=== PATIENT | female | born 1955 | race African-American/Black ===

== ENCOUNTER 2019-10-29 10:00 | Emergency (ER) | payer MEDICARE, SELFPAY ==
[2019-10-29 10:10] VITALS: BP 140/75; PULSE 65; RESP 18; TEMP 36.9; O2SAT 100
--- NOTE | 2019-10-29 10:33 | ED.URI ---
HPI - URI/Sore Throat General Chief Complaint: Upper Respiratory Infection Stated Complaint: ears itching/runny nose/cough Time Seen by Provider: 10/29/19 10:33 Source: patient and RN notes reviewed Mode of arrival: ambulatory Limitations: no limitations History of Present Illness HPI Narrative: A 64 y/o female, who is a former smoker and nondrinker, presents to the ED with multiple, worsening, URI symptoms for the past 10d , over week. She reports a productive cough, itchy ears, sneezing, and rhinorrhea. She notes that her grandson who lives with her was recently dx with influenza A. She also notes that Sudafed has helped relieve her symptoms. She denies any fevers, vomiting, weight loss, CP ,focal weakness, calf pain/ edema and any other medical complaints at this time. The patient has a prior sinus CT years ago with Dr. Echols- showing mild sinus ethmoid disease; she had a noncontributory chest x-ray within the last year. MD elicited complaint: other (Multiple) Pertinent past history: COPD and asthma Onset (ago): week(s) (1) Consistency: progressively worsening Relieving factors: OTC cold medicine (Sudafed) Context: sick contacts (grandson) Associated symptoms: rhinorrhea, cough (productive) and other (itchy ears and sneezing) Treatments prior to arrival: cold medicine Related Data Home Medications Medication Instructions Recorded Confirmed Albuterol Neb Tx 10/29/19 Resp Inhaler 10/29/19 Vitamin C 10/29/19 aspirin 81 mg PO DAILY 10/29/19 10/29/19 guaifenesin [Mucinex] 1,200 mg PO Q12H 10/29/19 10/29/19 lisinopril-hydrochlorothiazide 1 tablet PO DAILY 10/29/19 10/29/19 omeprazole 20 mg PO DAILY 10/29/19 10/29/19 pseudoephedrine HCl [Sudafed] 30 mg PO Q4-6H PRN 10/29/19 10/29/19 Allergies Allergy/AdvReac Type Severity Reaction Status Date / Time No Known Allergies Allergy Unknown Verified 10/29/19 10:19 Review of Systems Review of Systems: Narrative: General/Constitutional: No weight loss,fever Eyes: N0: Redness,discharge Ears/Nose/Throat: No: Epistaxis,ear discharge. Reports itchy ears, rhinorrhea, and sneezing. Respiratory: Denies: Hemoptysis. Reports a productive cough. Gastrointestinal: No Vomiting, Bleeding-rectal Skin: No Lumps, eruption Neurologic: No Focal Weakness,Sz Hematologic: Denies: Petechiae/Purpura Psychiatric: No: Suicida ideationl All Other Systems: Reviewed and Negative PMFSH Past Medical History Medical History (Updated 10/29/19 @ 14:04 by Jasiel Bailey MD) Anemia Anxiety Arthritis Asthma Bilateral carpal tunnel syndrome Bronchitis COPD (chronic obstructive pulmonary disease) DDD (degenerative disc disease) Depression DM (diabetes mellitus) Emphysema, unspecified Endometriosis GERD (gastroesophageal reflux disease) H/O: HTN (hypertension) History of irregular heartbeat History of rectal polyps IBS (irritable bowel syndrome) MVP (mitral valve prolapse) Psoriasis Shingles Surgical History Surgical History (Updated 10/29/19 @ 10:54 by Daniel Granados) History of appendectomy History of bilateral carpal tunnel release History of cholecystectomy History of dilation and curettage History of hysterectomy History of local excision of skin lesion History of oophorectomy Rt. Hx of tubal ligation Social History Social History (Updated 10/29/19 @ 10:54 by Daniel Granados) Smoking status: Former smoker Second hand tobacco smoke exposure: Yes Exam Narrative: Exam Narrative: General Appearance: Well appearing, Well nourished EYE: PERRLA, Conjunctiva clear Ears: Auditory canal normal, TM normal Nose: Rhinorrhea, Mucousal erythema Mouth/Throat: MM moist, Uvula midline, Pharyngeal erythema Neck: Supple, No adenopathy Respiratory: No respiratory distress, Breath sounds equal, Clear to auscultation Cardiovascular: RRR, No JVD Musculoskeletal: Non tender, Normal strength Skin: Warm, Dry Neurological: A&O x3, CN II-XII intact Psychiatric: Normal mood, N
== END 2019-10-29 10:49 | disposition home or self-care (01) ==
PROVIDERS: Emergency Provider Emergency Medicine; PCP Family Medicine
DX: J01.90 Acute sinusitis, unspecified (principal); Z87.891 Personal history of nicotine dependence; M19.90 Unspecified osteoarthritis, unspecified site; J44.9 Chronic obstructive pulmonary disease, unspecified; E11.9 Type 2 diabetes mellitus without complications; N80.9 Endometriosis, unspecified; K21.9 Gastro-esophageal reflux disease without esophagitis; I10 Essential (primary) hypertension; I34.1 Nonrheumatic mitral (valve) prolapse
CPT/HCPCS: 99203; G0463

== ENCOUNTER 2021-01-06 09:16 | Observation (INO) | payer MEDICARE, MEDICAID, SELFPAY ==
[2021-01-06] VITALS (11 sets, daily range): BP systolic 115–157; BP diastolic 50–100; PULSE 67–76; RESP 16–25; TEMP 36.1–36.6; O2SAT 94–100; BMI 50.9
--- NOTE | ~2021-01-06 | XR_ITS ---
EXAMINATION: XR hip RT 2V w AP pelvis DATE: 01/06/2021 12:07 INDICATION: Right hip pain. TECHNIQUE: An anteroposterior view of the pelvis and 2 views of right hip were obtained. COMPARISON: CT abdomen and pelvis 06/26/2019 FINDINGS: Bone alignment is normal. No fracture. There is mild osteoarthritis of the hips. There is m oderate lumbar spondylosis. Osteitis pubis is noted. IMPRESSION: 1. Mild osteoarthritis of the hips. Reviewed, dictated and finalized at location A.
--- NOTE | ~2021-01-06 | MR_ITS ---
EXAMINATION: MR lumbar spine wo/w con DATE: 01/07/2021 10:20 INDICATION: Low back pain. TECHNIQUE: Magnetic resonance imaging (MRI) of the lumbar spine was performed without and with 20 mL MultiHance intravenous contrast. Sequences included sagittal T2-weighted FSE, sagittal T2-weighted FS FSE, and sagittal and axial T1-weighted FSE. Postcontrast sequences included axial T2-weighted FSE a nd axial and sagittal T1-weighted FS FSE. COMPARISON: Lumbar spine MRI 12/24/2016, chest 2 views 05/27/2019 FINDINGS: There is 11 degrees dextroscoliosis of thoracolumbar spine. There are small ribs at T12. L5 is a transitional segment. There is mild chronic height loss of L5 vertebral body posteriorly. There is 3 mm anterolisthesis of L2 on L3, L3 on L4, and L4 on L5. Intervertebral disc heights are normal. The distal spinal cord signal intensity is normal. The conus medullaris is at T12-L1. The following disc levels are specifically discussed: L1-L2: The disc is bulging. There is severe right and moderate left facet joint osteoarthritis. There is mild bilateral neural foraminal stenosis. There is mild central canal stenosis. L2-L3: The disc is bulging. There is severe bilateral facet joint osteoarthritis. There is mild bilat eral neural foraminal stenosis. There is mild central canal stenosis. L3-L4: The disc is bulging. There is severe bilateral facet joint osteoarthritis. There is moderate b ilateral neural foraminal stenosis. There is mild central canal stenosis. L4-L5: The disc is bulging. There is severe bilateral facet joint osteoarthritis. There is moderate b ilateral neural foraminal stenosis. There is moderate central canal stenosis with stenosis of the lat eral recesses, right worse than left. L5-S1: The disc does not extend beyond the endplate margin. There is no facet joint osteoarthritis. T here is no neural foraminal stenosis. There is no central canal stenosis. IMPRESSION: 1. Moderate lumbar spondylosis with interval improvement in central canal stenosis at L3-L4 and worse estuardo of central canal stenosis at L4-L5. Reviewed, dictated and finalized at location A. IMPRESSION: 1. Moderate lumbar spondylosis with interval improvement in central canal steno sis at L3-L4 and worsening of central canal stenosis at L4-L5.
--- NOTE | ~2021-01-06 | XR_ITS ---
EXAMINATION: XR lumbar spine 2-3V DATE: 01/06/2021 12:07 INDICATION: Back pain. TECHNIQUE: 3 views of lumbar spine were obtained. COMPARISON: Chest 2 views 05/27/2019 FINDINGS: There are 12 pairs of ribs. L5 is a transitional segment. There is 3 mm anterolisthesis of L3 on L4. There is 12 degrees dextroscoliosis of thoracolumbar spine. Vertebral body heights are norm al. There is mildly decreased disc height at L3-L4 and L4-L5. There are endplate osteophytes at most levels. There is multilevel severe facet joint osteoarthritis. There are surgical clips in right abdo men. IMPRESSION: 1. Mild lumbar spondylosis. 2. Thoracolumbar dextroscoliosis. Reviewed, dictated and finalized at location A.
--- NOTE | 2021-01-06 10:52 | PC.NURSE ---
PT'S FAMILY MEMBER OUT TO NURSES STATION TO ASK FOR PAIN MEDS FOR MOTHER. STILL AWAITING PROVIDER TO SIGN UP FOR PT. COLTON MENJIVAR RN MADE AWARE.
--- NOTE | 2021-01-06 11:40 | ED.GENADULT ---
HPI - General Adult General Chief complaint: Extremity Problem,Nontraumatic Stated complaint: R HIP PAIN Time Seen by Provider: 01/06/21 10:52 Source: patient History of Present Illness HPI narrative: Patient is a 65 y/o female complaining of right posterior hip pain and back pain starting yesterday. She describes her pain as aching and rates it as 8/10. She took Tylenol, which did not help. There is no alleviating or exacerbating factor. Her pain radiates to her right leg. She is able to move her right leg. She is not able to walk due to pain. Related Data Home Medications Medication Instructions Recorded Confirmed Vitamin C 10/29/19 aspirin 81 mg PO DAILY 10/29/19 10/29/19 duloxetine mg PO 01/06/21 [id number] INHALATION 01/06/21 [Trelegy Ellipta] losartan-hydrochlorothiazide tablet 01/06/21 omeprazole 01/06/21 Allergies Allergy/AdvReac Type Severity Reaction Status Date / Time No Known Allergies Allergy Unknown Verified 01/06/21 10:18 Review of Systems Constitutional: Constitutional: Denies chills, Denies fever(s), Denies headache(s) and Denies weakness Eyes: Eyes: Denies blurry vision ENT: Denies headache(s) and Denies neck pain Cardiovascular: Cardiovascular: Denies chest pain and Denies dyspnea Respiratory: Respiratory: Denies cough and Denies dyspnea Gastrointestinal: Gastrointestinal: Denies abdominal pain, Denies diarrhea, Denies nausea and Denies vomiting Genitourinary: Genitourinary: Denies hematuria and Denies dysuria Musculoskeletal: Musculoskeletal: Reports back pain, Denies neck pain and Reports other (right hip pain) Neurologic: Denies headache(s) and Denies weakness [facility] Past Medical History Medical History Anemia Anxiety Arthritis Asthma Bilateral carpal tunnel syndrome Bronchitis COPD (chronic obstructive pulmonary disease) DDD (degenerative disc disease) Depression DM (diabetes mellitus) Emphysema, unspecified Endometriosis GERD (gastroesophageal reflux disease) H/O: HTN (hypertension) History of irregular heartbeat History of rectal polyps IBS (irritable bowel syndrome) MVP (mitral valve prolapse) Psoriasis Shingles Surgical History Surgical History History of appendectomy History of bilateral carpal tunnel release History of cholecystectomy History of dilation and curettage History of hysterectomy History of local excision of skin lesion History of oophorectomy Rt. Hx of tubal ligation Social History Social History Smoking status: Former smoker Second hand tobacco smoke exposure: Yes Exam Const: General: no acute distress and well developed Orientation/consciousness: oriented to person, oriented to place, oriented to time and patient oriented x3 HENMT: Head: normocephalic Ears: external ears normal General nose exam: Normal external nose present Eyes: General: appearance normal, both eyes and all related structures Conjunctivae: conjunctivae normal Neck: Neck: normal visual inspection and full ROM Chest: Chest palpation & inspection: normal inspection of the chest and no tenderness Resp: Effort & Inspection: normal respiratory effort Auscultation: clear to auscultation bilaterally Cardio: Rate: regular rate Rhythm: regular rhythm GI: GI Palp: No abdominal tenderness and Yes Soft to palpation Skin: General skin exam: normal color and turgor normal Neuro: General: oriented to person, oriented to place, oriented to time and patient oriented x3 Cognition (Neuro): normal cognition Extrem: General: normal to inspection, full ROM and no pedal edema Psych: Appearance: grossly normal Mental Status: mental status grossly normal Affect: normal affect Course Reevaluation(s) Reevaluation #1: Rechecked. Patient feels slightly better. However, she is still not able
[2021-01-06] MEDS: CYCLOBENZAPRINE HCL 10 MG TABLET PO (11:49)
[2021-01-06] MEDS: KETOROLAC 15 MG/ML VIAL (*BKC) IV PUSH (12:28)
[2021-01-06 12:31] LABS: Basophils Percent Auto 0.3 % (0.2-1.2); Eosinophils Absolute Auto 0.1 K/mm3 (0-0.3); Eosinophils Percent Auto 0.5 % (0-4.4); Hematocrit 36.4 % (37.0-47.0); Hemoglobin 11.8 g/dL (12.0-15.0); Immature Granulocyte Absolute 0.04 K/mm3 (0.00-0.031); Immature Granulocyte Percent A 0.4 % (0-0.5); Lymphocytes Absolute Auto 1.85 K/mm3 (0.9-3.2); Lymphocytes Percent Auto 18.7 % (18.3-44.2); Mean Corpuscular HGB Conc 32.4 g/dl (32-36); Mean Corpuscular Hemoglobin 29.4 pg (26-34); Mean Corpuscular Volume 90.5 fl (80-100); Mean Platelet Volume 9.8 fl (7.4-10.4); Monocytes Absolute Auto 0.6 K/mm3 (0.1-0.6); Monocytes Percent Auto 5.6 % (2.6-8.5); Neutrophils Absolute Auto 7.4 K/mm3 (1.3-6.7); Neutrophils Percent Auto 74.5 % (45.5-73.1); Platelet Count Result 293 k/mm3 (150-375); Red Blood Count 4.02 M/mm3 (4.2-5.4); White Blood Count 9.9 K/mm3 (4.5-10.0)
[2021-01-06 12:42] LABS: Anion Gap 2 mmol/L (8-16); Blood Urea Nitrogen 16 mg/dL (7-17); Carbon Dioxide 32 mmol/L (22-30); Chloride 103 mmol/L (98-107); Estimated CRCL calculation 107 ml/min; Estimated Glomerular Filt Rate > 60; Glucose 118 mg/dL (65-105); Potassium 3.9 mmol/L (3.4-5.0); Sodium 137 mmol/L (137-145)
--- NOTE | 2021-01-06 14:49 | PC.NURSE ---
Pt son called for update on pt condition and POC.
--- NOTE | 2021-01-06 14:55 | PC.NURSE ---
Pt daughter called for update on pt condition and POC.
[2021-01-06] MEDS: HYDROcodone/acetaminophen (*CRX) 5-325 MG TABLET 1 TAB PO (15:09)
[2021-01-06] MEDS: predniSONE 20 MG TABLET 60 MG PO (15:10)
--- NOTE | 2021-01-06 16:38 | PC.NURSE ---
Nurse unable to receive report at this time, will follow up.
--- NOTE | 2021-01-06 17:19 | ADMGEN ---
This patient, Keegan Amaya, was admitted to Medical Room 340-01. Patient/family oriented to hospital policies and general routines including ID bracelet, bed and alarms, visiting hours, pain management, procedures, bathroom and other care routines, personal items, smoking policy, room service/diet, and visiting hours. Information on how to activate the Rapid Response Team has been discussed. Patient/Family are encouraged to report perceived risks to care and to ask questions if they do not understand what they are told or what they should do.
--- NOTE | 2021-01-06 20:01 | PM.IMHP ---
H&P: HPI History of Present Illness Date/Time: 01/06/21 20:01Thikassi is a 65-year-old obese female patient who has had some sciatica pain in the past. The patient stated that she was feeling some twinges in her back but not really any pain. However yesterday the patient carried and some groceries including large amount of water 48 bottles in a packet and she said that when she started to have some pain in her back. The patient also was recently started on duloxetine and was concerned that this was causing her problems. The duloxetine was causing her to feel nauseated as well. The patient stated that she only had 1 pill and does not feel like she wants to continue with the because it makes her sick to her stomach. She has a history of COPD as well but is not short of breath. The patient stated she really did take any medication for her lower back pain the patient came in today because of right posterior hip pain and back pain that started yesterday after she was caring in her groceries. She told ER that she took some Tylenol and it did help. The patient stated that she uses some kind muscle cream that helps her back in the past. The patient was able to move her leg and she was not having any incontinence. She is not able to walk to the pain.The patient was given tordal , Flexeril, prednisone, and [place] in the emergency room. the patient is being admitted for observation status is. date of service 01/06/2021 Chief Complaint: Intractable back pain Review of Systems Review of Systems: All systems reviewed & are unremarkable except as noted in HPI and below Constitutional: Constitutional: Reports as per HPI and Reports no additional constitutional complaints Eyes: Eyes: Reports as per HPI and Reports no additional eye complaints ENT: Reports system reviewed and no additional complaints, except as documented and Reports Normal hearing present Cardiovascular: Cardiovascular: Reports no additional cardiovascular complaints Respiratory: Respiratory: Reports no additional respiratory complaints and Reports no additional respiratory complaints Gastrointestinal: Gastrointestinal: Reports as per HPI and Reports no additional gastrointestinal complaints Musculoskeletal: Musculoskeletal: Reports no additional musculoskeletal complaints Integumentary/Breasts: Skin/Breast: Reports system reviewed and no additional complaints, except as docu and Reports as per HPI Neurologic: Reports system reviewed and no additional complaints, except as documented, Reports as per HPI and Reports Normal hearing present Psychiatric: Psychiatric: Reports no additional psychiatric complaints and Reports as per HPI Endocrine: Endocrine: Reports no additional endocrine complaints Hematologic/Lymphatic: Hematologic/Lymphatic: Reports no additional hematologic/lymphatic complaints Allergic/Immunologic: Allergic/Immunologic: Reports no additional allergic/immunologic complaints [facility] Past Medical History Medical History (Updated 01/06/21 @ 20:08 by Linda Baez NP) Anemia Anxiety Arthritis Asthma Bilateral carpal tunnel syndrome Bronchitis COPD (chronic obstructive pulmonary disease) DDD (degenerative disc disease) Depression DM (diabetes mellitus) Emphysema, unspecified Endometriosis GERD (gastroesophageal reflux disease) H/O: HTN (hypertension) History of irregular heartbeat History of rectal polyps IBS (irritable bowel syndrome) MVP (mitral valve prolapse) FAISAL treated with BiPAP Psoriasis Shingles Surgical History Surgical History History of appendectomy History of bilateral carpal tunnel release History of cholecystectomy History of dilation and curettage History of hysterectomy History of local excision of skin lesion History of oophorectomy Rt. Hx of tubal ligation Family History Family History (Updated 01/06/21 @ 20:09 by Linda Beaz NP) Father Malignant neoplasm of pro
[2021-01-06 21:28] LABS: Glucose Point of Care 189 (65-105)
[2021-01-06 21:38] LABS: Add Urine Microscopic? YES; Appearance Urine Cloudy (Clear); Bacteria Urine Trace /hpf; Bilirubin Urine Negative (Negative); Blood Urine Negative (Negative); Color Urine Straw (Yellow); Glucose Urine UA Negative (Negative); Ketones Urine Negative (Negative); Leukocyte Esterase Ur Negative LEU/UL (Negative); Nitrate Urine Negative (Negative); Protein Urine Negative (Negative); RBC Urine 0-2 /hpf (0-2); Specific Grav Ur 1.006 (1.001-1.035); Squamous Epithelial Cell Urine Many /hpf (Few); Urobilinogen Urine Negative mg/dL (<2.0)
[2021-01-07 03:21] VITALS: PULSE 66; RESP 19; O2SAT 93
[2021-01-07 04:30] VITALS: BP 149/86; PULSE 78; RESP 18; TEMP 36.1; O2SAT 94
[2021-01-07 06:33] LABS: Basophils Percent Auto 0.1 % (0.2-1.2); Eosinophils Percent Auto 0.1 % (0-4.4); Hematocrit 34.6 % (37.0-47.0); Immature Granulocyte Absolute 0.03 K/mm3 (0.00-0.031); Immature Granulocyte Percent A 0.3 % (0-0.5); Lymphocytes Absolute Auto 1.39 K/mm3 (0.9-3.2); Mean Corpuscular HGB Conc 31.8 g/dl (32-36); Mean Corpuscular Hemoglobin 29.2 pg (26-34); Mean Corpuscular Volume 91.8 fl (80-100); Mean Platelet Volume 10.1 fl (7.4-10.4); Monocytes Absolute Auto 0.6 K/mm3 (0.1-0.6); Neutrophils Absolute Auto 7.3 K/mm3 (1.3-6.7); Neutrophils Percent Auto 78.5 % (45.5-73.1); Platelet Count Result 285 k/mm3 (150-375); Red Blood Count 3.77 M/mm3 (4.2-5.4); Red Cell Distribution Width 14.8 % (11.5-14.5); White Blood Count 9.3 K/mm3 (4.5-10.0)
[2021-01-07 06:51] LABS: Alanine Aminotransferase 12 U/L (4-35); Albumin Level 3.6 g/dL (3.5-5.1); Alkaline Phosphatase 115 U/L (38-126); Anion Gap 4 mmol/L (8-16); Aspartate Amino Transferase 20 U/L (14-36); Bilirubin,Total 0.2 mg/dL (0.2-1.3); Blood Urea Nitrogen 17 mg/dL (7-17); CRP 4.1 mg/dL (<1.0); Calcium 9.2 mg/dL (8.4-10.2); Carbon Dioxide 29 mmol/L (22-30); Chloride 104 mmol/L (98-107); Estimated CRCL calculation 124 ml/min; Estimated Glomerular Filt Rate > 60; Glucose 136 mg/dL (65-105); Magnesium 1.9 mg/dL (1.6-2.3); Potassium 3.9 mmol/L (3.4-5.0); Sodium 137 mmol/L (137-145)
[2021-01-07 06:59] LABS: Hemoglobin A1C 5.8 % (<5.7)
[2021-01-07 07:40] LABS: Vitamin D 25 Hydroxy 18.6 ng/mL
[2021-01-07] MEDS: FLUTICASONE/UMECLIDIN/VILANTER 100-62.5-25 MCG ELLIPTA 1 PUFF INHALATION (07:45)
[2021-01-07 07:54] LABS: Thyroid Stimulating Hormone Reflex 0.328 uIU/mL (0.465-4.68)
[2021-01-07 08:22] LABS: Glucose Point of Care 115 (65-105)
[2021-01-07 10:17] LABS: Free T4 Free Thyroxine Reflex 0.77 ng/dL (0.78-2.19)
[2021-01-07] MEDS: hydroCHLOROthiazide 12.5 MG CAPSULE PO (10:24)
[2021-01-07] MEDS: LOSARTAN POTASSIUM 100 MG TABLET PO (10:24)
[2021-01-07] MEDS: PANTOPRAZOLE 40 MG TABLET PO (10:24)
[2021-01-07] MEDS: HYDROcodone/acetaminophen (*CRX) 5-325 MG TABLET 1 TAB PO (10:24)
[2021-01-07] MEDS: ASPIRIN 81 MG ENTERIC TABLET PO (10:24)
[2021-01-07] MEDS: predniSONE 20 MG TABLET 60 MG PO (10:25)
[2021-01-07 11:55] LABS: Glucose Point of Care 100 (65-105)
[2021-01-07 14:00] VITALS: BP 148/86; PULSE 70; RESP 18; TEMP 35.7; O2SAT 100
--- NOTE | 2021-01-07 16:49 | PM.DS ---
DS: Admitting Diagnosis Admitting Diagnosis Admitting Diagnosis: low back stain/siatica DS: Discharge Diagnosis Discharge Diagnosis (1) Right sided sciatica: Code(s): M54.31 - Sciatica, right side Status: Acute (2) FAISAL treated with BiPAP: Code(s): G47.33 - Obstructive sleep apnea (adult) (pediatric) Status: Chronic (3) Anemia: Code(s): D64.9 - Anemia, unspecified Status: Chronic (4) Anxiety: Code(s): F41.9 - Anxiety disorder, unspecified Status: Chronic (5) COPD (chronic obstructive pulmonary disease): Code(s): J44.9 - Chronic obstructive pulmonary disease, unspecified Status: Chronic (6) Depression: Code(s): F32.9 - Major depressive disorder, single episode, unspecified Status: Chronic (7) GERD (gastroesophageal reflux disease): Code(s): K21.9 - Gastro-esophageal reflux disease without esophagitis Status: Chronic (8) H/O: HTN (hypertension): Code(s): Z86.79 - Personal history of other diseases of the circulatory system Status: Chronic (9) Low back strain: Code(s): S39.012A - Strain of muscle, fascia and tendon of lower back, initial encounter Status: Acute DS: Summary Hospital Course Hospital Course: Patient is a 65-year-old female with a history of borderline diabetes, sciatica, sleep apnea, and hypertension who presented emergency room for hip and back pain starting the day prior. The patient states that the day prior she was caring in 48 bottles of water when she felt her back pull and strain. She could not tolerate the pain so she came into the emergency room. She had associated symptoms of sciatica down her right leg which is unchanged. She had no new symptoms of numbness or tingling or any bowel or bladder incontinence. In the ER her vitals were temperature 36.6? C, pulse 76, respiratory rate 16, blood pressure 145/90, pulse ox 99 on room air. Initial white blood cell count 9.9, hemoglobin 11.8, hematocrit 36.4, platelets 293. BMP relatively within normal limits. Patient had a hip x-ray showed mild osteoarthritis. Lumbar spine x-ray showed mild lumbar spondylosis as well as thoracolumbar dextroscoliosis. Patient was started on prednisone but because of her pain, she was admitted to the hospital. There is an MRI of her lumbar spine which showed moderate lumbar spondylosis with interval improvement central canal stenosis at L3-L4 and worsening central canal stenosis of L4-L5 which is characterized as moderate. The next day she was feeling much better. She saw PT and OT and was able to walk down the [place] without much pain. She had a little tingling to her right leg which she says is chronic and unchanged. She says that she has hurt her back like this in the past and has used cream which helped her prior. I reviewed back stretching exercises and to not lift so many groceries at once. She did not feel like she needed additional physical therapy and PT agreed. He is going to take the Medrol Dosepak and follow up with her primary care physician. She was also found to be deficient in vitamin-D while hospitalized and this was supplemented. Her TSH was low as was her T4. Could be due to acute illness, I recommend she repeat this in 6 weeks with her primary care physician and the order has been placed. Overall, the patient was feeling much better and ready for discharge. She was educated about the worrisome signs and symptoms come back to emergency room for was discharged stable condition. Status at Discharge Functional status at discharge: independent ambulation Overall status at discharge: patient is back to baseline Time Spent with Patient Time attestation: Total time spent providing and/or coordinating discharge services:40 min Time spent: Greater than 30 minutes Exam Narrative: Exam Narrative: General: Well developed well nourished patient in NAD HEENT: normocephalic Neck: supple Neuro: Alert and orient
== END 2021-01-07 16:11 | disposition home or self-care (01) ==
LOC: ANHED 10:52 → ANH3MED 15:58
PROVIDERS: Nurse Practitioner; Physician Assistant; Admitting Provider Family Medicine; Emergency Provider Emergency Medicine; PCP Internal Medicine; Visit Provider Internal Medicine
DX: M54.31 Sciatica, right side (principal); S39.012A Strain of muscle, fascia and tendon of lower back, initial encounter; X50.0XXA Overexertion from strenuous movement or load, initial encounter; G47.33 Obstructive sleep apnea (adult) (pediatric); D64.9 Anemia, unspecified; E66.9 Obesity, unspecified; F41.9 Anxiety disorder, unspecified; F32.9 Major depressive disorder, single episode, unspecified; I10 Essential (primary) hypertension; K21.9 Gastro-esophageal reflux disease without esophagitis; J44.9 Chronic obstructive pulmonary disease, unspecified; R73.03 Prediabetes; M47.816 Spondylosis without myelopathy or radiculopathy, lumbar region; M16.0 Bilateral primary osteoarthritis of hip; Z68.43 Body mass index [BMI] 50.0-59.9, adult; Z87.891 Personal history of nicotine dependence
CPT/HCPCS: 36415; 72100; 72158; 73502; 80048; 80053; 81001; 82306; 82948; 83036; 83735; 84439; 84443; 85025; 86140; 96374; 97161; 97165; 99285; A9270; A9577; G0378; J1885; J7512

== ENCOUNTER → 2021-03-17 12:17 | Outpatient (CLI) | payer MEDICARE, MEDICAID, SELFPAY ==
--- NOTE | ~2021-03-17 | DEXA_ITS ---
Bone Density Report Name: Keegan Amaya Age: 65 Sex: Female Ethnicity: Black Date of : 1955 Indication: postmenopausal; screening for osteoporosis; asthma or emphysema; hysterectomy; Referring Provider: EliseTracy Study: Bone densitometry was performed. Exam Date: March 17, 2021 Accession number: [id number] Bone Density: Region BMD T-score Z-score Classification AP Spine (L1-L4) 1.321 2.5 3.5 Normal Femoral Neck (Left) 1.088 2.2 2.3 Normal Total Hip (Left) 1.318 3.1 2.8 Normal Femoral Neck (Right) 1.035 1.7 1.9 Normal Total Hip (Right) 1.194 2.1 2.0 Normal Total Hip Mean 1.256 2.6 2.4 Normal World Health Organization criteria for BMD impression classify patients as: Normal (T-score at or above -1.0), Osteopenia (T-score between -1.0 and -2.5), or Osteoporosis (T-score at or below -2.5). 10-year Fracture Risk: FRAX not reported because: All T-scores for Spine Total, Hip Total, Femoral Neck at or above -1.0 Clinical Information Provided by Patient: Has used the following medications: Vitamin D Has the following medical conditions: Asthma or Emphysema, Hysterectomy Menopause Age: 55 No regular weight bearing exercise Drinks caffeinated beverages Onset of menses at age 12 Number of children 5 Impression: The patient has normal bone mass. Discussion: BONE DENSITY IS ABOVE THE MINIMUM DESIRABLE LEVEL AT ALL SKELETAL SITES TESTED. This patient?s bone mineral density is above the minimum desirable level (T-score -1.0 or better) at all sites measured. The patient should follow a healthful lifestyle (good nutrition with adequate calcium and vitamin D, and appropriate weight-bearing exercise). Follow-Up: Consider repeating this study in 5 years or sooner if there is some new clinical indication. Reported by: [facility] on 03/17/2021 12:57:00 PM. Reviewed, dictated and finalized at location AJacquelyn COOLEY
== END ==
PROVIDERS: PCP Internal Medicine; Visit Provider Internal Medicine
DX: Z78.0 Asymptomatic menopausal state (principal)
CPT/HCPCS: 77080

== ENCOUNTER 2021-05-16 12:04 | Emergency (ER) | payer MEDICARE, MEDICAID, SELFPAY ==
[2021-05-16 12:14] VITALS: BP 137/81; PULSE 75; RESP 18; TEMP 36.6; O2SAT 98
[2021-05-16 12:16] VITALS: BP 137/81; PULSE 75; RESP 18; TEMP 36.6; O2SAT 98
--- NOTE | 2021-05-16 13:08 | ED.GENADULT ---
HPI - General Adult General Chief complaint: Unspecified Stated complaint: tasting blood in mouth Time Seen by Provider: 05/16/21 12:57 Source: patient and RN notes reviewed Mode of arrival: ambulatory Limitations: no limitations History of Present Illness HPI narrative: Patient presents today complaining that she is tasting blood in her mouth over the last 2 months. States she believed that she has bad sinuses . States the blood in her mouth is most prominent in the mornings. Denies epistaxis. Denies painful teeth. States she wears a CPAP at night and does have humidification for it. States she drinks lots of water. She is not on a blood thinner. During the 2 months that she has been tasting blood in her mouth she has not been evaluated previously. MD complaint: Tasting blood Related Data Home Medications Medication Instructions Recorded Confirmed aspirin 81 mg PO DAILY 10/29/19 01/06/21 Trelegy Ellipta 100 inh INHALATION DAILY 01/06/21 01/06/21 duloxetine 30 mg PO DAILY 01/06/21 01/06/21 losartan-hydrochlorothiazide 12.5 tablet PO DAILY 01/06/21 01/06/21 omeprazole 20 mg PO DAILY 01/06/21 01/06/21 albuterol sulfate INHALATION 05/16/21 escitalopram oxalate mg 05/16/21 gabapentin 05/16/21 Allergies Allergy/AdvReac Type Severity Reaction Status Date / Time No Known Allergies Allergy Unknown Verified 01/06/21 10:18 Review of Systems Review of Systems: CONSTITUTIONAL: Denies body aches, fever, chills, or sweats. EYES: Denies visual changes, redness, or discharge. ENT: Denies rhinorrhea, congestion, sore throat, or otalgia. Tasting blood in her mouth CARDIOVASCULAR: Denies chest pain, palpitations, or edema. RESPIRATORY: Denies cough or dyspnea. GASTROINTESTINAL: Denies abdominal pain, nausea, vomiting, or diarrhea. GENITOURINARY: Denies dysuria or hematuria. SKIN: Denies rash, itching, or wounds. MUSCULOSKELETAL: Denies back pain, joint pain, or myalgia. NEUROLOGIC: Denies headache, numbness, tingling, or weakness. PSYCH: Denies depression or anxiety. [facility] Past Medical History Medical History Anemia Anxiety Arthritis Asthma Bilateral carpal tunnel syndrome Bronchitis COPD (chronic obstructive pulmonary disease) DDD (degenerative disc disease) Depression DM (diabetes mellitus) Emphysema, unspecified Endometriosis GERD (gastroesophageal reflux disease) H/O: HTN (hypertension) History of irregular heartbeat History of rectal polyps IBS (irritable bowel syndrome) MVP (mitral valve prolapse) FAISAL treated with BiPAP Psoriasis Shingles Surgical History Surgical History History of appendectomy History of bilateral carpal tunnel release History of cholecystectomy History of dilation and curettage History of hysterectomy History of local excision of skin lesion History of oophorectomy Rt. Hx of tubal ligation Family History Family History Father Malignant neoplasm of prostate Mother Hypertension Diabetes mellitus Social History Social History Social History: the patient is . The patient initially had 5 children but 1 14 hours after due to placenta abruption. The patient is disabled. She desires to have her daughter is a durable power family law attorney for healthcare. She would like to be a full code. The patient used marijuana in the past but does not anymore and she used to smoke cigarettes as well but quit. She does not use any alcohol or illicit drugs. Smoking status: Former smoker Second hand tobacco smoke exposure: Yes Alcohol intake: never Substance use: never Substance use type: does not use Gender identity (if verbalized by the patient): Female Sexual Orientation (if Verbalized by the Patient): Straight or He
== END 2021-05-16 13:15 | disposition home or self-care (01) ==
PROVIDERS: Emergency Provider Nurse Practitioner; PCP Internal Medicine
DX: R04.0 Epistaxis (principal); Z87.891 Personal history of nicotine dependence; M19.90 Unspecified osteoarthritis, unspecified site; J44.9 Chronic obstructive pulmonary disease, unspecified; E11.9 Type 2 diabetes mellitus without complications; N80.9 Endometriosis, unspecified; K21.9 Gastro-esophageal reflux disease without esophagitis; I10 Essential (primary) hypertension; I34.1 Nonrheumatic mitral (valve) prolapse; Z79.82 Long term (current) use of aspirin
CPT/HCPCS: 99211; G0463

== ENCOUNTER → 2021-08-25 07:50 | Outpatient (CLI) | payer MEDICARE, MEDICAID, SELFPAY ==
--- NOTE | ~2021-08-25 | US_ITS ---
EXAMINATION: US right upper quadrant EXAM DATE: 08/25/2021 08:17 INDICATION: Epigastric pain TECHNIQUE: Multiple grayscale and Doppler images of the abdomen right upper quadrant were obtained (b y a technologist who performed the scan) and subsequently reviewed. There is no prior study for byron little. FINDINGS: The pancreatic head and body are normal in appearance. The pancreatic tail is not visualized. Poor acoustic window to evaluate the liver but no definite focal lesions identified. There is no evidence of intrahepatic biliary duct dilation. Portal venous flow was seen in the hepatopedal, normal direc tion and has normal Doppler waveform. No right-sided hydronephrosis. Common bile duct measures 5 mm, which is normal. The gallbladder fossa is unremarkable. IMPRESSION: 1. Unremarkable abdominal ultrasound exam. Reviewed, dictated and finalized at location D. Y STITCHER
--- NOTE | ~2021-08-25 | MM_ITS ---
EXAMINATION: MM screening amy BI w gunjan HISTORY: Screening mammogram TECHNIQUE: Craniocaudal and mediolateral oblique 3-D tomosynthesis images were obtained and synthetic 2-D images were generated. CAD analysis was submitted and interpreted. COMPARISON: No prior mammogram is available for comparison at this institution. BREAST PARENCHYMAL COMPOSITION: The breasts are almost entirely fatty. FINDINGS: RIGHT BREAST: There are asymmetries in the middle and posterior third of the breast in line with the nipple axis on the mediolateral oblique view at 11.1 cm and 16.5 cm depth. LEFT BREAST: There is no evidence of suspicious mass, calcification, or architectural distortion to s uggest malignancy. IMPRESSION: 1. Right breast asymmetries which may represent the patient's baseline however no comparison is curre ntly available. 2. Comparison with prior mammograms is necessary. BI-RADS Category 0: Incomplete: Needs comparison with prior mammograms. Reviewed, dictated and finalized at location A. DIE MAKER IMPRESSION: 1. Right breast asymmetries which may represent the patient's baseline however no comparison is currently available. 2. Comparison with prior mammograms is necessary. BI-RADS Category 0: Incomplete: Needs comparison with prior mammograms.
== END ==
PROVIDERS: PCP Internal Medicine; Visit Provider Internal Medicine
DX: Z12.31 Encounter for screening mammogram for malignant neoplasm of breast (principal); R10.13 Epigastric pain; R92.8 Other abnormal and inconclusive findings on diagnostic imaging of breast
CPT/HCPCS: 76705; 77063; 77067

== ENCOUNTER 2022-01-12 00:06 | Day surgery (SDC) | payer MEDICARE, MEDICAID, SELFPAY ==
[2021-12-28 15:07] VITALS: BMI 52.0
[2022-01-12 11:47] VITALS: BP 166/77; PULSE 77; RESP 18; TEMP 36.4; O2SAT 99
[2022-01-12] MEDS: LACTATED RINGERS 1,000 ML 150 ML IV CONT (12:00)
--- NOTE | 2022-01-12 12:48 | WPDANESEPPF ---
Anes - Initial Pre Proc Eval Procedure: Operation Date: 01/12/22 13:00 Proposed Procedures p Esophagogastroduodenoscopy - Brian Watt MD Date/Time: 01/12/22 12:48 Surgeon: Brian Watt MD Pre Op Diagnosis: GERD Patient Data Age: 66 Gender: F Height: 1.57 m Weight: 129 kg Last Vital Signs Temp 97.5 F L 01/12/22 11:47 Pulse 77 01/12/22 11:47 Resp 18 01/12/22 11:47 BP 166/77 H 01/12/22 11:47 Pulse Ox 99 01/12/22 11:47 Allergies Allergy/AdvReac Type Severity Reaction Status Date / Time No Known Allergies Allergy Unknown Verified 01/12/22 11:47 Home Medications Medication Instructions Recorded Confirmed Type aspirin 81 mg PO DAILY 10/29/19 12/28/21 History Trelegy Ellipta 100 inh INHALATION DAILY 01/06/21 12/28/21 History losartan-hydrochlorothiazide 12.5 tablet PO DAILY 01/06/21 12/28/21 History omeprazole 20 mg PO DAILY 01/06/21 12/28/21 History ergocalciferol (vitamin D2) 1,250 mcg PO WEEKLY #4 cap 01/07/21 12/28/21 Rx albuterol sulfate 2 puff INHALATION PRN 05/16/21 12/28/21 History gabapentin 100 mg PO DAILY 05/16/21 12/28/21 History Vitamin D3 1 tab-cap PO DAILY 12/28/21 12/28/21 History Patient hx anesthesia problems: none Family hx anesthesia problems: none Results Review: All pre-operative results and documents have been reviewed as part of the pre-operative evaluation. [facility] Past Medical History Medical History (Updated 10/29/21 @ 10:59 by Brian Watt MD) Anemia Anxiety Arthritis Asthma Bilateral carpal tunnel syndrome Bronchitis Colon cancer screening COPD (chronic obstructive pulmonary disease) DDD (degenerative disc disease) Depression DM (diabetes mellitus) Emphysema, unspecified Endometriosis Epigastric pain GERD (gastroesophageal reflux disease) H/O: HTN (hypertension) History of irregular heartbeat History of rectal polyps IBS (irritable bowel syndrome) MVP (mitral valve prolapse) FAISAL treated with BiPAP Psoriasis Shingles Surgical History Surgical History History of appendectomy History of bilateral carpal tunnel release History of cholecystectomy History of dilation and curettage History of hysterectomy History of local excision of skin lesion History of oophorectomy Rt. Hx of tubal ligation Family History Family History Father Malignant neoplasm of prostate Mother Hypertension Diabetes mellitus Sibling Family history of elevated blood lipids Family history of diabetes mellitus in first degree relative Father Family history of diabetes mellitus in first degree relative Patient's father is Other Family history of malignant neoplasm of cervix Family history of malignant neoplasm of male breast Social History Social History Social History: the patient is . The patient initially had 5 children but 1 14 hours after due to placenta abruption. The patient is disabled. She desires to have her daughter is a durable power trademark attorney for healthcare. She would like to be a full code. The patient used marijuana in the past but does not anymore and she used to smoke cigarettes as well but quit. She does not use any alcohol or illicit drugs. Smoking packs per day: 2 Smoking cigarettes per day: 40.0 Years smoked: 30 Smoking pack-years: 60.00 Smoking status: Former smoker Second hand tobacco smoke exposure: Yes Alcohol intake: never Substance use: never Substance use type: does not use Gender identity (if verbalized by the patient): Female Sexual Orientation (if Verbalized by the Patient): Straight or Heterosexual Spiritual care concerns: No Anes - Eval Final PreProcedure Day of Procedure 01/12/22 12:48 Patient weight: super morbidly obese
--- NOTE | 2022-01-12 13:02 | PM.HPGS ---
History of Present Illness History of Present Illness Consent: Risks, benefits, and alternatives have been discussed and questions answered. Patient agrees to proceed with procedure. Chief complaint: GERD Narrative: Keegan Amaya is a 66 year old female with epigastric pain and gerd, using omeprazole and tums as needed. She was treated in the past for H pylori. Review of Systems Constitutional: Constitutional: Denies headache(s) and Denies weakness Eyes: Eyes: Denies blurry vision ENT: Reports Normal hearing present, Denies headache(s) and Denies neck pain Cardiovascular: Cardiovascular: Denies chest pain and Denies dyspnea Respiratory: Respiratory: Denies dyspnea Gastrointestinal: Gastrointestinal: Reports no additional gastrointestinal complaints Genitourinary: Genitourinary: Denies dysuria Musculoskeletal: Musculoskeletal: Denies neck pain Integumentary/Breasts: Skin/Breast: Denies dry skin Neurologic: Reports Normal hearing present, Denies headache(s) and Denies weakness Psychiatric: Psychiatric: Denies anxiety Endocrine: Endocrine: Denies change in body appearance Hematologic/Lymphatic: Hematologic/Lymphatic: Denies easy bleeding Allergic/Immunologic: Allergic/Immunologic: Denies urticaria PMF Past Medical History Medical History (Updated 10/29/21 @ 10:59 by Brian Watt MD) Anemia Anxiety Arthritis Asthma Bilateral carpal tunnel syndrome Bronchitis Colon cancer screening COPD (chronic obstructive pulmonary disease) DDD (degenerative disc disease) Depression DM (diabetes mellitus) Emphysema, unspecified Endometriosis Epigastric pain GERD (gastroesophageal reflux disease) H/O: HTN (hypertension) History of irregular heartbeat History of rectal polyps IBS (irritable bowel syndrome) MVP (mitral valve prolapse) FAISAL treated with BiPAP Psoriasis Shingles Surgical History Surgical History History of appendectomy History of bilateral carpal tunnel release History of cholecystectomy History of dilation and curettage History of hysterectomy History of local excision of skin lesion History of oophorectomy Rt. Hx of tubal ligation Family History Family History Father Malignant neoplasm of prostate Mother Hypertension Diabetes mellitus Sibling Family history of elevated blood lipids Family history of diabetes mellitus in first degree relative Father Family history of diabetes mellitus in first degree relative Patient's father is Other Family history of malignant neoplasm of cervix Family history of malignant neoplasm of male breast Social History Social History Social History: the patient is . The patient initially had 5 children but 1 14 hours after due to placenta abruption. The patient is disabled. She desires to have her daughter is a durable power staff attorney for healthcare. She would like to be a full code. The patient used marijuana in the past but does not anymore and she used to smoke cigarettes as well but quit. She does not use any alcohol or illicit drugs. Smoking packs per day: 2 Smoking cigarettes per day: 40.0 Years smoked: 30 Smoking pack-years: 60.00 Smoking status: Former smoker Second hand tobacco smoke exposure: Yes Alcohol intake: never Substance use: never Substance use type: does not use Gender identity (if verbalized by the patient): Female Sexual Orientation (if Verbalized by the Patient): Straight or Heterosexual Spiritual care concerns: No Meds Home Medications and Allergies Home Medications Medication Instructions Recorded Confirmed Type aspirin 81 mg PO DAILY 10/29/19 12/28/21 History Trelegy Ellipta 100 inh INHALATION DAILY 01/06/21 12/28/21 History losartan-hydrochlorot
[2022-01-12 13:24] VITALS: BP 107/54; PULSE 79; RESP 19; O2SAT 98
[2022-01-12 13:34] VITALS: BP 123/64; PULSE 69; RESP 22; O2SAT 100
[2022-01-12 13:44] VITALS: BP 120/59; PULSE 68; RESP 18; O2SAT 99
== END 2022-01-12 13:54 | disposition home or self-care (01) ==
PROVIDERS: PCP Internal Medicine; Visit Provider Internal Medicine Gastroenterology
PROC: 0DJ08ZZ Inspection of Upper Intestinal Tract, Via Natural or Artificial Opening Endoscopic (ICD-10-PCS; CPT 43235; principal; 2022-01-12 13:00)
DX: K21.9 Gastro-esophageal reflux disease without esophagitis (principal); K29.50 Unspecified chronic gastritis without bleeding; I10 Essential (primary) hypertension; I34.1 Nonrheumatic mitral (valve) prolapse; E11.9 Type 2 diabetes mellitus without complications; J44.9 Chronic obstructive pulmonary disease, unspecified; L40.9 Psoriasis, unspecified; G47.33 Obstructive sleep apnea (adult) (pediatric); F41.9 Anxiety disorder, unspecified; F32.A Depression, unspecified; Z87.891 Personal history of nicotine dependence; Z86.010 Personal history of colon polyps
CPT/HCPCS: 43239; 87081; 88305; 88342; J2704; J7120

== ENCOUNTER → 2022-01-14 09:15 | Outpatient (CLI) | payer MEDICARE, MEDICAID, SELFPAY ==
--- NOTE | ~2022-01-14 | MM_ITS ---
EXAMINATION: MM diagnostic amy RT w gunjan HISTORY: Right breast pain. Right breast asymmetries reported on 08/25/2021 screening mammogram. TECHNIQUE: ML, MLO and CC 3-D tomosynthesis images of the right breast were performed and synthetic 2 -D images were generated. CAD analysis was submitted and interpreted. COMPARISON: 08/25/2021, 09/03/2020, 08/27/2019mammogram examinations FINDINGS: Occasional benign calcifications. No suspicious mass or architectural distortion, malignant calcification, skin thickening or retractio n or significant new or developing density is detected. IMPRESSION: 1. No mammographic insulin 3 2. Routine mammographic screening is recommended BI-RADS Category 2: Benign finding(s). Reviewed, dictated and finalized at location A.
== END ==
PROVIDERS: PCP Internal Medicine; Visit Provider Internal Medicine
DX: R92.8 Other abnormal and inconclusive findings on diagnostic imaging of breast (principal)
CPT/HCPCS: 77061; 77065; G0279

== ENCOUNTER 2022-03-17 14:06 | Outpatient (CLI) | payer MEDICARE, MEDICAID, SELFPAY ==
--- NOTE | 2022-03-17 17:57 | WPDPFTINT ---
PFT Procedure Performed PFT Procedure Performed Spirometry with Pre/Post Bronchodilator Plethysmography (Lung Vol) Diffusing Cap (DLCO) Flow Vol Loop PFT Interpretation This is a pulmonary function test with pre and post-bronchodilator spirometry, plethysmography and diffusing capacity. The test was performed and results interpreted in accordance with the 2019 and 2005 ATS/ERS Task Force guidelines respectively using the Global Lung Function Initiative-2012 reference equations. Patient demonstrated good effort and cooperation. Reproducibility criteria were met. The quality of the pre bronchodilator spirometry maneuver was Grade A and post bronchodilator spirometry maneuver was Grade A. Findings: Spirometry: The contour the inspiratory and expiratory flow tracing are normal. The pre bronchodilator FVC is 2.16 L, 88% predicted. The pre bronchodilator FEV1 is 1.75 L, 90% predicted. The pre bronchodilator FEV1: FVC ratio is 81%. The post bronchodilator FVC is 2.20 L, representing a 2% increase. The post bronchodilator FEV1 is 1.78 L, representing a 2% increase. The post bronchodilator FEV1: FVC ratio is 81%. Plethysmography: The total lung capacity is 3.54 L, 82% predicted. Functional residual capacity is 1.77 L, 67% predicted. The residual volume is 1.38 L, 72% predicted. Diffusion capacity: Diffusing capacity unadjusted for hemoglobin and carboxyhemoglobin is 16.3, 80% predicted. The diffusing capacity adjusted for alveolar volume is 5.34, 121% predicted. Impression: The spirometry is normal without evidence of an obstructive abnormality. There is no significant improvement after inhaling a single dose of albuterol. The lung volumes are normal. The diffusing capacity is normal. There are no prior studies for comparison
== END 2022-03-17 14:07 | disposition home or self-care (01) ==
LOC: ANHPFT 14:11
PROVIDERS: PCP Internal Medicine; Visit Provider Student in an Organized Health Care Education/Training Program
DX: J44.9 Chronic obstructive pulmonary disease, unspecified (principal)
CPT/HCPCS: 94060; 94726; 94729

== ENCOUNTER 2022-08-07 15:35 | Emergency (ER) | payer MEDICARE, MEDICAID, SELFPAY ==
--- NOTE | ~2022-08-07 | CT_ITS ---
EXAMINATION: CTA chest PE abdomen pel DATE: 08/07/2022 17:38 INDICATION: elevated dimer,SOB,R sided chest pain,epigastric discomfort TECHNIQUE: Computed tomography angiography (CTA) of the chest was performed with 200 mL Omnipaque-350 intravenous contrast timed to evaluate the pulmonary arteries, followed by portal venous phase imagi ng of the abdomen and pelvis. Initial pulmonary arterial timing bolus was mistimed requiring reinject ion. Coronal maximum intensity projection 3D-reconstructions were created by the technologist. The do se-length product (DLP) was 2251.79 mGy-cm. Automated exposure control and iterative reconstruction t echnique were employed. COMPARISON: 05/27/2019. FINDINGS: CHEST: Lung parenchyma and airways: Bilateral dependent atelectasis. Pleura: Unremarkable. Thoracic inlet, axillae and chest wall: Unremarkable. Thoracic aorta: Normal. Mediastinum: Small hiatal hernia. Heart and pericardium: Normal. Coronary artery calcifications: Absent. Thoracic bones: No acute osseous finding. Pulmonary arteries: Study quality: Limited by body habitus, beam hardening, and quantum mottle, as we ll as respiratory motion artifact, particularly in the lower lobes. No pulmonary emboli detected. ABDOMEN/PELVIS: Liver: Right liver lobe hypodensity, likely representing an involuted liver cyst. Biliary/Gallbladder: Gallbladder is absent. No bile duct dilation. Pancreas: No mass or duct dilation. Spleen: Normal. Adrenals:No mass. Kidneys: No mass, stone, or hydronephrosis. GI tract: No small or large bowel dilation. Appendix not visualized. Mesentery/Peritoneum: No ascites, mass, or free air. Retroperitoneum: No mass. Pelvis: Normal urinary bladder. Surgically absent uterus.. Soft Tissues: Enlarging right thigh lipoma, now up to 10.4 cm. Abdominopelvic bones: No acute osseous finding. IMPRESSION: Limited examination as detailed above. Within those constraints, no definite CT evidence of acute pul monary embolus. Enlarging right thigh lipoma, recommend outpatient surgical referral for excision bas ed on overall size. Reviewed, dictated and finalized at location K. DOWN FURNACE OPERATOR IMPRESSION: Limited examination as detailed above. Within those constraints, no definite CT evidence of acute pulmonary embolus. Enlarging right thigh lipoma, recommend o utpatient surgical referral for excision based on overall size.
--- NOTE | ~2022-08-07 | XR_ITS ---
XR chest 1V portable DATE: 08/07/2022 16:08 INDICATION: Shortness of breath with exertion. Rib pain. TECHNIQUE: Portable AP chest on 08/07/2022 at 1557 hours COMPARISON: 05/27/2019 PA and lateral chest FINDINGS: Borderline heart size. Mild aortic unfolding. No hilar or mediastinal enlargement. No pulmonary infiltrate or consolidation, pleural effusion or pulmonary vascular congestion or pneumo thorax is detected. IMPRESSION: No active pulmonary disease Reviewed, dictated and finalized at location A. LOPER ADVOCATE IMPRESSION: No active pulmonary disease
[2022-08-07 15:43] VITALS: BP 153/91; PULSE 96; RESP 18; TEMP 36.5; O2SAT 100
--- NOTE | 2022-08-07 16:02 | ECG_ITS ---
Measurements Intervals [place] Rate: 87 P: 17 RI: 140 QRS: -24 QRSD: 94 T: 17 QT: 340 QTc: 411 Interpretive Statements SINUS RHYTHM DELAYED PRECORDIAL R/S TRANSITION BASELINE ARTIFACT- II, III, AVR, AVF BORDERLINE ECG COMPARED TO ECG 05/27/2019 00:51:02 NO SIGNIFICANT CHANGES Electronically Signed On 08-07-2022 21:57:18 SOLAR ELECTRIC/PHOTOVOLTAIC INSTALLER by Akhil Alamo D.O.
[2022-08-07 16:13] LABS: Basophils Percent Auto 0.3 % (0.2-1.2); Eosinophils Absolute Auto 0.2 K/mm3 (0-0.3); Eosinophils Percent Auto 2.3 % (0-4.4); Hematocrit 38.9 % (37.0-47.0); Hemoglobin 12.2 g/dL (12.0-15.0); Immature Granulocyte Absolute 0.03 K/mm3 (0.00-0.031); Immature Granulocyte Percent A 0.3 % (0-0.5); Lymphocytes Absolute Auto 2.47 K/mm3 (0.9-3.2); Lymphocytes Percent Auto 27.3 % (18.3-44.2); Mean Corpuscular HGB Conc 31.4 g/dl (32-36); Mean Corpuscular Hemoglobin 28.9 pg (26-34); Mean Corpuscular Volume 92.2 fl (80-100); Mean Platelet Volume 9.8 fl (7.4-10.4); Monocytes Absolute Auto 0.7 K/mm3 (0.1-0.6); Monocytes Percent Auto 7.5 % (2.6-8.5); Neutrophils Absolute Auto 5.6 K/mm3 (1.3-6.7); Neutrophils Percent Auto 62.3 % (45.5-73.1); Platelet Count Result 322 k/mm3 (150-375); Red Blood Count 4.22 M/mm3 (4.2-5.4); Red Cell Distribution Width 15.2 % (11.5-14.5)
[2022-08-07 16:14] LABS: Appearance Urine Clear (Clear); Bilirubin Urine Negative (Negative); Blood Urine Negative (Negative); Color Urine Yellow (Yellow); Glucose Urine UA Negative (Negative); Ketones Urine Negative (Negative); Leukocyte Esterase Ur Negative LEU/UL (Negative); Nitrate Urine Negative (Negative); Protein Urine Negative (Negative); Specific Grav Ur 1.015 (1.001-1.035); Urobilinogen Urine 0.2 mg/dL (<2.0); pH Urine 6.5 (5.0-9.0)
--- NOTE | 2022-08-07 16:15 | ED.ABDPAIN ---
HPI - Abdominal Pain General Chief Complaint: Abdominal Pain Stated Complaint: back pain Time Seen by Provider: 08/07/22 16:01 History of Present Illness HPI narrative: 57-year-old female with a history of acid reflux, here for evaluation of epigastric abdominal discomfort for the past 2 days. Patient states the pain came on after eating Thanksgiving and since then has been relatively constant, worse with deep breaths and position changes. Denies any cough, shortness of breath or chest pain. She does have a history of acid reflux, took a omeprazole prior to arrival without relief. Related Data Home Medications Medication Instructions Recorded Confirmed aspirin 81 mg tablet,delayed 81 mg PO DAILY 10/29/19 12/28/21 release fluticasone fur. 100 mcg-umeclid 100 inh inhalation DAILY 01/06/21 12/28/21 62.5 mcg-vilant 25 mcg inhalat.powder (Trelegy Ellipta) losartan 100 12.5 tablet PO DAILY 01/06/21 12/28/21 mg-hydrochlorothiazide 12.5 mg tablet albuterol sulfate 90 mcg/actuation 2 puff inhalation PRN 05/16/21 12/28/21 aerosol inhaler gabapentin 100 mg capsule 100 mg PO DAILY 05/16/21 12/28/21 Vitamin D3 1 tab-cap PO DAILY 12/28/21 12/28/21 Allergies Allergy/AdvReac Type Severity Reaction Status Date / Time No Known Allergies Allergy Unknown Verified 01/12/22 11:47 Review of Systems Review of Systems: Gen: Denies fevers or chills Eyes: Denies eye pain or visual change ENT: Denies congestion Respiratory: Denies shortness of breath or cough CV: Denies chest pain or palpitations GI: Reports abdominal pain. denies nausea, emesis or diarrhea : denies burning, urgency, frequency or hematuria Musculoskeletal: Denies back pain or muscle pain Neuro: Denies numbness, tingling, weakness or focal weakness Skin: Denies rash Except as documented, all other systems reviewed and negative PMFSH Past Medical History Medical History Anemia Anxiety Arthritis Asthma Bilateral carpal tunnel syndrome Bronchitis Colon cancer screening COPD (chronic obstructive pulmonary disease) DDD (degenerative disc disease) Depression DM (diabetes mellitus) Emphysema, unspecified Endometriosis Epigastric pain GERD (gastroesophageal reflux disease) H/O: HTN (hypertension) History of irregular heartbeat History of rectal polyps IBS (irritable bowel syndrome) MVP (mitral valve prolapse) FAISAL treated with BiPAP Psoriasis Shingles Surgical History Surgical History History of appendectomy History of bilateral carpal tunnel release History of cholecystectomy History of dilation and curettage History of hysterectomy History of local excision of skin lesion History of oophorectomy Rt. Hx of tubal ligation Family History Family History Father Malignant neoplasm of prostate Mother Hypertension Diabetes mellitus Sibling Family history of elevated blood lipids Family history of diabetes mellitus in first degree relative Father Family history of diabetes mellitus in first degree relative Patient's father is Other Family history of malignant neoplasm of cervix Family history of malignant neoplasm of male breast Social History Social History Social History: the patient is . The patient initially had 5 children but 1 14 hours after due to placenta abruption. The patient is disabled. She desires to have her daughter is a durable power construction scheduler for healthcare. She would like to be a full code. The patient used marijuana in the past but does not anymore and she used to smoke cigarettes as well but quit. She does not use any alcohol or illicit drugs. Smoking packs per day: 2 Smoking cigarettes per day: 40.0 Years smoked: 30 Smoki
[2022-08-07 16:21] LABS: Mucus Urine Rare /lpf; RBC Urine 0-2 /hpf (0-2); Squamous Epithelial Cell Urine Occasional /hpf (Few); WBC Urine 0-3 /hpf
[2022-08-07 16:24] LABS: Alanine Aminotransferase 16 U/L (6-35); Albumin Level 4.1 g/dL (3.5-5.1); Alkaline Phosphatase 145 U/L (38-126); Anion Gap 7 mmol/L (8-16); Aspartate Amino Transferase 24 U/L (14-36); Bilirubin,Total 0.3 mg/dL (0.2-1.3); Blood Urea Nitrogen 14 mg/dL (7-17); Calcium 9.4 mg/dL (8.4-10.2); Carbon Dioxide 31 mmol/L (22-30); Chloride 101 mmol/L (98-107); Estimated CRCL calculation 88 ml/min; Estimated Glomerular Filt Rate > 60; Glucose 96 mg/dL (65-110); Lipase 55 U/L (23-300); Potassium 3.7 mmol/L (3.4-5.0); Sodium 139 mmol/L (137-145)
[2022-08-07 16:27] LABS: Add Urine Microscopic? NO
[2022-08-07 16:34] LABS: Troponin I < 0.012 ng/mL (0.000-0.034)
[2022-08-07 16:40] LABS: D Dimer 1.62 ug/mL (<0.48)
[2022-08-07] MEDS: BELLADONNA ALK/PHENOB ELIX 10 ML, MAG HYDROX/ALUMINUM HYD/SIMETH 30 ML, LIDOCAINE HCL 2... PO (16:43)
[2022-08-07 17:18] VITALS: BP 139/96; PULSE 86; RESP 16; O2SAT 96
[2022-08-07 19:05] VITALS: BP 139/85; PULSE 89; RESP 17; O2SAT 98
--- NOTE | 2022-08-07 19:22 | PC.NURSE ---
Assumed care of pt at this time. Pt alert and upright on stretcher, updated on POC.
[2022-08-07 19:58] VITALS: BP 139/85; PULSE 93; RESP 20; O2SAT 98
== END 2022-08-07 20:00 | disposition home or self-care (01) ==
PROVIDERS: Emergency Medicine; Emergency Provider Physician Assistant; PCP Internal Medicine
DX: R10.13 Epigastric pain (principal); D17.23 Benign lipomatous neoplasm of skin and subcutaneous tissue of right leg; E11.9 Type 2 diabetes mellitus without complications; J43.9 Emphysema, unspecified; I10 Essential (primary) hypertension; M19.90 Unspecified osteoarthritis, unspecified site; K21.9 Gastro-esophageal reflux disease without esophagitis; K58.9 Irritable bowel syndrome, unspecified; G47.33 Obstructive sleep apnea (adult) (pediatric); N80.9 Endometriosis, unspecified; Z90.710 Acquired absence of both cervix and uterus; Z90.721 Acquired absence of ovaries, unilateral; Z87.19 Personal history of other diseases of the digestive system; Z86.2 Personal history of diseases of the blood and blood-forming organs and certain disorders involving the immune mechanism; Z87.891 Personal history of nicotine dependence; Z79.82 Long term (current) use of aspirin; R94.31 Abnormal electrocardiogram [ECG] [EKG]
CPT/HCPCS: 36415; 71045; 71275; 74177; 80053; 81003; 83690; 84484; 85025; 85380; 93005; 99284; A9270; Q9967

== ENCOUNTER → 2023-02-02 08:42 | Outpatient (CLI) | payer MEDICARE, MEDICAID, SELFPAY ==
--- NOTE | ~2023-02-02 | MMUS_ITS ---
EXAMINATION: MM diagnostic amy BI w gunjan, US breast LT limited HISTORY: Left breast pain TECHNIQUE: Craniocaudal, mediolateral, and mediolateral oblique 3-D tomosynthesis images of the left breast were performed and synthetic 2-D images were generated. CAD analysis was submitted and interpr eted. High resolution limited left breast ultrasound was performed. COMPARISON: 01/14/2022, 08/25/2021, 09/03/2020, 08/27/2019 BREAST PARENCHYMAL COMPOSITION: The breasts are almost entirely fatty. FINDINGS: MAMMOGRAPHIC FINDINGS: No suspicious mass, calcification, or architectural distortion are identified in either breast to sug gest malignancy. There has been no suspicious interval change. Scattered benign-appearing calcificati ons are present. No mammographic correlate is identified for the patient's reported left breast pain. ULTRASOUND: There is no evidence of focal abnormal solid or cystic mass in the vicinity of the patient's reported left breast pain. IMPRESSION: 1. No specific mammographic or sonographic correlate is identified for the patient's reported left br east pain. Further evaluation at this time should be based on clinical assessment. Continued follow-u p physical examination is recommended. 2. Recommend routine screening mammography in one year. BI-RADS Category 2: Benign finding(s). Reviewed, dictated and finalized at location A. IMPRESSION: 1. No specific mammographic or sonographic correlate is identified for the una ent's reported left breast pain. Further evaluation at this time should be base d on clinical assessment. Continued follow-up physical examination is recommend ed. 2. Recommend routine screening mammography in one year. BI-RADS Category 2: Benign finding(s).
== END ==
PROVIDERS: PCP Internal Medicine; Visit Provider Internal Medicine
DX: R92.8 Other abnormal and inconclusive findings on diagnostic imaging of breast (principal)
CPT/HCPCS: 76642; 77062; 77066; G0279

== ENCOUNTER 2023-08-23 09:52 | Emergency (ER) | payer MEDICARE, MEDICAID, SELFPAY ==
--- NOTE | 2023-08-23 09:55 | ED.URI ---
HPI - URI/Sore Throat General Chief Complaint: Upper Respiratory Infection Stated Complaint: THROAT PROBLEMS/HARD TO BREATHE/EARACHE Time Seen by Provider: 08/23/23 09:59 Source: patient Mode of arrival: ambulatory Limitations: no limitations History of Present Illness HPI Narrative: Keegan is a 60-year-old female patient presenting to the clinic today with complaints of sore throat, difficulty swallowing due to pain, feels as though throat is swollen causing her difficulty with inspiration, and ear ache. She reports no fever or chills. Symptoms just started last night. No fever or chills. Cough is non-productive at this time but was bring up some yellow phlegm last week. MD elicited complaint: sore throat, nasal congestion and other (Shortness of breath, ear pain) Related Data Home Medications Medication Instructions Recorded Confirmed aspirin 81 mg tablet,delayed 81 mg PO DAILY 10/29/19 08/23/23 release fluticasone fur. 100 mcg-umeclid 100 inh inhalation DAILY 01/06/21 08/23/23 62.5 mcg-vilant 25 mcg inhalat.powder (Trelegy Ellipta) losartan 100 12.5 tablet PO DAILY 01/06/21 08/23/23 mg-hydrochlorothiazide 12.5 mg tablet albuterol sulfate 90 mcg/actuation 2 puff inhalation PRN 05/16/21 08/23/23 aerosol inhaler gabapentin 100 mg capsule 100 mg PO DAILY 05/16/21 08/23/23 Vitamin D3 1 tab-cap PO DAILY 12/28/21 08/23/23 atorvastatin 20 mg tablet 20 mg PO DAILY 08/23/23 08/23/23 cholecalciferol (vitamin D3) 50 50 mcg PO DAILY 08/23/23 08/23/23 mcg (2,000 unit) capsule escitalopram oxalate 10 mg tablet 10 mg PO DAILY 08/23/23 08/23/23 sitagliptin phosphate 100 mg 100 mg PO DAILY 08/23/23 08/23/23 tablet (Januvia) topiramate 25 mg tablet 25 mg PO DAILY 08/23/23 08/23/23 Allergies Allergy/AdvReac Type Severity Reaction Status Date / Time No Known Allergies Allergy Unknown Verified 08/23/23 09:58 Review of Systems Review of Systems: Pertinent positives per HPI. Patient denies any fever, chills, rash, headache, visual changes, dizziness, cough, shortness of breath, chest pain, palpitations, nausea, vomiting, diarrhea, constipation, abdominal pain, or any urinary issues. [facility] Past Medical History Medical History Anemia Anxiety Arthritis Asthma Bilateral carpal tunnel syndrome Bronchitis Colon cancer screening COPD (chronic obstructive pulmonary disease) DDD (degenerative disc disease) Depression DM (diabetes mellitus) Emphysema, unspecified Endometriosis Epigastric pain GERD (gastroesophageal reflux disease) H/O: HTN (hypertension) History of irregular heartbeat History of rectal polyps IBS (irritable bowel syndrome) MVP (mitral valve prolapse) FAISAL treated with BiPAP Psoriasis Shingles Surgical History Surgical History History of appendectomy History of bilateral carpal tunnel release History of cholecystectomy History of dilation and curettage History of hysterectomy History of local excision of skin lesion History of oophorectomy Rt. Hx of tubal ligation Family History Family History Father Malignant neoplasm of prostate Mother Hypertension Diabetes mellitus Sibling Family history of elevated blood lipids Family history of diabetes mellitus in first degree relative Father Family history of diabetes mellitus in first degree relative Patient's father is Other Family history of malignant neoplasm of cervix Family history of malignant neoplasm of male breast Social History Social History Social History: the patient is . The patient initially had 5 children but 1 14 hours after due to placenta abruption. The patient is disabled. 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
[2023-08-23 09:58] VITALS: BP 143/76; PULSE 74; RESP 16; TEMP 36.6; O2SAT 98
[2023-08-23 10:01] VITALS: BP 143/76; PULSE 74; RESP 16; TEMP 36.6; O2SAT 98
== END 2023-08-23 10:26 | disposition home or self-care (01) ==
PROVIDERS: Emergency Provider Nurse Practitioner Family; PCP Internal Medicine
DX: J06.9 Acute upper respiratory infection, unspecified (principal); J43.9 Emphysema, unspecified; J02.9 Acute pharyngitis, unspecified; Z20.822 Contact with and (suspected) exposure to COVID-19; Z87.891 Personal history of nicotine dependence; D64.9 Anemia, unspecified; F41.9 Anxiety disorder, unspecified; M19.90 Unspecified osteoarthritis, unspecified site; F32.A Depression, unspecified; E11.9 Type 2 diabetes mellitus without complications; Z79.84 Long term (current) use of oral hypoglycemic drugs; N80.9 Endometriosis, unspecified; K21.9 Gastro-esophageal reflux disease without esophagitis; I10 Essential (primary) hypertension; I34.1 Nonrheumatic mitral (valve) prolapse; G47.33 Obstructive sleep apnea (adult) (pediatric); L40.9 Psoriasis, unspecified; Z79.82 Long term (current) use of aspirin
CPT/HCPCS: 87081; 87426; 87804; 87880; 99213; C9803; G0463

== ENCOUNTER 2023-12-10 10:28 | Emergency (ER) | payer OTHER, SELFPAY ==
--- NOTE | ~2023-12-10 | XR_ITS ---
XR shoulder RT min 2V DATE: 12/10/2023 11:27 INDICATION: Bilateral chronic shoulder pain, recently worsened on the right TECHNIQUE: 4 views of right shoulder COMPARISON: 01/30/2016 right shoulder FINDINGS: There is joint space narrowing and moderately prominent periarticular spurring at the right glenohumeral joint consistent with prominent right glenohumeral osteoarthritis. There is mild degenerative change at the right acromioclavicular joint. No fracture, dislocation, periosteal reaction or bone destruction or abnormal soft tissue calcificati on of the right shoulder is noted. IMPRESSION: Moderately prominent right glenohumeral osteoarthritis Mild degenerative change at right acromioclavicular joint Reviewed, dictated and finalized at location A.
[2023-12-10 10:39] VITALS: BP 152/87; PULSE 81; RESP 20; TEMP 36.5; O2SAT 100
--- NOTE | 2023-12-10 11:12 | ED.UPPEXIN ---
HPI - Extremity Injury (Upper) General Chief Complaint: Extremity Injury, Upper <Brigette Ram PA-C - Last Filed: 12/10/23 12:04> Stated Complaint: right shoulder pain <Brigette Ram PA-C - Last Filed: 12/10/23 12:04> Time Seen by Provider: 12/10/23 11:00 <Brigette Ram PA-C - Last Filed: 12/10/23 12:04> History of Present Illness HPI narrative: 68-year-old female with a history of COPD, diabetes a chronic right shoulder pain presents to emergency department for acute on chronic shoulder pain. Patient states her shoulder pain started around 2 weeks ago. She has been using to remedies at home such as Tylenol, topical ointments, and soaking class and alcohol and lying them on her shoulder. States they help for some period of time and then her body gets used to them they no longer work. She states she has to get cortisone injections in her shoulder at her orthopedist's office. Her last injection was 1 year ago. States she called our office and she is scheduled for an appointment in 5 days, however she wanted to be evaluated sooner given the pain. She reports pain that is worse with movement. Denies fever, warmth to the shoulder, vomiting. denies chest pain or shortness of breath. <Brigette Ram PA-C - Last Filed: 12/10/23 12:04> Related Data Home Medications: Home Medications Medication Instructions Recorded Confirmed aspirin 81 mg tablet,delayed 81 mg PO DAILY 10/29/19 08/23/23 release fluticasone fur. 100 mcg-umeclid 100 inh inhalation DAILY 01/06/21 08/23/23 62.5 mcg-vilant 25 mcg inhalat.powder (Trelegy Ellipta) losartan 100 12.5 tablet PO DAILY 01/06/21 08/23/23 mg-hydrochlorothiazide 12.5 mg tablet albuterol sulfate 90 mcg/actuation 2 puff inhalation PRN 05/16/21 08/23/23 aerosol inhaler gabapentin 100 mg capsule 100 mg PO DAILY 05/16/21 08/23/23 Vitamin D3 1 tab-cap PO DAILY 12/28/21 08/23/23 atorvastatin 20 mg tablet 20 mg PO DAILY 08/23/23 08/23/23 cholecalciferol (vitamin D3) 50 50 mcg PO DAILY 08/23/23 08/23/23 mcg (2,000 unit) capsule escitalopram oxalate 10 mg tablet 10 mg PO DAILY 08/23/23 08/23/23 sitagliptin phosphate 100 mg 100 mg PO DAILY 08/23/23 08/23/23 tablet (Januvia) topiramate 25 mg tablet 25 mg PO DAILY 08/23/23 08/23/23 <Brigette Ram PA-C - Last Filed: 12/10/23 12:04> Allergies/Adverse Reactions: Allergies Allergy/AdvReac Type Severity Reaction Status Date / Time No Known Allergies Allergy Unknown Verified 12/10/23 11:34 <Brigette Ram PA-C - Last Filed: 12/10/23 12:04> Review of Systems Review of Systems: CONSTITUTIONAL: Denies fever, chills, or sweats. EYES: Denies visual changes, redness, or discharge. ENT: Denies rhinorrhea, congestion, sore throat, or otalgia. CARDIOVASCULAR: Denies chest pain, palpitations, or edema. RESPIRATORY: Denies cough or dyspnea. GASTROINTESTINAL: Denies abdominal pain, nausea, vomiting, or diarrhea. GENITOURINARY: Denies dysuria or hematuria. SKIN: Denies rash or itching. MUSCULOSKELETAL: See HPI NEUROLOGIC: Denies headache, numbness, or weakness. PSYCHIATRIC: Denies anxiety or depression. <Brigette Ram PA-C - Last Filed: 12/10/23 12:04> [facility] Past Medical History Medical History: Medical History Anemia Anxiety Arthritis Asthma Bilateral carpal tunnel syndrome Bronchitis Colon cancer screening COPD (chronic obstructive pulmonary disease) DDD (degenerative disc disease) Depression DM (diabetes mellitus) Emphysema, unspecified Endometriosis Epigastric pain GERD (gastroesophageal reflux disease) H/O: HTN (hypertension) History of irregular heartbeat History of rectal polyps IBS (irritable bowel syndrome) MVP (mitral valve prolapse) FAISAL treated with BiPAP Psoriasis Shingles <Brigette Ram PA-C - Last Filed: 12/10/23 12:04> Surgical History Surgical History: Surgic
[2023-12-10] MEDS: LIDOCAINE 5% PATCH 1 PATCH TRANSDERM (11:17)
[2023-12-10] MEDS: ACETAMINOPHEN 500 MG TABLET 1000 MG PO (11:17)
[2023-12-10] MEDS: CYCLOBENZAPRINE HCL 10 MG TABLET PO (11:17)
== END 2023-12-10 12:39 | disposition home or self-care (01) ==
PROVIDERS: Emergency Provider Physician Assistant; PCP Internal Medicine
DX: M25.511 Pain in right shoulder (principal); G89.29 Other chronic pain; M19.011 Primary osteoarthritis, right shoulder; J44.9 Chronic obstructive pulmonary disease, unspecified; E11.9 Type 2 diabetes mellitus without complications; G47.33 Obstructive sleep apnea (adult) (pediatric); F41.9 Anxiety disorder, unspecified; F32.A Depression, unspecified; Z79.82 Long term (current) use of aspirin; Z79.51 Long term (current) use of inhaled steroids; Z79.84 Long term (current) use of oral hypoglycemic drugs; Z87.891 Personal history of nicotine dependence
CPT/HCPCS: 73030; 99283; A9270

== ENCOUNTER 2024-03-12 15:16 | Outpatient (CLI) | payer OTHER, MEDICAID, SELFPAY ==
--- NOTE | ~2024-03-12 | MR_ITS ---
EXAMINATION: MR lumbar spine wo con DATE: 03/12/2024 15:59 INDICATION: Bilateral low back pain. TECHNIQUE: Magnetic resonance imaging (MRI) of the lumbar spine was performed without intravenous con trast. Sequences included sagittal T2-weighted FSE, sagittal T2-weighted FS FSE, sagittal T1-weighted FSE, and axial T2-weighted FSE. COMPARISON: Lumbar spine MRI 01/07/2021, CT abdomen 08/07/2022 FINDINGS: There is 7 degrees dextrocurvature of lumbar spine. There is 3 mm anterolisthesis of L3 on L4, L4-L5, and L5 on S1. Vertebral body heights are normal. There is mildly decreased disc height at L4-L5 and moderately decreased disc height at L5-S1. At L5-S1, there is increased T2-weighted signal intensity in the disc anteriorly. There is vacuum disc phenomenon at L5-S1. There is increased T2-jose enrique ghted signal intensity and decreased T1-weighted signal intensity of the endplates at L4-L5 and L5-S1 . The distal spinal cord signal intensity is normal. The conus medullaris is at L1. The following dis c levels are specifically discussed: L1-L2: There is a central protrusion. There is moderate right and severe left facet joint osteoarthri tis. There is mild bilateral neural foraminal stenosis. There is mild central canal stenosis. L2-L3: The disc is bulging. There is severe bilateral facet joint osteoarthritis. There is mild bilat eral neural foraminal stenosis. There is mild central canal stenosis. L3-L4: The disc is bulging and has an annular fissure. There is severe bilateral facet joint osteoart hritis. There is mild bilateral neural foraminal stenosis. There is mild central canal stenosis. L4-L5: The disc is bulging. There is severe bilateral facet joint osteoarthritis. There is mild bilat eral neural foraminal stenosis. There is mild central canal stenosis. L5-S1: The disc is bulging. There is severe bilateral facet joint osteoarthritis. There is moderate b ilateral neural foraminal stenosis. There is mild central canal stenosis. There is moderate stenosis of right lateral recess. IMPRESSION: 1. Worsened disc disease and endplate change at L5-S1, which may be degenerative spondylosis or disci tis/osteomyelitis. Reviewed, dictated and finalized at location A. IMPRESSION: 1. Worsened disc disease and endplate change at L5-S1, which may be degenerativ e spondylosis or discitis/osteomyelitis.
== END 2024-03-12 15:17 ==
LOC: MICIMG 15:17
PROVIDERS: PCP Nurse Practitioner; Visit Provider Nurse Practitioner
DX: M54.42 Lumbago with sciatica, left side (principal); M54.41 Lumbago with sciatica, right side; G89.29 Other chronic pain; M51.37 Other intervertebral disc degeneration, lumbosacral region
CPT/HCPCS: 72148

== ENCOUNTER 2024-04-25 10:04 | Outpatient (CLI) | payer OTHER, SELFPAY ==
--- NOTE | 2024-05-01 14:16 | WPDPFTINT ---
PFT Procedure Performed PFT Procedure Performed Spirometry with Pre/Post Bronchodilator Plethysmography (Lung Vol) Diffusing Cap (DLCO) Flow Vol Loop PFT Interpretation DOS: 04/25/2024 REQUESTING: Dr. Nathan Baig REASON FOR TESTING: asthma PULMONARY FUNCTION TESTS Repeatability of spirometry FEV1 maneuver pre-bronchodilator is Grade B. Repeatability of spirometry FEV1 post-bronchodilator is Grade A. Spirometry: The pre-bronchodilator FEV1 is 1.62 L, 77% predicted, normal. The pre-bronchodilator FVC is 2.15 L, 80% predicted, normal. The FEV1/FVC ratio is 75%, normal. After bronchodilator, the FEV1 is 1.72 L, 82% predicted, +6%. The FVC is 2.13 L, 79%, -1%. The FEV1/FVC ratio is 80%, normal. Lung volumes: The total lung capacity is 3.76 L, 79%, normal. The residual volume is 1.60 L, 76%, normal. The RV/TLC is 43%, normal. Airway resistance is normal. Diffusion: DLCO is 17.6, 82%, normal. The DLCO/VA is 5.42, 128%, normal. Flow volume loop: The flow volume loop is normal. IMPRESSION: Spirometry is normal without airflow obstruction, and no significant response to bronchodilator, normal lung volumes and normal diffusion capacity. Compared to a prior study 03/17/2022, values are similar. Yara Means MD
== END 2024-04-25 10:05 | disposition home or self-care (01) ==
LOC: ANHPFT 10:05
PROVIDERS: PCP Internal Medicine; Visit Provider Student in an Organized Health Care Education/Training Program
DX: J45.40 Moderate persistent asthma, uncomplicated (principal)
CPT/HCPCS: 94060; 94726; 94729

== ENCOUNTER 2024-05-10 10:25 | Outpatient (CLI) | payer OTHER, SELFPAY ==
--- NOTE | ~2024-05-10 | MM_ITS ---
EXAMINATION: MM screening [facility] BI w gunjan HISTORY: Screening TECHNIQUE: Craniocaudal and mediolateral oblique 3-D tomosynthesis images were obtained and synthetic 2-D images were generated. CAD analysis was submitted and interpreted. COMPARISON: Comparison to multiple prior studies sequentially, with oldest reviewed study dated 08/12. BREAST PARENCHYMAL COMPOSITION: Not Dense. The breasts are almost entirely fatty. FINDINGS: There is no evidence of suspicious mass, calcification, or architectural distortion to sugg est malignancy in either breast. There has been no suspicious interval change. IMPRESSION: 1. No mammographic evidence of malignancy. 2. Recommend routine screening mammography in one year. BI-RADS Category 1: Negative Reviewed, dictated and finalized at location B.
== END 2024-05-10 10:26 ==
PROVIDERS: PCP Internal Medicine; Visit Provider Obstetrics & Gynecology
DX: Z12.31 Encounter for screening mammogram for malignant neoplasm of breast (principal)
CPT/HCPCS: 77063; 77067

== ENCOUNTER 2024-06-26 17:34 | Emergency (ER) | payer OTHER, SELFPAY ==
--- NOTE | ~2024-06-26 | XR_ITS ---
EXAMINATION: XR abdomen/kub 1V DATE: 06/26/2024 18:27 INDICATION: Constipation. TECHNIQUE: A supine view of the abdomen on 2 radiographs was obtained. COMPARISON: CT abdomen and pelvis 08/07/2022 FINDINGS: There are no dilated loops of bowel. There is a small volume of stool in the colon. Surgica l clips in the right upper quadrant are likely from cholecystectomy. IMPRESSION: 1. Normal bowel gas pattern. Reviewed, dictated and finalized at location A.
--- NOTE | ~2024-06-26 | XR_ITS ---
EXAMINATION: XR lumbar spine min 4V DATE: 06/26/2024 18:26 INDICATION: Chronic back pain. TECHNIQUE: 5 views of lumbar spine were obtained. COMPARISON: Lumbar spine radiograph 01/06/2021 FINDINGS: There is 10 degrees dextrocurvature of lumbar spine. Vertebral body heights are normal. The re is mildly decreased disc height at L3-L4 and L4-L5 and moderately decreased disc height at L5-S1. There are erosions at L5-S1 anteriorly. There is multilevel severe facet joint osteoarthritis. Surgic al clips in the right upper quadrant are likely from cholecystectomy. IMPRESSION: 1. Disc and endplate changes at L5-S1 suspicious for discitis/osteomyelitis. 2. Mild spondylosis at other levels. Reviewed, dictated and finalized at location A.
[2024-06-26 18:01] VITALS: BP 185/77; PULSE 73; RESP 18; TEMP 36.2; O2SAT 100
--- NOTE | 2024-06-26 18:03 | ED.BACK ---
HPI - Back Pain/Injury General Chief Complaint: Abdominal Pain <Zainab Engel, INTERNATIONAL TRAVEL CONSULTANT - Last Filed: 06/26/24 18:09> Stated Complaint: CHRONIC PELVIC/BACK PAIN <Zainab Engel, INTERNATIONAL TRAVEL CONSULTANT - Last Filed: 06/26/24 18:09> Time Seen by Provider: 06/26/24 17:50 <Zainab Engel, INTERNATIONAL TRAVEL CONSULTANT - Last Filed: 06/26/24 18:09> Focused HPI: Patient is a 60-year-old female who presents to the urinary incontinence, worsening chronic back pain, and sciatic nerve pain. Patient also endorses a swollen abdomen. She reports she has been taking laxatives to help herself have bowel movements, but takes oxycodone for her chronic back pain. Patient reports she is almost out of her Oxycodone. She reports her primary care provider put her on some medication to help dry her out because of her incontinence but she stopped taking it yesterday because it was drying her out too much. Patient endorses a history diabetes, high blood pressure, chronic back pain, hysterectomy and pelvic floor therapy. GENERAL: Well-appearing, well-nourished, and in no acute distress. HEAD: Normocephalic, atraumatic. CHEST: Clear to auscultation. ?No respiratory distress. HEART: Regular rate and rhythm.? NEURO: ?Alert and oriented x3. Patient screened in triage and initial orders placed.? ?Additional care and disposition to be based upon?diagnostic testing and treatment. <Zainab Engel, INTERNATIONAL TRAVEL CONSULTANT - Last Filed: 06/26/24 18:09> Focused HPI: Patient is a 60-year-old female who presents to the urinary incontinence, worsening chronic back pain, and sciatic nerve pain. Patient also endorses a swollen abdomen. She reports she has been taking laxatives to help herself have bowel movements, but takes oxycodone for her chronic back pain. Patient reports she is almost out of her Oxycodone. She reports her primary care provider put her on some medication to help dry her out because of her incontinence but she stopped taking it yesterday because it was drying her out too much. Patient endorses a history diabetes, high blood pressure, chronic back pain, hysterectomy and pelvic floor therapy. GENERAL: Well-appearing, well-nourished, and in no acute distress. HEAD: Normocephalic, atraumatic. CHEST: Clear to auscultation. ?No respiratory distress. HEART: Regular rate and rhythm.? NEURO: ?Alert and oriented x3. Patient screened in triage and initial orders placed.? ?Additional care and disposition to be based upon?diagnostic testing and treatment. Agree with triage assessment. Patient denies any abdominal pain and states that her pain is in her lower back which she has had for many years but has noticed that it has been worsening the past few months. Denies any recent falls or trauma. <Lelia Esquivel MD - Last Filed: 06/26/24 22:29> Source: patient <Sascha Wick MD - Last Filed: 06/26/24 18:44> Mode of arrival: ambulatory <Sascha Wick MD - Last Filed: 06/26/24 18:44> Limitations: no limitations <Sascha Wick MD - Last Filed: 06/26/24 18:44> History of Present Illness HPI Narrative: 68-year-old with a history of hypertension, diabetes morbid obesity, chronic lumbar pain here with the complaints of increased pain and the last few weeks. Patient states that usually she gets pain during the night time but now she has constant pain and pain is now radiating into her lower extremity mostly on the right. She denies any trauma. No bladder or bowel incontinence patient states that she has bladder prolapse <Sascha Wick MD - Last Filed: 06/26/24 18:44> MD elicited complaint: back pain <Sascha Wick MD - Last Filed: 06/26/24 18:44> Timing: constant <Sascha Wick MD - Last Filed: 06/26/24 18:44> Location: lumbar spine <Sascha Wick MD - Last Filed: 06/26/24 18:44> Radiation: right upper leg <Sascha Wick MD - Last Filed: 06/26/24 18:44> Exacerbating factors: none
[2024-06-26] MEDS: HYDROcodone/acetaminophen (*CRX) 5-325 MG TABLET 1 TAB PO (18:29)
[2024-06-26 18:41] LABS: Glucose Point of Care 112 mg/dl (65-105)
--- NOTE | 2024-06-26 20:05 | PC.NURSE ---
pt states they are still unable to urinate at this time. educated pt to use call light with any urge to urinate
[2024-06-26 20:15] VITALS: BP 155/82; PULSE 61; RESP 13; O2SAT 100
[2024-06-26 20:25] LABS: Basophils Percent Auto 0.3 % (0.2-1.2); Eosinophils Absolute Auto 0.2 K/mm3 (0-0.3); Eosinophils Percent Auto 2.1 % (0-4.4); Hematocrit 40.2 % (37.0-47.0); Hemoglobin 12.8 g/dL (12.0-15.0); Immature Granulocyte Absolute 0.02 K/mm3 (0.00-0.031); Immature Granulocyte Percent A 0.3 % (0-0.5); Lymphocytes Absolute Auto 1.88 K/mm3 (0.9-3.2); Lymphocytes Percent Auto 23.7 % (18.3-44.2); Mean Corpuscular HGB Conc 31.8 g/dl (32-36); Mean Platelet Volume 9.9 fl (7.4-10.4); Monocytes Absolute Auto 0.5 K/mm3 (0.1-0.6); Monocytes Percent Auto 6.6 % (2.6-8.5); Neutrophils Absolute Auto 5.3 K/mm3 (1.3-6.7); Platelet Count Result 287 k/mm3 (150-375); Red Blood Count 4.42 M/mm3 (4.2-5.4); Red Cell Distribution Width 15.9 % (11.5-14.5); White Blood Count 7.9 K/mm3 (4.5-10.0)
[2024-06-26 20:26] LABS: Add Urine Microscopic? NO; Appearance Urine Clear (Clear); Bilirubin Urine Negative (Negative); Blood Urine Negative (Negative); Color Urine Yellow (Yellow); Glucose Urine UA 3+ mg/dL (Negative); Ketones Urine Negative (Negative); Leukocyte Esterase Ur Negative LEU/UL (Negative); Nitrate Urine Negative (Negative); Protein Urine Negative (Negative); Urobilinogen Urine 0.2 mg/dL (<2.0)
[2024-06-26 20:39] LABS: Alanine Aminotransferase 15 U/L (6-35); Albumin Level 4.2 g/dL (3.5-5.1); Alkaline Phosphatase 154 U/L (38-126); Anion Gap 8 mmol/L (4-12); Aspartate Amino Transferase 24 U/L (14-36); Bilirubin,Total 0.4 mg/dL (0.2-1.3); Blood Urea Nitrogen 19 mg/dL (7-17); CRP 2.7 mg/dL (<1.0); Calcium 9.6 mg/dL (8.4-10.2); Carbon Dioxide 30 mmol/L (22-30); Chloride 99 mmol/L (98-107); Estimated CRCL calculation 90 ml/min; Estimated Glomerular Filt Rate > 60; Glucose 109 mg/dL (65-110); Potassium 3.6 mmol/L (3.4-5.0); Sodium 137 mmol/L (137-145)
[2024-06-26 20:58] LABS: Erythrocyte Sedimentation Rate 35 mm/hr (0-20)
--- NOTE | 2024-06-26 21:18 | PC.NURSE ---
gave pt daughter update with pt permission.
[2024-06-26 22:10] VITALS: BP 148/83; PULSE 64; RESP 16; O2SAT 99
--- NOTE | 2024-06-26 23:03 | PC.NURSE ---
called report to [facility] at [phone] to give nurse report. they were not available at this time, so left call back number. ARACELIS Tao called back at [phone] for report. all questions answered. RN report number [phone]. accepting physician Dr. Lanza
== END 2024-06-26 23:42 | disposition short-term general hospital (02) ==
PROVIDERS: Family Medicine; Registered Nurse; Emergency Provider Emergency Medicine; PCP Internal Medicine
DX: M54.50 Low back pain, unspecified (principal); M86.9 Osteomyelitis, unspecified; M46.46 Discitis, unspecified, lumbar region; D64.9 Anemia, unspecified; F41.9 Anxiety disorder, unspecified; M19.90 Unspecified osteoarthritis, unspecified site; J45.909 Unspecified asthma, uncomplicated; F32.A Depression, unspecified; E11.9 Type 2 diabetes mellitus without complications; K21.9 Gastro-esophageal reflux disease without esophagitis; G47.30 Sleep apnea, unspecified
CPT/HCPCS: 36415; 72110; 74018; 80053; 81003; 82948; 83605; 85025; 85652; 86140; 99285; A9270

== ENCOUNTER 2024-08-29 09:27 | Emergency (ER) | payer OTHER, SELFPAY ==
[2024-08-29 09:39] VITALS: RESP 18
--- NOTE | 2024-08-29 09:45 | ECG_ITS ---
Test Date: 2024-08-29 10:05:04 Measurements Intervals Calvin Rate: 68 P: 26 NM: 166 QRS: -23 QRSD: 97 T: 18 QT: 364 QTc: 388 Interpretive Statements SINUS RHYTHM BORDERLINE LEFT AXIS DEVIATION [QRS AXIS < -20] No previous ECG available for comparison Electronically Signed On 08-29-2024 14:44:03 [employer] ATTEND[employer] by Ada Jones M.D.
--- NOTE | 2024-08-29 09:46 | ED_ITS ---
HPI - Recheck/Abnormal Lab/Rx General Chief Complaint: Recheck/Abnormal Lab/Rx Stated Complaint: high k+ Time Seen by Provider: 08/29/24 09:31 History of Present Illness HPI narrative: 69-year-old female with history of morbid obesity, hypertension, GERD, DM, COPD and recent diagnosis of diskitis in June 2024 presents to emergency department with at bedside for hyperkalemia. Patient was seen in our emergency department in June for back pain and radicular symptoms. She had a CT obtained which showed concerns for diskitis versus osteomyelitis. She was transferred to [facility] where she underwent daily IV antibiotics and was discharged to a rehab facility with a PICC line for continuation of IV antibiotics. Patient has since been discharged home and has had a home health nurse, daily to check lab work and administered remainder of her IV antibiotics. She has had 8 weeks of antibiotics total. She had her last round of antibiotics yesterday and had her PICC line removed. The home health nurse took lab work yesterday and contacted patient's morning telling her to go to the nearest ED due to elevated levels of potassium. The patient states she has no history of hyperkalemia, CKD or need for dialysis. She denies chest pain or shortness of breath, palpitations, edema. States her back pain has resolved. The patient is unsure which antibiotic she was on for the diskitis. Related Data Home Medications ?Medication ?Instructions ?Recorded ?Confirmed ?Last Taken ?Type aspirin 81 mg tablet,delayed 81 mg PO DAILY 10/29/19 02/28/24 Unknown History release fluticasone fur. 100 mcg-umeclid 100 inh inhalation DAILY 01/06/21 02/28/24 Unknown History 62.5 mcg-vilant 25 mcg inhalat.powder (Trelegy Ellipta) losartan 100 12.5 tablet PO DAILY 01/06/21 02/28/24 Unknown History mg-hydrochlorothiazide 12.5 mg tablet albuterol sulfate 90 mcg/actuation 2 puff inhalation PRN 05/16/21 02/28/24 Unknown History aerosol inhaler atorvastatin 20 mg tablet 20 mg PO DAILY 08/23/23 02/28/24 Unknown History cholecalciferol (vitamin D3) 50 50 mcg PO DAILY 08/23/23 02/28/24 Unknown History mcg (2,000 unit) capsule azelastine 137 mcg (0.1 %) nasal 137 mcg intranasal Q12H 12/15/23 02/28/24 Unknown History spray empagliflozin 25 mg tablet 25 mg PO DAILY 12/15/23 02/28/24 Unknown History (Jardiance) fluticasone propionate 50 1 spray intranasal DAILY 12/15/23 02/28/24 Unknown History mcg/actuation nasal spray,suspension (Children's Flonase Allergy Relief) pantoprazole 40 mg tablet,delayed 40 mg PO QAM 12/15/23 02/28/24 Unknown History release gabapentin 300 mg capsule 300 mg PO BID 02/28/24 02/28/24 Unknown History hydrocodone 7.5 mg-acetaminophen 1 tablet PO QHS PRN 02/28/24 02/28/24 Unknown History 325 mg tablet meloxicam 15 mg tablet 15 mg PO DAILY 02/28/24 02/28/24 Unknown History Allergies Allergy/AdvReac Type Severity Reaction Status Date / Time meloxicam Allergy Intermediate Itching Verified 08/29/24 09:38 celecoxib (From Celebrex) Allergy Mild itching Verified 08/29/24 09:38 Review of Systems 2 Review of Systems: All systems reviewed & are unremarkable except as noted in HPI and below PMFSH Past Medical History Medical History Sciatica Arthritis, lumbar spine Colon cancer screening Epigastric pain FAISAL treated with BiPAP Shingles Anemia Depression Anxiety DM (diabetes mellitus) Bilateral carpal tunnel syndrome DDD (degenerative disc disease) Arthritis Endometriosis IBS (irritable bowel syndrome) History of rectal polyps GERD (gastroesophageal reflux disease) Bronchitis Asthma Emphysema, unspecified H/O: HTN (hypertension) History of irregular heartbeat MVP (mitral valve prolapse) Surgical History Surgical History History of local excision of skin lesion History of bilateral carpal tunnel release History of oophorectomy Rt. History of dilation and curettage History of hysterectomy Hx of tubal ligation History of cholecystectomy History of appendectomy Family History Family History Father Malignant neoplasm of prostate Mother Hypertension Diabetes mellitus Sibling Family history of elevated blood lipids Family history of diabetes mellitus in first degree relative Father Family history of diabetes mellitus in first degree relative Patient's father is Other Family history of malignant neoplasm of cervix Family history of malignant neoplasm of male breast Social History Social History Social History: the patient is . The patient initially had 5 children but 1 14 hours after due to placenta abruption. The patient is disabled. She desires to have her daughter is a durable power ip technology transactions attorney for healthcare. She would like to be a full code. The patient used marijuana in the past but does not anymore and she used to smoke cigarettes as well but quit. She does not use any alcohol or illicit drugs. Smoking packs per day: 2 Smoking cigarettes per day: 40.0 Years smoked: 30 Smoking pack-years: 60.00 Smoking status: Former smoker Second hand tobacco smoke exposure: Yes Alcohol intake: never Substance use: never Substance use type: does not use Do You Feel Safe in your Home?: Yes Lack of Transportation: No Lack of Food: Never True Current Housing: I Have Housing Concerned About Future Housing: No Difficulty Paying Gas/Electric Bills: No Difficulty Paying for Meds: YES Currently Unemployed: No Education: Decline to Answer Difficulty w/ Childcare or Family Care: No Living arrangements: alone Occupation/Education: retired Gender identity (if verbalized by the patient): Female Sexual Orientation (if Verbalized by the Patient): Straight or Heterosexual Spiritual care concerns: No Exam 2 Narrative: GENERAL: Well-appearing, well-nourished, and in no acute distress. HEAD: Normocephalic, atraumatic. EYES: PERRLA and EOMI. ENT: Nares clear, no rhinorrhea or epistaxis. Mucous membranes moist. NECK: Supple. BACK: unremarkable with no midline tenderness, no erythema or fluctuation, no induration CHEST: Clear to auscultation. No respiratory distress. HEART: Regular rate and rhythm. No murmur heard. Normal peripheral pulses. ABDOMEN: Soft, nontender, nondistended, normal active bowel sounds. EXTREMITIES: Normal range of motion. No edema. SKIN: Warm, dry, no rash. NEURO: No focal deficits. Alert and oriented x3 Course Vital Signs Vital signs: Vital Signs Respiratory Rate 18 08/29/24 09:39 Temperature 97.5 F L 08/29/24 09:47 Pulse Rate 81 08/29/24 11:13 Respiratory Rate 18 08/29/24 11:13 Blood Pressure 172/93 H 08/29/24 11:13 Pulse Oximetry 97 08/29/24 11:13 Oxygen Delivery Room Air 08/29/24 09:47 MDM - Recheck/Abnormal Lab/Rx MDM Narrative Medical decision making narrative: 69-year-old female presents to the emergency department for hyperkalemia. Patient had labs drawn by home health nurse yesterday which showed elevated potassium. She was contacted by home health nurse and advised to go to the nearest ED. she had her last round of IV antibiotics yesterday after an 8 week course of antibiotics for diskitis. Patient and were able to contact [facility] you told them she was on cefepime. Plan to obtain CBC, chemistries, magnesium, CK, urinalysis and EKG. EKG shows sinus rhythm with rate of 60 ppm, normal DC interval, normal QRS duration, normal QTC, no ischemic changes repeat T-waves, no ST elevations concerning for hyperkalemia. Chemistries show no electrolyte derangements including a normal potassium of 4.2. Creatinine is normal at 0.6. She does have mild elevation in her LFTs with an AST of 47, ALT 36 and alk-phos of 152. Her urinalysis shows 2+ glucose, no protein urea or UTI. CBC shows no leukocytosis. Patient family were updated on workup. Yesterday's evidence of hyperkalemia likely secondary to hemolysis and lab error. She was reassured that she has no signs of hyperkalemia today and advised to follow-up with her PCP for lab redraw next 48 hours. Discussed strict ED return precautions. She is agreeable with the plan verbalized understanding. Discharged in stable condition. Lab Data 08/29/24 11:07 08/29/24 11:07 Labs: Lab Results 08/29/24 08/29/24 Range/Units 10:54 11:07 WBC 7.2 (4.5-10.0) K/mm3 RBC 4.33 (4.2-5.4) M/mm3 Hgb 12.4 (12.0-15.0) g/dL Hct 39.5 (37.0-47.0) % MCV 91.2 (80-100) fl MCH 28.6 (26-34) pg MCHC 31.4 L (32-36) g/dl RDW 15.9 H (11.5-14.5) % Plt Count 260 (150-375) k/mm3 MPV 10.3 (7.4-10.4) fl Immature Gran % (Auto) 0.1 (0-0.5) % Neut % (Auto) 57.2 (45.5-73.1) % Lymph % (Auto) 25.3 (18.3-44.2) % Ransom % (Auto) 5.8 (2.6-8.5) % Eos % (Auto) 10.8 H (0-4.4) % Baso % (Auto) 0.8 (0.2-1.2) % Lymph # (Auto) 1.82 (0.9-3.2) K/mm3 Ransom # (Auto) 0.4 (0.1-0.6) K/mm3 Eos # (Auto) 0.8 H (0-0.3) K/mm3 Baso # (Auto) 0.1 (0.0-0.1) K/mm3 Abs Immat Gran (auto) 0.01 (0.00-0.031) K/mm3 Absolute Neuts (auto) 4.1 (1.3-6.7) K/mm3 Absolute Nucleated RBC 0.000 (0.0-0.012) K/mm3 Nucleated RBC % 0.0 (0.0-0.2) % Sodium 138 (137-145) mmol/L Potassium 4.2 (3.4-5.0) mmol/L Chloride 105 (98-107) mmol/L Carbon Dioxide 29 (22-30) mmol/L Anion Gap 4 (4-12) mmol/L BUN 21 H (7-17) mg/dL Creatinine 0.60 L (0.7-1.0) mg/dL Estim Creat Clear Calc 103 ml/min Estimated GFR > 60 (59 - ) Glucose 103 (65-110) mg/dL Calcium 10.1 (8.4-10.2) mg/dL Magnesium 1.9 (1.6-2.3) mg/dL Total Bilirubin 0.7 (0.2-1.3) mg/dL AST 47 H (14-36) U/L ALT 36 H (6-35) U/L Alkaline Phosphatase 152 H (38-126) U/L Total Creatine Kinase 99 (30-135) U/L Total Protein 8.0 (6.3-8.2) g/dL Albumin 4.3 (3.5-5.1) g/dL Urine Color Yellow (Yellow) Urine Appearance Clear (Clear) Urine pH 6.0 (5.0-9.0) Ur Specific Carnegie 1.008 (1.001-1.035) Urine Protein Negative (Negative) mg/dL Urine Glucose (UA) 2+ H (Negative) mg/dL Urine Ketones Negative (Negative) mg/dL Ur Blood (Man) Negative (Negative) Urine Nitrate Negative (Negative) Urine Bilirubin Negative (Negative) Urine Urobilinogen 0.2 (<2.0) mg/dL Leukocyte Esterase Rfl Negative (Negative) RESHMA/UL Discharge Plan Discharge Clinical Impression: Elevated liver enzymes Patient Disposition: Home, Self-Care Condition: Stable Instructions: Antibiotic Form, Transaminitis (ED) Additional Instructions: Your evaluated in the emergency department for high potassium. Your potassium levels are normal today. The elevation in the potassium may have been secondary to lab error, regardless I would like for you to have your potassium redrawn in 48 hours by her primary care to ensure it remains normal. Additionally rebound have elevation in your liver enzymes today, please have this checked by her PCP as well. Return to the emergency department if you develop abdominal pain, chest pain, shortness of breath, palpitations or other concerning symptoms. Patient Language: Indonesian Prescriptions: No Action aspirin 81 mg Tablet,Delayed Release (Dr/Ec) 81 mg PO DAILY albuterol sulfate 90 mcg/actuation HFA aerosol inhaler 2 puff INHALATION PRN atorvastatin 20 mg tablet 20 mg PO DAILY cholecalciferol (vitamin D3) 50 mcg (2,000 unit) capsule 50 mcg PO DAILY azelastine 137 mcg (0.1 %) aerosol,spray 137 mcg intranasal Q12H Rx Instructions: administer into each nostril fluticasone propionate [Children's Flonase Allergy Rlf] 50 mcg/actuation spray,suspension 1 spray intranasal DAILY Rx Instructions: administer into each nostril pantoprazole 40 mg tablet,delayed release (DR/EC) 40 mg PO QAM Jardiance 25 mg tablet 25 mg PO DAILY hydrocodone-acetaminophen 7.5-325 mg tablet 1 tablet PO QHS PRN meloxicam 15 mg tablet 15 mg PO DAILY gabapentin 300 mg capsule 300 mg PO BID cyclobenzaprine 5 mg tablet 5 mg PO TID PRN (Reason: muscle spasm) Qty: 14 0RF acetaminophen 500 mg capsule 500 mg PO Q6H PRN (Reason: pain) Qty: 20 0RF losartan-hydrochlorothiazide 100-12.5 mg tablet 12.5 tablet PO DAILY Trelegy Ellipta 100-62.5-25 mcg blister with device 100 inh INHALATION DAILY Follow-up/Referrals: Elise,MD Tracy [Primary Care Provider] -
[2024-08-29 09:47] VITALS: BP 132/58; PULSE 76; RESP 18; TEMP 36.4; O2SAT 96
[2024-08-29 11:03] LABS: Add Urine Microscopic? NO; Appearance Urine Clear (Clear); Bilirubin Urine Negative (Negative); Blood Urine Negative (Negative); Color Urine Yellow (Yellow); Glucose Urine UA 2+ mg/dL (Negative); Ketones Urine Negative (Negative); Leukocyte Esterase Ur Negative LEU/UL (Negative); Nitrate Urine Negative (Negative); Protein Urine Negative (Negative); Specific Grav Ur 1.008 (1.001-1.035); Urobilinogen Urine 0.2 mg/dL (<2.0)
[2024-08-29 11:13] VITALS: BP 172/93; PULSE 81; RESP 18; O2SAT 97
[2024-08-29 11:13] LABS: Basophils Absolute Auto 0.1 K/mm3 (0.0-0.1); Basophils Percent Auto 0.8 % (0.2-1.2); Eosinophils Absolute Auto 0.8 K/mm3 (0-0.3); Eosinophils Percent Auto 10.8 % (0-4.4); Hematocrit 39.5 % (37.0-47.0); Hemoglobin 12.4 g/dL (12.0-15.0); Immature Granulocyte Absolute 0.01 K/mm3 (0.00-0.031); Immature Granulocyte Percent A 0.1 % (0-0.5); Lymphocytes Absolute Auto 1.82 K/mm3 (0.9-3.2); Lymphocytes Percent Auto 25.3 % (18.3-44.2); Mean Corpuscular HGB Conc 31.4 g/dl (32-36); Mean Corpuscular Hemoglobin 28.6 pg (26-34); Mean Corpuscular Volume 91.2 fl (80-100); Mean Platelet Volume 10.3 fl (7.4-10.4); Monocytes Absolute Auto 0.4 K/mm3 (0.1-0.6); Monocytes Percent Auto 5.8 % (2.6-8.5); Neutrophils Absolute Auto 4.1 K/mm3 (1.3-6.7); Neutrophils Percent Auto 57.2 % (45.5-73.1); Platelet Count Result 260 k/mm3 (150-375); Red Blood Count 4.33 M/mm3 (4.2-5.4); Red Cell Distribution Width 15.9 % (11.5-14.5); White Blood Count 7.2 K/mm3 (4.5-10.0)
[2024-08-29 11:33] LABS: Alanine Aminotransferase 36 U/L (6-35); Albumin Level 4.3 g/dL (3.5-5.1); Alkaline Phosphatase 152 U/L (38-126); Anion Gap 4 mmol/L (4-12); Aspartate Amino Transferase 47 U/L (14-36); Bilirubin,Total 0.7 mg/dL (0.2-1.3); Blood Urea Nitrogen 21 mg/dL (7-17); Calcium 10.1 mg/dL (8.4-10.2); Carbon Dioxide 29 mmol/L (22-30); Chloride 105 mmol/L (98-107); Creatine Kinase 99 U/L (30-135); Estimated CRCL calculation 103 ml/min; Estimated Glomerular Filt Rate > 60; Glucose 103 mg/dL (65-110); Magnesium 1.9 mg/dL (1.6-2.3); Potassium 4.2 mmol/L (3.4-5.0); Sodium 138 mmol/L (137-145)
[2024-08-29 12:24] VITALS: BP 144/70; PULSE 73; RESP 20; O2SAT 100
--- OUTSIDE RECORDS SUMMARY | 2024-09-07 05:21 | XMS_ITS | Encounter Summary ---
Author Organization [facility] Address [address] [place] [address]. [place] [id number] [place] [id number] Care Team Providers Care Core Sucker Name Role Phone Tracy Olivares MD Primary Care Provider [phone] Nathan Baig MD Unavailable [phone] Reason for Visit * Reason Onset Date Comments Lab Results 08/29/2024 Encounter Details Date Type Department Care Team (Late st Contact Info) Description 08/29/2024 Telephone [facility] - [place] [address] [address] [place] [address] [place] [address] [place] [address] [address] [place] [address] Lab Results Social History Tobacco Use Types Packs/Day Years Used Date Smoking Tobacco: Former Cigarettes Smokeless Tobacco: Never Comments:Counseled by Dr. Sharon purcell. Alcohol Use Standard Drinks/Week Comments Not Currently 0 (1 standard drink = 0.6 oz pur e alcohol) PHQ-2 Answer Date Recorded Patient Health Questionnaire-2 Score 0 03/23/2024 Comments No Sex and Gender Information Value Date Recorded Sex Assigned at Not on file Legal Sex Female 8:25 PM CDT Gender Identity Not on file Sexual Orientation Not on file documented as of this encounter Progress Notes * Bahman Conrad - 08/29/2024 9:05 AM CST Babita from [facility] called and stated that patient's Potassium level was >8 and wanted further instruction from Dr. Olivares. Dr. Olivares suggested that patient go to ER [facility] and Babita v/a to follow protocol. ICAL TRIAL EDUCATOR documented in this encounter Plan of Treatment Upcoming Encounters Date Type Department Care Team (Late st Contact Info) Description 10/03/2024 11:00 AM CLINICAL TRIAL EDUCATOR Office Visit [facility] - [address] [address] Nathan Baig MD [address] [facility] [address] [place] [address] 11/14/2024 10:20 AM CLINICAL TRIAL EDUCATOR Office Visit [facility] - [place] [address] [address] [place] [address] Tracy Olivares MD [address] [place] [id number] documented as of this encounter Visit Diagnoses Not on filedocumented in this encounter Additional Health Concerns Assessment Noted Time PHQ-9 Depression Total Score: 2 09/14/19 24 11:30 AM CLINICAL TRIAL EDUCATOR documented as of this encounter Care Teams Core Sucker Relationship Specialty Start Date End Date Tracy Olivares MD [address] [place] [id number] PCP - General INTERNAL MEDICINE 01/02/21 Nathan Baig MD [address] [facility] [address] [place] [id number] Consulting Physician Internal Medicine Pulmonary Disease 09/16/21 documented as of this encounter
--- OUTSIDE RECORDS SUMMARY | 2024-09-07 05:21 | XMS_ITS | Continuity of Care Document ---
Author Organization [facility] Address [address] [place] [address] [id number] [place] [address]- Encounter 07/10/24 - 07/24/24 [facility] [address] [facility] [address] [place] [address]- Discharge Disposition: Home with Home Health Care Attending Physician: Genaro Jaramillo MD Admitting Physician: Genaro Jaramillo MD Allergies, Adverse Reactions, Alerts Substance Criticality Severity Reaction Reaction Severity Status celecoxib Allergy Active Assessment and Plan Extracted from: Title:Clinical Document Author:Jessica Morealnd Date:07/19/24 IDT reviewed resident? s current status and agrees that score match resident? s abilities and GG discharge goals are reasonable and measurable. See resident? s 5D for GG coding details. The information that was used to complete the [facility] admission, 5day and D/C for this patient was gathered using [facility], nursing and physical therapy documentation. The care plan was not updates by [facility] due to resident discharge before the day Extracted from: Title:Covid Outbreak Author:Suzy Land Date:07/18/24 Nurse Field Representative Fang wong family about covid outbreak. Will continue to monitor. Extracted from: Title:Clinical Document Author:Stacy Masters LPN Date:07/15/24 Patient is concerned about h er kidneys she is having right side flank pain. Advised patient that labs will be drawn tomorrow and that they would be reviewed by the providers for any concerns . Patient was offered a pain pill but she is reluctant stating that she does not want it to effect her kidneys. Education provided to the patient on importance of keeping her pain minimal to be able to participate in therapies. Patient declined tylenol. Non pharmacological interventions offered such as ice and re positioning , patient declined. Extracted from: Title:Nutrition follow-up note Author:Heike Renee RD Date:07/11/24 I added one EnsureHP with BF to help patient meet protein needs. Extracted from: Title:Clinical Document Author:Ksenia Ohara ate:07/11/24 Patient seen by RT, p/s she uses a CPAP at home. RT told patient she could have someone bring in her CPAP and she stated that she would think about it and let RT know if she decides to bring it in. Extracted from: Title:Secondary Skin Assessment Author:Ewelina Cunningham Date:07/11/24 Secondary Skin Assessment co mpleted. No areas of concern noted at this time. Education provided on skin hygiene and offloading pressure. Patient allowed this com writer to float heels. Extracted from: Title:Clinical Document Author:Sadi Warren Pharmacist Date:07/11/24 Pharmacy Progress Note Based upon the information available at the time of the review, and assuming the accuracy and completeness of such information, it is my professional judgement that at such time, the resident? s medication regimen contained no new irregularities Functional Status 07/23/24 Behaviors Exhibited Appropriate 07/11/24 Affect/Behavior Cooperative 07/10/24 Recent Travel History No recent travel Family Member Travel History No recent t ravel Immunizations Given and Recorded Vaccine Date Status Refusal Reason tuberculin purified protein derivative 07/11/24 Gi ken SARS-CoV-2 (COVID-19) Moderna-1273 06/28/24 Record ed Medications Albuterol (Eqv-ProAir HFA) 90 mcg/inh inhalation aerosol 2 puff(s), Inhale, q6hr, PRN as needed for wheezing, 0 Refill(s), Indication: sob/wheeze Start Date: 07/24/24 Status: Ordered aspirin 81 mg oral delayed release tablet = 1 tab(s), Oral, Daily, 0 Refill(s), Indication: anticoagulant Start Date: 07/24/24 Status: Ordered atorvastatin 20 mg oral tablet 20 mg, Oral, qPM, 0 Refill(s), Indication: cholesterol Start Date: 07/24/24 Status: Ordered cefepime 2 g/100 mL intravenous solution = 100 mL, IV, q12hr, IV Cefepime every 12 hrs for 6 weeks (06/28 through 08/09) 118 mL/hr, 0 Refill(s), Indication: osteomylitis Start Date: 07/24/24 Status: Ordered cetirizine 5 mg oral tablet = 1 tab(s), Oral, Daily, 0 Refill(s), Indication: allergies Start Date: 07/24/24 Status: Ordered cyclobenzaprine 10 mg oral tablet 10 mg, Oral, TID, PRN spasm, 0 Refill(s), Indication: muscle spasms Start Date: 07/24/24 Status: Ordered empagliflozin 25 mg oral tablet = 1 tab(s), Oral, qAM, 0 Refill(s), Indication: diabetes Start Date: 07/24/24 Status: Ordered famotidine 20 mg oral tablet = 1 tab(s), Oral, BID, 0 Refill(s), Indication: heart burn Start Date: 07/24/24 Status: Ordered gabapentin 300 mg oral capsule 300 mg, Oral, BID, 0 Refill(s), Indication: nerve pain Start Date: 07/24/24 Status: Ordered HYDROcodone-acetaminophen 5 mg-325 mg oral tablet 1 tab(s), Oral, q4hr, PRN as needed for pain, 0 Refill(s), Indication: pain Start Date: 07/24/24 Status: Ordered lidocaine 5% topical film 1 patch(es), Transdermal, q12hr, 0 Refill(s), Indication: pain Start Date: 07/24/24 Status: Ordered melatonin 3 mg oral tablet = 1 tab(s), Oral, Once a day (at bedtime), 0 Refill(s), Indication: insomnia Start Date: 07/24/24 Status: Ordered Milk of Magnesia 8% oral suspension 30 mL, Oral, Daily, PRN as needed for constipation, 0 Refill(s), Indication: constipation Start Date: 07/24/24 Status: Ordered polyethylene glycol 3350 oral powder for reconstitution 17 gm =, Oral, Daily, 0 Refill(s), Indication: constipation Start Date: 07/24/24 Status: Ordered senna 8.6 mg oral tablet 8.6 mg, Oral, BID, PRN as needed for constipation, 0 Refill(s), Indication: constipation Start Date: 07/24/24 Status: Ordered Trelegy Ellipta 200 mcg-62.5 mcg-25 mcg/inh inhalation powder 1 inh, Inhale, Daily, 0 Refill(s), Indication: bronchodilator Start Date: 07/24/24 Status: Ordered Tylenol Extra Strength 500 mg oral tablet = 2 tab(s), Oral, q12hr, 0 Refill(s), Indication: pain Start Date: 07/24/24 Status: Ordered Tylenol Extra Strength 500 mg oral tablet 500 mg, Oral, q6hr, PRN as needed for pain, 0 Refill(s), Indication: pain Start Date: 07/24/24 Status: Ordered Vitamin D3 2000 intl units (50 mcg) oral capsule 1 cap(s), Oral, Daily, 0 Refill(s), Indication: supplement Start Date: 07/24/24 Status: Ordered Results Laboratory List Name Date C Reactive Protein* ([facility]) 07/23/24 CBCwDiff* ([facility]) 07/23/24 Comp Met Plas* ([facility]) 07/23/24 CBC without Diff (WAM)* ([facility]) 07/16/24 Comp Met Plas* ([facility]) 07/16/24 Most recent to oldest [Reference Range]: 1 2 CO2, Total [22-32 mmol/L] 29 mmol/L 1 (07/23/24 5:30 AM) 28 mmol/L 2 (07/16/24 5:56 AM) NUC RBC Absolute, Automated [0.00-0.01] 0.00 3 (07/23/24 5:30 AM) 0.00 4 (07/16/24 5:56 AM) Basophil, Absolute [0.0-0.1] 0.1 5 (07/23/24 5:30 AM) Eosinophil, Absolute [0.0-0.5] 0.3 6 (07/23/24 5:30 AM) Eosinophil, Percent 6.7 % 7 (07/23/24 5:30 AM) Immature Granulocytes, Percent 0.2 % 8 (07/23/24 5:30 AM) Calcium, Total [8.5-10.3 mg/dL] 9.8 mg/d L 9 (07/23/24 5:30 AM) 9.5 mg/dL 10 (07/16/24 5:56 AM) Basophil, Percent 1.0 % 11 (07/23/24 5:30 AM) Immature Granulocytes, Absolute [0.0-0.1 ] 0.0 12 (07/23/24 5:30 AM) Plasma Potassium [3.3-4.9 mmol/L] 4.3 mm ol/L 13 (07/23/24 5:30 AM) 4.0 mmol/L 14 (07/16/24 5:56 AM) Plasma Total Protein [6.5-8.5 gm/dL] 6.6 gm/dL 15 (07/23/24 5:30 AM) 6.6 gm/dL 16 (07/16/24 5:56 AM) WBC [3.8-9.9] 4.9 17 (07/23/24 5:30 AM) 5.8 18 (07/16/24 5:56 AM) RBC [3.90-5.20] 3.85 19 *LOW* (07/23/24 5:30 AM) 3.76 20 *LOW* (07/16/24 5:56 AM) BUN [6-25 mg/dL] 18 mg/dL 21 (07/23/24 5:30 AM) 13 mg/dL 22 (07/16/24 5:56 AM) MCV [81.3-96.4 fL] 91.7 fL 23 (07/23/24 5:30 AM) 92.0 fL 24 (07/16/24 5:56 AM) AST [10-45] 25 25 (07/23/24 5:30 AM) 15 26 (07/16/24 5:56 AM) ALT [7-45] 19 27 (07/23/24 5:30 AM) 14 28 (07/16/24 5:56 AM) MCHC [32.3-35.7 gm/dL] 31.2 gm/dL 29 *LOW* (07/23/24 5:30 AM) 31.5 gm/dL 30 *LOW* (07/16/24 5:56 AM) Hct [35.6-45.5 %] 35.3 % 31 *LOW* (07/23/24 5:30 AM) 34.6 % 32 *LOW* (07/16/24 5:56 AM) Glucose Lvl [70-199 mg/dL] 94 mg/dL 33 (07/23/24 5:30 AM) 90 mg/dL 34 (07/16/24 5:56 AM) MCH [27.1-33.3 pg] 28.6 pg 35 (07/23/24 5:30 AM) 29.0 pg 36 (07/16/24 5:56 AM) Hgb [11.9-15.5 gm/dL] 11.0 gm/dL 37 *LOW* (07/23/24 5:30 AM) 10.9 gm/dL 38 *LOW* (07/16/24 5:56 AM) MPV [9.1-12.3 fL] 9.9 fL 39 (07/23/24 5:30 AM) 10.0 fL 40 (07/16/24 5:56 AM) Chloride [97-110 mmol/L] 105 mmol/L 41 (07/23/24 5:30 AM) 105 mmol/L 42 (07/16/24 5:56 AM) Albumin [3.5-5.0 gm/dL] 3.4 gm/dL 43 *LOW* (07/23/24 5:30 AM) 3.5 gm/dL 44 (07/16/24 5:56 AM) Creatinine* [facility] [0.60-1.10 mg/dL] 0.66 mg/dL 45 (07/23/24 5:30 AM) 0.66 mg/dL 46 (07/16/24 5:56 AM) Sodium [135-145 mmol/L] 140 mmol/L 47 (07/23/24 5:30 AM) 140 mmol/L 48 (07/16/24 5:56 AM) Alkaline Phosphatase [40-130] 152 49 *HI* (07/23/24 5:30 AM) 141 50 *HI* (07/16/24 5:56 AM) Neutrophils (Absolute) [1.5-6.5] 2.5 51 (07/23/24 5:30 AM) Iron Absolute [0.2-0.8] 0.5 52 (07/23/24 5:30 AM) Platelet Count [150-400] 247 53 (07/23/24 5:30 AM) 256 54 (07/16/24 5:56 AM) Anion Gap [2-15 mmol/L] 6 mmol/L 55 (07/23/24 5:30 AM) 7 mmol/L 56 (07/16/24 5:56 AM) eGFR [>=60] >90 57 (07/23/24 5:30 AM) >90 58 (07/16/24 5:56 AM) Lymphocytes Absolute [0.8-3.3] 1.5 59 (07/23/24 5:30 AM) Bilirubin Total [0.1-1.2 mg/dL] 0.3 mg/d L 60 (07/23/24 5:30 AM) 0.3 mg/dL 61 (07/16/24 5:56 AM) C-Reactive Protein [<=10.0 mg/L] 29.6 mg /L 62 *HI* (07/23/24 5:30 AM) Neutrophils % 50.8 % 63 (07/23/24 5:30 AM) Monocytes % 10.6 % 64 (07/23/24 5:30 AM) Lymphocytes % Man 30.7 % 65 (07/23/24 5:30 AM) RDW SD [35.7-48.1 fL] 52.8 fL 66 *HI* (07/23/24 5:30 AM) 52.8 fL 67 *HI* (07/16/24 5:56 AM) RDW CV [11.1-14.9 %] 15.8 % 68 *HI* (07/23/24 5:30 AM) 15.7 % 69 *HI* (07/16/24 5:56 AM) 1Result Comment: [address] [address] 2Result Comment: [address] 16[address] 3Result Comment: [address] [address] 4Result Comment: [address] 185[address] 5Result Comment: [address] 615[address] 6Result Comment: [address] 10862 7Result Comment: Interpretive Data Percent cell count reference ranges are not reported, since discordance with absolute values may lead to misinterpretation of CBC data. Current Interpretive Data was last revised on 2017. [address] [address] 8Result Comment: Interpretive Data Percent cell count reference ranges are not reported, since discordance with absolute values may lead to misinterpretation of CBC data. Current Interpretive Data was last revised on 2017. [facility], [address] [place] [address]., [address] 9Result Comment: [address] [address] 10Result Comment: [address] 23305 11Result Comment: Interpretive Data Percent cell count reference ranges are not reported, since discordance with absolute values may lead to misinterpretation of CBC data. Current Interpretive Data was last revised on 2017. [facility], [address] [place] [address]., 39872 12Result Comment: [address] 578[address] 13Result Comment: [address] 13313 14Result Comment: [address] 523[address] 15Result Comment: [address] 53[address] 16Result Comment: [address] 40990 17Result Comment: [address] 45920 18Result Comment: [address] 626[address] 19Result Comment: [address] 00283 20Result Comment: [address] 92655 21Result Comment: [address] 68092 22Result Comment: [address] 52921 23Result Comment: [address] 09208 24Result Comment: [address] 55735 25Result Comment: [address] 76073 26Result Comment: [address] 16874 27Result Comment: [address] 38551 28Result Comment: [address] 82845 29Result Comment: [address] 96709 30Result Comment: [address] 18462 31Result Comment: [address] 05690 32Result Comment: [address] 64094 33Result Comment: Interpretive Data Fasting glucose >/= 126 mg/dl is diagnostic for diabetes. Fasting is defined as no caloric intake for at least 8 hours. Fasting glucose between 100 mg/dl to 125 mg/dl is diagnostic of prediabetes. In a patient with classic symptoms of hyperglycemia or hyperglycemic crisis, a random glucose >/= 200 mg/dl is diagnostic for diabetes. In the absence of unequivocal hyperglycemia, results should be confirmed by repeat testing. The classification and Diagnosis of Diabetes Diabetes Care 202; 46: S19-S40. Current interpretive data was last revised 2022. [address] [address] 34Result Comment: Interpretive Data Fasting glucose >/= 126 mg/dl is diagnostic for diabetes. Fasting is defined as no caloric intake for at least 8 hours. Fasting glucose between 100 mg/dl to 125 mg/dl is diagnostic of prediabetes. In a patient with classic symptoms of hyperglycemia or hyperglycemic crisis, a random glucose >/= 200 mg/dl is diagnostic for diabetes. In the absence of unequivocal hyperglycemia, results should be confirmed by repeat testing. The classification and Diagnosis of Diabetes Diabetes Care 2; 46: S19-S40. Current interpretive data was last revised 2022. [address] [address] 35Result Comment: [address] 70437 36Result Comment: [address] 50859 37Result Comment: [address] 15587 38Result Comment: [address] 03293 39Result Comment: [facility], [address] [place] [address]., 74368 40Result Comment: [facility], [address] [place] [address]., 168[address] 41Result Comment: [address] 70295 42Result Comment: [address] 28117 43Result Comment: [address] 13214 44Result Comment: [address] 69143 45Result Comment: [address] 70440 46Result Comment: [address] 53439 47Result Comment: [address] 09521 48Result Comment: [address] 44108 49Result Comment: [address] 24244 50Result Comment: [address] 69032 51Result Comment: [address] 50117 52Result Comment: [address] 11537 53Result Comment: [address] 86031 54Result Comment: [address] 48926 55Result Comment: [address] 50932 56Result Comment: [address] 50873 57Result Comment: Interpretive Data Reference Interval Normal >/= 90 mL/min/1.73m2 Mildly decreased* 60 - 89 mL/min/1.73m2 Mildly to moderately decreased 45 - 59 mL/min/1.73m2 Moderately to severely decreased 30 - 44 mL/min/1.73m2 Severely decreased 15 - 29 mL/min/1.73m2 Kidney Failure < 15 mL/min/1.73m2 *Relative to young adult level Estimated glomerular filtration rate is determined by the 2020 CKD-EPI equation recommended by the National Kid[employer] (A Unifying Approach to GFR Estimation: Recommendations of the [employer]F-ASK Task Force on Reassessing the Inclusion of Race in Diagnosing Kidney Disease, JASN 2021). The CKD-EPI equation should not be used for patients with unstable renal function and has not been validated in children and those over 70. Current interpretive data was last reviewed 2021. [address] [address] 58Result Comment: Interpretive Data Reference Interval Normal >/= 90 mL/min/1.73m2 Mildly decreased* 60 - 89 mL/min/1.73m2 Mildly to moderately decreased 45 - 59 mL/min/1.73m2 Moderately to severely decreased 30 - 44 mL/min/1.73m2 Severely decreased 15 - 29 mL/min/1.73m2 Kidney Failure < 15 mL/min/1.73m2 *Relative to young adult level Estimated glomerular filtration rate is determined by the 2020 CKD-EPI equation recommended by the National Kid[employer] Foundation (A Unifying Approach to GFR Estimation: Recommendations of the NKF-ASK Task Force on Reassessing the Inclusion of Race in Diagnosing Kidney Disease, JASN 2021). The CKD-EPI equation should not be used for patients with unstable renal function and has not been validated in children and those over 70. Current interpretive data was last reviewed 2021. [address] [address] 59Result Comment: [address] 39850 60Result Comment: [address] 82808 61Result Comment: [address] 78637 62Result Comment: [address] 80780 63Result Comment: Interpretive Data Percent cell count reference ranges are not reported, since discordance with absolute values may lead to misinterpretation of CBC data. Current Interpretive Data was last revised on 2017. [address] 61559 64Result Comment: Interpretive Data Percent cell count reference ranges are not reported, since discordance with absolute values may lead to misinterpretation of CBC data. Current Interpretive Data was last revised on 2017. [facility], [address] [place] [address]., [address] 65Result Comment: Interpretive Data Percent cell count reference ranges are not reported, since discordance with absolute values may lead to misinterpretation of CBC data. Current Interpretive Data was last revised on 2017. [facility], [address] [place] [address]., [address] 66Result Comment: [address] 48149 67Result Comment: [address] 08406 68Result Comment: [address] 29129 69Result Comment: [address] [address] Vital Signs Most recent to oldest [Reference Range]: 1 Blood Pressure [90-120/60-80 mmHg] 121/7 8mmHg *HI* (07/24/24 9:26 AM) Temperature Oral [96.98-99.5 DegF] 97.9 DegF (07/24/24 9:25 AM) Peripheral Pulse Rate [60-100 bpm] 79 bp m (07/24/24 9:26 AM) Respiratory Rate [14-20 br/min] 20 br/mi n (07/24/24 9:26 AM) Temperature Infrared [96.44-98.42 DegF] 97.5 DegF (07/23/24 8:36 AM) Height/Length Measured-inches 65.5 in (07/10/24 1:48 PM) Weight Measured-lbs 286 lb (07/11/24 6:07 PM) Weight Measured 132 kg (07/11/24 12:05 PM) Social History Social History Type Response Smoking Status Never (less than 100 in lifetime); Type: Cigarettes entered on: 07/10/24 Sex Hospital Discharge Instructions Patient Education 07/24/2024 09:07:28 Managing Chronic Back Pain Managing Chronic Back Pain Chronic back pain is back pain that lasts for 12 weeks or longer. It often affects the lower back. Back pain may feel like a muscle ache or a sharp, stabbing pain. It can be mild, moderate, or severe. If you have been diagnosed with chronic back pain, there are things you can do to manage your symptoms. You may have to try different things to see what works best for you. Your health care provider may also give you specific instructions. How to manage lifestyle changes Treating chronic back pain often starts with rest and pain relief, followed by exercises to restoremovement and strength to your back (physical therapy). You may need surgery if other treatments do not help, or if your pain is caused by a condition or an injury. Follow your treatment plan as told by your health care provider. This may include: ??? Relaxation techniques. ??? Talk therapy or counseling with a mental health specialist. A form of talk therapy called cognitive behavioral therapy (CBT) can be especially helpful. This therapy helps you set goals and followup on the changes that you make. ??? Acupuncture or massage therapy. ??? Local electrical stimulation. ??? Injections. These deliver numbing or pain-relieving medicines into your spine or the area of pain. How to recognize changes in your chronic back pain Your condition may improve with treatment. However, back pain may not go away or may get worse overtime. Watch your symptoms carefully and let your health care provider know if your symptoms get worse or do not improve. Your back pain may be getting worse if you have: ??? Pain that begins to cause problems with posture. ??? Pain that gets worse when you are sitting, standing, walking, bending, or lifting. ??? Pain that affects you while you are active, or at rest, or both. ??? Pain that eventually makes it hard to move around (limits mobility). ??? Pain that occurs with fever, weight loss, or difficulty urinating. ??? Pain that causes numbness and tingling. How to use body mechanics and posture to help with pain Healthy body mechanics and good posture can help to relieve stress on your back. Body mechanics refers to the movements and positions of your body during your daily activities. Posture is part of body mechanics. Good posture means: ??? Your spine is in its natural S-curve, or neutral, position. ??? Your shoulders are pulled back slightly. ??? Your head is not tipped forward. Follow these guidelines to improve your posture and body mechanics in your everyday activities. Standing ??? When standing, keep your spine neutral and your feet about hip-width apart. Keep your knees slightly bent. Your ears, shoulders, and hips should line up. ??? 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 This helps keep your spine neutral. Sitting ??? When sitting, keep your spine neutral and your feet flat on the floor. Use a footrest, if necessary, and keep your thighs parallel to the floor. Avoid rounding your shoulders, and avoid tilting your head forward. ??? When working at a desk or a computer, keep your desk at a height where your hands are slightly lower than your elbows. Slide your chair under your desk so you are close enough to maintain good posture. ??? When working at a computer, place your monitor at a height where you are looking straight aheadand you do not have to tilt your head forward or downward to view the screen. Lifting ??? Keep your feet at least shoulder-width apart and tighten the muscles of your abdomen. ??? Bend your knees and hips and keep your spine neutral. Be sure to lift using the strength of your legs, not your back. Do not lock your knees straight out. ??? Always ask for help to lift heavy or awkward objects. Resting ??? When lying down and resting, avoid positions that are most painful. ??? If you have pain with activities such as sitting, bending, stooping, or squatting, lie in a position in which your body does not bend very much. For example, avoid curling up on your side with your arms and knees near your chest ( position). ??? If you have pain with activities such as standing for a long time or reaching with your arms, lie with your spine in a neutral position and bend your knees slightly. Try: ??? Lying on your side with a pillow between your knees. ??? Lying on your back with a pillow under your knees. Follow these instructions at home: Medicines ??? Treatment may include bvsn-lxn-yhphczh or prescription medicines for pain and inflammation thatare taken by mouth or applied to the skin. Another treatment may include muscle relaxants. Take yndz-rlu-aicosae and prescription medicines only as told by your health care provider. ??? Ask your health care provider if the medicine prescribed to you: ??? Requires you to avoid driving or using machinery. ??? Can cause constipation. You may need to take these actions to prevent or treat constipation: ??? Drink enough fluid to keep your urine pale yellow. ??? Take diwh-nas-xdyxyyf or prescription medicines. ??? Eat foods that are high in fiber, such as beans, whole grains, and fresh fruits and vegetables. ??? Limit foods that are high in fat and processed sugars, such as fried or sweet foods. Lifestyle ??? Do not use any products that contain nicotine or tobacco, such as cigarettes, e-cigarettes, andchewing tobacco. If you need help quitting, ask your health care provider. ??? Eat a healthy diet that includes foods such as vegetables, fruits, fish, and lean meats. ??? Work with your health care provider to achieve or maintain a healthy weight. General instructions ??? Get regular exercise as told. Exercise improves flexibility and strength. ??? If physical therapy was prescribed, do exercises as told by your health care provider. ??? Use ice or heat therapy as told by your health care provider. ??? Keep all follow-up visits as told by your health care provider. This is important. Where can I get support? Consider joining a support group for people managing chronic back pain. Ask your health care provider about support groups in your area. You can also find online and in-person support groups through: ??? The [place] [employer]: theacpa.org ??? Pain Connection Program: painconnection.org Contact a health care provider if: ??? You have pain that is not relieved with rest or medicine. ??? Your pain gets worse, or you have new pain. ??? You have a fever. ??? You have rapid weight loss. ??? You have trouble doing your normal activities. Get help right away if: ??? You have weakness or numbness in one or both of your legs or feet. ??? You have trouble controlling your bladder or your bowels. ??? You have severe back pain and have any of the following: ??? Nausea or vomiting. ??? Abdominal pain. ??? Shortness of breath or you faint. Summary ??? Chronic back pain is often treated with rest, pain relief, and physical therapy. ??? Talk therapy, acupuncture, massage, and local electrical stimulation may help. ??? Follow your treatment plan as told by your health care provider. ??? Joining a support group may help you manage chronic back pain. This information is not intended to replace advice given to you by your health care provider. Make sure you discuss any questions you have with your health care provider. Document Revised: 10/09/2020 Document Reviewed: 06/17/2020 [employer] Patient Education ?? 2021 [employer]. 07/24/2024 09:06:58 Sleep Apnea, Kqzf-vk-Rwhs Sleep Apnea Sleep apnea affects breathing during sleep. It causes breathing to stop for 10 seconds or more, or to become shallow. People with sleep apnea usually snore loudly. It can also increase the risk of: ??? Heart attack. ??? Stroke. ??? Being very overweight (obese). ??? Diabetes. ??? Heart failure. ??? Irregular heartbeat. ??? High blood pressure. The goal of treatment is to help you breathe normally again. What are the causes? The most common cause of this condition is a collapsed or blocked airway. There are three kinds of sleep apnea: ??? Obstructive sleep apnea. This is caused by a blocked or collapsed airway. ??? Central sleep apnea. This happens when the brain does not send the right signals to the musclesthat control breathing. ??? Mixed sleep apnea. This is a combination of obstructive and central sleep apnea. What increases the risk? Being overweight. ??? Smoking. ??? Having a small airway. ??? Being older. ??? Being male. ??? Drinking alcohol. ??? Taking medicines to calm yourself (sedatives or tranquilizers). ??? Having family members with the condition. ??? Having a tongue or tonsils that are larger than normal. What are the signs or symptoms? Trouble staying asleep. ??? Loud snoring. ??? Headaches in the morning. ??? Waking up gasping. ??? Dry mouth or sore throat in the morning. ??? Being sleepy or tired during the day. If you are sleepy or tired during the day, you may also: ??? Not be able to focus your mind (concentrate). ??? Forget things. ??? Get angry a lot and have mood swings. ??? Feel sad (depressed). ??? Have changes in your personality. ??? Have less interest in sex, if you are female. ??? Be unable to have an erection, if you are male. How is this treated? Sleeping on your side. ??? Using a medicine to get rid of mucus in your nose (decongestant). ??? Avoiding the use of alcohol, medicines to help you relax, or certain pain medicines (narcotics). ??? Losing weight, if needed. ??? Changing your diet. ??? Quitting smoking. ??? Using a machine to open your airway while you sleep, such as: ??? An oral appliance. This is a mouthpiece that shifts your lower jaw forward. ??? A CPAP device. This device blows air through a mask when you breathe out (exhale). ??? An EPAP device. This has valves that you put in each nostril. ??? A BIPAP device. This device blows air through a mask when you breathe in (inhale) and breathe out. ??? Having surgery if other treatments do not work. Follow these instructions at home: Lifestyle ??? Make changes that your doctor recommends. ??? Eat a healthy diet. ??? Lose weight if needed. ??? Avoid alcohol, medicines to help you relax, and some pain medicines. ??? Do not smoke or use any products that contain nicotine or tobacco. If you need help quitting, ask your doctor. General instructions ??? Take tfoe-iyu-lsjnkdp and prescription medicines only as told by your doctor. ??? If you were given a machine to use while you sleep, use it only as told by your doctor. ??? If you are having surgery, make sure to tell your doctor you have sleep apnea. You may need to bring your device with you. ??? Keep all follow-up visits. Contact a doctor if: ??? The machine that you were given to use during sleep bothers you or does not seem to be working. ??? You do not get better. ??? You get worse. Get help right away if: ??? Your chest hurts. ??? You have trouble breathing in enough air. ??? You have an uncomfortable feeling in your back, arms, or stomach. ??? You have trouble talking. ??? One side of your body feels weak. ??? A part of your face is hanging down. These symptoms may be an emergency. Get help right away. Call your local emergency services (911 int [place] ??? Do not wait to see if the symptoms will go away. ??? Do not drive yourself to the hospital. Summary ??? This condition affects breathing during sleep. ??? The most common cause is a collapsed or blocked airway. ??? The goal of treatment is to help you breathe normally while you sleep. This information is not intended to replace advice given to you by your health care provider. Make sure you discuss any questions you have with your health care provider. Document Revised: 04/07/2022 Document Reviewed: 08/07/2021 [employer] Patient Education ?? 2021 [employer]. 07/24/2024 09:06:49 Sciatica, Xphq-uv-Laer Sciatica Sciatica is pain, weakness, tingling, or loss of feeling (numbness) along the sciatic nerve. The sciatic nerve starts in the lower back and goes down the back of each leg. Sciatica usually goes away on its own or with treatment. Sometimes, sciatica may come back (recur). What are the causes? This condition happens when the sciatic nerve is pinched or has pressure put on it. This may be theresult of: ??? A disk in between the bones of the spine bulging out too far (herniated disk). ??? Changes in the spinal disks that occur with aging. ??? A condition that affects a muscle in the butt. ??? Extra bone growth near the sciatic nerve. ??? A break (fracture) of the area between your hip bones (pelvis). ??? . ??? Tumor. This is rare. What increases the risk? You are more likely to develop this condition if you: ??? Play sports that put pressure or stress on the spine. ??? Have poor strength and ease of movement (flexibility). ??? Have had a back injury in the past. ??? Have had back surgery. ??? Sit for long periods of time. ??? Do activities that involve bending or lifting over and over again. ??? Are very overweight (obese). What are the signs or symptoms? Symptoms can vary from mild to very bad. They may include: ??? Any of these problems in the lower back, leg, hip, or butt: ??? Mild tingling, loss of feeling, or dull aches. ??? Burning sensations. ??? Sharp pains. ??? Loss of feeling in the back of the calf or the sole of the foot. ??? Leg weakness. ??? Very bad back pain that makes it hard to move. These symptoms may get worse when you cough, sneeze, or laugh. They may also get worse when you sitor stand for long periods of time. How is this treated? This condition often gets better without any treatment. However, treatment may include: ??? Changing or cutting back on physical activity when you have pain. ??? Doing exercises and stretching. ??? Putting ice or heat on the affected area. ??? Medicines that help: ??? To relieve pain and swelling. ??? To relax your muscles. ??? Shots (injections) of medicines that help to relieve pain, irritation, and swelling. ??? Surgery. Follow these instructions at home: Medicines ??? Take ocrk-szg-gfaldjg and prescription medicines only as told by your doctor. ??? Ask your doctor if the medicine prescribed to you: ??? Requires you to avoid driving or using heavy machinery. ??? Can cause trouble pooping (constipation). You may need to take these steps to prevent or treat trouble pooping: ??? Drink enough fluids to keep your pee (urine) pale yellow. ??? Take zbho-ddz-egtzfeo or prescription medicines. ??? Eat foods that are high in fiber. These include beans, whole grains, and fresh fruits and vegetables. ??? Limit foods that are high in fat and sugar. These include fried or sweet foods. Managing pain ??? If told, put ice on the affected area. ??? Put ice in a plastic bag. ??? Place a towel between your skin and the bag. ??? Leave the ice on for 20 minutes, 2???3 times a day. ??? If told, put heat on the affected area. Use the heat source that your doctor tells you to use, such as a moist heat pack or a heating pad. ??? Place a towel between your skin and the heat source. ??? Leave the heat on for 20???30 minutes. ??? Remove the heat if your skin turns bright red. This is very important if you are unable to feelpain, heat, or cold. You may have a greater risk of getting burned. Activity ??? Return to your normal activities as told by your doctor. Ask your doctor what activities are safe for you. ??? Avoid activities that make your symptoms worse. ??? Take short rests during the day. ??? When you rest for a long time, do some physical activity or stretching between periods of rest. ??? Avoid sitting for a long time without moving. Get up and move around at least one time each hour. ??? Exercise and stretch regularly, as told by your doctor. ??? Do not lift anything that is heavier than 10 lb (4.5 kg) while you have symptoms of sciatica. ??? Avoid lifting heavy things even when you do not have symptoms. ??? Avoid lifting heavy things over and over. ??? When you lift objects, always lift in a way that is safe for your body. To do this, you should: ??? Bend your knees. ??? Keep the object close to your body. ??? Avoid twisting. General instructions ??? Stay at a healthy weight. ??? Wear comfortable shoes that support your feet. Avoid wearing high heels. ??? Avoid sleeping on a mattress that is too soft or too hard. You might have less pain if you sleep on a mattress that is firm enough to support your back. ??? Keep all follow-up visits as told by your doctor. This is important. Contact a doctor if: ??? You have pain that: ??? Wakes you up when you are sleeping. ??? Gets worse when you lie down. ??? Is worse than the pain you have had in the past. ??? Lasts longer than 4 weeks. ??? You lose weight without trying. Get help right away if: ??? You cannot control when you pee (urinate) or poop (have a bowel movement). ??? You have weakness in any of these areas and it gets worse: ??? Lower back. ??? The area between your hip bones. ??? Butt. ??? Legs. ??? You have redness or swelling of your back. ??? You have a burning feeling when you pee. Summary ??? Sciatica is pain, weakness, tingling, or loss of feeling (numbness) along the sciatic nerve. ??? This condition happens when the sciatic nerve is pinched or has pressure put on it. ??? Sciatica can cause pain, tingling, or loss of feeling (numbness) in the lower back, legs, hips,and butt. ??? Treatment often includes rest, exercise, medicines, and putting ice or heat on the affected area. This information is not intended to replace advice given to you by your health care provider. Make sure you discuss any questions you have with your health care provider. Document Revised: 09/17/2019 Document Reviewed: 09/17/2019 [employer] Patient Education ?? 2021 [employer]. 07/24/2024 09:06:39 Preventing High Cholesterol Preventing High Cholesterol Cholesterol is a white, waxy substance similar to fat that the human body needs to help build cells. The liver makes all the cholesterol that a person's body needs. Having high cholesterol (hypercholesterolemia) increases your risk for heart disease and stroke. Extra or excess cholesterol comes from the food that you eat. High cholesterol can often be prevented with diet and lifestyle changes. If you already have high cholesterol, you can control it with diet, lifestyle changes, and medicines. How can high cholesterol affect me? If you have high cholesterol, fatty deposits (plaques) may build up on the carpio of your blood vessels. The blood vessels that carry blood away from your heart are called arteries. Plaques make the arteries narrower and stiffer. This in turn can: ??? Restrict or block blood flow and cause blood clots to form. ??? Increase your risk for heart attack and stroke. What can increase my risk for high cholesterol? This condition is more likely to develop in people who: ??? Eat foods that are high in saturated fat or cholesterol. Saturated fat is mostly found in foodsthat come from animal sources. ??? Are overweight. ??? Are not getting enough exercise. ??? Use products that contain nicotine or tobacco, such as cigarettes, e- cigarettes, and chewing tobacco. ??? Have a family history of high cholesterol (familial hypercholesterolemia). What actions can I take to prevent this? Nutrition ??? Eat less saturated fat. ??? Avoid trans fats (partially hydrogenated oils). These are often found in margarine and in some baked goods, fried foods, and snacks bought in packages. ??? Avoid precooked or cured meat, such as mckay, sausages, or meat loaves. ??? Avoid foods and drinks that have added sugars. ??? Eat more fruits, vegetables, and whole grains. ??? Choose healthy sources of protein, such as fish, poultry, lean cuts of red meat, beans, peas, lentils, and nuts. ??? Choose healthy sources of fat, such as: ??? Nuts. ??? Vegetable oils, especially olive oil. ??? Fish that have healthy fats, such as omega-3 fatty acids. These fish include mackerel or salmon. Lifestyle ??? Lose weight if you are overweight. Maintaining a healthy body mass index (BMI) can help preventor control high cholesterol. It can also lower your risk for diabetes and high blood pressure. Ask your health care provider to help you with a diet and exercise plan to lose weight safely. ??? Do not use any products that contain nicotine or tobacco. These products include cigarettes, chewing tobacco, and vaping devices, such as e-cigarettes. If you need help quitting, ask your health care provider. Alcohol use ??? Do not drink alcohol if: ??? Your health care provider tells you not to drink. ??? You are , may be , or are planning to become . ??? If you drink alcohol: ??? Limit how much you have to: ??? 0???1 drink a day for women. ??? 0???2 drinks a day for men. ??? Know how much alcohol is in your drink. In the [place] one drink equals one 12 oz bottle of beer (355 mL), one 5 oz glass of wine (148 mL), or one 1?? oz glass of hard liquor (44 mL). Activity ??? Get enough exercise. Do exercises as told by your health care provider. ??? Each week, do at least 150 minutes of exercise that takes a medium level of effort (moderate-intensity exercise). This kind of exercise: ??? Makes your heart beat faster while allowing you to still be able to talk. ??? Can be done in short sessions several times a day or longer sessions a few times a week. For example, on 5 days each week, you could walk fast or ride your bike 3 times a day for 10 minutes each time. Medicines ??? Your health care provider may recommend medicines to help lower cholesterol. This may be a medicine to lower the amount of cholesterol that your liver makes. You may need medicine if: ??? Diet and lifestyle changes have not lowered your cholesterol enough. ??? You have high cholesterol and other risk factors for heart disease or stroke. ??? Take zlcz-eqn-ycpagtc and prescription medicines only as told by your health care provider. General information ??? Manage your risk factors for high cholesterol. Talk with your health care provider about all your risk factors and how to lower your risk. ??? Manage other conditions that you have, such as diabetes or high blood pressure (hypertension). ??? Have blood tests to check your cholesterol levels at regular points in time as told by your health care provider. ??? Keep all follow-up visits. This is important. Where to find more information ??? [place] [employer]: www.heart.org ??? National Heart, Lung, and Blood Almo: www.nhlbi.nih.gov Summary ??? High cholesterol increases your risk for heart disease and stroke. By keeping your cholesterol level low, you can reduce your risk for these conditions. ??? High cholesterol can often be prevented with diet and lifestyle changes. ??? Work with your health care provider to manage your risk factors, and have your blood tested regularly. This information is not intended to replace advice given to you by your health care provider. Make sure you discuss any questions you have with your health care provider. Document Revised: 11/02/2021 Document Reviewed: 11/02/2021 [employer] Patient Education ?? 2021 [employer]. 07/24/2024 09:06:36 Food Choices for Gastroesophageal Reflux Disease, Adult, Ubem-jq-Vbzt Food Choices for Gastroesophageal Reflux Disease, Adult When you have gastroesophageal reflux disease (GERD), the foods you eat and your eating habits are very important. Choosing the right foods can help ease your discomfort. Think about working with a food expert (dietitian) to help you make good choices. What are tips for following this plan? Reading food labels ??? Look for foods that are low in saturated fat. Foods that may help with your symptoms include: ??? Foods that have less than 5% of daily value (DV) of fat. ??? Foods that have 0 grams of trans fat. Cooking ??? Do not rivas your food. ??? Cook your food by baking, steaming, grilling, or broiling. These are all methods that do not need a lot of fat for cooking. ??? To add flavor, try to use herbs that are low in spice and acidity. Meal planning ??? Choose healthy foods that are low in fat, such as: ??? Fruits and vegetables. ??? Whole grains. ??? Low-fat dairy products. ??? Lean meats, fish, and poultry. ??? Eat small meals often instead of eating 3 large meals each day. Eat your meals slowly in a place where you are relaxed. Avoid bending over or lying down until 2???3 hours after eating. ??? Limit high-fat foods such as fatty meats or fried foods. ??? Limit your intake of fatty foods, such as oils, butter, and shortening. ??? Avoid the following as told by your doctor: ??? Foods that cause symptoms. These may be different for different people. Keep a food diary to keep track of foods that cause symptoms. ??? Alcohol. ??? Drinking a lot of liquid with meals. ??? Eating meals during the 2???3 hours before bed. Lifestyle ??? Stay at a healthy weight. Ask your doctor what weight is healthy for you. If you need to lose weight, work with your doctor to do so safely. ??? Exercise for at least 30 minutes on 5 or more days each week, or as told by your doctor. ??? Wear loose-fitting clothes. ??? Do not smoke or use any products that contain nicotine or tobacco. If you need help quitting, ask your doctor. ??? Sleep with the head of your bed higher than your feet. Use a wedge under the mattress or blocksunder the bed frame to raise the head of the bed. ??? Chew sugar-free gum after meals. What foods should eat? Eat a healthy, well-balanced diet of fruits, vegetables, whole grains, low-fat dairy products, leanmeats, fish, and poultry. Each person is different. Foods that may cause symptoms in one person may not cause any symptoms in another person. Work withyour doctor to find foods that are safe for you. The items listed above may not be a complete list of what you can eat and drink. Contact a food expert for more options. What foods should I avoid? Limiting some of these foods may help in managing the symptoms of GERD. Everyone is different. Talkwith a food expert or your doctor to help you find the exact foods to avoid, if any. Fruits Any fruits prepared with added fat. Any fruits that cause symptoms. For some people, this may include citrus fruits, such as oranges, grapefruit, pineapple, and halima. Vegetables Deep-fried vegetables. Setswana fries. Any vegetables prepared with added fat. Any vegetables that cause symptoms. For some people, this may include tomatoes and tomato products, chili peppers, onions and garlic, and horseradish. Grains Pastries or quick breads with added fat. Meats and other proteins High-fat meats, such as fatty beef or pork, hot dogs, ribs, ham, sausage, salami, and mckay. Fried meat or protein, including fried fish and fried chicken. Nuts and nut butters, in large amounts. Dairy Whole milk and chocolate milk. Sour cream. Cream. Ice cream. Cream cheese. Milkshakes. Fats and oils Butter. Margarine. Shortening. Ghee. Beverages Coffee and tea, with or without caffeine. Carbonated beverages. Sodas. Energy drinks. Fruit juice made with acidic fruits, such as orange or grapefruit. Tomato juice. Alcoholic drinks. Sweets and desserts Chocolate and cocoa. Donuts. Seasonings and condiments Pepper. Peppermint and spearmint. Added salt. Any condiments, herbs, or seasonings that cause symptoms. For some people, this may include killian, hot sauce, or vinegar-based salad dressings. The items listed above may not be a complete list of what you should not eat and drink. Contact a food expert for more options. Questions to ask your doctor Diet and lifestyle changes are often the first steps that are taken to manage symptoms of GERD. If diet and lifestyle changes do not help, talk with your doctor about taking medicines. Where to find more information ??? International Foundation for Gastrointestinal Disorders: aboutgerd.org Summary ??? When you have GERD, food and lifestyle choices are very important in easing your symptoms. ??? Eat small meals often instead of 3 large meals a day. Eat your meals slowly and in a place where you are relaxed. ??? Avoid bending over or lying down until 2???3 hours after eating. ??? Limit high-fat foods such as fatty meats or fried foods. This information is not intended to replace advice given to you by your health care provider. Make sure you discuss any questions you have with your health care provider. Document Revised: 03/09/2021 Document Reviewed: 03/09/2021 [employer] Patient Education ?? 2021 [employer]. 07/24/2024 09:06:32 Preventing Hypertension Preventing Hypertension Hypertension, also called high blood pressure, is when the force of blood pumping through the arteries is too strong. Arteries are blood vessels that carry blood from the heart throughout the body. Often, hypertension does not cause symptoms until blood pressure is very high. It is important to have your blood pressure checked regularly. Diet and lifestyle changes can help you prevent hypertension, and they may make you feel better overall and improve your quality of life. If you already have hypertension, you may control it with diet and lifestyle changes, as well as with medicine. How can this condition affect me? Over time, hypertension can damage the arteries and decrease blood flow to important parts of the body, including the brain, heart, and kidneys. By keeping your blood pressure in a healthy range, youcan help prevent complications like heart attack, heart failure, stroke, kidney failure, and vascular dementia. What can increase my risk? Being an older adult. Older people are more often affected. ??? Having family members who have had high blood pressure. ??? Being obese. ??? Being male. Males are more likely to have high blood pressure. ??? Drinking too much alcohol or caffeine. ??? Smoking or using illegal drugs. ??? Taking certain medicines, such as antidepressants, decongestants, control pills, and NSAIDs, such as ibuprofen. ??? Having thyroid problems. ??? Having certain tumors. What actions can I take to prevent or manage this condition? Work with your health care provider to make a hypertension prevention plan that works for you. Follow your plan and keep all follow-up visits as told by your health care provider. Diet changes Maintain a healthy diet. This includes: ??? Eating less salt (sodium). Ask your health care provider how much sodium is safe for you to have. The general recommendation is to have less than 1 tsp (2,300 mg) of sodium a day. ??? Do not add salt to your food. ??? Choose low-sodium options when grocery shopping and eating out. ??? Limiting fats in your diet. You can do this by eating low-fat or fat-free dairy products and byeating less red meat. ??? Eating more fruits, vegetables, and whole grains. Make a goal to eat: ??? 1?2 cups of fresh fruits and vegetables each day. ??? 3???4 servings of whole grains each day. ??? Avoiding foods and beverages that have added sugars. ??? Eating fish that contain healthy fats (omega-3 fatty acids), such as mackerel or salmon. If you need help putting together a healthy eating plan, try the DASH diet. This diet is high in fruits, vegetables, and whole grains. It is low in sodium, red meat, and added sugars. DASH stands forDietary Approaches to Stop Hypertension. Lifestyle changes Lose weight if you are overweight. Losing just 3???5% of your body weight can help prevent or control hypertension. For example, if your present weight is 200 lb (91 kg), a loss of 3???5% of your weight means losing 6???10 lb (2.7???4.5 kg). Ask your health care provider to help you with a diet andexercise plan to safely lose weight. Other recommendations usually include: ??? Get enough exercise. Do at least 150 minutes of moderate-intensity exercise each week. You could do this in short exercise sessions several times a day, or you could do longer exercise sessions afew times a week. For example, you could take a brisk 10-minute walk or bike ride, 3 times a day, for 5 days a week. ??? Find ways to reduce stress, such as exercising, meditating, listening to music, or taking a yoga class. If you need help reducing stress, ask your health care provider. ??? Do not use any products that contain nicotine or tobacco, such as cigarettes, e-cigarettes, andchewing tobacco. If you need help quitting, ask your health care provider. Chemicals in tobacco andnicotine products raise your blood pressure each time you use them. If you need help quitting, ask your health care provider. ??? Learn how to check your blood pressure at home. Make sure that you know your personal target blood pressure, as told by your health care provider. ??? Try to sleep 7???9 hours per night. Alcohol use ??? Do not drink alcohol if: ??? Your health care provider tells you not to drink. ??? You are , may be , or are planning to become . ??? If you drink alcohol: ??? Limit how much you use to: ??? 0???1 drink a day for women. ??? 0???2 drinks a day for men. ??? Be aware of how much alcohol is in your drink. In the [place] one drink equals one 12 oz bottle of beer (355 mL), one 5 oz glass of wine (148 mL), or one 1?? oz glass of hard liquor (44 mL). Medicines In addition to diet and lifestyle changes, your health care provider may recommend medicines to help lower your blood pressure. In general: ??? You may need to try a few different medicines to find what works best for you. ??? You may need to take more than one medicine. ??? Take ffpe-hrj-pxwahjg and prescription medicines only as told by your health care provider. Questions to ask your health care provider ??? What is my blood pressure goal? How can I lower my risk for high blood pressure? How should I monitor my blood pressure at home? Where to find support Your health care provider can help you prevent hypertension and help you keep your blood pressure at a healthy level. Your local hospital or your community may also provide support services and prevention programs. The [place] [employer] offers an online support network at supportnetwork.heart.org Where to find more information Learn more about hypertension from: ??? National Heart, Lung, and Blood Almo: www.nhlbi.nih.gov ??? Centers for Disease Control and Prevention: www.cdc.gov ??? [place] [employer]: familydoctor.org Learn more about the DASH diet from: ??? National Heart, Lung, and Blood Almo: www.nhlbi.nih.gov Contact a health care provider if: ??? You think you are having a reaction to medicines you have taken. ??? You have recurrent headaches or feel dizzy. ??? You have swelling in your ankles. ??? You have trouble with your vision. Get help right away if: ??? You have sudden, severe chest, back, or abdominal pain or discomfort. ??? You have shortness of breath. ??? You have a sudden, severe headache. These symptoms may represent a serious problem that is an emergency. Do not wait to see if the symptoms will go away. Get medical help right away. Call your local emergency services (911 in the [place] Do not drive yourself to the hospital. Summary ??? Hypertension often does not cause any symptoms until blood pressure is very high. It is important to get your blood pressure checked regularly. ??? Diet and lifestyle changes are important steps in preventing hypertension. ??? By keeping your blood pressure in a healthy range, you may prevent complications like heart attack, heart failure, stroke, and kidney failure. ??? Work with your health care provider to make a hypertension prevention plan that works for you. This information is not intended to replace advice given to you by your health care provider. Make sure you discuss any questions you have with your health care provider. Document Revised: 07/29/2020 Document Reviewed: 07/29/2020 [employer] Patient Education ?? 2021 [employer]. 07/24/2024 09:06:22 Diskitis Diskitis Diskitis is the inflammation and infection of the disks in the spine. Disks are soft structures that cushion the bones of the spine (vertebrae). Diskitis most often affects the disks of the lower back (lumbar disks). It may also affect disks in the neck (cervical disks) or upper back (thoracic disks). This is not a common condition. What are the causes? This condition may be caused by: ??? An infection that spreads from an infection in another part of the body through the bloodstream. The most common sources are the skin, soft tissue, urinary tract, and respiratory tract. ??? An infection in another area of the spine. When diskitis develops, it is often accompanied by infection-induced inflammation of the bones (osteomyelitis) surrounding the spine. ??? An infection after a procedure or trauma to the spine. This may include surgery, lumbar puncture, a nerve block, and epidural analgesia. What increases the risk? The following factors may make you more likely to develop this condition: ??? Age. Children have a higher risk. ??? A weak disease-fighting system (immune system) or immune system disorders. ??? Intravenous drug use. ??? Having diabetes. ??? Having cancer. ??? Having HIV or AIDS. ??? Having liver or kidney disease. What are the signs or symptoms? Back pain or stomach pain is the most common symptom of diskitis. Walking, standing, and sitting may be painful. Children may refuse to crawl or walk. Other symptoms may include: ??? Back stiffness. ??? Trouble standing or rising from a sitting position. ??? Irritability. ??? Fever. How is this diagnosed? This condition may be diagnosed based on: ??? Your symptoms and medical history. ??? A physical exam. ??? Imaging tests, such as: ??? X-ray of the spine. ??? MRI of the spine. ??? A bone scan. ??? Blood tests. How is this treated? This condition may be treated with: ??? Bed rest for a short time. ??? Medicines, such as: ??? Antibiotics to treat a possible bacterial infection. ??? Anti-inflammatory medicines. ??? Pain-relieving medicines. ??? A brace to keep your back from moving. ??? Surgery. Surgery is not normally needed but may be used if the infection is severe or if rest and medicines do not help. Follow these instructions at home: If you have a removable brace: ??? Wear the brace as told by your health care provider. Remove it only as told by your health careprovider. ??? Check the skin around the brace every day. Tell your health care provider about any concerns. ??? Keep the brace clean. ??? If the brace is not waterproof: ??? Do not let it get wet. ??? Cover it with a watertight covering when you take a bath or a shower. Medicines ??? Take tyvy-byc-aetwtix and prescription medicines only as told by your health care provider. ??? If you were prescribed an antibiotic medicine, take it as told by your health care provider. Donot stop using the antibiotic even if you start to feel better. ??? Ask your health care provider if the medicine prescribed to you: ??? Requires you to avoid driving or using machinery. ??? Can cause constipation. You may need to take these actions to prevent or treat constipation: ??? Drink enough fluid to keep your urine pale yellow. ??? Take bgnp-qyy-wyvlomu or prescription medicines. ??? Eat foods that are high in fiber, such as beans, whole grains, and fresh fruits and vegetables. ??? Limit foods that are high in fat and processed sugars, such as fried or sweet foods. General instructions ??? Rest as told by your health care provider. ??? Return to your normal activities as told by your health care provider. Ask your health care provider what activities are safe for you. ??? Do not use any products that contain nicotine or tobacco. These products include cigarettes, chewing tobacco, and vaping devices, such as e-cigarettes. If you need help quitting, ask your health care provider. ??? Keep all follow-up visits. This is important. Contact a health care provider if: ??? You have numbness or tingling in your legs or arms. ??? You have difficulty walking or standing. ??? You have persistent back pain that is not relieved by medicines. ??? You are having side effects from medicines. ??? You develop a fever. Get help right away if: ??? You lose feeling in your legs or arms, or your legs or arms become weak. ??? You lose control of bowel or bladder function (incontinence). These symptoms may be an emergency. Get help right away. Call 911. ??? Do not wait to see if the symptoms will go away. ??? Do not drive yourself to the hospital. Summary ??? Disks are soft structures that cushion the bones of the spine. ??? Diskitis is a rare condition that causes inflammation and infection of the disks in the spine, especially the lower back (lumbar disks). ??? One cause of diskitis is an infection that spreads from an infection in another part of the body through the bloodstream. ??? Back pain or stomach pain is the most common symptom of diskitis. Walking, standing, and sitting may be painful. ??? Treatment may include bed rest, medicines, a brace to keep your back from moving, or surgery. This information is not intended to replace advice given to you by your health care provider. Make sure you discuss any questions you have with your health care provider. Document Revised: 03/04/2022 Document Reviewed: 03/04/2022 [employer] Patient Education ?? 2021 [employer]. 07/24/2024 09:06:18 Chronic Obstructive Pulmonary Disease Exacerbation, Vbso-xn-Uydw Chronic Obstructive Pulmonary Disease Exacerbation Chronic obstructive pulmonary disease (COPD) is a long-term (chronic) lung problem. In COPD, the flow of air from the lungs is limited. COPD exacerbations are times that breathing gets worse and you need more than your normal treatment. Without treatment, they can be life-threatening. If they happen often, your lungs can become more damaged. What are the causes? Having infections that affect your airways and lungs. ??? Being exposed to: ??? Smoke. ??? Air pollution. ??? Chemical fumes. ??? Dust. ??? Things that can cause an allergic reaction (allergens). ??? Not taking your usual COPD medicines as told. ??? Having medical problems already, such as heart failure or infections not involving the lungs. In many cases, the cause is not known. What increases the risk? Smoking. ??? Being an older adult. ??? Having frequent prior COPD exacerbations. What are the signs or symptoms? Increased coughing. ??? Increased mucus from your lungs. ??? Increased wheezing. ??? Increased shortness of breath. ??? Fast breathing and finding it hard to breathe. ??? Chest tightness. ??? Less energy than usual. ??? Sleep disruption from symptoms. ??? Confusion. ??? Increased sleepiness. Often, these symptoms happen or get worse even with the use of medicines. How is this treated? Treatment for this condition depends on how bad it is and the cause of the symptoms. You may need to stay in the hospital for treatment. Treatment may include: ??? Taking medicines. ??? Using oxygen. ??? Being treated with different ways to clear your airway, such as using a mask to deliver oxygen. Follow these instructions at home: Medicines ??? Take nigb-pkr-snoannp and prescription medicines only as told by your doctor. ??? Use all inhaled medicines the correct way. ??? If you were prescribed an antibiotic or steroid medicine, take it as told by your doctor. Do not stop taking it even if you start to feel better. Lifestyle ??? Do not smoke or use any products that contain nicotine or tobacco. If you need help quitting, ask your doctor. ??? Eat healthy foods. ??? Exercise regularly. ??? Get enough sleep. Most adults need 7 or more hours per night. ??? Avoid tobacco smoke and other things that can bother your lungs. ??? Several times a day, wash your hands with soap and water for at least 20 seconds. If you cannotuse soap and water, use hand pharmacy informaticist. This may help keep you from getting an infection. ??? During flu season, avoid areas that are crowded with people. General instructions ??? Drink enough fluid to keep your pee (urine) pale yellow. Do not do this if your doctor has toldyou not to. ??? Use a cool mist machine (vaporizer). ??? If you use oxygen or a machine that turns medicine into a mist (nebulizer), continue to use it as told. ??? Keep all follow-up visits. How is this prevented? Keep up with shots (vaccinations) as told by your doctor. Be sure to get a yearly flu (influenza) shot. ??? If you smoke, quit smoking. Smoking makes the problem worse. ??? Follow all instructions for rehabilitation. These are steps you can take to make your body workbetter. ??? Work with your doctor to develop and follow an action plan. This tells you what steps to take when you experience certain symptoms. Contact a doctor if: ??? Your COPD symptoms get worse than normal. Get help right away if: ??? You are short of breath and it gets worse, even when you are resting. ??? You have trouble talking. ??? You have chest pain. ??? You cough up blood. ??? You have a fever. ??? You keep vomiting. ??? You feel weak or you pass out (faint). ??? You feel confused. ??? You are not able to sleep because of your symptoms. ??? You have trouble doing daily activities. These symptoms may be an emergency. Get help right away. Call your local emergency services (911 int [place] ??? Do not wait to see if the symptoms will go away. ??? Do not drive yourself to the hospital. Summary ??? COPD exacerbations are times that breathing gets worse and you need more treatment than normal. ??? COPD exacerbations can be very serious and may cause your lungs to become more damaged. ??? Do not smoke. If you need help quitting, ask your doctor. ??? Stay up to date on your shots. Get a flu shot every year. This information is not intended to replace advice given to you by your health care provider. Make sure you discuss any questions you have with your health care provider. Document Revised: 07/22/2021 Document Reviewed: 07/07/2021 [employer] Patient Education ?? 2021 [employer]. 07/24/2024 09:06:09 Neuropathic Pain Neuropathic Pain Neuropathic pain is pain caused by damage to the nerves that are responsible for certain sensationsin your body (sensory nerves). Neuropathic pain can make you more sensitive to pain. Even a minor sensation can feel very painful.This is usually a long-term (chronic) condition that can be difficult to treat. The type of pain differs from person to person. It may: ??? Start suddenly (acute), or it may develop slowly and become chronic. ??? Come and go as damaged nerves heal, or it may stay at the same level for years. ??? Cause emotional distress, loss of sleep, and a lower quality of life. What are the causes? The most common cause of this condition is diabetes. Many other diseases and conditions can also cause neuropathic pain. Causes of neuropathic pain can be classified as: ??? Toxic. This is caused by medicines and chemicals. The most common causes of toxic neuropathic pain is damage from medicines that kill cancer cells (chemotherapy) or alcohol abuse. ??? Metabolic. This can be caused by: ??? Diabetes. ??? Lack of vitamins like B12. ??? Traumatic. Any injury that cuts, crushes, or stretches a nerve can cause damage and pain. ??? Compression-related. If a sensory nerve gets trapped or compressed for a long period of time, the blood supply to the nerve can be cut off. ??? Vascular. Many blood vessel diseases can cause neuropathic pain by decreasing blood supply and oxygen to nerves. ??? Autoimmune. This type of pain results from diseases in which the body's defense system (immune system) mistakenly attacks sensory nerves. Examples of autoimmune diseases that can cause neuropathic pain include lupus and multiple sclerosis. ??? Infectious. Many types of viral infections can damage sensory nerves and cause pain. Shingles infection is a common cause of this type of pain. ??? Inherited. Neuropathic pain can be a symptom of many diseases that are passed down through families (genetic). What increases the risk? You are more likely to develop this condition if: ??? You have diabetes. ??? You smoke. ??? You drink too much alcohol. ??? You are taking certain medicines, including chemotherapy or medicines that treat immune system disorders. What are the signs or symptoms? The main symptom is pain. Neuropathic pain is often described as: ??? Burning. ??? Shock-like. ??? Stinging. ??? Hot or cold. ??? Itching. How is this diagnosed? No single test can diagnose neuropathic pain. It is diagnosed based on: ??? A physical exam and your symptoms. Your health care provider will ask you about your pain. You may be asked to use a pain scale to describe how bad your pain is. ??? Tests. These may be done to see if you have a cause and location of any nerve damage. They include: ??? Nerve conduction studies and electromyography to test how well nerve signals travel through your nerves and muscles (electrodiagnostic testing). ??? Skin biopsy to evaluate for small fiber neuropathy. ??? Imaging studies, such as: ??? X-rays. ??? CT scan. ??? MRI. How is this treated? Treatment for neuropathic pain may military exchange wireless manager time. You may need to try different treatment options or a combination of treatments. Some options include: ??? Treating the underlying cause of the neuropathy, such as diabetes, kidney disease, or vitamin deficiencies. ??? Stopping medicines that can cause neuropathy, such as chemotherapy. ??? Medicine to relieve pain. Medicines may include: ??? Prescription or ewhm-tfx-abfdhhm pain medicine. ??? Anti-seizure medicine. ??? Antidepressant medicines. ??? Pain-relieving patches or creams that are applied to painful areas of skin. ??? A medicine to numb the area (local anesthetic), which can be injected as a nerve block. ??? Transcutaneous nerve stimulation. This uses electrical currents to block painful nerve signals.The treatment is painless. ??? Alternative treatments, such as: ??? Acupuncture. ??? Meditation. ??? Massage. ??? Occupational or physical therapy. ??? Pain management programs. ??? Counseling. Follow these instructions at home: Medicines ??? Take qovw-hev-esqdqmk and prescription medicines only as told by your health care provider. ??? Ask your health care provider if the medicine prescribed to you: ??? Requires you to avoid driving or using machinery. ??? Can cause constipation. You may need to take these actions to prevent or treat constipation: ??? Drink enough fluid to keep your urine pale yellow. ??? Take rhli-qfg-vsvfzmt or prescription medicines. ??? Eat foods that are high in fiber, such as beans, whole grains, and fresh fruits and vegetables. ??? Limit foods that are high in fat and processed sugars, such as fried or sweet foods. Lifestyle ??? Have a good support system at home. ??? Consider joining a chronic pain support group. ??? Do not use any products that contain nicotine or tobacco. These products include cigarettes, chewing tobacco, and vaping devices, such as e-cigarettes. If you need help quitting, ask your health care provider. ??? Do not drink alcohol. General instructions ??? Learn as much as you can about your condition. ??? Work closely with all your health care providers to find the treatment plan that works best foryou. ??? Ask your health care provider what activities are safe for you. ??? Keep all follow-up visits. This is important. Contact a health care provider if: ??? Your pain treatments are not working. ??? You are having side effects from your medicines. ??? You are struggling with tiredness (fatigue), mood changes, depression, or anxiety. Get help right away if: ??? You have thoughts of hurting yourself. Get help right away if you feel like you may hurt yourself or others, or have thoughts about takingyour own life. Go to your nearest emergency room or: ??? Call 911. ??? Call the National Suicide Prevention Lifeline at or 348. This is open 24 hours aday. ??? Text the Crisis Text Line at 189816. Summary ??? Neuropathic pain is pain caused by damage to the nerves that are responsible for certain sensations in your body (sensory nerves). ??? Neuropathic pain may come and go as damaged nerves heal, or it may stay at the same level for years. ??? Neuropathic pain is usually a long-term condition that can be difficult to treat. Consider joining a chronic pain support group. This information is not intended to replace advice given to you by your health care provider. Make sure you discuss any questions you have with your health care provider. Document Revised: 04/26/2022 Document Reviewed: 04/26/2022 [employer] Patient Education ?? 2021 [employer]. History and physical note * Brooke Slater [facility] REC TOOLS PROGRAMMER: PERFORM Event Display: History and Physical Authored Date: [id number] Nutrition and dietetics Progress note * Rick Renee RD: PERFORM Event Display: Dietary Progress Note Authored Date: [id number] I added one EnsureHP with BF to help patient meet protein needs. Electronically Signed on 07/11/2024 11:59 AM [address]T Rick Renee RD Nurse Progress note * Suzy Land: PERFORM Event Display: Nursing Narrative Note Authored Date: [id number] Nurse Field Representative Fang notified family about covid outbreak. Will continue to monitor. Electronically Signed on 07/18/2024 01:59 PM MINUTE CLERK Suzy Land * Stacy Masters LPN: PERFORM Event Display: Progress Note-Nurse Authored Date: Patient is concerned about her kidneys she is having right side flank pain. Advised patient that labs will be drawn tomorrow and that they would be reviewed by the providers for any concerns . Patient was offered a pain pill but she is reluctant stating that she does not want it to effect her kidneys. Education provided to the patient on importance of keeping her pain minimal to be able to participate in therapies. Patient declined tylenol. Non pharmacological interventions offered such as ice and re positioning , patient declined. Electronically Signed on 07/15/2024 03:11 PM MINUTE CLERK Stacy Masters LPN Pharmacology Progress note * Sadi Warren Pharmacist: PERFORM Event Display: Pharmacy Progress Note Authored Date: [id number] Pharmacy Progress Note Based upon the information available at the time of the review, and assuming the accuracy and completeness of such information, it is my professional judgement that at such time, the resident???s medication regimen contained no new irregularities Electronically Signed on 07/11/2024 09:04 AM CDT Sadi Warren Pharmacist Note * Brooke Slater REC TOOLS PROGRAMMER: PERFORM Event Display: Therapy Notes* Authored Date: [id number] * Jessica Moreland MDS: PERFORM Event Display: Progress Note - MDS Authored Date: [id number] IDT reviewed resident???s current status and agrees that score match resident???s abilities and GG discharge goals are reasonable and measurable. See resident???s 5D for GG coding details. The information that was used to complete the MDS admission, 5day and D/C for this patient was gathered using CLERK GENERAL OFFICE, nursing and physical therapy documentation. The care plan was not updates by MDS due to resident discharge before the Electronically Signed on 07/19/2024 10:02 PM MINUTE CLERK Jessica Moreland * Mariaelena Cunningham: PERFORM Event Display: Wound Note* Authored Date: [id number] Secondary Skin Assessment completed. No areas of concern noted at this time. Education provided on skin hygiene and offloading pressure. Patient allowed this com writer to float heels. Electronically Signed on 07/11/2024 11:21 AM CDT Mariaelena Cunningham Progress note * Brooke Slater [facility] REC TOOLS PROGRAMMER: PERFORM Event Display: Progress Note-Physician Authored Date: [id number] Respiratory therapy Hospital Progress note * Ksenia Ohara: PERFORM Event Display: Respiratory Therapy Progress Note Authored Date: [id number] Patient seen by RT, p/s she uses a CPAP at home. RT told patient she could have someone bring in her CPAP and she stated that she would think about it and let RT know if she decides to bring it in. Electronically Signed on 07/11/2024 12:06 PM CDT Ksenia Ohara Patient Care team information Care Team Related Persons Name: ALDO DE LEON
--- OUTSIDE RECORDS SUMMARY | 2024-09-07 05:21 | XMS_ITS | Encounter Summary ---
Author Organization [facility] Address [address] [place] [address]. [place], [place] [address] [place] [address] Care Team Providers Care Coating Mixer Supervisor Name Role Phone Tracy Olivares MD Primary Care Provider [phone] Nathan Baig MD Unavailable [phone] Reason for Visit * Reason Onset Date Comments Concerns 08/20/2024 Encounter Details Date Type Department Care Team (Late st Contact Info) Description 08/20/2024 Telephone [facility] Medical Group Multispecialty Care [place] [address] [address] [place] [address] [place] [address] [place] [address] [address] [place] [address] Concerns Social History Tobacco Use Types Packs/Day Years [...] as of this encounter Progress Notes * Jessica Kalen Lockhart - 08/20/2024 1:39 PM CST Patient is requesting imaging for L Hip, Tailbone and Groin Pain, is concerned about a fracture Patient states she fell about 1 1/2 year ago. REDUCTION ROLLER documented in this encounter Plan of Treatment Upcoming Encounters Date Type Department Care Team (Late st Contact Info) Description 10/03/2024 11:00 AM COLD REDUCTION ROLLER Office Visit [facility] Medical [facility] Pulmonology Specialty Clinic - [address] [address] Nathan Baig MD 3 [facility] [address] [place] [address] 11/14/2024 10:20 AM COLD REDUCTION ROLLER Office Visit [facility] Multispecialty Care [place] [address] [address] [place] [address] Tracy Olivares MD [facility] [address] documented as of this encounter Visit Diagnoses Not on filedocumented in this encounter Additional Health Concerns Assessment Noted Time PHQ-9 Depression Total Score: 2 09/14/19 24 11:30 AM COLD REDUCTION ROLLER documented as of this encounter Care Teams Coating Mixer Supervisor Relationship Specialty Start Date End Date Tracy Olivares MD [address] [place] [address] PCP - General INTERNAL MEDICINE 01/02/21 Nathan Baig MD 3 [facility] [place] [address] [place] [address] Consulting Physician Internal Medicine Pulmonary Disease 09/16/21 documented as of this encounter
--- OUTSIDE RECORDS SUMMARY | 2024-09-07 05:21 | XMS_ITS | Encounter Summary ---
Author Organization [facility] Address [address] [place] [address]. 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 Patient already scheduled to have an appointment with this particular provider as well thank you. TECHNICIAN * Consultation (Routine) - Authorized Specialty Diagnoses / Procedures Referred By Contoziel t Referred To Contact INFECTIOUS DISEASE Diagnoses Epidural abscess ([facility]/HCC) Procedures OFFICE/OUTPATIENT NEW LOW MDM 30-44 MINUTES OFFICE/OUTPT VISIT,NEW,LEVL IV OFFICE/OUTPT VISIT,NEW,LEVL V OFFICE/OUTPT VISIT,EST,LEVL III OFFICE/OUTPT VISIT,EST,LEVL IV OFFICE/OUTPT VISIT,EST,LEVL V Tracy Olivares MD [address] [place] [address] Phone: tel: fax: [facility] [address] [place] [phone] Phone: tel: fax: Referral ID Status Reason Start Date Expiration Date Visits Requested Visits Authorized [id number] Authorized Specialty Services 08/13/2024 08/13/2025 99 99 TECHNICIAN Reason for Visit * Reason Onset Date Comments Referral 08/13/2024 Encounter Details Date Type Department Care Team (Late st Contact Info) Description 08/13/2024 Telephone [facility] Medical Group Multispecialty Care - [place] [address] [address] [place] [address] Tracy Olivares MD [address] [place] [id number] Referral Social History Tobacco Use Types Packs/Day Years [...] as of this encounter Progress Notes * Katharina Underwood MA - 08/15/2024 1:35 PM CST Neuro referral faxed on 08/15/24 TECHNICIAN * Tracy Olivares MD - 08/15/2024 7:50 AM CSTAddended by: TRACY OLIVARES on: 08/15/2024 07:50 AM Modules accepted: Orders TECHNICIAN * Tracy Olivares MD - 08/15/2024 7:49 AM CST Please refax neurosurgery order. Patient already has an appointment thank you. TECHNICIAN * Katharina Underwood MA - 08/13/2024 2:53 PM CST Faxed referral on 08/13/24 TECHNICIAN * Tracy Olivares MD - 08/13/2024 2:32 PM CST Please fax over referral to infectious disease to Dr. Ross Fischer office thanks. TECHNICIAN documented in this encounter Plan of Treatment Upcoming Encounters Date Type Department Care Team (Late st Contact Info) Description 10/03/2024 11:00 AM PBX TECHNICIAN Office Visit [facility] Medical Group Pulmonology Specialty Clinic - [place] [address] [address] [place] [address] Nathan Baig MD [address] [place] [address] 11/14/2024 10:20 AM PBX TECHNICIAN Office Visit [facility] Multispecialty Care - [place] 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 Ordered: 08/15/2024 documented as of this encounter Visit Diagnoses Diagnosis Epidural abscess (HHS/HCC)- Primary Intracranial and intraspinal abscess of unspecified site Discitis of thoracolumbar region Other and unspecified disc disorder of thoracic region documented in this encounter Additional Health Concerns Assessment Noted Time PHQ-9 Depression Total Score: 2 09/14/19 24 11:30 AM PBX TECHNICIAN documented as of this encounter Care Teams Clearing Tub Worker Relationship Specialty Start Date End Date Tracy Olivares MD [address] [address] PCP - General INTERNAL MEDICINE 01/02/21 Nathan Baig MD [address] [address] Consulting Physician Internal Medicine Pulmonary Disease 09/16/21 documented as of this encounter
--- OUTSIDE RECORDS SUMMARY | 2024-09-07 05:21 | XMS_ITS | Encounter Summary ---
Author Organization [facility] Address [address] [place] [address]. [place], [place] [address] [place] [address] Care Team Providers Care Logistics And Planning Manager Name Role Phone Tracy Olivares MD Primary Care Provider Nathan Baig MD Unavailable [phone] Reason for Referral * Consultation (Urgent) - New Request Specialty Diagnoses / Procedures Referred By Heidi iverson Referred To Contact ORTHOPAEDICS Diagnoses Bilateral hip pain Procedures OFFICE/OUTPATIENT NEW LOW MDM 30-44 MINUTES OFFICE/OUTPT VISIT,NEW,LEVL IV OFFICE/OUTPT VISIT,NEW,LEVL V OFFICE/OUTPT VISIT,EST,LEVL III OFFICE/OUTPT VISIT,EST,LEVL IV OFFICE/OUTPT VISIT,EST,LEVL V Tracy Olivares MD [facility] [address] Phone: tel: fax: Referral ID Status Reason Start Date Expiration Date Visits Requested Visits Authorized [id number] New Request Specialty Services 09/27/2025 1 1 SSIONS CONSULTANT Reason for Visit * Reason Onset Date Comments Results 08/27/2024 Encounter Details Date Type Department Care Team (Late st Contact Info) Description 08/27/2024 Telephone [facility] Medical Group Multispecialty Care - [place] [address] [address] [place] [address] Tracy Olivares MD [facility] [address] Results Social History Tobacco Use Types Packs/Day [...] as of this encounter Progress Notes * Tracy Olivares MD - 08/27/2024 9:17 AM CST I called and has patient's x-ray of the hip and pelvic results with her. Mild osteoarthritis. She has a referral to see neurosurgery and patient tells me she is already scheduled. She does not want any injections to her back at this time hence I will declare from sending her to pain management. Orthopedic referral placed for patient. Given referral center follow-up. All questions. SSIONS CONSULTANT * Jessica Lockhart - 08/27/2024 8:30 AM CST This patient is calling about her hip pain and the results from her recent imaging. She also would like to discuss seeing a specialist about the hip pain. SSIONS CONSULTANT documented in this encounter Plan of Treatment Upcoming Encounters Date Type Department Care Team (Late st Contact Info) Description 10/03/2024 11:00 AM ADMISSIONS CONSULTANT Office Visit [facility] Medical Group Pulmonology Specialty Clinic - [place] [address] [place] [address] Nathan Baig MD [address] [place] [address] 11/14/2024 10:20 AM ADMISSIONS CONSULTANT Office Visit [facility] Medical Group Multispecialty Care - [place] [address] [address] [place] [address] Tracy Olivares MD [facility] [address] Scheduled Referrals Name Type Priority Associated Diagnoses Orde r Schedule Ambulatory referral to Orthopedics (OTHER) Referral Routine Bilateral hip pain Ordered: 08/27/2024 documented as of this encounter Visit Diagnoses Diagnosis Bilateral hip pain- Primary Pain in joint, pelvic region and thigh documented in this encounter Additional Health Concerns Assessment Noted Time PHQ-9 Depression Total Score: 2 09/14/19 24 11:30 AM ADMISSIONS CONSULTANT documented as of this encounter Care Teams Logistics And Planning Manager Relationship Specialty Start Date End Date Tracy Olivares MD [address] [place] [address] PCP - General INTERNAL MEDICINE 01/02/21 Nathan Baig MD [address] [address] Consulting Physician Internal Medicine Pulmonary Disease 09/16/21 documented as of this encounter
--- OUTSIDE RECORDS SUMMARY | 2024-09-07 05:21 | XMS_ITS | Encounter Summary ---
Author Organization [facility] Address [address] [place] [address]. [place], [place] [address] [place] [address] Care Team Providers Care Surgical Services Tech Name Role Phone Tracy Olivares MD Primary Care Provider [phone] Nathan Baig MD Unavailable [phone] Reason for Visit * Reason Onset Date Comments Information 08/08/2024 Encounter Details Date Type Department Care Team (Late st Contact Info) Description 08/08/2024 Telephone [facility] Medical Group Multispecialty Care - [place] [address] [address] [place] [address] [place] [address] [place] [address] [address] [place] [address] Information Social History Tobacco Use Types Packs/Day Years [...] as of this encounter Progress Notes * Najma Moreland MA - 08/08/2024 11:24 AM CST Lab orders have been faxed to [facility] home nurse ING AND PRIMING OPERATOR documented in this encounter Plan of Treatment Upcoming Encounters Date Type Department Care Team (Late st Contact Info) Description 10/03/2024 11:00 AM HEADING AND PRIMING OPERATOR Office Visit [facility] Pulmonology Specialty Clinic - [address] [address] Nathan Baig MD 3 [facility] [address] [place] [address] 11/14/2024 10:20 AM HEADING AND PRIMING OPERATOR Office Visit [facility] Multispecialty Care - [place] [address] [address] [place] [address] Tracy Olivares MD [address] [place] [address] documented as of this encounter Visit Diagnoses Not on filedocumented in this encounter Additional Health Concerns Assessment Noted Time PHQ-9 Depression Total Score: 2 09/14/19 24 11:30 AM HEADING AND PRIMING OPERATOR documented as of this encounter Care Teams Surgical Services Tech Relationship Specialty Start Date End Date Tracy Olivares MD [address] [place] [address] PCP - General INTERNAL MEDICINE 01/02/21 Nathan Baig MD 3 [facility] [place] [address] [place] [address] Consulting Physician Internal Medicine Pulmonary Disease 09/16/21 documented as of this encounter
--- OUTSIDE RECORDS SUMMARY | 2024-09-07 05:21 | XMS_ITS | Encounter Summary ---
Author Organization [facility] Address [address] [place] [address]. [place], [place] [address] [place] [address] Care Team Providers Care Stitcher Utility Name Role Phone Tracy Olivares MD Primary Care Provider [phone] Nathan Baig MD Unavailable [phone] Encounter Details Date Type Department Care Team (Latest Contact Info) Description 08/17/2024 Scan HEALTH INFO SRVCS Scanned, Doc Med Group Social History Tobacco Use Types Packs/Day Years [...] on file documented as of this encounter Plan of Treatment Upcoming Encounters Date Type Department Care Team (Late st Contact Info) Description 10/03/2024 11:00 AM SAP PORTAL CONSULTANT Office Visit [facility] Medical Group Pulmonology Specialty Clinic - [place] [address] [address] Nathan Baig MD [address] [place] [address] 11/14/2024 10:20 AM SAP PORTAL CONSULTANT Office Visit [facility] Medical Group Multispecialty Care - [place] [address] [address] [place] [address] Tracy Olivares MD [address] [place] [address] documented as of this encounter Visit Diagnoses Not on filedocumented in this encounter Additional Health Concerns Assessment Noted Time PHQ-9 Depression Total Score: 2 09/14/19 24 11:30 AM SAP PORTAL CONSULTANT documented as of this encounter Care Teams Stitcher Utility Relationship Specialty Start Date End Date Tracy Olivares MD [address] [place] [address] PCP - General INTERNAL MEDICINE 01/02/21 Nathan Baig MD [address] [address] Consulting Physician Internal Medicine Pulmonary Disease 09/16/21 documented as of this encounter
--- OUTSIDE RECORDS SUMMARY | 2024-09-07 05:21 | XMS_ITS | Encounter Summary ---
Author Organization [facility] Address [address] [place] [address]. [place], [place] [address] [place] [address] Care Team Providers Care Post Partum Nurse Name Role Phone Tracy Olivares MD Primary Care Provider [phone] Nathan Baig MD Unavailable [phone] Encounter Details Date Type Department Care Team (Latest Contact Info) Description 08/22/2024 Travel Social History Tobacco Use Types Packs/Day Years [...] st Contact Info) Description 10/03/2024 11:00 AM BRILLIANDEER LOPPER Office Visit [facility] Medical Group Pulmonology Specialty Clinic - [place] [address] [address] [facility] [address] [place] [address] Nathan Baig MD [address] [place] [address] 11/14/2024 10:20 AM BRILLIANDEER LOPPER Office Visit [facility] Medical Group Multispecialty Care - [place] [address] [address] [facility] [address] [place] [address] Tracy Olivares MD 118[address] [facility] [address] [place] [address] documented as of this encounter Visit Diagnoses Not on filedocumented in this encounter Additional Health Concerns Assessment Noted Time PHQ-9 Depression Total Score: 2 09/14/19 24 11:30 AM BRILLIANDEER LOPPER documented as of this encounter Care Teams Post Partum Nurse Relationship Specialty Start Date End Date Tracy Olivares MD 1188 [facility] [address] [place] [address] PCP - General INTERNAL MEDICINE 01/02/21 Nathan Baig MD [address] [address] Consulting Physician Internal Medicine Pulmonary Disease 09/16/21 documented as of this encounter
--- OUTSIDE RECORDS SUMMARY | 2024-09-07 05:21 | XMS_ITS ---
Author Name Karina SHIRLEY, MRS. Schreiber npal Address [address] [place] [address] Phone [phone] Organization [facility] Care Team Providers Care Life Management Teacher Name Role Phone Gilbert Collins Unavailable [phone] [facility] Home Tier 1 RN (STL), Arlette loving Unavailable [facility] CHW (STL), Amara Lorenzo Unavailable Unavailable VINICIUS PA Unavailable [phone] Reason for Referral Not Available Allergies, adverse reactions, alerts Allergen Type Reaction Severity Status Onset Date Meloxicam Allergy to substance (disorder) itch Unknown Active N/A History of medication use Medication Class Instructions Start Date End Date Jardiance 25 mg Tab 1 tablet orally daily 2024-06-17 No Data Available Atorvastatin Calcium 20 mg Tab 1 tablet orally daily 2024-06-17 No Data Available Famotidine 20 mg Tab 1 tablet orally song ly at bedtime 2024-06-17 No Data Available Meloxicam 15 mg Tab 1 tablet orally daily 2024-06-17 No Data Available Gabapentin 300 mg Cap 1 capsule orally 2 times per day 2024-06-17 No Data Available Losartan Potassium-HCTZ 100/12.5 mg Tab 1 tablet orally daily 2024-06-17 No Data Available Esomeprazole Magnesium 40 mg Cap delayed rel No Data Available 2024-06-17 No Data Available Trelegy Ellipta 100-62.5-25 MCG/ACT Aerosol Powder Breath Activated Inhalation 1 puff inhaled orally daily 2024-06-17 No D gris Available Aspirin 81 mg Tab delayed rel 1 tablet orally daily 2024-06-18 No Data Available Vitamin D3 125 MCG (5000 UT) Cap 1 capsule orally daily 2024-06-18 No Data Available Glucosamine 500 mg Cap 1 tablet once daily 2024-06-18 No Data Available Benadryl Allergy 25 mg Tab 1 tablet oral ly daily at bedtime as needed 2024-06-18 No Data Available oxyBUTYnin Chloride 5 mg Tab 1 tablet or ally 2 times per day 2024-06-18 No Data Available Spoutstyle Tasqee blood glucose monitoring system 0 Use as directed 2024-06-18 No Data Available Albuterol Sulfate HFA 108 (90 Base) MCG/ACT Aerosol Solution Inhalation INHALE 2 PUFFS BY MOUTH EVERY 6 HOURS NEEDED FOR WHEEZING OR SHORTNESS OF BREATH 2024-06-18 No Data Available Problem List Problem Status Onset Date Resolved Date Bladder incontinence fema Active 2024-06-18 N/ A Type 2 diabetes mellitus Active 2024-06-18 N/A Morbidly obese Active 2024-06-18 N/A HTN (hypertension) Active 2024-06-18 N/A HLD (hyperlipidemia) Active 2024-06-18 N/A Lumbago with sciatica Active 2024-06-18 N/A GERD (gastroesophageal reflux disease) Active 05-07-07 N/A COPD (chronic obstructive pulmonary disease) Active 2024-06-18 N/A Encounters Encounters Type Facility Date of Service Diagnosis/Co mplaint Home visit for evaluation and management of new patient requiring medically appropriate examination and high level of medical decision making. If using time, at least 75 minutes total time on encounte [facility] [place] 06/18/2024 Type 2 diabetes ethel itus without complicationsStress incontinence (female) (male)Morbid (severe) obesity due to excess caloriesEssential (primary) hypertensionHyperlipidemia, unspecifiedLumbago with sciatica, unspecified sideGastro-esophageal reflux disease without esophagitisChronic obstructive pulmonary disease, unspecifiedBody mass index (BMI) 40.0-44.9, adult Vital Signs Date of Collection Vitals 2024-06-18 17:25:00 Height - 168.91 cmWe ight - 125.19 kgBody Mass Index (BMI) - 43.88 kg/j7Iumwb Rate - 91.0 /minBody Temperature - 36.22 CelO2 % BldC Oximetry - 90.0 % Social History Social History Social History Observation Description Effec tive Time Current Smoking Status Former smoker 2024-08-13 7 Sex Female History of Procedures Procedures Service Procedure code Service date Servicing provider Phone# Home visit for evaluation and management of new patient requiring medically appropriate examination and high level of medical decision making. If using time, at least 75 minutes total time on encounte [id number] 2024-06-19 No Data Available No Data Availa ble Functional Status Functional Category Effective Dates drives and lives independently 7 Mental Status No Information Assessments Date of Service Assessments 2024-06-18 17:25:00 Bladder incontinence femaType 2 diabetes mellitusMorbidly obeseHTN (hypertension)HLD (hyperlipidemia)Lumbago with sciaticaGERD (gastroesophageal reflux disease)COPD (chronic obstructive pulmonary disease) Plan of Care Date of Service Plans 2024-06-18 17:25:00 PCP f/u Q6 monthsOrt makayla Hilliard start on oxybutynin 5 mg BIDCHW referral placed for assistance with financial forms for bladder therapyPH follow up 07/16/2024 at 9amLast A1C 6.1 (03/2024)continue JardianceFreestyle Lite glucometer rx placed to tow picker OTCencouraged exercising as tolerateddiscussed eating healthy mealsdrink more waterunable to assess, did not have the correct cuff size, needs XLcontinue losartanlow salt dietchroniccontinue atorvastatinheart healthy dietchroniccontinue meloxicam and gabapentin as neededrecommend Tylenol arthritis and diclofenac gel for PRN usechroniccontinue famotidine and esomeprazoleavoid trigger foodschronic but stablecontinue Trelegy inhaler (rinsing after each use)Continue albuterol inhaler as needed Goals Date Goal 2024-06-19 Drink more water - g oal 60oz a day 2024-06-19 Begin using treadmil l at her facility starting with 10 min of walking and then increasing by 5 min when tolerable. 2024-06-19 PH follow up 024 at 9am Health Concerns Date Concern 2024-06-19 Healthy House Calls is a service that involves a physician or advanced practice provider conducting comprehensive assessments in your patient? s home or virtually to address crucial areas such as chronic conditions, quality gaps, social concerns, fall risk prevention, and various screenings. Please note that your patient will remain attributed to you even though they are participating in this service. If you have any questions, please reach out directly to our team at the phone number above.Your patient, Keegan Amaya, 1955, was seen today for a Healthy House Call visit. Patient read rights and responsibilities and consented to treatment. The purpose of this summary is to update you on the patient's current health status and share any relevant findings from the examination. 2024-06-19 Needs help filling o ut paperwork to complete for therapy for bladder prolapse. Referral to [facility] for assistance to complete forms. Has bladder incontinence and would like to try medication to help with it. 2024-06-19 States she is depres sed but does not want to take medication. She was placed on Lexapro but made her feel worse so she stopped. 2024-06-19 On [employer] but not attend ing meetings; has membership to [employer] but does not go. She is not sure why she doesn't go. She wants to lose weight. 2024-06-19 She has help on esdays x 3 hours - lady helps with cleaning her place, washing and changing bed sheets. (paid by Medicaid) 2024-06-19 Low back pain is cur rently controlled with gabapentin and meloxicam. Has had back injections in the past which were not very helpful
--- OUTSIDE RECORDS SUMMARY | 2024-09-07 05:21 | XMS_ITS | Encounter Summary ---
Author Organization [facility] Address [address] [place] [address]. [place] [id number] Care Team Providers Care Pepper Cutter Name Role Phone Tracy Olivares MD Primary Care Provider [phone] Nathan Baig MD Unavailable [phone] Reason for Referral * Physical Medicine (Urgent) - Authorized Specialty Diagnoses / Procedures Referred By Heidi iverson Referred To Contact PHYSICAL THERAPY / [facility] Physical Therapy Diagnoses Pelvic floor dysfunction in female Procedures OFFICE/OUTPATIENT NEW LOW MDM 30-44 MINUTES OFFICE/OUTPT VISIT,NEW,LEVL IV OFFICE/OUTPT VISIT,NEW,LEVL V OFFICE/OUTPT VISIT,EST,LEVL III OFFICE/OUTPT VISIT,EST,LEVL IV OFFICE/OUTPT VISIT,EST,[place] [address] [place] [address] Phone: tel: fax: [facility] Physical Therapy [address] [place] [address] Phone: tel: fax: Referral ID Status Reason Start Date Expiration Date Visits Requested Visits Authorized [id number] Authorized Physical Therapy 08/16/2024 09/15/2025 12 12 REPAIRMAN Reason for Visit * Reason Onset Date Comments Orders 08/16/2024 Encounter Details Date Type Department Care Team ([facility] st Contact Info) Description 08/16/2024 Telephone [facility] Medical Group Multispecialty Care - [place] [address] [facility] [address] [place] [address] Tracy Olivares MD [address] [facility] [address] [place] [address] Orders Social History Tobacco Use Types Packs/Day Years [...] as of this encounter Progress Notes * Ilana Ochoa MA - 08/17/2024 8:30 AM CST Spoke to Babita and got the fax number [phone] and faxed over quest order to her for UA and urine CX REPAIRMAN * Jessica Lockhart - 08/16/2024 4:19 PM CST Babita Hughes RN for [facility] is calling to advise that the patient has an IV dressing causing irritation and scab. She reports that when she changed the dressing she moved it so that it was not on the scabbed area. She also reports that patient is having issues with urination, possible pelvic floor issues. Added 08/17. Babita also stated in our conversation that per the notes kept at the patients home, the patient states that she feels she is not getting the care from her primary office that she needs. REPAIRMAN REPAIRMAN documented in this encounter Plan of Treatment Upcoming Encounters Date Type Department Care Team (Late Contact Info) Description 10/03/2024 11:00 AM HOT REPAIRMAN Office Visit [facility] - [address] [address] Nathan Baig MD [address] [address] 11/14/2024 10:20 AM HOT REPAIRMAN Office Visit [facility] Multispecialty Care - [place] [address] [address] [place] [address] Tracy Olivares MD [facility] [address] Scheduled Orders Name Type Priority Associated Diagnoses Orde r Schedule URINALYSIS Lab Routine Pelvic floor dysfunction in female Drug therapy Expected: 08/16/2024, Expires: 08/16/2025 URINE BACTERIA CULTURE Microbiology Routine Pelvic floor dysfunction in female Drug therapy Expected: 08/16/2024, Expires: 08/16/2025 Scheduled Referrals Name Type Priority Associated Diagnoses Orde r Schedule Ambulatory referral to Physical Therapy Referral Routine Pelvic floor dysfunction in female Ordered: 08/16/2024 documented as of this encounter Visit Diagnoses Diagnosis Pelvic floor dysfunction in female- Primary Irritant contact dermatitis due to other agents Drug therapy Encounter for long-term (current) use of other medications documented in this encounter Additional Health Concerns Assessment Noted Time PHQ-9 Depression Total Score: 2 09/14/19 24 11:30 AM HOT REPAIRMAN documented as of this encounter Care Teams Pepper Cutter Relationship Specialty Start Date End Date Tracy Olivares MD [address] [place] [address] PCP - General INTERNAL MEDICINE 01/02/21 Nathan Baig MD 3 [facility] [address] [place] [address] Consulting Physician Internal Medicine Pulmonary Disease 09/16/21 documented as of this encounter
--- OUTSIDE RECORDS SUMMARY | 2024-09-07 05:21 | XMS_ITS | Encounter Summary ---
Author Organization [facility] - [facility] Address [address] [place] [address]. [place], [place] [address] [place] [address] Care Team Providers Care Assistant Women'S Rowing Coach Name Role Phone Tracy Olivares MD Primary Care Provider [phone] Nathan Baig MD Unavailable [phone] Reason for Visit * Reason Onset Date Comments Results 08/23/2024 Encounter Details Date Type Department Care Team (Late st Contact Info) Description 08/23/2024 Telephone [facility] Medical Group Multispecialty Care - [place] [address] [address] [place] [address] [place] [address] [place] [address] [address] [place] [address] Results Social History Tobacco Use Types Packs/Day [...] Progress Notes * Tracy Olivares MD - 08/24/2024 2:08 PM CST Patient messages a second time wanting to know results of x-ray of the pelvics, hip and results yetto be read. I did explain to PSR to let patient know that the results are not yet in. If still ongoing concerns about back pain or hip pain over the weekend, to go to the emergency room to be evaluated. Office will reach out to her as soon as the results is read. URAL HISTORIAN * Jessica Lockhart - 08/23/2024 2:01 PM CST The patient called asking about the results for her x-rays done on August 22, 2024 at [facility] in [place], [place]. I explained that the results are not available. The patient requests to know them before the weekend if they become available. URAL HISTORIAN documented in this encounter Plan of Treatment Upcoming Encounters Date Type Department Care Team (Late st Contact Info) Description 10/03/2024 11:00 AM CULTURAL HISTORIAN Office Visit [facility] Medical [facility]ty [facility] - [address] [address] Nathan Baig MD [address] [place] [address] 11/14/2024 10:20 AM CULTURAL HISTORIAN Office Visit [facility] Multispecialty Care - [place] [address] [address] [place] [address] Tracy Olivares MD [address] [place] [address] documented as of this encounter Visit Diagnoses Not on filedocumented in this encounter Additional Health Concerns Assessment Noted Time PHQ-9 Depression Total Score: 2 09/14/19 24 11:30 AM CULTURAL HISTORIAN documented as of this encounter Care Teams Assistant Women'S Rowing Coach Relationship Specialty Start Date End Date Tracy Olivares MD [address] [place] [address] PCP - General INTERNAL MEDICINE 01/02/21 Nathan Baig MD [address] [id number] Consulting Physician Internal Medicine Pulmonary Disease 09/16/21 documented as of this encounter
--- OUTSIDE RECORDS SUMMARY | 2024-09-07 05:21 | XMS_ITS | Encounter Summary ---
Author Organization [facility] Address [address] [place] [address]. [place], [place] [address] [place] [address] Care Team Providers Care Detailer Name Role Phone Tracy Olivares MD Primary Care Provider [phone] Nathan Baig MD Unavailable [phone] Reason for Visit * Reason Comments Lab (SCAN) Encounter Details Date Type Department Care Team (Latest Contact Info) Description 08/14/2024 Scan HEALTH INFO SRVCS Scanned, Doc Med Group Lab (SCAN) Social History Tobacco Use Types Packs/Day Years [...] st Contact Info) Description 10/03/2024 11:00 AM SKETCHER Office Visit [facility] Specialty Clinic - [address] [place] [address] Nathan Baig MD [address] [place] [address] 11/14/2024 10:20 AM SKETCHER Office Visit [facility] Multispecialty Care - [place] [address] [address] [place] [address] Tracy Olivares MD [facility] [address] [address] documented as of this encounter Procedures Procedure Name Priority Date/Time Associated Diagnosis Comments OUTSIDE LAB (SCAN ORDER) 08/14/2024 OUTSIDE LAB (SCAN ORDER) 08/14/2024 documented in this encounter Results * OUTSIDE LAB (SCAN ORDER) (08/14/2024) 08/14/2024 [employer] Scanned SCANNING Final Resu lt * OUTSIDE LAB (SCAN ORDER) (08/14/2024) 08/14/2024 [employer] Scanned SCANNING Final Resu lt documented in this encounter Visit Diagnoses Not on filedocumented in this encounter Additional Health Concerns Assessment Noted Time PHQ-9 Depression Total Score: 2 09/14/19 24 11:30 AM SKETCHER documented as of this encounter Care Teams Detailer Relationship Specialty Start Date End Date Tracy Olivares MD [address] [place] [address] PCP - General INTERNAL MEDICINE 01/02/21 Nathan Baig MD [address] [address] Consulting Physician Internal Medicine Pulmonary Disease 09/16/21 documented as of this encounter
--- OUTSIDE RECORDS SUMMARY | 2024-09-07 05:21 | XMS_ITS | Encounter Summary ---
Author Organization [facility] Address [address] [place] [address]. [place], [place] [address] [place] [address] Care Team Providers Care Electrical Tester Battery Name Role Phone Tracy Olivares MD Primary Care Provider Nathan Baig MD Unavailable [phone] Encounter Details Date Type Department Care Team (Latest Contact Info) Description 08/21/2024 Travel Social History Tobacco Use Types Packs/Day [...] st Contact Info) Description 10/03/2024 11:00 AM FREIGHT CHECKER Office Visit [facility] Medical Group Pulmonology Specialty Clinic - [place] [address] [facility] [address] [place] [address] Nathan Baig MD [address] [place] [address] 11/14/2024 10:20 AM FREIGHT CHECKER Office Visit [facility] Medical Group Multispecialty Care - [place] [address] [facility] [address] [place] [address] Tracy Olivares MD [address] [facility] [address] [place] [address] documented as of this encounter Visit Diagnoses Not on filedocumented in this encounter Additional Health Concerns Assessment Noted Time PHQ-9 Depression Total Score: 2 09/14/19 24 11:30 AM FREIGHT CHECKER documented as of this encounter Care Teams Electrical Tester Battery Relationship Specialty Start Date End Date Tracy Olivares MD [address] [facility] [address] [place] [address] PCP - General INTERNAL MEDICINE 01/02/21 Nathan Baig MD [address] [address] Consulting Physician Internal Medicine Pulmonary Disease 09/16/21 documented as of this encounter
--- OUTSIDE RECORDS SUMMARY | 2024-09-07 05:21 | XMS_ITS | Encounter Summary ---
Author Organization [facility] Address [address] [place] [address]. [place], [place] [address] [place] [address] Care Team Providers Care Medication Tech Name Role Phone Tracy Olivares MD Primary Care Provider [phone] Nathan Baig MD Unavailable [phone] Reason for Visit * Reason Onset Date Comments Hospital Follow Up 08/08/2024 TCM week #3 Encounter Details Date Type Department Care Team (Latest Contact Info) Description 08/08/2024 Patient Outreach [facility] Medical Group Multispecialty [facility] - [address] [place] [address] Marisel Mancini, RN [address] [place] [address] Hospital Follow Up (TCM week #3) Social History Tobacco Use Types Packs/Day Years [...] as of this encounter Progress Notes * Marisel Mancini RN - 08/08/2024 9:09 AM CST Hospital Follow Up Call TCM Week: Week #3 Did patient attend PCP TCM appointment? yes Brief description of patient status: Patient reports she is doing well. She saw PCP yesterday for avirtual visit. Patient denies much back pain any more and if she has a little pain, then she takes Extra Strength Tylenol and that helps. She puts her TLSO brace on in the morning, after she gets herself ready and gets dressed etc. She said once she is able to sit down, then she puts it on. She isn't complaint with the use of the CPAP because she states she doesn't like the mask, but has a new one in the drawer, but hasn't put it on yet. No issues with bowels or urination. She is eating and drinking good. She still has her PICC line in and should be done with her IV therapy on Tuesday. She said she was wondering why the home health nurse is coming today, to change the PICC line dressing, if it's going to be removed on Tuesday anyway. She denies any SOB. CC asked if she picked up her new lancets and test strips and she stated she forgot. She states darienjust doesn't remember things as good as she used to and may have her daughter pick them up today, if she remembers to tell her. CC instructed her to write herself notes. Patient informed of CCM services and patient declines any further calls from the CC team, so this concludes the CC team's services. Patient concerns or urgent matters that need addressed: no Goals: Complete Plan of Care: The CC team will no longer be following this patient by phone, per patient request and she declines CCM services at this time. T COORDINATOR documented in this encounter Plan of Treatment Upcoming Encounters Date Type Department Care Team (Late st Contact Info) Description 10/03/2024 11:00 AM ASSET COORDINATOR Office Visit [facility] Pulmonology Specialty Clinic - [place] [address] [place] [address] Nathan Baig MD [address] [place] [address] [place] [address] 11/14/2024 10:20 AM ASSET COORDINATOR Office Visit [facility] Multispecialty Care - [place] [address] [address] [place] [address] Tracy Olivares MD [address] [place] [address] documented as of this encounter Visit Diagnoses Not on filedocumented in this encounter Additional Health Concerns Assessment Noted Time PHQ-9 Depression Total Score: 2 09/14/19 24 11:30 AM ASSET COORDINATOR documented as of this encounter Care Teams Medication Tech Relationship Specialty Start Date End Date Tracy Olivares MD [address] [place] [address] PCP - General INTERNAL MEDICINE 01/02/21 Nathan Baig MD [address] [address] Consulting Physician Internal Medicine Pulmonary Disease 09/16/21 documented as of this encounter
--- OUTSIDE RECORDS SUMMARY | 2024-09-07 05:21 | XMS_ITS | Encounter Summary ---
Author Organization [facility] Address [address] [place] [address]. [place], [place] [address] [place] [address] Care Team Providers Care Shipping Support Clerk Name Role Phone Tracy Olivares MD Primary Care Provider [phone] Nathan Baig MD Unavailable [phone] Encounter Details Date Type Department Care Team (Latest Contact Info) Description 08/15/2024 Scan HEALTH INFO SRVCS Scanned, Doc Med [...] st Contact Info) Description 10/03/2024 11:00 AM MARKETING SUPPORT COORDINATOR Office Visit [facility] Medical Group Pulmonology Specialty Clinic - [place] [address] [address] Nathan Baig MD [address] [place] [address] 11/14/2024 10:20 AM MARKETING SUPPORT COORDINATOR Office Visit [facility] Medical Group Multispecialty Care - [place] [address] [address] [place] [address] Tracy Olivares MD [address] [place] [address] documented as of this encounter Visit Diagnoses Not on filedocumented in this encounter Additional Health Concerns Assessment Noted Time PHQ-9 Depression Total Score: 2 09/14/19 24 11:30 AM MARKETING SUPPORT COORDINATOR documented as of this encounter Care Teams Shipping Support Clerk Relationship Specialty Start Date End Date Tracy Olivares MD [address] [place] [address] PCP - General INTERNAL MEDICINE 01/02/21 Nathan Baig MD [address] [address] Consulting Physician Internal Medicine Pulmonary Disease 09/16/21 documented as of this encounter
--- OUTSIDE RECORDS SUMMARY | 2024-09-07 05:21 | XMS_ITS | Encounter Summary ---
Author Organization [facility] Address [address] [place] [address]. [place] [id number] [place] [address] Care Team Providers Care Real Estate Management Specialist Name Role Phone Tracy Olivares MD Primary Care Provider [phone] Nathan Baig MD Unavailable [phone] Reason for Referral * Consultation (Urgent) - Authorized Specialty Diagnoses / Procedures Referred By Contac t Referred To Contact OTOLARYNGOLOGY Diagnoses Bilateral hearing loss, unspecified hearing loss type Tinnitus of both ears Procedures OFFICE/OUTPATIENT NEW LOW MDM 30-44 MINUTES OFFICE/OUTPT VISIT,NEW,LEVL IV OFFICE/OUTPT VISIT,NEW,LEVL V OFFICE/OUTPT VISIT,EST,LEVL III OFFICE/OUTPT VISIT,EST,LEVL IV OFFICE/OUTPT VISIT,EST,LEVL V Tracy Olivares MD [address] [facility] [address] [place] [address] Phone: tel: fax: [facility], [address] [address] Phone: tel: fax: Referral ID Status Reason Start Date Expiration Date V isits Requested Visits Authorized [id number] Authorized 08/14/2024 08/14/[address] Genaro Melara at [facility] in [place], [place]. TABLE OPERATOR Reason for Visit * Reason Onset Date Comments Concerns 08/14/2024 Referral 08/14/2024 Encounter Details Date Type Department Care Team (Late Contact Info) Description 08/14/2024 [facility] - [place] [address] [address] [place] [address] Tracy Olivares MD [address] [facility] [address] [place] [address] Concerns; Referral Social History Tobacco Use Types Packs/Day [...] of this encounter Progress Notes * Jessica Lockhart - 08/14/2024 11:48 AM CST The patient is calling because she is having a loud ringing in both ears. Comes and goes in right ear, but stays constant in left ear. Patient is requesting a referral to Dr. Genaro Melara at [facility] in [place], [place]. TABLE OPERATOR documented in this encounter Plan of Treatment Upcoming Encounters Date Type Department Care Team (Late Contact Info) Description 10/03/2024 11:00 AM ROLL TABLE OPERATOR Office Visit [facility] Medical [facility] - [place] [address] [address] Nathan Baig MD [address] [place] [id number] 11/14/2024 10:20 AM ROLL TABLE OPERATOR Office Visit [facility] Medical [facility] Multispecialty Care - [place] [address] [address] [place] [address] Tracy Olivares MD [address] [place] [phone] Scheduled Referrals Name Type Priority Associated Diagnoses Orde r Schedule Ambulatory referral to ENT Referral Routine Bilateral hearing loss, unspecified hearing loss type Tinnitus of both ears Ordered: 08/14/2024 documented as of this encounter Visit Diagnoses Diagnosis Bilateral hearing loss, unspecified hearing loss type- Primary Tinnitus of both ears Unspecified tinnitus documented in this encounter Additional Health Concerns Assessment Noted Time PHQ-9 Depression Total Score: 2 09/14/19 24 11:30 AM ROLL TABLE OPERATOR documented as of this encounter Care Teams Real Estate Management Specialist Relationship Specialty Start Date End Date Tracy Olivares MD [address] [place] [address] PCP - General INTERNAL MEDICINE 01/02/21 Nathan Baig MD [address] [address] Consulting Physician Internal Medicine Pulmonary Disease 09/16/21 documented as of this encounter
--- OUTSIDE RECORDS SUMMARY | 2024-09-07 05:21 | XMS_ITS | Encounter Summary ---
Author Organization [facility] Address [address] [place] [address]. [place] [id number] [place] [address] Care Team Providers Care Fiber Locking Supervisor Name Role Phone Tracy Olivares MD Primary Care Provider [phone] Nathan Baig MD Unavailable [phone] Reason for Visit * Reason Onset Date Comments Error 08/17/2024 Encounter Details Date Type Department Care Team (Late st Contact Info) Description 08/17/2024 Telephone [facility] Multispecialty Care - [place] [address] [address] [place] [address] [place] [address] [place] [address] [address] [place] [address] Error Social History Tobacco Use Types Packs/Day Years [...] as of this encounter Progress Notes * Lester Huffman - 08/17/2024 9:11 AM CST Error MILL OPERATOR documented in this encounter Plan of Treatment Upcoming Encounters Date Type Department Care Team (Late st Contact Info) Description 10/03/2024 11:00 AM WASH MILL OPERATOR Office Visit [facility] Medical [facility] - [address] [address] Nathan Baig MD [address] [address] 11/14/2024 10:20 AM WASH MILL OPERATOR Office Visit [facility] Multispecialty Care - [place] [address] [address] [place] [address] Tracy Olivares MD [address] [place] [id number] documented as of this encounter Visit Diagnoses Not on filedocumented in this encounter Additional Health Concerns Assessment Noted Time PHQ-9 Depression Total Score: 2 09/14/19 24 11:30 AM WASH MILL OPERATOR documented as of this encounter Care Teams Fiber Locking Supervisor Relationship Specialty Start Date End Date Tracy Olivares MD [address] [place] [address] PCP - General INTERNAL MEDICINE 01/02/21 Nathan Baig MD [address] [address] Consulting Physician Internal Medicine Pulmonary Disease 09/16/21 documented as of this encounter
--- OUTSIDE RECORDS SUMMARY | 2024-09-07 05:21 | XMS_ITS | Clinical Summary ---
Author Organization [facility] Address [address] [place] [address]. [place], [place] [id number] [place] [address] Care Team Providers Care Housing Counselor Name Role Phone Tracy Olivares MD Primary Care Provider [phone] Nathan Baig MD Unavailable [phone] Allergies Active Allergy Reactions Criticality Noted Date Comments Celecoxib Itching 02/22/2024 Propoxyphene Unknown 07/24/2012 Medications aspirin 81 MG tablet Take 1 tablet (81 mg total) by mouth daily. Active ONETOUCH VERIO test strip 01/19/20 21 Active cetirizine (ZYRTEC) 10 MG tabletIndications :Seasonal allergies Take 1 tablet (10 mg total) by mouth daily. 90 tablet 3 10/29/19 23 Active famotidine (PEPCID) 20 MG tabletIndications :Gastroesophageal reflux disease without esophagitis Take one tablet two times daily as needed for heart burn. 180 tablet 1 03/20/20 24 Active Fluticasone-Umecl idin-Vilant (TRELEGY ELLIPTA) 100-62.5-25 MCG/ACT AEROSOL POWDER, BREATH ACTIVATEDIndicati ons:Pulmonary emphysema, unspecified emphysema type (CMS/HCC HHS/HCC) Inhale 1 puff into the lungs daily. 180 each 3 03/20/20 24 Active albuterol sulfate HFA 108 (90 Base) MCG/ACT inhalerIndication s:Seasonal allergic rhinitis due to pollen Inhale 2 puffs into the lungs every 4 (four) hours as needed. 18 g 5 03/20/20 24 Active atorvastatin (LIPITOR) 20 MG tabletIndications :Mixed hyperlipidemia Take 1 tablet (20 mg total) by mouth nightly at bedtime. at bedtime 90 tablet 1 03/20/20 24 Active empagliflozin (JARDIANCE) 25 MG tabletIndications :Type 2 diabetes mellitus with hyperglycemia, without long-term current use of insulin ([facility] HHS/HCC) Take 1 tablet (25 mg total) by mouth daily. 90 tablet 1 03/27/20 24 Active gabapentin (NEURONTIN) 300 MG capsuleIndication s:Idiopathic peripheral neuropathy Take 1 capsule (300 mg total) by mouth nightly at bedtime. 90 capsule 1 04/25/20 24 Active Blood Glucose Monitoring Suppl KitIndications:Ty pe 2 diabetes mellitus with hyperglycemia, without long-term current use of insulin (CMS/[facility] HHS/HCC) Use daily to check blood sugar. Okay to substitute with whichever one insurance will cover thank you. 1 kit 05/08/20 24 Active Blood Gluc Meter Disp-Strips (BLOOD GLUCOSE METER DISPOSABLE) DeviceIndications :Type 2 diabetes mellitus with hyperglycemia, without long-term current use of insulin ([facility] HHS/HCC) Use daily to check blood sugar. Okay to substitute with whichever brand insurance will cover. 100 each 05/08/20 Active Blood Glucose Monitoring Suppl (ONE TOUCH ULTRA 2) w/Device KitIndications:Ty pe 2 diabetes mellitus with hyperglycemia, without long-term current use of insulin (CMS/[facility] HHS/HCC) Check blood sugar twice a day before meals. 1 kit 06/06/20 24 Active Glucose Blood test stripIndications: Type 2 diabetes mellitus with hyperglycemia, without long-term current use of insulin (CMS/[facility] HHS/HCC) Check blood sugar twice a day before meals. 300 strip 1 06/06/20 24 Active Lancets (ONETOUCH ULTRASOFT) lancetsIndication s:Type 2 diabetes mellitus with hyperglycemia, without long-term current use of insulin (CMS/[facility] HHS/HCC) Check blood sugar twice a day before meals. 100 each 06/06/20 24 Active Cholecalciferol 50 MCG (1999 UT) Tab Take 1 tablet by mouth daily. Active ceFEPIme (MAXIPIME) 2 GM/100ML IV SOLN Inject 100 mLs (2 g total) into the vein every 12 (twelve) hours. Active melatonin 3 MG tablet Take 1 tablet (3 mg total) by mouth nightly as needed. Active Senna (SENOKOT) 8.6 MG tablet Take 1 tablet (8.6 mg total) by mouth 2 (two) times daily as needed for Constipation. Active HYDROcodone-aceta minophen (NORCO) 5-325 MG tablet Take 1 tablet by mouth every 4 (four) hours as needed for Pain. Active acetaminophen (TYLENOL) 500 MG tablet Take 1 tablet (500 mg total) by mouth every 6 (six) hours as needed for Pain. Active Magnesium Hydroxide (MILK OF MAGNESIA OR) Take 30 mLs by mouth daily as needed. Active lidocaine 4 % patch Place 1 patch onto the skin every 12 (twelve) hours. Remove & Discard patch within 12 hours or as directed by Active Glucose Blood (FREESTYLE LITE) test stripIndications: Type 2 diabetes mellitus with hyperglycemia, without long-term current use of insulin ([facility]) 1 strip by Other route as needed. Use as instructed 100 strip 3 08/01/20 24 Active Lancets MiscIndications:T ype 2 diabetes mellitus with hyperglycemia, without long-term current use of insulin ([facility]) Use daily to check blood sugar. Okay to substitute with whichever brand insurance will cover thank you. 100 each 11 08/01/20 24 Active clobetasol (TEMOVATE) 0.05 % creamIndications: Irritant contact dermatitis due to other agents,Drug therapy Apply topically 2 (two) times daily. Apply to site of irritation twice daily for 10 days. 60 g 08/16/20 24 Active docusate sodium (COLACE) 100 MG capsuleIndication s:Constipation, unspecified constipation type Take 1 capsule (100 mg total) by mouth 2 (two) times daily. 60 capsule 1 08/21/20 24 Active cyclobenzaprine (FLEXERIL) 10 MG tablet Take 1 tablet (10 mg total) by mouth 3 (three) times daily as needed for Muscle Spasms. 2023 Discontinued Active Problems Problem Noted Date Diagnosed Date Osteomyelitis of lumbar spine ([facility]) 08/21/2024 shelter (current) use of insulin ([facility]) 03/20/2024 Type 2 diabetes mellitus wit h hyperglycemia, without long-term current use of insulin ([facility]) 03/20/2024 Moderate persistent asthma without complication ([facility]) 09/23/2023 Mixed hyperlipidemia 01/05/2022 RLS (restless legs syndrome) 09/10/2021 Mixed hyperglyceridemia 07/10/2021 Prediabetes 07/10/2021 Other specified anemias 07/10/2021 Knee pain 03/03/2021 Current moderate episode of major depressive disorder ([facility]) 01/05/2021 Overview (07/03/2021): On lexapro and stable. Essential hypertension 01/05/2021 Gastroesophageal reflux disease 01/05/2021 Hearing loss 01/05/2021 Impaired glucose tolerance in obese 01/05/2021 Obesity 01/05/2021 Glaucoma 01/05/2021 Cataract 01/05/2021 Anxiety 01/05/2021 FAISAL on CPAP 05/07/2020 Lumbar herniated disc 03/19/2013 Chronic low back pain with bilateral sciatica Shoulder pain 07/24/2012 Overview (01/05/2021): Description: LEFT ARM PAIN Resolved Problems Problem Noted Date Diagnosed Date Resolved Date Type 2 diabetes mellitus wit h hyperglycemia, without long-term current use of insulin ([facility]) 01/05/2022 04/02/2022 Pulmonary emphysema ([facility]) 04/17/2021 09/23/2023 Overview (04/27/2021): On Trelegy and albuterol. Stable. Acquired trigger finger 01/05/2021 04/2 02/2021 Acute pain 01/05/2021 01/05/2021 Allergic rhinitis 01/05/2021 01/05/2021 Breast tenderness 01/05/2021 01/05/2021 Chest pain 01/05/2021 01/05/2021 Cough 01/05/2021 01/05/2021 Current tear of medial carti sharon or meniscus of knee 01/05/2021 01/05/2021 Osteoarthrosis 01/05/2021 01/05/2021 Pain of right lower extremity 01/05/2021 01/05/2021 Palpitations 01/05/2021 01/05/2021 Sinusitis 01/05/2021 01/05/2021 Spinal stenosis 01/05/2021 01/05/2021 Upper respiratory infection 01/05/2021 01/05/2021 Weakness of left leg 01/05/2021 021 Duplicate medical record number alert 01/05/2021 01/05/2021 Routine general medical exam ination at a health care facility 04/20/2012 01/05/2021 Encounters Date Type Department Care Team Description 09/03/2024 1:30 PM TENDERIZER TENDER [facility] [address] [place] [address] Tracy Olivares MD Allied Health Visit (Potassium ) 09/03/2024 Telephone [facility] [address] [place] [address] Tracy Olivares MD Lab Order 09/03/2024 Travel 08/31/2024 Patient Outreach [facility] [address] [place] [address] Marisel Mancini, ARACELIS Hospital Follow Up (Call to [facility]) 08/29/2024 Scan [facility] INFO SRVCS Scanned, Doc [facility] Lab (SCAN) 08/29/2024 Telephone [facility] [address] [place] [address] Tracy Olivares MD Lab Results 08/28/2024 Scan [facility] INFO SRVCS Scanned, [facility] Lab (SCAN) 08/27/2024 Telephone [facility] [address] [place] [address] Tracy Olivares MD Results 08/24/2024 Scan [facility] INFO SRVCS Scanned, [facility] Lab (SCAN) 08/23/2024 Telephone [facility] [address] [place] [address] Tracy Olivares MD Results 08/22/2024 Travel 08/21/2024 12:20 PM TENDERIZER TENDER Telemedicine [place] [id number] [facility] [address] [place] [address] Alesia Rosario, DOCUMENTATION CLERK Lower Extremity Pain 08/21/2024 Travel 08/20/2024 Scan [facility] INFO SRVCS Scanned, [facility] Lab (SCAN) 08/20/2024 Telephone [place] [address] [facility] [address] [place] [address] Tracy Olivares MD Concerns 08/17/2024 Scan [facility] INFO SRVCS Scanned, Doc [facility] 08/17/2024 Telephone [place] [address] [place] [address] Tracy Olivares MD Error 08/16/2024 Telephone [place] [address] [facility] [address] [place] [address] Tracy Olivares MD Orders 08/15/2024 Scan [facility] INFO SRVCS Scanned, Doc [facility] 08/14/2024 Scan [facility] INFO SRVCS Scanned, Doc [facility] Lab (SCAN) 08/14/2024 Telephone [facility] [address] [place] [address] Tracy Olivares MD Concerns; Referral 08/13/2024 Telephone [facility] [address] [facility] [address] [place] [address] Tracy Olivares MD Referral 08/08/2024 Scan [facility] INFO SRVCS Scanned, [facility] Lab (SCAN) 08/08/2024 Patient Outreach [facility] [address] [place] [address] Marisel Mancini, RN Hospital Follow Up (TCM week #3) 08/08/2024 [facility]phone [facility] [address] [place] [address] Tracy Olivares MD Information 08/07/2024 11:20 AM TENDERIZER TENDER [facility]icine [facility] [address] [place] [address] Tracy Olivares MD Back Pain; TCM (/) 08/06/2024 [facility]phone [facility] [address] [place] [address] Tracy Olivares MD Information 2024 [facility] [address] [facility] [facility] [address] [place] [address] Marisel Mancini RN Hospital Follow Up (TCM Week #2) 07/30/2024 Scan [facility] INFO SRVCS Scanned, Doc Med [facility] 07/27/2024 Telephone [facility] [address] [place] [address] Tracy Olivares MD Appointment Request; Medication 07/25/2024 [facility] [address] [place] [address] Marisel Mancini RN TCM ([place] 06/27-07/10- discitis of lumbar region. Then [facility] for rehab 07/10-07/24/24) 07/25/2024 [facility]phone [facility] [address] [place], [place] [address] Tracy Olivares MD Referral 07/24/2024 Scan [facility] INFO SRVCS Scanned, Doc [facility] 07/23/2024 Telephone [facility] [address] [place] [address] Tracy Olivares MD Referral 07/17/2024 Patient Outreach [facility] [place] [address] [place] [address] Marisel Mancini RN Hospital Follow Up (Call to [facility]. ) 07/11/2024 Patient Outreach [place] [address] [place] [address] [address] [place] [address] Marisel Mancini RN Hospital Follow Up (Call to [facility]. ) 07/10/2024 Scan [facility] RIWI SRVCS Scanned, Doc Med [facility] 07/10/2024 Telephone [place] [address] [place] [address] [address] [place] [address] Tracy Olivares MD [facility] 07/03/2024 Telephone [place] [address] [place] [address] [address] [place] [address] Tracy Olivares MD Quality Gap Closure 07/02/2024 Scan [facility] INFO SRVCS Scanned, Doc [facility] 06/28/2024 Patient Outreach [place] [address] [place] [address] [address] [place] [address] Marisel Mancini RN Hospital Follow Up ( TCM [facility] Admit 06/27/24- lumbar discitis) 06/28/2024 Patient Outreach [place] [address] [place] [address] Marisel Mancini RN Hospital Follow Up (Call to [facility]. ) 06/26/2024 Scan [facility] INFO SRVCS Scanned, Doc [facility] Lab (SCAN); Image (SCAN) 06/25/2024 [facility] [address] [place] [address] Tracy Olivares MD Pre-visit Gap Closure from Last 3 Months Immunizations Name Administration Dates Next Due Flucelvax 6 Months+ (Prefill ed Syringe) 06/05/2019 Fluzone High Dose - >Age 65 (Prefilled Syringe) 06/08/2023,06/16/2022,06/08/2021 Influenza (Generic) 06/07/2014,06/12/2013 Influenza Adult (Generic) 06/08/2023,,05/28/2020,2017,05/20/2017,05/17/2016,06/10/2015,0 06/07/2014,06/12/2013 PFIZER COVID-19 (12+) MRNA, LNP-S, PF, ERIK-SUCROSE, 30 MCG/0.3 ML (COMIRNATY) 06/08/2023 PFIZER COVID-19 ([place] CAP), MRNA, LNP-S, PF, 30 MCG/0.3 ML ERIK-SUCROSE, IM 04/28/2022 PFIZER COVID-19 (ORIGINAL FORMULATION, PURPLE CAP) mRNA, LNP-S, PF, 30 MCG/0.3 ML DOSE 06/08/2023,12/30/2020,12/09/2020 Pneumococcal (Pneumovax 23) 03/03/2021, 6,05/01/2016 Pneumococcal (Prevnar 13) 04/02/2022 Tdap (Adacel) 07/06/2021 Family History Medical History Relation Comments diverticular Brother stomach issues Brother Cancer Father prostate, lymph node Prostate Cancer Father Diabetes Maternal Grandmother Diabetes Mother Diabetes Paternal Grandmother Glaucoma Paternal Grandmother Hyperlipidemia Sister Hypertension Sister diabetes Sister Relation Status Comments Brother Father Maternal Grandmother Mother Alive Paternal Grandmother Sister Social History Tobacco Use Types Packs/Day Years Used Date Smoking Tobacco: Former Cigarettes Smokeless Tobacco: Never Tobacco Cessation:Counseling Given: Yes Comments:Counseled by Dr. Olivares. Alcohol Use Standard Drinks/Week Comments Not Currently 0 (1 standard drink = 0.6 oz pur e alcohol) PHQ-2 Answer Date Recorded Patient Health Questionnaire-2 Score 0 03/23/2024 Comments No Sex and Gender Information Value Date Recorded Sex Assigned at Not on file Legal Sex Female 8:25 PM CDT Gender Identity Not on file Sexual Orientation Not on file Last Filed Vital Signs Vital Sign Reading Time Taken Comments Blood Pressure 140/84 03/23/2024 10:43 AM CDT Pulse 66 03/23/2024 10:43 AM CDT Temperature 36 ??C (96.8 ??F) 03/20/2024 9:19 AM CDT Respiratory Rate 16 03/23/2024 10:43 AM CDT Oxygen Saturation 100% 03/23/2024 10:43 AM CDT Inhaled Oxygen Concentration - - Weight 127.9 kg (282 lb) 08/21/2024 12:28 PM TENDERIZER TENDER Height 157.5 cm (5' 2 ) 08/21/2024 12:28 PM TENDERIZER TENDER Body Mass Index 51.58 08/21/2024 12:28 PM TENDERIZER TENDER Plan of Treatment Upcoming Encounters Date Type Department Care Team (Late st Contact Info) Description 10/03/2024 11:00 AM TENDERIZER TENDER Office Visit [facility] - [address] [address] Nathan Baig MD [address] [place] [address] 11/14/2024 10:20 AM TENDERIZER TENDER Office Visit [facility] [place] [address] [address] [place] [address] [place] [address] [place] [address] Health Maintenance Due Date Last Done Comments Kidney Health Evaluation 1955 Zoster Vaccines (1 of 2) 2005 RSV Immunization or 60+ Years (1 - Risk 60-74 years 1-dose series) 2015 Annual Medicare Wellness Visit 09/17/2022 09/16/2021 COVID-19 Vaccine ( season) 2024 06/08/2023, 06/08/2023, 04/28/2022, Additional history exists Hemoglobin A1C 09/23/2024 03/23/2024, 12/12, 07/02/2022, Additional history exists Diabetes: Retinopathy Eye Exam 02/02/2025 02/02/2023, 01/19/2022 Lipid Panel 03/23/2025 03/23/2024, 12/12, 07/02/2022, Additional history exists Mammogram Screening 05/10/2026 05/10/2024, 02/02/2023, 01/14/2022, Additional history exists Colorectal Cancer Screening Colonoscopy (10 Years) 05/26/2030 05/26/2020 DTaP, Tdap and Td Vaccines (2 - Td or Tdap) 07/06/2031 07/06/2021 Hepatitis C Completed 03/03/2021 Dexa Scan (General) Completed 03/17/2021 Influenza Adult Completed 07/10/2024, 05/14, 06/08/2023, Additional history exists Pneumococcal Vaccine: 65+ Years Completed 07/10/2024, 04/02/2022, 03/03/2021, Additional history exists Meningococcal Vaccine Aged Out No rolando laura eligible based on patient's age to complete this topic RSV Immunizations Under 20 Months Aged Out No longer eligible based on patient's age to complete this topic Procedures Procedure Name Priority Date/Time Associated Diagnosis Comments COMPREHENSIVE METABOLIC PANEL Routine 09/03/2024 5:01 PM TENDERIZER TENDER Essential hypertension VENIPUNC ARM DRAW Routine 09/03/2024 1:3 8 PM TENDERIZER TENDER General medical exam OUTSIDE LAB (SCAN ORDER) 08/29/2024 OUTSIDE LAB (SCAN ORDER) 08/29/2024 OUTSIDE LAB (SCAN ORDER) 08/29/2024 OUTSIDE LAB (SCAN ORDER) 08/28/2024 OUTSIDE LAB (SCAN ORDER) 08/28/2024 OUTSIDE LAB (SCAN ORDER) 08/28/2024 OUTSIDE LAB (SCAN ORDER) 08/28/2024 OUTSIDE LAB (SCAN ORDER) 08/24/2024 XR PELVIS+RT HIP 2V Routine 08/22/2024 1 :59 PM TENDERIZER TENDER Pain of both hip joints XR HIP LT 2V Routine 08/22/2024 1:59 PM TENDERIZER TENDER Pain of both hip joints OUTSIDE LAB (SCAN ORDER) 08/20/2024 OUTSIDE LAB (SCAN ORDER) 08/14/2024 OUTSIDE LAB (SCAN ORDER) 08/14/2024 OUTSIDE LAB (SCAN ORDER) 08/08/2024 OUTSIDE LAB (SCAN ORDER) 08/08/2024 VENIPUNC ARM DRAW Routine 08/07/2024 5:5 8 PM TENDERIZER TENDER Discitis of lumbar region OUTSIDE LAB (SCAN ORDER) 06/26/2024 OUTSIDE LAB (SCAN ORDER) 06/26/2024 OUTSIDE LAB (SCAN ORDER) 06/26/2024 OUTSIDE LAB (SCAN ORDER) 06/26/2024 OUTSIDE LAB (SCAN ORDER) 06/26/2024 IMAGE GENERIC 06/26/2024 IMAGE GENERIC 06/26/2024 MAMMOGRAM GENERIC (SCAN ORDER) 05/10/2024 LIPID PANEL Routine 03/23/2024 10:43 AM CDT General medical exam Annual physical exam HEMOGLOBIN, GLYCOSYLATED Routine 03/23/2024 10:43 AM CDT General medical exam Annual physical exam DIABETIC RETINOPATHY EXAM (NEGATIVE)(SCAN ORDER) Routine 02/02/2023 BONE DENSITY/DEXA Routine 03/17/2021 12: 00 AM CDT Menopause HEPATITIS C ANTIBODY Routine 03/03/2021 11:09 AM CDT Encounter for hepatitis C screening test for low risk patient COLONOSCOPY GENERIC (SCAN ORDER) 05/26/2020 from Last 3 Months or Most Recently Relevant to Health Maintenance Results * (ABNORMAL) COMPREHENSIVE METABOLIC PANEL (09/03/2024 5:01 PM TENDERIZER TENDER) Pathologist [facility] GLUCOSE 106(H) 65 - 99 mg/dL [employer] [facility] Comment: ? Fasting reference interval For someone without known diabetes, a glucose value between 100 and 125 mg/dL is consistent with prediabetes and should be confirmed with a follow-up test. BUN 15 7 - 25 mg/dL [facility] CREATININE S/P/B 0.70 0.50 - 1.05 mg/dL [employer] [facility] GFR ESTIMATE 94 > OR = 60 mL/min/1. 73m2 [employer] [facility] BUN CREATININE RATIO SEE NOTE: 6 - 22 (calc) [facility] Comment: ?? Not Reported: BUN and Creatinine are within ?? reference range. ? SODIUM S/P/B 140 135 - 146 mmol/L [facility] POTASSIUM S/P/B 4.2 3.5 - 5.3 mmol/L [facility] CHLORIDE S/P/B 99 98 - 110 mmol/L [facility] [place] CO2 33(H) 20 - 32 mmol/L [facility] [place] CALCIUM S/P/B 10.1 8.6 - 10.4 mg/dL [facility] TOTAL PROTEIN S/P/B 7.5 6.1 - 8.1 g/dL [facility] ALBUMIN S/P/B 4.3 3.6 - 5.1 g/dL [facility] GLOBULIN 3.2 1.9 - 3.7 g/dL (calc) [facility] ALBUMIN/GLOBULI N RATIO 1.3 1.0 - 2.5 (calc) [facility] BILIRUBIN TOTAL S/P/B 0.5 0.2 - 1.2 mg/dL [facility] ALKALINE PHOSPHATASE S/P/B 146 37 - 153 U/L [facility] AST 18 10 - 35 U/L [facility] ALT 17 6 - 29 U/L [facility] 09/03/2024 5:01 PM TENDERIZER TENDER 09/05/2024 2:52 AM TENDERIZER TENDER Narrative Resulting Agency Comment Performing Organization Information: ?Site ID: [place] ?Name: Anila Paul ?Address: [address] [place] [id number] ?Director: Mahin Mckeon MD Tracy Olivares MD LABORATORY Final Result ANILA CABAN [facility] [address] [place] [address], * OUTSIDE LAB (SCAN ORDER) (08/29/2024) Only the most recent of18 resultswithin the time period is included. 08/29/2024 [facility] Scanned SCANNING Final Resu lt * XR HIP LT 2V (08/22/2024 1:59 PM TENDERIZER TENDER) Anatomical Region Laterality Modality Hip Radiographic Zeynep ging 08/22/2024 1:42 PM TENDERIZER TENDER Narrative 08/27/2024 4:31 AM TENDERIZER TENDER [facility] Internal [address] ??[id number] INDICATION: Worsening hip and groin pain. COMPARISON: None. TECHNIQUE: 1. ??3 views of the pelvis and right hip. 2. ??2 views left hip. FINDINGS: There is no acute fracture or dislocation. There are mild degenerative changes of both hips. Both sacroiliac joints are normal and symmetric. There is no bony destructive process. IMPRESSION: 1. ??Mild degenerative osteoarthritis of both hips. 2. ??No acute process. Referred By: ?? Interpreted By: Aurelio Kincaid MD, 08/27/2024 4:30 AM Procedure Note Aurelio Kincaid MD - 08/27/[address] [address] INDICATION: Worsening hip and groin pain. COMPARISON: None. TECHNIQUE: 1. 3 views of the pelvis and right hip. 2. 2 views left hip. FINDINGS: There is no acute fracture or dislocation. There are mild degenerative changes of both hips. Both sacroiliac joints are normal and symmetric. There is no bony destructive process. IMPRESSION: 1. Mild degenerative osteoarthritis of both hips. 2. No acute process. Referred By: Interpreted By: Aurelio Kincaid MD, 08/27/2024 4:30 AM Alesia Rosario NP GENERAL IMAGING Final Resul t * XR PELVIS+RT HIP 2V (08/22/2024 1:59 PM TENDERIZER TENDER) Anatomical Region Laterality Modality Hip, Pelvis Radiographic Zeynep ging 08/22/2024 1:42 PM TENDERIZER TENDER Narrative 08/27/2024 4:31 AM TENDERIZER TENDER [facility] Internal [address] ??[id number] INDICATION: Worsening hip and groin pain. COMPARISON: None. TECHNIQUE: 1. ??3 views of the pelvis and right hip. 2. ??2 views left hip. FINDINGS: There is no acute fracture or dislocation. There are mild degenerative changes of both hips. Both sacroiliac joints are normal and symmetric. There is no bony destructive process. IMPRESSION: 1. ??Mild degenerative osteoarthritis of both hips. 2. ??No acute process. Referred By: ?? Interpreted By: Aurelio Kincaid MD, 08/27/2024 4:30 AM Procedure Note Aurelio Kincaid MD - 08/27/[address] [address] INDICATION: Worsening hip and groin pain. COMPARISON: None. TECHNIQUE: 1. 3 views of the pelvis and right hip. 2. 2 views left hip. FINDINGS: There is no acute fracture or dislocation. There are mild degenerative changes of both hips. Both sacroiliac joints are normal and symmetric. There is no bony destructive process. IMPRESSION: 1. Mild degenerative osteoarthritis of both hips. 2. No acute process. Referred By: Interpreted By: Aurelio Kincaid MD, 08/27/2024 4:30 AM Alesia Rosario NP GENERAL IMAGING Final Resul t * IMAGE GENERIC (06/26/2024) Only the most recent of2 resultswithin the time period is included. Anatomical Region Laterality Modality Other 06/26/2024 [facility] Scanned SCANNING Final Resu lt * MAMMOGRAM GENERIC (SCAN ORDER) (05/10/2024) Anatomical Region Laterality Modality Other 05/10/2024 [facility] Scanned SCANNING Final Resu lt * (ABNORMAL) HEMOGLOBIN, GLYCOSYLATED (03/23/2024 10:43 AM CDT) HGB A1C 6.1(H) <5.7 % of total Hgb [facility] Comment: For someone without known diabetes, a hemoglobin A1c value between 5.7% and 6.4% is consistent with prediabetes and should be confirmed with a follow-up test. For someone with known diabetes, a value <7% indicates that their diabetes is well controlled. A1c targets should be individualized based on duration of diabetes, age, comorbid conditions, and other considerations. This assay result is consistent with an increased risk of diabetes. Currently, no consensus exists regarding use of hemoglobin A1c for diagnosis of diabetes for children. ? This test was performed on the Tanisha jarrett c503 platform. Effective 11/28/23, a change in test platforms from the [facility] Manager to the Tanisha jarrett c503 may have shifted HbA1c results compared to historical results. Based on laboratory validation testing conducted at [facility], the Tanisha platform relative to the Cohen platform had an average increase in HbA1c value of < or = 0.3%. This difference is within accepted variability established by the National Glycohemoglobin Standardization Program. Note that not all individuals will have had a shift in their results and direct comparisons between historical and current results for testing conducted on different platforms is not recommended. 03/23/2024 10:4 3 AM CDT 03/24/2024 3:18 AM CDT Narrative Resulting Agency Comment Performing Organization Information: ?Site ID: [id number] ?Name: [facility] ?Address: [address] [address] ?Director: Mahin Mckeon MD Tracy Olivares MD LABORATORY Final Result ANILA TATUM - TYRONE CABAN [employer] [facility] [address] [place] [address], * LIPID PANEL (03/23/2024 10:43 AM CDT) CHOLESTEROL 125 <200 mg/dL [facility] HDL 62 > OR = 50 mg/dL [facility] TRIGLYCERIDES 83 <150 mg/dL [facility] LDL (CALCULATED) 46 mg/dL (calc) [facility] Comment: Reference range: <100 Desirable range <100 mg/dL for primary prevention; ?? <70 mg/dL for patients with CHD or diabetic patients with > or = 2 CHD risk factors. LDL-C is now calculated using the Go calculation, which is a validated novel method providing better accuracy than the Friedewald equation in the estimation of LDL-C. Buddy ANAND et al. PORTER. 2013;310(19): 1541-3372 (http://education.National Transcript Center/faq/INO938) CHOL/HDL RATIO 2.0 <5.0 (calc) [facility] NON HDL CHOLESTEROL 63 <130 mg/dL (calc) [facility] Comment: For patients with diabetes plus 1 major ASCVD risk factor, treating to a non-HDL-C goal of <100 mg/dL (LDL-C of <70 mg/dL) is considered a therapeutic option. 03/23/2024 10:4 3 AM CDT 03/24/2024 3:18 AM CDT Narrative Resulting Agency Comment Performing Organization Information: ?Site ID: [place] ?Name: [facility] ?Address: [address] [place] [address] ?Director: Mahin Mckeon MD Tracy Olivares MD LABORATORY Final Result Performing Organization Address City/[facility]/ZIP Co de Phone Number ANILA CABAN [employer] [facility] [address] [place] [address], * DIABETIC RETINOPATHY EXAM (NEGATIVE)(SCAN) (02/02/2023) [facility] Scanned SCANNING Final Resu lt [facility] * BONE DENSITY/DEXA (03/17/2021 12:00 AM CDT) Anatomical Region Laterality Modality Bone Bone Density 03/17/2021 Tracy Olivares MD DEXA Final Result * HEPATITIS C ANTIBODY (03/03/2021 11:09 AM CDT) HEPATITIS C AB NON-REACTI VE NON-REACT PATRIA 03/04/2021 6:57 PM CDT [facility] Comment: ANTIBODIES TO HCV NOT DETECTED. DOES NOT EXCLUDE THE POSSIBILITY OF EXPOSURE TO HCV. 03/03/2021 11:0 9 AM CDT Tracy Olivares MD LABORATORY Final Result [facility] [address] [place] [address], [place] [phone] [id number] * COLONOSCOPY GENERIC (05/26/2020) 05/26/2020 Narrative 05/26/2020 Ordered by an unspecified provider. us Documents Scanned SCANNING Final Result from Last 3 Months or Most Recently Relevant to Health Maintenance Insurance [employer] Care Teams Housing Counselor Relationship Specialty Start Date End Date Tracy Olivares MD [address] [facility] [address] [place] [address] PCP - General INTERNAL MEDICINE 01/02/21 Nathan Baig MD [address] [place] [address] Consulting Physician Internal Medicine Pulmonary Disease 09/16/21
--- OUTSIDE RECORDS SUMMARY | 2024-09-07 05:21 | XMS_ITS | Encounter Summary ---
Author Organization [facility] Address [address] [place] [address]. [place], [place] [address] [place] [address] Care Team Providers Care Concrete Mixing Truck Driver Name Role Phone Tracy Olivares MD Primary Care Provider Nathan Baig MD Unavailable [phone] Reason for Visit * Reason Comments Lab (SCAN) Encounter Details Date Type Department Care Team (Latest Contact Info) Description 08/24/2024 Scan HEALTH INFO SRVCS Scanned, Doc Med [...] st Contact Info) Description 10/03/2024 11:00 AM WINDING RACK OPERATOR Office Visit [facility] Pulmonology Specialty Clinic - [address] [place] [address] Nathan Baig MD [address] [place] [address] 11/14/2024 10:20 AM WINDING RACK OPERATOR Office Visit [facility] - [place] [address] [address] [place] [address] Tracy Olivares MD [address] [address] documented as of this encounter Procedures Procedure Name Priority Date/Time Associated Diagnosis Comments OUTSIDE LAB (SCAN ORDER) 08/24/2024 documented in this encounter Results * OUTSIDE LAB (SCAN ORDER) (08/24/2024) 08/24/2024 [facility] Scanned SCANNING Final Resu lt documented in this encounter Visit Diagnoses Not on filedocumented in this encounter Additional Health Concerns Assessment Noted Time PHQ-9 Depression Total Score: 2 09/14/19 24 11:30 AM WINDING RACK OPERATOR documented as of this encounter Care Teams Concrete Mixing Truck Driver Relationship Specialty Start Date End Date Tracy Olivares MD [facility] [address] [address] PCP - General INTERNAL MEDICINE 01/02/21 Nathan Baig MD [address] [address] Consulting Physician Internal Medicine Pulmonary Disease 09/16/21 documented as of this encounter
--- OUTSIDE RECORDS SUMMARY | 2024-09-07 05:21 | XMS_ITS | Encounter Summary ---
Author Organization [facility] Address [address] [place] [address]. [place], [place] [address] [place] [address] Care Team Providers Care Funeral Professional Name Role Phone Tracy Olivares MD Primary Care Provider [phone] Nathan Baig MD Unavailable [phone] Reason for Visit * Reason Comments Lower Extremity Pain Encounter Details Date Type Department Care Team (Late st Contact Info) Description 08/21/2024 12:20 PM MOSS GATHERER Telemedicine [facility] Multispecialty Care - [place] [address] [facility] [address] [place], [place] [id number] Keri Rosario, PROJECT CONTROL MANAGER [address] [facility] [address] [place] [address] Lower Extremity Pain Social History Tobacco Use Types Packs/Day Years [...] on file documented as of this encounter Last Filed Vital Signs Vital Sign Reading Time Taken Comments Blood Pressure - - Pulse - - Temperature - - Respiratory Rate - - Oxygen Saturation - - Inhaled Oxygen Concentration - - Weight 127.9 kg (282 lb) 08/21/2024 12:28 PM MOSS GATHERER Height 157.5 cm (5' 2 ) 08/21/2024 12:28 PM MOSS GATHERER Body Mass Index 51.58 08/21/2024 12:28 PM MOSS GATHERER documented in this encounter Patient Instructions * Patient Instructions* Keri Rosario NP - 08/21/2024 12:20 PM MOSS GATHERER Milk of magnesia Colace once or twice daily GATHERER documented in this encounter Progress Notes * Keri Rosario NP - 08/21/2024 12:20 PM CSTSummary: hip pain Images from the original note were not included. Internal Medicine Outpatient Progress Note CC: Lower Extremity Pain I introduced and identified myself, received verbal consent from the patient to proceed with this video visit and made the patient aware that the same confidentiality and health information provider practices apply. The patient confirmed at the start of this visit that they are completing this visit from Home, currently located in the [facility] [13], a state in which I am licensed to practice. I completed the virtual visit from: [address] [facility] MULTISPECIALTY CARE - [address] [place] [address] Dept: [phone] Dept . The following clinical staff helped with this visit MA: ortega . Total Time Spent in Minutes: 26m 04s HPI: Keegan Amaya is a 69-year-old female who presents to discuss pain she reports pain in left hip, left groin and right groin which is new. Intermittent pain down her left leg. Pain is intermittent hurts with movement states she has been in bed due to trouble walking. Recent hospital admission with o steomyelitis.discitis L4-L5 on IV Cefepime through PICC line. No fevers. She has been getting physical therapy at home and noticed pain started after this. Doing exercises in her bed is hesitant to do them due to pain. Denies fall or injury, no abdominal pain or urinary symptoms. Labs and urine test from [facility] therapy yesterday. She stopped Hydrocodone but restarted due to worsening pain. She is taking Tylenol 1000mg Tylenol three times daily and Hydrocodone 1/2 tab once or twice daily. Last bowel movement Tuesday has some constipation but is passing gas. Cystocele Urology appointment tomorrow Patient has history of below: Patient Active Problem List Diagnosis Current moderate episode of major depressive disorder ([facility]) Essential hypertension Gastroesophageal reflux disease Hearing loss Impaired glucose tolerance in obese Shoulder pain Chronic low back pain with bilateral sciatica Obesity Lumbar herniated disc FAISAL on CPAP Glaucoma Cataract Anxiety Knee pain Mixed hyperglyceridemia Prediabetes Other specified anemias RLS (restless legs syndrome) Mixed hyperlipidemia Moderate persistent asthma without complication ([facility]) 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) Osteomyelitis of lumbar spine ([facility]) Review of Systems Constitutional: Negative. HENT: Negative. Eyes: Negative. Respiratory: Negative. Cardiovascular: Negative. Musculoskeletal: Hip pain, pelvic pain Neurological: Negative. Psychiatric/Behavioral: Negative. Past Medical History: Past Medical History: Diagnosis Date Anxiety Cataract Chronic low back pain COPD (chronic obstructive pulmonary disease) ([facility]) Depression Diabetes mellitus ([facility]) GERD (gastroesophageal reflux disease) Glaucoma Hearing loss left ear Hypertension Impaired glucose tolerance Obese FAISAL on CPAP Shoulder pain Sleep apnea Family History: Family History Problem Relation Name Age of Onset Diabetes Mother Cancer Father prostate, lymph node Prostate Cancer Father Hyperlipidemia Sister Hypertension Sister Other (diabetes) Sister Other (stomach issues) Brother Other (diverticular) Brother Diabetes Maternal Grandmother Diabetes Paternal Grandmother Glaucoma Paternal Grandmother Social History: Social History Tobacco Use Smoking status: Former Current packs/day: 1.50 Types: Cigarettes Smokeless tobacco: Never Tobacco comments: Counseled by Dr. Olivares. Vaping Use Vaping status: Never Used Substance Use Topics Alcohol use: Not Currently Drug use: Not Currently Medications: Outpatient Medications Marked as Taking for the 08/21/24 encounter (Telemedicine) with Keri Rosario NP Medication Sig Dispense Refill docusate sodium (COLACE) 100 MG capsule Take 1 capsule (100 mg total) by mouth 2 (two) times daily.60 capsule 1 Allergies: Review of patient's allergies indicates: Celebrex [celecoxib] and Propoxyphene ? Objective: Filed Vitals: 08/21/24 1228 Weight: 127.9 kg (282 lb) Height: 1.575 m (5' 2 ) Body mass index is 51.58 kg/m??. Physical Exam Constitutional: General: She is not in acute distress. Appearance: Normal appearance. She is not ill-appearing. Eyes: Conjunctiva/sclera: Conjunctivae normal. Pulmonary: Effort: Pulmonary effort is normal. Musculoskeletal: Comments: Limited exam due to telehealth appointment Neurological: Mental Status: She is alert. Psychiatric: Mood and Affect: Mood normal. Behavior: Behavior normal. Judgment: Judgment normal. Assessment and Plan: 1. Pain of both hip joints Exam limited due to telehealth appointment. Recent inactivity due to osteomyelitis lumpar spine with home physical therapy may have caused new onset musculoskeletal pain. Will order xray to evaluate for underlying arthritis. Continue tylenol and hydrocodone for pain. Reviewed max dose tylenol in 24hours. - XR PELVIS+RT HIP 2V; Future - XR HIP LT 2V; Future 2. Constipation, unspecified constipation type Milk of magnesia as needed, miralax not effective Start colace once to twice daily while on hydrocodone - docusate sodium (COLACE) 100 MG capsule; Take 1 capsule (100 mg total) by mouth 2 (two) times daily. Dispense: 60 capsule; Refill: 1 3. Osteomyelitis of lumbar spine ([facility]HCC [facility]/HCC) IV Cefepime through PICC line and follow up with neurosurgery Tobacco: Counseling given: Not Answered Tobacco comments: Counseled by Dr. Olivares. I personally spent a total of 35 minutes on the day of the encounter. This includes xgds-kc-slvy and kin-hqyy-zz-face time I provided on the day of the encounter & excludes time spent performing separately reportable services. Side effects and less common but more severe adverse effects of recommended medical therapies were explained to the patient. Patient reminded to use MyChart or telephone follow up prn if symptoms change, worsen, or persist, or if side effect of treatment is experienced. RTC in 1 week virtual or in person KERI ROSARIO NP 08/21/2024 [facility] Cosigned by Tracy Olivares MD at 08/21/2024 3:10 PM MOSS GATHERER GATHERER GATHERER documented in this encounter Plan of Treatment Upcoming Encounters Date Type Department Care Team (Late st Contact Info) Description 10/03/2024 11:00 AM MOSS GATHERER Office Visit [facility] Pulmonology Specialty Clinic - [address] [place] [address] Nathan Baig MD [address] [facility] [address] [place] [address] 11/14/2024 10:20 AM MOSS GATHERER Office Visit [facility] Multispecialty Care - [place] [address] [address] [place] [address] Tracy Olivares MD [address] [facility] [address] [place] [address] documented as of this encounter Results * XR HIP LT 2V (08/22/2024 1:59 PM MOSS GATHERER) Anatomical Region Laterality Modality Hip Radiographic Zeynep ging 08/22/2024 1:42 PM MOSS GATHERER Narrative 08/27/2024 4:31 AM MOSS GATHERER [facility] Family and Internal Medicine - [address] ??[phone] INDICATION: Worsening hip and groin pain. COMPARISON: [...] Procedure Note Aurelio Kincaid MD - 08/27/2024 [facility] Internal [address] [address] INDICATION: Worsening hip and groin pain. COMPARISON: [...] By: Aurelio Kincaid MD, 08/27/2024 4:30 AM us Keri Rosario NP GENERAL IMAGING Final Resul t * XR PELVIS+RT HIP 2V (08/22/2024 1:59 PM MOSS GATHERER) Anatomical Region Laterality Modality Hip, Pelvis Radiographic Zeynep ging 08/22/2024 1:42 PM MOSS GATHERER Narrative 08/27/2024 4:31 AM MOSS GATHERER [address] ??[address] INDICATION: Worsening hip and groin pain. COMPARISON: [...] Procedure Note Aurelio Kincaid MD - 08/27/2024 [facility] Internal [address] [address] INDICATION: Worsening hip and groin pain. COMPARISON: [...] By: Aurelio Kincaid MD, 08/27/2024 4:30 AM Keri Rosario NP GENERAL IMAGING Final Resul t documented in this encounter Visit Diagnoses Diagnosis Pain of both hip joints- Primary Constipation, unspecified constipation type Osteomyelitis of lumbar spine (CMS/HCC HHS/HCC) Unspecified osteomyelitis, other specified site documented in this encounter Additional Health Concerns Assessment Noted Time PHQ-9 Depression Total Score: 2 09/14/19 24 11:30 AM MOSS GATHERER documented as of this encounter Care Teams Funeral Professional Relationship Specialty Start Date End Date Tracy Olivares MD [address] [facility] [address] [place] [address] PCP - General INTERNAL MEDICINE 01/02/21 Nathan Baig MD [address] [address] Consulting Physician Internal Medicine Pulmonary Disease 09/16/21 documented as of this encounter
--- OUTSIDE RECORDS SUMMARY | 2024-09-07 05:21 | XMS_ITS | Continuity of Care Document ---
Author Organization [facility] Address [address] [place] [address] [address] [place] [address]- Care Team Providers Care Pattern Carrier Name Role Phone Unavailable Primary Care Physician Unavailab le Encounter(s) 07/10/[address] [place] [address]- Attending Physician: Genaro Jaramillo MD Admitting Physician: Genaro Jaramillo MD Allergies, Adverse Reactions, Alerts Substance Criticality Severity Reaction Reaction Severity Status celecoxib Allergy Active Assessment and Plan Extracted from: Title:Clinical Document Author:Jessica Moreland Date:07/19/24 IDT reviewed resident? s current status and agrees that score match resident? s abilities and GG discharge goals are reasonable and measurable. See resident? s 5D for GG coding details. The information that was used to complete the MDS admission, 5day and D/C for this patient was gathered using SURVEILLANCE OPERATOR, nursing and physical therapy documentation. The care plan was not updates by MDS due to resident discharge before the 21st day Extracted from: Title:Covid Outbreak Author:Suzy Land Date:07/18/24 Nurse Director Energy Fang wong family about covid outbreak. Will [...] hygiene and offloading pressure. Patient allowed this inspector automatic typewriter to float heels. Extracted from: Title:Clinical Document [...] Laboratory List Name Date C Reactive Protein* ([facility]) 07/23/24 CBCwDiff* ([facility]) 07/23/24 Comp Met Plas* ([facility]) 07/23/24 CBC without Diff (WAM)* ([facility]) 07/16/24 Comp Met Plas* ([facility]) 07/16/24 Most recent to oldest [Reference Range]: [...] AM) Chloride [97-110 mmol/L] 105 mmol/L 41 (07/23/24:30 AM) 105 mmol/L 42 (07/16/24:56 AM) Albumin [3.5-5.0 gm/dL] 3.4 gm/dL 43 *LOW* (07/23/24:30 AM) 3.5 gm/dL 44 (07/16/24:56 AM) Creatinine* ([place]) [0.60-1.10 mg/dL] 0.66 mg/dL 45 (07/23/24 5:30 AM) 0.66 mg/dL 46 (07/16/24 5:56 AM) Sodium [135-145 mmol/L] 140 mmol/L 47 (07/23/24 5:30 AM) 140 mmol/L 48 (07/16/24 5:56 AM) Alkaline Phosphatase [40-130] 152 49 *HI* (07/23/24:30 AM) 141 50 *HI* (07/16/24:56 AM) Neutrophils (Absolute) [1.5-6.5] 2.5 51 (07/23/24 5:30 AM) Dupage Absolute [0.2-0.8] 0.5 52 (07/23/24:30 AM) Platelet Count [150-400] 247 53 (07/23/24 5:30 AM) 256 54 (07/16/24 5:56 AM) Anion Gap [2-15 mmol/L] 6 mmol/L 55 (07/23/24:30 AM) 7 mmol/L 56 (07/16/24:56 AM) eGFR [>=60] >90 57 (07/23/24 5:30 [...] 69 *HI* (07/16/24 5:56 AM) 1Result Comment: [address] [address] 2Result Comment: [address] [address] 3Result Comment: [address] [address] 4Result Comment: [address] [address] 5Result Comment: [address] [address] 6Result Comment: [address] [address] 7Result Comment: Interpretive Data Percent cell count reference ranges are not reported, since discordance with absolute values may lead to misinterpretation of CBC data. Current Interpretive Data was last revised on 2017. [address] [address] 8Result Comment: Interpretive Data Percent cell count reference ranges are not reported, since discordance with absolute values may lead to misinterpretation of CBC data. Current Interpretive Data was last revised on 2017. [address] [address] 9Result Comment: [address] [address] 10Result Comment: [address] 6[address] 11Result Comment: Interpretive Data Percent cell count reference ranges are not reported, since discordance with absolute values may lead to misinterpretation of CBC data. Current Interpretive Data was last revised on 2017. [address] [address] 12Result Comment: [address] 385[address] 13Result Comment: [address] 74[address] 14Result Comment: [address] [address] 15Result Comment: [address] [address] 16Result Comment: [address] 058[address] 17Result Comment: [address] 830[address] 18Result Comment: [address] [address] 19Result Comment: [address] 88054 20Result Comment: [address] [address] 21Result Comment: [address] 9[address] 22Result Comment: [address] 9[address] 23Result Comment: [address] [address] 24Result Comment: [address] 289[address] 25Result Comment: [address] 10399 26Result Comment: [address] 27112 27Result Comment: [address] 73458 28Result Comment: [address] 77[address] 29Result Comment: [address] 89210 30Result Comment: [address] 25234 31Result Comment: [address] 30727 32Result Comment: [address] 80833 33Result Comment: Interpretive Data Fasting glucose >/= [...] Current interpretive data was last revised 2022. [address] [address] 34Result Comment: Interpretive Data Fasting glucose >/= [...] classification and Diagnosis of Diabetes Diabetes Care 2021; 46: S19-S40. Current interpretive data was last revised 2022. [address] [address] 35Result Comment: [address] 81874 36Result Comment: [address] [address]23[address] 37Result Comment: [address] 626[address] 38Result Comment: [address] [place]., [address] 39Result Comment: [facility], [address] [place] [address]., [address] 40Result Comment: [address] 938[address] 41Result Comment: [address] 37625 42Result Comment: [address] 407[address] 43Result Comment: [address] 48903 44Result Comment: [address] 26814 45Result Comment: [address] 28569 46Result Comment: [address] 81398 47Result Comment: [address] 32738 48Result Comment: [address] 70514 49Result Comment: [address] 62506 50Result Comment: [address] 39363 51Result Comment: [address] 02050 52Result Comment: [address] 59363 53Result Comment: [address] 55879 54Result Comment: [address] 38137 55Result Comment: [address] 13521 56Result Comment: [address] [address] 57Result Comment: Interpretive Data Reference Interval Normal [...] Current interpretive data was last reviewed 2021. [address] 25937 58Result Comment: Interpretive Data Reference Interval Normal [...] Current interpretive data was last reviewed 2021. [address] 14329 59Result Comment: [address] 75084 60Result Comment: [address] 03070 61Result Comment: [address] 21533 62Result Comment: [address] 537[address] 63Result Comment: Interpretive Data Percent cell count reference ranges are not reported, since discordance with absolute values may lead to misinterpretation of CBC data. Current Interpretive Data was last revised on 2017. [address] [address] 64Result Comment: Interpretive Data Percent cell count reference ranges are not reported, since discordance with absolute values may lead to misinterpretation of CBC data. Current Interpretive Data was last revised on 2017. [facility], [address] [place] [address]., [address] 65Result Comment: Interpretive Data Percent cell count reference ranges are not reported, since discordance with absolute values may lead to misinterpretation of CBC data. Current Interpretive Data was last revised on 2017. 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 Treatment may include zrcj-bhc-grdayec or prescription medicines for pain and inflammation thatare taken by mouth or applied to the skin. Another treatment may include muscle relaxants. Take ywqe-jmd-dotxoxj and prescription medicines only as told by your health care provider. ??? Ask your health care provider if the medicine prescribed to you: ??? Requires you to avoid driving or using machinery. ??? Can cause constipation. You may need to take these actions to prevent or treat constipation: ??? Drink enough fluid to keep your urine pale yellow. ??? Take tgus-epe-hbxhmab or prescription medicines. ??? Eat foods that [...] and in-person support groups through: ??? The [place] Chronic Pain Association: theacpa.org ??? Pain Connection [...] provider. Document Revised: 10/09/2020 Document Reviewed: 06/17/2020 [employer] Patient Education ?? 2021 [employer]. 07/24/2024 09:06:58 Sleep Apnea, Ybun-gv-Xuuo Sleep Apnea Sleep apnea affects breathing during [...] ask your doctor. General instructions ??? Take ccyr-qsb-biakmil and prescription medicines only as told by [...] provider. Document Revised: 04/07/2022 Document Reviewed: 08/07/2021 [employer] Patient Education ?? 2021 [employer]. 07/24/2024 09:06:49 Sciatica, Oscn-cu-Zvca Sciatica Sciatica is pain, weakness, tingling, or [...] these instructions at home: Medicines ??? Take jntf-kup-wjgxjnn and prescription medicines only as told by your doctor. ??? Ask your doctor if the medicine prescribed to you: ??? Requires you to avoid driving or using heavy machinery. ??? Can cause trouble pooping (constipation). You may need to take these steps to prevent or treat trouble pooping: ??? Drink enough fluids to keep your pee (urine) pale yellow. ??? Take tsld-wpv-lnxepbe or prescription medicines. ??? Eat foods that [...] provider. Document Revised: 09/17/2019 Document Reviewed: 09/17/2019 [employer] Patient Education ?? 2021 [employer]. 07/24/2024 09:06:39 Preventing High Cholesterol Preventing High [...] for heart disease or stroke. ??? Take cdsq-jqs-sixqirm and prescription medicines only as told by [...] important. Where to find more information ??? [place] Heart Association: www.heart.org ??? National Heart, Lung, and Blood [place]: www.nhlbi.nih.gov Summary ??? High cholesterol increases your [...] provider. Document Revised: 11/02/2021 Document Reviewed: 11/02/2021 [employer] Patient Education ?? 2021 [employer] 07/24/2024 09:06:36 Food Choices for Gastroesophageal Reflux Disease, Adult, Rage-af-Vzga Food Choices for Gastroesophageal Reflux Disease, Adult [...] grapefruit, pineapple, and halima. Vegetables Deep-fried vegetables. Malay fries. Any vegetables prepared with added fat. [...] provider. Document Revised: 03/09/2021 Document Reviewed: 03/09/2021 [employer] Patient Education ?? 2021 [employer]. 07/24/2024 09:06:32 Preventing Hypertension Preventing Hypertension Hypertension, [...] take more than one medicine. ??? Take omkw-ded-fwtxmog and prescription medicines only as told by [...] provide support services and prevention programs. The [place] Heart Association offers an online support network at supportnetwork.heart.org Where to find more information Learn more about hypertension from: ??? National Heart, Lung, and Blood [place]: www.nhlbi.nih.gov ??? Centers for Disease Control and Prevention: www.cdc.gov ??? [place] Academy of Family Physicians: familydoctor.org Learn more about the DASH diet from: ??? National Heart, Lung, and Blood [place]: www.nhlbi.nih.gov Contact a health care provider if: [...] provider. Document Revised: 07/29/2020 Document Reviewed: 07/29/2020 [employer] Patient Education ?? 2021 [employer]. 07/24/2024 09:06:22 Diskitis Diskitis Diskitis is the [...] bath or a shower. Medicines ??? Take wndf-ekd-ghriysq and prescription medicines only as told by [...] keep your urine pale yellow. ??? Take quog-bzh-ksjvzrg or prescription medicines. ??? Eat foods that [...] provider. Document Revised: 03/04/2022 Document Reviewed: 03/04/2022 [employer] Patient Education ?? 2021 [employer]. 07/24/2024 09:06:18 Chronic Obstructive Pulmonary Disease Exacerbation, Tpht-ph-Rfya Chronic Obstructive Pulmonary Disease Exacerbation Chronic obstructive [...] these instructions at home: Medicines ??? Take bbpg-fxe-moptcad and prescription medicines only as told by [...] you cannotuse soap and water, use hand lacing cutter. This may help keep you from getting [...] away. Call your local emergency services (911 inthe [place] ??? Do not wait to see [...] provider. Document Revised: 07/22/2021 Document Reviewed: 07/07/2021 [employer] Patient Education ?? 2021 [employer]. 07/24/2024 09:06:09 Neuropathic Pain Neuropathic Pain Neuropathic [...] this treated? Treatment for neuropathic pain may slip box changer time. You may need to try different treatment options or a combination of treatments. Some options include: ??? Treating the underlying cause of the neuropathy, such as diabetes, kidney disease, or vitamin deficiencies. ??? Stopping medicines that can cause neuropathy, such as chemotherapy. ??? Medicine to relieve pain. Medicines may include: ??? Prescription or pxkh-syy-synravy pain medicine. ??? Anti-seizure medicine. ??? Antidepressant [...] these instructions at home: Medicines ??? Take fmtf-soq-ctenvwi and prescription medicines only as told by your health care provider. ??? Ask your health care provider if the medicine prescribed to you: ??? Requires you to avoid driving or using machinery. ??? Can cause constipation. You may need to take these actions to prevent or treat constipation: ??? Drink enough fluid to keep your urine pale yellow. ??? Take spfg-vct-nqjseoo or prescription medicines. ??? Eat foods that [...] the National Suicide Prevention Lifeline at or 870. This is open 24 hours aday. ??? Text the Crisis Text Line at 816704. Summary ??? Neuropathic pain is pain caused [...] provider. Document Revised: 04/26/2022 Document Reviewed: 04/26/2022 [employer] Patient Education ?? 2021 [employer] History and physical note * Brooke Slater [facility] REC HAND WASHER: PERFORM Event Display: History and Physical Authored Date: [id number] Nutrition and dietetics Progress note * Rick Renee RD: PERFORM Event Display: Dietary Progress Note Authored Date: [id number] I added one EnsureHP with BF to help patient meet protein needs. Electronically Signed on 07/11/2024 11:59 AM CDT Rick Renee RD Nurse Progress note * Suzy Land: PERFORM Event Display: Nursing Narrative Note Authored Date: [id number] Nurse Director Energy Fang notified family about covid outbreak. Will continue to monitor. Electronically Signed on 07/18/2024 01:59 PM TELEGRAPH INSPECTOR Suzy Land * Stacy Masters LPN: PERFORM Event Display: Progress Note-Nurse Authored Date: [id number] Patient is concerned about her kidneys she [...] declined. Electronically Signed on 07/15/2024 03:11 PM TELEGRAPH INSPECTOR Stacy Masters LPN Pharmacology Progress note * Sadi Warren Pharmacist: PERFORM Event Display: Pharmacy Progress Note Authored Date: [id number] Pharmacy Progress Note Based upon the information available at the time of the review, and assuming the accuracy and completeness of such information, it is my professional judgement that at such time, the resident???s medication regimen contained no new irregularities Electronically Signed on 07/11/2024 09:04 AM CDT Sadi Warren Pharmacist Note * Jessica Moreland MDS: PERFORM Event Display: Progress Note - MDS Authored Date: [id number] IDT reviewed resident???s current status and agrees that score match resident???s abilities and GG discharge goals are reasonable and measurable. See resident???s 5D for GG coding details. The information that was used to complete the MDS admission, 5day and D/C for this patient was gathered using SURVEILLANCE OPERATOR, nursing and physical therapy documentation. The care plan was not updates by MDS due to resident discharge before the 21st day Electronically Signed on 07/19/2024 10:02 PM TELEGRAPH INSPECTOR Jessica Moreland MDS * Mariaelena Cunningham: PERFORM Event Display: Wound Note* Authored Date: [id number] Secondary Skin Assessment completed. No areas of concern noted at this time. Education provided on skin hygiene and offloading pressure. Patient allowed this inspector automatic typewriter to float heels. Electronically Signed on 07/11/2024 11:21 AM CDT Mariaelena Cunningham Progress note * Brooke Slater [facility] REC HAND WASHER: PERFORM Event Display: Progress Note-Physician Authored Date: [id number] Respiratory therapy Hospital Progress note * Ksenia Ohara: PERFORM Event Display: Respiratory Therapy Progress Note Authored Date: [id number] Patient seen by RT, p/s she uses [...]
--- OUTSIDE RECORDS SUMMARY | 2024-09-07 05:21 | XMS_ITS | Encounter Summary ---
Author Organization [facility] Address [address] [place] [address]. [place], [place] [address] [place] [address] Care Team Providers Care Supervisor Residential Name Role Phone Tracy Olivares MD Primary Care Provider [phone] Nathan Baig MD Unavailable Reason for Visit * Reason Comments Lab (SCAN) Encounter Details Date Type Department Care Team (Latest Contact Info) Description 08/08/2024 Scan HEALTH INFO SRVCS Scanned, Doc Med [...] st Contact Info) Description 10/03/2024 11:00 AM RAMP AGENT Office Visit [facility] - [address] [place] [address] Nathan Baig MD [address] [place] [address] 11/14/2024 10:20 AM RAMP AGENT Office Visit [facility] - [place] [address] [address] [place] [address] Tracy Olivares MD [facility] [address] documented as of this encounter Procedures Procedure Name Priority Date/Time Associated Diagnosis Comments OUTSIDE LAB (SCAN ORDER) 08/08/2024 OUTSIDE LAB (SCAN ORDER) 08/08/2024 documented in this encounter Results * OUTSIDE LAB (SCAN ORDER) (08/08/2024) 08/08/2024 [facility] Scanned SCANNING Final Resu lt * OUTSIDE LAB (SCAN ORDER) (08/08/2024) 08/08/2024 [facility] Scanned SCANNING Final Resu lt documented in this encounter Visit Diagnoses Not on filedocumented in this encounter Additional Health Concerns Assessment Noted Time PHQ-9 Depression Total Score: 2 09/14/19 24 11:30 AM RAMP AGENT documented as of this encounter Care Teams Supervisor Residential Relationship Specialty Start Date End Date Tracy Olivares MD [address] [place] [address] PCP - General INTERNAL MEDICINE 01/02/21 Nathan Baig MD [address] [address] Consulting Physician Internal Medicine Pulmonary Disease 09/16/21 documented as of this encounter
--- OUTSIDE RECORDS SUMMARY | 2024-09-07 05:21 | XMS_ITS | Encounter Summary ---
Author Organization [facility] Address [address] [place] [address]. [place], [place] [address] [place] [address] Care Team Providers Care Core Drill Operator Helper Name Role Phone Tracy Olivares MD Primary Care Provider [phone] Nathan Baig MD Unavailable [phone] Reason for Visit * Reason Comments Lab (SCAN) Encounter Details Date Type Department Care Team (Latest Contact Info) Description 08/20/2024 Scan HEALTH INFO SRVCS Scanned, Doc Med [...] Contact Info) Description 10/03/2024 11:00 AM MARKETING GRAPHICS SPECIALIST Office Visit [facility] - [address] [place] [address] Nathan Baig MD [address] [place] [address] 11/14/2024 10:20 AM MARKETING GRAPHICS SPECIALIST Office Visit [facility] - [place] [address] [address] [place] [address] Tracy Olivares MD [address] [address] documented as of this encounter Procedures Procedure Name Priority Date/Time Associated Diagnosis Comments OUTSIDE LAB (SCAN ORDER) 08/20/2024 documented in this encounter Results * OUTSIDE LAB (SCAN ORDER) (08/20/2024) 08/20/2024 [facility] Scanned SCANNING Final Resu lt documented in this encounter Visit Diagnoses Not on filedocumented in this encounter Additional Health Concerns Assessment Noted Time PHQ-9 Depression Total Score: 2 09/14/19 24 11:30 AM MARKETING GRAPHICS SPECIALIST documented as of this encounter Care Teams Core Drill Operator Helper Relationship Specialty Start Date End Date Tracy Olivares MD [facility] [address] PCP - General INTERNAL MEDICINE 01/02/21 Nathan Baig MD [address] [address] Consulting Physician Internal Medicine Pulmonary Disease 09/16/21 documented as of this encounter
--- OUTSIDE RECORDS SUMMARY | 2024-09-07 05:21 | XMS_ITS | CONTINUITY OF CARE DOCUMENT ---
Author Name sony cardoza Address Unknown Organization [facility] Address [address] [facility] [address] [place] [address] Phone [phone] Care Team Providers Care Research Quality Assurance Specialist Name Role Phone KELLY HOFFMAN, CORNEL Unavailable [phone] CORNEL MENDOZA MD Unavailable [phone] INSURANCE PROVIDERS Payer name Policy type / Coverage type [place] [employer] republic[employer] Medicaid 1 [id number]
--- OUTSIDE RECORDS SUMMARY | 2024-09-07 05:22 | XMS_ITS | Encounter Summary ---
Author Organization [facility] Address [address] [place] [address]. [place] [id number] [place] [address] Care Team Providers Care Peoplesoft Crm Developer Name Role Phone Tracy Olivares MD Primary Care Provider [phone] Nathan Baig MD Unavailable [phone] Marisel Mancini RN Unavailable [phone] Reason for Visit * Reason Onset Date Comments TCM 07/10/2024 Encounter Details Date Type Department Care Team (Late st Contact Info) Description 07/10/2024 Telephone [facility] - [place] [address] [address] [place] [address] Tracy Olivares MD [address] [facility] [address] [place] [address] TCM Social History Tobacco Use Types Packs/Day Years [...] Progress Notes * Katharina Underwood MA - 07/11/2024 3:47 PM CDT Follow up call to patient post hospitalization Date of hospital discharge: 07/10/24 Patient discharged from: [facility] 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 Yes Appointment scheduled for follow up in the office: 07/23/24 @11:00 am * Katharina Underwood MA - 07/10/2024 3:23 PM CDT Pt called back but was in therapy and asked that we call her back tomorrow morning to run the TCM questions and make the f/u appt. documented in this encounter Plan of Treatment Upcoming Encounters Date Type Department Care Team (Late st Contact Info) Description 10/03/2024 11:00 AM BRASS SORTER Office Visit [facility] - [address] [address] Nathan Baig MD [address] [place] [address] 11/14/2024 10:20 AM BRASS SORTER Office Visit [facility] [place] [address] [address] [place] [address] Tracy Olivares MD [address] [place] [address] documented as of this encounter Visit Diagnoses Not on filedocumented in this encounter Additional Health Concerns Assessment Noted Time PHQ-9 Depression Total Score: 2 09/14/19 11:30 AM BRASS SORTER documented as of this encounter Care Teams Peoplesoft Crm Developer Relationship Specialty Start Date End Date Tracy Olivares MD [address] [place] [address] PCP - General INTERNAL MEDICINE 01/02/21 Nathan Baig MD [address] [address] Consulting Physician Internal Medicine Pulmonary Disease 09/16/21 Marisel Mancini, RN [address] [place], [place] [address] Audiovisual Lead Technician (Ambulatory) REGISTERED NURSE 06/28/24 08/07/24 documented as of this encounter
--- OUTSIDE RECORDS SUMMARY | 2024-09-07 05:22 | XMS_ITS | Encounter Summary ---
Author Organization [facility] Address [address] [place] [address]. [place], [place] [address] [place] [address] Care Team Providers Care Ultrasonic Tester Name Role Phone Tracy Olivares MD Primary Care Provider [phone] Nathan Baig MD Unavailable [phone] Marisel Mancini RN Unavailable [phone] Encounter Details Date Type Department Care Team (Latest Contact Info) Description 07/24/2024 Scan HEALTH INFO SRVCS Scanned, Doc Med [...] st Contact Info) Description 10/03/2024 11:00 AM RESIDENTIAL REMODELING SUBCONTRACTOR Office Visit [facility]ty [facility] - [address] [place] [address] Nathan Baig MD [address] [place] [address] 11/14/2024 10:20 AM RESIDENTIAL REMODELING SUBCONTRACTOR Office Visit [facility] Medical Group Multispecialty Care - [place] [address] [address] [place] [address] Tracy Olivares MD [address] [address] documented as of this encounter Visit Diagnoses Not on filedocumented in this encounter Additional Health Concerns Assessment Noted Time PHQ-9 Depression Total Score: 2 09/14/19 24 11:30 AM RESIDENTIAL REMODELING SUBCONTRACTOR documented as of this encounter Care Teams Ultrasonic Tester Relationship Specialty Start Date End Date Tracy Olivares MD [address] [place] [address] PCP - General INTERNAL MEDICINE 01/02/21 Nathan Baig MD [address] [id number] Consulting Physician Internal Medicine Pulmonary Disease 09/16/21 Marisel Mancini, RN [address] [place] [address] Diesel Locomotive Firer/Fireman (Ambulatory) REGISTERED NURSE 06/28/24 08/07/24 documented as of this encounter
--- OUTSIDE RECORDS SUMMARY | 2024-09-07 05:22 | XMS_ITS | Encounter Summary ---
Author Organization [facility] Address [address] [place] [address]. [place], [place] [address] [place] [address] Care Team Providers Care Art History Instructor Name Role Phone Tracy Olivares MD Primary Care Provider [phone] Nathan Baig MD Unavailable [phone] Encounter Details Date Type Department Care Team (Latest Contact Info) Description 03/23/2024 Travel Social History Tobacco Use Types Packs/Day [...] st Contact Info) Description 10/03/2024 11:00 AM GEOGRAPHIC INFORMATION SYSTEMS DIRECTOR Office Visit [facility] Medical Group Pulmonology Specialty Clinic - [place] [address] [address] [facility] [address] [place] [address] Nathan Baig MD [address] [place] [address] 11/14/2024 10:20 AM GEOGRAPHIC INFORMATION SYSTEMS DIRECTOR Office Visit [facility] Medical Group Multispecialty Care - [place] [address] [address] [facility] [address] [place] [address] Tracy Olivares MD 1188 [facility] 157 [place] [address] documented as of this encounter Visit Diagnoses Not on filedocumented in this encounter Additional Health Concerns Assessment Noted Time PHQ-9 Depression Total Score: 2 09/14/19 24 11:30 AM GEOGRAPHIC INFORMATION SYSTEMS DIRECTOR documented as of this encounter Care Teams Art History Instructor Relationship Specialty Start Date End Date Tracy Olivares MD 1188 [facility] 157 [place] [address] PCP - General INTERNAL MEDICINE 01/02/21 Nathan Baig MD [address] [address] Consulting Physician Internal Medicine Pulmonary Disease 09/16/21 documented as of this encounter
--- OUTSIDE RECORDS SUMMARY | 2024-09-07 05:22 | XMS_ITS | Encounter Summary ---
Author Organization [facility] - [facility] Address [address] [place] [address]. [place], [place] [address] [place] [address] Care Team Providers Care Registered Nurse Renal Name Role Phone Tracy Olivares MD Primary Care Provider [phone] Nathan Baig MD Unavailable [phone] Marisel Mancini RN Unavailable [phone] Reason for Visit * Reason Onset Date Comments Appointment Request 07/27/2024 Medication 07/27/2024 Encounter Details Date Type Department Care Team (Late st Contact Info) Description 07/27/2024 Telephone [facility] Medical Group Multispecialty Care - [place] [address] [address] [place] [address] [place] [address] [place] [address] 157 [place] [address] Appointment Request; Medication Social History Tobacco Use Types Packs/Day Years [...] encounter Progress Notes * Lester Huffman - 07/27/2024 10:03 AM CST I LVM with pt to call the office for a hospital TCM Visit, I'm in the process of trying to move another pt so that we can get Ms Allison in soon as possible, she now has a Free Style Lite and is needing Lancets and she has no test strips to check sugars. So right now I am waiting to hear from pt and the pt I am trying to move from another date. RVISOR VACUUM METALIZING documented in this encounter Plan of Treatment Upcoming Encounters Date Type Department Care Team (Late st Contact Info) Description 10/03/2024 11:00 AM SUPERVISOR VACUUM METALIZING Office Visit [facility] Medical [facility] Pulmonology Specialty Clinic - [address] [address] Nathan Baig MD [address] [address] 11/14/2024 10:20 AM SUPERVISOR VACUUM METALIZING Office Visit [facility] Multispecialty Care - [place] [address] [address] [place] [address] Tracy Olivares MD [address] [place] [address] documented as of this encounter Visit Diagnoses Not on filedocumented in this encounter Additional Health Concerns Assessment Noted Time PHQ-9 Depression Total Score: 2 09/14/19 24 11:30 AM SUPERVISOR VACUUM METALIZING documented as of this encounter Care Teams Registered Nurse Renal Relationship Specialty Start Date End Date Tracy Olivares MD [address] [place] [address] PCP - General INTERNAL MEDICINE 01/02/21 Nathan Baig MD [address] [address] Consulting Physician Internal Medicine Pulmonary Disease 09/16/21 Marisel Mancini, RN [address] [place] [address] Supervisor Dials (Ambulatory) REGISTERED NURSE 06/28/24 08/07/24 documented as of this encounter
--- OUTSIDE RECORDS SUMMARY | 2024-09-07 05:22 | XMS_ITS | Encounter Summary ---
Author Organization [facility] - [facility] Address [address] [place] [address]. [place] [address] [place] [address] Care Team Providers Care Manager Surgical Name Role Phone Tracy Olivares MD Primary Care Provider [phone] Nathan Baig MD Unavailable [phone] Marisel Mancini RN Unavailable [phone] Reason for Visit * Reason Onset Date Comments Hospital Follow Up 07/11/2024 Call to [facility]. Encounter Details Date Type Department Care Team (Latest Contact Info) Description 07/11/2024 Patient Outreach [facility] Medical Group Multispecialty Care - [address] [place] [address] Marisel Mancini, RN [address] [place] [address] Hospital Follow Up (Call to [facility]. ) Social History Tobacco Use Types Packs/Day Years [...] Progress Notes * Marisel Mancini RN - 07/11/2024 8:29 AM CDT 07/11/24: CC called [facility]. Patient was admitted there on 07/10/24 for Rehab. CC lefta for Shayy Ngo, the kitchen assistant and asked for a copy of patient's medlist to review. Medlist rec'd and updated. 1022am- CC called [facility] and asked to talk to the nurse, but the nurse never answered. CC called back and briefly spoke to someone and explained there were some med discrepancies that needed reported. She said she was in a meeting and transferred CC to someone else. The DON answered and CC told her that the senna and the famotidine were both to be PRN. She said she will have their doctor look at it and if they want to make that change, they can and then hung up on CC. documented in this encounter Plan of Treatment Upcoming Encounters Date Type Department Care Team (Late st Contact Info) Description 10/03/2024 11:00 AM TOURISM RADIO PRESENTER Office Visit [facility] Medical Group Pulmonology Specialty Clinic - [address] [address] Nathan Baig MD [address] [place] [address] 11/14/2024 10:20 AM TOURISM RADIO PRESENTER Office Visit [facility] Medical Group Multispecialty Care - [place] [address] [address] [place] [address] Tracy Olivares MD [address] [place] [address] documented as of this encounter Visit Diagnoses Not on filedocumented in this encounter Additional Health Concerns Assessment Noted Time PHQ-9 Depression Total Score: 2 01/03/20 24 11:30 AM TOURISM RADIO PRESENTER documented as of this encounter Care Teams Manager Surgical Relationship Specialty Start Date End Date Tracy Olivares MD 1188 [facility] 157 [place] [address] PCP - General INTERNAL MEDICINE 01/02/21 Nathan Baig MD [address] [phone] Consulting Physician Internal Medicine Pulmonary Disease 09/16/21 Marisel Mancini, RN [address] [place] [address] United [place] Attorney (Ambulatory) REGISTERED NURSE 06/28/24 08/07/24 documented as of this encounter
--- OUTSIDE RECORDS SUMMARY | 2024-09-07 05:22 | XMS_ITS | Encounter Summary ---
Author Organization [facility] Address [address] [place] [address]. [place], [place] [address] [place] [address] Care Team Providers Care Business And Marketing Teacher Name Role Phone Tracy Olivares MD Primary Care Provider [phone] Nathan Baig MD Unavailable [phone] Encounter Details Date Type Department Care Team (Late st Contact Info) Description 05/01/2024 Therapy Plan [facility] Physical Therapy [address] [facility] [address] [place] [address] Ly Collado, PT [place], [place] [id number] Social History Tobacco Use Types Packs/Day Years [...] as of this encounter Progress Notes * Ly Collado, PT - 05/01/2024 4:22 PM CDT PHYSICAL THERAPY DISCHARGE NOTE Keegan Amaya 1955 Dx: shoulder and hip pain 08/20/24 This patient was last seen in the clinic on 03/16/24. The patient attended 6 visits. Patient did not return for further visits. Please refer to last visit note for final status. DC from OPPT at this time. Ly Collado, PT 4:23 PM documented in this encounter Plan of Treatment Upcoming Encounters Date Type Department Care Team (Late st Contact Info) Description 10/03/2024 11:00 AM PODOPEDIATRICIAN Office Visit [facility] Medical [facility] Pulmonology Specialty Clinic - [address] [address] Nathan Baig MD [address] [address] 11/14/2024 10:20 AM PODOPEDIATRICIAN Office Visit [facility] Multispecialty Care - [place] [address] [address] [place] [address] Tracy Olivares MD [address] [place] [address] documented as of this encounter Visit Diagnoses Not on filedocumented in this encounter Additional Health Concerns Assessment Noted Time PHQ-9 Depression Total Score: 2 09/14/19 24 11:30 AM PODOPEDIATRICIAN documented as of this encounter Care Teams Business And Marketing Teacher Relationship Specialty Start Date End Date Tracy Olivares MD [address] [place] [address] PCP - General INTERNAL MEDICINE 01/02/21 Nathan Baig MD [address] [address] Consulting Physician Internal Medicine Pulmonary Disease 09/16/21 documented as of this encounter
--- OUTSIDE RECORDS SUMMARY | 2024-09-07 05:22 | XMS_ITS | Encounter Summary ---
Author Organization [facility] Address [address] [place] [address]. [place] [address] [place] [address] Care Team Providers Care Larriman Helper Name Role Phone Tracy Olivares MD Primary Care Provider [phone] Nathan Baig MD Unavailable [phone] Marisel Mancini RN Unavailable [phone] Reason for Visit * Reason Onset Date Comments Hospital Follow Up 06/28/[address] [facility]. Encounter Details Date Type Department Care Team (Latest Contact Info) Description 06/28/2024 Patient Outreach [facility] Medical Group Multispecialty Care - [address] [place] [address] Marisel Mancini, RN [address] [place] [address] Hospital Follow Up (Call to [facility]. ) Social History Tobacco Use Types Packs/Day [...] Progress Notes * Marisel Mancini RN - 06/28/2024 11:31 AM CDT 06/28/24: CC called [facility] and spoke with nurse, Amara. Patient is in room #2372 on the ortho floor. She is not by a computer to give CC the admitting DX and she is unsure how to turn on the Care Everywhere for this patient. She will call CC back with admitting dx shortly. No return call. [facility] fax lists dx as discitis of lumbar region. documented in this encounter Plan of Treatment Upcoming Encounters Date Type Department Care Team (Late st Contact Info) Description 10/03/2024 11:00 AM CIVILIAN JAIL OFFICER Office Visit [facility] Medical Group Pulmonology Specialty Clinic - [address] [address] Nathan Baig MD [address] [address] 11/14/2024 10:20 AM CIVILIAN JAIL OFFICER Office Visit [facility] Multispecialty Care - [place] [address] [address] [place] [address] Tracy Olivares MD [address] [place] [address] documented as of this encounter Visit Diagnoses Not on filedocumented in this encounter Additional Health Concerns Assessment Noted Time PHQ-9 Depression Total Score: 2 09/14/19 24 11:30 AM CIVILIAN JAIL OFFICER documented as of this encounter Care Teams Larriman Helper Relationship Specialty Start Date End Date Tracy Olivares MD [address] [place] [address] PCP - General INTERNAL MEDICINE 01/02/21 Nathan Baig MD 3 [facility] [address] [place] [address] Consulting Physician Internal Medicine Pulmonary Disease 09/16/21 Marisel Mancini, RN [address] [place] [address] Semiconductor Wafers Etcher Stripper (Ambulatory) REGISTERED NURSE 06/28/24 08/07/24 documented as of this encounter
--- OUTSIDE RECORDS SUMMARY | 2024-09-07 05:22 | XMS_ITS | Encounter Summary ---
Author Organization [facility] Address [address] [place] [address]. [place], [place] [address] [place] [address] Care Team Providers Care Rust Proofer Name Role Phone Tracy Olivares MD Primary Care Provider [phone] Nathan Baig MD Unavailable [phone] Reason for Visit * Reason Onset Date Comments Information 06/04/2024 Encounter Details Date Type Department Care Team (Late st Contact Info) Description 06/04/2024 Telephone [facility] Medical Group Multispecialty Care - [place] [address] [address] [place] [address] [place] [address] [place] [address] 157 [place] [address] Information Social History Tobacco Use [...] as of this encounter Progress Notes * Keri Rosario NP - 06/06/2024 4:35 PM CDTAddended by: KERI ROSARIO on: 06/06/2024 04:35 PM Modules accepted: Orders * Keri Rosario NP - 06/06/2024 4:34 PM CDT [facility] sensor she would wear we can order that but her sugars are controlled I'mnot sure if she would want to switch to this. documented in this encounter Plan of Treatment Upcoming Encounters Date Type Department Care Team (Late st Contact Info) Description 10/03/2024 11:00 AM CERTIFIED MEDICAL RECORDS CODER Office Visit [facility] Medical Group Pulmonology Specialty Clinic - [address] [address] Nathan Baig MD [address] [id number] 11/14/2024 10:20 AM CERTIFIED MEDICAL RECORDS CODER Office Visit [facility] Multispecialty Care - [place] [address] [address] [place] [address] Tracy Olivares MD [address] [place] [address] documented as of this encounter Visit Diagnoses Diagnosis Type 2 diabetes mellitus with hyperglycemia, without long-term current use of insulin ([facility])- Primary documented in this encounter Additional Health Concerns Assessment Noted Time PHQ-9 Depression Total Score: 2 09/14/19 24 11:30 AM CERTIFIED MEDICAL RECORDS CODER documented as of this encounter Care Teams Rust Proofer Relationship Specialty Start Date End Date Tracy Olivares MD [address] [place] [address] PCP - General INTERNAL MEDICINE 01/02/21 Nathan Baig MD 3 [facility] [address] [place] [address] Consulting Physician Internal Medicine Pulmonary Disease 09/16/21 documented as of this encounter
--- OUTSIDE RECORDS SUMMARY | 2024-09-07 05:22 | XMS_ITS | Encounter Summary ---
Author Organization [facility] Address [address] [place] [address]. [place], [place] [address] [place] [address] Care Team Providers Care Membership Counselor Name Role Phone Tracy Olivares MD Primary Care Provider [phone] Nathan Baig MD Unavailable [phone] Reason for Referral * Procedure (Routine) - Pending Review Specialty Diagnoses / Procedures Referred By Contac t Referred To Contact Diagnoses Moderate persistent asthma without complication (HHS/HCC) Procedures Complete PFT (pre/post Tim, Lung Vol, Diff Capacity) (45070, 08853, 26396, 11084) Complete PFT (pre/post [facility] [place], Lung Vol, Diff Capacity) (00793, 30265, 65570, 46388) Nathan Baig MD [address] [place] [address] Phone: tel: fax: Referral ID Status Reason Start Date Expiration Date V isits Requested Visits Authorized [id number] Pending Review 03/23/2024 03/23/2025 1 1 Reason for Visit * Reason Comments Obstructive Sleep Apnea Encounter Details Date Type Department Care Team (Late st Contact Info) Description 03/23/2024 11:00 AM CDT Office Visit [facility] - [address] [place] [address] Nathan Baig MD [address] [place] [address] Obstructive Sleep Apnea Social History Tobacco Use Types Packs/Day Years [...] Pulse 66 03/23/2024 10:43 AM CDT Temperature - - Respiratory Rate 16 03/23/2024 10:43 AM CDT Oxygen Saturation 100% 03/23/2024 10:43 AM CDT Inhaled Oxygen Concentration - - Weight 125.6 kg (277 lb) 03/23/2024 10:43 AM CDT Height 157.5 cm (5' 2 ) 03/23/2024 10:43 AM CDT Body Mass Index 50.66 03/23/2024 10:43 AM CDT documented in this encounter Patient Instructions * Patient Instructions* Nathan Baig MD - 03/23/2024 11:00 AM CDT Continue Trelegy 1 puff daily. Rinse and spit after use Albuterol can use as needed Start using your CPAP every single night Do not use tap water in the CPAP machine, if you use water it has to be distilled water Work on weight loss Follow-up with me 6 months documented in this encounter Progress Notes * Nathan Baig MD - 03/23/2024 11:00 AM CDT [facility] PULMONARY MEDICINE History Chief Complaint Patient presents with Obstructive Sleep Apnea Referring provider: No ref. provider found 03/23/2024 OV: Progress her CPAP, she is only using it about half of the time. States that she sometimes has issue with water. Notes that she uses tap water. No issues from an asthma standpoint. Rare use of albuterol. Using Trelegy daily. Had 2 courses of prednisone but this was for shoulder pain, not for respiratory issues. 09/23/2023 OV: She is trying to use her CPAP more, feels like she is less tired during the day when she uses it. Biggest issue is that it feels like it dries her up. Trelegy continues to be beneficial. 10/29/2022 OV: She did stop using her CPAP for the past 2 months. She says that when she uses it shefeels like her nose becomes runny and congested. She has not tried adjusting the humidity settings on the machine. Using her Trelegy nightly, may use her rescue inhaler once every 3 months. No exacerbations of underlying asthma. 04/23/2022 OV: She is doing well. Rarely using her rescue albuterol inhaler. Continues to find Trelegy very helpful. She has been having some issues with her sinuses which has made it difficult to useher CPAP at times. Asking to try different mask, she is having some pain around her temples with her current mask. 10/23/2019 OV: Overall, she says she is doing well. She is been doing physical therapy for her legs and this is improved her stamina and ability to walk more. She is able to walk further than she was last time. She tells me that the therapist also gave her some breathing exercises that seem to help.Continues on Trelegy. He rarely using albuterol. Has not required steroids or antibiotics for respiratory issues. Has not been to the emergency department for respiratory issues. Continues to use herCPAP without significant issue. 05/22/2021 OV: Keegan Amaya is a 68-year-old female with a past medical history of reported COPD, obstructive sleep apnea on CPAP, hypertension, GERD who is referred to pulmonary clinic for evaluation of obstructive sleep apnea and COPD. She is sent for evaluation of obstructive sleep apnea. She was diagnosed approximately 1 year ago. Since that time she has been on CPAP. She does find it beneficial. She was tested because she was noticing she would be gasping for air in the middle the night. She typically goes to bed between 8:30 PM and 9 PM. She wakes up for the day around 5 in the morning. She usually wakes up around 3 times to use the restroom. She feels that the CPAP has been beneficial. She is tried several different masks, feels that this nasal pillows are the best for her. With regards to prior diagnosis of COPD, she says it was diagnosed about 1 year ago. Sounds like she has not had pulmonary function testing, however. She is on Trelegy, this does help her respiratorysymptoms. Previously she was having some issues with shortness of breath and coughing. She is now not really having any shortness of breath. She can only walk 1-2 blocks but it is her legs to stop her more than her breathing. Rarely coughs and occasionally brings up maybe a teaspoonful of sputum. She does have a lot of sinus issues, follows with allergy and takes Zyrtec. Former smoker, quit 37 years ago. She smoked 1.5 packs/day between 25 and 30 years. 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 No pets at home. Past Medical History: Diagnosis Date Anxiety Cataract Chronic low back pain COPD (chronic obstructive pulmonary disease) ([facility]) Depression Diabetes mellitus ([facility]) GERD (gastroesophageal reflux disease) Glaucoma Hearing loss left ear Hypertension Impaired glucose tolerance Obese FAISAL on CPAP Shoulder pain Sleep apnea Past Surgical History: Procedure Laterality Date CHOLECYSTECTOMY HAND SURGERY both hands HYSTERECTOMY Social History Tobacco Use Smoking status: Former Current packs/day: 1.50 Types: Cigarettes Smokeless tobacco: Never Tobacco comments: Counseled by Dr. Olivares. Vaping Use Vaping status: Never Used Substance Use Topics Alcohol use: Not Currently Drug use: Not Currently Family History Problem Relation Name Age of Onset Diabetes Mother Cancer Father prostate, lymph node Prostate Cancer Father Hyperlipidemia Sister Hypertension Sister Other (diabetes) Sister Other (stomach issues) Brother Other (diverticular) Brother Diabetes Maternal Grandmother Diabetes Paternal Grandmother Glaucoma Paternal Grandmother Current Outpatient Medications Medication Sig Dispense Refill albuterol sulfate HFA 108 (90 Base) MCG/ACT inhaler Inhale 2 puffs into the lungs every 4 (four) hours as needed. 18 g 5 aspirin 81 MG tablet Take 1 tablet (81 mg total) by mouth daily. atorvastatin (LIPITOR) 20 MG tablet Take 1 tablet (20 mg total) by mouth nightly at bedtime. at bedtime 90 tablet 1 cetirizine (ZYRTEC) 10 MG tablet Take 1 tablet (10 mg total) by mouth daily. 90 tablet 3 diphenhydrAMINE-zinc (BENADRYL EXTRA STRENGTH) 2-0.1 % Cream cream Use twice daily on skin to help with itching. 28 g 1 empagliflozin (JARDIANCE) 10 MG tablet Take 1 tablet (10 mg total) by mouth daily. 90 tablet 1 esomeprazole (NEXIUM) 40 MG capsule Take 1 capsule (40 mg total) by mouth every morning before breakfast. 90 capsule 1 famotidine (PEPCID) 20 MG tablet Take one tablet two times daily as needed for heart burn. 180 tablet 1 fluticasone propionate (FLONASE) 50 MCG/ACT nasal spray 2 sprays by Nasal route daily. 16 g 5 Wlftwcdnjdf-Dmrfefdmq-Ezgqci (TRELEGY ELLIPTA) 100-62.5-25 MCG/ACT AEROSOL POWDER, BREATH ACTIVATEDInhale 1 puff into the lungs daily. 180 each 3 gabapentin (NEURONTIN) 300 MG capsule Take 1 capsule (300 mg total) by mouth 2 (two) times a day. 180 capsule 1 HYDROcodone-acetaminophen (NORCO) 7.5-325 MG tablet Take 1 tablet by mouth 2 (two) times daily as needed for Pain. Indications: Chronic Pain 60 tablet 0 hydrocortisone (PREPARATION H) 1 % rectal cream Place rectally 2 (two) times daily for 14 days. 26 g 3 losartan-hydroCHLOROthiazide (HYZAAR) 100-12.5 MG tablet Take 1 tablet by mouth daily. 90 tablet 3 meclizine 12.5 MG tablet Take 1 tablet (12.5 mg total) by mouth nightly as needed. 20 tablet 0 meloxicam (MOBIC) 15 MG tablet Take 1 tablet (15 mg total) by mouth daily as needed. Has tolerated meloxicam 90 tablet 1 mirabegron ER (MYRBETRIQ) 25 MG 24 hr tablet Take 1 tablet (25 mg total) by mouth daily. 30 tablet 2 ONETOUCH VERIO test strip AZELASTINE 137 MCG/SPRAY nasal spray Please specify directions, refills and quantity (Patient not taking: Reported on 03/23/2024) 30 mL 0 No current facility-administered medications for this visit. Review of patient's allergies indicates: Allergen Reactions Celebrex [Celecoxib] Itching Propoxyphene Unknown Immunization History Administered Date(s) Administered Flucelvax 6 Months+ (Prefilled Syringe) 06/05/2019 Fluzone High Dose - >Age 65 (Prefilled Syringe) 06/08/2021, 06/16/2022, 06/08/2023 Influenza 06/12/2013, 06/07/2014 Influenza Adult (Generic) 06/12/2013, 06/07/2014, 06/10/2015, 05/17/2016, 05/20/2017, 06/05/2018, 05/28/2020, 07/01/2020, 06/08/2023 PFIZER COVID-19 (12+) MRNA, LNP-S, PF, ERIK-SUCROSE, 30 MCG/0.3 ML (COMIRNATY 2022) 06/08/2023 PFIZER COVID-19 ([place] CAP), MRNA, LNP-S, PF, 30 MCG/0.3 ML ERIK-SUCROSE, IM 04/28/2022 PFIZER COVID-19 (ORIGINAL FORMULATION, PURPLE CAP) mRNA, LNP-S, PF, 30 MCG/0.3 ML DOSE 12/09/2020, 12/30/2020, 06/08/2023 Pneumococcal (Pneumovax 23) 05/01/2016, 05/17/2016, 03/03/2021 Pneumococcal (Prevnar 13) 04/02/2022 Tdap (Adacel) 07/06/2021 Review of Systems Constitutional: Negative for chills, fever and weight loss. HENT: Negative for ear pain, hearing loss and nosebleeds. Eyes: Negative for blurred vision, double vision and redness. Respiratory: Negative for cough, hemoptysis, sputum production, shortness of breath and wheezing. Cardiovascular: Negative for chest pain, palpitations, orthopnea, leg swelling and PND. Gastrointestinal: Negative for heartburn, nausea and vomiting. Genitourinary: Negative for dysuria, frequency and urgency. Musculoskeletal: Negative for myalgias. Skin: Negative for rash. Neurological: Negative for dizziness, tingling and headaches. Endo/Heme/Allergies: Does not bruise/bleed easily. Psychiatric/Behavioral: Negative for depression and suicidal ideas. The patient is not nervous/anxious. Physical Exam Filed Vitals: 03/23/24 1043 BP: (!) 140/84 Pulse: 66 Resp: 16 SpO2: 100% Weight: 125.6 kg (277 lb) Height: 1.575 m (5' 2 ) Body mass index is 50.66 kg/m??. Physical Exam: General: Alert, pleasant, in NAD Neuro: Alert, appropriate Psych: Affect normal Head: NC, AT EENT: No Sinus tenderness to palpation, mallampati 4 Neck: Supple Lymph: No appreciable cervical lymphadenopathy Respiratory: Normal bilateral breath sounds unchanged. Cardiovascular: s1,s2, rrr, no audible murmur GI: non-distended, bs+ Musc: Bilateral wrist ROM wnl Ext: no edema, no clubbing Skin: No visible rashes, No visible tattoos PFT 03/17/2022 Prebronchodilator FEV1 1.75 L, 90%. FVC 2.16 L, 88%. FEV1/FVC ratio 81%. Postbronchodilator FEV1 1.78 L, 92%. FVC 2.20 L, 90%. FEV1/FVC ratio 81%. TLC 3.54 L, 82%. RV 1.38 L, 72%. Unadjusted DLCO 80% Sleep study 01/31/2020 diagnostic polysomnography AHI 13.5/h 02/18/2020 CPAP titration 9 cmH2O is optimal Pertinent Labs 05/20/2022 region 8 allergy panel positive for dust mites, cockroach, cat. IgE 136 CPAP compliance 05/22/2021 Reviewed 73% use over the last 90 days. Average time 4 hours and 56 minutes. Set pressure9 cm H2O. AHI 1.9/h 10/23/2021 reviewed. 89% use over the last 90 days. Average time 5 hours and 50 minutes. Pressure set at 9 cm H2O. AHI 0.4/h. 04/23/2022 reviewed. 72% use over the last 90 days. Average time 5 hours and 55 minutes. Pressure set at 9 cm H2O. AHI 0.5/h. 10/29/2022 reviewed. 21% use over the last 90 days but average time 3 hours and 30 minutes. Pressureset at 9 cm H2O. AHI 0.2/h 03/23/2024 reviewed. 53% use over the last 30 days but average time 4 hours and 16 minutes. Pressureset at 9 cm H2O. AHI 0.4/h Assessment Mild obstructive sleep apnea on CPAP Mild to moderate persistent asthma Tobacco use history Obesity Hypertension Plan - She would benefit greatly from use of her CPAP more consistently, advised use, continue current settings at 9 cm H2O -Change of the mask and straps, tubing every 3 to 6 months -Use distilled water, advised turning the humidity up to help with the dryness advised strongly against use of tap water - Continue Trelegy 100 mcg 1 puff daily. Rinse gargle and spit after use. - Albuterol can use as needed. -Advised weight loss Return in about 6 months (around 09/23/2024). Nathan Baig MD documented in this encounter Plan of Treatment Upcoming Encounters Date Type Department Care Team (Late st Contact Info) Description 10/03/2024 11:00 AM DISPATCHER SHIP PILOT Office Visit [facility] Pulmonology Specialty Clinic - [address] [address] Nathan Baig MD [address] [place] [address] 11/14/2024 10:20 AM DISPATCHER SHIP PILOT Office Visit [facility] Medical [facility] Multispecialty Care - [place] [address] [address] [place] [address] Tracy Olivares MD [address] [place] [address] documented as of this encounter Procedures Procedure Name Priority Date/Time Associated Diagnosis Comments PULMONARY FUNCTION TEST Routine 04/25/2024 12:00 AM CDT Moderate persistent asthma without complication (HHS/HCC) documented in this encounter Results * Complete PFT (pre/post [facility] [place], Lung Vol, Diff Capacity) (99330, 06096, 42808, 43148) (04/25/2024 12:00 AM CDT) 04/25/2024 us Nathan Baig MD PFT ORDERABLES Final Result [facility] documented in this encounter Visit Diagnoses Diagnosis FAISAL on CPAP- Primary Obstructive sleep apnea (adult) (pediatric) Moderate persistent asthma without complication ([facility]) Unspecified asthma Class 3 severe obesity due to excess calories without serious comorbidity with body mass index (BMI) of 50.0 to 59.9 in adult ([facility]) Seasonal allergies Allergic rhinitis, cause unspecified Nicotine dependence, cigarettes, in remission documented in this encounter Additional Health Concerns Assessment Noted Time PHQ-9 Depression Total Score: 2 09/14/19 24 11:30 AM DISPATCHER SHIP PILOT documented as of this encounter Care Teams Membership Counselor Relationship Specialty Start Date End Date Tracy Olivares MD [address] [facility] [address] [place] [address] PCP - General INTERNAL MEDICINE 01/02/21 Nathan Baig MD [address] [address] Consulting Physician Internal Medicine Pulmonary Disease 09/16/21 documented as of this encounter
--- OUTSIDE RECORDS SUMMARY | 2024-09-07 05:22 | XMS_ITS | Encounter Summary ---
Author Organization [facility] Address [address] [place] [address]. [place] [id number] [place] [address] Care Team Providers Care Runner Man Name Role Phone Tracy Oliavres MD Primary Care Provider [phone] Nathan Baig MD Unavailable [phone] Marisel Mancini RN Unavailable [phone] Reason for Visit * Reason Onset Date Comments Information 08/06/2024 Encounter Details Date Type Department Care Team (Late st Contact Info) Description 08/06/2024 Telephone [facility] Medical Group Multispecialty Care - [place] [address] [address] [place] [address] Tracy Olivares MD [address] [facility] [address] [place] [address] Information Social History Tobacco Use [...] encounter Progress Notes * Lester Huffman - 08/06/2024 1:39 PM CST Pt has a TCM Virtual Visit 08/07/24, I reached out to the [facility] in [place], and left a message, on message there is a Shayy or Lorenda with Ophthalmology Surgical Technician on voice mail, I left a detailed voice message stating we need office notes from her Rehab stay faxed over. [phone] Ext [phone] LING MACHINE OPERATOR documented in this encounter Plan of Treatment Upcoming Encounters Date Type Department Care Team (Late st Contact Info) Description 10/03/2024 11:00 AM SPOOLING MACHINE OPERATOR Office Visit [facility] Medical [facility] Pulmonology Specialty Clinic - [address] [address] Nathan Baig MD [address] [address] 11/14/2024 10:20 AM SPOOLING MACHINE OPERATOR Office Visit [facility] Multispecialty Care - [place] [address] [address] [place] [address] [place] [address] [place] [address] documented as of this encounter Visit Diagnoses Not on filedocumented in this encounter Additional Health Concerns Assessment Noted Time PHQ-9 Depression Total Score: 2 09/14/19 24 11:30 AM SPOOLING MACHINE OPERATOR documented as of this encounter Care Teams Runner Man Relationship Specialty Start Date End Date Tracy Olivares MD [address] [place] [address] PCP - General INTERNAL MEDICINE 01/02/21 Nathan Baig MD 3 [facility] [place] [address] [place] [address] Consulting Physician Internal Medicine Pulmonary Disease 09/16/21 Marisel Mancini RN [address] [place] [address] Satellite Project Site Monitor (Ambulatory) REGISTERED NURSE 06/28/24 08/07/24 documented as of this encounter
--- OUTSIDE RECORDS SUMMARY | 2024-09-07 05:22 | XMS_ITS | Encounter Summary ---
Author Organization [facility] Address [address] [place] [address]. [place] [id number] [place] [address] Care Team Providers Care Counter Supervisor Name Role Phone Tracy Olivares MD Primary Care Provider [phone] Nathan Baig MD Unavailable [phone] Reason for Visit * Reason Comments Allied Health Visit Pt is here for lab w ork Encounter Details Date Type Department Care Team (Latest Contact Info) Description 03/23/2024 10:30 AM CDT Allied Health/Nurse Visit [facility] Multispecialty Care - [place] [address] [address] [place] [address] [place] [address] [place] [address] [address] [place], [place] [id number] Allied Health Visit (Pt is here for lab work) Social History Tobacco Use Types Packs/Day Years [...] Progress Notes * Ilana Ochoa MA - 03/23/2024 10:30 AM CDT Pt is here for lab work documented in this encounter Plan of Treatment Upcoming Encounters Date Type Department Care Team (Late st Contact Info) Description 10/03/2024 11:00 AM LINEN WORKER Office Visit [facility]ty Clinic - [address] [address] Nathan Baig MD 3 [facility] [address] [place] [address] 11/14/2024 10:20 AM LINEN WORKER Office Visit [facility] Multispecialty Care - [place] [address] [address] [place] [address] Tracy Olivares MD [address] [place] [address] documented as of this encounter Procedures Procedure Name Priority Date/Time Associated Diagnosis Comments VENIPUNC ARM DRAW Routine 03/23/2024 10:32 AM CDT Annual physical exam documented in this encounter Visit Diagnoses Diagnosis Annual physical exam- Primary Routine general medical examination at a health care facility documented in this encounter Additional Health Concerns Assessment Noted Time PHQ-9 Depression Total Score: 2 09/14/19 24 11:30 AM LINEN WORKER documented as of this encounter Care Teams Counter Supervisor Relationship Specialty Start Date End Date Tracy Olivares MD [address] [place] [address] PCP - General INTERNAL MEDICINE 01/02/21 Nathan Baig MD 3 [facility] [address] [place] [address] Consulting Physician Internal Medicine Pulmonary Disease 09/16/21 documented as of this encounter
--- OUTSIDE RECORDS SUMMARY | 2024-09-07 05:22 | XMS_ITS | Encounter Summary ---
Author Organization [facility] Address [address] [place] [address]. [place] [id number] [place] [address] Care Team Providers Care Health Assessment And Treatment Teacher Name Role Phone Tracy Olivares MD Primary Care Provider [phone] Nathan Baig MD Unavailable [phone] Reason for Visit * Reason Onset Date Comments Quality Gap Closure 05/16/2024 Encounter Details Date Type Department Care Team (Late st Contact Info) Description 05/16/2024 Telephone [facility] Medical Group Multispecialty Care - [place] [address] [address] [place] [address] [place] [address] [place] [address] [address] [place] [address] Quality Gap Closure Social History Tobacco Use Types Packs/Day Years [...] as of this encounter Progress Notes * Nicole Cowart MA - 05/16/2024 4:21 PM CDT Calling this pt regarding a needed lab-left a -ordered the microalbumin lab documented in this encounter Plan of Treatment Upcoming Encounters Date Type Department Care Team (Late st Contact Info) Description 10/03/2024 11:00 AM REAL ESTATE AGENT/BROKER Office Visit [facility] Medical [facility] Pulmonology Specialty Clinic - [address] [address] Nathan Baig MD 3 [facility] [address] [place] [address] 11/14/2024 10:20 AM REAL ESTATE AGENT/BROKER Office Visit [facility] Multispecialty Care - [place] [address] [address] [place] [address] Tracy Olivares MD [address] [place] [address] Scheduled Orders Name Type Priority Associated Diagnoses Orde r Schedule ALBUMIN/CREATININE RATIO, RANDOM URINE Lab Routine Type 2 diabetes mellitus with hyperglycemia, without long-term current use of insulin ([facility]) Expected: 05/16/2024, Expires: 05/16/2025 documented as of this encounter Visit Diagnoses Diagnosis Type 2 diabetes mellitus with hyperglycemia, without long-term current use of insulin ([facility])- Primary documented in this encounter Additional Health Concerns Assessment Noted Time PHQ-9 Depression Total Score: 2 09/14/19 24 11:30 AM REAL ESTATE AGENT/BROKER documented as of this encounter Care Teams Health Assessment And Treatment Teacher Relationship Specialty Start Date End Date Tracy Olivares MD [address] [place] [address] PCP - General INTERNAL MEDICINE 01/02/21 Nathan Baig MD 3 [facility] [address] [place] [address] Consulting Physician Internal Medicine Pulmonary Disease 09/16/21 documented as of this encounter
--- OUTSIDE RECORDS SUMMARY | 2024-09-07 05:22 | XMS_ITS | Encounter Summary ---
Author Organization [facility] Address [address] [place] [address]. [place], [place] [address] [place] [address] Care Team Providers Care Associate Professor Of Kinesiology Name Role Phone Tracy Olivares MD Primary Care Provider [phone] Nathan Baig MD Unavailable [phone] Marisel Mancini RN Unavailable [phone] Reason for Visit * Reason Onset Date Comments [facility] 07/25/2024 [facility] 06/27-07/10- discitis of lumbar region. Then [facility] for rehab 07/10-07/24/24 Encounter Details Date Type Department Care Team (Latest Contact Info) Description 07/25/2024 Patient Outreach [facility] Medical Group Multispecialty Care - [address] [place] [address] Marisel Mancini, RN [address] [place] [address] [facility] ([facility] 06/27-07/10- discitis of lumbar region. Then [facility] for rehab 07/10-07/24/24) Social History Tobacco Use Types Packs/Day Years [...] Progress Notes * Marisel Mancini RN - 07/25/2024 10:15 AM CST Follow up call to patient post hospitalization Patient admitted to [facility] on 06/27/24 with discharge diagnosis of discitis of lumbar region. Then went to [facility] 07/10-07/24/24 for rehab and IV therapy. Activity: Follow restrictions in AVS. TLSO brace when out of bed and with activity. Dispo: SNF Diet: DIET GENERAL Effective Now Code Status at Discharge: Full Code Wound Care: None needed Hospital Course: 68 year old with asthma, emphysema, HLD, GERD, peripheral neuropathy, HTN, presented with worseningback pain. Found to have L4- L5 discitis/ osteomyelitis on MRI. Seen by infectious disease, recommended for cefepime IV for 6 weeks. Seen by neurosurgery, no acute intervention, recommend course of antibiotics and follow up with neurosurgery in 3 months with repeat xrays. Given stable VS and labs, no further acute inpatient intervention, patient discharged to post acute care. # Acute low back pain: # L4-L5 Osteomyelitis/discitiswith epidural phlegmon: - X-ray of the spine showed Disc and endplate changes at L5-S1 region suspicious for discitis and osteomyelitis. - S/p IR biopsy on 06/28 - Path reveals no malignancy and no evidence of definitive osteomyelitis. Tissue cultures no growth. Blood cx 06/27 NGTD. - MRI lumbar spine concerning for Lumbar discitis/osteomyelitis with epidural phlegmon - Neurosurgery consulted, appreciate input. No indication for neurosurgical intervention. Follow upwith Dr. Fischer in 3 months with upright xrays before the appointment - seen by infectious disease - IV cefepime 2000mg every 12 hours for 6 weeks (~06/28 through 08/09), weekly CBC,Cr, CRP. Outpatient ID follow up. - Continue PT/OT, fall precautions - TLSO brace. Brace to be worn at all times when head of bed >30 degrees, when upright, out of bed, in chair or walking - No lifting over 8 pounds (a gallon of milk) until further notice - No bending, lifting or twisting # HLD: -Continue home atorvastatin # Hx asthma, Emphysema: With no acute exacerbation. -Continue home Trelegy and albuterol as needed # FAISAL: - home CPAP # GERD: - home pantoprazole. Pepcid twice daily as needed # Type 2 DM: - resume hold jardiance on discharge # Peripheral neuropathy: -Continue gabapentin # HTN: - hold mine captain losartan 100mg, hydrochlorothiazide 12.5mg. BP has been stable < 140/90. If BP more than 140/90 consistently, consider restarting stepwise at postacute care Nutritional status and in-house recommendations: Current Diet and/or Nutritional Supplementation ordered: DIET GENERAL Effective Now Discharge date: 07/24/24 Date of Contact: 07/25/24 Patient Status: CC introduced self and explained the role of the CC team. Patient is very nice and no distress noted. She has a little pain and stiffness in her back, but otherwise is doing well. She is wearing her TLSO brace at all times, except when she is in bed. CC instructed her that the head of the bed should be elevated at least 30 degrees and she wasn't aware of that, but voiced understanding and will remember that when she lays down. No issues with bowels or urination. She denies any SOB and no edema. Medications reviewed. She isn't taking the Miralax because she has the MOM to use. Patient denies any open areas on her skin. Shed cannot check her FBS because she doesn't have any test strips and needs more lancets. Her FreeStyle only came with a couple of lancets and no test strips. CC will inform PCP. She is getting home IV antibiotic through 08/09/24 and her son and her daughter are both able to dothis in SN absence. The home health nurse called and they cannot come out until 07/30/24. CC allowed for questions and none at this time. CC cannot find an open TCM appt with PCP, so will have the office call and get this scheduled. Patient is agreeable with a call from CC next week, to check on status. 07/27/24: CC called Dr. Olivares's office and spoke with Leni. She will get an appt. scheduled for the patient and will also get refills for the lancets and test strips. Leni said Dr. Olivares wants an hour time slot to see this patient, so Leni will take care of this. Pertinent Labs: see EPIC Pertinent Procedures/Imaging performed while inpatient: see EPIC Vaccines Given While Inpatient: flu and pneumonia vaccine given at [facility]. Discharge Disposition: Home with [facility]. Any follow up appointments needed to be scheduled: yes, patient needs a TCM appt with PCP Future Appointments Date Time Provider Department Center 10/03/2024 11:00 AM Nathan Baig MD [id number] Referrals needed: no. Currently has an ADDUS worker once weekly for only 3 hours and she is going to see if she can get more hours. Any follow up labs/imaging needed: no Have lab/imaging orders been placed: n/a Allergies: Review of patient's allergies indicates: Allergen Reactions Celebrex [Celecoxib] Itching Propoxyphene Unknown Medications: Outpatient medications have been reconciled with hospital discharge list. See below for changes. Current Outpatient Medications Medication Sig Dispense Refill acetaminophen (TYLENOL) 500 MG tablet Take 1 tablet (500 mg total) by mouth every 6 (six) hours as needed for Pain. albuterol sulfate HFA 108 (90 Base) MCG/ACT inhaler Inhale 2 puffs into the lungs every 4 (four) hours as needed. (Patient taking differently: Inhale 2 puffs into the lungs every 6 (six) hours as needed for Wheezing.) 18 g 5 aspirin 81 MG tablet Take 1 tablet (81 mg total) by mouth daily. atorvastatin (LIPITOR) 20 MG tablet Take 1 tablet (20 mg total) by mouth nightly at bedtime. at bedtime 90 tablet 1 Blood Gluc Meter Disp-Strips (BLOOD GLUCOSE METER DISPOSABLE) Device Use daily to check blood sugar. Okay to substitute with whichever brand insurance will cover. 100 each 11 Blood Glucose Monitoring Suppl (ONE TOUCH ULTRA 2) w/Device Kit Check blood sugar twice a day before meals. 1 kit 0 Blood Glucose Monitoring Suppl Kit Use daily to check blood sugar. Okay to substitute with whichever one insurance will cover thank you. 1 kit 0 ceFEPIme (MAXIPIME) 2 GM/100ML IV SOLN Inject 100 mLs (2 g total) into the vein every 12 (twelve) hours. cetirizine (ZYRTEC) 10 MG tablet Take 1 tablet (10 mg total) by mouth daily. (Patient taking differently: Take 0.5 tablets (5 mg total) by mouth daily.) 90 tablet 3 Cholecalciferol 50 MCG (2000 UT) Tab Take 1 tablet by mouth daily. cyclobenzaprine (FLEXERIL) 10 MG tablet Take 1 tablet (10 mg total) by mouth 3 (three) times daily as needed for Muscle Spasms. empagliflozin (JARDIANCE) 25 MG tablet Take 1 tablet (25 mg total) by mouth daily. 90 tablet 1 famotidine (PEPCID) 20 MG tablet Take one tablet two times daily as needed for heart burn. (Patienttaking differently: Take 1 tablet (20 mg total) by mouth 2 (two) times daily. Take one tablet two times a day) 180 tablet 1 Tkbgprxmtmr-Fyhjdarig-Ykzden (TRELEGY ELLIPTA) 100-62.5-25 MCG/ACT AEROSOL POWDER, BREATH ACTIVATEDInhale 1 puff into the lungs daily. (Patient taking differently: Inhale 1 puff into the lungs nightly.) 180 each 3 gabapentin (NEURONTIN) 300 MG capsule Take 1 capsule (300 mg total) by mouth nightly at bedtime. (Patient taking differently: Take 1 capsule (300 mg total) by mouth 2 (two) times daily.) 90 capsule 1 Glucose Blood test strip Check blood sugar twice a day before meals. 300 strip 1 HYDROcodone-acetaminophen (NORCO) 5-325 MG tablet Take 1 tablet by mouth every 4 (four) hours as needed for Pain. Lancets (ONETOUCH ULTRASOFT) lancets Check blood sugar twice a day before meals. 100 each 1 Lancets [facility] Use daily to check blood sugar. Okay to substitute with whichever brand insurance willcover thank you. 100 each 11 lidocaine 4 % patch Place 1 patch onto the skin every 12 (twelve) hours. Remove & Discard patchwithin 12 hours or as directed by Magnesium Hydroxide (MILK OF MAGNESIA OR) Take 30 mLs by mouth daily as needed. melatonin 3 MG tablet Take 1 tablet (3 mg total) by mouth nightly as needed. ONETOUCH VERIO test strip Senna (SENOKOT) 8.6 MG tablet Take 1 tablet (8.6 mg total) by mouth 2 (two) times daily as needed for Constipation. No current facility-administered medications for this visit. Medication Changes or Discontinued Medications: Medlist reviewed from [facility] with the patient. She is independent with her meds and has no questions. Does patient have difficulty affording medication: no Do any medications need refilled: no Does patient have access to care and services (rides, etc)? Yes. She uses [facility] for transportation, if she can't find anyone that's free to take her to appointments. She said they always call her and check on her and to see if she needs anything. Volunteers provide her with transportation if she needs it. Patient Goals: Goals Addressed This Visit's Progress Establish Regular Follow-Ups with PCP Medications - able to self-administer medications Plan of Care: CC will continue to follow the patient by phone and patient is agreeable. CONVEYOR FEEDER CONVEYOR FEEDER CONVEYOR FEEDER * Katharina Underwood MA - 07/25/2024 10:15 AM CST Follow up call to patient post hospitalization Date of hospital discharge: 07/24/24 Patient discharged from: [facility] Discharge diagnosis/diagnoses: diskitis of the lumbar region/osteomyelitis Procedures performed while inpatient: IV antibiotics for 6 weeks Any follow up services needed: F/U with PCP Education on self management: Yes Does patient have access to care and services (rides, etc)? Yes Appointment scheduled for follow up in the office: 08/07/24 11:20 AM CONVEYOR FEEDER documented in this encounter Plan of Treatment Upcoming Encounters Date Type Department Care Team (Late st Contact Info) Description 10/03/2024 11:00 AM CAN CONVEYOR FEEDER Office Visit [facility] Medical Group Pulmonology Specialty Clinic - [address] [place] [address] Nathan Baig MD [address] [place] [address] 11/14/2024 10:20 AM CAN CONVEYOR FEEDER Office Visit [facility] Medical Group Multispecialty Care - [address] [place] [address] Tracy Olivares MD [address] [address] documented as of this encounter Visit Diagnoses Not on filedocumented in this encounter Additional Health Concerns Assessment Noted Time PHQ-9 Depression Total Score: 2 09/14/19 24 11:30 AM CAN CONVEYOR FEEDER documented as of this encounter Care Teams Associate Professor Of Kinesiology Relationship Specialty Start Date End Date Tracy Olivares MD [address] [place] [address] PCP - General INTERNAL MEDICINE 01/02/21 Nathan Baig MD [address] [address] Consulting Physician Internal Medicine Pulmonary Disease 09/16/21 Marisel Mancini, RN [address] [place] [address] Website Project Manager (Ambulatory) REGISTERED NURSE 06/28/24 08/07/24 documented as of this encounter
--- OUTSIDE RECORDS SUMMARY | 2024-09-07 05:22 | XMS_ITS | Encounter Summary ---
Author Organization [facility] Address [address] [place] [address]. [place], [place] [address] [place] [address] Care Team Providers Care Air Quality Specialist Name Role Phone Tracy Olivares MD Primary Care Provider [phone] Nathan Baig MD Unavailable [phone] Reason for Visit * Reason Onset Date Comments Question 04/02/2024 Patient called i n inquiring about the contact information information that was given to her last week. Provided her with Zadby scheduling line of [phone] . Patient v/u. Encounter Details Date Type Department Care Team (Late st Contact Info) Description 04/02/2024 Telephone [facility] Medical Group Multispecialty Care - [place] [address] [address] [place] [address] Tracy Olivares MD [address] [place] [address] [address] [place] [address] Question (Patient called in inquiring about the contact information information that was given to her last week. Provided her with Zadby scheduling line of [phone] . Patient v/u.) Social History Tobacco Use Types Packs/Day Years [...] as of this encounter Progress Notes * Javon Gracia - 04/02/2024 10:31 AM CDT Patient called in inquiring about the contact information information that was given to her last week. Provided her with Willie scheduling line of [phone] . Patient v/u. documented in this encounter Plan of Treatment Upcoming Encounters Date Type Department Care Team (Late st Contact Info) Description 10/03/2024 11:00 AM HAND FLESHER Office Visit [facility] Medical [facility] [facility] Pulmonology Specialty Clinic - [address] [address] Nathan Baig MD [address] [address] 11/14/2024 10:20 AM HAND FLESHER Office Visit [facility] Multispecialty Care - [place] [address] [address] [place] [address] Tracy Olivares MD [address] [place] [address] documented as of this encounter Visit Diagnoses Not on filedocumented in this encounter Additional Health Concerns Assessment Noted Time PHQ-9 Depression Total Score: 2 09/14/19 24 11:30 AM HAND FLESHER documented as of this encounter Care Teams Air Quality Specialist Relationship Specialty Start Date End Date Tracy Olivares MD [address] [place] [address] PCP - General INTERNAL MEDICINE 01/02/21 Nathan Baig MD 3 [facility] [address] [place] [address] Consulting Physician Internal Medicine Pulmonary Disease 09/16/21 documented as of this encounter
--- OUTSIDE RECORDS SUMMARY | 2024-09-07 05:22 | XMS_ITS | Encounter Summary ---
Author Organization [facility] Address [address] [place] [address]. [place], [place] [address] [place] [address] Care Team Providers Care Rn Home Care Name Role Phone Tracy Olivares MD Primary Care Provider [phone] Nathan Baig MD Unavailable [phone] Reason for Visit * Reason Comments PFT (SCAN) Encounter Details Date Type Department Care Team (Latest Contact Info) Description 04/25/2024 Scan HEALTH INFO SRVCS Scanned, Doc Med Group PFT (SCAN) Social History Tobacco Use Types Packs/Day [...] st Contact Info) Description 10/03/2024 11:00 AM AFTERNOON BABYSITTER Office Visit [facility] Medical Group Pulmonology Specialty Clinic - [address] [place] [address] Nathan Baig MD [address] [place] [address] 11/14/2024 10:20 AM AFTERNOON BABYSITTER Office Visit [facility] Medical Group Multispecialty Care - [place] [address] [address] [place] [address] Tracy Olivares MD [facility] [address] documented as of this encounter Procedures Procedure Name Priority Date/Time Associated Diagnosis Comments PFT GENERIC (SCAN ORDER) 04/25/2024 documented in this encounter Results * PFT GENERIC (SCAN ORDER) (04/25/2024) 04/25/2024 us Doc Med Group Scanned SCANNING Final Resu lt documented in this encounter Visit Diagnoses Not on filedocumented in this encounter Additional Health Concerns Assessment Noted Time PHQ-9 Depression Total Score: 2 09/14/19 24 11:30 AM AFTERNOON BABYSITTER documented as of this encounter Care Teams Rn Home Care Relationship Specialty Start Date End Date Tracy Olivares MD [address] [place] [address] PCP - General INTERNAL MEDICINE 01/02/21 Nathan Baig MD [address] [address] Consulting Physician Internal Medicine Pulmonary Disease 09/16/21 documented as of this encounter
--- OUTSIDE RECORDS SUMMARY | 2024-09-07 05:22 | XMS_ITS | Encounter Summary ---
Author Organization [facility] Address [address] [place] [address]. [place], [place] [address] [place] [address] Care Team Providers Care Electric Engine Mechanic Name Role Phone Tracy Olivares MD Primary Care Provider [phone] Nathan Baig MD Unavailable [phone] Marisel Mancini RN Unavailable [phone] Encounter Details Date Type Department Care Team (Latest Contact Info) Description 07/02/2024 Scan HEALTH INFO SRVCS Scanned, Doc Med [...] st Contact Info) Description 10/03/2024 11:00 AM RIDE OPERATOR Office Visit [facility] Medical Group Pulmonology Specialty Clinic - [address] [place] [address] Nathan Baig MD [address] [place] [address] 11/14/2024 10:20 AM RIDE OPERATOR Office Visit [facility] Medical Group Multispecialty Care - [place] [address] [address] [place] [address] Tracy Olivares MD [address] [address] documented as of this encounter Visit Diagnoses Not on filedocumented in this encounter Additional Health Concerns Assessment Noted Time PHQ-9 Depression Total Score: 2 09/14/19 24 11:30 AM RIDE OPERATOR documented as of this encounter Care Teams Electric Engine Mechanic Relationship Specialty Start Date End Date Tracy Olivares MD [address] [place] [address] PCP - General INTERNAL MEDICINE 01/02/21 Nathan Baig MD [address] [id number] Consulting Physician Internal Medicine Pulmonary Disease 09/16/21 Marisel Mancini, RN [address] [place] [address] Property And Equipment Clerk (Ambulatory) REGISTERED NURSE 06/28/24 08/07/24 documented as of this encounter
--- OUTSIDE RECORDS SUMMARY | 2024-09-07 05:22 | XMS_ITS | Encounter Summary ---
Author Organization [facility] Address [address] [place] [address]. [place], [place] [address] [place] [address] Care Team Providers Care Food Technician Name Role Phone Tracy Olivares MD Primary Care Provider [phone] Nathan Baig MD Unavailable [phone] Marisel Mancini RN Unavailable [phone] Encounter Details Date Type Department Care Team (Latest Contact Info) Description 07/30/2024 Scan HEALTH INFO SRVCS Scanned, Doc Med [...] st Contact Info) Description 10/03/2024 11:00 AM SENIOR JAVA WEB DEVELOPER Office Visit [facility] Medical Group Pulmonology Specialty Clinic - [address] [place] [address] Nathan Baig MD [address] [place] [address] 11/14/2024 10:20 AM SENIOR JAVA WEB DEVELOPER Office Visit [facility] Medical Group Multispecialty Care - [place] [address] [address] [place] [address] Tracy Olivares MD [address] [address] documented as of this encounter Visit Diagnoses Not on filedocumented in this encounter Additional Health Concerns Assessment Noted Time PHQ-9 Depression Total Score: 2 09/14/19 24 11:30 AM SENIOR JAVA WEB DEVELOPER documented as of this encounter Care Teams Food Technician Relationship Specialty Start Date End Date Tracy Olivares MD [address] [place] [address] PCP - General INTERNAL MEDICINE 01/02/21 Nathan Baig MD [address] [id number] Consulting Physician Internal Medicine Pulmonary Disease 09/16/21 Marisel Mancini, RN [address] [place] [address] Color Room Attendant (Ambulatory) REGISTERED NURSE 06/28/24 08/07/24 documented as of this encounter
--- OUTSIDE RECORDS SUMMARY | 2024-09-07 05:22 | XMS_ITS | Encounter Summary ---
Author Organization [facility] Address [address] [place] [address]. [place], [place] [address] [place] [address] Care Team Providers Care Molder Meat Name Role Phone Tracy Olivares MD Primary Care Provider [phone] Nathan Baig MD Unavailable [phone] Encounter Details Date Type Department Care Team (Latest Contact Info) Description 03/20/2024 Travel Social History Tobacco Use Types Packs/Day Years Used Date Smoking Tobacco: Former Cigarettes Smokeless Tobacco: Never Comments:Counseled by Dr. Sharon purcell. Alcohol Use Standard Drinks/Week Comments Not Currently 0 (1 standard drink = 0.6 oz pur e alcohol) PHQ-2 Answer Date Recorded Patient Health Questionnaire-2 Score 0 09/14/2023 Comments No Sex and Gender Information Value Date Recorded Sex Assigned at Not on file Legal Sex Female 8:25 PM CDT Gender Identity Not on file Sexual Orientation Not on file documented as of this encounter Plan of Treatment Upcoming Encounters Date Type Department Care Team (Late st Contact Info) Description 10/03/2024 11:00 AM STREETCAR DISPATCHER Office Visit [facility] Medical Group Pulmonology Specialty Clinic - [place] [address] [address] [facility] [address] [place] [address] Nathan Baig MD [address] [place] [address] 11/14/2024 10:20 AM STREETCAR DISPATCHER Office Visit [facility] Medical Group Multispecialty Care - [place] [address] [address] [facility] [address] [place] [address] Tracy Olivares MD 118[address] [facility] 157 [place] [address] documented as of this encounter Visit Diagnoses Not on filedocumented in this encounter Additional Health Concerns Assessment Noted Time PHQ-9 Depression Total Score: 2 09/14/19 24 11:30 AM STREETCAR DISPATCHER documented as of this encounter Care Teams Molder Meat Relationship Specialty Start Date End Date Tracy Olivares MD 1188 [facility] 157 [place] [address] PCP - General INTERNAL MEDICINE 01/02/21 Nathan Baig MD [address] [address] Consulting Physician Internal Medicine Pulmonary Disease 09/16/21 documented as of this encounter
--- OUTSIDE RECORDS SUMMARY | 2024-09-07 05:22 | XMS_ITS | Encounter Summary ---
Author Organization [facility] Address [address] [place] [address]. [place], [place] [address] [place] [address] Care Team Providers Care Public Health Sanitarian Name Role Phone Tracy Olivares MD Primary Care Provider [phone] Nathan Baig MD Unavailable [phone] Reason for Visit * Reason Comments Mammogram (SCAN) Encounter Details Date Type Department Care Team (Late Contact Info) Description 05/10/2024 Scan HEALTH INFO SRVCS Scanned, Doc Med Group Mammogram (SCAN) Social History Tobacco Use Types Packs/Day [...] (Late Contact Info) Description 10/03/2024 11:00 AM SOLID FIBER PASTER OPERATOR Office Visit [facility] Medical [facility]ty [facility] - [address] [place] [address] Nathan Baig MD [address] [place] [address] 11/14/2024 10:20 AM SOLID FIBER PASTER OPERATOR Office Visit [facility] Medical Group Multispecialty Care - [place] [address] [address] [place] [address] Tracy Olivares MD [facility] [address] documented as of this encounter Procedures Procedure Name Priority Date/Time Associated Diagnosis Comments MAMMOGRAM GENERIC (SCAN ORDER) 05/10/2024 documented in this encounter Results * MAMMOGRAM GENERIC (SCAN ORDER) (05/10/2024) Anatomical Region Laterality Modality Other 05/10/2024 us Doc Med Group Scanned SCANNING Final Resu lt documented in this encounter Visit Diagnoses Not on filedocumented in this encounter Additional Health Concerns Assessment Noted Time PHQ-9 Depression Total Score: 2 09/14/19 24 11:30 AM SOLID FIBER PASTER OPERATOR documented as of this encounter Care Teams Public Health Sanitarian Relationship Specialty Start Date End Date Tracy Olivares MD [address] [place] [address] PCP - General INTERNAL MEDICINE 01/02/21 Nathan Baig MD [address] [address] Consulting Physician Internal Medicine Pulmonary Disease 09/16/21 documented as of this encounter
--- OUTSIDE RECORDS SUMMARY | 2024-09-07 05:22 | XMS_ITS | Encounter Summary ---
Author Organization [facility] Address [address] [place] [address]. [place], [place] [address] [place] [address] Care Team Providers Care Guest Services Agent Name Role Phone Tracy Olivares MD Primary Care Provider [phone] Nathan Baig MD Unavailable [phone] Marisel Mancini RN Unavailable [phone] Reason for Referral * Home Health Care (Urgent) - Pending Review Specialty Diagnoses / Procedures Referred By Contac t Referred To Contact Home Health Services Diagnoses Laceration of right dorsal artery of foot Discitis of lumbar region Procedures OFFICE/OUTPATIENT NEW LOW MDM 30-44 MINUTES OFFICE/OUTPT VISIT,NEW,LEVL IV OFFICE/OUTPT VISIT,NEW,LEVL V OFFICE/OUTPT VISIT,EST,LEVL III OFFICE/OUTPT VISIT,EST,LEVL IV OFFICE/OUTPT VISIT,EST,LEVL V Tracy Olivares MD [address] [place] [address] Phone: tel: fax: Referral ID Status Reason Start Date Expiration Date Visits Requested Visits Authorized [id number] Pending Review Home Health Services 07/23/2025 1 1 TIATOR SALES Reason for Visit * Reason Onset Date Comments Referral 07/23/2024 Encounter Details Date Type Department Care Team (Late st Contact Info) Description 07/23/2024 Telephone [facility] Medical Group Multispecialty Care - [place] [address] [address] [place] [address] Tracy Olivares MD [address] [facility] [address] [place] [address] Referral Social History Tobacco Use Types Packs/Day [...] as of this encounter Progress Notes * Kelsey Garcia MA - 07/23/2024 5:08 PM CST Patient was informed of the message and voiced understanding TIATOR SALES * Lester Huffman - 07/23/2024 4:12 PM CST Pt is being discharged tomorrow, and is wanting a call soon as IV is insurance approved. Pt thinks until IV is approved she thinks they will not approve to discharge, pls call pt. TIATOR SALES * Najma Moreland MA - 07/23/2024 3:59 PM CST After speaking with dr. Olivares she states she would like home health to complete antibiotics. I haveplaced an urgent referral and have faxed this to their office. Messaged mg prior auth to help with insurance authorization. TIATOR SALES * Jessica Lockhart - 07/23/2024 2:25 PM CST Yara from [facility] is requesting a Home Infusion Essence Referral for this patient. Yara requested that the CPT Code: S95.01 be used. Antibiotic is: Cefepime This was originally ordered by Dr. Indio Chaparro at [facility]. Please fax the referral to: [phone]. Thank you. TIATOR SALES documented in this encounter Plan of Treatment Upcoming Encounters Date Type Department Care Team (Late st Contact Info) Description 10/03/2024 11:00 AM NEGOTIATOR SALES Office Visit [facility] Medical [facility] Pulmonology Specialty Clinic - [address] [address] Nathan Baig MD 3 [facility] [address] [place] [address] 11/14/2024 10:20 AM NEGOTIATOR SALES Office Visit [facility] Multispecialty Care - [place] [address] [address] [place] [address] Tracy Olivares MD [address] [place] [address] Scheduled Referrals Name Type Priority Associated Diagnoses Orde r Schedule Abbreviated Ambulatory Referral to Home Health Referral Routine Laceration of right dorsal artery of foot Discitis of lumbar region Ordered: 07/23/2024 documented as of this encounter Visit Diagnoses Diagnosis Laceration of right dorsal artery of foot- Primary Injury to specified blood vessels of lower extremity, other Discitis of lumbar region Other and unspecified disc disorder of lumbar region documented in this encounter Additional Health Concerns Assessment Noted Time PHQ-9 Depression Total Score: 2 09/14/19 24 11:30 AM NEGOTIATOR SALES documented as of this encounter Care Teams Guest Services Agent Relationship Specialty Start Date End Date Tracy Olivares MD [address] [place] [address] PCP - General INTERNAL MEDICINE 01/02/21 Nathan Baig MD 3 [facility] [address] [address] Consulting Physician Internal Medicine Pulmonary Disease 09/16/21 Marisel Mancini, RN [address] [place] [address] Freelance Designer (Ambulatory) REGISTERED NURSE 06/28/24 08/07/24 documented as of this encounter
--- OUTSIDE RECORDS SUMMARY | 2024-09-07 05:22 | XMS_ITS | Encounter Summary ---
Author Organization [facility] Address [address] [place] [address]. [place], [place] [address] [place] [address] Care Team Providers Care Lead Fabricator Name Role Phone Tracy Olivares MD Primary Care Provider [phone] Nathan Baig MD Unavailable [phone] Reason for Visit * Reason Onset Date Comments Orders 05/08/2024 Encounter Details Date Type Department Care Team (Late Contact Info) Description 05/08/2024 Telephone [facility] Multispecialty Care - [place] [address] [address] [place], [place] [id number] Tracy Olivares MD [address] [place] [address] Orders Social History Tobacco Use Types Packs/Day [...] (Late Contact Info) Description 10/03/2024 11:00 AM PADDED BOX SEWER Office Visit [facility] Medical [facility] Pulmonology Specialty Clinic - [address] [place], [place] [address] Nathan Baig MD 3 [facility] [address] [place] [address] 11/14/2024 10:20 AM PADDED BOX SEWER Office Visit [facility] Medical Group Multispecialty Care - [place] [address] [address] [place] [address] Tracy Olivares MD [address] [address] documented as of this encounter Visit Diagnoses Diagnosis Type 2 diabetes mellitus with hyperglycemia, without long-term current use of insulin ([facility])- Primary documented in this encounter Additional Health Concerns Assessment Noted Time PHQ-9 Depression Total Score: 2 09/14/19 24 11:30 AM PADDED BOX SEWER documented as of this encounter Care Teams Lead Fabricator Relationship Specialty Start Date End Date Tracy Olivares MD [address] [place] [address] PCP - General INTERNAL MEDICINE 01/02/21 Nathan Baig MD 3 [facility] [address] [place] [address] Consulting Physician Internal Medicine Pulmonary Disease 09/16/21 documented as of this encounter
--- OUTSIDE RECORDS SUMMARY | 2024-09-07 05:22 | XMS_ITS | Encounter Summary ---
Author Organization [facility] Address [address] [place] [address]. [place] [id number] [place] [address] Care Team Providers Care Drier And Pulverizer Tender Name Role Phone Tracy Olivares MD Primary Care Provider [phone] Nathan Baig MD Unavailable [phone] Marisel Mancini RN Unavailable [phone] Reason for Visit * Reason Onset Date Comments Referral 07/25/2024 Encounter Details Date Type Department Care Team (Late st Contact Info) Description 07/25/2024 Telephone [facility] Medical Group Multispecialty Care - [place] [address] [address] [place] [address] Tracy Olivares MD 1188 [facility] 157 [place] [address] Referral Social History Tobacco Use Types Packs/Day [...] Progress Notes * Najma Moreland MA - 07/25/2024 4:53 PM CST Order has been refaxed. 07/25/2024 TRAINER MAINTENANCE MAN * Bahman Conrad - 07/25/2024 9:58 AM CST Milena (home health coordinator) called and requested that patient have an Order for PT,OT &LONG TERM placed as patient is being d/c on 07/25/24 from Rehab. Patient being d/c on IV Abx and Infectious Disease Physician following regarding that portion of patient care. 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 Milena: TRAINER MAINTENANCE MAN documented in this encounter Plan of Treatment Upcoming Encounters Date Type Department Care Team (Late st Contact Info) Description 10/03/2024 11:00 AM LINK TRAINER MAINTENANCE MAN Office Visit [facility] Medical Group Pulmonology Specialty Clinic - [address] [address] Nathan Baig MD [address] [place] [address] 11/14/2024 10:20 AM LINK TRAINER MAINTENANCE MAN Office Visit [facility] Medical Group Multispecialty Care - [place] [address] [address] [place] [address] Tracy Olivares MD [address] [place] [address] documented as of this encounter Visit Diagnoses Not on filedocumented in this encounter Additional Health Concerns Assessment Noted Time PHQ-9 Depression Total Score: 2 09/14/19 11:30 AM LINK TRAINER MAINTENANCE MAN documented as of this encounter Care Teams Drier And Pulverizer Tender Relationship Specialty Start Date End Date Tracy Olivares MD [address] [place] [address] PCP - General INTERNAL MEDICINE 01/02/21 Nathan Baig MD [address] [address] Consulting Physician Internal Medicine Pulmonary Disease 09/16/21 Marisel Mancini, RN [address] [place], [place] [address] Conceptor (Ambulatory) REGISTERED NURSE 06/28/24 08/07/24 documented as of this encounter
--- OUTSIDE RECORDS SUMMARY | 2024-09-07 05:22 | XMS_ITS | Encounter Summary ---
Author Organization [facility] Address [address] [place] [address]. [place] [address] [place] [address] Care Team Providers Care Communications Intern Name Role Phone Tracy Olivares MD Primary Care Provider [phone] Nathan Baig MD Unavailable [phone] Marisel Mancini RN Unavailable [phone] Reason for Visit * Reason Onset Date Comments Hospital Follow Up 07/17/2024 Call to [facility]. Encounter Details Date Type Department Care Team (Latest Contact Info) Description 07/17/2024 Patient Outreach [facility] Medical Group Multispecialty Care - [address] [place] [address] Marisel Mancini, RN [address] [place] [address] Hospital Follow Up (Call to [facility]. ) Social History Tobacco Use Types Packs/Day [...] Progress Notes * Marisel Mancini RN - 07/17/2024 3:22 PM CST 07/17/24: CC called [facility] and spoke to Kacy, the nurse. Patient is doing very well. She transferred CC to the , to ask about length of planned stay. No one answered and CC left a VM. 07/19/24: CC called [facility] and left a VM for the kindergarten teacher assistant, Shayy Ngo and asked about any discharge plans and asked for a return call if any plans are known. No return call. 07/20/24: CC called [facility] and patient remains there at this time. 07/23/24: Patient remains in [facility]. 07/25/24: CC called [facility] and spoke with Carlos. She said patient discharged home yesterday. She will fax CC a copy of her medlist for review right now. Medlist rec'd promptly. AVER LETTERING documented in this encounter Plan of Treatment Upcoming Encounters Date Type Department Care Team (Late st Contact Info) Description 10/03/2024 11:00 AM ENGRAVER LETTERING Office Visit [facility] Medical Group Pulmonology Specialty Clinic - [address] [address] Nathan Baig MD [address] [place] [address] 11/14/2024 10:20 AM ENGRAVER LETTERING Office Visit [facility] Medical Group Multispecialty Care - [place] [address] [address] [place] [address] Tracy Olivares MD [address] [place] [address] documented as of this encounter Visit Diagnoses Not on filedocumented in this encounter Additional Health Concerns Assessment Noted Time PHQ-9 Depression Total Score: 2 09/14/19 24 11:30 AM ENGRAVER LETTERING documented as of this encounter Care Teams Communications Intern Relationship Specialty Start Date End Date Tracy Olivares MD [address] [place], [place] [address], [place] [address] PCP - General INTERNAL MEDICINE 01/02/21 Nathan Baig MD [address] [address] Consulting Physician Internal Medicine Pulmonary Disease 09/16/21 Marisel Mancini, RN [address] [place] [address] Wares Sorter (Ambulatory) REGISTERED NURSE 06/28/24 08/07/24 documented as of this encounter
--- OUTSIDE RECORDS SUMMARY | 2024-09-07 05:22 | XMS_ITS | Encounter Summary ---
Author Organization [facility] Address [address] [place] [address]. [place] [id number] [place] [address] Care Team Providers Care Student Affairs Vice President Name Role Phone Tracy Olivares MD Primary Care Provider [phone] Nathan Baig MD Unavailable [phone] Reason for Visit * Reason Onset Date Comments Pre-visit Gap Closure 04/27/2024 Encounter Details Date Type Department Care Team (Latest Contact Info) Description 04/27/2024 Patient Outreach [facility] Medical Group Multispecialty Care - [place] [address] [address] [place] [address] Tracy Olivares MD [address] [place] [address] [place], [place] [address] Pre-visit Gap Closure Social History Tobacco Use Types [...] as of this encounter Progress Notes * Sushma Greene - 04/27/2024 9:08 AM CDT Labs: BMP/CMP: Up to Date Notes: Hemoglobin A1c: Up to Date Notes: Urine Albumin-Creatinine Ratio: Needs Follow Up Notes: documented in this encounter Plan of Treatment Upcoming Encounters Date Type Department Care Team (Late st Contact Info) Description 10/03/2024 11:00 AM ALTERATION SPECIALIST Office Visit [facility] Medical [facility] Pulmonology Specialty Clinic - [address] [address] Nathan Baig MD [address] [address] 11/14/2024 10:20 AM ALTERATION SPECIALIST Office Visit [facility] Multispecialty Care - [place] [address] [address] [place] [address] Tracy Olivares MD [address] [place] [address] documented as of this encounter Visit Diagnoses Not on filedocumented in this encounter Additional Health Concerns Assessment Noted Time PHQ-9 Depression Total Score: 2 09/14/19 24 11:30 AM ALTERATION SPECIALIST documented as of this encounter Care Teams Student Affairs Vice President Relationship Specialty Start Date End Date Tracy Olivares MD [address] [place] [address] PCP - General INTERNAL MEDICINE 01/02/21 Nathan Baig MD 3 [facility] [address] [place] [address] Consulting Physician Internal Medicine Pulmonary Disease 09/16/21 documented as of this encounter
--- OUTSIDE RECORDS SUMMARY | 2024-09-07 05:22 | XMS_ITS | Encounter Summary ---
Author Organization [facility] Address [address] [place] [address]. [place], [place] [address] [place] [address] Care Team Providers Care Steam Fitter Supervisor Name Role Phone Tracy Olivares MD Primary Care Provider [phone] Nathan Baig MD Unavailable [phone] Marisel Mancini RN Unavailable [phone] Reason for Visit * Reason Comments Lab (SCAN) Image (SCAN) Encounter Details Date Type Department Care Team (Late Contact Info) Description 06/26/2024 Scan HEALTH INFO SRVCS Scanned, Doc Med Group Lab (SCAN); Image (SCAN) Social History Tobacco Use Types Packs/Day [...] Upcoming Encounters Date Type Department Care Team ([facility] Contact Info) Description 10/03/2024 11:00 AM BUFFING WHEEL FORMER AUTOMATIC Office Visit [facility] Medical Group Pulmonology Specialty Clinic - [address] [place], [place] [address] Nathan Baig MD [address] [place] [address] 11/14/2024 10:20 AM BUFFING WHEEL FORMER AUTOMATIC Office Visit [facility] Medical Group Multispecialty Care - [place] 1188 [facility] 157 [address] [place] [address] Tracy Olivares MD 1188 [facility] 157 [place] [address] documented as of this encounter Procedures Procedure Name Priority Date/Time Associated Diagnosis Comments OUTSIDE LAB (SCAN ORDER) 06/26/2024 OUTSIDE LAB (SCAN ORDER) 06/26/2024 OUTSIDE LAB (SCAN ORDER) 06/26/2024 OUTSIDE LAB (SCAN ORDER) 06/26/2024 OUTSIDE LAB (SCAN ORDER) 06/26/2024 IMAGE GENERIC 06/26/2024 IMAGE GENERIC 06/26/2024 documented in this encounter Results * OUTSIDE LAB (SCAN ORDER) (06/26/2024) 06/26/2024 [facility] [facility] Doc Med Group Scanned SCANNING Final Resu lt * OUTSIDE LAB (SCAN ORDER) (06/26/2024) 06/26/2024 [facility] Scanned SCANNING Final Resu lt * OUTSIDE LAB (SCAN ORDER) (06/26/2024) 06/26/2024 [facility] Scanned SCANNING Final Resu lt * OUTSIDE LAB (SCAN ORDER) (06/26/2024) 06/26/2024 [facility] Scanned SCANNING Final Resu lt * OUTSIDE LAB (SCAN ORDER) (06/26/2024) 06/26/2024 us Doc Med Group Scanned SCANNING Final Resu lt * IMAGE GENERIC (06/26/2024) Anatomical Region Laterality Modality Other 06/26/2024 us Doc Med Group Scanned SCANNING Final Resu lt * IMAGE GENERIC (06/26/2024) Anatomical Region Laterality Modality Other 06/26/2024 us Doc Med Group Scanned SCANNING Final Resu lt documented in this encounter Visit Diagnoses Not on filedocumented in this encounter Additional Health Concerns Assessment Noted Time PHQ-9 Depression Total Score: 2 09/14/19 24 11:30 AM BUFFING WHEEL FORMER AUTOMATIC documented as of this encounter Care Teams Steam Fitter Supervisor Relationship Specialty Start Date End Date Tracy Olivares MD 1188 [facility] 157 [place] [address] PCP - General INTERNAL MEDICINE 01/02/21 Nathan Baig MD [address] [address] Consulting Physician Internal Medicine Pulmonary Disease 09/16/21 Marisel Mancini RN [address]1 [place] [address] Delivery Lead (Ambulatory) REGISTERED NURSE 06/28/24 08/07/24 documented as of this encounter
--- OUTSIDE RECORDS SUMMARY | 2024-09-07 05:22 | XMS_ITS | Encounter Summary ---
Author Organization [facility] Address [address] [place] [address]. [place], [place] [address] [place] [address] Care Team Providers Care Fern Cutter Name Role Phone Tracy Olivares MD Primary Care Provider Nathan Baig MD Unavailable [phone] Reason for Visit * Reason Comments Sleep Study (SCAN) Encounter Details Date Type Department Care Team (Late Contact Info) Description 03/21/2024 Scan HEALTH INFO SRVCS Scanned, Doc Med Group Sleep Study (SCAN) Social History Tobacco Use Types Packs/Day [...] (Late Contact Info) Description 10/03/2024 11:00 AM NEWSSTAND VENDOR Office Visit [facility] Medical Group Pulmonology Specialty Clinic - [address] [place] [address] Nathan Baig MD [address] [place] [address] 11/14/2024 10:20 AM NEWSSTAND VENDOR Office Visit [facility] Medical Group Multispecialty Care - [place] [address] [address] [place] [address] Tracy Olivares MD [facility] [address] documented as of this encounter Procedures Procedure Name Priority Date/Time Associated Diagnosis Comments SLEEP STUDY GENERIC (SCAN ORDER) 03/21/2024 documented in this encounter Results * SLEEP STUDY GENERIC (SCAN ORDER) (03/21/2024) 03/21/2024 us Doc Med Group Scanned SCANNING Final Resu lt documented in this encounter Visit Diagnoses Not on filedocumented in this encounter Additional Health Concerns Assessment Noted Time PHQ-9 Depression Total Score: 2 09/14/19 24 11:30 AM NEWSSTAND VENDOR documented as of this encounter Care Teams Fern Cutter Relationship Specialty Start Date End Date Tracy Olivares MD [address] [place] [address] PCP - General INTERNAL MEDICINE 01/02/21 Nathan Baig MD [address] [address] Consulting Physician Internal Medicine Pulmonary Disease 09/16/21 documented as of this encounter
--- OUTSIDE RECORDS SUMMARY | 2024-09-07 05:22 | XMS_ITS | Encounter Summary ---
Author Organization [facility] Address [address] [place] [address]. [place] [id number] [place] [address] Care Team Providers Care Chart Picker Name Role Phone Tracy Olivares MD Primary Care Provider [phone] Nathan Baig MD Unavailable [phone] Reason for Visit * Reason Onset Date Comments Other 05/07/2024 Encounter Details Date Type Department Care Team (Late st Contact Info) Description 05/07/2024 Telephone [facility] Medical Group Multispecialty Care - [place] [address] [address] [place] [address] [place] [address] [place] [address] 157 [place] [address] Other Social History Tobacco Use Types Packs/Day Years [...] Progress Notes * Katharina Underwood MA - 05/09/2024 11:58 AM CDT Spoke to pt and let her know about the glucometer being sent in. Pt expressed v/u. * Mary Mcintyre - 05/07/2024 1:40 PM CDT Pt called in stating that she spoke with her insurance company and they will cover a blood testing device if the Doctor will send an order for it.pt stated that she thinks she needs it. The one they will cover is the [employer] . documented in this encounter Plan of Treatment Upcoming Encounters Date Type Department Care Team (Late st Contact Info) Description 10/03/2024 11:00 AM ALBERENE STONE SETTER Office Visit [facility] Medical Group Pulmonology Specialty Clinic - [address] [address] Nathan Baig MD [address] [address] 11/14/2024 10:20 AM ALBERENE STONE SETTER Office Visit [facility] Multispecialty Care - [place] [address] [address] [place] [address] Tracy Olivares MD [address] [place] [address] documented as of this encounter Visit Diagnoses Not on filedocumented in this encounter Additional Health Concerns Assessment Noted Time PHQ-9 Depression Total Score: 2 09/14/19 24 11:30 AM ALBERENE STONE SETTER documented as of this encounter Care Teams Chart Picker Relationship Specialty Start Date End Date Tracy Olivares MD [address] [place] [address] PCP - General INTERNAL MEDICINE 01/02/21 Nathan Baig MD 3 [facility] [address] [place] [address] Consulting Physician Internal Medicine Pulmonary Disease 09/16/21 documented as of this encounter
--- OUTSIDE RECORDS SUMMARY | 2024-09-07 05:22 | XMS_ITS | Encounter Summary ---
Author Organization [facility] Address [address] [place] [address]. [place], [place] [address] [place] [address] Care Team Providers Care Careers Counsellor Name Role Phone Tracy Olivares MD Primary Care Provider [phone] Nathan Baig MD Unavailable [phone] Encounter Details Date Type Department Care Team (Late Contact Info) Description 04/25/2024 Orders Only [facility] - [place] [address] [address] [place] [address] [place] [address] [place] [address] Social History Tobacco Use Types Packs/Day Years [...] (Late Contact Info) Description 10/03/2024 11:00 AM WELDER 2ND SHIFT Office Visit [facility] Pulmonology Specialty Clinic - [address] [address] Nathan Baig MD 3 [facility] [address] [place] [address] 11/14/2024 10:20 AM WELDER 2ND SHIFT Office Visit [facility] Multispecialty Care - [place] [address] [address] [place] [address] Tracy Olivares MD [id number] [address] [address] documented as of this encounter Visit Diagnoses Diagnosis Idiopathic peripheral neuropathy Unspecified hereditary and idiopathic peripheral neuropathy documented in this encounter Additional Health Concerns Assessment Noted Time PHQ-9 Depression Total Score: 2 09/14/19 24 11:30 AM WELDER 2ND SHIFT documented as of this encounter Care Teams Careers Counsellor Relationship Specialty Start Date End Date Tracy Olivares MD [address] [place] [address] PCP - General INTERNAL MEDICINE 01/02/21 Nathan Baig MD 3 [facility] [address] [place] [address] Consulting Physician Internal Medicine Pulmonary Disease 09/16/21 documented as of this encounter
--- OUTSIDE RECORDS SUMMARY | 2024-09-07 05:22 | XMS_ITS | Encounter Summary ---
Author Organization [facility] Address [address] [place] [address]. [place], [place] [address] [place] [address] Care Team Providers Care Real Estate Utilization Officer Name Role Phone Tracy Olivares MD Primary Care Provider [phone] Nathan Biag MD Unavailable [phone] Reason for Visit * Reason Onset Date Comments Lab Results 04/24/2024 Encounter Details Date Type Department Care Team (Late st Contact Info) Description 04/24/2024 Telephone [facility] Multispecialty Care - [place] [address] [address] [place] [address] [place] [address] [place] [address] 157 [place] [address] Lab Results Social History Tobacco [...] Progress Notes * Ilana Ochoa MA - 04/26/2024 9:25 AM CDT LVM with patient about her gabapentin. If any questions she can give us a call back * Kelsey Garcia MA - 04/25/2024 9:23 AM CDT I spoke to the patient and she said that she has never taken metformin and she also wants to cut back on the gabapentin. documented in this encounter Plan of Treatment Upcoming Encounters Date Type Department Care Team (Late st Contact Info) Description 10/03/2024 11:00 AM SOCIAL MEDIA ASSISTANT Office Visit [facility] Medical [facility] Pulmonology Specialty Clinic - [address] [address] Nathan Baig MD [address] [address] 11/14/2024 10:20 AM SOCIAL MEDIA ASSISTANT Office Visit [facility] Multispecialty Care - [place] [address] [address] [place] [address] Tracy Olivares MD [address] [place] [address] documented as of this encounter Visit Diagnoses Not on filedocumented in this encounter Additional Health Concerns Assessment Noted Time PHQ-9 Depression Total Score: 2 09/14/19 24 11:30 AM SOCIAL MEDIA ASSISTANT documented as of this encounter Care Teams Real Estate Utilization Officer Relationship Specialty Start Date End Date Tracy Olivares MD [address] [place] [address] PCP - General INTERNAL MEDICINE 01/02/21 Nathan Baig MD [address] [address] Consulting Physician Internal Medicine Pulmonary Disease 09/16/21 documented as of this encounter
--- OUTSIDE RECORDS SUMMARY | 2024-09-07 05:22 | XMS_ITS | Encounter Summary ---
Author Organization [facility] Address [address] [place] [address]. [place], [place] [address] [place] [address] Care Team Providers Care Express Manager Name Role Phone Trcay Olivares MD Primary Care Provider [phone] Nathan Baig MD Unavailable [phone] Marisel Mancini RN Unavailable [phone] Encounter Details Date Type Department Care Team (Latest Contact Info) Description 07/10/2024 Scan HEALTH INFO SRVCS Scanned, Doc Med [...] st Contact Info) Description 10/03/2024 11:00 AM MAIL RIDER Office Visit [facility] Medical Group Pulmonology Specialty Clinic - [address] [place] [address] Nathan Baig MD [address] [place] [address] 11/14/2024 10:20 AM MAIL RIDER Office Visit [facility] Medical Group Multispecialty Care - [place] [address] [address] [place] [address] Tracy Olivares MD [address] [address] documented as of this encounter Visit Diagnoses Not on filedocumented in this encounter Additional Health Concerns Assessment Noted Time PHQ-9 Depression Total Score: 2 09/14/19 24 11:30 AM MAIL RIDER documented as of this encounter Care Teams Express Manager Relationship Specialty Start Date End Date Tracy Olivares MD [address] [place] [address] PCP - General INTERNAL MEDICINE 01/02/21 Nathan Baig MD [address] [id number] Consulting Physician Internal Medicine Pulmonary Disease 09/16/21 Marisel Mancini, RN [address] [place] [address] Fur Cutter (Ambulatory) REGISTERED NURSE 06/28/24 08/07/24 documented as of this encounter
--- OUTSIDE RECORDS SUMMARY | 2024-09-07 05:22 | XMS_ITS | Encounter Summary ---
Author Organization [facility] [place] [facility] Address [address] [place] [address]. [place], [place] [address] [place] [address] Care Team Providers Care Tyre Fitter Name Role Phone Tracy Olivares MD Primary Care Provider [phone] Nathan Baig MD Unavailable [phone] Marisel Mancini RN Unavailable [phone] Reason for Visit * Reason Onset Date Comments Hospital Follow Up 06/28/2024 [facility] Admit 06/27/24- lumbar discitis Encounter Details Date Type Department Care Team (Latest Contact Info) Description 06/28/2024 Patient Outreach [facility] Medical Group Multispecialty Care - [address] [place] [address] Marisel Mancini, RN [address] [place] [address] Hospital Follow Up ( [facility] Admit 06/27/24- lumbar discitis) Social History Tobacco Use Types Packs/Day Years [...] of this encounter Progress Notes * Marisel A Ahner, RN - 06/28/2024 1:37 PM CDT Patient was admitted to [facility] on 06/27/24 with lumbar discitis. The CC team will follow this patient and will complete the TCM CB upon hospital discharge. documented in this encounter Plan of Treatment Upcoming Encounters Date Type Department Care Team (Late st Contact Info) Description 10/03/2024 11:00 AM ASSISTANT MEDIA PLANNER Office Visit [facility] Pulmonology Specialty Clinic - [address] [address] Nathan Baig MD [address] [address] 11/14/2024 10:20 AM ASSISTANT MEDIA PLANNER Office Visit [facility] Multispecialty Care - [place] [address] [address] [place] [address] Tracy Olivares MD [address] [place] [address] documented as of this encounter Visit Diagnoses Not on filedocumented in this encounter Additional Health Concerns Assessment Noted Time PHQ-9 Depression Total Score: 2 09/14/19 24 11:30 AM ASSISTANT MEDIA PLANNER documented as of this encounter Care Teams Tyre Fitter Relationship Specialty Start Date End Date Tracy Olivares MD [address] [place] [address] PCP - General INTERNAL MEDICINE 01/02/21 Nathan Baig MD [address] [address] Consulting Physician Internal Medicine Pulmonary Disease 09/16/21 Marisel Mancini RN [address] [place] [address] Rail Manager (Ambulatory) REGISTERED NURSE 06/28/24 08/07/24 documented as of this encounter
--- OUTSIDE RECORDS SUMMARY | 2024-09-07 05:22 | XMS_ITS | Encounter Summary ---
Author Organization [facility] Address [address] [place] [address]. [place] [id number] [place] [address] Care Team Providers Care Dietary Tech Name Role Phone Tracy Olivares MD Primary Care Provider [phone] Nathan Baig MD Unavailable [phone] Marisel Mancini RN Unavailable [phone] Reason for Visit * Reason Onset Date Comments Quality Gap Closure 07/03/2024 Encounter Details Date Type Department Care Team (Late st Contact Info) Description 07/03/2024 Telephone [facility] Medical Group Multispecialty Care [place] [address] [place] [address] [address] [place] [address] [place] [address] [place] [address] [address] [place], [place] [id number] Quality Gap Closure Social History Tobacco Use [...] Progress Notes * Nicole Cowart MA - 07/03/2024 9:42 AM CDT Calling this pt regarding the completion of the Urine Albumin-Creatine lab-pt stated they have an appt on 07/23/2024 documented in this encounter Plan of Treatment Upcoming Encounters Date Type Department Care Team (Late st Contact Info) Description 10/03/2024 11:00 AM FUR COAT SEWER Office Visit [facility] Medical [facility] Pulmonology Specialty Clinic - [address] [address] Nathan Baig MD [address] [address] 11/14/2024 10:20 AM FUR COAT SEWER Office Visit [facility] [place] [facility] Multispecialty Care - [place] [address] [address] [place] [address] Tracy Olivares MD [address] [place] [address] documented as of this encounter Visit Diagnoses Not on filedocumented in this encounter Additional Health Concerns Assessment Noted Time PHQ-9 Depression Total Score: 2 09/14/19 24 11:30 AM FUR COAT SEWER documented as of this encounter Care Teams Dietary Tech Relationship Specialty Start Date End Date Tracy Olivares MD [address] [place] [address] PCP - General INTERNAL MEDICINE 01/02/21 Nathan Baig MD [address] [address] Consulting Physician Internal Medicine Pulmonary Disease 09/16/21 Marisel Mancini, RN [address] [place] [address] School Social Worker (Ambulatory) REGISTERED NURSE 06/28/24 08/07/24 documented as of this encounter
--- OUTSIDE RECORDS SUMMARY | 2024-09-07 05:22 | XMS_ITS | Encounter Summary ---
Author Organization [facility] Address [address] [place] [address]. [place], [place] [address] [place] [address] Care Team Providers Care Candy Supervisor Name Role Phone Tracy Olivares MD Primary Care Provider [phone] Nathan Baig MD Unavailable [phone] Marisel Mancini RN Unavailable [phone] Reason for Visit * Reason Onset Date Comments Hospital Follow Up 2024 TCM Week #2 Encounter Details Date Type Department Care Team (Latest Contact Info) Description 2024 Patient Outreach [facility] Medical Group Multispecialty Care - [address] [place] [address] Marisel Mancini, RN [address] [place] [address] Hospital Follow Up (TCM Week #2) Social History Tobacco Use Types Packs/Day Years [...] Progress Notes * Marisel Mancini RN - 2024 10:18 AM CST Hospital Follow Up Call TCM Week: Week #2 Did patient attend PCP TCM appointment? To see PCP on 08/07/24 Brief description of patient status: Patient states she was in the ER recently, just a couple of days ago and had a new PICC line in. CC only sees an ER visit form 07/24/24 and nothing from 07/30/24.She continues with IV antibiotics as directed. Patient denies any issues with bowels or urination. Pain is controlled. Eating and drinking good. No SOB and no edema. Home health continues to see the patient, but states she hasn't see a therapist yet, only the nurse. CC reminded her to continue to wear the TLSO brace at all times and she stated she was just gettingready to put it on and knows she is suppose to be wearing it at all times. Patient still cannot check her FBS's, because the test strips and lancets were never ordered. CC will inform PCP office of this. No urgent needs voiced and she thanked CC for calling. Patient concerns or urgent matters that need addressed: Still in need of Free Style Sony Lite teststrips and lancets. Goals: Goals Establish Regular Follow-Ups with PCP Medications - able to self-administer medications Plan of Care: CC will continue to follow the patient by phone until she follows up with PCP and sheis agreeable. DATA ARCHITECT DATA ARCHITECT * Kelsey Peterson MA - 2024 10:18 AM CST She had one sent into her pharmacy at the end of May she will need to call her pharmacy for her refills. DATA ARCHITECT * Kelsey Peterson MA - 2024 10:18 AM CST Strips and lancets sent to pharmacy DATA ARCHITECT * Kelsey Peterson MA - 2024 10:18 AM CSTAddended by: KELSEY PETERSON on: 2024 03:36 PM Modules accepted: Orders DATA ARCHITECT documented in this encounter Plan of Treatment Upcoming Encounters Date Type Department Care Team (Late st Contact Info) Description 10/03/2024 11:00 AM ETL DATA ARCHITECT Office Visit [facility] Medical Group Pulmonology Specialty Clinic - [address] [address] Nathan Baig MD [address] [address] 11/14/2024 10:20 AM ETL DATA ARCHITECT Office Visit [facility] Multispecialty Care - [place] [address] [address] [place] [address] Tracy Olivares MD [address] [place] [address] documented as of this encounter Visit Diagnoses Diagnosis Type 2 diabetes mellitus with hyperglycemia, without long-term current use of insulin ([facility]) documented in this encounter Additional Health Concerns Assessment Noted Time PHQ-9 Depression Total Score: 2 09/14/19 24 11:30 AM ETL DATA ARCHITECT documented as of this encounter Care Teams Candy Supervisor Relationship Specialty Start Date End Date Tracy Olivares MD [address] [place] [address] PCP - General INTERNAL MEDICINE 01/02/21 Nathan Baig MD [address] [address] Consulting Physician Internal Medicine Pulmonary Disease 09/16/21 Marisel Mancini RN [address] [place] [address] Poultry Farmer Egg (Ambulatory) REGISTERED NURSE 06/28/24 08/07/24 documented as of this encounter
--- OUTSIDE RECORDS SUMMARY | 2024-09-07 05:22 | XMS_ITS | Encounter Summary ---
Author Organization [facility] Address [address] [place] [address]. [place] [id number] [place] [address] Care Team Providers Care Teaching Supervisor Name Role Phone Tracy Olivares MD Primary Care Provider [phone] Nathan Baig MD Unavailable [phone] Reason for Visit * Reason Onset Date Comments Pre-visit Gap Closure 06/25/2024 Encounter Details Date Type Department Care Team (Latest Contact Info) Description 06/25/2024 Patient Outreach [facility] Medical Group Multispecialty Care - [place] [address] [address] [place] [address] Tracy Olivares MD [address] [place] [address] [address] [place], [place] [phone] Pre-visit Gap Closure Social History Tobacco Use [...] encounter Progress Notes * Sushma Greene - 06/25/2024 10:12 AM CDT Preventive Screenings: Breast Cancer Screening: Up to Date Notes: 02/02/2023 Colorectal Cancer Screening: Up to Date Notes: 05/29/2020 Diabetic Eye Exam: Up to Date Notes: 02/02/2023 Falls Risk Screening: Up to Date Notes: Tobacco Cessation: Up to Date Notes: Labs: BMP/CMP: Up to Date Notes: Hemoglobin A1c: Up to Date Notes: Lipid: Up to Date Notes: Urine Albumin-Creatinine Ratio: Needs Follow Up Notes: Immunizations: Influenza: Needs Follow Up Notes: Pneumococcal: Up to Date Notes: Shingles: Needs Follow Up Notes: documented in this encounter Plan of Treatment Upcoming Encounters Date Type Department Care Team (Late st Contact Info) Description 10/03/2024 11:00 AM STEREOTYPER Office Visit [facility] Medical Group Pulmonology Specialty Clinic - [address] [address] Nathan Baig MD [address] [address] 11/14/2024 10:20 AM STEREOTYPER Office Visit [facility] Multispecialty Care - [place] [address] [address] [place] [address] Tracy Olivares MD [address] [place] [address] documented as of this encounter Visit Diagnoses Not on filedocumented in this encounter Additional Health Concerns Assessment Noted Time PHQ-9 Depression Total Score: 2 09/14/19 11:30 AM STEREOTYPER documented as of this encounter Care Teams Teaching Supervisor Relationship Specialty Start Date End Date Tracy Olivares MD [address] [place] [address] PCP - General INTERNAL MEDICINE 01/02/21 Nathan Baig MD [address] [address] Consulting Physician Internal Medicine Pulmonary Disease 09/16/21 documented as of this encounter
--- OUTSIDE RECORDS SUMMARY | 2024-09-07 05:22 | XMS_ITS | Encounter Summary ---
Author Organization [facility] Address [address] [place] [address]. [place], [place] [address] [place] [address] Care Team Providers Care Dual Rate Supervisor Name Role Phone Tracy Olivares MD Primary Care Provider [phone] Nathan Baig MD Unavailable [phone] Reason for Visit * Reason Onset Date Comments Medication 03/27/2024 Encounter Details Date Type Department Care Team (Late Contact Info) Description 03/27/2024 Telephone [facility] Multispecialty Care - [place] [address] [address] [place], [place] [phone] Tracy Olivares MD [address] [place] [id number] Medication Social History Tobacco Use Types Packs/Day [...] (Late Contact Info) Description 10/03/2024 11:00 AM WASTE BALER Office Visit [facility] Medical [facility] Pulmonology Specialty Clinic - [address] [place], [place] [address] Nathan Baig MD 3 [facility] [place] [place] [address] 11/14/2024 10:20 AM WASTE BALER Office Visit [facility] Medical Group Multispecialty Care - [place] [address] [address] [place] [address] Tracy Olivares MD [address] [address] documented as of this encounter Visit Diagnoses Diagnosis Type 2 diabetes mellitus with hyperglycemia, without long-term current use of insulin ([facility])- Primary documented in this encounter Additional Health Concerns Assessment Noted Time PHQ-9 Depression Total Score: 2 09/14/19 24 11:30 AM WASTE BALER documented as of this encounter Care Teams Dual Rate Supervisor Relationship Specialty Start Date End Date Tracy Olivares MD [address] [place] [address] PCP - General INTERNAL MEDICINE 01/02/21 Nathan Baig MD 3 [facility] [address] [address] [place] [address] Consulting Physician Internal Medicine Pulmonary Disease 09/16/21 documented as of this encounter
--- OUTSIDE RECORDS SUMMARY | 2024-09-07 05:22 | XMS_ITS | Encounter Summary ---
Author Organization [facility] Address [address] [place] [address]. [place] [id number] [place] [address] Care Team Providers Care Senior Mainframe Programmer Analyst Name Role Phone Tracy Olivares MD Primary Care Provider [phone] Nathan Baig MD Unavailable [phone] Marisel Mancini RN Unavailable [phone] Reason for Visit * Reason Comments Back Pain TCM Encounter Details Date Type Department Care Team (Latest Contact Info) Description 08/07/2024 11:20 AM NOZZLE AND SLEEVE WORKER Telemedicine [facility] Multispecialty Care - [place] [address] [address] [place] [address] [place] [address] [place] [address] [address] [place], [place] [id number] Back Pain; TCM (/) Social History Tobacco Use Types Packs/Day Years [...] - Inhaled Oxygen Concentration - - Weight 125.6 kg (277 lb) 08/07/2024 11:23 AM NOZZLE AND SLEEVE WORKER Height 157.5 cm (5' 2 ) 08/07/2024 11:23 AM NOZZLE AND SLEEVE WORKER Body Mass Index 50.66 08/07/2024 11:23 AM NOZZLE AND SLEEVE WORKER documented in this encounter Patient Instructions * Patient Instructions* Tracy Olivares MD - 08/07/2024 11:20 AM NOZZLE AND SLEEVE WORKER Follow up with neurosurgery in the next 3 months. Get your Chest xray done in 3 months as well. Wear your back brace as directed. [address] [place] [address] LE AND SLEEVE WORKER LE AND SLEEVE WORKER documented in this encounter Progress Notes * Tracy Olivares MD - 08/07/2024 11:20 AM CSTSummary: TCM notes TRANSITIONAL CARE MANAGEMENT NOTES Reason for Visit: No chief complaint on file. History of Present Illness: Transitional Care Note: Pt was admitted on: 05/28/2024 Pt was discharged on: 07/24/2024 Admit Diagnosis: Discitis/osteomyelitis Discharge Diagnosis: Discitis L4-L5/osteomyelitis Initial Nursing contact: See telephone encounter on: 2024. Discharge note from 07/24/2024 was reviewed. Medication at time of discharge reviewed. Current list of medications reviewed as well. In summary: Patient is [age]-year-old -[place] female with history of asthma, emphysema, hyperlipidemia, GERD, chronic low back pain, peripheral neuropathy and hypertension recently admitted initially at [facility] after originally presenting at [facility] for worsening low back pain with concerns for L4-L5 discitis/osteomyelitis currently on IV cefepime for total of 6 weeks here for hospital follow-up. Since Discharge: Keegan has been doing well. HPI: Patient is [age]-year-old -[place] female with history of asthma, emphysema, hyperlipidemia, GERD, chronic low back pain, peripheral neuropathy and [facility]. Patient had initially reached out to primary care provider's office at which time I did advise patient that given the severity of the pain ie limited ability to get out of bed to get to the emergency room to be evaluated, patient did go to the hospital and subsequently found to have L4-L5 discitis on MRI.Seen by infectious disease and recommendations made for IV cefepime for 6 weeks. Seen by neurosurgery but no interventions or surgeries. Recommendations made for follow- up with neurosurgery in 3 months with repeat x-rays of the back. Her vital signs were stable and pain was controlled. Subsequentlytransfer[facility] a detention facility. Home health has since been ordered for patient. She has a PICC line on the right. No fever or chills since discharge. Tolerating orals well. No diarrhea on antibiotics. No blood in stool. Not using any pain medications and declines any refills. She reportshas not done well on Osprey or tramadol as this causes excessive sedation. No recent falls. Denies any numbness or tingling in the lower extremities. She feels well overall. Currently supposed to wearher back brace and not consistently using it. I introduced and identified myself, received verbal consent from the patient to proceed with this video visit and made the patient aware that the same confidentiality and information clerk cashier practices apply. The patient joined the video visit from Home. I completed the virtual visit from Office. The following clinical staff helped with this visit MA: Najma Valladares Total Time Spent in Minutes: 30 Patient in the [facility] at time of this visit. ROS: Review of Systems Constitutional: Negative for chills, diaphoresis, fever, malaise/fatigue and weight loss. HENT: Negative. Eyes: Negative. Respiratory: Negative. Cardiovascular: Negative for chest pain, palpitations, orthopnea, claudication, leg swelling and PND. Gastrointestinal: Negative. Genitourinary: Negative. Musculoskeletal: Positive for back pain (Mild). Negative for falls, joint pain, myalgias and neck pain. Neurological: Negative. Medications: Current Outpatient Medications: acetaminophen (TYLENOL) 500 MG tablet, Take 1 tablet (500 mg total) by mouth every 6 (six) hours asneeded for Pain., Disp: , Rfl: albuterol sulfate HFA 108 (90 Base) MCG/ACT inhaler, Inhale 2 puffs into the lungs every 4 (four) hours as needed., Disp: 18 g, Rfl: 5 aspirin 81 MG tablet, Take 1 tablet (81 mg total) by mouth daily., Disp: , Rfl: atorvastatin (LIPITOR) 20 MG tablet, Take 1 tablet (20 mg total) by mouth nightly at bedtime. at bedtime, Disp: 90 tablet, Rfl: 1 Blood Gluc Meter Disp-Strips (BLOOD GLUCOSE METER DISPOSABLE) Device, Use daily to check blood sugar. Okay to substitute with whichever brand insurance will cover., Disp: 100 each, Rfl: 11 Blood Glucose Monitoring Suppl (ONE TOUCH ULTRA 2) w/Device Kit, Check blood sugar twice a day before meals., Disp: 1 kit, Rfl: 0 Blood Glucose Monitoring Suppl Kit, Use daily to check blood sugar. Okay to substitute with whichever one insurance will cover thank you., Disp: 1 kit, Rfl: 0 ceFEPIme (MAXIPIME) 2 GM/100ML IV SOLN, Inject 100 mLs (2 g total) into the vein every 12 (twelve) hours., Disp: , Rfl: cetirizine (ZYRTEC) 10 MG tablet, Take 1 tablet (10 mg total) by mouth daily., Disp: 90 tablet, Rfl: 3 Cholecalciferol 50 MCG (2000 UT) Tab, Take 1 tablet by mouth daily., Disp: , Rfl: empagliflozin (JARDIANCE) 25 MG tablet, Take 1 tablet (25 mg total) by mouth daily., Disp: 90 tablet, Rfl: 1 famotidine (PEPCID) 20 MG tablet, Take one tablet two times daily as needed for heart burn., Disp: 180 tablet, Rfl: 1 Zjnpqmzjdnf-Nkvyrlzwi-Huqgun (TRELEGY ELLIPTA) 100-62.5-25 MCG/ACT AEROSOL POWDER, BREATH ACTIVATED, Inhale 1 puff into the lungs daily., Disp: 180 each, Rfl: 3 gabapentin (NEURONTIN) 300 MG capsule, Take 1 capsule (300 mg total) by mouth nightly at bedtime., Disp: 90 capsule, Rfl: 1 Glucose Blood (FREESTYLE LITE) test strip, 1 strip by Other route as needed. Use as instructed, Disp: 100 strip, Rfl: 3 Glucose Blood test strip, Check blood sugar twice a day before meals., Disp: 300 strip, Rfl: 1 HYDROcodone-acetaminophen (NORCO) 5-325 MG tablet, Take 1 tablet by mouth every 4 (four) hours as needed for Pain., Disp: , Rfl: Lancets (ONETOUCH ULTRASOFT) lancets, Check blood sugar twice a day before meals., Disp: 100 each, Rfl: 1 Lancets [facility], Use daily to check blood sugar. Okay to substitute with whichever brand insurance will cover thank you., Disp: 100 each, Rfl: 11 lidocaine 4 % patch, Place 1 patch onto the skin every 12 (twelve) hours. Remove & Discard patch within 12 hours or as directed by MD, Disp: , Rfl: Magnesium Hydroxide (MILK OF MAGNESIA OR), Take 30 mLs by mouth daily as needed., Disp: , Rfl: melatonin 3 MG tablet, Take 1 tablet (3 mg total) by mouth nightly as needed., Disp: , Rfl: ONETOUCH VERIO test strip, , Disp: , Rfl: cyclobenzaprine (FLEXERIL) 10 MG tablet, Take 1 tablet (10 mg total) by mouth 3 (three) times dailyas needed for Muscle Spasms. (Patient not taking: Reported on 08/07/2024), Disp: , Rfl: Senna (SENOKOT) 8.6 MG tablet, Take 1 tablet (8.6 mg total) by mouth 2 (two) times daily as needed for Constipation. (Patient not taking: Reported on 08/07/2024), Disp: , Rfl: Current Outpatient Medications on File Prior to Visit Medication Sig acetaminophen (TYLENOL) 500 MG tablet Take 1 tablet (500 mg total) by mouth every 6 (six) hours as needed for Pain. albuterol sulfate HFA 108 (90 Base) MCG/ACT inhaler Inhale 2 puffs into the lungs every 4 (four) hours as needed. aspirin 81 MG tablet Take 1 tablet (81 mg total) by mouth daily. atorvastatin (LIPITOR) 20 MG tablet Take 1 tablet (20 mg total) by mouth nightly at bedtime. at bedtime Blood Gluc Meter Disp-Strips (BLOOD GLUCOSE METER DISPOSABLE) Device Use daily to check blood sugar. Okay to substitute with whichever brand insurance will cover. Blood Glucose Monitoring Suppl (ONE TOUCH ULTRA 2) w/Device Kit Check blood sugar twice a day before meals. Blood Glucose Monitoring Suppl Kit Use daily to check blood sugar. Okay to substitute with whichever one insurance will cover thank you. ceFEPIme (MAXIPIME) 2 GM/100ML IV SOLN Inject 100 mLs (2 g total) into the vein every 12 (twelve) hours. cetirizine (ZYRTEC) 10 MG tablet Take 1 tablet (10 mg total) by mouth daily. Cholecalciferol 50 MCG (2000 UT) Tab Take 1 tablet by mouth daily. empagliflozin (JARDIANCE) 25 MG tablet Take 1 tablet (25 mg total) by mouth daily. famotidine (PEPCID) 20 MG tablet Take one tablet two times daily as needed for heart burn. Scerrlzaohx-Fsahcyrhz-Nhvttu (TRELEGY ELLIPTA) 100-62.5-25 MCG/ACT AEROSOL POWDER, BREATH ACTIVATEDInhale 1 puff into the lungs daily. gabapentin (NEURONTIN) 300 MG capsule Take 1 capsule (300 mg total) by mouth nightly at bedtime. Glucose Blood (FREESTYLE LITE) test strip 1 strip by Other route as needed. Use as instructed Glucose Blood test strip Check blood sugar twice a day before meals. HYDROcodone-acetaminophen (NORCO) 5-325 MG tablet Take 1 tablet by mouth every 4 (four) hours as needed for Pain. Lancets (ONETOUCH ULTRASOFT) lancets Check blood sugar twice a day before meals. Lancets [facility] Use daily to check blood sugar. Okay to substitute with whichever brand insurance willcover thank you. lidocaine 4 % patch Place 1 patch onto the skin every 12 (twelve) hours. Remove & Discard patchwithin 12 hours or as directed by Magnesium Hydroxide (MILK OF MAGNESIA OR) Take 30 mLs by mouth daily as needed. melatonin 3 MG tablet Take 1 tablet (3 mg total) by mouth nightly as needed. ONETOUCH VERIO test strip cyclobenzaprine (FLEXERIL) 10 MG tablet Take 1 tablet (10 mg total) by mouth 3 (three) times daily as needed for Muscle Spasms. (Patient not taking: Reported on 08/07/2024) Senna (SENOKOT) 8.6 MG tablet Take 1 tablet (8.6 mg total) by mouth 2 (two) times daily as needed for Constipation. (Patient not taking: Reported on 08/07/2024) No current facility-administered medications on file prior to visit. Review of patient's allergies indicates: Allergen Reactions Celebrex [Celecoxib] Itching Propoxyphene Unknown Patient Active Problem List Diagnosis Current moderate episode of major depressive disorder ([facility]) Essential hypertension Gastroesophageal reflux disease Hearing loss Impaired glucose tolerance in obese Shoulder pain Chronic low back pain with bilateral sciatica Obesity Lumbar herniated disc FAISAL on CPAP Glaucoma Cataract Anxiety Knee pain Mixed hyperglyceridemia Prediabetes Other specified anemias RLS (restless legs syndrome) Mixed hyperlipidemia Moderate persistent asthma without complication ([facility]) manager intermediate (current) use of insulin ([facility]) Type 2 diabetes mellitus with hyperglycemia, without long-term current use of insulin ([facility]) Past Medical History: Diagnosis Date Anxiety Cataract Chronic low back pain COPD (chronic obstructive pulmonary disease) ([facility]) Depression Diabetes mellitus ([facility]) GERD (gastroesophageal reflux disease) Glaucoma Hearing loss left ear Hypertension Impaired glucose tolerance Obese FAISAL on CPAP Shoulder pain Sleep apnea Past Surgical History: Procedure Laterality Date CHOLECYSTECTOMY HAND SURGERY both hands HYSTERECTOMY Social History Socioeconomic History Marital status: Tobacco Use Smoking status: Former Current packs/day: 1.50 Types: Cigarettes Smokeless tobacco: Never Tobacco comments: Counseled by Dr. Olivares. Vaping Use Vaping status: Never Used Substance and Sexual Activity Alcohol use: Not Currently Drug use: Not Currently Sexual activity: Not Currently Social Drivers of Health Food Insecurity: No Food Insecurity (06/27/2024) Received from [place], [place] and [facility] Food Insecurity Social/Environmental Concerns: No concerns Transportation Needs: No Transportation Needs (06/27/2024) Received from [place] [place] and [facility] Transportation Needs Social/Environmental Concerns: No concerns Intimate Partner Violence: Not At Risk (06/27/2024) Received from [place], [place] and [facility] Feeling Safe Are you in a relationship with someone who hurts you emotionally and/or physically?: No Housing Stability: Low Risk (06/27/2024) Received from [place], [place] and [facility] Housing Stability Social/Environmental Concerns: No concerns Family History Problem Relation Name Age of Onset Diabetes Mother Cancer Father prostate, lymph node Prostate Cancer Father Hyperlipidemia Sister Hypertension Sister Other (diabetes) Sister Other (stomach issues) Brother Other (diverticular) Brother Diabetes Maternal Grandmother Diabetes Paternal Grandmother Glaucoma Paternal Grandmother Family Status Relation Name Status Mother Alive Father Sister (Not Specified) Brother (Not Specified) MGM (Not Specified) PGM (Not Specified) No partnership data on file Filed Vitals: 08/07/24 1123 Weight: 125.6 kg (277 lb) Height: 1.575 m (5' 2 ) Physical exam was limited as visit was done virtually Assessment & Plan: Diagnoses and all orders for this visit: 1. Discitis of lumbar region - Currently patient doing well. Home health has already been ordered. Complete IV antibiotics-IV cefepime for total of 6 weeks from 06/28/2024 through 08/09/2024. Currently has a PICC line which is managed by home health for antibiotics -Follow-up with infectious disease as directed. No plans for neurosurgical interventions at this time. -Continue to wear back brace as directed. Spinal precautions. Avoid heavy lifting of anything more than 10 pounds. Alternate Lidoderm patches. Discussed using her pain medications as needed. Patient tells me she has enough prescription. Lidoderm patches alternating with heating pads. Standing orderfor labs ordered for patient. - VENIPUNC ARM DRAW - CBC W/DIFF AUTOMATED; Standing - COMPREHENSIVE METABOLIC PANEL; Standing - C-REACTIVE PROTEIN; Standing - XR LUMB SPINE 3V; Future to be done in 3 months from now - Ambulatory referral to Neurosurgery ( [place]) 2. Chronic bilateral low back pain with bilateral sciatica -Same as in #1. 3. Epidural abscesses (CMS/HCC) -Same as in #1 -No plans for surgery by neurosurgery at this time -Follow-up in 3 months with neurosurgery -X-ray ordered to be done in 3 months -Follow-up precautions -Standing lab orders with home health Medication reconciliation performed: yes Tests pending at time of discharge reviewed: Yes Any needed follow up testing or specialty consultation: yes-referral neurosurgery. Referral home health Discussed how to reach us after office hours: yes Place exchange information in AVS yes Discussed healthcare directive/DPA for healthcare issues no 1. Medications/DME - Continue current medications. See orders. 2. Lab/Diagnostics - See orders. 3. Education - Current treatment discussed and patient education given as appropriate. 4. Referrals - Specialist referral: Home health, neurosurgery. 5. RTC - 1 month(s) I personally spent a total of 30 minutes on the day of the encounter. This includes eryv-mq-pick and iqu-pkzz-vk-face time I provided on the day of the encounter & excludes time spent performing separately reportable services. MD Tracy PASCAL MD Internal Medicine [facility], [facility]. LE AND SLEEVE WORKER LE AND SLEEVE WORKER documented in this encounter Plan of Treatment Upcoming Encounters Date Type Department Care Team (Late st Contact Info) Description 10/03/2024 11:00 AM NOZZLE AND SLEEVE WORKER Office Visit [facility] - [address] [address] Nathan Baig MD [address] [place] [address] 11/14/2024 10:20 AM NOZZLE AND SLEEVE WORKER Office Visit [facility] Multispecialty Care - [address] [place] [address] Tracy Olivares MD [facility] [address] Scheduled Orders Name Type Priority Associated Diagnoses Orde r Schedule CBC W/DIFF AUTOMATED Lab Routine Discitis of lumbar region Once a week for 1 Occurrences starting 08/07/2024 until 08/07/2025 COMPREHENSIVE METABOLIC PANEL Lab Routine Discitis of lumbar region Once a week for 1 Occurrences starting 08/07/2024 until 08/07/2025 C-REACTIVE PROTEIN Lab Routine Discitis of lumbar region Once a week for 1 Occurrences starting 08/07/2024 until 08/07/2025 XR LUMB SPINE 3V Imaging Routine Discitis of lumbar region Expected: 11/07/2024, Expires: 08/07/2025 documented as of this encounter Procedures Procedure Name Priority Date/Time Associated Diagnosis Comments VENIPUNC ARM DRAW Routine 08/07/2024 5:58 PM NOZZLE AND SLEEVE WORKER Discitis of lumbar region documented in this encounter Visit Diagnoses Diagnosis Discitis of lumbar region- Primary Other and unspecified disc disorder of lumbar region Chronic bilateral low back pain with bilateral sciatica Epidural abscess (HHS/HCC) Intracranial and intraspinal abscess of unspecified site documented in this encounter Additional Health Concerns Assessment Noted Time PHQ-9 Depression Total Score: 2 09/14/19 24 11:30 AM NOZZLE AND SLEEVE WORKER documented as of this encounter Care Teams Senior Mainframe Programmer Analyst Relationship Specialty Start Date End Date Tracy Olivares MD [address] [facility] [address] [place] [address] PCP - General INTERNAL MEDICINE 01/02/21 Nathan Baig MD [address] [id number] Consulting Physician Internal Medicine Pulmonary Disease 09/16/21 Marisel Mancini, RN [address] [place] [address] Salvage Determiner (Ambulatory) REGISTERED NURSE 06/28/24 08/07/24 documented as of this encounter
--- OUTSIDE RECORDS SUMMARY | 2024-09-07 05:23 | XMS_ITS | Encounter Summary ---
Author Organization [facility] Address [address] [place] [address]. [place], [place] [id number] [place] [address] Care Team Providers Care Clerical Support Name Role Phone Tracy Olivares MD Primary Care Provider [phone] Nathan Baig MD Unavailable [phone] Encounter Details Date Type Department Care Team (Latest Contact Info) Description 08/26/2023 Travel Social History Tobacco Use Types Packs/Day Years Used Date Smoking Tobacco: Former Cigarettes 1.5 30 0 [birth year]12/1954 - 09/12/1984 Smokeless Tobacco: Never Comments:counseled by Dr Carmenza lu Alcohol Use Standard Drinks/Week Comments Not Currently 0 (1 standard drink = 0.6 oz pur e alcohol) PHQ-2 Answer Date Recorded Patient Health Questionnaire-2 Score 4 07/05/2023 Comments No Sex and Gender Information Value Date Recorded Sex Assigned at Not on file Legal Sex Female 8:25 PM CDT Gender Identity Not on file Sexual Orientation Not on file documented as of this encounter Plan of Treatment Upcoming Encounters Date Type Department Care Team (Late st Contact Info) Description 10/03/2024 11:00 AM PLASTICS FABRICATOR OR WELDER Office Visit [facility] - [address] [place] [address] Nathan Baig MD [address] [place] [id number] 11/14/2024 10:20 AM PLASTICS FABRICATOR OR WELDER Office Visit [facility] Multispecialty Care - [address] [place] [address] Tracy Olivares MD [address] [place] [address] documented as of this encounter Visit Diagnoses Not on filedocumented in this encounter Additional Health Concerns Assessment Noted Time PHQ-9 Depression Total Score: 16 023 3:44 PM CDT documented as of this encounter Care Teams Clerical Support Relationship Specialty Start Date End Date Tracy Olivares MD [address] [place] [address] PCP - General INTERNAL MEDICINE 01/02/21 Nathan Baig MD [address] [address] Consulting Physician Internal Medicine Pulmonary Disease 09/16/21 documented as of this encounter
--- OUTSIDE RECORDS SUMMARY | 2024-09-07 05:23 | XMS_ITS | Encounter Summary ---
Author Organization [facility] Address [address] [place] [address]. [place] [id number] [place], [place] [id number] Care Team Providers Care Classified Advertising Supervisor Name Role Phone Tracy Olivares MD Primary Care Provider [phone] Nathan Baig MD Unavailable Reason for Visit * Reason Comments Joint Pain/Shoulder region Pain Hip/ Limb * Physical Medicine (Routine) - Pending Review Specialty Diagnoses / Procedures Referred By Heidi iverson Referred To Contact PHYSICAL THERAPY / [facility] Physical Therapy Diagnoses Hip pain, bilateral Bilateral shoulder pain Procedures OFFICE/OUTPATIENT NEW LOW MDM 30-44 MINUTES OFFICE/OUTPT VISIT,NEW,LEVL IV OFFICE/OUTPT VISIT,NEW,LEVL V OFFICE/OUTPT VISIT,EST,LEVL III OFFICE/OUTPT VISIT,EST,LEVL IV OFFICE/OUTPT VISIT,EST,LEVL V Tracy Olivares MD [address] [facility] [address] [place] [address] Phone: tel: fax: [facility] [address] [place] [address] Phone: tel: fax: Referral ID Status Reason Start Date Expiration Date Visits Requested Visits Authorized [id number] Pending Review Physical Therapy 12/16/2023 01/14/2025 12 12 Encounter Details Date Type Department Care Team (Latest Contact Info) Description 12/23/2023 11:00 AM CDT Office Visit [facility] [address] [facility] [address] [place], [place] [id number] Tracy Olivares MD [address] [facility] [address] [place], [place] [id number] Ly Collado, [place] [address] Joint Pain/Shoulder region; Pain Hip/ Limb (/) Social History Tobacco Use Types Packs/Day Years Used Date Smoking Tobacco: Former Cigarettes 1.5 30 0 09/12/1954 - 09/12/1984 Smokeless Tobacco: Never Alcohol Use Standard Drinks/Week Comments Not Currently 0 (1 standard drink = 0.6 oz pur e alcohol) PHQ-2 Answer Date Recorded Patient Health Questionnaire-2 Score 0 09/14/2023 Comments No Sex and Gender Information Value Date Recorded Sex Assigned at Not on file Legal Sex Female 8:25 PM CDT Gender Identity Not on file Sexual Orientation Not on file documented as of this encounter Patient Instructions * Patient Instructions* Ly Collado, PT - 12/23/2023 11:00 AM CDT Access Code: [email or web address] URL: [email or web address] Date: 12/23/2023 Prepared by: Ly Collado Exercises - Supine Bridge with Mini Sammarinese Ball Between Knees - 1 x daily - 7 x weekly - 2 sets - 10 reps - Hooklying Single Knee to Chest Stretch with Towel - 1 x daily - 7 x weekly - 10 reps - Supine Shoulder Flexion with Dowel - 1 x daily - 7 x weekly - 1 sets - 10 reps - Seated Shoulder External Rotation AAROM with Cane and Hand in Neutral - 1 x daily - 7 x weekly - 1-2 sets - 10 reps - Seated Scapular Retraction - 1 x daily - 7 x weekly - 1-2 sets - 10 reps - Seated Diaphragmatic Breathing - 1 x daily - 7 x weekly - 10 reps documented in this encounter Progress Notes * Ly Collado, PT - 12/23/2023 11:00 AM CDT Physical Therapy Evaluation Date: 12/23/2023 Patient Name: Keegan Amaya : 1955 Diagnosis: Encounter Diagnose(s) ICD-10-CM SNOMED CT(R) 1. Chronic shoulder pain M25.519 SHOULDER PAIN G89.29 2. Hip pain M25.559 HIP PAIN 3. OA (osteoarthritis) of shoulder M19.019 DEGENERATIVE JOINT DISEASE OF SHOULDER REGION 4. Shoulder tendonitis M77.8 TENDINITIS OF SHOULDER REGION Time in: 1120 Time out: 1220 See Outpatient Questionnaire for full patient subjective. Subjective: History of present condition:the patient is a 68 yo female with complaints of shoulder and hip pain. She relates long history of pain. She is familiar to PT department. She had injectionsto both shoulders and her left is much better but her right shoulder is only a bit better. She continues to get shoulder pain with certain movements or too much use. She is unsure when it began but she went to the ER in November. Mechanism of injury: unknown Pain: current 4-5/10 best 0/10 worst 10/10 Location of pain: top of her right shoulder, right hip posteriorly and right knee Quality of pain: aching Alleviating factors:injections have helped Exacerbating factors: too much movement, standing Prior level of function(PLOF):reduced due to pain and now she is concerned meds are making her eat and she is trying to lose weight. 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 Head: fwd Thoracic spine: kyphotic Humeral head: more fwd and anterior on right Shoulder position: IR bilaterally, right shoulder fwd and lower Gait: reduced movement in pelvis and increased trunk swing noted. Palpation: tender to anterior shoulder on right and to posterior capsule and cuff. Right greater trochanter tendon Shoulder AROM/PROM Flexion: Rt. 130 pain Lt. 130 Abduction: Rt. 95 pain Lt. 120 IR BTB: Rt. Glute fold pain Lt. Mid lumbar ER BTH: Rt. C4 flexed head stiff Lt. C4 flexed head PROM: ER supine: Rt 90 Lt 85 IR supine: Rt 30 stiff Lt 50 Strength: Shoulder: Flexion: Rt. 3 Lt. 4- Abduction: Rt. 3 Lt. 4- ER: Rt. 3 Lt. 4- IR: Rt. 3 Lt. 4- Scapular: Deferred testing today due to pain with position Rhomboids: NT Mid Trap: NT Lower Trap: NT Cervical Screen: AROM: WNL no complaints with shoulder symptoms. Special tests: Virk Gray Impingement: pain on right Shoulder scouring: guarded Empty Can: negative Hip AROM: Flex: Rt 85 increased hip and back pain Lt 100 Ext: reduced to neutral Rotation WNL both hips Hip strength: 3/5 throughout right hip with pain with flex and abduction 4-/5 on left SL stance: poor bilaterally with pelvic drop noted. Suspected pelvic floor dysfunction contributing to hip pain due to issues with bladder mentioned today but not assessed. Physical Therapy Certification Form - Joint Treatment Today: Initial Evaluation completed with patient education on evaluation findings and plan of care HEP instruction: education regarding stress and medication in regards to weight. Education on breathing to calm her nervous system to aid with healing. Education regarding listing of calming activities she enjoys to use when she thinks she needs to eat. Shoulder AAROM flex and ER, shoulder retraction and bridges. Outcome tool: LEFS and SPADI Score: 39/80 and 85/130 Neuro Reeducation see flow sheet Therapy Exercise see flow sheet Timed Code Tx Minutes 30 Units 2 Total Tx Time 60 15 Therapeutic Exercise, 15 Neuromuscular Re-ed, 30 High Therapy Diagnosis: Pain in Joint - right shoulder joint, hip joint, and knee joint Pain in Area - right arm leg Stiffness- right shoulder joint and hip joint Muscle weakness (generalized- multiple) Falling, repeated Other Abnormalities of Gait and Mobility (Pain/Weakness/Instability/unsteady) Patient demonstrated Good understanding of above education and HEP. Rehab Potential Good Assessment: The patient is a 68 yo female that presents today for physical therapy due to shoulder pain and right hip pain. She demonstrates impairments of shoulder AROM and PROM, shoulder weakness, hip AROM and hip strength, altered gait and bed mobility. These impairments limit the patient's ability to stand for long periods, use her UE with ADL's and home acitivites and walk long distances. The patient will benefit from skilled PT to include therapeutic exercise and activities, manual therapy, and neuro-reeducation, and modalities as needed to reduce symptoms, improve function and promote self management. Short Term Goals: to be met in 6-8 visits Increase ROM/ flexibility of right shoulder flexion and abduction and right hip flexion Good Posture/body Mechanics to aide with healing Decrease pain 25-50% with use of right UE Understand location and action of pelvic floor muscles to aid with reduced hip and back pain. Television Parts Tester Goals: to be met at DC: Independent HEP Decrease pain 50-75% for increased use around the house. Functional Gait pattern/equal weight bearing with improved pelvic movement and hip extension. Increase strength right shoulder with improved ROM to 4-4+/5 and glutes to 4/5 Other: Improved perceived disability with spadi > 13 points and LEFS > 9 points Assessment Eval Complexity Personal Factor/Co-morbidities: 3 or more (High) BMI, Chronicity, Coping Styles, Diabetic Status, Fear of Movement, HTN Examination of Body Systems Needing Addressed: 4 or more (High) Balance or Coordination Deficits, Bed Mobility Deficits, LE Deficits, Muscle Tension, Standing Deficits, UE Deficits Clinical Presentation of Patient: Unstable (High) Unpredictable and unstable characteristics - Falls - current and frequent Incontinence Clinical Decision Making: High Patient to be seen for: balance, biofeedback, body mechanics education, flexibilty, gait, home exercise program, instruction in self-help/behavior modification, manual therapy, modalities, neuromuscular reeducation, posture education, PRN, ROM, strengthening Next Visit: Review HEP and patient education. Shoulder isometrics and scapular activation, hip mobility, pelvic floor education. Frequency: 1-2 times per 8-12 week for 30-60 minutes a session for a total of 12 visits. Therapist: Ly Collado PT Date: 12/23/23 Time: 5:19 PM Physician Signature: Date: Time: Patient Name: Keegan Amaya : 1955 Cosigned by Tracy Olivares MD at 12/26/2023 12:33 PM CDT documented in this encounter Plan of Treatment Upcoming Encounters Date Type Department Care Team (Late st Contact Info) Description 10/03/2024 11:00 AM STRATEGIC ACCOUNTS MANAGER Office Visit [facility] - [address] [address] Nathan Baig MD [address] [address] 11/14/2024 10:20 AM STRATEGIC ACCOUNTS MANAGER Office Visit [facility] - [place] [address] [address] [place] [address] Tracy Olivares MD [address] [place] [address] documented as of this encounter Visit Diagnoses Diagnosis Chronic shoulder pain- Primary Pain in joint, shoulder region Hip pain Pain in joint, pelvic region and thigh OA (osteoarthritis) of shoulder Shoulder tendonitis documented in this encounter Additional Health Concerns Assessment Noted Time PHQ-9 Depression Total Score: 2 09/14/19 24 11:30 AM STRATEGIC ACCOUNTS MANAGER documented as of this encounter Care Teams Classified Advertising Supervisor Relationship Specialty Start Date End Date Tracy Olivares MD [address] [place] [address] PCP - General INTERNAL MEDICINE 01/02/21 Nathan Baig MD [address] [address] Consulting Physician Internal Medicine Pulmonary Disease 09/16/21 documented as of this encounter
--- OUTSIDE RECORDS SUMMARY | 2024-09-07 05:23 | XMS_ITS | Encounter Summary ---
Author Organization [facility] Address [address] [place] [address]. [place], [place] [id number] [place] [address] Care Team Providers Care Dermatology Procedural Physician Name Role Phone Tracy Olivares MD Primary Care Provider [phone] Nathan Baig MD Unavailable [phone] Marisel Mancini RN Unavailable [phone] Encounter Details Date Type Department Care Team (Late Contact Info) Description 02/08/2024 [email or web address] Message Enc [facility] Medical [facility] - [place] [address] [facility] [address] [place] [address] Stephanie, [facility] Provider Xray results Social History Tobacco Use Types Packs/Day Years [...] (Late Contact Info) Description 10/03/2024 11:00 AM EPOXY FABRICATION SUPERVISOR Office Visit [facility] Medical [facility] - [place] [address] [address] [place] [address] Nathan Baig MD 3 [facility] [address] [place] [address] 11/14/2024 10:20 AM EPOXY FABRICATION SUPERVISOR Office Visit [facility] Medical [facility] Multispecialty Care - [place] [address] [address] [place] [address] Tracy Olivares MD [address] [address] documented as of this encounter Visit Diagnoses Not on filedocumented in this encounter Additional Health Concerns Assessment Noted Time PHQ-9 Depression Total Score: 2 09/14/19 24 11:30 AM EPOXY FABRICATION SUPERVISOR documented as of this encounter Care Teams Dermatology Procedural Physician Relationship Specialty Start Date End Date Tracy Olivares MD [address] [place] [address] PCP - General INTERNAL MEDICINE 01/02/21 Nathan Baig MD 3 [facility] [address] [place] [address] Consulting Physician Internal Medicine Pulmonary Disease 09/16/21 Marisel Mancini, RN [address] [place] [address] Specimen Transporter (Ambulatory) REGISTERED NURSE 06/28/24 08/07/24 documented as of this encounter
--- OUTSIDE RECORDS SUMMARY | 2024-09-07 05:23 | XMS_ITS | Encounter Summary ---
Author Organization [facility] Address [address] [place] [address]. [place], [place] [address] [place] [address] Care Team Providers Care Computer Clerk Name Role Phone Tracy Olivares MD Primary Care Provider [phone] Nathan Baig MD Unavailable [phone] Encounter Details Date Type Department Care Team (Latest Contact Info) Description 02/27/2024 Travel Social History Tobacco Use Types Packs/Day [...] st Contact Info) Description 10/03/2024 11:00 AM SHOP LABORER Office Visit [facility] Medical Group [facility] - [place] [address] [address] [facility] [address] [place] [address] Nathan Baig MD [address] [place] [address] 11/14/2024 10:20 AM SHOP LABORER Office Visit [facility] Medical [facility] Multispecialty Care - [place] [address] [address] [facility] [address] [place] [address] Tracy Olivares MD [address] [facility] [address] [place] [address] documented as of this encounter Visit Diagnoses Not on filedocumented in this encounter Additional Health Concerns Assessment Noted Time PHQ-9 Depression Total Score: 2 09/14/19 24 11:30 AM SHOP LABORER documented as of this encounter Care Teams Computer Clerk Relationship Specialty Start Date End Date Tracy Olivares MD 1188 [facility] [address] [place] [address] PCP - General INTERNAL MEDICINE 01/02/21 Nathan Baig MD [address] [address] Consulting Physician Internal Medicine Pulmonary Disease 09/16/21 documented as of this encounter
--- OUTSIDE RECORDS SUMMARY | 2024-09-07 05:23 | XMS_ITS | Encounter Summary ---
Author Organization [facility] - [facility] Address [address] [place] [address]. [place], [place] [address] [place] [id number] Care Team Providers Care Fly Setter Name Role Phone Tracy Olivares MD Primary Care Provider [phone] Nathan Baig MD Unavailable [phone] Reason for Visit * Reason Comments UTI Encounter Details Date Type Department Care Team (Late st Contact Info) Description 02/01/2024 2:00 PM CDT Office Visit [facility] Multispecialty [facility] - [place] [address] [facility] [address] [place], [place] [id number] Keri Rosario, MECHANICAL PRESS OPERATOR [address] [place], [place] [id number] UTI Social History Tobacco Use Types Packs/Day Years [...] Sign Reading Time Taken Comments Blood Pressure 118/86 02/01/2024 1:54 PM CDT Pulse 82 02/01/2024 1:54 PM CDT Temperature 36.3 ??C (97.3 ??F) 02/01/2024 1:54 PM CD T Respiratory Rate 18 02/01/2024 1:54 PM CDT Oxygen Saturation 98% 02/01/2024 1:54 PM CDT Inhaled Oxygen Concentration - - Weight 126.1 kg (278 lb) 02/01/2024 1:54 PM CDT Height 160 cm (5' 3 ) 02/01/2024 1:54 PM CDT Body Mass Index 49.25 02/01/2024 1:54 PM CDT documented in this encounter Patient Instructions * Patient Instructions* Keri Rosario NP - 02/01/2024 2:00 PM CDT Miralax for constipation If iron causes constipation may try every other day Overactive bladder Tea with dinner No liquids 2-3 hours before bedtime Trial Gemtesa Start pelvic floor PT Back pain Xrays after fall Celebrex as needed May alternate with Tylenol 500 (Take 2) every 8 hours as needed for pain documented in this encounter Progress Notes * Keri Rosario NP - 02/01/2024 2:00 PM CDTSummary: UTI Images from the original note were not included. Internal Medicine Outpatient Progress Note CC:Low back pain, lower abdominal pain HPI: Keegan Amaya is a 68-year-old female who presents to concern for UTI. Reports anurgency, incontinence unable to make it to the bathroom. Trying to lose weight is on watch watchersstates she lost some weight and felt the heaviness in her abdomen was better which relieved pressure off her back and bladder. She has gained some of it back and is more uncomfortable. States she urinates more often at night but does drink water late in the evening. Also has tea with dinner. She was told by her OBGYN Dr. Macias she has a prolapsed bladder after her hysterectomy. Denies burning with urination. Pelvic floor PT was ordered she has not started treatment yet. Also reports worsening pain in her low back/tailbone area. Pain bothers her when she turns over at night. Taking Celebrex for her shoulder pain which helps some and Gabapentin 200mg BID. Did have a fall about 6 months ago when she was stepping up to get on a sidewalk. No images completed after the fall. Prior injections with pain management in [place] with some relief, most recent injections at [facility] caused a strange sensation in her legs right after procedure so she is fearful of having more shots. Dr. Colleen GAMBOA also ordered mammogram and bone density Patient has history of below: Patient Active Problem List Diagnosis Current moderate episode of major depressive disorder ([facility]) Essential hypertension Gastroesophageal reflux disease Hearing loss Impaired glucose tolerance in obese Shoulder pain Chronic low back pain with bilateral sciatica Obesity Lumbar herniated disc FAISAL on CPAP Glaucoma Cataract Anxiety Knee pain Mixed hyperglyceridemia Prediabetes Other specified anemias RLS (restless legs syndrome) Mixed hyperlipidemia Moderate persistent asthma without complication ([facility]) Review of Systems Constitutional: Negative. HENT: Negative. Eyes: Negative. Respiratory: Negative. Cardiovascular: Negative. Genitourinary: Positive for frequency and pelvic pain. Pulling/heaviness from abdomen Musculoskeletal: Positive for back pain. Neurological: Negative. Psychiatric/Behavioral: Negative. Past Medical History: Past Medical History: Diagnosis Date Anxiety Cataract Chronic low back pain COPD (chronic obstructive pulmonary disease) ([facility]) Depression Diabetes mellitus ([facility]) GERD (gastroesophageal reflux disease) Glaucoma Hearing loss left ear Hypertension Impaired glucose tolerance Obese FAISAL on CPAP Shoulder pain Family History: Family History Problem Relation Name Age of Onset Diabetes Mother Cancer Father prostate, lymph node Prostate Cancer Father Hyperlipidemia Sister Hypertension Sister Other (diabetes) Sister Other (stomach issues) Brother Other (diverticular) Brother Diabetes Maternal Grandmother Diabetes Paternal Grandmother Glaucoma Paternal Grandmother Social History: Social History Tobacco Use Smoking status: Former Current packs/day: 0.00 Average packs/day: 1.5 packs/day for 30.0 years (45.0 ttl pk-yrs) Types: Cigarettes Start date: 09/12/1954 Quit date: 09/12/1984 Years since quittin.4 Smokeless tobacco: Never Vaping Use Vaping status: Never Used Substance Use Topics Alcohol use: Not Currently Drug use: Not Currently Medications: Outpatient Medications Marked as Taking for the 02/01/24 encounter (Office Visit) with Keri Rosario NP Medication Sig Dispense Refill ACETAMINOPHEN EXTRA STRENGTH 500 MG tablet Take 1 tablet (500 [...] at bedtime. at bedtime 90 tablet 1 AZELASTINE 137 MCG/SPRAY nasal spray Please specify directions, refills and quantity (Patient taking differently: 1 spray by Nasal route as needed for Rhinitis.) 30 mL 0 celecoxib (CELEBREX) 200 MG capsule Take 1 capsule (200 mg total) by mouth daily. cetirizine (ZYRTEC) 10 MG tablet Take 1 tablet (10 mg total) by mouth daily. 90 tablet 3 diphenhydrAMINE-zinc (BENADRYL EXTRA STRENGTH) 2-0.1 % Cream cream Use twice daily on skin to help with itching. 28 g 1 empagliflozin (JARDIANCE) 10 MG tablet Take 1 tablet (10 mg total) by mouth daily. 90 tablet 1 esomeprazole (NEXIUM) 40 MG capsule TAKE 1 CAPSULE BY MOUTH EVERY DAY FOR 1 MONTH famotidine (PEPCID) 20 MG tablet TAKE 1 TABLET BY MOUTH 2 TIMES DAILY NEEDED FOR HEARTBURN. 180 tablet 1 fluticasone propionate (FLONASE) 50 MCG/ACT nasal spray 2 sprays by Nasal route daily. 16 g 5 Xrgzkbweckd-Dgvdqvulg-Ymtgaz (TRELEGY ELLIPTA) 100-62.5-25 MCG/ACT AEROSOL POWDER, BREATH ACTIVATEDInhale 1 puff into the lungs daily. 180 each 3 gabapentin (NEURONTIN) 100 MG capsule Take 200 mg in the morning, 200 mg in the afternoon and 300 mg at bedtime 180 capsule 1 losartan-hydroCHLOROthiazide (HYZAAR) 100-12.5 MG tablet Take 1 tablet by mouth daily. (Patient taking differently: Take 1 tablet by mouth daily. Indications: states it makes her sleepy when taking with pain and muscle relaxers.) 90 tablet 3 pantoprazole EC (PROTONIX) 40 MG tablet pantoprazole 40 mg tablet,delayed release TAKE 1 TABLET BY MOUTH EVERY DAY IN THE MORNING 90 tablet 1 tiZANidine (ZANAFLEX) 4 MG tablet Take 0.5 tablets (2 mg total) by mouth nightly at bedtime. at bedtime 90 tablet 1 vibegron (GEMTESA) 75 MG tablet Take 1 tablet (75 mg total) by mouth daily. 30 tablet 2 Allergies: Review of patient's allergies indicates: Propoxyphene ? Objective: Filed Vitals: 02/01/24 1354 BP: 118/86 Pulse: 82 Resp: 18 Temp: 97.3 ??F (36.3 ??C) TempSrc: Oral SpO2: 98% Weight: 126.1 kg (278 lb) Height: 1.6 m (5' 3 ) Body mass index is 49.25 kg/m??. Physical Exam Constitutional: Appearance: Normal appearance. Eyes: Conjunctiva/sclera: Conjunctivae normal. Cardiovascular: Rate and Rhythm: Normal rate and regular rhythm. Heart sounds: Normal heart sounds. No murmur heard. Pulmonary: Effort: Pulmonary effort is normal. No respiratory distress. Breath sounds: Normal breath sounds. No wheezing. Abdominal: Comments: Obese, soft, BS active, non-tender Skin: General: Skin is warm and dry. Neurological: Mental Status: She is alert. Psychiatric: Mood and Affect: Mood normal. Judgment: Judgment normal. Assessment and Plan: 1. Chronic bilateral low back pain with bilateral sciatica -Order images to be completed after fall -Try Gabapentin 300mg at bedtime -Declines pain management consult at this time - XR LUMB SPINE 3V; Future - XR SACRUM+COCCYX MIN 2V; Future 2. Fall (on) (from) unspecified stairs and steps, initial encounter - XR LUMB SPINE 3V; Future - XR SACRUM+COCCYX MIN 2V; Future 3. Overactive bladder -UA negative for infection, suspect symptoms worse related to prolapse and OAB -She will proceed with pelvic floor PT -Declines urology referral at this time - Decrease liquid intake in the evening, no tea after lunch - vibegron (GEMTESA) 75 MG tablet; Take 1 tablet (75 mg total) by mouth daily. Dispense: 30 tablet;Refill: 2 - URINALYSIS, AUTO, COMPLETE Side effects and less common but more severe adverse effects of recommended medical therapies were explained to the patient. Patient reminded to use MyChart or telephone follow up prn if symptoms change, worsen, or persist, or if side effect of treatment is experienced. RTC in March as scheduled DRAGON: This dictation was at least in part performed using [employer] speak and there may be some inherent flaws in this industrial engineering director due to the nature of this program. KERI ROSARIO NP 02/01/2024 [facility]. documented in this encounter Plan of Treatment Upcoming Encounters Date Type Department Care Team (Late st Contact Info) Description 10/03/2024 11:00 AM HAIRSPRING SETTER Office Visit [facility] - [address] [address] Nathan Baig MD [address] [place] [address] 11/14/2024 10:20 AM HAIRSPRING SETTER Office Visit [facility] Multispecialty Care - [place] [address] [address] [place] [address] [place] [address] [place] [address] documented as of this encounter Procedures Procedure Name Priority Date/Time Associated Diagnosis Comments URINALYSIS, AUTO, COMPLETE Routine 02/01/2024 Overactive bladder documented in this encounter Results * XR SACRUM+COCCYX MIN 2V (02/03/2024 10:58 AM CDT) Anatomical Region Laterality Modality Spine Radiographic Zeynep ging 02/03/2024 11:5 5 AM CDT Impressions 02/03/2024 11:58 AM CDT IMPRESSION: 1. No acute osseous abnormality. 2. Degenerative changes as described. Ordered By: KERI ROSARIO Interpreted By: Lebron Forbes MD, 02/03/2024 11:55 AM Narrative 02/03/2024 11:58 AM CDT Examination: XR LUMB SPINE 3V, XR SACRUM+COCCYX MIN 2V Exam time: 02/03/2024 10:58 AM Clinical history: Chronic bilateral low back pain with bilateral sciatica Comparison: No prior exam Technique: AP, lateral, and lumbosacral views lumbar spine. AP, axial, and lateral views sacrum and coccyx. Findings: On the L1 vertebra, there is elongated transverse processes, left greater than right consistent with developmental variation. Significant facet joint arthritic changes present throughout the lumbar spine and is most prominent at the L3-4 and L4-5 levels. There is minimal anterolisthesis of L3 on L4 most consistent with facet joint degenerative change. Mild decrease intervertebral disc height L5-S1 level. Moderate anterior minimal posterior vertebral body endplate spurring L5 level. Minimal anterior vertebral body endplate spurring throughout the lumbar spine. There is no evidence of fracture or acute osseous abnormality throughout the lumbar spine. No evidence of fracture or acute osseous abnormality throughout the sacrum or coccyx. Visualized sacral ala appear intact. Sacroiliac joints appear within normal limits. Procedure Note Lebron Forbes MD - 02/03/2024 Examination: XR LUMB SPINE 3V, XR SACRUM+COCCYX MIN 2V Exam time: 02/03/2024 10:58 AM Clinical history: Chronic bilateral low back pain with bilateralsciatica Comparison: No prior exam Technique: AP, lateral, and lumbosacral views lumbar spine. AP, axial, andlateral views sacrum and coccyx. Findings: On the L1 vertebra, there is elongated transverse processes,left greater than right consistent with developmental variation. Significant facet joint arthritic changes present throughout the lumbarspine and is most prominent at the L3-4 and L4-5 levels. There is minimalanterolisthesis of L3 on L4 most consistent with facet joint degenerativechange. Mild decrease intervertebral disc height L5-S1 level. Moderateanterior minimal posterior vertebral body endplate spurring L5 level.Minimal anterior vertebral body endplate spurring throughout the lumbarspine. There is no evidence of fracture or acute osseous abnormality throughoutthe lumbar spine. No evidence of fracture or acute osseous abnormality throughout the sacrumor coccyx. Visualized sacral ala appear intact. Sacroiliac joints appearwithin normal limits. IMPRESSION: 1. No acute osseous abnormality. 2. Degenerative changes as described. Ordered By: KERI ROSARIO Interpreted By: Lebron Forbes MD, 02/03/2024 11:55 AM Keri Rosario MECHANICAL PRESS OPERATOR GENERAL IMAGING Final Resul t * XR LUMB SPINE 3V (02/03/2024 10:58 AM CDT) Anatomical Region Laterality Modality Spine Radiographic Zeynep ging 02/03/2024 11:5 5 AM CDT Impressions 02/03/2024 11:58 AM CDT IMPRESSION: 1. No acute osseous abnormality. 2. Degenerative changes as described. Ordered By: KERI ROSARIO Interpreted By: Lebron Forbes MD, 02/03/2024 11:55 AM Narrative 02/03/2024 11:58 AM CDT Examination: XR LUMB SPINE 3V, XR SACRUM+COCCYX MIN 2V Exam time: 02/03/2024 10:58 AM Clinical history: Chronic bilateral low back pain with bilateral sciatica Comparison: No prior exam Technique: AP, lateral, and lumbosacral views lumbar spine. AP, axial, and lateral views sacrum and coccyx. Findings: On the L1 vertebra, there is elongated transverse processes, left greater than right consistent with developmental variation. Significant facet joint arthritic changes present throughout the lumbar spine and is most prominent at the L3-4 and L4-5 levels. There is minimal anterolisthesis of L3 on L4 most consistent with facet joint degenerative change. Mild decrease intervertebral disc height L5-S1 level. Moderate anterior minimal posterior vertebral body endplate spurring L5 level. Minimal anterior vertebral body endplate spurring throughout the lumbar spine. There is no evidence of fracture or acute osseous abnormality throughout the lumbar spine. No evidence of fracture or acute osseous abnormality throughout the sacrum or coccyx. Visualized sacral ala appear intact. Sacroiliac joints appear within normal limits. Procedure Note Lebron Forbes MD - 02/03/2024 Examination: XR LUMB SPINE 3V, XR SACRUM+COCCYX MIN 2V Exam time: 02/03/2024 10:58 AM Clinical history: Chronic bilateral low back pain with bilateralsciatica Comparison: No prior exam Technique: AP, lateral, and lumbosacral views lumbar spine. AP, axial, andlateral views sacrum and coccyx. Findings: On the L1 vertebra, there is elongated transverse processes,left greater than right consistent with developmental variation. Significant facet joint arthritic changes present throughout the lumbarspine and is most prominent at the L3-4 and L4-5 levels. There is minimalanterolisthesis of L3 on L4 most consistent with facet joint degenerativechange. Mild decrease intervertebral disc height L5-S1 level. Moderateanterior minimal posterior vertebral body endplate spurring L5 level.Minimal anterior vertebral body endplate spurring throughout the lumbarspine. There is no evidence of fracture or acute osseous abnormality throughoutthe lumbar spine. No evidence of fracture or acute osseous abnormality throughout the sacrumor coccyx. Visualized sacral ala appear intact. Sacroiliac joints appearwithin normal limits. IMPRESSION: 1. No acute osseous abnormality. 2. Degenerative changes as described. Ordered By: KERI ROSARIO Interpreted By: Lebron Forbes MD, 02/03/2024 11:55 AM Keri Rosario MECHANICAL PRESS OPERATOR GENERAL IMAGING Final Resul t * (ABNORMAL) URINALYSIS, AUTO, COMPLETE (02/01/2024) COLOR (U) YELLOW YELLOW [address], [place] TRANSPARENCY CLEAR CLEAR MG[address], [place] GLUCOSE (U) 500 mg/dl(A) NEGATIVE MG/DL MG[address], [place] BILIRUBIN (U) NEGATIVE NEGATIVE MG-[address], [place] KETONES MG/DL (U) NEGATIVE NEGATIVE MG/DL MG[address], [place] SPECIFIC GRAVITY (U) 1.015 1.001 - 1.035 MG[address], [place] BLOOD (U) NEGATIVE NEGATIVE MG[address], [place] U PH 6.0 5.0 - 9.0 MG[address], [place] PROTEIN (U) NEGATIVE NEGATIVE mg/dL MG-[address], [place] UROBILINOGEN 0.2 0.2 - 1.0 EU/dL = mg/dL MG-[address], [place] NITRITES NEGATIVE NEGATIVE MG/DL MG[address], [place] LEUKOCYTES (U) NEGATIVE NEGATIVE MG-[address], [place] URINE SPECIMEN OBTAINED BY CLEAN CATCH PROCEDURE / Unknown 02/01/2024 us Keri Rosario MECHANICAL PRESS OPERATOR URINE ORDERABLES Final Resu lt MG[address], [facility] [address] [facility] [address] [place] [address], documented in this encounter Visit Diagnoses Diagnosis Overactive bladder- Primary Hypertonicity of bladder Chronic bilateral low back pain with bilateral sciatica Fall (on) (from) unspecified stairs and steps, initial encounter documented in this encounter Additional Health Concerns Assessment Noted Time PHQ-9 Depression Total Score: 2 09/14/19 24 11:30 AM HAIRSPRING SETTER documented as of this encounter Care Teams Fly Setter Relationship Specialty Start Date End Date Tracy Olivares MD [address] [facility] [address] [place] [address] PCP - General INTERNAL MEDICINE 01/02/21 Nathan Baig MD [address] [address] Consulting Physician Internal Medicine Pulmonary Disease 09/16/21 documented as of this encounter
--- OUTSIDE RECORDS SUMMARY | 2024-09-07 05:23 | XMS_ITS | Encounter Summary ---
Author Organization [facility] Address [address] [place] [address]. [place], [place] [address] [place] [address] Care Team Providers Care Farm Consultant Name Role Phone Tracy Olivares MD Primary Care Provider [phone] Nathan Baig MD Unavailable [phone] Reason for Visit * Consultation (Routine) - Closed Specialty Diagnoses / Procedures Referred By Contoziel t Referred To Contact NUTRITION / [facility] Diabetes and Nutrition Diagnoses Class 3 severe obesity due to excess calories without serious comorbidity with body mass index (BMI) of 50.0 to 59.9 in adult (CMS/HCC [facility]) Procedures OFFICE/OUTPATIENT NEW LOW MDM 30-44 MINUTES OFFICE/OUTPT VISIT,NEW,LEVL IV OFFICE/OUTPT VISIT,NEW,LEVL V OFFICE/OUTPT VISIT,EST,LEVL III OFFICE/OUTPT VISIT,EST,LEVL IV OFFICE/OUTPT VISIT,EST,LEVL V Tracy Olivares MD [address] [facility] [address] [place] [address] Phone: tel: fax: [facility] [address] [place] [address] Phone: tel: fax: Referral ID Status Reason Start Date Expiration Date Visits Re quested Visits Authorized [id number] Closed 06/08/2023 07/08/2024 99 [phone] Encounter Details Date Type Department Care Team (Latest Contact Info) Description 07/18/2023 8:34 AM HAND BOOKED FOLDER AND STITCHER - 07/18/2023 11:59 PM HAND BOOKED FOLDER AND STITCHER Hospital Encounter [facility] [address] [place] [address] Tracy Olivares MD [address] [facility] [address] [place] [address] Alexandria Lu, MIGUEL A Discharge Disposition: Home or Self Care (Routine Discharge) Social History Tobacco Use Types Packs/Day Years [...] on file documented as of this encounter Medications at Time of Discharge aspirin 81 MG tablet Take 1 tablet (81 mg total) by mouth daily. cetirizine (ZYRTEC) 10 MG tabletIndications:S easonal allergies Take 1 tablet (10 mg total) by mouth daily. 90 tablet 3 3 ONETOUCH VERIO test strip 1 albuterol sulfate HFA 108 (90 Base) MCG/ACT inhalerIndications: Seasonal allergic rhinitis due to pollen Inhale 2 puffs into the lungs every 4 (four) hours as needed. 18 g 5 3 03/20/20 atorvastatin (LIPITOR) 20 MG tabletIndications:M ixed hyperlipidemia Take 1 tablet (20 mg total) by mouth nightly at bedtime. at bedtime 90 tablet 1 3 03/20/20 24 AZELASTINE 137 MCG/SPRAY nasal sprayIndications:Se asonal allergic rhinitis due to pollen Please specify directions, refills and quantity 30 mL 2 07/11/20 24 celecoxib (CELEBREX) 200 MG capsuleIndications: Breast pain, left Take 1 capsule (200 mg total) by mouth daily. 10 capsule 3 07/29/20 23 ciclopirox (PENLAC) 8 % solution 2 07/29/20 23 diphenhydrAMINE-zin c (BENADRYL EXTRA STRENGTH) 2-0.1 % Cream creamIndications:Pr uritus Use twice daily on skin to help with itching. 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 90 tablet 1 3 07/29/20 23 esomeprazole (NEXIUM) 40 MG capsule TAKE 1 CAPSULE BY MOUTH EVERY DAY FOR 1 MONTH 3 07/29/20 23 famotidine (PEPCID) 20 MG tabletIndications:G astroesophageal reflux disease without esophagitis Take 1 tablet (20 mg total) by mouth 2 (two) times daily as needed for Heartburn. 180 tablet 1 3 10/23/19 24 fluticasone propionate (FLONASE) 50 MCG/ACT nasal sprayIndications:Se asonal allergic rhinitis due to pollen 2 sprays by Nasal route daily. 16 g 5 2 07/11/20 24 Fluticasone-Umeclid in-Vilant (TRELEGY ELLIPTA) 100-62.5-25 MCG/ACT AEROSOL POWDER, BREATH ACTIVATEDIndication s:Pulmonary emphysema, unspecified emphysema type ([facility] HHS/[facility]) Inhale 1 puff into the lungs daily. 180 each 3 3 03/20/20 24 gabapentin (NEURONTIN) 100 MG capsuleIndications: Idiopathic peripheral neuropathy Take 200 mg in the morning, 200 mg in the afternoon and 300 mg at bedtime 180 capsule 1 3 12/16/19 24 JANUVIA 100 MG tablet 3 07/29/20 23 losartan-hydroCHLOR Othiazide (HYZAAR) 100-12.5 MG tabletIndications:E ssential hypertension Take 1 tablet by mouth daily. 90 tablet 3 3 02/08/20 24 meclizine 12.5 MG tabletIndications:V ertigo Take 1 tablet (12.5 mg total) by mouth nightly as needed. 20 tablet 1 07/11/20 24 meloxicam (MOBIC) 15 MG tablet Take 1 tablet (15 mg total) by mouth daily. 3 02/01/20 24 pantoprazole EC (PROTONIX) 40 MG tabletIndications:G astroesophageal reflux disease without esophagitis pantoprazole 40 mg tablet,delayed release TAKE 1 TABLET BY MOUTH EVERY DAY IN THE MORNING 90 tablet 1 3 02/20/20 24 SITagliptin (JANUVIA) 50 MG tabletIndications:P rediabetes Take 1 tablet (50 mg total) by mouth daily. 90 tablet 1 3 09/14/19 24 tiZANidine (ZANAFLEX) 4 MG tabletIndications:C hronic bilateral low back pain with bilateral sciatica Take 0.5 tablets (2 mg total) by mouth nightly at bedtime. at bedtime 90 tablet 1 3 02/22/20 24 traMADol (ULTRAM) 50 MG tabletIndications:C hronic Pain Take 1 tablet (50 mg total) by mouth 2 (two) times daily as needed for Pain. Indications: Chronic Pain 60 tablet 2 07/29/20 23 Vitamin D, Cholecalciferol, 50 MCG (1999 UT) CapIndications:Samanta min D deficiency Take 1,000 Units by mouth daily. 30 capsule 1 10/20/19 24 documented as of this encounter Progress Notes * Alexandria Lu, MIGUEL A - 07/18/2023 9:00 AM CST DIETITIAN OUTPATIENT MEDICAL NUTRITION THERAPY REPORT Patient: Keegan Amaya : 1955 Date of visit: July 18, 2023 Total Visit Time: 15 minutes Individual(s) educated: [x] Patient [] Spouse/ significant other [] Family member [] Caregiver Assessment: Re-Assessment - virtual NUTRITION ASSESSMENT CLIENT HISTORY Age: 67-year-old female Past Medical History: Diagnosis Date Anxiety Cataract Chronic low back pain COPD (chronic obstructive pulmonary disease) (HHS/HCC) ([facility]/HCC) Depression Diabetes mellitus (HHS/HCC) ([facility]/HCC) GERD (gastroesophageal reflux disease) Glaucoma Hearing loss left ear Hypertension Impaired glucose tolerance Obese FAISAL on CPAP Shoulder pain ANTHROPOMETRICS Height: Ht Readings from Last 1 Encounters: 01/07/23 1.613 m (5' 3.5 ) Weight: Wt Readings from Last 3 Encounters: 07/05/23 130.4 kg (287 lb 6.4 oz) 01/07/23 130 kg (286 lb 9.6 oz) 11/30/22 130 kg (286 lb 9.6 oz) BIOCHEMICAL DATA, TESTS, PROCEDURES HGB A1C Date Value Ref Range Status 01/07/2023 5.6 <5.7 % of total Hgb Final Comment: For the purpose of screening for the presence of diabetes: <5.7% Consistent with the absence of diabetes 5.7-6.4% Consistent with increased risk for diabetes (prediabetes) > or =6.5% Consistent with diabetes This assay result is consistent with a decreased risk of diabetes. Currently, no consensus exists regarding use of hemoglobin A1c for diagnosis of diabetes in children. According to [place] [employer] Association (ADA) guidelines, hemoglobin A1c <7.0% represents optimal control in non- diabetic patients. Different metrics may apply to specific patient populations. Standards of Medical Care in Diabetes(ADA). CHOLESTEROL Date Value Ref Range Status 01/07/2023 133 <200 mg/dL Final LDL (CALCULATED) Date Value Ref Range Status 01/07/2023 54 mg/dL (calc) Final Comment: Reference range: <100 Desirable range <100 mg/dL for primary prevention; <70 mg/dL for patients with CHD or diabetic patients with > or = 2 CHD risk factors. LDL-C is now calculated using the Buddy-Akhil calculation, which is a validated novel method providing better accuracy than the Friedewald equation in the estimation of LDL-C. Buddy ANAND et al. PORTER. 2013;310(19): 9893-5238 (http://education.[employer].Appwiz/faq/NFQ942) HDL Date Value Ref Range Status 01/07/2023 65 > OR = 50 mg/dL Final TRIGLYCERIDES Date Value Ref Range Status 01/07/2023 63 <150 mg/dL Final FOOD AND NUTRITION-RELATED HISTORY Patient has not reviewed educational handouts from previous visit and is not meeting goals or combining her meals appropriate since her previous visit. NUTRITION DIAGNOSIS Food and nutrition related knowledge deficit related to lack of prior sufficient education as evidenced by patient expressing confusion over appropriate eating pattern for health related condition and goals. (Continue) NUTRITION INTERVENTION Nutrition education providing recommended modifications. Nutrition Prescription: 2-3 servings carbohydrate per meal and 1 servings carbohydrate per snack Teaching methods: Provided written and visual handouts and verbally reviewed handouts. Food models and food labels used. Materials provided: Planning Healthy Meals, Snack Smart (sent again) MONITORING/EVALUATION Patient's goals are to review the handouts sent and to adhere to nutrition related recommendations/prescription. She is to combine appropriate nutrient dense food groups as educated at meals and snacks. This to assist with her goals to lose weight and lower A1C. Weight loss of 0.-1 lbs. per week towards a 7-10% weight loss from baseline weight. Follow-up plan: one month RD contact information provided. Patient encouraged to call or e-mail with any nutrition related questions. ALEXANDRIA LU RD 07/18/23, 10:17 AM BOOKED FOLDER AND STITCHER documented in this encounter Plan of Treatment Upcoming Encounters Date Type Department Care Team (Late st Contact Info) Description 10/03/2024 11:00 AM HAND BOOKED FOLDER AND STITCHER Office Visit [facility]ty [facility] - [address] [address] Nathan Baig MD [address] [place] [address] 11/14/2024 10:20 AM HAND BOOKED FOLDER AND STITCHER Office Visit [facility] Multispecialty Care - [place] [address] [address] [place] [address] Tracy Olivares MD [address] [place] [address] documented as of this encounter Visit Diagnoses Not on filedocumented in this encounter Additional Health Concerns Assessment Noted Time PHQ-9 Depression Total Score: 16 023 3:44 PM CDT documented as of this encounter Care Teams Farm Consultant Relationship Specialty Start Date End Date Tracy Olivares MD [address] [facility] [address] [place] [address] PCP - General INTERNAL MEDICINE 01/02/21 Nathan Baig MD [address] [address] Consulting Physician Internal Medicine Pulmonary Disease 09/16/21 documented as of this encounter
--- OUTSIDE RECORDS SUMMARY | 2024-09-07 05:23 | XMS_ITS | Encounter Summary ---
Author Organization [facility] Address [address] [place] [address]. [place], [place] [address] [place] [address] Care Team Providers Care Textile Dyer Name Role Phone Tracy Olivares MD Primary Care Provider [phone] Nathan Baig MD Unavailable [phone] Reason for Visit * Reason Onset Date Comments Medication Problem 02/17/2023 Encounter Details Date Type Department Care Team (Late st Contact Info) Description 02/17/2023 Telephone [facility] Medical [facility] Multispecialty Care - [place] [address] [address] [place] [address] [place] [address] [place] [address] [address] [place] [address] Medication Problem Social History Tobacco Use Types Packs/Day Years Used Date Smoking Tobacco: Former Cigarettes 1.5 30 0 [birth year]12/1954 - 09/12/1984 Smokeless Tobacco: Never Comments:counseled by Dr Carmenza lu Alcohol Use Standard Drinks/Week Comments Not Currently 0 (1 standard drink = 0.6 oz pur e alcohol) PHQ-2 Answer Date Recorded Patient Health Questionnaire-2 Score 3 01/07/2023 Comments No Sex and Gender Information Value Date Recorded Sex Assigned at Not on file Legal Sex Female 8:25 PM CDT Gender Identity Not on file Sexual Orientation Not on file COVID-19 Exposure Response Date Recorded In the last 10 days, have yo u been in contact with someone who was confirmed or suspected to have Coronavirus/COVID-19? No / Unsure 02/14/2023 1:38 PM CDT documented as of this encounter Progress Notes * Nadia Nayak MA - 02/17/2023 2:51 PM CDT Called pt and informed her to take Januvia 50mg, cut 100mg in half, script sent into pharmacy. Pt states she will try that for a little while * Tracy Olivares MD - 02/17/2023 2:37 PM CDT Advise to decrease to 50 mg Januvia daily. * Bahman Conrad - 02/17/2023 10:23 AM CDT Patient called and stated that she wants to discontinue her Januvia due to craving sweets and trouble standing for long periods of time. She also states that she doesn't feel as though she needs thismedication as she is not diabetic . Please advise. Thank you. documented in this encounter Plan of Treatment Upcoming Encounters Date Type Department Care Team (Late st Contact Info) Description 10/03/2024 11:00 AM DIFFERENTIAL TESTER Office Visit [facility] Pulmonology Specialty Clinic - [address] [address] Nathan Baig MD [address] [address] 11/14/2024 10:20 AM DIFFERENTIAL TESTER Office Visit [facility] Multispecialty Care - [address] [place] [address] Tracy Olivares MD [address] [place] [address] [address] [place] [address] documented as of this encounter Visit Diagnoses Diagnosis Prediabetes Other abnormal glucose documented in this encounter Additional Health Concerns Assessment Noted Time PHQ-9 Depression Total Score: 11 023 1:30 PM CDT documented as of this encounter Care Teams Textile Dyer Relationship Specialty Start Date End Date Tracy Olivares MD [address] [address] PCP - General INTERNAL MEDICINE 01/02/21 Nathan Baig MD [address] [address] Consulting Physician Internal Medicine Pulmonary Disease 09/16/21 documented as of this encounter
--- OUTSIDE RECORDS SUMMARY | 2024-09-07 05:23 | XMS_ITS | Encounter Summary ---
Author Organization [facility] Address [address] [place] [address]. [place], [place] [address] [place] [address] Care Team Providers Care Hotel Custodian Name Role Phone Tracy Olivares MD Primary Care Provider [phone] Nathan Baig MD Unavailable [phone] Encounter Details Date Type Department Care Team (Latest Contact Info) Description 02/03/2024 Travel Social History Tobacco Use Types Packs/Day [...] st Contact Info) Description 10/03/2024 11:00 AM ALLIGATOR SHEAR OPERATOR Office Visit [facility] Pulmonology Specialty Clinic - [place] [address] [address] [facility] [address] [place] [address] Nathan Baig MD [address] [place] [address] 11/14/2024 10:20 AM ALLIGATOR SHEAR OPERATOR Office Visit [facility] Medical [facility] Multispecialty Care - [place] [address] [address] [place] [address] Tracy Olivares MD [address] [address] documented as of this encounter Visit Diagnoses Not on filedocumented in this encounter Additional Health Concerns Assessment Noted Time PHQ-9 Depression Total Score: 2 09/14/19 24 11:30 AM ALLIGATOR SHEAR OPERATOR documented as of this encounter Care Teams Hotel Custodian Relationship Specialty Start Date End Date Tracy Olivares MD [facility] [address] [address] PCP - General INTERNAL MEDICINE 01/02/21 Nathan Baig MD [address] [address] Consulting Physician Internal Medicine Pulmonary Disease 09/16/21 documented as of this encounter
--- OUTSIDE RECORDS SUMMARY | 2024-09-07 05:23 | XMS_ITS | Encounter Summary ---
Author Organization [facility] Address [address] [place] [address]. [place], [place] [address] [place] [address] Care Team Providers Care Rural Service Engineer Name Role Phone Tracy Olivares MD Primary Care Provider [phone] Nathan Baig MD Unavailable [phone] Encounter Details Date Type Department Care Team (Latest Contact Info) Description 10/18/2023 Travel Social History Tobacco Use Types Packs/Day [...] st Contact Info) Description 10/03/2024 11:00 AM BRANCH EXAMINER Office Visit [facility] Pulmonology Specialty Clinic - [place] [address] [address] [facility] [address] [place] [address] Nathan Baig MD [address] [place] [address] 11/14/2024 10:20 AM BRANCH EXAMINER Office Visit [facility] Multispecialty Care - [place] [address] [address] [place] [address] Tracy Olivares MD [address] [address] documented as of this encounter Visit Diagnoses Not on filedocumented in this encounter Additional Health Concerns Assessment Noted Time PHQ-9 Depression Total Score: 2 09/14/19 24 11:30 AM BRANCH EXAMINER documented as of this encounter Care Teams Rural Service Engineer Relationship Specialty Start Date End Date Tracy Olivares MD [facility] [address] PCP - General INTERNAL MEDICINE 01/02/21 Nathan Baig MD [address] [address] Consulting Physician Internal Medicine Pulmonary Disease 09/16/21 documented as of this encounter
--- OUTSIDE RECORDS SUMMARY | 2024-09-07 05:23 | XMS_ITS | Encounter Summary ---
Author Organization [facility] Address [address] [place] [address]. [place] [address] [place] [address] Care Team Providers Care Filling Hauler Weaving Name Role Phone Tracy Olivares MD Primary Care Provider [phone] Nathan Baig MD Unavailable [phone] Marisel Mancini RN Unavailable [phone] Encounter Details Date Type Department Care Team (Late Contact Info) Description 03/14/2024 Equity Endeavorhart Message Enc [facility] Multispecialty Care - [place] [address] [place] [address] Alesia Rosario, OPTICAL INSTRUMENT ASSEMBLER [address] [place] [address] call Social History Tobacco Use Types Packs/Day Years [...] (Late Contact Info) Description 10/03/2024 11:00 AM GAS SCRUBBER OPERATOR Office Visit [facility] Pul[facility]ology Specialty Clinic - [address] [address] Nathan Baig MD [address] [address] 11/14/2024 10:20 AM GAS SCRUBBER OPERATOR Office Visit [facility] Multispecialty Care - [place] [address] [address] [place] [address] Tracy Olivares MD [facility] [address] [address] documented as of this encounter Visit Diagnoses Not on filedocumented in this encounter Additional Health Concerns Assessment Noted Time PHQ-9 Depression Total Score: 2 09/14/19 24 11:30 AM GAS SCRUBBER OPERATOR documented as of this encounter Care Teams Filling Hauler Weaving Relationship Specialty Start Date End Date Tracy Olivares MD [address] [place] [address] PCP - General INTERNAL MEDICINE 01/02/21 Nathan Baig MD [address] [address] Consulting Physician Internal Medicine Pulmonary Disease 09/16/21 Marisel Mancini RN [address] [place] [address] Police Magistrate (Ambulatory) REGISTERED NURSE 06/28/24 08/07/24 documented as of this encounter
--- OUTSIDE RECORDS SUMMARY | 2024-09-07 05:23 | XMS_ITS | Encounter Summary ---
Author Organization [facility] Address [address] [place] [address]. [place], [place] [address] [place] [address] Care Team Providers Care Primary Class Teacher Name Role Phone Tracy Olivares MD Primary Care Provider [phone] Nathan Baig MD Unavailable [phone] Encounter Details Date Type Department Care Team (Latest Contact Info) Description 03/05/2024 Travel Social History Tobacco Use Types Packs/Day [...] Contact Info) Description 10/03/2024 11:00 AM CERTIFIED PROFESSIONAL MIDWIFE Office Visit [facility] Medical [facility] Pulmonology Specialty Clinic - [place] [address] [address] [facility] [address] [place] [address] Nathan Baig MD [address] [place] [address] 11/14/2024 10:20 AM CERTIFIED PROFESSIONAL MIDWIFE Office Visit [facility] Multispecialty Care - [place] [address] [address] [facility] [address] [place] [address] Tracy Olivares MD [address] [facility] 157 [place] [address] documented as of this encounter Visit Diagnoses Not on filedocumented in this encounter Additional Health Concerns Assessment Noted Time PHQ-9 Depression Total Score: 2 09/14/19 24 11:30 AM CERTIFIED PROFESSIONAL MIDWIFE documented as of this encounter Care Teams Primary Class Teacher Relationship Specialty Start Date End Date Tracy Olivares MD 118[address] [facility] 157 [place] [address] PCP - General INTERNAL MEDICINE 01/02/21 Nathan Baig MD [address] [address] Consulting Physician Internal Medicine Pulmonary Disease 09/16/21 documented as of this encounter
--- OUTSIDE RECORDS SUMMARY | 2024-09-07 05:23 | XMS_ITS | Encounter Summary ---
Author Organization [facility] Address [address] [place] [address]. [place], [place] [address] [place] [address] Care Team Providers Care Shell Worker Name Role Phone Tracy Olivares MD Primary Care Provider [phone] Nathan Baig MD Unavailable [phone] Reason for Visit * Reason Onset Date Comments Information 02/29/2024 Encounter Details Date Type Department Care Team (Late Contact Info) Description 02/29/2024 Telephone [facility] Multispecialty Care - [place] [address] [address] [place] [address] Tracy Olivares MD [address] [place] [address] Information Social History Tobacco Use Types [...] (Late Contact Info) Description 10/03/2024 11:00 AM ASSEMBLER FLEXIBLE LEADS Office Visit [facility] Medical [facility] Pulmonology Specialty Clinic - [address] [place], [place] [address] Nathan Baig MD 3 [facility] [address] [place] [address] 11/14/2024 10:20 AM ASSEMBLER FLEXIBLE LEADS Office Visit [facility] Medical [facility] Multispecialty Care - [place] [address] [address] [place] [address] Tracy Olivares MD [address] [place] [address] documented as of this encounter Visit Diagnoses Not on filedocumented in this encounter Additional Health Concerns Assessment Noted Time PHQ-9 Depression Total Score: 2 09/14/19 24 11:30 AM ASSEMBLER FLEXIBLE LEADS documented as of this encounter Care Teams Shell Worker Relationship Specialty Start Date End Date Tracy Olivares MD [address] [place] [address] PCP - General INTERNAL MEDICINE 01/02/21 Nathan Baig MD [address] [address] Consulting Physician Internal Medicine Pulmonary Disease 09/16/21 documented as of this encounter
--- OUTSIDE RECORDS SUMMARY | 2024-09-07 05:23 | XMS_ITS | Encounter Summary ---
Author Organization [facility] [place] [facility] Address [address] [place] [address]. [place], [place] [address] [place] [address] Care Team Providers Care Labeling Associate Name Role Phone Tracy Olivares MD Primary Care Provider [phone] Nathan Baig MD Unavailable [phone] Encounter Details Date Type Department Care Team (Latest Contact Info) Description 01/16/2024 Travel Social History Tobacco Use Types Packs/Day [...] st Contact Info) Description 10/03/2024 11:00 AM PRESS SET UP Office Visit [facility] - [place] [address] [address] [facility] [address] [place] [address] Nathan Baig MD [address] [place] [address] 11/14/2024 10:20 AM PRESS SET UP Office Visit [facility] Multispecialty Care [place] [address] [address] [place] [address] Tracy Olivares MD [address] [address] documented as of this encounter Visit Diagnoses Not on filedocumented in this encounter Additional Health Concerns Assessment Noted Time PHQ-9 Depression Total Score: 2 09/14/19 24 11:30 AM PRESS SET UP documented as of this encounter Care Teams Labeling Associate Relationship Specialty Start Date End Date Tracy Olivares MD [facility] [address] [address] PCP - General INTERNAL MEDICINE 01/02/21 Nathan Baig MD [address] [address] Consulting Physician Internal Medicine Pulmonary Disease 09/16/21 documented as of this encounter
--- OUTSIDE RECORDS SUMMARY | 2024-09-07 05:23 | XMS_ITS | Encounter Summary ---
Author Organization [facility] Address [address] [place] [address]. [place], [place] [address] [place] [address] Care Team Providers Care Baffle Mounter Name Role Phone Tracy Olivares MD Primary Care Provider [phone] Nathan Baig MD Unavailable [phone] Encounter Details Date Type Department Care Team (Latest Contact Info) Description 07/05/2023 Travel Social History Tobacco Use Types Packs/Day [...] st Contact Info) Description 10/03/2024 11:00 AM LOCOMOTIVE OPERATOR HELPER Office Visit [facility] - [address] [place] [address] Nathan Baig MD [address] [place] [address] 11/14/2024 10:20 AM LOCOMOTIVE OPERATOR HELPER Office Visit [facility] Multispecialty Care - [address] [place] [address] Tracy Olivares MD [address] [place] [address] documented as of this encounter Visit Diagnoses Not on filedocumented in this encounter Additional Health Concerns Assessment Noted Time PHQ-9 Depression Total Score: 16 023 3:44 PM CDT documented as of this encounter Care Teams Baffle Mounter Relationship Specialty Start Date End Date Tracy Olivares MD [address] [place] [address] PCP - General INTERNAL MEDICINE 01/02/21 Nathan Baig MD [address] [address] Consulting Physician Internal Medicine Pulmonary Disease 09/16/21 documented as of this encounter
--- OUTSIDE RECORDS SUMMARY | 2024-09-07 05:23 | XMS_ITS | Encounter Summary ---
Author Organization [facility] Address [address] [place] [address]. [place] [id number] [place] [address] Care Team Providers Care Church Administrator Name Role Phone Tracy Olivares MD Primary Care Provider [phone] Nathan Baig MD Unavailable [phone] Marisel Mancini RN Unavailable [phone] Encounter Details Date Type Department Care Team (Late Contact Info) Description 03/09/2023 MyChart Message Enc [facility] - [facility] [address] [place] [address] [facility] Provider Air Quality Message Social History Tobacco Use Types Packs/Day Years [...] PM CDT documented as of this encounter Plan of Treatment Upcoming Encounters Date Type Department Care Team (Late Contact Info) Description 10/03/2024 11:00 AM ESCAPEMENT MATCHER Office Visit [facility] Specialty Clinic - [address] [address] Nathan Baig MD [address] [address] 11/14/2024 10:20 AM ESCAPEMENT MATCHER Office Visit [facility] Multispecialty Care - [place] [address] [address] [place] [address] Tracy Olivares MD [address] [address] documented as of this encounter Visit Diagnoses Not on filedocumented in this encounter Additional Health Concerns Assessment Noted Time PHQ-9 Depression Total Score: 11 01/07/ 023 1:30 PM CDT documented as of this encounter Care Teams Church Administrator Relationship Specialty Start Date End Date Tracy Olivares MD [address] [place] [address] PCP - General INTERNAL MEDICINE 01/02/21 Nathan Baig MD [address] [address] Consulting Physician Internal Medicine Pulmonary Disease 09/16/21 Marisel Mancini, ARACELIS [address] [place] [address] Sales Agent [employer] (Ambulatory) REGISTERED NURSE 06/28/24 08/07/24 documented as of this encounter
--- OUTSIDE RECORDS SUMMARY | 2024-09-07 05:23 | XMS_ITS | Encounter Summary ---
Author Organization [facility] Address [address] [place] [address]. [place] [id number] [place] [address] Care Team Providers Care Crown And Bridge Technician Name Role Phone Tracy Olivares MD Primary Care Provider [phone] Nathan Baig MD Unavailable [phone] Reason for Visit * Reason Comments Ear Problem Left ear, states the re is a roaring in the ear. Not as bad as yesterday. States it sounds like a loud sea shell sound.states its alicia going on ahwile. Roaring just started within a week. Hearing has been going on for a few years. Encounter Details Date Type Department Care Team (Latest Contact Info) Description 07/29/2023 9:40 AM LIME KILN WORKER Office Visit [facility] Multispecialty Care - [place] [address] [place] [address] Janay Andrade, [employer] [address] [facility], [address] [place] [address] Ear Problem (Left ear, states there is a roaring in the ear. Not as bad as yesterday. States it sounds like a loud sea shell sound.states its alicia going on ahwile. Roaring just started within a week. Hearing has been going on for a few years. ) Social History Tobacco Use Types Packs/Day Years Used Date Smoking Tobacco: Former Cigarettes 1.5 30 0 09/12/1954 - 09/12/1984 Smokeless Tobacco: Never Tobacco Cessation:Counseling Given: Yes Comments:counseled by Dr Olivares Alcohol Use Standard Drinks/Week Comments Not Currently [...] Sign Reading Time Taken Comments Blood Pressure 144/84 07/29/2023 9:53 AM LIME KILN WORKER Pulse 72 07/29/2023 9:53 AM LIME KILN WORKER Temperature 37 ??C (98.6 ??F) 07/29/2023 9:53 AM LIME KILN WORKER Respiratory Rate 14 07/29/2023 9:53 AM LIME KILN WORKER Oxygen Saturation 98% 07/29/2023 9:53 AM LIME KILN WORKER Inhaled Oxygen Concentration - - Weight 132.9 kg (293 lb) 07/29/2023 9:53 AM LIME KILN WORKER Height 161.3 cm (5' 3.5 ) 07/29/2023 9:53 AM LIME KILN WORKER Body Mass Index 51.09 07/29/2023 9:53 AM LIME KILN WORKER documented in this encounter Progress Notes * Janay Andrade NP - 07/29/2023 9:40 AM CST Reason for Visit: Ear Problem (Left ear, states there is a roaring in the ear. Not as bad as yesterday. States it sounds like a loud sea shell sound.states its alicia going on ahwile. Roaring just started within a week. Hearing has been going on for a few years. ) History of Present Illness: Ear pain-- reports 3 days of whooshing noise in left ear. Slight pain. No fevers. No uri symptoms. Reports chronic hearing loss to that ear that she has seen a specialist for in the past. Reports symptoms are improving today. Sciatic pain-- reports right sciatic pain since falling 2 weeks ago after stepping off of a curb. Pain starts to right lower back and radiates down right leg. Some leg weakness. Chronic n/t to leg reported by patient and she is taking gabapentin for this. Reports pain has been improving with tylenol, heat, and warm baths. Reports pain is much better today and she is walking better now. ROS: Review of Systems Constitutional: Negative for chills, fever, malaise/fatigue and weight loss. HENT: Positive for ear pain and hearing loss (chronic). Negative for congestion, ear discharge, sinus pain, sore throat and tinnitus. Respiratory: Negative for cough and shortness of breath. Cardiovascular: Negative for chest pain. Gastrointestinal: Negative for abdominal pain, diarrhea, nausea and vomiting. Musculoskeletal: Positive for back pain. DROM of back Skin: Negative for rash. Neurological: Negative for tingling, focal weakness and weakness. No loss in b/b. No n/t in saddle region. No leg weakness. PHQ-9: 01/07/2023 1:30 PM 07/05/2023 3:44 PM PHQ2/PHQ 9 DEPRESSION SCREEN QUESTIONAIRE Little interest or pleasure in doing things Several days Over half Feeling down, depressed, or hopeless Over half Over half Patient Health Questionnaire-2 Score 3 4 Trouble falling or staying asleep, or sleeping too much Over half Over half Feeling tired or having little energy Several days Several days Poor appetite or overeating Several days Over half Feeling bad about yourself - or that you are a failure or have let yourself or your family down Over half Over half Trouble concentrating on things, such as reading the newspaper or watching television Over half Several days Moving or speaking so slowly that other people could have noticed? Or the opposite - being so fidgety or restless that you have been moving around a lot more than usual. Not at all Over half Thoughts that you would be better off or hurting yourself in some way Not at all Over half Patient Health Questionnaire-9 Score 11 16 How difficult have these problems made it for you to do your work, take care of things at home, or get along with other people? Not difficult at all Somewhat difficult Medications: Current Outpatient Medications: albuterol sulfate HFA 108 (90 Base) MCG/ACT [...] at bedtime, Disp: 90 tablet, Rfl: 1 AZELASTINE 137 MCG/SPRAY nasal spray, Please specify directions, refills and quantity, Disp: 30 mL,Rfl: 0 cetirizine (ZYRTEC) 10 MG tablet, Take 1 tablet (10 mg total) by mouth daily., Disp: 90 tablet, Rfl: 3 diphenhydrAMINE-zinc (BENADRYL EXTRA STRENGTH) 2-0.1 % Cream cream, Use twice daily on skin to helpwith itching., Disp: 28 g, Rfl: 1 famotidine (PEPCID) 20 MG tablet, Take 1 tablet (20 mg total) by mouth 2 (two) times daily as needed for Heartburn., Disp: 180 tablet, Rfl: 1 fluticasone propionate (FLONASE) 50 MCG/ACT nasal spray, 2 sprays by Nasal route daily., Disp: 16 g, Rfl: 5 Tqwmafcfzrh-Pmhaeosng-Chuzhl (TRELEGY ELLIPTA) 100-62.5-25 MCG/ACT AEROSOL POWDER, BREATH ACTIVATED, Inhale 1 puff into the lungs daily., Disp: 180 each, Rfl: 3 gabapentin (NEURONTIN) 100 MG capsule, Take 200 mg in the morning, 200 mg in the afternoon and 300 mg at bedtime, Disp: 180 capsule, Rfl: 1 losartan-hydroCHLOROthiazide (HYZAAR) 100-12.5 MG tablet, Take 1 tablet by mouth daily., Disp: 90 tablet, Rfl: 3 meclizine 12.5 MG tablet, Take 1 tablet (12.5 mg total) by mouth nightly as needed., Disp: 20 tablet, Rfl: 0 meloxicam (MOBIC) 15 MG tablet, Take 1 tablet (15 mg total) by mouth daily., Disp: , Rfl: ONETOUCH VERIO test strip, , Disp: , Rfl: pantoprazole EC (PROTONIX) 40 MG tablet, pantoprazole 40 mg tablet,delayed release TAKE 1 TABLET BYMOUTH EVERY DAY IN THE MORNING, Disp: 90 tablet, Rfl: 1 SITagliptin (JANUVIA) 50 MG tablet, Take 1 tablet (50 mg total) by mouth daily., Disp: 90 tablet, Rfl: 1 tiZANidine (ZANAFLEX) 4 MG tablet, Take 0.5 tablets (2 mg total) by mouth nightly at bedtime. at bedtime, Disp: 90 tablet, Rfl: 1 Vitamin D, Cholecalciferol, 50 MCG (1999 MT) Cap, Take 1,000 Units by mouth daily., Disp: 30 capsule, Rfl: Review of patient's allergies indicates: Allergen Reactions Propoxyphene Unknown Past Medical History: Diagnosis Date Anxiety Cataract Chronic low back pain COPD (chronic obstructive pulmonary disease) ([facility]) ([facility]) Depression Diabetes mellitus ([facility]/HCC) ([facility]) GERD (gastroesophageal reflux disease) Glaucoma Hearing loss left ear Hypertension Impaired glucose tolerance Obese FAISAL on CPAP Shoulder pain Past Surgical History: Procedure Laterality Date CHOLECYSTECTOMY HAND SURGERY both hands HYSTERECTOMY Social History Socioeconomic History Marital status: Social History Tobacco Use Smoking status: Former Packs/day: 1.50 Years: 30.00 Additional pack years: 0.00 Total pack years: 45.00 Types: Cigarettes Quit date: 09/12/1984 Years since quittin.9 Smokeless tobacco: Never Tobacco comments: counseled by Dr Olivares Vaping Use Vaping Use: Never used Substance Use Topics Alcohol use: Not Currently [...] Specified) MGM (Not Specified) PGM (Not Specified) Filed Vitals: 07/29/23 0953 BP: (!) 144/84 Pulse: 72 Resp: 14 Temp: 98.6 ??F (37 ??C) TempSrc: Temporal SpO2: 98% Weight: 132.9 kg (293 lb) Height: 1.613 m (5' 3.5 ) Physical Exam Vitals and nursing note reviewed. Constitutional: Appearance: Normal appearance. She is obese. HENT: Head: Normocephalic and atraumatic. Right Ear: Tympanic membrane and ear canal normal. Left Ear: Ear canal normal. Tympanic membrane is not injected, not erythematous and not bulging. A middle ear effusion is present. Eyes: Conjunctiva/sclera: Conjunctivae normal. Cardiovascular: Rate and Rhythm: Normal rate and regular rhythm. Heart sounds: Normal heart sounds. Pulmonary: Effort: Pulmonary effort is normal. Breath sounds: Normal breath sounds. Musculoskeletal: Cervical back: Neck supple. Lumbar back: No swelling, edema, deformity, lacerations or tenderness. Decreased range of motion (flexion). Negative right straight leg raise test and negative left straight leg raise test. No scoliosis. Comments: Ttp to right SI. Fausto's test negative bilaterally. Lymphadenopathy: Cervical: No cervical adenopathy. Skin: General: Skin is warm and dry. Neurological: Mental Status: She is alert. Motor: No weakness (BLEs). Gait: Gait is intact. Deep Tendon Reflexes: Reflex Scores: Patellar reflexes are 1+ on the right side and 1+ on the left side. Achilles reflexes are 1+ on the right side and 1+ on the left side. Psychiatric: Mood and Affect: Mood normal. Behavior: Behavior normal. Behavior is cooperative. Thought Content: Thought content normal. Judgment: Judgment normal. Diagnoses/Impression: 1. Middle ear effusion, left 2. Sacroiliac joint pain Recommendations and Plan: 1. Middle ear effusion, left Take Claritin or zyrtec daily. F/u with pcp if no improvement. 2. Sacroiliac joint pain Improving per patient. If symptoms return or worsen, f/u with pcp for possible referral to PT. I personally spent a total of 30 minutes on the day of the encounter. This includes bnwk-fa-wrgy and bfn-wmsc-zx-face time I provided on the day of the encounter & excludes time spent performing separately reportable services. STEVE GORDON Referring Provider: No ref. provider found PCP: TRACY OLIVARES MD KILN WORKER documented in this encounter Plan of Treatment Upcoming Encounters Date Type Department Care Team (Late st Contact Info) Description 10/03/2024 11:00 AM LIME KILN WORKER Office Visit [facility] - [place] [address] [facility] [address] [place] [address] Nathan Baig MD [address] [place] [address] 11/14/2024 10:20 AM LIME KILN WORKER Office Visit [facility] Multispecialty Care - [address] [place] [address] Tracy Olivares MD [address] [address] documented as of this encounter Visit Diagnoses Diagnosis Middle ear effusion, left- Primary Sacroiliac joint pain Disorders of sacrum documented in this encounter Additional Health Concerns Assessment Noted Time PHQ-9 Depression Total Score: 16 023 3:44 PM CDT documented as of this encounter Care Teams Crown And Bridge Technician Relationship Specialty Start Date End Date Tracy Olivares MD [address] [place] [address] PCP - General INTERNAL MEDICINE 01/02/21 Nathan Baig MD [address] [address] Consulting Physician Internal Medicine Pulmonary Disease 09/16/21 documented as of this encounter
--- OUTSIDE RECORDS SUMMARY | 2024-09-07 05:23 | XMS_ITS | Encounter Summary ---
Author Organization [facility] Address [address] [place] [address]. [place], [place] [address] [place] [address] Care Team Providers Care Blind Slat Stapling Machine Operator Name Role Phone Trayc Olivares MD Primary Care Provider [phone] Nathan Baig MD Unavailable [phone] Encounter Details Date Type Department Care Team (Latest Contact Info) Description 12/16/2023 Travel Social History Tobacco Use Types Packs/Day [...] st Contact Info) Description 10/03/2024 11:00 AM PARKING LOT MANAGER Office Visit [facility] Pulmonology Specialty Clinic - [place] [address] [address] [facility] [address] [place] [address] Nathan Baig MD [address] [place] [address] 11/14/2024 10:20 AM PARKING LOT MANAGER Office Visit [facility] Medical Group Multispecialty Care - [place] [address] [address] [place] [address] Tracy Olivares MD [address] [address] documented as of this encounter Visit Diagnoses Not on filedocumented in this encounter Additional Health Concerns Assessment Noted Time PHQ-9 Depression Total Score: 2 09/14/19 24 11:30 AM PARKING LOT MANAGER documented as of this encounter Care Teams Blind Slat Stapling Machine Operator Relationship Specialty Start Date End Date Tracy Olivares MD [facility] [address] [address] PCP - General INTERNAL MEDICINE 01/02/21 Nathan Baig MD [address] [address] Consulting Physician Internal Medicine Pulmonary Disease 09/16/21 documented as of this encounter
--- OUTSIDE RECORDS SUMMARY | 2024-09-07 05:23 | XMS_ITS | Encounter Summary ---
Author Organization [facility] Address [address] [place] [address]. [place], [place] [address] [place] [address] Care Team Providers Care Extrusion Die Repairer Name Role Phone Tracy Olivares MD Primary Care Provider [phone] Nathan Baig MD Unavailable [phone] Encounter Details Date Type Department Care Team (Latest Contact Info) Description 09/23/2023 Travel Social History Tobacco Use Types Packs/Day [...] st Contact Info) Description 10/03/2024 11:00 AM TRAVEL AGENCY MANAGER Office Visit [facility] Pulmonology Specialty Clinic - [place] [address] [address] [facility] [address] [place] [address] Nathan Baig MD [address] [place] [address] 11/14/2024 10:20 AM TRAVEL AGENCY MANAGER Office Visit [facility] Multispecialty Care [place] [address] [address] [place] [address] Tracy Olivares MD [address] [address] documented as of this encounter Visit Diagnoses Not on filedocumented in this encounter Additional Health Concerns Assessment Noted Time PHQ-9 Depression Total Score: 2 09/14/19 24 11:30 AM TRAVEL AGENCY MANAGER documented as of this encounter Care Teams Extrusion Die Repairer Relationship Specialty Start Date End Date Tracy Olivares MD [facility] [address] [address] PCP - General INTERNAL MEDICINE 01/02/21 Nathan Baig MD [address] [address] Consulting Physician Internal Medicine Pulmonary Disease 09/16/21 documented as of this encounter
--- OUTSIDE RECORDS SUMMARY | 2024-09-07 05:23 | XMS_ITS | Encounter Summary ---
Author Organization [facility] Address [address] [place] [address]. [place], [place] [address] [place] [address] Care Team Providers Care Risk Management Analyst Name Role Phone Tracy Olivares MD Primary Care Provider [phone] Nathan Baig MD Unavailable [phone] Reason for Visit * Reason Onset Date Comments Results 02/10/2024 Encounter Details Date Type Department Care Team (Late st Contact Info) Description 02/10/2024 Telephone [facility] Multispecialty Care [place] [address] [address] [place] [address] Tracy Olivares MD 118[address] [facility] [address] [place] [address] Results Social History Tobacco Use [...] Progress Notes * Ilana Ochoa MA - 02/10/2024 5:02 PM CDT Called patient about the xray and she has a question about if the xray shows her pelvis area because she is having some pain there and having a hard time walking. Also patient is having a hard time holding her bladder. She doesn't see a urologist until March 11. She's not sure what she can do in the meantime. documented in this encounter Plan of Treatment Upcoming Encounters Date Type Department Care Team (Late st Contact Info) Description 10/03/2024 11:00 AM PHYSICAL SCIENTIST Office Visit [facility] Medical [facility] Pulmonology Specialty Clinic - [address] [address] Nathan Baig MD [address] [address] 11/14/2024 10:20 AM PHYSICAL SCIENTIST Office Visit [facility] Multispecialty Care - [place] [address] [address] [place] [address] Tracy Olivares MD [facility] [address] [address] documented as of this encounter Visit Diagnoses Not on filedocumented in this encounter Additional Health Concerns Assessment Noted Time PHQ-9 Depression Total Score: 2 09/14/19 24 11:30 AM PHYSICAL SCIENTIST documented as of this encounter Care Teams Risk Management Analyst Relationship Specialty Start Date End Date Tracy Olivares MD [address] [place] [address] PCP - General INTERNAL MEDICINE 01/02/21 Nathan Baig MD [address] [address] Consulting Physician Internal Medicine Pulmonary Disease 09/16/21 documented as of this encounter
--- OUTSIDE RECORDS SUMMARY | 2024-09-07 05:23 | XMS_ITS | Encounter Summary ---
Author Organization [facility] Address [address] [place] [address]. [place] [id number] [place], [place] [id number] Care Team Providers Care Video Operator Name Role Phone Tracy Olivares MD Primary Care Provider [phone] Nathan Baig MD Unavailable [phone] Reason for Visit * Reason Comments Pain Hip/ Limb * Physical Medicine (Routine) - Pending Review Specialty Diagnoses / Procedures Referred By Heidi iverson Referred To Contact PHYSICAL THERAPY / [facility] Physical Therapy Diagnoses Hip pain, bilateral Bilateral shoulder pain Procedures OFFICE/OUTPATIENT NEW LOW MDM 30-44 MINUTES OFFICE/OUTPT VISIT,NEW,LEVL IV OFFICE/OUTPT VISIT,NEW,LEVL V OFFICE/OUTPT VISIT,EST,LEVL III OFFICE/OUTPT VISIT,EST,LEVL IV OFFICE/OUTPT VISIT,EST,LEVL V Tracy Olivares MD [address] [address] Phone: tel: fax: [facility] Physical Therapy [address] [place] [address] Phone: tel: fax: Referral ID Status Reason Start Date Expiration Date Visits Requested Visits Authorized [id number] Pending Review Physical Therapy 12/16/2023 01/14/2025 12 12 Encounter Details Date Type Department Care Team (Late st Contact Info) Description 03/05/2024 9:30 AM CDT Office Visit [facility] Physical Therapy [address] [place] [address] Ly Collado, [place] [address] Pain Hip/ Limb Social History Tobacco Use Types Packs/Day Years [...] Progress Notes * Ly Collado, PT - 03/05/2024 9:30 AM CDT Physical Therapy Visit Note: Patient Name: Keegan Amaya Diagnosis: Chronic shoulder pain (primary encounter diagnosis) Hip pain Oa (osteoarthritis) of shoulder Shoulder tendonitis Start Time: 930 End Time: 1015 Treatment Day: 5 Total Approved Visits: 12 per insurance auth Therapy Plan of Care: 1x week for shoulder, hip mobilty and pelvic floor education and actiation Current Therapy Orders: eval and treat for shoulder and hip pain Diagnosis: shoulder and hip pain and OA Referring Provider: Tracy Olivares MD Precautions: diabetic, HTN Date of Injury: flare up in Oct 2023, went to ED in november 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 Hips seem to be doing much better. Since last visit is feeling things improved with her hips. Left shoulder hurts down into elbow. Starts at 6/10 pain to left elbow. Feels like she is itching more with her mexlocam. Has also been told she does not have RA. Compliance to Home Program: some Functional changes since last visit: minimal Reported Falls since last visit: denies Medications changes since last visit: Increased dose of gabapentin, discontinued celebrex, started hydrocodone and meloxicam, which does seem to be helping her sleep OBJECTIVE Treatment provided today: Therapeutic Exercise - 99995 Number of Minutes - 77816: 20 Exercise: NuStep level 6 x5 min (seat at 12, arms at 13) Exercise: Sidestepping in // bars 2 laps x2 Exercise: Standing hip abduction on floor 2x8 bilaterally Exercise: Standing with lean on elevated mat 2x8 hip extension bilaterally Exercise: Sitting LAQ without resistance x10 bilaterally Exercise: standing shoulder flexion left UE on // bar x 10 Exercise: standing bicep stretch with towel behind back. Done to improve lower extremity strength and endurance Neuromuscular Re-education - 79447 Number of Minutes - 44119: 15 Intervention: Supine elevated some to aide with rib position. Added pelvic floor movement with diaphragmatic breathing. Intervention: scapular retract and ER x 10 reps issued red band Intervention: horizontal shoulder abduction seated with red band x 5 and no band x 5 reps Done to facilitate diaphragmatic movement of exercise, educated on function of pelvic floor with hips and back. Therapeutic Activities - 50003 Number of Minutes - 05006: 10 Intervention: held Standing mini squats on floor 2x10 low ROM Intervention; sit to stand with cues for knee flexion and breathing Intervention: heel raises from floor x 10 Intervention: held Bed mobility training from supine <--> sit and sit <--> stand with use of exhale during exertion to improve ease of bed mobility at home and decrease muscle tone/guarding. Intervention: held Practice making bed with breathing Intervention: held Sit to stand practice with breathing Self Care - 04989 Number of Minutes - 04636: held Education consisted of reinforcement of previous education, including use of diaphragmatic breathing for stress management and for implementation of functional tasks related to dressing and householdchores. Energy conservation also discussed. ASSESSMENT Address shoulder movement and stretching today. Cont to emphasize benefits of joint movement to aidwith reduced joint pain. Able to get relief from left shoulder pain with movement today. Cont to build on LE strength with heel raises and sit to stands. Addressed pelvic floor muscles with use of breathing and hip and core function. Seems to comprehend today. Cont to be tight in her low back. Seems to breath a bit better reclined today. Pt continues to demonstrate impaired shoulder A/PROM, decreased shoulder strength, decreased hip AROM, and decreased hip strength, which limits ease of bed mobility, standing or walking for long periods, and using her arms for normal ADLs. Continue PT per plan. PLAN Patient is scheduled to return 03/16/2024. Next Visit Plan: Continue shoulder isometrics and scapular activation, hip mobility, ongoing pelvicfloor education with heavy focus on diaphragm function. Add banded shoulder/core ex as able next visit. Total Time in Minutes: 45 Timed Code Treatment Minutes: 45 documented in this encounter Plan of Treatment Upcoming Encounters Date Type Department Care Team (Late st Contact Info) Description 10/03/2024 11:00 AM BUFFING WHEEL PRESSER Office Visit [facility] Medical [facility] Pulmonology Specialty Clinic - [address] [address] Nathan Baig MD [address] [place] [address] 11/14/2024 10:20 AM BUFFING WHEEL PRESSER Office Visit [facility] Multispecialty Care - [place] [address] [address] [place] [address] Tracy Olivares MD [address] [place] [address] documented as of this encounter Visit Diagnoses Diagnosis Chronic shoulder pain- Primary Pain in joint, shoulder region Hip pain Pain in joint, pelvic region and thigh OA (osteoarthritis) of shoulder Shoulder tendonitis documented in this encounter Additional Health Concerns Assessment Noted Time PHQ-9 Depression Total Score: 2 09/14/19 24 11:30 AM BUFFING WHEEL PRESSER documented as of this encounter Care Teams Video Operator Relationship Specialty Start Date End Date Tracy Olivares MD [address] [place] [address] PCP - General INTERNAL MEDICINE 01/02/21 Nathan Baig MD [address] [address] Consulting Physician Internal Medicine Pulmonary Disease 09/16/21 documented as of this encounter
--- OUTSIDE RECORDS SUMMARY | 2024-09-07 05:23 | XMS_ITS | Encounter Summary ---
Author Organization [facility] - [facility] Address [address] [place] [address]. [place] [id number] [place] [address] Care Team Providers Care Diagram Clerk Name Role Phone Tracy Olivares MD Primary Care Provider [phone] Nathan Baig MD Unavailable [phone] Reason for Visit * Reason Onset Date Comments Results 02/28/2024 Encounter Details Date Type Department Care Team (Late st Contact Info) Description 02/28/2024 Telephone [facility] Medical Group Multispecialty Care - [place] [address] [address] [place] [address] [place] [address] [place] [address] [address] [place] [address] Results Social History Tobacco Use [...] Progress Notes * Najma Moreland MA - 02/29/2024 5:41 PM CDT Spoke to pt she v/u. * Lester Huffman - 02/28/2024 2:02 PM CDT Pls call pt with labs results, she is wanting to know if it is Rheumatoid or Osteo Arthritis, pls call today. documented in this encounter Plan of Treatment Upcoming Encounters Date Type Department Care Team (Late st Contact Info) Description 10/03/2024 11:00 AM PROJECT DEVELOPMENT MANAGER Office Visit [facility] Medical [facility] Pulmonology Specialty Clinic - [address] [address] Nathan Baig MD [address] [address] 11/14/2024 10:20 AM PROJECT DEVELOPMENT MANAGER Office Visit [facility] Multispecialty Care - [place] [address] [address] [place] [address] Tracy Olivares MD [facility] [address] documented as of this encounter Visit Diagnoses Not on filedocumented in this encounter Additional Health Concerns Assessment Noted Time PHQ-9 Depression Total Score: 2 09/14/19 24 11:30 AM PROJECT DEVELOPMENT MANAGER documented as of this encounter Care Teams Diagram Clerk Relationship Specialty Start Date End Date Tracy Olivares MD [address] [place] [address] PCP - General INTERNAL MEDICINE 01/02/21 Nathan Baig MD [address] [address] Consulting Physician Internal Medicine Pulmonary Disease 09/16/21 documented as of this encounter
--- OUTSIDE RECORDS SUMMARY | 2024-09-07 05:23 | XMS_ITS | Encounter Summary ---
Author Organization [facility] Address [address] [place] [address]. [place] [id number] Care Team Providers Care Environmental Attorney Name Role Phone Tracy Olivares MD Primary Care Provider [phone] Nathan Baig MD Unavailable [phone] Reason for Referral * Consultation (Urgent) - Closed Specialty Diagnoses / Procedures Referred By Heidi iverson Referred To Contact OBGYN Diagnoses Pelvic pain syndrome Procedures OFFICE/OUTPATIENT NEW LOW MDM 30-44 MINUTES OFFICE/OUTPT VISIT,NEW,LEVL IV OFFICE/OUTPT VISIT,NEW,LEVL V OFFICE/OUTPT VISIT,EST,LEVL III OFFICE/OUTPT VISIT,EST,LEVL IV OFFICE/OUTPT VISIT,EST,LEVL V Tracy Olivares MD 118[address] [facility] [address] [place] [address] Phone: tel: fax: Carlos Macias MD [facility] [address] [place] [address] [address] [place] [address] Phone: tel: fax: Referral ID Status Reason Start Date Expiration Date V isits Requested Visits Authorized [id number] Closed Specialty Services 12/13/2023 12/12/2024 99 99 Scheduling Instructions She is sceduled with [email or web address] on 01/10/2024. Dx: R10.2. Reason for Visit * Reason Onset Date Comments Referral 12/13/2023 Encounter Details Date Type Department Care Team (Late Contact Info) Description 12/13/2023 Telephone [facility] Medical [facility] Multispecialty Care - [address] [address] Tracy Olivares MD [address] [address] Referral Social History Tobacco Use Types Packs/Day [...] st Contact Info) Description 10/03/2024 11:00 AM ELECTROENCEPHALOGRAM TECHNOLOGIST Office Visit [facility] Pulmonology Specialty Clinic - [address] [address] Nathan Baig MD [address] [place] [address] 11/14/2024 10:20 AM ELECTROENCEPHALOGRAM TECHNOLOGIST Office Visit [facility] Medical [facility] Multispecialty Care - [address] [address] Tracy Olivares MD [address] [address] Scheduled Referrals Name Type Priority Associated Diagnoses Orde r Schedule Ambulatory referral to Obstetrics/Gynecology (OTHER) Referral Routine Pelvic pain syndrome Ordered: 12/13/2023 documented as of this encounter Visit Diagnoses Diagnosis Pelvic pain syndrome- Primary Pelvic congestion syndrome documented in this encounter Additional Health Concerns Assessment Noted Time PHQ-9 Depression Total Score: 2 09/14/19 24 11:30 AM ELECTROENCEPHALOGRAM TECHNOLOGIST documented as of this encounter Care Teams Environmental Attorney Relationship Specialty Start Date End Date Tracy Oliavres MD 1188 [facility] [address] [place] [address] PCP - General INTERNAL MEDICINE 01/02/21 Nathan Baig MD [address] [address] Consulting Physician Internal Medicine Pulmonary Disease 09/16/21 documented as of this encounter
--- OUTSIDE RECORDS SUMMARY | 2024-09-07 05:23 | XMS_ITS | Encounter Summary ---
Author Organization [facility] Address [address] [place] [address]. [place] [id number] [place] [address] Care Team Providers Care Production Inspector Name Role Phone Tracy Olivares MD Primary Care Provider [phone] Nathan Baig MD Unavailable [phone] Reason for Visit * Reason Comments Allied Health Visit Pt is here for lab w ork Encounter Details Date Type Department Care Team (Latest Contact Info) Description 02/27/2024 11:00 AM CDT Allied Health/Nurse Visit [facility] Medical Group Multispecialty Care - [place] [address] [address] [place] [address] [place] [address] [place] [address] [address] [place], [place] [phone] Allied Health Visit (Pt is here for [...] Progress Notes * Ilana Ochoa MA - 02/27/2024 11:00 AM CDT Pt is here for lab work documented in this encounter Plan of Treatment Upcoming Encounters Date Type Department Care Team (Late st Contact Info) Description 10/03/2024 11:00 AM CHRISTMAS TREE FARM WORKER Office Visit [facility] Medical Group Pulmonology Specialty Clinic - [address] [address] Nathan Baig MD [address] [address] 11/14/2024 10:20 AM CHRISTMAS TREE FARM WORKER Office Visit [facility] Multispecialty Care - [place] [address] [address] [place] [address] Tracy Olivares MD [address] [place] [address] documented as of this encounter Procedures Procedure Name Priority Date/Time Associated Diagnosis Comments VENIPUNC ARM DRAW Routine 02/27/2024 10:41 AM CDT Idiopathic peripheral neuropathy documented in this encounter Visit Diagnoses Diagnosis Idiopathic peripheral neuropathy- Primary Unspecified hereditary and idiopathic peripheral neuropathy documented in this encounter Additional Health Concerns Assessment Noted Time PHQ-9 Depression Total Score: 2 09/14/19 24 11:30 AM CHRISTMAS TREE FARM WORKER documented as of this encounter Care Teams Production Inspector Relationship Specialty Start Date End Date Tracy Olivares MD [address] [place] [address] PCP - General INTERNAL MEDICINE 01/02/21 Nathan Baig MD [address] [address] Consulting Physician Internal Medicine Pulmonary Disease 09/16/21 documented as of this encounter
--- OUTSIDE RECORDS SUMMARY | 2024-09-07 05:23 | XMS_ITS | Encounter Summary ---
Author Organization [facility] Address [address] [place] [address]. [place], [place] [address] [place] [address] Care Team Providers Care Drafting Clerk Name Role Phone Tracy Olivares MD Primary Care Provider [phone] Nathan Baig MD Unavailable [phone] Reason for Visit * Reason Onset Date Comments Medication Request 06/30/2023 Encounter Details Date Type Department Care Team (Late st Contact Info) Description 06/30/2023 Telephone [facility] Medical Group Multispecialty Care - [place] [address] [place] [address] [address] [place] [address] [place] [address] [place] [address] 157 [place] [address] Medication Request Social History Tobacco Use Types Packs/Day Years [...] encounter Progress Notes * Bahman Conrad - 07/04/2023 9:16 AM CDT Called patient and scheduled her for a f/u appt to discuss medication. Patient is scheduled to be seen on 07/05/23 at 2:40 pm. * Bahman Conrad - 06/30/2023 1:29 PM CDT Patient is requesting a refill of her Topiramate and increase the dosage to 50. documented in this encounter Plan of Treatment Upcoming Encounters Date Type Department Care Team (Late st Contact Info) Description 10/03/2024 11:00 AM DATA SOLUTIONS ARCHITECT Office Visit [facility] Medical Group Pulmonology Specialty Clinic - [address] [address] Nathan Baig MD [address] [address] 11/14/2024 10:20 AM DATA SOLUTIONS ARCHITECT Office Visit [facility] Multispecialty Care - [place] [address] [address] [place] [address] Tracy Olivares MD [address] [place] [address] documented as of this encounter Visit Diagnoses Not on filedocumented in this encounter Additional Health Concerns Assessment Noted Time PHQ-9 Depression Total Score: 11 01/07/2 023 1:30 PM CDT documented as of this encounter Care Teams Drafting Clerk Relationship Specialty Start Date End Date Tracy Olivares MD [address] [place] [address] PCP - General INTERNAL MEDICINE 01/02/21 Nathan Baig MD 3 [facility] [address] [place] [address] Consulting Physician Internal Medicine Pulmonary Disease 09/16/21 documented as of this encounter
--- OUTSIDE RECORDS SUMMARY | 2024-09-07 05:23 | XMS_ITS | Encounter Summary ---
Author Organization [facility] Address [address] [place] [address]. [place], [place] [address] [place] [address] Care Team Providers Care Outside Barrel Lathe Operator Name Role Phone Tracy Olivares MD Primary Care Provider [phone] Nathan Baig MD Unavailable [phone] Reason for Visit * Reason Comments Sleep Study (SCAN) Encounter Details Date Type Department Care Team (Late Contact Info) Description 09/22/2023 Scan HEALTH INFO SRVCS Scanned, Doc Med [...] Upcoming Encounters Date Type Department Care Team ([facility] Contact Info) Description 10/03/2024 11:00 AM MACHINE BURRER Office Visit [facility] Medical Group Pulmonology Specialty Clinic - [address] [place] [address] Nathan Baig MD [address] [place] [address] [address] [place] [address] 11/14/2024 10:20 AM MACHINE BURRER Office Visit [facility] Medical Group Multispecialty Care - [place] [address] [address] [place] [address] Tracy Olivares MD [facility] [address] documented as of this encounter Procedures Procedure Name Priority Date/Time Associated Diagnosis Comments SLEEP STUDY GENERIC (SCAN ORDER) 09/22/2023 documented in this encounter Results * SLEEP STUDY GENERIC (09/22/2023) 09/22/2023 us Doc Med Group Scanned SCANNING Final Resu lt documented in this encounter Visit Diagnoses Not on filedocumented in this encounter Additional Health Concerns Assessment Noted Time PHQ-9 Depression Total Score: 2 09/14/19 24 11:30 AM MACHINE BURRER documented as of this encounter Care Teams Outside Barrel Lathe Operator Relationship Specialty Start Date End Date Tracy Olivares MD [address] [address] PCP - General INTERNAL MEDICINE 01/02/21 Nathan Baig MD [address] [address] Consulting Physician Internal Medicine Pulmonary Disease 09/16/21 documented as of this encounter
--- OUTSIDE RECORDS SUMMARY | 2024-09-07 05:23 | XMS_ITS | Encounter Summary ---
Author Organization [facility] Address [address] [place] [address]. [place], [place] [address] [place] [address] Care Team Providers Care Re Recording Mixer Name Role Phone Tracy Olivares MD Primary Care Provider [phone] Nathan Baig MD Unavailable [phone] Reason for Visit * Reason Comments Obstructive Sleep Apnea * Consultation/Treatment (Routine) - Closed Specialty Diagnoses / Procedures Referred By Heidi iverson Referred To Contact Internal Medicine Pulmonary Disease / SLEEP & RESPIRATORY CARE Diagnoses FOLLOW UP Tracy Olivares MD [address] [place] [address] Phone: tel: fax: Nathan Baig MD [address] [address] Phone: tel: fax: Referral ID Status Reason Start Date Expiration Date V isits Requested Visits Authorized [id number] Closed Specialty Services 04/23/2022 04/23/2024 100 100 Encounter Details Date Type Department Care Team (Late st Contact Info) Description 09/23/2023 11:00 AM CUSHION COVER INSPECTOR Office Visit [facility] Medical Group [facility] Specialty Clinic - [address] [address] Nathan Baig MD 3 [facility] [address] [place], [place] [id number] Obstructive Sleep Apnea Social History Tobacco Use Types Packs/Day Years Used Date Smoking Tobacco: Former Cigarettes 1.5 30 0 09/12/1954 - 09/12/1984 Smokeless Tobacco: Never Tobacco Cessation:Counseling Given: Yes Alcohol Use Standard Drinks/Week Comments Not Currently [...] Sign Reading Time Taken Comments Blood Pressure 109/70 09/23/2023 10:42 AM CUSHION COVER INSPECTOR Pulse 86 09/23/2023 10:42 AM CUSHION COVER INSPECTOR Temperature 36.5 ??C (97.7 ??F) 09/23/2023 10:[address] Respiratory Rate 16 09/23/2023 10:42 AM CUSHION COVER INSPECTOR Oxygen Saturation 99% 09/23/2023 10:42 AM CUSHION COVER INSPECTOR RA Inhaled Oxygen Concentration - - Weight 129.3 kg (285 lb) 09/23/2023 10:42 AM CUSHION COVER INSPECTOR Height 160 cm (5' 3 ) 09/23/2023 10:42 AM CUSHION COVER INSPECTOR Body Mass Index 50.49 09/23/2023 10:42 AM CUSHION COVER INSPECTOR documented in this encounter Patient Instructions * Patient Instructions* Nathan Baig MD - 09/23/2023 11:00 AM CUSHION COVER INSPECTOR Continue Trelegy 1 puff daily Continue albuterol if needed Try to use your CPAP every single night Use distilled water There are ways to turn the humidity up on the machine, if you are unable to figure it out please call the medical equipment company so they can help you Follow-up with me in 6 months ION COVER INSPECTOR documented in this encounter Progress Notes * Nathan Baig MD - 09/23/2023 11:00 AM CST [facility] PULMONARY MEDICINE History Chief Complaint Patient presents with Obstructive Sleep Apnea Referring provider: Tracy Olivares MD 09/23/2023 OV: She is trying to use [...] back pain COPD (chronic obstructive pulmonary disease) ([facility]/H[facility]) ([facility]) Depression Diabetes mellitus ([facility]/HCC) ([facility]) GERD (gastroesophageal reflux disease) Glaucoma Hearing loss left ear Hypertension Impaired glucose tolerance Obese FAISAL on CPAP Shoulder pain Past Surgical History: Procedure Laterality Date CHOLECYSTECTOMY HAND SURGERY both hands HYSTERECTOMY Social History Tobacco Use Smoking status: Former Packs/day: 1.50 Years: 30.00 Additional pack years: 0.00 Total pack years: 45.00 Types: Cigarettes Quit date: 09/12/1984 Years since quittin.0 Smokeless tobacco: Never Vaping Use Vaping Use: Never used Substance [...] at bedtime. at bedtime 90 tablet 1 empagliflozin (JARDIANCE) 10 MG tablet Take 1 tablet (10 mg total) by mouth daily. 90 tablet 1 famotidine (PEPCID) 20 MG tablet Take 1 tablet (20 mg total) by mouth 2 (two) times daily as neededfor Heartburn. 180 tablet 1 fluticasone propionate (FLONASE) 50 MCG/ACT nasal spray 2 sprays by Nasal route daily. 16 g 5 Fibjzbmfjkc-Vparqzaal-Ckwivw (TRELEGY ELLIPTA) 100-62.5-25 MCG/ACT AEROSOL POWDER, BREATH [...] mouth nightly as needed. 20 tablet 0 ONETOUCH VERIO test strip pantoprazole EC (PROTONIX) 40 MG tablet pantoprazole 40 mg tablet,delayed release TAKE 1 TABLET BY MOUTH EVERY DAY IN THE MORNING 90 tablet 1 tiZANidine (ZANAFLEX) 4 MG tablet Take 0.5 tablets (2 mg total) by mouth nightly at bedtime. at bedtime 90 tablet 1 Vitamin D, Cholecalciferol, 50 MCG (2000 UT) Cap Take 1,000 Units by mouth daily. 30 capsule AZELASTINE 137 MCG/SPRAY nasal spray Please specify directions, refills and quantity (Patient not taking: Reported on 08/26/2023) 30 mL 0 cetirizine (ZYRTEC) 10 MG tablet Take 1 tablet (10 mg total) by mouth daily. (Patient not taking: Reported on 08/26/2023) 90 tablet 3 diphenhydrAMINE-zinc (BENADRYL EXTRA STRENGTH) 2-0.1 % Cream cream Use twice daily on skin to help with itching. (Patient not taking: Reported on 08/26/2023) 28 g 1 meloxicam (MOBIC) 15 MG tablet Take 1 tablet (15 mg total) by mouth daily. (Patient not taking: Reported on 09/14/2023) No current facility-administered medications for this visit. Review of patient's allergies indicates: Allergen Reactions Propoxyphene Unknown Immunization History Administered Date(s) Administered Flucelvax 6 Months+ (Prefilled Syringe) 06/05/2019 Fluzone High Dose - >Age 65 (Prefilled Syringe) 06/08/2021, 06/16/2022 Influenza 06/12/2013, 06/07/2014 Influenza Adult (Generic) 06/12/2013, 06/07/2014, 06/10/2015, 05/17/2016, 05/20/2017, 06/05/2018, 05/28/2020, 07/01/2020, 06/08/2023 PFIZER COVID-19 ([place] [facility]), MRNA, LNP-S, [...] is not nervous/anxious. Physical Exam Filed Vitals: 09/23/23 1042 BP: 109/70 Pulse: 86 Resp: 16 Temp: 97.7 ??F (36.5 ??C) TempSrc: Temporal SpO2: 99% Weight: 129.3 kg (285 lb) Height: 1.6 m (5' 3 ) Body mass index is 50.49 kg/m??. Physical Exam: General: Alert, pleasant, in NAD Neuro: Alert, appropriate Psych: Affect normal Head: NC, AT EENT: No Sinus tenderness to palpation, mallampati 4 Neck: Supple Lymph: No appreciable cervical lymphadenopathy Respiratory: Normal bilateral breath sounds Cardiovascular: s1,s2, rrr, no audible murmur GI: [...] Pressureset at 9 cm H2O. AHI 0.2/h Assessment Mild obstructive sleep apnea on CPAP Mild to moderate persistent asthma Tobacco use history Obesity Hypertension Plan - She is using her CPAP more than last time, finding it beneficial when she uses it, encouraged nightly use. She will continue to benefit when she uses it. -Change of the mask and straps, tubing every 3 to 6 months -Use distilled water, advised turning the humidity up to help with the dryness - Continue Trelegy 100 mcg 1 puff daily. Rinse gargle and spit after use. - Albuterol can use as needed Return in about 6 months (around 03/23/2024). Nathan Baig MD ION COVER INSPECTOR documented in this encounter Plan of Treatment Upcoming Encounters Date Type Department Care Team (Late st Contact Info) Description 10/03/2024 11:00 AM CUSHION COVER INSPECTOR Office Visit [facility] Medical [facility] Pulmonology Specialty Clinic - [address] [address] Nathan Baig MD 3 [facility] [address] [place] [address] 11/14/2024 10:20 AM CUSHION COVER INSPECTOR Office Visit [facility] Multispecialty Care - [place] [address] [address] [place] [address] Tracy Olivares MD [address] [place] [address] documented as of this encounter Visit Diagnoses Diagnosis FAISAL on CPAP- Primary Obstructive sleep apnea (adult) (pediatric) Moderate persistent asthma without complication ([facility]) Unspecified asthma Class 3 severe obesity due to excess calories without serious comorbidity with body mass index (BMI) of 45.0 to 49.9 in adult ([facility]) Seasonal allergies Allergic rhinitis, cause unspecified Nicotine dependence, cigarettes, in remission documented in this encounter Additional Health Concerns Assessment Noted Time PHQ-9 Depression Total Score: 2 09/14/19 24 11:30 AM CUSHION COVER INSPECTOR documented as of this encounter Care Teams Re Recording Mixer Relationship Specialty Start Date End Date Tracy Olivares MD [address] [place] [address] PCP - General INTERNAL MEDICINE 01/02/21 Nathan Baig MD 3 [facility] [address] [place] [address] Consulting Physician Internal Medicine Pulmonary Disease 09/16/21 documented as of this encounter
--- OUTSIDE RECORDS SUMMARY | 2024-09-07 05:23 | XMS_ITS | Encounter Summary ---
Author Organization [facility] Address [address] [place] [address]. [place], [place] [address] [place] [address] Care Team Providers Care Animal Park Code Enforcement Officer Name Role Phone Tracy Olivares MD Primary Care Provider [phone] Nathan Baig MD Unavailable [phone] Reason for Visit * Reason Comments Lab (SCAN) Encounter Details Date Type Department Care Team (Latest Contact Info) Description 08/23/2023 Scan HEALTH INFO SRVCS Scanned, Doc Med [...] st Contact Info) Description 10/03/2024 11:00 AM WET AND DRY SUGAR BIN OPERATOR Office Visit [facility] Medical [facility] Pulmonology Specialty Clinic - [address] [place] [address] Nathan Baig MD [address] [place] [address] 11/14/2024 10:20 AM WET AND DRY SUGAR BIN OPERATOR Office Visit [facility] Multispecialty Care - [place] [address] [address] [place] [address] Tracy Olivares MD [address] [address] documented as of this encounter Procedures Procedure Name Priority Date/Time Associated Diagnosis Comments OUTSIDE LAB COVID-19 (SCAN ORDER) Routine 08/23/2023 documented in this encounter Results * OUTSIDE LAB COVID-19 (08/23/2023) CORONAVIRUS SARS COV 2 PCR (RESP) NOT DETECTED NOT DETECTED [facility] ONBASE 08/23/2023 us Doc Med Group Scanned SCANNING Final Resu lt HS ONBASE documented in this encounter Visit Diagnoses Not on filedocumented in this encounter Additional Health Concerns Assessment Noted Time PHQ-9 Depression Total Score: 16 023 3:44 PM CDT documented as of this encounter Care Teams Animal Park Code Enforcement Officer Relationship Specialty Start Date End Date Tracy Olivares MD [address] [place] [address] PCP - General INTERNAL MEDICINE 01/02/21 Nathan Baig MD [address] [address] Consulting Physician Internal Medicine Pulmonary Disease 09/16/21 documented as of this encounter
--- OUTSIDE RECORDS SUMMARY | 2024-09-07 05:23 | XMS_ITS | Encounter Summary ---
Author Organization [facility] Address [address] [place] [address]. [place] [id number] [place] [address] Care Team Providers Care Account Analyst Name Role Phone Tracy Olivares MD Primary Care Provider [phone] Nathan Baig MD Unavailable [phone] Reason for Visit * Reason Onset Date Comments Refill Request 02/20/2024 Encounter Details Date Type Department Care Team (Late st Contact Info) Description 02/20/2024 Telephone [facility] Multispecialty Care - [place] [address] [address] [place] [address] [place] [address] [place] [address] [address] [place] [address] Refill Request Social History Tobacco Use Types Packs/Day [...] as of this encounter Progress Notes * Mary Mcintyre - 02/20/2024 11:05 AM CDT Refill request Glenderly West a patient of TRACY OLIVARES MD request a refill of esomeprazole (NEXIUM) 40 MG capsule The patient would like this sent to the following pharmacy: [facility]/pharmacy #[id number] - [place], [place] - [address] [facility] [address] [facility] [address] The next office visit: Next visit with TRACY OLIAVRES in FAMILY PRACTICE is on: [facility] The last office visit: Last visit with TRACY OLIVARES in FAMILY PRACTICE was [facility]: [facility] documented in this encounter Plan of Treatment Upcoming Encounters Date Type Department Care Team (Late st Contact Info) Description 10/03/2024 11:00 AM GUIDE DOG MOBILITY INSTRUCTOR Office Visit [facility] Medical [facility] Pulmonology Specialty Clinic - [address] [address] Nathan Baig MD [address] [place] [address] 11/14/2024 10:20 AM GUIDE DOG MOBILITY INSTRUCTOR Office Visit [facility] Multispecialty Care - [place] [address] [address] [place] [address] Tracy Olivares MD [facility] [address] [address] documented as of this encounter Visit Diagnoses Diagnosis Gastroesophageal reflux disease without esophagitis Esophageal reflux documented in this encounter Additional Health Concerns Assessment Noted Time PHQ-9 Depression Total Score: 2 09/14/19 24 11:30 AM GUIDE DOG MOBILITY INSTRUCTOR documented as of this encounter Care Teams Account Analyst Relationship Specialty Start Date End Date Tracy Olivares MD [address] [place] [address] PCP - General INTERNAL MEDICINE 01/02/21 Nathan Baig MD [address] [id number] Consulting Physician Internal Medicine Pulmonary Disease 09/16/21 documented as of this encounter
--- OUTSIDE RECORDS SUMMARY | 2024-09-07 05:23 | XMS_ITS | Encounter Summary ---
Author Organization [facility] Address [address] [place] [address]. [place], [place] [address] [place] [address] Care Team Providers Care Education Technician Name Role Phone Tracy Olivares MD Primary Care Provider [phone] Nathan Baig MD Unavailable [phone] Reason for Visit * Reason Onset Date Comments Question 10/11/2023 Information 10/11/2023 Encounter Details Date Type Department Care Team (Late st Contact Info) Description 10/11/2023 Telephone [facility] Medical Group Multispecialty Care - [place] [address] [place] [address] [address] [place] [address] [place] [address] [place] [address] [address] [place], [place] [id number] Question; Information Social History Tobacco Use Types Packs/Day [...] encounter Progress Notes * Lester Huffman - 10/25/2023 12:28 PM CST Pt is coming in to discuss weight loss surgery on 11/09. TOP SUPPORT ENGINEER * Lester Saul Huffman - 10/11/2023 11:53 AM CST Pt called today and stated that she is considering Gastric Sleve Surgery and she is wanting to consult with Dr. Olivares and she how she feels about it, pls call pt and discuss. TOP SUPPORT ENGINEER documented in this encounter Plan of Treatment Upcoming Encounters Date Type Department Care Team (Late st Contact Info) Description 10/03/2024 11:00 AM DESKTOP SUPPORT ENGINEER Office Visit [facility] Medical Group Pulmonology Specialty Clinic - [address] [address] Nathan Baig MD [address] [address] 11/14/2024 10:20 AM DESKTOP SUPPORT ENGINEER Office Visit [facility] Multispecialty Care - [place] [address] [address] [place] [address] Tarcy Olivares MD [address] [place] [address] documented as of this encounter Visit Diagnoses Not on filedocumented in this encounter Additional Health Concerns Assessment Noted Time PHQ-9 Depression Total Score: 2 09/14/19 24 11:30 AM DESKTOP SUPPORT ENGINEER documented as of this encounter Care Teams Education Technician Relationship Specialty Start Date End Date Tracy Olivares MD [address] [place] [address] PCP - General INTERNAL MEDICINE 01/02/21 Nathan Baig MD 3 [facility] [address] [place] [address] Consulting Physician Internal Medicine Pulmonary Disease 09/16/21 documented as of this encounter
--- OUTSIDE RECORDS SUMMARY | 2024-09-07 05:23 | XMS_ITS | Encounter Summary ---
Author Organization [facility] Address [address] [place] [address]. [place], [place] [address] [place] [address] Care Team Providers Care Equestrian Trainer Name Role Phone Tracy Olivares MD Primary Care Provider [phone] Nathan Baig MD Unavailable [phone] Encounter Details Date Type Department Care Team (Latest Contact Info) Description 05/31/2023 Travel Social History Tobacco Use Types Packs/Day [...] st Contact Info) Description 10/03/2024 11:00 AM PEARL TECHNICIAN Office Visit [facility] Pulmonology Specialty Clinic - [address] [place] [address] Nathan Baig MD [address] [place] [address] 11/14/2024 10:20 AM PEARL TECHNICIAN Office Visit [facility] Multispecialty Care - [address] [place] [address] Tracy Olivares MD [address] [place] [address] documented as of this encounter Visit Diagnoses Not on filedocumented in this encounter Additional Health Concerns Assessment Noted Time PHQ-9 Depression Total Score: 11 023 1:30 PM CDT documented as of this encounter Care Teams Equestrian Trainer Relationship Specialty Start Date End Date Tracy Olivares MD [address] [place] [address] PCP - General INTERNAL MEDICINE 01/02/21 Nathan Baig MD [address] [address] Consulting Physician Internal Medicine Pulmonary Disease 09/16/21 documented as of this encounter
--- OUTSIDE RECORDS SUMMARY | 2024-09-07 05:23 | XMS_ITS | Encounter Summary ---
Author Organization [facility] Address [address] [place] [address]. [place], [place] [address] [place] [address] Care Team Providers Care Medical Professionals Name Role Phone Tracy Olivares MD Primary Care Provider [phone] Nathan Baig MD Unavailable [phone] Reason for Visit * Reason Comments MRI (SCAN) Encounter Details Date Type Department Care Team (Latest Contact Info) Description 03/12/2024 Scan HEALTH INFO SRVCS Scanned, Doc Med Group MRI (SCAN) Social History Tobacco Use Types Packs/Day Years Used Date Smoking Tobacco: Former Cigarettes Smokeless Tobacco: Never Comments:Counseled by Dr. Shraon purcell. Alcohol Use Standard Drinks/Week Comments Not [...] st Contact Info) Description 10/03/2024 11:00 AM CARPENTER'S HELPER Office Visit [facility] Group Pulmonology Specialty Clinic - [address] [place] [address] Nathan Baig MD [address] [place] [address] 11/14/2024 10:20 AM CARPENTER'S HELPER Office Visit [facility] Multispecialty Care - [place] [address] [address] [place] [address] Tracy Olivares MD [facility] [address] [address] documented as of this encounter Procedures Procedure Name Priority Date/Time Associated Diagnosis Comments MRI GENERIC 03/12/2024 documented in this encounter Results * MRI GENERIC (03/12/2024) Anatomical Region Laterality Modality Other 03/12/2024 us Doc Med Group Scanned SCANNING Final Resu lt documented in this encounter Visit Diagnoses Not on filedocumented in this encounter Additional Health Concerns Assessment Noted Time PHQ-9 Depression Total Score: 2 09/14/19 24 11:30 AM CARPENTER'S HELPER documented as of this encounter Care Teams Medical Professionals Relationship Specialty Start Date End Date Tracy Olivares MD [address] [place] [address] PCP - General INTERNAL MEDICINE 01/02/21 Nathan Baig MD [address] [address] Consulting Physician Internal Medicine Pulmonary Disease 09/16/21 documented as of this encounter
--- OUTSIDE RECORDS SUMMARY | 2024-09-07 05:23 | XMS_ITS | Encounter Summary ---
Author Organization [facility] Address [address] [place] [address]. [place] [id number] [place], [place] [id number] Care Team Providers Care Mill Machinist Name Role Phone Tracy Olivares MD Primary Care Provider [phone] Nathan Baig MD Unavailable [phone] Reason for Visit * Reason Comments Pain Hip/ Limb * Physical Medicine (Routine) - Pending Review Specialty Diagnoses / Procedures Referred By Heidi iverson Referred To Contact PHYSICAL THERAPY / [facility] Physical Therapy Diagnoses Hip pain, bilateral Bilateral shoulder pain Procedures OFFICE/OUTPATIENT NEW LOW MDM 30-44 MINUTES OFFICE/OUTPT VISIT,NEW,LEVL IV OFFICE/OUTPT VISIT,NEW,LEVL V OFFICE/OUTPT VISIT,EST,LEVL III OFFICE/OUTPT VISIT,EST,LEVL IV OFFICE/OUTPT VISIT,EST,LEVL V Tracy Olivares MD [address] [address] Phone: tel: fax: [facility] Physical Therapy [address] [place] [address] Phone: tel: fax: Referral ID Status Reason Start Date Expiration Date Visits Requested Visits Authorized [id number] Pending Review Physical Therapy 12/16/2023 01/14/2025 12 12 Encounter Details Date Type Department Care Team (Late st Contact Info) Description 01/16/2024 11:00 AM CDT Office Visit [facility] Physical Therapy [address] [facility] [address] [place] [address] Tracy Olivares MD 1188 [facility] [address] [place], [place] [id number] OrtizchikaWhitAshley B, PT [address] [place] [address] Pain Hip/ Limb Social History Tobacco Use [...] as of this encounter Progress Notes * Ashleynicanor Wright, PT - 01/16/2024 11:00 AM CDT Physical Therapy Visit Note: Patient Name: Keegan Amaya Diagnosis: Chronic shoulder pain (primary encounter diagnosis) Hip pain Oa (osteoarthritis) of shoulder Shoulder tendonitis Start Time: 1103 End Time: 1159 Treatment Day: 2 Total Approved Visits: 12 per insurance auth [...] assists mother and sister Hand Dominance: Right SUBJECTIVE Pt was recently prescribed celecoxib by Dr. Tapia, and this seemed to help her back pain so muchthat she didn't even need to take gabapentin those days. However, she experienced some itchiness and became nervous about side effects due to hx of stomach ulcers and concern about heart, kidney, andliver function. The medication did not seem to cause any changes to bowels cause reflux symptoms inthe 3 doses taken. Compliance to Home Program: some Functional changes since last visit: minimal Reported Falls since last visit: denies Medications changes since last visit: took 3 doses of celecoxib OBJECTIVE Treatment provided today: Neuromuscular Re-education - 84352 Number of Minutes - 74843: 10 Intervention: Supine and sitting diaphragmatic breathing. Attempted to use 5lb ankle weight on abdomen for tactile cue, although this was not effective Done to facilitate diaphragmatic movement of exercise Therapeutic Activities - 67072 Number of Minutes - 37524: 15 Intervention: Bed mobility training from supine <--> sit and sit <--> stand with use ofexhale during exertion to improve ease of bed mobility at home and decrease muscle tone/guarding. Self Care - 57966 Number of Minutes - 14306: 31 Education consisting of use of diaphragmatic breathing for stress management, including box breathing with visual aid. Also use of breathing for implementation of functional tasks related to dressingand technical training manager. See assessment for further information ASSESSMENT Advised patient to contact her PCP about the celecoxib concerns. Heavy emphasis on education today,especially related to diaphragm and its relationship to pelvic floor function, digestive function, and autonomic nervous activity. We discussed lifestyle factors and external factors on the diaphragm, including , upper respiratory disease, GI function, and stress. Pt was able to demonstrate adequate belly expansion with inhale in supine but definitely tended to perform anterior chest expansion in sitting with breath holding during transitional movements. Handout issued on diaphragm andpt verbalized good understanding of education, both verbal and written format. Pt continues to demonstrate impaired shoulder A/PROM, decreased shoulder strength, decreased hip AROM, and decreased hipstrength, which limits ease of bed mobility, standing or walking for long periods, and using her arms for normal ADLs. Continue PT per plan. PLAN Patient is scheduled to return 01/31/2024. Next Visit Plan: Continue shoulder isometrics and scapular activation, hip mobility, ongoing pelvicfloor education with heavy focus on diaphragm function. Total Time in Minutes: 56 Timed Code Treatment Minutes: 56 documented in this encounter Plan of Treatment Upcoming Encounters Date Type Department Care Team (Late st Contact Info) Description 10/03/2024 11:00 AM JEWEL GAUGER Office Visit [facility] Medical [facility] Pulmonology Specialty Clinic - [address] [address] Nathan Baig MD [address] [address] 11/14/2024 10:20 AM JEWEL GAUGER Office Visit [facility] Medical Group Multispecialty Care - [place] [address] [address] [place] [address] Tracy Olivares MD [facility] [address] documented as of this encounter Visit Diagnoses Diagnosis Chronic shoulder pain- Primary Pain in joint, shoulder region Hip pain Pain in joint, pelvic region and thigh OA (osteoarthritis) of shoulder Shoulder tendonitis documented in this encounter Additional Health Concerns Assessment Noted Time PHQ-9 Depression Total Score: 2 09/14/19 24 11:30 AM JEWEL GAUGER documented as of this encounter Care Teams Mill Machinist Relationship Specialty Start Date End Date Tracy Olivares MD [address] [place] [address] PCP - General INTERNAL MEDICINE 01/02/21 Nathan Baig MD [address] [address] Consulting Physician Internal Medicine Pulmonary Disease 09/16/21 documented as of this encounter
--- OUTSIDE RECORDS SUMMARY | 2024-09-07 05:23 | XMS_ITS | Encounter Summary ---
Author Organization [facility] Address [address] [place] [address]. [place], [place] [address] [place] [address] Care Team Providers Care On Site Services Specialist Name Role Phone Tracy Olivares MD Primary Care Provider [phone] Nathan Baig MD Unavailable [phone] Encounter Details Date Type Department Care Team (Latest Contact Info) Description 09/14/2023 Travel Social History Tobacco Use Types Packs/Day [...] st Contact Info) Description 10/03/2024 11:00 AM GREASE RACK WORKER Office Visit [facility] Medical [facility] Pulmonology Specialty Clinic - [address] [place] [address] Nathan Baig MD [address] [place] [address] 11/14/2024 10:20 AM GREASE RACK WORKER Office Visit [facility] Medical Group Multispecialty Care - [address] [place] [address] Tracy Olivares MD [address] [place] [address] documented as of this encounter Visit Diagnoses Not on filedocumented in this encounter Additional Health Concerns Assessment Noted Time PHQ-9 Depression Total Score: 2 09/14/19 24 11:30 AM GREASE RACK WORKER documented as of this encounter Care Teams On Site Services Specialist Relationship Specialty Start Date End Date Tracy Olivares MD [address] [place] [address] PCP - General INTERNAL MEDICINE 01/02/21 Nathan Baig MD [address] [address] Consulting Physician Internal Medicine Pulmonary Disease 09/16/21 documented as of this encounter
--- OUTSIDE RECORDS SUMMARY | 2024-09-07 05:23 | XMS_ITS | Encounter Summary ---
Author Organization [facility] - [facility] Address [address] [place] [address]. [place], [place] [address] [place] [address] Care Team Providers Care Lift Team Technician Name Role Phone Tracy Olivares MD Primary Care Provider [phone] Ntahan Baig MD Unavailable [phone] Reason for Referral * Imaging (Routine) - Closed Specialty Diagnoses / Procedures Referred By Contac t Referred To Contact RADIOLOGY Diagnoses Chronic bilateral low back pain with bilateral sciatica Procedures MRI LUMB SPINE WO CON Alesia Rosario, GLORIA [address] [facility] [address] [place] [address] Phone: tel: fax: [facility] [address] [place] [address] [address] [place] [address] Phone: tel: fax: Referral ID Status Reason Start Date Expiration Date Visits Re quested Visits Authorized [id number] Closed 02/24/2024 03/25/2025 1 1 Encounter Details Date Type Department Care Team (Late st Contact Info) Description 02/24/2024 Orders Only [facility] Medical Group Multispecialty Care - [place] [address] [place] [address] Alesia Rosario, PHOTO COLORER [address] [place] [address] Social History Tobacco Use Types Packs/Day [...] st Contact Info) Description 10/03/2024 11:00 AM LOGISTIC MANAGER Office Visit [facility] Medical Group Pulmonology Specialty Clinic - [address] [address] Nathan Baig MD [address] [place] [address] 11/14/2024 10:20 AM LOGISTIC MANAGER Office Visit [facility] Medical Group Multispecialty Care - [place] [address] [address] [place] [address] Tracy Olivares MD [facility] [address] [address] Scheduled Orders Name Type Priority Associated Diagnoses Orde r Schedule MRI LUMB SPINE WO CON MRI Routine Chronic bilateral low back pain with bilateral sciatica Expected: 02/24/2024, Expires: 02/23/2025 documented as of this encounter Visit Diagnoses Diagnosis Chronic bilateral low back pain with bilateral sciatica- Primary documented in this encounter Additional Health Concerns Assessment Noted Time PHQ-9 Depression Total Score: 2 09/14/19 24 11:30 AM LOGISTIC MANAGER documented as of this encounter Care Teams Lift Team Technician Relationship Specialty Start Date End Date Tracy Olivares MD [address] [place] [address] PCP - General INTERNAL MEDICINE 01/02/21 Nathan Baig MD [address] [address] Consulting Physician Internal Medicine Pulmonary Disease 09/16/21 documented as of this encounter
--- OUTSIDE RECORDS SUMMARY | 2024-09-07 05:23 | XMS_ITS | Encounter Summary ---
Author Organization [facility] Address [address] [place] [address]. [place] [id number] [place] [address] Care Team Providers Care Engine Service Repairer Name Role Phone Tracy Olivares MD Primary Care Provider [phone] Nathan Baig MD Unavailable [phone] Reason for Referral * Consultation (Routine) - Closed Specialty Diagnoses / Procedures Referred By Contoziel t Referred To Contact NUTRITION / [facility] Diabetes and Nutrition Diagnoses Class 3 severe obesity due to excess calories without serious comorbidity with body mass index (BMI) of 50.0 to 59.9 in adult (CMS/HCC [facility]) Procedures OFFICE/OUTPATIENT NEW LOW MDM 30-44 MINUTES OFFICE/OUTPT VISIT,NEW,LEVL IV OFFICE/OUTPT VISIT,NEW,LEVL V OFFICE/OUTPT VISIT,EST,LEVL III OFFICE/OUTPT VISIT,EST,LEVL IV OFFICE/OUTPT VISIT,EST,LEVL V Tracy Olivares MD [address] [facility] [address] [place] [address] Phone: tel: fax: [facility] [address] [place] [address] Phone: tel: fax: Referral ID Status Reason Start Date Expiration Date Visits Re quested Visits Authorized [id number] Closed 06/08/2023 07/08/2024 99 99 Encounter Details Date Type Department Care Team (Late Contact Info) Description 06/08/2023 Orders Only [facility] Medical Group Multispecialty [place] [facility] - [address] [place] [address] Ivette Bianchi, RN [address] [facility] [address] [place] [address] Social History Tobacco Use Types Packs/Day Years [...] st Contact Info) Description 10/03/2024 11:00 AM QUALITY ASSURANCE/R&D LAB TECHNICIAN Office Visit [facility] Medical Group Pulmonology Specialty Clinic - [address] [address] Nathan Baig MD [address] [place] [address] 11/14/2024 10:20 AM QUALITY ASSURANCE/R&D LAB TECHNICIAN Office Visit [facility] Medical Group Multispecialty Care - [address] [place] [address] [place] [address] [place] [address] Scheduled Referrals Name Type Priority Associated Diagnoses Orde r Schedule Ambulatory Referral to Dietitian/Nutrition Referral Routine Class 3 severe obesity due to excess calories without serious comorbidity with body mass index (BMI) of 50.0 to 59.9 in adult ([facility]) Ordered: 06/08/2023 documented as of this encounter Visit Diagnoses Diagnosis Class 3 severe obesity due to excess calories without serious comorbidity with body mass index (BMI) of 50.0 to 59.9 in adult ([facility]/HCC [facility])- Primary documented in this encounter Additional Health Concerns Assessment Noted Time PHQ-9 Depression Total Score: 11 023 1:30 PM CDT documented as of this encounter Care Teams Engine Service Repairer Relationship Specialty Start Date End Date Tracy Olivares MD [address] [address] PCP - General INTERNAL MEDICINE 01/02/21 Nathan Baig MD [address] [address] Consulting Physician Internal Medicine Pulmonary Disease 09/16/21 documented as of this encounter
--- OUTSIDE RECORDS SUMMARY | 2024-09-07 05:23 | XMS_ITS | Encounter Summary ---
Author Organization [facility] Address [address] [place] [address]. [place], [place] [address] [place] [address] Care Team Providers Care Bark Press Operator Name Role Phone Tracy Olivares MD Primary Care Provider [phone] Nathan Baig MD Unavailable [phone] Reason for Visit * Reason Onset Date Comments Appointment Request 03/01/2023 Encounter Details Date Type Department Care Team (Late st Contact Info) Description 03/01/[address] [facility] Diabetes and Endocrinology [place] [address] [facility] [place] [address] Appointment Request Social History Tobacco Use Types Packs/Day [...] as of this encounter Progress Notes * Valencia Poole RD - 03/07/2023 1:50 PM CDT No return call received from patient. * Valencia Poole RD - 03/01/2023 2:33 PM CDT Attempted 1st call to patient to schedule an appt to see the dietitian. No answer so vm was left. Attempted 2nd call. documented in this encounter Plan of Treatment Upcoming Encounters Date Type Department Care Team (Late st Contact Info) Description 10/03/2024 11:00 AM JOURNALISTS AND OTHER WRITERS Office Visit [facility] Medical [facility] Pulmonology Specialty Clinic - [address] [address] Nathan Baig MD [address] [place] [address] 11/14/2024 10:20 AM JOURNALISTS AND OTHER WRITERS Office Visit [facility] Medical [facility] Multispecialty Care - [place] [address] [address] [place] [address] Tracy Olivares MD [address] [place] [address] documented as of this encounter Visit Diagnoses Not on filedocumented in this encounter Additional Health Concerns Assessment Noted Time PHQ-9 Depression Total Score: 11 023 1:30 PM CDT documented as of this encounter Care Teams Bark Press Operator Relationship Specialty Start Date End Date Tracy Olivares MD [address] [place] [address] PCP - General INTERNAL MEDICINE 01/02/21 Nathan Baig MD [address] [address] Consulting Physician Internal Medicine Pulmonary Disease 09/16/21 documented as of this encounter
--- OUTSIDE RECORDS SUMMARY | 2024-09-07 05:23 | XMS_ITS | Encounter Summary ---
Author Organization [facility] Address [address] [place] [address]. [place], [place] [address] [place] [address] Care Team Providers Care Global President Name Role Phone Tracy Olivares MD Primary Care Provider [phone] Nathan Baig MD Unavailable [phone] Encounter Details Date Type Department Care Team (Latest Contact Info) Description 07/29/2023 Travel Social History Tobacco Use Types Packs/Day [...] st Contact Info) Description 10/03/2024 11:00 AM DERMATOLOGY PHYSICIAN ASSISTANT Office Visit [facility] Medical Group Pulmonology Specialty Clinic - [address] [place] [address] Nathan Baig MD [address] [place] [address] 11/14/2024 10:20 AM DERMATOLOGY PHYSICIAN ASSISTANT Office Visit [facility] Medical Group Multispecialty Care - [address] [place] [address] Tracy Olivares MD [address] [place] [address] documented as of this encounter Visit Diagnoses Not on filedocumented in this encounter Additional Health Concerns Assessment Noted Time PHQ-9 Depression Total Score: 16 023 3:44 PM CDT documented as of this encounter Care Teams Global President Relationship Specialty Start Date End Date Tracy Olivares MD [address] [place] [address] PCP - General INTERNAL MEDICINE 01/02/21 Nathan Baig MD [address] [address] Consulting Physician Internal Medicine Pulmonary Disease 09/16/21 documented as of this encounter
--- OUTSIDE RECORDS SUMMARY | 2024-09-07 05:23 | XMS_ITS | Encounter Summary ---
Author Organization [facility] Address [address] [place] [address]. [place] [id number] [place] [address] Care Team Providers Care Truck Trailer Mechanic Name Role Phone Tracy Olivares MD Primary Care Provider [phone] Nathan Baig MD Unavailable [phone] Reason for Visit * Reason Comments Joint Pain/Shoulder region * Physical Medicine (Routine) - Pending Review Specialty Diagnoses / Procedures Referred By Heidi iverson Referred To Contact PHYSICAL THERAPY / [facility] Physical Therapy Diagnoses Hip pain, bilateral Bilateral shoulder pain Procedures OFFICE/OUTPATIENT NEW LOW MDM 30-44 MINUTES OFFICE/OUTPT VISIT,NEW,LEVL IV OFFICE/OUTPT VISIT,NEW,LEVL V OFFICE/OUTPT VISIT,EST,LEVL III OFFICE/OUTPT VISIT,EST,LEVL IV OFFICE/OUTPT VISIT,EST,LEVL V rTacy Olivares MD [address] [address] Phone: tel: fax: [facility] Physical Therapy [address] [place] [address] Phone: tel: fax: Referral ID Status Reason Start Date Expiration Date Visits Requested Visits Authorized [id number] Pending Review Physical Therapy 12/16/2023 01/14/2025 12 12 Encounter Details Date Type Department Care Team (Latest Contact Info) Description 03/16/2024 2:15 PM CDT Office Visit [facility] Physical Therapy [address] [facility] [address] [place] [address] Tracy Olivares MD 118[address] [facility] [address] [place] [address] Ly Collado, [place] [address] Joint Pain/Shoulder region Social History Tobacco Use Types Packs/Day Years [...] * Patient Instructions* Ly Collado, PT - 03/16/2024 2:15 PM CDT Access Code: [email or web address] URL: [email or web address] Date: 03/16/2024 Prepared by: Ly Collado Exercises - Seated Scapular Retraction with External Rotation - 1 x daily - 7 x weekly - 2 sets - 10 reps - Shoulder Internal Rotation with Resistance - 1 x daily - 7 x weekly - 2 sets - 10 reps documented in this encounter Progress Notes * Ly Collado PT - 03/16/2024 2:15 PM CDT Physical Therapy Visit Note: Patient Name: Keegan Amaya Diagnosis: Chronic shoulder pain (primary encounter diagnosis) Hip pain Oa (osteoarthritis) of shoulder Shoulder tendonitis Start Time: 1420 End Time: 1500 Treatment Day: 6 Total Approved Visits: 12 per insurance auth [...] and sister Hand Dominance: Right Current HEP: [id number] SUBJECTIVE Saw specialist regarding her bladder issues and is starting physical therapy in [place] for it on 03/27. Hips doing much better but left shoulder throbs and aches a lot. About 5/10 now to her left arm but has been higher. Feels her fan and AC aggravate her arm pain. Compliance to Home Program: some Functional changes since last visit: minimal Reported Falls since last visit: denies Medications changes since last visit: Increased dose of gabapentin, discontinued celebrex, started hydrocodone and meloxicam, which does seem to be helping her sleep OBJECTIVE Treatment provided today: Therapeutic Exercise - 03084 Number of Minutes - 04265: 25 Exercise: NuStep level 6 x5 min (seat at 12, arms at 13) Exercise: held Sidestepping in // bars 2 laps x2 Exercise: Standing hip abduction on floor 2x8 bilaterally Exercise: held Standing with lean on elevated mat 2x8 hip extension bilaterally Exercise: Sitting LAQ without resistance 2 x10 bilaterally Exercise: ham curls red band 2 x 10 Exercise: held standing shoulder flexion left UE on // bar x 10 Exercise: held standing bicep stretch with towel behind back. Exercise: educate on keeping her shoulder warm or keep blanket on her shoulder to stay warm Done to improve lower extremity strength and endurance Neuromuscular Re-education - 95989 Number of Minutes - 30351: 15 Intervention: educated regarding constipation and bowel movement position Intervention:review Supine elevated some to aide with rib position. Added pelvic floor movement with diaphragmatic breathing. Intervention: scapular retract and ER x 10 reps issued red band Intervention: rows with red band x 10 Intervention: single arm row cues for middle and lower trap activation x 10 Intervention: eccentric ER with active IR with red band and towel roll. 1 sec IR and slow 3 sec ER. Intervention: horizontal shoulder abduction seated with red band x 5 and no band x 5 reps Done to facilitate diaphragmatic movement of exercise and core activation with activity. Therapeutic Activities - 02698 Number of Minutes - 72028: held today Intervention: held Standing mini squats on floor [...] stand practice with breathing Self Care - 69097 Number of Minutes - 34742: held Education consisted of reinforcement of previous education, including use of diaphragmatic breathing for stress management and for implementation of functional tasks related to dressing and householdchores. Energy conservation also discussed. ASSESSMENT Addressed many concerns and questions today regarding pelvic floor issues and constipation. Hand out issued regarding bowel movement and positioning. Cont to address LE strength and UE strength. Emphasis on posture for her back and hips and on her scapula for shoulder stability . She did good with activities without increased shoulder pain. Poor standing tolerance and tends to lean fwd. Pt continues to demonstrate impaired shoulder A/PROM, decreased shoulder strength, decreased hip AROM, and decreased hip strength, which limits ease of bed mobility, standing or walking for long periods, and using her arms for normal ADLs. Continue PT per plan. PLAN Patient is scheduled to return 03/28/2024. Next Visit Plan: Continue shoulder isometrics and scapular activation, hip mobility, ongoing pelvicfloor education with heavy focus on diaphragm function. Add core ex as able next visit. And more hip extension to aid with tightness to hip flexors. Total Time in Minutes: 40 Timed Code Treatment Minutes: 40 documented in this encounter Plan of Treatment Upcoming Encounters Date Type Department Care Team (Late st Contact Info) Description 10/03/2024 11:00 AM RAILROAD BRAKE REPAIRER Office Visit [facility] Medical Group [facility] - [place] [address] [facility] [address] [place] [address] Nathan Baig MD [address] [place] [address] [address] [place] [address] 11/14/2024 10:20 AM RAILROAD BRAKE REPAIRER [facility] [place] [address] [address] [place] [address] Tracy Olivares MD [address] [address] documented as of this encounter Visit Diagnoses Diagnosis Chronic shoulder pain- Primary Pain in joint, shoulder region Hip pain Pain in joint, pelvic region and thigh OA (osteoarthritis) of shoulder Shoulder tendonitis documented in this encounter Additional Health Concerns Assessment Noted Time PHQ-9 Depression Total Score: 2 09/14/19 24 11:30 AM RAILROAD BRAKE REPAIRER documented as of this encounter Care Teams Truck Trailer Mechanic Relationship Specialty Start Date End Date Tracy Olivares MD [address] [place] [address] PCP - General INTERNAL MEDICINE 01/02/21 Nathan Baig MD [address] [address] Consulting Physician Internal Medicine Pulmonary Disease 09/16/21 documented as of this encounter
--- OUTSIDE RECORDS SUMMARY | 2024-09-07 05:23 | XMS_ITS | Encounter Summary ---
Author Organization [facility] Address [address] [place] [address]. [place], [place] [address] [place] [address] Care Team Providers Care Hospitality Services Manager Name Role Phone Tracy Olivares MD Primary Care Provider [phone] Nathan Baig MD Unavailable [phone] Marisel Mancini RN Unavailable [phone] Encounter Details Date Type Department Care Team (Latest Contact Info) Description 12/16/2023 Trust Digital Message Enc [facility] Medical [facility] Multispecialty Care - [place] [address] [facility] [address] [place] [address] [facility] Social History Tobacco Use Types Packs/Day Years [...] st Contact Info) Description 10/03/2024 11:00 AM TITLE ONE KINDERGARTEN TEACHER Office Visit [facility] Medical [facility] - [place] [address] [address] [facility] [address] [place] [address] Nathan Baig MD 3 [facility] [address] [place] [address] 11/14/2024 10:20 AM TITLE ONE KINDERGARTEN TEACHER Office Visit [facility] Medical Group Multispecialty Care - [place] [address] [address] [place] [address] Tracy Olivares MD [address] [place] [address] documented as of this encounter Visit Diagnoses Not on filedocumented in this encounter Additional Health Concerns Assessment Noted Time PHQ-9 Depression Total Score: 2 09/14/19 24 11:30 AM TITLE ONE KINDERGARTEN TEACHER documented as of this encounter Care Teams Hospitality Services Manager Relationship Specialty Start Date End Date Tracy Olivares MD [address] [place] [address] PCP - General INTERNAL MEDICINE 01/02/21 Nathan Baig MD 3 [facility] [address] [place] [address] Consulting Physician Internal Medicine Pulmonary Disease 09/16/21 Marisel Mancini, RN [address] [place], [place] [address] Psychologist Experimental (Ambulatory) REGISTERED NURSE 06/28/24 08/07/24 documented as of this encounter
--- OUTSIDE RECORDS SUMMARY | 2024-09-07 05:23 | XMS_ITS | Encounter Summary ---
Author Organization [facility] Address [address] [place] [address]. [place], [place] [address] [place] [address] Care Team Providers Care Hiv Cts Specialist Name Role Phone Tracy Olivares MD Primary Care Provider [phone] Nathan Baig MD Unavailable Marisel Mancini RN Unavailable [phone] Encounter Details Date Type Department Care Team (Late Contact Info) Description 04/04/2023 Therapy Plan [facility] Physical Therapy [address] [place] [address] Ly [place], [place] [address] Social History Tobacco Use Types Packs/Day Years [...] (Late Contact Info) Description 10/03/2024 11:00 AM HYDROELECTRIC MECHANIC Office Visit [facility]ty Clinic - [address] [address] Nathan Baig MD [address] [address] 11/14/2024 10:20 AM HYDROELECTRIC MECHANIC Office Visit [facility] Multispecialty Care - [place] [address] [address] [place] [address] Tracy Olivares MD [address] [address] documented as of this encounter Visit Diagnoses Not on filedocumented in this encounter Additional Health Concerns Assessment Noted Time PHQ-9 Depression Total Score: 11 01/07/ 023 1:30 PM CDT documented as of this encounter Care Teams Hiv Cts Specialist Relationship Specialty Start Date End Date Tracy Olivares MD [address] [place] [address] PCP - General INTERNAL MEDICINE 01/02/21 Nathan Baig MD [address] [address] Consulting Physician Internal Medicine Pulmonary Disease 09/16/21 Marisel Mancini, RN [address] [place] [address] Manager Export (Ambulatory) REGISTERED NURSE 06/28/24 08/07/24 documented as of this encounter
--- OUTSIDE RECORDS SUMMARY | 2024-09-07 05:23 | XMS_ITS | Encounter Summary ---
Author Organization [facility] Address [address] [place] [address]. [place], [place] [address] [place] [address] Care Team Providers Care Communications Director Name Role Phone Tracy Olivares MD Primary Care Provider [phone] Nathan Baig MD Unavailable [phone] Encounter Details Date Type Department Care Team (Latest Contact Info) Description 07/08/2023 Scan HEALTH INFO SRVCS Scanned, Doc Med [...] st Contact Info) Description 10/03/2024 11:00 AM WOOL FLEECE GRADER Office Visit [facility] Medical Group Pulmonology Specialty Clinic - [address] [place] [address] Nathan Baig MD [address] [place] [address] 11/14/2024 10:20 AM WOOL FLEECE GRADER Office Visit [facility] Medical Group Multispecialty Care - [address] [place] [address] [place] [address] [place] [address] documented as of this encounter Visit Diagnoses Not on filedocumented in this encounter Additional Health Concerns Assessment Noted Time PHQ-9 Depression Total Score: 16 023 3:44 PM CDT documented as of this encounter Care Teams Communications Director Relationship Specialty Start Date End Date Tracy Olivares MD [address] [place] [address] PCP - General INTERNAL MEDICINE 01/02/21 Nathan Baig MD [address] [address] Consulting Physician Internal Medicine Pulmonary Disease 09/16/21 documented as of this encounter
--- OUTSIDE RECORDS SUMMARY | 2024-09-07 05:23 | XMS_ITS | Encounter Summary ---
Author Organization [facility] Address [address] [place] [address]. [place] [id number] [place] [id number] Care Team Providers Care Communications Project Lead Name Role Phone Tracy Olivares MD Primary Care Provider [phone] Nathan Baig MD Unavailable [phone] Reason for Visit * Reason Comments Enhanced Encounter Hemorrhoids Follow Up Pt states bladder cruz s fallen and chronic medical issues Encounter Details Date Type Department Care Team (Latest Contact Info) Description 03/20/2024 9:20 AM CDT Office Visit [facility] - [place] [address] [address] [place] [address] Tracy Olivares MD [address] [place] [address] [address] [place] [address] Enhanced Encounter; Hemorrhoids; Follow Up (Pt states bladder has fallen and chronic medical issues) Social History Tobacco Use Types Packs/Day Years [...] Sign Reading Time Taken Comments Blood Pressure 116/75 03/20/2024 9:19 AM CDT Pulse 80 03/20/2024 9:19 AM CDT Temperature 36 ??C (96.8 ??F) 03/20/2024 9:19 AM CDT Respiratory Rate 16 03/20/2024 9:19 AM CDT Oxygen Saturation 98% 03/20/2024 9:19 AM CDT Inhaled Oxygen Concentration - - Weight 125.8 kg (277 lb 6.4 oz) 03/20/2024 9:19 AM CDT Height 160 cm (5' 2.99 ) 03/20/2024 9:19 AM CDT Body Mass Index 49.15 03/20/2024 9:19 AM CDT documented in this encounter Patient Instructions * Patient Instructions* Tracy Olivares MD - 03/20/2024 9:20 AM CDT Follow up in July 2024 for your chronic medical issues. Follow up with getting Shingrix vaccine and RSV vaccine from any local pharmacy. Please use preparation H to help with hemorrhoid. * Attachments The following attachments cannot be sent through Care Everywhere. * Hemorrhoidectomy Discharge Instructions (Frisian) documented in this encounter Progress Notes * Tracy Olivares MD - 03/20/2024 9:20 AM CDTSummary: Enhanced Encounter notes Annual Preventive Visit Reason for Visit: Keegan is an 68-year-old female here for Enhanced Encounter, Hemorrhoids, and Follow Up (Pt states bladder has fallen and chronic medical issues) Patient Care Team: Tracy Olivares MD as PCP - General (INTERNAL MEDICINE) Nathan Baig MD as Consulting Physician (Internal Medicine Pulmonary Disease) History of Present Illness: Hypertension: Patient with history of hypertension for many years now, Currently on losartan hydrochlorothiazide 100-12.5mg daily and endorses compliance. Denies any dizziness on standing, chest pain, cough, palpitations, orthopnea, dyspnea on exertion or chest tightness with activity. No prior echo on file. Does not follow routinely with cardiology. Blood pressure at today's visit is elevated but denies any pain. Prediabetes: Patient with longstanding obesity and impaired glucose tolerance. Was previously on metformin and subsequently switched to Ozempic however patient unable to tolerate dose of medication and this has since been discontinued by patient. Does not follow a particular dietary plan. Does not actively exercise. Has a strong family history of diabetes mellitus. She is on Januvia and tolerating well. Hyperlipidemia: Currently patient is on atorvastatin 20 mg daily. Endorses compliance to medications without any side effects. Denies any muscle cramping. Noted underlining history of hypertension. Obesity: Patient with a BMI of 49.97 kg/m??. Currently not on any dietary plan. Has no routine exercise regimen. Patient was started on Ozempic however this had to be discontinued due to intolerance to medication. Denies any chest pain, dyspnea on exertion. No prior history of weight loss surgery. Chronic low back pain: Patient currently on tramadol, celecoxib and gabapentin and tizanidine. Currently reports her symptoms are stable. Not enrolled in physical therapy currently. No recent falls. Has numbness that runs on the back of both lower extremities- this is long standing and controlled with gabapentin. She waswas referred to pain management and does not want epidural injections for now and has not followed up with them. She follows with ortho- Dr Tapia but only manages her shoulder. She is on norco fornow. Rarely uses it. Left shoulder pain: This is chronic. She has since been seen by orthopedic surgery and received cortisone shots a few months ago but does not want it shots for now. She sees Dr Tapia. Patient admits symptoms are currently stable. No concerns at this time. Depression/generalized anxiety disorder: Longstanding history of depression and anxiety. Currently patient is on Lexapro 10 mg daily. Deniesany suicidal ideation or intentions to harm. Notes her symptoms are stable and she is doing well. Currently does not follow routinely with psychiatry or therapy. FAISAL on CPAP: Patient diagnosed with FAISAL in 2020. She is currently on CPAP. Patient endorses compliance to CPAP. Currently patient follows with pulmonary and sees Dr. Baig. Denies any chronic fatigue at the moment. She has run out of her distilled water and plans on using her CPAP once she gets her distilled water. History of allergic rhinitis: Patient without any acute concerns at the moment. Currently patient is on awct-rjf-kpklqdy antihistamines which helps with symptom controled.. Denies any chronic cough, sore throat, itchiness of eyesat the moment. COPD: Patient with 25-year pack history of smoking. Quit smoking in 1984. Currently follows with pulmonary and currently on albuterol and Trelegy. Denies any chronic cough, chest tightness, dyspnea on exertion or recent admissions for COPD exacerbations. Patient COPD exacerbation. She notes her symptoms are stable. She is doing well. Sees pulmonary. History of cataracts/glaucoma: Patient follows with ophthalmology in an outside facility. Denies any acute changes to her vision. Chronic hearing loss: Patient with chronic mild hearing loss in the left ear. She was seen by ENT many months ago and no interventions planned. Patient tells me she is currently stable. Has underlining allergic rhinitis. Has not noticed any worsening of her hearing loss at the moment. Has never used hearing aids in the past. GERD: Patient tells me she had an EGD done in 2019 at [facility]. [facility]. Currently on Nexium 40 mg daily and famotidine as needed. Denies any melena stool or worsening of GERD symptoms. Restless leg syndrome Patient previously was on ropinirole currently patient tells me her symptoms are stable. Chronic bilateral knee pain and low back pain Still ongoing concerns especially as she is unable to loose weight. Has a referral for physical therapy. She uses tramadol to help with pain. Has a cane and walker at home mostly. She last tripped at [facility] but did not fall. History of mitral valve prolapse noted and stable at this time. She will starting pelvic floor exercising with physical therapy to help with bladder control. She is scheduled already. She has mild urine incontinence and does not want to start taking Mybertriq. She is aware to make us know if her symptoms gets worse. She is seeing urology- Shantel Clark [facility] [employer]. Struggling with hemorrhoids and patient concerned. Discussed preparation H to help with her symptoms. ROS Review of Systems Constitutional: Negative. HENT: Negative. Eyes: Negative. Respiratory: Negative. Cardiovascular: Negative. Gastrointestinal: Negative. Genitourinary: Positive for urgency (Mild to moderate). Negative for decreased urine volume, difficulty urinating, dyspareunia, dysuria, enuresis, flank pain, frequency, genital sores, hematuria, menstrual problem, pelvic pain, vaginal bleeding, vaginal discharge and vaginal pain. Musculoskeletal: Positive for arthralgias and back pain. Negative for gait problem, joint swelling,myalgias, neck pain and neck stiffness. Skin: Negative. Neurological: Negative. Psychiatric/Behavioral: Negative. Medications: Current Outpatient Medications Medication Sig Dispense Refill albuterol sulfate HFA 108 (90 Base) MCG/ACT inhaler Inhale 2 puffs into the lungs every 4 (four) hours as needed. 18 g 5 atorvastatin (LIPITOR) 20 MG tablet Take 1 [...] needed for heart burn. 180 tablet 1 Mgdwcrbcous-Jmmnoiitb-Mkzdgk (TRELEGY ELLIPTA) 100-62.5-25 MCG/ACT AEROSOL POWDER, BREATH ACTIVATEDInhale 1 puff into the lungs daily. 180 each 3 gabapentin (NEURONTIN) 300 MG capsule Take 1 capsule (300 mg total) by mouth 2 (two) times a day. 180 capsule 1 hydrocortisone (PREPARATION H) 1 % rectal cream Place rectally 2 (two) times daily for 14 days. 26 g 3 losartan-hydroCHLOROthiazide (HYZAAR) 100-12.5 MG tablet Take 1 tablet by mouth daily. 90 tablet 3 aspirin 81 MG tablet Take 1 tablet (81 mg total) by mouth daily. AZELASTINE 137 MCG/SPRAY nasal spray Please specify directions, refills and quantity (Patient not taking: Reported on 02/22/2024) 30 mL 0 cetirizine (ZYRTEC) 10 MG tablet Take 1 tablet (10 mg total) by mouth daily. 90 tablet 3 diphenhydrAMINE-zinc (BENADRYL EXTRA STRENGTH) 2-0.1 % Cream cream Use twice daily on skin to help with itching. 28 g 1 fluticasone propionate (FLONASE) 50 MCG/ACT nasal spray 2 sprays by Nasal route daily. (Patient nottaking: Reported on 02/22/2024) 16 g 5 HYDROcodone-acetaminophen (NORCO) 7.5-325 MG tablet Take 1 tablet by mouth 2 (two) times daily as needed for Pain. Indications: Chronic Pain 60 tablet 0 meclizine 12.5 MG tablet Take 1 tablet (12.5 mg total) by mouth nightly as needed. 20 tablet 0 meloxicam (MOBIC) 15 MG tablet Take 1 tablet (15 mg total) by mouth daily as needed. Has tolerated meloxicam 90 tablet 1 mirabegron ER (MYRBETRIQ) 25 MG 24 hr tablet Take 1 tablet (25 mg total) by mouth daily. (Patient not taking: Reported on 02/22/2024) 30 tablet 2 ONETOUCH VERIO test strip (Patient not taking: Reported on 12/16/2023) No current facility-administered medications for this visit. Fall Risk 02/22/2024 5:15 PM 03/20/2024 6:32 PM Ambulatory Fall Risk Assessment One or More Falls No No Feels Unsteady No Yes Worried About Falling No Yes PHQ2/PHQ9 Failed to redirect to the Timeline version of the [employer] SmartLink. Health Maintenance Topic Date Due Zoster Vaccines (1 of 2) Never done RSV Immunization or 60+ Years (1 - 1-dose 60+ series) Never done Annual Medicare Wellness Visit 09/17/2022 COVID-19 Vaccine ( - 2022-24 season) 2023 Mammogram Screening 02/02/2025 Colorectal Cancer Screening Colonoscopy (10 Years) 05/26/2030 DTaP, Tdap and Td Vaccines (2 - Td or Tdap) 07/06/2031 Dexa Scan (General) Completed Pneumococcal Vaccine: 65+ Years Completed Hepatitis C Completed Meningococcal Vaccine Aged Out RSV Immunizations Under 20 Months Aged Out History Past Medical History: Diagnosis Date Anxiety Cataract Chronic low back pain COPD (chronic obstructive pulmonary disease) ([facility]) Depression Diabetes mellitus ([facility]/HCC) GERD (gastroesophageal reflux disease) Glaucoma Hearing loss left ear Hypertension Impaired glucose tolerance Obese FAISAL on CPAP Shoulder pain Past Surgical History: Procedure Laterality Date CHOLECYSTECTOMY HAND SURGERY both hands HYSTERECTOMY Family History Problem Relation Name Age of Onset Diabetes Mother Cancer Father prostate, lymph node Prostate Cancer Father Hyperlipidemia Sister Hypertension Sister Other (diabetes) Sister Other (stomach issues) Brother Other (diverticular) Brother Diabetes Maternal Grandmother Diabetes Paternal Grandmother Glaucoma Paternal Grandmother Social History Socioeconomic History Marital status: Social History Tobacco Use Smoking status: Former Current packs/day: 1.50 Types: Cigarettes Smokeless tobacco: Never Tobacco comments: Counseled by Dr. Olivares. Substance Use Topics Alcohol use: Not Currently Exam Physical Exam Vitals and nursing note reviewed. Constitutional: General: She is not in acute distress. Appearance: She is not ill-appearing, toxic-appearing or diaphoretic. HENT: Right Ear: Tympanic membrane, external ear and ear canal normal. Patient has no impacted cerumen right. Left Ear: Tympanic membrane, external ear and ear canal normal. Patient has no impacted cerumen left. Nose: Nose normal. No congestion. Mouth/Throat: Mucous membranes are moist. No oropharyngeal exudate. Oropharynx is clear. Eyes: General: No scleral icterus. Right eye: No discharge. Conjunctiva/sclera: Conjunctivae normal. Pupils: Pupils are equal, round, and reactive to light. Cardiovascular: Rate and Rhythm: Normal rate and regular rhythm. Pulses: Normal pulses. Heart sounds: Normal heart sounds. No murmur heard. Pulmonary: Effort: Pulmonary effort is normal. No respiratory distress. Breath sounds: Normal breath sounds. No stridor. Abdominal: General: Abdomen is flat. Palpations: Abdomen is soft. There is no mass. Musculoskeletal: General: No swelling, tenderness, deformity or signs of injury. Normal range of motion. Skin: General: Skin is warm. Coloration: Skin is not jaundiced or pale. Neurological: General: No focal deficit present. Mental Status: She is oriented to person, place, and time. Sensory: No sensory deficit. Motor: No weakness. Coordination: Coordination normal. Gait: Gait normal. Deep Tendon Reflexes: Reflexes normal. Psychiatric: Mood and Affect: Mood normal. Behavior: Behavior normal. Thought Content: Thought content normal. Judgment: Judgment normal. Filed Vitals: 03/20/24 0919 BP: 116/75 Pulse: 80 Resp: 16 Temp: 96.8 ??F (36 ??C) TempSrc: Temporal SpO2: 98% Weight: 125.8 kg (277 lb 6.4 oz) Height: 1.6 m (5' 2.99 ) Diagnoses/Impression 1. General medical exam URINALYSIS AUTO DIP HEMOGLOBIN, GLYCOSYLATED TSH W/REFLEX LIPID PANEL COMPREHENSIVE METABOLIC PANEL CBC W/DIFF AUTOMATED VENIPUNC ARM DRAW 2. Annual physical exam URINALYSIS AUTO DIP HEMOGLOBIN, GLYCOSYLATED TSH W/REFLEX LIPID PANEL COMPREHENSIVE METABOLIC PANEL CBC W/DIFF AUTOMATED VENIPUNC ARM DRAW 3. Chronic bilateral low back pain with bilateral sciatica 4. Idiopathic peripheral neuropathy gabapentin (NEURONTIN) 300 MG capsule 5. Gastroesophageal reflux disease without esophagitis famotidine (PEPCID) 20 MG tablet esomeprazole (NEXIUM) 40 MG capsule 6. Overactive bladder 7. Prediabetes empagliflozin (JARDIANCE) 10 MG tablet 8. Essential hypertension losartan-hydroCHLOROthiazide (HYZAAR) 100-12.5 MG tablet 9. Vitamin D deficiency 10. Moderate episode of recurrent major depressive disorder ([facility]) 11. Anxiety 12. Class 3 severe obesity due to excess calories without serious comorbidity with body mass index (BMI) of 45.0 to 49.9 in adult ([facility]) 13. Postmenopausal 14. Seasonal allergic rhinitis due to pollen albuterol sulfate HFA 108 (90 Base) MCG/ACT inhaler 15. FAISAL on CPAP 16. RLS (restless legs syndrome) 17. Hearing loss of left ear, unspecified hearing loss type 18. Mixed hyperlipidemia atorvastatin (LIPITOR) 20 MG tablet 19. Glaucoma, unspecified glaucoma type, unspecified laterality 20. Abnormal finding of blood chemistry, unspecified CBC W/DIFF AUTOMATED 21. Hemorrhoids, unspecified hemorrhoid type hydrocortisone (PREPARATION H) 1 % rectal cream 22. Pulmonary emphysema, unspecified emphysema type ([facility]) Ymqbuwezxru-Lavnwnteu-Tllyzw (TRELEGY ELLIPTA) 100-62.5-25 MCG/ACT AEROSOL POWDER, BREATH ACTIVATED 23. Impaired glucose tolerance in obese empagliflozin (JARDIANCE) 10 MG tablet 24. Type 2 diabetes mellitus with hyperglycemia, without long-term current use of insulin ([facility]) 1. General medical exam -Patient past medical, surgical, family history and social history updated. Allergies, immunizations and medications updated. Also did discuss healthy lifestyle including exercising, dietary changes and safe sexual practices as well as safe habits common to patient age group including wearing seat belt when transporting in a vehicle and limiting alcohol and avoiding smoking/second hand smoking. Patient will set up MyChart. Patient will fax over any remaining outside records that would be relevant to care provided. - URINALYSIS AUTO DIP - HEMOGLOBIN, GLYCOSYLATED; Future - TSH W/REFLEX; Future - LIPID PANEL; Future - COMPREHENSIVE METABOLIC PANEL; Future - CBC W/DIFF AUTOMATED; Future - VENIPUNC ARM DRAW - HEMOGLOBIN, GLYCOSYLATED - TSH W/REFLEX - LIPID PANEL - COMPREHENSIVE METABOLIC PANEL - CBC W/DIFF AUTOMATED 2. Annual physical exam -Discussed breast cancer screening and screen per patient preference and guidelines. Self-breast exams are a level D recommendation by the USPSTF. Follow up with primary care provider or gynecologistif any abnormalities are noted. Mammograms should continue annually. Reviewed with the patient BMI,blood pressure, diet, exercise, and encouraged healthy lifestyle choices. I recommended weight-bearing exercise to decrease risks of osteoporosis. Screened for substance use, risk factors for STIs, diet and exercise habits, and symptoms of depression. Colon screening starting at 45. Recommended preventive immunizations according to age. - URINALYSIS AUTO DIP - HEMOGLOBIN, GLYCOSYLATED; Future - TSH W/REFLEX; Future - LIPID PANEL; Future - COMPREHENSIVE METABOLIC PANEL; Future - CBC W/DIFF AUTOMATED; Future - VENIPUNC ARM DRAW - HEMOGLOBIN, GLYCOSYLATED - TSH W/REFLEX - LIPID PANEL - COMPREHENSIVE METABOLIC PANEL - CBC W/DIFF AUTOMATED 3. Chronic bilateral low back pain with bilateral sciatica -Currently patient symptoms stable. Intermittently has flareups. Recently had MRI of the lumbar spine which is yet to be scanned into the chart with did show moderate to severe arthritis changes. Galdino been referred to pain management and patient tells me at today's visit that she declined epidural injections. Also enrolled in physical therapy from time to time. She is currently on [place] on an as-needed basis and using very judiciously. No recent falls. Patient aware to follow-up with pain management if his symptoms continue to worsen. -Continue with gabapentin 300 mg twice daily. Currently not on muscle relaxants due to sedative side effects. On meloxicam 15 mg as needed however this causes extreme itching. She is aware to use Benadryl as needed if she really needs to take her meloxicam. Side effects discussed. 4. Idiopathic peripheral neuropathy -Currently has symptoms stable. Close monitoring. -Continue with gabapentin (NEURONTIN) 300 MG capsule; Take 1 capsule (300 mg total) by mouth 2 (two) times a day. Dispense: 180 capsule; Refill: 1 5. Gastroesophageal reflux disease without esophagitis -Stable symptoms -Continue with famotidine (PEPCID) 20 MG tablet; Take one tablet two times daily as needed for heart burn. Dispense: 180 tablet; Refill: 1 -Continue with esomeprazole (NEXIUM) 40 MG capsule; Take 1 capsule (40 mg total) by mouth every morning before breakfast. Dispense: 90 capsule; Refill: 1 6. Overactive bladder -Patient recently started on Myrbetriq. She has not picked up her prescription. She has also been referred to urology and reports she did see them and Myrbetriq was also suggested. She is enrolled inphysical therapy and thinks physical therapy helping some. Needing to wear a pad on a regular basisto avoid leakage of urine. Close monitoring for now. No suspicion for bladder infection. Checking UA as part of her physical and urine results came back looking normal 7. Prediabetes -Stable -Continue with empagliflozin (JARDIANCE) 10 MG tablet; Take 1 tablet (10 mg total) by mouth daily. Dispense: 90 tablet; Refill: 1 8. Essential hypertension -Controlled -Patient currently controlled on current treatment for hypertension. Will continue. Continued to discuss weight loss, adequate cardiovascular fitness. DASH diet was discussed as well as decrease in sodium intake. BP goal of < 140/90 expressed. - Lifestyle modification including dietary changes to include less saturated fats, lean meat, more vegetables and exercise at least 30 min every day. -Continue with losartan-hydroCHLOROthiazide (HYZAAR) 100-12.5 MG tablet; Take 1 tablet by mouth daily. Dispense: 90 tablet; Refill: 3 9. Vitamin D deficiency -Continue supplementation 10. Moderate episode of recurrent major depressive disorder ([facility]) -Stable symptoms at this time. Close monitoring. Patient off her antidepressants. Close monitoring. 11. Anxiety -Stable symptoms at this time. Close monitoring. Patient off her antidepressant and antianxiety medication. Close monitoring. 12. Class 3 severe obesity due to excess calories without serious comorbidity with body mass index (BMI) of 45.0 to 49.9 in adult ([facility]) --Pt has elevated weight with BMI Body mass index is 49.15 kg/m??., and will need to work hard on reducing carbohydrates and total calories. -You may use the free smart phone apps such as zipcodemailer.com to help track calories and try to reduce by 15% every 4 weeks. -Patient will work on reducing total portion sizes to try to reduce the size of their stomach. -Exercising about 30 minutes every day with cardio work outs. -Avoid regular soda, juices and alcohol. -Recommended limiting GPS foods (Grains, Potatoes, Sugars) as much as possible. Eating food that itis not highly processed and that they can recognize. Eating when they are hungry and not by a time schedule. -Lets aim to have them loose about 1 pound per week and 5 pounds per month. 13. Postmenopausal -Noted and stable. Close monitoring. 14. Seasonal allergic rhinitis due to pollen -Continue with albuterol sulfate HFA 108 (90 Base) MCG/ACT inhaler; Inhale 2 puffs into the lungs every 4 (four) hours as needed. Dispense: 18 g; Refill: 5 -Stable 15. FAISAL on CPAP -Continue with CPAP machine. Close follow-up with pulmonary 16. RLS (restless legs syndrome) -Symptoms currently stable. Continue gabapentin 300 mg twice daily 17. Hearing loss of left ear, unspecified hearing loss type -Noted and stable. Close monitoring. 18. Mixed hyperlipidemia -Continue with atorvastatin (LIPITOR) 20 MG tablet; Take 1 tablet (20 mg total) by mouth nightly atbedtime. at bedtime Dispense: 90 tablet; Refill: 1 19. Glaucoma, unspecified glaucoma type, unspecified laterality -Stable symptoms. Close follow-up with ophthalmology 20. Abnormal finding of blood chemistry, unspecified - CBC W/DIFF AUTOMATED; Future - CBC W/DIFF AUTOMATED 21. Hemorrhoids, unspecified hemorrhoid type -Uncontrolled. Increase fiber intake. Ensure adequate hydration. Close follow-up if worsening symptoms -Start hydrocortisone (PREPARATION H) 1 % rectal cream; Place rectally 2 (two) times daily for 14 days. Dispense: 26 g; Refill: 3 22. Pulmonary emphysema, unspecified emphysema type (CMS/HCC HHS/HCC) -Stable. Continue albuterol as needed. Close follow-up pulmonary -Continue with Dgiafuutpuu-Vfjenxnat-Pfenqa (TRELEGY ELLIPTA) 100-62.5-25 MCG/ACT AEROSOL POWDER, BREATH ACTIVATED; Inhale 1 puff into the lungs daily. Dispense: 180 each; Refill: 3 23. Impaired glucose tolerance in obese -Stable. -Continue with empagliflozin (JARDIANCE) 10 MG tablet; Take 1 tablet (10 mg total) by mouth daily. Dispense: 90 tablet; Refill: 1 24. Type 2 diabetes mellitus with hyperglycemia, without long-term current use of insulin ([facility]) -Stable. -Continue with empagliflozin (JARDIANCE) 10 MG tablet; Take 1 tablet (10 mg total) by mouth daily. Dispense: 90 tablet; Refill: 1 Orders Placed This Encounter VENIPUNC ARM DRAW URINALYSIS AUTO DIP HEMOGLOBIN, GLYCOSYLATED TSH W/REFLEX LIPID PANEL COMPREHENSIVE METABOLIC PANEL CBC W/DIFF AUTOMATED hydrocortisone (PREPARATION H) 1 % rectal cream famotidine (PEPCID) 20 MG tablet Ndvblvggret-Mxzcbasip-Dezawi (TRELEGY ELLIPTA) 100-62.5-25 MCG/ACT AEROSOL POWDER, BREATH ACTIVATED losartan-hydroCHLOROthiazide (HYZAAR) 100-12.5 MG tablet empagliflozin (JARDIANCE) 10 MG tablet albuterol sulfate HFA 108 (90 Base) MCG/ACT inhaler atorvastatin (LIPITOR) 20 MG tablet gabapentin (NEURONTIN) 300 MG capsule esomeprazole (NEXIUM) 40 MG capsule I personally spent a total of 60 minutes on the day of the encounter. This includes [id number] and pnd-kiof-fq-face time I provided on the day of the encounter & excludes time spent performing separately reportable services. 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 Office Visit [facility] Pulmonology Specialty Clinic - [address] [address] Nathan Baig MD [address] [place] [address] 11/14/2024 10:20 AM PIECE CUTTER Office Visit [facility] Medical Group Multispecialty Care - [place] [address] [address] [place] [address] Tracy Olivares MD [address] [place] [address] [address] [place] [address] documented as of this encounter Procedures Procedure Name Priority Date/Time Associated Diagnosis Comments TSH W/REFLEX Routine 03/23/2024 10:43 AM CDT General medical exam Annual physical exam HEMOGLOBIN, GLYCOSYLATED Routine 03/23/2024 10:43 AM CDT General medical exam Annual physical exam COMPREHENSIVE METABOLIC PANEL Routine 03/23/2024 10:43 AM CDT General medical exam Annual physical exam LIPID PANEL Routine 03/23/2024 10:43 AM CDT General medical exam Annual physical exam CBC W/DIFF AUTOMATED Routine 03/23/2024 10:43 AM CDT General medical exam Annual physical exam Abnormal finding of blood chemistry, unspecified VENIPUNC ARM DRAW Routine 03/20/2024 9:5 1 AM CDT General medical exam Annual physical exam URINALYSIS AUTO DIP Routine 03/20/2024 General medical exam Annual physical exam documented in this encounter Results * CBC W/DIFF AUTOMATED (03/23/2024 10:43 AM CDT) WBC 5.8 3.8 - 10.8 Thousand/u L [facility] RBC 4.26 3.80 - 5.10 Million/uL [facility] HGB 12.5 11.7 - 15.5 g/dL [facility] HCT 38.4 35.0 - 45.0 % [facility] MCV 90.1 80.0 - 100.0 fL [facility] MCH 29.3 27.0 - 33.0 pg [facility] MCHC 32.6 32.0 - 36.0 g/dL [facility] RDW 14.4 11.0 - 15.0 % [facility] PLT 270 140 - 400 Thousand/u L [facility] MPV 10.5 7.5 - 12.5 fL [facility] ABS. NEUTROPHILS 3,770 1,500 - 7,800 cells/uL [facility] ABS. LYMPHOCYTES 1,398 850 - 3,900 cells/uL [facility] ABS. MONOCYTES 406 200 - 950 cells/uL [facility] ABS. EOSINOPHILS 197 15 - 500 cells/uL [facility] ABS. BASOPHILS 29 0 - 200 cells/uL [facility] SEG NEUTROPHILS 65 % [facility] LYMPHOCYTES 24.1 % [facility] MONOCYTES 7.0 % [facility] EOSINOPHILS 3.4 % [facility] BASOPHILS 0.5 % [facility] 03/23/2024 10:4 3 AM CDT 03/24/2024 3:18 AM CDT Narrative Resulting Agency Comment Performing Organization Information: ?Site ID: [id number] ?Name: [facility] ?Address: [address] [place] [id number] ?Director: Mahin Mckeon MD Tracy Olivares MD LABORATORY Final Result [facility] [address] [place], [place] [address] * COMPREHENSIVE METABOLIC PANEL (03/23/2024 10:43 AM CDT) GLUCOSE 92 65 - 99 mg/dL [facility] Comment: ? Fasting reference interval BUN 13 7 - 25 mg/dL [facility] CREATININE S/P/B 0.78 0.50 - 1.05 mg/dL [facility] GFR ESTIMATE 83 > OR = 60 mL/min/1. 73m2 [facility] BUN CREATININE RATIO SEE NOTE: (calc) [facility] Comment: ?? Not Reported: BUN and Creatinine are within ?? reference range. ? SODIUM S/P/B 141 135 - 146 mmol/L [facility] POTASSIUM S/P/B 4.1 3.5 - 5.3 mmol/L [facility] CHLORIDE S/P/B 102 98 - 110 mmol/L [facility] CO2 30 20 - 32 mmol/L [facility] [place] CALCIUM S/P/B 9.2 8.6 - 10.4 mg/dL [facility] TOTAL PROTEIN S/P/B 6.7 6.1 - 8.1 g/dL [facility] ALBUMIN S/P/B 3.8 3.6 - 5.1 g/dL [facility] GLOBULIN 2.9 1.9 - 3.7 g/dL (calc) [facility] ALBUMIN/GLOBULI N RATIO 1.3 1.0 - 2.5 (calc) [employer] [facility] BILIRUBIN TOTAL S/P/B 0.5 0.2 - 1.2 mg/dL [facility] ALKALINE PHOSPHATASE S/P/B 142 37 - 153 U/L [facility] AST 13 10 - 35 U/L [employer] [facility] ALT 11 6 - 29 U/L [facility] 03/23/2024 10:4 3 AM CDT 03/24/2024 3:18 AM CDT Narrative Resulting Agency Comment Performing Organization Information: ?Site ID: [place] ?Name: [facility] ?Address: [address] [place] [id number] ?Director: Mahin Mckeon MD Tracy Olivares MD LABORATORY Final Result [facility] DEEPTI Robert [facility] [id number] [place], [place] [address] [address] * LIPID PANEL (03/23/2024 10:43 AM CDT) CHOLESTEROL 125 <200 mg/dL [facility] HDL 62 > OR = 50 mg/dL [facility] TRIGLYCERIDES 83 <150 mg/dL [facility] LDL (CALCULATED) 46 mg/dL (calc) [facility] Comment: Reference range: <100 Desirable range <100 mg/dL for primary prevention; ?? <70 mg/dL for patients with CHD or diabetic patients with > or = 2 CHD risk factors. LDL-C is now calculated using the Go calculation, which is a validated novel method providing better accuracy than the Friedewald equation in the estimation of LDL-C. Buddy ANAND et al. PORTER. 2013;310(11): 6254-8871 (http://education.[employer]/faq/UJB905) CHOL/HDL RATIO 2.0 <5.0 (calc) [employer] DIAGNOSTICS [facility] NON HDL CHOLESTEROL 63 <130 mg/dL (calc) [employer] [facility] Comment: For patients with diabetes plus 1 major ASCVD risk factor, treating to a non-HDL-C goal of <100 mg/dL (LDL-C of <70 mg/dL) is considered a therapeutic option. 03/23/2024 10:4 3 AM CDT 03/24/2024 3:18 AM CDT Narrative Resulting Agency Comment Performing Organization Information: ?Site ID: JACKY ?Name: [facility] ?Address: [facility] [place] [address] ?Director: Mahin Mckeon MD Tracy Olivares MD LABORATORY Final Result Performing Organization Address City/[facility]/ZIP Co de Phone Number [facility] Jakob CABAN [facility] [address] [place] [address], * TSH W/REFLEX (03/23/2024 10:43 AM CDT) TSH 2.24 0.40 - 4.50 mIU/L [facility] 03/23/2024 10:4 3 AM CDT 03/24/2024 3:18 AM CDT Narrative Resulting Agency Comment Performing Organization Information: ?Site ID: JACKY ?Name: [facility] ?Address: [address] [place], [place] [address]ner [facility] [place] [address] ?Director: Mahin Mckeon MD Tracy Olivares MD LABORATORY Final Result Performing Organization Address City/[facility]/ZIP Co de Phone Number [employer] [facility] [address] [place] [address], [place] * (ABNORMAL) HEMOGLOBIN, GLYCOSYLATED (03/23/2024 10:43 AM CDT) Pathologist [facility] HGB A1C 6.1(H) <5.7 % of total Hgb [facility] Comment: For someone without known diabetes, a [...] change in test platforms from the [employer] to the Tanisha jarrett c503 may have shifted HbA1c results compared to historical results. Based on laboratory validation testing conducted at [employer], the Tanisha platform relative to the Cohen [...] Agency Comment Performing Organization Information: ?Site ID: [place] ?Name: [facility] ?Address: [address] [address] [address] ?Director: Mahin Mckeon MD us Tracy Olivares MD LABORATORY Final Result [facility] [employer] [facility] [address] [address] [address], [place] * (ABNORMAL) URINALYSIS AUTO DIP (03/20/2024) [facility] COLOR (U) YELLOW YELLOW [address], [place] TRANSPARENCY CLEAR CLEAR [address], [place] GLUCOSE (U) 500 mg/dl(A) NEGATIVE MG/DL MG[address], [place] BILIRUBIN (U) NEGATIVE NEGATIVE MG-[address], [place] KETONES MG/DL (U) NEGATIVE NEGATIVE MG/DL MG[address], [place] SPECIFIC GRAVITY (U) 1.020 1.001 - 1.035 MG[address], [place] BLOOD (U) NEGATIVE NEGATIVE MG[address], [place] U PH 6.0 5.0 - 9.0 MG[address], [place] PROTEIN (U) NEGATIVE NEGATIVE mg/dL MG-[address], [place] UROBILINOGEN 0.2 0.2 - 1.0 EU/dL = mg/dL MG-[address], [place] NITRITES NEGATIVE NEGATIVE MG/DL MG-[address], [place] LEUKOCYTES (U) NEGATIVE NEGATIVE MG-[address], [place] URINE SPECIMEN OBTAINED BY CLEAN CATCH PROCEDURE / Unknown 03/20/2024 Trayc Olivares MD URINE ORDERABLES Final Result [address], [place] [address] [place] [address], documented in this encounter Visit Diagnoses Diagnosis General medical exam- Primary Unspecified general medical examination Annual physical exam Routine general medical examination at a health care facility Chronic bilateral low back pain with bilateral sciatica Idiopathic peripheral neuropathy Unspecified hereditary and idiopathic peripheral neuropathy Gastroesophageal reflux disease without esophagitis Esophageal reflux Overactive bladder Hypertonicity of bladder Prediabetes Other abnormal glucose Essential hypertension Unspecified essential hypertension Vitamin D deficiency Unspecified vitamin D deficiency Moderate episode of recurrent major depressive disorder ([facility]) Anxiety Anxiety state, unspecified Class 3 severe obesity due to excess calories without serious comorbidity with body mass index (BMI) of 45.0 to 49.9 in adult ([facility]) Postmenopausal Asymptomatic postmenopausal status (age-related) (natural) Seasonal allergic rhinitis due to pollen FAISAL on CPAP Obstructive sleep apnea (adult) (pediatric) RLS (restless legs syndrome) Restless legs syndrome (RLS) Hearing loss of left ear, unspecified hearing loss type Mixed hyperlipidemia Glaucoma, unspecified glaucoma type, unspecified laterality Abnormal finding of blood chemistry, unspecified Hemorrhoids, unspecified hemorrhoid type Pulmonary emphysema, unspecified emphysema type ([facility] HHS/HCC) Impaired glucose tolerance in obese Other abnormal glucose Type 2 diabetes mellitus with hyperglycemia, without long-term current use of insulin ([facility] HHS/[facility]) documented in this encounter Additional Health Concerns Assessment Noted Time PHQ-9 Depression Total Score: 2 09/14/19 24 11:30 AM PIECE CUTTER documented as of this encounter Care Teams Communications Project Lead Relationship Specialty Start Date End Date Tracy Olivares MD [address] [address] PCP - General INTERNAL MEDICINE 01/02/21 Nathan Baig MD [address] [address] Consulting Physician Internal Medicine Pulmonary Disease 09/16/21 documented as of this encounter
--- OUTSIDE RECORDS SUMMARY | 2024-09-07 05:23 | XMS_ITS | Encounter Summary ---
Author Organization [facility] - [facility] Address [address] [place] [address]. [place] [id number] [place] [address] Care Team Providers Care Basketball Referee Name Role Phone Tracy Olivraes MD Primary Care Provider [phone] Nathan Baig MD Unavailable [phone] Reason for Visit * Reason Onset Date Comments Orders 07/07/2023 Encounter Details Date Type Department Care Team (Late st Contact Info) Description 07/07/2023 Telephone [facility] Medical Group Multispecialty Care - [place] [address] [address] [place] [address] [place] [address] [place] [address] [address] [place], [place] [id number] Orders Social History Tobacco Use Types Packs/Day [...] encounter Progress Notes * Bahman Conrad - 07/12/2023 10:24 AM CDT Paperwork faxed to [facility] on 07/11/23. * Bahman Conrad - 07/07/2023 12:43 PM CDT Patient is requesting [facility] [employer] [facility]. documented in this encounter Plan of Treatment Upcoming Encounters Date Type Department Care Team (Late st Contact Info) Description 10/03/2024 11:00 AM FERMENTER OPERATOR Office Visit [facility] Medical [facility] Pulmonology Specialty Clinic - [address] [address] Nathan Baig MD [address] [address] 11/14/2024 10:20 AM FERMENTER OPERATOR Office Visit [facility] Multispecialty Care - [place] [address] [address] [place] [address] Tracy Olivares MD [address] [place] [address] documented as of this encounter Visit Diagnoses Not on filedocumented in this encounter Additional Health Concerns Assessment Noted Time PHQ-9 Depression Total Score: 16 023 3:44 PM CDT documented as of this encounter Care Teams Basketball Referee Relationship Specialty Start Date End Date Tracy Olivares MD [address] [place] [address] PCP - General INTERNAL MEDICINE 01/02/21 Nathan Baig MD [address] [address] Consulting Physician Internal Medicine Pulmonary Disease 09/16/21 documented as of this encounter
--- OUTSIDE RECORDS SUMMARY | 2024-09-07 05:23 | XMS_ITS | Encounter Summary ---
Author Organization [facility] Address [address] [place] [address]. [place] [id number] [place], [place] [id number] Care Team Providers Care Ore Mixer Name Role Phone Tracy Olivares MD Primary Care Provider [phone] Nathan Baig MD Unavailable [phone] Reason for Referral * Consultation/Treatment (Routine) - Pending Review Specialty Diagnoses / Procedures Referred By Heidi iverson Referred To Contact PAIN MANAGEMENT Diagnoses Chronic bilateral low back pain with bilateral sciatica Procedures OFFICE/OUTPATIENT NEW LOW MDM 30-44 MINUTES OFFICE/OUTPT VISIT,NEW,LEVL IV OFFICE/OUTPT VISIT,NEW,LEVL V OFFICE/OUTPT VISIT,EST,LEVL III OFFICE/OUTPT VISIT,EST,LEVL IV OFFICE/OUTPT VISIT,EST,LEVL V Tracy Olivares MD [address] [place] [address] [place] [address] Phone: tel: fax: [facility] ([facility]) [address] [place] [address] [address] Phone: tel: fax: Referral ID Status Reason Start Date Expiration Date Visits Requested Visits Authorized [id number] Pending Review Specialty Services 02/22/2024 02/21/2025 99 99 Scheduling Instructions Want it locally. Reason for Visit * Reason Comments Follow Up Back Pain Pain Pelvic Pain Pelvic/back pain has been going on for 2 months. Pt states they take tramadol, gabapentin, Celebrex, and tylenol for the pain but it is not helping. Encounter Details Date Type Department Care Team (Latest Contact Info) Description 02/22/2024 4:20 PM CDT Office Visit [facility] Multispecialty Care - [place] [address] [address] [place] [address] Tracy Olivares MD [address] [facility] 157 [place], [place] [id number] Follow Up; Back Pain (Pain ); Pelvic Pain (Pelvic/back pain has been going on for 2 months. Pt states they take tramadol, gabapentin, Celebrex, and tylenol for the pain but it is not helping. ) Social History Tobacco Use Types Packs/Day [...] Sign Reading Time Taken Comments Blood Pressure 126/77 02/22/2024 4:16 PM CDT Pulse 83 02/22/2024 4:16 PM CDT Temperature 36.4 ??C (97.6 ??F) 02/22/2024 4:16 PM CD T Respiratory Rate 18 02/22/2024 4:16 PM CDT Oxygen Saturation 99% 02/22/2024 4:16 PM CDT Inhaled Oxygen Concentration - - Weight 125.8 kg (277 lb 6.4 oz) 02/22/2024 4:16 PM CDT Height 160 cm (5' 2.99 ) 02/22/2024 4:16 PM CDT Body Mass Index 49.15 02/22/2024 4:16 PM CDT documented in this encounter Patient Instructions * Patient Instructions* Tracy Olivares MD - 02/22/2024 4:20 PM CDT Please continue with physical therapy as you are scheduled already. * Attachments The following attachments cannot be sent through Care Everywhere. * Back Stretches Standing or Seated (Sudanese) documented in this encounter Progress Notes * Tracy Olivares MD - 02/22/2024 4:20 PM CDTSummary: Acute visit notes We can plan to get Internal Medicine Outpatient Progress Note CC: Follow Up, Back Pain (Pain ), and Pelvic Pain (Pelvic/back pain has been going on for 2 months.Pt states they take tramadol, gabapentin, Celebrex, and tylenol for the pain but it is not helping.) HPI: Keegan Amaya is a 68-year-old female who presents for an acute visit for low back pain that recently got worse over the last 48 hours. She reports the pain started acting up the last 48 hours. She reports the pain is worse usually the night prior the onset of this new exacerbation. She rates the pain as mild to moderate now. She rates her pain as severe when it started. Movement worsens the pain and laying down. She reports the left leg throbbing more on the back than the front. She is not having some numbness in the right leg but is not changed from her baseline. She is only given 14 tablets at this time due to her pharmacy and rationing medication. Problem List Patient Active Problem List Diagnosis Current moderate episode of major depressive disorder ([facility]) Essential hypertension Gastroesophageal reflux disease Hearing loss Impaired glucose tolerance in obese Shoulder pain Chronic low back pain with bilateral sciatica Obesity Lumbar herniated disc FAISAL on CPAP Glaucoma Cataract Anxiety Knee pain Mixed hyperglyceridemia Prediabetes Other specified anemias RLS (restless legs syndrome) Mixed hyperlipidemia Moderate persistent asthma without complication ([facility]) Past Medical History: Diagnosis Date Anxiety Cataract Chronic low back pain COPD (chronic obstructive pulmonary disease) ([facility]) Depression Diabetes mellitus ([facility]) GERD (gastroesophageal reflux disease) Glaucoma Hearing [...] Paternal Grandmother Glaucoma Paternal Grandmother Social History Tobacco Use Smoking status: Former Current packs/day: 1.50 Types: Cigarettes Smokeless tobacco: Never Tobacco comments: Counseled by Dr. Olivares. Vaping Use Vaping status: Never Used Substance Use Topics Alcohol use: Not Currently Drug use: Not Currently Medications: Outpatient Medications Marked as Taking for the 02/22/24 encounter (Office Visit) with Tracy Olivares MD Medication Sig Dispense Refill albuterol sulfate HFA [...] to help with itching. 28 g 1 esomeprazole (NEXIUM) 40 MG capsule Take 1 capsule (40 mg total) by mouth every morning before breakfast. 90 capsule 1 Ztkrgepcrbi-Sbapgmfaz-Keylkg (TRELEGY ELLIPTA) 100-62.5-25 MCG/ACT AEROSOL POWDER, BREATH ACTIVATEDInhale 1 puff into the lungs daily. 180 each 3 gabapentin (NEURONTIN) 300 MG capsule Take 1 capsule (300 mg total) by mouth 2 (two) times a day. 180 capsule 1 HYDROcodone-acetaminophen (NORCO) 7.5-325 MG tablet Take 1 tablet by mouth 2 (two) times daily as needed for Pain. Indications: Chronic Pain 60 tablet 0 JARDIANCE 10 MG tablet take 1 tablet by mouth every day 90 tablet 1 losartan-hydroCHLOROthiazide (HYZAAR) 100-12.5 MG tablet take 1 tablet by mouth every day 90 tablet3 meclizine 12.5 MG tablet Take 1 tablet (12.5 mg total) by mouth nightly as needed. 20 tablet 0 meloxicam (MOBIC) 15 MG tablet Take 1 tablet (15 mg total) by mouth daily as needed. Has tolerated meloxicam 90 tablet 1 Allergies: Review of patient's allergies indicates: Allergen Reactions Celebrex [Celecoxib] Itching Propoxyphene Unknown Review of Systems Constitutional: Negative for chills, diaphoresis, fever, malaise/fatigue and weight loss. HENT: Negative. Eyes: Negative. Respiratory: Negative. Cardiovascular: Negative for chest pain, palpitations, orthopnea, claudication, leg swelling and PND. Gastrointestinal: Negative. Genitourinary: Negative. Musculoskeletal: Positive for back pain and joint pain. Negative for falls, myalgias and neck pain. Neurological: Negative. Psychiatric/Behavioral: Negative. Objective: Filed Vitals: 02/22/24 1616 BP: 126/77 Pulse: 83 Resp: 18 Temp: 97.6 ??F (36.4 ??C) TempSrc: Temporal SpO2: 99% Weight: 125.8 kg (277 lb 6.4 oz) Height: 1.6 m (5' 2.99 ) Body mass index is 49.15 kg/m??. General alert, cooperative, no distress HEENT EOM's intact. Oral mucosa normal. Nasal septum is midline. Neck Supple, symmetrical, trachea midline, no adenopathy, no thyromegaly, no JVD. Lungs No acute respiratory distress, no accessory muscle use, symmetric motion of the chest wall, lungs are clear to auscultation bilaterally, no wheezes or rales. Heart Regular rate and regular rhythm. S1, S2 normal. No murmurs. No rubs, clicks, or gallops. Abdomen Soft, non-tender, non-distended. Bowel sounds normal. No masses. No hepatomegaly appreciated. Extremities Extremities atraumatic, no cyanosis, 2+ pedal pulses, no edema Skin Skin color, texture, turgor normal. No rashes or lesions appreciated. Neurologic No focal deficits, motor strength is grossly normal and symmetric Psych Normal mood and affect MSK No synovitis, no bony tenderness, no joint effusions Lymph No cervical or supraclavicular adenopathy Assessment and Plan: Encounter Diagnose(s) ICD-10-CM SNOMED CT(R) 1. Chronic bilateral low back pain with bilateral sciatica M54.42 CHRONIC LOW BACK PAIN RHEUMATOID FACTOR, QUANT M54.41 VENIPUNC ARM DRAW G89.29 Ambulatory Referral to Pain Management HYDROcodone-acetaminophen (NORCO) 7.5-325 MG tablet meloxicam (MOBIC) 15 MG tablet MRI LUMB SPINE WO CON ketorolac (TORADOL) injection 60 mg methylPREDNISolone acetate (DEPO-Medrol) injection 40 mg RHEUMATOID FACTOR, QUANT 2. Idiopathic peripheral neuropathy G60.9 IDIOPATHIC PERIPHERAL NEUROPATHY gabapentin (NEURONTIN) 300 MG capsule MRI LUMB SPINE WO CON 1. Chronic bilateral low back pain with bilateral sciatica -Patient reports positive family history of rheumatoid arthritis in multiple family members. Previous concerns osteoarthritis and has been on pain medications to help with her symptoms. Recent acute exacerbation of his symptoms. Likely suspect rational for pain medications contributing. She already has a referral for physical therapy from a different provider encouraged to complete physical therapy. -Discontinue tramadol -Not tolerating Celebrex; discontinue - RHEUMATOID FACTOR, QUANT; Future - VENIPUNC ARM DRAW - Ambulatory Referral to Pain Management -Changed to HYDROcodone-acetaminophen (NORCO) 7.5-325 MG tablet; Take 1 tablet by mouth 2 (two) times daily as needed for Pain. Indications: Chronic Pain Dispense: 60 tablet; Refill: 0 -Changed to meloxicam (MOBIC) 15 MG tablet; Take 1 tablet (15 mg total) by mouth daily as needed. Has tolerated meloxicam Dispense: 90 tablet; Refill: 1 - MRI LUMB SPINE WO CON; Future - ketorolac (TORADOL) injection 60 mg - methylPREDNISolone acetate (DEPO-Medrol) injection 40 mg - RHEUMATOID FACTOR, QUANT -Follow-up in 6 weeks 2. Idiopathic peripheral neuropathy -Changed to gabapentin (NEURONTIN) 300 MG capsule; Take 1 capsule (300 mg total) by mouth 2 (two) times a day. Dispense: 180 capsule; Refill: 1 - MRI LUMB SPINE WO CON; Future Counseling given: Yes Tobacco comments: Counseled by Dr. Olivares. I personally spent a total of 30 minutes on the day of the encounter. This includes ixgp-dw-pibk and pgh-znlz-ql-face time I provided on the day of the encounter & excludes time spent performing separately reportable services. Side effects and less common but more severe adverse effects of recommended medical therapies were explained to the patient. Requested MyChart or telephone follow up prn if symptoms change, worsen, or persist, or if side effect of treatment is experienced. DRAGON: This dictation was at least in part performed using [employer] speak and there may be some inherent flaws in this laundry agent due to the nature of this program. Tracy Olivares MD Internal Medicine [facility], [facility]. documented in this encounter Plan of Treatment Upcoming Encounters Date Type Department Care Team (Late st Contact Info) Description 10/03/2024 11:00 AM ORCHESTRA TEACHER Office Visit [facility] Medical [facility]ology [facility]ty [facility] - [address] [address] Nathan Baig MD [address] [place] [address] 11/14/2024 10:20 AM ORCHESTRA TEACHER Office Visit [facility] Medical [facility] Multispecialty Care - [place] [address] [address] [place] [address] Tracy Olivares MD [address] [facility] [address] [place] [address] Scheduled Referrals Name Type Priority Associated Diagnoses Orde r Schedule Ambulatory Referral to Pain Management Referral Routine Chronic bilateral low back pain with bilateral sciatica Ordered: 02/22/2024 documented as of this encounter Procedures Procedure Name Priority Date/Time Associated Diagnosis Comments RHEUMATOID FACTOR, QUANT Routine 02/27/2024 10:45 AM CDT Chronic bilateral low back pain with bilateral sciatica VENIPUNC ARM DRAW Routine 02/22/2024 4:4 7 PM CDT Chronic bilateral low back pain with bilateral sciatica documented in this encounter Results * RHEUMATOID FACTOR, QUANT (02/27/2024 10:45 AM CDT) RHEUMATOID FACTOR <10 <14 IU/mL [employer] [facility] 02/27/2024 10:4 5 AM CDT 02/28/2024 3:36 AM CDT Narrative Resulting Agency Comment Performing Organization Information: ?Site ID: [id number] ?Name: Brie Paul ?Address: [address] [address] ?Director: Mahin Mckeon MD Tracy Olivares MD LABORATORY Final Result [facility] [employer] [facility] [address] [place] [address], documented in this encounter Visit Diagnoses Diagnosis Chronic bilateral low back pain with bilateral sciatica- Primary Idiopathic peripheral neuropathy Unspecified hereditary and idiopathic peripheral neuropathy documented in this encounter Administered Medications Inactive Administered Medications - up to 3 most recent administrations Medication Order MAR Action Action Date Dose Rate Site ketorolac (TORADOL) injection 60 mg 60 mg, Intramuscular, Once, 1 dose, On Tue02/22/24 at 1715Indications:Chronic bilateral low back pain with bilateral sciatica Given 02/22/2024 4:52 PM CDT 60 mg Left Dorsal Gluteal methylPREDNISolone acetate (DEPO-Medrol) injection 40 mg 40 mg, Intramuscular, Once, 1 dose, On Tue02/22/24 at 1715, Shake WellIndications:Chronic bilateral low back pain with bilateral sciatica Given 02/22/2024 4:55 PM CDT 40 mg Left Deltoid documented in this encounter Additional Health Concerns Assessment Noted Time PHQ-9 Depression Total Score: 2 09/14/19 24 11:30 AM ORCHESTRA TEACHER documented as of this encounter Care Teams Ore Mixer Relationship Specialty Start Date End Date Tracy Olivares MD [address] [address] PCP - General INTERNAL MEDICINE 01/02/21 Nathan Baig MD [address] [address] Consulting Physician Internal Medicine Pulmonary Disease 09/16/21 documented as of this encounter
--- OUTSIDE RECORDS SUMMARY | 2024-09-07 05:23 | XMS_ITS | Encounter Summary ---
Author Organization [facility] Address [address] [place] [address]. [place], [place] [address] [place] [address] Care Team Providers Care Steamer Blocker Name Role Phone Tracy Olivares MD Primary Care Provider [phone] Nathan Baig MD Unavailable [phone] Reason for Visit * Reason Onset Date Comments Results 02/08/2024 Encounter Details Date Type Department Care Team (Late st Contact Info) Description 02/08/2024 Telephone [facility] Medical Group Multispecialty Care - [place] [address] [place] [address] [address] [place] [address] Tracy Olivares MD 118[address] [facility] 157 [place] [address] Results Social History Tobacco Use [...] Progress Notes * Ilana Ochoa MA - 02/08/2024 9:46 AM CDT X-ray shows arthritis most severe in her lower back which is likely causing her pain but there are no fractures after her fall. documented in this encounter Plan of Treatment Upcoming Encounters Date Type Department Care Team (Late st Contact Info) Description 10/03/2024 11:00 AM SHOE SHINER Office Visit [facility] Medical [facility] Pulmonology Specialty Clinic - [address] [address] Nathan Baig MD 3 [facility] [address] [place] [address] 11/14/2024 10:20 AM SHOE SHINER Office Visit [facility] Multispecialty Care - [place] [address] [address] [place] [address] Tarcy Olivares MD [address] [place] [address] documented as of this encounter Visit Diagnoses Not on filedocumented in this encounter Additional Health Concerns Assessment Noted Time PHQ-9 Depression Total Score: 2 09/14/19 24 11:30 AM SHOE SHINER documented as of this encounter Care Teams Steamer Blocker Relationship Specialty Start Date End Date Tracy Olivares MD [address] [place] [address] PCP - General INTERNAL MEDICINE 01/02/21 Nathan Baig MD 3 [facility] [place] [address] [place] [address] Consulting Physician Internal Medicine Pulmonary Disease 09/16/21 documented as of this encounter
--- OUTSIDE RECORDS SUMMARY | 2024-09-07 05:23 | XMS_ITS | Encounter Summary ---
Author Organization [facility] Address [address] [place] [address]. [place] [id number] [place], [place] [id number] Care Team Providers Care Career Manager Name Role Phone Tracy Olivares MD Primary Care Provider [phone] Nathan Baig MD Unavailable [phone] Reason for Visit * Reason Comments Pain Hip/ Limb * Physical Medicine (Routine) - Pending Review Specialty Diagnoses / Procedures Referred By Heidi iverson Referred To Contact PHYSICAL THERAPY / [facility] Physical Therapy Diagnoses Hip pain, bilateral Bilateral shoulder pain Procedures OFFICE/OUTPATIENT NEW LOW MDM 30-44 MINUTES OFFICE/OUTPT VISIT,NEW,LEVL IV OFFICE/OUTPT VISIT,NEW,LEVL V OFFICE/OUTPT VISIT,EST,LEVL III OFFICE/OUTPT VISIT,EST,LEVL IV OFFICE/OUTPT VISIT,EST,LEVL V Tracy Olivares MD [address] [address] Phone: tel: fax: [facility] [address] [place] [address] Phone: tel: fax: Referral ID Status Reason Start Date Expiration Date Visits Requested Visits Authorized [id number] Pending Review Physical Therapy 12/16/2023 01/14/2025 12 12 Encounter Details Date Type Department Care Team (Late st Contact Info) Description 02/13/2024 10:15 AM CDT Office Visit [facility] Physical Therapy [address] [facility] [address] [place] [address] Tracy Olivares MD 118[address] [facility] [address] [place] [address] Ashley Wright, PT [address] [place] [address] Pain Hip/ Limb Social History Tobacco Use [...] this encounter Patient Instructions * Patient Instructions* Ashley Wright, PT - 02/13/2024 10:15 AM CDT Access Code: [email or web address] URL: [email or web address] Date: 02/13/2024 Prepared by: Ashley Wright Exercises - Half Deadlift with Kettlebell - 2 sets - 5 reps - Sit to Stand - 3 reps documented in this encounter Progress Notes * Ashley Wright PT - 02/13/2024 10:15 AM CDT Physical Therapy Visit Note: Patient Name: Keegan Amaya Diagnosis: Chronic shoulder pain (primary encounter diagnosis) Hip pain Oa (osteoarthritis) of shoulder Shoulder tendonitis Start Time: 1017 End Time: 1105 Treatment Day: 3 Total Approved Visits: 12 per insurance auth [...] and sister Hand Dominance: Right Current HEP: [id number] SUBJECTIVE Pt has had a lot of family stress lately and her back pain continues. She has experienced a lot of abdominal and pelvic pain. If she eats too much she feels like her intestines are heavy and it makesher back hurt. Compliance to Home Program: some Functional changes since last visit: minimal Reported Falls since last visit: denies Medications changes since last visit: taking celebrex but now having GI issues, tramadol 50mg but doesn't seem to help OBJECTIVE Treatment provided today: Neuromuscular Re-education - 29928 Number of Minutes - 60945: held today Intervention: Supine and sitting diaphragmatic breathing. Attempted to use 5lb ankle weight on abdomen for tactile cue, although this was not effective Done to facilitate diaphragmatic movement of exercise Therapeutic Activities - 19349 Number of Minutes - 21711: 30 Intervention: Bed mobility training from supine <--> sit and sit <--> stand with use ofexhale during exertion to improve ease of bed mobility at home and decrease muscle tone/guarding. Intervention: Practice making bed with breathing Intervention: Sit to stand practice with breathing Self Care - 78177 Number of Minutes - 59266: 18 Education consisting of use of diaphragmatic breathing for stress management, including box breathing with visual aid. Also use of breathing for implementation of functional tasks related to dressingand lifeguard. See assessment for further information ASSESSMENT Heavy emphasis on education today, once again related to diaphragm and its relationship to pelvic floor function, digestive function, and autonomic nervous activity. Shifted focus from discussion onto implementation of breathing into functional tasks including making bed and getting up from low surface. Pt verbalized good understanding of education, both verbal and written format. Pt continues todemonstrate impaired shoulder A/PROM, decreased shoulder strength, decreased hip AROM, and decreased hip strength, which limits ease of bed mobility, standing or walking for long periods, and using her arms for normal ADLs. Continue PT per plan. PLAN Patient is scheduled to return 02/27/2024. Next Visit Plan: Continue shoulder isometrics and scapular activation, hip mobility, ongoing pelvicfloor education with heavy focus on diaphragm function. Add bike next visit as able Total Time in Minutes: 48 Timed Code Treatment Minutes: 48 documented in this encounter Plan of Treatment Upcoming Encounters Date Type Department Care Team (Late st Contact Info) Description 10/03/2024 11:00 AM SCREEN PRINTING MACHINE OPERATOR HELPER Office Visit [facility] Medical Group Pulmonology Specialty Clinic - [address] [address] Nathan Biag MD [address] [address] 11/14/2024 10:20 AM SCREEN PRINTING MACHINE OPERATOR HELPER Office Visit [facility] Multispecialty Care - [place] [address] [address] [place] [address] Tracy Olivares MD [address] [place] [address] documented as of this encounter Visit Diagnoses Diagnosis Chronic shoulder pain- Primary Pain in joint, shoulder region Hip pain Pain in joint, pelvic region and thigh OA (osteoarthritis) of shoulder Shoulder tendonitis documented in this encounter Additional Health Concerns Assessment Noted Time PHQ-9 Depression Total Score: 2 09/14/19 24 11:30 AM SCREEN PRINTING MACHINE OPERATOR HELPER documented as of this encounter Care Teams Career Manager Relationship Specialty Start Date End Date Tarcy Olivares MD [address] [place] [address] PCP - General INTERNAL MEDICINE 01/02/21 Nathan Biag MD 3 [facility] [address] [place] [address] Consulting Physician Internal Medicine Pulmonary Disease 09/16/21 documented as of this encounter
--- OUTSIDE RECORDS SUMMARY | 2024-09-07 05:23 | XMS_ITS | Encounter Summary ---
Author Organization [facility] Address [address] [place] [address]. [place], [place] [id number] [place] [address] Care Team Providers Care Waybill Clerk Name Role Phone Tracy Olivares MD Primary Care Provider [phone] Nathan Baig MD Unavailable [phone] Reason for Visit * Reason Comments Image (SCAN) Encounter Details Date Type Department Care Team (Latest Contact Info) Description 12/10/2023 Scan HEALTH INFO [facility] Scanned, Doc Med Group Image (SCAN) Social History Tobacco Use Types [...] st Contact Info) Description 10/03/2024 11:00 AM AERIAL LINEMAN [facility] - [address] [place] [address] Nathan Baig MD [address] [place] [address] 11/14/2024 10:20 AM AERIAL LINEMAN [facility] Multispecialty Care - [place] [address] [address] [place] [address] [place] [address] [place] [address] documented as of this encounter Procedures Procedure Name Priority Date/Time Associated Diagnosis Comments IMAGE GENERIC 12/10/2023 documented in this encounter Results * IMAGE GENERIC (12/10/2023) Anatomical Region Laterality Modality Other 12/10/2023 us Doc Med Group Scanned SCANNING Final Resu lt documented in this encounter Visit Diagnoses Not on filedocumented in this encounter Additional Health Concerns Assessment Noted Time PHQ-9 Depression Total Score: 2 09/14/19 24 11:30 AM AERIAL LINEMAN documented as of this encounter Care Teams Waybill Clerk Relationship Specialty Start Date End Date Tracy Olivares MD [address] [place] [address] PCP - General INTERNAL MEDICINE 01/02/21 Nathan Baig MD [address] [address] Consulting Physician Internal Medicine Pulmonary Disease 09/16/21 documented as of this encounter
--- OUTSIDE RECORDS SUMMARY | 2024-09-07 05:23 | XMS_ITS | Encounter Summary ---
Author Organization [facility] - [facility] Address [address] [place] [address]. [place], [place] [address] [place] [address] Care Team Providers Care Manager Medicare Name Role Phone Tracy Olivares MD Primary Care Provider [phone] Nathan Baig MD Unavailable [phone] Reason for Visit * Reason Onset Date Comments Results 02/03/2024 Encounter Details Date Type Department Care Team (Late st Contact Info) Description 02/03/2024 Telephone [facility] Medical Group Multispecialty Care [place] [address] [place] [address] [address] [place] [address] [place] [address] [place] [address] [address] [place] [address] Results Social History Tobacco Use [...] Progress Notes * Najma Moreland MA - 02/07/2024 8:16 AM CDT ----- Message from Tracy Olivares MD sent at 02/03/2024 4:58 PM CDT ----- Her xray did show some degenerative changes and arthritis. This is not new. For now continue with physical therapy and use pain medications as directed. Tracy Olivares MD Internal Medicine [facility]. ----- Message ----- From: Lester Huffman Sent: 02/03/2024 2:50 PM CDT To: Tracy Olivares MD * Lester Huffman - 02/03/2024 2:50 PM CDT Pt would like Dr. Olivares to call with xray results. documented in this encounter Plan of Treatment Upcoming Encounters Date Type Department Care Team (Late st Contact Info) Description 10/03/2024 11:00 AM GENERAL DISTILLERY WORKER Office Visit [facility] Pul[facility]ology Specialty Clinic - [address] [address] Nathan Baig MD [address] [place] [address] 11/14/2024 10:20 AM GENERAL DISTILLERY WORKER Office Visit [facility] Multispecialty Care - [place] [address] [address] [place] [address] Tracy Olivares MD [address] [place] [address] documented as of this encounter Visit Diagnoses Not on filedocumented in this encounter Additional Health Concerns Assessment Noted Time PHQ-9 Depression Total Score: 2 09/14/19 11:30 AM GENERAL DISTILLERY WORKER documented as of this encounter Care Teams Manager Medicare Relationship Specialty Start Date End Date Tracy Olivares MD [address] [place] [address] PCP - General INTERNAL MEDICINE 01/02/21 Nathan Baig MD [address] [address] Consulting Physician Internal Medicine Pulmonary Disease 09/16/21 documented as of this encounter
--- OUTSIDE RECORDS SUMMARY | 2024-09-07 05:23 | XMS_ITS | Encounter Summary ---
Author Organization [facility] Address [address] [place] [address]. [place], [place] [address] [place] [address] Care Team Providers Care Car Salter Name Role Phone Tracy Olivares MD Primary Care Provider [phone] Nathan Baig MD Unavailable [phone] Encounter Details Date Type Department Care Team (Latest Contact Info) Description 02/13/2024 Travel Social History Tobacco Use Types Packs/Day [...] st Contact Info) Description 10/03/2024 11:00 AM MILL TENDER Office Visit [facility] Medical Group Pulmonology Specialty Clinic - [place] [address] [address] [facility] [address] [place] [address] Nathan Baig MD [address] [place] [address] 11/14/2024 10:20 AM MILL TENDER Office Visit [facility] Medical Group Multispecialty Care - [place] [address] [place] [address] Tracy Olivares MD [address] [address] documented as of this encounter Visit Diagnoses Not on filedocumented in this encounter Additional Health Concerns Assessment Noted Time PHQ-9 Depression Total Score: 2 09/14/19 24 11:30 AM MILL TENDER documented as of this encounter Care Teams Car Salter Relationship Specialty Start Date End Date Tracy Olivares MD [facility] [address] PCP - General INTERNAL MEDICINE 01/02/21 Nathan Baig MD [address] [address] Consulting Physician Internal Medicine Pulmonary Disease 09/16/21 documented as of this encounter
--- OUTSIDE RECORDS SUMMARY | 2024-09-07 05:23 | XMS_ITS | Encounter Summary ---
Author Organization [facility] Address [address] [place] [address]. [place], [place] [address] [place] [address] Care Team Providers Care Tunnel Worker Name Role Phone Tracy Oilvares MD Primary Care Provider [phone] Nathan Baig MD Unavailable [phone] Reason for Referral * Consultation (Routine) - Closed Specialty Diagnoses / Procedures Referred By Contact Referred To Contact NUTRITION / ENDOCRINOLOGY Diagnoses Prediabetes Class 3 severe obesity due to excess calories without serious comorbidity with body mass index (BMI) of 50.0 to 59.9 in adult ([facility]) Procedures OFFICE/OUTPT VISIT,NEW,LEVL III OFFICE/OUTPT VISIT,NEW,LEVL IV OFFICE/OUTPT VISIT,NEW,LEVL V OFFICE/OUTPT VISIT,EST,LEVL III OFFICE/OUTPT VISIT,EST,LEVL IV OFFICE/OUTPT VISIT,EST,LEVL V Tracy Olivares MD [address] [facility] [address] [place] [address] Phone: tel:[phone] fax:[phone] [facility] Medical Group Diabetes and Endocrinology - [place] [address] [place] [address] Phone: tel: fax: Referral ID Status Reason Start Date Expiration Date Visits Re quested Visits Authorized [id number] Closed 02/25/2023 03/27/2024 99 99 Reason for Visit * Reason Onset Date Comments Referral 02/25/2023 Encounter Details Date Type Department Care Team (Late st Contact Info) Description 02/25/2023 Telephone [facility] Medical [facility] Multispecialty Care - [place] [address] [place] [address] [address] [place] [address] Tracy Olivares MD [address] [facility] [address] [place], [place] [id number] Referral Social History Tobacco Use Types Packs/Day [...] Progress Notes * Tracy Olivares MD - 02/25/2023 6:55 PM CDT Referral to dietitian placed. Please notify patient. * Nadia Nayak MA - 02/25/2023 10:20 AM CDT Pt is requesting a referral for a life skills instructor , needs to take some weight off, pt states she does noteat that much and is still gaining weight documented in this encounter Plan of Treatment Upcoming Encounters Date Type Department Care Team (Late st Contact Info) Description 10/03/2024 11:00 AM PORTER MARINA Office Visit [facility] Pulmonology Specialty Clinic - [address] [address] Nathan Baig MD 3 [facility] [address] [place] [address] 11/14/2024 10:20 AM PORTER MARINA Office Visit [facility] Multispecialty Care - [place] [address] [address] [place] [address] Tracy Olivares MD [address] [address] Scheduled Referrals Name Type Priority Associated Diagnoses Orde r Schedule Ambulatory Referral to Dietitian/Nutrition Referral Routine Prediabetes Class 3 severe obesity due to excess calories without serious comorbidity with body mass index (BMI) of 50.0 to 59.9 in adult ([facility]) Ordered: 02/25/2023 documented as of this encounter Visit Diagnoses Diagnosis Prediabetes- Primary Other abnormal glucose Class 3 severe obesity due to excess calories without serious comorbidity with body mass index (BMI) of 50.0 to 59.9 in adult ([facility]) documented in this encounter Additional Health Concerns Assessment Noted Time PHQ-9 Depression Total Score: 11 01/07/ 023 1:30 PM CDT documented as of this encounter Care Teams Tunnel Worker Relationship Specialty Start Date End Date Tracy Olivares MD [address] [place] [address] PCP - General INTERNAL MEDICINE 01/02/21 Nathan Baig MD 3 [facility] [address] [place] [address] Consulting Physician Internal Medicine Pulmonary Disease 09/16/21 documented as of this encounter
--- OUTSIDE RECORDS SUMMARY | 2024-09-07 05:23 | XMS_ITS | Encounter Summary ---
Author Organization [facility] Address [address] [place] [address]. [place], [place] [address] [place] [address] Care Team Providers Care Powder Monkey Name Role Phone Tracy Olivares MD Primary Care Provider [phone] Nathan Baig MD Unavailable [phone] Marisel Mancini RN Unavailable [phone] Encounter Details Date Type Department Care Team (Late Contact Info) Description 01/11/2024 [employer] Message Enc [facility] Medical [facility] Multispecialty Care - [place] [address] [facility] [address] [place] [address] [facility] Provider Weight Watchers Social History Tobacco Use Types Packs/Day Years [...] (Late Contact Info) Description 10/03/2024 11:00 AM HEAD MEN'S GOLF COACH Office Visit [facility] Medical [facility] Pulmonology Specialty Clinic - [place] [address] [address] [place] [address] Nathan Baig MD 3 [facility] [address] [place] [address] 11/14/2024 10:20 AM HEAD MEN'S GOLF COACH Office Visit [facility] Medical Group Multispecialty Care - [place] [address] [address] [place] [address] Tracy Olivares MD [address] [address] documented as of this encounter Visit Diagnoses Not on filedocumented in this encounter Additional Health Concerns Assessment Noted Time PHQ-9 Depression Total Score: 2 09/14/19 24 11:30 AM HEAD MEN'S GOLF COACH documented as of this encounter Care Teams Powder Monkey Relationship Specialty Start Date End Date Tracy Olivares MD [address] [place] [address] PCP - General INTERNAL MEDICINE 01/02/21 Nathan Baig MD 3 [facility] [address] [place] [address] Consulting Physician Internal Medicine Pulmonary Disease 09/16/21 Marisel Mancini, RN [address] [place] [address] Developer [employer] (Ambulatory) REGISTERED NURSE 06/28/24 08/07/24 documented as of this encounter
--- OUTSIDE RECORDS SUMMARY | 2024-09-07 05:23 | XMS_ITS | Encounter Summary ---
Author Organization [facility] Address [address] [place] [address]. [place], [place] [address] [place] [address] Care Team Providers Care Almond Paste Mixer Name Role Phone Tracy Olivares MD Primary Care Provider [phone] Nathan Baig MD Unavailable [phone] Encounter Details Date Type Department Care Team (Latest Contact Info) Description 02/01/2024 Travel Social History Tobacco Use Types Packs/Day [...] st Contact Info) Description 10/03/2024 11:00 AM DRYWALL CONTRACTOR Office Visit [facility] Medical Group Pulmonology Specialty Clinic - [place] [address] [address] [facility] [address] [place] [address] Nathan Baig MD [address] [place] [address] 11/14/2024 10:20 AM DRYWALL CONTRACTOR Office Visit [facility] Medical Group Multispecialty Care - [place] [address] [facility] [address] [place] [address] Tracy Olivares MD [address] [address] documented as of this encounter Visit Diagnoses Not on filedocumented in this encounter Additional Health Concerns Assessment Noted Time PHQ-9 Depression Total Score: 2 09/14/19 24 11:30 AM DRYWALL CONTRACTOR documented as of this encounter Care Teams Almond Paste Mixer Relationship Specialty Start Date End Date Tracy Olivares MD [facility] [address] PCP - General INTERNAL MEDICINE 01/02/21 Nathan Baig MD [address] [address] Consulting Physician Internal Medicine Pulmonary Disease 09/16/21 documented as of this encounter
--- OUTSIDE RECORDS SUMMARY | 2024-09-07 05:23 | XMS_ITS | Encounter Summary ---
Author Organization [facility] Address [address] [place] [address]. [place], [place] [address] [place] [address] Care Team Providers Care Inner Diameter Grinder Tool Name Role Phone Tracy Olivares MD Primary Care Provider [phone] Nathan Baig MD Unavailable [phone] Encounter Details Date Type Department Care Team (Latest Contact Info) Description 02/22/2024 Travel Social History Tobacco Use Types Packs/Day [...] st Contact Info) Description 10/03/2024 11:00 AM TOOL SHAPER SET UP OPERATOR Office Visit [facility] Medical Group Pulmonology Specialty Clinic - [place] [address] [address] [facility] [address] [place] [address] Nathan Baig MD [address] [place] [address] 11/14/2024 10:20 AM TOOL SHAPER SET UP OPERATOR Office Visit [facility] Medical Group Multispecialty Care - [place] [address] [address] [facility] [address] [place] [address] Tracy Olivares MD 1188 [facility] 157 [place] [address] documented as of this encounter Visit Diagnoses Not on filedocumented in this encounter Additional Health Concerns Assessment Noted Time PHQ-9 Depression Total Score: 2 09/14/19 24 11:30 AM TOOL SHAPER SET UP OPERATOR documented as of this encounter Care Teams Inner Diameter Grinder Tool Relationship Specialty Start Date End Date Tracy Olivares MD 1188 [facility] 157 [place] [address] PCP - General INTERNAL MEDICINE 01/02/21 Nathan Baig MD [address] [address] Consulting Physician Internal Medicine Pulmonary Disease 09/16/21 documented as of this encounter
--- OUTSIDE RECORDS SUMMARY | 2024-09-07 05:23 | XMS_ITS | Encounter Summary ---
Author Organization [facility] - [facility] Address [address] [place] [address]. [place] [id number] [place] [address] Care Team Providers Care Senior Accountant Analyst Name Role Phone Tracy Olivares MD Primary Care Provider Nathan Baig MD Unavailable [phone] Reason for Visit * Reason Comments Follow Up Jess Camejo Li pitor Depression Encounter Details Date Type Department Care Team (Latest Contact Info) Description 07/05/2023 2:40 PM CDT Office Visit [facility] Medical Group Multispecialty Care - [place] [address] [address] [place] [address] [place] [address] [place] [address] [place], [place] [id number] Follow Up (Jess Camejo, Lipitor); Depression Social History Tobacco Use Types Packs/Day Years [...] Sign Reading Time Taken Comments Blood Pressure 120/73 07/05/2023 3:06 PM CDT Pulse 73 07/05/2023 3:06 PM CDT Temperature 37.2 ??C (98.9 ??F) 07/05/2023 3:06 PM CD T Respiratory Rate 16 07/05/2023 3:06 PM CDT Oxygen Saturation 100% 07/05/2023 3:06 PM CDT Inhaled Oxygen Concentration - - Weight 130.4 kg (287 lb 6.4 oz) 07/05/2023 3:06 PM CDT Height - - Body Mass Index 50.11 01/07/2023 11:04 AM CDT documented in this encounter Patient Instructions * Patient Instructions* Tracy Olivares MD - 07/05/2023 2:40 PM CDT Follow up in first week of September 2023 for your depression medication. * Attachments The following attachments cannot be sent through Care Everywhere. * Depression Discharge Instructions, Adult (Italian) documented in this encounter Progress Notes * Tracy Olivares MD - 07/05/2023 2:40 PM CDTSummary: Follow up notes Images from the original note were not included. Internal Medicine Outpatient Progress Note CC: Follow Up (Lexapro, Januvia, Lipitor) and Depression HPI: Keegan Amaya is a 67-year-old female who presents for follow up depression and wanting refills onJanuvia and Lipitor. Recently, patient was started on Lexapro to help with depression. Tolerated medication well. Has run out of medication. She was seen during downtime and was doing well on dosage of medication. Since running out, patient has noticed her symptoms are not optimally controlled. Has not had any suicidalthoughts or intentions to harm. She lives by herself. She comes in to discuss getting medications refilled and ordered at this time. Currently not following with psychiatry or therapy. She did bring to my attention that she did not notice any significant change in her cravings whilston topiramate and does not want any refills on this medication. She had initially messaged about this medication but it looks like patient was confused between topiramate and Lexapro. Refills on Januvia and Lipitor sent. Problem List Patient Active Problem List Diagnosis Current moderate episode of major depressive disorder (CMS/HCC) Essential hypertension Gastroesophageal reflux disease Hearing loss Impaired glucose tolerance in obese Shoulder pain Chronic low back pain with bilateral sciatica Obesity Lumbar herniated disc FAISAL on CPAP Glaucoma Cataract Anxiety Knee pain Pulmonary emphysema (HHS/HCC) (CMS/HCC) Mixed hyperglyceridemia Prediabetes Other specified anemias RLS (restless legs syndrome) Mixed hyperlipidemia Past Medical History: Diagnosis Date Anxiety Cataract Chronic low back pain COPD (chronic obstructive pulmonary disease) (HHS/HCC) (CMS/HCC) Depression Diabetes mellitus (HHS/HCC) (CMS/HCC) GERD (gastroesophageal reflux disease) Glaucoma Hearing loss [...] Smoking status: Former Packs/day: 1.50 Years: 30.00 Pack years: 45.00 Types: Cigarettes Quit date: 09/12/1984 Years since quittin.8 Smokeless tobacco: Never Tobacco comments: counseled by Dr Olivares Vaping Use Vaping Use: Never used Substance Use Topics Alcohol use: Not Currently Drug use: Not Currently Medications: Outpatient Medications Marked as Taking for the 07/05/23 encounter (Office Visit) with Tracy Olivares MD Medication Sig Dispense Refill atorvastatin (LIPITOR) 20 MG tablet Take 1 tablet (20 mg total) by mouth nightly at bedtime. at bedtime 90 tablet 1 escitalopram (LEXAPRO) 10 MG tablet Take 1 tablet (10 mg total) by mouth daily. 90 tablet 1 esomeprazole (NEXIUM) 40 MG capsule TAKE 1 CAPSULE BY MOUTH EVERY DAY FOR 1 MONTH JANUVIA 100 MG tablet meloxicam (MOBIC) 15 MG tablet Take 1 tablet (15 mg total) by mouth daily. SITagliptin (JANUVIA) 50 MG tablet Take 1 tablet (50 mg total) by mouth daily. 90 tablet 1 Allergies: Review of patient's allergies indicates: Allergen Reactions Propoxyphene Unknown Review of Systems Constitutional: Negative for chills, diaphoresis, fever, malaise/fatigue and weight loss. HENT: Negative. Eyes: Negative. Respiratory: Negative. Cardiovascular: Negative for chest pain, palpitations, orthopnea, claudication, leg swelling and PND. Gastrointestinal: Negative. Genitourinary: Negative. Musculoskeletal: Negative. Neurological: Negative. Psychiatric/Behavioral: Positive for depression. Negative for hallucinations, memory loss, substance abuse and suicidal ideas. The patient is not nervous/anxious and does not have insomnia. Objective: Filed Vitals: 07/05/23 1506 BP: 120/73 Pulse: 73 Resp: 16 Temp: 98.9 ??F (37.2 ??C) TempSrc: Temporal SpO2: 100% Weight: 130.4 kg (287 lb 6.4 oz) Body mass index is 50.11 kg/m??. General alert, cooperative, no distress HEENT [...] strength is grossly normal and symmetric Psych Appears slightly worried MSK No synovitis, no bony tenderness, no joint effusions Lymph No cervical or supraclavicular adenopathy Assessment and Plan: Encounter Diagnose(s) ICD-10-CM SNOMED CT(R) 1. Moderate episode of recurrent major depressive disorder (CMS/HCC) F33.1 RECURRENT MAJOR DEPRESSIVE EPISODES, MODERATE escitalopram (LEXAPRO) 10 MG tablet 2. Prediabetes R73.03 PREDIABETES SITagliptin (JANUVIA) 50 MG tablet 3. Mixed hyperlipidemia E78.2 MIXED HYPERLIPIDEMIA atorvastatin (LIPITOR) 20 MG tablet 1. Moderate episode of recurrent major depressive disorder (CMS/HCC) -Patient's symptoms currently not optimally controlled due to running out of her medications. Refills were sent during downtime however patient tells me she did not get the appropriate 1 day of tablets. Was doing well on previous dose of Lexapro. No side effects. No red flag signs. - I personally reviewed PHQ-9 and SAMIR-7 scores with patient today and explained the meaning of patient's scores to patient. Patient is currently uncontrolled. I counseled for about 3 minutes on strategies including stress management, sleep hygiene, balanced diet, regular physical activity includingaerobic exercise, weight reduction, activity pacing, maintenance of overall health lifestyle, medication compliance and the need for close follow up. Comorbidities including depression, anxiety currently being managed. Active nonpharmacological therapies including supervised and graded exercise program as well as cognitive behavioral interventions discussed as well. Based on patient scores today,I have discussed with patient the plan as outlined below. -Restart escitalopram (LEXAPRO) 10 MG tablet; Take 1 tablet (10 mg total) by mouth daily. Dispense:90 tablet; Refill: 1 2. Prediabetes - SITagliptin (JANUVIA) 50 MG tablet; Take 1 tablet (50 mg total) by mouth daily. Dispense: 90 tablet; Refill: 1 3. Mixed hyperlipidemia - atorvastatin (LIPITOR) 20 MG tablet; Take 1 tablet (20 mg total) by mouth nightly at bedtime. at bedtime Dispense: 90 tablet; Refill: 1 Counseling given: Yes Tobacco comments: counseled by Dr Olivares I personally spent a total of 30 minutes on the day of the encounter. This includes nqef-uj-xqyf and pob-dqrt-tr-face time I provided on the day of the encounter & excludes time spent performing separately reportable services. Side effects and less common but more severe adverse effects of recommended medical therapies were explained to the patient. Follow up office visit in 2 months. Requested MyChart or telephone follow up prn if symptoms change, worsen, or persist, or if side effect of treatment is experienced. JAMELON: This dictation was at least in part performed using [employer] and there may be some inherent flaws in this medical staff credentialing coordinator due to the nature of this program. Tracy Olivares MD Internal Medicine [facility], [facility]. documented in this encounter Plan of Treatment Upcoming Encounters Date Type Department Care Team (Late st Contact Info) Description 10/03/2024 11:00 AM CASHIER CHECKER Office Visit [facility] Pulmonology Specialty Clinic - [address] [address] Nathan Baig MD 3 [facility] [address] [place] [address] 11/14/2024 10:20 AM CASHIER CHECKER Office Visit [facility] Multispecialty Care - [place] [address] [address] [place] [address] Tracy Olivares MD [address] [address] documented as of this encounter Visit Diagnoses Diagnosis Moderate episode of recurrent major depressive disorder ([facility])- Primary Prediabetes Other abnormal glucose Mixed hyperlipidemia documented in this encounter Additional Health Concerns Assessment Noted Time PHQ-9 Depression Total Score: 16 023 3:44 PM CDT documented as of this encounter Care Teams Senior Accountant Analyst Relationship Specialty Start Date End Date Tracy Olivares MD [address] [place] [address] PCP - General INTERNAL MEDICINE 01/02/21 Nathan Baig MD 3 [facility] [place] [address] [place] [address] Consulting Physician Internal Medicine Pulmonary Disease 09/16/21 documented as of this encounter
--- OUTSIDE RECORDS SUMMARY | 2024-09-07 05:23 | XMS_ITS | Encounter Summary ---
Author Organization [facility] Address [address] [place] [address]. [place], [place] [address] [place] [address] Care Team Providers Care Slicer Machine Operator Name Role Phone Tracy Olivares MD Primary Care Provider [phone] Nathan Baig MD Unavailable [phone] Reason for Visit * Reason Onset Date Comments Reschedule 04/26/2023 Encounter Details Date Type Department Care Team (Late st Contact Info) Description 04/26/2023 MyChart Message Enc [facility] Multispecialty Care - [facility] [address] [facility] [place] [address] Nathan Baig MD [address] [facility] [address] [place], [place] [id number] Social History Tobacco Use Types Packs/Day Years [...] as of this encounter Progress Notes * Alondra Tanner - 04/26/2023 1:35 PM CDT Good afternoon, We tried to reach you to discuss the need to reschedule your appointment with Dr Baig. He will be out of the office on the date you were scheduled. I have rescheduled your appoinment for the soonest he currently has available. If this date and time do not work with your schedule please contact the office Thank you for your understanding documented in this encounter Plan of Treatment Upcoming Encounters Date Type Department Care Team (Late st Contact Info) Description 10/03/2024 11:00 AM MORTGAGE OR LOAN UNDERWRITER Office Visit [facility] Medical [facility] Pulmonology Specialty Clinic - [address] [address] Nathan Baig MD [address] [address] 11/14/2024 10:20 AM MORTGAGE OR LOAN UNDERWRITER Office Visit [facility] Multispecialty Care - [place] [address] [address] [place] [address] Tracy Olivares MD [address] [place] [address] documented as of this encounter Visit Diagnoses Not on filedocumented in this encounter Additional Health Concerns Assessment Noted Time PHQ-9 Depression Total Score: 11 01/07/ 023 1:30 PM CDT documented as of this encounter Care Teams Slicer Machine Operator Relationship Specialty Start Date End Date Tracy Olivares MD [address] [place] [address] PCP - General INTERNAL MEDICINE 01/02/21 Nathan Baig MD 3 [facility] [address] [place] [address] Consulting Physician Internal Medicine Pulmonary Disease 09/16/21 documented as of this encounter
--- OUTSIDE RECORDS SUMMARY | 2024-09-07 05:23 | XMS_ITS | Encounter Summary ---
Author Organization [facility] Address [address] [place] [address]. [place], [place] [address] [place] [address] Care Team Providers Care Television Schedule Coordinator Name Role Phone Tracy Olivares MD Primary Care Provider [phone] Nathan Baig MD Unavailable [phone] Encounter Details Date Type Department Care Team (Latest Contact Info) Description 12/23/2023 Travel Social History Tobacco Use Types Packs/Day [...] st Contact Info) Description 10/03/2024 11:00 AM WORM SORTER Office Visit [facility] Medical Group Pulmonology Specialty Clinic - [place] [address] [address] [facility] [address] [place] [address] Nathan Baig MD [address] [place] [address] 11/14/2024 10:20 AM WORM SORTER Office Visit [facility] Medical Group Multispecialty Care - [place] [address] [place] [address] Tracy Olivares MD [address] [address] documented as of this encounter Visit Diagnoses Not on filedocumented in this encounter Additional Health Concerns Assessment Noted Time PHQ-9 Depression Total Score: 2 09/14/19 24 11:30 AM WORM SORTER documented as of this encounter Care Teams Television Schedule Coordinator Relationship Specialty Start Date End Date Tracy Olivares MD [facility] [address] [address] PCP - General INTERNAL MEDICINE 01/02/21 Nathan Baig MD [address] [address] Consulting Physician Internal Medicine Pulmonary Disease 09/16/21 documented as of this encounter
--- OUTSIDE RECORDS SUMMARY | 2024-09-07 05:23 | XMS_ITS | Encounter Summary ---
Author Organization [facility] Address [address] [place] [address]. [place] [address] Care Team Providers Care Chief Human Resources Officer Name Role Phone Tracy Olivares MD Primary Care Provider [phone] Nathan Baig MD Unavailable [phone] Reason for Referral * Consultation/Treatment (Routine) - Pending Review Specialty Diagnoses / Procedures Referred By Contoziel t Referred To Contact RHEUMATOLOGY Diagnoses Screening for rheumatoid arthritis Procedures OFFICE/OUTPATIENT [facility] MDM 30-44 MINUTES OFFICE/OUTPT VISIT,NEW,LEVL IV OFFICE/OUTPT VISIT,NEW,LEVL V OFFICE/OUTPT VISIT,EST,LEVL III OFFICE/OUTPT VISIT,EST,LEVL IV OFFICE/OUTPT VISIT,EST,LEVL V Tracy Olivares MD [address] [address] Phone: tel: [place]: [place] [address] [place] [address] Phone: tel: fax: Referral ID Status Reason Start Date Expiration Date Visits Requested Visits Authorized [id number] Pending Review Specialty Services 12/22/2023 12/21/2024 12 12 * Physical Medicine (Routine) - Pending Review Specialty Diagnoses / Procedures Referred By Contac t Referred To Contact PHYSICAL THERAPY / [facility] Physical Therapy Diagnoses Hip pain, bilateral Bilateral shoulder pain Procedures OFFICE/OUTPATIENT NEW LOW MDM 30-44 MINUTES OFFICE/OUTPT VISIT,NEW,LEVL IV OFFICE/OUTPT VISIT,NEW,LEVL V OFFICE/OUTPT VISIT,EST,LEVL III OFFICE/OUTPT VISIT,EST,LEVL IV OFFICE/OUTPT VISIT,EST,LEVL V Tracy Olivares MD [address] [address] Phone: tel: fax: [facility] [address] [place] [address] Phone: tel: fax: Referral ID Status Reason Start Date Expiration Date Visits Requested Visits Authorized [id number] Pending Review Physical Therapy 12/16/2023 01/14/2025 12 12 Reason for Visit * Reason Comments Weight Problem Hip Pain States nerve pain Encounter Details Date Type Department Care Team (Latest Contact Info) Description 12/16/2023 11:00 AM CDT Office Visit [facility] Multispecialty Care - [place] [address] [address] [place] [address] Tracy Olivares MD [address] [address] Weight Problem; Hip Pain (States nerve pain) Social History Tobacco Use Types Packs/Day Years [...] Sign Reading Time Taken Comments Blood Pressure 151/87 12/16/2023 12:10 PM CDT Pulse 78 12/16/2023 11:20 AM CDT Temperature 36.7 ??C (98 ??F) 12/16/2023 11: 20 AM CDT Respiratory Rate 18 12/16/2023 11:2 0 AM CDT Oxygen Saturation 100% 12/16/2023 11: 20 AM CDT Inhaled Oxygen Concentration - - Weight 126.6 kg (279 lb 3.2 oz) 024 11:20 AM CDT Height 160 cm (5' 3 ) 12/16/2023 11:20 AM CDT Body Mass Index 49.46 12/16/2023 11:20 AM CDT documented in this encounter Patient Instructions * Patient Instructions* Sadi Goodwin NP Student - 12/16/2023 11:00 AM CDT Do not take gabapentin with flexeril together at night. Take gabapentin 200mg in the morning and 200mg in the afternoon. Skip gabapentin at night if you take cyclobenzaprine Take prednisone two tablets daily in the morning until you finish the bottle * Attachments The following attachments cannot be sent through Care Everywhere. * Chronic pain (Belarusian) documented in this encounter Progress Notes * Sadi Goodwin NP Student - 12/16/2023 11:00 AM CDTSummary: f/u regarding weight loss options Images from the original note were not included. . Internal Medicine Outpatient Progress Note CC: Weight Problem and Hip Pain (States nerve pain) HPI: Keegan Amaya is a 68-year-old female who presents for Patient presents to the clinic with complaints of bilateral shoulder joint pain with the right worse then the left and bilateral hip pain with the right worse then the left. She states she has chronic pain in those joints and sometimes she hurts all over . She rates the pain today a 3/10 that is achy in the shoulders and hips. She reports the right hip pain can shoot down to her foot but the left just hurts down to the knee . She reports a family history of RA and OA on her from her mother and grandmother. She reports she also had a cousin who's whole body was destroyed by arthritis . She reports the pain was worse with movement but then felt better because she moved. She attributes thisto stiffness being relieved. She reports having been to [place] [facility] 12/09 due to inability to move her shoulders. She was discharged from the ED with steroids and antiinflammatory pain med's. She was seen outpatient at a different provider for steroid shots bilaterally in her shoulder. She reports the pain and movement in the shoulders being better but the says the right side is still giving me trouble. She expresses interest in working with PT to work out some of the pain and improve my movement. She also discussed potentially having weight loss surgery but would like to defer this referral at this time because she joined [employer] and have lost 5lbs in a month so she would like to stick with that for a while. She reports needing a refill on her gabapentin and flexeril. She denies any falls, SOB, chest pain, headaches, and dizziness.She does endorse numbness along the anterior of her stone that is chronic. She does report having increased sedation from taking her gabapentin and flexeril together so she hasn't been taking them because she doesn't like the way it makes her feel Problem List Patient Active Problem List Diagnosis Current moderate episode of major depressive disorder ([facility]) Essential hypertension Gastroesophageal reflux disease Hearing loss Impaired glucose tolerance in obese Shoulder pain Chronic low back pain with bilateral sciatica Obesity Lumbar herniated disc FAISAL on CPAP Glaucoma Cataract Anxiety Knee pain Mixed hyperglyceridemia Prediabetes Other specified anemias RLS (restless legs syndrome) Mixed hyperlipidemia Moderate persistent asthma without complication ([facility]) Past Medical History: Diagnosis Date Anxiety Cataract Chronic low back pain COPD (chronic obstructive pulmonary disease) ([facility] HHS/HCC) Depression Diabetes mellitus ([facility]) GERD (gastroesophageal reflux disease) Glaucoma Hearing loss [...] Types: Cigarettes Quit date: 09/12/1984 Years since quittin.2 Smokeless tobacco: Never Vaping Use Vaping Use: Never used Substance Use Topics Alcohol use: Not Currently Drug use: Not Currently Medications: Outpatient Medications Marked as Taking for the 12/16/23 encounter (Office Visit) with Tracy Olivares MD Medication Sig Dispense Refill ACETAMINOPHEN EXTRA STRENGTH [...] as needed for Rhinitis.) 30 mL 0 cyclobenzaprine (FLEXERIL) 5 MG tablet take 1 tablet by mouth three times a day as needed for muscle spasm empagliflozin (JARDIANCE) 10 MG tablet Take 1 tablet (10 mg total) by mouth daily. 90 tablet 1 famotidine (PEPCID) 20 MG tablet TAKE 1 TABLET BY MOUTH 2 TIMES DAILY NEEDED FOR HEARTBURN. 180 tablet 1 Ioiyhpshwhp-Guqdfjryp-Qvfkhx (TRELEGY ELLIPTA) 100-62.5-25 MCG/ACT AEROSOL POWDER, BREATH ACTIVATEDInhale 1 puff into the lungs daily. 180 each 3 gabapentin (NEURONTIN) 100 MG capsule Take 200 mg in the morning, 200 mg in the afternoon and 300 mg at bedtime (Patient taking differently: Take 2 capsules (200 mg total) by mouth see administrationinstructions. Take 200 mg in the morning and 300 mg at bedtime) 180 capsule 1 losartan-hydroCHLOROthiazide (HYZAAR) 100-12.5 MG [...] at bedtime. at bedtime 90 tablet 1 Allergies: Review of patient's allergies indicates: Allergen Reactions Propoxyphene Unknown Review of Systems Constitutional: Negative. HENT: Negative. Eyes: Negative. Respiratory: Negative. Cardiovascular: Negative. Gastrointestinal: Negative. Genitourinary: Negative. Musculoskeletal: Positive for joint pain. Negative for falls, myalgias and neck pain. Skin: Negative. Neurological: Positive for dizziness and headaches. Negative for tingling, sensory change and weakness. Endo/Heme/Allergies: Negative. Psychiatric/Behavioral: Negative. Objective: Filed Vitals: 12/16/23 1120 12/16/23 1210 BP: (!) 152/84 (!) 151/87 Pulse: 78 Resp: 18 Temp: 98 ??F (36.7 ??C) TempSrc: Temporal SpO2: 100% Weight: 126.6 kg (279 lb 3.2 oz) Height: 1.6 m (5' 3 ) Body mass index is 49.46 kg/m??. General alert, cooperative, no distress HEENT [...] Plan: Encounter Diagnose(s) ICD-10-CM SNOMED CT(R) 1. Hip pain, bilateral M25.551 HIP PAIN M25.552 2. Bilateral shoulder pain M25.511 PAIN OF BILATERAL SHOULDER REGIONS M25.512 3. Idiopathic peripheral neuropathy G60.9 IDIOPATHIC PERIPHERAL NEUROPATHY 4. Screening for rheumatoid arthritis Z13.828 PATIENT ENCOUNTER STATUS 1. Hip pain, bilateral 2. Bilateral shoulder pain 3. Idiopathic peripheral neuropathy 4. Screening for rheumatoid arthritis 1. Hip pain, bilateral - patient is taking prednisone for inflammation. -advised to finish her prescribed dose. -Patient is being referred to rheumatology to investigate RA as he has a first degree relative withthe diagnosis. -Physical therapy referral in place to improve stiffness and ROM complaints -patient advised to continue taking ibuprofen and tylenol OTC for pain control 2. Bilateral shoulder pain -- patient is taking prednisone for inflammation. -advised to finish her prescribed dose. -Patient is being referred to rheumatology to investigate RA as he has a first degree relative withthe diagnosis. -Physical therapy referral in place to improve stiffness and ROM complaints -patient advised to continue taking ibuprofen and tylenol OTC for pain control 3. Idiopathic peripheral neuropathy -patient advised to continue taking gabapentin but avoid it at night when she taker her flexeril toavoid oversedation and falls. Counseling given: Yes I personally spent a total of 30 minutes on the day of the encounter. This includes nmwc-be-orku and ebc-gyan-an-face time I provided on the day of the encounter & excludes time spent performing separately reportable services. Side effects and less common but more severe adverse effects of recommended medical therapies were explained to the patient. Follow up office visit in 4 months. Requested MyChart or telephone follow up prn if symptoms change, worsen, or persist, or if side effect of treatment is experienced. JAMELON: This dictation was at least in part performed using [employer] speak and there may be some inherent flaws in this quality technician fiberglass due to the nature of this program. Tracy Olivares MD Internal Medicine [facility], [facility]. Cosigned by Tracy Olivares MD at 12/16/2023 2:13 PM CDT Associated attestation - Tracy Olivares MD - 12/16/2023 2:13 PM CDT I, Tracy Olivares MD have reviewed the notes ie the history, examination, assessment and plan of Student Nurse Practitioner Sadi Goodwin and agree with the major elements of notes, unless otherwise addended or documented. Tracy Olivares MD Internal Medicine [facility] Medical [facility], [facility]. documented in this encounter Plan of Treatment Upcoming Encounters Date Type Department Care Team (Late st Contact Info) Description 10/03/2024 11:00 AM IT SUPPORT MANAGER Office Visit [facility] Pulmonology Specialty Clinic - [address] [address] Nathan Baig MD [address] [place] [address] 11/14/2024 10:20 AM IT SUPPORT MANAGER Office Visit [facility] Multispecialty Care - [place] [address] [address] [place] [address] [place] [address] [place] [address] Scheduled Referrals Name Type Priority Associated Diagnoses Orde r Schedule Ambulatory referral to Physical Therapy Referral Routine Hip pain, bilateral Bilateral shoulder pain Ordered: 12/16/2023 Ambulatory referral to Rheumatology Referral Routine Screening for rheumatoid arthritis Ordered: 12/16/2023 documented as of this encounter Visit Diagnoses Diagnosis Hip pain, bilateral- Primary Pain in joint, pelvic region and thigh Bilateral shoulder pain Pain in joint, shoulder region Idiopathic peripheral neuropathy Unspecified hereditary and idiopathic peripheral neuropathy Screening for rheumatoid arthritis documented in this encounter Additional Health Concerns Assessment Noted Time PHQ-9 Depression Total Score: 2 09/14/19 24 11:30 AM IT SUPPORT MANAGER documented as of this encounter Care Teams Chief Human Resources Officer Relationship Specialty Start Date End Date Tracy Olivares MD [address] [facility] [address] [place] [address] PCP - General INTERNAL MEDICINE 01/02/21 Nathan Baig MD [address] [address] Consulting Physician Internal Medicine Pulmonary Disease 09/16/21 documented as of this encounter
--- OUTSIDE RECORDS SUMMARY | 2024-09-07 05:23 | XMS_ITS | Encounter Summary ---
Author Organization [facility] Address [address] [place] [address]. [place], [place] [address] [place] [address] Care Team Providers Care Ammonium Nitrate Crystallizer Name Role Phone Tracy Olivares MD Primary Care Provider [phone] Nathan Baig MD Unavailable [phone] Reason for Visit * Reason Comments [...] st Contact Info) Description 10/03/2024 11:00 AM RAILWAY SWITCHMAN Office Visit [facility] Medical Group Pulmonology Specialty Clinic - [address] [place] [address] Nathan Baig MD [address] [place] [address] 11/14/2024 10:20 AM RAILWAY SWITCHMAN Office Visit [facility] Medical Group Multispecialty Care - [place] [address] [address] [place] [address] Tracy Olivares MD [address] [address] documented as of this encounter Procedures Procedure Name Priority Date/Time Associated Diagnosis Comments OUTSIDE LAB (SCAN ORDER) 08/23/2023 documented in this encounter Results * OUTSIDE LAB (SCAN) (08/23/2023) 08/23/2023 [facility] Scanned SCANNING Final Resu lt documented in this encounter Visit Diagnoses Not on filedocumented in this encounter Additional Health Concerns Assessment Noted Time PHQ-9 Depression Total Score: 16 023 3:44 PM CDT documented as of this encounter Care Teams Ammonium Nitrate Crystallizer Relationship Specialty Start Date End Date Tracy Olivares MD [address] [address] PCP - General INTERNAL MEDICINE 01/02/21 Nathan Baig MD [address] [address] Consulting Physician Internal Medicine Pulmonary Disease 09/16/21 documented as of this encounter
--- OUTSIDE RECORDS SUMMARY | 2024-09-07 05:23 | XMS_ITS | Encounter Summary ---
Author Organization [facility] Address [address] [place] [address]. [place] [id number] [place] [address] Care Team Providers Care Digital Content Marketing Manager Name Role Phone Tracy Olivares MD Primary Care Provider [phone] Nathan Baig MD Unavailable [phone] Reason for Visit * Reason Onset Date Comments Downtime Visit 06/08/2023 Encounter Details Date Type Department Care Team (Late st Contact Info) Description 05/11/2023 10:20 AM CDT Office Visit [facility] Medical Group Multispecialty Care - [place] [address] [address] [place], [place] [id number] Tracy Olivares MD [address] [place] [address] [place] [address] Downtime Visit Social History Tobacco Use Types Packs/Day Years [...] Sign Reading Time Taken Comments Blood Pressure 120/71 05/11/2023 10:20 AM CDT Pulse - - Temperature - - Respiratory Rate - - Oxygen Saturation - - Inhaled Oxygen Concentration - - Weight - - Height - - Body Mass Index - - documented in this encounter Progress Notes * April Yadav MD - 09/21/2023 8:37 AM CST Additional documentation from 05/08/23-05/24/23 may be found under the media tab. LITY SCOOTER REPAIRER * Radha Akhtar RN - 05/11/2023 10:20 AM CDT Refer to scanned documents for care provided during this time. documented in this encounter Plan of Treatment Upcoming Encounters Date Type Department Care Team (Late st Contact Info) Description 10/03/2024 11:00 AM MOBILITY SCOOTER REPAIRER Office Visit [facility] Medical Group Pulmonology Specialty Clinic - [address] [address] Nathan Baig MD [address] [place] [address] 11/14/2024 10:20 AM MOBILITY SCOOTER REPAIRER Office Visit [facility] Medical Group Multispecialty Care - [address] [address] Tracy Olivares MD [address] [place] [address] documented as of this encounter Visit Diagnoses Diagnosis DOWNTIME VISIT- Primary Chronic low back pain, unspecified back pain laterality, unspecified whether sciatica present documented in this encounter Administered Medications Inactive Administered Medications - up to 3 most recent administrations Medication Order MAR Action Action Date Dose Rate Site ketorolac (TORADOL) injection 60 mg 60 mg, Intramuscular, Once, 1 dose, On Tue06/08/23 at 1045Indications:Chronic low back pain, unspecified back pain laterality, unspecified whether sciatica present Given 05/11/2023 10:25 AM CDT 60 mg Right Deltoid documented in this encounter Additional Health Concerns Assessment Noted Time PHQ-9 Depression Total Score: 11 023 1:30 PM CDT documented as of this encounter Care Teams Digital Content Marketing Manager Relationship Specialty Start Date End Date Tracy Olivares MD [address] [facility] [address] [place] [address] PCP - General INTERNAL MEDICINE 01/02/21 Nathan Baig MD [address] [address] Consulting Physician Internal Medicine Pulmonary Disease 09/16/21 documented as of this encounter
--- OUTSIDE RECORDS SUMMARY | 2024-09-07 05:23 | XMS_ITS | Encounter Summary ---
Author Organization [facility] - [facility] Address [address] [place] [address]. [place] [id number] [place] [address] Care Team Providers Care Pumping Supervisor Name Role Phone Tracy Olivares MD Primary Care Provider [phone] Nathan Baig MD Unavailable [phone] Reason for Visit * Reason Comments Follow Up Pt is here today for f/u Anxiety Depression Encounter Details Date Type Department Care Team (Latest Contact Info) Description 09/14/2023 10:40 AM SODIUM CHLORITE OPERATOR Office Visit [facility] - [place] [address] [address] [place] [address] Tracy Olivares MD [address] [place] [address] [address] [place], [place] [id number] Follow Up (Pt is here today for f/u ); Anxiety; Depression Social History Tobacco Use Types Packs/Day Years Used Date Smoking Tobacco: Former Cigarettes 1.5 30 0 09/12/1954 - 09/12/1984 Smokeless Tobacco: Never Tobacco Cessation:Counseling Given: Yes Comments:counseled by Dr Olivraes Alcohol Use Standard Drinks/Week Comments Not Currently [...] Sign Reading Time Taken Comments Blood Pressure 136/76 09/14/2023 10:53 AM SODIUM CHLORITE OPERATOR Pulse 74 09/14/2023 10:53 AM SODIUM CHLORITE OPERATOR Temperature 36.5 ??C (97.7 ??F) 09/14/2023 1 0:53 AM SODIUM CHLORITE OPERATOR Respiratory Rate 18 09/14/2023 10:5 3 AM SODIUM CHLORITE OPERATOR Oxygen Saturation 100% 09/14/2023 10: 53 AM SODIUM CHLORITE OPERATOR Inhaled Oxygen Concentration - - Weight 132.2 kg (291 lb 6.4 oz) 024 10:53 AM SODIUM CHLORITE OPERATOR Height 161.3 cm (5' 3.5 ) 09/14/2023 10 :53 AM SODIUM CHLORITE OPERATOR Body Mass Index 50.81 09/14/2023 10:53 AM SODIUM CHLORITE OPERATOR documented in this encounter Patient Instructions * Patient Instructions* Tracy Olivares MD - 09/14/2023 10:40 AM SODIUM CHLORITE OPERATOR Follow up January 2024 for your physical and chronic medical issues- come fasting. Please get your RSV and Shingles vaccine from your local pharmacy. Stop januvia- strip picker jardiance. UM CHLORITE OPERATOR UM CHLORITE OPERATOR * Attachments The following attachments cannot be sent through Care Everywhere. * Depression Discharge Instructions, Adult (Barbadian) documented in this encounter Progress Notes * Tracy Olivares MD - 09/14/2023 10:40 AM CSTSummary: Follow up notes Images from the original note were not included. Internal Medicine Outpatient Progress Note CC: Follow Up (Pt is here today for f/u ), Anxiety, and Depression HPI: Keegan Amaya is a 68-year-old female who presents for follow up for depression and to discuss medication for hyperglycemia. Was seen in June 2023 and tells me she is not taking medication as the medication caused unpleasant side effects. She felt more depressed and felt suicidal with the one tablet and has since not itsince June 2023. Currently reports she is doing significantly well off Lexapro. Had been prescribed Lexapro 10 mg for depression. Previously had tolerated medication well up until running out of medication prior to visit in June 2023. However given subsequent prescription of medication, patient reports not tolerating the same dose of medication. She prefers not to be on medication-Lexapro 10 mg at this time. No suicidal thoughts or intentions to harm. No roberto, delusions or hallucinations. Currently patient resides alone. Currently not following with psychiatry or therapy. Watns to switch to [employer] from [employer] for coverage with new insurance. Problem List Patient Active Problem List Diagnosis Current moderate episode of major depressive disorder ([facility]/HCC) Essential hypertension Gastroesophageal reflux disease Hearing loss Impaired glucose tolerance in obese Shoulder pain Chronic low back pain with bilateral sciatica Obesity Lumbar herniated disc FAISAL on CPAP Glaucoma Cataract Anxiety Knee pain Pulmonary emphysema (HHS/HCC) ([facility]) Mixed hyperglyceridemia Prediabetes Other specified anemias RLS (restless legs syndrome) Mixed hyperlipidemia Past Medical History: Diagnosis Date Anxiety Cataract Chronic low back pain COPD (chronic obstructive pulmonary disease) (HHS/HCC) ([facility]) Depression Diabetes mellitus (HHS/HCC) ([facility]) GERD (gastroesophageal reflux disease) Glaucoma Hearing [...] 09/12/1984 Years since quittin.0 Smokeless tobacco: Never Tobacco comments: counseled by Dr Olivares Vaping Use Vaping Use: Never used Substance Use Topics Alcohol use: Not Currently Drug use: Not Currently Medications: Outpatient Medications Marked as Taking for the 09/14/23 encounter (Office Visit) with Tracy Olivares MD [...] daily as neededfor Heartburn. 180 tablet 1 Njfmhgfxfqq-Qcpemsyqm-Diudea (TRELEGY ELLIPTA) 100-62.5-25 MCG/ACT AEROSOL POWDER, BREATH [...] 1,000 Units by mouth daily. 30 capsule Allergies: Review of patient's allergies indicates: Allergen Reactions Propoxyphene Unknown Review of Systems Constitutional: Negative for chills, diaphoresis, fever, malaise/fatigue and weight loss. HENT: Negative. Eyes: Negative. Respiratory: Negative. Cardiovascular: Negative for chest pain, palpitations, orthopnea, claudication, leg swelling and PND. Gastrointestinal: Negative. Genitourinary: Negative. Musculoskeletal: Negative. Neurological: Negative. Psychiatric/Behavioral: Negative. Objective: Filed Vitals: 09/14/23 1053 BP: 136/76 Pulse: 74 Resp: 18 Temp: 97.7 ??F (36.5 ??C) TempSrc: Temporal SpO2: 100% Weight: 132.2 kg (291 lb 6.4 oz) Height: 1.613 m (5' 3.5 ) Body mass index is 50.81 kg/m??. General alert, cooperative, no distress HEENT [...] Plan: Encounter Diagnose(s) ICD-10-CM SNOMED CT(R) 1. Prediabetes R73.03 PREDIABETES empagliflozin (JARDIANCE) 10 MG tablet 2. Impaired glucose tolerance in obese R73.02 IMPAIRED GLUCOSE TOLERANCE IN OBESE empagliflozin (JARDIANCE) 10 MG tablet 3. Moderate episode of recurrent major depressive disorder (CMS/HCC) F33.1 RECURRENT MAJOR DEPRESSIVE EPISODES, MODERATE 4. Anxiety F41.9 ANXIETY 1. Prediabetes -Patient recently switched insurances. Wanting to switch from Januvia to Jardiance due to coverage issues. -Changed empagliflozin (JARDIANCE) 10 MG tablet; Take 1 tablet (10 mg total) by mouth daily. Dispense: 90 tablet; Refill: 1 -Discontinue Januvia 2. Impaired glucose tolerance in obese -Changed to empagliflozin (JARDIANCE) 10 MG tablet; Take 1 tablet (10 mg total) by mouth daily. Dispense: 90 tablet; Refill: 1 -Discontinue Januvia 3. Moderate episode of recurrent major depressive disorder (CMS/HCC) -Currently reports symptoms stable. Has not taking Lexapro 10 mg since June 2023. Did not tolerate medication according to patient. Close monitoring for now. Declines any change in medications. Will follow-up during subsequent visits. 4. Anxiety -Currently reports symptoms stable. Has not taking Lexapro 10 mg since June 2023. Did not tolerate medication according to patient. Close monitoring for now. Declines any change in medications. Will follow-up during subsequent visits. Counseling given: Yes Tobacco comments: counseled by Dr Olivares I personally spent a total of 20 minutes on the day of the encounter. This includes xyhq-xn-pbrh and ebj-perm-id-face time I provided on the day of [...] was at least in part performed using [employer] and there may be some inherent flaws in this trestle mainternance laborer due to the nature of this program. Tracy Olivares MD Internal Medicine [facility], [facility]. UM CHLORITE OPERATOR documented in this encounter Plan of Treatment Upcoming Encounters Date Type Department Care Team (Late st Contact Info) Description 10/03/2024 11:00 AM SODIUM CHLORITE OPERATOR Office Visit [facility] Medical [facility] - [address] [address] Nathan Baig MD [address] [place] [address] 11/14/2024 10:20 AM SODIUM CHLORITE OPERATOR Office Visit [facility] - [place] [address] [address] [place] [address] Tracy Olivares MD [address] [place] [address] [address] [place] [address] documented as of this encounter Visit Diagnoses Diagnosis Prediabetes- Primary Other abnormal glucose Impaired glucose tolerance in obese Other abnormal glucose Moderate episode of recurrent major depressive disorder ([facility]) Anxiety Anxiety state, unspecified documented in this encounter Additional Health Concerns Assessment Noted Time PHQ-9 Depression Total Score: 2 09/14/19 24 11:30 AM SODIUM CHLORITE OPERATOR documented as of this encounter Care Teams Pumping Supervisor Relationship Specialty Start Date End Date Tracy Olivares MD [address] [address] PCP - General INTERNAL MEDICINE 01/02/21 Nathan Baig MD [address] [address] Consulting Physician Internal Medicine Pulmonary Disease 09/16/21 documented as of this encounter
--- OUTSIDE RECORDS SUMMARY | 2024-09-07 05:23 | XMS_ITS | Encounter Summary ---
Author Organization [facility] Address [address] [place] [address]. [place], [place] [address] [place] [address] Care Team Providers Care Whizzer Hand Name Role Phone Tracy Olivares MD Primary Care Provider [phone] Nathan Baig MD Unavailable [phone] Reason for Visit * Reason Onset Date Comments Called To Cancel Office Appt. 01/10/2024 Encounter Details Date Type Department Care Team (Late st Contact Info) Description 01/10/[address] [facility] [address] [place] [address] Ly Collado, [place] [address] Called To Cancel Office Appt. Social History Tobacco Use Types Packs/Day Years [...] Progress Notes * Ly Collado, PT - 01/10/2024 5:00 PM CDT Contacted patient regarding her missed visit. Left message regarding her visit and her next visit scheduled. Reminded her of cancellation policy. documented in this encounter Plan of Treatment Upcoming Encounters Date Type Department Care Team (Late st Contact Info) Description 10/03/2024 11:00 AM WARNING ANALYST Office Visit [facility] Medical [facility] - [address] [address] Nathan Baig MD [address] [facility] [address] [place] [address] 11/14/2024 10:20 AM WARNING ANALYST Office Visit [facility] Multispecialty Care - [place] [address] [address] [place] [address] Tracy Olivares MD [address] [place] [address] documented as of this encounter Visit Diagnoses Not on filedocumented in this encounter Additional Health Concerns Assessment Noted Time PHQ-9 Depression Total Score: 2 09/14/19 24 11:30 AM WARNING ANALYST documented as of this encounter Care Teams Whizzer Hand Relationship Specialty Start Date End Date Tracy Olivares MD [address] [place] [address] PCP - General INTERNAL MEDICINE 01/02/21 Nathan Baig MD 3 [facility] [place] [address] [place] [address] Consulting Physician Internal Medicine Pulmonary Disease 09/16/21 documented as of this encounter
--- OUTSIDE RECORDS SUMMARY | 2024-09-07 05:23 | XMS_ITS | Encounter Summary ---
Author Organization [facility] Address [address] [place] [address]. [place], [place] [address] [place] [address] Care Team Providers Care Combustion Analyst Name Role Phone Tracy Olivares MD Primary Care Provider [phone] Nathan Baig MD Unavailable [phone] Reason for Visit * Consultation (Routine) - Closed Specialty Diagnoses / Procedures Referred By Contact Referred To Contact NUTRITION / ENDOCRINOLOGY Diagnoses Prediabetes Class 3 severe obesity due to excess calories without serious comorbidity with body mass index (BMI) of 50.0 to 59.9 in adult ([facility]/HCC [facility]) Procedures OFFICE/OUTPT VISIT,NEW,LEVL III OFFICE/OUTPT VISIT,NEW,LEVL IV OFFICE/OUTPT VISIT,NEW,LEVL V OFFICE/OUTPT VISIT,EST,LEVL III OFFICE/OUTPT VISIT,EST,LEVL IV OFFICE/OUTPT VISIT,EST,LEVL V Tracy Olivares MD [address] [facility] [address] [place] [address] Phone: tel:[phone] fax:[phone] [facility] Diabetes and Endocrinology - [facility] [place] [address] Phone: tel: fax: Referral ID Status Reason Start Date Expiration Date Visits Re quested Visits Authorized [id number] Closed 02/25/2023 03/27/2024 99 99 Encounter Details Date Type Department Care Team (Latest Contact Info) Description 05/31/2023 9:30 AM CDT - 05/31/2023 11:59 PM CDT Hospital Encounter [facility] [address] [place] [address] Tracy Olivares MD [address] [facility] [address] [place] [address] Discharge Disposition: Home or Self Care (Routine [...] as needed. 18 g 5 3 03/20/20 24 atorvastatin (LIPITOR) 20 MG tabletIndications:M ixed hyperlipidemia Take 1 tablet (20 mg total) by mouth nightly at bedtime. at bedtime 90 tablet 1 3 07/05/20 23 AZELASTINE 137 MCG/SPRAY nasal sprayIndications:Se asonal allergic [...] oderate episode of recurrent major depressive disorder ([facility] HHS/HCC),Generalize d anxiety disorder Take 1 tablet (10 mg total) by mouth daily. 90 tablet 2 3 07/05/20 23 esomeprazole (NEXIUM) 40 MG capsule TAKE [...] BREATH ACTIVATEDIndication s:Pulmonary emphysema, unspecified emphysema type ([facility] HHS/HCC) Inhale 1 puff into the lungs daily. 180 each 3 3 03/20/20 24 gabapentin (NEURONTIN) 100 MG capsuleIndications: Idiopathic peripheral neuropathy Take 200 mg in the morning, 200 mg in the afternoon and 300 mg at bedtime 180 capsule 1 3 12/16/19 24 losartan-hydroCHLOR Othiazide (HYZAAR) 100-12.5 MG tabletIndications:E ssential [...] by mouth daily. 90 tablet 1 3 07/05/20 23 tiZANidine (ZANAFLEX) 4 MG tabletIndications:C hronic bilateral [...] Notes * Alexandria Lu, MIGUEL A - 05/31/2023 9:30 AM CDT DIETITIAN OUTPATIENT MEDICAL NUTRITION THERAPY REPORT Patient: Keegan Amaya : 1955 Date of visit: May 31, 2023 Total Visit Time: 60 minutes Individual(s) educated: [x] Patient [] Spouse/ significant other [] Family member [] Caregiver Assessment: Initial Assessment - virtual NUTRITION ASSESSMENT CLIENT HISTORY Age: 67-year-old female Past Medical History: Diagnosis Date Anxiety Cataract Chronic low back pain COPD (chronic obstructive pulmonary disease) ([facility]) Depression Diabetes mellitus ([facility]) GERD (gastroesophageal reflux disease) Glaucoma Hearing loss left ear Hypertension Impaired glucose tolerance Obese FAISAL on CPAP Shoulder pain ANTHROPOMETRICS Height: Ht Readings from Last 1 Encounters: 01/07/23 5' 3.5 (1.613 m) Weight: Wt Readings from Last 3 Encounters: 01/07/23 130 kg (286 lb 9.6 oz) 11/30/22 130 kg (286 lb 9.6 oz) 10/29/22 128.8 kg (284 lb) BIOCHEMICAL DATA, TESTS, PROCEDURES HGB A1C Date [...] diagnosis of diabetes in children. According to [place] Diabetes Association (ADA) guidelines, hemoglobin A1c <7.0% [...] LDL-C. Buddy ANAND et al. PORTER. 2013;310(19): 4266-1983 (http://education.Repunch.GT Channel/faq/DPM730) HDL Date Value Ref Range Status 01/07/2023 65 > OR = 50 mg/dL Final TRIGLYCERIDES Date Value Ref Range Status 01/07/2023 63 <150 mg/dL Final FOOD AND NUTRITION-RELATED HISTORY Morning meal at 11 a.m. - pack of oatmeal and apple or Premier Protein drink Next intake at 2-3 p.m. and then 5-6 p.m. which can be a small pizza or chicken and broccoli. Drinks mostly water and will have some juice. Patient stated she is present for nutrition visit because she is interested in losing weight. NUTRITION DIAGNOSIS Food and nutrition related knowledge deficit related to lack of prior sufficient education as evidenced by patient expressing confusion over appropriate eating pattern for health related condition and goals. NUTRITION INTERVENTION Nutrition education providing recommended modifications. Education provided on the carbohydrate and the non-carbohydrate food groups, basic carbohydrate counting, the importance of having regular meal and snack intake throughout the day, importance of fiber-filled carbohydrates, balancing meals using the plate method, how to read Nutrition Facts labels, nutrient dense snack combinations. Reviewed patient's meals and snacks providing suggestions on waysto portion control and balance with protein, complex carbs, healthy fat and color for veggies. Nutrition Prescription: 2-3 servings carbohydrate per meal and 1 servings carbohydrate per snack Teaching methods: Provided written and visual handouts and verbally reviewed handouts. Food models and food labels used. Materials provided: Planning Healthy Meals, Snack Smart MONITORING/EVALUATION Adherence to nutrition related recommendations/prescription to assist with her goals to lose weightand lower A1C. Weight loss of 0.-1 lbs. per week towards a 7-10% weight loss from baseline weight. Follow-up plan: one month RD contact information provided. Patient encouraged to call or e-mail with any nutrition related questions. ALEXANDRIA LU RD 05/31/23, 9:52 AM documented in this encounter Plan of Treatment Upcoming Encounters Date Type Department Care Team (Late st Contact Info) Description 10/03/2024 11:00 AM RETAIL LOSS PREVENTION SPECIALIST Office Visit [facility] Specialty Clinic - [place] [address] [address] [place] [address] Nathan Baig MD [address] [place] [address] 11/14/2024 10:20 AM RETAIL LOSS PREVENTION SPECIALIST Office Visit [facility] Multispecialty Care - [place] [address] [address] [place] [address] Tracy Olivares MD [address] [address] documented as of this encounter Visit Diagnoses Not on filedocumented in this encounter Additional Health Concerns Assessment Noted Time PHQ-9 Depression Total Score: 11 023 1:30 PM CDT documented as of this encounter Care Teams Combustion Analyst Relationship Specialty Start Date End Date Tracy Olivares MD [address] [address] PCP - General INTERNAL MEDICINE 01/02/21 Nathan Baig MD [address] [address] Consulting Physician Internal Medicine Pulmonary Disease 09/16/21 documented as of this encounter
--- OUTSIDE RECORDS SUMMARY | 2024-09-07 05:23 | XMS_ITS | Encounter Summary ---
Author Organization [facility] - [facility] Address [address] [place] [address]. [place] [id number] [place] [address] Care Team Providers Care Architectural Representative Name Role Phone Tracy Olivares MD Primary Care Provider [phone] Nathan Baig MD Unavailable [phone] Encounter Details Date Type Department Care Team (Late st Contact Info) Description 02/07/2024 Orders Only [facility] Medical Group Multispecialty Care - [place] [address] [address] [place], [place] [address] [place] [address] [place] [address] 157 [place] [address] Social History Tobacco Use Types [...] Progress Notes * Tracy Olivares MD - 02/07/2024 5:24 PM CDT Patient concerned about starting Celebrex. This was recently prescribed by different specialist forback pain. Patient concerned about possible GERD symptoms worsening as well as heart symptoms associated with this medication. She has significant GERD and Bill Nicol has some list of such side effects, patient very concerned. Has been on tramadol in the past and wants to use this medication again. Discussed with patient about signing an updated CSA form and will come to have this done. Please have a CSA form ready for the front office director thank you. documented in this encounter Plan of Treatment Upcoming Encounters Date Type Department Care Team (Late st Contact Info) Description 10/03/2024 11:00 AM MEDICAL RECORD CLERK Office Visit [facility] Medical [facility] - [address] [address] Nathan Baig MD [address] [address] 11/14/2024 10:20 AM MEDICAL RECORD CLERK Office Visit [facility] Multispecialty Care - [place] [address] [address] [place] [address] Tracy Olivares MD [address] [place] [address] documented as of this encounter Visit Diagnoses Diagnosis Chronic bilateral low back pain with bilateral sciatica- Primary documented in this encounter Additional Health Concerns Assessment Noted Time PHQ-9 Depression Total Score: 2 09/14/19 24 11:30 AM MEDICAL RECORD CLERK documented as of this encounter Care Teams Architectural Representative Relationship Specialty Start Date End Date Tracy Olivares MD [address] [place] [address] PCP - General INTERNAL MEDICINE 01/02/21 Nathan Baig MD [address] [address] Consulting Physician Internal Medicine Pulmonary Disease 09/16/21 documented as of this encounter
--- OUTSIDE RECORDS SUMMARY | 2024-09-07 05:23 | XMS_ITS | Encounter Summary ---
Author Organization [facility] Address [address] [place] [address]. [place] [id number] [place] [address] Care Team Providers Care Flexible Nanny Name Role Phone Tracy Olivares MD Primary Care Provider [phone] Nathan Baig MD Unavailable [phone] Reason for Visit * Consultation (Routine) - Closed Specialty Diagnoses / Procedures Referred By Contoziel t Referred To Contact NUTRITION / [facility] Diabetes and Nutrition Diagnoses Class 3 severe obesity due to excess calories without serious comorbidity with body mass index (BMI) of 50.0 to 59.9 in adult (CMS/HCC HHS/[facility]) Procedures OFFICE/OUTPATIENT NEW LOW MDM 30-44 MINUTES OFFICE/OUTPT VISIT,NEW,LEVL IV OFFICE/OUTPT VISIT,NEW,LEVL V OFFICE/OUTPT VISIT,EST,LEVL III OFFICE/OUTPT VISIT,EST,LEVL IV OFFICE/OUTPT VISIT,EST,LEVL V Tracy Olivares MD [address] [facility] [address] [place] [address] Phone: tel: fax: [facility] [address] [place] [address] Phone: tel: fax: Referral ID Status Reason Start Date Expiration Date Visits Re quested Visits Authorized [id number] Closed 06/08/2023 07/08/2024 99 [phone] Encounter Details Date Type Department Care Team (Latest Contact Info) Description 10/18/2023 9:50 AM HIGH SCHOOL HVAC R INSTRUCTOR - 10/18/2023 11:59 PM HIGH SCHOOL HVAC R INSTRUCTOR Hospital Encounter [facility] [address] [place] [address] Tracy Olivares MD [address] [facility] [address] [place] [address] Alexandria Lu, MIGUEL A Discharge Disposition: Home [...] and quantity 30 mL 2 07/11/20 24 diphenhydrAMINE-zin c (BENADRYL EXTRA STRENGTH) 2-0.1 % Cream creamIndications:Pr uritus Use twice daily on skin to help with itching. 28 g 1 1 07/11/20 24 empagliflozin (JARDIANCE) 10 MG tabletIndications:P rediabetes,Impaired glucose tolerance in obese Take 1 tablet (10 mg total) by mouth daily. 90 tablet 1 4 02/08/20 24 famotidine (PEPCID) 20 MG tabletIndications:G astroesophageal reflux [...] BREATH ACTIVATEDIndication s:Pulmonary emphysema, unspecified emphysema type (CMS/HCC HHS/HCC) Inhale [...] MORNING 90 tablet 1 3 02/20/20 24 tiZANidine (ZANAFLEX) 4 MG tabletIndications:C hronic bilateral low back pain with bilateral sciatica Take 0.5 tablets (2 mg total) by mouth nightly at bedtime. at bedtime 90 tablet 1 3 02/22/20 24 Vitamin D, Cholecalciferol, 50 MCG (2000 UT) CapIndications:Samanta min D deficiency Take 1,000 Units by mouth daily. 30 capsule 1 10/20/19 24 documented as of this encounter Progress Notes * Alexandria Lu, RD - 10/18/2023 10:00 AM CST DIETITIAN OUTPATIENT MEDICAL NUTRITION THERAPY REPORT Patient: Keegan Amaya : 1955 Date of visit: October 18, 2023 Total Visit Time: 30 minutes Individual(s) educated: [x] Patient [] Spouse/ significant other [] Family member [] Caregiver Assessment: Re-Assessment - virtual NUTRITION ASSESSMENT CLIENT HISTORY Age: 68-year-old female Past Medical History: Diagnosis Date Anxiety Cataract Chronic low back pain COPD (chronic obstructive pulmonary disease) (HHS/HCC) (CMS/HCC) Depression Diabetes mellitus (HHS/HCC) (CMS/HCC) GERD (gastroesophageal reflux disease) Glaucoma Hearing loss left ear Hypertension Impaired glucose tolerance Obese FAISAL on CPAP Shoulder pain ANTHROPOMETRICS Height: Ht Readings from Last 1 Encounters: 09/23/23 1.6 m (5' 3 ) Weight: Wt Readings from Last 3 Encounters: 09/23/23 129.3 kg (285 lb) 09/14/23 132.2 kg (291 lb 6.4 oz) 08/26/23 129 kg (284 lb 6.4 oz) BIOCHEMICAL DATA, TESTS, PROCEDURES HGB A1C [...] diagnosis of diabetes in children. According to [place] Diabetes Association (ADA) guidelines, hemoglobin A1c <7.0% [...] factors. LDL-C is now calculated using the Buddy-Landaverde calculation, which is a validated novel method providing better accuracy than the Friedewald equation in the estimation of LDL-C. Buddy SS et al. PORTER. 2013;310(19): 5151-1415 (http://education.[employer]/faq/TVC875) HDL Date Value Ref Range Status 01/07/2023 65 > OR = 50 mg/dL Final TRIGLYCERIDES Date Value Ref Range Status 01/07/2023 63 <150 mg/dL Final FOOD AND NUTRITION-RELATED HISTORY Last seen for nutrition visit July 2023. Her weight has decreased by 2 lbs. Patient's diet recall shows she is consuming more salt content than she estimated through items like mckay/other red meats, eating out, and salt on her apples at night. Patient stated her activity is limited due to physical limitations. She is thinking about looking into bariatric surgery as her daughter just receivedthe sx this past week. Patient's recall shows she could focus more in depth on her nutrition related choices and amounts as to some says she may not be eating enough to fuel her body properly. NUTRITION DIAGNOSIS Food and nutrition related knowledge deficit related to lack of prior sufficient education as evidenced by patient expressing confusion over appropriate eating pattern for health related condition and goals. (Continue) NUTRITION INTERVENTION Nutrition education providing recommended modifications. Discussed the relationship between weight from inflammation and water retention related to what she is eating. Educated on adequate intake at meals and snacks teaching the combinations of protein, fiber filled carbs, healthy fats, and vegetables. Reviewed the material and examples on ways to change her behaviors for a more consistent and indepth look into her choices and balance/portions. Patient stated her questions answered. Teaching methods: Provided written and visual handouts and verbally reviewed handouts. Materials provided: Foods List, Guide, Plate It - all mailed MONITORING/EVALUATION Patient is to report at follow-up changes to the reduction of salt content in her food choices, improved combinations of macro nutrients at meals following the portion plate methods. Follow-up plan: two months RD contact information provided. Patient encouraged to call or e-mail with any nutrition related questions. ALEXANDRIA LU RD 10/18/23, 10:44 AM SCHOOL HVAC R INSTRUCTOR documented in this encounter Plan of Treatment Upcoming Encounters Date Type Department Care Team (Late st Contact Info) Description 10/03/2024 11:00 AM HIGH SCHOOL HVAC R INSTRUCTOR Office Visit [facility] Medical [facility] - [address] [address] Nathan Baig MD [address] [address] 11/14/2024 10:20 AM HIGH SCHOOL HVAC R INSTRUCTOR Office Visit [facility] Multispecialty Care - [place] [address] [address] [place] [address] Tracy Olivares MD [address] [place] [address] documented as of this encounter Visit Diagnoses Not on filedocumented in this encounter Additional Health Concerns Assessment Noted Time PHQ-9 Depression Total Score: 2 09/14/19 24 11:30 AM HIGH SCHOOL HVAC R INSTRUCTOR documented as of this encounter Care Teams Flexible Nanny Relationship Specialty Start Date End Date Tracy Olivares MD [address] [place] [address] PCP - General INTERNAL MEDICINE 01/02/21 Nathan Baig MD 3 [facility] [address] [place] [address] Consulting Physician Internal Medicine Pulmonary Disease 09/16/21 documented as of this encounter
--- OUTSIDE RECORDS SUMMARY | 2024-09-07 05:23 | XMS_ITS | Encounter Summary ---
Author Organization [facility] Address [address] [place] [address]. [place], [place] [address] [place] [address] Care Team Providers Care Concrete Block Mason Name Role Phone Tracy Olivares MD Primary Care Provider [phone] Nathan Baig MD Unavailable [phone] Encounter Details Date Type Department Care Team (Latest Contact Info) Description 03/16/2024 Travel Social History Tobacco Use Types Packs/Day [...] st Contact Info) Description 10/03/2024 11:00 AM PIPE ASSEMBLY WORKER Office Visit [facility] Pulmonology Specialty Clinic - [place] [address] [address] [facility] [address] [place] [address] Nathan Baig MD [address] [place] [address] 11/14/2024 10:20 AM PIPE ASSEMBLY WORKER Office Visit [facility] Multispecialty Care - [place] [address] [address] [facility] [address] [place] [address] Tracy Olivares MD [address] [facility] [address] [place] [address] documented as of this encounter Visit Diagnoses Not on filedocumented in this encounter Additional Health Concerns Assessment Noted Time PHQ-9 Depression Total Score: 2 09/14/19 24 11:30 AM PIPE ASSEMBLY WORKER documented as of this encounter Care Teams Concrete Block Mason Relationship Specialty Start Date End Date Tracy Olivares MD [address] [facility] 157 [place] [address] PCP - General INTERNAL MEDICINE 01/02/21 Nathan Baig MD [address] [address] Consulting Physician Internal Medicine Pulmonary Disease 09/16/21 documented as of this encounter
--- OUTSIDE RECORDS SUMMARY | 2024-09-07 05:23 | XMS_ITS | Encounter Summary ---
Author Organization [facility] Address [address] [place] [address]. [place], [place] [address] [place] [address] Care Team Providers Care Cold Mill Supervisor Name Role Phone Tracy Olivares MD Primary Care Provider [phone] Nathan Baig MD Unavailable [phone] Encounter Details Date Type Department Care Team (Latest Contact Info) Description 02/28/2024 Scan HEALTH INFO SRVCS Scanned, Doc Med [...] st Contact Info) Description 10/03/2024 11:00 AM STICK WELDER Office Visit [facility] Pulmon[facility]ty [facility] - [place] [address] [address] Nathan Baig MD [address] [place] [address] 11/14/2024 10:20 AM STICK WELDER Office Visit [facility] Multispecialty Care - [place] [address] [address] [place] [address] Tracy Olivares MD [address] [place] [address] documented as of this encounter Visit Diagnoses Not on filedocumented in this encounter Additional Health Concerns Assessment Noted Time PHQ-9 Depression Total Score: 2 09/14/19 24 11:30 AM STICK WELDER documented as of this encounter Care Teams Cold Mill Supervisor Relationship Specialty Start Date End Date Tracy Olivares MD [address] [place] [address] PCP - General INTERNAL MEDICINE 01/02/21 Nathan Baig MD [address] [address] Consulting Physician Internal Medicine Pulmonary Disease 09/16/21 documented as of this encounter
--- OUTSIDE RECORDS SUMMARY | 2024-09-07 05:23 | XMS_ITS | Encounter Summary ---
Author Organization [facility] Address [address] [place] [address]. [place], [place] [address] [place] [address] Care Team Providers Care Wage Analyst Name Role Phone Tracy Olivares MD Primary Care Provider Nathan Baig MD Unavailable [phone] Reason for Visit * Reason Comments Sinus Problem Pt is here sinus iss ues patient was tested for flu and covid at urgent care it was negative Encounter Details Date Type Department Care Team (Latest Contact Info) Description 08/26/2023 1:00 PM PULP SCREEN OPERATOR Office Visit [facility] Multispecialty Care - [place] [address] [address] [place] [address] Tracy Olivares MD [address] [facility] 157 [place], [place] [id number] Sinus Problem (Pt is here sinus issues patient was tested for flu and covid at urgent care it was negative) Social History Tobacco Use Types Packs/Day Years [...] Sign Reading Time Taken Comments Blood Pressure 138/88 08/26/2023 1:00 PM PULP SCREEN OPERATOR Pulse 73 08/26/2023 1:00 PM PULP SCREEN OPERATOR Temperature 37 ??C (98.6 ??F) 08/26/2023 1:00 PM PULP SCREEN OPERATOR Respiratory Rate 18 08/26/2023 1:00 PM PULP SCREEN OPERATOR Oxygen Saturation 98% 08/26/2023 1:00 PM PULP SCREEN OPERATOR Inhaled Oxygen Concentration - - Weight 129 kg (284 lb 6.4 oz) 08/26/2023 1:00 PM PULP SCREEN OPERATOR Height 161.3 cm (5' 3.5 ) 08/26/2023 1:00 PM PULP SCREEN OPERATOR Body Mass Index 49.59 08/26/2023 1:00 PM PULP SCREEN OPERATOR documented in this encounter Patient Instructions * Attachments The following attachments cannot be sent through Care Everywhere. * Sinusitis Discharge Instructions, Adult (Japanese) documented in this encounter Progress Notes * Tracy Olivares MD - 08/26/2023 1:00 PM CSTSummary: Acute visit notes Images from the original note were not included. Internal Medicine Outpatient Progress Note CC: Sinus Problem (Pt is here sinus issues patient was tested for flu and covid at urgent care it was negative) HPI: Keegan Amaya is a 68-year-old female who presents for acute visit for respiratory symptoms mainlyconcerning for sinus congestion and discomfort. She was seen at an urgent care and had COVID and flu test done over the last 4 days and all results came back negative. Confirmatory test was also negative for COVID. Was prescribed steroids only and currently on her last day but still feels congestedwith ongoing nasal drainage. No fever or chills. No headaches. No joint aches or pains. Here to discuss treatment. Denies any cough. No chest pain or shortness of breath. No loss of smell or loss of taste. Problem List Patient Active Problem List Diagnosis [...] back pain COPD (chronic obstructive pulmonary disease) ([facility]/HCC) ([facility]) Depression Diabetes mellitus (HHS/HCC) ([facility]) GERD (gastroesophageal reflux disease) Glaucoma [...] Outpatient Medications Marked as Taking for the 08/26/23 encounter (Office Visit) with Tracy Olivares MD Medication Sig Dispense Refill albuterol sulfate HFA 108 (90 Base) MCG/ACT inhaler Inhale 2 puffs into the lungs every 4 (four) hours as needed. 18 g 5 amoxicillin-clavulanate (AUGMENTIN) 875-125 MG tablet Take 1 tablet (875 mg total) by mouth 2 (two)times daily for 5 days. 10 tablet 0 aspirin 81 MG tablet Take 1 tablet (81 mg total) by mouth daily. atorvastatin (LIPITOR) 20 MG tablet Take 1 tablet (20 mg total) by mouth nightly at bedtime. at bedtime 90 tablet 1 famotidine (PEPCID) 20 MG tablet Take 1 tablet (20 mg total) by mouth 2 (two) times daily as neededfor Heartburn. 180 tablet 1 fluticasone propionate (FLONASE) 50 MCG/ACT nasal spray 2 sprays by Nasal route daily. 16 g 5 Lqkmshualvl-Rvlcdprcw-Brslmi (TRELEGY ELLIPTA) 100-62.5-25 MCG/ACT AEROSOL POWDER, BREATH [...] tablet (15 mg total) by mouth daily. ONETOUCH VERIO test strip pantoprazole EC (PROTONIX) 40 MG tablet pantoprazole 40 mg tablet,delayed release TAKE 1 TABLET BY MOUTH EVERY DAY IN THE MORNING 90 tablet 1 SITagliptin (JANUVIA) 50 MG tablet Take 1 tablet (50 mg total) by mouth daily. 90 tablet 1 tiZANidine (ZANAFLEX) 4 MG [...] diaphoresis, fever, malaise/fatigue and weight loss. HENT: Positive for congestion and sinus pain. Negative for ear discharge, ear pain, hearing loss, nosebleeds, sore throat and tinnitus. Eyes: Negative. Respiratory: Negative. Negative for stridor. Cardiovascular: Negative for chest pain, palpitations, orthopnea, claudication, leg swelling and PND. Gastrointestinal: Negative. Genitourinary: Negative. Musculoskeletal: Negative. Skin: Negative. Objective: Filed Vitals: 08/26/23 1300 BP: 138/88 Pulse: 73 Resp: 18 Temp: 98.6 ??F (37 ??C) TempSrc: Temporal SpO2: 98% Weight: 129 kg (284 lb 6.4 oz) Height: 1.613 m (5' 3.5 ) Body mass index is 49.59 kg/m??. General alert, cooperative, no distress HEENT EOM's intact. Oral mucosa normal. Nasal septum is midline. Mild sinus tenderness. Neck Supple, symmetrical, trachea midline, no adenopathy, [...] Plan: Encounter Diagnose(s) ICD-10-CM SNOMED CT(R) 1. Acute maxillary sinusitis, recurrence not specified J01.00 ACUTE MAXILLARY SINUSITIS amoxicillin-clavulanate (AUGMENTIN) 875-125 MG tablet 1. Acute maxillary sinusitis, recurrence not specified - amoxicillin-clavulanate (AUGMENTIN) 875-125 MG tablet; Take 1 tablet (875 mg total) by mouth 2 (two) times daily for 5 days. Dispense: 10 tablet; Refill: 0 -Complete steroids. Continue with antihistamines. Recent COVID and flu test done at an urgent care negative. Her vital signs appear stable. Close follow-up if worsening symptoms. Counseling given: Yes Tobacco comments: counseled by Dr Olivares I personally spent a total of 30 minutes on the day of the encounter. This includes njee-hm-zusd and etb-ldzo-ln-face time I provided on the day of [...] was at least in part performed using [employer] speak and there may be some inherent flaws in this paper latcher due to the nature of this program. Tracy Olivares MD Internal Medicine [facility]. SCREEN OPERATOR documented in this encounter Plan of Treatment Upcoming Encounters Date Type Department Care Team (Late st Contact Info) Description 10/03/2024 11:00 AM PULP SCREEN OPERATOR Office Visit [facility] Medical [facility] Pulmonology Specialty Clinic - [address] [address] Nathan Baig MD 3 [facility] [address] [place] [address] 11/14/2024 10:20 AM PULP SCREEN OPERATOR Office Visit [facility] Multispecialty Care - [place] [address] [address] [place] [address] Tracy Olivares MD [facility] [address] documented as of this encounter Visit Diagnoses Diagnosis Acute maxillary sinusitis, recurrence not specified- Primary documented in this encounter Additional Health Concerns Assessment Noted Time PHQ-9 Depression Total Score: 16 023 3:44 PM CDT documented as of this encounter Care Teams Wage Analyst Relationship Specialty Start Date End Date Tracy Olivares MD [address] [place] [address] PCP - General INTERNAL MEDICINE 01/02/21 Nathan Baig MD 3 [facility] [address] [place] [address] Consulting Physician Internal Medicine Pulmonary Disease 09/16/21 documented as of this encounter
--- OUTSIDE RECORDS SUMMARY | 2024-09-07 05:23 | XMS_ITS | Encounter Summary ---
Author Organization [facility] Address [address] [place] [address]. [place], [place] [address] [place] [address] Care Team Providers Care Hat Marker Name Role Phone Tracy Olivares MD Primary Care Provider [phone] Nathan Baig MD Unavailable [phone] Encounter Details Date Type Department Care Team (Latest Contact Info) Description 06/01/2023 Travel Social History Tobacco Use Types Packs/Day [...] st Contact Info) Description 10/03/2024 11:00 AM DOOR LINER HELPER Office Visit [facility] Pulmonology Specialty Clinic - [address] [place] [address] Nathan Baig MD [address] [place] [address] 11/14/2024 10:20 AM DOOR LINER HELPER Office Visit [facility] Multispecialty Care - [address] [place] [address] Tracy Olivares MD [address] [place] [address] documented as of this encounter Visit Diagnoses Not on filedocumented in this encounter Additional Health Concerns Assessment Noted Time PHQ-9 Depression Total Score: 11 023 1:30 PM CDT documented as of this encounter Care Teams Hat Marker Relationship Specialty Start Date End Date Tracy Olivares MD [address] [place] [address] PCP - General INTERNAL MEDICINE 01/02/21 Nathan Baig MD [address] [address] Consulting Physician Internal Medicine Pulmonary Disease 09/16/21 documented as of this encounter
--- OUTSIDE RECORDS SUMMARY | 2024-09-07 05:23 | XMS_ITS | Encounter Summary ---
Author Organization [facility] Address [address] [place] [address]. [place], [place] [address] [place] [address] Care Team Providers Care Flight Technician Name Role Phone Tracy Olivares MD Primary Care Provider [phone] Nathan Baig MD Unavailable [phone] Reason for Visit * Reason Onset Date Comments Orders 02/24/2024 Encounter Details Date Type Department Care Team (Late st Contact Info) Description 02/24/[address] [facility] Multispecialty Care [place] [address] [address] [place] [address] [place] [address] [place] [address] [place] [address] Orders Social History Tobacco Use Types [...] encounter Progress Notes * Mary Mcintyre - 02/24/2024 1:48 PM CDT Pt called in stating that she is needing her MRI order sent somewhere else due to pt doesn't drive in [facility]. Pt did mention [facility] and [facility] she wasn't sure about [facility] if they do Mri or not. Pt stated that she is needing somewhere local. documented in this encounter Plan of Treatment Upcoming Encounters Date Type Department Care Team (Late st Contact Info) Description 10/03/2024 11:00 AM CHEMICAL TREATMENT PLANT TECHNICIAN Office Visit [facility] Pul[facility]ology Specialty Clinic - [address] [address] Nathan Baig MD 3 [facility] [place] [address] [place] [address] 11/14/2024 10:20 AM CHEMICAL TREATMENT PLANT TECHNICIAN Office Visit [facility] Multispecialty Care - [place] [address] [address] [place] [address] Tracy Olivares MD [facility] [address] [address] documented as of this encounter Visit Diagnoses Not on filedocumented in this encounter Additional Health Concerns Assessment Noted Time PHQ-9 Depression Total Score: 2 09/14/19 24 11:30 AM CHEMICAL TREATMENT PLANT TECHNICIAN documented as of this encounter Care Teams Flight Technician Relationship Specialty Start Date End Date Tracy Olivares MD [address] [place] [address] PCP - General INTERNAL MEDICINE 01/02/21 Nathan Baig MD 3 [facility] [place] [address] [place] [address] Consulting Physician Internal Medicine Pulmonary Disease 09/16/21 documented as of this encounter
--- OUTSIDE RECORDS SUMMARY | 2024-09-07 05:23 | XMS_ITS | Encounter Summary ---
Author Organization [facility] Address [address] [place] [address]. [place] [id number] [place], [place] [id number] Care Team Providers Care Gas Engine Operator Generators Name Role Phone Tracy Olivares MD Primary Care Provider [phone] Nathan Baig MD Unavailable [phone] Reason for Visit * Reason Comments Pain Hip/ Limb * Physical Medicine (Routine) - Pending Review Specialty Diagnoses / Procedures Referred By Heidi iverson Referred To Contact PHYSICAL THERAPY / [facility] Physical Therapy Diagnoses Hip pain, bilateral Bilateral shoulder pain Procedures OFFICE/OUTPATIENT NEW LOW MDM 30-44 MINUTES OFFICE/OUTPT VISIT,NEW,LEVL IV OFFICE/OUTPT VISIT,NEW,LEVL V OFFICE/OUTPT VISIT,EST,LEVL III OFFICE/OUTPT VISIT,EST,LEVL IV OFFICE/OUTPT VISIT,EST,LEVL V Tracy Olivares MD [address] [address] Phone: tel: fax: [facility] Physical Therapy [address] [place] [address] Phone: tel: fax: Referral ID Status Reason Start Date Expiration Date Visits Requested Visits Authorized [id number] Pending Review Physical Therapy 12/16/2023 01/14/2025 12 12 Encounter Details Date Type Department Care Team (Late st Contact Info) Description 02/27/2024 9:30 AM CDT Office Visit [facility] Physical Therapy 1188 [facility] [address] [place] [address] Tracy Olivares MD 1188 [facility] [address] [place], [place] [address] Ashley Wright, PT 1 [place] [address] Pain Hip/ Limb Social History Tobacco Use [...] Progress Notes * Ashleynicanor Wright, PT - 02/27/2024 9:30 AM CDT Physical Therapy Visit Note: Patient Name: Keegan Amaya Diagnosis: Chronic shoulder pain (primary encounter diagnosis) Hip pain Oa (osteoarthritis) of shoulder Shoulder tendonitis Start Time: 0932 End Time: 1015 Treatment Day: 4 Total Approved Visits: 12 per insurance auth [...] and sister Hand Dominance: Right Current HEP: [id number] SUBJECTIVE Pt continues to have intense pain, worst at night. She saw PCP last week, who gave her an injectioninto hip and shoulder. This helped her sleep temporarily but doesn't seem to be lasting more than afew days. MRI ordered but not scheduled yet. Breathing exercises do seem to be helping. Compliance to Home Program: some Functional changes since last visit: minimal Reported Falls since last visit: denies Medications changes since last visit: Increased dose of gabapentin, discontinued celebrex, started hydrocodone and meloxicam, which does seem to be helping her sleep OBJECTIVE Treatment provided today: Therapeutic Exercise - 47184 Number of Minutes - 29732: 29 Exercise: NuStep level 6 x5 min (seat at 12, arms at 13) Exercise: Sidestepping in // bars 2 laps x2 Exercise: Standing hip abduction on floor 2x8 bilaterally Exercise: Standing with lean on elevated mat 2x8 hip extension bilaterally Exercise: Sitting LAQ without resistance x10 bilaterally Done to improve lower extremity strength and endurance Neuromuscular Re-education - 15965 Number of Minutes - 70257: held today Intervention: Supine and sitting diaphragmatic breathing. Attempted to use 5lb ankle weight on abdomen for tactile cue, although this was not effective Done to facilitate diaphragmatic movement of exercise Therapeutic Activities - 68369 Number of Minutes - 42847: 4 Intervention: Standing mini squats on floor 2x10 low ROM Intervention: held Bed mobility training from supine <--> sit and sit <--> stand with use of exhale during exertion to improve ease of bed mobility at home and decrease muscle tone/guarding. Intervention: held Practice making bed with breathing Intervention: held Sit to stand practice with breathing Self Care - 14088 Number of Minutes - 52504: 10 Education consisted of reinforcement of previous education, including use of diaphragmatic breathing for stress management and for implementation of functional tasks related to dressing and householdchores. Energy conservation also discussed. ASSESSMENT Focus of treatment shifted to more physical activity with continued reinforcement of previously discussed education. Pt able to particpate fully, although required multiple rest breaks due to fatigue. Pt continues to demonstrate impaired shoulder A/PROM, [...] able next visit. Total Time in Minutes: 43 Timed Code Treatment Minutes: 43 documented in this encounter Plan of Treatment Upcoming Encounters Date Type Department Care Team (Late st Contact Info) Description 10/03/2024 11:00 AM FILE CLERK Office Visit [facility] Medical [facility] Pulmonology Specialty Clinic - [address] [address] Nathan Baig MD [address] [address] 11/14/2024 10:20 AM FILE CLERK Office Visit [facility] Multispecialty Care - [place] [address] [address] [place] [address] Tracy Olivares MD [address] [place] [address] documented as of this encounter Visit Diagnoses Diagnosis Chronic shoulder pain- Primary Pain in joint, shoulder region Hip pain Pain in joint, pelvic region and thigh OA (osteoarthritis) of shoulder Shoulder tendonitis documented in this encounter Additional Health Concerns Assessment Noted Time PHQ-9 Depression Total Score: 2 09/14/19 24 11:30 AM FILE CLERK documented as of this encounter Care Teams Gas Engine Operator Generators Relationship Specialty Start Date End Date Tracy Olivares MD [address] [place] [address] PCP - General INTERNAL MEDICINE 01/02/21 Nathan Baig MD 3 [facility] [address] [place] [address] Consulting Physician Internal Medicine Pulmonary Disease 09/16/21 documented as of this encounter
--- OUTSIDE RECORDS SUMMARY | 2024-09-07 05:24 | XMS_ITS | Encounter Summary ---
Author Organization [facility] Address [address] [place] [address]. [place], [place] [address] [place] [address] Care Team Providers Care Brewing Technician Name Role Phone Tracy Olivares MD Primary Care Provider [phone] Nathan Baig MD Unavailable [phone] Encounter Details Date Type Department Care Team (Latest Contact Info) Description 10/29/2022 Travel Social History Tobacco Use Types Packs/Day Years Used Date Smoking Tobacco: Former Cigarettes 1.5 30 0 09/12/1954 - 09/12/1984 Smokeless Tobacco: Never Comments:counseled by Dr Carmenza lu Alcohol Use Standard Drinks/Week Comments Not Currently 0 (1 standard drink = 0.6 oz pur e alcohol) PHQ-2 Answer Date Recorded PHQ-2 Score - If the patient scores above 3, please move on to questions 3-9 2 01/05/2022 Comments No Sex and Gender Information Value Date Recorded Sex Assigned at Not on file Legal Sex Female 8:25 PM CDT Gender Identity Not on file Sexual Orientation Not on file COVID-19 Exposure Response Date Recorded In the last 10 days, have yo u been in contact with someone who was confirmed or suspected to have Coronavirus/COVID-19? No / Unsure 10/29/2022 9:44 AM EDITORIAL SPECIALIST documented as of this encounter Plan of Treatment Upcoming Encounters Date Type Department Care Team (Late st Contact Info) Description 10/03/2024 11:00 AM EDITORIAL SPECIALIST Office Visit [facility] Pulmonology Specialty Clinic - [address] [place] [address] Nathan Baig MD 3 [facility] [address] [place] [address] 11/14/2024 10:20 AM EDITORIAL SPECIALIST Office Visit [facility] Multispecialty Care - [place] [address] [address] [place] [address] Tracy Olivares MD [facility] [address] [address] documented as of this encounter Visit Diagnoses Not on filedocumented in this encounter Additional Health Concerns Assessment Noted Time PHQ-9 Depression Total Score: 5 01/06/20 10:48 AM CDT documented as of this encounter Care Teams Brewing Technician Relationship Specialty Start Date End Date Tracy Olivares MD [address] [place] [address] PCP - General INTERNAL MEDICINE 01/02/21 Nathan Baig MD 3 [facility] [address] [place] [address] Consulting Physician Internal Medicine Pulmonary Disease 09/16/21 documented as of this encounter
--- OUTSIDE RECORDS SUMMARY | 2024-09-07 05:24 | XMS_ITS | Encounter Summary ---
Author Organization [facility] Address [address] [place] [address]. [place], [place] [address] [place] [address] Care Team Providers Care Micro Lab Analyst Name Role Phone Tracy Olivares MD Primary Care Provider [phone] Nathan Baig MD Unavailable [phone] Encounter Details Date Type Department Care Team (Latest Contact Info) Description 01/07/2023 Travel Social History Tobacco Use Types Packs/Day [...] suspected to have Coronavirus/COVID-19? No / Unsure 01/07/2023 10:56 AM CDT documented as of this encounter Plan of Treatment Upcoming Encounters Date Type Department Care Team (Late st Contact Info) Description 10/03/2024 11:00 AM GARBAGE PICK UP WORKER Office Visit [facility] Pulmonology Specialty Clinic - [address] [place] [address] Nathan Baig MD [address] [address] 11/14/2024 10:20 AM GARBAGE PICK UP WORKER Office Visit [facility] Medical Group Multispecialty Care - [place] [address] [address] [place] [address] Tracy Olivares MD [address] [address] documented as of this encounter Visit Diagnoses Not on filedocumented in this encounter Additional Health Concerns Assessment Noted Time PHQ-9 Depression Total Score: 11 01/07/ 023 1:30 PM CDT documented as of this encounter Care Teams Micro Lab Analyst Relationship Specialty Start Date End Date Tracy Olivares MD [address] [place] [address] PCP - General INTERNAL MEDICINE 01/02/21 Nathan Baig MD [address] [facility] [address] [place] [address] Consulting Physician Internal Medicine Pulmonary Disease 09/16/21 documented as of this encounter
--- OUTSIDE RECORDS SUMMARY | 2024-09-07 05:24 | XMS_ITS | Encounter Summary ---
Author Organization [facility] Address [address] [place] [address]. [place], [place] [address] [place] [address] Care Team Providers Care Program Coordinator Name Role Phone Tracy Olivares MD Primary Care Provider [phone] Nathan Baig MD Unavailable [phone] Encounter Details Date Type Department Care Team (Latest Contact Info) Description 09/22/2022 Scan HEALTH INFO SRVCS Scanned, Doc Med [...] suspected to have Coronavirus/COVID-19? No / Unsure 09/01/2022 9:22 AM FIRE CONTROL MECHANIC documented as of this encounter Plan of Treatment Upcoming Encounters Date Type Department Care Team ( Contact Info) Description 10/03/2024 11:00 AM FIRE CONTROL MECHANIC Office Visit [facility] Pulmonology Specialty Clinic - [address] [place] [address] Nathan Baig MD [address] [address] 11/14/2024 10:20 AM FIRE CONTROL MECHANIC Office Visit [facility] Group Multispecialty Care - [place] [address] [address] [place] [address] Tracy Olivares MD [address] [place] [address] documented as of this encounter Visit Diagnoses Not on filedocumented in this encounter Additional Health Concerns Assessment Noted Time PHQ-9 Depression Total Score: 5 01/06/20 10:48 AM CDT documented as of this encounter Care Teams Program Coordinator Relationship Specialty Start Date End Date Tracy Olivares MD [address] [place] [address] PCP - General INTERNAL MEDICINE 01/02/21 Nathan Baig MD [address] [address] Consulting Physician Internal Medicine Pulmonary Disease 09/16/21 documented as of this encounter
--- OUTSIDE RECORDS SUMMARY | 2024-09-07 05:24 | XMS_ITS | Encounter Summary ---
Author Organization [facility] Address [address] [place] [address]. [employer], [place] [address] [place] [address] Care Team Providers Care Medical Record Transcriber Name Role Phone Tracy Olivares MD Primary Care Provider [phone] Nathan Baig MD Unavailable [phone] Encounter Details Date Type Department Care Team (Latest Contact Info) Description 02/02/2023 Scan HEALTH INFO SRVCS Scanned, Doc Med [...] st Contact Info) Description 10/03/2024 11:00 AM SOFTWARE REVERSE ENGINEER Office Visit [facility] Pulmonology Specialty Clinic - [address] [place] [address] Nathan Baig MD 3 [facility] [address] [place] [address] 11/14/2024 10:20 AM SOFTWARE REVERSE ENGINEER Office Visit [facility] Multispecialty Care - [place] [address] [address] [place] [address] Tracy Olivares MD [address] [address] documented as of this encounter Procedures Procedure Name Priority Date/Time Associated Diagnosis Comments MAMMOGRAM GENERIC (SCAN ORDER) 02/02/2023 documented in this encounter Results * MAMMOGRAM GENERIC (02/02/2023) Anatomical Region Laterality Modality Other 02/02/2023 us Doc Med Group Scanned SCANNING Final Resu lt documented in this encounter Visit Diagnoses Not on filedocumented in this encounter Additional Health Concerns Assessment Noted Time PHQ-9 Depression Total Score: 11 01/07/ 023 1:30 PM CDT documented as of this encounter Care Teams Medical Record Transcriber Relationship Specialty Start Date End Date Tracy Olivares MD [address] [address] PCP - General INTERNAL MEDICINE 01/02/21 Nathan Baig MD 3 [facility] [address] [place] [address] Consulting Physician Internal Medicine Pulmonary Disease 09/16/21 documented as of this encounter
--- OUTSIDE RECORDS SUMMARY | 2024-09-07 05:24 | XMS_ITS | Encounter Summary ---
Author Organization [facility] Address [address] [place] [address]. [place], [place] [address] [place] [address] Care Team Providers Care Cask Maker Name Role Phone Tracy Olivares MD Primary Care Provider [phone] Nathan Baig MD Unavailable [phone] Encounter Details Date Type Department Care Team (Latest Contact Info) Description 01/12/2023 Scan HEALTH INFO SRVCS Scanned, Doc Med [...] st Contact Info) Description 10/03/2024 11:00 AM STITCHER HAND Office Visit [facility] Medical Group Pulmonology Specialty Clinic - [address] [place], [place] [address] Nathan Baig MD 3 [facility] [address] [place] [address] 11/14/2024 10:20 AM STITCHER HAND Office Visit [facility] Medical Group Multispecialty Care - [place] [address] [address] [place] [address] Tracy Olivares MD [address] [place] [address] documented as of this encounter Visit Diagnoses Not on filedocumented in this encounter Additional Health Concerns Assessment Noted Time PHQ-9 Depression Total Score: 11 023 1:30 PM CDT documented as of this encounter Care Teams Cask Maker Relationship Specialty Start Date End Date Tracy Olivares MD [address] [place] [address] PCP - General INTERNAL MEDICINE 01/02/21 Nathan Baig MD 3 [facility] [address] [place] [address] Consulting Physician Internal Medicine Pulmonary Disease 09/16/21 documented as of this encounter
--- OUTSIDE RECORDS SUMMARY | 2024-09-07 05:24 | XMS_ITS | Encounter Summary ---
Author Organization [facility] Address [address] [place] [address]. [place], [place] [address] [place] [address] Care Team Providers Care Mail Carrier Technician Name Role Phone Tracy Olivares MD Primary Care Provider [phone] Nathan Baig MD Unavailable [phone] Marisel Mancini RN Unavailable [phone] Encounter Details Date Type Department Care Team (Late Contact Info) Description 01/11/2023 [employer] Message Enc [facility] Medical Group Multispecialty Care - [address] [place] [address] [employer], [facility] Provider lab results Social History Tobacco Use Types Packs/Day [...] (Late Contact Info) Description 10/03/2024 11:00 AM INSTRUMENTATION INSTRUCTOR Office Visit [facility] Pulmonology Specialty Clinic - [address] [address] Nathan Baig MD [address] [address] 11/14/2024 10:20 AM INSTRUMENTATION INSTRUCTOR Office Visit [facility] Multispecialty Care - [place] [address] [address] [place] [address] Tracy Olivares MD [address] [place] [address] documented as of this encounter Visit Diagnoses Not on filedocumented in this encounter Additional Health Concerns Assessment Noted Time PHQ-9 Depression Total Score: 11 01/07/ 023 1:30 PM CDT documented as of this encounter Care Teams Mail Carrier Technician Relationship Specialty Start Date End Date Tracy Olivares MD [address] [place] [address] PCP - General INTERNAL MEDICINE 01/02/21 Nathan Baig MD [address] [address] Consulting Physician Internal Medicine Pulmonary Disease 09/16/21 Marisel Mancini, RN [address] [place] [address] Bottle Gauger (Ambulatory) REGISTERED NURSE 06/28/24 08/07/24 documented as of this encounter
--- OUTSIDE RECORDS SUMMARY | 2024-09-07 05:24 | XMS_ITS | Encounter Summary ---
Author Organization [facility] Address [address] [place] [address]. [place], [place] [address] [place] [address] Care Team Providers Care Adjunct Political Science Instructor Name Role Phone rTacy Olivares MD Primary Care Provider [phone] Nathan Baig MD Unavailable [phone] Marisel Mancini RN Unavailable [phone] Encounter Details Date Type Department Care Team (Late Contact Info) Description 02/08/2023 [employer] Message Enc [facility] Medical Group Multispecialty Care - [address] [place] [address] Panteak[place]or, [facility] Provider Mammogram results Social History Tobacco Use Types Packs/Day [...] suspected to have Coronavirus/COVID-19? No / Unsure 01/24/2023 10:26 AM CDT documented as of this encounter Plan of Treatment Upcoming Encounters Date Type Department Care Team (Late Contact Info) Description 10/03/2024 11:00 AM REHAB SERVICES AIDE Office Visit [facility] Medical [facility] Pulmonology Specialty Clinic - [address] [address] Nathan Baig MD [address] [address] 11/14/2024 10:20 AM REHAB SERVICES AIDE Office Visit [facility] Multispecialty Care - [place] [address] [address] [place] [address] Tracy Olivares MD [address] [place] [address] documented as of this encounter Visit Diagnoses Not on filedocumented in this encounter Additional Health Concerns Assessment Noted Time PHQ-9 Depression Total Score: 11 01/07/ 023 1:30 PM CDT documented as of this encounter Care Teams Adjunct Political Science Instructor Relationship Specialty Start Date End Date Tracy Olivares MD [address] [place] [address] PCP - General INTERNAL MEDICINE 01/02/21 Nathan Baig MD [address] [address] Consulting Physician Internal Medicine Pulmonary Disease 09/16/21 Marisel Mancini, RN [address] [place] [address] Picker/Puller (Ambulatory) REGISTERED NURSE 06/28/24 08/07/24 documented as of this encounter
--- OUTSIDE RECORDS SUMMARY | 2024-09-07 05:24 | XMS_ITS | Encounter Summary ---
Author Organization [facility] Address [address] [place] [address]. [place], [place] [address] [place] [address] Care Team Providers Care Intermediate Project Manager Name Role Phone Tracy Olivares MD Primary Care Provider [phone] Nathan Baig MD Unavailable [phone] Encounter Details Date Type Department Care Team (Latest Contact Info) Description 07/02/2022 Travel Social History Tobacco Use Types Packs/Day [...] suspected to have Coronavirus/COVID-19? No / Unsure 07/02/2022 8:52 AM CDT documented as of this encounter Plan of Treatment Upcoming Encounters Date Type Department Care Team (Late st Contact Info) Description 10/03/2024 11:00 AM STORE TEAM LEADER Office Visit [facility] Medical [facility] Pulmonology Specialty Clinic - [address] [place], [place] [address] Nathan Baig MD 3 [facility] [address] [place] [address] 11/14/2024 10:20 AM STORE TEAM LEADER Office Visit [facility] Medical Group Multispecialty Care - [place] [address] [address] [place] [address] Tracy Olivares MD [facility] [address] [address] documented as of this encounter Visit Diagnoses Not on filedocumented in this encounter Additional Health Concerns Assessment Noted Time PHQ-9 Depression Total Score: 5 01/06/20 10:48 AM CDT documented as of this encounter Care Teams Intermediate Project Manager Relationship Specialty Start Date End Date Tracy Olivares MD [address] [place] [address] PCP - General INTERNAL MEDICINE 01/02/21 Nathan Baig MD 3 [facility] [address] [place] [address] Consulting Physician Internal Medicine Pulmonary Disease 09/16/21 documented as of this encounter
--- OUTSIDE RECORDS SUMMARY | 2024-09-07 05:24 | XMS_ITS | Encounter Summary ---
Author Organization [facility] Address [address] [place] [address]. [place], [place] [address] [place] [address] Care Team Providers Care Rescue Worker Name Role Phone Tracy Olivares MD Primary Care Provider [phone] Nahtan Baig MD Unavailable [phone] Reason for Visit * Reason Comments Sleep Study (SCAN) Encounter Details Date Type Department Care Team ([facility] Contact Info) Description 10/27/2022 Scan HEALTH INFO SRVCS Scanned, Doc Med [...] Coronavirus/COVID-19? No / Unsure 10/29/2022 9:44 AM SORTING LIVESTOCK WORKER documented as of this encounter Plan of Treatment Upcoming Encounters Date Type Department Care Team ([facility] Contact Info) Description 10/03/2024 11:00 AM SORTING LIVESTOCK WORKER Office Visit [facility] Pulmonology Specialty Clinic - [address] [address] Nathan Baig MD 3 [facility] [address] [place] [address] 11/14/2024 10:20 AM SORTING LIVESTOCK WORKER Office Visit [facility] Medical Group Multispecialty Care - [place] [address] [address] [place] [address] Tracy Olivares MD [address] [address] documented as of this encounter Procedures Procedure Name Priority Date/Time Associated Diagnosis Comments SLEEP STUDY GENERIC (SCAN ORDER) 10/27/2022 documented in this encounter Results * SLEEP STUDY GENERIC (10/27/2022) 10/27/2022 us Doc Med Group Scanned SCANNING Final Resu lt documented in this encounter Visit Diagnoses Not on filedocumented in this encounter Additional Health Concerns Assessment Noted Time PHQ-9 Depression Total Score: 5 01/06/20 10:48 AM CDT documented as of this encounter Care Teams Rescue Worker Relationship Specialty Start Date End Date Tracy Olivares MD [address] [place] [address] PCP - General INTERNAL MEDICINE 01/02/21 Nathan Baig MD 3 [facility] [address] [place] [address] Consulting Physician Internal Medicine Pulmonary Disease 09/16/21 documented as of this encounter
--- OUTSIDE RECORDS SUMMARY | 2024-09-07 05:24 | XMS_ITS | Encounter Summary ---
Author Organization [facility] Address [address] [place] [address]. [place], [place] [address] [place] [address] Care Team Providers Care Beer Cooler Name Role Phone Tracy Olivares MD Primary Care Provider [phone] Nathan Baig MD Unavailable [phone] Reason for Visit * Reason Comments Obstructive Sleep Apnea Has CPAP; not us ed it in over 2 months; stated that she gets sinus issues while using it; using chinstrap now by itself * Consultation/Treatment (Routine) - Closed Specialty Diagnoses / Procedures Referred By Contac t Referred To Contact Internal Medicine Pulmonary Disease / SLEEP & RESPIRATORY CARE Diagnoses FOLLOW UP Tracy Olivares MD [address] [place] [address] Phone: tel: fax: Nathan Baig MD [address] [address] Phone: tel: fax: Referral ID Status Reason Start Date Expiration Date V isits Requested Visits Authorized [id number] Closed Specialty Services 04/23/2022 04/23/2024 100 100 Encounter Details Date Type Department Care Team (Late st Contact Info) Description 10/29/2022 10:00 AM MEDICARE BILLER Office Visit [facility] Pulmonology Specialty Clinic - [address] [address] Nathan Baig MD [address] [employer] [address] Obstructive Sleep Apnea (Has CPAP; not used it in over 2 months; stated that she gets sinus issues while using it; using chinstrap now by itself ) Social History Tobacco Use Types Packs/Day [...] Recorded In the last 10 days, have lucita u been in contact with someone who was confirmed or suspected to have Coronavirus/COVID-19? No / Unsure 10/29/2022 9:44 AM MEDICARE BILLER documented as of this encounter Last Filed Vital Signs Vital Sign Reading Time Taken Comments Blood Pressure 118/75 10/29/2022 9:46 AM MEDICARE BILLER Pulse 74 10/29/2022 9:46 AM MEDICARE BILLER Temperature 36.4 ??C (97.5 ??F) 10/29/2022 9:46 AM CS T Respiratory Rate 16 10/29/2022 9:46 AM MEDICARE BILLER Oxygen Saturation 100% 10/29/2022 9:46 AM MEDICARE BILLER Inhaled Oxygen Concentration - - Weight 128.8 kg (284 lb) 10/29/2022 9:46 AM MEDICARE BILLER Height 161.3 cm (5' 3.5 ) 10/29/2022 9:46 AM MEDICARE BILLER Body Mass Index 49.52 10/29/2022 9:46 AM MEDICARE BILLER documented in this encounter Progress Notes * Nathan Baig MD - 10/29/2022 10:00 AM CST She is [facility] PULMONARY MEDICINE History Chief Complaint Patient presents with ??? Obstructive Sleep Apnea Has CPAP; not used it in over 2 months; stated that she gets sinus issues while using it; using chinstrap now by itself Referring provider: Tracy Olivares MD 10/29/2022 OV: She did stop using her [...] issue. 05/22/2021 OV: Keegan Amaya is a 67-year-old female with a past medical history of [...] at home. Past Medical History: Diagnosis Date ??? Anxiety ??? Cataract ??? Chronic low back pain ??? COPD (chronic obstructive pulmonary disease) (CMS/HCC) ??? Depression ??? Diabetes mellitus (CMS/HCC) ??? GERD (gastroesophageal reflux disease) ??? Glaucoma ??? Hearing loss left ear ??? Hypertension ??? Impaired glucose tolerance ??? Obese ??? FAISAL on CPAP ??? Shoulder pain Past Surgical History: Procedure Laterality Date ??? CHOLECYSTECTOMY ??? HAND SURGERY both hands ??? HYSTERECTOMY Social History Tobacco Use ??? Smoking status: Former Packs/day: 1.50 Years: 30.00 Pack years: 45.00 Types: Cigarettes Quit date: 09/12/1984 Years since quittin.1 ??? Smokeless tobacco: Never ??? Tobacco comments: counseled by Dr Olivares Vaping Use ??? Vaping Use: Never used Substance Use Topics ??? Alcohol use: Not Currently ??? Drug use: Not Currently Family History Problem Relation Name Age of Onset ??? Diabetes Mother ??? Cancer Father prostate, lymph node ??? Prostate Cancer Father ??? Hyperlipidemia Sister ??? Hypertension Sister ??? Other (diabetes) Sister ??? Other (stomach issues) Brother ??? Other (diverticular) Brother ??? Diabetes Maternal Grandmother ??? Diabetes Paternal Grandmother ??? Glaucoma Paternal Grandmother Current Outpatient Medications Medication Sig Dispense Refill ??? albuterol sulfate HFA 108 (90 Base) MCG/ACT inhaler Inhale 2 puffs into the lungs every 4 (four) hours as needed. 18 g 5 ??? aspirin 81 MG tablet Take 81 mg by mouth daily. ??? atorvastatin (LIPITOR) 20 MG tablet Take 1 tablet (20 mg total) by mouth nightly at bedtime. atbedtime 90 tablet 1 ??? cetirizine (ZYRTEC) 10 MG tablet Take 1 tablet (10 mg total) by mouth daily. 90 tablet 3 ??? escitalopram (LEXAPRO) 10 MG tablet Take 1 tablet (10 mg total) by mouth daily. 90 tablet 2 ??? Ynfyhzmbfau-Qswipkscm-Znxsiu (TRELEGY ELLIPTA) 100-62.5-25 MCG/ACT AEROSOL POWDER, BREATH ACTIVATED Inhale 1 puff into the lungs daily. 180 each 3 ??? gabapentin (NEURONTIN) 100 MG capsule Take 200 mg in the morning, 200 mg in the afternoon and 300 mg at bedtime 180 capsule 1 ??? losartan-hydroCHLOROthiazide 100-12.5 MG Tab Take 1 tablet by mouth daily. 90 tablet 3 ??? ONETOUCH VERIO test strip ??? pantoprazole EC (PROTONIX) 40 MG tablet pantoprazole 40 mg tablet,delayed release TAKE 1 TABLET BY MOUTH EVERY DAY IN THE MORNING ??? phentermine (ADIPEX-P) 37.5 MG tablet phentermine 37.5 mg tablet TAKE 1 TABLET BY MOUTH EVERY MORNING BEFORE BREAKFAST FOR 30 DAYS. ??? semaglutide (OZEMPIC) 1 mg/dose injection (PEN) Ozempic 1 mg/dose (4 mg/3 mL) subcutaneous pen injector INJECT 1 MG INTO THE SKIN WEEKLY. ??? semaglutide (OZEMPIC) 2 MG/1.5ML injection (PEN) Ozempic 0.25 mg or 0.5 mg (2 mg/1.5 mL) subcutaneous pen injector INJECT 0.5 MG INTO THE SKIN EVERY 7 DAYS. ??? SITagliptin (JANUVIA) 100 MG tablet Take 1 tablet (100 mg total) by mouth daily. 90 tablet 2 ??? tiZANidine 4 MG tablet Take 0.5 tablets (2 mg total) by mouth nightly at bedtime. at bedtime 90tablet 1 ??? traMADol (ULTRAM) 50 MG tablet Take 1 tablet (50 mg total) by mouth 2 (two) times daily as needed for Pain. Indications: Chronic Pain 60 tablet 0 ??? Vitamin D, Cholecalciferol, 50 MCG (2000 UT) Cap Take 1,000 Units by mouth daily. 30 capsule ??? AZELASTINE 137 MCG/SPRAY nasal spray Please specify directions, refills and quantity (Patient not taking: Reported on 10/29/2022) 30 mL 0 ??? ciclopirox (PENLAC) 8 % solution APPLY 1 APPLICATION ON THE SKIN EVERY DAY (Patient not taking:Reported on 10/29/2022) ??? diphenhydrAMINE-zinc (BENADRYL EXTRA STRENGTH) 2-0.1 % Cream cream Use twice daily on skin to help with itching. (Patient not taking: Reported on 10/29/2022) 28 g 1 ??? esomeprazole (NEXIUM) 40 MG capsule TAKE 1 CAPSULE BY MOUTH EVERY DAY FOR 1 MONTH (Patient not taking: Reported on 10/29/2022) ??? famotidine (PEPCID) 20 MG tablet TAKE 1 TABLET BY MOUTH TWICE A DAY FOR 1 MONTH (Patient not taking: Reported on 10/29/2022) ??? fluticasone propionate (FLONASE) 50 MCG/ACT nasal spray 2 sprays by Nasal route daily. (Patientnot taking: Reported on 10/29/2022) 16 g 5 ??? meclizine 12.5 MG tablet Take 1 tablet (12.5 mg total) by mouth nightly as needed. (Patient nottaking: Reported on 10/29/2022) 20 tablet 0 No current facility-administered medications for this visit. Allergies Allergen Reactions ??? Propoxyphene Unknown Immunization History Administered Date(s) Administered ??? Flucelvax 6 Months+ (Prefilled Syringe) 06/05/2019 ? ? Fluzone High Dose - >Age 65 (Prefilled Syringe) 06/08/2021, 06/16/2022 ??? Influenza 06/12/2013, 06/07/2014 ??? Influenza Adult (Generic) 06/12/2013, 06/07/2014, 06/10/2015, 05/17/2016, 05/20/2017, 06/05/2018, 05/28/2020, 07/01/2020 ??? PFIZER COVID-19 (FENTON CAP), MRNA, LNP-S, PF, 30 MCG/0.3 ML ERIK-SUCROSE, IM 04/28/2022 ??? PFIZER COVID-19 (ORIGINAL FORMULATION, PURPLE CAP), MRNA, LNP-S, PF, 30 MCG/0.3 ML DOSE 12/09/2020, 12/30/2020 ??? Pneumococcal (Pneumovax 23) 05/01/2016, 05/17/2016, 03/03/2021 ??? Pneumococcal (Prevnar 13) 04/02/2022 ??? Tdap (Adacel) 07/06/2021 Review of Systems Constitutional: [...] Does not bruise/bleed easily. Psychiatric/Behavioral: Negative for depression, hallucinations and suicidal ideas. Physical Exam Filed Vitals: 10/29/22 0946 BP: 118/75 Pulse: 74 Resp: 16 Temp: 97.5 ??F (36.4 ??C) TempSrc: Temporal SpO2: 100% Weight: 128.8 kg (284 lb) Height: 5' 3.5 (1.613 m) Body mass index is 49.52 kg/m??. Physical Exam: General: Alert, pleasant, in NAD Neuro: Alert, appropriate Psych: Affect normal Head: NC, AT EENT: No Sinus tenderness to palpation, mallampati 4 Neck: Supple Lymph: No appreciable cervical lymphadenopathy Respiratory: Clear breath sounds bilaterally without wheezing or crackles Cardiovascular: s1,s2, rrr, no audible murmur GI: [...] at 9 cm H2O. AHI 0.2/h Assessment 1. Mild obstructive sleep apnea on CPAP 2. Mild to moderate persistent asthma 3. Tobacco use history 4. Obesity 5. Hypertension Plan -Advised restarting CPAP at a pressure of 9 cm H2O. She will benefit from use. Advised adjusting the humidity settings to see if this helps with the symptoms she feels in her sinuses, she can turn the humidity down or even off -Change of the mask and straps, tubing every 3 to 6 months -Use distilled water - We will again submit orders for her to be able to try different mask -Continue taking Trelegy 100/62.5/25 mcg 1 puff daily, rinse and spit after. Refilled today. - Albuterol can use as needed Return in about 6 months (around 04/28/2023). Nathan Baig MD CARE BILLER documented in this encounter Plan of Treatment Upcoming Encounters Date Type Department Care Team (Late st Contact Info) Description 10/03/2024 11:00 AM MEDICARE BILLER Office Visit [facility] Pulmonology Specialty Clinic - [address] [address] Nathan Baig MD [address] [address] 11/14/2024 10:20 AM MEDICARE BILLER Office Visit [facility] Multispecialty Care - [place] [address] [address] [place] [address] Tracy Olivares MD [address] [address] documented as of this encounter Visit Diagnoses Diagnosis FAISAL on CPAP- Primary Obstructive sleep apnea (adult) (pediatric) Class 3 severe obesity due to excess calories without serious comorbidity with body mass index (BMI) of 45.0 to 49.9 in adult ([facility]) Seasonal allergies Allergic rhinitis, cause unspecified documented in this encounter Additional Health Concerns Assessment Noted Time PHQ-9 Depression Total Score: 5 01/06/20 10:48 AM CDT documented as of this encounter Care Teams Beer Cooler Relationship Specialty Start Date End Date Tracy Olivares MD [address] [place] [address] PCP - General INTERNAL MEDICINE 01/02/21 Nathan Baig MD 3 [facility] [address] [place] [address] Consulting Physician Internal Medicine Pulmonary Disease 09/16/21 documented as of this encounter
--- OUTSIDE RECORDS SUMMARY | 2024-09-07 05:24 | XMS_ITS | Encounter Summary ---
Author Organization [facility] Address [address] [place] [address]. [place] [id number] [place] [address] Care Team Providers Care Bindery Machine Setter/Set Up Operator Name Role Phone Tracy Olivares MD Primary Care Provider [phone] Nathan Baig MD Unavailable [phone] Reason for Visit * Reason Comments Allied Health Visit Patient is here for lab draw Encounter Details Date Type Department Care Team (Latest Contact Info) Description 07/02/2022 9:00 AM CDT Allied Health/Nurse Visit [facility] Medical Group Multispecialty Care - [place] [address] [address] [place] [address] [place] [address] [place] [address] [address] [place] [address] Allied Health Visit (Patient is here for lab draw) Social History Tobacco Use Types Packs/Day Years [...] AM CDT documented as of this encounter Progress Notes * Ilana Ochoa MA - 07/02/2022 9:00 AM CDT Patient is here for a lab draw documented in this encounter Plan of Treatment Upcoming Encounters Date Type Department Care Team (Late st Contact Info) Description 10/03/2024 11:00 AM PREPARATION PLANT SUPERVISOR Office Visit [facility] Medical [facility] Specialty Clinic - [address] [address] Nathan Baig MD [address] [address] 11/14/2024 10:20 AM PREPARATION PLANT SUPERVISOR Office Visit [facility] Multispecialty Care - [place] [address] [address] [place] [address] Tracy Olivares MD [address] [place] [address] documented as of this encounter Procedures Procedure Name Priority Date/Time Associated Diagnosis Comments VENIPUNC ARM DRAW Routine 07/02/2022 9:10 AM CDT Mixed hyperlipidemia documented in this encounter Visit Diagnoses Diagnosis Mixed hyperlipidemia- Primary documented in this encounter Additional Health Concerns Assessment Noted Time PHQ-9 Depression Total Score: 5 01/06/20 22 10:48 AM CDT documented as of this encounter Care Teams Bindery Machine Setter/Set Up Operator Relationship Specialty Start Date End Date Tracy Olivares MD [address] [place] [address] PCP - General INTERNAL MEDICINE 01/02/21 Nathan Baig MD [address] [address] Consulting Physician Internal Medicine Pulmonary Disease 09/16/21 documented as of this encounter
--- OUTSIDE RECORDS SUMMARY | 2024-09-07 05:24 | XMS_ITS | Encounter Summary ---
Author Organization [facility] Address [address] [place] [address]. [place], [place] [address] [place] [address] Care Team Providers Care Solution Consultant Name Role Phone Tracy Olivares MD Primary Care Provider [phone] Nathan Baig MD Unavailable [phone] Reason for Visit * Reason Comments CT (SCAN) Image (SCAN) Lab (SCAN) Encounter Details Date Type Department Care Team ([facility] Contact Info) Description 08/07/2022 Scan HEALTH INFO SRVCS Scanned, Doc Med Group CT (SCAN); Image (SCAN); Lab (SCAN) Social History Tobacco Use Types [...] Upcoming Encounters Date Type Department Care Team ([facility] Contact Info) Description 10/03/2024 11:00 AM AUTOMATIC TYPEWRITER INSPECTOR Office Visit [facility] Medical [facility] Pulmonology Specialty Clinic - [address] [place] [address] Nathan Baig MD [address] [place] [address] [place] [address] 11/14/2024 10:20 AM AUTOMATIC TYPEWRITER INSPECTOR Office Visit [facility] Multispecialty Care - [place] [address] [place] [address] Tracy Olivares MD [address] [facility] [address] [place] [address] documented as of this encounter Procedures Procedure Name Priority Date/Time Associated Diagnosis Comments CT GENERIC 08/07/2022 OUTSIDE LAB (SCAN ORDER) 08/07/2022 OUTSIDE LAB (SCAN ORDER) 08/07/2022 OUTSIDE LAB (SCAN ORDER) 08/07/2022 IMAGE GENERIC 08/07/2022 documented in this encounter Results * OUTSIDE LAB (SCAN) (08/07/2022) 08/07/2022 us Doc Med Group Scanned SCANNING Final Resu lt * OUTSIDE LAB (SCAN) (08/07/2022) 08/07/2022 us [facility] Skin [facility] Scanned SCANNING Final Resu lt * OUTSIDE LAB (SCAN) (08/07/2022) 08/07/2022 us Doc Med Group Scanned SCANNING Final Resu lt * IMAGE GENERIC (08/07/2022) Anatomical Region Laterality Modality Other 08/07/2022 us Doc [facility] Scanned SCANNING Final Resu lt * CT GENERIC (08/07/2022) Anatomical Region Laterality Modality Other 08/07/2022 us Doc [facility] Scanned SCANNING Final Resu lt documented in this encounter Visit Diagnoses Not on filedocumented in this encounter Additional Health Concerns Assessment Noted Time PHQ-9 Depression Total Score: 5 01/06/20 22 10:48 AM CDT documented as of this encounter Care Teams Solution Consultant Relationship Specialty Start Date End Date Tracy Olivares MD [address] [facility] [address] [place] [address] PCP - General INTERNAL MEDICINE 01/02/21 Nathan Baig MD [address] [address] Consulting Physician Internal Medicine Pulmonary Disease 09/16/21 documented as of this encounter
--- OUTSIDE RECORDS SUMMARY | 2024-09-07 05:24 | XMS_ITS | Encounter Summary ---
Author Organization [facility] Address [address] [place] [address]. [place], [place] [address] [place] [address] Care Team Providers Care Emergency Physician Name Role Phone Tracy Olivares MD Primary Care Provider [phone] Nathan Baig MD Unavailable [phone] Encounter Details Date Type Department Care Team (Latest Contact Info) Description 11/02/2022 Scan HEALTH INFO SRVCS Scanned, Doc Med [...] Coronavirus/COVID-19? No / Unsure 10/29/2022 9:44 AM PROTECTOR PLATE ATTACHER documented as of this encounter Plan of Treatment Upcoming Encounters Date Type Department Care Team ( Contact Info) Description 10/03/2024 11:00 AM PROTECTOR PLATE ATTACHER Office Visit [facility] Medical Group Pulmonology Specialty Clinic - [address] [place] [address] Nathan Baig MD [address] [address] 11/14/2024 10:20 AM PROTECTOR PLATE ATTACHER Office Visit [facility] Medical Group Multispecialty Care - [place] [address] [address] [place] [address] Tracy Olivares MD [address] [place] [address] documented as of this encounter Visit Diagnoses Not on filedocumented in this encounter Additional Health Concerns Assessment Noted Time PHQ-9 Depression Total Score: 5 01/06/20 10:48 AM CDT documented as of this encounter Care Teams Emergency Physician Relationship Specialty Start Date End Date Tracy Olivares MD [address] [place] [address] PCP - General INTERNAL MEDICINE 01/02/21 Nathan Baig MD [address] [address] Consulting Physician Internal Medicine Pulmonary Disease 09/16/21 documented as of this encounter
--- OUTSIDE RECORDS SUMMARY | 2024-09-07 05:24 | XMS_ITS | Encounter Summary ---
Author Organization [facility] Address [address] [place] [address]. [place], [place] [address] [place] [address] Care Team Providers Care Principal Systems Architect Name Role Phone Tracy Olivares MD Primary Care Provider Nathan Baig MD Unavailable [phone] Reason for Visit * Reason Onset Date Comments Referral 02/09/2023 Encounter Details Date Type Department Care Team (Late st Contact Info) Description 02/09/2023 Telephone [facility] Medical Group Multispecialty Care - [place] [address] [place] [address] [address] [place] [address] [place] [address] [place] [address] [address] [place] [address] Referral Social History Tobacco Use [...] Progress Notes * Tracy Olivares MD - 02/09/2023 11:55 PM CDT I received patient diabetic eye exam done on 02/02/2023- no diabetic retinopathy- scanned. documented in this encounter Plan of Treatment Upcoming Encounters Date Type Department Care Team (Late st Contact Info) Description 10/03/2024 11:00 AM STEAM POWER PLANT OPERATOR Office Visit [facility] Medical [facility] Pulmonology Specialty Clinic - [address] [address] Nathan Baig MD [address] [address] 11/14/2024 10:20 AM STEAM POWER PLANT OPERATOR Office Visit [facility] Multispecialty Care - [place] [address] [address] [place] [address] Tracy Olivares MD [address] [address] documented as of this encounter Visit Diagnoses Not on filedocumented in this encounter Additional Health Concerns Assessment Noted Time PHQ-9 Depression Total Score: 11 01/07/ 023 1:30 PM CDT documented as of this encounter Care Teams Principal Systems Architect Relationship Specialty Start Date End Date Tracy Olivares MD [address] [place] [address] PCP - General INTERNAL MEDICINE 01/02/21 Nathan Baig MD [address] [address] Consulting Physician Internal Medicine Pulmonary Disease 09/16/21 documented as of this encounter
--- OUTSIDE RECORDS SUMMARY | 2024-09-07 05:24 | XMS_ITS | Encounter Summary ---
Author Organization [facility] Address [address] [place] [address]. [place], [place] [address] [place] [address] Care Team Providers Care Outdoor Illuminating Engineer Name Role Phone Tracy Olivares MD Primary Care Provider [phone] Nathan Baig MD Unavailable [phone] Encounter Details Date Type Department Care Team (Latest Contact Info) Description 09/01/2022 Travel Social History Tobacco Use Types Packs/Day [...] Coronavirus/COVID-19? No / Unsure 09/01/2022 9:22 AM PANTS CUTTER documented as of this encounter Plan of Treatment Upcoming Encounters Date Type Department Care Team (Late st Contact Info) Description 10/03/2024 11:00 AM PANTS CUTTER Office Visit [facility] Medical Group Pulmonology Specialty Clinic - [address] [place] [address] Nathan Baig MD 3 [facility] [address] [place] [address] 11/14/2024 10:20 AM PANTS CUTTER Office Visit [facility] Medical Group Multispecialty Care - [place] [address] [address] [place] [address] Tracy Olivares MD [facility] [address] documented as of this encounter Visit Diagnoses Not on filedocumented in this encounter Additional Health Concerns Assessment Noted Time PHQ-9 Depression Total Score: 5 01/06/20 10:48 AM CDT documented as of this encounter Care Teams Outdoor Illuminating Engineer Relationship Specialty Start Date End Date Tracy Olivares MD [address] [place] [address] PCP - General INTERNAL MEDICINE 01/02/21 Nathan Baig MD 3 [facility] [address] [place] [address] Consulting Physician Internal Medicine Pulmonary Disease 09/16/21 documented as of this encounter
--- OUTSIDE RECORDS SUMMARY | 2024-09-07 05:24 | XMS_ITS | Encounter Summary ---
Author Organization [facility] Address [address] [place] [address]. [place], [place] [address] [place] [address] Care Team Providers Care Shell Trim Operator Name Role Phone Tracy Olivares MD Primary Care Provider [phone] Nathan Baig MD Unavailable [phone] Encounter Details Date Type Department Care Team (Latest Contact Info) Description 11/30/2022 Travel Social History Tobacco Use Types Packs/Day [...] suspected to have Coronavirus/COVID-19? No / Unsure 11/30/2022 2:02 PM CDT documented as of this encounter Plan of Treatment Upcoming Encounters Date Type Department Care Team (Late st Contact Info) Description 10/03/2024 11:00 AM DIRECTOR PART Office Visit [facility] Pulmonology Specialty Clinic - [address] [place], [place] [address] Nathan Baig MD 3 [facility] [address] [place] [address] 11/14/2024 10:20 AM DIRECTOR PART Office Visit [facility] Multispecialty Care - [place] [address] [address] [place] [address] Tracy Olivares MD [facility] [address] [address] documented as of this encounter Visit Diagnoses Not on filedocumented in this encounter Additional Health Concerns Assessment Noted Time PHQ-9 Depression Total Score: 5 01/06/20 10:48 AM CDT documented as of this encounter Care Teams Shell Trim Operator Relationship Specialty Start Date End Date Tracy Olivares MD [address] [place] [address] PCP - General INTERNAL MEDICINE 01/02/21 Nathan Baig MD 3 [facility] [address] [place] [address] Consulting Physician Internal Medicine Pulmonary Disease 09/16/21 documented as of this encounter
--- OUTSIDE RECORDS SUMMARY | 2024-09-07 05:24 | XMS_ITS | Encounter Summary ---
Author Organization [facility] Address [address] [place] [address]. [place], [place] [address] [place] [address] Care Team Providers Care Insurance Executive Name Role Phone Tracy Olivares MD Primary Care Provider [phone] Nathan Baig MD Unavailable [phone] Encounter Details Date Type Department Care Team (Latest Contact Info) Description 09/15/2022 Scan HEALTH INFO SRVCS Scanned, Doc Med [...] Coronavirus/COVID-19? No / Unsure 09/01/2022 9:22 AM INSPECTOR R[employer] CASTINGS documented as of this encounter Plan of Treatment Upcoming Encounters Date Type Department Care Team ( Contact Info) Description 10/03/2024 11:00 AM INSPECTOR R[employer]STINGS Office Visit [facility] - [address] [place] [address] Nathan Baig MD [address] [address] 11/14/2024 10:20 AM INSPECTOR ROUGH CASTINGS Office Visit [facility] Multispecialty Care - [place] [address] [address] [place] [address] Tracy Olivares MD [address] [place] [address] documented as of this encounter Visit Diagnoses Not on filedocumented in this encounter Additional Health Concerns Assessment Noted Time PHQ-9 Depression Total Score: 5 01/06/20 10:48 AM CDT documented as of this encounter Care Teams Insurance Executive Relationship Specialty Start Date End Date Tracy Olivares MD [address] [place] [address] PCP - General INTERNAL MEDICINE 01/02/21 Nathan Baig MD [address] [address] Consulting Physician Internal Medicine Pulmonary Disease 09/16/21 documented as of this encounter
--- OUTSIDE RECORDS SUMMARY | 2024-09-07 05:24 | XMS_ITS | Encounter Summary ---
Author Organization [facility] Address [address] [place] [address]. [place], [place] [address] [place] [address] Care Team Providers Care Injury Prevention Coordinator Name Role Phone Tracy Olivares MD Primary Care Provider [phone] Nathan Baig MD Unavailable [phone] Reason for Visit * Reason Onset Date Comments Orders 10/29/2022 Encounter Details Date Type Department Care Team (Late st Contact Info) Description 10/29/2022 Telephone [facility] Mult[facility]pecialty Care - [facility] [address] [facility] [address] [place] [phone] Nathan Baig MD 3 [facility] [address] [place] [address] Orders Social History Tobacco Use Types Packs/Day [...] In the last 10 days, have lucita roa been in contact with someone who was confirmed or suspected to have Coronavirus/COVID-19? No / Unsure 10/29/2022 9:44 AM [employer] documented as of this encounter Progress Notes * Lynette Pink MA - 11/02/2022 2:37 PM CST Order and office note faxed to [facility] * Stacy Song CRT - 10/29/2022 10:38 AM CST Patient uses [facility] * Stacy Song CRT - 10/29/2022 10:38 AM CST ----- Message from aNthan Baig MD sent at 10/29/2022 10:02 AM [employer] ----- Regarding: CPAP supplies Send orders, she would like to be able to try a different mask/strap set up. She feels like the current straps are giving her a headache. Nathan Baig MD [employer] [employer] [facility] documented in this encounter Plan of Treatment Upcoming Encounters Date Type Department Care Team (Late st Contact Info) Description 10/03/2024 11:00 AM [employer] Office Visit [facility] - [address] [address] Nathan Baig MD [address] [place] [address] 11/14/2024 10:20 AM [employer] Office Visit [facility]ty Care - [place] [address] [address] [place] [address] Tracy Olivares MD [address] [place] [address] [address] [place] [address] documented as of this encounter Visit Diagnoses Not on filedocumented in this encounter Additional Health Concerns Assessment Noted Time PHQ-9 Depression Total Score: 5 01/06/20 22 10:48 AM CDT documented as of this encounter Care Teams Injury Prevention Coordinator Relationship Specialty Start Date End Date Tracy Olivares MD [address] [facility] [address] [place] [address] PCP - General INTERNAL MEDICINE 01/02/21 Nathan Baig MD [address] [address] Consulting Physician Internal Medicine Pulmonary Disease 09/16/21 documented as of this encounter
--- OUTSIDE RECORDS SUMMARY | 2024-09-07 05:24 | XMS_ITS | Encounter Summary ---
Author Organization [facility] Address [address] [place] [address]. [place] [id number] [place] [address] Care Team Providers Care Line Crew Supervisor Name Role Phone Tracy Olivares MD Primary Care Provider [phone] Nathan Baig MD Unavailable [phone] Reason for Visit * Reason Comments Weight Problem Follow Up Prediabetes, respira tory issues, neuropathy Hypertension Hyperlipidemia Encounter Details Date Type Department Care Team (Latest Contact Info) Description 08/24/2022 10:20 AM HAND TENNIS BALL COVERER Office Visit [facility] Multispecialty Care - [place] [address] [address] [place] [address] Tracy Olivares MD [address] [place] [address] 157 [place] [address] Weight Problem; Follow Up (Prediabetes, respiratory issues, neuropathy); Hypertension; Hyperlipidemia Social History Tobacco Use Types Packs/Day Years [...] Sign Reading Time Taken Comments Blood Pressure 148/83 08/24/2022 11:10 AM HAND TENNIS BALL COVERER Pulse 74 08/24/2022 10:32 AM HAND TENNIS BALL COVERER Temperature 37 ??C (98.6 ??F) 08/24/2022 10:32 AM HAND TENNIS BALL COVERER Respiratory Rate 18 08/24/2022 10:32 AM HAND TENNIS BALL COVERER Oxygen Saturation 99% 08/24/2022 10:32 AM HAND TENNIS BALL COVERER Inhaled Oxygen Concentration - - Weight 127 kg (280 lb) 08/24/2022 10:32 AM HAND TENNIS BALL COVERER Height 161.3 cm (5' 3.5 ) 08/24/2022 10:32 AM CS T Body Mass Index 48.82 08/24/2022 10:32 AM HAND TENNIS BALL COVERER documented in this encounter Patient Instructions * Patient Instructions* Tracy Olivares MD - 08/24/2022 10:20 AM HAND TENNIS BALL COVERER Follow up in 4 months for your next visit around January 05 2023- please come fasting. TENNIS BALL COVERER documented in this encounter Progress Notes * Tracy Olivares MD - 08/24/2022 10:20 AM CSTSummary: Follow up notes Images from the original note were not included. Internal Medicine Outpatient Progress Note CC: Weight Problem, Follow Up (Prediabetes, respiratory issues, neuropathy), Hypertension, and Hyperlipidemia HPI: Keegan Amaya is a 67-year-old female who presents for her weight, hypertension, hyperlipidemia, prediabetes, peripheral neuropathy and medication refill. Patient is also here for follow-up for weight medication i.e. phentermine. ??Patient had expressed interest in initiating weight loss medication. ??This is the fifth visit for phentermine refill however at today's visit, we decided to hold off any weight loss medication as patient has so far been doing well and would like to hold off at time. Weight is down from 283 pounds to 280 pounds. No side effects from the medication with phentermine such as shortness of breath, chest tightness or palpitations. ??No history of weight loss surgery. Previously had been approved for Ozempic however given gastrointestinal side effects patient had to discontinue. She has underlying prediabetes and patient currently on Januvia and has been taking medications as directed. No side effects from current dose of medication patient doing well. Her last refill on phentermine was 8 weeks ago. Patient is also here for follow-up for hyperlipidemia. Currently taking her medications as directed. No side effects from her current dose of medication. Denies any concerns for chest pain at rest orwith activity. Denies any muscle cramping as a result of her current dose of medication. Would likerefills at today's visit. Patient also here for follow-up for peripheral neuropathy. She reports her gabapentin dose currently not as effective as she would like. She is wondering if her dose can be adjusted. She has underlining prediabetes. No recent falls or near falls. She would like refills on her inhalers. Currently notes her symptoms are controlled. Patient's blood pressure is noted to be elevated at today's visit. She tells me she has been takingher medications as directed. She is currently on losartan hydrochlorothiazide 100-12.5 mg daily. Denies any concerns for chest pain at rest or with activity. She has not been on phentermine in a while. Does not routinely check her blood pressures at home. She does not follow with cardiology. Patient has prediabetes currently on Januvia as she cannot tolerate metformin. She has lost about 3 poundssince I last saw her. Currently not actively exercising. Follows a general diet. Problem List Patient Active Problem List Diagnosis ??? Current moderate episode of major depressive disorder (CMS/HCC) ??? Essential hypertension ??? Gastroesophageal reflux disease ??? Hearing loss ??? Impaired glucose tolerance in obese ??? Shoulder pain ??? Chronic low back pain with bilateral sciatica ??? Obesity ??? Lumbar herniated disc ??? FAISAL on CPAP ??? Glaucoma ??? Cataract ??? Anxiety ??? Knee pain ??? Pulmonary emphysema (CMS/HCC) ??? Mixed hyperglyceridemia ??? Prediabetes ??? Other specified anemias ??? RLS (restless legs syndrome) ??? Mixed hyperlipidemia Past Medical History: Diagnosis Date ??? Anxiety [...] ??? HAND SURGERY both hands ??? HYSTERECTOMY Family History Problem Relation Name Age of Onset ??? Diabetes Mother ??? Cancer Father prostate, lymph node ??? Prostate Cancer Father ??? Hyperlipidemia Sister ??? Hypertension Sister ??? Other (diabetes) Sister ??? Other (stomach issues) Brother ??? Other (diverticular) Brother ??? Diabetes Maternal Grandmother ??? Diabetes Paternal Grandmother ??? Glaucoma Paternal Grandmother Social History Tobacco Use ??? Smoking status: Former Packs/day: 1.50 Years: 30.00 Pack years: 45.00 Types: Cigarettes Quit date: 09/12/1984 Years since quittin.9 ??? Smokeless tobacco: Never ??? Tobacco comments: counseled by Dr Olivares Vaping Use ??? Vaping Use: Never used Substance Use Topics ??? Alcohol use: Not Currently ??? Drug use: Not Currently Medications: Outpatient Medications Marked as Taking for the 08/24/22 encounter (Office Visit) with Tracy Olivares MD Medication Sig Dispense Refill ??? albuterol sulfate HFA 108 (90 Base) MCG/ACT inhaler Inhale 2 puffs into the lungs every 4 (four) hours as needed. 18 g 5 ??? aspirin 81 MG tablet Take 81 mg by mouth daily. ??? atorvastatin (LIPITOR) 20 MG tablet Take 1 tablet (20 mg total) by mouth nightly at bedtime. atbedtime 90 tablet 1 ??? AZELASTINE 137 MCG/SPRAY nasal spray Please specify directions, refills and quantity 30 mL 0 ??? Cetirizine HCl (ZYRTEC ALLERGY) 10 MG Cap Take 10 mg by mouth daily. 30 capsule ??? ciclopirox (PENLAC) 8 % solution APPLY 1 APPLICATION ON THE SKIN EVERY DAY ??? diphenhydrAMINE-zinc (BENADRYL EXTRA STRENGTH) 2-0.1 % Cream cream Use twice daily on skin to help with itching. (Patient taking differently: Apply topically 2 (two) times daily as needed for Itching. Use twice daily on skin to help with itching.) 28 g 1 ??? escitalopram (LEXAPRO) 10 MG tablet Take 1 tablet (10 mg total) by mouth daily. 90 tablet 2 ??? esomeprazole (NEXIUM) 40 MG capsule TAKE 1 CAPSULE BY MOUTH EVERY DAY FOR 1 MONTH ??? famotidine (PEPCID) 20 MG tablet TAKE 1 TABLET BY MOUTH TWICE A DAY FOR 1 MONTH ??? fluticasone propionate (FLONASE) 50 MCG/ACT nasal spray 2 sprays by Nasal route daily. 16 g 5 ??? Uhiznkqbjmv-Tucklgste-Wpptzz (TRELEGY ELLIPTA) 100-62.5-25 MCG/ACT AEROSOL POWDER, BREATH ACTIVATED Inhale 1 puff into the lungs daily. 60 each 5 ??? gabapentin (NEURONTIN) 100 MG capsule Take 200 mg in the morning, 200 mg in the afternoon and 300 mg at bedtime 180 capsule 1 ??? losartan-hydroCHLOROthiazide 100-12.5 MG Tab Take 1 tablet by mouth daily. 90 tablet 3 ??? meclizine 12.5 MG tablet Take 1 tablet (12.5 mg total) by mouth nightly as needed. 20 tablet 0 ??? ONETOUCH VERIO test strip ??? SITagliptin (JANUVIA) 100 MG tablet Take [...] Units by mouth daily. 30 capsule Allergies: Allergies Allergen Reactions ??? Propoxyphene Unknown Review of Systems Constitutional: Negative for chills, diaphoresis, fever, malaise/fatigue and weight loss. HENT: Negative. Eyes: Negative. Respiratory: Negative. Cardiovascular: Negative for chest pain, palpitations, orthopnea, claudication, leg swelling and PND. Gastrointestinal: Negative. Genitourinary: Negative. Musculoskeletal: Negative. Skin: Negative. Neurological: Positive for tingling and sensory change. Negative for dizziness, tremors, speech change, focal weakness, seizures, loss of consciousness, weakness and headaches. Objective: Filed Vitals: 08/24/22 1032 08/24/22 1110 BP: (!) 147/83 (!) 148/83 Pulse: 74 Resp: 18 Temp: 98.6 ??F (37 ??C) TempSrc: Temporal SpO2: 99% Weight: 127 kg (280 lb) Height: 5' 3.5 (1.613 m) Body mass index is 48.82 kg/m??. General alert, cooperative, no distress HEENT [...] adenopathy Assessment and Plan: Encounter Diagnose(s) ICD-10-CM ICD-9-CM SNOMED CT(R) 1. Class 3 severe obesity due to excess calories without serious comorbidity with body mass index (BMI) of 50.0 to 59.9 in adult (CMS/HCC) E66.01 278.01 SEVERE OBESITY Z68.43 V85.43 2. Idiopathic peripheral neuropathy G60.9 356.9 IDIOPATHIC PERIPHERAL NEUROPATHY gabapentin (NEURONTIN) 100 MG capsule 3. Essential hypertension I10 401.9 ESSENTIAL HYPERTENSION losartan- hydroCHLOROthiazide 100-12.5 MGTab 4. Prediabetes R73.03 790.29 PREDIABETES SITagliptin (JANUVIA) 100 MG tablet 5. Mixed hyperlipidemia E78.2 272.2 MIXED HYPERLIPIDEMIA atorvastatin (LIPITOR) 20 MG tablet 6. Moderate episode of recurrent major depressive disorder (CMS/HCC) F33.1 296.32 RECURRENT MAJOR DEPRESSIVE EPISODES, MODERATE escitalopram (LEXAPRO) 10 MG tablet 7. Generalized anxiety disorder F41.1 300.02 GENERALIZED ANXIETY DISORDER escitalopram (LEXAPRO) 10MG tablet 8. Seasonal allergic rhinitis due to pollen J30.1 477.0 ALLERGIC RHINITIS DUE TO POLLEN albuterol sulfate HFA 108 (90 Base) MCG/ACT inhaler 1. Class 3 severe obesity due to excess calories without serious comorbidity with body mass index (BMI) of 50.0 to 59.9 in adult ([facility]) - -Pt has elevated weight with BMI Body mass index is 48.82 kg/m??., and will need to work hard on reducing carbohydrates and total calories. -You may use the free smart phone apps such as [employer] to help track calories and try to [...] per week and 5 pounds per month. 2. Idiopathic peripheral neuropathy -Still with ongoing symptoms; adjusting her doses at today's visit. Close follow-up. Medication side effects discussed with patient. Previously she was on 200 mg 3 times daily of gabapentin. Adjusting his dose today. - gabapentin (NEURONTIN) 100 MG capsule; Take 200 mg in the morning, 200 mg in the afternoon and 300, at bedtime. Dispense: 180 capsule; Refill: 1 3. Essential hypertension -Previous blood pressures have been controlled, patient encouraged to cut back on salt intake and to take medications as directed. Refills have been sent. -I will keep patient still on current dose losartan-hydroCHLOROthiazide 100-12.5 MG Tab; Take 1 tablet by mouth daily. Dispense: 90 tablet; Refill: 3 4. Prediabetes -Continue SITagliptin (JANUVIA) 100 MG tablet; Take 1 tablet (100 mg total) by mouth daily. Dispense: 90 tablet; Refill: 2 5. Mixed hyperlipidemia -Tolerating medications with no side effects. Refill sent. -Continue atorvastatin (LIPITOR) 20 MG tablet; Take 1 tablet (20 mg total) by mouth nightly at bedtime. at bedtime Dispense: 90 tablet; Refill: 1 6. Moderate episode of recurrent major depressive disorder (CMS/HCC) - Controlled. Patient tells me she recently came off her medications however due to ongoing stress would like refills on her medication. Prescription sent. She appears to be doing well. We will follow-up closely during subsequent visits. -Continue escitalopram (LEXAPRO) 10 MG tablet; Take 1 tablet (10 mg total) by mouth daily. Dispense: 90 tablet; Refill: 2 7. Generalized anxiety disorder -Controlled. Patient tells me she recently came off her medications however due to ongoing stress would like refills on her medication. Prescription sent. She appears to be doing well. We will follow-up closely during subsequent visits. -escitalopram (LEXAPRO) 10 MG tablet; Take 1 tablet (10 mg total) by mouth daily. Dispense: 90 tablet; Refill: 2 8. Seasonal allergic rhinitis due to pollen -Controlled -Continue albuterol sulfate HFA 108 (90 Base) MCG/ACT inhaler; Inhale 2 puffs into the lungs every 4 (four) hours as needed. Dispense: 18 g; Refill: 5 Counseling given: Yes Tobacco comments: counseled by Dr Olivares I spent 40 minutes today reviewing the patient's medical record, obtaining history, performing an exam, ordering medications, tests, and/or procedures, documenting in the medical record, referring and/or communicating with other health care providers, counseling and educating the patient, reviewingand communicating test results and coordinating care. Side effects and less common but more severe adverse effects of recommended medical therapies were explained to the patient. Follow up office visit in 4 months. Requested MyChart or telephone follow up prn if symptoms change, worsen, or persist, or if side effect of treatment is experienced. NILESH: This dictation was at least in part performed using [employer] and there may be some inherent flaws in this gas technician due to the nature of this program. Tracy Olivares MD Internal Medicine [facility], [facility]. TENNIS BALL COVERER documented in this encounter Plan of Treatment Upcoming Encounters Date Type Department Care Team (Late st Contact Info) Description 10/03/2024 11:00 AM HAND TENNIS BALL COVERER Office Visit [facility] Medical [facility] Pulmonology Specialty Clinic - [address] [address] Nathan Baig MD 3 [facility] [address] [place] [address] 11/14/2024 10:20 AM HAND TENNIS BALL COVERER Office Visit [facility] Medical [facility] Multispecialty Care - [place] [address] [address] [place] [address] Tracy Olivares MD [address] [address] documented as of this encounter Visit Diagnoses Diagnosis Class 3 severe obesity due to excess calories without serious comorbidity with body mass index (BMI) of 50.0 to 59.9 in adult ([facility])- Primary Idiopathic peripheral neuropathy Unspecified hereditary and idiopathic peripheral neuropathy Essential hypertension Unspecified essential hypertension Prediabetes Other abnormal glucose Mixed hyperlipidemia Moderate episode of recurrent major depressive disorder ([facility]) Generalized anxiety disorder Seasonal allergic rhinitis due to pollen documented in this encounter Additional Health Concerns Assessment Noted Time PHQ-9 Depression Total Score: 5 01/06/20 10:48 AM CDT documented as of this encounter Care Teams Line Crew Supervisor Relationship Specialty Start Date End Date Tracy Olivares MD [address] [place] [address] PCP - General INTERNAL MEDICINE 01/02/21 Nathan Baig MD 3 [facility] [address] [place] [address] Consulting Physician Internal Medicine Pulmonary Disease 09/16/21 documented as of this encounter
--- OUTSIDE RECORDS SUMMARY | 2024-09-07 05:24 | XMS_ITS | Encounter Summary ---
Author Organization [facility] Address [address] [place] [address]. [place] [id number] [place] [address] Care Team Providers Care Aircraft Engine Installer Name Role Phone Tracy Olivares MD Primary Care Provider [phone] Nathan Baig MD Unavailable [phone] Reason for Visit * Reason Comments BP Check Encounter Details Date Type Department Care Team (Late st Contact Info) Description 09/01/2022 9:30 AM FINANCE CLERK Allied Health/Nurse Visit [facility] Multispecialty Care - [place] [address] [address] [place] [address] Tracy Olivares MD [address] [place] [address] 157 [place] [address] BP Check Social History Tobacco Use Types Packs/Day Years [...] Coronavirus/COVID-19? No / Unsure 09/01/2022 9:22 AM FINANCE CLERK documented as of this encounter Last Filed Vital Signs Vital Sign Reading Time Taken Comments Blood Pressure 159/90 09/01/2022 10:39 AM FINANCE CLERK Pulse - - Temperature - - Respiratory Rate - - Oxygen Saturation - - Inhaled Oxygen Concentration - - Weight - - Height - - Body Mass Index - - documented in this encounter Progress Notes * Tracy Olivares MD - 09/01/2022 9:30 AM CST Patient here for blood pressure recheck. Repeat blood pressure recheck around 159/90 mmhg. Currently, patient is taking Pepcid along with Nexium. I suspect this may be affecting efficacy of her current blood pressure medications. I explained to patient to switch her Nexium to nighttime to avoid reducing the acidity and efficacy of her other medications. We will follow-up with patient during her subsequent visit. Patient will continue to keep a blood pressure log as well. Hopefully this will help correct her blood pressures. No need for any dose adjustments of her blood pressure medications atthis time. Tracy Olivares MD Internal Medicine [facility], [facility]. NCE CLERK documented in this encounter Plan of Treatment Upcoming Encounters Date Type Department Care Team (Late st Contact Info) Description 10/03/2024 11:00 AM FINANCE CLERK Office Visit [facility] Pulmonology Specialty Clinic - [address] [address] Nathan Baig MD [address] [address] 11/14/2024 10:20 AM FINANCE CLERK Office Visit [facility] Multispecialty Care - [place] [address] [address] [place] [address] Tracy Olivares MD [address] [place] [address] documented as of this encounter Visit Diagnoses Diagnosis Essential hypertension- Primary Unspecified essential hypertension documented in this encounter Additional Health Concerns Assessment Noted Time PHQ-9 Depression Total Score: 5 01/06/20 22 10:48 AM CDT documented as of this encounter Care Teams Aircraft Engine Installer Relationship Specialty Start Date End Date Tracy Olivares MD [address] [address] PCP - General INTERNAL MEDICINE 01/02/21 Nathan Baig MD [address] [address] Consulting Physician Internal Medicine Pulmonary Disease 09/16/21 documented as of this encounter
--- OUTSIDE RECORDS SUMMARY | 2024-09-07 05:24 | XMS_ITS | Encounter Summary ---
Author Organization [facility] Address [address] [place] [address]. [place], [place] [address] [place] [address] Care Team Providers Care Shopper Marketing Manager Name Role Phone Tracy Olivares MD Primary Care Provider [phone] Nathan Baig MD Unavailable [phone] Encounter Details Date Type Department Care Team (Latest Contact Info) Description 02/14/2023 Travel Social History Tobacco Use Types Packs/Day [...] st Contact Info) Description 10/03/2024 11:00 AM REJOGGER Office Visit [facility] - [address] [place] [address] Nathan Baig MD [address] [address] 11/14/2024 10:20 AM REJOGGER Office Visit [facility] Multispecialty Care - [place] [address] [address] [place] [address] Tracy Olivares MD [address] [address] documented as of this encounter Visit Diagnoses Not on filedocumented in this encounter Additional Health Concerns Assessment Noted Time PHQ-9 Depression Total Score: 11 01/07/ 023 1:30 PM CDT documented as of this encounter Care Teams Shopper Marketing Manager Relationship Specialty Start Date End Date Tracy Olivares MD [address] [place] [address] PCP - General INTERNAL MEDICINE 01/02/21 Nathan Baig MD [address] [facility] [address] [place] [address] Consulting Physician Internal Medicine Pulmonary Disease 09/16/21 documented as of this encounter
--- OUTSIDE RECORDS SUMMARY | 2024-09-07 05:24 | XMS_ITS | Encounter Summary ---
Author Organization [facility] Address [address] [place] [address]. [place] [id number] [place], [place] [id number] Care Team Providers Care Landscape Designer Name Role Phone Tracy Olivares MD Primary Care Provider [phone] Nathan Baig MD Unavailable [phone] Reason for Visit * Reason Comments Lumbar Pain * Physical Medicine (Routine) - Closed Specialty Diagnoses / Procedures Referred By Heidi iverson Referred To Contact PHYSICAL THERAPY / [facility] Physical Therapy Diagnoses At risk for falling Procedures OFFICE/OUTPT VISIT,NEW,LEVL III OFFICE/OUTPT VISIT,NEW,LEVL IV OFFICE/OUTPT VISIT,NEW,LEVL V OFFICE/OUTPT VISIT,EST,LEVL III OFFICE/OUTPT VISIT,EST,LEVL IV OFFICE/OUTPT VISIT,EST,LEVL V Tarcy Olivares MD [address] [place] [address] Phone: tel: fax: [facility] [address] [place] [address] Phone: tel: fax: Referral ID Status Reason Start Date Expiration Date V isits Requested Visits Authorized [id number] Closed Physical Therapy 01/07/2023 09/11/2023 10 10 Encounter Details Date Type Department Care Team (Late st Contact Info) Description 02/14/2023 2:15 PM CDT Office Visit [facility] Physical Therapy [address] [facility] [address] [place] [address] Tracy Olivares MD 1188 [facility] 157 [place] [address] Ly Collado, [place] [address] Lumbar Pain Social History Tobacco Use Types Packs/Day [...] PM CDT documented as of this encounter Patient Instructions * Patient Instructions* Ly Collado, PT - 02/14/2023 2:15 PM CDT Access Code: [email or web address] URL: [email or web address] Date: 02/14/2023 Prepared by: Ly Collado Program Notes eating: try to write down what you eateat more veggies and fruitsmove more to get out of the sitting positionfind positive ways to control your stress.be mindful when eating, think about how your food tastes and chew and eat more slowly Exercises - Supine Lower Trunk Rotation - 1 x daily - 7 x weekly - 10 reps - Supine Posterior Pelvic Tilt - 1 x daily - 7 x weekly - 10 reps - Supine Ankle Pumps - 1 x daily - 7 x weekly - 3 sets - 10 reps - Standing Gastroc Stretch - 1 x daily - 7 x weekly - 3 reps - 20-30 sec hold - Seated Toe Flexion Extension PROM - 1 x daily - 7 x weekly - 10 reps - Standing Ankle Dorsiflexor Toe Extensor Stretch - 1 x daily - 7 x weekly - 3 sets - 10 reps documented in this encounter Progress Notes * Ly Collado, PT - 02/14/2023 2:15 PM CDT Physical Therapy Evaluation Date: 02/14/2023 Patient Name: Keegan Amaya : 1955 Diagnosis: SNOMED CT(R) 1. Back pain BACKACHE 2. Leg pain PAIN IN LOWER LIMB 3. Balance disorder IMPAIRMENT OF BALANCE Subjective: History of present condition:the patient is a 67 yo female with chief complaint of low back pain and leg pain. She has a hx of back issues with disc disorder and neuropathy. She is familiar with PT. She relates she is feeling reduced balance and is related to her right leg pain and backpain. She is having pain to both of her great toes. She feels pain to the front of her right stone and her right calf feels like it wants to cramp up. Sitting she is not noting pain but she feels it at night and she can lay down to reduce her leg and back pain. Her pain does not reduce her sleep. She has pain to her right heel upon rising to go to the bathroom as well. She is unable to walk for long periods or distance due to her back and leg pain. She feels losing weight would help and taking anew med she feels is contributing to cravings for sweets and making her gain weight. She would liketo be more active and have less pain/ Mechanism of injury: unknown Pain: current 0/10 best 0/10 worst 7/10 Location of pain: right stone, calf, foot, hip and back. Quality of pain: aches Alleviating factors:laying down, sometimes sitting Exacerbating factors: walking, sitting too long, end of her day fatigue Prior level of function(PLOF):able to walk more Patient goals for PT: reduced pain to walk more and lose weight. 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 GAIT:ambulates with reduced movement to her right pelvis and right iliac crest is elevated. Feet abducted and hips in increased ER. PALPATION: tender to right medial calf and peroneal muscles laterally. Left calf tender medial and laterally. No tenderness to arch or heel. LUMBAR AROM:active Flexion WNL Extension WFL Sidebending Rt 50% with pain Lt WNL Rotation WNL HIP ROM: Flexion WNL ER WNL 40 deg IR 30 deg Ext: reduced with poor bridge noted. Knee AROM: WNL except right knee extension -10 LE STRENGTH: Hip : Flexion 4 Abduction 3+ ER 4 IR 4 Knee: Flexion Rt 4- Lt 4 Extension Rt 4- Lt 4 Ankle Dorsiflexion 4 PF 4- Great toe extension reduced PROM on left to 30 deg and 40 deg on right. Core Strength: Upper abdominals: poor Lower abdominals: poor activation with poor bed mobility Back extensors: increased tone Flexibility: Hamstrings: WFL Piriformis: WFL NEURO SCREENING: Sensation: intact to light touch Special Tests: SLR negative Liudmila: negative but tight to right hip SI assessment: right iliac crest elevated and with anterior rotation Functional Tests: STS: increased use of knees SL stance: Rt unable Lt unable Physical Therapy Certification Form - Spine Treatment Today: Initial Evaluation completed with patient education on evaluation findings and plan of care HEP instruction: see wrap up Neuro Reeducation see flow sheet Therapy Exercise see flow sheet Timed Code Tx Minutes 25 Units 2 Total Tx Time 60 15 Therapeutic Exercise, 10 Neuromuscular Re-ed, 35 High Therapy Diagnosis: Disorder of Muscle Low Back Pain Muscle weakness (generalized-multiple) Other Abnormalities of Gait and Mobility (Pain/Weakness/Instability/Unsteady) Pain in Area right knee and stone Pain in Joint right great toe and ankle Patient demonstrated Good understanding of above education and HEP. Rehab Potential Fair Assessment: the patient presents with complaints of low back pain and leg pain limiting and feels reduced balance. Her leg pain reduces her ability to walk long distances and stand for long periods. Her eval reveals reduced ankle mobility, right knee extension, bilateral hip extension, weakness to her hips and feet. She will benefit from skilled PT to assist with these deficits to improve her mobility to her ankles and hips to allow for reduced leg and back pain and reduced fall risk. Therapy Goals: (Goals to be met by discharge) Increase ROM/ flexibility of ankle to 5deg DF and improved right knee extension by 5 deg for improved gait. Independent HEP Decrease pain to her right leg and back with HEP to < 4/10 Decrease muscle spasm/tissue tension right stone and calf to allow for improved balance and gait. Functional Gait pattern/equal weight bearing with improved DF to ankles and hip extension to walk 10 min. Increase strength hip abductors and extensors to 4+/5 and PF to 4+/5 for improved gait. Other: Baig balance and Oswerstry completed with improved outcomes by 50%. Assessment Eval Complexity Personal Factor/Co-morbidities: 3 or more (High) BMI, Chronicity, Coping Styles, Diabetic Status, Frequency, Habits of Exercise, HTN Examination of Body Systems Needing Addressed: 4 or more (High) Balance or Coordination Deficits, LE Deficits, Muscle Tension, Standing Deficits, Trunk Deficits Clinical Presentation of Patient: Unstable (High) Unpredictable and unstable characteristics - High variation in pain levels Clinical Decision Making: High Patient to be seen for: balance, biofeedback, body mechanics education, flexibilty, gait, home exercise program, instruction in self-help/behavior modification, manual therapy, modalities, neuromuscular reeducation, posture education, PRN, ROM, strengthening Next Visit: Review HEP and patient education. Baig balance assessment, oswestry completed for perceived disability, open foot for reduced foot tightness. Promote LE and ankle mobility and pelvic mobility to improve gait and balance. Frequency: 2 times per week for 10 visits. Therapist: Ly Collado PT Date: 02/14/2023 Time: 8:09 AM Physician Signature: Date: Time: Patient Name: Keegan Amaya : 1955 Cosigned by Tracy Olivares MD at 02/14/2023 4:42 PM CDT documented in this encounter Plan of Treatment Upcoming Encounters Date Type Department Care Team (Late st Contact Info) Description 10/03/2024 11:00 AM FIELD REPRESENTATIVE Office Visit [facility] Medical [facility] - [address] [address] Nathan Baig MD [address] [facility] [address] [place] [address] 11/14/2024 10:20 AM FIELD REPRESENTATIVE Office Visit [facility] Mult[facility]pecialty Care - [place] [address] [address] [place] [address] Tracy Olivares MD [address] [address] documented as of this encounter Visit Diagnoses Diagnosis Back pain- Primary Backache, unspecified Leg pain Pain in limb Balance disorder Other symptoms involving nervous and musculoskeletal systems documented in this encounter Additional Health Concerns Assessment Noted Time PHQ-9 Depression Total Score: 11 01/07/ 023 1:30 PM CDT documented as of this encounter Care Teams Landscape Designer Relationship Specialty Start Date End Date Tracy Olivares MD [address] [place] [address] PCP - General INTERNAL MEDICINE 01/02/21 Nathan Baig MD 3 [facility] [address] [place] [address] Consulting Physician Internal Medicine Pulmonary Disease 09/16/21 documented as of this encounter
--- OUTSIDE RECORDS SUMMARY | 2024-09-07 05:24 | XMS_ITS | Encounter Summary ---
Author Organization [facility] Address [address] [place] [address]. [place] [id number] [place] [address] Care Team Providers Care Grocery Caddy Name Role Phone Tracy Olivares MD Primary Care Provider [phone] Nathan Baig MD Unavailable [phone] Reason for Visit * Reason Comments Allied Health Visit Pt is here for BP ch andrea Encounter Details Date Type Department Care Team (Latest Contact Info) Description 01/24/2023 11:00 AM CDT Allied Health/Nurse Visit [facility] Multispecialty Care - [place] [address] [address] [place] [address] [place] [address] [place] [address] [address] [place], [place] [phone] Allied Health Visit (Pt is here for BP check) Social History Tobacco Use Types Packs/Day Years [...] AM CDT documented as of this encounter Last Filed Vital Signs Vital Sign Reading Time Taken Comments Blood Pressure 125/77 01/24/2023 11:04 AM CDT Pulse - - Temperature - - Respiratory Rate - - Oxygen Saturation - - Inhaled Oxygen Concentration - - Weight - - Height - - Body Mass Index - - documented in this encounter Progress Notes * Ilana Ochoa MA - 01/24/2023 11:00 AM CDT Pt is here for BP check documented in this encounter Plan of Treatment Upcoming Encounters Date Type Department Care Team (Late st Contact Info) Description 10/03/2024 11:00 AM PLATFORM MATERIAL HANDLING SUPERVISOR Office Visit [facility] Pul[facility]ology [facility]ty Clinic - [address] [address] Nathan Baig MD [address] [place] [address] 11/14/2024 10:20 AM PLATFORM MATERIAL HANDLING SUPERVISOR Office Visit [facility] Multispecialty Care - [place] [address] [address] [place] [address] Tracy Olivares MD [address] [place] [address] documented as of this encounter Visit Diagnoses Diagnosis Hypertension, unspecified type- Primary documented in this encounter Additional Health Concerns Assessment Noted Time PHQ-9 Depression Total Score: 11 01/07/ 023 1:30 PM CDT documented as of this encounter Care Teams Grocery Caddy Relationship Specialty Start Date End Date Tracy Olivares MD [address] [place] [address] PCP - General INTERNAL MEDICINE 01/02/21 Nathan Baig MD [address] [id number] Consulting Physician Internal Medicine Pulmonary Disease 09/16/21 documented as of this encounter
--- OUTSIDE RECORDS SUMMARY | 2024-09-07 05:24 | XMS_ITS | Encounter Summary ---
Author Organization [facility] Address [address] [place] [address]. [place], [place] [address] [place] [address] Care Team Providers Care Communications Professional Name Role Phone Tracy Olivares MD Primary Care Provider [phone] Nathan Baig MD Unavailable [phone] Reason for Visit * Reason Onset Date Comments Follow Up Call 02/07/2023 Encounter Details Date Type Department Care Team (Late st Contact Info) Description 02/07/2023 Telephone [facility] Medical Group Multispecialty Care - [place] [address] [address] [place] [address] [place] [address] [place] [address] 157 [place] [address] Follow Up Call Social History Tobacco Use Types Packs/Day Years [...] Progress Notes * Tracy Olivares MD - 02/07/2023 6:49 AM CDT Her recent mammogram done on 02/02/2023 was normal and will plan on screening mammogram in one year from now thanks. documented in this encounter Plan of Treatment Upcoming Encounters Date Type Department Care Team (Late st Contact Info) Description 10/03/2024 11:00 AM EDITORIAL INTERN Office Visit [facility] Pul[facility]ology Specialty Clinic - [address] [address] Nathan Baig MD [address] [address] 11/14/2024 10:20 AM EDITORIAL INTERN Office Visit [facility] Medical [facility] Multispecialty Care - [place] [address] [address] [place] [address] Tracy Olivares MD [address] [address] documented as of this encounter Visit Diagnoses Not on filedocumented in this encounter Additional Health Concerns Assessment Noted Time PHQ-9 Depression Total Score: 11 01/07/ 023 1:30 PM CDT documented as of this encounter Care Teams Communications Professional Relationship Specialty Start Date End Date Tracy Olivares MD [address] [place] [address] PCP - General INTERNAL MEDICINE 01/02/21 Nathan Baig MD 3 [facility] [address] [place] [address] Consulting Physician Internal Medicine Pulmonary Disease 09/16/21 documented as of this encounter
--- OUTSIDE RECORDS SUMMARY | 2024-09-07 05:24 | XMS_ITS | Encounter Summary ---
Author Organization [facility] Address [address] [place] [address]. [place], [place] [address] [place] [address] Care Team Providers Care Boat Oar Maker Name Role Phone Tracy Olivares MD Primary Care Provider [phone] Nathan Baig MD Unavailable [phone] Reason for Visit * Reason Comments Dilated Eye Exam (SCAN) Encounter Details Date Type Department Care Team ([facility] Contact Info) Description 02/02/2023 Scan HEALTH INFO [facility] Scanned, Doc Med Group Dilated Eye Exam (SCAN) Social History Tobacco Use Types Packs/Day [...] Upcoming Encounters Date Type Department Care Team ([facility] Contact Info) Description 10/03/2024 11:00 AM CONTROL CLERK SUBASSEMBLY Office Visit [facility] Pulmonology Specialty Clinic - [address] [place] [phone] Nathan Baig MD 3 [facility] [address] [place] [address] 11/14/2024 10:20 AM CONTROL CLERK SUBASSEMBLY Office Visit [facility] Multispecialty Care - [place] [address] [address] [place] [address] Tracy Olivares MD [address] [address] documented as of this encounter Procedures Procedure Name Priority Date/Time Associated Diagnosis Comments DIABETIC RETINOPATHY EXAM (NEGATIVE)(SCAN ORDER) Routine 02/02/2023 documented in this encounter Results * DIABETIC RETINOPATHY EXAM (NEGATIVE)(SCAN) (02/02/2023) us Doc Med Group Scanned SCANNING Final Resu lt [facility] ONBASE documented in this encounter Visit Diagnoses Not on filedocumented in this encounter Additional Health Concerns Assessment Noted Time PHQ-9 Depression Total Score: 11 01/07/ 023 1:30 PM CDT documented as of this encounter Care Teams Boat Oar Maker Relationship Specialty [place] [address] [place] [address] PCP - General INTERNAL MEDICINE 01/02/21 Nathan Baig MD 3 [facility] [address] [place] [address] Consulting Physician Internal Medicine Pulmonary Disease 09/16/21 documented as of this encounter
--- OUTSIDE RECORDS SUMMARY | 2024-09-07 05:24 | XMS_ITS | Encounter Summary ---
Author Organization [facility] - [facility] Address [address] [place] [address]. [place], [place] [address] [place] [address] Care Team Providers Care Able Bodied Tankerman Name Role Phone Tracy Olivares MD Primary Care Provider [phone] Nathan Baig MD Unavailable [phone] Reason for Visit * Reason Onset Date Comments Pre-visit Gap Closure 12/30/2022 Encounter Details Date Type Department Care Team (Latest Contact Info) Description 12/30/2022 Patient Outreach [facility] Multispecialty Care - [address] [place] [address] Darlin Loving MA Pre-visit Gap Closure Social History Tobacco Use [...] as of this encounter Progress Notes * Mirna Loving - 12/30/2022 11:36 AM CDT Preventive Screenings: Breast Cancer Screening: Up to Date Notes: Colorectal Cancer Screening: Up to Date Notes: Diabetic Eye Exam: Up to Date Notes: Falls Risk Screening: Up to Date Notes: Tobacco Cessation: N/A Notes: Labs: BMP/CMP: Up to Date Notes: Hemoglobin A1c: Needs Follow Up Notes: Lipid: Up to Date Notes: Urine Albumin-Creatinine Ratio: Needs Follow Up Notes: Immunizations: Pneumococcal: Up to Date Notes: Shingles: Needs Follow Up Notes: documented in this encounter Plan of Treatment Upcoming Encounters Date Type Department Care Team (Late st Contact Info) Description 10/03/2024 11:00 AM FOUNTAIN ATTENDANT Office Visit [facility] Pulmonology Specialty Clinic - [address] [address] Nathan Baig MD [address] [address] 11/14/2024 10:20 AM FOUNTAIN ATTENDANT Office Visit [facility] Multispecialty Care - [place] [address] [address] [place] [address] Tracy Olivares MD [address] [place] [address] documented as of this encounter Visit Diagnoses Not on filedocumented in this encounter Additional Health Concerns Assessment Noted Time PHQ-9 Depression Total Score: 5 01/06/20 10:48 AM CDT documented as of this encounter Care Teams Able Bodied Tankerman Relationship Specialty Start Date End Date Tracy Olivares MD [address] [place] [address] PCP - General INTERNAL MEDICINE 01/02/21 Nathan Baig MD [address] [address] Consulting Physician Internal Medicine Pulmonary Disease 09/16/21 documented as of this encounter
--- OUTSIDE RECORDS SUMMARY | 2024-09-07 05:24 | XMS_ITS | Encounter Summary ---
Author Organization [facility] Address [address] [place] [address]. 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 Name Role Phone Tracy Olivares MD Primary Care Provider [phone] Nathan Baig MD Unavailable [phone] Reason for Referral * Imaging (Routine) - Closed Specialty Diagnoses / Procedures Referred By Heidi iverson Referred To Contact RADIOLOGY Diagnoses Postmenopausal Procedures BONE DENSITY/DEXA Tracy Olivares MD [address] [facility] [address] [place] [address] Phone: tel: fax: [facility] [address] [facility] [address] [place] [address] Phone: tel: fax: Referral ID Status Reason Start Date Expiration Date V isits Requested Visits Authorized [id number] Closed Bone Density Testing 01/07/2023 01/08/2024 99 99 * Physical Medicine (Routine) - Closed Specialty Diagnoses / Procedures Referred By Heidi iverson Referred To Contact PHYSICAL THERAPY / [facility] Physical Therapy Diagnoses At risk for falling Procedures OFFICE/OUTPT VISIT,NEW,LEVL III OFFICE/OUTPT VISIT,NEW,LEVL IV OFFICE/OUTPT VISIT,NEW,LEVL V OFFICE/OUTPT VISIT,EST,LEVL III OFFICE/OUTPT VISIT,EST,LEVL IV OFFICE/OUTPT VISIT,EST,LEVL V Tracy Olivares MD [address] [address] Phone: tel: fax: [facility] Physical Therapy [address] [address] Phone: tel: fax: Referral ID Status Reason Start Date Expiration Date V isits Requested Visits Authorized [id number] Closed Physical Therapy 01/07/2023 09/11/2023 10 10 Scheduling Instructions Send to the [facility] * Imaging (Routine) - Closed Specialty Diagnoses / Procedures Referred By Heidi iverson Referred To Contact RADIOLOGY Diagnoses Abnormal mammogram of both breasts Procedures US BREAST LT BIRAD LTD Tracy Olivares MD [address] [address] Phone: tel: fax: [facility] [address] [place] [address] [place] [address] Phone: tel: fax: Referral ID Status Reason Start Date Expiration Date V isits Requested Visits Authorized [id number] Closed Ultrasound 01/07/2023 01/08/2024 99 99 * Imaging (Routine) - Closed Specialty Diagnoses / Procedures Referred By Contoziel t Referred To Contact RADIOLOGY Diagnoses Abnormal mammogram of both breasts Procedures US BREAST RT BIRAD LTD Tracy Olivares MD [address] [address] Phone: tel: fax: [facility] [address] [facility] [address] [place] [id number] Phone: tel: fax: Referral ID Status Reason Start Date Expiration Date V isits Requested Visits Authorized [id number] Closed Ultrasound 01/07/2023 01/08/2024 99 99 * Imaging (Routine) - Closed Specialty Diagnoses / Procedures Referred By Symoneac t Referred To Contact RADIOLOGY Diagnoses Abnormal mammogram of both breasts Procedures MG DIAGNOSTIC LUCINA DIGI Tracy Olivares MD [address] [address] Phone: tel: fax: [facility] [address] [place] [address] [address] [place] [address] Phone: tel: fax: Referral ID Status Reason Start Date Expiration Date V isits Requested Visits Authorized [id number] Closed Mammogram 01/07/2023 01/08/2024 99 99 Reason for Visit * Reason Comments Physical Follow Up Chronic medical issu es Encounter Details Date Type Department Care Team (Latest Contact Info) Description 01/07/2023 11:00 AM CDT Office Visit [facility] - [place] [address] [address] [place] [address] Tracy Olivares MD [address] [address] Physical; Follow Up (Chronic medical issues) Social History Tobacco Use Types [...] Sign Reading Time Taken Comments Blood Pressure 140/83 01/07/2023 11:40 AM CDT Pulse 77 01/07/2023 11:04 AM CDT Temperature 36.9 ??C (98.5 ??F) 01/07/2023 11:04 AM C DT Respiratory Rate 18 01/07/2023 11:04 AM CDT Oxygen Saturation 100% 01/07/2023 11:04 AM CDT Inhaled Oxygen Concentration - - Weight 130 kg (286 lb 9.6 oz) 01/07/2023 11:04 A M CDT Height 161.3 cm (5' 3.5 ) 01/07/2023 11:04 AM CD T Body Mass Index 49.97 01/07/2023 11:04 AM CDT documented in this encounter Patient Instructions * Patient Instructions* Tracy Olivares MD - 01/07/2023 11:00 AM CDT Follow-up in 4 months for your next visit with Dr. Olivares. Nurse visit in 2 weeks for your blood pressure recheck. I have placed an order for physical therapy for you. Our referral center should reach out to you. If you do not hear from anyone in 2 weeks, please call [phone]. I have also reordered your mammogram as well as a bone scan for you. * Attachments The following attachments cannot be sent through Care Everywhere. * Yearly Physical for Adults (Luxembourger) * Preventing falls in adults (Luxembourger) documented in this encounter Progress Notes * Tracy Olivares MD - 01/07/2023 11:00 AM CDTSummary: Annual physical notes Images from the original note were not included. ANNUAL PHYSICAL NOTES Encounter Date: 01/07/2023 Chief Complaint: 67-year-old female presents for Physical and Follow Up (Chronic medical issues) . The patient is being seen for a health maintenance evaluation and follow up of chronic medical issues. She has no concerns today. Hypertension: Patient with history of hypertension for many years now, ??Currently on losartan hydrochlorothiazide 100-12.5mg daily and endorses compliance. ??Denies any dizziness on standing, chest pain, cough, palpitations, orthopnea, dyspnea on exertion or chest tightness with activity. No prior echo on file.Does not follow routinely with cardiology. Blood pressure at today's visit is elevated but denies any pain. ?? Prediabetes: Patient with longstanding obesity and impaired glucose tolerance. ?? Was previously on metformin and subsequently switched to Ozempic however patient unable to tolerate dose of medication and this has since been discontinued by patient.??Does not follow a particular dietary plan. ??Does not actively exercise. ??Has a strong family history of diabetes mellitus. She is on Januvia and tolerating well. ?? Hyperlipidemia: Currently patient is on atorvastatin 20 mg daily. Endorses compliance to medications without any side effects. Denies any muscle cramping. Noted underlining history of hypertension. ?? Obesity: Patient with a BMI of 49.97 kg/m??. ??Currently not on any dietary plan. ??Has no routine exercise regimen. Patient was started on Ozempic however this had to be discontinued due to intolerance to medication.??Denies any chest pain, dyspnea on exertion. No prior history of weight loss surgery. ?? Chronic low back pain: Patient currently on tramadol, celecoxib and gabapentin and tizanidine. Currently reports her symptoms are stable. Not enrolled in physical therapy currently.??No recent falls. Has numbness that runson the back of both lower extremities- this is long standing and controlled with gabapentin. Currently does not follow with pain management or orthopedics. ?? Left shoulder pain: This is chronic. She has since been seen by orthopedic surgery and received cortisone shots a few months ago. Patient admits symptoms are currently stable.no concerns at this time. ?? Depression/generalized anxiety disorder: Longstanding history of depression and anxiety. Currently patient is on Lexapro 10 mg daily.??Denies any suicidal ideation or intentions to harm. Notes her symptoms are stable and she is doing well. Currently does not follow routinely with psychiatry or therapy. ?? FAISAL on CPAP: Patient diagnosed with FAISAL in 2019. ??She is currently on CPAP. ??Patient endorses compliance to CPAP. Currently patient follows with pulmonary and sees Dr. Baig.??Denies any chronic fatigue at the moment. Has follow-up appointment with pulmonary in May of 2023. ?? History of allergic rhinitis: Patient without any acute concerns at the moment. Currently patient is on coqb-sov-dqkxaaf antihistamines which helps with symptom controled.. ??Denies any chronic cough, sore throat, itchiness of eyes??at the moment. ?? COPD: Patient with 25-year pack history of smoking. ??Quit smoking in 1984. ??Currently follows with pulmonary and currently on albuterol and Trelegy.??Denies any chronic cough, chest tightness, dyspnea onexertion or recent admissions for COPD exacerbations. Patient COPD exacerbation. She notes her symptoms are stable. She is doing well. ?? History of cataracts/glaucoma: Patient follows with ophthalmology in an outside facility. Denies any acute changes to her vision. ?? Chronic hearing loss: Patient with chronic mild hearing loss in the left ear. ??She was seen by ENT many months ago and no interventions planned. ??Patient tells me she is currently stable. ??Has underlining allergic rhinitis. ??Has not noticed any worsening of her hearing loss at the moment. ??Has never used hearing aids in the past. ?? GERD: Patient tells me she had an EGD done in 2019 at [facility]. [place].??Currently on pantoprazole 40 mg daily and famotidine 20 mg daily. Denies any melena stool or worsening of GERD symptoms. ?? Restless leg syndrome Patient previously was on ropinirole currently patient tells me her symptoms are stable. ?? Chronic bilateral knee pain and low back pain Still ongoing concerns especially as she is unable to loose weight. Has a referral for physical therapy. She uses tramadol to help with pain. Has a cane and walker at home mostly. She last tripped at [employer] but did not fall. History of mitral valve prolapse noted and stable at this time. General Health: good Dental Health: Sees dentist regularly Vision Health: Wears glasses Hearing Health: Hearing slightly decreased Immunizations Needed: Shingrix and COVID Weight: Obese Body mass index is 49.97 kg/m??. Physical Activity: Does not exercise Cervical Cancer Screening: no longer indicated Breast Cancer Screening: Ordered today Colorectal Cancer Screening: utd Metabolic Screening: Patient needs to be screened today. HCV Screening: done PHQ-9 Screening Score: PHQ-9: 01/05/2022 10:48 AM 01/07/2023 1:30 PM PHQ2/PHQ 9 DEPRESSION SCREEN QUESTIONAIRE Little interest or pleasure in doing things Several days Feeling down, depressed, or hopeless Over half Patient Health Questionnaire-2 Score 3 Trouble falling or staying asleep, or sleeping too much Over half Feeling tired or having little energy Several days Poor appetite or overeating Several days Feeling bad about yourself - or that you are a failure or have let yourself or your family down Over half Trouble concentrating on things, such as reading the newspaper or watching television Over half Moving or speaking so slowly that other people could have noticed? Or the opposite - being so fidgety or restless that you have been moving around a lot more than usual. Not at all Thoughts that you would be better off or hurting yourself in some way Not at all Patient Health Questionnaire-9 Score 11 How difficult have these problems made it for you to do your work, take care of things at home, or get along with other people? Not difficult at all LITTLE INTEREST OR PLEASURE IN DOING THINGS 2-More than half the days FEELING DOWN, DEPRESSSED,OR HOPELESS 0-Not at All PHQ2 DEPRESSION TOTAL SCORE 2 TROUBLE FALLING OR STAYING ASLEEP OR SLEEPING TOO MUCH 0-Not at All FEELING TIRED OR HAVING LITTLE ENERGY 0-Not at All POOR APPETITE OR OVEREATING 1-Several Days FEELING BAD ABOUT YOURSELF 0-Not at All TROUBLE CONCENTRATING ON THINGS 2-More than half the days MOVING OR SPEAKING SO SLOWLY THAT OTHER PEOPLE COULD HAVE NOTICED 0-Not at All THOUGHTS THAT YOU WOULD BE BETTER OFF 0-Not at All DEPRESSION SCREENING TOTAL SCORE 5 IF YOU CHECKED OFF ANY PROBLEMS Not difficult at all SAMIR-7 (Generalized Anxiety Disorder) Screening 01/05/2022 10:00 AM 01/07/2023 11:00 AM SAMIR-7 Feeling nervous, anxious and on edge 0 - not at all 0 - not at all Not being able to stop or control worrying 0 - not at all 1 - several days Worrying too much about different things 1 - several days 1 - several days Trouble Relaxing 0 - not at all 0 - not at all Being so restless that it's hard to sit still 0 - not at all 0 - not at all Becoming easily annoyed or irritable 0 - not at all 0 - not at all Feeling afraid as if something awful might happen 1 - several days 0 - not at all Total Score 2 2 If you checked off any problems, how difficult have those problems made it for you to do your work take care of things at home or get along with other people? not difficult at all not difficult at all PHQ-9: 01/05/2022 10:48 AM 01/07/2023 1:30 PM PHQ2/PHQ 9 DEPRESSION SCREEN QUESTIONAIRE Little interest or pleasure in doing things Several days Feeling down, depressed, or hopeless Over half Patient Health Questionnaire-2 Score 3 Trouble falling or staying asleep, or sleeping too much Over half Feeling tired or having little energy Several days Poor appetite or overeating Several days Feeling bad about yourself - or that you are a failure or have let yourself or your family down Over half Trouble concentrating on things, such as reading the newspaper or watching television Over half Moving or speaking so slowly that other people could have noticed? Or the opposite - being so fidgety or restless that you have been moving around a lot more than usual. Not at all Thoughts that you would be better off or hurting yourself in some way Not at all Patient Health Questionnaire-9 Score 11 How difficult have these problems made it for you to do your work, take care of things at home, or get along with other people? Not difficult at all LITTLE INTEREST OR PLEASURE IN DOING THINGS 2-More than half the days FEELING DOWN, DEPRESSSED,OR HOPELESS 0-Not at All PHQ2 DEPRESSION TOTAL SCORE 2 TROUBLE FALLING OR STAYING ASLEEP OR SLEEPING TOO MUCH 0-Not at All FEELING TIRED OR HAVING LITTLE ENERGY 0-Not at All POOR APPETITE OR OVEREATING 1-Several Days FEELING BAD ABOUT YOURSELF 0-Not at All TROUBLE CONCENTRATING ON THINGS 2-More than half the days MOVING OR SPEAKING SO SLOWLY THAT OTHER PEOPLE COULD HAVE NOTICED 0-Not at All THOUGHTS THAT YOU WOULD BE BETTER OFF 0-Not at All DEPRESSION SCREENING TOTAL SCORE 5 IF YOU CHECKED OFF ANY PROBLEMS Not difficult at all Smoking Status: History Smoking Status ??? Former ??? Packs/day: 1.50 ??? Years: 30.00 ??? Types: Cigarettes ??? Quit date: 09/12/1984 Smokeless Tobacco ??? Never Patient does not meet criteria for Low Dose CT screening Sleep Apnea Risk Factors: FAISAL on CPAP Review of Systems Constitutional: Negative for activity change, appetite change, chills, fatigue, fever and unexpected weight change. HENT: Negative for congestion, hearing loss, mouth sores, postnasal drip, rhinorrhea, sinus pressure, sinus pain, sore throat, tinnitus and voice change. Eyes: Negative for pain, discharge, redness, itching and visual disturbance. Respiratory: Negative for cough, chest tightness, shortness of breath and wheezing. Cardiovascular: Negative for chest pain, palpitations and leg swelling. Gastrointestinal: Negative for abdominal distention, abdominal pain, blood in stool, constipation, diarrhea, nausea and vomiting. Genitourinary: Negative for decreased urine volume, difficulty urinating, dysuria, flank pain, frequency, hematuria and urgency. Musculoskeletal: Negative for arthralgias, back pain, gait problem, joint swelling and myalgias. Skin: Negative for pallor, rash and wound. Neurological: Negative for dizziness, tremors, syncope, weakness, light- headedness and headaches. Hematological: Negative for adenopathy. Does not bruise/bleed easily. Psychiatric/Behavioral: Negative for agitation, behavioral problems, confusion, decreased concentration, dysphoric mood, hallucinations, self-injury, sleep disturbance and suicidal ideas. The patientis not nervous/anxious and is not hyperactive. Patient Active Problem List Diagnosis ??? Current [...] Grandmother ??? Glaucoma Paternal Grandmother Social History Socioeconomic History ??? Marital status: Spouse name: Not on file ??? Number of children: Not on file ??? Years of education: Not on file ??? Highest education level: Not on file Occupational History ??? Not on file Tobacco Use ??? Smoking status: Former Packs/day: 1.50 Years: 30.00 Pack years: 45.00 Types: Cigarettes Quit date: 09/12/1984 Years since quittin.3 ??? Smokeless tobacco: Never ??? Tobacco comments: counseled by Dr Olivares Vaping Use ??? Vaping Use: Never used Substance and Sexual Activity ??? Alcohol use: Not Currently ??? Drug use: Not Currently ??? Sexual activity: Not Currently Other Topics Concern ??? Not on file Social History Narrative ??? Not on file Social Determinants of Health Financial Resource Strain: Not on file Food Insecurity: Not on file Transportation Needs: Not on file Physical Activity: Not on file Stress: Not on file Social Connections: Not on file Intimate Partner Violence: Not on file Housing Stability: Not on file Immunization History Administered Date(s) Administered ??? Flucelvax 6 Months+ (Prefilled Syringe) 06/05/2019 ? ? Fluzone High Dose - >Age 65 (Prefilled Syringe) 06/08/2021, 06/16/2022 ??? Influenza 06/12/2013, 06/07/2014 ??? Influenza Adult (Generic) 06/12/2013, 06/07/2014, 06/10/2015, 05/17/2016, 05/20/2017, 06/05/2018, 05/28/2020, 07/01/2020 ??? PFIZER COVID-19 ([place] CAP), MRNA, LNP-S, PF, 30 MCG/0.3 ML ERIK-SUCROSE, IM 04/28/2022 ??? PFIZER COVID-19 (ORIGINAL FORMULATION, PURPLE CAP) mRNA, LNP-S, PF, 30 MCG/0.3 ML DOSE 12/09/2020, 12/30/2020 ??? Pneumococcal (Pneumovax 23) 05/01/2016, 05/17/2016, 03/03/2021 ??? Pneumococcal (Prevnar 13) 04/02/2022 ??? Tdap (Adacel) 07/06/2021 Current Outpatient Medications Medication Sig Dispense Refill ??? albuterol sulfate HFA 108 (90 Base) MCG/ACT inhaler Inhale 2 puffs into the lungs every 4 (four) hours as needed. 18 g 5 ??? aspirin 81 MG tablet Take 1 tablet (81 mg total) by mouth daily. ??? atorvastatin (LIPITOR) 20 MG tablet Take 1 tablet (20 mg total) by mouth nightly at bedtime. atbedtime 90 tablet 1 ??? AZELASTINE 137 MCG/SPRAY nasal spray Please specify directions, refills and quantity 30 mL 0 ??? celecoxib (CELEBREX) 200 MG capsule Take 1 capsule (200 mg total) by mouth daily. 10 capsule 0 ??? cetirizine (ZYRTEC) 10 MG tablet Take 1 tablet (10 mg total) by mouth daily. 90 tablet 3 ??? ciclopirox (PENLAC) 8 % solution ??? diphenhydrAMINE-zinc (BENADRYL EXTRA STRENGTH) 2-0.1 % Cream cream Use twice daily on skin to help with itching. 28 g 1 ??? escitalopram (LEXAPRO) 10 MG tablet Take 1 tablet (10 mg total) by mouth daily. 90 tablet 2 ??? famotidine (PEPCID) 20 MG tablet Take 1 tablet (20 mg total) by mouth 2 (two) times daily as needed for Heartburn. 180 tablet 1 ??? fluticasone propionate (FLONASE) 50 MCG/ACT nasal spray 2 sprays by Nasal route daily. 16 g 5 ??? Rryavhgmuos-Jbdthblsg-Wddqwg (TRELEGY ELLIPTA) 100-62.5-25 MCG/ACT AEROSOL POWDER, BREATH ACTIVATED Inhale 1 puff into the lungs daily. 180 each 3 ??? gabapentin (NEURONTIN) 100 MG capsule Take 200 mg in the morning, 200 mg in the afternoon and 300 mg at bedtime 180 capsule 1 ??? losartan-hydroCHLOROthiazide (HYZAAR) 100-12.5 MG tablet Take 1 tablet by mouth daily. 90 tablet 3 ??? meclizine 12.5 MG tablet Take 1 tablet (12.5 mg total) by mouth nightly as needed. 20 tablet 0 ??? ONETOUCH VERIO test strip ??? pantoprazole EC (PROTONIX) 40 MG tablet pantoprazole 40 mg tablet,delayed release TAKE 1 TABLETBY MOUTH EVERY DAY IN THE MORNING 90 tablet 1 ??? SITagliptin (JANUVIA) 100 MG tablet Take 1 tablet (100 mg total) by mouth daily. 90 tablet 2 ??? tiZANidine (ZANAFLEX) 4 MG tablet Take 0.5 tablets (2 mg total) by mouth nightly at bedtime. atbedtime 90 tablet 1 ??? traMADol (ULTRAM) 50 MG tablet Take 1 tablet (50 mg total) by mouth 2 (two) times daily as needed for Pain. Indications: Chronic Pain 60 tablet 0 ??? Vitamin D, Cholecalciferol, 50 MCG (2000 UT) Cap Take 1,000 Units by mouth daily. 30 capsule No current facility-administered medications for this visit. Current Outpatient Medications on File Prior to Visit Medication Sig ??? aspirin 81 MG tablet Take 1 tablet (81 mg total) by mouth daily. ??? AZELASTINE 137 MCG/SPRAY nasal spray Please specify directions, refills and quantity ??? cetirizine (ZYRTEC) 10 MG tablet Take 1 tablet (10 mg total) by mouth daily. ??? ciclopirox (PENLAC) 8 % solution ??? diphenhydrAMINE-zinc (BENADRYL EXTRA STRENGTH) 2-0.1 % Cream cream Use twice daily on skin to help with itching. ??? fluticasone propionate (FLONASE) 50 MCG/ACT nasal spray 2 sprays by Nasal route daily. ??? meclizine 12.5 MG tablet Take 1 tablet (12.5 mg total) by mouth nightly as needed. ??? ONETOUCH VERIO test strip ??? traMADol (ULTRAM) 50 MG tablet Take 1 tablet (50 mg total) by mouth 2 (two) times daily as needed for Pain. Indications: Chronic Pain ??? Vitamin D, Cholecalciferol, 50 MCG (2000 UT) Cap Take 1,000 Units by mouth daily. No current facility-administered medications on file prior to visit. Allergies Allergen Reactions ??? Propoxyphene Unknown Objective: Filed Vitals: 01/07/23 1104 01/07/23 1140 BP: (!) 154/87 (!) 140/83 Pulse: 77 Resp: 18 Temp: 98.5 ??F (36.9 ??C) TempSrc: Temporal SpO2: 100% Weight: 130 kg (286 lb 9.6 oz) Height: 5' 3.5 (1.613 m) Physical Exam Vitals and nursing note reviewed. Constitutional: General: She is not in acute distress. Appearance: She is not ill-appearing, toxic-appearing or diaphoretic. HENT: Head: Normocephalic and atraumatic. Right Ear: Tympanic membrane, ear canal and external ear normal. Left Ear: Tympanic membrane, ear canal and external ear normal. Nose: Nose normal. No congestion. Mouth/Throat: Pharynx: No oropharyngeal exudate. Eyes: General: No scleral icterus. Left eye: No discharge. Conjunctiva/sclera: Conjunctivae normal. Pupils: Pupils are equal, round, and reactive to light. Neck: Thyroid: No thyromegaly. Vascular: No JVD. Trachea: No tracheal deviation. Cardiovascular: Rate and Rhythm: Normal rate and regular rhythm. Pulses: Normal pulses. Heart sounds: Normal heart sounds. No murmur heard. No friction rub. No gallop. Pulmonary: Effort: Pulmonary effort is normal. No respiratory distress. Breath sounds: Normal breath sounds. No stridor. No wheezing or rales. Chest: Chest wall: No tenderness. Abdominal: General: Bowel sounds are normal. There is no distension. Palpations: Abdomen is soft. There is no mass. Tenderness: There is no abdominal tenderness. There is no guarding or rebound. Musculoskeletal: General: No swelling, tenderness, deformity or signs of injury. Normal range of motion. Cervical back: Normal range of motion and neck supple. Right lower leg: No edema. Left lower leg: No edema. Lymphadenopathy: Cervical: No cervical adenopathy. Skin: General: Skin is warm. Coloration: Skin is not jaundiced or pale. Findings: No bruising, erythema, lesion or rash. Neurological: Mental Status: She is alert and oriented to person, place, and time. Cranial Nerves: No cranial nerve deficit. Sensory: No sensory deficit. Motor: No weakness or abnormal muscle tone. Coordination: Coordination normal. Gait: Gait is intact. Gait normal. Deep Tendon Reflexes: Reflexes are normal and symmetric. Reflexes normal. Psychiatric: Mood and Affect: Mood and affect normal. Behavior: Behavior normal. Thought Content: Thought content normal. Cognition and Memory: Memory normal. Judgment: Judgment normal. Assessment & Plan: Keegan was seen today for physical and follow up. Diagnoses and all orders for this visit: Abnormal mammogram of both breasts - MG DIAGNOSTIC LUCINA DIGI - US BREAST RT BIRAD LTD; Future - US BREAST LT Emerging TigersAD LTD; Future - US BREAST RT BIRAD LTD - US BREAST LT BIRAD LTD Annual physical exam - Patient past medical, surgical, family history and social history updated. Allergies, immunizations and medications updated. Also did discuss healthy lifestyle including exercising, dietary changes and safe sexual practices as well as safe habits common to patient age group including wearing seat belt when transporting in a vehicle and limiting alcohol and avoiding smoking/second hand smoking. [facility] Patient will fax over any remaining outside records that would be relevant to care provided. - VENIPUNC ARM DRAW - CBC W/DIFF AUTOMATED; Future - COMPREHENSIVE METABOLIC PANEL; Future - LIPID PANEL; Future - TSH W/REFLEX; Future - HEMOGLOBIN, GLYCOSYLATED; Future - URINALYSIS AUTO DIP - ALBUMIN URINE RANDOM - CBC W/DIFF AUTOMATED - COMPREHENSIVE METABOLIC PANEL - LIPID PANEL - TSH W/REFLEX - HEMOGLOBIN, GLYCOSYLATED General medical exam - Patient past medical, surgical, family history and social history updated. Allergies, immunizations and medications updated. Also did discuss healthy lifestyle including exercising, dietary changes and safe sexual practices as well as safe habits common to patient age group including wearing seat belt when transporting in a vehicle and limiting alcohol and avoiding smoking/second hand smoking. Patient will set up [employer]. Patient will fax over any remaining outside records that would be relevant to care provided. - VENIPUNC ARM DRAW - CBC W/DIFF AUTOMATED; Future - COMPREHENSIVE METABOLIC PANEL; Future - LIPID PANEL; Future - TSH W/REFLEX; Future - HEMOGLOBIN, GLYCOSYLATED; Future - URINALYSIS AUTO DIP - ALBUMIN URINE RANDOM - CBC W/DIFF AUTOMATED - COMPREHENSIVE METABOLIC PANEL - LIPID PANEL - TSH W/REFLEX - HEMOGLOBIN, GLYCOSYLATED Screening for diabetes mellitus - HEMOGLOBIN, GLYCOSYLATED; Future - URINALYSIS AUTO DIP - ALBUMIN URINE RANDOM - HEMOGLOBIN, GLYCOSYLATED Abnormal finding of blood chemistry, unspecified - CBC W/DIFF AUTOMATED; Future - HEMOGLOBIN, GLYCOSYLATED; Future - CBC W/DIFF AUTOMATED - HEMOGLOBIN, GLYCOSYLATED At risk for falling - Ambulatory referral to Physical Therapy Postmenopausal - BONE DENSITY/DEXA; Future - BONE DENSITY/DEXA Essential hypertension - Patient currently controlled on current treatment for hypertension. Will continue. Continued to discuss weight loss, adequate cardiovascular fitness. DASH diet was discussed as well as decrease in sodium intake. BP goal of < 140/90 expressed. - Lifestyle modification including dietary changes to include less saturated fats, lean meat, more vegetables and exercise at least 30 min every day. - Continue losartan-hydroCHLOROthiazide (HYZAAR) 100-12.5 MG tablet; Take 1 tablet by mouth daily. Class 3 severe obesity due to excess calories without serious comorbidity with body mass index (BMI) of 50.0 to 59.9 in adult ([facility]) - -Pt has elevated weight with BMI Body mass index is 49.97 kg/m??., and will need to work hard on reducing carbohydrates and total calories. -You may use the free smart phone apps such as Anevia to help track calories and try to [...] per week and 5 pounds per month. Idiopathic peripheral neuropathy - Stable for now - Continue gabapentin (NEURONTIN) 100 MG capsule; Take 200 mg in the morning, 200 mg in the afternoon and 300 mg at bedtime Prediabetes - Stable for now - Continue SITagliptin (JANUVIA) 100 MG tablet; Take 1 tablet (100 mg total) by mouth daily. Mixed hyperlipidemia - Stable and tolerating medication - continue atorvastatin (LIPITOR) 20 MG tablet; Take 1 tablet (20 mg total) by mouth nightly at bedtime. at bedtime Moderate episode of recurrent major depressive disorder (CMS/HCC) - Controlled - I personally reviewed PHQ-9 and SAMIR-7 scores with patient today and explained the meaning of patient's scores to patient. Patient is currently controlled. I counseled for about 3 minutes on strategies including stress management, sleep hygiene, balanced diet, regular physical activity including aerobic exercise, weight reduction, activity pacing, maintenance of overall health lifestyle, medication compliance and the need for close follow up. Comorbidities including depression, anxiety currently being managed. Active nonpharmacological therapies including supervised and graded exercise program as well as cognitive behavioral interventions discussed as well. Based on patient scores today, Ihjamal discussed with patient the plan as outlined below. - Continue escitalopram (LEXAPRO) 10 MG tablet; Take 1 tablet (10 mg total) by mouth daily. Generalized anxiety disorder - Controlled - I personally reviewed PHQ-9 and SAMIR-7 scores with patient today and explained the meaning of patient's scores to patient. Patient is currently controlled. I counseled for about 3 minutes on strategies including stress management, sleep hygiene, balanced diet, regular physical activity including aerobic exercise, weight reduction, activity pacing, maintenance of overall health lifestyle, medication compliance and the need for close follow up. Comorbidities including depression, anxiety currently being managed. Active nonpharmacological therapies including supervised and graded exercise program as well as cognitive behavioral interventions discussed as well. Based on patient scores today, Ihave discussed with patient the plan as outlined below. - Continue escitalopram (LEXAPRO) 10 MG tablet; Take 1 tablet (10 mg total) by mouth daily. Seasonal allergic rhinitis due to pollen - Stable - Continue albuterol sulfate HFA 108 (90 Base) MCG/ACT inhaler; Inhale 2 puffs into the lungs every4 (four) hours as needed. Gastroesophageal reflux disease without esophagitis - Stable with no red flags signs - Continue pantoprazole EC (PROTONIX) 40 MG tablet; pantoprazole 40 mg tablet,delayed release TAKE 1 TABLET BY MOUTH EVERY DAY IN THE MORNING - Continue famotidine (PEPCID) 20 MG tablet; Take 1 tablet (20 mg total) by mouth 2 (two) times daily as needed for Heartburn. FAISAL on CPAP - Stable for now - Follow up with pulmonary as planned Chronic bilateral low back pain with bilateral sciatica - Stable for now and no red flag signs - Continue with Tramadol as needed - continue tiZANidine (ZANAFLEX) 4 MG tablet; Take 0.5 tablets (2 mg total) by mouth nightly at bedtime. at bedtime Pulmonary emphysema, unspecified emphysema type (CMS/HCC) - stable; continue with Trelegy and albuterol prn - continue to follow with pulmonary as planned - Continue Glqoorygbgj-Ptuuydxzd-Cupsxj (TRELEGY ELLIPTA) 100-62.5-25 MCG/ACT AEROSOL POWDER, BREATH ACTIVATED; Inhale 1 puff into the lungs daily. Breast pain, left - Still complains of left breast pain; recent mammogram with no concerning findings - Continue celecoxib (CELEBREX) 200 MG capsule; Take 1 capsule (200 mg total) by mouth daily. Mitral valve prolapse - stable for now I personally spent a total of 60 minutes on the day of the encounter. This includes yyrn-oc-lnut and wmy-oihm-iw-face time I provided on the day of the encounter & excludes time spent performing separately reportable services. DRAGON: This dictation was at least in part performed using Mogad and there may be some inherent flaws in this check writing machine operator due to the nature of this program. MD Tracy PASCAL MD Internal Medicine [facility] Medical [facility], [facility]. documented in this encounter Plan of Treatment Upcoming Encounters Date Type Department Care Team (Late st Contact Info) Description 10/03/2024 11:00 AM MOTORIZED SQUAD SERGEANT Office Visit [facility] Medical Group Pulmonology Specialty [facility] - [place] [address] [place] [address] Nathan Baig MD [address] [place] [address] 11/14/2024 10:20 AM MOTORIZED SQUAD SERGEANT Office Visit [facility] Medical Group Multispecialty Care - [address] [address] [address] [place] [address] Tracy Olivares MD [address] [facility] [address] [place] [address] Scheduled Orders Name Type Priority Associated Diagnoses Orde r Schedule MG DIAGNOSTIC LUCINA DIGI MAMMO Routine Abnormal mammogram of both breasts Ordered: 01/07/2023 US BREAST RT [employer] Ultrasound Routine Abnormal mammogram of both breasts Expected: 01/07/2023, Expires: 07/09/2023 US BREAST LT [employer] Ultrasound Routine Abnormal mammogram of both breasts Expected: 07/09/2023 (Approximate), Expires: 01/08/2024 BONE DENSITY/DEXA DEXA Routine Postmenopausal Expected: 01/07/2023, Expires: 02/07/2024 Scheduled Referrals Name Type Priority Associated Diagnoses Orde r Schedule Ambulatory referral to Physical Therapy Referral Routine At risk for falling Ordered: 01/07/2023 documented as of this encounter Procedures Procedure Name Priority Date/Time Associated Diagnosis Comments TSH W/REFLEX Routine 01/07/2023 11:54 AM CDT Annual physical exam General medical exam HEMOGLOBIN, GLYCOSYLATED Routine 01/07/2023 11:54 AM CDT Annual physical exam General medical exam Screening for diabetes mellitus Abnormal finding of blood chemistry, unspecified COMPREHENSIVE METABOLIC PANEL Routine 01/07/2023 11:54 AM CDT Annual physical exam General medical exam LIPID PANEL Routine 01/07/2023 11:54 AM CDT Annual physical exam General medical exam CBC W/DIFF AUTOMATED Routine 01/07/2023 11:54 AM CDT Annual physical exam General medical exam Abnormal finding of blood chemistry, unspecified VENIPUNC ARM DRAW Routine 01/07/2023 11: 21 AM CDT Annual physical exam General medical exam URINALYSIS AUTO DIP Routine 01/07/2023 Annual physical exam General medical exam Screening for diabetes mellitus ALBUMIN URINE RANDOM W/CREATININE Routine 01/07/2023 Annual physical exam General medical exam Screening for diabetes mellitus documented in this encounter Results * HEMOGLOBIN, GLYCOSYLATED (01/07/2023 11:54 AM CDT) HGB A1C 5.6 <5.7 % of total Hgb [employer] [facility] Comment: For the purpose of screening for the presence of diabetes: <5.7% ? Consistent with the absence of diabetes 5.7-6.4% ?Consistent with increased risk for diabetes ?(prediabetes) > or =6.5% ??Consistent with diabetes This assay result is consistent with a decreased risk of diabetes. Currently, no consensus exists regarding use of hemoglobin A1c for diagnosis of diabetes in children. According to [place] Diabetes Association (ADA) guidelines, hemoglobin A1c <7.0% represents optimal control in non- diabetic patients. Different metrics may apply to specific patient populations. Standards of Medical Care in Diabetes(ADA). ?? 01/07/2023 11:5 4 AM CDT 01/08/2023 4:42 AM CDT Narrative Resulting Agency Comment Performing Organization Information: ?Site ID: ID ?Name: [facility] Humberto ?Address: [address] [place] [address] ?Director: Mahin Mckeon MD Tracy Olivares MD LABORATORY Final Result [facility]ILA [facility] [employer] [facility] [address] [place] [id number], * TSH W/REFLEX (01/07/2023 11:54 AM CDT) TSH 1.83 0.40 - 4.50 mIU/L [employer] [facility] 01/07/2023 11:5 4 AM CDT 01/08/2023 4:42 AM CDT Narrative Resulting Agency Comment Performing Organization Information: ?Site ID: [place] ?Name: Anila Paul ?Address: [address] [address] ?Director: Mahin Mckeon MD Tracy Olivares MD LABORATORY Final Result ANILA CABAN [facility] [address] [place] [id number], * LIPID PANEL (01/07/2023 11:54 AM CDT) CHOLESTEROL 133 <200 mg/dL [facility] HDL 65 > OR = 50 mg/dL [facility] TRIGLYCERIDES 63 <150 mg/dL [facility] LDL (CALCULATED) 54 mg/dL (calc) [facility] Comment: Reference range: <100 Desirable range <100 mg/dL for primary prevention; ?? <70 mg/dL for patients with CHD or diabetic patients with > or = 2 CHD risk factors. LDL-C is now calculated using the Buddy-Akhil calculation, which is a validated novel method providing better accuracy than the Friedewald equation in the estimation of LDL-C. Buddy ANAND et al. PORTER. 2013;310(19): 3764-4899 (http://education.Kynogon.Biodesy/faq/XXV715) CHOL/HDL RATIO 2.0 <5.0 (calc) [facility] NON HDL CHOLESTEROL 68 <130 mg/dL (calc) [facility] Comment: For patients with diabetes plus 1 major ASCVD risk factor, treating to a non-HDL-C goal of <100 mg/dL (LDL-C of <70 mg/dL) is considered a therapeutic option. 01/07/2023 11:5 4 AM CDT 01/08/2023 4:42 AM CDT Narrative Resulting Agency Comment Performing Organization Information: ?Site ID: [place] ?Name: Anila Paul ?Address: [address] [address] ?Director: Mahin Mckeon MD Tracy Olivares MD LABORATORY Final Result ANILA TATUM - [facility]ONE ORDERS [facility]EEPT[facility] [place] [address] [address], * COMPREHENSIVE METABOLIC PANEL (01/07/2023 11:54 AM CDT) GLUCOSE 99 65 - 99 mg/dL [facility] Comment: ? Fasting reference interval BUN 16 7 - 25 mg/dL [facility] [employer] [facility] CREATININE S/P/B 0.76 0.50 - 1.05 mg/dL [facility] GFR ESTIMATE 86 > OR = 60 mL/min/1 .73m2 [facility] [employer] [facility] Comment: The eGFR is based on the CKD-EPI 2020 equation. To calculate the new eGFR from a previous Creatinine or Cystatin C result, go to https://www.kidney.org/professionals/ kdoqi/gfr%5Fcalculator BUN CREATININE RATIO NOT APPLICABLE 6 - 22 (calc) [facility] [employer] [facility] SODIUM S/P/B 142 135 - 146 mmol/L [facility] DIAGNOSTICS [facility] POTASSIUM S/P/B 3.9 3.5 - 5.3 mmol/L [facility] DIAGNOSTICS [facility] CHLORIDE S/P/B 105 98 - 110 mmol/L [facility] CO2 28 20 - 32 mmol/L [facility] CALCIUM S/P/B 8.9 8.6 - 10.4 mg/dL [facility] TOTAL PROTEIN S/P/B 6.7 6.1 - 8.1 g/dL [facility] ALBUMIN S/P/B 3.7 3.6 - 5.1 g/dL [facility] GLOBULIN 3.0 1.9 - 3.7 g/dL (calc) [facility] DIAGNOSTICS [facility] ALBUMIN/GLOBULI N RATIO 1.2 1.0 - 2.5 (calc) [facility] DIAGNOSTICS [facility] BILIRUBIN TOTAL S/P/B 0.4 0.2 - 1.2 mg/dL [facility] DIAGNOSTICS [facility] ALKALINE PHOSPHATASE S/P/B 151 37 - 153 U/L [facility] AST 11 10 - 35 U/L [employer] [facility] ALT 9 6 - 29 U/L [employer] [place] 01/07/2023 11:5 4 AM CDT 01/08/2023 4:42 AM CDT Narrative Resulting Agency Comment Performing Organization Information: ?Site ID: [place] ?Name: Anila Paul ?Address: [address] [place] [id number] ?Director: Mahin Mckeon MD Tracy Olivares MD LABORATORY Final Result [employer] DIAGNOSTICS - [place] [facility] [employer] DEEPTI [facility] [address] [place] [address], * (ABNORMAL) CBC W/DIFF AUTOMATED (01/07/2023 11:54 AM CDT) WBC 7.2 3.8 - 10.8 Thousand/ uL [employer] [facility] RBC 4.01 3.80 - 5.10 Million/u L [employer] [facility] HGB 11.5(L) 11.7 - 15.5 g/dL [employer] [place] HCT 35.7 35.0 - 45.0 % [employer] [place] MCV 89.0 80.0 - 100.0 fL [employer] [place] MCH 28.7 27.0 - 33.0 pg [employer] [facility] MCHC 32.2 32.0 - 36.0 g/dL [employer] [facility] RDW 13.6 11.0 - 15.0 % [employer] [place] PLT 278 140 - 400 Thousand/ uL [employer] [place] MPV 10.4 7.5 - 12.5 fL [employer] [place] ABS. NEUTROPHILS 4,810 1,500 - 7,800 cells/uL [facility] [place] ABS. LYMPHOCYTES 1,714 850 - 3,900 cells/uL [facility] [place] ABS. MONOCYTES 490 200 - 950 cells/uL [facility] [place] ABS. EOSINOPHILS 158 15 - 500 cells/uL [facility] [place] ABS. BASOPHILS 29 0 - 200 cells/uL [facility] [place] SEG NEUTROPHILS 66.8 % [facility] [place] LYMPHOCYTES 23.8 % [facility] [place] MONOCYTES 6.8 % [facility] [place] EOSINOPHILS 2.2 % [facility] [place] BASOPHILS 0.4 % [facility] [place] 01/07/2023 11:5 4 AM CDT 01/08/2023 4:42 AM CDT Narrative Resulting Agency Comment Performing Organization Information: ?Site ID: ID ?Name: [facility] ?Address: [address] [place] [address] [place] [address] ?Director: Mahin Mckeon MD Tracy Olivares MD LABORATORY Final Result Performing Organization Address [facility]/ZIP Co de Phone Number [facility] [employer] [facility]EEPT[facility] [address] [facility] [place] [address], * ALBUMIN URINE RANDOM (01/07/2023) MICROALBUMIN (U) 10 MG- [address], [place] CREATININE RANDOM (U) 200 MG[address], [place] MICROALB/CREAT <30 MG-[address], [place] URINE SPECIMEN / Unknown 01/07/2023 Tracy Olivares MD URINE ORDERABLES Final Result Performing Organization Address [facility] Co de Phone Number [id number], [place] [address] [place] [address], * URINALYSIS AUTO DIP (01/07/2023) COLOR (U) YELLOW MG[address], [place] TRANSPARENCY CLEAR MG[address], [place] GLUCOSE (U) NEGATIVE MG/DL MG-[address], [place] BILIRUBIN (U) NEGATIVE MG-[address], [place] KETONES MG/DL (U) NEGATIVE MG/DL MG-[address], [place] SPECIFIC GRAVITY (U) 1.020 MG[address], [place] BLOOD (U) NEGATIVE MG-[address], [place] U PH 6.0 MG-[address], [place] PROTEIN (U) NEGATIVE mg/dL MG-[address], [place] UROBILINOGEN 0.2 EU/dL = mg/dL MG[address], [place] NITRITES NEGATIVE MG/DL MG-[address], [place] LEUKOCYTES (U) NEGATIVE MG-[address], [place] URINE SPECIMEN OBTAINED BY CLEAN CATCH PROCEDURE / Unknown 01/07/2023 Tracy Olivares MD URINE ORDERABLES Final Result -[address], [place] [address] [facility] [address] [place] [address], documented in this encounter Visit Diagnoses Diagnosis Abnormal mammogram of both breasts- Primary Annual physical exam Routine general medical examination at a health care facility General medical exam Unspecified general medical examination Screening for diabetes mellitus Abnormal finding of blood chemistry, unspecified At risk for falling Personal history of fall Postmenopausal Asymptomatic postmenopausal status (age-related) (natural) Essential hypertension Unspecified essential hypertension Class 3 severe obesity due to excess calories without serious comorbidity with body mass index (BMI) of 50.0 to 59.9 in adult ([facility]) Idiopathic peripheral neuropathy Unspecified hereditary and idiopathic peripheral neuropathy Prediabetes Other abnormal glucose Mixed hyperlipidemia Moderate episode of recurrent major depressive disorder ([facility]) Generalized anxiety disorder Seasonal allergic rhinitis due to pollen Gastroesophageal reflux disease without esophagitis Esophageal reflux FAISAL on CPAP Obstructive sleep apnea (adult) (pediatric) Chronic bilateral low back pain with bilateral sciatica Pulmonary emphysema, unspecified emphysema type ([facility]) Breast pain, left Mastodynia MVP (mitral valve prolapse) Mitral valve disorders documented in this encounter Additional Health Concerns Assessment Noted Time PHQ-9 Depression Total Score: 11 023 1:30 PM CDT documented as of this encounter Care Teams Manufactured Buildings Repairer Relationship Specialty Start Date End Date Tracy Olivares MD [address] [facility] [address] [place] [address] PCP - General INTERNAL MEDICINE 01/02/21 Nathan Baig MD [address] [place] [address] Consulting Physician Internal Medicine Pulmonary Disease 09/16/21 documented as of this encounter
--- OUTSIDE RECORDS SUMMARY | 2024-09-07 05:24 | XMS_ITS | Encounter Summary ---
Author Organization [facility] Address [address] [place] [address]. [place], [place] [address] [place] [address] Care Team Providers Care Auxiliary Power Equipment Operator Name Role Phone Tracy Olviares MD Primary Care Provider [phone] Nathan Baig MD Unavailable [phone] Encounter Details Date Type Department Care Team (Latest Contact Info) Description 08/11/2022 Scan HEALTH INFO SRVCS Scanned, Doc Med [...] st Contact Info) Description 10/03/2024 11:00 AM TEST AND BALANCE ENGINEER Office Visit [facility] Medical Group Pulmonology Specialty Clinic - [address] [place] [address] Nathan Baig MD [address] [place] [address] 11/14/2024 10:20 AM TEST AND BALANCE ENGINEER Office Visit [facility] Medical Group Multispecialty Care - [address] [address] [address] [place] [address] Tracy Olivares MD [address] [place] [address] documented as of this encounter Visit Diagnoses Not on filedocumented in this encounter Additional Health Concerns Assessment Noted Time PHQ-9 Depression Total Score: 5 01/06/20 10:48 AM CDT documented as of this encounter Care Teams Auxiliary Power Equipment Operator Relationship Specialty Start Date End Date Tracy Olivares MD [address] [place] [address] PCP - General INTERNAL MEDICINE 01/02/21 Nathan Baig MD [address] [address] Consulting Physician Internal Medicine Pulmonary Disease 09/16/21 documented as of this encounter
--- OUTSIDE RECORDS SUMMARY | 2024-09-07 05:24 | XMS_ITS | Encounter Summary ---
Author Organization [facility] - [facility] Address [address] [place] [address]. [place], [place] [address] [place] [address] Care Team Providers Care Undercar Specialist Name Role Phone Tracy Olivares MD Primary Care Provider [phone] Nathan Baig MD Unavailable [phone] Reason for Visit * Reason Comments Breast Pain Patient had some lef t breast pain last night and did a self breast exam and did not find any lumps Encounter Details Date Type Department Care Team (Latest Contact Info) Description 11/30/2022 2:00 PM CDT Office Visit [facility] Multispecialty Care - [place] [address] [address] [place], [place] [id number] Tracy Olivares MD [address] [place] [address] [address] [place] [address] Breast Pain (Patient had some left breast pain last night and did a self breast exam and did not find any lumps) Social History Tobacco Use Types Packs/Day Years [...] PM CDT documented as of this encounter Last Filed Vital Signs Vital Sign Reading Time Taken Comments Blood Pressure 155/84 11/30/2022 3:12 PM CDT Pulse 80 11/30/2022 2:14 PM CDT Temperature 36.4 ??C (97.6 ??F) 11/30/2022 2:14 PM CD T Respiratory Rate 18 11/30/2022 2:14 PM CDT Oxygen Saturation 99% 11/30/2022 2:14 PM CDT Inhaled Oxygen Concentration - - Weight 130 kg (286 lb 9.6 oz) 11/30/2022 2:14 PM CDT Height 161.3 cm (5' 3.5 ) 11/30/2022 2:14 PM CDT Body Mass Index 49.97 11/30/2022 2:14 PM CDT documented in this encounter Patient Instructions * Patient Instructions* Tracy Olivares MD - 11/30/2022 2:00 PM CDT Please take your medication as directed; if the celebrex is not covered please take Tylenol as needed. * Attachments The following attachments cannot be sent through Care Everywhere. * Mastalgia Discharge Instructions ([place] Citizen) documented in this encounter Progress Notes * Tracy Olivares MD - 11/30/2022 2:00 PM CDTSummary: Acute visit notes Images from the original note were not included. Internal Medicine Outpatient Progress Note CC: Breast Pain (Patient had some left breast pain last night and did a self breast exam and did not find any lumps) HPI: Keegan Crandall is a 67-year-old female who presents for an acute visit for concerns about left chest pain that was present yesterday. The pain has since resolved however patient reports this is new. She did experience a cramping pain that was constant for about 45 minutes yesterday night while she was lying down. She has a history of GERD and tells me symptoms were different. She rated her pain as 6/10. Pain never radiated into the left upper extremity. Denies any nausea, sweating or distress during the episode. She did not feel lightheaded or having palpitations during the episode. The pain was relieved with massaging her left chest wall and left breast. She is up-to-date with her mammogram that was done in January 2022. She is due in January 2023. Denies any nipple discharge or breast changes or breast lumps. Patient concerned and reports at today's visit to be evaluated. Problem List Patient Active Problem List Diagnosis [...] Cigarettes Quit date: 09/12/1984 Years since quittin.2 ??? Smokeless tobacco: Never ??? Tobacco comments: counseled by Dr Olivares Vaping Use ??? Vaping Use: Never used Substance Use Topics ??? Alcohol use: Not Currently ??? Drug use: Not Currently Medications: Outpatient Medications Marked as Taking for the 11/30/22 encounter (Office Visit) with Tracy Olivares MD [...] at bedtime. atbedtime 90 tablet 1 ??? [START ON 12/01/2022] celecoxib (CELEBREX) 200 MG capsule Take 1 capsule (200 mg total) by mouthdaily. 10 capsule 0 ??? cetirizine (ZYRTEC) 10 [...] 2 ??? esomeprazole (NEXIUM) 40 MG capsule ??? famotidine (PEPCID) 20 MG tablet ??? fluticasone propionate (FLONASE) 50 MCG/ACT nasal spray 2 sprays by Nasal route daily. 16 g 5 ??? Szxpmigvbfi-Mdxrmtzey-Twgnsx (TRELEGY ELLIPTA) 100-62.5-25 MCG/ACT AEROSOL POWDER, BREATH [...] MOUTH EVERY DAY IN THE MORNING ??? semaglutide (OZEMPIC) 2 MG/1.5ML injection (PEN) [...] PND. Gastrointestinal: Negative. Genitourinary: Negative. Musculoskeletal: Negative. Objective: Filed Vitals: 11/30/22 1414 11/30/22 1512 BP: (!) 140/83 (!) 155/84 Pulse: 80 Resp: 18 Temp: 97.6 ??F (36.4 ??C) TempSrc: Temporal SpO2: 99% Weight: 130 kg (286 lb 9.6 oz) Height: 5' 3.5 (1.613 m) Body mass index is 49.97 kg/m??. General alert, cooperative, no distress HEENT [...] turgor normal. No rashes or lesions appreciated. Breast exam: The presence of a tree loader meat Michele Preciado did perform a breast exam on patient. Tenderness to palpationof the left breast however without any evidence of erythema Neurologic No focal deficits, motor strength is grossly normal and symmetric Psych Normal mood and affect MSK No synovitis, no bony tenderness, no joint effusions Lymph No cervical or supraclavicular adenopathy Assessment and Plan: Encounter Diagnose(s) ICD-10-CM ICD-9-CM SNOMED CT(R) 1. Left-sided chest pain R07.9 786.50 LEFT SIDED CHEST PAIN EKG WELCHALLEN ACQUIRED CKMB PROFILE (CK,MB) (SMD/MOHINDER ONLY) CKMB PROFILE (CK,MB) (SMD/MOHINDER ONLY) 2. Breast pain, left N64.4 611.71 PAIN OF LEFT BREAST MG DIAGNOSTIC LUCINA DIGI US BREAST RT BIRAD LTD US BREAST LT COMP ketorolac (TORADOL) injection 60 mg celecoxib (CELEBREX) 200 MG capsule 1. Left-sided chest pain - EKG WELCHALLEN ACQUIRED - CKMB PROFILE (CK,MB) (SMD/MOHINDER ONLY); Future - CKMB PROFILE (CK,MB) (SMD/MOHINDER ONLY) - EKG reviewed and reassuring 2. Breast pain, left - MG DIAGNOSTIC LUCINA DIGI - US BREAST RT BIRAD LTD; Future - US BREAST LT COMP; Future - ketorolac (TORADOL) injection 60 mg - celecoxib (CELEBREX) 200 MG capsule; Take 1 capsule (200 mg total) by mouth daily. Dispense: 10 capsule; Refill: 0 Counseling given: Yes Tobacco comments: counseled by Dr Naate I personally spent a total of 30 minutes on the day of the encounter. This includes yfij-zh-tibk and art-myof-gq-face time I provided on the day of [...] was at least in part performed using [employer] and there may be some inherent flaws in this consumer insight manager due to the nature of this program. Tracy Olivares MD Internal Medicine [facility], [facility]. documented in this encounter Plan of Treatment Upcoming Encounters Date Type Department Care Team (Late st Contact Info) Description 10/03/2024 11:00 AM GARMENT SUPERVISOR Office Visit [facility] Medical [facility] Pulmonology Specialty Clinic - [address] [address] Nathan Baig MD [address] [place] [address] 11/14/2024 10:20 AM GARMENT SUPERVISOR Office Visit [facility] Multispecialty Care - [place] [address] [address] [place] [address] Tracy Olivares MD [address] [place] [address] Scheduled Orders Name Type Priority Associated Diagnoses Orde r Schedule MG DIAGNOSTIC LUCINA DIGI MAMMO Routine Breast pain, left Ordered: 11/30/2022 documented as of this encounter Procedures Procedure Name Priority Date/Time Associated Diagnosis Comments CKMB PROFILE (CK,MB) Routine 11/30/2022 3:07 PM CDT Left-sided chest pain ELECTROCARDIOGRAM (NON MIDMARK ACQUIRED) Routine 11/30/2022 2:55 PM CDT Left-sided chest pain documented in this encounter Results * CKMB PROFILE (CK,MB) (SMD/MOHINDER ONLY) (11/30/2022 3:07 PM CDT) TOTAL CK 119 29 - 143 U/L [employer] [facility] CK MB TNP ng/mL [employer] [facility] Comment: TEST NOT PERFORMED No suitable specimen received. Please review the test requirements at [email or web address] 11/30/2022 3:07 PM CDT 12/01/2022 8:19 AM CDT Narrative Resulting Agency Comment Performing Organization Information: ?Site ID: [place] ?Name: [facility] ?Address: [address] [place] [address] ?Director: Mahin Mckeon MD Tracy Olivares MD LABORATORY Final Result [employer] DEEPTI - TYRONE CABAN [employer] [facility] [id number] [place] [address] [place] [address], * EKG WELCHALLEN ACQUIRED (11/30/2022 2:55 PM CDT) 11/30/2022 2:55 PM CDT Narrative [facility] RAD - 11/30/2022 3:23 PM CDT ?[facility] ?[address] [place] [address] ? Test Date: ?2022-11-30 Pat Name: ? KEEGAN CRANDALL ? Department: ?? 171 ? Room: ? Gender: ? Female ? Master Ship: ?? : ?1955 ? Requested By: TRACY OLIVARES Order Number: [id number] ?Reading MD: ?? Tracy Olivares ? Measurements Intervals ?Byram ? Rate: ? 67 ? P: ?30 AZ: ? 161 ?QRS: ?-15 QRSD: ? 93 ? T: ?15 QT: ? 376 ? QTc: ?398 ? Interpretive Statements SINUS RHYTHM Procedure Note Tracy Olivares MD - 11/30/2022 [facility] [address] [place] [address] Test Date: 2022-11-30 Pat Name: KEEGAN CRANDALL Department: 171 Room: Gender: Female Master Ship: : 1955 Requested By: TRACY OLIVARES Order Number: [id number] Reading MD: Tracy Olivares Measurements Intervals Byram Rate: 67 P: 30 AZ: 161 QRS: -15 QRSD: 93 T: 15 QT: 376 QTc: 398 Interpretive Statements SINUS RHYTHM us Tracy Olivares MD PROCEDURES-ORDERABLE NO CHARGE F inal Result [facility] documented in this encounter Visit Diagnoses Diagnosis Left-sided chest pain- Primary Breast pain, left Mastodynia documented in this encounter Administered Medications Inactive Administered Medications - up to 3 most recent administrations Medication Order MAR Action Action Date Dose Rate Site ketorolac (TORADOL) injection 60 mg 60 mg, Intramuscular, Once, 1 dose, On Tue11/30/22 at 1530Indications:Breast pain, left Given 11/30/2022 3:16 PM CDT 60 mg Right Deltoid documented in this encounter Additional Health Concerns Assessment Noted Time PHQ-9 Depression Total Score: 5 01/06/20 22 10:48 AM CDT documented as of this encounter Care Teams Undercar Specialist Relationship Specialty Start Date End Date Tracy Olivares MD [address] [facility] [address] [place] [address] PCP - General INTERNAL MEDICINE 01/02/21 Nathan Baig MD [address] [address] Consulting Physician Internal Medicine Pulmonary Disease 09/16/21 documented as of this encounter
--- OUTSIDE RECORDS SUMMARY | 2024-09-07 05:24 | XMS_ITS | Encounter Summary ---
Author Organization [facility] - [facility] Address [address] [place] [address]. [place], [place] [address] [place] [address] Care Team Providers Care Cable Mock Up Assembler Name Role Phone Tracy Olivares MD Primary Care Provider [phone] Nathan Baig MD Unavailable [phone] Reason for Visit * Reason Onset Date Comments Appointment Request 11/03/2022 AWV schedule d Encounter Details Date Type Department Care Team (Late st Contact Info) Description 11/03/2022 Telephone [facility] Medical Group Multispecialty Care - [place] [address] [place] [address] [address] [place] [address] Tracy Olivares MD [address] [place] [address] 157 [place] [address] Appointment Request (AWV scheduled) Social History Tobacco Use Types Packs/Day Years [...] Coronavirus/COVID-19? No / Unsure 10/29/2022 9:44 AM CREDIT INTERVIEWER documented as of this encounter Progress Notes * Alexandra Waggoner RN - 11/03/2022 2:42 PM CST Telephone call placed to patient. Nurse introduced herself and explained her role as the Wellness Visit Nurse. Patient agreed to schedule Annual Wellness Visit for 11/24 IT INTERVIEWER documented in this encounter Plan of Treatment Upcoming Encounters Date Type Department Care Team (Late st Contact Info) Description 10/03/2024 11:00 AM CREDIT INTERVIEWER Office Visit [facility] Medical [facility] Pulmonology Specialty Clinic - [address] [address] Nathan Baig MD 3 [facility] [address] [place] [address] 11/14/2024 10:20 AM CREDIT INTERVIEWER Office Visit [facility] Multispecialty Care - [place] [address] [address] [place] [address] Tracy Olivares MD [address] [place] [address] documented as of this encounter Visit Diagnoses Not on filedocumented in this encounter Additional Health Concerns Assessment Noted Time PHQ-9 Depression Total Score: 5 01/06/20 22 10:48 AM CDT documented as of this encounter Care Teams Cable Mock Up Assembler Relationship Specialty Start Date End Date Tracy Olivares MD [address] [place] [address] PCP - General INTERNAL MEDICINE 01/02/21 Nathan Baig MD 3 [facility] [address] [place] [address] Consulting Physician Internal Medicine Pulmonary Disease 09/16/21 documented as of this encounter
--- OUTSIDE RECORDS SUMMARY | 2024-09-07 05:24 | XMS_ITS | Encounter Summary ---
Author Organization [facility] - [facility] Address [address] [place] [address]. [place], [place] [address] [place] [address] Care Team Providers Care Small Business Sales Representative Name Role Phone Tracy Olivares MD Primary Care Provider [phone] Nathan Baig MD Unavailable [phone] Reason for Visit * Reason Onset Date Comments Quality Gap Closure 11/23/2022 Encounter Details Date Type Department Care Team (Latest Contact Info) Description 11/23/2022 Patient Outreach [facility] Medical Group Multispecialty Care - [address] [place] [address] Nicole Cowart MA Quality Gap Closure Social History Tobacco Use [...] Coronavirus/COVID-19? No / Unsure 10/29/2022 9:44 AM MASTER MECHANIC documented as of this encounter Progress Notes * Nicole Cowart MA - 11/23/2022 4:45 PM CDT I am a patient quality advocate calling this patient on behalf of the virtual stand work team to assess the below quality gaps. If you need to contact me directly- my number is [phone]. Preventive Screenings: Breast Cancer Screening: Up to Date Notes: UTD Colorectal Cancer Screening: Up to Date Notes: UTD Diabetic Eye Exam: Up to Date Notes: UTD Falls Risk Screening: Gap Closed Notes: Gap closed Tobacco Cessation: N/A Notes: NA Labs: BMP/CMP: Up to Date Notes: UTD-07/02/2022 Hemoglobin A1c: Up to Date Notes: UTD-5.7 on 07/02/2022 Lipid: Up to Date Notes: UTD-07/02/2022 Urine Albumin-Creatinine Ratio: Up to Date Notes: UTD-01/05/2022 Immunizations: Influenza: Up to Date Notes: UTD Pneumococcal: Up to Date Notes: UTD Shingles: Needs Follow Up Notes: [facility] documented in this encounter Plan of Treatment Upcoming Encounters Date Type Department Care Team (Late st Contact Info) Description 10/03/2024 11:00 AM MASTER MECHANIC Office Visit [facility] Medical [facility] Pulmonology Specialty Clinic - [address] [address] Nathan Baig MD [address] [place] [address] 11/14/2024 10:20 AM MASTER MECHANIC Office Visit [facility] Medical Group Multispecialty Care - [place] [address] [address] [place] [address] Tracy Olivares MD [address] [place] [address] documented as of this encounter Visit Diagnoses Not on filedocumented in this encounter Additional Health Concerns Assessment Noted Time PHQ-9 Depression Total Score: 5 01/06/20 10:48 AM CDT documented as of this encounter Care Teams Small Business Sales Representative Relationship Specialty Start Date End Date Tracy Olivares MD [address] [facility] [address] [place] [address] PCP - General INTERNAL MEDICINE 01/02/21 Nathan Baig MD [address] [address] Consulting Physician Internal Medicine Pulmonary Disease 09/16/21 documented as of this encounter
--- OUTSIDE RECORDS SUMMARY | 2024-09-07 05:24 | XMS_ITS | Encounter Summary ---
Author Organization [facility] - [facility] Address [address] [place] [address]. [place] [id number] [place] [address] Care Team Providers Care Night Custodian Name Role Phone Tracy Olivares MD Primary Care Provider [phone] Nathan Baig MD Unavailable Reason for Visit * Reason Onset Date Comments Appointment Request 12/08/2022 AWV reschedu led Encounter Details Date Type Department Care Team (Late st Contact Info) Description 12/08/2022 Telephone [facility] Medical Group Multispecialty Care - [place] [address] [place] [address] [address] [place] [address] [place] [address] [place] [address] [address] [place], [place] [phone] Appointment Request (AWV rescheduled) Social History Tobacco Use Types Packs/Day Years [...] Progress Notes * Alexandra Waggoner RN - 12/08/2022 10:01 AM CDT Patient was a No Show for previously scheduled AWV. Telephone call placed to patient. Nurse introduced herself and explained her role as the Wellness Visit Nurse. Patient states she was unable to keep previous appointment because she is having troublewith her car agreed to re-schedule Annual Wellness Visit for 01/05/2023. documented in this encounter Plan of Treatment Upcoming Encounters Date Type Department Care Team (Late st Contact Info) Description 10/03/2024 11:00 AM FIRER BISQUE KILN Office Visit [facility] Medical Group Pulmonology Specialty Clinic - [address] [address] Nathan Baig MD [address] [place] [address] 11/14/2024 10:20 AM FIRER BISQUE KILN Office Visit [place] [facility] Multispecialty Care - [place] [address] [address] [place] [address] Tracy Olivares MD [address] [place] [address] documented as of this encounter Visit Diagnoses Not on filedocumented in this encounter Additional Health Concerns Assessment Noted Time PHQ-9 Depression Total Score: 5 01/06/20 22 10:48 AM CDT documented as of this encounter Care Teams Night Custodian Relationship Specialty Start Date End Date Tracy Olivares MD [address] [place] [address] PCP - General INTERNAL MEDICINE 01/02/21 Nathan Baig MD [address] [address] Consulting Physician Internal Medicine Pulmonary Disease 09/16/21 documented as of this encounter
--- OUTSIDE RECORDS SUMMARY | 2024-09-07 05:24 | XMS_ITS | Encounter Summary ---
Author Organization [facility] Address [address] [place] [address]. [place], [place] [address] [place] [address] Care Team Providers Care Hydro Station Supervisor Name Role Phone Tracy Olivares MD Primary Care Provider [phone] Nathan Baig MD Unavailable [phone] Encounter Details Date Type Department Care Team (Latest Contact Info) Description 01/24/2023 Travel Social History Tobacco Use Types Packs/Day [...] st Contact Info) Description 10/03/2024 11:00 AM RECORD CHANGER Office Visit [facility] Pulmonology Specialty Clinic - [address] [place] [address] Nathan Baig MD [address] [address] 11/14/2024 10:20 AM RECORD CHANGER Office Visit [facility] Medical Group Multispecialty Care - [place] [address] [address] [place] [address] Tracy Olivares MD [address] [address] documented as of this encounter Visit Diagnoses Not on filedocumented in this encounter Additional Health Concerns Assessment Noted Time PHQ-9 Depression Total Score: 11 01/07/ 023 1:30 PM CDT documented as of this encounter Care Teams Hydro Station Supervisor Relationship Specialty Start Date End Date Tracy Olivares MD [address] [place] [address] PCP - General INTERNAL MEDICINE 01/02/21 Nathan Baig MD [address] [facility] [address] [place] [address] Consulting Physician Internal Medicine Pulmonary Disease 09/16/21 documented as of this encounter
--- OUTSIDE RECORDS SUMMARY | 2024-09-07 05:24 | XMS_ITS | Encounter Summary ---
Author Organization [facility] Address [address] [place] [address]. [place], [place] [address] [place] [address] Care Team Providers Care Finisher Wallboard And Plasterboard Name Role Phone Tracy Olivares MD Primary Care Provider [phone] Nathan Baig MD Unavailable [phone] Reason for Visit * Reason Onset Date Comments Question 07/05/2022 Encounter Details Date Type Department Care Team (Late st Contact Info) Description 07/05/2022 Telephone [facility] Medical Group Multispecialty Care - [facility] [address] [facility] [address] [place] [address] Nathan Baig MD 3 [facility] [address] [place], [place] [id number] Question Social History Tobacco Use Types Packs/Day Years [...] of this encounter Progress Notes * Lynette Tinoco MA - 07/06/2022 1:42 PM CDTAddended by: LYNETTE TINOCO on: 07/06/2022 01:42 PM Modules accepted: Orders * Lynette Tinoco MA - 07/06/2022 1:41 PM CDT Called and informed patient. She voiced understanding Script sent * Nathan Baig MD - 07/06/2022 12:44 PM CDT Okay to send nystatin swish and swallow 500,000 units 4 times daily for 7 days. If this is not improving she will need to be seen. Nathan Baig MD * Lynette Tinoco MA - 07/06/2022 12:35 PM CDT Called and spoke with patient and she stated that she has had this before and was told it was thrush. She is asking for the swish and swallow medication. She stated that she does not have sores in her mouth area just sore and her throat is raw and causing her to have to strain to talk. * Odilia Castellano - 07/05/2022 11:52 AM CDT Patient called today and saying she is having hoarseness in throat. Her voice keeps going in an out. Please call her to discuss. documented in this encounter Plan of Treatment Upcoming Encounters Date Type Department Care Team (Late st Contact Info) Description 10/03/2024 11:00 AM PATROL SUPERVISOR Office Visit [facility] Medical [facility] Pulmonology Specialty Clinic - [address] [address] Nathan Baig MD [address] [address] 11/14/2024 10:20 AM PATROL SUPERVISOR Office Visit [facility] Multispecialty Care - [place] [address] [address] [place] [address] Tracy Olivares MD [address] [place] [address] documented as of this encounter Visit Diagnoses Diagnosis Thrush- Primary Candidiasis of mouth documented in this encounter Additional Health Concerns Assessment Noted Time PHQ-9 Depression Total Score: 5 01/06/20 10:48 AM CDT documented as of this encounter Care Teams Finisher Wallboard And Plasterboard Relationship Specialty Start Date End Date Tracy Olivares MD [address] [place] [address] PCP - General INTERNAL MEDICINE 01/02/21 Nathan Baig MD [address] [address] Consulting Physician Internal Medicine Pulmonary Disease 09/16/21 documented as of this encounter
--- OUTSIDE RECORDS SUMMARY | 2024-09-07 05:25 | XMS_ITS | Encounter Summary ---
Author Organization [facility] Address [address] [place] [address]. [place], [place] [address] [place] [address] Care Team Providers Care Underground Roof Bolter Name Role Phone Tracy Olivares MD Primary Care Provider [phone] Nathan Baig MD Unavailable [phone] Reason for Visit * Reason Comments Dilated Eye Exam (SCAN) Encounter Details Date Type Department Care Team ([facility] Contact Info) Description 01/19/2022 Scan HEALTH INFO SRVCS Scanned, Documents Dilated Eye Exam (SCAN) Social History Tobacco [...] suspected to have Coronavirus/COVID-19? No / Unsure 01/19/2022 10:36 AM CDT documented as of this encounter Plan of Treatment Upcoming Encounters Date Type Department Care Team ([facility] Contact Info) Description 10/03/2024 11:00 AM SENIOR ACCOUNTS PAYABLE CLERK Office Visit [facility] - [address] [address] Nathan Baig MD [address] [address] 11/14/2024 10:20 AM SENIOR ACCOUNTS PAYABLE CLERK Office Visit [facility] Multispecialty Care - [place] [address] [address] [place] [address] Tracy Olivares MD [address] [place] [address] documented as of this encounter Procedures Procedure Name Priority Date/Time Associated Diagnosis Comments DIABETIC RETINOPATHY EXAM (NEGATIVE)(SCAN ORDER) Routine 01/19/2022 documented in this encounter Results * DIABETIC RETINOPATHY EXAM (NEGATIVE)(SCAN) (01/19/2022) us Documents Scanned SCANNING Final Result [facility] documented in this encounter Visit Diagnoses Not on filedocumented in this encounter Additional Health Concerns Infection Onset Date Last Indicated Resolved Time COVID-19 Rule Out 01/19/2022 01/19/2022 01/19/2022 12:59 PM CDT COVID-19 Confirmed 01/19/2022 01/19/2022 12:32 AM CDT Assessment Noted Time PHQ-9 Depression Total Score: 5 01/06/20 22 10:48 AM CDT documented as of this encounter Care Teams Underground Roof Bolter Relationship Specialty Start Date End Date Tracy Olivares MD [address] [place] [address] PCP - General INTERNAL MEDICINE 01/02/21 Nathan Baig MD [address] [address] Consulting Physician Internal Medicine Pulmonary Disease 09/16/21 documented as of this encounter
--- OUTSIDE RECORDS SUMMARY | 2024-09-07 05:25 | XMS_ITS | Encounter Summary ---
Author Organization [facility] - [facility] Address [address] [place] [address]. [place], [place] [address] [place] [address] Care Team Providers Care Pleat Taper Name Role Phone Tracy Olivares MD Primary Care Provider [phone] Nathan Baig MD Unavailable [phone] Reason for Visit * Reason Onset Date Comments Results 02/10/2022 Encounter Details Date Type Department Care Team (Late st Contact Info) Description 02/10/2022 Telephone [facility] Medical [facility] Multispecialty Care [place] [address] [place] [address] [address] [place] [address] [place] [address] [place] [address] [address] [place] [address] Results Social History Tobacco Use [...] Progress Notes * Tracy Olivares MD - 02/10/2022 6:59 PM CDT I received patient DM eye exam done on 01/19/2022. No DM retinopathy no edema of both eyes. Scanned. documented in this encounter Plan of Treatment Upcoming Encounters Date Type Department Care Team (Late st Contact Info) Description 10/03/2024 11:00 AM DICE MANAGER Office Visit [facility] Medical [facility] - [address] [place] [address] [address] Nathan Baig MD 3 [facility] [address] [place] [address] 11/14/2024 10:20 AM DICE MANAGER Office Visit [facility] Medical [facility] Multispecialty Care - [place] [address] [address] [place] [address] Tracy Olivares MD [address] [address] documented as of this encounter Visit Diagnoses Not on filedocumented in this encounter Additional Health Concerns Infection Onset Date Last Indicated Resolved Time COVID-19 Confirmed 01/19/2022 01/19/2022 12:32 AM CDT Assessment Noted Time PHQ-9 Depression Total Score: 5 01/06/20 22 10:48 AM CDT documented as of this encounter Care Teams Pleat Taper Relationship Specialty [place] [address] [place] [address] [address] [place] [address] PCP - General INTERNAL MEDICINE 01/02/21 Nathan Baig MD 3 [place] [address] Consulting Physician Internal Medicine Pulmonary Disease 09/16/21 documented as of this encounter
--- OUTSIDE RECORDS SUMMARY | 2024-09-07 05:25 | XMS_ITS | Encounter Summary ---
Author Organization [facility] - [facility] Address [address] [place] [address]. [place] [id number] [place] [address] Care Team Providers Care Eligibility Manager Name Role Phone Tracy Olivares MD Primary Care Provider Nathan Baig MD Unavailable [phone] Reason for Visit * Reason Comments Hyperlipidemia Weight Problem Encounter Details Date Type Department Care Team (Latest Contact Info) Description 06/29/2022 10:40 AM CDT Office Visit [facility] Medical Group Multispecialty Care - [place] [address] [address] [place] [address] Tracy Olivares MD [address] [place] [address] 157 [place] [address] Hyperlipidemia; Weight Problem Social History Tobacco Use Types Packs/Day [...] Sign Reading Time Taken Comments Blood Pressure 133/82 06/29/2022 10:47 AM CDT Pulse 95 06/29/2022 10:47 AM CDT Temperature 36.4 ??C (97.5 ??F) 06/29/2022 10:47 AM C DT Respiratory Rate 18 06/29/2022 10:47 AM CDT Oxygen Saturation 99% 06/29/2022 10:47 AM CDT Inhaled Oxygen Concentration - - Weight 128.4 kg (283 lb) 06/29/2022 10:47 AM CDT Height 161.3 cm (5' 3.5 ) 06/29/2022 10:47 AM CD T Body Mass Index 49.34 06/29/2022 10:47 AM CDT documented in this encounter Patient Instructions * Patient Instructions* Tracy Olivares MD - 06/29/2022 10:40 AM CDT Follow up in 8 weeks for your weight loss medication. * Attachments The following attachments cannot be sent through Care Everywhere. * Weight Loss Tips (Romansh) documented in this encounter Progress Notes * Tracy Olivares MD - 06/29/2022 10:40 AM CDTSummary: Follow-up notes Images from the original note were not included. Internal Medicine Outpatient Progress Note CC: Hyperlipidemia and Weight Problem HPI: Keegan Amaya is a 66-year-old female who presents for follow-up for weight issues, hyperlipidemiaand prediabetes. Currently patient is prescribed atorvastatin 20 mg nightly. She tells me she is taking her medication as directed. She has underlining prediabetes. Has not tolerated metformin in the past due to gastrointestinal side effects. I recently did prescribe Januvia 100 mg daily and patient tells me she has been taking her medication as directed. No concerns for muscle cramps on her current dose of statin. Patient is also here for follow-up for weight medication i.e. phentermine. Patient had expressed interest in initiating weight loss medication. This is the fourth visit for phentermine refill. She has been taking medication every day instead. Weight is down from 285 pounds to 283 pounds. Toleratingmedications without any side effects such as chest tightness, shortness of breath, palpitations, ankle swelling, orthopnea, paroxsymal nocturnal dyspnea or persistent constipation. Currently walking to exercising but slacked over the last few weeks and plans to resume. No prior history of weight loss surgery. Problem List Patient Active Problem List Diagnosis [...] History Tobacco Use ??? Smoking status: Former Smoker Packs/day: 1.50 Years: 30.00 Pack years: 45.00 Types: Cigarettes Quit date: 09/12/1984 Years since quittin.8 ??? Smokeless tobacco: Never Used ??? Tobacco comment: counseled by Dr Olivares Vaping Use ??? Vaping Use: Never used Substance Use Topics ??? Alcohol use: Not Currently ??? Drug use: Not Currently Medications: Outpatient Medications Marked as Taking for the 06/29/22 encounter (Office Visit) with Tracy Olivares MD [...] with itching.) 28 g 1 ??? escitalopram 10 MG tablet Take 1 tablet (10 mg total) by mouth daily. 90 tablet 2 ??? fluticasone propionate (FLONASE) 50 MCG/ACT nasal spray 2 sprays by Nasal route daily. 16 g 5 ??? Fkmuqvedhov-Cgowqhmlh-Nnftsl (TRELEGY ELLIPTA) 100-62.5-25 MCG/ACT AEROSOL POWDER, BREATH ACTIVATED Inhale 1 puff into the lungs daily. 60 each 5 ??? gabapentin 100 MG capsule Take 2 capsules (200 mg total) by mouth 3 (three) times daily. 180 capsule 1 ??? losartan-hydroCHLOROthiazide 100-12.5 MG Tab Take 1 tablet by mouth daily. 90 tablet 3 ??? meclizine 12.5 MG tablet Take 1 tablet (12.5 mg total) by mouth nightly as needed. 20 tablet 0 ??? metoclopramide 5 MG tablet Take 1 tablet (5 mg total) by mouth 3 (three) times a day. 20 tablet0 ??? OMEPRAZOLE 20 MG capsule TAKE 2 CAPSULES BY MOUTH EVERY DAY 180 capsule 1 ??? ondansetron 4 MG tablet Take 1 tablet (4 mg total) by mouth every 8 (eight) hours as needed forNausea. 20 tablet 0 ??? ONETOUCH VERIO test strip ??? phentermine (ADIPEX-P) 37.5 MG tablet Take 1 tablet (37.5 mg total) by mouth every morning before breakfast for 30 days. 30 tablet 0 ??? SITagliptin (JANUVIA) 100 MG tablet Take [...] ??? Propoxyphene Unknown Review of Systems Constitutional: Positive for weight loss (intentional). Negative for chills, diaphoresis, fever andmalaise/fatigue. HENT: Negative. Eyes: Negative. Respiratory: Negative. Cardiovascular: Negative for chest pain, palpitations, orthopnea, claudication, leg swelling and PND. Gastrointestinal: Negative. Genitourinary: Negative. Musculoskeletal: Negative. Neurological: Negative. Psychiatric/Behavioral: Negative. Objective: Filed Vitals: 06/29/22 1047 BP: 133/82 Pulse: 95 Resp: 18 Temp: 97.5 ??F (36.4 ??C) TempSrc: Temporal SpO2: 99% Weight: 128.4 kg (283 lb) Height: 5' 3.5 (1.613 m) Body mass index is 49.34 kg/m??. General alert, cooperative, no distress HEENT [...] Encounter Diagnose(s) ICD-10-CM ICD-9-CM SNOMED CT(R) 1. Mixed hyperlipidemia E78.2 272.2 MIXED HYPERLIPIDEMIA VENIPUNC ARM DRAW LIPID PANEL COMPREHENSIVE METABOLIC PANEL LIPID PANEL COMPREHENSIVE METABOLIC PANEL atorvastatin (LIPITOR) 20 MG tablet 2. Class 3 severe obesity due to excess calories without serious comorbidity with body mass index (BMI) of 45.0 to 49.9 in adult (CMS/HCC) E66.01 278.01 SEVERE OBESITY phentermine (ADIPEX-P) 37.5 MG tablet Z68.42 V85.42 HEMOGLOBIN, GLYCOSYLATED HEMOGLOBIN, GLYCOSYLATED 3. FAISAL on CPAP G47.33 327.23 OBSTRUCTIVE SLEEP APNEA SYNDROME Rgwkgbjpbfe-Uuhmscyxk-Eykfme (TRELEGYELLIPTA) 100-62.5-25 MCG/ACT AEROSOL POWDER, BREATH ACTIVATED Z99.89 V46.8 4. Abnormal finding of blood chemistry, unspecified R79.9 790.6 BLOOD CHEMISTRY ABNORMAL HEMOGLOBIN, GLYCOSYLATED HEMOGLOBIN, GLYCOSYLATED 5. Prediabetes R73.03 790.29 PREDIABETES SITagliptin (JANUVIA) 100 MG tablet 1. Mixed hyperlipidemia - patient encouraged to continue with medications; she is tolerating medication with no side effects - VENIPUNC ARM DRAW - LIPID PANEL; Future - COMPREHENSIVE METABOLIC PANEL; Future - LIPID PANEL - COMPREHENSIVE METABOLIC PANEL - continue atorvastatin (LIPITOR) 20 MG tablet; Take 1 tablet (20 mg total) by mouth nightly at bedtime. at bedtime Dispense: 90 tablet; Refill: 1 2. Class 3 severe obesity due to excess calories without serious comorbidity with body mass index (BMI) of 45.0 to 49.9 in adult ([facility]) - this is her fourth refill for medication; taking medication daily instead of alternate days and tolerating well - Lifestyle modification including dietary changes to include less saturated fats, lean meat, more vegetables and exercise at least 30 min every day.\ - continue phentermine (ADIPEX-P) 37.5 MG tablet; Take 1 tablet (37.5 mg total) by mouth every morning before breakfast for 30 days. Dispense: 30 tablet; Refill: 0 - HEMOGLOBIN, GLYCOSYLATED; Future - HEMOGLOBIN, GLYCOSYLATED 3. FAISAL on CPAP - CPAP compliance encouraged; she will like refill on medication - Ndyjeawxfab-Eqobandwi-Nataev (TRELEGY ELLIPTA) 100-62.5-25 MCG/ACT AEROSOL POWDER, BREATH ACTIVATED; Inhale 1 puff into the lungs daily. Dispense: 60 each; Refill: 5 4. Abnormal finding of blood chemistry, unspecified - HEMOGLOBIN, GLYCOSYLATED; Future - HEMOGLOBIN, GLYCOSYLATED - medication compliance discussed; continue with Januvia 100 mg daily- unable to tolerate other medications including metformin and GLP1s - Lifestyle modification including dietary changes to include less saturated fats, lean meat, more vegetables and exercise at least 30 min every day. Counseling given: Yes Comment: counseled by Dr Olivares I spent 30 minutes today reviewing the patient's medical record, [...] was at least in part performed using [employer] speak and there may be some inherent flaws in this pm technician due to the nature of this program. Tracy Olivares MD Internal Medicine [facility], [facility] [place] [facility]. documented in this encounter Plan of Treatment Upcoming Encounters Date Type Department Care Team (Late st Contact Info) Description 10/03/2024 11:00 AM ASSEMBLIES AND INSTALLATIONS INSPECTOR Office Visit [facility] Medical [facility] Pul[facility]ology Specialty Clinic - [place] [address] [place] [address] Nathan Baig MD [address] [address] 11/14/2024 10:20 AM ASSEMBLIES AND INSTALLATIONS INSPECTOR Office Visit [facility] Medical [facility] Multispecialty Care - [place] [address] [place] [address] Tracy Olivares MD [address] [facility] [address] [place] [address] documented as of this encounter Procedures Procedure Name Priority Date/Time Associated Diagnosis Comments HEMOGLOBIN, GLYCOSYLATED Routine 07/02/2022 9:16 AM CDT Class 3 severe obesity due to excess calories without serious comorbidity with body mass index (BMI) of 45.0 to 49.9 in adult ([facility]) Abnormal finding of blood chemistry, unspecified COMPREHENSIVE METABOLIC PANEL Routine 07/02/2022 9:16 AM CDT Mixed hyperlipidemia LIPID PANEL Routine 07/02/2022 9:16 AM CDT Mixed hyperlipidemia VENIPUNC ARM DRAW Routine 06/29/2022 11: 20 AM CDT Mixed hyperlipidemia documented in this encounter Results * (ABNORMAL) HEMOGLOBIN, GLYCOSYLATED (07/02/2022 9:16 AM CDT) HGB A1C 5.7(H) <5.7 % of total Hgb [facility] Comment: For someone without known diabetes, a [...] A1c for diagnosis of diabetes for children. 07/02/2022 9:16 AM CDT 07/03/2022 7:53 AM CDT Tracy Olivares MD LABORATORY Final Result [facility] [address] [address] [place] [id number] * (ABNORMAL) COMPREHENSIVE METABOLIC PANEL (07/02/2022 9:16 AM CDT) [facility] GLUCOSE 99 65 - 99 mg/dL [facility] Comment: ? Fasting reference interval BUN 11 7 - 25 mg/dL [facility] CREATININE S/P/B 0.78 0.50 - 1.05 mg/dL [facility] GFR ESTIMATE 84 > OR = 60 mL/min/1. 73m2 [facility] Comment: The eGFR is based on the CKD-EPI 2020 equation. To calculate the new eGFR from a previous Creatinine or Cystatin C result, go to https://www.kidney.org/professionals/ kdoqi/gfr%5Fcalculator BUN CREATININE RATIO NOT APPLICABLE - (calc) [facility] SODIUM S/P/B 143 135 - 146 mmol/L [facility] POTASSIUM S/P/B 4.0 3.5 - 5.3 mmol/L [facility] CHLORIDE S/P/B 105 98 - 110 mmol/L [facility] CO2 30 20 - 32 mmol/L [facility] CALCIUM S/P/B 9.3 8.6 - 10.4 mg/dL [facility] TOTAL PROTEIN S/P/B 6.5 6.1 - 8.1 g/dL [facility] ALBUMIN S/P/B 3.5(L) 3.6 - 5.1 g/dL [facility] GLOBULIN 3.0 1.9 - 3.7 g/dL (calc) [facility] ALBUMIN/GLOBULI N RATIO 1.2 1.0 - 2.5 (calc) [facility] BILIRUBIN TOTAL S/P/B 0.6 0.2 - 1.2 mg/dL [facility] ALKALINE PHOSPHATASE S/P/B 146 37 - 153 U/L [facility] AST 10 10 - 35 U/L [facility] ALT 9 6 - 29 U/L [facility] 07/02/2022 9:16 AM CDT 07/03/2022 7:53 AM CDT Tracy Olivares MD LABORATORY Final Result [facility] [address] [address] Fig[address], JACK[place] [id number] * LIPID PANEL (07/02/2022 9:16 AM CDT) CHOLESTEROL 116 <200 mg/dL [facility] HDL 63 > OR = 50 mg/dL [facility] TRIGLYCERIDES 80 <150 mg/dL [facility] LDL (CALCULATED) 37 mg/dL (calc) [facility] Comment: Reference range: <100 Desirable range <100 mg/dL for primary prevention; ?? <70 mg/dL for patients with CHD or diabetic patients with > or = 2 CHD risk factors. LDL-C is now calculated using the Buddy-Akhil calculation, which is a validated novel method providing better accuracy than the Friedewald equation in the estimation of LDL-C. Buddy ANAND et al. PORTER. 2013;310(19): 3776-2693 (http://education.Primekss.Browns-Hall Gardner/faq/YPS032) CHOL/HDL RATIO 1.8 <5.0 (calc) [facility] NON HDL CHOLESTEROL 53 <130 mg/dL (calc) [facility] Comment: For patients with diabetes plus 1 major ASCVD risk factor, treating to a non-HDL-C goal of <100 mg/dL (LDL-C of <70 mg/dL) is considered a therapeutic option. 07/02/2022 9:16 AM CDT 07/03/2022 7:53 AM CDT Tracy Olivares MD LABORATORY Final Result [facility] [address] [place] [address] documented in this encounter Visit Diagnoses Diagnosis Mixed hyperlipidemia- Primary Class 3 severe obesity due to excess calories without serious comorbidity with body mass index (BMI) of 45.0 to 49.9 in adult ([facility]) FAISAL on CPAP Obstructive sleep apnea (adult) (pediatric) Abnormal finding of blood chemistry, unspecified Prediabetes Other abnormal glucose documented in this encounter Additional Health Concerns Assessment Noted Time PHQ-9 Depression Total Score: 5 01/06/20 10:48 AM CDT documented as of this encounter Care Teams Eligibility Manager Relationship Specialty Start Date End Date Tracy Olivares MD [address] [facility] [address] [place] [address] PCP - General INTERNAL MEDICINE 01/02/21 Nathan Baig MD [address] [address] Consulting Physician Internal Medicine Pulmonary Disease 09/16/21 documented as of this encounter
--- OUTSIDE RECORDS SUMMARY | 2024-09-07 05:25 | XMS_ITS | Encounter Summary ---
Author Organization [facility] Address [address] [place] [address]. [place], [place] [address] [place] [address] Care Team Providers Care Width Stripper Name Role Phone Tracy Olivares MD Primary Care Provider [phone] Nathan Baig MD Unavailable [phone] Encounter Details Date Type Department Care Team (Latest Contact Info) Description 04/23/2022 Scan HEALTH INFO SRVCS Scanned, Documents Social History Tobacco Use Types Packs/Day Years [...] suspected to have Coronavirus/COVID-19? No / Unsure 04/23/2022 10:19 AM CDT documented as of this encounter Plan of Treatment Upcoming Encounters Date Type Department Care Team ( Contact Info) Description 10/03/2024 11:00 AM PHOTOGRAPHER LITHOGRAPHIC Office Visit [facility] Pulmonology Specialty Clinic - [address] [place] [address] Nathan Baig MD [address] [address] 11/14/2024 10:20 AM PHOTOGRAPHER LITHOGRAPHIC Office Visit [facility] Multispecialty Care - [place] [address] [address] [place] [address] Tracy Olivares MD [address] [place] [address] documented as of this encounter Visit Diagnoses Not on filedocumented in this encounter Additional Health Concerns Assessment Noted Time PHQ-9 Depression Total Score: 5 01/06/20 10:48 AM CDT documented as of this encounter Care Teams Width Stripper Relationship Specialty Start Date End Date Tracy Olivares MD [address] [place] [address] PCP - General INTERNAL MEDICINE 01/02/21 Nathan Baig MD [address] [address] Consulting Physician Internal Medicine Pulmonary Disease 09/16/21 documented as of this encounter
--- OUTSIDE RECORDS SUMMARY | 2024-09-07 05:25 | XMS_ITS | Encounter Summary ---
Author Organization [facility] Address [address] [place] [address]. [place], [place] [id number] [place] [address] Care Team Providers Care Fitness Teacher Name Role Phone Tracy Olivares MD Primary Care Provider [phone] Bonnie Lema MD Unavailable [phone] Reason for Visit * Reason Comments Obstructive Sleep Apnea CPAP, wanting to try a different mask. * Consultation/Treatment (Routine) - Closed Specialty Diagnoses / Procedures Referred By Contac t Referred To Contact Internal Medicine Pulmonary Disease / SLEEP & RESPIRATORY CARE Diagnoses FOLLOW UP Tracy Olivares MD [address] [place] [address] Phone: tel: fax: Bonnie Lema MD [address] [address] Phone: tel: fax: Referral ID Status Reason Start Date Expiration Date V isits Requested Visits Authorized [id number] Closed Specialty Services 04/23/2022 04/23/2024 100 100 Encounter Details Date Type Department Care Team (Late st Contact Info) Description 04/23/2022 11:00 AM CDT Office Visit [facility] - [address] [address] Bonnie Lema MD [address] [address] Obstructive Sleep Apnea (CPAP, wanting to try a different mask. ) Social History Tobacco Use Types Packs/Day [...] Sign Reading Time Taken Comments Blood Pressure 124/74 04/23/2022 10:25 AM CDT Pulse 76 04/23/2022 10:25 AM CDT Temperature 36.5 ??C (97.7 ??F) 04/23/2022 10:25 AM C DT Respiratory Rate 12 04/23/2022 10:25 AM CDT Oxygen Saturation 97% 04/23/2022 10:25 AM CDT Inhaled Oxygen Concentration - - Weight 130.6 kg (288 lb) 04/23/2022 10:25 AM CDT Height 161.3 cm (5' 3.5 ) 04/23/2022 10:25 AM CD T Body Mass Index 50.22 04/23/2022 10:25 AM CDT documented in this encounter Patient Instructions * Patient Instructions* Bonnie Lema MD - 04/23/2022 11:00 AM CDT - Continue Trelegy 1 puff daily. Rinse gargle and spit after use - Continue albuterol as needed - Continue wearing her CPAP every night, we will submit orders to be to be able to try new machine - Work on weight loss, diet, exercise - Follow-up with me in 6 months, sooner if needed documented in this encounter Progress Notes * Bonnie Lema MD - 04/23/2022 11:00 AM CDTAddended by: BONNIE LEMA on: 04/23/2022 10:55 AM Modules accepted: Orders * Bonnie Lema MD - 04/23/2022 11:00 AM CDT She is [facility] History Chief Complaint Patient presents with ??? Obstructive Sleep Apnea CPAP, wanting to try a different mask. Referring provider: Tracy Olivares MD 04/23/2022 OV: She is doing well. Rarely [...] issue. 05/22/2021 OV: Keegan Amaya is a 66-year-old female with a past medical history of [...] Types: Cigarettes Quit date: 09/12/1984 Years since quittin.6 ??? Smokeless tobacco: Never Used ??? Tobacco [...] by mouth daily. 30 capsule ??? ciclopirox 0.77 % cream Apply topically 2 (two) times daily. Apply to affected nail for the next 4 weeks. 90 g 2 ??? diphenhydrAMINE-zinc (BENADRYL EXTRA STRENGTH) 2-0.1 % [...] Nasal route daily. 16 g 5 ??? gabapentin 100 MG capsule Take [...] as needed forNausea. 20 tablet 0 ??? pantoprazole EC 40 MG tablet Take 40 mg by mouth every morning. ??? SITagliptin (JANUVIA) 100 MG tablet Take 1 tablet (100 mg total) by mouth daily. 90 tablet 2 ??? tiZANidine 4 MG tablet Take 0.5 tablets (2 mg total) by mouth nightly at bedtime. at bedtime 90tablet 1 ??? traMADol 50 MG tablet Take 1 tablet (50 mg total) by mouth 2 (two) times daily as needed for Pain. Indications: Chronic Pain 60 tablet 0 ??? TRELEGY 100-62.5-25 MCG/INH AEROSOL POWDER, BREATH ACTIVATED Inhale 1 puff into the lungs daily. Rinse and spit after use 3 each 3 ??? Vitamin D, Cholecalciferol, 50 MCG (2000 UT) Cap Take 1,000 Units by mouth daily. 30 capsule ??? ONETOUCH VERIO test strip ??? phentermine (ADIPEX-P) 37.5 MG tablet Take 1 tablet (37.5 mg total) by mouth every morning before breakfast for 30 days. 30 tablet 0 No current facility-administered medications for this visit. Allergies Allergen Reactions ??? Propoxyphene Unknown Immunization History Administered Date(s) Administered ? ? Flucelvax Adult - >Age4 (Prefilled Syringe) 06/05/2019 ? ? Fluzone High Dose - >Age 65 (Prefilled Syringe) 06/08/2021 ??? Influenza 06/12/2013, 06/07/2014 ??? Influenza Adult (Generic) 06/12/2013, 06/07/2014, 06/10/2015, 05/17/2016, 05/20/2017, 06/05/2018, 05/28/2020, 07/01/2020 ??? PFIZER COVID-19 (ORIGINAL FORMULATION, PURPLE CAP), [...] and suicidal ideas. Physical Exam Filed Vitals: 04/23/22 1025 BP: 124/74 Pulse: 76 Resp: 12 Temp: 97.7 ??F (36.5 ??C) TempSrc: Temporal SpO2: 97% Weight: 130.6 kg (288 lb) Height: 5' 3.5 (1.613 m) Body mass index is 50.22 kg/m??. Physical Exam: General: Alert, pleasant, in [...] 1.78 L, 92%. FVC 2.20 L, 90%. FEV1 selfies ratio 81%. TLC 3.54 L, 82%. RV 1.38 L, 72%. Unadjusted DLCO80% Pertinent Labs Reviewed CPAP compliance 05/22/2021 Reviewed 73% use over [...] set at 9 cm H2O. AHI 0.5/h. Assessment 1. Obstructive sleep apnea on CPAP 2. Tobacco use history 3. Obesity 4. Hypertension Plan -Continue CPAP at a set pressure of 9 cm H2O. she will continue to benefit from use. -Change of the mask and straps, tubing every 3 to 6 months -Use distilled water - We will submit orders for her to try new mask -Continue taking Trelegy 100/62.5/25 mcg 1 puff daily, rinse and spit after. Return in about 6 months (around 10/24/2022). Bonnie Lema MD ADDENDUM She noted after her initial visit that she is having issues with feeling like she has phlegm in theback of her throat that she cannot get up. Plan to add on a region 8 allergy panel Bonnie Lema MD * Bonnie Lema MD - 04/23/2022 11:00 AM CDT Mrs. Amaya, Your allergy panel is positive for allergies to dust mites, cats, and cockroach. I recommend starting an [id number] nondrowsy allergy medication such as Claritin. If you do so please be sure to use plain Claritin and not Claritin-D. 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 WORKER Office Visit [facility] - [place] [address] [place] [address] Bonnie Lema MD [address] [place] [address] [place] [address] 11/14/2024 10:20 AM RESTUARANT CREW WORKER Office Visit [facility] Multispecialty Care - [address] [place] [address] Tracy Olivares MD [address] [facility] [address] [place] [address] documented as of this encounter Procedures Procedure Name Priority Date/Time Associated Diagnosis Comments ALLERGENS UPPER RESP Routine 05/20/2022 10:47 AM CDT documented in this encounter Results * (ABNORMAL) ALLERGENS UPPER RESP (05/20/2022 10:47 AM CDT) ALLERGEN D PTERONYSSINUS <0.10 kU/L [facility] RAST SCORING GUIDE 0 [facility] ALLERGEN D FARINAI 0.33(H) kU/L [facility] RAST SCORING GUIDE 0/1 [facility] ALLERGEN PENICILLIUM NOTATUM <0.10 kU/L [facility] RAST SCORING GUIDE 0 [facility] ALLERGEN CLADOSPORIUM HERBARUM <0.10 kU/L [facility] RAST SCORING GUIDE 0 [facility] ALLERGEN ASPERGILLUS FUMIGATUS <0.10 kU/L [facility] RAST SCORING GUIDE 0 [facility] ALLERGEN ALTERNARIA ALTERNATA <0.10 kU/L [facility] RAST SCORING GUIDE 0 [facility] ALLERGEN CAT DANDER 0.16(H) kU/L [facility] RAST SCORING GUIDE 0/1 [facility] ALLERGEN DOG DANDER <0.10 kU/L [facility] RAST SCORING GUIDE 0 [facility] ALLERGEN COCKROACH PERSIAN 0.39(H) kU/L [facility] RAST SCORING GUIDE 1 [facility] ALLERGEN BOX ELDER/MAPLE TREE <0.10 kU/L [facility] RAST SCORING GUIDE 0 [facility] ALLERGEN MOUNTAIN CEDAR TREE <0.10 kU/L [facility] RAST SCORING GUIDE 0 [facility] ALLERGEN WALNUT TREE <0.10 kU/L [facility] RAST SCORING GUIDE 0 [facility] ALLERGEN MAPLE LEAF SYCAMORE <0.10 kU/L [facility] RAST SCORING GUIDE 0 [facility] ALLERGEN COTTONWOOD TREE <0.10 kU/L [facility] RAST SCORING GUIDE 0 [facility] ALLERGEN WHITE JAN TREE <0.10 kU/L [facility] RAST SCORING GUIDE 0 [facility] ALLERGEN OAK TREE <0.10 kU/L [facility] RAST SCORING GUIDE 0 [facility] ALLERGEN ELM TREE <0.10 kU/L [facility] RAST SCORING GUIDE 0 [facility] ALLERGEN PECAN TREE <0.10 kU/L [facility] RAST SCORING GUIDE 0 [facility] ALLERGEN WHITE MULBERRY TREE <0.10 kU/L [facility] RAST SCORING GUIDE 0 [facility] ALLERGEN BERMUDA GRASS <0.10 kU/L [facility] RAST SCORING GUIDE 0 [facility] ALLERGEN DILSHAD GRASS <0.10 kU/L [facility] RAST SCORING GUIDE 0 [facility] ALLERGEN COMMON SHORT RAGWEED <0.10 kU/L [facility] RAST SCORING GUIDE 0 [facility] ALLERGEN PIGWEED <0.10 kU/L [facility] RAST SCORING GUIDE 0 [facility] ALLERGEN COMORAN THISTLE <0.10 kU/L [facility] RAST SCORING GUIDE 0 [facility] ALLERGEN HUBBARD ELDER <0.10 kU/L [facility] RAST SCORING GUIDE 0 [facility] ALLERGEN MOUSE <0.10 kU/L [facility] RAST SCORING GUIDE 0 [facility] IGE 136(H) <NB=938 kU/L [facility] INTERPRETATION [facility] Comment: Specific ?Level of Allergen IGE Class ?kU/L ? Specific IGE Antibody ----- ? --------- ?0 ?<0.10 ? Absent/Undetectable ??0/1 ?0.10-0.34 ? Very Low Level ??1 ?0.35-0.69 ? Low Level ??2 ?0.70-3.49 ? Moderate Level ??3 ?3.50-17.4 ? High Level ??4 ?17.5-49.9 ? Very High Level ??5 ?50-100 ?Very High Level ??6 ?>100 ?Very High Level The clinical relevance of allergen results of 0.10-0.34 kU/L are undetermined and intended for specialist use. Allergens denoted with a include results using one or more analyte specific reagents. In those cases, the test was developed and its analytical performance characteristics have been determined by [facility]. It has not been cleared or approved by the U.S. Food and Drug Administration. This assay has been validated pursuant to the CLIA regulations and is used for clinical purposes. 05/20/2022 10:4 7 AM CDT 05/20/2022 10:49 AM CDT Narrative [facility] - 05/25/2022 4:47 PM CDT VARIFIED ALL INFO FASTING:NO FASTING: NO us Bonnie Lema MD LABORATORY Final Result [facility] [address] [place] [address] documented in this encounter Visit Diagnoses Diagnosis FAISAL on CPAP- Primary Obstructive sleep apnea (adult) (pediatric) Class 3 severe obesity due to excess calories without serious comorbidity with body mass index (BMI) of 45.0 to 49.9 in adult ([facility]) Nicotine dependence, cigarettes, in remission Seasonal allergies Allergic rhinitis, cause unspecified documented in this encounter Additional Health Concerns Assessment Noted Time PHQ-9 Depression Total Score: 5 01/06/20 10:48 AM CDT documented as of this encounter Care Teams Fitness Teacher Relationship Specialty Start Date End Date Tracy Olivares MD [address] [facility] [address] [place] [address] PCP - General INTERNAL MEDICINE 01/02/21 Bonnie Lema MD [address] [address] Consulting Physician Internal Medicine Pulmonary Disease 09/16/21 documented as of this encounter
--- OUTSIDE RECORDS SUMMARY | 2024-09-07 05:25 | XMS_ITS | Encounter Summary ---
Author Organization [facility] Address [address] [place] [address]. [place], [place] [address] [place] [address] Care Team Providers Care Gynecology Teacher Name Role Phone Tracy Olivares MD Primary Care Provider [phone] Nathan Baig MD Unavailable [phone] Encounter Details Date Type Department Care Team (Latest Contact Info) Description 05/03/2022 Travel Social History Tobacco Use Types Packs/Day [...] suspected to have Coronavirus/COVID-19? 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 Office Visit [facility]ty [facility] - [address] [place], [place] [id number] Nathan Baig MD [address] [facility] [address] [place] [address] 11/14/2024 10:20 AM INTERIOR HORTICULTURIST Office Visit [facility] Multispecialty Care - [place] [address] [address] [place] [address] Tracy Olivares MD [facility] [address] [address] documented as of this encounter Visit Diagnoses Not on filedocumented in this encounter Additional Health Concerns Assessment Noted Time PHQ-9 Depression Total Score: 5 01/06/20 10:48 AM CDT documented as of this encounter Care Teams Gynecology Teacher Relationship Specialty Start Date End Date Tracy Olivares MD [address] [place] [address] PCP - General INTERNAL MEDICINE 01/02/21 Nathan Baig MD [address] [facility] [address] [place] [address] Consulting Physician Internal Medicine Pulmonary Disease 09/16/21 documented as of this encounter
--- OUTSIDE RECORDS SUMMARY | 2024-09-07 05:25 | XMS_ITS | Encounter Summary ---
Author Organization [facility] - [facility] Address [address] [place] [address]. [place] [id number] [place] [id number] Care Team Providers Care Crushed Stone Grader Name Role Phone Tracy Olivares MD Primary Care Provider [phone] Nathan Baig MD Unavailable [phone] Reason for Visit * Reason Comments Medicare Wellness Patient presents tomarvin cummins for her Annual Wellness Visit Encounter Details Date Type Department Care Team (Latest Contact Info) Description 09/16/2021 10:30 AM BROADCAST PRODUCER Office Visit [facility] [place] [address] [place] [address] [address] [place] [address] [place] [address] [place] [address] [address] [place] [address] Medicare Wellness (Patient presents today for her Annual Wellness Visit) Social History Tobacco Use Types Packs/Day Years Used Date Smoking Tobacco: Former Cigarettes 1.5 30 0 09/12/1954 - 09/12/1984 Smokeless Tobacco: Never Tobacco Cessation:Counseling Given: No Comments:counseled by Dr Olivares Alcohol Use Standard Drinks/Week Comments Not Currently 0 (1 standard drink = 0.6 oz pur e alcohol) PHQ-2 Answer Date Recorded PHQ-2 Score - If the patient scores above 3, please move on to questions 3-9 3 09/16/2021 Comments No Sex and Gender Information Value Date Recorded Sex Assigned at Not on file Legal Sex Female 8:25 PM CDT Gender Identity Not on file Sexual Orientation Not on file COVID-19 Exposure Response Date Recorded In the last month, have you been in contact with someone who was confirmed or suspected to have Coronavirus / COVID-19? No / Unsure 09/16/2021 9:58 AM BROADCAST PRODUCER documented as of this encounter Last Filed Vital Signs Vital Sign Reading Time Taken Comments Blood Pressure 130/78 09/16/2021 10:36 AM BROADCAST PRODUCER Pulse 76 09/16/2021 10:36 AM BROADCAST PRODUCER Temperature 36.7 ??C (98 ??F) 09/16/2021 10:36 AM BROADCAST PRODUCER Respiratory Rate 18 09/16/2021 10:36 AM BROADCAST PRODUCER Oxygen Saturation 98% 09/16/2021 10:36 AM BROADCAST PRODUCER Inhaled Oxygen Concentration - - Weight 126.6 kg (279 lb) 09/16/2021 10:36 AM BROADCAST PRODUCER Height 161.3 cm (5' 3.5 ) 09/16/2021 10:36 AM CS T Body Mass Index 48.65 09/16/2021 10:36 AM BROADCAST PRODUCER documented in this encounter Patient Instructions * Patient Instructions* Alexandra Fernandez RN - 09/16/2021 10:30 AM BROADCAST PRODUCER Images from the original note were not included. PERSONALIZED PREVENTION PLAN FOR Keegan Amaya These are your preventive care screenings with due dates. Health Maintenance Topic Date Due ??? Diabetes: Retinopathy Eye Exam Never done ??? Zoster Vaccines (1 of 2) Never done ??? COVID-19 Vaccine (3 - Booster for Pfizer series) 07/01/2021 ??? Hemoglobin A1C 01/04/2022 ??? Lipid Panel 07/09/2022 ??? Medicare Wellness Visit 09/17/2022 ??? Mammogram Screening 08/25/2023 ??? Colorectal Cancer Screening Colonoscopy (10 Years) 05/26/2030 ??? DTaP, Tdap and Td Vaccines (2 - Td or Tdap) 07/06/2031 ??? DEXA SCAN (GENERAL) Completed ??? Influenza Adult Completed ??? Pneumococcal Vaccine: 65+ Years Completed ??? Meningococcal Vaccine Aged Out Recommended Covered Preventative Services Your PCP and clinical team will review the list below of recommended Medicare Part B Covered Preventative Services and follow up with you on future scheduling of any additional services CARDIOVASCULAR DISEASE (behavioral therapy) Medicare will cover one visit per year with a primary care doctor in a primary care setting (like wang's office) to help lower your risk for cardiovascular disease. During this visit, the doctor may discuss aspirin use (if appropriate), check your blood pressure, and give you tips to make sure you eat well. You pay nothing if the doctor or other qualified health care provider accepts assignmen t. Based on your responses to the Health Risk Assessment and appointment today, your provider recommends the following: ADVANCE DIRECTIVES The Basics Written by the doctors and editors at [facility] What are advance directives???--??Advance directives are legal documents that allow you to spell out ahead of time what of types medical care you would want if you ever became unable to speak for yourself. These documents can help ensure that you get the care you want even if you have an unexpectedserious illness or accident. The documents can also make things easier for the people who will need to make decisions for you if you ever become unable to make them for yourself. Are there different kinds of advance directives???--??Yes. The most useful kinds of advance directives are: ?? Health care proxy (also called the durable power of estate planning attorney for health care) - The health care proxy document allows you to choose someone to make medical decisions for you if you become unable to speak for yourself. The benefit of having this document is that it makes your choice of a decision-maker clear to your doctors and family members. When you choose a health care proxy, it is important to talk to the person you choose about the things that you do or don't want. That way your decision-maker knows what to do later on if he or she ever has to speak for you. ?? Living will - A living will is the document that tells health care providers what type of care you want if you become unable to speak for yourself. For instance, a living will allows you to recordin writing whether you would want a feeding tube put in if you had a serious illness or accident. ?? Do not resuscitate/do not intubate order (also called a DNR/DNI) - If you decide you do not wantyour heart restarted if it stops and you do not want a breathing tube put in if you stop breathing,you can ask for a DNR/DNI. This is a form that must be signed by a doctor. It tells all your healthcare providers that you have decided you do not want these treatments. Advance directives work best when they are part of a team effort that includes not only the person making the decisions, but also doctors, emergency health workers, and places like hospitals and nursing homes. The Physician Orders for Life Sustaining Treatment (POLST) is a form for people who already have a serious illness or are very weak and likely to need medical help. The POLST form spells out exactly what care should be given, and not given, based on your choices and wishes. It is signed by your doctor, and you can keep a copy at home to be used in the event of an emergency. A copy is also kept onfile at any hospital or other place where you might get medical care. Not every state has a POLST program. To find out if your state has one, you can go online to www.polst.org. How do I choose a health care proxy???--??Choose someone who: ?? You know and trust ?? Can separate his or her own wishes from your own ?? You know would carry out your wishes if that became necessary ?? Could be easily reached if he or she was needed ?? Could handle it if other family members or loved ones wanted you to get treated differently thanyou would want Some people choose a second person as an alternate proxy, in case their first choice cannot be reached at the time decisions need to be made. Who should have an advance directive???--??Advance directives are a good idea for anyone, but they are especially important if: ?? You are older than 65. ?? You have a serious life-threatening illness, such as advanced cancer, or end- stage heart or liver failure. ?? The person whom you would like as your health care proxy (decision-maker) is not a family memberor legally to you. If that is the case the person you would choose might not be allowed to make decisions for you. Unless there is a health care proxy, the law usually states that a person's closest family member has the right to make decisions for him or her. What kinds of decisions will I need to make???--??Your advance directives can have as much or as little detail as you want. But many people who have advance directives record their wishes about the following treatments: ?? Breathing tubes - If you stop breathing or are having a very hard time breathing, you can get attached to a machine that will help you breathe. For that to happen, you will have to be intubated. That means that a tube will be put down your throat and into your lungs. Then the tube will be connected to a breathing machine. When the tube is in place, you will not be able to talk, at least at first. Plus, you will probably be sedated, meaning that you are on medicines that make you sleep. Sometimes a breathing machine is needed only for a short time. For instance, some people need the breathing machine just while they recover from a lung infection. When deciding about a breathing tube, consider whether you would want it at all, want it only for a short time, or want it no matter what. Also, keep in mind that any time a breathing machine is used, it is hard to know for sure if and when it will be able to be disconnected. ?? Cardiopulmonary resuscitation (CPR) - If your heart stops beating suddenly, doctors might be able to restart it by pumping on your chest, putting in a breathing tube and pushing air into your lungs, giving you an electric shock (called defibrillation ), and/or giving you special medicines. Somepeople recover completely after having their heart restarted. Others have permanent brain damage from a lack of blood flow to the brain; this is most likely in people who have an advanced, serious illness. ?? Feeding tubes - If you become unable to eat, you can have a tube put into your stomach or intestines that can deliver nutrients. A feeding tube can keep a person's body going while he or she healsand gets strong. But it can also keep a person alive for a long time even if there is no chance theperson will recover. Can I change my mind???--??Yes. You can change your mind at any time. If you sign an advance directive and you decide you want a different kind of treatment or you no longer want the health care proxy you chose, all you have to do is tell your doctor or nurse about your new decision. If you want toname a new health care proxy or want to record new wishes, you can draw up new documents. How can I draw up an advance directive???--??The following table lists resources that can help you learn more about making your own advance directives (table 1). All topics are updated as new evidence becomes available and our peer review process is complete. This topic retrieved from [employer] on: Sep 19, 2018. Topic 94398 Version 11.0 table 1: Resources that can help you make advance directives ?? Address Phone number Website [address] Toll-free: [phone]) [facility] [ ] http://assets.[facility].org/external_sites/ caregiving/multimedia/EG_AdvanceDirectives.html Aging with Dignity (Five Wishes form) [address] [place] [address] Toll-free: (225) 5WISHES [ ] www.agingwithdignity.org CaringInfo ?? Toll-free: www.caringinfo.org POLST National POLST [employer]/o [employer] [address] [place] [address] www.[employer].org HEALTHY DIET INFORMATION With a heart healthy food plan, you will learn to make better food choices. This diet may help you lower your blood cholesterol level, manage your blood pressure, and lower your risk for heart problems. Smaller portions may also be helpful. Sodium is a type of mineral found in many foods. It helps keep the balance of fluids in your body. Too much sodium can raise your blood pressure. It can also make you take on extra water. This is called edema. Pay careful attention to how much salt or sodium is in your food. You may need to avoid salt or eat foods with less sodium. Cholesterol is a fat-like, waxy substance in your blood. It is normal to have some cholesterol in your blood because your body makes it. You also get extra cholesterol from all animal products. Theseare foods like meats, eggs, and dairy products. Too much cholesterol can block or damage your bloodvessels. This can lead to a heart attack or stroke. Fats in your food have calories which give energy. Not all fats are bad. Some fats are healthy, like the fat found in fish, nuts, and olive oil. These are called unsaturated fats. They help manage body functions and lower cholesterol levels. Learn about the best fats to use in your diet and where to use them. Eating too much fat may make you more likely to weigh more than is healthy. This raises your risk of many heart problems. Fiber is found in plants. Meat and dairy products do not have fiber in them. Fiber can help you lower your unhealthy cholesterol level. You may need more water as you eat more fiber so you do not gethard stools. What lifestyle changes are needed? Eat a healthy diet and workout often. Try to use as many calories as you take in each day. What changes to diet are needed? ?? Eat oily fish at least 2 times a week. These are fish like tuna, salmon, and mackerel. ?? Limit sodium to no more than 2,300 mg of sodium per day. This is about 1 teaspoon (5 grams) of table salt. Use little or no salt when making food. Try other spices or seasoning instead. ?? Limit how much cholesterol you eat to less than 300 mg per day. You can do this by having lean meats. Also eat lots of fruits, vegetables, and fat-free and low-fat dairy products. ?? Limit how much trans fats you eat. Trans fats are found in many processed foods like stick margarine, shortening, and some fried foods. Also, lower how much hydrogenated fats you eat. They are used to make pastries, biscuits, cookies, crackers, chips, and many snack foods. ?? Have no more than 1 drink per day of beer, wine, and mixed drinks (alcohol). Who should use this diet? A heart healthy diet is good for everyone. What foods are good to eat? ?? Grains: Try to eat 6 to 8 servings of whole grain, high fiber foods each day. These are whole grain bread, cereals, brown rice, or pasta. ?? Fruits and vegetables: Eat 4 to 5 servings each day. Try to pick many kinds and colors. Try to eat more that are fresh or frozen. Look for low sodium or salt-free if you choose canned. Rinse canned items before cooking or eating. Dried peas, beans, and lentils are also good. ?? Dairy: Choose low fat (1%) or fat-free milk. Eat nonfat or low-fat products. ?? Protein: Try to eat more low fat or lean meats like chicken and turkey. Eat less red meat and eat more fish, eggs, egg whites, and beans instead. ?? Fats: Use good fats found in fish, nuts, and avocados. Try using olive oil, canola oil, and low-sodium and low-fat salad dressing and mayonnaise. Use corn, safflower, sunflower, and soybean oils. ?? Condiments: Use low-sodium or salt-free broths, soups, soy sauce, and condiments. Pepper, herbs,spices, vinegar, lemon or lower brule juices are great for seasoning. Sugar, cocoa powder, honey, syrup, and jams may be eaten in small amounts. ?? Sweets: Low-fat, trans fat-free cookies, cakes, and pies; delma crackers; animal crackers; low-fat fig bars; and ashley snaps. What foods should be limited or avoided? ?? Grains: Salted breads, rolls, crackers, quick breads, self-rising flours, biscuit mixes, regularbread crumbs, instant hot cereals, commercially-prepared rice, pasta, stuffing mixes ?? Fruits and vegetables: Commercially-prepared potatoes and vegetable mixes, regular canned vegetables and juices, vegetables frozen with sauce or pickled vegetables, processed fruits with salt or sodium ?? Dairy: Whole milk, malted milk, chocolate milk, buttermilk ?? Protein: Smoked, cured, salted, or canned meat, fish, or poultry such as mckay and sausages ?? Fats: Cut back on solid fats like butter, lard, and margarine. ?? Condiments and snacks: Salted and canned peas, beans, and olives; salted snack foods; fried foods; soda, juices, or other sweetened drinks; commercially- softened water. Miso, salsa, ketchup, barbeque sauce, Worcestershire sauce, soy sauce, and teriyaki sauce are also high in salt. ?? Sweets: High-fat baked goods such as muffins, donuts, pastries, commercial baked goods Helpful tips ?? When you go to a grocery store, have a list or a meal plan. Do not shop when you are hungry to avoid cravings for foods. ?? You need to know about the sodium and fat content of the food you eat. Read food labels with care. They will show you how much of each is in a serving. This amount is given as a percentage of the total amount you need each day. Reading the labels will help you make healthy food choices. ?? Avoid fast foods. ?? Watch your portions when eating out. Split an order or bring home half for another meal. ?? Talk to a dietitian for help. Where can I learn more? [employer] https://familydoctor.org/zxby-qvd-akkeotzv-rgz-s-msxvpil-heart/ [place] [employer] Association http://www.heart.org/HEARTORG/HealthyLiving/HealthyEating/Nutrition/Xzsq-fod-Mmk estyle-Recommendations_[facility]_305855_Article.jsp#.Wxf_Q6oUmUk EMERGENCY SUPPLIES AND FIRST AID All homes should have the following basic safety tools. First Aid kit Products your family should always have on hand to treat minor emergencies. ?? BAND-AID / Adhesive Bandages - Protects wound from dirt and germs and helps promote fast healing. Provides long-lasting infection protection to help wounds heal fast and may help minimize the appearance of scars. ?? Antiseptic Wash - Temporarily relieves pain and itch while washing away dirt and germs. ?? Cold Pack - For reducing pain and swelling. ?? Sterile Eye Wash - First-aid eye irrigating solution. ?? Thermometer - To check body temperature. ?? Tweezers - For splinter, glass or insect stinger removal. ?? Health Care Gloves - To avoid contact with bodily fluids. ?? Comprehensive First Aid Guide - For information on most minor first-aid situations. Fire Extinguisher ?? Confirm that your fire extinguisher is up to date and not . ?? The extinguisher should be kept in or near the kitchen. Smoke Alarms ?? Smoke alarms are on every level of the home. ?? Smoke alarms are inside and outside sleeping areas. ?? Smoke alarms are tested each month. ?? Smoke alarm batteries are changed as needed. ?? Smoke alarms are less than 10 years old. Carbon Monoxide Alarms ?? Carbon monoxide alarms are located on each level of the home. ?? Confirm Carbon monoxide alarms are less than 7 years old. EXERCISE As an older adult, regular physical activity is one of the most important things you can do for your health. It can prevent many of the health problems that seem to come with age. It also helps your muscles grow stronger so you can keep doing your day-to-day activities without becoming dependent onothers. Not doing any physical activity can be bad for you, no matter your age or health condition. Keep inmind, some physical activity is better than none at all. Your health benefits will also increase with the more physical activity that you do. If you're 65 years of age or older, are generally fit, and have no limiting health conditions you can follow these guidelines. For Important Health Benefits Older Adults Need at Least: 2 hours and 30 minutes ( 150 minutes) of moderate-intensity aerobic activity (i.e., brisk walking) every week and muscle-strengthening activities on 2 or more days a week that work all major muscle groups (legs, hips, back, abdomen, chest, shoulders, and arms). -or- 1 hour and 15 minutes (75 minutes) of vigorous-intensity aerobic activity (i.e., jogging or running) every week and muscle-strengthening activities on 2 or more days a week that work all major musclegroups (legs, hips, back, abdomen, chest, shoulders, and arms). -or- An equivalent mix of moderate- and vigorous-intensity aerobic activity and muscle-strengthening activities on 2 or more days a week that work all major muscle groups (legs, hips, back, abdomen, chest, shoulders, and arms). For Even Greater Health Benefits Older Adults Should Increase Their Activity to: 5 hours (300 minutes) each week of moderate-intensity aerobic activity and muscle-strengthening activities on 2 or more days a week that work all major muscle groups (legs, hips, back, abdomen, chest, shoulders, and arms). -or- 2 hours and 30 minutes (150 minutes) each week of vigorous-intensity aerobic activity and muscle-strengthening activities on 2 or more days a week that work all major muscle groups (legs, hips, back,abdomen, chest, shoulders, and arms). -or- An equivalent mix of moderate- and vigorous-intensity aerobic activity and muscle-strengthening activities on 2 or more days a week that work all major muscle groups (legs, hips, back, abdomen, chest, shoulders, and arms Aerobic activity - what counts? Aerobic activity or cardio gets you breathing harder and your heart beating faster. From pushing a marketing operations analyst, to taking a dance class, to biking to the store - all types of activities count. As long as you're doing them at a moderate or vigorous intensity for at least 10 minutes at a time. Even something as simple as walking is a great way to get the aerobic activity you need, as long as it's at a moderately intense pace. Intensity is how hard your body is working during aerobic activity. How do you know if you're doing moderate or vigorous aerobic activity? On a 10-point scale, where sitting is 0 and working as hard as you can is 10, moderate-intensity aerobic activity is a 5 or 6. It will make you breathe harder and your heart beat faster. You'll also notice that you'll be able to talk, but not sing the words to your favorite song. Vigorous-intensity activity is a 7 or 8 on this scale. Your heart rate will increase quite a bit and you'll be breathing hard enough so that you won't be able to say more than a few words without stopping to catch your breath. You can do moderate- or vigorous-intensity aerobic activity, or a mix of the two each week. Intensity is how hard your body is working during aerobic activity. A rule of thumb is that 1 minute of vigorous-intensity activity is about the same as 2 minutes of moderate-intensity activity. Everyone's fitness level is different. This means that walking may feel like a moderately intense activity to you, but for others, it may feel vigorous. It all depends on you - the shape you're in, what you feel comfortable doing, and your health condition. What's important is that you do physical activities that are right for you and your abilities. Muscle-strengthening activities - what counts? Besides aerobic activity, you need to do things to make your muscles stronger at least 2 days a week. These types of activities will help keep you from losing muscle as you get older. To gain health benefits, muscle-strengthening activities need to be done to the point where it's hard for you to do another repetition without help. A repetition is one complete movement of an activity, like lifting a weight or doing one sit-up. Try to do 8--12 repetitions per activity that count as 1 set. Try to do at least 1 set of muscle-strengthening activities, but to gain even more benefits, do 2 or 3 sets. There are many ways you can strengthen your muscles, whether it's at home or the gym. The activities you choose should work all the major muscle groups of your body (legs, hips, back, chest, abdomen,shoulders, and arms). You may want to try: ???Lifting weights ???Working with resistance bands ???Doing exercises that use your body weight for resistance (push ups, sit ups) ???Heavy gardening (digging, shoveling) ???Yoga Reference: http://www.cdc.gov/physicalactivity/everyone/guidelines/olderadults.html FALL RISK Guidelines to help you prevent falls: There are several steps you can take to decrease fall risk at home. One suggestion is to remove tripping hazards like throw rugs, loose wires, clutter or other objects from the floor. Installing hand-rails for stairs and turning on night lights between the bedroom and bathroom at night are other helpful suggestions. If you have fallen in the bathroom, use of grab bars near the toilet and a shower stool or bench may help prevent a fall in this part of the home. Taking extra time when getting up from a sitting or lying position before starting to walk is especially helpful to those who have dizziness triggered by change in body position. There are also some steps that can be taken to reduce fall risk outdoors. Wearing well-fitting shoes with good traction is important when walking on either the pavement or the lawn. Avoid high heels or shoes with very thick soles, especially if you have peripheral neuropathy. If you have problems with balance or leg pain, using a cane or walker can also be helpful. Finally, be aware of possible tripping hazards outdoors including uneven pavement and slipping hazards like wet ground or pavement. HEARING LOSS IN ADULTS About this topic Hearing loss happens when there is a problem with one or more parts of the ears. You may not be able to hear at all or you may be able to hear some sounds. Hearing loss is common and can b e short-term. Sometimes, it improves and other times it will not. You may be able to hear in one ear and not the other. You may have been able to hear well in your life and it has gotten worse as you have gotten older. Your ear is made of 3 parts and they all are needed for good hearing. The outer part of your ear picks up sound waves and moves them through the ear canal. Your middle ear starts with the eardrum. Itvibrates when the sound waves hit it. The eardrum moves 3 tiny bones in your middle ear. They move the sound vibrations into your inner ear. The inner ear has a small liquid-filled part that is lined with tiny hairs. It is the cochlea. The vibrations make the hairs move. This sends information to the nerves and finally your brain hears the sounds. You may have hearing loss if any of the parts of your ear are damaged. There are a few types of hearing loss: ?? Conductive hearing loss ? Due to problems with the ear canal, eardrum, or middle ear and its little bones ?? Sensorineural hearing loss (SNHL) ? Due to problems with the inner ear ?? Mixed hearing loss ? A combination of both types. It can involve all parts of the ear. What are the causes? ?? Flying in an airplane or going to a higher elevation like up a mountain. This is caused by pressure changes. ?? Wax build up in the ear ?? An ear infection ?? Listening to loud noises over a long period of time ?? An accident where the ear is involved such as a car accident, fight, or bullet or knife wound ?? A tumor growing in the ear ?? Getting older. By 75 years of age, about 1 in every 2 people have some degree of hearing loss. ?? Drugs like some antibiotics or chemo What can make this more likely to happen? Having ear infections often can make hearing loss more likely. Being around loud noises, especiallyfor a long time, can raise your chance of having hearing loss. Fluid in the middle ear or a hole inthe eardrum may cause hearing loss. Certain drugs may harm the ear. What are the main signs? ?? Not being able to hear clearly. Some sounds do not sound as clear as they used to. ?? Sounds may be muffled or dull ?? Fluid or drainage that is clear or colored coming out of your ear ?? Feeling as though there is a fullness in your ear ?? Pain or ringing in the ears ?? Trouble with balance or walking How does the doctor diagnose this health problem? Your doctor will take your history and do an exam. The doctor will look inside of your ears to check for fluid or ear infections. The doctor may use a special tool that vibrates to see if you are able to hear the vibrations in your ear. Your doctor may also order special hearing tests to learn more about your hearing loss. ?? Pure tone testing ? You wear earphones and a sound is made in one ear at a time. Different toneswill help the doctor to understand what kinds of sounds you are able to hear and the type of hearing loss you have. ?? Speech testing ? Records the faintest speech you are able to hear. You will be asked to repeat back words or listen carefully for words in a quiet or noisy setting. ?? Middle ear testing ? Measures how well the eardrum moves back and forth. How does the doctor treat this health problem? Treatment is based on the type of hearing loss that you have. The goals of treatment are to stop any more hearing loss, improve hearing, and to help communication. Doctors may do this by giving you drugs to fight an infection or by simply cleaning your outer ear. Sometimes, your hearing will not improve. You may need a tool to help you hear better. The doctor may suggest: ?? Hearing aids ? Use microphones to brick picker sounds and tiny speakers to send louder signals into the ear ?? Cochlear implant ? Bypasses the harmed hair cells in the cochlea. Sound information is sent straight to the nerve in the brain. ?? Hearing assistive technology ? Helps you function better in your daily life and may be used withhearing aids or cochlear implants ?? Surgery may be needed to repair the problem. This is based on the kind of hearing loss you have.You will need careful follow-up if surgery is needed. Are there other health problems to treat? If you have an infection or fluid in your middle ear, the doctor will treat this. If you have wax in your ears, it will be removed. What drugs may be needed? The doctor may order drugs to: ?? Fight an infection ?? Get rid of fluid in your ear What can be done to prevent this health problem? ?? Wear ear protection around loud noises. Buy earplugs, earmuffs, or both. If you need to shout beatris heard over a noise, it is loud enough to harm your hearing. ?? Take extra care when using headphones or ear buds. Be sure that the volume is not too loud. Keepthe volume level at no more than half volume on all devices. ?? Call your doctor at the first sign of problems with your ears. This may include ringing in your ears, problems with balance, or not being able to hear what people are saying. ?? Pay attention to noise ratings on appliances, power tools, and hair dryers. Purchase quieter products. ?? Do not use items, such as cotton swabs, to ???clean out?? your ears. These may harm your outer ear and eardrum. Where can I learn more? National [place] [employer] Aging https://www.felecia.nih.gov/health/gnokwnt-ulba-bcthsz-cgerjmq-rakpa-vduhkv SLEEP PROBLEMS Guidelines for good sleep hygiene: It is important to practice good sleep hygiene. Poor sleep hygiene is often a contributing factor to insomnia and may be associated with depression. A regular schedule for sleep and naps promotes good health at all ages. ?? Older Adults: 65 or more years old should sleep 7 to 8 hours each day. General Many people have sleep problems and don't get enough sleep. You may not be able to fall asleep right away or stay asleep. You may wake up early and not be able to fall back to sleep. Sometimes, when you wake up in the morning you may not feel rested and then you may feel tired or sleepy all day. You may feel grouchy, forget things, or have trouble focusing. Sleep problems can last for a few days, weeks, or even months. For some people, sleep problems may not happen every day but a few times a week. Sleep problems may be caused by stress or a health problem. To improve your sleep, there are some simple things you can try: ?? Teach your body that it is time to sleep. ? Do the same things each night before you go to bed to help you get ready for sleep. Read a book or listen to music before you fall asleep. Take a warm bath or shower to help relax you. ? Don't work on the computer or watch TV right before bed. The bright lights make your body think that it is time to be awake. ? Keep the same sleep schedule. Go to bed and get up at the same time each day, even on weekends. ? If you cannot fall asleep, get up and do a light activity until you feel sleepy. Try to read, write in a journal, or take deep and relaxing breaths. ?? Create a good sleep area. ? Sleep in a dark and quiet room at a comfortable temperature. ? Use a fan or white noise machine to help block out noise. Consider ear plugs if your partner snores. ? Do not use your bedroom for things other than sleep or sex. ? Give children and pets their own separate area to sleep. ? Use a comfortable pillow and mattress. ?? What you do during the day matters when you try to sleep at night. ? Adults and older children should avoid naps during the day. Taking a nap can make it hard to sleep at night. ? Avoid scary or violent TV shows, books, and computer games before bedtime. ? Make a list of things you need to do the next day before you go to bed. This may keep you from worrying about them. ? Find ways to manage stress. Learn to deep breathe and relax your muscles to help your body slow down and fall asleep. Things like yoga, meditation, or analisa chi may also be helpful. Talk to a counselor about problems. This may help you to learn different ways to deal with and lower stress. ? Find time to get outside in the sun during the day. Avoid bright lights in the evening. ? Exercise each day, but not right before you go to bed. It is best to avoid exercise for 2 to 3 hours before bedtime. Encourage children to play quietly before bed. What will the results be? ?? Better able to pay attention ?? Less learning problems ?? Fewer accidents ?? Better overall health What lifestyle changes are needed? ?? Do not drink or eat things with caffeine late in the day and before bedtime. ?? Do not eat large or spicy meals close to bedtime. If you are hungry at bedtime, try a light snack of milk, sliced turkey, or fruit. ?? Do not drink beer, wine, and mixed drinks (alcohol) before bedtime. ?? Do not drink too much liquid before bedtime, including water. This may cause you to wake up during the night to use the bathroom. ?? If you smoke, ask for help to limit or stop smoking. HEALTH STATUS Your Health Risk Assessment indicates you are feel you are not in good health. A healthy lifestyle helps keep the body fit and the mind alert. It helps protect you from disease, helps you fight disease, and helps prevent chronic disease (disease that doesn't go away) from getting worse. This is important as you get older and begin to notice twinges in muscles and joints and a decline in the strength and stamina you once took for granted. A healthy lifestyle includes good healthcare, good nutrition, weight control, recreation, and regular exercise. Avoid harmful substances and do what you can to keep safe. Another part of a healthy lifestyle is stay mentally active and socially involved. Good healthcare ?? Have a physical checkup every year. ?? If you have new symptoms, let us know right away. Don't wait until the next checkup. ?? Take medicines exactly as prescribed and keep your medicines in a safe place. Tell us if your medicine causes problems. Healthy diet and weight control ?? Eat 3 or 4 small, nutritious, low-fat, high-fiber meals a day. Include a variety of fruits, vegetables, and whole-grain foods. ?? Make sure you get enough calcium in your diet. Calcium, vitamin D, and exercise help prevent osteoporosis (bone thinning). ?? If you live alone, try eating with others when you can. That way you get a good meal and have company while you eat it. ?? Try to keep a healthy weight. If you eat more calories than your body uses for energy, it will be stored as fat and you ?? will gain weight. Recreation Recreation is not limited to sports and team events. It includes any activity that provides relaxation, interest, enjoyment, and exercise. Recreation provides an outlet for physical, mental, and social energy. It can give a sense of worth and achievement. It can help you stay healthy. Mental exercise and social involvement Mental and emotional health is as important as physical health. Keep in touch with friends and family. Stay as active as possible. Continue to learn and challenge yourself. Things you can do to stay mentally active are: ?? Learn something new, like a foreign language or musical instrument. ?? Play SCRABBLE or do crossword puzzles. If you cannot find people to play these games with you athome, you can play them with others on your computer through the Internet. ?? Join a games club--anything from card games to chess or checkers or lawn bowling. ?? Start a new hobby. ?? Go back to school. ?? Volunteer. ?? Read. ?? Keep up with world events. 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 Patient Care Team: Tracy Olivares MD as PCP - General (INTERNAL MEDICINE) HEALTH RISK ASSESSMENT Medicare Wellness 09/16/2021 During the past 4 weeks, how much have you been bothered by emotional problems such as feeling anxious, depressed, irritable, sad or downhearted and blue? Slightly During the past 4 weeks, has your physical and emotional health limited your social activities withfamily friends, neighbors or groups? Slightly During the past 4 weeks, how much bodily pain have you generally had? Very mild pain During the past 4 weeks, was someone able to help you if you needed and wanted help? Yes, a little During the past 4 weeks, what was the hardest physical activity you could do for atleast 2 minutes?Light Can you get places out of walking distance without help? Yes Can you shop for groceries or clothes without help Yes Can you prepare your own meals? Yes Can you do your own housework without help? Yes Can you handle your own money without help? Yes Do you need help eating, bathing, dressing, or getting around your home? No During the past 4 weeks, how would you rate your general health? Fair How have things been going for you during the past 4 weeks? Pretty good Are you having difficulties driving your car? No Do you always fasten your seatbeat when you are in a car? Yes, usually Fall or dizzy when standing up Never Sexual problems Never Trouble eating well Never Teeth or dentures Never Problems using the telephone Never Tired or fatigued Sometimes Do you currently smoke? No During the past 4 weeks, how many drinks of wine, beer or other alcoholic bevearges did you have? No alcohol at all Do you exercise for about 20 minutes 3 or more days a week? No, I usually do not exercise this much How often do you have trouble taking medicines the way you have been told to take them? I always take them as prescribed How confident are you that you can control and manage most of your health problems? Somewhat confident In the past 6 months, have you experienced leaking of urine? Yes How much did leaking of urine make you change your daily activities or interfere with your sleep? Very little time Does the patient live alone? Yes Does the patient have throw rugs in their home? Yes Does the patient's home have poor lighting? No Does the patient have grab bars in their bathroom? Yes Does the patient have handrails on stairs and steps in their home? Yes Does the patient's home have functioning smoke alarms? Yes Patient currently manages her medications by taking them from the bottles. She denies any problems with this system. FALL RISK Fall Risk One or more falls in the last year:: No Feels unsteady when walking:: Yes Worried about falling:: No MINI-COG Mini-Cog 09/16/2021 3 word recall 3 Clock Draw 2 Total Score = Word Recall Score + Clock Draw score 5 PHQ2/PHQ9 Over the last two weeks, how often have you been bothered by any of the following problems? 01/05/2021 03/03/2021 04/14/2021 05/22/202107/06/2021 09/16/2021 LITTLE INTEREST OR PLEASURE IN DOING THINGS 1-Several Days 1-Several Days 1- Several Days 0-Not at All 1-Several Days 2-More than half the days FEELING DOWN, DEPRESSSED,OR HOPELESS 0-Not at All 0-Not at All 2-More than half the days 0-Not at All 0-Not at All 1-Several Days PHQ2 DEPRESSION TOTAL SCORE 1 1 3 0 1 3 TROUBLE FALLING OR STAYING ASLEEP OR SLEEPING TOO MUCH 0-Not at All 1-Several Days 0-Not at All - 1-Several Days 1-Several Days FEELING TIRED OR HAVING LITTLE ENERGY 2-More than half the days 0-Not at All 2- More than half the days - 1-Several Days 1-Several Days POOR APPETITE OR OVEREATING 1-Several Days 0-Not at All 2-More than half the days - 0-Not at All 1-Several Days FEELING BAD ABOUT YOURSELF 1-Several Days 0-Not at All 0-Not at All - 0-Not at All 0-Not at All TROUBLE CONCENTRATING ON THINGS 1-Several Days 0-Not at All 2-More than half the days - 0-Not at All 0-Not at All MOVING OR SPEAKING SO SLOWLY THAT OTHER PEOPLE COULD HAVE NOTICED 0-Not at All 0-Not at All 0-Not at All - 0-Not at All 0-Not at All THOUGHTS THAT YOU WOULD BE BETTER OFF 0-Not at All 0-Not at All 0-Not at All - 0-Not at All 0-Not at All DEPRESSION SCREENING TOTAL SCORE 6 2 9 0 3 6 IF YOU CHECKED OFF ANY PROBLEMS - Somewhat difficult Somewhat difficult - Not difficult at all Somewhat difficult Escitalopram was previously ordered. Patient states she only took the medication for 2 days. She stopped taking it as she said it made her feel more anxious. Nurse suggested patient discuss other antidepressant medications with Dr Olivares. But, patient does not want to take any antidepressant at thistime. SUBSTANCE USE SCREENING Audit C+2 Screening 09/16/2021 How often did you have a drink containing alcohol? 0 How many drinks containing alcohol did you have on a typical day when you were drinking? 0 How often did you have 5 or more drinks on one occasion? 0 How often have you used marijuana? 0 How often have you used an illegal drug or a prescription medication for non- medical reasons? For example, used for the feeling or experience it caused. 0 Alcohol / Substance Abuse Score Total 0 The 10-year ASCVD risk score (Yeny FISHER Jr., et al., 2013) is: 18% Values used to calculate the score: Age: 66 years Sex: Female Is Non- : Yes Diabetic: Yes Tobacco smoker: No Systolic Blood Pressure: 130 mmHg Is BP treated: Yes HDL Cholesterol: 62 mg/dL Total Cholesterol: 158 mg/dL HISTORY Past Medical History: Diagnosis Date ??? Anxiety [...] ??? Highest education level: Not on file Social History Tobacco Use ??? Smoking status: Former Smoker Packs/day: 1.50 Years: 30.00 Pack years: 45.00 Types: Cigarettes Quit date: 09/12/1984 Years since quittin.0 ??? Smokeless tobacco: Never Used ??? Tobacco comment: counseled by Dr Olivares Substance Use Topics ??? Alcohol use: Not Currently Current Outpatient Medications Medication Sig Dispense Refill ??? albuterol sulfate HFA 108 (90 Base) MCG/ACT inhaler Inhale 2 puffs into the lungs every 4 (four) hours as needed. 18 g 5 ??? aspirin 81 MG tablet Take 81 mg by mouth daily. ??? Cetirizine HCl (ZYRTEC ALLERGY) 10 MG Cap Take 10 mg by mouth daily. 30 capsule ??? diphenhydrAMINE-zinc (BENADRYL EXTRA STRENGTH) 2-0.1 % Cream cream Use twice daily on skin to help with itching. (Patient taking differently: Apply topically 2 (two) times daily as needed for Itching. Use twice daily on skin to help with itching.) 28 g 1 ??? guaiFENesin ER (MUCINEX) 600 MG 12 hr tablet Take 2 tablets (1,200 mg total) by mouth 2 (two) times daily. (Patient taking differently: Take 1,200 mg by mouth 2 (two) times daily as needed for Congestion. ) 28 tablet 0 ??? Losartan Potassium-HCTZ 100-12.5 MG Tab Take 1 tablet by mouth daily. 90 tablet 3 ??? metoclopramide 5 MG tablet Take 1 tablet (5 mg total) by mouth 3 (three) times a day. 20 tablet0 ??? OMEPRAZOLE 20 MG capsule Take 2 capsules (40 mg total) by mouth daily. (Patient taking differently: Take 20 mg by mouth 2 (two) times daily as needed (Stomach pain and indigestion). ) 90 capsule 1 ??? ONETOUCH VERIO test strip ??? semaglutide (OZEMPIC 0.25/0.5 MG/DOSE) 2 MG/1.5ML injection (PEN) Inject 0.5 mg into the skin every 7 days. 2 mL 0 ??? tiZANidine 4 MG tablet Take 0.5 tablets (2 mg total) by mouth nightly at bedtime. at bedtime (Patient taking differently: Take 2 mg by mouth nightly as needed (leg pain). at bedtime) 90 tablet 1 ??? traMADol 50 MG tablet Take 1 tablet (50 mg total) by mouth daily as needed for Pain. Indications: Chronic Pain 30 tablet 0 ??? TRELEGY 100-62.5-25 MCG/INH AEROSOL POWDER, BREATH ACTIVATED Inhale 1 puff into the lungs daily. 60 each 2 ??? Vitamin D, Cholecalciferol, 50 MCG (2000 UT) Cap Take 1,000 Units by mouth daily. 30 capsule ??? ATORVASTATIN 20 MG tablet TAKE 1 TABLET BY MOUTH NIGHTLY AT BEDTIME 90 tablet 1 ??? Azelastine HCl 0.15 % Solution azelastine 205.5 mcg (0.15 %) nasal spray SPRAY 2 SPRAY(S) TWICEA DAY BY INTRANASAL ROUTE FOR 30 DAYS. 30 mL 5 ??? escitalopram 10 MG tablet Take 1 tablet (10 mg total) by mouth daily. 90 tablet 2 ??? gabapentin 100 MG capsule Take 2 capsules (200 mg total) by mouth nightly at bedtime. 90 capsule 3 ??? meclizine 12.5 MG tablet Take 1 tablet (12.5 mg total) by mouth nightly as needed. 20 tablet 0 ??? ondansetron 4 MG tablet Take 1 tablet (4 mg total) by mouth every 8 (eight) hours as needed forNausea. 20 tablet 0 ??? Senna 8.6 MG tablet Take 1 tablet (8.6 mg total) by mouth daily as needed for Constipation. 30 tablet 1 No current facility-administered medications for this visit. EXAM Filed Vitals: 09/16/21 1036 BP: 130/78 Pulse: 76 Resp: 18 Temp: 98 ??F (36.7 ??C) TempSrc: Temporal SpO2: 98% Weight: 126.6 kg (279 lb) Height: 5' 3.5 (1.613 m) PainSc: 0 (0-10 Scale) Patient admits to problems with hearing. She states she often must ask others to repeat themselves. ASSESSMENT AND PLAN The patient's current medical problems were reviewed. The following health maintenance schedule was reviewed with the patient and provided in printed form in the after visit summary: Health Maintenance Topic Date Due ??? Diabetes: Retinopathy Eye Exam Never done ??? Zoster Vaccines (1 of 2) Never done ??? COVID-19 Vaccine (3 - Booster for Pfizer series) 07/01/2021 ??? Hemoglobin A1C 01/04/2022 ??? Lipid Panel 07/09/2022 ??? Medicare Wellness Visit 09/17/2022 ??? Mammogram Screening 08/25/2023 ??? Colorectal Cancer Screening Colonoscopy (10 Years) 05/26/2030 ??? DTaP, Tdap and Td Vaccines (2 - Td or Tdap) 07/06/2031 ??? DEXA SCAN (GENERAL) Completed ??? Influenza Adult Completed ??? Pneumococcal Vaccine: 65+ Years Completed ??? Meningococcal Vaccine Aged Out Patient states she has had a vision exam in the past year. Nurse will attempt to obtain documentation. Patient will pursue the Shingles vaccine at her local pharmacy. (VIS provided) Patient states she had a full hysterectomy and is no longer getting Pap Smears. Patient states Dr Olivares recommended she postpone getting the COVID vaccine booster due to some GI issues she was experiencing. The following list of Medicare Part B Covered Preventative Services and Identified Health Risks were discussed with the patient and will be reviewed with the patient???s PCP / care team for further follow up and scheduling. Cardiovascular disease (behavioral therapy) ASCVD: 15.2% Based on Keegan's responses to the Health Risk Assessment, we disscussed the following risks. ADVANCE DIRECTIVE The patient was counseled and encouraged to create an Advance Directive. This will be further evaluated and addressed at a follow up visit. Patient does not have an Advanced Directive on file. Nurse provided the Living Will and Short Form Power of Coc[employer] Milling Machine Operator for Health Care forms from the [facility] Department of Public Health. Once completed patient will bring copies for her chart. Nurse spent 10 minutes discussing Advanced Directives. DIET The patient was counseled and encouraged to consider modifying their diet and eating habits. She was provided with information on recommended healthy diet options. (Patient was instructed on current BMI of 48.65 and a healthy BMI range of 18.5-25. Patient states she has recently lost 15 pounds and has noticed an improvement in her health.) EMERGENCY SUPPLIES AND FIRST AID The patient reports that she does not have first aid kit or emergency equipment available. She was provided with information about emergency preparedness, including first aid supplies. EXERCISE She is at risk for lack of exercise and has been provided with information to increase physical activity for the benefit of her well-being. FALL RISK She is at risk for falling and has been provided with information to reduce the risk of falling at home as well as outside the home. HEARING PROBLEM The patient was provided with written information and appropriate referrals to address her hearing problem. SLEEPING The patient was provided with suggestions to help her develop a regular sleeping pattern. UNSATISFACTORY HEALTH STATUS The patient was provided with suggestions to help her develop a healthy lifestyle. Specific health concerns will be addressed in detail at subsequent appointments. I reviewed all the information above with the patient and made screening recommendations based on my findings. ALEXANDRA FERNANDEZ RN I reviewed the patient's history, vitals from today, answers to the assessment and the services recommended by ALEXANDRA FERNANDEZ RN. I agree with the findings and recommendations. Cosigned by [place] Olivares MD at 09/16/2021 12:06 PM BROADCAST PRODUCER DCAST PRODUCER DCAST PRODUCER DCAST PRODUCER documented in this encounter Plan of Treatment Upcoming Encounters Date Type Department Care Team (Late st Contact Info) Description 10/03/2024 11:00 AM BROADCAST PRODUCER Office Visit [facility] Medical [facility] Pulmonology Specialty Clinic - [address] [address] Nathan Baig MD [address] [address] 11/14/2024 10:20 AM BROADCAST PRODUCER Office Visit [facility] Multispecialty Care - [place] [address] [address] [place] [address] [place] Olivares MD [facility] [address] [address] documented as of this encounter Visit Diagnoses Diagnosis Routine general medical examination at a health care facility- Primary documented in this encounter Additional Health Concerns Assessment Noted Time PHQ-9 Depression Total Score: 6 09/16/19 10:54 AM BROADCAST PRODUCER documented as of this encounter Care Teams Crushed Stone Grader Relationship Specialty Start Date End Date [place] Olivares MD [address] [place] [address] PCP - General INTERNAL MEDICINE 01/02/21 Nathan Baig MD 3 [place] [address] [address] Consulting Physician Internal Medicine Pulmonary Disease 09/16/21 documented as of this encounter
--- OUTSIDE RECORDS SUMMARY | 2024-09-07 05:25 | XMS_ITS | Encounter Summary ---
Author Organization [facility] Address [address] [place] [address]. [place] [id number] [place] [address] Care Team Providers Care Front Office Java Developer Name Role Phone [place] Olivares MD Primary Care Provider [phone] Nathan Baig MD Unavailable [phone] Reason for Visit * Reason Comments Lumbar Pain * Physical Medicine (Routine) - Closed Specialty Diagnoses / Procedures Referred By Heidi iverson Referred To Contact PHYSICAL THERAPY / [facility] Physical Therapy Diagnoses Chronic bilateral low back pain with [place] [address] [place] [address] Phone: tel: fax: [facility] Physical Therapy [address] [address] Phone: tel: fax: Referral ID Status Reason Start Date Expiration Date V isits Requested Visits Authorized [id number] Closed Physical Therapy 03/02/2022 04/01/2023 10 10 Encounter Details Date Type Department Care Team (Late st Contact Info) Description 03/24/2022 2:30 PM CDT Office Visit [facility] Physical Therapy [address] [place] [address] Darlene Rodgers PT Lumbar Pain Social History Tobacco Use Types [...] as of this encounter Progress Notes * Darlene Rodgers, PT - 03/24/2022 2:30 PM CDT Physical Therapy Visit Note: Patient Name: Keegan Amaya Diagnosis: Chronic bilateral low back pain with bilateral sciatica (primary encounter diagnosis) Personal Protective Equipment PPE Used During Visit: Therapist wore medical grade mask throughout session, Patient wore mask throughout session SUBJECTIVE Therapy Visit Treatment Day: 2 Total Approved Visits: 10 Therapy Plan of Care: stretching, core and hip strengthening Current Therapy Orders: eval and treat Diagnosis: chronic LBP with B sciatica Referring Provider: Elise Precautions: OA B knees Work Status: retired Subjective Note: Pt reports her knees were sore after riding the recumbent bike. She has no LBP today. Reported Falls since last visit: None Medications changes since last visit : None Pain Current Location of Pain: knees Current Pain Level: 11/19 OBJECTIVE Treatment provided today: Therapeutic Exercise - 89830 Number of Minutes - 79886: 38 Exercise: LTR x 10 B Exercise: hamstring stretches in supine B x 3 with 20 sec hold each Exercise: hip flexor stretches in supine B x 3 with 20 sec hold B Exercise: discussion of pool exercises Other (Comments): See education below Education Was Education Provided: Yes Topic: effect of weight loss on back and knee pain, getting referral to bee robber, pool ex Recipient: Patient Method: Verbal Response: Verbalized understanding ASSESSMENT Assessment Note: Pt had no back pain today, but her knees were sore from riding recumbent bike. 20 minutes were spent on discussing benefits of performing exercises in pool and answering pt's questions on getting referred to bee robber and how weight loss may decrease joint pain. Continue on Functional Deficit of: walking PLAN Plan Next Visit Plan: Begin core strengthening, continue to progress spinal mobility and stretching. Total Time Total Time in Minutes: 38 Timed Code Treatment Minutes : 38 documented in this encounter Plan of Treatment Upcoming Encounters Date Type Department Care Team (Late st Contact Info) Description 10/03/2024 11:00 AM TERMINAL PRESS OPERATOR Office Visit [facility] Medical Group Pulmonology Specialty Clinic - [address] [address] Nathan Baig MD [address] [place] [address] 11/14/2024 10:20 AM TERMINAL PRESS OPERATOR Office Visit [facility] Multispecialty Care - [place] [address] [address] [place] [address] [place] Olivares MD [facility] [address] [address] documented as of this encounter Visit Diagnoses Diagnosis Chronic bilateral low back pain with bilateral sciatica- Primary documented in this encounter Additional Health Concerns Infection Onset Date Last Indicated Resolved Time COVID-19 Rule Out 05/20/2022 05/20/2022 05/20/2022 10:50 AM CDT COVID-19 Rule Out 05/20/2022 05/20/2022 05/21/2022 1:20 AM CDT Assessment Noted Time PHQ-9 Depression Total Score: 5 01/06/20 22 10:48 AM CDT documented as of this encounter Care Teams Front Office Java Developer Relationship Specialty Start Date End Date [place] Olivares MD [address] [place] [address] PCP - General INTERNAL MEDICINE 01/02/21 Nathan Baig MD [address] [id number] Consulting Physician Internal Medicine Pulmonary Disease 09/16/21 documented as of this encounter
--- OUTSIDE RECORDS SUMMARY | 2024-09-07 05:25 | XMS_ITS | Encounter Summary ---
Author Organization [facility] Address [address] [place] [address]. [address] [address] Care Team Providers Care Blast Furnace Tender Name Role Phone [place] Olivares MD Primary Care Provider [phone] Reason for Referral * Imaging (Routine) - Closed Specialty Diagnoses / Procedures Referred By Heidi t Referred To Contact RADIOLOGY Diagnoses Abnormal mammogram Procedures US BREAST RT BIRAD LTD [place] Olivares MD [address] [address] Phone: tel: fax: [facility] [address] [place] [address] [place] [address] Phone: tel: fax: Referral ID Status Reason Start Date Expiration Date Visits Re quested Visits Authorized [id number] Closed 09/15/2021 10/16/2022 100 100 SPREADER * Imaging (Routine) - Closed Specialty Diagnoses / Procedures Referred By Contoziel t Referred To Contact RADIOLOGY Diagnoses Abnormal mammogram Procedures MG DIAGNOSTIC RT DIGI [place] Olivares MD [address] [address] Phone: tel: fax: [facility] [address] [place] [address] [place] [address] Phone: tel: fax: Referral ID Status Reason Start Date Expiration Date Visits Re quested Visits Authorized [id number] Closed 09/15/2021 10/16/2022 100 100 SPREADER Reason for Visit * Reason Onset Date Comments Results 09/15/2021 Encounter Details Date Type Department Care Team (Late st Contact Info) Description 09/15/2021 Telephone [facility] Medical Group Multispecialty Care - [place] 1188 [facility] [address] [place] [address] [place] Olivares MD 1188 [facility] [address] [place] [address] Results Social History Tobacco Use Types Packs/Day [...] have Coronavirus / COVID-19? No / Unsure 09/10/2021 9:35 AM MICA SPREADER documented as of this encounter Progress Notes * [place] Olivares MD - 09/15/2021 8:51 AM CST I received patient's mammogram done on 08/25/2021. No evidence of suspicious mass calcification or architectural distortion to suggest malignancy in the left breast. Right breast asymmetric in the middle and posterior third of breast in line with the nipple axis on the mediolateral oblique view at 11.1 cm and 16.5 cm depth. This may represent patient's baseline as no comparison available. I reviewed her mammogram from 08/2020 and normal mammogram reported. I called patient to discuss and she confirmed previous images have been normal. Will get a diagnostic mammogram and breast ultrasound of the right breast. Faxing over to [facility]. Scanned. [place] Olivares MD Internal Medicine [facility]. SPREADER documented in this encounter Plan of Treatment Upcoming Encounters Date Type Department Care Team (Late st Contact Info) Description 10/03/2024 11:00 AM MICA SPREADER Office Visit [facility] Pulmonology Specialty Clinic - [address] [address] Nathan Baig MD [address] [place] [address] 11/14/2024 10:20 AM MICA SPREADER Office Visit [facility] Multispecialty Care - [place] [address] [address] [place] [address] [place] Olivares MD [address] [address] Scheduled Orders Name Type Priority Associated Diagnoses Orde r Schedule MG DIAGNOSTIC RT DIGI MAMMO Routine Abnormal mammogram Ordered: 09/15/2021 US BREAST RT BIRAD LTD Ultrasound Routine Abnormal mammogram Expected: 09/15/2021, Expires: 03/15/2022 documented as of this encounter Visit Diagnoses Diagnosis Abnormal mammogram- Primary Abnormal mammogram, unspecified documented in this encounter Additional Health Concerns Assessment Noted Time PHQ-9 Depression Total Score: 3 07/06/20 21 9:34 AM CDT documented as of this encounter Care Teams Blast Furnace Tender Relationship Specialty Start Date End Date [place] Olivares MD [address] [place] [address] PCP - General INTERNAL MEDICINE 01/02/21 documented as of this encounter
--- OUTSIDE RECORDS SUMMARY | 2024-09-07 05:25 | XMS_ITS | Encounter Summary ---
Author Organization [facility] - [facility] Address [address] [place] [address]. [place], [place] [address] [place] [address] Care Team Providers Care Physician Liaison Name Role Phone [place] Olivares MD Primary Care Provider [phone] Nathan Baig MD Unavailable [phone] Reason for Visit * Reason Onset Date Comments Follow Up Call 01/14/2022 Encounter Details Date Type Department Care Team (Late st Contact Info) Description 01/14/2022 Telephone [facility] Medical Group Multispecialty Care - [place] [address] [address] [place] [address] [place] [address] [place] [address] [address] [place] [address] Follow Up Call Social History [...] suspected to have Coronavirus/COVID-19? No / Unsure 01/05/2022 9:50 AM CDT documented as of this encounter Progress Notes * [place] Olivares MD - 01/14/2022 10:12 AM CDT [facility] orders for breast images. All questions answered. documented in this encounter Plan of Treatment Upcoming Encounters Date Type Department Care Team (Late st Contact Info) Description 10/03/2024 11:00 AM BUSINESS OBJECTS ARCHITECT Office Visit [facility] Medical [facility] Pulmonology Specialty Clinic - [address] [address] Nathan Baig MD [address] [address] 11/14/2024 10:20 AM BUSINESS OBJECTS ARCHITECT Office Visit [facility] Multispecialty Care - [place] [address] [address] [place] [address] [place] Olivares MD [address] [address] documented as of this encounter Visit Diagnoses Not on filedocumented in this encounter Additional Health Concerns Assessment Noted Time PHQ-9 Depression Total Score: 5 01/06/20 10:48 AM CDT documented as of this encounter Care Teams Physician Liaison Relationship Specialty Start Date End Date [place] Olivares MD [address] [place] [address] PCP - General INTERNAL MEDICINE 01/02/21 Nathan Baig MD 3 [facility] [address] [place] [address] Consulting Physician Internal Medicine Pulmonary Disease 09/16/21 documented as of this encounter
--- OUTSIDE RECORDS SUMMARY | 2024-09-07 05:25 | XMS_ITS | Encounter Summary ---
Author Organization [facility] - [facility] Address [address] [place] [address]. [place], [place] [address] [place] [address] Care Team Providers Care Commercial Lending Vice President Name Role Phone [place] Olivares MD Primary Care Provider [phone] Nathan Baig MD Unavailable [phone] Reason for Visit * Reason Onset Date Comments Question 10/07/2021 Encounter Details Date Type Department Care Team (Late st Contact Info) Description 10/07/2021 Telephone [facility] Medical Group Multispecialty Care - [place] [address] [place] [address] [address] [place] [address] [place] Olivares MD 1188 [facility] 157 [place] [address] Question Social History Tobacco Use Types Packs/Day [...] have Coronavirus / COVID-19? No / Unsure 09/25/2021 8:58 AM SADDLE AND HARNESS MAKER documented as of this encounter Progress Notes * [place] Olivares MD - 10/07/2021 12:45 PM CST Patient called. All questions answered. She follows up tomorrow for her Ozempic medication. LE AND HARNESS MAKER * Sadi Saul Byrd - 10/07/2021 10:11 AM CST Patient called and was confused about her appointment on 10/08/21. She was not sure if she needed beatris seen. Please call patient to confirm if she needs to be seen. LE AND HARNESS MAKER documented in this encounter Plan of Treatment Upcoming Encounters Date Type Department Care Team (Late st Contact Info) Description 10/03/2024 11:00 AM SADDLE AND HARNESS MAKER Office Visit [facility] Medical Group Pulmonology Specialty Clinic - [address] [address] Nathan Baig MD [address] [place] [address] 11/14/2024 10:20 AM SADDLE AND HARNESS MAKER Office Visit [facility] Medical Group Multispecialty Care - [place] [address] [address] [place] [address] [place] Olivares MD [address] [place] [address] documented as of this encounter Visit Diagnoses Not on filedocumented in this encounter Additional Health Concerns Assessment Noted Time PHQ-9 Depression Total Score: 6 09/16/19 10:54 AM SADDLE AND HARNESS MAKER documented as of this encounter Care Teams Commercial Lending Vice President Relationship Specialty Start Date End Date [place] Olivares MD [address] [place] [address] PCP - General INTERNAL MEDICINE 01/02/21 Nathan Baig MD [address] [id number] Consulting Physician Internal Medicine Pulmonary Disease 09/16/21 documented as of this encounter
--- OUTSIDE RECORDS SUMMARY | 2024-09-07 05:25 | XMS_ITS | Encounter Summary ---
Author Organization [facility] Address [address] [place] [address]. [place], [place] [address] [place] [address] Care Team Providers Care Sales Donor Recruitment Representative Name Role Phone [place] Olivares MD Primary Care Provider [phone] Nathan Baig MD Unavailable [phone] Encounter Details Date Type Department Care Team (Latest Contact Info) Description 03/02/2022 Travel Social History Tobacco Use Types Packs/Day [...] suspected to have Coronavirus/COVID-19? No / Unsure 03/02/2022 9:40 AM CDT documented as of this encounter Plan of Treatment Upcoming Encounters Date Type Department Care Team (Late st Contact Info) Description 10/03/2024 11:00 AM ENGINEERING TECHNICIAN Office Visit [facility] Medical Group Pulmonology Specialty Clinic - [address] [place], [place] [address] Nathan Baig MD 3 [facility] [address] [place] [address] 11/14/2024 10:20 AM ENGINEERING TECHNICIAN Office Visit [facility] Medical Group Multispecialty Care - [place] [address] [address] [place] [address] [place] Olivares MD [facility] [address] documented as of this encounter Visit Diagnoses Not on filedocumented in this encounter Additional Health Concerns Assessment Noted Time PHQ-9 Depression Total Score: 5 01/06/20 10:48 AM CDT documented as of this encounter Care Teams Sales Donor Recruitment Representative Relationship Specialty Start Date End Date [place] Olivares MD [address] [place] [address] PCP - General INTERNAL MEDICINE 01/02/21 [place] Baig MD 3 [facility] [address] [place] [address] Consulting Physician Internal Medicine Pulmonary Disease 09/16/21 documented as of this encounter
--- OUTSIDE RECORDS SUMMARY | 2024-09-07 05:25 | XMS_ITS | Encounter Summary ---
Author Organization [facility] Address [address] [place] [address]. [place], [place] [address] [place] [address] Care Team Providers Care Bottom Brusher Name Role Phone [place] Olivares MD Primary Care Provider [phone] aNthan Baig MD Unavailable [phone] Reason for Visit * Reason Comments PFT (SCAN) Encounter Details Date Type Department Care Team (Latest Contact Info) Description 03/17/2022 Scan HEALTH INFO [facility] Scanned, Documents PFT (SCAN) Social History Tobacco Use Types [...] suspected to have Coronavirus/COVID-19? No / Unsure 03/24/2022 2:23 PM CDT documented as of this encounter Plan of Treatment Upcoming Encounters Date Type Department Care Team ( Contact Info) Description 10/03/2024 11:00 AM NURSERY SCHOOL ATTENDANT Office Visit [facility] Pulmonology Specialty Clinic - [place] [address] [address] [place] [address] Nathan Baig MD [address] [address] 11/14/2024 10:20 AM NURSERY SCHOOL ATTENDANT Office Visit [facility] Multispecialty Care - [place] 1188 [facility] [address] [place] [address] [place] Olivares MD 1188 [facility] 157 [place] [address] documented as of this encounter Procedures Procedure Name Priority Date/Time Associated Diagnosis Comments PFT GENERIC (SCAN ORDER) 03/17/2022 PFT GENERIC (SCAN ORDER) 03/17/2022 PFT GENERIC (SCAN ORDER) 03/17/2022 documented in this encounter Results * PFT GENERIC (03/17/2022) 03/17/2022 Narrative 03/17/2022 Ordered by an unspecified provider. us Documents Scanned SCANNING Final Result * PFT GENERIC (03/17/2022) 03/17/2022 Narrative 03/17/2022 Ordered by an unspecified provider. us Documents Scanned SCANNING Final Result * PFT GENERIC (03/17/2022) 03/17/2022 Narrative 03/17/2022 Ordered by an unspecified provider. us Documents Scanned SCANNING Final Result documented in this encounter Visit Diagnoses Not on filedocumented in this encounter Additional Health Concerns Assessment Noted Time PHQ-9 Depression Total Score: 5 04//20 22 10:48 AM CDT documented as of this encounter Care Teams Bottom Brusher Relationship Specialty Start Date End Date [place] Olivares MD [address] [address] PCP - General INTERNAL MEDICINE 01/02/21 [place] Baig MD [address] [address] Consulting Physician Internal Medicine Pulmonary Disease 09/16/21 documented as of this encounter
--- OUTSIDE RECORDS SUMMARY | 2024-09-07 05:25 | XMS_ITS | Encounter Summary ---
Author Organization [facility] Address [address] [place] [address]. [place], [place] [address] [place] [address] Care Team Providers Care Maintenance Repairer Name Role Phone [place] Olivares MD Primary Care Provider [phone] Nathan Baig MD Unavailable [phone] Encounter Details Date Type Department Care Team (Latest Contact Info) Description 04/02/2022 Travel Social History Tobacco Use Types Packs/Day [...] suspected to have Coronavirus/COVID-19? No / Unsure 04/02/2022 11:30 AM CDT documented as of this encounter Plan of Treatment Upcoming Encounters Date Type Department Care Team (Late st Contact Info) Description 10/03/2024 11:00 AM EXTENSION COURSE COUNSELOR Office Visit [facility] Medical Group Pulmonology Specialty Clinic - [address] [place], [place] [phone] Nathan Baig MD 3 [facility] [address] [place] [address] 11/14/2024 10:20 AM EXTENSION COURSE COUNSELOR Office Visit [facility] Group Multispecialty Care - [place] [address] [address] [place] [address] [place] Olivares MD [facility] [address] [address] documented as of this encounter Visit Diagnoses Not on filedocumented in this encounter Additional Health Concerns Assessment Noted Time PHQ-9 Depression Total Score: 5 01/06/20 10:48 AM CDT documented as of this encounter Care Teams Maintenance Repairer Relationship Specialty Start Date End Date [place] Olivares MD [address] [place] [address] PCP - General INTERNAL MEDICINE 01/02/21 [place] Baig MD 3 [facility] [address] [place] [address] Consulting Physician Internal Medicine Pulmonary Disease 09/16/21 documented as of this encounter
--- OUTSIDE RECORDS SUMMARY | 2024-09-07 05:25 | XMS_ITS | Encounter Summary ---
Author Organization [facility] Address [address] [place] [address]. [place], [place] [id number] [place] [id number] Care Team Providers Care Industrial Training Specialist Name Role Phone Tracy Olivares MD Primary Care Provider [phone] Nathan Baig MD Unavailable [phone] Reason for Visit * Reason Comments Mammogram (SCAN) Encounter Details Date Type Department Care Team ([facility] Contact Info) Description 01/14/2022 Scan HEALTH INFO [facility]VCS Scanned, Documents Mammogram (SCAN) Social History Tobacco Use Types [...] Upcoming Encounters Date Type Department Care Team ([facility] Contact Info) Description 10/03/2024 11:00 AM ANESTHESIOLOGY RESIDENT Office Visit [facility] [place] [address] [facility] [address] [place] [address] Nathan Baig MD [address] [address] 11/14/2024 10:20 AM ANESTHESIOLOGY RESIDENT Office Visit [facility] [place] [address] [facility] [address] [place] [address] Tracy Olivares MD [address] [facility] [address] [place] [address] documented as of this encounter Procedures Procedure Name Priority Date/Time Associated Diagnosis Comments MAMMOGRAM GENERIC (SCAN ORDER) 01/14/2022 MAMMOGRAM GENERIC (SCAN ORDER) 01/14/2022 documented in this encounter Results * MAMMOGRAM GENERIC (01/14/2022) Anatomical Region Laterality Modality Other 01/14/2022 Narrative 01/14/2022 Ordered by an unspecified provider. us Documents Scanned SCANNING Final Result * MAMMOGRAM GENERIC (01/14/2022) Anatomical Region Laterality Modality Other 01/14/2022 Narrative 01/14/2022 Ordered by an unspecified provider. us Documents [...] documented as of this encounter Care Teams Industrial Training Specialist Relationship Specialty Start Date End Date Tracy Olivares MD [address] [facility] [address] [place] [address] PCP - General INTERNAL MEDICINE 01/02/21 Nathan Baig MD [address] [address] Consulting Physician Internal Medicine Pulmonary Disease 09/16/21 documented as of this encounter
--- OUTSIDE RECORDS SUMMARY | 2024-09-07 05:25 | XMS_ITS | Encounter Summary ---
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 Mouth/Throat: Mouth: Mucous membranes are moist. Pharynx: Oropharynx is clear. No oropharyngeal exudate. Eyes: General: No scleral icterus. Right eye: No discharge. Left eye: No discharge. Conjunctiva/sclera: Conjunctivae normal. Pupils: Pupils are equal, round, and reactive to light. Neck: Thyroid: No thyromegaly. Vascular: No carotid bruit or JVD. Trachea: No tracheal deviation. Cardiovascular: Rate and Rhythm: Normal rate and regular rhythm. Pulses: Normal pulses. Heart sounds: Normal heart sounds. No murmur heard. No friction rub. No gallop. Pulmonary: Effort: Pulmonary effort is normal. No respiratory distress. Breath sounds: Normal breath sounds. No stridor. No wheezing, rhonchi or rales. Chest: Chest wall: No tenderness. Abdominal: General: Bowel sounds are normal. There is no distension. Palpations: Abdomen is soft. There is no mass. Tenderness: There is no abdominal tenderness. There is right CVA tenderness. There is no left CVA tenderness, guarding or rebound. Hernia: No hernia is present. Musculoskeletal: General: No swelling, tenderness, deformity or signs of injury. Normal range of motion. Cervical back: Normal range of motion and neck supple. No rigidity or tenderness. Right lower leg: No edema. Left lower [...] & Plan: Keegan was seen today for annual and sinus problem. Diagnoses and all orders for this visit: Annual physical exam - Patient past medical, [...] that would be relevant to care provided. Print out given to patient to get diagnostic mammogram and diagnostic breast ultrasound done - CBC W/DIFF AUTOMATED; Future - COMPREHENSIVE METABOLIC PANEL; Future - TSH W/REFLEX; Future - LIPID PANEL; Future - URINALYSIS, AUTO, COMPLETE - ALBUMIN URINE RANDOM - HEMOGLOBIN, GLYCOSYLATED; Future - VENIPUNC ARM DRAW - CBC W/DIFF AUTOMATED - COMPREHENSIVE METABOLIC PANEL - TSH W/REFLEX - LIPID PANEL - HEMOGLOBIN, GLYCOSYLATED General medical exam - CBC W/DIFF AUTOMATED; Future - COMPREHENSIVE METABOLIC PANEL; Future - TSH W/REFLEX; Future - LIPID PANEL; Future - URINALYSIS, AUTO, COMPLETE - ALBUMIN URINE RANDOM - HEMOGLOBIN, GLYCOSYLATED; Future - VENIPUNC ARM DRAW - CBC W/DIFF AUTOMATED - COMPREHENSIVE METABOLIC PANEL - TSH W/REFLEX - LIPID PANEL - HEMOGLOBIN, GLYCOSYLATED Screening for hypothyroidism - TSH W/REFLEX; Future - TSH W/REFLEX Moderate episode of recurrent major depressive disorder (CMS/HCC) - PHQ-9 and SAMIR-7 scores reviewed and appear controlled. Patient counseled for about 3 minutes on strategies including stress management, sleep hygiene, balanced diet, regular physical activity including aerobic exercise, weight reduction, activity pacing and maintenance of overall health lifestyle. Comorbidities including depression, anxiety currently being managed. Active nonpharmacological therapies including supervised and graded exercise program as well as cognitive behavioral interventions discussed as well. - Continue escitalopram 10 MG tablet; Take 1 tablet (10 mg total) by mouth daily. Pulmonary emphysema, unspecified emphysema type (CMS/HCC) - Stable and will follow up with pulmonary - Continue with albuterol as needed - Continue TRELEGY 100-62.5-25 MCG/INH AEROSOL POWDER, BREATH ACTIVATED; Inhale 1 puff into the lungs daily. Rinse and spit after use Essential hypertension - Patient currently controlled on current treatment for hypertension. Will continue. Continued to discuss weight loss, adequate cardiovascular fitness. DASH diet was discussed as well as decrease in sodium intake. BP goal of < 140/90 expressed. - CBC W/DIFF AUTOMATED; Future - COMPREHENSIVE METABOLIC PANEL; Future - TSH W/REFLEX; Future - LIPID PANEL; Future - URINALYSIS, AUTO, COMPLETE - HEMOGLOBIN, GLYCOSYLATED; Future - CBC W/DIFF AUTOMATED - COMPREHENSIVE METABOLIC PANEL - TSH W/REFLEX - LIPID PANEL - HEMOGLOBIN, GLYCOSYLATED - Continue losartan-hydroCHLOROthiazide 100-12.5 MG Tab; Take 1 tablet by mouth daily. Mixed hyperlipidemia - Stable and tolerating medication - LIPID PANEL; Future - LIPID PANEL - Continue atorvastatin 20 MG tablet; Take 1 tablet (20 mg total) by mouth nightly at bedtime. at bedtime Prediabetes - CBC W/DIFF AUTOMATED; Future - COMPREHENSIVE METABOLIC PANEL; Future - URINALYSIS, AUTO, COMPLETE - ALBUMIN URINE RANDOM - HEMOGLOBIN, GLYCOSYLATED; Future - Start SITagliptin 100 MG tablet; Take 1 tablet (100 mg total) by mouth daily. - Ambulatory Referral to Ophthalmology - CBC W/DIFF AUTOMATED - COMPREHENSIVE METABOLIC PANEL - HEMOGLOBIN, GLYCOSYLATED Anxiety - Stable - PHQ-9 and SAMIR-7 scores reviewed and appear controlled. Patient counseled for about 3 minutes on strategies including stress management, sleep hygiene, balanced diet, regular physical activity including aerobic exercise, weight reduction, activity pacing and maintenance of overall health lifestyle. Comorbidities including depression, anxiety currently being managed. Active nonpharmacological therapies including supervised and graded exercise program as well as cognitive behavioral interventions discussed as well. - Continue with lexapro 10 mg daily Chronic bilateral low back pain with bilateral sciatica - Stable and following with therapy - Use traMADol 50 MG tablet; Take 1 tablet (50 mg total) by mouth 2 (two) times daily as needed forPain. Indications: Chronic Pain Chronic left shoulder pain - Stable - Use tramadol as needed for pain; follow with therapy - Use tiZANidine 4 MG tablet; Take 0.5 tablets (2 mg total) by mouth nightly at bedtime. at bedtime RLS (restless legs syndrome) - stable; continue with ropinorole Chronic pain of both knees - Stable ; continue with physical therapy - Use traMADol 50 MG tablet; Take 1 tablet (50 mg total) by mouth 2 (two) times daily as needed forPain. Indications: Chronic Pain FAISAL on CPAP - continue to use CPAP and follow up with pulmonary Class 3 severe obesity due to excess calories without serious comorbidity with body mass index (BMI) of 50.0 to 59.9 in adult ([facility]) - CBC W/DIFF AUTOMATED; Future - COMPREHENSIVE METABOLIC PANEL; Future - TSH W/REFLEX; Future - CBC W/DIFF AUTOMATED - COMPREHENSIVE METABOLIC PANEL - TSH W/REFLEX - Start phentermine 37.5 MG tablet; Take 1 tablet (37.5 mg total) by mouth every other day. - Cannot tolerate GLP-1 and metformin - Follow up in 4 weeks - -Pt has elevated weight with BMI Body mass index is 49.66 kg/m??., and will need to work hard on reducing carbohydrates and total calories. -You may use the free smart phone apps such as [employer] to help track calories and try to [...] per week and 5 pounds per month. Hearing loss of left ear, unspecified hearing loss type - stable Gastroesophageal reflux disease without esophagitis - stable and will follow up with gastroenterology for further evaluation; continue with PPI Glaucoma, unspecified glaucoma type, unspecified laterality - Follow with ophthalmology; stable Cataract, unspecified cataract type, unspecified laterality - Follow with ophthalmology; stable Drug therapy - DRUG MONITORING, PANEL 7, WITH CONFIRMATION, (U); Future - DRUG MONITORING, PANEL 7, WITH CONFIRMATION, (U) Acute maxillary sinusitis, recurrence not specified Patient with acute sinusitis. Patient meeting criteria for ABRS, reasons to consider abx of symptoms longer than 10 days with no clinical improvement, onset with severe symptoms (fever > 39 C or 102 F and purulent nasal discharge or facial pain) lasting at least three consecutive days at the beginning of the illness. Onset of worsening symptoms following a viral URI infection that lasted five to six days and was initially improving. Will give abx therapy based on rule in criteria. Patient agrees with course of action. Will treat with prescribed medication. If no relief in the next 3-4 dayspatient is to return for further workup or change in medications. - Use amoxicillin-clavulanate (AUGMENTIN) 875-125 MG tablet; Take 1 tablet (875 mg total) by mouth 2 (two) times daily for 7 days. Type 2 diabetes mellitus with hyperglycemia, without long-term current use of insulin ([facility]) - Stable; currently prediabetic; needs diabetic eye exam; on januvia, cannot tolerate sermaglutide and metformin due to GI side effects Seasonal allergic rhinitis due to pollen - stable - Continue albuterol sulfate HFA 108 (90 Base) MCG/ACT inhaler; Inhale 2 puffs into the lungs every4 (four) hours as needed. - Continue Azelastine HCl 0.15 % Solution; azelastine 205.5 mcg (0.15 %) nasal spray SPRAY 2 SPRAY(S) TWICE A DAY BY INTRANASAL ROUTE FOR 30 DAYS. Generalized anxiety disorder - PHQ-9 and SAMIR-7 scores reviewed and appear controlled and without any suicidal ideations. Patientcounseled for about 3 minutes on strategies including stress management, sleep hygiene, balanced diet, regular physical activity including aerobic exercise, weight reduction, activity pacing and maintenance of overall health lifestyle. Comorbidities including depression, anxiety currently being managed. Active nonpharmacological therapies including supervised and graded exercise program as well as cognitive behavioral interventions discussed as well. - Continue escitalopram 10 MG tablet; Take 1 tablet (10 mg total) by mouth daily. Idiopathic peripheral neuropathy - stable - Use gabapentin 100 MG capsule; Take 2 capsules (200 mg total) by mouth 3 (three) times daily. Low back pain due to bilateral sciatica - use tiZANidine 4 MG tablet; Take 0.5 tablets (2 mg total) by mouth nightly at bedtime. at bedtime - Use tramadol 50 mg twice daily as needed - Continue with physical therapy I spent 30 Minutes for her physical and 30 minutes today reviewing the patient's medical record, obtaining history, performing an exam, ordering medications, tests, and/or procedures, documenting in the medical record, referring and/or communicating with other health care providers, counseling and educating the patient/family/caregiver, reviewing and communicating test results and coordination ofcare. NILESH: This dictation was at least in part performed using [employer] speak and there may be some inherent flaws in this commercial green retrofit architect due to the nature of this program. MD Tracy PASCAL MD Internal Medicine [facility], [facility]. documented in this encounter Plan of Treatment Upcoming Encounters Date Type Department Care Team (Late st Contact Info) Description 10/03/2024 11:00 AM MACHINE I CUTTER Office Visit [facility] [place] [address] [address] [place] [address] Nathan Baig MD [address] [address] [place] [address] 11/14/2024 10:20 AM MACHINE I CUTTER Office Visit [facility] Multispecialty Care - [place] [address] [address] [address] [place] [address] Tracy Olivares MD [address] [place] [address] Scheduled Referrals Name Type Priority Associated Diagnoses Orde r Schedule Ambulatory Referral to Ophthalmology Referral Routine Prediabetes Ordered: 01/05/2022 documented as of this encounter Procedures Procedure Name Priority Date/Time Associated Diagnosis Comments DRUG MONITORING, PANEL 7, WITH CONFIRMATION, (U) Routine 01/05/2022 10:40 AM CDT Drug therapy TSH W/REFLEX Routine 01/05/2022 10:40 AM CDT Annual physical exam General medical exam Screening for hypothyroidism Essential hypertension Class 3 severe obesity due to excess calories without serious comorbidity with body mass index (BMI) of 50.0 to 59.9 in adult ([facility] HHS/HCC) HEMOGLOBIN, GLYCOSYLATED Routine 01/05/2022 10:40 AM CDT Annual physical exam General medical exam Essential hypertension Prediabetes COMPREHENSIVE METABOLIC PANEL Routine 01/05/2022 10:40 AM CDT Annual physical exam General medical exam Essential hypertension Prediabetes Class 3 severe obesity due to excess calories without serious comorbidity with body mass index (BMI) of 50.0 to 59.9 in adult ([facility] HHS/HCC) LIPID PANEL Routine 01/05/2022 10:40 AM CDT Annual physical exam General medical exam Essential hypertension Mixed hyperlipidemia CBC W/DIFF AUTOMATED Routine 01/05/2022 10:40 AM CDT Annual physical exam General medical exam Essential hypertension Prediabetes Class 3 severe obesity due to excess calories without serious comorbidity with body mass index (BMI) of 50.0 to 59.9 in adult ([facility] HHS/HCC) VENIPUNC ARM DRAW Routine 01/05/2022 10: 20 AM CDT Annual physical exam General medical exam URINALYSIS, AUTO, COMPLETE Routine 01/05/2022 Annual physical exam General medical exam Essential hypertension Prediabetes ALBUMIN URINE RANDOM W/CREATININE Routine 01/05/2022 Annual physical exam General medical exam Prediabetes documented in this encounter Results * DRUG MONITORING, PANEL 7, WITH CONFIRMATION, (U) (01/05/2022 10:40 AM CDT) ALCOHOL METABOLITES (U) NEGATIVE <500 ng/mL [facility] AMPHETAMINES PM NEGATIVE <500 ng/mL [facility] BARBITURATES PM (U) NEGATIVE <300 ng/mL [facility] BENZODIAZEPINES PM (U) NEGATIVE <100 ng/mL [facility] COCAINE METABOLITE PM (U) NEGATIVE <150 ng/mL [facility] MORPHINE (U) NEGATIVE <10 ng/mL [facility] MARIJUANA METABOLITE PM (U) NEGATIVE <20 ng/mL [facility] METHADONE PM (U) NEGATIVE <100 ng/mL [facility] OPIATES PM (U) NEGATIVE <100 ng/mL [facility] OXYCODONE PM (U) NEGATIVE <100 ng/mL [facility] CREATININE RANDOM URINE 79.2 > or = 20.0 mg/dL [facility] pH PM (U) 7.1 4.5 - 9.0 [facility] OXIDANT NEGATIVE <200 mcg/mL [facility] Note [facility] Comment: This drug testing is for medical treatment only. Analysis was performed as non-forensic testing and these results should be used only by healthcare providers to render diagnosis or treatment, or to monitor progress of medical conditions. LDT Notes: Confirmation tests were developed and their analytical performance characteristics have been determined by [facility]. It has not been cleared or approved by the FDA. This assay has been validated pursuant to the CLIA regulations and is used for clinical purposes. Healthcare Providers needing Interpretation assistance, please contact us at [phone] ( ) M-F, 8am to 10pm EST 01/05/2022 10:4 0 AM CDT 01/06/2022 5:42 AM CDT Tracy Olivares MD LABORATORY Final Result Performing Organization Address City/[facility] Co de Phone Number [facility] [address] [place] [address] [facility] [address] [place] [address] * HEMOGLOBIN, GLYCOSYLATED (01/05/2022 10:40 AM CDT) HGB A1C 5.6 <5.7 % of total Hgb [facility] Comment: For the purpose of screening for the presence of diabetes: <5.7% ? Consistent with the absence of diabetes 5.7-6.4% ?Consistent with increased risk for diabetes ?(prediabetes) > or =6.5% ??Consistent with diabetes This assay result is consistent with a decreased risk of diabetes. Currently, no consensus exists regarding use of hemoglobin A1c for diagnosis of diabetes in children. According to [place] Diabetes Association (ADA) guidelines, hemoglobin A1c <7.0% represents optimal control in non- diabetic patients. Different metrics may apply to specific patient populations. Standards of Medical Care in Diabetes(ADA). ?? 01/05/2022 10:4 0 AM CDT 01/06/2022 5:42 AM CDT Tracy Olivares MD LABORATORY Final Result [facility] [address] [address] * LIPID PANEL (01/05/2022 10:40 AM CDT) CHOLESTEROL 157 <200 mg/dL [facility] HDL 68 > OR = 50 mg/dL [facility] TRIGLYCERIDES 109 <150 mg/dL [facility] LDL (CALCULATED) 70 mg/dL (calc) [facility] Comment: Reference [...] LDL-C. Buddy SS et al. PORTER. 2013;310(19): 0836-4197 (http://education.[employer]/faq/IFD363) CHOL/HDL RATIO 2.3 <5.0 (calc) [facility] NON HDL CHOLESTEROL 89 <130 mg/dL (calc) [facility] Comment: For patients with diabetes plus 1 major ASCVD risk factor, treating to a non-HDL-C goal of <100 mg/dL (LDL-C of <70 mg/dL) is considered a therapeutic option. 01/05/2022 10:4 0 AM CDT 01/06/2022 5:42 AM CDT Tracy Olivares MD LABORATORY Final Result [facility] [address] [address] * TSH W/REFLEX (01/05/2022 10:40 AM CDT) TSH 2.88 0.40 - 4.50 mIU/L [facility] 01/05/2022 10:4 0 AM CDT 01/06/2022 5:42 AM CDT Tracy Olivares MD LABORATORY Final Result [facility] [address] [address] * (ABNORMAL) COMPREHENSIVE METABOLIC PANEL (01/05/2022 10:40 AM CDT) Pathologist [facility] GLUCOSE 107(H) 65 - 99 mg/dL [facility] Comment: ? Fasting reference interval For someone without known diabetes, a glucose value between 100 and 125 mg/dL is consistent with prediabetes and should be confirmed with a follow-up test. BUN 14 7 - 25 mg/dL [facility] CREATININE S/P/B 0.72 0.50 - 0.99 mg/dL [facility] Comment: For patients >49 years of age, the reference limit for Creatinine is approximately 13% higher for people identified as -Ind[place]ian. EGFR NON-AFR. AMER. 87 > OR = 60 mL/min/1 .73m2 [facility] EGFR AFR. AMER. 101 > OR = 60 mL/min/1 .73m2 [facility] BUN CREATININE RATIO NOT APPLICABLE 6 - 22 (calc) [facility] SODIUM S/P/B 142 135 - 146 mmol/L [facility] POTASSIUM S/P/B 4.1 3.5 - 5.3 mmol/L [facility] CHLORIDE S/P/B 105 98 - 110 mmol/L [facility] CO2 28 20 - 32 mmol/L [facility] CALCIUM S/P/B 9.3 8.6 - 10.4 mg/dL [facility] TOTAL PROTEIN S/P/B 6.6 6.1 - 8.1 g/dL [facility] ALBUMIN S/P/B 3.9 3.6 - 5.1 g/dL [facility] GLOBULIN 2.7 1.9 - 3.7 g/dL (calc) [facility] ALBUMIN/GLOBULIN RATIO 1.4 1.0 - 2.5 (calc) [facility] BILIRUBIN TOTAL S/P/B 0.4 0.2 - 1.2 mg/dL [facility] ALKALINE PHOSPHATASE S/P/B 129 37 - 153 U/L [facility] AST 13 10 - 35 U/L [facility] ALT 10 6 - 29 U/L [facility] 01/05/2022 10:4 0 AM CDT 01/06/2022 5:42 AM CDT us Tracy Olivares MD LABORATORY Final Result [facility] [address], [place] [address] * (ABNORMAL) CBC W/DIFF AUTOMATED (01/05/2022 10:40 AM CDT) WBC 6.5 3.8 - 10.8 Thousand/u L [facility] RBC 4.08 3.80 - 5.10 Million/uL [facility] HGB 11.6(L) 11.7 - 15.5 g/dL [facility] HCT 36.8 35.0 - 45.0 % [facility] MCV 90.2 80.0 - 100.0 fL [facility] MCH 28.4 27.0 - 33.0 pg [facility] MCHC 31.5(L) 32.0 - 36.0 g/dL [facility] RDW 13.7 11.0 - 15.0 % [facility] PLT 310 140 - 400 Thousand/u L [facility] MPV 11.0 7.5 - 12.5 fL [facility] ABS. NEUTROPHILS 3,751 1,500 - 7,800 cells/uL [facility] ABS. LYMPHOCYTES 1,996 850 - 3,900 cells/uL [facility] ABS. MONOCYTES 475 200 - 950 cells/uL [facility] ABS. EOSINOPHILS 241 15 - 500 cells/uL [facility] ABS. BASOPHILS 39 0 - 200 cells/uL [facility] SEG NEUTROPHILS 57.7 % [facility] LYMPHOCYTES 30.7 % [facility] MONOCYTES 7.3 % [facility] EOSINOPHILS 3.7 % [facility] BASOPHILS 0.6 % [facility] 01/05/2022 10:4 0 AM CDT 01/06/2022 5:42 AM CDT Tracy Olivares MD LABORATORY Final Result [facility] [address] [facility] [place] [address] * ALBUMIN URINE RANDOM (01/05/2022) MICROALBUMIN (U) 10mg MG- [address], JOINER CREATININE RANDOM (U) 200mg MG-[address], JOINER MICROALB/CREAT normal MG-[address], [facility] URINE SPECIMEN / Unknown 01/05/2022 Tracy Olivares MD URINE ORDERABLES Final Result [facility], [facility] [address] [place] [address], [place] [phone] * URINALYSIS, AUTO, COMPLETE (01/05/2022) COLOR (U) YELLOW MG[address], [facility] TRANSPARENCY CLEAR MG[address], [facility] GLUCOSE (U) NEGATIVE NEGATIVE MG/DL MG-[address], [place] BILIRUBIN (U) NEGATIVE NEGATIVE MG-[address], [place] KETONES MG/DL (U) NEGATIVE NEGATIVE MG/DL MG-[address], JOIN[place] SPECIFIC GRAVITY (U) 1.020 1.001 - 1.035 MG[address], [place] BLOOD (U) NEGATIVE NEGATIVE MG-[address], JOIN[place] U PH 6.5 5.0 - 9.0 MG-[address], [place] PROTEIN (U) NEGATIVE NEGATIVE mg/dL MG-[address], JOINER UROBILINOGEN 0.2 0.2 - 1.0 EU/dL = mg/dL MG-[address], JOIN[place] NITRITES NEGATIVE NEGATIVE MG/DL MG-[address], JOINER LEUKOCYTES (U) NEGATIVE NEGATIVE MG-[address], JOINER URINE SPECIMEN OBTAINED BY CLEAN CATCH PROCEDURE / Unknown 01/05/2022 us Tracy Olivares MD URINE ORDERABLES Final Result MG-[address], [facility] [address] [facility] [place] [address], [place] [phone] documented in this encounter Visit Diagnoses Diagnosis Annual physical exam- Primary Routine general medical examination at a health care facility General medical exam Unspecified general medical examination Screening for hypothyroidism Screening for thyroid disorder Moderate episode of recurrent major depressive disorder ([facility]) Pulmonary emphysema, unspecified emphysema type ([facility]) Essential hypertension Unspecified essential hypertension Mixed hyperlipidemia Prediabetes Other abnormal glucose Anxiety Anxiety state, unspecified Chronic bilateral low back pain with bilateral sciatica Chronic left shoulder pain Pain in joint, shoulder region RLS (restless legs syndrome) Restless legs syndrome (RLS) Chronic pain of both knees FAISAL on CPAP Obstructive sleep apnea (adult) (pediatric) Class 3 severe obesity due to excess calories without serious comorbidity with body mass index (BMI) of 50.0 to 59.9 in adult ([facility]) Hearing loss of left ear, unspecified hearing loss type Gastroesophageal reflux disease without esophagitis Esophageal reflux Glaucoma, unspecified glaucoma type, unspecified laterality Cataract, unspecified cataract type, unspecified laterality Drug therapy Encounter for long-term (current) use of other medications Acute maxillary sinusitis, recurrence not specified Type 2 diabetes mellitus with hyperglycemia, without long-term current use of insulin ([facility]) Seasonal allergic rhinitis due to pollen Generalized anxiety disorder Idiopathic peripheral neuropathy Unspecified hereditary and idiopathic peripheral neuropathy Low back pain due to bilateral sciatica documented in this encounter Additional Health Concerns Assessment Noted Time PHQ-9 Depression Total Score: 5 01/06/20 22 10:48 AM CDT documented as of this encounter Care Teams Homeowner Association Manager Relationship Specialty Start Date End Date Tracy Olivares MD [address] [facility] [address] [place] [address] PCP - General INTERNAL MEDICINE 01/02/21 Nathan Baig MD [address] [address] Consulting Physician Internal Medicine Pulmonary Disease 09/16/21 documented as of this encounter
--- OUTSIDE RECORDS SUMMARY | 2024-09-07 05:25 | XMS_ITS | Encounter Summary ---
Author Organization [facility] Address [address] [place] [address]. [place], [place] [address] [place] [address] Care Team Providers Care Manager Biostatistics Name Role Phone Tracy Olivares MD Primary Care Provider [phone] Nathan Baig MD Unavailable [phone] Reason for Visit * Reason Onset Date Comments Other 02/09/2022 Refill request Encounter Details Date Type Department Care Team (Late st Contact Info) Description 02/09/2022 Telephone [facility] Medical Group Multispecialty Care - [place] [address] [address] [place] [address] [place] [address] [place] [address] 157 [place] [address] Other (Refill request) Social History Tobacco Use Types Packs/Day Years [...] as of this encounter Progress Notes * Sadi Byrd - 02/09/2022 9:54 AM CDT Patient called and wants a refill on Tr[facility]ad[facility] [place]. She is getting ready to go onvacation and only has 1 pill left. documented in this encounter Plan of Treatment Upcoming Encounters Date Type Department Care Team (Late st Contact Info) Description 10/03/2024 11:00 AM TELEHEALTH DIRECTOR Office Visit [facility]ty Clinic - [address] [address] Nathan Baig MD [address] [place] [address] 11/14/2024 10:20 AM TELEHEALTH DIRECTOR Office Visit [facility] Medical Group Multispecialty Care - [place] [address] [address] [place] [address] Tracy Olivares MD [address] [place] [address] documented as of this encounter Visit Diagnoses Diagnosis Chronic bilateral low back pain with bilateral sciatica Chronic pain of both knees documented in this encounter Additional Health Concerns Infection Onset Date Last Indicated Resolved Time COVID-19 Confirmed 01/19/2022 01/19/2022 12:32 AM CDT Assessment Noted Time PHQ-9 Depression Total Score: 5 01/06/20 22 10:48 AM CDT documented as of this encounter Care Teams Manager Biostatistics Relationship Specialty Start Date End Date Tracy Olivares MD [address] [place] [address] PCP - General INTERNAL MEDICINE 01/02/21 Nathan Baig MD [address] [id number] Consulting Physician Internal Medicine Pulmonary Disease 09/16/21 documented as of this encounter
--- OUTSIDE RECORDS SUMMARY | 2024-09-07 05:25 | XMS_ITS | Encounter Summary ---
Author Organization [facility] - [facility] Address [address] [place] [address]. [place], [place] [address] [place] [address] Care Team Providers Care Employment Assistant Name Role Phone Tracy Olivares MD Primary Care Provider [phone] Nathan Baig MD Unavailable [phone] Reason for Visit * Reason Onset Date Comments Medication 10/14/2021 Encounter Details Date Type Department Care Team (Late st Contact Info) Description 10/14/2021 Telephone [facility] Medical Group Multispecialty Care - [place] [address] [place] [address] [address] [place] [address] [place] [address] [place] [address] 157 [place] [address] Medication Social History Tobacco Use Types Packs/Day [...] have Coronavirus / COVID-19? No / Unsure 10/08/2021 9:29 AM MANAGEMENT COORDINATOR documented as of this encounter Progress Notes * Tracy Olivares MD - 10/14/2021 9:21 AM CST Prefers to stay on the 0.5 mg weekly for sometime prior to transitioning to the 1mg-script sent. GEMENT COORDINATOR documented in this encounter Plan of Treatment Upcoming Encounters Date Type Department Care Team (Late st Contact Info) Description 10/03/2024 11:00 AM MANAGEMENT COORDINATOR Office Visit [facility] Medical [facility] Pulmonology Specialty Clinic - [address] [address] Nathan Baig MD [address] [address] 11/14/2024 10:20 AM MANAGEMENT COORDINATOR Office Visit [facility] Medical [facility] Multispecialty Care - [place] [address] [address] [place] [address] [place] [address] [place] [address] documented as of this encounter Visit Diagnoses Diagnosis Prediabetes- Primary Other abnormal glucose Class 3 severe obesity due to excess calories without serious comorbidity with body mass index (BMI) of 50.0 to 59.9 in adult ([facility]/HCC HHS/[facility]) documented in this encounter Additional Health Concerns Assessment Noted Time PHQ-9 Depression Total Score: 6 09/16/19 10:54 AM MANAGEMENT COORDINATOR documented as of this encounter Care Teams Employment Assistant Relationship Specialty Start Date End Date Tracy Olivares MD [address] [place] [address] PCP - General INTERNAL MEDICINE 01/02/21 Nathan Baig MD [address] [address] Consulting Physician Internal Medicine Pulmonary Disease 09/16/21 documented as of this encounter
--- OUTSIDE RECORDS SUMMARY | 2024-09-07 05:25 | XMS_ITS | Encounter Summary ---
Author Organization [facility] Address [address] [place] [address]. [place], [place] [address] [place] [address] Care Team Providers Care Tool Builder Name Role Phone Tracy Olivares MD Primary Care Provider [phone] Nathan Baig MD Unavailable [phone] Reason for Visit * Reason Onset Date Comments Results 03/31/2022 Encounter Details Date Type Department Care Team (Late st Contact Info) Description 03/31/2022 Telephone [facility] Medical [facility] Multispecialty Care - [facility] 3 [facility] [address] [place] [address] Nathan Baig MD 3 [facility] [address] [place], [place] [id number] Results Social History Tobacco Use Types Packs/Day [...] Progress Notes * Lynette Pink MA - 03/31/2022 2:47 PM CDT Called medical records at [place] and they are going to fax the graphics * Nathan Baig MD - 03/31/2022 2:39 PM CDT I received a pulmonary function test performed 03/17/2022 at [facility], the report indicates a normal study. Please try to obtain the flow-volume loops prior to her follow-up with me next month. Nathan Baig MD documented in this encounter Plan of Treatment Upcoming Encounters Date Type Department Care Team (Late st Contact Info) Description 10/03/2024 11:00 AM COLLOID MILL OPERATOR Office Visit [facility] Pulmonology Specialty Clinic - [address] [address] Nathan Baig MD [address] [place] [address] 11/14/2024 10:20 AM COLLOID MILL OPERATOR Office Visit [facility] Medical Group Multispecialty Care - [place] [address] [address] [place] [address] Tracy Olivares MD [address] [place] [address] 157 [place] [address] documented as of this encounter Visit Diagnoses Not on filedocumented in this encounter Additional Health Concerns Assessment Noted Time PHQ-9 Depression Total Score: 5 01/06/20 10:48 AM CDT documented as of this encounter Care Teams Tool Builder Relationship Specialty Start Date End Date Tracy Olivares MD 1188 [facility] [address] [place] [id number] PCP - General INTERNAL MEDICINE 01/02/21 Nathan Baig MD [address] [address] Consulting Physician Internal Medicine Pulmonary Disease 09/16/21 documented as of this encounter
--- OUTSIDE RECORDS SUMMARY | 2024-09-07 05:25 | XMS_ITS | Encounter Summary ---
Author Organization [facility] - [facility] Address [address] [place] [address]. [place] [address] [place] [address] Care Team Providers Care Green Jobs Trainer Name Role Phone Tracy Olivares MD Primary Care Provider [phone] Nathan Baig MD Unavailable [phone] Reason for Visit * Reason Comments Allied Health Visit Encounter Details Date Type Department Care Team (Latest Contact Info) Description 09/25/2021 9:15 AM Z OS MAINFRAME SYSTEMS PROGRAMMER Allied Health/Nurse Visit [facility] Medical Group Multispecialty Care - [place] [address] [address] [place] [address] Tracy Olivares MD [address] [place] [address] 157 [place] [address] Allied Health Visit Social History Tobacco Use Types Packs/Day [...] COVID-19? No / Unsure 09/25/2021 8:58 AM Z OS MAINFRAME SYSTEMS PROGRAMMER documented as of this encounter Patient Instructions * Patient Instructions* Tracy Olivares MD - 09/25/2021 9:15 AM Z OS MAINFRAME SYSTEMS PROGRAMMER How to use your Sermaglutide pen 1. First wash your hands. 2. Take your pen out of the fridge and uncap the top. 3. Place your needle on the top and screw on. 4. Safely uncap the needle top. 5. Check the flow by screwing the bottom to allow the 2 dots align with the arrow then gently presson the bottom to see if you see a small drop come of the needle- this means your needle is working well. 6. Now choose the dose you need to give yourself; make sure it aligns with the pointer marker. 7. Now place the needle on your abdomen or thigh and press the button till you hear a click and/or the pointer marker resets to zero. Hold your needle still in place and count slowly for 6 seconds then remove the pen from your body. 8. Remove the needle from the top and safely dispose in a safe container. Place you cap back on andstore in your fridge. 9. Should you need help please call the helpline on [phone]. Z OS MAINFRAME SYSTEMS PROGRAMMER documented in this encounter Progress Notes * Parul Francisco MA - 09/25/2021 9:15 AM CSTAddended by: PARUL FRANCISCO on: 10/06/2021 03:50 PM Modules accepted: Level of Service Z OS MAINFRAME SYSTEMS PROGRAMMER documented in this encounter Plan of Treatment Upcoming Encounters Date Type Department Care Team (Late st Contact Info) Description 10/03/2024 11:00 AM Z OS MAINFRAME SYSTEMS PROGRAMMER Office Visit [facility] Medical Group Pulmonology Specialty Clinic - [address] [place] [address] Nathan Baig MD [address] [place] [address] [place] [address] 11/14/2024 10:20 AM Z OS MAINFRAME SYSTEMS PROGRAMMER Office Visit [facility] Medical Group Multispecialty Care - [address] [place] [address] Tracy Olivares MD 1188 [facility] 157 [place] [address] documented as of this encounter Visit Diagnoses Diagnosis Prediabetes- Primary Other abnormal glucose documented in this encounter Additional Health Concerns Assessment Noted Time PHQ-9 Depression Total Score: 6 09/16/19 10:54 AM Z OS MAINFRAME SYSTEMS PROGRAMMER documented as of this encounter Care Teams Green Jobs Trainer Relationship Specialty Start [place] [address] [place] [address] 157 [place] [address] PCP - General INTERNAL MEDICINE 01/02/21 Nathan Baig MD [address] [address] Consulting Physician Internal Medicine Pulmonary Disease 09/16/21 documented as of this encounter
--- OUTSIDE RECORDS SUMMARY | 2024-09-07 05:25 | XMS_ITS | Encounter Summary ---
Author Organization [facility] Address [address] [place] [address]. [place], [place] [address] [place] [address] Care Team Providers Care Manager Graphic Name Role Phone Tracy Olivares MD Primary Care Provider [phone] Nathan Baig MD Unavailable [phone] Reason for Visit * Reason Onset Date Comments Question 10/05/2021 Question on if p atient should have procedure due to sinus issues Encounter Details Date Type Department Care Team (Late st Contact Info) Description 10/05/2021 Telephone [facility] Medical Group Multispecialty Care - [place] [address] [place] [address] [address] [place] [address] Tracy Olivares MD 1188 [facility] 157 [place] [address] Question (Question on if patient should have procedure due to sinus issues) Social History Tobacco Use Types [...] COVID-19? No / Unsure 09/25/2021 8:58 AM MACHINE WOODWORKING SANDER documented as of this encounter Progress Notes * Tracy Olivares MD - 10/05/2021 2:25 PM CST Patient called- no response. INE WOODWORKING SANDER * Sadi Byrd - 10/05/2021 10:07 AM CST Patient called with concerns about having a scope done tomorrow with her sinus issues. Patient would like you to call her to discuss issue. INE WOODWORKING SANDER documented in this encounter Plan of Treatment Upcoming Encounters Date Type Department Care Team (Late st Contact Info) Description 10/03/2024 11:00 AM MACHINE WOODWORKING SANDER Office Visit [facility] Medical Group Pulmonology Specialty Clinic - [address] [address] Nathan Baig MD [address] [place] [address] 11/14/2024 10:20 AM MACHINE WOODWORKING SANDER Office Visit [facility] Medical [facility] Multispecialty Care - [place] [address] [address] [place] [address] Tracy Olivares MD Counts include 234 beds at the [facility] [address] documented as of this encounter Visit Diagnoses Not on filedocumented in this encounter Additional Health Concerns Assessment Noted Time PHQ-9 Depression Total Score: 6 09/16/19 10:54 AM MACHINE WOODWORKING SANDER documented as of this encounter Care Teams Manager Graphic Relationship Specialty Start Date End Date Tracy Olivares MD [address] [place] [address] PCP - General INTERNAL MEDICINE 01/02/21 Nathan Baig MD [address] [address]67[address] Consulting Physician Internal Medicine Pulmonary Disease 09/16/21 documented as of this encounter
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
--- OUTSIDE RECORDS SUMMARY | 2024-09-07 05:25 | XMS_ITS | Encounter Summary ---
Author Organization [facility] Address [address] [place] [address]. [place], [place] [address] [place] [address] Care Team Providers Care Electric Tool Repairer Name Role Phone Tracy Olivares MD Primary Care Provider [phone] Nathan Baig MD Unavailable [phone] Reason for Visit * Reason Onset Date Comments Results 01/18/2022 Encounter Details Date Type Department Care Team (Late st Contact Info) Description 01/18/2022 Telephone [facility] Medical Group Multispecialty Care - [address] [place] [address] [place] [address] [place] [address] 157 [place] [address] Results Social History Tobacco Use [...] Progress Notes * Tracy Olivares MD - 01/18/2022 1:35 PM CDT I received mammogram report done on 01/14/2022. Mammogram looking good. We will return to routine mammogram screening in 1 year. Please call and update patient. Tracy Olivares MD Internal Medicine [facility]. documented in this encounter Plan of Treatment Upcoming Encounters Date Type Department Care Team (Late st Contact Info) Description 10/03/2024 11:00 AM CONVEYOR MAINTENANCE MECHANIC Office Visit [facility] Pulmonology Specialty Clinic - [address] [address] Nathan Baig MD [address] [address] 11/14/2024 10:20 AM CONVEYOR MAINTENANCE MECHANIC Office Visit [facility] Multispecialty Care - [place] [address] [address] [place] [address] [place] [address] [place] [address] documented as of this encounter Visit Diagnoses Not on filedocumented in this encounter Additional Health Concerns Assessment Noted Time PHQ-9 Depression Total Score: 5 01/06/20 22 10:48 AM CDT documented as of this encounter Care Teams Electric Tool Repairer Relationship Specialty Start Date End Date Tracy Olivares MD [address] [place] [address] PCP - General INTERNAL MEDICINE 01/02/21 Nathan Baig MD [address] [address] Consulting Physician Internal Medicine Pulmonary Disease 09/16/21 documented as of this encounter
--- OUTSIDE RECORDS SUMMARY | 2024-09-07 05:25 | XMS_ITS | Encounter Summary ---
Author Organization [facility] - [facility] Address [address] [place] [address]. [place], [place] [address] [place] [address] Care Team Providers Care Diffusion Furnace Operator Name Role Phone Tracy Olivares MD Primary Care Provider [phone] Nathan Baig MD Unavailable [phone] Reason for Visit * Reason Onset Date Comments Results 03/27/2022 Encounter Details Date Type Department Care Team (Late st Contact Info) Description 03/27/2022 Telephone [facility] Medical Group Multispecialty Care - [place] [address] [address] [place] [address] [place] [address] [place] [address] [address] [place] [address] Results Social History Tobacco Use Types Packs/Day Years Used Date Smoking Tobacco: Former Cigarettes 1.5 30 0 09/12/1954 - 09/12/1984 Smokeless Tobacco: Never Comments:counseled by Dr Carmenza ul Alcohol Use Standard Drinks/Week Comments Not Currently [...] Progress Notes * Tracy Olivares MD - 03/27/2022 11:17 PM CDT Please call patient. I received her recent pulmonary function test ordered by pulmonary=/. Look stable. No need for further work-up. Continue with inhalers as directed. No reports of chronic obstructive pulmonary diseasei.e. COPD. Please encourage her to follow-up with pulmonary-Dr. Baig as planned for future appointments. Scanned. Thank you Tracy Olivares MD Internal Medicine [facility]. documented in this encounter Plan of Treatment Upcoming Encounters Date Type Department Care Team (Late st Contact Info) Description 10/03/2024 11:00 AM SCUDDING INSPECTOR Office Visit [facility] Pulmonology Specialty Clinic - [address] [address] Nathan Baig MD [address] [place] [address] 11/14/2024 10:20 AM SCUDDING INSPECTOR Office Visit [facility] Multispecialty Care - [place] [address] [address] [place] [address] Tracy Olivares MD [address] [place] [address] documented as of this encounter Visit Diagnoses Not on filedocumented in this encounter Additional Health Concerns Assessment Noted Time PHQ-9 Depression Total Score: 5 01/06/20 10:48 AM CDT documented as of this encounter Care Teams Diffusion Furnace Operator Relationship Specialty Start Date End Date Tracy Olivares MD [address] [place] [address] PCP - General INTERNAL MEDICINE 01/02/21 Nathan Baig MD [address] [address] Consulting Physician Internal Medicine Pulmonary Disease 09/16/21 documented as of this encounter
--- OUTSIDE RECORDS SUMMARY | 2024-09-07 05:25 | XMS_ITS | Encounter Summary ---
Author Organization [facility] - [facility] Address [address] [place] [address]. [place], [place] [address] [place] [address] Care Team Providers Care Force Adjustment Supervisor Name Role Phone Tracy Olivares MD Primary Care Provider Nathan Baig MD Unavailable [phone] Reason for Visit * Reason Onset Date Comments Follow Up Call 04/03/2022 Encounter Details Date Type Department Care Team (Late st Contact Info) Description 04/03/2022 Telephone [facility] Medical Group Multispecialty Care - [place] [address] [address] [place] [address] [place] [address] [place] [address] 157 [place] [address] Follow Up Call Social History [...] Progress Notes * Tracy Olivares MD - 04/03/2022 10:11 AM CDT scallop raker notes. Patient calls concerned about possibly reacting to a recently received vaccine- Prevnar 13. I did discuss with patient that it is normal for patient to feel achy and slightly unwell after having the pneumonia vaccine. She has no concerns for shortness of breath, chest tightness or cough or rash. Given her symptoms she thought she had covid and run a home test but this came back negative. No fever or chills. Advised to schedule Benadryl, Tylenol and Mucincex for her current symptoms over the next 48 hours and to call by Tuesday if still not feeling well. Patient verbalized understanding. Tracy Olivares MD Internal Medicine [facility]. documented in this encounter Plan of Treatment Upcoming Encounters Date Type Department Care Team (Late st Contact Info) Description 10/03/2024 11:00 AM PURCHASING DIRECTOR Office Visit [facility] Medical [facility] Pulmonology Specialty Clinic - [address] [address] Nathan Baig MD [address] [place] [address] 11/14/2024 10:20 AM PURCHASING DIRECTOR Office Visit [facility] Multispecialty Care - [place] [address] [address] [place] [address] Tracy Olivares MD [address] [place] [address] 157 [place] [address] documented as of this encounter Visit Diagnoses Not on filedocumented in this encounter Additional Health Concerns Assessment Noted Time PHQ-9 Depression Total Score: 5 01/06/20 10:48 AM CDT documented as of this encounter Care Teams Force Adjustment Supervisor Relationship Specialty Start Date End Date Tracy Olivares MD [address] [facility] [address] [place] [id number] PCP - General INTERNAL MEDICINE 01/02/21 Nathan Baig MD [address] [address] Consulting Physician Internal Medicine Pulmonary Disease 09/16/21 documented as of this encounter
--- OUTSIDE RECORDS SUMMARY | 2024-09-07 05:25 | XMS_ITS | Encounter Summary ---
Author Organization [facility] Address [address] [place] [address]. [place], [place] [address] [place] [address] Care Team Providers Care Coordinator Skill Training Program Name Role Phone Tracy Olivares MD Primary Care Provider [phone] Nathan Baig MD Unavailable [phone] Reason for Visit * Reason Onset Date Comments No Show 04/07/2022 Encounter Details Date Type Department Care Team ([facility] Contact Info) Description 04/07/2022 Telephone [facility] Physical Therapy [address] [place] [address] Darlene Rodgers, PT No Show Social History Tobacco Use Types Packs/Day Years [...] Upcoming Encounters Date Type Department Care Team ([facility] st Contact Info) Description 10/03/2024 11:00 AM POLE SHAVER Office Visit [facility] Medical [facility] Pulmonology Specialty Clinic - [address] [place] [address] Nathan Baig MD 3 [facility] [address] [place] [address] 11/14/2024 10:20 AM POLE SHAVER Office Visit [facility] Multispecialty Care - [place] [address] [address] [place] [address] Tracy Olivares MD [address] [place] [address] documented as of this encounter Visit Diagnoses Not on filedocumented in this encounter Additional Health Concerns Assessment Noted Time PHQ-9 Depression Total Score: 5 01/06/20 10:48 AM CDT documented as of this encounter Care Teams Coordinator Skill Training Program Relationship Specialty Start Date End Date Tracy Olivares MD [address] [place] [address] PCP - General INTERNAL MEDICINE 01/02/21 Nathan Baig MD 3 [facility] [address] [place] [address] Consulting Physician Internal Medicine Pulmonary Disease 09/16/21 documented as of this encounter
--- OUTSIDE RECORDS SUMMARY | 2024-09-07 05:25 | XMS_ITS | Encounter Summary ---
Author Organization [facility] Address [address] [place] [address]. [place], [place] [address] [place] [address] Care Team Providers Care Instructor Dramatic Arts Name Role Phone Tracy Olivares MD Primary Care Provider [phone] Encounter Details Date Type Department Care Team (Latest Contact Info) Description 09/10/2021 Travel Social History Tobacco Use Types Packs/Day [...] 3, please move on to questions 3-9 1 07/06/2021 Comments No Sex and Gender Information Value Date Recorded Sex Assigned at Not on file Legal Sex Female 8:25 PM CDT Gender Identity Not on file Sexual Orientation Not on file COVID-19 Exposure Response Date Recorded In the last month, have you been in contact with someone who was confirmed or suspected to have Coronavirus / COVID-19? No / Unsure 09/10/2021 9:35 AM LOCK CORNER MACHINE OPERATOR documented as of this encounter Plan of Treatment Upcoming Encounters Date Type Department Care Team (Late st Contact Info) Description 10/03/2024 11:00 AM LOCK CORNER MACHINE OPERATOR Office Visit [facility] Medical Group Pulmonology Specialty Clinic - [place] [address] [place] [address] Nathan Baig MD [address] [place] [address] 11/14/2024 10:20 AM LOCK CORNER MACHINE OPERATOR Office Visit [facility] Medical Group Multispecialty Care - [place] [address] [address] [place] [address] Tracy Olivares MD [address] [place] [address] documented as of this encounter Visit Diagnoses Not on filedocumented in this encounter Additional Health Concerns Assessment Noted Time PHQ-9 Depression Total Score: 3 07/06/20 21 9:34 AM CDT documented as of this encounter Care Teams Instructor Dramatic Arts Relationship Specialty Start Date End Date Tracy Olivares MD [address] [place] [address] PCP - General INTERNAL MEDICINE 01/02/21 documented as of this encounter
--- OUTSIDE RECORDS SUMMARY | 2024-09-07 05:25 | XMS_ITS | Encounter Summary ---
Author Organization [facility] Address [address] [place] [address]. [place], [place] [address] [place] [address] Care Team Providers Care Border Measurer Name Role Phone Tracy Olivares MD Primary Care Provider [phone] Nathan Baig MD Unavailable [phone] Encounter Details Date Type Department Care Team (Latest Contact Info) Description 10/08/2021 Travel Social History Tobacco Use Types Packs/Day [...] COVID-19? No / Unsure 10/08/2021 9:29 AM PATHOLOGY SUPERVISOR documented as of this encounter Plan of Treatment Upcoming Encounters Date Type Department Care Team (Late st Contact Info) Description 10/03/2024 11:00 AM PATHOLOGY SUPERVISOR Office Visit [facility] Medical Group Pulmonology Specialty Clinic - [address] [place] [address] Nathan Baig MD 3 [facility] [address] [place] [address] 11/14/2024 10:20 AM PATHOLOGY SUPERVISOR Office Visit [facility] Medical Group Multispecialty Care - [place] [address] [address] [place] [address] Tracy Olivares MD [address] [place] [address] documented as of this encounter Visit Diagnoses Not on filedocumented in this encounter Additional Health Concerns Assessment Noted Time PHQ-9 Depression Total Score: 6 09/16/19 10:54 AM PATHOLOGY SUPERVISOR documented as of this encounter Care Teams Border Measurer Relationship Specialty Start Date End Date Tracy Olivares MD [address] [place] [address] PCP - General INTERNAL MEDICINE 01/02/21 Nathan Baig MD 3 [facility] [address] [place] [address] Consulting Physician Internal Medicine Pulmonary Disease 09/16/21 documented as of this encounter
--- OUTSIDE RECORDS SUMMARY | 2024-09-07 05:25 | XMS_ITS | Encounter Summary ---
Author Organization [facility] - [facility] Address [address] [place] [address]. [place], [place] [address] [place] [address] Care Team Providers Care Ict Development Manager Name Role Phone Tracy Olivares MD Primary Care Provider [phone] Nathan Baig MD Unavailable [phone] Reason for Visit * Reason Onset Date Comments Results 01/17/2022 Encounter Details Date Type Department Care Team (Late st Contact Info) Description 01/17/2022 Telephone [facility] Medical Group Multispecialty Care - [place] [address] [place] [address] [address] [place] [address] [place] [address] [place] [address] 157 [place] [address] Results Social History Tobacco Use [...] Progress Notes * Tracy Olivares MD - 01/17/2022 4:16 PM CDT I received patient EGD done as follow up following treatment for PUD. Noted prior history of PUD. EGD done 01/12/2022. Pathology results: Small bowel biopsy without pathology abnormality. Stomach biopsy shows moderate chronic gastritis. The current absence of organism suggests that treatment was successful but Residual chronic inflammatory infiltrate remains in the mucosa. No evidence of progression to atrophic gastritis. Scanned. I already have patient on omeprazole 20 BID after tripple therapy in August 2022. Will plan to discuss and follow up with patient as she is currently on PPI. If still ongoing symptoms may have to optimize therapy. She sees me back on 03/02/2022. Tracy Olivares MD Internal Medicine [facility]. documented in this encounter Plan of Treatment Upcoming Encounters Date Type Department Care Team (Late st Contact Info) Description 10/03/2024 11:00 AM HEALTH TEACHER Office Visit [facility] Pulmonology Specialty Clinic - [address] [address] Nathan Baig MD [address] [place] [address] 11/14/2024 10:20 AM HEALTH TEACHER Office Visit [facility] Multispecialty Care - [place] [address] [address] [place] [address] Tracy Olivares MD [address] [place] [address] documented as of this encounter Visit Diagnoses Not on filedocumented in this encounter Additional Health Concerns Assessment Noted Time PHQ-9 Depression Total Score: 5 01/06/20 10:48 AM CDT documented as of this encounter Care Teams Ict Development Manager Relationship Specialty Start Date End Date Tracy Olivares MD [address] [facility] [address] [place] [address] PCP - General INTERNAL MEDICINE 01/02/21 Nathan Baig MD [address] [address] Consulting Physician Internal Medicine Pulmonary Disease 09/16/21 documented as of this encounter
--- OUTSIDE RECORDS SUMMARY | 2024-09-07 05:25 | XMS_ITS | Encounter Summary ---
Author Organization [facility] Address [address] [place] [address]. [place], [place] [address] [place] [address] Care Team Providers Care Rheologist Name Role Phone Tracy Olivares MD Primary Care Provider Nathan Baig MD Unavailable [phone] Marisel Mancini RN Unavailable [phone] Encounter Details Date Type Department Care Team (Late st Contact Info) Description 03/29/2022 Audio Shack Message Enc [facility] Medical Group Multispecialty Care - [address] [place] [address] [employer], [facility] Provider test results Social History Tobacco Use Types Packs/Day [...] st Contact Info) Description 10/03/2024 11:00 AM OIL WELL LOGGER Office Visit [facility] Medical [facility] Pulmonology Specialty Clinic - [address] [address] Nathan Baig MD 3 [facility] [address] [place] [address] 11/14/2024 10:20 AM OIL WELL LOGGER Office Visit [facility] Multispecialty Care - [place] [address] [address] [place] [address] Tracy Olivares MD [address] [place] [address] documented as of this encounter Visit Diagnoses Not on filedocumented in this encounter Additional Health Concerns Infection Onset Date Last Indicated Resolved Time COVID-19 Rule Out 05/20/2022 05/20/2022 05/20/2022 10:50 AM CDT COVID-19 Rule Out 05/20/2022 05/20/2022 05/21/2022 1:20 AM CDT Assessment Noted Time PHQ-9 Depression Total Score: 5 01/06/20 10:48 AM CDT documented as of this encounter Care Teams Rheologist Relationship Specialty Start Date End Date Tracy Olivares MD [address] [place] [address] PCP - General INTERNAL MEDICINE 01/02/21 Nathan Baig MD 3 [facility] [address] [place] [address] Consulting Physician Internal Medicine Pulmonary Disease 09/16/21 Marisel Mancini RN [address] [place] [address] Home Improvement Installer (Ambulatory) REGISTERED NURSE 06/28/24 08/07/24 documented as of this encounter
--- OUTSIDE RECORDS SUMMARY | 2024-09-07 05:25 | XMS_ITS | Encounter Summary ---
Author Organization [facility] - [facility] Address [address] [place] [address]. [place], [place] [address] [place] [address] Care Team Providers Care Estate And Trust Tax Principal Name Role Phone Tracy Olivares MD Primary Care Provider [phone] Nathan Baig MD Unavailable [phone] Reason for Visit * Reason Onset Date Comments Lab Results 01/08/2022 Encounter Details Date Type Department Care Team (Late st Contact Info) Description 01/08/2022 Telephone [facility] Medical Group Multispecialty Care - [place] [address] [place] [address] [address] [place] [address] [place] [address] [place] [address] 157 [place] [address] Lab Results Social History Tobacco [...] Progress Notes * Ilana Ochoa MA - 01/08/2022 10:17 AM CDT Called patient with her test results and she was pleased but has no questions at this time. ----- Message from Tracy Olivares MD sent at 01/08/2022 6:23 AM CDT ----- Please call patient. Her labs look stable with the exception of her hemoglobin. It is slightly low and I will advise shetaking a daily multivitamin. Also her a1c is normal now and will advise she continue with all her medications as directed. Thanks Tracy Olivares MD Internal Medicine [facility] Medical [facility]. documented in this encounter Plan of Treatment Upcoming Encounters Date Type Department Care Team (Late st Contact Info) Description 10/03/2024 11:00 AM TOOL GRINDING TECHNICIAN Office Visit [facility] Pulmonology Specialty Clinic - [address] [address] Nathan Baig MD [address] [place] [address] 11/14/2024 10:20 AM TOOL GRINDING TECHNICIAN Office Visit [facility] Multispecialty Care - [address] [place] [address] [place] [address] [place] [address] 157 [place] [address] documented as of this encounter Visit Diagnoses Not on filedocumented in this encounter Additional Health Concerns Assessment Noted Time PHQ-9 Depression Total Score: 5 01/06/20 10:48 AM CDT documented as of this encounter Care Teams Estate And Trust Tax Principal Relationship Specialty Start Date End Date Tracy Olivares MD [address] [facility] [address] [place] [address] PCP - General INTERNAL MEDICINE 01/02/21 Nathan Baig MD [address] [address] Consulting Physician Internal Medicine Pulmonary Disease 09/16/21 documented as of this encounter
--- OUTSIDE RECORDS SUMMARY | 2024-09-07 05:25 | XMS_ITS | Encounter Summary ---
Author Organization [facility] Address [address] [place] [address]. [place], [place] [id number] [place] [address] Care Team Providers Care City Collector Name Role Phone Tracy Olivares MD Primary Care Provider [phone] Nathan Baig MD Unavailable [phone] Reason for Visit * Reason Comments Obstructive Sleep Apnea CPAP @ 9 cm IV COPD PFT is scheduled in January * Consultation (Routine) - Closed Specialty Diagnoses / Procedures Referred By Contact Referred To Contact [facility]EP [facility] Diagnoses FAISAL on CPAP Tracy Olivares MD [address] [place] [address] Phone: tel: fax: [facility] [address] [address] Phone: tel: fax: Referral ID Status Reason Start Date Expiration Date Visits Re quested Visits Authorized [id number] Closed 05/16/2021 11/12/2021 6 6 Encounter Details Date Type Department Care Team (Late st Contact Info) Description 10/23/2021 9:00 AM SURVEILLANCE CAMERA TECHNICIAN Office Visit [facility] [address] [address] Nathan Baig MD [address] [place] [address] Obstructive Sleep Apnea (CPAP @ 9 cm IV); COPD (PFT is scheduled in January ) Social History Tobacco Use Types Packs/Day [...] suspected to have Coronavirus/COVID-19? No / Unsure 10/23/2021 8:36 AM SURVEILLANCE CAMERA TECHNICIAN documented as of this encounter Last Filed Vital Signs Vital Sign Reading Time Taken Comments Blood Pressure 126/72 10/23/2021 8:43 AM SURVEILLANCE CAMERA TECHNICIAN Pulse 86 10/23/2021 8:43 AM SURVEILLANCE CAMERA TECHNICIAN Temperature 36.5 ??C (97.7 ??F) 10/23/2021 8:43 AM CS T Respiratory Rate 12 10/23/2021 8:43 AM SURVEILLANCE CAMERA TECHNICIAN Oxygen Saturation 97% 10/23/2021 8:43 AM SURVEILLANCE CAMERA TECHNICIAN Inhaled Oxygen Concentration - - Weight 128.8 kg (284 lb) 10/23/2021 8:43 AM SURVEILLANCE CAMERA TECHNICIAN Height 161.3 cm (5' 3.5 ) 10/23/2021 8:43 AM SURVEILLANCE CAMERA TECHNICIAN Body Mass Index 49.52 10/23/2021 8:43 AM SURVEILLANCE CAMERA TECHNICIAN documented in this encounter Patient Instructions * Patient Instructions* Nathan Baig MD - 10/23/2021 9:00 AM SURVEILLANCE CAMERA TECHNICIAN 1. Continue wearing your CPAP every night is doing a great job controlling your sleep apnea 2. Use distilled water in the machine 3. Change of the mask and straps, tubing every 3 to 6 months 4. Your breathing test is scheduled for January 21, we will take a look and see how your airflow is andif you actually do have COPD at that time 5. Continue Trelegy 1 puff a day, rinse and spit after use 6. Albuterol can be used as needed 7. Continue efforts at weight loss, diet, exercise 8. Plan to follow-up with me in 6 months, sooner if needed EILLANCE CAMERA TECHNICIAN documented in this encounter Progress Notes * Nathan Baig MD - 10/23/2021 9:00 AM CST [facility] History Chief Complaint Patient presents with ??? Obstructive Sleep Apnea CPAP @ 9 cm IV ??? COPD PFT is scheduled in January Referring provider: Tracy Olivares MD 10/23/2019 OV: Overall, she says she is [...] Years since quittin.1 ??? Smokeless tobacco: Never Used ??? Tobacco [...] Take 81 mg by mouth daily. ??? ATORVASTATIN 20 MG tablet TAKE 1 [...] by mouth daily. 90 tablet 2 ??? GABAPENTIN 100 MG capsule TAKE 2 CAPSULES (200 MG TOTAL) BY MOUTH 3 (THREE) TIMES DAILY. 180 capsule 1 ??? guaiFENesin ER (MUCINEX) 600 MG [...] and indigestion). ) 90 capsule 1 ??? ondansetron 4 MG tablet Take 1 tablet (4 mg total) by mouth every 8 (eight) hours as needed forNausea. 20 tablet 0 ??? semaglutide 2 MG/1.5ML injection (PEN) Inject 0.5 mg into the skin every 7 days. Prefers to stay on the 0.5 mg weekly for sometime prior to transitioning to the 1mg.thanks. 3 mL 0 ??? Senna 8.6 MG tablet Take 1 tablet (8.6 mg total) by mouth daily as needed for Constipation. 30 tablet 1 ??? tiZANidine 4 MG tablet Take 0.5 [...] capsule ??? ONETOUCH VERIO test strip ??? Semaglutide, 1 MG/DOSE, (OZEMPIC, 1 MG/DOSE,) 4 MG/3ML Solution Pen-injector Inject 1 mg into the skin weekly. 6 mL 3 No current facility-administered medications for this visit. [...] 05/01/2016, 05/17/2016, 03/03/2021 ??? Tdap (Adacel) 07/06/2021 Review of Systems [...] Psychiatric/Behavioral: Negative for depression and suicidal ideas. Physical Exam Filed Vitals: 10/23/21 0843 BP: 126/72 Pulse: 86 Resp: 12 Temp: 97.7 ??F (36.5 ??C) TempSrc: Temporal SpO2: 97% Weight: 128.8 kg (284 lb) Height: 5' 3.5 (1.613 m) Body mass index is 49.52 kg/m??. Physical Exam: General: Alert, pleasant, in NAD Neuro: Alert, appropriate Psych: Affect normal Head: NC, AT EENT: No Sinus tenderness to palpation, mallampati 4 Neck: Supple Lymph: No appreciable cervical lymphadenopathy Respiratory: non-labored, ctab, no wheezes/crackles Cardiovascular: s1,s2, rrr, no audible murmur GI: non-distended, bs+ Musc: Bilateral wrist ROM wnl Ext: no edema, no clubbing Skin: No visible rashes, No visible tattoos Pertinent Labs Reviewed CPAP compliance 05/22/2021 Reviewed 73% use over the last 90 days. Average time 4 hours and 56 minutes. Set pressure 9 cm H2O. AHI 1.9/h 10/23/2021 reviewed. 89% use over the last 90 days. Average time 5 hours and 50 minutes. Pressure set at 9 cm H2O. AHI 0.4/h. Assessment 1. Obstructive sleep apnea on CPAP 2. Reported history of COPD, no PFTs to review 3. Tobacco use history 4. Obesity 5. Hypertension Plan -Continue CPAP at a set pressure of 9 cm H2O. Discussed improving compliance. She will continue to benefit from use -Change of the mask and straps, tubing every 3 to 6 months -Use distilled water -Obtain complete PFT with and without bronchodilator to confirm whether or not she does have COPD, currently scheduled for 01/21/2022 -Okay to continue Trelegy 100/62.5/25 mcg 1 puff daily, rinse and spit after. 1 year refill provided today Return in about 6 months (around 04/22/2022). Nathan Biag MD EILLANCE CAMERA TECHNICIAN documented in this encounter Plan of Treatment Upcoming Encounters Date Type Department Care Team (Late st Contact Info) Description 10/03/2024 11:00 AM SURVEILLANCE CAMERA TECHNICIAN Office Visit [facility] - [address] [address] Nathan Baig MD [address] [place] [address] 11/14/2024 10:20 AM SURVEILLANCE CAMERA TECHNICIAN Office Visit [facility] - [place] [address] [address] [place] [address] Tracy Olivares MD [address] [place] [address] documented as of this encounter Visit Diagnoses Diagnosis FAISAL on CPAP- Primary Obstructive sleep apnea (adult) (pediatric) Pulmonary emphysema, unspecified emphysema type ([facility]) Class 3 severe obesity due to excess calories without serious comorbidity with body mass index (BMI) of 45.0 to 49.9 in adult ([facility]) Nicotine dependence, cigarettes, in remission documented in this encounter Additional Health Concerns Assessment Noted Time PHQ-9 Depression Total Score: 6 09/16/19 10:54 AM SURVEILLANCE CAMERA TECHNICIAN documented as of this encounter Care Teams City Collector Relationship Specialty Start Date End Date Tracy Olivares MD [address] [place] [address] PCP - General INTERNAL MEDICINE 01/02/21 Nathan Baig MD [id number] Consulting Physician Internal Medicine Pulmonary Disease 09/16/21 documented as of this encounter
--- OUTSIDE RECORDS SUMMARY | 2024-09-07 05:25 | XMS_ITS | Encounter Summary ---
Author Organization [facility] Address [address] [place] [address]. [place], [place] [address] [place] [address] Care Team Providers Care Sales Program Manager Name Role Phone Tracy Olivares MD Primary Care Provider [phone] Nathan Baig MD Unavailable [phone] Reason for Visit * Reason Comments Weight Problem SMA Prediabetes Follow Up Encounter Details Date Type Department Care Team (Latest Contact Info) Description 04/02/2022 11:40 AM CDT Office Visit [facility] Mult[facility] Care - [place] [address] [address] [place] [address] Tracy Olivares MD [address] [place] [address] [address] [place], [place] [id number] Weight Problem; SMA Prediabetes Follow Up Social History Tobacco Use Types Packs/Day Years [...] Sign Reading Time Taken Comments Blood Pressure 137/83 04/02/2022 11:38 AM CDT Pulse 79 04/02/2022 11:38 AM CDT Temperature 36.3 ??C (97.3 ??F) 04/02/2022 11:38 AM C DT Respiratory Rate 20 04/02/2022 11:38 AM CDT Oxygen Saturation 100% 04/02/2022 11:38 AM CDT Inhaled Oxygen Concentration - - Weight 127.9 kg (282 lb) 04/02/2022 11:38 AM CDT Height 161.3 cm (5' 3.5 ) 04/02/2022 11:38 AM CD T Body Mass Index 49.17 04/02/2022 11:38 AM CDT documented in this encounter Patient Instructions * Patient Instructions* Tracy Olivares MD - 04/02/2022 11:40 AM CDT Follow up in 4 weeks. Please picker machine operator your medication for the cholesterol- ATORVASTATIN and JANUVIA for your prediabetes. Please see me back in 4 weeks. * Attachments The following attachments cannot be sent through Care Everywhere. * Weight Loss Tips (Maori) documented in this encounter Progress Notes * Tracy Olivares MD - 04/02/2022 11:40 AM CDTSummary: Follow-up notes Images from the original note were not included. Internal Medicine Outpatient Progress Note CC: Weight Problem and SMA Prediabetes Follow Up HPI: Keegan Amaya is a 66-year-old -[place] female who presents for follow- up for weight issues. This is patient's third visit for phentermine refill. Her weight is down from 284 pounds to 282 pounds. Tolerating medications without any side effects such as palpitations, chest tightness, shortness of breath or ankle swelling. Patient had discussed with me about wanting to lose weight to hopefu lly help with low back pain and bilateral knee pain. Has not tolerated GLP-1 agonist in the past due to intolerable gastrointestinal symptoms and does have to be discontinued after Ozempic was approved for patient. Currently patient tells me she does not actively exercise. Follows a general diet. Currently does not follow routinely with a dietitian. Problem List Patient Active Problem List Diagnosis [...] Types: Cigarettes Quit date: 09/12/1984 Years since quittin.5 ??? Smokeless tobacco: Never Used ??? Tobacco comment: counseled by Dr Olivares Vaping Use ??? Vaping Use: Never used Substance Use Topics ??? Alcohol use: Not Currently ??? Drug use: Not Currently Medications: Outpatient Medications Marked as Taking for the 04/02/22 encounter (Office Visit) with Tracy Olivares MD [...] at bedtime. atbedtime 90 tablet 1 ??? Cetirizine HCl (ZYRTEC ALLERGY) 10 MG Cap Take 10 mg by mouth daily. 30 capsule ??? escitalopram 10 MG tablet Take 1 tablet (10 mg total) by mouth daily. 90 tablet 2 ??? gabapentin 100 MG capsule Take 2 capsules (200 mg total) by mouth 3 (three) times daily. 180 capsule 1 ??? losartan-hydroCHLOROthiazide 100-12.5 MG Tab Take 1 tablet by mouth daily. 90 tablet 3 ??? OMEPRAZOLE 20 MG capsule TAKE 2 CAPSULES BY MOUTH EVERY DAY 180 capsule 1 ??? phentermine (ADIPEX-P) 37.5 MG tablet Take 1 tablet (37.5 mg total) by mouth every morning before breakfast for 30 days. 30 tablet 0 ??? SITagliptin (JANUVIA) 100 MG tablet Take 1 tablet (100 mg total) by mouth daily. 90 tablet 2 ??? traMADol 50 MG tablet Take 1 [...] Neurological: Negative. Psychiatric/Behavioral: Negative. Objective: Filed Vitals: 04/02/22 1138 BP: 137/83 Pulse: 79 Resp: 20 Temp: 97.3 ??F (36.3 ??C) TempSrc: Temporal SpO2: 100% Weight: 127.9 kg (282 lb) Height: 5' 3.5 (1.613 m) Body mass index is 49.17 kg/m??. General alert, cooperative, no distress HEENT [...] SEVERE OBESITY phentermine (ADIPEX-P) 37.5 MG tablet Z68.43 V85.43 2. Prediabetes R73.03 790.29 PREDIABETES SITagliptin (JANUVIA) 100 MG tablet 3. Mixed hyperlipidemia E78.2 272.2 MIXED HYPERLIPIDEMIA atorvastatin (LIPITOR) 20 MG tablet 4. Need for prophylactic vaccination against Streptococcus pneumoniae (pneumococcus) Z23 V03.82 REQUIRES VACCINATION [92593] Prevnar 13 (Pneumococcal) 1. Prediabetes - patient yet to start taking her medication - please start taking SITagliptin (JANUVIA) 100 MG tablet; Take 1 tablet (100 mg total) by mouth daily. Dispense: 90 tablet; Refill: 2 2. Mixed hyperlipidemia - patient yet to start taking her medication - please start atorvastatin (LIPITOR) 20 MG tablet; Take 1 tablet (20 mg total) by mouth nightly atbedtime. at bedtime Dispense: 90 tablet; Refill: 1 3. Class 3 severe obesity due to excess calories without serious comorbidity with body mass index (BMI) of 50.0 to 59.9 in adult ([facility]) - -Pt has elevated weight with BMI Body mass index is 49.17 kg/m??., and will need to work hard on reducing carbohydrates and total calories. -You may use the free smart phone apps such as [employer] to help track calories and try to [...] per week and 5 pounds per month. - start phentermine (ADIPEX-P) 37.5 MG tablet; Take 1 tablet (37.5 mg total) by mouth every morningbefore breakfast for 30 days. Dispense: 30 tablet; Refill: 0 - this is her third refill for medication - follow up in 4 weeks 4. Need for prophylactic vaccination against Streptococcus pneumoniae (pneumococcus) - [08922] Prevnar 13 (Pneumococcal) Counseling given: Yes Comment: counseled by Dr Olivares I spent 30 minutes today reviewing the patient's medical record, obtaining history, performing an exam, ordering medications, tests, and/or procedures, documenting in the medical record, referring and/or communicating with other health care providers, counseling and educating the patient/family/caregiver, reviewing and communicating test results and coordination of care. Side effects and less common but more severe adverse effects of recommended medical therapies were explained to the patient. Follow up office visit in 1 month. Requested MyChart or telephone follow up prn if symptoms change,worsen, or persist, or if side effect of treatment is experienced. DRAGON: This dictation was at least in part performed using [employer] speak and there may be some inherent flaws in this moving picture operator due to the nature of this program. Tracy Olivares MD Internal Medicine [facility], [facility]. documented in this encounter Plan of Treatment Upcoming Encounters Date Type Department Care Team (Late st Contact Info) Description 10/03/2024 11:00 AM HEALTH ECONOMIST Office Visit [facility] Medical [facility] - [address] [address] Nathan Baig MD [address] [place] [address] 11/14/2024 10:20 AM HEALTH ECONOMIST Office Visit [facility] - [place] [address] [address] [place] [address] Tracy Olivares MD [facility] [address] documented as of this encounter Visit Diagnoses Diagnosis Class 3 severe obesity due to excess calories without serious comorbidity with body mass index (BMI) of 50.0 to 59.9 in adult ([facility])- Primary Prediabetes Other abnormal glucose Mixed hyperlipidemia Need for prophylactic vaccination against Streptococcus pneumoniae (pneumococcus) Need for prophylactic vaccination against streptococcus pneumoniae (pneumococcus) documented in this encounter Additional Health Concerns Assessment Noted Time PHQ-9 Depression Total Score: 5 01/06/20 10:48 AM CDT documented as of this encounter Care Teams Sales Program Manager Relationship Specialty Start Date End Date Tracy Olivares MD [address] [place] [address] PCP - General INTERNAL MEDICINE 01/02/21 Nathan Baig MD [address] [address] Consulting Physician Internal Medicine Pulmonary Disease 09/16/21 documented as of this encounter
--- OUTSIDE RECORDS SUMMARY | 2024-09-07 05:25 | XMS_ITS | Encounter Summary ---
Author Organization [facility] Address [address] [place] [address]. [place], [place] [address] [place] [address] Care Team Providers Care Game Designer/Creative Director Name Role Phone Tracy Olivares MD Primary Care Provider [phone] Nathan Baig MD Unavailable Marisel Mancini RN Unavailable [phone] Encounter Details Date Type Department Care Team (Late st Contact Info) Description 05/10/2022 ProQuo Message Enc [facility] Mult[facility] Care - [address] [place] [address] Stephanie, [facility] Provider Lab Test Social History Tobacco Use Types Packs/Day Years [...] st Contact Info) Description 10/03/2024 11:00 AM AUTOMOTIVE SALES PROFESSIONAL Office Visit [facility] Medical [facility] - [address] [address] Nathan Baig MD 3 [facility] [address] [place] [address] 11/14/2024 10:20 AM AUTOMOTIVE SALES PROFESSIONAL Office Visit [facility] Multispecialty Care - [place] [address] [address] [place] [address] Tracy Olivares MD [address] [place] [address] documented as of this encounter Visit Diagnoses Not on filedocumented in this encounter Additional Health Concerns Infection Onset Date Last Indicated Resolved Time COVID-19 Rule Out 05/20/2022 05/20/2022 05/20/2022 10:50 AM CDT COVID-19 Rule Out 05/20/2022 05/20/2022 05/21/2022 1:20 AM CDT Assessment Noted Time PHQ-9 Depression Total Score: 5 01/06/20 10:48 AM CDT documented as of this encounter Care Teams Game Designer/Creative Director Relationship Specialty Start Date End Date Tracy Olivares MD [address] [place] [address] PCP - General INTERNAL MEDICINE 01/02/21 Nathan Baig MD 3 [facility] [address] [place] [address] Consulting Physician Internal Medicine Pulmonary Disease 09/16/21 Marisel Mancini RN [address] [place] [address] Cultural Anthropology Professor (Ambulatory) REGISTERED NURSE 06/28/24 08/07/24 documented as of this encounter
--- OUTSIDE RECORDS SUMMARY | 2024-09-07 05:25 | XMS_ITS | Encounter Summary ---
Author Organization [facility] - [facility] Address [address] [place] [address]. [place], [place] [id number] [place] [id number] Care Team Providers Care Mirror Polisher Name Role Phone Tracy Olivares MD Primary Care Provider [phone] Nathan Baig MD Unavailable Reason for Visit * Reason Comments Sinus Problem Nasal drainage, snee zing, dizziness; sx x 2 days; headache this morning Encounter Details Date Type Department Care Team (Late st Contact Info) Description 05/20/2022 9:40 AM CDT Office Visit [facility] Medical Group Multispecialty Care - [address] [place] [address] Sid Mae MD Sinus Problem (Nasal drainage, sneezing, dizziness; sx x 2 days; headache this morning) Social History Tobacco Use Types Packs/Day Years [...] suspected to have Coronavirus/COVID-19? No / Unsure 05/20/2022 9:34 AM CDT documented as of this encounter Last Filed Vital Signs Vital Sign Reading Time Taken Comments Blood Pressure 128/79 05/20/2022 10:13 AM CDT Pulse 74 05/20/2022 9:43 AM CDT Temperature 36.5 ??C (97.7 ??F) 05/20/2022 9:43 AM CD T Respiratory Rate 18 05/20/2022 9:43 AM CDT Oxygen Saturation 100% 05/20/2022 9:43 AM CDT Inhaled Oxygen Concentration - - Weight 129.3 kg (285 lb) 05/20/2022 9:43 AM CDT Height 161.3 cm (5' 3.5 ) 05/20/2022 9:43 AM CDT Body Mass Index 49.69 05/20/2022 9:43 AM CDT documented in this encounter Patient Instructions * Patient Instructions* Sid Mae MD - 05/20/2022 9:40 AM CDT We have swabbed you for COVID/flu. The rapid test results are negative. We have sent it out for confirmation testing and will call you with the results once they are back. Please isolate or at least wear your mask to prevent the spread of infection to anyone else. Wash your hand thoroughly with soap and water or use hand office cashier. Please use flonase 1 spray in each nostril twice a day for 3 weeks. You can continue Zyrtec. Hot steam baths help as well with nasal congestion. documented in this encounter Progress Notes * Elly Haskins MA - 05/20/2022 9:40 AM CDTAddended by: ELLY HASKINS on: 05/20/2022 10:51 AM Modules accepted: Orders * Sid Mae MD - 05/20/2022 9:40 AM CDT Keegan Amaya is a 66-year-old female who presents today alone for evaluation of Chief Complaint Patient presents with ??? Sinus Problem Nasal drainage, sneezing, dizziness; sx x 2 days; headache this morning History of Present Illness: Here today for sinus issues: - patient of Dr. Olivares - she presents today with nasal drainage, congestion, sneezing x 2-3 days - she had some dizziness a few days ago but this has resolved, but now has a headache this morning - she had a bit of a sore throat last night and took a throat lozenge which helped - she states she wasn't feeling well so took tylenol last night, although she did not have a fever - she had chills about 2-3 days ago but this has resolved - she had COVID a few months ago - she received the Pfizer booster dose on 04/28/22 Past Medical History: Diagnosis Date ??? Anxiety [...] Types: Cigarettes Quit date: 09/12/1984 Years since quittin.7 ??? Smokeless tobacco: Never Used ??? Tobacco comment: counseled by Dr Olivares Vaping Use ??? Vaping Use: Never used Substance Use Topics ??? Alcohol use: Not Currently ??? Drug use: Not Currently Health Nikolas agustin was reviewed. Medications: Current Outpatient Medications Medication Sig Dispense [...] nightly as needed. 20 tablet 0 ??? OMEPRAZOLE 20 MG capsule TAKE 2 CAPSULES BY MOUTH EVERY DAY 180 capsule 1 ??? ondansetron 4 MG tablet Take 1 tablet (4 mg total) by mouth every 8 (eight) hours as needed forNausea. 20 tablet 0 ??? ONETOUCH VERIO test strip ??? phentermine (ADIPEX-P) 37.5 MG tablet Take 1 tablet (37.5 mg total) by mouth every other day for 30 days. 15 tablet 0 ??? SITagliptin (JANUVIA) 100 MG [...] Units by mouth daily. 30 capsule ??? metoclopramide 5 MG tablet Take 1 tablet (5 mg total) by mouth 3 (three) times a day. 20 tablet0 No current facility-administered medications for this visit. Allergies: Allergies Allergen Reactions ??? Propoxyphene Unknown Review of Systems: An appropriate review of systems was conducted with the pertinent positives and negatives as noted above in the HPI also including: Review of Systems Respiratory: Negative for cough and shortness of breath. Cardiovascular: Negative for chest pain and palpitations. Gastrointestinal: Negative for abdominal pain, nausea and vomiting. Objective / Physical Exam: Filed Vitals: 05/20/22 0943 05/20/22 1013 BP: (!) 140/92 128/79 Pulse: 74 Resp: 18 Temp: 97.7 ??F (36.5 ??C) TempSrc: Temporal SpO2: 100% Weight: 129.3 kg (285 lb) Height: 5' 3.5 (1.613 m) Body mass index is 49.69 kg/m??. Physical Exam Vitals reviewed. Constitutional: General: She is not in acute distress. Appearance: Normal appearance. She is well-developed. She is obese. She is not ill-appearing, toxic-appearing or diaphoretic. HENT: Head: Normocephalic and atraumatic. Right Ear: Tympanic membrane, external ear and ear canal normal. Left Ear: Tympanic membrane, external ear and ear canal normal. Nose: No rhinorrhea. Mouth/Throat: Oropharynx is clear and moist. Mucous membranes are moist. No posterior oropharyngealerythema. Eyes: General: Right eye: No discharge. Left eye: No discharge. Extraocular Movements: Extraocular movements intact. Conjunctiva/sclera: Conjunctivae normal. Cardiovascular: Rate and Rhythm: Normal rate and regular rhythm. Pulses: Normal pulses. Heart sounds: Normal heart sounds. No murmur heard. No friction rub. No gallop. Pulmonary: Effort: Pulmonary effort is normal. No respiratory distress. Breath sounds: Normal breath sounds. No wheezing, rhonchi or rales. Abdominal: General: Bowel sounds are normal. There is no distension. Palpations: Abdomen is soft. Tenderness: There is no abdominal tenderness. There is no guarding. Musculoskeletal: Cervical back: Normal range of motion and neck supple. Skin: General: Skin is warm. Neurological: Mental Status: She is alert and oriented to person, place, and time. Psychiatric: Mood and Affect: Mood normal. Behavior: Behavior normal. Lab / In Office Testing / Radiograph review: No results found for this visit on 05/20/22. Assessment/Plan: 1. Nasal congestion 2. Postnasal drip 3. Sore throat 4. Chills 5. Viral URI - patient likely has a mild case of a viral URI based on her symptoms - Rapid COVID/flu negative; PCR for COVID sent out - advised to use flonase 1 spray in each nostril twice a day x 3 weeks - continue zyrtec - hot steam baths for nasal congestion Followup Plan: Return if symptoms worsen or fail to improve. Instructions on the sign/symptoms of worsening problems were given and verbal acknowledgement of understanding was noted. Those present were instructed to call the office during business hours or go to convenient care when the office is closed. If it's an emergency then go to an ER if necessary to address these worsening conditions. The patient verbalized understanding and agreed to the plan. Allquestions answered to the patient's verbalized satisfaction. Patient Instructions We have swabbed you for COVID/flu. The rapid test results are negative. We have sent it out for confirmation testing and will call you with the results once they are back. Please isolate or at least wear your mask to prevent the spread of infection to anyone else. Wash your hand thoroughly with soap and water or use hand office cashier. Please use flonase 1 spray in each nostril twice a day for 3 weeks. You can continue Zyrtec. Hot steam baths help as well with nasal congestion. Sid Mae MD Family Medicine [facility] documented in this encounter Plan of Treatment Upcoming Encounters Date Type Department Care Team (Late st Contact Info) Description 10/03/2024 11:00 AM GENERAL MAINTENANCE ENGINEER Office Visit [facility] Medical [facility] Pulmonology Specialty [facility] - [place] [address] [address] Nathan Baig MD [address] [address] 11/14/2024 10:20 AM GENERAL MAINTENANCE ENGINEER Office Visit [facility] Multispecialty Care - [place] [address] [address] [place] [address] Tracy Olivares MD [address] [facility] [address] [place] [address] documented as of this encounter Procedures Procedure Name Priority Date/Time Associated Diagnosis Comments CORONAVIRUS (COVID 19) PCR Routine 05/20/2022 10:51 AM CDT Nasal congestion Postnasal drip Sore throat Chills Encounter for screening for COVID-19 CORONAVIRUS (COVID-19) INFLUENZA A & B ANTIGEN IA PANEL Routine 05/20/2022 Nasal congestion Postnasal drip Sore throat Chills Encounter for screening for COVID-19 documented in this encounter Results * CORONAVIRUS (COVID 19) PCR (05/20/2022 10:51 AM CDT) SPEC DESCRIPTION NASAL 05/20/20 10:51 AM CDT [facility] CORONAVIRUS SARS COV 2 PCR (RESP) NEGATIVE NEGATIVE 05/21/2022 1:20 AM CDT [facility] Comment: THE SARS-CoV-2 TEST HAS BEEN AUTHORIZED BY THE FDA UNDER AN EUA FOR USE BY AUTHORIZED LABORATORIES. PERFORMED BY NUCLEIC ACID AMPLIFICATION PCR FIRST TEST YES 05/20/2022 10:51 AM CDT [facility] EMPLOYED IN HEALTHCARE NO 05/20/2022 10:51 AM CDT [facility] SYMPTOMATIC DEFINED BY CDC YES 05/20/2022 10:51 AM CDT [facility] DATE OF SYMPTOM ONSET 2022051705/20/2022 10:51 AM CDT [facility] HOSPITALIZATION STATUS NO 05/20/2022 10:51 AM CDT [facility] PATIENT IN ICU NO 05/20/2022 10:51 AM CDT [facility] RESIDENT OF [facility] NO 05/20/2022 10:51 AM CDT [facility] NASOPHARYNGEAL SWAB / Unknown 05/20/2022 10:51 AM CDT Sid Mae MD MICROBIOLOGY - G ENERAL ORDERABLES Final Result [facility] [address] [place] [address], * CORONAVIRUS (COVID-19) INFLUENZA A & B ANTIGEN IA PANEL (05/20/2022) CORONAVIRUS ANTIGEN IA NEGATIVE NEGATIVE [id number], [place] INFLUENZA A NEGATIVE NEGATIVE [id number], [place] INFLUENZA B NEGATIVE NEGATIVE [id number], [place] Internal Control: VALID VALID [address], [place] NASAL STRUCTURE / Unknown 05/20/2022 Sid Mae MD MICROBIOLOGY - G ENERAL ORDERABLES Final Result [address], [place] [address] [place] [address] [address] [place] [address], documented in this encounter Visit Diagnoses Diagnosis Nasal congestion- Primary Other diseases of nasal cavity and sinuses Postnasal drip Sore throat Acute pharyngitis Chills Chills (without fever) Viral URI Acute upper respiratory infections of unspecified site Encounter for screening for COVID-19 documented in this encounter Additional Health Concerns Infection Onset Date Last Indicated Resolved Time COVID-19 Rule Out 05/20/2022 05/20/2022 05/20/2022 10:50 AM CDT COVID-19 Rule Out 05/20/2022 05/20/2022 05/21/2022 1:20 AM CDT Assessment Noted Time PHQ-9 Depression Total Score: 5 01/06/20 10:48 AM CDT documented as of this encounter Care Teams Mirror Polisher Relationship Specialty Start Date End Date Tracy Olivares MD [address] [facility] [address] [place] [address] PCP - General INTERNAL MEDICINE 01/02/21 Nathan Baig MD [address] [address] Consulting Physician Internal Medicine Pulmonary Disease 09/16/21 documented as of this encounter
--- OUTSIDE RECORDS SUMMARY | 2024-09-07 05:25 | XMS_ITS | Encounter Summary ---
Author Organization [facility] - [facility] Address [address] [place] [address]. [place], [place] [address] [place] [address] Care Team Providers Care Supervisor Graphite Name Role Phone Tracy Olivares MD Primary Care Provider [phone] Nathan Baig MD Unavailable [phone] Reason for Visit * Reason Onset Date Comments Medication Problem 11/09/2021 Encounter Details Date Type Department Care Team (Late st Contact Info) Description 11/09/2021 Telephone [facility] Medical Group Multispecialty Care - [place] [address] [place] [address] [address] [place] [address] Tracy Olivares MD [address] [facility] [address] [place] [address] Medication Problem Social History Tobacco [...] Coronavirus/COVID-19? No / Unsure 10/23/2021 8:36 AM STEAMFITTER APPRENTICE documented as of this encounter Progress Notes * Sadi Byrd - 11/09/2021 8:42 AM CST Patient called and said that she stopped taking the Ozempic because it was making her sick. She said that she got some nausea medicine from the pharmacy and it gave her a bad headache and she was sick for a week. Please call patient to discuss. MFITTER APPRENTICE documented in this encounter Plan of Treatment Upcoming Encounters Date Type Department Care Team (Late st Contact Info) Description 10/03/2024 11:00 AM STEAMFITTER APPRENTICE Office Visit [facility] Medical [facility] Pulmonology Specialty Clinic - [address] [address] Nathan Baig MD [address] [address] 11/14/2024 10:20 AM STEAMFITTER APPRENTICE Office Visit [facility] Multispecialty Care - [place] [address] [address] [place] [address] Tracy Olivares MD [address] [place] [address] documented as of this encounter Visit Diagnoses Not on filedocumented in this encounter Additional Health Concerns Assessment Noted Time PHQ-9 Depression Total Score: 6 09/16/19 10:54 AM STEAMFITTER APPRENTICE documented as of this encounter Care Teams Supervisor Graphite Relationship Specialty Start Date End Date Tracy Olivares MD [address] [place] [address] PCP - General INTERNAL MEDICINE 01/02/21 Nathan Baig MD [address] [address] Consulting Physician Internal Medicine Pulmonary Disease 09/16/21 documented as of this encounter
--- OUTSIDE RECORDS SUMMARY | 2024-09-07 05:25 | XMS_ITS | Encounter Summary ---
Author Organization [facility] Address [address] [place] [address]. [place] [id number] [place] [address] Care Team Providers Care Subway Repair Supervisor Name Role Phone Tracy Olivares MD Primary Care Provider [phone] Nathan Baig MD Unavailable [phone] Reason for Visit * Reason Comments Weight Problem Medication Problem C/o of upset stomach since starting januvia and atorvastatin Encounter Details Date Type Department Care Team (Latest Contact Info) Description 05/03/2022 11:00 AM CDT Office Visit [facility] Medical Group Multispecialty Care - [place] [address] [address] [place] [address] Tracy Olivares MD [address] [place] [address] [address] [place], [place] [id number] Weight Problem; Medication Problem (C/o of upset stomach since starting januvia and atorvastatin) Social History Tobacco Use Types Packs/Day Years [...] Sign Reading Time Taken Comments Blood Pressure 130/77 05/03/2022 10:42 AM CDT Pulse 74 05/03/2022 10:42 AM CDT Temperature 36.2 ??C (97.2 ??F) 05/03/2022 10:42 AM C DT Respiratory Rate 20 05/03/2022 10:42 AM CDT Oxygen Saturation 100% 05/03/2022 10:42 AM CDT Inhaled Oxygen Concentration - - Weight 129.7 kg (286 lb) 05/03/2022 10:42 AM CDT Height 161.3 cm (5' 3.5 ) 05/03/2022 10:42 AM CD T Body Mass Index 49.87 05/03/2022 10:42 AM CDT documented in this encounter Patient Instructions * Patient Instructions* Tracy Olivares MD - 05/03/2022 11:00 AM CDT Follow up in 8 weeks. Please get Tumeric for any inflammation at any local pharmacy. * Attachments The following attachments cannot be sent through Care Everywhere. * Weight Loss Tips (Pashto) documented in this encounter Progress Notes * Tracy Olivares MD - 05/03/2022 11:00 AM CDTSummary: Follow-up note Images from the original note were not included. Internal Medicine Outpatient Progress Note CC: Weight Problem and Medication Problem (C/o of upset stomach since starting januvia and atorvastatin) HPI: Keegan Amaya is a 66-year-old female who presents for for follow-up for weight issues. Patient had expressed interest about losing a couple of pounds. Notably is patient's chronic low back pain which is contributed by her weight gain. She has been on intermittent episodes of phentermine to help with weight loss. She comes in for her third follow-up for refill for phentermine. She never picked up her previous script for medication (third script). Her weight is down from 288 pounds to 286 pounds. She denies any concerns for chest tightness, shortness of breath, palpitations or ankle swelling. She has not tolerated GLP-1's in the past and hence this had to be discontinued. She is concerned about her medication for Januvia and atorvastatin. Having reflux symptom and tellsme she is taking only 20 mg daily of her omeprazole- advised to increase to 40 mg daily. No blood in stool or melena. Will keep her on her same dose of previous medications and patient agreeable. She will like refills on her Tramadol. She will like her blood drawn today for allergy test orderedby pulmonary. Problem List Patient Active Problem List Diagnosis [...] Outpatient Medications Marked as Taking for the 05/03/22 encounter (Office Visit) with Tracy Olivares MD [...] help with itching.) 28 g 1 ??? fluticasone propionate (FLONASE) 50 MCG/ACT [...] MOUTH EVERY DAY 180 capsule 1 ??? [START ON 05/13/2022] phentermine (ADIPEX-P) 37.5 MG tablet Take 1 [...] orthopnea, claudication, leg swelling and PND. Gastrointestinal: Positive for heartburn. Negative for abdominal pain, blood in stool, constipation, diarrhea, melena, nausea and vomiting. Genitourinary: Negative. Musculoskeletal: Negative. Neurological: Negative. Psychiatric/Behavioral: Negative. Objective: Filed Vitals: 05/03/22 1042 BP: 130/77 Pulse: 74 Resp: 20 Temp: 97.2 ??F (36.2 ??C) TempSrc: Temporal SpO2: 100% Weight: 129.7 kg (286 lb) Height: 5' 3.5 (1.613 m) Body mass index is 49.87 kg/m??. General alert, cooperative, no distress HEENT [...] (BMI) of 50.0 to 59.9 in adult ([facility]) E66.01 278.01 SEVERE OBESITY phentermine (ADIPEX-P) 37.5 MG tablet Z68.43 V85.43 2. Chronic bilateral low back pain with bilateral sciatica M54.42 724.2 CHRONIC LOW BACK PAIN traMADol (ULTRAM) 50 MG tablet M54.41 724.3 G89.29 338.29 3. Seasonal allergies J30.2 477.9 SEASONAL ALLERGY ALLERGENS UPPER RESP ALLERGENS UPPER RESP 1. Class 3 severe obesity due to excess calories without serious comorbidity with body mass index (BMI) of 50.0 to 59.9 in adult ([facility]) - this is her third refill - -Pt has elevated weight with BMI Body mass index is 49.87 kg/m??., and will need to work hard on reducing carbohydrates and total calories. -You may use the free smart phone apps such as [employer] to help track calories and try to [...] week and 5 pounds per month. - continue phentermine (ADIPEX-P) 37.5 MG tablet; Take 1 tablet (37.5 mg total) by mouth every other day for 30 days. Dispense: 15 tablet; Refill: 0 2. Chronic bilateral low back pain with bilateral sciatica - pain controlled - use traMADol (ULTRAM) 50 MG tablet; Take 1 tablet (50 mg total) by mouth 2 (two) times daily as needed for Pain. Indications: Chronic Pain Dispense: 60 tablet; Refill: 0 3. Seasonal allergies - ALLERGENS UPPER RESP; Future - ALLERGENS UPPER RESP Counseling given: Yes Comment: counseled by Dr Olivares I spent 30 minutes today reviewing the patient's medical record, obtaining history, performing an exam, ordering medications, tests, and/or procedures, documenting in the medical record, referring and/or communicating with other health care providers, counseling and educating the patient/family/caregiver and reviewing and communicating test results. Side effects and less common but more severe adverse effects of recommended medical therapies were explained to the patient. Follow up office visit in 2 months. Requested MyChart or telephone follow up prn if symptoms change, worsen, or persist, or if side effect of treatment is experienced. DRAGON: This dictation was at least in part performed using [employer] speak and there may be some inherent flaws in this chalk cutter due to the nature of this program. Tracy Olivares MD Internal Medicine [facility], [facility]. documented in this encounter Plan of Treatment Upcoming Encounters Date Type Department Care Team (Late st Contact Info) Description 10/03/2024 11:00 AM BLOCK SAWYER Office Visit [facility] Medical Group Pulmonology Specialty Clinic - [place] [id number] [facility] [address] [place] [address] Nathan Baig MD [address] [place] [address] 11/14/2024 10:20 AM BLOCK SAWYER Office Visit [facility] Medical Group Multispecialty Care - [place] [address] [address] [place] [address] Tracy Olivares MD [address] [facility] [address] [place] [address] documented as of this encounter Procedures Procedure Name Priority Date/Time Associated Diagnosis Comments ALLERGENS UPPER RESP Routine 05/03/2022 11:14 AM CDT Seasonal allergies documented in this encounter Results * (ABNORMAL) ALLERGENS UPPER RESP (05/03/2022 11:14 AM CDT) ALLERGEN D PTERONYSSINUS TNP kU/L [facility] Comment: TEST NOT PERFORMED No suitable specimen received. Please review the test requirements at testSyntonic Wireless.JoinTV.[employer]volent ALLERGEN CAT DANDER TNP kU/L [facility] Comment: TEST NOT PERFORMED No suitable specimen received. Please review the test requirements at testSyntonic Wireless.JoinTV.[employer]vol[employer] ALLERGEN COCKROACH SLOVAK TNP kU/L [facility] Comment: TEST NOT PERFORMED No suitable specimen received. Please review the test requirements at testScientific Revenue.Avolent ALLERGEN BOX ELDER/MAPLE TREE TNP kU/L [facility] Comment: TEST NOT PERFORMED No suitable specimen received. Please review the test requirements at testSyntonic Wireless.JoinTV.[employer] ALLERGEN OAK TREE TNP kU/L [facility] Comment: TEST NOT PERFORMED No suitable specimen received. Please review the test requirements at testSyntonic Wireless.JoinTV.[employer] ALLERGEN PECAN TREE TNP kU/L [facility] Comment: TEST NOT PERFORMED No suitable specimen received. Please review the test requirements at testSyntonic Wireless.JoinTV.[employer] ALLERGEN BERMUDA GRASS TNP kU/L [facility] Comment: TEST NOT PERFORMED No suitable specimen received. Please review the test requirements at testSyntonic Wireless.JoinTV.[employer] ALLERGEN COMMON SHORT RAGWEED TNP kU/L [facility] Comment: TEST NOT PERFORMED No suitable specimen received. Please review the test requirements at testSyntonic Wireless.[employer]TV[employer]zone [employer] ALLERGEN CITIZEN [place] TNP kU/L [facility] Comment: TEST NOT PERFORMED No suitable specimen received. Please review the test requirements at testdirectory.[employer] ALLERGEN MOUSE TNP kU/L [facility] Comment: TEST NOT PERFORMED No suitable specimen received. Please review the test requirements at testdirectory.[employer] IGE 131(H) <KT=523 kU/L [facility] INTERPRETATION [facility] Comment: Specific ?Level of Allergen [...] analytical performance characteristics have been determined by [facility]. It has not been cleared or approved by the U.S. Food and Drug Administration. This assay has been validated pursuant to the CLIA regulations and is used for clinical purposes. 05/03/2022 11:1 4 AM CDT 05/04/2022 2:47 PM CDT Tracy Olivares MD LABORATORY Final Result [email or web address] TYRONE ORDERS [facility] [address] [place] [address] documented in this encounter Visit Diagnoses Diagnosis Class 3 severe obesity due to excess calories without serious comorbidity with body mass index (BMI) of 50.0 to 59.9 in adult ([facility])- Primary Chronic bilateral low back pain with bilateral sciatica Seasonal allergies Allergic rhinitis, cause unspecified documented in this encounter Additional Health Concerns Assessment Noted Time PHQ-9 Depression Total Score: 5 01/06/20 22 10:48 AM CDT documented as of this encounter Care Teams Subway Repair Supervisor Relationship Specialty Start Date End Date Tracy Olivares MD [address] [facility] [address] [place] [address] PCP - General INTERNAL MEDICINE 01/02/21 Nathan Baig MD [address] [address] Consulting Physician Internal Medicine Pulmonary Disease 09/16/21 documented as of this encounter
--- OUTSIDE RECORDS SUMMARY | 2024-09-07 05:25 | XMS_ITS | Encounter Summary ---
Author Organization [facility] Address [address] [place] [address]. [place], [place] [address] [place] [address] Care Team Providers Care Composition Stone Applicator Name Role Phone Tracy Olivares MD Primary Care Provider [phone] Nathan Baig MD Unavailable [phone] Encounter Details Date Type Department Care Team (Latest Contact Info) Description 10/23/2021 Travel Social History Tobacco Use Types Packs/Day [...] Coronavirus/COVID-19? No / Unsure 10/23/2021 8:36 AM HEADING SAW OPERATOR documented as of this encounter Plan of Treatment Upcoming Encounters Date Type Department Care Team (Late st Contact Info) Description 10/03/2024 11:00 AM HEADING SAW OPERATOR Office Visit [facility] Medical Group Pulmonology Specialty Clinic - [address] [place] [address] Nathan Baig MD 3 [facility] [address] [place] [address] 11/14/2024 10:20 AM HEADING SAW OPERATOR Office Visit [facility] Medical Group Multispecialty Care - [place] [address] [address] [place] [address] Tracy Olivares MD [address] [place] [address] documented as of this encounter Visit Diagnoses Not on filedocumented in this encounter Additional Health Concerns Assessment Noted Time PHQ-9 Depression Total Score: 6 09/16/19 10:54 AM HEADING SAW OPERATOR documented as of this encounter Care Teams Composition Stone Applicator Relationship Specialty Start Date End Date Tracy Olivares MD [address] [place] [address] PCP - General INTERNAL MEDICINE 01/02/21 Nathan Baig MD 3 [facility] [address] [place] [address] Consulting Physician Internal Medicine Pulmonary Disease 09/16/21 documented as of this encounter
--- OUTSIDE RECORDS SUMMARY | 2024-09-07 05:25 | XMS_ITS | Encounter Summary ---
Author Organization [facility] Address [address] [place] [address]. [place], [place] [address] [place] [address] Care Team Providers Care Airline Pilot Name Role Phone Tracy Olivares MD Primary Care Provider [phone] Nathan Baig MD Unavailable Reason for Visit * Reason Onset Date Comments Reschedule 03/29/2022 Encounter Details Date Type Department Care Team (Late st Contact Info) Description 03/29/2022 Telephone [facility] Medical Group Multispecialty Care - [place] [address] [address] [place] [address] [place] [address] [place] [address] [address] [place] [address] Reschedule Social History Tobacco Use Types Packs/Day Years [...] encounter Progress Notes * Sadi Byrd - 03/29/2022 11:00 AM CDT Patient called and rescheduled appointment for 04/02/22 @ 11:40am. documented in this encounter Plan of Treatment Upcoming Encounters Date Type Department Care Team (Late st Contact Info) Description 10/03/2024 11:00 AM RESTAURANT MANAGING PARTNER Office Visit [facility] Medical [facility] Pulmonology Specialty Clinic - [address] [address] Nathan Baig MD [address] [address] 11/14/2024 10:20 AM RESTAURANT MANAGING PARTNER Office Visit [facility] Multispecialty Care - [place] [address] [address] [place] [address] Tracy Olivares MD [address] [place] [address] documented as of this encounter Visit Diagnoses Not on filedocumented in this encounter Additional Health Concerns Assessment Noted Time PHQ-9 Depression Total Score: 5 01/06/20 10:48 AM CDT documented as of this encounter Care Teams Airline Pilot Relationship Specialty Start Date End Date Tracy Olivares MD [address] [place] [address] PCP - General INTERNAL MEDICINE 01/02/21 Nathan Baig MD 3 [facility] [address] [place] [address] Consulting Physician Internal Medicine Pulmonary Disease 09/16/21 documented as of this encounter
--- OUTSIDE RECORDS SUMMARY | 2024-09-07 05:25 | XMS_ITS | Encounter Summary ---
Author Organization [facility] Address [address] [place] [address]. [place], [place] [address] [place] [address] Care Team Providers Care Planer Offbearer Name Role Phone Tracy Rain MD Primary Care Provider [phone] Nathan Baig MD Unavailable [phone] Reason for Visit * Reason Onset Date Comments Results 01/18/2022 Encounter Details Date Type Department Care Team (Late st Contact Info) Description 01/18/[address] [facility] Medical Group Multispecialty Care - [address] [place] [address] [place] [address] [place] [address] 157 [place] [address] Results Social History Tobacco Use [...] Progress Notes * Ilana Ochoa MA - 01/19/2022 11:08 AM CDT Patient is in office and dr rain let her know of her mammogram results * Tracy Rain MD - 01/18/2022 1:37 PM CDT Normal mammogram. Please call and update patient. We will return to routine yearly mammograms in 1 year. Thanks. Please call and update patient.. documented in this encounter Plan of Treatment Upcoming Encounters Date Type Department Care Team (Late st Contact Info) Description 10/03/2024 11:00 AM TAIL EDGER Office Visit [facility] Medical Group Pulmonology Specialty Clinic - [address] [address] Nathan Baig MD [address] [place] [address] 11/14/2024 10:20 AM TAIL EDGER Office Visit [facility] Multispecialty Care - [place] [address] [address] [place] [address] Tracy Rain MD [address] [place] [address] documented as of this encounter Visit Diagnoses Not on filedocumented in this encounter Additional Health Concerns Infection Onset Date Last Indicated Resolved Time COVID-19 Rule Out 01/19/2022 01/19/2022 01/19/2022 12:59 PM CDT Assessment Noted Time PHQ-9 Depression Total Score: 5 01/06/20 10:48 AM CDT documented as of this encounter Care Teams Planer Offbearer Relationship Specialty Start Date End Date Tracy Rain MD [address] [facility] [address] [place] [address] PCP - General INTERNAL MEDICINE 01/02/21 Nathan Baig MD [address] [address] Consulting Physician Internal Medicine Pulmonary Disease 09/16/21 documented as of this encounter
--- OUTSIDE RECORDS SUMMARY | 2024-09-07 05:25 | XMS_ITS | Encounter Summary ---
Author Organization [facility] Address [address] [place] [address]. [place], [place] [address] [place] [address] Care Team Providers Care Mother Repairer Name Role Phone Tracy Olivares MD Primary Care Provider [phone] Nathan Baig MD Unavailable [phone] Encounter Details Date Type Department Care Team (Latest Contact Info) Description 09/16/2021 Travel Social History Tobacco Use Types Packs/Day [...] COVID-19? No / Unsure 09/16/2021 9:58 AM PERFECT BIND MACHINE OPERATOR documented as of this encounter Plan of Treatment Upcoming Encounters Date Type Department Care Team (Late st Contact Info) Description 10/03/2024 11:00 AM PERFECT BIND MACHINE OPERATOR Office Visit [facility] Medical Group Pulmonology Specialty Clinic - [address] [place] [address] Nathan Baig MD 3 [facility] [address] [place] [address] 11/14/2024 10:20 AM PERFECT BIND MACHINE OPERATOR Office Visit [facility] Medical Group Multispecialty Care - [place] [address] [address] [place] [address] Tracy Olivares MD [address] [place] [address] documented as of this encounter Visit Diagnoses Not on filedocumented in this encounter Additional Health Concerns Assessment Noted Time PHQ-9 Depression Total Score: 6 09/16/19 10:54 AM PERFECT BIND MACHINE OPERATOR documented as of this encounter Care Teams Mother Repairer Relationship Specialty Start Date End Date Tracy Olivares MD [address] [place] [address] PCP - General INTERNAL MEDICINE 01/02/21 Nathan Baig MD 3 [facility] [address] [place] [address] Consulting Physician Internal Medicine Pulmonary Disease 09/16/21 documented as of this encounter
--- OUTSIDE RECORDS SUMMARY | 2024-09-07 05:25 | XMS_ITS | Encounter Summary ---
Author Organization [facility] Address [address] [place] [address]. [place], [place] [address] [place] [address] Care Team Providers Care Office Manager Receptionist Name Role Phone Tracy Olivares MD Primary Care Provider [phone] Nathan Baig MD Unavailable [phone] Reason for Referral * Consultation (Routine) - Closed Specialty Diagnoses / Procedures Referred By Heidi iverson Referred To Contact PODIATRY Diagnoses IGTN (ingrowing toe nail) Tracy Olivares MD [address] [address] Phone: tel: fax: [facility] [address] [address] Phone: tel: fax: Referral ID Status Reason Start Date Expiration Date V isits Requested Visits Authorized [id number] Closed Specialty Services 03/02/2022 04/02/2023 99 99 * Physical Medicine (Routine) - Closed Specialty Diagnoses / Procedures Referred By Heidi iverson Referred To Contact PHYSICAL THERAPY / [facility] Physical Therapy Diagnoses Chronic bilateral low back pain with bilateral sciatica Tracy Olivares MD [address] [address] Phone: tel: fax: [facility] [address] [facility] [address] [place] [address] Phone: tel: fax: Referral ID Status Reason Start Date Expiration Date V isits Requested Visits Authorized [id number] Closed Physical Therapy 03/02/2022 04/01/2023 10 10 Reason for Visit * Reason Comments Back Pain Weight Problem SMA Prediabetes Follow Up Toenail Encounter Details Date Type Department Care Team (Latest Contact Info) Description 03/02/2022 10:00 AM CDT Office Visit [facility] [place] [address] [place] [address] [address] [place] [address] Tracy Olivares MD [address] [facility] [address] [place], [place] [id number] Back Pain; Weight Problem; SMA Prediabetes Follow Up; Toenail Social History Tobacco Use Types Packs/Day Years [...] Sign Reading Time Taken Comments Blood Pressure 124/79 03/02/2022 10:11 AM CDT Pulse 78 03/02/2022 10:11 AM CDT Temperature 37 ??C (98.6 ??F) 03/02/2022 10: 11 AM CDT Respiratory Rate 18 03/02/2022 10:1 1 AM CDT Oxygen Saturation 98% 03/02/2022 10: 11 AM CDT Inhaled Oxygen Concentration - - Weight 129.2 kg (284 lb 12.8 oz) 2021 10:11 AM CDT Height 161.3 cm (5' 3.5 ) 03/02/2022 10 :11 AM CDT Body Mass Index 49.66 03/02/2022 10:11 AM CDT documented in this encounter Patient Instructions * Patient Instructions* Tracy Olivares MD - 03/02/2022 10:37 AM CDT Follow up in 4 weeks. * Attachments The following attachments cannot be sent through Care Everywhere. * Weight Loss Tips (Croatian) documented in this encounter Progress Notes * Tracy Olivares MD - 03/02/2022 10:00 AM CDTSummary: Follow-up note Images from the original note were not included. Internal Medicine Outpatient Progress Note CC: Back Pain, Weight Problem, SMA Prediabetes Follow Up, and Toenail HPI: Keegan Amaya is a 66-year-old -[place] female who presents for follow- up for prediabetes,low back pain, nail issue and weight issues. Patient complains about weight gain. Has not tolerated GLP-1's in the past due to side effects fromgastrointestinal symptoms. Previously was on phentermine. Recently has noticed worsening low back pain. Currently patient is on twice daily as needed. She has since been referred to physical therapy.Currently notes her symptoms are controlled on tramadol and muscle relaxant. Rates her pain as verymild whenever she takes her medications. Patient reports associated no associated numbness or tingling down the lower extremities. No recent falls or near falls. Her medications were recently adjusted for prediabetes and started on sitagliptin as she has not done well on metformin or GLP-1's. Patient reports she tolerates her medication without any side effects. This is her second visit for phentermine refill. Denies any concerns for shortness of breath patient's or ankle swelling. Currently patient does not actively exercise but does walk. Ambulates without a walker. Patient concerned about her right big toenail. Experiencing mild discomfort and thinks the nail might be going further into the flesh. He also notices associated darkening of the nailbed and that he medications at this time. Problem List Patient Active Problem List Diagnosis [...] Types: Cigarettes Quit date: 09/12/1984 Years since quittin.4 ??? Smokeless tobacco: Never Used ??? Tobacco comment: counseled by Dr Olivares Vaping Use ??? Vaping Use: Never used Substance Use Topics ??? Alcohol use: Not Currently ??? Drug use: Not Currently Medications: Outpatient Medications Marked as Taking for the 03/02/22 encounter (Office Visit) with Tracy Olivares MD Medication Sig Dispense Refill ??? albuterol sulfate HFA 108 (90 Base) MCG/ACT inhaler Inhale 2 puffs into the lungs every 4 (four) hours as needed. 18 g 5 ??? aspirin 81 MG tablet Take 81 mg by mouth daily. ??? Azelastine HCl 0.15 % Solution azelastine [...] next 4 weeks. 90 g 2 ??? fluticasone propionate (FLONASE) 50 MCG/ACT [...] EVERY DAY 180 capsule 1 ??? phentermine 37.5 MG tablet Take 1 tablet (37.5 mg total) by mouth every morning before breakfast for 30 days. 30 tablet 0 ??? SITagliptin 100 MG tablet Take 1 tablet (100 mg total) by mouth daily. 90 tablet 2 ??? tiZANidine 4 MG tablet Take 0.5 tablets (2 mg total) by mouth nightly at bedtime. at bedtime 90tablet 1 ??? [START ON 03/11/2022] traMADol 50 MG tablet Take 1 tablet [...] Negative. Genitourinary: Negative. Musculoskeletal: Positive for back pain. Negative for falls, joint pain, myalgias and neck pain. Skin: Right big toe in grown toe nail. Neurological: Negative. Objective: Filed Vitals: 03/02/22 1011 BP: 124/79 Pulse: 78 Resp: 18 Temp: 98.6 ??F (37 ??C) TempSrc: Temporal SpO2: 98% Weight: 129.2 kg (284 lb 12.8 oz) Height: 5' 3.5 (1.613 m) Body mass index is 49.66 kg/m??. General alert, cooperative, no distress HEENT [...] turgor normal. No rashes or lesions appreciated. Ingrown toenail of the right big toe. Dark coloration of the nailbed of the right big toenail. Neurologic No focal deficits, motor strength is grossly normal and symmetric Psych Normal mood and affect MSK No synovitis, no bony tenderness, no joint effusions Lymph No cervical or supraclavicular adenopathy Assessment and Plan: Encounter Diagnose(s) ICD-10-CM ICD-9-CM SNOMED CT(R) 1. Prediabetes R73.03 790.29 PREDIABETES SITagliptin 100 MG tablet 2. Chronic bilateral low back pain with bilateral sciatica M54.42 724.2 CHRONIC LOW BACK PAIN Ambulatory referral to Physical Therapy M54.41 724.3 traMADol 50 MG tablet G89.29 338.29 tiZANidine 4 MG tablet 3. Class 3 severe obesity due to excess calories without serious comorbidity with body mass index (BMI) of 50.0 to 59.9 in adult (CMS/FORMERLY [facility]) E66.01 278.01 SEVERE OBESITY phentermine 37.5 MG tablet Z68.43 V85.43 4. IGTN (ingrowing toe nail) L60.0 703.0 INGROWING TOENAIL Ambulatory referral to Podiatry (OTHER) 5. Fungal nail infection B35.1 110.1 ONYCHOMYCOSIS ciclopirox 0.77 % cream 6. Idiopathic peripheral neuropathy G60.9 356.9 IDIOPATHIC PERIPHERAL NEUROPATHY gabapentin 100 MG capsule 1. Prediabetes -Currently patient tolerating medications without any side effects. We will avoid any GLP-1's at this time and metformin as patient having severe gastrointestinal symptoms on these medications. - Lifestyle modification including dietary changes to include less saturated fats, lean meat, more vegetables and exercise at least 30 min every day. -Continue SITagliptin 100 MG tablet; Take 1 tablet (100 mg total) by mouth daily. Dispense: 90 tablet; Refill: 2 2. Chronic bilateral low back pain with bilateral sciatica -Patient pain currently mild on the medication; we did discuss adding physical therapy to help strengthen core muscles at this time. - Ambulatory referral to Physical Therapy -Continue traMADol 50 MG tablet; Take 1 tablet (50 mg total) by mouth 2 (two) times daily as neededfor Pain. Indications: Chronic Pain Dispense: 60 tablet; Refill: 0 -Continue tiZANidine 4 MG tablet; Take 0.5 tablets (2 mg total) by mouth nightly at bedtime. at bedtime Dispense: 90 tablet; Refill: 1 3. Class 3 severe obesity due to excess calories without serious comorbidity with body mass index (BMI) of 50.0 to 59.9 in adult ([facility]/FORMER[facility]) -This is her second refill for phentermine - -Pt has elevated weight with BMI Body mass index is 49.66 kg/m??., and will need to work hard on reducing carbohydrates and total calories. -You may use the free smart phone apps such as Tiltap to help track calories and try to [...] week and 5 pounds per month. - phentermine 37.5 MG tablet; Take 1 tablet (37.5 mg total) by mouth every morning before breakfastfor 30 days. Dispense: 30 tablet; Refill: 0 4. IGTN (ingrowing toe nail) - Ambulatory referral to Podiatry (OTHER) 5. Fungal nail infection - ciclopirox 0.77 % cream; Apply topically 2 (two) times daily. Apply to affected nail for the next4 weeks. Dispense: 90 g; Refill: 2 6. Idiopathic peripheral neuropathy -continue with gabapentin 100 MG capsule; Take 2 capsules (200 mg total) by mouth 3 (three) times daily. Dispense: 180 capsule; Refill: 1 Counseling given: Yes Comment: counseled by Dr Olivares I spent 40 [...] was at least in part performed using [employer] speak and there may be some inherent flaws in this bead forming machine set up operator due to the nature of this program. Tracy Olivares MD Internal Medicine [facility], [facility]. documented in this encounter Plan of Treatment Upcoming Encounters Date Type Department Care Team (Late st Contact Info) Description 10/03/2024 11:00 AM TRADE MANAGER Office Visit [facility] - [address] [address] Nathan Baig MD [address] [place] [address] 11/14/2024 10:20 AM TRADE MANAGER Office Visit [facility] - [place] [address] [address] [place] [address] Tracy Olivares MD [address] [address] Scheduled Referrals Name Type Priority Associated Diagnoses Orde r Schedule Ambulatory referral to Physical Therapy Referral Routine Chronic bilateral low back pain with bilateral sciatica Ordered: 03/02/2022 Ambulatory referral to Podiatry (OTHER) Referral Routine IGTN (ingrowing toe nail) Ordered: 03/02/2022 documented as of this encounter Visit Diagnoses Diagnosis Prediabetes- Primary Other abnormal glucose Chronic bilateral low back pain with bilateral sciatica Class 3 severe obesity due to excess calories without serious comorbidity with body mass index (BMI) of 50.0 to 59.9 in adult (CMS/HCC HHS/HCC) IGTN (ingrowing toe nail) Ingrowing nail Fungal nail infection Dermatophytosis of nail Idiopathic peripheral neuropathy Unspecified hereditary and idiopathic peripheral neuropathy documented in this encounter Additional Health Concerns Assessment Noted Time PHQ-9 Depression Total Score: 5 01/06/20 10:48 AM CDT documented as of this encounter Care Teams Office Manager Receptionist Relationship Specialty Start Date End Date Tracy Olivares MD [address] [facility] [address] [place] [address] PCP - General INTERNAL MEDICINE 01/02/21 Nathan Baig MD [address] [address] Consulting Physician Internal Medicine Pulmonary Disease 09/16/21 documented as of this encounter
--- OUTSIDE RECORDS SUMMARY | 2024-09-07 05:25 | XMS_ITS | Encounter Summary ---
Author Organization [facility] Address [address] [place] [address]. [place], [place] [id number] [place] [address] Care Team Providers Care Dobby Loom Chain Pegger Name Role Phone Tracy Olivares MD Primary Care Provider [phone] Nathan Baig MD Unavailable [phone] Encounter Details Date Type Department Care Team (Latest Contact Info) Description 03/19/2022 Travel Social History Tobacco Use Types Packs/Day [...] st Contact Info) Description 10/03/2024 11:00 AM EVENT MARKETING REPRESENTATIVE Office Visit [facility] - [address] [place], [place] [id number] Nathan aBig MD [address] [facility] [address] [place] [address] 11/14/2024 10:20 AM EVENT MARKETING REPRESENTATIVE Office Visit [facility] Mult[facility]pec[facility] - [place] [address] [address] [place] [address] Tracy Olivares MD [facility] [address] [address] documented as of this encounter Visit Diagnoses Not on filedocumented in this encounter Additional Health Concerns Assessment Noted Time PHQ-9 Depression Total Score: 5 01/06/20 10:48 AM CDT documented as of this encounter Care Teams Dobby Loom Chain Pegger Relationship Specialty Start Date End Date Tracy Olivares MD [address] [place] [id number] PCP - General INTERNAL MEDICINE 01/02/21 Nathan Baig MD 3 [facility] [address] [place] [address] Consulting Physician Internal Medicine Pulmonary Disease 09/16/21 documented as of this encounter
--- OUTSIDE RECORDS SUMMARY | 2024-09-07 05:25 | XMS_ITS | Encounter Summary ---
Author Organization [facility] Address [address] [place] [address]. [place] [id number] [place] [address] Care Team Providers Care Customer Service Manager Name Role Phone Tracy Olivares MD Primary Care Provider [phone] Nathan Baig MD Unavailable [phone] Reason for Visit * Reason Comments Follow Up 1 month f/u on weigh t loss, ozempic Encounter Details Date Type Department Care Team (Latest Contact Info) Description 10/08/2021 9:40 AM POLICY CHECKER Office Visit [facility] Multispecialty Care - [place] [address] [address] [place] [address] Tracy Olivares MD [address] [place] [address] Follow Up (1 month f/u on weight loss, ozempic) Social History Tobacco Use Types Packs/Day Years [...] COVID-19? No / Unsure 10/08/2021 9:29 AM POLICY CHECKER documented as of this encounter Last Filed Vital Signs Vital Sign Reading Time Taken Comments Blood Pressure 138/86 10/08/2021 9:50 AM POLICY CHECKER Pulse 89 10/08/2021 9:50 AM POLICY CHECKER Temperature 36.7 ??C (98.1 ??F) 10/08/2021 9:50 AM CS T Respiratory Rate 16 10/08/2021 9:50 AM POLICY CHECKER Oxygen Saturation 99% 10/08/2021 9:50 AM POLICY CHECKER Inhaled Oxygen Concentration - - Weight 128.8 kg (284 lb) 10/08/2021 9:50 AM POLICY CHECKER Height 161.3 cm (5' 3.5 ) 10/08/2021 9:50 AM POLICY CHECKER Body Mass Index 49.52 10/08/2021 9:50 AM POLICY CHECKER documented in this encounter Patient Instructions * Patient Instructions* Tracy Olivares MD - 10/08/2021 9:40 AM POLICY CHECKER Images from the original note were not included. Follow up in January 05, 2022- come fasting on this day. Patient Education Patient Education Diet and Health The Basics Written by the doctors and editors at [facility] Why is it important to eat a healthy diet???--??It's important to eat a healthy diet because eatingthe right foods can keep you healthy now and later on in life. Which foods are especially healthy???--??Foods that are especially healthy include: ?? Fruits and vegetables - Eating a diet with lots of fruits and vegetables can help prevent heart disease and strokes. It might also help prevent certain types of cancers. Try to eat fruits and vegetables at each meal and also for snacks. If you don't have fresh fruits and vegetables available, you can eat frozen or canned ones instead. Doctors recommend eating at least 2 1/2 servings of vegetables and 2 servings of fruits each day. ?? Foods with fiber - Eating foods with a lot of fiber can help prevent heart disease and strokes. If you have type 2 diabetes, it can also help control your blood sugar. Foods that have a lot of fiber include vegetables, fruits, beans, nuts, oatmeal, and whole grain breads and cereals. You can tell how much fiber is in a food by reading the nutrition label (figure 1). Doctors recommend eating 25to 36 grams of fiber each day. ?? Foods with folate (also called folic acid) - Folate is a vitamin that is important for people, since it helps prevent certain defects. Anyone who could get should get at least 400 micrograms of folic acid daily, whether or not they are actively trying to get . Folate is found in many breakfast cereals, oranges, orange juice, and green leafy vegetables. ?? Foods with calcium and vitamin D - Babies, children, and adults need calcium and vitamin D to help keep their bones strong. Adults also need calcium and vitamin D to help prevent osteoporosis. Osteoporosis is a condition that causes bones to get thin and break more easily than usual. Differentfoods and drinks have calcium and vitamin D in them (figure 2). People who don't get enough calciumand vitamin D in their diet might need to take a supplement. ?? Foods with protein - Protein helps your muscles stay strong. Healthy foods with a lot of proteininclude chicken, fish, eggs, beans, nuts, and soy products. Red meat also has a lot of protein, butit also contains fats, which can be unhealthy. Some experts recommend a Mediterranean diet. This involves eating a lot of fruits, vegetables, nuts, whole grains, and olive oil. It also includes some fish, poultry, and dairy products, but not a lot of red meat. Eating this way can help your overall health, and might even lower your risk of having a stroke. What foods should I avoid or limit???--??To eat a healthy diet, there are some things you should avoid or limit. They include: ?? Fats - There are different types of fats. Some types of fats are better for your body than others. Trans fats are especially unhealthy. They are found in margarines, many fast foods, and some store-bought baked goods. Trans fats can raise your cholesterol level and your increase your chance of getting heart disease. You should avoid eating foods with these types of fats. The type of polyunsaturated fats found in fish seems to be healthy and can reduce your chance of getting heart disease. Other polyunsaturated fats might also be good for your health. When you cook,it's best to use oils with healthier fats, such as olive oil and canola oil. ?? Sugar - To have a healthy diet, it's important to limit or avoid sugar, sweets, and refined grains. Refined grains are found in white bread, white rice, most forms of pasta, and most packaged snack foods. Whole grains, such as whole-wheat bread and brown rice, have more fiber and are better for your health. Avoiding sugar-sweetened beverages, like soda and sports drinks, can also help improve your health. ?? Red meat - Studies have shown that eating a lot of red meat can increase your risk of certain health problems, including heart disease and cancer. You should limit the amount of red meat that you eat. Can I drink alcohol as part of a healthy diet???--??People who drink a small amount of alcohol eachday might have a lower chance of getting heart disease. But drinking alcohol can lead to problems. For example, it can raise a person's chances of getting liver disease and certain types of cancers. In women, even 1 drink a day can increase the risk of getting breast cancer. Most doctors recommend that adult women not have more than 1 drink a day and that adult men not have more than 2 drinks a day. The limits are different because most women's bodies take longer to break down alcohol. How many calories do I need each day???--??The number of calories you need each day depends on yourweight, height, age, sex, and how active you are. Your doctor or nurse can tell you how many calories you should eat each day. If you are trying to lose weight, you should eat fewer calories each day. What if I have questions???--??If you have questions about which foods you should or should not eat, ask your doctor or nurse. The right diet for you will depend, in part, on your health and any medical conditions you have. All topics are updated as new evidence becomes available and our peer review process is complete. This topic retrieved from [employer] on: Aug 18, 2021. Topic 36259 Version 20.0 Release: 29.5.2 - C29.340 ?2020??[employer]. and/or its affiliates.??All rights reserved. figure 1: Nutrition label - fiber This is an example of a nutrition label. To figure out how much fiber is in a food, look for the line that says Dietary Fiber. It's also important to look at the serving size. This food has 7 gramsof fiber in each serving, and each serving is 1 cup. Graphic 13172 Version 7.0 figure 2: Foods and drinks with calcium and vitamin D Foods rich in calcium include ice cream, soy milk, breads, kale, broccoli, milk, cheese, cottage cheese, almonds, yogurt, cyizg-yr-fsf cereals, beans, and tofu. Foods rich in vitamin D include milk, fortified plant-based milks (soy, almond),??canned tuna fish, cod liver oil, yogurt, nwkix-vl-ccw-cereals, cooked salmon, canned sardines, mackerel, and eggs. Some of these foods are rich in both. Graphic 48601 Version 4.0 Consumer Information Use and Disclaimer This information is not specific medical advice and does not replace information you receive from your health care provider. This is only a brief summary of general information. It does NOT include all information about conditions, illnesses, injuries, tests, procedures, treatments, therapies, discharge instructions or life-style choices that may apply to you. You must talk with your health care provider for complete information about your health and treatment options. This information should not be used to decide whether or not to accept your health care provider's advice, instructions or recommendations. Only your health care provider has the knowledge and training to provide advice that is right for you. The use of this information is governed by the [employer] End User License Agreement, available at https://www.Newdea.[employer]/en/solutions/Ipropertyz/about/lonny.The use of [employer] content is governed by the [employer] Terms of Use. ??2021 [employer]api[employer]. All rights reserved. Copyright ?2020??[employer]. and/or its affiliates.??All rights reserved. CY CHECKER CY CHECKER documented in this encounter Progress Notes * Tracy Olivares MD - 10/08/2021 9:40 AM CSTSummary: Follow-up notes Images from the original note were not included. Internal Medicine Outpatient Progress Note CC: Follow Up (1 month f/u on weight loss, ozempic) HPI: Keegan Amaya is a 66-year-old female who presents for follow- up for weight issues. Currently on semaglutide 0.5 mg weekly. She recently ran out of her injection pains. Noted slightly delayed bowel movement whilst on medication. Denies any concerns for nausea or vomiting. Able to inject medication appropriately. Here for follow-up. Problem List Patient Active Problem List Diagnosis [...] specified anemias ??? RLS (restless legs syndrome) Past Medical History: Diagnosis Date ??? Anxiety [...] Outpatient Medications Marked as Taking for the 10/08/21 encounter (Office Visit) with Tracy Olivares MD [...] (THREE) TIMES DAILY. 180 capsule 1 ??? Losartan Potassium-HCTZ 100-12.5 MG Tab Take [...] 0 ??? ONETOUCH VERIO test strip ??? Semaglutide, [...] ??? Propoxyphene Unknown Review of Systems Constitutional: Negative. HENT: Negative. Eyes: Negative. Respiratory: Negative. Cardiovascular: Negative. Gastrointestinal: Negative. Genitourinary: Negative. Musculoskeletal: Negative. Skin: Negative. Neurological: Negative. Psychiatric/Behavioral: Negative. Objective: Filed Vitals: 10/08/21 0950 Pulse: 89 Resp: 16 Temp: 98.1 ??F (36.7 ??C) SpO2: 99% Weight: 128.8 kg (284 lb) Height: 5' 3.5 (1.613 m) Body mass index is 49.52 kg/m??. General alert, cooperative, no distress HEENT [...] SNOMED CT(R) 1. Prediabetes R73.03 790.29 PREDIABETES Semaglutide, 1 MG/DOSE, (OZEMPIC, 1 MG/DOSE,) 4 MG/3ML Solution Pen-injector 2. Obesity with serious comorbidity, unspecified classification, unspecified obesity type E66.9 278.00 OBESITY Semaglutide, 1 MG/DOSE, (OZEMPIC, 1 MG/DOSE,) 4 MG/3ML Solution Pen-injector 1. Prediabetes - stable; tolerating medication with no side effects - increase to Semaglutide, 1 MG/DOSE, (OZEMPIC, 1 MG/DOSE,) 4 MG/3ML Solution Pen-injector; Inject 1 mg into the skin weekly. Dispense: 6 mL; Refill: 3 - Lifestyle modification including dietary changes to include less saturated fats, lean meat, more vegetables and exercise at least 30 min every day. 2. Obesity with serious comorbidity, unspecified classification, unspecified obesity type - -Pt has elevated weight with BMI Body mass index is 49.52 kg/m??., and will need to work hard on reducing carbohydrates and total calories. -You may use the free smart phone apps such as Tsukulink to help track calories and try to [...] week and 5 pounds per month. - increase to Semaglutide, 1 MG/DOSE, (OZEMPIC, 1 MG/DOSE,) 4 MG/3ML Solution Pen-injector; Inject 1 mg into the skin weekly. Dispense: 6 mL; Refill: 3 Counseling given: Yes Comment: counseled by Dr [...] the patient. Follow up office visit in 3 months. Requested MyChart or telephone follow up prn if symptoms change, worsen, or persist, or if side effect of treatment is experienced. DRAGON: This dictation was at least in part performed using LineHop and there may be some inherent flaws in this librarian assistant due to the nature of this program. Tracy Olivares MD Internal Medicine [facility], [facility]. CY CHECKER documented in this encounter Plan of Treatment Upcoming Encounters Date Type Department Care Team (Late st Contact Info) Description 10/03/2024 11:00 AM POLICY CHECKER Office Visit [facility] Medical [facility] - [address] [address] Nahtan Baig MD [address] [place] [address] 11/14/2024 10:20 AM POLICY CHECKER Office Visit [facility] Medical Group Multispecialty Care - [place] [address] [address] [place] [address] Tracy Olivares MD [address] [place] [address] documented as of this encounter Visit Diagnoses Diagnosis Prediabetes- Primary Other abnormal glucose Obesity with serious comorbidity, unspecified classification, unspecified obesity type documented in this encounter Additional Health Concerns Assessment Noted Time PHQ-9 Depression Total Score: 6 09/16/19 10:54 AM POLICY CHECKER documented as of this encounter Care Teams Customer Service Manager Relationship Specialty Start Date End Date Tracy Olivares MD [address] [address] PCP - General INTERNAL MEDICINE 01/02/21 Nathan Baig MD [address] [address] Consulting Physician Internal Medicine Pulmonary Disease 09/16/21 documented as of this encounter
--- OUTSIDE RECORDS SUMMARY | 2024-09-07 05:25 | XMS_ITS | Encounter Summary ---
Author Organization [facility] - [facility] Address [address] [place] [address]. [place], [place] [address] [place] [address] Care Team Providers Care Book Agent Name Role Phone Tracy Olivares MD Primary Care Provider [phone] Nathan Baig MD Unavailable [phone] Reason for Visit * Reason Onset Date Comments Follow Up Call 10/06/2021 Encounter Details Date Type Department Care Team (Late st Contact Info) Description 10/06/2021 Telephone [facility] Multispecialty Care - [place] [address] [address] [place] [address] [place] [address] [place] [address] [address] [place] [address] Follow Up Call Social History [...] COVID-19? No / Unsure 09/25/2021 8:58 AM POCKET FLAP CREASING MACHINE OPERATOR documented as of this encounter Progress Notes * Tracy Olivares MD - 10/06/2021 1:09 PM CST Called patient again today- no response- voicemail full and cannot leave message. ET FLAP CREASING MACHINE OPERATOR documented in this encounter Plan of Treatment Upcoming Encounters Date Type Department Care Team (Late st Contact Info) Description 10/03/2024 11:00 AM POCKET FLAP CREASING MACHINE OPERATOR Office Visit [facility] Medical [facility] Specialty [facility] - [address] [address] Nathan Baig MD [address] [address] 11/14/2024 10:20 AM POCKET FLAP CREASING MACHINE OPERATOR Office Visit [facility] Multispecialty Care - [place] [address] [address] [place] [address] Tracy Olivares MD [address] [address] documented as of this encounter Visit Diagnoses Not on filedocumented in this encounter Additional Health Concerns Assessment Noted Time PHQ-9 Depression Total Score: 6 09/16/19 10:54 AM POCKET FLAP CREASING MACHINE OPERATOR documented as of this encounter Care Teams Book Agent Relationship Specialty Start Date End Date Tracy Olivares MD [address] [place] [address] PCP - General INTERNAL MEDICINE 01/02/21 Nathan Baig MD 3 [facility] [address] [place] [address] Consulting Physician Internal Medicine Pulmonary Disease 09/16/21 documented as of this encounter
--- OUTSIDE RECORDS SUMMARY | 2024-09-07 05:25 | XMS_ITS | Encounter Summary ---
Author Organization [facility] - [facility] Address [address] [place] [address]. [place], [place] [address] [place] [address] Care Team Providers Care Teacher Of The Sight Impaired Name Role Phone Tracy Olivares MD Primary Care Provider [phone] Nathan Baig MD Unavailable [phone] Reason for Visit * Reason Onset Date Comments Medication Question 10/23/2021 Encounter Details Date Type Department Care Team (Late st Contact Info) Description 10/23/2021 Telephone [facility] Medical Group Multispecialty Care - [place] [address] [place] [address] [address] [place] [address] [place] [address] [place] [address] [address] [place] [address] Medication Question Social History Tobacco Use Types Packs/Day [...] Coronavirus/COVID-19? No / Unsure 10/23/2021 8:36 AM PILLOW AGENT documented as of this encounter Progress Notes * Tracy Olivares MD - 10/23/2021 12:12 PM CST Patient called and advised to complete her current doses of sermaglutide as she still has old stockat home. All questions answered. Tracy Olivares MD Internal Medicine [facility], [facility]. OW AGENT * Sadi Byrd - 10/23/2021 8:48 AM CST Patient came and and wanted to let provider know that patient wants to go to the higher dose of Ozempic starting 10/29/21. OW AGENT documented in this encounter Plan of Treatment Upcoming Encounters Date Type Department Care Team (Late st Contact Info) Description 10/03/2024 11:00 AM PILLOW AGENT Office Visit [facility] Pulmonology Specialty Clinic - [address] [address] Nathan Baig MD [address] [place] [address] 11/14/2024 10:20 AM PILLOW AGENT Office Visit [facility] Multispecialty Care - [place] [address] [address] [place] [address] Tracy Olivares MD [facility] [address] documented as of this encounter Visit Diagnoses Not on filedocumented in this encounter Additional Health Concerns Assessment Noted Time PHQ-9 Depression Total Score: 6 09/16/19 10:54 AM PILLOW AGENT documented as of this encounter Care Teams Teacher Of The Sight Impaired Relationship Specialty Start Date End Date Tracy Olivares MD [address] [place] [id number] PCP - General INTERNAL MEDICINE 01/02/21 Nathan Baig MD [address] [address] Consulting Physician Internal Medicine Pulmonary Disease 09/16/21 documented as of this encounter
--- OUTSIDE RECORDS SUMMARY | 2024-09-07 05:25 | XMS_ITS | Encounter Summary ---
Author Organization [facility] Address [address] [place] [address]. [place], [place] [address] [place] [address] Care Team Providers Care Laboratory Chemical Assistant Name Role Phone Tracy Olivares MD Primary Care Provider [phone] Nathan Baig MD Unavailable [phone] Reason for Visit * Reason Onset Date Comments Orders 04/23/2022 Encounter Details Date Type Department Care Team (Late st Contact Info) Description 04/23/2022 Telephone [facility] Mult[facility]pecialty Care - [facility] [address] [facility] [address] [place] [id number] Nathan Baig MD 3 [facility] [address] [place] [address] Orders Social History Tobacco Use Types Packs/Day [...] Progress Notes * Lynette Pink MA - 04/23/2022 11:17 AM CDT Order faxed to IV * Lynette Pink MA - 04/23/2022 11:17 AM CDT ----- Message from Nathan Baig MD sent at 04/23/2022 10:38 AM CDT ----- Regarding: New mask Please submit orders for her to be able to try a different mask. Nathan Baig MD documented in this encounter Plan of Treatment Upcoming Encounters Date Type Department Care Team (Late st Contact Info) Description 10/03/2024 11:00 AM SKELP PROCESSOR Office Visit [facility] - [address] [address] Nathan Baig MD [address] [place] [address] 11/14/2024 10:20 AM SKELP PROCESSOR Office Visit [facility] Multispecialty Care - [place] [address] [address] [place] [address] Tracy Olivares MD [address] [place] [address] [address] [place] [address] documented as of this encounter Visit Diagnoses Not on filedocumented in this encounter Additional Health Concerns Assessment Noted Time PHQ-9 Depression Total Score: 5 01/06/20 10:48 AM CDT documented as of this encounter Care Teams Laboratory Chemical Assistant Relationship Specialty Start Date End Date Tracy Olivares MD [address] [facility] [address] [place] [address] PCP - General INTERNAL MEDICINE 01/02/21 Nathan Baig MD [address] [address] Consulting Physician Internal Medicine Pulmonary Disease 09/16/21 documented as of this encounter
--- OUTSIDE RECORDS SUMMARY | 2024-09-07 05:25 | XMS_ITS | Encounter Summary ---
Author Organization [facility] Address [address] [place] [address]. [place], [place] [address] [place] [address] Care Team Providers Care Cloth Boil Off Machine Operator Name Role Phone Tracy Olivares MD Primary Care Provider [phone] Nathan Baig MD Unavailable [phone] Encounter Details Date Type Department Care Team (Latest Contact Info) Description 03/24/2022 Travel Social History Tobacco Use Types Packs/Day [...] 10/03/2024 11:00 AM PANTS CUTTER Office Visit [facility] Medical Group Pulmonology Specialty Clinic - [address] [place], [place] [phone] Nathan Baig MD 3 [facility] [address] [place] [address] 11/14/2024 10:20 AM PANTS CUTTER Office Visit [facility] Medical Group Multispecialty Care - [place] [address] [address] [place] [address] Tracy Olivares MD [facility] [address] [address] documented as of this encounter Visit Diagnoses Not on filedocumented in this encounter Additional Health Concerns Assessment Noted Time PHQ-9 Depression Total Score: 5 01/06/20 10:48 AM CDT documented as of this encounter Care Teams Cloth Boil Off Machine Operator Relationship Specialty Start Date End Date Tracy Olivares MD [address] [place] [address] PCP - General INTERNAL MEDICINE 01/02/21 Nathan Baig MD 3 [facility] [address] [place] [address] Consulting Physician Internal Medicine Pulmonary Disease 09/16/21 documented as of this encounter
--- OUTSIDE RECORDS SUMMARY | 2024-09-07 05:25 | XMS_ITS | Encounter Summary ---
Author Organization [facility] Address [address] [place] [address]. [place], [place] [address] [place] [address] Care Team Providers Care Cut Out Operator Name Role Phone Tracy Olivares MD Primary Care Provider [phone] Nathan Baig MD Unavailable [phone] Encounter Details Date Type Department Care Team (Latest Contact Info) Description 09/25/2021 Travel Social History Tobacco Use Types Packs/Day [...] COVID-19? No / Unsure 09/25/2021 8:58 AM YARN WORKER documented as of this encounter Plan of Treatment Upcoming Encounters Date Type Department Care Team (Late st Contact Info) Description 10/03/2024 11:00 AM YARN WORKER Office Visit [facility] - [address] [place] [address] Nathan Baig MD 3 [facility] [address] [place] [address] 11/14/2024 10:20 AM YARN WORKER Office Visit [facility] Multispecialty Care - [place] [address] [address] [place] [address] Tracy Olivares MD [address] [place] [address] documented as of this encounter Visit Diagnoses Not on filedocumented in this encounter Additional Health Concerns Assessment Noted Time PHQ-9 Depression Total Score: 6 09/16/19 10:54 AM YARN WORKER documented as of this encounter Care Teams Cut Out Operator Relationship Specialty Start Date End Date Tracy Olivares MD [address] [place] [address] PCP - General INTERNAL MEDICINE 01/02/21 Nathan Baig MD 3 [facility] [address] [place] [address] Consulting Physician Internal Medicine Pulmonary Disease 09/16/21 documented as of this encounter
--- OUTSIDE RECORDS SUMMARY | 2024-09-07 05:25 | XMS_ITS | Encounter Summary ---
Author Organization [facility] Address [address] [place] [address]. [place], [place] [address] [place] [address] Care Team Providers Care Ground Worker Name Role Phone Tracy Olivares MD Primary Care Provider [phone] Nathan Baig MD Unavailable [phone] Encounter Details Date Type Department Care Team (Latest Contact Info) Description 01/19/2022 Travel Social History Tobacco Use Types Packs/Day [...] Contact Info) Description 10/03/2024 11:00 AM RETAIL STORE CLERK [facility] - [address] [place] [address] Nathan Baig MD 3 [facility] [address] [place] [address] 11/14/2024 10:20 AM RETAIL STORE CLERK [facility] Multispecialty Care - [place] [address] [address] [place] [address] Tracy Olivares MD [facility] [address] [address] documented as of this encounter Visit Diagnoses Not on filedocumented in this encounter Additional Health Concerns Infection Onset Date Last Indicated Resolved Time COVID-19 Rule Out 01/19/2022 01/19/2022 01/19/2022 12:59 PM CDT Assessment Noted Time PHQ-9 Depression Total Score: 5 01/06/20 10:48 AM CDT documented as of this encounter Care Teams Ground Worker Relationship Specialty Start Date End Date Tracy Olivares MD [address] [place] [address] PCP - General INTERNAL MEDICINE 01/02/21 Nathan Baig MD 3 [facility] [address] [place] [address] Consulting Physician Internal Medicine Pulmonary Disease 09/16/21 documented as of this encounter
--- OUTSIDE RECORDS SUMMARY | 2024-09-07 05:25 | XMS_ITS | Encounter Summary ---
Author Organization [facility] Address [address] [place] [address]. [place], [place] [address] [place] [address] Care Team Providers Care Lug Loader Name Role Phone Tracy Olivares MD Primary Care Provider [phone] Nathan Baig MD Unavailable [phone] Reason for Visit * Reason Onset Date Comments Orders 03/04/2022 Encounter Details Date Type Department Care Team (Late st Contact Info) Description 03/04/2022 Telephone [facility] Medical [facility] Multispecialty Care - [facility] 3 [facility] [address] [place] [phone] Nathan Baig MD 3 [facility] [address] [place] [address] Orders Social History Tobacco Use Types Packs/Day [...] Progress Notes * Lynette Pink MA - 03/04/2022 1:21 PM CDT Order faxed to outpatient registration at [place], Called and informed patient. * Leena Davis - 03/04/2022 9:40 AM CDT Patient is requesting her order for her lung test from Dr. Baig be sent to [facility]. Patient states [place] is closer for her. Call patient after the office has sent the order. Patient callback number [phone] documented in this encounter Plan of Treatment Upcoming Encounters Date Type Department Care Team (Late st Contact Info) Description 10/03/2024 11:00 AM RECORD CHANGER ASSEMBLER Office Visit [facility] Clinic - [address] [address] Nathan Baig MD [address] [place] [address] 11/14/2024 10:20 AM RECORD CHANGER ASSEMBLER Office Visit [facility] Medical [facility] Multispecialty Care - [place] [address] [address] [place] [address] Tracy Olivares MD [address] [place] [address] 157 [place] [address] documented as of this encounter Visit Diagnoses Not on filedocumented in this encounter Additional Health Concerns Assessment Noted Time PHQ-9 Depression Total Score: 5 01/06/20 10:48 AM CDT documented as of this encounter Care Teams Lug Loader Relationship Specialty Start Date End Date Tracy Olivares MD [address] [facility] [address] [place] [address] PCP - General INTERNAL MEDICINE 01/02/21 Nathan Baig MD [address] [address] Consulting Physician Internal Medicine Pulmonary Disease 09/16/21 documented as of this encounter
--- OUTSIDE RECORDS SUMMARY | 2024-09-07 05:25 | XMS_ITS | Encounter Summary ---
Author Organization [facility] Address [address] [place] [address]. [place], [place] [address] [place] [address] Care Team Providers Care Gut Dropper Name Role Phone Tracy Olivares MD Primary Care Provider [phone] Nathan Baig MD Unavailable [phone] Encounter Details Date Type Department Care Team (Latest Contact Info) Description 01/19/2022 - 01/19/2022 11:59 PM CDT Hospital Encounter [facility] [address] [facility] [address] Tracy Olivares MD 1188 [facility] 157 [place] [address] Discharge Disposition: Home or Self Care (Routine [...] AM CDT documented as of this encounter Medications at Time of Discharge aspirin 81 MG tablet Take 1 tablet (81 mg total) by mouth daily. ONETOUCH VERIO test strip 01/18/2021 albuterol sulfate HFA 108 (90 Base) MCG/ACT inhalerIndications: Seasonal allergic rhinitis due to pollen Inhale 2 puffs into the lungs every 4 (four) hours as needed. 18 g 5 01/05/2022 2 atorvastatin 20 MG tabletIndications:M ixed hyperlipidemia Take 1 tablet (20 mg total) by mouth nightly at bedtime. at bedtime 90 tablet 1 01/05/2022 2 Azelastine HCl 0.15 % SolutionIndications :Seasonal allergic rhinitis due to pollen azelastine 205.5 mcg (0.15 %) nasal spray SPRAY 2 SPRAY(S) TWICE A DAY BY INTRANASAL ROUTE FOR 30 DAYS. 30 mL 5 01/19/2022 2 Cetirizine HCl (ZYRTEC ALLERGY) 10 MG CapIndications:Acut e pharyngitis, unspecified etiology Take 10 mg by mouth daily. 30 capsule 05/20/2021 3 diphenhydrAMINE-zin c (BENADRYL EXTRA STRENGTH) 2-0.1 % Cream creamIndications:Pr uritus Use twice daily on skin to help with itching. 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 90 tablet 2 01/05/2022 2 fluticasone propionate (FLONASE) 50 MCG/ACT nasal sprayIndications:Se asonal allergic rhinitis due to pollen 2 sprays by Nasal route daily. 16 g 5 01/19/2022 4 fluticasone-salmete rol 250-50 MCG/ACT inhaler Wixela Inhub 250 mcg-50 mcg/dose powder for inhalation TAKE 1 PUFF BY MOUTH TWICE A DAY 2 gabapentin 100 MG capsuleIndications: Idiopathic peripheral neuropathy Take 2 capsules (200 mg total) by mouth 3 (three) times daily. 180 capsule 1 01/05/2022 2 losartan-hydroCHLOR Othiazide 100-12.5 MG TabIndications:Esse ntial hypertension Take 1 tablet by mouth daily. 90 tablet 3 01/05/2022 2 meclizine 12.5 MG tabletIndications:V ertigo Take 1 tablet (12.5 mg total) by mouth nightly as needed. 20 tablet 09/01/2021 4 methylPREDNISolone, KAREN, 4 MG tabletIndications:U pper respiratory tract infection, unspecified type 6 TABLETS ON DAY ONE, 5 TABLETS DAY TWO, 4 TABLETS DAY THREE, 3 TABLETS DAY FOUR, 2 TABLETS DAY FIVE, AND 1 TABLET DAY SIX 1 each 01/19/2022 2 metoclopramide 5 MG tabletIndications:P UD (peptic ulcer disease) Take 1 tablet (5 mg total) by mouth 3 (three) times a day. 20 tablet 08/17/2021 2 molnupiravir 200 mg capsuleIndications: COVID-19 virus infection Take 4 capsules (800 mg total) by mouth 2 (two) times daily for 5 days. 40 capsule 01/19/2022 2 OMEPRAZOLE 20 MG capsuleIndications: Gastroesophageal reflux disease without esophagitis TAKE 2 CAPSULES BY MOUTH EVERY DAY 180 capsule 1 12/06/2021 2 ondansetron 4 MG tabletIndications:G astroesophageal reflux disease without esophagitis Take 1 tablet (4 mg total) by mouth every 8 (eight) hours as needed for Nausea. 20 tablet 09/10/2021 2 pantoprazole EC 40 MG tablet Take 40 mg by mouth every morning. 01/12/2022 2 phentermine 37.5 MG tabletIndications:C lass 3 severe obesity due to excess calories without serious comorbidity with body mass index (BMI) of 50.0 to 59.9 in adult ([facility]/HCC [facility]) Take 1 tablet (37.5 mg total) by mouth every other day. 30 tablet 01/05/2022 2 Semaglutide, 1 MG/DOSE, (OZEMPIC, 1 MG/DOSE,) 4 MG/3ML Solution Pen-injectorIndicat ions:Prediabetes,Ob esity with serious comorbidity, unspecified classification, unspecified obesity type Inject 1 mg into the skin weekly. 6 mL 3 10/08/2021 2 Senna 8.6 MG tabletIndications:C onstipation, unspecified constipation type Take 1 tablet (8.6 mg total) by mouth daily as needed for Constipation. 30 tablet 1 09/10/2021 2 SITagliptin 100 MG tabletIndications:P rediabetes Take 1 tablet (100 mg total) by mouth daily. 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 at bedtime 90 tablet 1 01/05/2022 2 traMADol 50 MG tabletIndications:C hronic Pain Take 1 tablet (50 mg total) by mouth 2 (two) times daily as needed for Pain. Indications: Chronic Pain 60 tablet 01/05/2022 2 TRELEGY 100-62.5-25 MCG/INH AEROSOL POWDER, BREATH ACTIVATEDIndication s:Pulmonary emphysema, unspecified emphysema type (CMS/HCC HHS/HCC) Inhale 1 puff into the lungs daily. Rinse and spit after use 3 each 3 01/05/2022 2 Vitamin D, Cholecalciferol, 50 MCG (1999 UT) CapIndications:[place]anta min D deficiency Take 1,000 Units by mouth daily. 30 capsule 03/03/2021 4 documented as of this encounter Plan of Treatment Upcoming Encounters Date Type Department Care Team (Late st Contact Info) Description 10/03/2024 11:00 AM RETAIL REPRESENTATIVE Office Visit [facility] Pulmonology Specialty Clinic - [address] [place] [address] Nathan Baig MD [address] [place] [address] 11/14/2024 10:20 AM RETAIL REPRESENTATIVE Office Visit [facility] Medical [facility] Multispecialty Care - [place] [address] [address] [place] [address] Tracy Olivares MD [address] [address] documented as of this encounter Visit Diagnoses Not on filedocumented in this encounter Additional Health Concerns Infection Onset Date Last Indicated Resolved Time COVID-19 Rule Out 01/19/2022 01/19/2022 01/19/2022 12:59 PM CDT Assessment Noted Time PHQ-9 Depression Total Score: 5 01/06/20 10:48 AM CDT documented as of this encounter Care Teams Gut Dropper Relationship Specialty Start Date End Date Tracy Olivares MD [address] [place] [address] PCP - General INTERNAL MEDICINE 01/02/21 Nathan Baig MD [address] [address] Consulting Physician Internal Medicine Pulmonary Disease 09/16/21 documented as of this encounter
--- OUTSIDE RECORDS SUMMARY | 2024-09-07 05:25 | XMS_ITS | Encounter Summary ---
Author Organization [facility] Address [address] [place] [address]. [place], [place] [address] [place] [address] Care Team Providers Care Supervisor Mold Construction Name Role Phone Tracy Olivares MD Primary Care Provider [phone] Nathan Baig MD Unavailable [phone] Reason for Visit * Reason Onset Date Comments Follow Up Call 01/20/2022 Encounter Details Date Type Department Care Team (Late st Contact Info) Description 01/20/2022 Telephone [facility] Medical Group Multispecialty Care - [place] [address] [address] [place] [address] [place] [address] [place] [address] 157 [place] [address] Follow Up Call Social History [...] Progress Notes * Tracy Olivares MD - 01/20/2022 4:37 PM CDT I called patient to follow-up on her questions about quarantining. All questions answered She did bring to my attention that she did not pickling solution maker her antiviral medication to help with her COVID symptoms. It appears patient is not taking her prednisone correctly. I did go over how to take her prednisone dose appropriately. Patient about possible GI side effects from taking antiviral medication. Patient aware medication is available to her and that most medications do have some GI side effects. I would however recommendshe take the antiviral medication given her underlying comorbidities however defering final decision to her. Tracy Olivares MD Internal Medicine [facility], [facility]. documented in this encounter Plan of Treatment Upcoming Encounters Date Type Department Care Team (Late st Contact Info) Description 10/03/2024 11:00 AM PET CARE WORKER Office Visit [facility] Pulmonology Specialty Clinic - [address] [address] Nathan Baig MD [address] [place] [address] 11/14/2024 10:20 AM PET CARE WORKER Office Visit [facility] Multispecialty Care - [place] [address] [address] [place] [address] Tracy Olivares MD [address] [place] [address] documented as of this encounter Visit Diagnoses Not on filedocumented in this encounter Additional Health Concerns Infection Onset Date Last Indicated Resolved Time COVID-19 Confirmed 01/19/2022 01/19/2022 12:32 AM CDT Assessment Noted Time PHQ-9 Depression Total Score: 5 01/06/20 10:48 AM CDT documented as of this encounter Care Teams Supervisor Mold Construction Relationship Specialty Start Date End Date Tracy Olivares MD 1188 [facility] 157 [place] [address] PCP - General INTERNAL MEDICINE 01/02/21 Nathan Baig MD [address] [address] Consulting Physician Internal Medicine Pulmonary Disease 09/16/21 documented as of this encounter
--- OUTSIDE RECORDS SUMMARY | 2024-09-07 05:25 | XMS_ITS | Encounter Summary ---
Author Organization [facility] Address [address] [place] [address]. [place], [place] [address] [place] [address] Care Team Providers Care Right Of Way Supervisor Name Role Phone Tracy Olivares MD Primary Care Provider [phone] Nathan Baig MD Unavailable [phone] Reason for Visit * Reason Onset Date Comments Medication Problem 03/08/2022 Encounter Details Date Type Department Care Team (Late st Contact Info) Description 03/08/2022 Telephone [facility] Medical [facility] Multispecialty Care - [place] [address] [place] [address] [address] [place] [address] [place] [address] [place] [address] 157 [place] [address] Medication Problem Social History Tobacco [...] encounter Progress Notes * Sadi Byrd - 03/08/2022 1:43 PM CDT Patient called and stated that she hasn't been sleeping well for the last week. She thinks that thegabapentin is affecting her sleep. She is also concerned that stress might be keeping her awake. Please call patient to discuss. documented in this encounter Plan of Treatment Upcoming Encounters Date Type Department Care Team (Late st Contact Info) Description 10/03/2024 11:00 AM CLINICAL INFORMATICS DIRECTOR Office Visit [facility] Medical [facility] Pulmonology Specialty Clinic - [address] [address] Nathan Baig MD [address] [address] 11/14/2024 10:20 AM CLINICAL INFORMATICS DIRECTOR Office Visit [facility] Multispecialty Care - [place] [address] [address] [place] [address] Tracy Olivares MD [facility] [address] [address] documented as of this encounter Visit Diagnoses Not on filedocumented in this encounter Additional Health Concerns Assessment Noted Time PHQ-9 Depression Total Score: 5 01/06/20 22 10:48 AM CDT documented as of this encounter Care Teams Right Of Way Supervisor Relationship Specialty Start Date End Date Tracy Olivares MD [address] [place] [address] PCP - General INTERNAL MEDICINE 01/02/21 Nathan Baig MD [address] [facility] [address] [place] [address] Consulting Physician Internal Medicine Pulmonary Disease 09/16/21 documented as of this encounter
--- OUTSIDE RECORDS SUMMARY | 2024-09-07 05:25 | XMS_ITS | Encounter Summary ---
Author Organization [facility] Address [address] [place] [address]. [place], [place] [address] [place] [address] Care Team Providers Care On Site Property Manager Name Role Phone Tracy Olivares MD Primary Care Provider [phone] Nathan Baig MD Unavailable [phone] Reason for Visit * Reason Onset Date Comments Results 06/08/2022 Encounter Details Date Type Department Care Team (Late st Contact Info) Description 06/08/2022 Telephone [facility] Multispecialty Care - [facility] 3 [facility] [address] [place] [address] Nathan Baig MD 3 [facility] [address] [place], [place] [address] Results Social History Tobacco Use Types Packs/Day [...] Progress Notes * Lynette Pink MA - 07/06/2022 12:34 PM CDT Called and went over the results with patient and she voiced understanding. * Lynette Pink MA - 06/08/2022 8:31 AM CDT Images from the original note were not included. documented in this encounter Plan of Treatment Upcoming Encounters Date Type Department Care Team (Late st Contact Info) Description 10/03/2024 11:00 AM PROCESS LINE OPERATOR Office Visit [facility] Medical [facility] Pulmonology Specialty Clinic - [address] [address] Nathan Baig MD [address] [place] [address] 11/14/2024 10:20 AM PROCESS LINE OPERATOR Office Visit [facility] Medical Group Multispecialty Care - [place] [address] [address] [place] [address] Tracy Olivares MD [address] [place] [address] documented as of this encounter Visit Diagnoses Not on filedocumented in this encounter Additional Health Concerns Assessment Noted Time PHQ-9 Depression Total Score: 5 01/06/20 10:48 AM CDT documented as of this encounter Care Teams On Site Property Manager Relationship Specialty Start Date End Date Tracy Olivares MD [address] [place] [address] PCP - General INTERNAL MEDICINE 01/02/21 Nathan Baig MD [address] [address] Consulting Physician Internal Medicine Pulmonary Disease 09/16/21 documented as of this encounter
--- OUTSIDE RECORDS SUMMARY | 2024-09-07 05:25 | XMS_ITS | Encounter Summary ---
Author Organization [facility] Address [address] [place] [address]. [place], [place] [address] [place] [address] Care Team Providers Care Apparel Machinery Instructor Name Role Phone Tracy Olivares MD Primary Care Provider [phone] Nathan Baig MD Unavailable [phone] Encounter Details Date Type Department Care Team (Late st Contact Info) Description 11/13/2021 Therapy [facility] [place], [place] [id number] Ly Collado, PT [place], [place] [id number] Social History Tobacco Use Types Packs/Day Years [...] Coronavirus/COVID-19? No / Unsure 10/23/2021 8:36 AM DIAMOND SIZER AND SORTER documented as of this encounter Progress Notes * Ly Collado, PT - 11/13/2021 3:41 PM CST PHYSICAL THERAPY DISCHARGE NOTE Keegan Amaya 1955 11/13/21 This patient was last seen in the clinic on 08/05/21. She attended 2 visits from her eval on 07/17/21. Patient failed to return for further visits. Please refer to last visit note for final status. DC from OPPT. Ly Collado, PT 3:42 PM OND SIZER AND SORTER documented in this encounter Plan of Treatment Upcoming Encounters Date Type Department Care Team (Late st Contact Info) Description 10/03/2024 11:00 AM DIAMOND SIZER AND SORTER Office Visit [facility] Medical Group Pulmonology Specialty Clinic - [address] [address] Nathan Baig MD [address] [address] 11/14/2024 10:20 AM DIAMOND SIZER AND SORTER Office Visit [facility] Medical [facility] Multispecialty Care - [place] [address] [address] [place] [address] Tracy Olivares MD [address] [place] [address] documented as of this encounter Visit Diagnoses Not on filedocumented in this encounter Additional Health Concerns Assessment Noted Time PHQ-9 Depression Total Score: 6 09/16/19 10:54 AM DIAMOND SIZER AND SORTER documented as of this encounter Care Teams Apparel Machinery Instructor Relationship Specialty Start Date End Date Tracy Olivares MD [address] [place] [address] PCP - General INTERNAL MEDICINE 01/02/21 Nathan Baig MD [address] [address] Consulting Physician Internal Medicine Pulmonary Disease 09/16/21 documented as of this encounter
--- OUTSIDE RECORDS SUMMARY | 2024-09-07 05:25 | XMS_ITS | Encounter Summary ---
Author Organization [facility] Address [address] [place] [address]. [place], [place] [address] [place] [address] Care Team Providers Care Differential Repairer Name Role Phone Tracy Olivares MD Primary Care Provider [phone] Nathan Baig MD Unavailable [phone] Encounter Details Date Type Department Care Team (Latest Contact Info) Description 01/05/2022 Travel Social History Tobacco Use Types Packs/Day [...] st Contact Info) Description 10/03/2024 11:00 AM COSMETIC SALES Office Visit [facility] Medical Group Pulmonology Specialty Clinic - [address] [place], [place] [address] Nahtan Baig MD 3 [facility] [address] [place] [address] 11/14/2024 10:20 AM COSMETIC SALES Office Visit [facility] Medical Group Multispecialty Care - [place] [address] [address] [place] [address] Tracy Olivares MD [facility] [address] documented as of this encounter Visit Diagnoses Not on filedocumented in this encounter Additional Health Concerns Assessment Noted Time PHQ-9 Depression Total Score: 5 01/06/20 10:48 AM CDT documented as of this encounter Care Teams Differential Repairer Relationship Specialty Start Date End Date Tracy Olivares MD [address] [place] [address] PCP - General INTERNAL MEDICINE 01/02/21 Nathan Baig MD 3 [facility] [address] [place] [address] Consulting Physician Internal Medicine Pulmonary Disease 09/16/21 documented as of this encounter
--- OUTSIDE RECORDS SUMMARY | 2024-09-07 05:25 | XMS_ITS | Encounter Summary ---
Author Organization [facility] Address [address] [place] [address]. [place], [place] [address] [place] [address] Care Team Providers Care Seniour Insight Manager Name Role Phone Tracy Olivares MD Primary Care Provider [phone] Nathan Baig MD Unavailable [phone] Reason for Visit * Reason Onset Date Comments Medication Request 12/23/2021 Encounter Details Date Type Department Care Team (Late st Contact Info) Description 12/23/2021 Telephone [facility] Multispecialty Care - [place] [address] [place] [address] [address] [place] [address] Tracy Olivares MD 118[address] [facility] [address] [place] [address] Medication Request Social History Tobacco [...] encounter Progress Notes * Sadi Byrd - 12/23/2021 1:56 PM CDT Called patient and informed her to take Advil 400 mg every 4 to 6 hours. She said she is not currently taking the gabapentin because she does not like the way it makes her feel. She has an appointment coming up on 01/05/22 and she will address her pain at that appointment. * Suzan Strauss NP - 12/23/2021 12:30 PM CDT Patient is currently taking gabapentin. I will not prescribe any narcotics without her being seen. She can take over the counter Advil 400 mg every 6 hours * Sadi Byrd - 12/23/2021 9:45 AM CDT Patient called and stated that she wanted some pain medicine. Patient stated that she has been in alot of pain lately. Please call patient to discuss. documented in this encounter Plan of Treatment Upcoming Encounters Date Type Department Care Team (Late st Contact Info) Description 10/03/2024 11:00 AM METAL MELTER Office Visit [facility] - [address] [address] Nathan Baig MD [address] [place] [address] 11/14/2024 10:20 AM METAL MELTER Office Visit [facility] Multispecialty Care - [place] [address] [address] [place] [address] Tracy Olivares MD [address] [place] [address] documented as of this encounter Visit Diagnoses Not on filedocumented in this encounter Additional Health Concerns Assessment Noted Time PHQ-9 Depression Total Score: 6 09/16/19 10:54 AM METAL MELTER documented as of this encounter Care Teams Seniour Insight Manager Relationship Specialty Start Date End Date Tracy Olivares MD [address] [address] PCP - General INTERNAL MEDICINE 01/02/21 Nathan Baig MD [address] [address] Consulting Physician Internal Medicine Pulmonary Disease 09/16/21 documented as of this encounter
--- OUTSIDE RECORDS SUMMARY | 2024-09-07 05:25 | XMS_ITS | Encounter Summary ---
Author Organization [facility] Address [address] [place] [address]. [place], [place] [address] [place] [address] Care Team Providers Care Material Scheduler Name Role Phone Tracy Olivares MD Primary Care Provider [phone] Nathan Baig MD Unavailable [phone] Encounter Details Date Type Department Care Team (Latest Contact Info) Description 04/23/2022 Travel Social History Tobacco Use Types Packs/Day [...] st Contact Info) Description 10/03/2024 11:00 AM PRIZE COORDINATOR Office Visit [facility] Pul[facility] Specialty Clinic - [address] [place], [place] [id number] Nathan Baig MD 3 [facility] [address] [place] [address] 11/14/2024 10:20 AM PRIZE COORDINATOR Office Visit [facility] Multispecialty Care - [place] [address] [address] [place] [address] Tracy Olivares MD Pending sale to [facility] [address] documented as of this encounter Visit Diagnoses Not on filedocumented in this encounter Additional Health Concerns Assessment Noted Time PHQ-9 Depression Total Score: 5 01/06/20 10:48 AM CDT documented as of this encounter Care Teams Material Scheduler Relationship Specialty Start Date End Date Tracy Olivares MD [address] [place] [address] PCP - General INTERNAL MEDICINE 01/02/21 Nathan Baig MD 3 [facility] [address] [place] [address] Consulting Physician Internal Medicine Pulmonary Disease 09/16/21 documented as of this encounter
--- OUTSIDE RECORDS SUMMARY | 2024-09-07 05:25 | XMS_ITS | Encounter Summary ---
Author Organization [facility] Address [address] [place] [address]. [place], [place] [address] [place] [address] Care Team Providers Care Room Service Food Server Name Role Phone Tracy Olivares MD Primary Care Provider [phone] Nathan Baig MD Unavailable [phone] Reason for Visit * Reason Comments Pathology (SCAN) Encounter Details Date Type Department Care Team ([facility] Contact Info) Description 01/12/2022 Scan HEALTH INFO SRVCS Scanned, Documents Pathology (SCAN) Social History Tobacco Use Types Packs/Day [...] Upcoming Encounters Date Type Department Care Team ([facility] Contact Info) Description 10/03/2024 11:00 AM SENIOR GIS ANALYST Office Visit [facility] Pul[facility]ology Specialty [facility] - [place] [address] [address] Nathan Baig MD 3 [facility] [address] [place] [address] 11/14/2024 10:20 AM SENIOR GIS ANALYST Office Visit [facility] Multispecialty Care - [place] [address] [address] [place] [address] Tracy Olivares MD [facility] [address] [address] documented as of this encounter Procedures Procedure Name Priority Date/Time Associated Diagnosis Comments PATHOLOGY GENERIC (SCAN ORDER) 01/12/2022 documented in this encounter Results * PATHOLOGY GENERIC (01/12/2022) 01/12/2022 Narrative 01/12/2022 Ordered by an unspecified provider. us Documents Scanned SCANNING Final Result documented in this encounter Visit Diagnoses Not on filedocumented in this encounter Additional Health Concerns Infection Onset Date Last Indicated Resolved Time COVID-19 Rule Out 01/19/2022 01/19/2022 01/19/2022 12:59 PM CDT Assessment Noted Time PHQ-9 Depression Total Score: 5 01/06/20 10:48 AM CDT documented as of this encounter Care Teams Room Service Food Server Relationship Specialty [place] [address] [place] [address] PCP - General INTERNAL MEDICINE 01/02/21 Nathan Baig MD 3 [facility] [address] [place] [address] Consulting Physician Internal Medicine Pulmonary Disease 09/16/21 documented as of this encounter
--- OUTSIDE RECORDS SUMMARY | 2024-09-07 05:25 | XMS_ITS | Encounter Summary ---
Author Organization [facility] Address [address] [place] [address]. [place], [place] [address] [place] [address] Care Team Providers Care Tinter Photograph Name Role Phone Tracy Olivares MD Primary Care Provider [phone] Nathan Baig MD Unavailable [phone] Reason for Visit * Reason Comments Sleep Study (SCAN) Encounter Details Date Type Department Care Team ([facility] Contact Info) Description 04/22/2022 Scan HEALTH INFO SRVCS Scanned, Documents Sleep Study (SCAN) Social History Tobacco Use [...] Upcoming Encounters Date Type Department Care Team ([facility] Contact Info) Description 10/03/2024 11:00 AM POWER SUPERINTENDENT Office Visit [facility] Medical [facility] Pulmonology Specialty Clinic - [address] [address] Nathan Baig MD [address] [address] 11/14/2024 10:20 AM POWER SUPERINTENDENT Office Visit [facility] Medical Group Multispecialty Care - [place] [address] [address] [place] [address] Tracy Olivares MD [address] [place] [address] documented as of this encounter Procedures Procedure Name Priority Date/Time Associated Diagnosis Comments SLEEP STUDY GENERIC (SCAN ORDER) 04/22/2022 documented in this encounter Results * SLEEP STUDY GENERIC (04/22/2022) 04/22/2022 Narrative 04/22/2022 Ordered by an unspecified provider. us Documents Scanned SCANNING Final Result documented in this encounter Visit Diagnoses Not on filedocumented in this encounter Additional Health Concerns Assessment Noted Time PHQ-9 Depression Total Score: 5 01/06/20 10:48 AM CDT documented as of this encounter Care Teams Tinter Photograph Relationship Specialty Start Date End Date Tracy Olivares MD [address] [place] [address] PCP - General INTERNAL MEDICINE 01/02/21 Nathan Baig MD [address] [address] Consulting Physician Internal Medicine Pulmonary Disease 09/16/21 documented as of this encounter
--- OUTSIDE RECORDS SUMMARY | 2024-09-07 05:25 | XMS_ITS | Encounter Summary ---
Author Organization [facility] Address [address] [place] [address]. [place], [place] [address] [place] [address] Care Team Providers Care Remelt Operator Name Role Phone Tracy Olivares MD Primary Care Provider [phone] Nathan Baig MD Unavailable [phone] Encounter Details Date Type Department Care Team (Latest Contact Info) Description 06/29/2022 Travel Social History Tobacco Use Types Packs/Day [...] suspected to have Coronavirus/COVID-19? No / Unsure 06/29/2022 10:24 AM CDT documented as of this encounter Plan of Treatment Upcoming Encounters Date Type Department Care Team (Late st Contact Info) Description 10/03/2024 11:00 AM DOG CONTROL OFFICER Office Visit [facility] Medical Group Pulmonology Specialty Clinic - [address] [place], [place] [address] Nathan Baig MD 3 [facility] [address] [place] [address] 11/14/2024 10:20 AM DOG CONTROL OFFICER Office Visit [facility] Medical Group Multispecialty Care - [place] [address] [address] [place] [address] Tracy Olivares MD [facility] [address] documented as of this encounter Visit Diagnoses Not on filedocumented in this encounter Additional Health Concerns Assessment Noted Time PHQ-9 Depression Total Score: 5 01/06/20 10:48 AM CDT documented as of this encounter Care Teams Remelt Operator Relationship Specialty Start Date End Date Tracy Olivares MD [address] [place] [address] PCP - General INTERNAL MEDICINE 01/02/21 Nathan Baig MD 3 [facility] [address] [place] [address] Consulting Physician Internal Medicine Pulmonary Disease 09/16/21 documented as of this encounter
--- OUTSIDE RECORDS SUMMARY | 2024-09-07 05:25 | XMS_ITS | Encounter Summary ---
Author Organization [facility] Address [address] [place] [address]. [place], [place] [address] [place] [address] Care Team Providers Care Confectionery Laboratory Manager Name Role Phone Tracy Olivares MD Primary Care Provider [phone] Nathan Baig MD Unavailable [phone] Encounter Details Date Type Department Care Team (Late st Contact Info) Description 05/20/2022 - 05/20/2022 11:59 PM CDT Hospital Encounter [facility] [address] [address] Sid Mae MD Discharge Disposition: Home or Self Care (Routine [...] albuterol sulfate HFA 108 (90 Base) MCG/ACT inhalerIndications:S easonal allergic rhinitis due to pollen Inhale 2 puffs into the lungs every 4 (four) hours as needed. 18 g 5 01/05/2022 2 atorvastatin (LIPITOR) 20 MG tabletIndications:Mi xed hyperlipidemia Take 1 tablet (20 mg total) by mouth nightly at bedtime. at bedtime 90 tablet 1 04/02/2022 2 AZELASTINE 137 MCG/SPRAY nasal sprayIndications:Sea cruz allergic rhinitis due to pollen Please specify directions, refills and quantity 30 mL 04/22/2022 4 Cetirizine HCl (ZYRTEC ALLERGY) 10 MG CapIndications:Acute pharyngitis, unspecified etiology Take 10 mg by mouth daily. 30 capsule 05/20/2021 3 ciclopirox (PENLAC) 8 % solution 04/28/2022 3 diphenhydrAMINE-zinc (BENADRYL EXTRA STRENGTH) 2-0.1 % Cream creamIndications:Pru ritus Use twice daily on skin to help with itching. 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 90 tablet 2 01/05/2022 2 fluticasone propionate (FLONASE) 50 MCG/ACT nasal sprayIndications:Sea cruz allergic rhinitis due to pollen 2 sprays by Nasal route daily. 16 g 5 01/19/2022 4 gabapentin 100 MG capsuleIndications:I diopathic peripheral neuropathy Take 2 capsules (200 mg total) by mouth 3 (three) times daily. 180 capsule 1 03/02/2022 2 losartan-hydroCHLORO thiazide 100-12.5 MG TabIndications:Essen tial hypertension Take 1 tablet by mouth daily. 90 tablet 3 01/05/2022 2 meclizine 12.5 MG tabletIndications:Ve rtigo Take 1 tablet (12.5 mg total) by mouth nightly as needed. 20 tablet 09/01/2021 4 metoclopramide 5 MG tabletIndications:PU D (peptic ulcer disease) Take 1 tablet (5 mg total) by mouth 3 (three) times a day. 20 tablet 08/17/2021 2 OMEPRAZOLE 20 MG capsuleIndications:G astroesophageal reflux disease without esophagitis TAKE 2 CAPSULES BY MOUTH EVERY DAY 180 capsule 1 12/06/2021 2 ondansetron 4 MG tabletIndications:Ga stroesophageal reflux disease without esophagitis Take 1 tablet (4 mg total) by mouth every 8 (eight) hours as needed for Nausea. 20 tablet 09/10/2021 2 phentermine (ADIPEX-P) 37.5 MG tabletIndications:Cl ass 3 severe obesity due to excess calories without serious comorbidity with body mass index (BMI) of 50.0 to 59.9 in adult ([facility] HHS/HCC) Take 1 tablet (37.5 mg total) by mouth every other day for 30 days. 15 tablet 05/13/2022 2 SITagliptin (JANUVIA) 100 MG tabletIndications:Pr ediabetes Take 1 tablet (100 mg total) by mouth daily. 90 tablet 2 04/02/2022 2 tiZANidine 4 MG tabletIndications:Ch ronic bilateral low back pain with bilateral sciatica Take 0.5 tablets (2 mg total) by mouth nightly at bedtime. at bedtime 90 tablet 1 03/02/2022 3 traMADol (ULTRAM) 50 MG tabletIndications:Ch ronic Pain Take 1 tablet (50 mg total) by mouth 2 (two) times daily as needed for Pain. Indications: Chronic Pain 60 tablet 05/03/2022 3 TRELEGY 100-62.5-25 MCG/INH AEROSOL POWDER, BREATH ACTIVATEDIndications :Pulmonary emphysema, unspecified emphysema type ([facility] HHS/HCC) Inhale 1 puff into the lungs daily. Rinse and spit after use 3 each 3 01/05/2022 2 Vitamin D, Cholecalciferol, 50 MCG (1999 [place]) CapIndications:Vitam in D deficiency Take 1,000 Units by mouth daily. 30 capsule 03/03/2021 4 documented as of this encounter Plan of Treatment Upcoming Encounters Date Type Department Care Team (Late st Contact Info) Description 10/03/2024 11:00 AM SEVERITY OF ILLNESS COORDINATOR Office Visit [facility] Medical [facility] Pulmonology Specialty Clinic - [address] [address] Nathan Baig MD 3 [facility] [address] [place] [address] 11/14/2024 10:20 AM SEVERITY OF ILLNESS COORDINATOR Office Visit [facility] Multispecialty Care - [place] [address] [address] [place] [address] Tracy Olivares MD [address] [place] [address] documented as of this encounter Visit Diagnoses Not on filedocumented in this encounter Additional Health Concerns Infection Onset Date Last Indicated Resolved Time COVID-19 Rule Out 05/20/2022 05/20/2022 05/20/2022 10:50 AM CDT COVID-19 Rule Out 05/20/2022 05/20/2022 05/21/2022 1:20 AM CDT Assessment Noted Time PHQ-9 Depression Total Score: 5 01/06/20 10:48 AM CDT documented as of this encounter Care Teams Confectionery Laboratory Manager Relationship Specialty Start Date End Date Tracy Olivares MD [address] [place] [address] PCP - General INTERNAL MEDICINE 01/02/21 Nathan Baig MD 3 [facility] [address] [place] [address] Consulting Physician Internal Medicine Pulmonary Disease 09/16/21 documented as of this encounter
--- OUTSIDE RECORDS SUMMARY | 2024-09-07 05:25 | XMS_ITS | Encounter Summary ---
Author Organization [facility] Address [address] [place] [address]. [place] [id number] [place] [address] Care Team Providers Care Filling Station Laborer Name Role Phone Tracy Olivares MD Primary Care Provider [phone] Nathan Baig MD Unavailable [phone] Reason for Visit * Reason Comments Acute Note patient is having ea r aches and fever, cough,sneezing,nasal drainage. Encounter Details Date Type Department Care Team (Latest Contact Info) Description 01/19/2022 11:00 AM CDT Office Visit [facility] - [place] [address] [address] [place] [address] Tracy Olivares MD [address] [place] [address] [address] [place], [place] [id number] Acute Note (patient is having ear aches and fever, cough,sneezing,nasal drainage.) Social History Tobacco Use Types Packs/Day Years [...] Sign Reading Time Taken Comments Blood Pressure 130/71 01/19/2022 10:48 AM CDT Pulse 87 01/19/2022 10:48 AM CDT Temperature 37.3 ??C (99.1 ??F) 01/19/2022 1 0:48 AM CDT Respiratory Rate 18 01/19/2022 10:4 8 AM CDT Oxygen Saturation 99% 01/19/2022 10: 48 AM CDT Inhaled Oxygen Concentration - - Weight 129.2 kg (284 lb 12.8 oz) 2021 10:48 AM CDT Height 161.3 cm (5' 3.5 ) 01/19/2022 10 :48 AM CDT Body Mass Index 49.66 01/19/2022 10:48 AM CDT documented in this encounter Patient Instructions * Patient Instructions* Tracy Olivares MD - 01/19/2022 11:00 AM CDT Images from the original note were not included. Follow up if not improving. Patient Education Patient Education COVID-19 Discharge Instructions About this topic Coronavirus disease 2019 is also known as COVID-19. It is caused by a virus called SARS-associated coronavirus (SARS-CoV-2). The signs of COVID-19 most often start 4 to 5 days after you have been infected. In some people, itcan take up to 2 weeks to show signs. Others never show signs of the infection. You may have a cough, fever, shaking chills, and it may be hard to breathe. You may be very tired, have muscle aches, aheadache, or sore throat. Some people have an upset stomach or loose stools. Others lose their sense of smell or taste. You may not have these signs all the time and they may come and go while you are sick. The virus spreads easily through droplets when you talk, sneeze, or cough. You can pass the virus to others when you are talking close together, singing, hugging, sharing food, or shaking hands. Doctors believe the germs also survive on surfaces like tables, door handles, and telephones. However, this is not a common way that COVID-19 spreads. You can also spread the infection even if you don???thave any symptoms. This is why getting a vaccine is one of the best ways to keep you healthy and slow the spread of the virus. People age 12 and older should also get a booster shot to give them extra protection. Some people have a mild case of COVID-19 and are able to stay at home and away from others until they feel better. Others may need to be in the hospital if they are very sick. Some people with COVID-19 can have some symptoms for weeks or months. People with COVID-19 must isolate themselves. You canstart to be around others when your doctor says it is safe to do so. What care is needed at home? ?? Ask your doctor what you need to do when you go home. Make sure you ask questions if you do not understand what the doctor says. ?? If the doctor prescribed medicines to treat COVID-19, be sure to follow all instructions for taking them. ?? Drink lots of water, juice, or broth to replace fluids lost from a fever. ?? You may use cool mist humidifiers to help ease congestion and coughing. ?? Use 2 to 3 pillows to prop yourself up when you lie down to make it easier to breathe and sleep. ?? Do not smoke and do not drink beer, wine, and mixed drinks (alcohol). ?? If you have not had the COVID-19 vaccine and booster, get one after your infection has resolved.This will help lower the chance of passing the infection to others. ?? To lower the chance of passing the infection to others: ? Stay home while you recover. Only go out if you need to get medical care. ? At home, try to stay in a separate room, away from other people and animals. This is called self-isolation. Use a separate bathroom if possible. ? Wear a mask over your mouth and nose if you are around others. Respirator masks like N95 and LX37api filter out even very tiny air particles. Whatever type of mask you use, it???s important that it fit snugly over your face with no gaps. You can improve the fit by using a mask with an adjustablenose wire, adjusting or knotting the ear loops to make it tighter, or wearing a cloth mask on top of a disposable mask. If other people have to be in the same room or vehicle with you, they should wear a mask also. ? Practice social distancing. Try to stay at least 6 feet (about 2 meters) from other people. ?? Wash your hands often. Avoid touching your face, especially your mouth, nose, and eyes. ?? Avoid sharing personal items with other people in the household ?? Do not make food for others. ?? Continue to self-isolate until your doctor or nurse tells you it's OK to return to your normal activities. When you can stop self-isolation will depend on how long it has been since you had symptoms, and in some cases, whether you have had a negative test (showing that the virus is no longer in your body). What follow-up care is needed? ?? Your doctor may ask you to make visits to the office to check on your progress. Be sure to keep these visits. Make sure you wear a mask at these visits. ?? If you can, tell the staff you have COVID-19 ahead of time so they can take extra care to stop the disease from spreading. ?? It may take a few weeks before your health returns to normal. What drugs may be needed? The doctor may order drugs to: ?? Help with breathing ?? Help with fever ?? Help with swelling in your airways and lungs ?? Control coughing ?? Ease a sore throat ?? Help a runny or stuffy nose Will physical activity be limited? You may have to limit your physical activity. Talk to your doctor about the right amount of activity for you. If you have been very sick with COVID-19, it can take some time to get your strength back. Will there be any other care needed? Doctors do not know how long you can pass the virus on to others after you are sick. This is why itis important to stay in a separate room, if possible, when you are sick. For now, doctors are giving general guidelines for you to follow after you have been sick. Before you go around other people, you should: ?? Be fever free for 24 hours without taking any drugs to lower the fever ?? Have no symptoms of cough or shortness of breath ?? Wait at least 10 days after first having symptoms or your first positive test, and you need to be symptom free as above. Some experts suggest waiting 20 days if you have had a more severe infection. Talk with your doctor about getting a COVID-19 vaccine or booster. What problems could happen? ?? Fluid loss. This is dehydration. ?? Short-term or long-term lung damage ?? Heart problems ?? When do I need to call the doctor? ?? You are having so much trouble breathing that you can only say one or two words at a time. ?? You need to sit upright at all times to be able to breathe and/or cannot lie down. ?? You are very confused or cannot stay awake. ?? Your lips or skin start to turn blue or palumbo. ?? You think you might be having a medical emergency. Some examples of medical emergencies are: ? Severe chest pain. ? Not able to speak or move normally. ?? You have trouble breathing when talking or sitting still. ?? You have new shortness of breath. ?? You become weak or dizzy. ?? You have very dark urine or do not pass urine for more than 8 hours. ?? You have new or worsening COVID-19 symptoms like: ? Fever ? Cough ? Feeling very tired ? Shaking chills ? Headache ? Trouble swallowing ? Throwing up ? Loose stools ? Reddish purple spots on your fingers or toes Teach Back: Helping You Understand The Teach Back Method helps you understand the information we are giving you. After you talk with the staff, tell them in your own words what you learned. This helps to make sure the staff has described each thing clearly. It also helps to explain things that may have been confusing. Before going home, make sure you can do these: ?? I can tell you about my condition. ?? I can tell you what may help ease my breathing. ?? I can tell you what I can do to help avoid passing the infection to others. ?? I can tell you what I will do if I have trouble breathing; feel sleepy or confused; or my fingertips, fingernails, skin, or lips are blue. Where can I learn more? Centers for Disease Control and Prevention https://www.cdc.gov/coronavirus/2019-ncov/about/index.html Centers for Disease Control and Prevention https://www.cdc.gov/coronavirus/2019-ncov/hcp/yjwvvfbgnwh-to-bwvi-patients.html World Health Organization https://www.who.int/news-room/q-a-detail/r-y-cyroyfkawacut Last Reviewed Date 2021-10-16 Consumer Information Use and Disclaimer This generalized [...] or approved for treating a specific patient. [employer]. and its affiliates disclaim any warranty or liability relating to this information or the use thereof. The use of this information is governed by the Terms of Use, available at https://www.[employer].com/en/know/pawbgqvt-pijjkzpiggcvy-tompx Copyright Copyright ?? 2021 [employer]. and its affiliates and/or licensors. All rights reserved. documented in this encounter Progress Notes * Tracy Olivares MD - 01/19/2022 11:00 AM CDTSummary: Acute visit notes Images from the original note were not included. Internal Medicine Outpatient Progress Note CC: Acute Note (patient is having ear aches and fever, cough,sneezing,nasal drainage.) HPI: Keegan Amaya is a 66-year-old -Finnish female who presents for an acute visit for concerns about ongoing nasal congestion, sinus discomfort and drainage and fullness in both the ears. Patient tells me she recently was outdoors most of the time prior to her symptoms. Her symptoms were exacerbated after she attempted to texturize her hair. Started to have congestion and headache and sinusdiscomfort as well as fullness in the ear. Experienced mild spinning sensation with vertigo symptoms which has since resolved. Reports a recent temperature of 100.4 ??F at home. She has since been Tylenol and vitamin C to help with her symptoms. Notes symptoms have not improved. She recently pickedup her prior prescription for Augmentin prescribed 01/05/2022. She has since taking 3 tablets of herAugmentin currently with no improvement. No cough or shortness of breath. Of note her hairdresser who did her texturizing recently tested positive for covid about 3 weeks ago. Problem List Patient Active Problem List Diagnosis [...] Outpatient Medications Marked as Taking for the 01/19/22 encounter (Office Visit) with Tracy Olivares MD [...] Nasal route daily. 16 g 5 ??? fluticasone-salmeterol (WIXELA INHUB) 250-50 MCG/ACT inhaler [...] nightly as needed. 20 tablet 0 ??? methylPREDNISolone, KAREN, 4 MG tablet 6 TABLETS ON DAY ONE, 5 TABLETS DAY TWO, 4 TABLETS DAY THREE, 3 TABLETS DAY FOUR, 2 TABLETS DAY FIVE, AND 1 TABLET DAY SIX 1 each 0 ??? metoclopramide 5 MG tablet Take 1 tablet (5 mg total) by mouth 3 (three) times a day. 20 tablet0 ??? molnupiravir 200 mg capsule Take 4 capsules (800 mg total) by mouth 2 (two) times daily for 5 days. 40 capsule 0 ??? OMEPRAZOLE 20 MG capsule TAKE 2 CAPSULES BY MOUTH EVERY DAY 180 capsule 1 ??? ondansetron 4 MG tablet Take 1 tablet (4 mg total) by mouth every 8 (eight) hours as needed forNausea. 20 tablet 0 ??? ONETOUCH VERIO test strip ??? pantoprazole EC 40 MG tablet Take 40 mg by mouth every morning. ??? phentermine 37.5 MG tablet Take 1 [...] Musculoskeletal: Negative. Skin: Negative. Objective: Filed Vitals: 01/19/22 1048 BP: 130/71 Pulse: 87 Resp: 18 Temp: 99.1 ??F (37.3 ??C) TempSrc: Temporal SpO2: 99% Weight: 129.2 kg (284 lb 12.8 oz) Height: 5' 3.5 (1.613 m) Body mass index is 49.66 kg/m??. General alert, cooperative, no distress, not acutely ill looking HEENT EOM's intact. Oral mucosa normal. Nasal [...] Encounter Diagnose(s) ICD-10-CM ICD-9-CM SNOMED CT(R) 1. Upper respiratory tract infection, unspecified type J06.9 465.9 UPPER RESPIRATORY INFECTION CORONAVIRUS (COVID-19) INFLUENZA A & B ANTIGEN IA PANEL RAPID STREP A methylPREDNISolone, KAREN, 4 MG tablet CORONAVIRUS (COVID 19) PCR ([facility]) CULTURE STREP A (MG/SJS/SMD Only) CULTURE STREP A (MG/SJS/SMD Only) CORONAVIRUS (COVID 19) PCR ([facility]) 2. Seasonal allergic rhinitis due to pollen J30.1 477.0 ALLERGIC RHINITIS DUE TO POLLEN Azelastine HCl 0.15 % Solution fluticasone propionate (FLONASE) 50 MCG/ACT nasal spray CORONAVIRUS (COVID 19) PCR ([facility]) CULTURE STREP A (MG/SJS/SMD Only) CULTURE STREP A (MG/SJS/SMD Only) CORONAVIRUS (COVID 19) PCR ([facility]) 3. COVID-19 virus infection U07.1 079.89 COVID-19 CORONAVIRUS (COVID 19) PCR ([facility]) CORONAVIRUS (COVID 19) PCR ([facility]) molnupiravir 200 mg capsule 1. Upper respiratory tract infection, unspecified type - mild low grade fever otherwise stable vital signs - likely secondary to Covid 19 infection - management as below - maintain hydration - okay to continue with mucinex and tylenol as needed - CORONAVIRUS (COVID-19) INFLUENZA A & B ANTIGEN IA PANEL - RAPID STREP A - methylPREDNISolone, KAREN, 4 MG tablet; 6 TABLETS ON DAY ONE, 5 TABLETS DAY TWO, 4 TABLETS DAY THREE, 3 TABLETS DAY FOUR, 2 TABLETS DAY FIVE, AND 1 TABLET DAY SIX Dispense: 1 each; Refill: 0 - CORONAVIRUS (COVID 19) PCR ([facility]); Future - CULTURE STREP A (MG/SJS/SMD Only); Future - CULTURE STREP A (MG/SJS/SMD Only) - CORONAVIRUS (COVID 19) PCR ([facility]) 2. Seasonal allergic rhinitis due to pollen - Azelastine HCl 0.15 % Solution; azelastine 205.5 mcg (0.15 %) nasal spray SPRAY 2 SPRAY(S) TWICE A DAY BY INTRANASAL ROUTE FOR 30 DAYS. Dispense: 30 mL; Refill: 5 - fluticasone propionate (FLONASE) 50 MCG/ACT nasal spray; 2 sprays by Nasal route daily. Dispense:16 g; Refill: 5 - CORONAVIRUS (COVID 19) PCR ([facility]); Future - CULTURE STREP A (MG/SJS/SMD Only); Future - CULTURE STREP A (MG/SJS/SMD Only) - CORONAVIRUS (COVID 19) PCR ([facility]) 3. COVID-19 virus infection - CORONAVIRUS (COVID 19) PCR ([facility]); Future - CORONAVIRUS (COVID 19) PCR ([facility]) - molnupiravir 200 mg capsule; Take 4 capsules (800 mg total) by mouth 2 (two) times daily for 5 days. Dispense: 40 capsule; Refill: 0 - continue with steroid karen - Patient with URI symptoms and concern for COVID-19. Discussed current IDPH guidelines for testingand treatment in detail. Patient DOES/ DOES NOT: does meet current criteria for testing per IDPH instruction. Recommended Tylenol(acetaminophen) as main fever sound person and comfort per WHO recommendations. Discussed symptom care of increasing plain water intake, rest, and good handwashing. Patient advised to call PCP if symptoms do not improve, new fever after 10 days or symptoms longer than 14 days. ER precautions given in detail and patient agrees to follow-up if symptoms worsen. Advised to call ahead if ER treatment is needed. Discussed current self-quarantine recommendations in detail for the patient and current CDC and IDPH guidelines. Counseling given: Yes Comment: counseled by Dr [...] was at least in part performed using Dragon speak and there may be some inherent flaws in this corporate travel manager due to the nature of this program. Tracy Olivares MD Internal Medicine [facility], [facility]. documented in this encounter Plan of Treatment Upcoming Encounters Date Type Department Care Team (Late st Contact Info) Description 10/03/2024 11:00 AM INDUSTRIAL TRACTOR DRIVER Office Visit [facility] Medical [facility] - [address] [address] Nathan Baig MD [address] [place] [address] 11/14/2024 10:20 AM INDUSTRIAL TRACTOR DRIVER Office Visit [facility] Medical [facility] - [place] [address] [address] [place] [address] Tracy Olivares MD [address] [address] documented as of this encounter Procedures Procedure Name Priority Date/Time Associated Diagnosis Comments CULTURE STREP A Routine 01/19/2022 11:19 AM CDT Upper respiratory tract infection, unspecified type Seasonal allergic rhinitis due to pollen CORONAVIRUS (COVID 19) PCR Routine 01/19/2022 11:19 AM CDT Upper respiratory tract infection, unspecified type Seasonal allergic rhinitis due to pollen COVID-19 virus infection CORONAVIRUS (COVID-19) INFLUENZA A & B ANTIGEN IA PANEL Routine 01/19/2022 Upper respiratory tract infection, unspecified type RAPID STREP A Routine 01/19/2022 Upper respiratory tract infection, unspecified type documented in this encounter Results * CULTURE STREP A (MG/SJS/SMD Only) (01/19/2022 11:19 AM CDT) THROAT CULTURE GROUP A STREP [facility] Comment: ??CULTURE, THROAT, SPECIAL W/GRP A STREP SUSCEPT. ?Micro Number: ?[id number] ??Test Status: ? Final ??Specimen Source: ?? Not given ??Specimen Quality: ??Adequate ??Result: ?No oropharyngeal pathogens recovered. STRUCTURE OF ANTERIOR PORTION OF NECK / Unknown 01/19/2022 11:19 AM CDT 01/20/2022 12:43 AM CDT Tracy Olivares MD MICROBIOLOGY - GENERAL ORDERABLE S Final Result [facility] [address] [place] [address] * (ABNORMAL) CORONAVIRUS (COVID 19) PCR ([facility]) (01/19/2022 11:19 AM CDT) SPEC DESCRIPTION NASAL 01/20/20 11:19 AM CDT [facility] CORONAVIRUS SARS COV 2 PCR (RESP) POSITIVE(AA ) NEGATIVE 01/20/2022 4:34 AM CDT [facility] Comment: THE SARS-CoV-2 TEST HAS BEEN AUTHORIZED BY THE FDA UNDER AN EUA FOR USE BY AUTHORIZED LABORATORIES. PERFORMED BY NUCLEIC ACID AMPLIFICATION PCR FIRST TEST NO 01/19/2022 11:19 AM CDT [facility] EMPLOYED IN HEALTHCARE NO 01/19/2022 11:19 AM CDT [facility] SYMPTOMATIC DEFINED BY CDC YES 01/19/2022 11:19 AM CDT [facility] DATE OF SYMPTOM ONSET 2022011801/19/2022 11:19 AM CDT [facility] HOSPITALIZATION STATUS NO 01/19/2022 11:19 AM CDT [facility] PATIENT IN ICU NO 01/19/2022 11:19 AM CDT [facility] RESIDENT OF [facility] NO 01/19/2022 11:19 AM CDT [facility] NASOPHARYNGEAL SWAB / Unknown 01/19/2022 11:19 AM CDT us Tracy Olivares MD MICROBIOLOGY - GENERAL ORDERABLE S Final Result [facility] [address] [place] [address], * RAPID STREP A (01/19/2022) RAPID STREP TEST NEGATIVE NEGATIVE [address], [place] Internal Control: VALID VALID [address], [place] STRUCTURE OF ANTERIOR PORTION OF NECK / Unknown 01/19/2022 us Tracy Olivares MD MICROBIOLOGY - GENERAL ORDERABLE S Final Result [facility], [facility] [address] [place] [id number], * CORONAVIRUS (COVID-19) INFLUENZA A & B ANTIGEN IA PANEL (01/19/2022) CORONAVIRUS ANTIGEN IA POSITIVE NEGATIVE [facility], [place] INFLUENZA A NEGATIVE NEGATIVE [facility], [facility] INFLU[facility] B NEGATIVE NEGATIVE [address], [place] Internal Control: VALID VALID [address], [place] NASAL STRUCTURE / Unknown 01/19/2022 us Tracy Olivares MD MICROBIOLOGY - GENERAL ORDERABLE S Final Result [facility], [place] [address] [place] [address] [address] [place] [address], documented in this encounter Visit Diagnoses Diagnosis Upper respiratory tract infection, unspecified type- Primary Seasonal allergic rhinitis due to pollen COVID-19 virus infection documented in this encounter Additional Health Concerns Infection Onset Date Last Indicated Resolved Time COVID-19 Rule Out 01/19/2022 01/19/2022 01/19/2022 12:59 PM CDT Assessment Noted Time PHQ-9 Depression Total Score: 5 01/06/20 10:48 AM CDT documented as of this encounter Care Teams Filling Station Laborer Relationship Specialty Start Date End Date Tracy Olivares MD [address] [facility] [address] [place] [address] PCP - General INTERNAL MEDICINE 01/02/21 Nathan Baig MD [address] [address] Consulting Physician Internal Medicine Pulmonary Disease 09/16/21 documented as of this encounter
--- OUTSIDE RECORDS SUMMARY | 2024-09-07 05:25 | XMS_ITS | Encounter Summary ---
Author Organization [facility] Address [address] [place] [address]. [place], [place] [address] [place] [address] Care Team Providers Care Corsage Maker Name Role Phone Tracy Olivares MD Primary Care Provider [phone] Nathan Baig MD Unavailable [phone] Encounter Details Date Type Department Care Team (Latest Contact Info) Description 05/20/2022 Travel Social History Tobacco Use Types Packs/Day [...] st Contact Info) Description 10/03/2024 11:00 AM CONTACT CENTER REP Office Visit [facility] - [address] [place], [place] [id number] Nathan Baig MD 3 [facility] [address] [place] [address] 11/14/2024 10:20 AM CONTACT CENTER REP Office Visit [facility] - [place] [address] [address] [place] [address] Tracy Olivares MD [address] [facility] [address] [place] [address] documented as of this encounter Visit Diagnoses Not on filedocumented in this encounter Additional Health Concerns Infection Onset Date Last Indicated Resolved Time COVID-19 Rule Out 05/20/2022 05/20/2022 05/20/2022 10:50 AM CDT COVID-19 Rule Out 05/20/2022 05/20/2022 05/21/2022 1:20 AM CDT Assessment Noted Time PHQ-9 Depression Total Score: 5 01/06/20 10:48 AM CDT documented as of this encounter Care Teams Corsage Maker Relationship Specialty Start [place] [address] [place] [address] PCP - General INTERNAL MEDICINE 01/02/21 Nathan Baig MD 3 [facility] [address] [place] [address] Consulting Physician Internal Medicine Pulmonary Disease 09/16/21 documented as of this encounter
--- OUTSIDE RECORDS SUMMARY | 2024-09-07 05:26 | XMS_ITS | Encounter Summary ---
Author Organization [facility] Address [address] [place] [address]. [place], [place] [address] [place] [address] Care Team Providers Care Balloon Design Printer Name Role Phone Tracy Olivares MD Primary Care Provider [phone] Nathan Baig MD Unavailable [phone] Reason for Visit * Reason Comments Obstructive Sleep Apnea CPAP IV * Consultation (Routine) - Closed Specialty Diagnoses / Procedures Referred By Contact Referred To Contact [facility]EP [facility] Diagnoses [place] [address] [place] [address] Phone: tel: fax: [facility] [address] [address] Phone: tel: fax: Referral ID Status Reason Start Date Expiration Date Visits Re quested Visits Authorized [id number] Closed 05/16/2021 11/12/2021 6 6 Encounter Details Date Type Department Care Team (Late st Contact Info) Description 05/22/2021 9:20 AM CDT Office Visit [facility] - [address] [address] Nathan Baig MD [address] [place] [address] Obstructive Sleep Apnea (CPAP IV) Social History Tobacco Use Types Packs/Day Years Used Date Smoking Tobacco: Former Cigarettes 1.5 30 0 09/12/1954 - 09/12/1984 Smokeless Tobacco: Never Tobacco Cessation:Counseling Given: Yes Comments:by Dr Olivares Alcohol Use Standard Drinks/Week Comments [...] Taken Comments Blood Pressure - - Pulse 74 05/22/2021 9:18 AM CDT Temperature 35.7 ??C (96.3 ??F) 05/22/2021 9:18 AM CD T Respiratory Rate 16 05/22/2021 9:18 AM CDT Oxygen Saturation 96% 05/22/2021 9:18 AM CDT Inhaled Oxygen Concentration - - Weight 129.3 kg (285 lb) 05/22/2021 9:18 AM CDT Height 161.3 cm (5' 3.5 ) 05/22/2021 9:18 AM CDT Body Mass Index 49.69 05/22/2021 9:18 AM CDT documented in this encounter Patient Instructions * Patient Instructions* Nathan Baig MD - 05/22/2021 9:20 AM CDT 1. Continue using CPAP every single night 2. We will send in orders to replace her nasal pillows 3. Use distilled water in the machine 4. Change of the mask, straps, tubing every 3 to 6 months 5. We will get a breathing test with a pulmonary function test to see if you do have COPD 6. Until then continue taking Trelegy 7. Work on weight loss, diet, exercise 8. Plan to follow-up with me in 4 to 5 months documented in this encounter Progress Notes * Lynette Tinoco MA - 05/22/2021 9:20 AM CDTAddended by: LYNETTE TINOCO on: 03/04/2022 01:18 PM Modules accepted: Orders * Nathan Baig MD - 05/22/2021 9:20 AM CDT [facility] PUL[facility] History Chief Complaint Patient presents with ??? Obstructive Sleep Apnea CPAP IV Referring provider: Tracy Olivares MD Keegan Amaya is a 65-year-old female with a past medical history of [...] obstructive pulmonary disease) (CMS/HCC) ??? Depression ??? GERD (gastroesophageal reflux disease) ??? Glaucoma [...] Smokeless tobacco: Never Used ??? Tobacco comment: by Dr Olivares Substance Use Topics ??? [...] total) by mouth 2 (two) times daily. 14 tablet 0 ??? aspirin 81 MG tablet ??? Azelastine HCl 0.15 % Solution azelastine 205.5 mcg (0.15 %) nasal spray SPRAY 2 SPRAY(S) TWICE A DAY BY INTRANASAL ROUTE FOR 30 DAYS. ??? Cetirizine HCl (ZYRTEC ALLERGY) 10 MG Cap Take 10 mg by mouth daily. 30 capsule ??? Dextromethorphan HBr 10 MG/15ML Syrup Take 15 ml three a day for 7 days. 1260 mL ??? gabapentin 100 MG capsule Take 2 capsules (200 mg total) by mouth 3 (three) times daily. 90 capsule 3 ??? Losartan Potassium-HCTZ 100-12.5 MG Tab Take 1 tablet by mouth daily. 90 tablet 1 ??? methylPREDNISolone, KAREN, 4 MG tablet 6 TABLETS ON DAY ONE, 5 TABLETS DAY TWO, 4 TABLETS DAY THREE, 3 TABLETS DAY FOUR, 2 TABLETS DAY FIVE, AND 1 TABLET DAY SIX 1 each 0 ??? omeprazole 20 MG capsule Take 20 mg by mouth daily. ??? rOPINIRole 0.5 MG tablet Take 0.5 tablets (0.25 mg total) by mouth nightly at bedtime. 30 tablet 1 ??? TIZANIDINE 4 MG tablet TAKE 1/2 TABLET AT BEDTIME 45 tablet 1 ??? TRELEGY 100-62.5-25 MCG/INH AEROSOL POWDER, BREATH ACTIVATED Inhale 1 puff into the lungs daily. 60 each 2 ??? Vitamin D, Cholecalciferol, 50 MCG (2000 UT) Cap Take 1,000 Units by mouth daily. 30 capsule ??? escitalopram 10 MG tablet Take 1 tablet (10 mg total) by mouth daily. 90 tablet 1 ??? ONETOUCH VERIO test strip No current facility-administered medications for this visit. Allergies Allergen Reactions ??? Propoxyphene Unknown Immunization History Administered Date(s) Administered ? ? Flucelvax Adult - >Age4 (Prefilled Syringe) 06/05/2019 ??? Influenza 06/12/2013 ??? Influenza Adult (Generic) 06/12/2013, 06/07/2014, 06/10/2015, 05/17/2016, 05/20/2017, 06/05/2018, 05/28/2020, 07/01/2020 ??? PFIZER COVID-19, MRNA, LNP-S, PF, 30 MCG/0.3 ML DOSE 12/09/2020, 12/30/2020 ??? Pneumococcal (Pneumovax 23) 05/01/2016, 05/17/2016, 03/03/2021 Review of Systems Constitutional: Negative for chills, [...] and suicidal ideas. Physical Exam Filed Vitals: 05/22/21 0918 Pulse: 74 Resp: 16 Temp: 96.3 ??F (35.7 ??C) TempSrc: Temporal SpO2: 96% Weight: 129.3 kg (285 lb) Height: 5' 3.5 (1.613 m) Body mass index is 49.69 kg/m??. Physical Exam: General: Alert, pleasant, in [...] visible tattoos Pertinent Labs Reviewed CPAP compliance 73% use over the last 90 days. Average time 4 hours and 56 minutes. Set pressure 9 cm H2O. AHI 1.9/h Assessment 1. Obstructive sleep apnea on CPAP [...] confirm whether or not she does have COPD -Okay to continue Trelegy 100/62.5/25 mcg 1 puff daily, rinse and spit after Return in about 5 months (around 10/22/2021). Nathan Baig MD I spent over 46 minutes today reviewing the patient's medical record, obtaining history, performingan exam, ordering medications, tests, and/or procedures, documenting in the medical record and counseling and educating the patient/family/caregiver. documented in this encounter Plan of Treatment Upcoming Encounters Date Type Department Care Team (Late st Contact Info) Description 10/03/2024 11:00 AM CYTOGENETICS TECHNOLOGIST Office Visit [facility] - [address] [address] Natahn Baig MD [address] [address] 11/14/2024 10:20 AM CYTOGENETICS TECHNOLOGIST Office Visit [facility] - [place] [address] [address] [place] [address] Tracy Olivares MD [facility] [address] documented as of this encounter Visit Diagnoses Diagnosis FAISAL on CPAP- Primary Obstructive sleep apnea (adult) (pediatric) Chronic obstructive pulmonary disease, unspecified COPD type ([facility]) Class 3 severe obesity due to excess calories without serious comorbidity with body mass index (BMI) of 45.0 to 49.9 in adult ([facility]) Nicotine dependence, cigarettes, in remission documented in this encounter Additional Health Concerns Infection Onset Date Last Indicated Resolved Time COVID-19 Rule Out 01/19/2022 01/19/2022 01/19/2022 12:59 PM CDT COVID-19 Confirmed 01/19/2022 01/19/2022 12:32 AM CDT Assessment Noted Time PHQ-9 Depression Total Score: 0 05/22/20 21 9:15 AM CDT documented as of this encounter Care Teams Balloon Design Printer Relationship Specialty [place] [address] [place] [address] PCP - General INTERNAL MEDICINE 01/02/21 Nathan Baig MD 3 [place] [address] Consulting Physician Internal Medicine Pulmonary Disease 09/16/21 documented as of this encounter
--- OUTSIDE RECORDS SUMMARY | 2024-09-07 05:26 | XMS_ITS | Encounter Summary ---
Author Organization [facility] Address [address] [place] [address]. [place], [place] [address] [place] [address] Care Team Providers Care Medical Chemist Name Role Phone Tracy Olivares MD Primary Care Provider [phone] Encounter Details Date Type Department Care Team (Latest Contact Info) Description 08/17/2021 Travel Social History Tobacco Use Types Packs/Day Years Used Date Smoking Tobacco: Former Cigarettes 1.5 30 0 09/12/1954 - 09/12/1984 Smokeless Tobacco: Never Comments:by Dr Olivares Alcohol Use Standard Drinks/Week [...] have Coronavirus / COVID-19? No / Unsure 08/17/2021 11:15 AM HOMICIDE SQUAD LIEUTENANT documented as of this encounter Plan of Treatment Upcoming Encounters Date Type Department Care Team (Late st Contact Info) Description 10/03/2024 11:00 AM HOMICIDE SQUAD LIEUTENANT Office Visit [facility] - [address] [place] [address] Nathan Baig MD [address] [place] [address] 11/14/2024 10:20 AM HOMICIDE SQUAD LIEUTENANT Office Visit [facility] Mult[facility] Care - [place] [address] [address] [place] [address] Tracy Olivares MD [address] [place] [address] documented as of this encounter Visit Diagnoses Not on filedocumented in this encounter Additional Health Concerns Assessment Noted Time PHQ-9 Depression Total Score: 3 07/06/20 21 9:34 AM CDT documented as of this encounter Care Teams Medical Chemist Relationship Specialty Start Date End Date Tracy Olivares MD [address] [place] [address] PCP - General INTERNAL MEDICINE 01/02/21 documented as of this encounter
--- OUTSIDE RECORDS SUMMARY | 2024-09-07 05:26 | XMS_ITS | Encounter Summary ---
Author Organization [facility] Address [address] [place] [address]. [place], [place] [address] [place] [address] Care Team Providers Care Cattle Dehorner Name Role Phone Tracy Olivares MD Primary Care Provider [phone] Nathan Baig MD Unavailable [phone] Encounter Details Date Type Department Care Team (Latest Contact Info) Description 04/20/2021 Scan HEALTH INFO SRVCS Scanned, Documents Social History Tobacco Use Types Packs/Day Years Used Date Smoking Tobacco: Former Cigarettes 0 09/12/1959 - 09/12/1984 Smokeless Tobacco: Never Comments:by Dr [...] Coronavirus/COVID-19? No / Unsure 10/23/2021 8:36 AM NEWS LIBRARIAN documented as of this encounter Plan of Treatment Upcoming Encounters Date Type Department Care Team (Late Contact Info) Description 10/03/2024 11:00 AM NEWS LIBRARIAN Office Visit [facility] - [address] [place], [place] [id number] Nathan Baig MD 3 [facility] [address] [place] [address] 11/14/2024 10:20 AM NEWS LIBRARIAN Office Visit [facility] - [place] [address] [address] [place] [address] Tracy Olivares MD [facility] [address] documented as of this encounter Visit Diagnoses Not on filedocumented in this encounter Additional Health Concerns Assessment Noted Time PHQ-9 Depression Total Score: 9 04/14/20 10:21 AM CDT documented as of this encounter Care Teams Cattle Dehorner Relationship Specialty Start Date End Date Tracy Olivares MD [address] [place] [address] PCP - General INTERNAL MEDICINE 01/02/21 Nathan Baig MD 3 [facility] [address] [place] [address] Consulting Physician Internal Medicine Pulmonary Disease 09/16/21 documented as of this encounter
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
--- OUTSIDE RECORDS SUMMARY | 2024-09-07 05:26 | XMS_ITS | Encounter Summary ---
Author Organization [facility] Address [address] [place] [address]. [place] [id number] Care Team Providers Care Planning Specialist Name Role Phone Tracy Olivares MD Primary Care Provider [phone] Reason for Visit * Reason Onset Date Comments Other 04/20/2021 Encounter Details Date Type Department Care Team (Late st Contact Info) Description 04/20/2021 Telephone [facility] Multispecialty Care - [place] [address] [address] [place] [address] Tracy Olivares MD [address] [place] [address] [address] [place] [address] Other Social History Tobacco Use Types Packs/Day Years Used Date Smoking Tobacco: Former Cigarettes 0 09/12/1959 - 09/12/1984 Smokeless Tobacco: Never Comments:by Dr Olivares Alcohol Use Standard Drinks/Week Comments Not Currently 0 (1 standard drink = 0.6 oz pur e alcohol) PHQ-2 Answer Date Recorded PHQ-2 Score - If the patient scores above 3, please move on to questions 3-9 3 04/14/2021 Comments No Sex and Gender Information Value Date Recorded Sex Assigned at Not on file Legal Sex Female 8:25 PM CDT Gender Identity Not on file Sexual Orientation Not on file COVID-19 Exposure Response Date Recorded In the last month, have you been in contact with someone who was confirmed or suspected to have Coronavirus / COVID-19? No / Unsure 04/14/2021 9:44 AM CDT documented as of this encounter Progress Notes * Jessica Canales - 04/20/2021 9:23 AM CDT Call bck patient , concerning form she drop off Tuesday, wants to know is this going to be fax back , documented in this encounter Plan of Treatment Upcoming Encounters Date Type Department Care Team (Late st Contact Info) Description 10/03/2024 11:00 AM REAL ESTATE LEASING AGENT Office Visit [facility] - [address] [address] Nathan Baig MD [address] [place] [address] 11/14/2024 10:20 AM REAL ESTATE LEASING AGENT Office Visit [facility] Multispecialty Care - [place] [address] [address] [place] [address] Tracy Olivares MD [address] [address] documented as of this encounter Visit Diagnoses Not on filedocumented in this encounter Additional Health Concerns Assessment Noted Time PHQ-9 Depression Total Score: 9 04/14/20 21 10:21 AM CDT documented as of this encounter Care Teams Planning Specialist Relationship Specialty Start Date End Date Tracy Olivares MD [address] [place] [address] PCP - General INTERNAL MEDICINE 01/02/21 documented as of this encounter
--- OUTSIDE RECORDS SUMMARY | 2024-09-07 05:26 | XMS_ITS | Encounter Summary ---
Author Organization [facility] Address [address] [place] [address]. [place], [place] [address] [place] [address] Care Team Providers Care Incendiaries Supervisor Name Role Phone Tracy Olivares MD Primary Care Provider [phone] Encounter Details Date Type Department Care Team (Latest Contact Info) Description 05/22/2021 Travel Social History Tobacco Use Types Packs/Day Years Used Date Smoking Tobacco: Former Cigarettes 1.5 30 0 09/12/1954 - 09/12/1984 Smokeless Tobacco: Never Comments:by Dr Olivares Alcohol Use Standard Drinks/Week Comments Not Currently 0 (1 standard drink = 0.6 oz pur e alcohol) PHQ-2 Answer Date Recorded PHQ-2 Score - If the patient scores above 3, please move on to questions 3-9 0 05/22/2021 Comments No Sex and Gender Information Value Date Recorded Sex Assigned at Not on file Legal Sex Female 8:25 PM CDT Gender Identity Not on file Sexual Orientation Not on file COVID-19 Exposure Response Date Recorded In the last month, have you been in contact with someone who was confirmed or suspected to have Coronavirus / COVID-19? No / Unsure 05/22/2021 9:06 AM CDT documented as of this encounter Plan of Treatment Upcoming Encounters Date Type Department Care Team (Late st Contact Info) Description 10/03/2024 11:00 AM SEAL MIXER Office Visit [facility] - [address] [place] [address] Nathan Baig MD [address] [place] [address] 11/14/2024 10:20 AM SEAL MIXER Office Visit [facility] Multispecialty Care - [place] [address] [address] [address] [place] [address] Tracy Olivares MD [address] [place] [address] documented as of this encounter Visit Diagnoses Not on filedocumented in this encounter Additional Health Concerns Assessment Noted Time PHQ-9 Depression Total Score: 0 05/22/20 9:15 AM CDT documented as of this encounter Care Teams Incendiaries Supervisor Relationship Specialty Start Date End Date Tracy Olivares MD [address] [place] [address] PCP - General INTERNAL MEDICINE 01/02/21 documented as of this encounter
--- OUTSIDE RECORDS SUMMARY | 2024-09-07 05:26 | XMS_ITS | Encounter Summary ---
Author Organization [facility] Address [address] [place] [address]. [place], [place] [address] [place] [address] Care Team Providers Care Beauty Operator Apprentice Name Role Phone Tracy Olivares MD Primary Care Provider [phone] Reason for Visit * Reason Onset Date Comments Orders 05/22/2021 Encounter Details Date Type Department Care Team (Late st Contact Info) Description 05/22/2021 Telephone [facility] Multispecialty Care - [facility] [address] [facility] [place] [address] Nathan Baig MD [address] [facility] [address] [place] [address] Orders Social History Tobacco Use Types Packs/Day [...] Progress Notes * Lynette Pink MA - 05/22/2021 10:00 AM CDT Order sent to IV * Lynette Pink MA - 05/22/2021 9:53 AM CDT ----- Message from Nathan Baig MD sent at 05/22/2021 9:32 AM CDT ----- Regarding: New mask Order new nasal pillow masks. She does not like her current nasal pillows, had a different kind previously and would like to use the old ones. Nathan Baig MD documented in this encounter Plan of Treatment Upcoming Encounters Date Type Department Care Team (Late st Contact Info) Description 10/03/2024 11:00 AM SENIOR INTERNATIONAL TAX MANAGER Office Visit [facility] - [address] [address] Nathan Baig MD [address] [place] [address] 11/14/2024 10:20 AM SENIOR INTERNATIONAL TAX MANAGER Office Visit [facility] Multispecialty Care - [place] [address] [address] [address] [place] [address] Tracy Olivares MD [address] [place] [address] documented as of this encounter Visit Diagnoses Not on filedocumented in this encounter Additional Health Concerns Assessment Noted Time PHQ-9 Depression Total Score: 0 05/22/20 21 9:15 AM CDT documented as of this encounter Care Teams Beauty Operator Apprentice Relationship Specialty Start Date End Date Tracy Olivares MD [address] [address] PCP - General INTERNAL MEDICINE 01/02/21 documented as of this encounter
--- OUTSIDE RECORDS SUMMARY | 2024-09-07 05:26 | XMS_ITS | Encounter Summary ---
Author Organization [facility] Address [address] [place] [address]. [place] [id number] [place] [address] Care Team Providers Care Crime Data Specialist Name Role Phone Tracy Olivares MD Primary Care Provider [phone] Reason for Visit * Reason Onset Date Comments Follow Up Call 07/06/2021 Encounter Details Date Type Department Care Team (Late st Contact Info) Description 07/06/2021 Telephone [facility] Medical [facility] Multispecialty Care - [address] [place] [address] [place] [address] [place] [address] [address] [place] [address] Follow Up Call Social History [...] have Coronavirus / COVID-19? No / Unsure 07/06/2021 8:40 AM CDT documented as of this encounter Progress Notes * Kriss Vilchis MA - 07/06/2021 3:39 PM CDT Pt has been informed. * Tracy Olivares MD - 07/06/2021 3:34 PM CDT Called pharmacy. Patient concerned about cost of medications. Verified with pharmacy and most of medications at $3.75. Her phentermine is not covered by her insurance as is considered cosmetic. Total cost of her phentermine around $19. Please call patient and update. Thanks Tracy Olivares MD Internal Medicine [facility]. documented in this encounter Plan of Treatment Upcoming Encounters Date Type Department Care Team (Late st Contact Info) Description 10/03/2024 11:00 AM ACCOUNT AUDITOR Office Visit [facility] Pulmonology Specialty Clinic - [address] [address] Nathan Baig MD [address] [place] [address] 11/14/2024 10:20 AM ACCOUNT AUDITOR Office Visit [facility] Multispecialty Care - [place] [address] [address] [place] [address] Tracy Olivares MD [facility] [address] [address] documented as of this encounter Visit Diagnoses Not on filedocumented in this encounter Additional Health Concerns Assessment Noted Time PHQ-9 Depression Total Score: 3 07/06/20 21 9:34 AM CDT documented as of this encounter Care Teams Crime Data Specialist Relationship Specialty Start Date End Date Tracy Olivares MD [address] [place] [address] PCP - General INTERNAL MEDICINE 01/02/21 documented as of this encounter
--- OUTSIDE RECORDS SUMMARY | 2024-09-07 05:26 | XMS_ITS | Encounter Summary ---
Author Organization [facility] Address [address] [place] [address]. [place], [place] [address] [place] [address] Care Team Providers Care Range Scientist Name Role Phone Tracy Olivares MD Primary Care Provider [phone] Reason for Referral * Imaging (Routine) - Closed Specialty Diagnoses / Procedures Referred By Heidi t Referred To Contact RADIOLOGY Diagnoses Epigastric pain Procedures US ABD LIMITED Tracy Olivares MD [address] [facility] [address] [place] [address] Phone: tel: fax: [facility] [address] [facility] [address] [place] [address] Phone: tel: fax: Referral ID Status Reason Start Date Expiration Date Visits Re quested Visits Authorized [id number] Closed 08/17/2021 09/17/2022 1 1 RIGHT MANAGER * Consultation (Routine) - Closed Specialty Diagnoses / Procedures Referred By Contoziel t Referred To Contact GASTROENTEROLOGY Diagnoses PUD (peptic ulcer disease) Tracy Olivares MD [address] [facility] [address] [place] [address] Phone: tel: fax: Isaias Rodriguez MD [address] [facility] [address] [place] [address] Phone: tel: fax: Referral ID Status Reason Start Date Expiration Date Visits Re quested Visits Authorized [id number] Closed 09/01/2021 02/28/2022 6 6 RIGHT MANAGER Reason for Visit * Reason Comments Stomach Pains c/o of ongoing stoma ch pains/gas. She states the omeprazole is not helping anymore Encounter Details Date Type Department Care Team (Latest Contact Info) Description 08/17/2021 11:20 AM COPYRIGHT MANAGER Office Visit [facility] Medical Group Multispecialty Care - [place] [address] [address] [place] [address] Tracy Olivares MD [address] [place] [address] [address] [place], [place] [id number] Stomach Pains (c/o of ongoing stomach pains/gas. She states the omeprazole is not helping anymore) Social History Tobacco Use Types Packs/Day Years [...] COVID-19? No / Unsure 08/17/2021 11:15 AM COPYRIGHT MANAGER documented as of this encounter Last Filed Vital Signs Vital Sign Reading Time Taken Comments Blood Pressure 122/80 08/17/2021 11:24 AM COPYRIGHT MANAGER Pulse 90 08/17/2021 11:24 AM COPYRIGHT MANAGER Temperature 36.7 ??C (98.1 ??F) 08/17/2021 11:[address] Respiratory Rate 18 08/17/2021 11:24 AM COPYRIGHT MANAGER Oxygen Saturation 98% 08/17/2021 11:24 AM COPYRIGHT MANAGER Inhaled Oxygen Concentration - - Weight 127.5 kg (281 lb) 08/17/2021 11:24 AM COPYRIGHT MANAGER Height 161.3 cm (5' 3.5 ) 08/17/2021 11:24 AM CS T Body Mass Index 49 08/17/2021 11:24 AM COPYRIGHT MANAGER documented in this encounter Patient Instructions * Patient Instructions* Tracy Olivares MD - 08/17/2021 11:20 AM COPYRIGHT MANAGER Images from the original note were not included. Follow up in 4 weeks. Patient Education Patient Education Acid Reflux (Gastroesophageal Reflux Disease) During The Basics Written by the doctors and editors at [facility] What is acid reflux???--??Acid reflux is when the acid that is normally in your stomach backs up into your esophagus (figure 1). The esophagus is the tube that carries food from your mouth to your stomach. Another term for acid reflux is gastroesophageal reflux disease, or GERD. Many people get acid reflux during . Acid reflux usually gets worse over the course of thepregnancy. It usually goes away after the baby is born. People who have acid reflux in one are likely to get it again in future pregnancies. What are the symptoms of acid reflux during ???--??The most common symptoms of acid refluxduring are: ?? Burning in the chest, known as heartburn ?? Burning in the throat or an acid taste in the mouth ?? Stomach or chest pain ?? Nausea or vomiting ?? Trouble swallowing ?? A raspy voice or sore throat ?? A cough Will I need tests???--??Probably not. Your doctor or nurse should be able to tell if you have it bytalking with you and doing an exam. Is there anything I can do on my own to improve my symptoms???--??Yes. To help with your symptoms, you can: ?? Avoid lying down within 3 hours of eating. ?? Avoid eating within 3 hours of bedtime. ?? Avoid wearing tight-fitting clothes. ?? Avoid foods that make your symptoms worse. Foods that commonly make acid reflux worse are coffee, cola, tea, citrus foods, chocolate, and fatty foods. ?? Raise the head of your bed by 6 to 8 inches (15 to 20 cm). You can do this by putting blocks of wood or rubber under 2 legs of the bed or using a Styrofoam wedge under your pillow. Are there treatments that can help reduce symptoms???--??Yes. There are 4 main types of medicines that can reduce acid reflux symptoms. They are: ?? Antacids ?? Surface agents ?? Histamine blockers ?? Proton pump inhibitors All of these medicines work by reducing or blocking stomach acid. But each of them does that in a different way (table 1). Doctors usually recommend that people first try antacids to reduce their symptoms. Most antacids are considered safe in , but some are not. If you are , do not take antacidsthat contain sodium bicarbonate and magnesium trisilicate. You can buy antacids without a prescription. If antacids don't help enough, let your doctor or nurse know. They might recommend that you try a surface agent, histamine jorge, or proton pump inhibitor. These medicines work better than antacidsto reduce symptoms. You can buy most histamine blockers and some proton pump inhibitors without a pr escription. Before you use any [id number] medicines for acid reflux, talk to your doctor or nurse. They can tell you which ones are safe to use during . When should I call my doctor or nurse???--??Call your doctor or nurse if you: ?? Have severe heartburn or chest pain, or these symptoms don't get better with treatment ?? Have a fever, headache, nausea, or vomiting with your heartburn ?? Choke when you eat, have trouble swallowing, or feel like food is getting stuck on the way down your throat ?? Lose weight without trying ?? Vomit bright red blood or material that looks like coffee grounds ?? Have bowel movements that look like black tar All topics are updated as new evidence becomes available and our peer review process is complete. This topic retrieved from Guide on: Apr 30, 2021. Topic 54222 Version 9.0 Release: 29.4.2 - C29.229 ?2020??[employer] and/or its affiliates.??All rights reserved. figure 1: Upper digestive tract The upper digestive tract includes the esophagus??(the tube that connects the mouth to the stomach), the stomach, and the duodenum (the first part of the small intestine). Graphic 46756 Version 6.0 table 1: Medicines used to reduce stomach acid Medicine type Medicine name examples Antacids* Calcium carbonate (sample brand names: Maalox, Tums) Aluminum hydroxide, magnesium hydroxide, and simethicone (sample brand name: Mylanta) Surface agents Sucralfate (brand name: Carafate) Histamine blockers?? Famotidine (brand name: Pepcid) Cimetidine (brand name: Tagamet) Proton pump inhibitors Omeprazole (brand name: Prilosec) Esomeprazole (brand name: Nexium) Pantoprazole (brand name: Protonix) Lansoprazole (brand name: Prevacid) Dexlansoprazole (brand name: Dexilant) Rabeprazole (brand name: AcipHex) Graphic 16046 Version 14.0 Consumer Information Use and Disclaimer This information [...] of this information is governed by the [employer] End User License Agreement, available at https://www.[employer].Pulmatrix/en/solutions/[employer]oDB/about/lonny.The use of Guide content is governed by the Guide Terms of Use. ??2020 [facility]. All rights reserved. Copyright ?2020??[employer]. and/or its affiliates.??All rights reserved. RIGHT MANAGER RIGHT MANAGER RIGHT MANAGER documented in this encounter Progress Notes * Tracy Olivares MD - 08/17/2021 11:20 AM CSTSummary: Acute visit notes Images from the original note were not included. Internal Medicine Outpatient Progress Note CC: Stomach Pains (c/o of ongoing stomach pains/gas. She states the omeprazole is not helping anymore) HPI: Keegan Amaya is a 66-year-old female who presents for an acute visit for concerns for worsening epigastric abdominal discomfort. This has been ongoing for about 4 weeks now. Patient already on omeprazole 20 mg daily but notes symptoms not improving. Has had 2 prior upper gastrointestinal endoscopies done in the past. Patient endorses compliance to medications. Of note, patient thinks his symptoms are similar to previous episodes prior to getting upper GI endoscopy. She tells me she has a friend who has pancreatic cancer and has always been worried about this particular diagnosis. She denies any changes to her bowel habits as a result. No blood or melena in the stool. No recent change in weight. Notes intermittent bloatedness and nausea. Thinks food notes slowly than previously whenever she is swallowing. Denies any pain with swallowing. Also of note, patient with history of constipation currently on medications. She has no concerns about that at today's visit. Problem List Patient Active Problem List Diagnosis [...] hyperglyceridemia ??? Prediabetes ??? Other specified anemias Past Medical History: Diagnosis Date ??? Anxiety [...] Years since quittin.9 ??? Smokeless tobacco: Never Used ??? Tobacco comment: by Dr Olivares Vaping Use ??? Vaping Use: Never used Substance Use Topics ??? Alcohol use: Not Currently ??? Drug use: Not Currently Medications: Outpatient Medications Marked as Taking for the 08/17/21 encounter (Office Visit) with Tracy Olivares MD Medication Sig Dispense Refill ??? albuterol sulfate HFA 108 (90 Base) MCG/ACT inhaler Inhale 2 puffs into the lungs every 4 (four) hours as needed. 18 g 5 ??? amoxicillin 500 MG capsule Take 2 capsules (1,000 mg total) by mouth 2 (two) times daily for 7 days. 28 capsule 0 ??? ATORVASTATIN 20 MG tablet TAKE 1 [...] with itching. 28 g 1 ??? escitalopram 10 MG tablet Take 1 tablet (10 mg total) by mouth daily. 90 tablet 2 ??? FAMOTIDINE 20 MG tablet TAKE 1 TABLET BY MOUTH TWICE A DAY 180 tablet 1 ??? gabapentin 100 MG capsule Take 2 capsules (200 mg total) by mouth nightly at bedtime. 90 capsule 3 ??? Losartan Potassium-HCTZ 100-12.5 MG Tab Take 1 tablet by mouth daily. 90 tablet 3 ??? METFORMIN 500 MG tablet TAKE 1 TABLET BY MOUTH EVERY DAY WITH BREAKFAST 90 tablet 1 ??? metoclopramide 5 MG tablet Take 1 tablet (5 mg total) by mouth 3 (three) times a day. 20 tablet0 ??? metroNIDAZOLE 500 MG tablet Take 1 tablet (500 mg total) by mouth 3 (three) times daily for 10 days. 30 tablet 0 ??? omeprazole 40 MG capsule Take 1 capsule (40 mg total) by mouth daily. 30 capsule 1 ??? semaglutide (OZEMPIC 0.25/0.5 MG/DOSE) 2 MG/1.5ML injection (PEN) Inject 0.5 mg into the skin every 7 days. 2 mL 0 ??? Senna 8.6 MG tablet [...] Eyes: Negative. Respiratory: Negative. Cardiovascular: Negative. Gastrointestinal: Positive for abdominal pain (Epigastric), heartburn and nausea. Negative for blood in stool, constipation, diarrhea, melena and vomiting. Genitourinary: Negative. Musculoskeletal: Negative. Skin: Negative. Neurological: Negative. Endo/Heme/Allergies: Negative. Objective: Filed Vitals: 08/17/21 1124 BP: 122/80 Pulse: 90 Resp: 18 Temp: 98.1 ??F (36.7 ??C) SpO2: 98% Weight: 127.5 kg (281 lb) Height: 5' 3.5 (1.613 m) Body mass index is 49 kg/m??. General alert, cooperative, no distress HEENT [...] No rubs, clicks, or gallops. Abdomen Soft, full, mild epigastric tender, no rebound tenderness or guarding, Bowel sounds normal.No masses. No hepatomegaly appreciated. Extremities Extremities atraumatic, [...] Encounter Diagnose(s) ICD-10-CM ICD-9-CM SNOMED CT(R) 1. PUD (peptic ulcer disease) K27.9 533.90 PEPTIC ULCER omeprazole 40 MG capsule amoxicillin 500 MG capsule metroNIDAZOLE 500 MG tablet Ambulatory referral to Gastroenterology (OTHER) metoclopramide 5 MG tablet 2. Epigastric pain R10.13 789.06 EPIGASTRIC PAIN US ABD LIMITED US ABD LIMITED 1. PUD (peptic ulcer disease) -Patient currently complains about persistent epigastric discomfort. No red flag signs such as melena or blood in stool. Prior history of peptic ulcer disease. We will start patient on triple therapyat this time and will reevaluate in 4 weeks. Has a referral placed at today's visit to see gastroenterology for evaluation. - increase to omeprazole 40 MG capsule; Take 1 capsule (40 mg total) by mouth daily. Dispense: 30 capsule; Refill: 1 - amoxicillin 500 MG capsule; Take 2 capsules (1,000 mg total) by mouth 2 (two) times daily for 7 days. Dispense: 28 capsule; Refill: 0 - metroNIDAZOLE 500 MG tablet; Take 1 tablet (500 mg total) by mouth 3 (three) times daily for 10 days. Dispense: 30 tablet; Refill: 0 - Ambulatory referral to Gastroenterology (OTHER) - metoclopramide 5 MG tablet; Take 1 tablet (5 mg total) by mouth 3 (three) times a day. Dispense: 20 tablet; Refill: 0 -Follow-up in 4 weeks 2. Epigastric pain - US ABD LIMITED; Future - US ABD LIMITED Counseling given: Yes Comment: by Dr Olivares I spent 30 minutes [...] was at least in part performed using [facility] and there may be some inherent flaws in this suggestion clerk due to the nature of this program. rTacy Olivares MD Internal Medicine [facility], [facility]. RIGHT MANAGER documented in this encounter Plan of Treatment Upcoming Encounters Date Type Department Care Team (Late st Contact Info) Description 10/03/2024 11:00 AM COPYRIGHT MANAGER Office Visit [facility] Medical [facility] Pulmonology Specialty Clinic - [address] [address] Nathan Baig MD [address] [place] [address] 11/14/2024 10:20 AM COPYRIGHT MANAGER Office Visit [facility] Medical Group Multispecialty Care - [place] [address] [address] [place] [address] Tracy Olivares MD [address] [place] [address] Scheduled Orders Name Type Priority Associated Diagnoses Orde r Schedule US ABD LIMITED Ultrasound Routine Epigastric pain Expected: 08/17/2021, Expires: 08/17/2022 Scheduled Referrals Name Type Priority Associated Diagnoses Orde r Schedule Ambulatory referral to Gastroenterology (OTHER) Referral Routine PUD (peptic ulcer disease) Ordered: 08/17/2021 documented as of this encounter Visit Diagnoses Diagnosis PUD (peptic ulcer disease)- Primary Peptic ulcer, unspecified site, unspecified as acute or chronic, without mention of hemorrhage, perforation, or obstruction Epigastric pain Abdominal pain, epigastric documented in this encounter Additional Health Concerns Assessment Noted Time PHQ-9 Depression Total Score: 3 07/06/20 21 9:34 AM CDT documented as of this encounter Care Teams Range Scientist Relationship Specialty Start Date End Date Tracy Olivares MD [address] [facility] [address] [place] [address] PCP - General INTERNAL MEDICINE 01/02/21 documented as of this encounter
--- OUTSIDE RECORDS SUMMARY | 2024-09-07 05:26 | XMS_ITS | Encounter Summary ---
Author Organization [facility] Address [address] [place] [address]. [place], [place] [address] [place] [address] Care Team Providers Care Vp Securities Name Role Phone Tracy Olivares MD Primary Care Provider [phone] Encounter Details Date Type Department Care Team (Latest Contact Info) Description 08/05/2021 Travel Social History Tobacco Use Types Packs/Day [...] have Coronavirus / COVID-19? No / Unsure 08/05/2021 8:38 AM STRUCTURAL METAL WORKER documented as of this encounter Plan of Treatment Upcoming Encounters Date Type Department Care Team (Late st Contact Info) Description 10/03/2024 11:00 AM STRUCTURAL METAL WORKER Office Visit [facility] Pulmonology Specialty Clinic - [address] [place] [address] Nathan Baig MD [address] [place] [address] 11/14/2024 10:20 AM STRUCTURAL METAL WORKER Office Visit [facility] Multispecialty Care - [place] [address] [address] [place] [address] Tracy Olivares MD [address] [place] [address] documented as of this encounter Visit Diagnoses Not on filedocumented in this encounter Additional Health Concerns Assessment Noted Time PHQ-9 Depression Total Score: 3 07/06/20 21 9:34 AM CDT documented as of this encounter Care Teams Vp Securities Relationship Specialty Start Date End Date Tracy Olivares MD [address] [place] [address] PCP - General INTERNAL MEDICINE 01/02/21 documented as of this encounter
--- OUTSIDE RECORDS SUMMARY | 2024-09-07 05:26 | XMS_ITS | Encounter Summary ---
Author Organization [facility] Address [address] [place] [address]. [place], [place] [id number] [place] [id number] Care Team Providers Care Mailroom Supervisor Name Role Phone Tracy Olivares MD Primary Care Provider Encounter Details Date Type Department Care Team (Latest Contact Info) Description 09/01/2021 Travel Social History Tobacco Use Types Packs/Day [...] have Coronavirus / COVID-19? No / Unsure 09/01/2021 8:51 AM ENGINEERING LABORATORY TECHNICIAN documented as of this encounter Plan of Treatment Upcoming Encounters Date Type Department Care Team (Late st Contact Info) Description 10/03/2024 11:00 AM ENGINEERING LABORATORY TECHNICIAN Office Visit [facility] - [address] [place] [address] Nathan Baig MD [address] [place] [id number] 11/14/2024 10:20 AM ENGINEERING LABORATORY TECHNICIAN Office Visit [facility] Multispecialty Care - [place] [address] [address] [place] [address] Tracy Olivares MD [address] [place] [phone] documented as of this encounter Visit Diagnoses Not on filedocumented in this encounter Additional Health Concerns Assessment Noted Time PHQ-9 Depression Total Score: 3 07/06/20 21 9:34 AM CDT documented as of this encounter Care Teams Mailroom Supervisor Relationship Specialty Start Date End Date Tracy Olivares MD [address] [place] [id number] PCP - General INTERNAL MEDICINE 01/02/21 documented as of this encounter
--- OUTSIDE RECORDS SUMMARY | 2024-09-07 05:26 | XMS_ITS | Encounter Summary ---
Author Organization [facility] Address [address] [place] [address]. [place] [id number] Care Team Providers Care Fire Equipment Operator Name Role Phone Tracy Olivares MD Primary Care Provider [phone] Reason for Visit * Reason Onset Date Comments Error 06/04/2021 Encounter Details Date Type Department Care Team (Late st Contact Info) Description 06/04/2021 Telephone [facility] Mult[facility] - [place] [address] [address] [place], [place] [phone] Tracy Olivares MD [address] [place] [address] [address] [place] [address] Error Social History Tobacco Use [...] Progress Notes * Tracy Olivares MD - 06/04/2021 8:15 AM CDT error documented in this encounter Plan of Treatment Upcoming Encounters Date Type Department Care Team (Late st Contact Info) Description 10/03/2024 11:00 AM CHIEF BANK EXAMINER Office Visit [facility] - [address] [address] Nathan Baig MD [address] [place] [phone] 11/14/2024 10:20 AM CHIEF BANK EXAMINER Office Visit [facility] Multispecialty Care - [place] [address] [address] [place] [address] Tracy Olivares MD [address] [place] [id number] documented as of this encounter Visit Diagnoses Not on filedocumented in this encounter Additional Health Concerns Assessment Noted Time PHQ-9 Depression Total Score: 0 05/22/20 9:15 AM CDT documented as of this encounter Care Teams Fire Equipment Operator Relationship Specialty Start Date End Date Tracy Olivares MD [address] [place] [id number] PCP - General INTERNAL MEDICINE 01/02/21 documented as of this encounter
--- OUTSIDE RECORDS SUMMARY | 2024-09-07 05:26 | XMS_ITS | Encounter Summary ---
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 daily. Dispense: 90 tablet; Refill: 3 2. Prediabetes - A1C (BACK OFFICE) -A1c up from 5.7 to 5.9%. Did discuss weight loss options. See management of weight loss as below. Dietary changes discussed. We will continue to follow closely. 3. FAISAL on CPAP -Compliant with CPAP, encouraged to continue to use CPAP and follow with pulmonary as scheduled forfuture appointments; no concerns at this time. 4. Class 3 severe obesity due to excess calories without serious comorbidity with body mass index (BMI) of 50.0 to 59.9 in adult (CMS/[facility]) -This is patient's first visit for phentermine - Pt has elevated weight with BMI Body mass index is 47.65 kg/m??., and will need to work hard on reducing carbohydrates and total calories. -You may use the free smart phone apps such as Clipcopia to help track calories and try to [...] per week and 5 pounds per month. -Start phentermine 37.5 MG tablet; Take 1 tablet (37.5 mg total) by mouth every morning before breakfast for 30 days. Dispense: 30 tablet; Refill: 0 5. Gastroesophageal reflux disease without esophagitis -Stable -Continue omeprazole 20 MG capsule; Take 1 capsule (20 mg total) by mouth daily. Dispense: 90 capsule; Refill: 1 6. Moderate episode of recurrent major depressive disorder (CMS/HCC) -Well-controlled -Continue escitalopram 10 MG tablet; Take 1 tablet (10 mg total) by mouth daily. Dispense: 90 tablet; Refill: 2 -Will continue to follow in subsequent visits 7. Pulmonary emphysema, unspecified emphysema type (CMS/HCC) -Well-controlled. Currently following with pulmonary. No changes to be made to medications at this time. Medication compliance discussed. - albuterol sulfate HFA 108 (90 Base) MCG/ACT inhaler; Inhale 2 puffs into the lungs every 4 (four)hours as needed. Dispense: 18 g; Refill: 5 -Continue TRELEGY 100-62.5-25 MCG/INH AEROSOL POWDER, BREATH ACTIVATED; Inhale 1 puff into the lungs daily. Dispense: 60 each; Refill: 2 8. Chronic bilateral low back pain with bilateral sciatica - Ambulatory referral to Physical Therapy -Change to traMADol 50 MG tablet; Take 1 tablet (50 mg total) by mouth daily as needed for Pain. Indications: Chronic Pain Dispense: 60 tablet; Refill: 0 tiZANidine 4 MG tablet; Take 0.5 tablets (2 mg total) by mouth nightly at bedtime. at bedtime Dispense: 90 tablet; Refill: 1 -Discontinue ibuprofen -Patient referred to physical therapy 9. Hearing loss of left ear, unspecified hearing loss type -Stable, no concerns, will continue to monitor 10. Chronic left shoulder pain -Still ongoing intermittent concerns. Status post cortisone shot that did help. Patient tells me physical therapy helped but she did not complete sessions - Ambulatory referral to Physical Therapy - tiZANidine 4 MG tablet; Take 0.5 tablets (2 mg total) by mouth nightly at bedtime. at bedtime Dispense: 90 tablet; Refill: 1 -Started on tramadol 11. Generalized anxiety disorder -Controlled -Continue escitalopram 10 MG tablet; Take 1 tablet (10 mg total) by mouth daily. Dispense: 90 tablet; Refill: 2 12. Vitamin D deficiency -Continue with vitamin D 1000 units daily 13. Seasonal allergic rhinitis due to pollen -Stable -Continue azelastine HCl 0.15 % Solution; azelastine 205.5 mcg (0.15 %) nasal spray SPRAY 2 SPRAY(S) TWICE A DAY BY INTRANASAL ROUTE FOR 30 DAYS. Dispense: 30 mL; Refill: 5 -Continue albuterol sulfate HFA 108 (90 Base) MCG/ACT inhaler; Inhale 2 puffs into the lungs every 4 (four) hours as needed. Dispense: 18 g; Refill: 5 14. Restless leg -Improving -Increase to rOPINIRole 0.5 MG tablet; Take 1 tablet (0.5 mg total) by mouth nightly at bedtime. Dispense: 90 tablet; Refill: 2 15. Idiopathic peripheral neuropathy -Improving -Changed to gabapentin 100 MG capsule; Take 2 capsules (200 mg total) by mouth nightly at bedtime. Dispense: 90 capsule; Refill: 3 16. Other constipation -Continue with MiraLAX and magnesium oxide as needed -Patient up-to-date with colonoscopy which was completely normal and due in 10 years. -Start senna 8.6 MG tablet; Take 1 tablet (8.6 mg total) by mouth daily as needed for Constipation.Dispense: 30 tablet; Refill: 1 17. Hemorrhoids, unspecified hemorrhoid type -Stable. Continue with hydrocortisone cream as needed 18.Chronic pain of right knee -Currently patient concerned about risk for fall. Has not had any falls. Discussed physical therapyto help with strengthening of knees. If ongoing concerns, will consider referral to orthopedics versus repeat imaging - fall precautions discussed - knee brace use encouraged - Ambulatory referral to Physical Therapy -Changed to traMADol 50 MG tablet; Take 1 tablet (50 mg total) by mouth daily as needed for Pain. Indications: Chronic Pain Dispense: 60 tablet; Refill: 0 -Discontinue ibuprofen 19. Encounter for screening mammogram for malignant neoplasm of breast - MG SCREENING W SHRUTI JUNIORI 20. Drug therapy - DRUG MONITORING, PANEL 7, WITH CONFIRMATION, (U); Future - DRUG MONITORING, PANEL 7, WITH CONFIRMATION, (U) 21. Need for lerejqlfxk-tabrqql-xqdvqkfhy (Tdap) vaccine - [93167] Adacel (Tdap) Counseling given: Yes Comment: by Dr Olivares I spent 40 minutes [...] was at least in part performed using [employer] and there may be some inherent flaws in this community development technician due to the nature of this program. Tracy Olivares MD Internal Medicine [facility], [facility]. F TOXICOLOGIST documented in this encounter Plan of Treatment Upcoming Encounters Date Type Department Care Team (Late st Contact Info) Description 10/03/2024 11:00 AM STAFF TOXICOLOGIST Office Visit [facility] Pul[facility] Specialty Clinic - [address] [address] Nathan Baig MD [address] [place] [address] 11/14/2024 10:20 AM STAFF TOXICOLOGIST Office Visit [facility] Multispecialty Care - [place] [address] [address] [place] [address] Tracy Olivares MD [address] [place] [address], [place] [address] Scheduled Orders Name Type Priority Associated Diagnoses Orde r Schedule CBC W/DIFF AUTOMATED Lab Routine Essential hypertension Expected: 07/06/2021, Expires: 07/06/2022 COMPREHENSIVE METABOLIC PANEL Lab Routine Essential hypertension Expected: 07/06/2021, Expires: 07/06/2022 LIPID PANEL Lab Routine Essential hypertension Expected: 07/06/2021, Expires: 07/06/2022 MG SCREENING W SHRUTI LUCINA DIGI MAMMO Routine Encounter for screening mammogram for malignant neoplasm of breast Ordered: 07/06/2021 Scheduled Referrals Name Type Priority Associated Diagnoses Orde r Schedule Ambulatory referral to Physical Therapy Referral Routine Chronic bilateral low back pain with bilateral sciatica Chronic left shoulder pain Chronic pain of right knee Ordered: 07/06/2021 documented as of this encounter Procedures Procedure Name Priority Date/Time Associated Diagnosis Comments DRUG MONITORING, PANEL 7, WITH CONFIRMATION, (U) Routine 07/06/2021 9:45 AM CDT Drug therapy HEMOGLOBIN, GLYCOSYLATED Routine 07/06/2021 Essential hypertension Prediabetes documented in this encounter Results * DRUG MONITORING, PANEL 7, WITH CONFIRMATION, (U) (07/06/2021 9:45 AM CDT) ALCOHOL METABOLITES (U) NEGATIVE <500 ng/mL [facility] AMPHETAMINES PM NEGATIVE <500 ng/mL [facility] BARBITURATES PM (U) NEGATIVE <300 ng/mL [facility] BENZODIAZEPINES PM (U) NEGATIVE <100 ng/mL [facility] COCAINE METABOLITE PM (U) NEGATIVE <150 ng/mL [facility] MORPHINE (U) NEGATIVE <10 ng/mL [facility] MARIJUANA METABOLITE PM (U) NEGATIVE <20 ng/mL [facility] METHADONE PM (U) NEGATIVE <100 ng/mL [facility] OPIATES PM (U) NEGATIVE <100 ng/mL [facility] OXYCODONE PM (U) NEGATIVE <100 ng/mL [facility] CREATININE RANDOM URINE 102.9 > or = 20.0 mg/dL [facility] pH PM (U) 5.6 4.5 - 9.0 [facility] OXIDANT NEGATIVE <200 mcg/mL [facility] Note [facility] Comment: This drug testing is for medical treatment only. Analysis was performed as non-forensic testing and these results should be used only by healthcare providers to render diagnosis or treatment, or to monitor progress of medical conditions. LDT Notes: Confirmation tests were developed and their analytical performance characteristics have been determined by [email or web address]. It has not been cleared or approved by the FDA. This assay has been validated pursuant to the CLIA regulations and is used for clinical purposes. Healthcare Providers needing Interpretation assistance, please contact us at [phone] ( ) M-F, 8am to 10pm EST 07/06/2021 9:45 AM CDT 07/07/2021 5:18 AM CDT Tracy Olivares MD LABORATORY Final Result [facility] [address] [place] [address] [email or web address] [address] [place] [address] * A1C (BACK OFFICE) (07/06/2021) HGB A1C 5.9 % [id number], [place] 07/06/2021 Tracy Olivares MD LABORATORY Final Result [id number], [facility] [address] [place] [address], documented in this encounter Visit Diagnoses Diagnosis Essential hypertension- Primary Unspecified essential hypertension Prediabetes Other abnormal glucose FAISAL on CPAP Obstructive sleep apnea (adult) (pediatric) Class 3 severe obesity due to excess calories without serious comorbidity with body mass index (BMI) of 50.0 to 59.9 in adult ([facility]) Gastroesophageal reflux disease without esophagitis Esophageal reflux Moderate episode of recurrent major depressive disorder ([facility]) Pulmonary emphysema, unspecified emphysema type ([facility]) Chronic bilateral low back pain with bilateral sciatica Hearing loss of left ear, unspecified hearing loss type Chronic left shoulder pain Pain in joint, shoulder region Generalized anxiety disorder Vitamin D deficiency Unspecified vitamin D deficiency Seasonal allergic rhinitis due to pollen Restless leg Restless legs syndrome (RLS) Idiopathic peripheral neuropathy Unspecified hereditary and idiopathic peripheral neuropathy Other constipation Hemorrhoids, unspecified hemorrhoid type Class 3 severe obesity due to excess calories without serious comorbidity with body mass index (BMI) of 45.0 to 49.9 in adult ([facility]) Chronic pain of right knee Encounter for screening mammogram for malignant neoplasm of breast Other screening mammogram Drug therapy Encounter for long-term (current) use of other medications Need for witmmjzpts-mwzgxsm-byzblsxuz (Tdap) vaccine Need for prophylactic vaccination with combined xjojzjgzvu-tmoocts-kowalwdhh (DTP) vaccine Low back pain due to bilateral sciatica documented in this encounter Additional Health Concerns Assessment Noted Time PHQ-9 Depression Total Score: 3 07/06/20 21 9:34 AM CDT documented as of this encounter Care Teams Conservation Policy Analyst Relationship Specialty Start Date End Date Tracy Olivares MD [address] [address] PCP - General INTERNAL MEDICINE 01/02/21 documented as of this encounter
--- OUTSIDE RECORDS SUMMARY | 2024-09-07 05:26 | XMS_ITS | Encounter Summary ---
Author Organization [facility] Address [address] [place] [address]. [address] [address] Care Team Providers Care Bone Drier Name Role Phone Tracy Olivares MD Primary Care Provider Reason for Visit * Reason Comments Joint Pain/Shoulder region Jnt Pain/Knee Back Pain * Physical Medicine (Routine) - Closed Specialty Diagnoses / Procedures Referred By Contac t Referred To Contact PHYSICAL THERAPY / [facility] Physical Therapy Diagnoses Chronic bilateral low back pain with bilateral sciatica Chronic left shoulder pain Chronic pain of right knee Tracy Olivares MD [address] [address] Phone: tel: fax: [facility] Physical Therapy [address] [address] Phone: tel: fax: Referral ID Status Reason Start Date Expiration Date V isits Requested Visits Authorized [id number] Closed Physical Therapy 07/06/2021 08/05/2022 10 10 Encounter Details Date Type Department Care Team (Latest Contact Info) Description 08/05/2021 8:45 AM LIGHT ARMORED VEHICLE OFFICER Office Visit [facility] Physical Therapy [address] [address] Tracy Olivares MD [address] [address] y[place], [place] [address] Joint Pain/Shoulder region; Jnt Pain/Knee; Back Pain Social History Tobacco Use Types Packs/Day [...] COVID-19? No / Unsure 08/05/2021 8:38 AM LIGHT ARMORED VEHICLE OFFICER documented as of this encounter Patient Instructions * Patient Instructions* Ly Collado, PT - 08/05/2021 8:45 AM LIGHT ARMORED VEHICLE OFFICER Hip flexor stretch pec stretch arms at medium height pec stretch arms high hooklying clam shell T ARMORED VEHICLE OFFICER documented in this encounter Progress Notes * Ly Collado, PT - 08/05/2021 8:45 AM CST Physical Therapy Visit Note: Patient Name: Keegan Amaya Diagnosis: Back pain, chronic [M54.9, G89.29] Personal Protective Equipment PPE Used During Visit: Therapist wore medical grade mask throughout session, Patient wore mask throughout session SUBJECTIVE Therapy Visit Treatment Day: 2 Total Approved Visits: 10 Therapy Plan of Care: promote improved posture and HEP to aid with joint pain and weakness Current Therapy Orders: eval and tx shoulders, back and knee Diagnosis: chronic low back pain with sciatica, shoulder pain due to OA and weakness, knee OA and weakness from inhiited glutes Referring Provider: Tracy Olivares Precautions: multiple medical problems(OA, DMII, HTN, COPD) Date of Injury: chronic 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 she relates she is unsure if she is doing them correct and she has had some pain with them. Response to prior treatment: good Compliance to Home Program: some Functional changes since last visit: none yet Reported Falls since last visit: none Medications changes since last visit : none Pain Current Location of Pain: shoulder, back and knee Current Pain Level: 0/10 at start of PT OBJECTIVE Treatment provided today: Objective Observation: increased lumbar lordosis and tight anterior hips Neuromuscular Re-education - 32200 Number of Minutes - 19190: 30 Intervention: posterior pelvic tilts Intervention: ab retrain and bracing with transverse abdominus activation Intervention: pelvic rocks at doorway Intervention: scapular retract seated Intervention: supine hip abductor stretch leg cross over Intervention: stand amd walk tall Intervention: diaphragmatic breathing in supine Intervention: hookling clam shells with pelvic tilt Other (Comments): done to address posture retrain to assist with increased lordosis Therapeutic Exercise - 32131 Number of Minutes - 19163: 15 Exercise: hip flexor stretch on back Exercise: pec stretch Exercise: piriformis stretch Other (Comments): done to assist with tightness to hips and chest for improved posture Home Exercise Program Current Home Exercise Program: see wrap up Education Was Education Provided: Yes Topic: educated on how her exercises address her posture issues that lead to her pain. Recipient: Patient Method: Demonstration, Written Response: Verbalized understanding ASSESSMENT Assessment Note: increased tightness to hips front and side, increased lordosis to her back. addressed postureissues to address tightness to front of hips today and chest tightness to assist with standing tall. Response to Treatment : good no increased pain Goal Progression: none yet Continue on Functional Deficit of: back pain, hip pain knee pain and shoulder pain PLAN Plan Changes: breathing, hip stretching and pec stretching and hip mobility Next Visit Plan: review new exercises and initiate hip mobility and clam shells with tband and sideling if able Total Time Total Time in Minutes: 45 Timed Code Treatment Minutes : 45 T ARMORED VEHICLE OFFICER documented in this encounter Plan of Treatment Upcoming Encounters Date Type Department Care Team (Late st Contact Info) Description 10/03/2024 11:00 AM LIGHT ARMORED VEHICLE OFFICER Office Visit [facility] Pulmonology Specialty Clinic - [address] [address] Nathan Baig MD [address] [address] 11/14/2024 10:20 AM LIGHT ARMORED VEHICLE OFFICER Office Visit [facility] Medical [facility] Multispecialty Care - [place] [address] [address] [place] [address] Tracy Olivares MD [facility] [address] [address] documented as of this encounter Visit Diagnoses Diagnosis Back pain, chronic- Primary Backache, unspecified Shoulder pain Pain in joint, shoulder region Knee pain Pain in joint, lower leg documented in this encounter Additional Health Concerns Assessment Noted Time PHQ-9 Depression Total Score: 3 07/06/20 21 9:34 AM CDT documented as of this encounter Care Teams Bone Drier Relationship Specialty Start Date End Date Tracy Olivares MD [address] [place] [address] PCP - General INTERNAL MEDICINE 01/02/21 documented as of this encounter
--- OUTSIDE RECORDS SUMMARY | 2024-09-07 05:26 | XMS_ITS | Encounter Summary ---
Author Organization [facility] Address [address] [place] [address]. [place], [place] [address] [place] [address] Care Team Providers Care Administrative Services Director Name Role Phone Tracy Olivares MD Primary Care Provider [phone] Encounter Details Date Type Department Care Team (Latest Contact Info) Description 03/03/2021 - 03/03/2021 11:59 PM CDT Hospital Encounter [facility] [address] Tracy Olivares MD [address] [address] Discharge Disposition: Home or Self Care [...] please move on to questions 3-9 1 03/03/2021 Comments No Sex and Gender Information Value Date Recorded Sex Assigned at Not on file Legal Sex Female 8:25 PM CDT Gender Identity Not on file Sexual Orientation Not on file COVID-19 Exposure Response Date Recorded In the last month, have you been in contact with someone who was confirmed or suspected to have Coronavirus / COVID-19? No / Unsure 03/03/2021 9:42 AM CDT documented as of this encounter Medications at Time of Discharge aspirin 81 MG tablet Take 1 tablet (81 mg total) by mouth daily. ONETOUCH VERIO test strip 01/18/2021 albuterol sulfate HFA 108 (90 Base) MCG/ACT inhalerIndications :Seasonal allergic rhinitis due to pollen Inhale 2 puffs into the lungs every 4 (four) hours as needed. 18 g 5 03/03/2021 1 Azelastine HCl 0.15 % Solution azelastine 205.5 mcg (0.15 %) nasal spray SPRAY 2 SPRAY(S) TWICE A DAY BY INTRANASAL ROUTE FOR 30 DAYS. 1 escitalopram 10 MG tabletIndications: Moderate episode of recurrent major depressive disorder ([facility]),Generaliz ed anxiety disorder Take 1 tablet (10 mg total) by mouth daily. 90 tablet 1 02/11/2021 1 Losartan Potassium-HCTZ 100-12.5 MG TabIndications:Ess ential hypertension Take 1 tablet by mouth daily. 90 tablet 1 01/05/2021 1 omeprazole 20 MG capsule Take 20 mg by mouth daily. 12/20/2020 1 rOPINIRole 0.5 MG tabletIndications: Restless leg Take 0.5 tablets (0.25 mg total) by mouth nightly at bedtime. 30 tablet 1 03/03/2021 1 TIZANIDINE 4 MG tabletIndications: Low back pain due to bilateral sciatica,Chronic left shoulder pain TAKE 1/2 TABLET AT BEDTIME 45 tablet 1 02/20/2021 1 TRELEGY 100-62.5-25 MCG/INH AEROSOL POWDER, BREATH ACTIVATEDIndicatio ns:Pulmonary emphysema, unspecified emphysema type ([facility] HHS/HCC) Inhale 1 puff into the lungs daily. 60 each 2 01/05/2021 1 Vitamin D, Cholecalciferol, 50 MCG (1999 [place]) CapIndications:Vit horn D deficiency Take 1,000 Units by mouth daily. 30 capsule 03/03/2021 4 documented as of this encounter Plan of Treatment Upcoming Encounters Date Type Department Care Team (Late st Contact Info) Description 10/03/2024 11:00 AM RECORDS MANAGEMENT ANALYST Office Visit [facility] Pulmonology Specialty Clinic - [address] [address] Nathan Baig MD [address] [address] 11/14/2024 10:20 AM RECORDS MANAGEMENT ANALYST Office Visit [facility] Multispecialty Care [place] [address] [address] [place] [address] Tracy Olivares MD [facility] [address] documented as of this encounter Visit Diagnoses Not on filedocumented in this encounter Additional Health Concerns Assessment Noted Time PHQ-9 Depression Total Score: 2 03/03/20 21 11:26 AM CDT documented as of this encounter Care Teams Administrative Services Director Relationship Specialty Start Date End Date Tracy Olivares MD [address] [place] [address] PCP - General INTERNAL MEDICINE 01/02/21 documented as of this encounter
--- OUTSIDE RECORDS SUMMARY | 2024-09-07 05:26 | XMS_ITS | Encounter Summary ---
Author Organization [facility] Address [address] [place] [address]. [address] [address] Care Team Providers Care Pressure Supervisor Name Role Phone Tracy Olivares MD Primary Care Provider [phone] Reason for Visit * Reason Onset Date Comments Other 04/13/2021 Encounter Details Date Type Department Care Team (Late st Contact Info) Description 04/13/2021 Telephone [facility] Multispecialty Care - [place] [address] [address] [place] [address] Tracy Olivares MD [address] [place] [address] [address] [place] [address] Other Social History Tobacco Use [...] as of this encounter Progress Notes * Parul Arora MA - 04/13/2021 1:34 PM CDT She stated she will call if things get worse. * Suzan Strauss NP - 04/13/2021 1:30 PM CDT Put on schedule for tomorrow * Parul Arora MA - 04/13/2021 12:[address] is Dr. Olivares's patient, let me know what you think, I can put her on the schedule. * Sadi Byrd - 04/13/2021 10:31 AM CDT Patient called and stated that her back and leg went out this weekend. She is in severe pain and wanted to know if you could give you something for pain as soon as possible. documented in this encounter Plan of Treatment Upcoming Encounters Date Type Department Care Team (Late st Contact Info) Description 10/03/2024 11:00 AM PUBLIC HEALTH OFFICER Office Visit [facility] Pulmonology Specialty Clinic - [address] [address] Nathan Baig MD [address] [address] 11/14/2024 10:20 AM PUBLIC HEALTH OFFICER Office Visit [facility] Multispecialty Care [place] [address] [address] [address] [address] [place] [address] Tracy Olivares MD [address] [place] [address] documented as of this encounter Visit Diagnoses Not on filedocumented in this encounter Additional Health Concerns Assessment Noted Time PHQ-9 Depression Total Score: 2 03/03/20 21 11:26 AM CDT documented as of this encounter Care Teams Pressure Supervisor Relationship Specialty Start Date End Date Tracy Olivares MD [address] [facility] [address] [place] [address] PCP - General INTERNAL MEDICINE 01/02/21 documented as of this encounter
--- OUTSIDE RECORDS SUMMARY | 2024-09-07 05:26 | XMS_ITS | Encounter Summary ---
Author Organization [facility] Address [address] [place] [address]. [place], [place] [address] [place] [address] Care Team Providers Care Community Administrator Name Role Phone Tracy Olivares MD Primary Care Provider [phone] Encounter Details Date Type Department Care Team (Latest Contact Info) Description 04/27/2021 Travel Social History Tobacco Use Types Packs/Day [...] have Coronavirus / COVID-19? No / Unsure 04/27/2021 10:30 AM CDT documented as of this encounter Plan of Treatment Upcoming Encounters Date Type Department Care Team (Late st Contact Info) Description 10/03/2024 11:00 AM MIDWIFE AND BIRTH CENTER OWNER Office Visit [facility] - [place] [address] [place] [address] Nathan Baig MD [address] [address] 11/14/2024 10:20 AM MIDWIFE AND BIRTH CENTER OWNER Office Visit [facility] Multispecialty Care - [place] [address] [address] [place] [address] [place] [address] [place] [address] documented as of this encounter Visit Diagnoses Not on filedocumented in this encounter Additional Health Concerns Assessment Noted Time PHQ-9 Depression Total Score: 9 04/14/20 10:21 AM CDT documented as of this encounter Care Teams Community Administrator Relationship Specialty Start Date End Date Tracy Olivares MD [address] [place] [address] PCP - General INTERNAL MEDICINE 01/02/21 documented as of this encounter
--- OUTSIDE RECORDS SUMMARY | 2024-09-07 05:26 | XMS_ITS | Encounter Summary ---
Author Organization [facility] Address [address] [place] [address]. [place], [place] [address] [place] [address] Care Team Providers Care Wastewater Treatment Plant Chemist Name Role Phone Tracy Olivares MD Primary Care Provider [phone] Encounter Details Date Type Department Care Team (Latest Contact Info) Description 08/03/2021 Travel Social History Tobacco Use Types Packs/Day [...] have Coronavirus / COVID-19? No / Unsure 08/03/2021 9:18 AM CHILD DEVELOPMENT PROFESSOR documented as of this encounter Plan of Treatment Upcoming Encounters Date Type Department Care Team (Late st Contact Info) Description 10/03/2024 11:00 AM CHILD DEVELOPMENT PROFESSOR Office Visit [facility] - [address] [place] [address] Nathan Baig MD [address] [place] [address] 11/14/2024 10:20 AM CHILD DEVELOPMENT PROFESSOR Office Visit [facility] Multispecialty Care - [place] [address] [address] [place] [address] Tracy Olivares MD [address] [place] [address] documented as of this encounter Visit Diagnoses Not on filedocumented in this encounter Additional Health Concerns Assessment Noted Time PHQ-9 Depression Total Score: 3 07/06/20 21 9:34 AM CDT documented as of this encounter Care Teams Wastewater Treatment Plant Chemist Relationship Specialty Start Date End Date Tracy Olivares MD [address] [place] [address] PCP - General INTERNAL MEDICINE 01/02/21 documented as of this encounter
--- OUTSIDE RECORDS SUMMARY | 2024-09-07 05:26 | XMS_ITS | Encounter Summary ---
Author Organization [facility] Address [address] [place] [address]. [place], [place] [address] [place] [address] Care Team Providers Care Compressor Service Technician Name Role Phone Tracy Olivares MD Primary Care Provider [phone] Reason for Visit * Reason Comments Ultrasound (SCAN) Mammogram (SCAN) Encounter Details Date Type Department Care Team ([facility] Contact Info) Description 08/25/2021 Scan HEALTH INFO [facility] Scanned, Documents Ultrasound (SCAN); Mammogram (SCAN) Social History Tobacco Use Types [...] COVID-19? No / Unsure 09/01/2021 8:51 AM WALLCOVERING TEXTURER documented as of this encounter Plan of Treatment Upcoming Encounters Date Type Department Care Team ([facility] Contact Info) Description 10/03/2024 11:00 AM WALLCOVERING TEXTURER Office Visit [facility] - [address] [place] [address] Nathan Baig MD [address] [address] 11/14/2024 10:20 AM WALLCOVERING TEXTURER Office Visit [facility] Multispecialty Care - [place] [address] [place] [address] [address] [place] [address] Tracy Olivares MD [address] [facility] [address] [place] [address] documented as of this encounter Procedures Procedure Name Priority Date/Time Associated Diagnosis Comments MAMMOGRAM GENERIC (SCAN ORDER) 08/25/2021 MAMMOGRAM GENERIC (SCAN ORDER) 08/25/2021 ULTRASOUND GENERIC (SCAN ORDER) 08/25/2021 documented in this encounter Results * MAMMOGRAM GENERIC (08/25/2021) Anatomical Region Laterality Modality Other 08/25/2021 Narrative 08/25/2021 Ordered by an unspecified provider. us Documents Scanned SCANNING Final Result * MAMMOGRAM GENERIC (08/25/2021) Anatomical Region Laterality Modality Other 08/25/2021 Narrative 08/25/2021 Ordered by an unspecified provider. us Documents Scanned SCANNING Final Result * ULTRASOUND GENERIC (08/25/2021) Anatomical Region Laterality Modality Other 08/25/2021 Narrative 08/25/2021 Ordered by an unspecified provider. us Documents Scanned SCANNING Final Result documented in this encounter Visit Diagnoses Not on filedocumented in this encounter Additional Health Concerns Assessment Noted Time PHQ-9 Depression Total Score: 3 07/06/20 9:34 AM CDT documented as of this encounter Care Teams Compressor Service Technician Relationship Specialty Start Date End Date Tracy Olivares MD [facility] [address] PCP - General INTERNAL MEDICINE 01/02/21 documented as of this encounter
--- OUTSIDE RECORDS SUMMARY | 2024-09-07 05:26 | XMS_ITS | Encounter Summary ---
Author Organization [facility] Address [address] [place] [address]. [place] [id number] Care Team Providers Care Spinning Mule Operator Name Role Phone Tracy Olivares MD Primary Care Provider [phone] Reason for Visit * Reason Onset Date Comments Results 08/25/2021 Encounter Details Date Type Department Care Team (Late st Contact Info) Description 08/25/2021 Telephone [facility] Multispecialty Care - [place] [address] [address] [place] [address] Tracy Olivares MD [address] [place] [address] [address] [place] [address] Results Social History Tobacco Use [...] COVID-19? No / Unsure 08/17/2021 11:15 AM MECHANICAL TEST TECHNICIAN documented as of this encounter Progress Notes * Kriss Vilchis MA - 08/26/2021 9:16 AM CST Pt stated she has the endo scheduled for October 06. ANICAL TEST TECHNICIAN * Tracy Olivares MD - 08/25/2021 6:52 PM CST Right upper quadrant abdominal ultrasound done on 08/25/2021 for epigastric abdominal pain unremarkable. Please call patient and encourage patient to follow-up with gastroenterology to have possible repeat endoscopy done. Tracy Olivares MD Internal Medicine [facility]. ANICAL TEST TECHNICIAN documented in this encounter Plan of Treatment Upcoming Encounters Date Type Department Care Team (Late st Contact Info) Description 10/03/2024 11:00 AM MECHANICAL TEST TECHNICIAN Office Visit [facility] Pulmonology Specialty Clinic - [address] [address] Nathan Baig MD [address] [address] 11/14/2024 10:20 AM MECHANICAL TEST TECHNICIAN Office Visit [facility] Multispecialty Care - [place] [address] [address] [place] [address] Tracy Olivares MD [facility] [address] documented as of this encounter Visit Diagnoses Not on filedocumented in this encounter Additional Health Concerns Assessment Noted Time PHQ-9 Depression Total Score: 3 07/06/20 21 9:34 AM CDT documented as of this encounter Care Teams Spinning Mule Operator Relationship Specialty Start Date End Date Tracy Olivares MD [address] [place] [address] PCP - General INTERNAL MEDICINE 01/02/21 documented as of this encounter
--- OUTSIDE RECORDS SUMMARY | 2024-09-07 05:26 | XMS_ITS | Encounter Summary ---
Author Organization [facility] [place] Address [address] [place] [address]. [address] [address] Care Team Providers Care Actuarial Trainee Name Role Phone Tracy Olivares MD Primary Care Provider Reason for Referral * Physical Medicine (Routine) - Closed Specialty Diagnoses / Procedures Referred By Contac t Referred To Contact PHYSICAL THERAPY / [facility] Physical Therapy Diagnoses Chronic bilateral low back pain with [place] [address] [place] [address] Phone: tel: fax: [facility] Physical Therapy [facility] [address] [address] Phone: tel: fax: Referral ID Status Reason Start Date Expiration Date V isits Requested Visits Authorized [id number] Closed Physical Therapy 04/27/2021 05/27/2022 6 6 Reason for Visit * Reason Comments Sting states she was stung twice last tuesday, once on her hand and right leg Low Back Pain she would like a ref erral for PT for low back pain Encounter Details Date Type Department Care Team (Latest Contact Info) Description 04/27/2021 11:00 AM CDT Office Visit [facility] - [place] [address] [place] [address] [address] [place] [address] Tracy Olivares MD [address] [facility] [address] [place] [address] Sting (states she was stung twice last tuesday, once on her hand and right leg); Low Back Pain (she would like a referral for PT for low back pain) Social History Tobacco Use Types Packs/Day Years Used Date Smoking Tobacco: Former Cigarettes 0 09/12/1959 - 09/12/1984 Smokeless Tobacco: Never Tobacco Cessation:Counseling [...] Sign Reading Time Taken Comments Blood Pressure 145/78 04/27/2021 10:55 AM CDT Pulse 80 04/27/2021 10:55 AM CDT Temperature 36.7 ??C (98 ??F) 04/27/2021 10:55 AM CDT Respiratory Rate 18 04/27/2021 10:55 AM CDT Oxygen Saturation 97% 04/27/2021 10:55 AM CDT Inhaled Oxygen Concentration - - Weight 133.4 kg (294 lb) 04/27/2021 10:55 AM CDT Height 161.3 cm (5' 3.5 ) 04/27/2021 10:55 AM CD T Body Mass Index 51.26 04/27/2021 10:55 AM CDT documented in this encounter Patient Instructions * Patient Instructions* Tracy Olivares MD - 04/27/2021 11:00 AM CDT Images from the original note were not included. Please follow up in 2 weeks. Patient Education Patient Education Back Flexion Stretching Exercises About this topic Back pain is a common problem for adults. Different exercises may help to lessen pain. One kind of exercise that may help are back flexion stretching exercises. Back flexion means the back is bendingforward. Based on the cause of your back pain, these exercises could make some back problems worse. General Before starting with a program, ask your doctor if you are healthy enough to do these exercises. Your doctor may have you work with a parent trainer, chiropractor or physical therapist to make [...] each day. Do all exercises slowly. ?? Single knee to chest stretches ? Lie on your back. Pull one knee towards your chest until you feel a stretch in your lower back and buttock area. Repeat with the other knee. If you have knee problems, pull your knee up by grabbing the back of your thigh instead of the front of your knee. You canalso do this exercise by grabbing both knees at the same time. ?? Deep hip stretches lying down ? Lie on your back and bend one knee, keeping that foot flat on the floor. Cross the other leg over your knee. Pull the bottom leg towards your chest until you feel astretch in the other buttock. Repeat using the opposite leg as the bottom leg. ?? Hamstring stretches seated ? Sit up straight on the edge of a chair. Make sure you keep your back straight. Straighten your knee on your left leg. Keep your heel on the floor. Bend forward at the waist towards your foot while keeping your upper back straight. Bend forward until you feel a stretch in the back of your thigh. Repeat on the other leg. ?? Lower back stretches seated ? Sit in a chair with your feet spread about shoulder width apart. Then, lean forward until you feel a stretch in your lower back. You may need to reach back in betweenyour legs to feel more of a stretch. ?? Front hip stretches kneeling or hip flexor stretches ? Kneel down on one leg. Lean forward on your front leg while pushing your back leg backwards. Do this until you feel a stretch in the front ofthe hip on your back leg. Repeat on the other side. ?? Opposite foot touches standing ? Stand with your feet a little more than shoulder width apart. Reach your arms straight out from your sides. Bend forward at the waist and reach your right hand towards your left foot. Your other arm will reach behind you upwards towards the yoel. Keep your arms and legs straight. Now, stand back up and repeat with the left hand reaching towards the right foot. What will the results be? ?? Better flexibility ?? Less stiffness ?? Less back pain ?? Less back spasms ?? Easier to walk and do other activities ?? Less leg pain, numbness, and tingling Helpful tips ?? Stay active and work [...] can lead to injury. ?? Try walking and swinging your arms at an easy pace for a few minutes to warm up your muscles. Dothis again after exercising. ?? Never bounce when doing stretches. ?? Doing exercises before a meal may be a good way to get into a routine. ?? Exercise may be slightly uncomfortable, but you should not have sharp pains. If you do get sharppains, stop what you are doing. If the sharp pains continue, call your doctor. Where can I learn more? [employer] [place] [employer] http://orthoinfo.aaos.org/topic.cfm?zukcx=X99305 Last Reviewed Date 2020-11-27 Consumer Information Use [...] right for you. Copyright Copyright ?? 2020 [employer]. and its affiliates and/or licensors. All rights reserved. Patient Education Patient Education Insect Bites and Stings Discharge Instructions About this topic Insect bites and stings can cause a reaction to your skin right away. When an insect bites you, it uses its mouth parts. When an insect stings you, it uses a special stinger on the back of its body. Some insects transfer blood from other people or animals they have bitten to you. This means you canget certain infections from insect bites. Insects that sting can inject you with a venom. The venomcan irritate your skin. It can also be deadly for people who have a severe allergy. You may have: ?? Pain from the bite or sting ?? Itching ?? Burning ?? Numbness ?? Tingling ?? Redness ?? Swelling In rare cases, some insect bites can lead to diseases such as malaria, plague, or Lyme disease. What care is needed at home? ?? Ask your doctor what you need to do when you go home. Make sure you ask questions if you do not understand what the doctor says. ?? Keep the area clean and try not to scratch it. ?? Use cool compresses on the skin. They may help with swelling and itching. Dip a cloth in cold water and put it right on your itchy skin. ?? Use an ysuv-mpt-fmdeagm cream or ointment to help with itching. ?? You may want to take drugs like ibuprofen, naproxen, or acetaminophen if the bite or sting is painful or very swollen. What follow-up care is needed? Your doctor may ask you to make visits to the office to check on your progress. Be sure to keep these visits. What drugs may be needed? The doctor may order drugs to: ?? Help with pain and swelling ?? Relieve itching ?? Reduce your body's reaction to the bite or sting What problems could happen? Some people have a very bad allergy to insect bites and stings. If you have this kind of allergy, it can be life threatening. If you are stung, you might have: ?? Chest pain ?? Face or mouth swelling ?? Problems with swallowing ?? Trouble breathing ?? Shock Be sure to carry an anti-allergy kit if you know you have very bad reactions to insect bites or stings. What can be done to prevent this health problem? ?? Do not bother insects. ?? Wear bug spray on any skin that is showing when you go outside. Put bug spray on top of boots, bottom of pant legs, and sleeve cuffs. ?? Wear clothes that can protect your skin from any insect bites and stings. ?? Be careful when you eat outside because food attracts insects. ?? Put screens on windows. ?? Empty any standing water outside and wash containers with soap and water. ?? Use citronella candles outdoors to keep mosquitos away. ?? Treat your pets for fleas. When do I need to call the doctor? ?? You have wheezing or trouble breathing. ?? You pass out or feel like you may pass out. ?? You have swelling of your face, lips, tongue, or throat. ?? You have stomach cramps, upset stomach, throw up, or loose stools. ?? You have a fever of 100.4??F (38??C) or higher or chills. ?? Your bite or sting is swollen, red, or warm. ?? Your bite or sting has thick, yellow, or green drainage. Teach Back: Helping You Understand The Teach [...] tell you what may help ease my pain. ?? I can tell you what I will do if I have redness, drainage, or warmth around my bite. Where can I learn more? [employer] https://familydoctor.org/bug-bites/ [employer] http://kidshealth.org/parent/_summerspotlight/_parks/insect_bite.html NHS Choices https://www.nhs.uk/conditions/uavmem-pcuwr-trn-stings/ Last Reviewed Date 2021-02-17 Consumer Information Use and Disclaimer This information [...] right for you. Copyright Copyright ?? 2020 [employer]. and its affiliates and/or licensors. All rights reserved. documented in this encounter Progress Notes * Tracy Olivares MD - 04/27/2021 11:00 AM CDTSummary: Acute visit notes Images from the original note were not included. Internal Medicine Outpatient Progress Note CC: Sting (states she was stung twice last tuesday, once on her hand and right leg) and Low Back Pain (she would like a referral for PT for low back pain) HPI: Keegan Amaya is a 65-year-old female who presents for concerns for wasp bite. Patient reports wasp bites by about 4 insects on the right hand and right posterior ankle a few days ago. Tells me they were initially very painful. Patient started taking Benadryl vbee-ngs-qpqhzyr with mild improvement in symptoms/itching. Notes ongoing itching. Has some Benadryl at home. Denies any shortness of breath, cough or wheezing or hoarseness of voice. Notes mild pain of the right hand andposterior right ankle. Denies any fever or chills. Patient was recently seen for worsening low back pain. Patient tells me pain is a little better after adding [place] to medications. Does not want any refills on the [place]. She is interested in physical therapy. Denies any red flag signs symptoms such as loss of urine incontinence, weakness of the lower extremities or loss of sensation in the perineum. This is a chronic issue. Patient will also like to have a letter to help with getting approved for a 2 bedroom accommodation. Letter written and given to patient at today's visit. Problem List Patient Active [...] Hearing loss left ear ??? Hypertension ??? Hypertension ??? Impaired glucose tolerance ??? Obese ??? FAISAL on CPAP ??? Shoulder pain Past Surgical History: Procedure Laterality Date ??? CHOLECYSTECTOMY ??? HAND SURGERY both hands ??? HYSTERECTOMY Family History Problem Relation Name Age of Onset ??? Heart Disease Mother ??? Diabetes Mother ??? Cancer Father prostate, lymph node ??? Prostate Cancer Father ??? Hyperlipidemia Sister ??? Hypertension Sister ??? Other (diabetes) Sister ??? Other (stomach issues) Brother ??? Other (diverticular) Brother ??? Diabetes Maternal Grandmother ??? Diabetes Paternal Grandmother ??? Glaucoma Paternal Grandmother Social History Tobacco Use ??? Smoking status: Former Smoker Years: 25.00 Types: Cigarettes Quit date: 09/12/1984 Years since quittin.6 ??? Smokeless tobacco: Never Used ??? Tobacco comment: by Dr Olivares Substance Use Topics ??? Alcohol use: Not Currently ??? Drug use: Not Currently Medications: Outpatient Medications Marked as Taking for the 04/27/21 encounter (Office Visit) with Tracy Olivares MD [...] BY INTRANASAL ROUTE FOR 30 DAYS. ??? escitalopram 10 MG tablet Take 1 tablet (10 mg total) by mouth daily. 90 tablet 1 ??? Losartan Potassium-HCTZ 100-12.5 MG Tab Take 1 tablet by mouth daily. 90 tablet 1 ??? methylPREDNISolone, KAREN, 4 MG tablet 6 TABLETS ON DAY ONE, 5 TABLETS DAY TWO, 4 TABLETS DAY THREE, 3 TABLETS DAY FOUR, 2 TABLETS DAY FIVE, AND 1 TABLET DAY SIX 1 each 0 ??? omeprazole 20 MG capsule Take 20 mg by mouth daily. ??? ONETOUCH VERIO test strip ??? rOPINIRole 0.5 MG tablet Take 0.5 tablets (0.25 mg total) by mouth nightly at bedtime. 30 tablet 1 ??? TIZANIDINE 4 MG tablet TAKE 1/2 TABLET AT BEDTIME 45 tablet 1 ??? [DISCONTINUED] TRELEGY 100-62.5-25 MCG/INH AEROSOL POWDER, BREATH ACTIVATED Inhale 1 puff into the lungs daily. 60 each 2 ??? Vitamin D, Cholecalciferol, 50 MCG (2000 UT) Cap Take 1,000 Units by mouth daily. 30 capsule Allergies: Allergies Allergen Reactions ??? Propoxyphene Unknown Review of Systems Constitutional: Negative. HENT: Negative. Eyes: Negative. Respiratory: Negative. Cardiovascular: Negative. Gastrointestinal: Negative. Genitourinary: Negative. Musculoskeletal: Negative. Skin: Positive for itching and rash. Neurological: Negative. Psychiatric/Behavioral: Negative. Objective: Filed Vitals: 04/27/21 1055 BP: 145/78 Pulse: 80 Resp: 18 Temp: 98 ??F (36.7 ??C) SpO2: 97% Weight: 133.4 kg (294 lb) Height: 5' 3.5 (1.613 m) Body mass index is 51.26 kg/m??. General alert, cooperative, no distress HEENT EOM's intact. Oral mucosa normal. Nasal septum is midline. Oral exam is normal. Neck Supple, symmetrical, trachea midline, no adenopathy, no thyromegaly, no JVD. No neck swelling. Lungs No acute respiratory distress, no accessory [...] cyanosis, 2+ pedal pulses, no edema Skin mild erythema and very mild swelling on the posterior aspect of right hand. Mild erythema on the posterior aspect of right ankle. No swelling of right lower extremity.. Neurologic No focal deficits, motor strength is grossly normal and symmetric Psych Normal mood and affect MSK No synovitis, no bony tenderness, no joint effusions Lymph No cervical or supraclavicular adenopathy Assessment and Plan: Encounter Diagnose(s) ICD-10-CM ICD-9-CM SNOMED CT(R) 1. Insect bite of right hand, initial encounter S60.561A 914.4 INSECT BITE OF HAND methylPREDNISolone, KAREN, 4 MG tablet W57.XXXA E906.4 2. Chronic bilateral low back pain with bilateral sciatica M54.42 724.2 CHRONIC LOW BACK PAIN Ambulatory referral to Physical Therapy M54.41 724.3 G89.29 338.29 3. Insect bite of right ankle, initial encounter S90.561A 916.4 NONVENOMOUS INSECT BITE OF ANKLE WITHOUT INFECTION W57.XXXA E906.4 1. Insect bite of right hand, initial encounter -Mild swelling and erythema on the dorsal aspect of right hand as well as posterior right ankle. Noconcerning symptoms to suggest wheezing, hoarseness of voice. Her lung exam is normal at this time.Noted underlining history of COPD. Will place patient on a tapered dose of steroids. Did encourage her to take her Benadryl only as needed. -Start methylPREDNISolone, KAREN, 4 MG tablet; 6 TABLETS ON DAY ONE, 5 TABLETS DAY TWO, 4 TABLETS DAYTHREE, 3 TABLETS DAY FOUR, 2 TABLETS DAY FIVE, AND 1 TABLET DAY SIX Dispense: 1 each; Refill: 0 2. Chronic bilateral low back pain with bilateral sciatica - Ambulatory referral to Physical Therapy -Stretch exercises encouraged. AVS with instructions -Can take Tylenol 60 mg every 6-8 hours as needed 3. Insect bite right ankle - still with some erythema and mild swelling - Start methylPREDNISolone, KAREN, 4 MG tablet; 6 TABLETS ON DAY ONE, 5 TABLETS DAY TWO, 4 TABLETS DAY THREE, 3 TABLETS DAY FOUR, 2 TABLETS DAY FIVE, AND 1 TABLET DAY SIX Dispense: 1 each; Refill: 0 Counseling given: Yes Comment: by Dr Olivares [...] was at least in part performed using [employer] and there may be some inherent flaws in this insights strategist due to the nature of this program. Tracy Olivares MD Internal Medicine [facility], [facility]. documented in this encounter Plan of Treatment Upcoming Encounters Date Type Department Care Team (Late st Contact Info) Description 10/03/2024 11:00 AM CONSUMER SAFETY INSPECTOR Office Visit [facility] - [address] [address] Nathan Baig MD [address] [place] [address] 11/14/2024 10:20 AM CONSUMER SAFETY INSPECTOR Office Visit [facility] [place] [address] [address] [place] [address] Tracy Olivares MD [address] [place] [address] Scheduled Referrals Name Type Priority Associated Diagnoses Orde r Schedule Ambulatory referral to Physical Therapy Referral Routine Chronic bilateral low back pain with bilateral sciatica Ordered: 04/27/2021 documented as of this encounter Visit Diagnoses Diagnosis Insect bite of right hand, initial encounter- Primary Chronic bilateral low back pain with bilateral sciatica Insect bite of right ankle, initial encounter documented in this encounter Additional Health Concerns Assessment Noted Time PHQ-9 Depression Total Score: 9 04/14/20 21 10:21 AM CDT documented as of this encounter Care Teams Actuarial Trainee Relationship Specialty Start Date End Date Tracy Olivares MD [address] [address] PCP - General INTERNAL MEDICINE 01/02/21 documented as of this encounter
--- OUTSIDE RECORDS SUMMARY | 2024-09-07 05:26 | XMS_ITS | Encounter Summary ---
Author Organization [facility] Address [address] [place] [address]. [place], [place] [address] [place] [address] Care Team Providers Care Accounts Adjustable Clerk Name Role Phone Tracy Olivares MD Primary Care Provider [phone] Encounter Details Date Type Department Care Team (Latest Contact Info) Description 07/17/2021 Travel Social History Tobacco Use Types Packs/Day [...] st Contact Info) Description 10/03/2024 11:00 AM BOOKS SALESPERSON Office Visit [facility] - [address] [place] [address] Nathan aBig MD [address] [place] [address] 11/14/2024 10:20 AM BOOKS SALESPERSON Office Visit [facility] Mult[facility]pec[facility]ty Care [place] [address] [address] [place] [address] Tracy Olivares MD [address] [place] [address] documented as of this encounter Visit Diagnoses Not on filedocumented in this encounter Additional Health Concerns Assessment Noted Time PHQ-9 Depression Total Score: 3 07/06/20 21 9:34 AM CDT documented as of this encounter Care Teams Accounts Adjustable Clerk Relationship Specialty Start Date End Date Tracy Olivares MD [address] [place] [address] PCP - General INTERNAL MEDICINE 01/02/21 documented as of this encounter
--- OUTSIDE RECORDS SUMMARY | 2024-09-07 05:26 | XMS_ITS | Encounter Summary ---
Author Organization [facility] Address [address] [place] [address]. [place] [id number] Care Team Providers Care Senior Cyber Security Analyst Name Role Phone Tracy Olivares MD Primary Care Provider [phone] Reason for Visit * Reason Onset Date Comments Other 03/13/2021 Encounter Details Date Type Department Care Team (Late st Contact Info) Description 03/13/2021 Telephone [facility] Multispecialty Care - [place] [address] [address] [place] [address] Tracy Olivares MD [address] [place] [address] [address] [place] [address] Other Social History Tobacco Use [...] encounter Progress Notes * Jessica Canales - 03/13/2021 9:17 AM CDT Fax order [phone] [facility] Fax over bone carlos order documented in this encounter Plan of Treatment Upcoming Encounters Date Type Department Care Team (Late st Contact Info) Description 10/03/2024 11:00 AM LOW VISION THERAPIST Office Visit [facility] Medical [facility] - [address] [address] Nathan Baig MD [address] [place] [address] 11/14/2024 10:20 AM LOW VISION THERAPIST Office Visit [facility] Multispecialty Care [place] [address] [address] [place] [address] Trcay Olivares MD [facility] [address] [address] documented as of this encounter Visit Diagnoses Not on filedocumented in this encounter Additional Health Concerns Assessment Noted Time PHQ-9 Depression Total Score: 2 03/03/20 21 11:26 AM CDT documented as of this encounter Care Teams Senior Cyber Security Analyst Relationship Specialty Start Date End Date Tracy Olivares MD [address] [place] [address] PCP - General INTERNAL MEDICINE 01/02/21 documented as of this encounter
--- OUTSIDE RECORDS SUMMARY | 2024-09-07 05:26 | XMS_ITS | Encounter Summary ---
Author Organization [facility] Address [address] [place] [address]. [place] [id number] Care Team Providers Care Shaker Repairer Name Role Phone Tracy Olivares MD Primary Care Provider [phone] Reason for Visit * Reason Onset Date Comments Question 08/31/2021 Encounter Details Date Type Department Care Team (Late st Contact Info) Description 08/31/2021 Telephone [facility] Multispecialty Care [place] [address] [address] [place] [address] Tracy Olivares MD [address] [place] [address] [address] [place] [address] Question Social History Tobacco Use [...] COVID-19? No / Unsure 08/17/2021 11:15 AM WASTE RECYCLER documented as of this encounter Progress Notes * Parul Arora MA - 09/01/2021 8:47 AM CST She is scheduled to come in today E RECYCLER * Tracy Olivares MD - 08/31/2021 1:10 PM CST Called and spoke to patient. Describing dizzy episodes. She cannot come in today but plans to come in tomorrow 10/02/2020. Tracy Olivares MD Internal Medicine [facility].' E RECYCLER E RECYCLER * Parul Arora MA - 08/31/2021 11:10 AM CST Please advise E RECYCLER * Sadi Byrd - 08/31/2021 10:57 AM CST Patient called and stated that she has had something like vertigo for the past 5 days and it has not gone away. She would like to know if there is anything you can prescribe her or anything she can take over the counter. Please call patient to discuss. E RECYCLER documented in this encounter Plan of Treatment Upcoming Encounters Date Type Department Care Team (Late st Contact Info) Description 10/03/2024 11:00 AM WASTE RECYCLER Office Visit [facility] - [place] [address] [address] [place] [address] Nathan Baig MD [address] [place] [address] 11/14/2024 10:20 AM WASTE RECYCLER Office Visit [facility] Care - [address] [place] [address] Tracy Olivares MD [address] [place] [address] documented as of this encounter Visit Diagnoses Not on filedocumented in this encounter Additional Health Concerns Assessment Noted Time PHQ-9 Depression Total Score: 3 07/06/20 21 9:34 AM CDT documented as of this encounter Care Teams Shaker Repairer Relationship Specialty Start Date End Date Tracy Olivares MD [address] [place] [address] PCP - General INTERNAL MEDICINE 01/02/21 documented as of this encounter
--- OUTSIDE RECORDS SUMMARY | 2024-09-07 05:26 | XMS_ITS | Encounter Summary ---
Author Organization [facility] Address [address] [place] [address]. [place], [place] [address] [place] [address] Care Team Providers Care Bath House Attendant Name Role Phone Tracy Olivares MD Primary Care Provider [phone] Encounter Details Date Type Department Care Team (Latest Contact Info) Description 05/11/2021 Travel Social History Tobacco Use Types Packs/Day [...] have Coronavirus / COVID-19? No / Unsure 05/11/2021 9:44 AM CDT documented as of this encounter Plan of Treatment Upcoming Encounters Date Type Department Care Team (Late st Contact Info) Description 10/03/2024 11:00 AM [address] Office Visit [facility] - [place] [address] [place] [address] Nathan Baig MD [address] [address] 11/14/2024 10:20 AM [address] Office Visit [facility] Multispecialty Care - [place] [address] [address] [place] [address] [place] [address] [place] [address] documented as of this encounter Visit Diagnoses Not on filedocumented in this encounter Additional Health Concerns Assessment Noted Time PHQ-9 Depression Total Score: 9 04/14/20 10:21 AM CDT documented as of this encounter Care Teams Bath House Attendant Relationship Specialty Start Date End Date Tracy Olivares MD [address] [place] [address] PCP - General INTERNAL MEDICINE 01/02/21 documented as of this encounter
--- OUTSIDE RECORDS SUMMARY | 2024-09-07 05:26 | XMS_ITS | Encounter Summary ---
Author Organization [facility] Address [address] [place] [address]. [address] [address] Care Team Providers Care Ship'S Master Name Role Phone Tracy Olivares MD Primary Care Provider [phone] Reason for Visit * Reason Onset Date Comments Other 07/09/2021 Encounter Details Date Type Department Care Team (Late st Contact Info) Description 07/09/2021 Telephone [facility] Medical [facility] Multispecialty Care [place] [address] [address] [place] [address] [place] [address] [place] [address] [address] [place] [address] Other Social History Tobacco Use [...] Progress Notes * Tracy Olivares MD - 07/09/2021 1:44 PM CDT I called patient to address her concerns about itching. Tells she should have brought the itching to my attention during her recent office visit but totally forgot. Denies any rash. Notes certain woolen clothing worsen her symptoms. This is not the first time she is experiencing this. She was feeling better during her recent office encounter so forgot to mentionit. I advised she watch closely what she uses by way of clothing, lotions and to use emollients during this season. She will take benadryl as needed in addition to pepcid. I have also sent a script for benadryl cream to use as needed. I am waiting for her CMP to follow up on her liver function test result. Liver function test resultdone in December 2020 was normal. Medication list reviewed and does not appear to be caused by any new medications recently started as she was having these symptoms prior to starting her on phentermine and senna. All questions answered. Tracy Olivares MD Internal Medicine [facility], [facility]. * Tracy Olivares MD - 07/09/2021 1:33 PM CDT ----- Message from Parul Arora MA sent at 07/09/2021 11:22 AM CDT ----- ----- Message ----- From: Alexandra Shirley Sent: 07/09/2021 11:20 AM CDT To: Tracy Reagan Nurse * Parul Arora MA - 07/09/2021 11:22 AM CDT Please advise Dr. Olivares * Alexandra Shirley - 07/09/2021 11:17 AM CDT Pt says she is itching bad for about 2 weeks. It's really bad at night. She is taking otc benadryl with no relief [facility] [place] [phone] documented in this encounter Plan of Treatment Upcoming Encounters Date Type Department Care Team (Late st Contact Info) Description 10/03/2024 11:00 AM PETROLEUM PRODUCTION ENGINEER Office Visit [facility] Medical [facility] Pulmonology Specialty Clinic - [address] [address] Nathan Baig MD [address] [place] [address] 11/14/2024 10:20 AM PETROLEUM PRODUCTION ENGINEER Office Visit [facility] Multispecialty Care [place] [address] [address] [place] [address] Tracy Olivares MD [address] [place] [address] documented as of this encounter Visit Diagnoses Diagnosis Pruritus- Primary Unspecified pruritic disorder documented in this encounter Additional Health Concerns Assessment Noted Time PHQ-9 Depression Total Score: 3 07/06/20 21 9:34 AM CDT documented as of this encounter Care Teams Ship'S Master Relationship Specialty Start Date End Date Tracy Olivares MD [address] [place] [address] PCP - General INTERNAL MEDICINE 01/02/21 documented as of this encounter
--- OUTSIDE RECORDS SUMMARY | 2024-09-07 05:26 | XMS_ITS | Encounter Summary ---
Author Organization [facility] - [facility] Address [address] [place] [address]. [place] [id number] [place] [address] Care Team Providers Care Gyroscopic Instrument Mechanic Name Role Phone Tracy Olivares MD Primary Care Provider [phone] Reason for Visit * Reason Comments Sinus Problem Pt has some sinus co ncerns, taste of blood in her mouth, feeling of something stuck in her throat. Follow Up Worsening anterior l eg neuropathy Encounter Details Date Type Department Care Team (Latest Contact Info) Description 05/20/2021 11:20 AM CDT Office Visit [facility] Medical Group Multispecialty Care - [place] [address] [address] [place] [address] Tracy Olivares MD [address] [place] [phone] Sinus Problem (Pt has some sinus concerns, taste of blood in her mouth, feeling of something stuck in her throat. ); Follow Up (Worsening anterior leg neuropathy) Social History Tobacco Use Types Packs/Day Years [...] have Coronavirus / COVID-19? No / Unsure 05/20/2021 11:18 AM CDT documented as of this encounter Last Filed Vital Signs Vital Sign Reading Time Taken Comments Blood Pressure 142/78 05/20/2021 11:28 AM CDT Pulse 79 05/20/2021 11:28 AM CDT Temperature 36.4 ??C (97.5 ??F) 05/20/2021 11:28 AM C DT Respiratory Rate 16 05/20/2021 11:28 AM CDT Oxygen Saturation 98% 05/20/2021 11:28 AM CDT Inhaled Oxygen Concentration - - Weight 129.3 kg (285 lb) 05/20/2021 11:28 AM CDT Height 161.3 cm (5' 3.5 ) 05/20/2021 11:28 AM CD T Body Mass Index 49.69 05/20/2021 11:28 AM CDT documented in this encounter Patient Instructions * Patient Instructions* Tracy Olivares MD - 05/20/2021 11:20 AM CDT Images from the original note were not included. Follow up in 1 week if not better. Patient Education Patient Education Cough Discharge Instructions, Adult About this topic Coughing is an important reflex that helps clear the throat and airways. But, cough is also one of the common signs of illness. A cough can be dry or productive. Acute cough may go away in about 3 weeks or less. A chronic cough can last longer than 3 weeks. A cough most often points to a disease in the throat, airways, or lungs. It may be from an infection or allergies. Ear, heart, or stomach acid problems may cause coughs. Some coughs are from lung damage from smoking or other lung disease. What care is needed at home? ?? Ask your doctor what you need to do when you go home. Make sure you ask questions if you do not understand what the doctor says. This way you will know what you need to do. ?? Take your drugs as ordered by doctor. ?? Try to thin mucus. ? Drink lots of liquids. ? Use a cool-mist humidifier to avoid dry air. ? [place] salt water mist in each nostril. Any normal saline spray works. ?? Stay away from smoke and airborne irritants such as pollen and dust. ?? Take warm, steamy showers to help soothe the cough. ?? Use hard candy or cough drops to soothe sore throat and cough. What follow-up care is needed? Your doctor may ask you to make visits to the office to check on your progress. Be sure to keep these visits. What drugs may be needed? The doctor may order drugs to: ?? Control coughing ?? Get rid of or thin mucus ?? Block allergens if your cough is due to allergies ?? Increase airflow if your cough is due to asthma or COPD ?? Reduce swelling of the airways ?? Reduce stomach acid if your cough is due to stomach acid problems Will physical activity be limited? Your cough may interfere with some of your activities. What changes to diet are needed? Some people feel milk products worsen their sputum production and worsen their cough. There is no proof that this is true. There is no need to reduce milk intake. Honey has been shown to be as effective as the leading plqs-ett-oxnplvt (OTC) drug for calming coughs. Use 1/2 to 1 teaspoon (2.5 mL to 5 mL) of honey as needed. It can thin the secretions and loosen the cough. Never give honey to a child under the age of 1. What can be done to prevent this health problem? ?? Wash your hands often with soap and water for at least 20 seconds, especially after coughing or sneezing. Alcohol-based hand sanitizers also work to kill the virus. ?? If you are sick, cover your mouth and nose with tissue when you cough or sneeze. You can also cough into your elbow. Throw away tissues in the trash and wash your hands after touching used tissues. ?? Clean items and surfaces you most often touch like door handles, remotes, phones, or toys. Wipe them with a disinfectant. This can help reduce the spread of infection. ?? Do not get too close (kissing, hugging) to people who are sick. ?? Do not share towels or hankies with anyone who is sick. ?? Stay away from crowded places. ?? Get a flu shot each year. When do I need to call the doctor? ?? Signs of infection. These include a fever of 100.4??F (38??C) or higher, chills, very bad sore throat, ear or sinus pain, cough, or mucus. ?? Wheezing, chest tightness, lips turn blue with coughing, or other problems with breathing ?? If you have violent coughing episodes ?? If you are losing weight (but not trying to) and have night sweats ?? If you have numbness, tingling, or swelling in your face, lips, tongue, or throat ?? If you have swelling in your legs ?? Coughing up bloody or pink sputum ?? You are not feeling better in 5 to 7 days or you are feeling worse Teach Back: Helping You Understand The Teach [...] condition. ?? I can tell you what I can do to help thin the mucus and ease my cough. ?? I can tell you what I will do if I have wheezing, chest tightness, my lips turn blue with coughing, or I have other trouble breathing. Where can I learn more? [employer] [place] [employer] https://familydoctor.org/vmgez-zxsxtheh-uilbqzvgshswa-nwmp-quf-uvpadnv/ NHS Choices https://www.nhs.uk/conditions/cough/ Last Reviewed Date 2019-10-09 Consumer Information Use and Disclaimer This information [...] right for you. Copyright Copyright ?? 2020 [employer]. and its affiliates and/or licensors. All rights reserved. documented in this encounter Progress Notes * Tracy Olivares MD - 05/20/2021 11:20 AM CDTSummary: Acute visit notes Images from the original note were not included. Internal Medicine Outpatient Progress Note CC: Sinus Problem (Pt has some sinus concerns, taste of blood in her mouth, feeling of something stuck in her throat. ) and Follow Up (Worsening anterior leg neuropathy) HPI: Keegan Amaya is a 65-year-old female who presents for acute visit for concerns about recent cough that is mildly productive of scant sputum that started about a week ago. Patient also notes scratchiness in the throat as well as sore throat. She recently was around one of her grandchildren that came down with strep throat. Denies any fever, chills, chest tightness with cough. Patient also concerned that she recently noticed the taste of blood while swallowing. She was seen at an urgent care and evaluated. Currently not on any antibiotics. Patient concerned and therefore decided to report at today's visit. Patient will also like to discuss her neuropathy. Still has ongoing tingling on the anterior aspectof her right leg. Currently on gabapentin 100 mg 3 times daily. She tells me dose was previously working but she has not noticed that this dose is currently not working for her. Denies any recent falls or concerns for falls at this time. Currently patient is wearing compression stockings which helps some. Problem List Patient Active Problem List Diagnosis [...] Outpatient Medications Marked as Taking for the 05/20/21 encounter (Office Visit) with Tracy Olivares MD [...] day for 7 days. 1260 mL ??? escitalopram 10 MG tablet Take 1 tablet (10 mg total) by mouth daily. 90 tablet 1 ??? gabapentin 100 MG capsule [...] weight loss. HENT: Positive for congestion and sore throat. Negative for ear discharge, ear pain, hearing loss, nosebleeds, sinus pain and tinnitus. Eyes: Negative. Respiratory: Positive for cough and sputum production. Negative for hemoptysis, shortness of breath, wheezing and stridor. Cardiovascular: Negative. Gastrointestinal: Negative. Genitourinary: Negative. Musculoskeletal: Negative. Skin: Negative. Neurological: Negative for dizziness, tingling, tremors, sensory change, speech change, focal weakness, seizures, loss of consciousness, weakness and headaches. Psychiatric/Behavioral: Negative. Objective: Filed Vitals: 05/20/21 1128 BP: 142/78 Pulse: 79 Resp: 16 Temp: 97.5 ??F (36.4 ??C) TempSrc: Temporal SpO2: 98% Weight: 129.3 kg (285 lb) Height: 5' 3.5 (1.613 m) Body mass index is 49.69 kg/m??. General alert, cooperative, no distress HEENT EOM's intact. Oral mucosa normal. Nasal septum is midline. Mild redness in posterior pharynx.No exudates whitish film. No sinus tenderness. Mild post nasal drip. Neck Supple, symmetrical, trachea midline, no adenopathy, [...] atraumatic, no cyanosis, 2+ pedal pulses, no edema. Has stockings on the right lower extremity. No obvious swelling, tenderness. Mild numbness along anterior lateral aspect ofright leg. Skin Skin color, texture, turgor normal. No rashes or lesions appreciated. Neurologic No focal deficits, motor strength is grossly normal and symmetric Psych Normal mood and affect MSK No synovitis, no bony tenderness, no joint effusions Lymph No cervical or supraclavicular adenopathy Assessment and Plan: Encounter Diagnose(s) ICD-10-CM ICD-9-CM SNOMED CT(R) 1. Acute pharyngitis, unspecified etiology J02.9 462 ACUTE PHARYNGITIS RAPID STREP A amoxicillin-clavulanate (AUGMENTIN) 875-125 MG tablet methylPREDNISolone, KAREN, 4 MG tablet CULTURE,THROAT/NOSE/NASOPHARYNX CULTURE,THROAT/NOSE/NASOPHARYNX CULTURE STREP A (MG/SJS/SMD Only) CULTURE STREP A (MG/SJS/SMD Only) Dextromethorphan HBr 10 MG/15ML Syrup Cetirizine HCl (ZYRTEC ALLERGY) 10 MG Cap 2. Idiopathic peripheral neuropathy G60.9 356.9 IDIOPATHIC PERIPHERAL NEUROPATHY gabapentin 100 MG capsule 1. Acute pharyngitis, unspecified etiology - viral vs bacterial - centor score of 1 with 5-10% probability of strep - RAPID STREP A (negative) - amoxicillin-clavulanate (AUGMENTIN) 875-125 MG tablet; Take 1 tablet (875 mg total) by mouth 2 (two) times daily. Dispense: 14 tablet; Refill: 0 - methylPREDNISolone, KAREN, 4 MG tablet; 6 TABLETS ON DAY ONE, 5 TABLETS DAY TWO, 4 TABLETS DAY THREE, 3 TABLETS DAY FOUR, 2 TABLETS DAY FIVE, AND 1 TABLET DAY SIX Dispense: 1 each; Refill: 0 - CULTURE,THROAT/NOSE/NASOPHARYNX; Future - CULTURE,THROAT/NOSE/NASOPHARYNX - CULTURE STREP A (MG/SJS/SMD Only); Future - CULTURE STREP A (MG/SJS/SMD Only) - Dextromethorphan HBr 10 MG/15ML Syrup; Take 15 ml three a day for 7 days. Dispense: 1260 mL - Cetirizine HCl (ZYRTEC ALLERGY) 10 MG Cap; Take 10 mg by mouth daily. Dispense: 30 capsule - follow up in 1 week if no improvement - Patient with likely viral vs bacterial URI. Will give symptomatic care. Discussed sx care of fluids, rest, and good hydration. Patient given instructions on their usage and to return to clinic if symptoms do not improve, new fever after 7 days or symptoms longer than 10 days. Patient expressed und erstanding of these instructions. 2. Idiopathic peripheral neuropathy - still having ongoing symtoms - increase to gabapentin 100 MG capsule; Take 2 capsules (200 mg total) by mouth 3 (three) times daily. Dispense: 90 capsule; Refill: 3 - will continue to address in subsequent visits - if ongoing concerns despite optimal therapy will consider nerve conduction studies Counseling given: Yes Comment: by Dr Olivares [...] was at least in part performed using [employer] and there may be some inherent flaws in this computational geneticist due to the nature of this program. Tracy Olivares MD Internal Medicine [facility], [facility]. documented in this encounter Plan of Treatment Upcoming Encounters Date Type Department Care Team (Late st Contact Info) Description 10/03/2024 11:00 AM PAYROLL AND BENEFITS SPECIALIST Office Visit [facility] Medical [facility] Pulmonology Specialty Clinic - [address] [address] Nathan Baig MD [address] [address] 11/14/2024 10:20 AM PAYROLL AND BENEFITS SPECIALIST Office Visit [facility] Multispecialty Care [place] [address] [address] [place] [address] Tracy Olivares MD [address] [address] documented as of this encounter Procedures Procedure Name Priority Date/Time Associated Diagnosis Comments CULTURE STREP A Routine 05/20/2021 12:07 PM CDT Acute pharyngitis, unspecified etiology CULTURE THROAT ALL ORG Routine 05/20/2021 12:07 PM CDT Acute pharyngitis, unspecified etiology RAPID STREP A Routine 05/20/2021 Acute pharyngitis, unspecified etiology documented in this encounter Results * CULTURE STREP A (MG/SJS/SMD Only) (05/20/2021 12:07 PM CDT) THROAT CULTURE GROUP A STREP SEE NOTE [facility] Comment: ??CULTURE, THROAT, SPECIAL W/GRP A STREP SUSCEPT. ?Micro Number: ?[id number] ??Test Status: ? Final ??Specimen Source: ?? Throat ??Specimen Quality: ??Adequate ??Result: ?No oropharyngeal pathogens recovered. STRUCTURE OF ANTERIOR PORTION OF NECK / Unknown 05/20/2021 12:07 PM CDT 05/21/2021 3:14 AM CDT Tracy Olivares MD MICROBIOLOGY - GENERAL ORDERABLE S Final Result Performing Organization Address [facility] de Phone Number [facility] [address] [place] [address] * CULTURE,THROAT/NOSE/NASOPHARYNX (05/20/2021 12:07 PM CDT) CULTURE RESULT SEE NOTE [facility] Comment: ??CULTURE, THROAT ?Micro Number: ?[id number] ??Test Status: ? Final ??Specimen Source: ?? Throat ??Specimen Quality: ??Adequate ??Result: ?No oropharyngeal pathogens recovered. STRUCTURE OF ANTERIOR PORTION OF NECK / Unknown 05/20/2021 12:07 PM CDT 05/21/2021 3:13 AM CDT Tracy Olivares MD MICROBIOLOGY - GENERAL ORDERABLE S Final Result Performing Organization Address [facility] de Phone Number [facility] [employer] [facility] [facility] [address] [place] [address] * RAPID STREP A (05/20/2021) RAPID STREP TEST NEGATIVE NEGATIVE [id number], [place] Internal Control: VALID VALID [id number], [place] STRUCTURE OF ANTERIOR PORTION OF NECK / Unknown 05/20/2021 us Tracy Olivares MD MICROBIOLOGY - GENERAL ORDERABLE S Final Result Performing Organization Address [facility] de Phone Number [id number], [place] [address] [place] [address], documented in this encounter Visit Diagnoses Diagnosis Acute pharyngitis, unspecified etiology- Primary Idiopathic peripheral neuropathy Unspecified hereditary and idiopathic peripheral neuropathy documented in this encounter Additional Health Concerns Assessment Noted Time PHQ-9 Depression Total Score: 9 04/14/20 21 10:21 AM CDT documented as of this encounter Care Teams Gyroscopic Instrument Mechanic Relationship Specialty Start Date End Date Tracy Olivares MD [address] [address] PCP - General INTERNAL MEDICINE 01/02/21 documented as of this encounter
--- OUTSIDE RECORDS SUMMARY | 2024-09-07 05:26 | XMS_ITS | Encounter Summary ---
Author Organization [facility] Address [address] [place] [address]. [place], [place] [address] [place] [address] Care Team Providers Care Reed Cleaner Name Role Phone Tracy Olivares MD Primary Care Provider Encounter Details Date Type Department Care Team (Latest Contact Info) Description 03/03/2021 Travel Social History Tobacco Use Types Packs/Day [...] st Contact Info) Description 10/03/2024 11:00 AM GROUP MANAGER Office Visit [facility] Group Pulmonology Specialty Clinic [place] [address] [place] [address] Nathan Baig MD [address] [place] [address] 11/14/2024 10:20 AM GROUP MANAGER Office Visit [facility] Medical Group Multispecialty Care [place] [address] [address] [place] [address] [place] [address] [place] [address] documented as of this encounter Visit Diagnoses Not on filedocumented in this encounter Additional Health Concerns Assessment Noted Time PHQ-9 Depression Total Score: 2 03/03/20 21 11:26 AM CDT documented as of this encounter Care Teams Reed Cleaner Relationship Specialty Start Date End Date Tracy Olivares MD [address] [place] [address] PCP - General INTERNAL MEDICINE 01/02/21 documented as of this encounter
--- OUTSIDE RECORDS SUMMARY | 2024-09-07 05:26 | XMS_ITS | Encounter Summary ---
Author Organization [facility] Address [address] [place] [address]. [place], [place] [address] [place] [address] Care Team Providers Care Regional Commercial Sales Manager Name Role Phone Tracy Olivares MD Primary Care Provider [phone] Encounter Details Date Type Department Care Team (Late Contact Info) Description 05/08/[address] [facility] Physical Therapy [address] [address] Darlene Rodgers, PT Social History Tobacco Use Types Packs/Day Years [...] st Contact Info) Description 10/03/2024 11:00 AM INTELLECTUAL PROPERTY COUNSEL Office Visit [facility] Medical Group Pulmonology Specialty Clinic [place] [address] [facility] [address] [address] Nathan Baig MD [address] [address] 11/14/2024 10:20 AM INTELLECTUAL PROPERTY COUNSEL Office Visit [facility] Medical Group Multispecialty Care [place] [address] [address] [place] [address] Tracy Olivarse MD [address] [place] [address] documented as of this encounter Visit Diagnoses Not on filedocumented in this encounter Additional Health Concerns Assessment Noted Time PHQ-9 Depression Total Score: 9 04/14/20 10:21 AM CDT documented as of this encounter Care Teams Regional Commercial Sales Manager Relationship Specialty Start Date End Date Tracy Olivares MD [address] [place] [address] PCP - General INTERNAL MEDICINE 01/02/21 documented as of this encounter
--- OUTSIDE RECORDS SUMMARY | 2024-09-07 05:26 | XMS_ITS | Encounter Summary ---
Author Organization [facility] Address [address] [place] [address]. [address] [address] Care Team Providers Care Gusset Maker Name Role Phone Tracy Olivares MD Primary Care Provider [phone] Reason for Visit * Reason Comments Follow Up Pt is here for a fol low up on constipation and phentermine. Encounter Details Date Type Department Care Team (Latest Contact Info) Description 08/03/2021 9:20 AM DIRECTOR AUDIENCE MARKETING Office Visit [facility]ispec[facility]ty Care - [address] [address] [address] [place] [address] Tracy Olivares MD [address] [place] [address] [address] [place] [address] Follow Up (Pt is here for a follow up on constipation and phentermine.) Social History Tobacco Use Types Packs/Day Years [...] COVID-19? No / Unsure 08/03/2021 9:18 AM DIRECTOR AUDIENCE MARKETING documented as of this encounter Last Filed Vital Signs Vital Sign Reading Time Taken Comments Blood Pressure 145/88 08/03/2021 9:24 AM DIRECTOR AUDIENCE MARKETING Pulse 88 08/03/2021 9:24 AM DIRECTOR AUDIENCE MARKETING Temperature 36.4 ??C (97.6 ??F) 08/03/2021 9:24 AM CS T Respiratory Rate 16 08/03/2021 9:24 AM DIRECTOR AUDIENCE MARKETING Oxygen Saturation 100% 08/03/2021 9:24 AM DIRECTOR AUDIENCE MARKETING Inhaled Oxygen Concentration - - Weight 130.2 kg (287 lb) 08/03/2021 9:24 AM DIRECTOR AUDIENCE MARKETING Height 165.9 cm (5' 5.3 ) 08/03/2021 9:24 AM DIRECTOR AUDIENCE MARKETING Body Mass Index 47.32 08/03/2021 9:24 AM DIRECTOR AUDIENCE MARKETING documented in this encounter Patient Instructions * Patient Instructions* Tracy Olivares MD - 08/03/2021 9:20 AM DIRECTOR AUDIENCE MARKETING Images from the original note were not included. Please schedule for your Annual wellness visit. Follow up with me in 4 weeks. Patient Education Patient Education Weight Loss Diet About this topic There are many trendy weight loss diets that are popular today. Many of these diets can end up being more harmful than helpful. The healthiest way to lose weight is to burn more calories than you eat. A weight loss diet should help you have a healthy view of eating. It is NOT healthy to stop eating to try and lose weight. A good diet plan will help you cut down your food intake and make healthy choices. A healthy weight loss goal is 1 to 2 pounds (0.5 to 1 kg) per week. Reducing calories in your diet,burning calories through exercise, or both can help you lose weight. Combining a healthy diet with regular physical activity can help you get the best results. To cut calories in your diet you can: ?? Switch from whole milk to 1% or skim milk. ?? Switch from regular cheese to low-fat or fat-free cheese. ?? Use healthier condiment choices: ? Fat-free or low-fat sour cream or salad dressings ? [place] butter ? Diet syrups or jellies over regular ?? Try frozen yogurt as a dessert rather than eating ice cream. ?? Skip the chips. Snack on carrots, vegetables, or fruit. If chips are a favorite of yours, try the baked style and watch portion size. ?? Eat grilled, roasted, boiled, broiled, or baked meats. Avoid deep-frying. Choose skinless poultry, lean red meat, lean cuts of pork, and fish for good protein sources. ?? Try flavored no-calorie patel. Do not drink soda and juices that have many calories. ?? Choose fruit instead of sweets. General ?? Eating smaller meals more often may be helpful. This will keep you from overeating at your next meal. Also, eating meals slowly helps you feel full faster. ?? If eating 3 meals is a part of your lifestyle, choose more lean proteins and higher fiber foods to fill you up at each meal. ?? Do not skip meals. Most often if you skip a meal, you eat too much at the next meal. ?? Eat smaller portions. Use a smaller plate or bowl for meals, and when you are eating out, eat half and take the rest home. ?? Plan ahead. Plan your meals and grocery list before going to the store. Planning will keep you from getting meals from restaurants. ?? Do not go to the grocery store hungry. You are more likely to buy snacks that are not good for you. ?? Portion out snacks. When you are having a snack, instead of grabbing the whole bag, portion a small amount out to give yourself a stopping point. ?? Drink water before and after your meals to help fill you up without the calories. ?? When eating starchy foods, choose whole-grain products. These have a lot of fiber which will make you feel full. Fiber also helps lower cholesterol and helps with bowel function. ?? If you need a helpful start, ask your doctor to send you to a dietitian for weight loss help. What will the results be? Losing excess weight will make your whole body healthier. You will have more energy for your daily activities and lower your risk for health problems. What lifestyle changes are needed? Stay active. Eating healthy is not always enough to lose weight. Burning calories by exercising is a big part of weight loss. What foods are good to eat? The yoo is to watch your portion sizes. It is best to choose foods that are lower in fat and calories. ?? Choose lean meats: ? Boneless, skinless chicken breast ? Pork loin ? 90% lean beef ? Lean turkey meat ? Fresh fish (not fried) ?? Choose low-fat dairy products: ? 1% or skim milk ? [place] butter or margarine ? Low-fat or fat-free cheese ? Frozen yogurt or low-calorie ice cream ?? Choose fresh fruits, vegetables, beans and lentils, and whole wheat products more often. ?? Choose water to drink more often. Drink diet or no-calorie beverages when you want something other than water. Aim to get your calories from the foods you eat. ?? Choose smart snacks: ? Fruits ? Vegetables ? Low-fat or nonfat yogurt ? Low-fat or no-fat cheese, such as cottage cheese ? Unsalted nuts ? Hard-boiled egg ? Hummus ? Guacamole ? Natural peanut butter ? Popcorn with no butter ? use pepper, garlic, or another spice to taste ? Whole grain crackers What foods should be limited or avoided? Limit high-fat, high-sodium, and high-calorie foods like: ?? Fried foods ?? Processed meats ?? Whole-fat dairy products ?? Candy, cookies, chips, pastries ?? Sausage, mckay, any full-fat meats ?? Soda, juice ?? Beer, wine, and mixed drinks (alcohol) Will there be any other care needed? What do I do first before trying to lose weight? ?? Talk to your doctor and dietitian to see if you need to lose weight. Work with them to set your weight loss goals. ?? If you have a chronic illness, such as high blood sugar or high blood pressure, ask a doctor or dietitian what diet and exercise is right for you. ?? Ask your doctor about how much you are able to exercise and what type of exercise is good for you. Helpful tips ?? Keep a food journal to help keep you on track. ?? Join a support group. Tips for burning calories: ?? If your workplace is near your house, choose to walk or bike to work instead of driving. ?? Take 20-minute walks each day. Walk around during your lunch break. You will not only burn calories, but will raise your energy for the rest of the day. ?? Take the stairs over the elevator. ?? Join a gym or exercise class with a friend. ?? Try to exercise 30 minutes a day for overall health. Three 10-minute sessions work too. Aim for 60 to 90 minutes a day to lose weight. ?? Drink lots of water before, during, and after exercise. Where can I learn more? Academy of Nutrition and Dietetics https://www.eatright.org/health/weight-loss/advn-spgyjq-tdm-your-weight/back-to- nnrdbv-sit-xprtxfd-weight-loss Centers for Disease Control and Prevention https://www.cdc.gov/healthyweight/healthy_eating/index.html Familydoctor.org https://familydoctor.org/hvlwccjzd-dqscie-emwp-tyhd-sjjl-zjn-diets/ NHS https://www.nhs.uk/live-well/healthy-weight/49-eglz-dk-hukc-qxk-durg-weight/?tab name=pdy-kno-wsry-weight Last Reviewed Date 2021-03-05 Consumer Information Use and Disclaimer This information [...] right for you. Copyright Copyright ?? 2020 [employer] and its affiliates and/or licensors. All rights reserved. [employer]OR AUDIENCE MARKETING [employer]ET[employer] documented in this encounter Progress Notes * Tracy Olivares MD - 08/03/2021 9:20 AM CSTSummary: Follow-up notes Images from the original note were not included. Internal Medicine Outpatient Progress Note CC: Follow Up (Pt is here for a follow up on constipation and phentermine.) HPI: Keegan Amaya is a 66-year-old female who presents for 4-week follow-up for weight loss medication and constipation. Patient was seen about 4 weeks ago at which time weight loss medication with phentermine was initiated. This is his second visit for phentermine follow-up. She is not tolerating her phentermine. Complains of nausea. Weight is down from 289 pounds to 287pounds. Of note, patient with underlying history of chronic low back pain currently on tramadol and tizanidine. She has just started physical therapy. Denies any concerns for shortness of breath, palpitations, chest tightness or fatigue on exertion. Patient also was seen for concerns for constipation. Patient already had initiated magnesium and MiraLAX with some benefit. Senna added to patient's prescriptions. Of note, patient with underlining history of hemorrhoids for which she has been using Preparation H which helps with symptoms. Up-to-date with colonoscopies. No concerns for melena or blood in stool. Patient currently admits her symptoms are improving. Problem List Patient Active Problem List Diagnosis [...] Outpatient Medications Marked as Taking for the 08/03/21 encounter (Office Visit) with Tracy Olivares MD Medication Sig Dispense Refill ??? albuterol sulfate HFA 108 (90 Base) MCG/ACT inhaler Inhale 2 puffs into the lungs every 4 (four) hours as needed. 18 g 5 ??? aspirin 81 MG tablet ??? ATORVASTATIN 20 MG tablet TAKE 1 TABLET BY MOUTH NIGHTLY AT BEDTIME 90 tablet 1 ??? Azelastine HCl 0.15 % Solution azelastine 205.5 mcg (0.15 %) nasal spray SPRAY 2 SPRAY(S) TWICEA DAY BY INTRANASAL ROUTE FOR 30 DAYS. 30 mL 5 ??? Cetirizine HCl (ZYRTEC ALLERGY) 10 MG Cap Take 10 mg by mouth daily. 30 capsule ??? diphenhydrAMINE (BENADRYL ALLERGY) 25 MG tablet Take 1 tablet (25 mg total) by mouth 2 (two) times daily as needed for Itching. 30 tablet 0 ??? diphenhydrAMINE-zinc (BENADRYL EXTRA STRENGTH) 2-0.1 % [...] DAY WITH BREAKFAST 90 tablet 1 ??? omeprazole 20 MG capsule Take 1 capsule (20 mg total) by mouth daily. 90 capsule 1 ??? ONETOUCH VERIO test strip ??? rOPINIRole 0.5 MG tablet Take 1 tablet (0.5 mg total) by mouth nightly at bedtime. 90 tablet 2 ??? semaglutide (OZEMPIC 0.25/0.5 MG/DOSE) 2 MG/1.5ML [...] Respiratory: Negative. Cardiovascular: Negative. Gastrointestinal: Positive for heartburn and nausea. Negative for abdominal pain, blood in stool, constipation, diarrhea, melena and vomiting. Genitourinary: Negative. Musculoskeletal: Negative. Skin: Negative. Neurological: Negative. Psychiatric/Behavioral: Negative. Objective: Filed Vitals: 08/03/21 0924 BP: 145/88 Pulse: 88 Resp: 16 Temp: 97.6 ??F (36.4 ??C) TempSrc: Temporal SpO2: 100% Weight: 130.2 kg (287 lb) Height: 5' 5.3 (1.659 m) Body mass index is 47.32 kg/m??. General alert, cooperative, no distress HEENT [...] (BMI) of 45.0 to 49.9 in adult ([facility]) E66.01 278.01 SEVERE OBESITY Z68.42 V85.42 2. Other constipation K59.09 564.09 CONSTIPATION Senna 8.6 MG tablet 3. Chronic bilateral low back pain with bilateral sciatica M54.42 724.2 CHRONIC LOW BACK PAIN traMADol 50 MG tablet M54.41 724.3 G89.29 338.29 4. Chronic pain of right knee M25.561 719.46 PAIN OF KNEE REGION traMADol 50 MG tablet G89.29 338.29 5. Type 2 diabetes mellitus with hyperglycemia, without long-term current use of insulin ([facility]) E11.65 250.00 TYPE 2 DIABETES MELLITUS semaglutide (OZEMPIC 0.25/0.5 MG/DOSE) 2 MG/1.5ML injection (PEN) 790.29 1. Class 3 severe obesity due to excess calories without serious comorbidity with body mass index (BMI) of 45.0 to 49.9 in adult ([facility]) - -Pt has elevated weight with BMI Body mass index is 47.32 kg/m??., and will need to work hard on reducing carbohydrates and total calories. -You may use the free smart phone apps such as [employer] to help track calories and try to [...] week and 5 pounds per month. - starting patient on Ozempic as noted below 2. Other constipation - Senna 8.6 MG tablet; Take 1 tablet (8.6 mg total) by mouth daily as needed for Constipation. Dispense: 30 tablet; Refill: 1 - continue with Miralax and Magnesium as needed 3. Chronic bilateral low back pain with bilateral sciatica - Continue with physical therapy - continue with back strengthening exercises and heating pad and lidocaine patches as needed - continue traMADol 50 MG tablet; Take 1 tablet (50 mg total) by mouth daily as needed for Pain. Indications: Chronic Pain Dispense: 30 tablet; Refill: 0 4. Chronic pain of right knee - Referred to physical therapy - continue with traMADol 50 MG tablet; Take 1 tablet (50 mg total) by mouth daily as needed for Pain. Indications: Chronic Pain Dispense: 30 tablet; Refill: 0 5. Type 2 diabetes mellitus with hyperglycemia, without long-term current use of insulin ([facility]) - On Metformin, not controlled - start semaglutide (OZEMPIC 0.25/0.5 MG/DOSE) 2 MG/1.5ML injection (PEN); Inject 0.5 mg into the skin every 7 days. Dispense: 2 mL; Refill: 0 Counseling given: Yes Comment: by [...] was at least in part performed using [employer] speak and there may be some inherent flaws in this siene maker due to the nature of this program. Tracy Olivares MD Internal Medicine [facility], [facility]. [employer] documented in this encounter Plan of Treatment Upcoming Encounters Date Type Department Care Team (Late st Contact Info) Description 10/03/2024 11:00 AM DIRECTOR AUDIENCE MARKETING Office Visit [facility] - [address] [address] Nathan Baig MD [address] [place] [address] 11/14/2024 10:20 AM DIRECTOR AUDIENCE MARKETING Office Visit [facility] Multispecialty Care - [address] [place] [address] [address] [place] [address] Tracy Olivares MD [facility] [address] documented as of this encounter Visit Diagnoses Diagnosis Class 3 severe obesity due to excess calories without serious comorbidity with body mass index (BMI) of 45.0 to 49.9 in adult ([facility] HHS/HCC)- Primary Other constipation Chronic bilateral low back pain with bilateral sciatica Chronic pain of right knee Type 2 diabetes mellitus with hyperglycemia, without long-term current use of insulin ([facility] HHS/HCC) documented in this encounter Additional Health Concerns Assessment Noted Time PHQ-9 Depression Total Score: 3 07/06/20 9:34 AM CDT documented as of this encounter Care Teams Gusset Maker Relationship Specialty Start Date End Date Tracy Olivares MD [address] [place] [id number] PCP - General INTERNAL MEDICINE 01/02/21 documented as of this encounter
--- OUTSIDE RECORDS SUMMARY | 2024-09-07 05:26 | XMS_ITS | Encounter Summary ---
Author Organization [facility] Address [address] [place] [address]. [place] [id number] Care Team Providers Care Straight Knife Machine Cutter Name Role Phone Tracy Olivares MD Primary Care Provider [phone] Reason for Visit * Reason Onset Date Comments Results 05/04/2021 Encounter Details Date Type Department Care Team (Late st Contact Info) Description 05/04/2021 Telephone [facility] Multispecialty Care - [place] [address] [address] [address] [place] [address] Tracy Olivares MD [address] [place] [address] [address] [place] [address] Results Social History Tobacco Use [...] Progress Notes * Tracy Olivares MD - 05/04/2021 3:25 PM CDT I received patient's bone scan done on March 17, 2021. Results showed normal bone scan and bone mass. Follow-up: Consider repeating the study in 5 years if there is some new clinical indication. Results scanned into media tab Tracy Olivares MD Internal Medicine [facility], [facility]. documented in this encounter Plan of Treatment Upcoming Encounters Date Type Department Care Team (Late st Contact Info) Description 10/03/2024 11:00 AM MACHINIST HELPER MARINE Office Visit [facility] - [address] [address] Nathan Baig MD [address] [place] [phone] 11/14/2024 10:20 AM MACHINIST HELPER MARINE Office Visit [facility] Multispecialty Care [place] [address] [address] [place] [address] Tracy Olivares MD [facility] [address] [address] documented as of this encounter Visit Diagnoses Not on filedocumented in this encounter Additional Health Concerns Assessment Noted Time PHQ-9 Depression Total Score: 9 04/14/20 21 10:21 AM CDT documented as of this encounter Care Teams Straight Knife Machine Cutter Relationship Specialty Start Date End Date Tracy Olivares MD [address] [place] [id number] PCP - General INTERNAL MEDICINE 01/02/21 documented as of this encounter
--- OUTSIDE RECORDS SUMMARY | 2024-09-07 05:26 | XMS_ITS | Encounter Summary ---
Author Organization [facility] - [facility] Address [address] [place] [address]. [place], [place] [address] [place] [address] Care Team Providers Care Reconstructive Dentist Name Role Phone Tracy Olivares MD Primary Care Provider [phone] Reason for Visit * Reason Comments Back Pain c/o of severe lower back pain that started tuesday night. She states the pain is getting worse and is also radiating into her legs while she is lying down. Encounter Details Date Type Department Care Team (Latest Contact Info) Description 04/14/2021 10:00 AM CDT Office Visit [facility] Multispecialty Care - [address] [place] [address] Suzan Servin, GLORIA Back Pain (c/o of severe lower back pain that started tuesday night. She states the pain is getting worse and is also radiating into her legs while she is lying down.) Social History Tobacco Use Types Packs/Day Years [...] Sign Reading Time Taken Comments Blood Pressure 110/60 04/14/2021 9:49 AM CDT Pulse 72 04/14/2021 9:49 AM CDT Temperature 36.7 ??C (98.1 ??F) 04/14/2021 9:49 AM CD T Respiratory Rate 18 04/14/2021 9:49 AM CDT Oxygen Saturation 98% 04/14/2021 9:49 AM CDT Inhaled Oxygen Concentration - - Weight 133.8 kg (295 lb) 04/14/2021 9:49 AM CDT Height 161.3 cm (5' 3.5 ) 04/14/2021 9:49 AM CDT Body Mass Index 51.44 04/14/2021 9:49 AM CDT documented in this encounter Patient Instructions * Patient Instructions* Suzan Servin NP - 04/14/2021 10:00 AM CDT Images from the original note were not included. Patient Education Patient Education Sciatica Discharge Instructions About this topic You may have pain, weakness, numbness, and tingling that runs from your buttocks down the back of your leg to your feet. This is called sciatica. It happens when something is pressing on or botheringthe sciatic nerve. This large nerve starts in your lower back. It runs all the way down the back ofyour leg. Sciatica is a sign of some other health problem that involves the nerve. It most often happens on just one side. Most of the time, sciatica will get better without needing surgery. Treating the health problem that is causing the pain can make this condition go away. What care is needed at home? ?? Ask the doctor what you need to do when you go home. Make sure you ask questions if you do not understand what the doctor says. This way you will know what to do. ?? Take drugs as ordered by your doctor. ?? Rest. Avoid activities that make the problem worse. ?? Ice may help with pain. Place an ice pack or a bag of frozen peas wrapped in a towel over the painful part. Never put ice right on the skin. Do not leave the ice on more than 10 to 15 minutes at atime. ?? If your doctor tells you to use heat, put a heating pad on your lower back or neck for no more than 20 minutes at a time. Never go to sleep with a heating pad on as this can cause [place]. Sometimesalternating heat and ice can lessen pain. ?? If you are having trouble walking, use a cane, walker, or crutches to help you get around and lower your chances of falling or getting hurt. What follow-up care is needed? ?? Your doctor may ask you to make visits to the office to check on your progress. Be sure to keep these visits. ?? Your doctor may send you to physical therapy (PT) or a chiropractor for treatments to lessen pain and to learn the right exercises to do. ?? Your doctor may also send you to a neurologist. This is a doctor who specializes in treating nerve problems. ?? If you do not get better with treatment, your doctor may need to send you to an orthopedic surgeon. What drugs may be needed? The doctor may order drugs to: ?? Help with pain and swelling The doctor may give you a shot of an anti-inflammatory drug called a corticosteroid. This will helpwith swelling. Talk with your doctor about the risks of this shot. Will physical activity be limited? You may need to rest for a while. You should not do physical activity that makes your health problem worse. Talk to your doctor if you run, work out, or play sports. You may not be able to do those things until your health problem get better. What problems could happen? ?? Long-term back pain ?? Loss of feeling or movement in the legs or feet ?? Weight gain, less muscle strength and flexibility, weaker bones ?? Need for surgery ?? Infection ?? Loss of bowel and bladder function What can be done to prevent this health problem? ?? Stay active and work out to keep your muscles strong and flexible. Warm up slowly and stretch before you exercise. ?? Use good posture. ?? Use proper ways to lift and bend: ? Spread your feet apart so you have a good base of support. Then, bend with your knees when you order picker/assembler something from the ground. ? When lifting and moving an object, keep your back straight. Keep the object as close to your bodyas possible. Do not twist. Instead, move your feet to the direction you are going. ?? Take breaks often when seated for long periods of time. Get up and walk around from time to time. ?? If you stand for long periods, put one leg up on a small stool for a while. Then, change legs. ?? If you sleep on your side, put a pillow in between your knees to keep your back and legs in a good position. ?? Use good supportive footwear. Avoid high heels. ?? Keep a healthy weight. When do I need to call the doctor? ?? Redness or swelling on the back or spine ?? Pain with passing urine or blood in the urine ?? Loss of control of urine or stools ?? More pain or numbness in your leg or foot ?? Health problem is not better or you are feeling worse Helpful tips ?? Water exercise or biking may help you stay in shape without making your problem worse. ?? The right exercises for sciatica will depend on what the problem is that is causing the pain. Talk with your doctor about which stretches are best for you. ?? Stretching may be slightly painful but should never give sharp pains. If it is painful, ease up until you only feel mild stretching. All stretching exercises should be held for 20 to 30 seconds beatris most helpful. Repeat 2 to 3 times. Do 2 to 3 times each day to get the best results. ? Lie on your back. yard supervisor the knee of the painful side until your foot is even with the other knee. Keeping your shoulders down, slowly drop the bent knee across the other leg. Do this until you feel a stretch in your buttocks. ? Lie on your back with your knees bent and feet flat on the ground. If the problem is on your right leg, cross your right ankle onto your left thigh just above the knee. Reach your right arm in between your thighs and clasp your hands around your left thigh. Slowly pull the left thigh up towards your chest until you feel stretching in the right buttock. Teach Back: Helping You Understand The Teach [...] what I will do if I have more pain or numbness in my leg or foot. Where can I learn more? [employer] [employer] https://familydoctor.org/condition/piriformis-syndrome/ [employer] [place] https://www.healthnavigator.org.nz/health-a-z/s/sciatica/ [employer] [place] https://www.nhs.uk/conditions/sciatica/ Last Reviewed Date 2020-06-06 Consumer Information Use and Disclaimer This information [...] right for you. Copyright Copyright ?? 2020 [employer]. and its affiliates and/or licensors. All rights reserved. Depo Medrol injected 40 mg IM today Prednisone 40mg daily x5 days Toradol 60mg IM today Follow up in [address] Olivares documented in this encounter Progress Notes * Suzan Servin NP - 04/14/2021 10:00 AM CDT Reason for Visit: Back Pain (c/o of severe lower back pain that started tuesday night. She states the pain is getting worse and is also radiating into her legs while she is lying down.) History of Present Illness: Pt. Here with complaints of low back pain that radiates down right leg. States that it started on Tuesday and got better but then flared back up again this morning. ROS: Review of Systems Constitutional: Negative. Negative for fatigue and fever. HENT: Negative. Eyes: Negative. Respiratory: Negative. Negative for cough and shortness of breath. Cardiovascular: Negative. Negative for chest pain. Gastrointestinal: Negative for abdominal pain. Endocrine: Negative. Genitourinary: Negative. Musculoskeletal: Positive for arthralgias and back pain (right sciatica pain). Skin: Negative. Allergic/Immunologic: Negative. Negative for environmental allergies. Neurological: Negative. Hematological: Negative for adenopathy. Psychiatric/Behavioral: Negative. Negative for suicidal ideas (Denies). Medications: Current Outpatient Medications: ??? albuterol sulfate HFA 108 (90 Base) MCG/ACT inhaler, Inhale 2 puffs into the lungs every 4 (four) hours as needed., Disp: 18 g, Rfl: 5 ??? aspirin 81 MG tablet, , Disp: , Rfl: ??? Azelastine HCl 0.15 % Solution, azelastine 205.5 mcg (0.15 %) nasal spray SPRAY 2 SPRAY(S) TWICE A DAY BY INTRANASAL ROUTE FOR 30 DAYS., Disp: , Rfl: ??? escitalopram 10 MG tablet, Take 1 tablet (10 mg total) by mouth daily., Disp: 90 tablet, Rfl: 1 ??? Losartan Potassium-HCTZ 100-12.5 MG Tab, Take 1 tablet by mouth daily., Disp: 90 tablet, Rfl: 1 ??? omeprazole 20 MG capsule, Take 20 mg by mouth daily., Disp: , Rfl: ??? ONETOUCH VERIO test strip, , Disp: , Rfl: ??? predniSONE 20 MG tablet, Take 2 tablets (40 mg total) by mouth daily for 5 days., Disp: 10 tablet, Rfl: 0 ??? TIZANIDINE 4 MG tablet, TAKE 1/2 TABLET AT BEDTIME, Disp: 45 tablet, Rfl: 1 ??? TRELEGY 100-62.5-25 MCG/INH AEROSOL POWDER, BREATH ACTIVATED, Inhale 1 puff into the lungs daily., Disp: 60 each, Rfl: 2 ??? Vitamin D, Cholecalciferol, 50 MCG (1999 UT) Cap, Take 1,000 Units by mouth daily., Disp: 30 capsule, Rfl: ??? rOPINIRole 0.5 MG tablet, Take 0.5 tablets (0.25 mg total) by mouth nightly at bedtime., Disp: 30 tablet, Rfl: 1 Allergies Allergen Reactions ??? Propoxyphene Unknown Past Medical History: Diagnosis Date ??? Anxiety [...] SURGERY both hands ??? HYSTERECTOMY Social History Socioeconomic History ??? Marital status: [...] ??? Tobacco comment: by Dr Olivares Substance and Sexual Activity ??? Alcohol use: Not Currently ??? Drug use: Not Currently ??? Sexual activity: Not Currently Other Topics Concern ??? Not on file Social History Narrative ??? Not on file Social Determinants of Health Financial Resource Strain: ??? Difficulty of Paying Living Expenses: Food Insecurity: ??? Worried About Running Out of Food in the Last Year: ??? Ran Out of Food in the Last Year: Transportation Needs: ??? Lack of Transportation (Medical): ??? Lack of Transportation (Non-Medical): Physical Activity: ??? Days of Exercise per Week: ??? Minutes of Exercise per Session: Stress: ??? Feeling of Stress : Social Connections: ??? Frequency of Communication with Friends and Family: ??? Frequency of Social Gatherings with Friends and Family: ??? Attends [employer] Services: ??? Active Member of Clubs or Organizations: ??? Attends Club or Organization Meetings: ??? Marital Status: Intimate Partner Violence: ??? Fear of Current or Ex-Partner: ??? Emotionally Abused: ??? Physically Abused: ??? Sexually Abused: Family History Problem Relation Name Age of Onset ??? Heart Disease Mother ??? Diabetes Mother ??? Cancer Father prostate, lymph node ??? Prostate Cancer Father ??? Hyperlipidemia Sister ??? Hypertension Sister ??? Other (diabetes) Sister ??? Other (stomach issues) Brother ??? Other (diverticular) Brother ??? Diabetes Maternal Grandmother ??? Diabetes Paternal Grandmother ??? Glaucoma Paternal Grandmother Family Status Relation Name Status ??? Mother Alive ??? Father ??? Sister (Not Specified) ??? Brother (Not Specified) ??? MGM (Not Specified) ??? PGM (Not Specified) PHQ-9: Over the last two weeks, how often have you been bothered by any of the following problems? 03/03/2021 04/14/2021 LITTLE INTEREST OR PLEASURE IN DOING THINGS 1-Several Days 1-Several Days FEELING DOWN, DEPRESSSED,OR HOPELESS 0-Not at All 2-More than half the days PHQ2 DEPRESSION TOTAL SCORE 1 3 TROUBLE FALLING OR STAYING ASLEEP OR SLEEPING TOO MUCH 1-Several Days 0-Not at All FEELING TIRED OR HAVING LITTLE ENERGY 0-Not at All 2-More than half the days POOR APPETITE OR OVEREATING 0-Not at All 2-More than half the days FEELING BAD ABOUT YOURSELF 0-Not at All 0-Not at All TROUBLE CONCENTRATING ON THINGS 0-Not at All 2-More than half the days MOVING OR SPEAKING SO SLOWLY THAT OTHER PEOPLE COULD HAVE NOTICED 0-Not at All 0-Not at All THOUGHTS THAT YOU WOULD BE BETTER OFF 0-Not at All 0-Not at All DEPRESSION SCREENING TOTAL SCORE 2 9 IF YOU CHECKED OFF ANY PROBLEMS Somewhat difficult Somewhat difficult Physical Exam Constitutional: General: She is not in acute distress. Appearance: Normal appearance. She is not ill-appearing. HENT: Head: Normocephalic. Cardiovascular: Rate and Rhythm: Normal rate and regular rhythm. Pulmonary: Effort: Pulmonary effort is normal. Chest: Chest wall: No tenderness. Abdominal: Palpations: Abdomen is soft. Musculoskeletal: General: No swelling. Normal range of motion. Cervical back: Normal range of motion. Right hip: Tenderness (right sciatic notch pain on palpation) present. Skin: General: Skin is warm and dry. Neurological: Mental Status: She is alert and oriented to person, place, and time. Psychiatric: Mood and Affect: Mood normal. Behavior: Behavior normal. I spent 30 minutes today reviewing the patient's medical record, obtaining history, performing an exam, ordering medications, tests, and/or procedures, documenting in the medical record, counseling and educating the patient/family/caregiver, reviewing and communicating test results and coordinationof care. Filed Vitals: 04/14/21 0949 BP: 110/60 Pulse: 72 Resp: 18 Temp: 98.1 ??F (36.7 ??C) SpO2: 98% Weight: 133.8 kg (295 lb) Height: 5' 3.5 (1.613 m) Assessment Encounter Diagnose(s) ICD-10-CM ICD-9-CM SNOMED CT(R) 1. Sciatica of right side M54.31 724.3 SCIATICA predniSONE 20 MG tablet methylPREDNISolone acetate (DEPO-Medrol) injection 40 mg ketorolac (TORADOL) injection 60 mg 2. Moderate episode of recurrent major depressive disorder (CMS/HCC) F33.1 296.32 RECURRENT MAJOR DEPRESSIVE EPISODES, MODERATE Recommendations and Plan: Depo Medrol injected 40 mg IM today Prednisone 40mg daily x5 days Toradol 60mg IM today Follow up in [address] Olivares 1. Sciatica of right side Call clinic if symptoms worsen Use pillow between knees while sleeping. Take tylenol 650mg as needed for pain every 6 hours x 3days. Alternate heat/ice to the area for 20 minutes every 2 hours. - predniSONE 20 MG tablet; Take 2 tablets (40 mg total) by mouth daily for 5 days. Dispense: 10 tablet; Refill: 0 - methylPREDNISolone acetate (DEPO-Medrol) injection 40 mg - ketorolac (TORADOL) injection 60 mg 2. Moderate episode of recurrent major depressive disorder (CMS/HCC) Continue all prescribed medications SUZAN SERVIN NP 04/14/2021 2:16 PM documented in this encounter Plan of Treatment Upcoming Encounters Date Type Department Care Team (Late st Contact Info) Description 10/03/2024 11:00 AM ENERGY DIRECTOR Office Visit [facility] - [place] [address] [facility] [address] [place] [address] Nathan Baig MD [address] [address] 11/14/2024 10:20 AM ENERGY DIRECTOR Office Visit [facility] - [place] [address] [facility] [address] [place] [address] Tracy Olivares MD [facility] [address] documented as of this encounter Visit Diagnoses Diagnosis Sciatica of right side- Primary Sciatica Moderate episode of recurrent major depressive disorder ([facility]) documented in this encounter Administered Medications Inactive Administered Medications - up to 3 most recent administrations Medication Order MAR Action Action Date Dose Rate Site ketorolac (TORADOL) injection 60 mg 60 mg, Intramuscular, Once, 1 dose, On Tue04/14/21 at 1100Indications:Sciatica of right side Given 04/14/2021 10:45 AM CDT 60 mg Left Dorsal Gluteal methylPREDNISolone acetate (DEPO-Medrol) injection 40 mg 40 mg, Intramuscular, Once, 1 dose, On Tue04/14/21 at 1045, Shake WellIndications:Sciatica of right side Given 04/14/2021 10:46 AM CDT 40 mg Right Dorsal Gluteal documented in this encounter Additional Health Concerns Assessment Noted Time PHQ-9 Depression Total Score: 9 04/14/20 10:21 AM CDT documented as of this encounter Care Teams Reconstructive Dentist Relationship Specialty Start Date End Date Tracy Olivares MD [address] [address] PCP - General INTERNAL MEDICINE 01/02/21 documented as of this encounter
--- OUTSIDE RECORDS SUMMARY | 2024-09-07 05:26 | XMS_ITS | Encounter Summary ---
Author Organization [facility] Address [address] [place] [address]. [place] [id number] [place] [address] Care Team Providers Care Hardwood Floor Sander Name Role Phone Tracy Olivares MD Primary Care Provider [phone] Reason for Visit * Reason Onset Date Comments Lab Results 07/10/2021 Encounter Details Date Type Department Care Team (Late st Contact Info) Description 07/10/[address] [facility] Multispecialty Care - [address] [place], [place] [id number] Tracy Olivares MD [address] [place] [address] [address] [place] [address] Lab Results Social History Tobacco [...] Progress Notes * Tracy Olivares MD - 07/10/2021 5:49 AM CDT Her kidney and liver function look good. No concerning findings on her blood work to explain her itching. Her cholesterol numbers are not optimally controlled. She needs to be a cholesterol lowering medication- I have sent a script to the pharmacy. Especially as she is still prediabetic. Her currently A1C went up from 5.7 to 5.9% which is a slight increase but still needs to be discussed. I will like for her to start Metformin as well as this has been long standing and not improving. Will start from a moderate intensity statin and plan to optimize once patient tolerating without any side effects. The 10-year ASCVD risk score (Aniwadouglas FISHER Jr., et al., 2013) is: 8.6% Values used to calculate the score: Age: 65 years Sex: Female Is Non- : Yes Diabetic: No Tobacco smoker: No Systolic Blood Pressure: 138 mmHg Is BP treated: Yes HDL Cholesterol: 62 mg/dL Total Cholesterol: 158 mg/dL Also mild anemia noted on her blood work. I will advise taking an over the counter multivitamin daily. Will plan repeating again in about 6 months. Tracy Olivares MD Internal Medicine [facility]. documented in this encounter Plan of Treatment Upcoming Encounters Date Type Department Care Team (Late st Contact Info) Description 10/03/2024 11:00 AM PLANT PHYSIOLOGIST Office Visit [facility]ty [facility] - [address] [address] Nathan Baig MD [address] [address] 11/14/2024 10:20 AM PLANT PHYSIOLOGIST Office Visit [facility] Multispecialty Care - [place] [address] [address] [place] [address] Tracy Olivares MD [address] [place] [address] documented as of this encounter Visit Diagnoses Diagnosis Prediabetes- Primary Other abnormal glucose Mixed hyperlipidemia documented in this encounter Additional Health Concerns Assessment Noted Time PHQ-9 Depression Total Score: 3 07/06/20 21 9:34 AM CDT documented as of this encounter Care Teams Hardwood Floor Sander Relationship Specialty Start Date End Date Tracy Olivares MD [address] [facility] [address] [place] [address] PCP - General INTERNAL MEDICINE 01/02/21 documented as of this encounter
--- OUTSIDE RECORDS SUMMARY | 2024-09-07 05:26 | XMS_ITS | Encounter Summary ---
Author Organization [facility] Address [address] [place] [address]. [place] [id number] Care Team Providers Care Physician Credentialing Specialist Name Role Phone Tracy Olivares MD Primary Care Provider Reason for Visit * Reason Onset Date Comments Question 08/21/2021 Encounter Details Date Type Department Care Team (Late st Contact Info) Description 08/21/2021 Telephone [facility] Multispecialty Care - [place] [address] [address] [place] [address] Tracy Olivares MD [address] [place] [address] 157 [place] [address] Question Social History Tobacco Use [...] COVID-19? No / Unsure 08/17/2021 11:15 AM TOP LIFT COMPRESSOR documented as of this encounter Progress Notes * Tracy Olivares MD - 08/21/2021 10:10 AM CST I called patient. She is currently on triple therapy. She would like to hold off Ozempic till after she has finished with therapy. I agree. All questions answered. Patient advised to follow-up with gastroenterology as planned. Tracy Olivares MD Internal Medicine [facility]. LIFT COMPRESSOR * Sadi Byrd - 08/21/2021 8:17 AM CST Patient would like the provider to call her and answer some questions about Ozempic. LIFT COMPRESSOR documented in this encounter Plan of Treatment Upcoming Encounters Date Type Department Care Team (Late st Contact Info) Description 10/03/2024 11:00 AM TOP LIFT COMPRESSOR Office Visit [facility]ology Specialty Clinic - [address] [address] Nathan Baig MD [address] [place] [address] 11/14/2024 10:20 AM TOP LIFT COMPRESSOR Office Visit [facility] Multispecialty Care - [place] [address] [address] [place] [address] Tracy Olivares MD [facility] [address] [address] documented as of this encounter Visit Diagnoses Not on filedocumented in this encounter Additional Health Concerns Assessment Noted Time PHQ-9 Depression Total Score: 3 07/06/20 21 9:34 AM CDT documented as of this encounter Care Teams Physician Credentialing Specialist Relationship Specialty Start Date End Date Tracy Olivares MD [address] [place] [address] PCP - General INTERNAL MEDICINE 01/02/21 documented as of this encounter
--- OUTSIDE RECORDS SUMMARY | 2024-09-07 05:26 | XMS_ITS | Encounter Summary ---
Author Organization [facility] Address [address] [place] [address]. [place], [place] [id number] [place] [address] Care Team Providers Care Scale Reclamation Tender Name Role Phone Tracy Olivares MD Primary Care Provider [phone] Encounter Details Date Type Department Care Team (Latest Contact Info) Description 05/16/2021 Scan HEALTH INFO SRVCS Scanned, Documents Social [...] st Contact Info) Description 10/03/2024 11:00 AM SKIP MINER BLASTING Office Visit [facility] Pul[facility]ty [facility] - [place] [address] [place] [address] Nathan Baig MD [address] [place] [address] 11/14/2024 10:20 AM SKIP MINER BLASTING Office Visit [facility] Multispecialty Care - [place] [address] [address] [place] [address] Tracy Olivares MD [address] [place] [address] documented as of this encounter Visit Diagnoses Not on filedocumented in this encounter Additional Health Concerns Assessment Noted Time PHQ-9 Depression Total Score: 9 04/14/20 10:21 AM CDT documented as of this encounter Care Teams Scale Reclamation Tender Relationship Specialty Start Date End Date Tracy Olivares MD [address] [place] [address] PCP - General INTERNAL MEDICINE 01/02/21 documented as of this encounter
--- OUTSIDE RECORDS SUMMARY | 2024-09-07 05:26 | XMS_ITS | Encounter Summary ---
Author Organization [facility] - [facility] Address [address] [place] [address]. [place], [place] [address] [place] [address] Care Team Providers Care Blanchard Grinder Operator Name Role Phone Tracy Olivares MD Primary Care Provider [phone] Reason for Visit * Reason Comments Dizziness states her dizziness comes and goes but she feels it is getting worse. She thinks these issues are sinus related Encounter Details Date Type Department Care Team (Latest Contact Info) Description 09/01/2021 9:20 AM REQUIREMENTS MANAGER Office Visit [facility] Medical Group Multispecialty Care - [place] [address] [address] [place] [address] Tracy Olivares MD [address] [place] [address] [address] [place] [address] Dizziness (states her dizziness comes and goes but she feels it is getting worse. She thinks these issues are sinus related) Social History Tobacco Use Types Packs/Day Years [...] COVID-19? No / Unsure 09/01/2021 8:51 AM REQUIREMENTS MANAGER documented as of this encounter Last Filed Vital Signs Vital Sign Reading Time Taken Comments Blood Pressure 140/80 09/01/2021 9:29 AM REQUIREMENTS MANAGER Pulse 81 09/01/2021 9:05 AM REQUIREMENTS MANAGER Temperature 36.8 ??C (98.2 ??F) 09/01/2021 9:05 AM CS T Respiratory Rate 17 09/01/2021 9:05 AM REQUIREMENTS MANAGER Oxygen Saturation 96% 09/01/2021 9:05 AM REQUIREMENTS MANAGER Inhaled Oxygen Concentration - - Weight 128.8 kg (284 lb) 09/01/2021 9:05 AM REQUIREMENTS MANAGER Height 161.3 cm (5' 3.5 ) 09/01/2021 9:05 AM REQUIREMENTS MANAGER Body Mass Index 49.52 09/01/2021 9:05 AM REQUIREMENTS MANAGER documented in this encounter Patient Instructions * Patient Instructions* Tracy Olivares MD - 09/01/2021 9:20 AM REQUIREMENTS MANAGER Images from the original note were not included. Patient Education Patient Education Vertigo (a Type of Dizziness) The Basics Written by the doctors and editors at [facility] What are dizziness and vertigo???--??Dizziness is a feeling that is sometimes hard to describe. It often makes you feel like you are about to fall or pass out. Dizziness can also cause you to feel lightheaded or make it hard for you to walk straight. Vertigo is a type of dizziness that makes you feel like you are spinning, swaying, or tilting, or like the room is moving around you. These feelings come and go, and might last seconds, hours, or days. You might feel worse when you move your head, change positions, cough, or sneeze. Some people with vertigo have trouble walking. Some people with vertigo have nausea and might vomit. What causes vertigo???--??The most common causes of vertigo include: ?? Inner ear problems - Deep inside the ear, there is a small network of tubes that are filled withfluid. Floating inside that fluid are special calcium deposits. Together, these tubes and deposits make up the vestibular system. This system tells the brain what position the body is in. It also helps keep you balanced (figure 1). Problems that affect the inner ear and can lead to vertigo include: ? Benign paroxysmal positional vertigo - In this condition, extra calcium deposits form in the inner ear. This can lead to short episodes of vertigo that happen when you move your head in certain ways. ? Meniere disease - This is a condition in which fluid builds up inside the inner ear. This causes vertigo as well as hearing loss and ringing in one or both ears. ? Vestibular neuritis - This is sometimes caused by a virus which can affect the inner ear or the nerve in the inner ear. It is sometimes called labyrinthitis. People with this condition have vertigo that comes on quickly and can last several days. They also often feel very sick and off balance. ? Head injury - Even a minor head injury can cause inner ear damage and vertigo. This is usually temporary. ? Vestibular migraine - People who get migraines, which are a type of headache, can sometimes have episodes of vertigo. This can happen with or without a headache. ?? Other problems - Other things that can cause vertigo include: ? Certain medicines ? Problems that affect the brain, such as stroke or multiple sclerosis Should I see a doctor or nurse???--??See your doctor or nurse right away if you have vertigo and: ?? Have a new or severe headache ?? Have a fever higher than 100.4??F (38??C) ?? Start to see double or have trouble seeing clearly ?? Have trouble speaking or hearing ?? Have weakness in an arm or leg or your face droops to one side ?? Cannot walk on your own ?? Pass out ?? Have numbness or tingling ?? Have chest pain ?? Cannot stop vomiting You should also see your doctor or nurse if you have vertigo that lasts for several minutes or moreand you: ?? Are older than 60 ?? Had a stroke in the past ?? Are at risk for having a stroke, for example because you have diabetes or you smoke If you have dizziness or vertigo that comes and goes but you do not have any of the problems listedabove, you should still make an appointment with your doctor or nurse. Will I need tests???--??Maybe. Your doctor will start by learning about your symptoms and doing an exam. During the exam, he or she will check: ?? Your hearing ?? How you walk and keep your balance ?? How your eyes work when you watch a moving object, and when your head is turned from side to side Depending on what your doctor finds during the exam, he or she might order more tests to better understand your hearing or balance problems. In some cases, the doctor will order an MRI of your brain.An MRI is an imaging test that creates pictures of the inside of your body. How is vertigo treated???--??If your doctor knows what is causing your vertigo, he or she will probably try to treat that problem directly. For instance, if you have calcium deposits in your inner ear, the doctor might try to get them out by moving your head in a specific way. Your doctor can also give you medicines that might help your vertigo and relieve nausea and vomiting. If your vertigo is really bad, your doctor might also suggest a treatment called balance rehabilitation. This treatment teaches you exercises that can help you cope with your vertigo. What can I do on my own to deal with my vertigo???--??If you have trouble standing or walking because of vertigo, you are at risk of falling. To reduce the risk of falls, make your home as safe as possible. Get rid of loose electrical cords, clutter, and slippery rugs. Also, make sure that you wear sturdy, non-slip shoes, and that your walkways are clear and well lit. All topics are updated as new evidence becomes available and our peer review process is complete. This topic retrieved from [employer] on: Apr 30, 2021. Topic 66370 Version 5.0 Release: 29.4.2 - C29.229 ?2020??[employer]. and/or its affiliates.??All rights reserved. figure 1: The vestibular system Deep inside the ear there is a small network of tubes that are filled with fluid, called the semicircular canals. Also deep inside the ear are special calcium deposits, called otolith organs. Together these tubes and deposits make up the vestibular system. This system tells the brain what position the??head is in and how it is moving. The vestibular system helps keep you balanced, especially when you are standing or walking. Graphic 26892 Version 10.0 Consumer Information Use and Disclaimer This information [...] of this information is governed by the [employer] End User License Agreement, available at https://www.TASS/en/solutions/Etology.com/about/lonny.The use of [employer] content is governed by the [employer] Terms of Use. ??2020 [employer]. All rights reserved. Copyright ?2020??[employer]vi and/or its affiliates.??All rights reserved. Patient Education Patient Education Sinusitis in Adults The Basics Written by the doctors and editors at [facility] What is sinusitis???--??Sinusitis is a condition that [...] your symptoms, you can: ?? Take an [id number] pain reliever to reduce the pain ?? [...] process is complete. This topic retrieved from [employer] on: Apr 30, 2021. Topic 19166 Version 17.0 Release: 29.4.2 - C29.229 ?2020??[employer] and/or its affiliates.??All rights reserved. figure 1: Sinuses of the face This??drawing shows the sinuses of the face, from the??side and front views. Graphic 202963 Version 1.0 Consumer Information Use and Disclaimer This information [...] of this information is governed by the [employer] End User License Agreement, available at https://www.[employer].Fiz/en/solutions/Etology.com/about/lonny.The use of [employer] content is governed by the [employer] Terms of Use. ??2020 [employer]. All rights reserved. Copyright ?2020??invi and/or its affiliates.??All rights reserved. IREMENTS MANAGER documented in this encounter Progress Notes * Tracy Olivares MD - 09/01/2021 9:20 AM CSTSummary: Acute visit notes Images from the original note were not included. Internal Medicine Outpatient Progress Note CC: Dizziness (states her dizziness comes and goes but she feels it is getting worse. She thinks these issues are sinus related) HPI: Keegan Amaya is a 66-year-old female who presents for an acute visit for concerns for concerns for dizziness. According to patient, symptoms started a couple of days ago. It has progressively gotten worse. She notes mild rocking sensation as though she is sitting in a boat with occasional spinning sensation. She tells me she has chronic sinus issues and intermittently flares up. She used to take Zyrtec which used to help with her symptoms are recently discontinued. Denies anysore throat, cough, sick contacts. She is up-to-date with her vaccinations for influenza and Covid with exception of her booster for Covid. Denies any concerns for fever, chills. Denies any chest tigh tness or falls. Denies any weakness of her extremities or change in speech. Notes discomfort in hersinuses. Notes ongoing postnasal drainage. Patient concerned and decided to report today. Problem List Patient Active Problem List Diagnosis [...] Outpatient Medications Marked as Taking for the 09/01/21 encounter (Office Visit) with Tracy Olivares MD [...] FOR 30 DAYS. 30 mL 5 ??? azithromycin (ZITHROMAX Z-KAREN) 250 MG tablet Take 2 tablets by mouth on day one then 1 daily for four days. 6 tablet 0 ??? Cetirizine HCl (ZYRTEC ALLERGY) 10 MG Cap Take 10 mg by mouth daily. 30 capsule ??? Cetirizine HCl (ZYRTEC ALLERGY) 10 MG Cap Take 10 mg by mouth daily. 30 capsule 0 ??? diphenhydrAMINE-zinc (BENADRYL EXTRA STRENGTH) 2-0.1 % Cream cream Use twice daily on skin to help with itching. 28 g 1 ??? FAMOTIDINE 20 MG tablet TAKE 1 TABLET BY MOUTH TWICE A DAY 180 tablet 1 ??? guaiFENesin ER (MUCINEX) 600 MG 12 hr tablet Take 2 tablets (1,200 mg total) by mouth 2 (two) times daily. 28 tablet 0 ??? Losartan Potassium-HCTZ 100-12.5 MG Tab Take 1 tablet by mouth daily. 90 tablet 3 ??? meclizine 12.5 MG tablet Take 1 tablet (12.5 mg total) by mouth nightly as needed. 20 tablet 0 ??? metoclopramide 5 MG tablet Take 1 tablet (5 mg total) by mouth 3 (three) times a day. 20 tablet0 ??? omeprazole 40 MG capsule Take 1 capsule (40 mg total) by mouth daily. 30 capsule 1 ??? ONETOUCH VERIO test strip ??? TRELEGY 100-62.5-25 MCG/INH AEROSOL POWDER, BREATH ACTIVATED Inhale 1 puff into the lungs daily. 60 each 2 ??? Vitamin D, Cholecalciferol, 50 MCG (2000 UT) Cap Take 1,000 Units by mouth daily. 30 capsule Allergies: Allergies Allergen Reactions ??? Propoxyphene Unknown Review of Systems Constitutional: Negative. HENT: Positive for congestion. Negative for ear discharge, ear pain, hearing loss, nosebleeds, sinus pain, sore throat and tinnitus. Eyes: Negative. Respiratory: Negative. Negative for stridor. Cardiovascular: Negative. Gastrointestinal: Negative. Genitourinary: Negative. Musculoskeletal: Negative. Skin: Negative. Neurological: Positive for dizziness. Negative for tingling, tremors, sensory change, speech change, focal weakness, seizures, loss of consciousness, weakness and headaches. Objective: Filed Vitals: 09/01/21 0905 09/01/21 0929 BP: 143/75 140/80 Pulse: 81 Resp: 17 Temp: 98.2 ??F (36.8 ??C) SpO2: 96% Weight: 128.8 kg (284 lb) Height: 5' 3.5 (1.613 m) Body mass index is 49.52 kg/m??. General alert, cooperative, no distress HEENT EOM's intact. Post nasal drainage. No erythema in the oropharynx. Tenderness over the frontalsinuses. Nasal septum is midline. Neck Supple, symmetrical, [...] Encounter Diagnose(s) ICD-10-CM ICD-9-CM SNOMED CT(R) 1. Vertigo R42 780.4 VERTIGO meclizine 12.5 MG tablet 2. Acute recurrent frontal sinusitis J01.11 461.1 ACUTE FRONTAL SINUSITIS Cetirizine HCl (ZYRTEC ALLERGY) 10 MG Cap azithromycin (ZITHROMAX Z-KAREN) 250 MG tablet guaiFENesin ER (MUCINEX) 600 MG 12 hr tablet 1. Vertigo - meclizine 12.5 MG tablet; Take 1 tablet (12.5 mg total) by mouth nightly as needed. Dispense: 20 tablet; Refill: 0 2. Acute recurrent frontal sinusitis - Cetirizine HCl (ZYRTEC ALLERGY) 10 MG Cap; Take 10 mg by mouth daily. Dispense: 30 capsule; Refill: 0 - azithromycin (ZITHROMAX Z-KAREN) 250 MG tablet; Take 2 tablets by mouth on day one then 1 daily forfour days. Dispense: 6 tablet; Refill: 0 - guaiFENesin ER (MUCINEX) 600 MG 12 hr tablet; Take 2 tablets (1,200 mg total) by mouth 2 (two) times daily. Dispense: 28 tablet; Refill: 0 - Patient with acute sinusitis. Discussed recommendations for antibiotic therapy with the patient and that antibiotics no more effective than placebo and that symptomatic care should be the focus forAVRS. AVRS vs ABRS, reasons to consider abx of symptoms longer than 10 days with no clinical improvement, onset with severe symptoms (fever > 39 C or 102 F and purulent nasal discharge or facial pa in) lasting at least three consecutive days at the beginning of the illness. Onset of worsening symptoms following a viral URI infection that lasted five to six days and was initially improving. Patient agrees with course of action. Will start prescribed treatment. If no relief in the next 3-4 dayspatient is to return for further workup or change in medications. - Follow-up if not improving Counseling given: Yes Comment: by Dr Olivares [...] was at least in part performed using AppMesh and there may be some inherent flaws in this spindle plumber due to the nature of this program. Tracy Olivares MD Internal Medicine [facility], [facility]. IREMENTS MANAGER IREMENTS MANAGER documented in this encounter Plan of Treatment Upcoming Encounters Date Type Department Care Team (Late st Contact Info) Description 10/03/2024 11:00 AM REQUIREMENTS MANAGER Office Visit [facility] Medical Group Pulmonology Specialty Clinic - [address] [address] Nathan Baig MD [address] [place] [address] 11/14/2024 10:20 AM REQUIREMENTS MANAGER Office Visit [facility] Medical Group Multispecialty Care [place] [address] [address] [place] [address] Tracy Olivares MD [address] [place] [address], [place] [address] documented as of this encounter Visit Diagnoses Diagnosis Vertigo- Primary Dizziness and giddiness Acute recurrent frontal sinusitis Acute frontal sinusitis documented in this encounter Additional Health Concerns Assessment Noted Time PHQ-9 Depression Total Score: 3 07/06/20 21 9:34 AM CDT documented as of this encounter Care Teams Blanchard Grinder Operator Relationship Specialty Start Date End Date Tracy Olivares MD [address] [address] PCP - General INTERNAL MEDICINE 01/02/21 documented as of this encounter
--- OUTSIDE RECORDS SUMMARY | 2024-09-07 05:26 | XMS_ITS | Encounter Summary ---
Author Organization [facility] Address [address] [place] [address]. [place], [place] [address] [place] [address] Care Team Providers Care Set Up Mechanic Stamping Machines Name Role Phone Tracy Olivares MD Primary Care Provider [phone] Reason for Visit * Reason Comments Sleep Study (SCAN) Encounter Details Date Type Department Care Team ([facility] Contact Info) Description 05/22/2021 Scan HEALTH INFO SRVCS Scanned, Documents Sleep [...] Upcoming Encounters Date Type Department Care Team ([facility] Contact Info) Description 10/03/2024 11:00 AM SPORTS ANCHOR Office Visit [facility] Medical [facility] Pul[facility] Specialty Clinic - [address] [place], [place] [id number] Nathan Baig MD 3 [facility] [address] [place] [address] 11/14/2024 10:20 AM SPORTS ANCHOR Office Visit [facility] Medical Group Multispecialty Care - [place] [address] [address] [place] [address] Tracy Olivares MD [facility] [address] [address] documented as of this encounter Procedures Procedure Name Priority Date/Time Associated Diagnosis Comments SLEEP STUDY GENERIC (SCAN ORDER) 05/22/2021 documented in this encounter Results * SLEEP STUDY GENERIC (05/22/2021) 05/22/2021 Narrative 05/22/2021 Ordered by an unspecified provider. us Documents Scanned SCANNING Final Result documented in this encounter Visit Diagnoses Not on filedocumented in this encounter Additional Health Concerns Assessment Noted Time PHQ-9 Depression Total Score: 0 05/22/20 9:15 AM CDT documented as of this encounter Care Teams Set Up Mechanic Stamping Machines Relationship Specialty Start Date End Date rTacy Olivares MD [address] [place] [address] PCP - General INTERNAL MEDICINE 01/02/21 documented as of this encounter
--- OUTSIDE RECORDS SUMMARY | 2024-09-07 05:26 | XMS_ITS | Encounter Summary ---
Author Organization [facility] Address [address] [place] [address]. [place], [place] [address] [place] [address] Care Team Providers Care Computer Typesetter Name Role Phone Tracy Olivares MD Primary Care Provider [phone] Reason for Visit * Reason Comments Lab (SCAN) Encounter Details Date Type Department Care Team (Latest Contact Info) Description 07/06/2021 Scan [facility] HEALTH INFO SRVCS Scanned, Documents Lab (SCAN) Social History Tobacco Use Types [...] (Late Contact Info) Description 10/03/2024 11:00 AM OBSTETRIC ANAESTHETIST Office Visit [facility] Medical [facility] Pul[facility]ology Specialty Clinic - [address] [place] [address] Nathan Baig MD 3 [facility] [address] [place] [address] 11/14/2024 10:20 AM OBSTETRIC ANAESTHETIST Office Visit [facility] Medical Group Multispecialty Care - [place] [address] [address] [place] [address] Tracy Olivares MD [address] [address] documented as of this encounter Procedures Procedure Name Priority Date/Time Associated Diagnosis Comments OUTSIDE LAB (SCAN ORDER) 07/06/2021 documented in this encounter Results * OUTSIDE LAB (SCAN) (07/06/2021) 07/06/2021 Narrative 07/06/2021 Ordered by an unspecified provider. us Documents Scanned SCANNING Final Result documented in this encounter Visit Diagnoses Not on filedocumented in this encounter Additional Health Concerns Assessment Noted Time PHQ-9 Depression Total Score: 3 07/06/20 9:34 AM CDT documented as of this encounter Care Teams Computer Typesetter Relationship Specialty Start Date End Date Tracy Olivares MD [address] [place] [address] PCP - General INTERNAL MEDICINE 01/02/21 documented as of this encounter
--- OUTSIDE RECORDS SUMMARY | 2024-09-07 05:26 | XMS_ITS | Encounter Summary ---
Author Organization [facility] - [facility] Address [address] [place] [address]. [place] [id number] Care Team Providers Care Strategic Sourcing Specialist Name Role Phone Tracy Olivares MD Primary Care Provider [phone] Reason for Visit * Reason Onset Date Comments Appointment Request 08/05/2021 AWV- Unable to leave message Encounter Details Date Type Department Care Team (Late st Contact Info) Description 08/05/2021 Telephone [facility] Medical Group Multispecialty Care - [address] [place] [address] Tracy Olivares MD [address] [place] [address] [address] [place], [place] [phone] Appointment Request (AWV- Unable to leave message) Social History Tobacco Use Types Packs/Day Years [...] COVID-19? No / Unsure 08/05/2021 8:38 AM TEST BORE HELPER documented as of this encounter Progress Notes * Alexandra Waggoner RN - 08/05/2021 9:09 AM CST Telephone call placed to patient in an attempt to schedule Annual Wellness Visit. There was no answer. Nurse was unable to leave a message as patient's voicemail box is full. BORE HELPER documented in this encounter Plan of Treatment Upcoming Encounters Date Type Department Care Team (Late st Contact Info) Description 10/03/2024 11:00 AM TEST BORE HELPER Office Visit [facility] Medical Group Pulmonology Specialty Clinic - [address] [address] Nathan Baig MD [address] [place] [address] 11/14/2024 10:20 AM TEST BORE HELPER Office Visit [facility] Multispecialty Care - [place] [address] [address] [place] [address] Tracy Olivares MD [facility] [address] [address] documented as of this encounter Visit Diagnoses Not on filedocumented in this encounter Additional Health Concerns Assessment Noted Time PHQ-9 Depression Total Score: 3 07/06/20 21 9:34 AM CDT documented as of this encounter Care Teams Strategic Sourcing Specialist Relationship Specialty Start Date End Date Tracy Olivares MD [address] [place] [id number] PCP - General INTERNAL MEDICINE 01/02/21 documented as of this encounter
--- OUTSIDE RECORDS SUMMARY | 2024-09-07 05:26 | XMS_ITS | Encounter Summary ---
Author Organization [facility] Address [address] [place] [address]. [place], [place] [address] [place] [address] Care Team Providers Care Chemistry Technologist Name Role Phone Tracy Olivares MD Primary Care Provider [phone] Encounter Details Date Type Department Care Team (Latest Contact Info) Description 04/14/2021 Travel Social History Tobacco Use Types Packs/Day [...] Contact Info) Description 10/03/2024 11:00 AM SAP ENTERPRISE PORTAL CONSULTANT Office Visit [facility] Medical Group Pulmonology Specialty Clinic - [place] [address] [place] [address] Nathan Baig MD [address] [address] 11/14/2024 10:20 AM SAP ENTERPRISE PORTAL CONSULTANT Office Visit [facility] Medical Group Multispecialty Care [place] [address] [address] [place] [address] [place] [address] [place] [address] documented as of this encounter Visit Diagnoses Not on filedocumented in this encounter Additional Health Concerns Assessment Noted Time PHQ-9 Depression Total Score: 9 04/14/20 10:21 AM CDT documented as of this encounter Care Teams Chemistry Technologist Relationship Specialty Start Date End Date Tracy Olivares MD [address] [place] [address] PCP - General INTERNAL MEDICINE 01/02/21 documented as of this encounter
--- OUTSIDE RECORDS SUMMARY | 2024-09-07 05:26 | XMS_ITS | Encounter Summary ---
Author Organization [facility] Address [address] [place] [address]. [place] [id number] Care Team Providers Care Road Machinery Inspector Name Role Phone Tracy Olivares MD Primary Care Provider [phone] Reason for Visit * Reason Onset Date Comments Results 08/25/2021 Encounter Details Date Type Department Care Team (Late st Contact Info) Description 08/25/2021 Telephone [facility] Multispecialty Care - [place] [address] [address] [place] [address] Tracy Olivares MD [address] [place] [address] [address] [place] [address] Results Social History Tobacco Use [...] COVID-19? No / Unsure 08/17/2021 11:15 AM BRAILLE OPERATOR documented as of this encounter Progress Notes * Kriss Vilchis MA - 08/26/2021 9:31 AM CST Pt informed. LLE OPERATOR * Tracy Olivares MD - 08/25/2021 6:47 PM CST I received a mammogram report done on 08/25/2021. Results shows right breast asymmetry which may represent patient's baseline however no old mammograms for comparison. Scanned. Please call patient and update. We will plan to repeat patient's mammogram in 1 year for comparison. Thanks, Tracy Olivares MD Internal Medicine [facility]. LLE OPERATOR documented in this encounter Plan of Treatment Upcoming Encounters Date Type Department Care Team (Late st Contact Info) Description 10/03/2024 11:00 AM BRAILLE OPERATOR Office Visit [facility] - [address] [address] Nathan Baig MD [address] [place] [address] 11/14/2024 10:20 AM BRAILLE OPERATOR Office Visit [facility] - [place] [address] [address] [place] [address] Tracy Olivares MD [address] [place] [address] documented as of this encounter Visit Diagnoses Not on filedocumented in this encounter Additional Health Concerns Assessment Noted Time PHQ-9 Depression Total Score: 3 07/06/20 21 9:34 AM CDT documented as of this encounter Care Teams Road Machinery Inspector Relationship Specialty Start Date End Date Tracy Olivares MD [address] [place] [address] PCP - General INTERNAL MEDICINE 01/02/21 documented as of this encounter
--- OUTSIDE RECORDS SUMMARY | 2024-09-07 05:26 | XMS_ITS | Encounter Summary ---
Author Organization [facility] Address [address] [place] [address]. [place], [place] [address] [place] [address] Care Team Providers Care Sfdc Technical Architect Name Role Phone Tracy Olivares MD Primary Care Provider [phone] Encounter Details Date Type Department Care Team (Late Contact Info) Description 07/09/2021 Orders Only [facility] Medical [facility] Multispecialty Care - [place] [address] [address] [place], [place] [id number] Tracy Olivares MD [address] [facility] [address] [place] [address] Social History Tobacco Use Types Packs/Day Years [...] st Contact Info) Description 10/03/2024 11:00 AM MENTAL HEALTH SOCIAL WORKER Office Visit [facility] - [place] [address] [facility] [address] [place] [address] Nathan Baig MD [address] [address] 11/14/2024 10:20 AM MENTAL HEALTH SOCIAL WORKER Office Visit [facility]pecialty Care - [place] [address] [facility] [address] [place] [address] Tracy Olivares MD [address] [facility] [address] [place], [place] [id number] documented as of this encounter Procedures Procedure Name Priority Date/Time Associated Diagnosis Comments COMPREHENSIVE METABOLIC PANEL Routine 07/09/2021 9:24 AM CDT LIPID PANEL Routine 07/09/2021 9:24 AM CDT CBC W/DIFF AUTOMATED Routine 07/09/2021 9:24 AM CDT documented in this encounter Results * (ABNORMAL) CBC W/DIFF AUTOMATED (07/09/2021 9:24 AM CDT) WBC 7.5 3.8 - 10.8 Thousand/u L [facility] RBC 3.94 3.80 - 5.10 Million/uL [facility] HGB 11.6(L) 11.7 - 15.5 g/dL [facility] HCT 35.5 35.0 - 45.0 % [facility] MCV 90.1 80.0 - 100.0 fL [facility] MCH 29.4 27.0 - 33.0 pg [facility] MCHC 32.7 32.0 - 36.0 g/dL [facility] RDW 13.6 11.0 - 15.0 % [facility] PLT 316 140 - 400 Thousand/u L [facility] MPV 10.6 7.5 - 12.5 fL [facility] ABS. NEUTROPHILS 4,313 1,500 - 7,800 cells/uL [facility] ABS. LYMPHOCYTES 2,325 850 - 3,900 cells/uL [facility] ABS. MONOCYTES 638 200 - 950 cells/uL [facility] ABS. EOSINOPHILS 188 15 - 500 cells/uL [facility] ABS. BASOPHILS 38 0 - 200 cells/uL [facility] SEG NEUTROPHILS 57.5 % [facility] LYMPHOCYTES 31.0 % [facility] MONOCYTES 8.5 % [facility] EOSINOPHILS 2.5 % [facility] BASOPHILS 0.5 % [facility] 07/09/2021 9:24 AM CDT 07/09/2021 9:26 AM CDT Narrative [facility] - 07/10/2021 2:18 AM CDT FASTING:YES FASTING: YES Tracy Olivares MD LABORATORY Final Result [facility] [address] [place] [address] * (ABNORMAL) COMPREHENSIVE METABOLIC PANEL (07/09/2021 9:24 AM CDT) GLUCOSE 110(H) 65 - 99 mg/dL [facility] Comment: ? Fasting reference interval For someone without known diabetes, a glucose value between 100 and 125 mg/dL is consistent with prediabetes and should be confirmed with a follow-up test. BUN 16 7 - 25 mg/dL [facility] CREATININE S/P/B 0.82 0.50 - 0.99 mg/dL [facility] Comment: For patients >49 years of age, the reference limit for Creatinine is approximately 13% higher for people identified as -[place]man[place]. EGFR NON-AFR. AMER. 75 > OR = 60 mL/min/1 .73m2 [facility] EGFR AFR. AMER. 87 > OR = 60 mL/min/1 .73m2 [facility] BUN CREATININE RATIO NOT APPLICABLE 6 - 22 (calc) [facility] SODIUM S/P/B 141 135 - 146 mmol/L [facility] POTASSIUM S/P/B 3.8 3.5 - 5.3 mmol/L [facility] CHLORIDE S/P/B 100 98 - 110 mmol/L [facility] CO2 33(H) 20 - 32 mmol/L [facility] CALCIUM S/P/B 9.2 8.6 - 10.4 mg/dL [facility] TOTAL PROTEIN S/P/B 6.5 6.1 - 8.1 g/dL [facility] ALBUMIN S/P/B 3.7 3.6 - 5.1 g/dL [facility] GLOBULIN 2.8 1.9 - 3.7 g/dL (calc) [facility] ALBUMIN/GLOBULIN RATIO 1.3 1.0 - 2.5 (calc) [facility] BILIRUBIN TOTAL S/P/B 0.6 0.2 - 1.2 mg/dL [facility] ALKALINE PHOSPHATASE S/P/B 123 37 - 153 U/L [facility] AST 15 10 - 35 U/L [facility] ALT 12 6 - 29 U/L [facility] 07/09/2021 9:24 AM CDT 07/09/2021 9:26 AM CDT Narrative [facility] - 07/10/2021 2:18 AM CDT FASTING:YES FASTING: YES Tracy Olivares MD LABORATORY Final Result [facility] [address] [address] [address] * LIPID PANEL (07/09/2021 9:24 AM CDT) CHOLESTEROL 158 <200 mg/dL [facility] HDL 62 > OR = 50 mg/dL [facility] TRIGLYCERIDES 97 <150 mg/dL [facility] LDL (CALCULATED) 78 mg/dL (calc) [facility] Comment: Reference [...] LDL-C. Buddy SS et al. PORTER. 2013;310(19): 1606-7232 (http://education.[employer]faq/KKC403) CHOL/HDL RATIO 2.5 <5.0 (calc) [facility] NON HDL CHOLESTEROL 96 <130 mg/dL (calc) [facility] Comment: For patients with diabetes plus 1 major ASCVD risk factor, treating to a non-HDL-C goal of <100 mg/dL (LDL-C of <70 mg/dL) is considered a therapeutic option. 07/09/2021 9:24 AM CDT 07/09/2021 9:26 AM CDT Narrative [facility] - 07/10/2021 2:18 AM CDT FASTING:YES FASTING: YES Tracy Olivares MD LABORATORY Final Result [facility] [address] [place] [address] documented in this encounter Visit Diagnoses Not on filedocumented in this encounter Additional Health Concerns Assessment Noted Time PHQ-9 Depression Total Score: 3 07/06/20 21 9:34 AM CDT documented as of this encounter Care Teams Sfdc Technical Architect Relationship Specialty Start Date End Date Tracy Olivares MD [address] [facility] [address] [place] [address] PCP - General INTERNAL MEDICINE 01/02/21 documented as of this encounter
--- OUTSIDE RECORDS SUMMARY | 2024-09-07 05:26 | XMS_ITS | Encounter Summary ---
Author Organization [facility] Address [address] [place] [address]. [address] [address] Care Team Providers Care Software Quality Automation Engineer Name Role Phone Tracy Olivares MD Primary Care Provider [phone] Reason for Visit * Reason Comments Follow Up 4 month f/u for echocardiograph tech betty medical issues Encounter Details Date Type Department Care Team (Latest Contact Info) Description 09/10/2021 9:40 AM MATCHER OPERATOR Office Visit [facility] Medical Group Multispecialty Care - [place] [address] [address] [place] [address] Tracy Olivares MD [address] [place] [address] [address] [place], [place] [id number] Follow Up (4 month f/u for chronic medical issues) Social History Tobacco Use [...] COVID-19? No / Unsure 09/10/2021 9:35 AM MATCHER OPERATOR documented as of this encounter Last Filed Vital Signs Vital Sign Reading Time Taken Comments Blood Pressure 120/69 09/10/2021 9:48 AM MATCHER OPERATOR Pulse 92 09/10/2021 9:48 AM MATCHER OPERATOR Temperature 36.6 ??C (97.8 ??F) 09/10/2021 9:48 AM CS T Respiratory Rate 17 09/10/2021 9:48 AM MATCHER OPERATOR Oxygen Saturation 99% 09/10/2021 9:48 AM MATCHER OPERATOR Inhaled Oxygen Concentration - - Weight 129.7 kg (286 lb) 09/10/2021 9:48 AM MATCHER OPERATOR Height 161.3 cm (5' 3.5 ) 09/10/2021 9:48 AM MATCHER OPERATOR Body Mass Index 49.87 09/10/2021 9:48 AM MATCHER OPERATOR documented in this encounter Patient Instructions * Patient Instructions* Tracy Olivares MD - 09/10/2021 9:40 AM MATCHER OPERATOR Follow up in 4 weeks. Stop the metformin. Start using your Ozempic pen. HER OPERATOR documented in this encounter Progress Notes * Tracy Olivares MD - 09/10/2021 9:40 AM CSTSummary: Follow-up notes Images from the original note were not included. Internal Medicine Outpatient Progress Note CC: Follow Up (4 month f/u for chronic medical issues) HPI: Keegan Amaya is a 66-year-old female who presents for follow-up for restless leg syndrome, chronic pain, recent concerns for abdominal discomfort and constipation as well as prediabetes. Patient recently has had concerns about epigastric discomfort. Subsequently her dose of omeprazole has been optimized and patient is referred to see gastroenterology for evaluation for possible uppergastrointestinal endoscopy. She tells me symptoms are currently better. She is yet to be called by g astroenterology. Denies any concerns for melena or blood in stool. She tells me she will prefer the20 mg scripts for omeprazole instead of the 40 mg. Her last upper gastrointestinal endoscopy was done many years ago Recently, I did place patient on triple therapy for possible peptic ulcer disease and she has since completed medications. She notes her constipation is currently well controlled on her current regimen i.e. magnesium, MiraLAX and senna as needed. She is no longer needing to use these medications. She is currently using prunes which helps. She is up-to-date with her colonoscopy and patient is due in 10 years. Patient is also here for follow-up for restless leg syndrome. She has since run out of her medications. Patient is no longer taking ropirinol as she did not noticed any improvement. She is not interested in refills. Patient is also here for follow-up for prediabetes. Noted longstanding history of prediabetes. Noted family history of diabetes. Patient's last A1c done in June 2021 was 5.9%. She is not taking her metformin. She has since been prescribed semaglutide injections and on 0.5 mg weekly and yet to start. Problem List Patient Active Problem List Diagnosis [...] Outpatient Medications Marked as Taking for the 09/10/21 encounter (Office Visit) with Tracy Olivares MD [...] capsules (40 mg total) by mouth daily. 90 capsule 1 ??? ondansetron 4 MG tablet Take 1 tablet (4 mg total) by mouth every 8 (eight) hours as needed forNausea. 20 tablet 0 ??? ONETOUCH VERIO test strip ??? semaglutide [...] Neurological: Negative. Psychiatric/Behavioral: Negative. Objective: Filed Vitals: 09/10/21 0948 BP: 120/69 Pulse: 92 Resp: 17 Temp: 97.8 ??F (36.6 ??C) SpO2: 99% Weight: 129.7 kg (286 lb) Height: 5' [...] Encounter Diagnose(s) ICD-10-CM ICD-9-CM SNOMED CT(R) 1. Gastroesophageal reflux disease without esophagitis K21.9 530.81 GASTROESOPHAGEAL REFLUX DISEASEWITHOUT ESOPHAGITIS OMEPRAZOLE 20 MG capsule ondansetron 4 MG tablet 2. Constipation, unspecified constipation type K59.00 564.00 CONSTIPATION Senna 8.6 MG tablet 3. RLS (restless legs syndrome) G25.81 333.94 RESTLESS LEGS 4. Prediabetes R73.03 790.29 PREDIABETES semaglutide (OZEMPIC 0.25/0.5 MG/DOSE) 2 MG/1.5ML injection (PEN) 1. Gastroesophageal reflux disease without esophagitis - symptoms significantly better; will defer getting an EGD at this time; has completed tripple therapy - OMEPRAZOLE 20 MG capsule; Take 2 capsules (40 mg total) by mouth daily. Dispense: 90 capsule; Refill: 1 - ondansetron 4 MG tablet; Take 1 tablet (4 mg total) by mouth every 8 (eight) hours as needed for Nausea. Dispense: 20 tablet; Refill: 0 2. Constipation, unspecified constipation type - improved - she will use Magnesium citrate and miralax as needed - use Senna 8.6 MG tablet; Take 1 tablet (8.6 mg total) by mouth daily as needed for Constipation. Dispense: 30 tablet; Refill: 1 3. RLS (restless legs syndrome) - has not benefited from her ropirinole and would not like refills at this time - will defer any scripts at this time 4. Prediabetes - last A1C controlled - will discontinue Metformin for now as patient has discontinued use; she has her new script for Ozempic and will use this instead; she is really interested in loosing some weight - use semaglutide (OZEMPIC 0.25/0.5 MG/DOSE) 2 MG/1.5ML injection (PEN); Inject 0.5 mg into the skin every 7 days. Dispense: 2 mL; Refill: 0 Counseling given: Yes Comment: counseled by Dr [...] was at least in part performed using [employer] and there may be some inherent flaws in this coordinate measuring machine operator due to the nature of this program. Tracy Olivares MD Internal Medicine [facility], [facility]. HER OPERATOR documented in this encounter Plan of Treatment Upcoming Encounters Date Type Department Care Team (Late st Contact Info) Description 10/03/2024 11:00 AM MATCHER OPERATOR Office Visit [facility] - [address] [address] Nathan Baig MD [address] [address] 11/14/2024 10:20 AM MATCHER OPERATOR Office Visit [facility] Medical Group Multispecialty Care [place] [address] [address] [place] [address] Tracy Olivares MD [address] [place] [address] [address] [place] [address] documented as of this encounter Visit Diagnoses Diagnosis Gastroesophageal reflux disease without esophagitis- Primary Esophageal reflux Constipation, unspecified constipation type RLS (restless legs syndrome) Restless legs syndrome (RLS) Prediabetes Other abnormal glucose documented in this encounter Additional Health Concerns Assessment Noted Time PHQ-9 Depression Total Score: 3 07/06/20 21 9:34 AM CDT documented as of this encounter Care Teams Software Quality Automation Engineer Relationship Specialty Start Date End Date Tracy Olivares MD [address] [address] PCP - General INTERNAL MEDICINE 01/02/21 documented as of this encounter
--- OUTSIDE RECORDS SUMMARY | 2024-09-07 05:26 | XMS_ITS | Encounter Summary ---
Author Organization [facility] Address [address] [place] [address]. [place], [place] [address] [place] [address] Care Team Providers Care Applied Mathematician Name Role Phone Tracy Olivares MD Primary Care Provider [phone] Encounter Details Date Type Department Care Team (Latest Contact Info) Description 05/20/2021 Travel Social History Tobacco Use Types Packs/Day [...] st Contact Info) Description 10/03/2024 11:00 AM EDITOR PUBLICATIONS Office Visit [facility] - [address] [place] [address] Nathan Baig MD [address] [address] 11/14/2024 10:20 AM EDITOR PUBLICATIONS Office Visit [facility] Multispecialty Care - [place] [address] [address] [place] [address] [place] [address] [place] [address] documented as of this encounter Visit Diagnoses Not on filedocumented in this encounter Additional Health Concerns Assessment Noted Time PHQ-9 Depression Total Score: 9 04/14/20 10:21 AM CDT documented as of this encounter Care Teams Applied Mathematician Relationship Specialty Start Date End Date Tracy Olivares MD [address] [place] [address] PCP - General INTERNAL MEDICINE 01/02/21 documented as of this encounter
--- OUTSIDE RECORDS SUMMARY | 2024-09-07 05:26 | XMS_ITS | Encounter Summary ---
Author Organization [facility] - [facility] Address [address] [place] [address] [address] Care Team Providers Care Agriculture Research Director Name Role Phone Tracy Olivares MD Primary Care Provider [phone] Reason for Visit * Reason Comments Follow Up lower back pain Leg Pain Right lateral leg nu mbness Encounter Details Date Type Department Care Team (Latest Contact Info) Description 05/11/2021 9:40 AM CDT Office Visit [facility] Medical Group Multispecialty Care - [place] [address] [address] [place] [address] Tracy Olivares MD [address] [place] [address] [address] [place], [place] [id number] Follow Up (lower back pain); Leg Pain (Right lateral leg numbness) Social History Tobacco Use Types Packs/Day Years [...] Sign Reading Time Taken Comments Blood Pressure 127/75 05/11/2021 9:51 AM CDT Pulse 96 05/11/2021 9:51 AM CDT Temperature 36.4 ??C (97.5 ??F) 05/11/2021 9:51 AM CD T Respiratory Rate 18 05/11/2021 9:51 AM CDT Oxygen Saturation 96% 05/11/2021 9:51 AM CDT Inhaled Oxygen Concentration - - Weight 130.2 kg (287 lb) 05/11/2021 9:51 AM CDT Height 161.3 cm (5' 3.5 ) 05/11/2021 9:51 AM CDT Body Mass Index 50.04 05/11/2021 9:51 AM CDT documented in this encounter Patient Instructions * Patient Instructions* Tracy Olivares MD - 05/11/2021 9:40 AM CDT Images from the original note were not included. Please get your TDAP and Shingrix vaccine done a local pharmacy. Please get the flu shot during the flu season. Take Gabapentin 100mg three times daily or 200 mg at night. Please follow up in 4 months or sooner if needed. Please start physical therapy as planned for your back and legs. Patient Education Patient Education Sciatica Discharge Instructions [...] Then, bend with your knees when you cloth picker something from the ground. ? When lifting [...] best results. ? Lie on your back. melter supervisor open hearth furnace the knee of the painful side until [...] or foot. Where can I learn more? [place] [employer] [email or web address].org/condition/piriformis-syndrome/ Health Navigator [...] right for you. Copyright Copyright ?? 2020 [employer] and its affiliates and/or licensors. All rights reserved. documented in this encounter Progress Notes * Tracy Olivares MD - 05/11/2021 9:40 AM CDTSummary: Follow-up notes Images from the original note were not included. Internal Medicine Outpatient Progress Note CC: Follow Up (lower back pain) and Leg Pain (Right lateral leg numbness) HPI: Keegan Amaya is a 65-year-old female who presents for follow- up for chronic low back pain. Patient was seen about 2 weeks ago for acute on chronic low back pain. Patient has since been referred to physical therapy and is scheduled to start in the next few days. On Tylenol as needed pain. According to patient, she has completed her steroid pack and back pain it is doing significantly better. She however has numbing sensation down the lateral aspect of right lower leg just below knee level. She denies any pain running down her right posterior thigh. No recent falls. Overall patient doing much better but concerned about this new numbing sensation on the lateral aspect of right leg. Problem List Patient Active Problem List Diagnosis [...] Outpatient Medications Marked as Taking for the 05/11/21 encounter (Office Visit) with Tracy Olivares MD [...] 1 ??? gabapentin 100 MG capsule Take 1 capsule (100 mg total) by mouth 3 (three) times daily. 30 capsule 3 ??? Losartan Potassium-HCTZ 100-12.5 MG Tab Take 1 tablet by mouth daily. 90 tablet 1 ??? omeprazole 20 MG capsule Take 20 [...] Cardiovascular: Negative. Gastrointestinal: Negative. Genitourinary: Negative. Musculoskeletal: Negative for back pain, falls, joint pain, myalgias and neck pain. Skin: Negative. Neurological: Positive for tingling (Lateral aspect of right lower leg). Negative for dizziness, tremors, sensory change, speech change, focal weakness, seizures, loss of consciousness, weakness and headaches. Objective: Filed Vitals: 05/11/21 0951 BP: 127/75 Pulse: 96 Resp: 18 Temp: 97.5 ??F (36.4 ??C) TempSrc: Temporal SpO2: 96% Weight: 130.2 kg (287 lb) Height: 5' 3.5 (1.613 m) Body mass index is 50.04 kg/m??. General alert, cooperative, no distress HEENT [...] Encounter Diagnose(s) ICD-10-CM ICD-9-CM SNOMED CT(R) 1. Chronic bilateral low back pain with bilateral sciatica M54.42 724.2 CHRONIC LOW BACK PAIN gabapentin 100 MG capsule M54.41 724.3 G89.29 338.29 2. Idiopathic peripheral neuropathy G60.9 356.9 IDIOPATHIC PERIPHERAL NEUROPATHY gabapentin 100 MG capsule 1. Chronic bilateral low back pain with bilateral sciatica -Improved significantly patient has been contacted by physical therapy and plans to initiate physical therapy in the next few days. Patient is in the process of relocating and moving. Has completed her steroid pack and does note significant improvement in chronic low back pain. Currently using onlyTylenol as needed. At today's visit, his main complaint is that of tingling sensation down the lateral aspect of right lower leg just below knee level. This is new. Homans' sign negative. No concernsfor swelling right lower extremity. Low suspicion for DVT. -Start gabapentin 100 MG capsule; Take 1 capsule (100 mg total) by mouth 3 (three) times daily. Dispense: 30 capsule; Refill: 3 -Patient encouraged to continue with physical therapy -Patient encouraged to continue with stretch exercises -We will plan follow-up visits with patient to discuss weight loss 2. Idiopathic peripheral neuropathy -Tingling sensation along lateral aspect of right lower leg. This is new. Most likely due to pinched of nerve. - Start gabapentin 100 MG capsule; Take 1 capsule (100 mg total) by mouth 3 (three) times daily. Dispense: 30 capsule; Refill: 3 -Physical therapy already ordered and patient here to resume. 3. Morbid obesity with BMI of 50.04 kg/m?? -Patient not interested in starting weight loss medications at this time. She would like to defer to a subsequent visit. --Pt has elevated weight with BMI Body mass index is 50.04 kg/m??., and will need to work hard on reducing carbohydrates and total calories. -You may use the free smart phone apps such as [employer]Setter to help track calories and try to [...] per week and 5 pounds per month. -Will plan to discuss initiating weight loss medications during patient's subsequent visit Counseling given: Yes Comment: by Dr Olivares [...] was at least in part performed using [employer] and there may be some inherent flaws in this irrigationist due to the nature of this program. Tracy Olivares MD Internal Medicine [facility], [facility]. documented in this encounter Plan of Treatment Upcoming Encounters Date Type Department Care Team (Late st Contact Info) Description 10/03/2024 11:00 AM SENIOR SYSTEM OPERATOR Office Visit [facility] Medical [facility]ty [facility] - [address] [address] Nathan Baig MD [address] [place] [address] 11/14/2024 10:20 AM SENIOR SYSTEM OPERATOR Office Visit [facility] Multispecialty Care - [place] [address] [address] [place] [address] Tracy Olivares MD [address] [address] documented as of this encounter Visit Diagnoses Diagnosis Chronic bilateral low back pain with bilateral sciatica- Primary Idiopathic peripheral neuropathy Unspecified hereditary and idiopathic peripheral neuropathy Class 3 severe obesity due to excess calories without serious comorbidity with body mass index (BMI) of 50.0 to 59.9 in adult ([facility]) documented in this encounter Additional Health Concerns Assessment Noted Time PHQ-9 Depression Total Score: 9 04/14/20 21 10:21 AM CDT documented as of this encounter Care Teams Agriculture Research Director Relationship Specialty Start Date End Date Tracy Olivares MD [address] [place] [address] PCP - General INTERNAL MEDICINE 01/02/21 documented as of this encounter
--- OUTSIDE RECORDS SUMMARY | 2024-09-07 05:26 | XMS_ITS | Encounter Summary ---
Author Organization [facility] Address [address] [place] [address]. [place], [place] [address] [place] [address] Care Team Providers Care Adapted Physical Education Aide Name Role Phone Tracy Olivares MD Primary Care Provider [phone] Encounter Details Date Type Department Care Team (Latest Contact Info) Description 07/06/2021 Travel Social History Tobacco Use Types Packs/Day [...] st Contact Info) Description 10/03/2024 11:00 AM ONCOLOGY NURSE NAVIGATOR Office Visit [facility] Medical [facility] Specialty Clinic - [address] [place] [address] Nathan Baig MD [address] [place] [address] 11/14/2024 10:20 AM ONCOLOGY NURSE NAVIGATOR Office Visit [facility] Medical Group Multispecialty Care - [place] [address] [address] [place] [address] Tracy Olivares MD [address] [place] [address] documented as of this encounter Visit Diagnoses Not on filedocumented in this encounter Additional Health Concerns Assessment Noted Time PHQ-9 Depression Total Score: 3 07/06/20 21 9:34 AM CDT documented as of this encounter Care Teams Adapted Physical Education Aide Relationship Specialty Start Date End Date Tracy Olivares MD [address] [place] [address] PCP - General INTERNAL MEDICINE 01/02/21 documented as of this encounter
--- OUTSIDE RECORDS SUMMARY | 2024-09-07 05:27 | XMS_ITS | Encounter Summary ---
Author Organization [facility] Address [address] [place] [address]. [place], [place] [address] [place] [address] Care Team Providers Care Cross Country Truck Driver Name Role Phone Tracy Olivares MD Primary Care Provider [phone] Encounter Details Date Type Department Care Team (Late st Contact Info) Description 01/05/2021 Orders Only [facility] Medical Group Multispecialty Care - [place] [address] [address] [place] [address] [place] [address] [place] [address] [address] [place], [place] [id number] Social History Tobacco Use Types Packs/Day Years Used Date Smoking Tobacco: Former Cigarettes 0 09/12/1959 - 09/12/1984 Smokeless Tobacco: Never Comments:by Dr Olivares Alcohol Use Standard Drinks/Week Comments Not Currently 0 (1 standard drink = 0.6 oz pur e alcohol) PHQ-2 Answer Date Recorded PHQ-2 Score - If the patient scores above 3, please move on to questions 3-9 1 01/05/2021 Comments No Sex and Gender Information Value Date Recorded Sex Assigned at Not on file Legal Sex Female 8:25 PM CDT Gender Identity Not on file Sexual Orientation Not on file COVID-19 Exposure Response Date Recorded In the last month, have you been in contact with someone who was confirmed or suspected to have Coronavirus / COVID-19? No / Unsure 01/05/2021 10:28 AM CDT documented as of this encounter Plan of Treatment Upcoming Encounters Date Type Department Care Team (Late st Contact Info) Description 10/03/2024 11:00 AM MASTER OCEAN Office Visit [facility] - [place] [address] [facility] [address] [place] [address] Nathan Baig MD [address] [address] 11/14/2024 10:20 AM MASTER OCEAN Office Visit [facility] Medical [facility] Mult[facility]pecialty Care - [place] [address] [facility] [address] [place] [address] Tracy Olivares MD [address] [facility] [address] [place] [address] documented as of this encounter Procedures Procedure Name Priority Date/Time Associated Diagnosis Comments TSH W/REFLEX FT3 AND FT4 Routine 01/05/2021 12:51 PM CDT HEMOGLOBIN, GLYCOSYLATED Routine 01/05/2021 12:51 PM CDT COMPREHENSIVE METABOLIC PANEL Routine 01/05/2021 12:51 PM CDT CBC W/DIFF AUTOMATED Routine 01/05/2021 12:51 PM CDT documented in this encounter Results * (ABNORMAL) HEMOGLOBIN, GLYCOSYLATED (01/05/2021 12:51 PM CDT) HGB A1C 5.7(H) <5.7 % of [...] A1c for diagnosis of diabetes for children. 01/05/2021 12:5 1 PM CDT 01/05/2021 12:54 PM CDT Narrative [facility] - 01/06/2021 8:38 AM CDT PT VARIFIED ALL PT INFO FASTING:YES FASTING: YES Tracy Olivares MD LABORATORY Final Result Performing Organization Address [facility] Co de Phone Number [facility] [address] [place] [address] * TSH W/REFLEX FT3 AND FT4 (01/05/2021 12:51 PM CDT) TSH 1.59 0.40 - 4.50 mIU/L [facility] Comment: Our records indicate that you have ordered a client custom reflex order code. Only the initial test was performed because we do not have a client custom reflex testing authorization request form on file for you. Please contact a client relations representative if you would like additional testing done on this patient or contact your golf sales associate to obtain a client custom reflex testing authorization request form. 01/05/2021 12:5 1 PM CDT 01/05/2021 12:54 PM CDT Narrative [facility] - 01/06/2021 8:38 AM CDT PT VARIFIED ALL PT INFO FASTING:YES FASTING: YES Tracy Olivares MD LABORATORY Final Result Performing Organization Address [facility] Co de Phone Number [facility] [address] [place] [address] * CBC W/DIFF AUTOMATED (01/05/2021 12:51 PM CDT) WBC 7.3 3.8 - 10.8 Thousand/ uL [facility] RBC 4.13 3.80 - 5.10 Million/u L [facility] HGB 12.1 11.7 - 15.5 g/dL [facility] HCT 37.3 35.0 - 45.0 % [facility] MCV 90.3 80.0 - 100.0 fL [facility] MCH 29.3 27.0 - 33.0 pg [facility] MCHC 32.4 32.0 - 36.0 g/dL [facility] RDW 14.0 11.0 - 15.0 % [facility] PLT 313 140 - 400 Thousand/ uL [facility] MPV 10.2 7.5 - 12.5 fL [facility] ABS. NEUTROPHILS 4,628 1,500 - 7,800 cells/uL [facility] ABS. BANDS CANCELED 0 - 750 cells/uL [facility] Comment:Result canceled by t he ancillary. ABS. METAMYELOCYTES CANCELED 0 cells/uL [facility] Comment:Result canceled by t he ancillary. ABS. MYELOCYTES CANCELED 0 cells/uL [facility] Comment:Result canceled by t he ancillary. ABS. PROMYELOCYTES CANCELED 0 cells/uL [facility] Comment:Result canceled by t he ancillary. ABS. LYMPHOCYTES 2,081 850 - 3,900 cells/uL [facility] ABS. MONOCYTES 394 200 - 950 cells/uL [facility] ABS. EOSINOPHILS 153 15 - 500 cells/uL [facility] ABS. BASOPHILS 44 0 - 200 cells/uL [facility] ABS. BLASTS CANCELED 0 cells/uL [facility] Comment:Result canceled by t he ancillary. ABS. NUCLEATED RBC'S CANCELED 0 cells/uL [facility] Comment:Result canceled by t he ancillary. SEG NEUTROPHILS 63.4 % [facility] BANDS CANCELED % [facility] Comment:Result canceled by t he ancillary. METAMYELOCYTES CANCELED % [facility] Comment:Result canceled by t he ancillary. MYELOCYTES CANCELED % [facility] Comment:Result canceled by t he ancillary. PROMYELOCYTES CANCELED % [facility] Comment:Result canceled by t he ancillary. LYMPHOCYTES 28.5 % [facility] REACTIVE LYMPHS CANCELED 0 - 10 % [facility] Comment:Result canceled by t he ancillary. MONOCYTES 5.4 % [facility] EOSINOPHILS 2.1 % [facility] BASOPHILS 0.6 % [facility] BLASTS CANCELED % [facility] Comment:Result canceled by t he ancillary. NRBC CANCELED 0 /100 WBC [facility] Comment:Result canceled by t he ancillary. CBC COMMENT CANCELED [facility] Comment:Result canceled by t he ancillary. 01/05/2021 12:5 1 PM CDT 01/05/2021 12:54 PM CDT Narrative [facility] - 01/06/2021 8:38 AM CDT PT VARIFIED ALL PT INFO FASTING:YES FASTING: YES Tracy Olivares MD LABORATORY Final Result [facility] [address] [place] [address] * (ABNORMAL) COMPREHENSIVE METABOLIC PANEL (01/05/2021 12:51 PM CDT) Pathologist [facility] GLUCOSE 152(H) 65 - 99 mg/dL [facility] Comment: ? Fasting reference interval For someone without known diabetes, a glucose value >125 mg/dL indicates that they may have diabetes and this should be confirmed with a follow-up test. BUN 18 7 - 25 mg/dL [facility] CREATININE S/P/B 0.85 0.50 - 0.99 mg/dL [facility] Comment: For patients >49 years of age, the reference limit for Creatinine is approximately 13% higher for people identified as -Russian. EGFR NON-AFR. AMER. 72 > OR = 60 mL/min/1 .73m2 [facility] EGFR AFR. AMER. 83 > OR = 60 mL/min/1 .73m2 [facility] BUN CREATININE RATIO NOT APPLICABLE 6 - 22 (calc) [facility] SODIUM S/P/B 140 135 - 146 mmol/L [facility] POTASSIUM S/P/B 4.2 3.5 - 5.3 mmol/L [facility] CHLORIDE S/P/B 103 98 - 110 mmol/L [facility] CO2 29 20 - 32 mmol/L [facility] CALCIUM S/P/B 9.6 8.6 - 10.4 mg/dL [facility] TOTAL PROTEIN S/P/B 7.1 6.1 - 8.1 g/dL [facility] ALBUMIN S/P/B 3.8 3.6 - 5.1 g/dL [facility] GLOBULIN 3.3 1.9 - 3.7 g/dL (calc) [facility] ALBUMIN/GLOBULIN RATIO 1.2 1.0 - 2.5 (calc) [facility] BILIRUBIN TOTAL S/P/B 0.4 0.2 - 1.2 mg/dL [facility] ALKALINE PHOSPHATASE S/P/B 121 37 - 153 U/L [facility] AST 13 10 - 35 U/L [facility] ALT 12 6 - 29 U/L [facility] 01/05/2021 12:5 1 PM CDT 01/05/2021 12:54 PM CDT Narrative [facility] - 01/06/2021 8:38 AM CDT PT VARIFIED ALL PT INFO FASTING:YES FASTING: YES Tracy Olivares MD LABORATORY Final Result [facility] [address] [address] [address] documented in this encounter Visit Diagnoses Not on filedocumented in this encounter Additional Health Concerns Assessment Noted Time PHQ-9 Depression Total Score: 6 01/06/20 21 12:11 PM CDT documented as of this encounter Care Teams Cross Country Truck Driver Relationship Specialty Start Date End Date Tracy Olivares MD [facility] [address] [address] PCP - General INTERNAL MEDICINE 01/02/21 documented as of this encounter
--- OUTSIDE RECORDS SUMMARY | 2024-09-07 05:27 | XMS_ITS | Encounter Summary ---
Author Organization [facility] Address [address] [place] [address]. [place], [place] [address] [place] [address] Care Team Providers Care Final Canoe Inspector Name Role Phone Unavailable Primary Care Provider Unavailabl e Encounter Details Date Type Department Care Team (Latest Contact Info) Description 01/11/2013 Abstract [facility] Medical Group Social History Tobacco Use Types Packs/Day Years Used Date Smoking Tobacco: Never Assessed Comments Unknown Sex and Gender Information Value Date Recorded Sex Assigned at Not on file Legal Sex Female 8:25 PM CDT Gender Identity Not on file Sexual Orientation Not on file documented as of this encounter Plan of Treatment Upcoming Encounters Date Type Department Care Team (Late st Contact Info) Description 10/03/2024 11:00 AM COMMUNITY BOARD MEMBER Office Visit [facility] Medical [facility] Pulmonology Specialty Clinic - [address] [address] Nathan Baig MD [address] [place] [address] 11/14/2024 10:20 AM COMMUNITY BOARD MEMBER Office Visit [facility] Medical Group Multispecialty Care - [place] [address] [address] [place] [address] Tracy Olivares MD [address] [place] [address] documented as of this encounter Visit Diagnoses Not on filedocumented in this encounter
--- OUTSIDE RECORDS SUMMARY | 2024-09-07 05:27 | XMS_ITS | Encounter Summary ---
Author Organization [facility] Address [address] [place] [address]. [place], [place] [address] [place] [address] Care Team Providers Care Form Worker Name Role Phone Tracy Olivares MD Primary Care Provider [phone] Encounter Details Date Type Department Care Team (Latest Contact Info) Description 01/05/2021 Travel Social History Tobacco Use Types Packs/Day [...] st Contact Info) Description 10/03/2024 11:00 AM MUSEUM SERVICE SCHEDULER Office Visit [facility] Pul[facility]ology Specialty Clinic - [place] [address] [address] [place] [address] Nathan Baig MD [address] [place] [address] 11/14/2024 10:20 AM MUSEUM SERVICE SCHEDULER Office Visit [facility] Multispecialty Care - [place] [address] [address] [place] [address] [place] [address] [place] [address] documented as of this encounter Visit Diagnoses Not on filedocumented in this encounter Additional Health Concerns Assessment Noted Time PHQ-9 Depression Total Score: 6 01/06/20 21 12:11 PM CDT documented as of this encounter Care Teams Form Worker Relationship Specialty Start Date End Date Tracy Olivares MD [address] [place] [address] PCP - General INTERNAL MEDICINE 01/02/21 documented as of this encounter
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
--- OUTSIDE RECORDS SUMMARY | 2024-09-07 05:27 | XMS_ITS | Encounter Summary ---
Author Organization [facility] Address [address] [place] [address]. [place] [address] [place] [address] Care Team Providers Care Pan Helper Name Role Phone Unavailable Primary Care Provider Unavailabl e Encounter Details Date Type Department Care Team (Late st Contact Info) Description 02/19/2013 Abstract [facility] Medical Group Multispecialty Care - [address], [address] [place] [phone] Ramiro Guzmán MD Social History Tobacco Use Types Packs/Day Years Used Date Smoking Tobacco: Never Assessed Comments Unknown Sex and Gender Information Value Date Recorded Sex Assigned at Not on file Legal Sex Female 8:25 PM CDT Gender Identity Not on file Sexual Orientation Not on file documented as of this encounter Progress Notes * Ramiro Guzmán MD - 02/19/2013 10:30 AM CDT Chief Complaint DR. CORNEL VALVERDE PCP Active Problems 1. Pain In The Arms 729.5 Lower Back Pain 724.2 Past Medical History 1. History of Abdominal Pain 789.00 2. History of Anemia 285.9 3. History of Anxiety 300.00 4. History of Arthritis V13.4 5. History of Asthma 493.90 6. History of Bronchiolitis 466.19 7. History of Carpal Tunnel Syndrome 354.0 8. History of Chronic Obstructive Pulmonary Disease 496 9. History of Depression 311 10. History of Diabetes Mellitus 250.00 11. History of Edema 782.3 12. History of Emphysema 492.8 13. History of Hearing Loss 389.9 14. History of Hypertension 401.9 15. History of Joint Pain, Localized 719.40 16. History of Limb Weakness Temporary 781.4 17. History of Lower Back Pain 724.2 18. History of Neck Pain 723.1 19. History of Numbness (Hypesthesia) 782.0 20. History of Sinusitis 473.9 Surgical History 1. History of Cholecystectomy 2. History of Dilation And Curettage 3. History of Neuroplasty Median Nerve At Carpal Tunnel 4. History of Oophorectomy V88.01 5. History of Tubal Ligation V25.2 Family History 1. Family history of Father At Age ____ Social History ?? Currently On Permanent Disability ?? Former Smoker V15.82 ?? Marital History - V61.03 Denied ?? History of Alcohol Use Current Meds 1. Advair Diskus 250-50 MCG/DOSE Inhalation Aerosol Powder Breath Activated; INHALE 1 PUFF TWICE DAILY; Therapy: (Recorded:[id number]) to 2. Aspirin 81 MG Oral Tablet; Therapy: (Recorded:24Jul2012) to 3. Ibuprofen 800 MG Oral Tablet; TAKE 1 TABLET BY MOUTH EVERY 6 HOURS; Therapy: 24Feb2012 to 4. Losartan Potassium-HCTZ 100-12.5 MG Oral Tablet; TAKE 1 TABLET BY MOUTH EVERY DAY; Therapy: 18Jan2012 to 5. Meloxicam 7.5 MG Oral Tablet; TAKE 1 TABLET TWICE DAILY; Therapy: [id number] to (Evaluate:24Nov2012) Requested for: [id number]; Last Rx:[id number] Allergies 1. Aspirin TABS 2. Darvon CAPS NGUAL MEDICAL ASSISTANT documented in this encounter Plan of Treatment Upcoming Encounters Date Type Department Care Team (Late st Contact Info) Description 10/03/2024 11:00 AM BILINGUAL MEDICAL ASSISTANT Office Visit [facility] Medical Group Pul[facility]ology Specialty Clinic - [address] [place] [address] Nathan Baig MD [address] [place] [address] 11/14/2024 10:20 AM BILINGUAL MEDICAL ASSISTANT Office Visit [facility] Medical Group Multispecialty Care - [address] [place] [address] Tracy Olivares MD [address] [place] [address] documented as of this encounter Visit Diagnoses Not on filedocumented in this encounter
--- OUTSIDE RECORDS SUMMARY | 2024-09-07 05:27 | XMS_ITS | Encounter Summary ---
Author Organization [facility] Address [address] [place] [address]. [place] [id number] [place] [address] Care Team Providers Care [employer] Rep Name Role Phone Tracy Olivares MD Primary Care Provider [phone] Reason for Visit * Reason Onset Date Comments Referral Request 01/12/2021 Encounter Details Date Type Department Care Team (Late st Contact Info) Description 01/12/2021 Telephone [facility] Medical Group Multispecialty Care - [address] [place] [address] Suzan Strauss NP Referral Request Social History Tobacco Use Types Packs/Day [...] as of this encounter Progress Notes * Suzan Strauss NP - 01/12/2021 10:05 AM CDT Referral completed and in chart if she needs it * Sadi Byrd - 01/12/2021 9:28 AM CDT Patient needs referral sent to [facility] in [place]. She has an appointment with themon January 15. Thanks documented in this encounter Plan of Treatment Upcoming Encounters Date Type Department Care Team (Late st Contact Info) Description 10/03/2024 11:00 AM PRODUCTION TEAM LEADER Office Visit [facility] Medical Group Pul[facility]ology Specialty Clinic - [address] [address] Nathan Baig MD [address] [place] [address] 11/14/2024 10:20 AM PRODUCTION TEAM LEADER Office Visit [facility] Medical [facility] Multispecialty Care - [place] [address] [address] [place] [address] Tracy Olivares MD [facility] [address] documented as of this encounter Visit Diagnoses Not on filedocumented in this encounter Additional Health Concerns Assessment Noted Time PHQ-9 Depression Total Score: 6 01/06/20 21 12:11 PM CDT documented as of this encounter Care Teams [employer] Rep Relationship Specialty Start Date End Date Tracy Olivares MD [address] [place] [id number] PCP - General INTERNAL MEDICINE 01/02/21 documented as of this encounter
--- OUTSIDE RECORDS SUMMARY | 2024-09-07 05:27 | XMS_ITS | Encounter Summary ---
Author Organization [facility] Address [address] [place] [address]. [place], [place] [address] [place] [address] Care Team Providers Care Sheather Name Role Phone Tracy Olivares MD Primary Care Provider [phone] Reason for Visit * Reason Comments Image (SCAN) MRI (SCAN) Encounter Details Date Type Department Care Team ([facility] Contact Info) Description 01/06/2021 Scan HEALTH INFO SRVCS Scanned, Documents Image (SCAN); MRI (SCAN) Social History Tobacco Use Types [...] have Coronavirus / COVID-19? No / Unsure 01/20/2021 9:42 AM CDT documented as of this encounter Plan of Treatment Upcoming Encounters Date Type Department Care Team ([facility] Contact Info) Description 10/03/2024 11:00 AM CORE PASTER Office Visit [facility] Medical Group Pulmonology Specialty Clinic - [address] [place], [place] [address] Nathan Baig MD [address] [address] 11/14/2024 10:20 AM CORE PASTER Office Visit [facility] Medical Group Multispecialty Care - [place] [address] [address] [address] [place] [address] Tracy Olivares MD [address] [facility] [address] [place] [address] documented as of this encounter Procedures Procedure Name Priority Date/Time Associated Diagnosis Comments MRI GENERIC 01/06/2021 IMAGE GENERIC 01/06/2021 IMAGE GENERIC 01/06/2021 documented in this encounter Results * IMAGE GENERIC (01/06/2021) Anatomical Region Laterality Modality Other 01/06/2021 Narrative 01/06/2021 Ordered by an unspecified provider. us Documents Scanned SCANNING Final Result * IMAGE GENERIC (01/06/2021) Anatomical Region Laterality Modality Other 01/06/2021 Narrative 01/06/2021 Ordered by an unspecified provider. us Documents Scanned SCANNING Final Result * MRI GENERIC (01/06/2021) Anatomical Region Laterality Modality Other 01/06/2021 Narrative 01/06/2021 Ordered by an unspecified provider. us Documents Scanned SCANNING Final Result documented in this encounter Visit Diagnoses Not on filedocumented in this encounter Additional Health Concerns Assessment Noted Time PHQ-9 Depression Total Score: 6 01/06/20 21 12:11 PM CDT documented as of this encounter Care Teams Sheather Relationship Specialty Start Date End Date Tracy Olivares MD [address] [address] PCP - General INTERNAL MEDICINE 01/02/21 documented as of this encounter
--- OUTSIDE RECORDS SUMMARY | 2024-09-07 05:27 | XMS_ITS | Encounter Summary ---
Author Organization [facility] Address [address] [place] [address]. [place], [place] [address] [place] [address] Care Team Providers Care Citrix Architect Name Role Phone Tracy Olivares MD Primary Care Provider [phone] Reason for Visit * Reason Comments Mammogram (SCAN) Encounter Details Date Type Department Care Team ([facility] Contact Info) Description 09/03/2020 Scan [facility] HEALTH INFO SRVCS Scanned, Documents Mammogram (SCAN) Social History Tobacco Use Types Packs/Day Years Used Date Smoking Tobacco: Never Assessed PHQ-2 Answer Date Recorded PHQ-2 Score - If the patient scores above 3, please move on to questions 3-9 1 01/05/2021 Comments Unknown Sex and Gender Information Value [...] Upcoming Encounters Date Type Department Care Team ([facility] Contact Info) Description 10/03/2024 11:00 AM BISQUE KILN PLACER Office Visit [facility] Medical Group Pulmonology Specialty Clinic - [address] [place] [address] Nathan Baig MD [address] [place] [address] 11/14/2024 10:20 AM BISQUE KILN PLACER Office Visit [facility] Medical Group Multispecialty Care - [place] [address] [address] [place] [address] Tracy Olivares MD [address] [place] [address] documented as of this encounter Procedures Procedure Name Priority Date/Time Associated Diagnosis Comments MAMMOGRAM GENERIC (SCAN ORDER) 09/03/2020 documented in this encounter Results * MAMMOGRAM GENERIC (09/03/2020) Anatomical Region Laterality Modality Other 09/03/2020 Narrative 09/03/2020 Ordered by an unspecified provider. us Documents Scanned SCANNING Final Result documented in this encounter Visit Diagnoses Not on filedocumented in this encounter Care Teams Citrix Architect Relationship Specialty Start Date End Date Tracy Olivares MD [address] [place] [address] PCP - General INTERNAL MEDICINE 01/02/21 documented as of this encounter
--- OUTSIDE RECORDS SUMMARY | 2024-09-07 05:27 | XMS_ITS | Encounter Summary ---
Author Organization [facility] Address [address] [place] [address]. [place] [address] [place] [address] Care Team Providers Care Ice Cream Freezer Name Role Phone Unavailable Primary Care Provider Unavailabl e Encounter Details Date Type Department Care Team (Late st Contact Info) Description 12/11/2012 Abstract [facility] Medical Group Multispecialty Care - [address], [address] [place] [phone] Ramiro Guzmán MD Social History Tobacco Use [...] Sign Reading Time Taken Comments Blood Pressure 134/73 12/11/2012 12:09 PM CDT Pulse 75 12/11/2012 12:09 PM CDT Temperature - - Respiratory Rate - - Oxygen Saturation - - Inhaled Oxygen Concentration - - Weight 131.1 kg (289 lb) 12/11/2012 12:09 PM CDT Height 170.2 cm (5' 7 ) 12/11/2012 12:09 PM CDT Body Mass Index 45.26 12/11/2012 12:09 PM CDT documented in this encounter Progress Notes * Ramiro Guzmán MD - 12/11/2012 11:30 AM CDT Chief Complaint LAST SEEN 08/23....TODAY, C/O LOW BACK, AND RT LEG PAIN....WITH NUMBNESS ON CALF... PAIN IS CONSTANT.... SHE IS GOING TO HAVE HYST... 12/31/12... HER MANAGER PERFORMANCE IMPROVEMENT DOCTOR WANTS TO KNOW IF SHE IS OK TO HAVE SURGERY... SHE WILL BE ON HER BACK FOR 3 HOURS DURING SURGERY. PCP: ABRAM History of Present Illness Patient is established in this practice. She was last seen August 2012. At that time left arm complaints had resolved. She has chronic intermittent lumbar spinal pain which have been managed with Flexeril and a steroid pulse. There were no active surgical issues. She was released from my care. Apparently several weeks after she was released from my care she began developing intermittent right leg pain. This apparently has worsened over the last 4 months. There is a smaller component that involves her lumbar spine. Although she has had no recent imaging apparently she's had an MRI scan from a few years ago which is not available for my review today. The patient has a hysterectomy planned in the next few weeks and her BODY ENGINEER is seeking spinal clearance. Apparently she will be laying on her back for 3 hours. Neurologic examination Lumbar spine moderate bilateral sacroiliac tenderness, Fausto's maneuver the negative, seated straight leg raising negative Lower extremity examination strength 5 out 5 Clinically this patient may have some nerve impingement. I need to review her old MRI of lumbar spine. She also has bilateral sacroiliitis which can be managed with fluoroscopically guided SI joint injections. I do not foresee holding up her planned hysterectomy. I will try to see her in the next few weeks to facilitate her MANAGER PERFORMANCE IMPROVEMENT procedure. Total time of visit 15 minutes. Greater than 50% of total face to face time was spent counseling and coordination of care. Active Problems 1. Pain In The Arms 729.5 Past Medical History 1. History of Abdominal [...] 1 PUFF TWICE DAILY; Therapy: (Recorded:20Apr2012) to 2. Aspirin 81 MG Oral Tablet; Therapy: (Recorded:24Jul2012) to 3. Cyclobenzaprine HCl 10 MG Oral Tablet; TAKE 1 TABLET BY MOUTH EVERY 8 HOURS NEEDED; Therapy: 24Feb2012 to 4. Hydrocodone-Acetaminophen 5-325 MG Oral Tablet; TAKE 1 TO 2 TABLETS BY MOUTH EVERY 6 HOURS NEEDED; Therapy: 08Aug2012 to 5. Hydrocodone-Acetaminophen 5-500 MG Oral Tablet; TAKE 1-2 TABLETS BY MOUTH NEEDED EVERY 4-6 HOURS; Therapy: 21Feb2012 to 6. Ibuprofen 800 MG Oral Tablet; TAKE 1 TABLET BY MOUTH EVERY 6 HOURS; Therapy: 24Feb2012 to 7. Losartan Potassium-HCTZ 100-12.5 MG Oral Tablet; TAKE 1 TABLET BY MOUTH EVERY DAY; Therapy: 18Jan2012 to 8. Meloxicam 7.5 MG Oral Tablet; TAKE 1 TABLET TWICE DAILY; Therapy: [id number] to (Evaluate:24Nov2012) Requested for: [id number]; Last Rx:[id number] Allergies 1. Aspirin TABS 2. Darvon CAPS Vitals 11Dec2012 12:09PM Heart Rate 75 Systolic 134 Diastolic 73 BMI Calculated 45.36 BSA Calculated 2.36 Height 5 ft 7 in Weight 289 lb Assessment 1. Lower Back Pain 724.2 Signatures Electronically signed by : Ramiro Guzmán M.D.; Dec 11 2012 12:32PM (Author) STRIPER documented in this encounter Plan of Treatment Upcoming Encounters Date Type Department Care Team (Late st Contact Info) Description 10/03/2024 11:00 AM GUN STRIPER Office Visit [facility] Medical Group Pulmonology Specialty Clinic - [address] [address] Nathan Baig MD [address] [place] [address] 11/14/2024 10:20 AM GUN STRIPER Office Visit [facility] Medical [facility] Multispecialty Care - [place] [address] [address] [place] [address] Tracy Olivares MD [address] [address] documented as of this encounter Visit Diagnoses Not on filedocumented in this encounter
--- OUTSIDE RECORDS SUMMARY | 2024-09-07 05:27 | XMS_ITS | Encounter Summary ---
Author Organization [facility] Address [address] [place] [address]. [place] [id number] Care Team Providers Care Book Store Associate Name Role Phone Tracy Olivares MD Primary Care Provider [phone] Reason for Visit * Reason Onset Date Comments Results 01/06/2021 colonoscopy repo rt 2020 Encounter Details Date Type Department Care Team (Late st Contact Info) Description 01/06/2021 Telephone [facility] Multispecialty Care - [address] [place] [address] [place] [address] [place] [address] 157 [place] [address] Results (colonoscopy report 2020) Social History Tobacco Use Types Packs/Day Years [...] as of this encounter Progress Notes * Tarcy Olivares MD - 01/06/2021 10:26 AM CDT Received records for patient colonoscopy done on 05/26/2020. Normal colonoscopy, recommend high fiber dieet, repeat scope in 10 years. Scanned to media tab. Tracy Olivares MD Internal Medicine [facility]. documented in this encounter Plan of Treatment Upcoming Encounters Date Type Department Care Team (Late st Contact Info) Description 10/03/2024 11:00 AM DIRECTOR OF SALES SUPPORT Office Visit [facility] Pulmonology Specialty Clinic - [address] [address] Nathan Baig MD [address] [place] [address] 11/14/2024 10:20 AM DIRECTOR OF SALES SUPPORT Office Visit [facility] Multispecialty Care - [place] [address] [address] [place] [address] Tracy Olivares MD [facility] [address] [address] documented as of this encounter Visit Diagnoses Not on filedocumented in this encounter Additional Health Concerns Assessment Noted Time PHQ-9 Depression Total Score: 6 01/06/20 21 12:11 PM CDT documented as of this encounter Care Teams Book Store Associate Relationship Specialty Start Date End Date Tracy Olivares MD [address] [place] [address] PCP - General INTERNAL MEDICINE 01/02/21 documented as of this encounter
--- OUTSIDE RECORDS SUMMARY | 2024-09-07 05:27 | XMS_ITS | Encounter Summary ---
Author Organization [facility] Address [address] [place] [address]. [place] [address] [place] [address] Care Team Providers Care Artificial Inseminator Name Role Phone Unavailable Primary Care Provider Unavailabl e Encounter Details Date Type Department Care Team (Late st Contact Info) Description 12/18/2012 Abstract [facility] Care - [facility] [address] [facility], [address] [place] [address] Ramiro Guzmán MD Social History Tobacco Use [...] Sign Reading Time Taken Comments Blood Pressure 144/86 12/18/2012 2:05 PM CDT Pulse 76 12/18/2012 2:05 PM CDT Temperature - - Respiratory Rate - - Oxygen Saturation - - Inhaled Oxygen Concentration - - Weight 131.1 kg (289 lb) 12/18/2012 2:05 PM CDT Height 170.2 cm (5' 7 ) 12/18/2012 2:05 PM CDT Body Mass Index 45.26 12/18/2012 2:05 PM CDT documented in this encounter Progress Notes * Ramiro Guzmán MD - 12/18/2012 2:30 PM CDT Chief Complaint Referring Dr Colunga Brought in MRI. States pain in leg is less since medication---a lot better. Continues to have neck and low back pain. History of Present Illness Patient continues to suffer from chronic lumbar spinal pain. She scheduled for her hysterectomy January 03, 2013. Unfortunately she did not bring the MRI of the lumbar spine for review today. However the anti-inflammatory medication we started her on has helped tremendously with her back pain. Today's examination she only has mild sacroiliitis. I cautioned her to stop her anti-inflammatory medication 10 days before her planned hysterectomy. I'll see her in 6-8 weeks' time. Active Problems 1. Lower Back Pain 724.2 2. Pain In The Arms 729.5 Past Medical [...] 1 TABLET BY MOUTH EVERY DAY; Therapy: [id number] to 5. Meloxicam 7.5 MG Oral Tablet; TAKE 1 TABLET TWICE DAILY; Therapy: [id number] to (Evaluate:24Nov2012) Requested for: [id number]; Last Rx:[id number] Allergies 1. Aspirin TABS 2. Darvon CAPS Vitals 18Dec2012 02:05PM Heart Rate 76 Systolic 144 Diastolic 86 BMI Calculated 45.36 BSA Calculated 2.36 Height 5 ft 7 in Weight 289 lb Assessment 1. Lower Back Pain 724.2 Signatures Electronically signed by : Ramiro Guzmán M.D.; Dec 18 2012 2:18PM (Author) BILITY LIAISON OFFICER documented in this encounter Plan of Treatment Upcoming Encounters Date Type Department Care Team (Late st Contact Info) Description 10/03/2024 11:00 AM DISABILITY LIAISON OFFICER [facility] - [address] [address] Nathan Baig MD [address] [place] [address] 11/14/2024 10:20 AM DISABILITY LIAISON OFFICER Office Visit [facility] Multispecialty Care - [place] [address] [address] [place] [address] Tracy Olivares MD [address] [place] [address] documented as of this encounter Visit Diagnoses Not on filedocumented in this encounter
--- OUTSIDE RECORDS SUMMARY | 2024-09-07 05:27 | XMS_ITS | Encounter Summary ---
Author Organization [facility] - [facility] Address [address] [place] [address]. [place] [id number] [place] [address] Care Team Providers Care Supervisor Melt House Name Role Phone Tracy Olivares MD Primary Care Provider [phone] Nathan Bagi MD Unavailable [phone] Marisel Mancini RN Unavailable [phone] Encounter Details Date Type Department Care Team (Latest Contact Info) Description 02/11/2021 [employer]riving [employer] Message Enc [facility] Medical Group Multispecialty Care - [place] [address] [place] [address] [address] [place] [address] [place] [address] [place] [address] [address] [place], [place] [phone] medication refilled. Social History Tobacco Use Types Packs/Day Years [...] have Coronavirus / COVID-19? No / Unsure 02/06/2021 1:55 PM CDT documented as of this encounter Plan of Treatment Upcoming Encounters Date Type Department Care Team (Late st Contact Info) Description 10/03/2024 11:00 AM HRIS COORDINATOR Office Visit [facility] Medical Group Pulmonology Specialty Clinic - [address] [address] Nathan Baig MD [address] [facility] [address] [place] [address] 11/14/2024 10:20 AM HRIS COORDINATOR Office Visit [facility] Medical [facility] Multispecialty Care - [place] [address] [address] [place] [address] [place] [address] [place] [address] documented as of this encounter Visit Diagnoses Not on filedocumented in this encounter Additional Health Concerns Infection Onset Date Last Indicated Resolved Time COVID-19 Rule Out 01/19/2022 01/19/2022 01/19/2022 12:59 PM CDT COVID-19 Confirmed 01/19/2022 01/19/2022 12:32 AM CDT COVID-19 Rule Out 05/20/2022 05/20/2022 05/20/2022 10:50 AM CDT COVID-19 Rule Out 05/20/2022 05/20/2022 05/21/2022 1:20 AM CDT Assessment Noted Time PHQ-9 Depression Total Score: 6 01/06/20 21 12:11 PM CDT documented as of this encounter Care Teams Supervisor Melt House Relationship Specialty Start Date End Date Tracy Olivares MD [address] [place] [address] PCP - General INTERNAL MEDICINE 01/02/21 Nathan Baig MD [address] [facility] [address] [place] [address] Consulting Physician Internal Medicine Pulmonary Disease 09/16/21 Marisel Mancini, RN [address] [place] [address] Clerk Of Scales (Ambulatory) REGISTERED NURSE 06/28/24 08/07/24 documented as of this encounter
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
--- OUTSIDE RECORDS SUMMARY | 2024-09-07 05:27 | XMS_ITS | Encounter Summary ---
Author Organization [facility] Address [address] [place] [address]. [place], [place] [address] [place] [address] Care Team Providers Care Manager Of Planning Name Role Phone Unavailable Primary Care Provider Unavailabl e Encounter Details Date Type Department Care Team (Latest Contact Info) Description 02/21/2012 Abstract [facility] Medical Group Social History Tobacco Use Types [...] st Contact Info) Description 10/03/2024 11:00 AM AIRCRAFT AVIONICS TECHNICIAN Office Visit [facility] Medical Group Pulmonology Specialty Clinic - [address] [address] Nathan Baig MD [address] [place] [address] 11/14/2024 10:20 AM AIRCRAFT AVIONICS TECHNICIAN Office Visit [facility] Medical Group Multispecialty Care - [place] [address] [address] [place] [address] Tracy Olivares MD [address] [place] [address] documented as of this encounter Visit Diagnoses Not on filedocumented in this encounter
--- OUTSIDE RECORDS SUMMARY | 2024-09-07 05:27 | XMS_ITS | Encounter Summary ---
Author Organization [facility] - [facility] Address [address] [place] [address]. [place], [place] [address] [place] [address] Care Team Providers Care Mule Operator Name Role Phone Tracy Olivares MD Primary Care Provider [phone] Reason for Referral * Consultation (Routine) - Closed Specialty Diagnoses / Procedures Referred By Contac t Referred To Contact [facility] Diagnoses FAISAL on CPAP Tracy Olivares MD [address] [place] [address] Phone: tel: fax: Nathan Baig MD [address] [place] [address] Phone: tel: fax: Referral ID Status Reason Start Date Expiration Date V isits Requested Visits Authorized [id number] Closed Specialty Services 01/21/2021 02/22/2022 1 1 Scheduling Instructions APPT 05/22/21 Reason for Visit * Reason Onset Date Comments Referral Request 01/21/2021 Encounter Details Date Type Department Care Team (Late st Contact Info) Description 01/21/2021 Telephone [facility] Medical Group Multispecialty Care - [place] [address] [address] [place] [address] Tracy Olivares MD [address] [place] [address] Referral Request Social History Tobacco Use Types [...] as of this encounter Progress Notes * Sisi Johns MA - 01/21/2021 12:[address] Baig's office is requesting referral for 05/22/2021 appt. Referral placed documented in this encounter Plan of Treatment Upcoming Encounters Date Type Department Care Team (Late st Contact Info) Description 10/03/2024 11:00 AM RADIO SPORTSCASTER Office Visit [facility] Pulmonology Specialty Clinic - [address] [address] Nathan Baig MD [address] [place] [address] 11/14/2024 10:20 AM RADIO SPORTSCASTER Office Visit [facility] Group Multispecialty Care - [place] [address] [address] [place] [address] Tracy Olivares MD [address] [place] [address] 157 [place] [address] Scheduled Referrals Name Type Priority Associated Diagnoses Orde r Schedule Ambulatory referral to Pulmonology ([facility]) Referral Routine FAISAL on CPAP Ordered: 01/21/2021 documented as of this encounter Visit Diagnoses Diagnosis FAISAL on CPAP- Primary Obstructive sleep apnea (adult) (pediatric) documented in this encounter Additional Health Concerns Assessment Noted Time PHQ-9 Depression Total Score: 6 01/06/20 21 12:11 PM CDT documented as of this encounter Care Teams Mule Operator Relationship Specialty Start Date End Date Tracy Olivares MD [address] [address] PCP - General INTERNAL MEDICINE 01/02/21 documented as of this encounter
--- OUTSIDE RECORDS SUMMARY | 2024-09-07 05:27 | XMS_ITS | Encounter Summary ---
Author Organization [facility] Address [address] [place] [address]. [place] [id number] [place] [address] Care Team Providers Care Electrotyper Apprentice Name Role Phone Tracy Olivares MD Primary Care Provider [phone] Reason for Visit * Reason Onset Date Comments Follow Up Call 01/06/2021 Encounter Details Date Type Department Care Team (Late st Contact Info) Description 01/06/2021 Telephone [facility] Medical Group Multispecialty Care - [place] [address] [address] [place] [address] Tracy Olivares MD [address] [place] [address] 157 [place] [address] Follow Up Call Social History [...] Progress Notes * Tracy Olivares MD - 01/06/2021 11:54 AM CDTSummary: patient call ----- Message from Parul Arora MA sent at 01/06/2021 11:27 AM CDT ----- Regarding: ER pt 2 I forgot to add in the last message her daughters phone number is [phone]. She is worried because they are not doing anything to help control her pain, and feels they are neglecting her mom. ADDENDUM: I called patients daughter on [phone] about above concerns and was told patient was finally being seen by a provider and that is being taken for imaging of her hip. I made daughter aware to reach out after discharge if patient is not doing well. She was grateful for the call and verbalized understanding. Tracy Olivares MD Internal Medicine [facility]. ' documented in this encounter Plan of Treatment Upcoming Encounters Date Type Department Care Team (Late st Contact Info) Description 10/03/2024 11:00 AM EQUINE VET Office Visit [facility] Pulmonology Specialty Clinic - [address] [address] Nathan Baig MD [address] [place] [address] 11/14/2024 10:20 AM EQUINE VET Office Visit [facility] Multispecialty Care - [place] [address] [address] [place] [address] Tracy Olivares MD [address] [place] [address] documented as of this encounter Visit Diagnoses Not on filedocumented in this encounter Additional Health Concerns Assessment Noted Time PHQ-9 Depression Total Score: 6 01/06/20 21 12:11 PM CDT documented as of this encounter Care Teams Electrotyper Apprentice Relationship Specialty Start Date End Date Tracy Olivares MD [address] [facility] [address] [place] [address] PCP - General INTERNAL MEDICINE 01/02/21 documented as of this encounter
--- OUTSIDE RECORDS SUMMARY | 2024-09-07 05:27 | XMS_ITS | Encounter Summary ---
Author Organization [facility] Address [address] [place] [address]. [place], [place] [address] [place] [address] Care Team Providers Care Stabilizing Machine Operator Name Role Phone Unavailable Primary Care Provider Unavailabl e Encounter Details Date Type Department Care Team (Late st Contact Info) Description 03/30/1999 Abstract [facility] CONVERSION [address] [place] [address] , Generic MD Clarence Social History Tobacco Use Types Packs/Day Years [...] st Contact Info) Description 10/03/2024 11:00 AM FLOCCULATOR OPERATOR Office Visit [facility] Medical Group Pulmonology Specialty Clinic - [address] [address] Nathan Baig MD [address] [place] [address] 11/14/2024 10:20 AM FLOCCULATOR OPERATOR Office Visit [facility] Medical Group Multispecialty Care - [place] [address] [address] [place] [address] Tracy Olivares MD [address] [place] [address] documented as of this encounter Visit Diagnoses Not on filedocumented in this encounter
--- OUTSIDE RECORDS SUMMARY | 2024-09-07 05:27 | XMS_ITS | Encounter Summary ---
Author Organization [facility] Address [address] [place] [address]. [place] [id number] Care Team Providers Care Director Of Athletics Name Role Phone Tracy Olivares MD Primary Care Provider [phone] Reason for Visit * Reason Comments Back Pain * Physical Medicine (Routine) - Closed Specialty Diagnoses / Procedures Referred By Contac t Referred To Contact PHYSICAL THERAPY / [facility] Physical Therapy Diagnoses Low back pain due to bilateral sciatica Chronic left shoulder pain Tracy Olivares MD [address] [address] Phone: tel: fax: [facility] [address] [place] [address] Phone: tel: fax: Referral ID Status Reason Start Date Expiration Date V isits Requested Visits Authorized [id number] Closed Physical Therapy 01/20/2021 02/19/2022 10 10 Encounter Details Date Type Department Care Team (Late st Contact Info) Description 02/06/2021 2:15 PM CDT Office Visit [facility] [address] [place] [address] Tracy Olivares MD Formerly [facility] [address] [address] Shukri Rodgers PT Back Pain Social History Tobacco Use Types [...] of this encounter Progress Notes * Shukri Rodgers, PT - 02/06/2021 2:15 PM CDT Physical Therapy Evaluation Date: 02/06/2021 Patient Name: Keegan Amaya : 1955 Diagnosis: The primary encounter diagnosis was Low back pain with right-sided sciatica. A diagnosisof Chronic left shoulder pain was also pertinent to this visit. AMB PT SUBJECTIVE EVAL: History of Present Illness: Mechanism of injury: Pt reports long history of low back and L shoulder pain. Pt states she had a cortisone injection in her L shoulder on 02/04 21 and states it seems less painful. Pt reports she washospitalized overnight 3 weeks ago due to R sciatica and was given a steroid dose pack and pain meds. She was unable to bear weight on her R LE at that time, but is better with the medication. Pt hasa history of multiple joint and spin OA and COPD. Pain: Current pain ratin/10 At worst pain ratin/10 Location: Low back radiating down posterolateral R LE Quality: Dull ache (numbness) Relieving factors: Medications Exacerbated by: lifting, carrying, ascending stairs, standing, wearing heels, climbing ladders, bedmobility. Social Support: Lives in: Apartment Patient Goals: Patient/family treatment goals: Getting pain under control. Objective TRUNK ROM Flexion WFL with increased R LE pain Extension 0%% with increased R LE pain Sidebend R 25% with increased pain L 50% Rotation R 50% with increased pain L 50% LEFT SHOULDER ROM Flexion 145 Abduction 150 ER to C7 IR to L4 POSTURE Pt stands with trunk mildly flexed forward and increased lumbar lordosis. PALPATION Moderate tenderness and increased tissue tension noted in R piriformis and R calf FLEXIBILITY HIP FLEXOR L 50% R 50% GAIT Pt ambulates without assistive device with decreased arm swing, trunk rotation, ashu and step length. Physical Therapy Certification Form - Spine Treatment Today: Initial Evaluation completed with patient education on evaluation findings and plan of care HEP instruction: R calf stretching, pulleys for shoulder flexion and scaption Outcome tool: Optimal Back Score: 21% limited Therapy Exercise HEP as above Manual: soft tissue mobilization to R gastroc and R piriformis Timed Code Tx Minutes 30 Units 2 Total Tx Time 60 15 Manual Therapy, 15 Therapeutic Exercise, 30 Mod Therapy Diagnosis: Disorder of Muscle Lumbago with Sciatica R Stiffness Patient demonstrated Good understanding of above education and HEP. Rehab Potential Good Assessment: Pt is a 65 year old female presenting with chronic low back pain with sciatica, chronicL shoulder pain, decreased spinal mobility and soft tissue tightness affecting standing, walking, bending, bed mobility,lifting, carrying, and stairs. Pt will benefit from skilled PT to address abovedeficits and increase her ease in ADLs. Therapy Goals: (Goals to be met by D/C) 1. Increase ROM/ flexibility of lumbar spine to WFL to increase tolerance to standing and bending 2. Independent HEP in stretching and mobility exercises 3. Decrease pain to 2/10 at worst with activity 4. Functional Gait pattern/equal weight bearing to enable pt to walk for 15 minutes without resting Assessment Eval Complexity Personal Factor/Co-morbidities: 1-2 (Mod) BMI, Chronicity, Fear of Movement Examination of Body Systems Needing Addressed: 3 or more (Mod) Bed Mobility Deficits, Carrying and Handling Deficits, Household Tasks Deficits, LE Deficits, Muscle Tension, Trunk Deficits Clinical Presentation of Patient: Evolving (Mod) Evolving and changing characteristics - Varying Pain with Activity Clinical Decision Making: Mod Patient to be seen for: flexibilty, home exercise program, instruction in self- help/behavior modification, manual therapy, ROM Next Visit: Review HEP and patient education, begin gentle spinal mobility exercises, add hip flexor stretches. Frequency: 1 times per 8-10 week for 10 visits. Therapist: SHUKRI RODGERS, PT Date: 02/06/21 Time: 4:45 PM Physician Signature: Date: Time: Patient Name: Keegan Amaya : 1955 Cosigned by Tracy Olivares MD at 02/06/2021 5:20 PM CDT documented in this encounter Plan of Treatment Upcoming Encounters Date Type Department Care Team (Late st Contact Info) Description 10/03/2024 11:00 AM WOMEN'S SWIM COACH Office Visit [facility] Pulmonology Specialty Clinic - [address] [address] Nathan Baig MD [address] [place] [address] 11/14/2024 10:20 AM WOMEN'S SWIM COACH Office Visit [facility] Multispecialty Care - [place] [address] [address] [place] [address] Tracy Olivares MD [facility] [address] [address] documented as of this encounter Visit Diagnoses Diagnosis Low back pain with right-sided sciatica- Primary Chronic left shoulder pain Pain in joint, shoulder region documented in this encounter Additional Health Concerns Assessment Noted Time PHQ-9 Depression Total Score: 6 01/06/20 21 12:11 PM CDT documented as of this encounter Care Teams Director Of Athletics Relationship Specialty Start Date End Date Tracy Olivares MD [address] [place] [address] PCP - General INTERNAL MEDICINE 01/02/21 documented as of this encounter
--- OUTSIDE RECORDS SUMMARY | 2024-09-07 05:27 | XMS_ITS | Encounter Summary ---
Author Organization [facility] Address [address] [place] [address]. [place], [place] [address] [place] [address] Care Team Providers Care Hydrological Technical Officer Name Role Phone Tracy Olivares MD Primary Care Provider Reason for Visit * Reason Comments Sleep Study (SCAN) Encounter Details Date Type Department Care Team ([facility] Contact Info) Description 01/31/2020 Scan HEALTH INFO SRVCS Scanned, Documents Sleep Study (SCAN) Social History Tobacco Use Types Packs/Day Years Used Date Smoking Tobacco: Never Assessed PHQ-2 Answer Date Recorded PHQ-2 Score - If the patient scores above 3, please move on to questions 3-9 0 05/22/2021 Comments Unknown Sex and Gender Information Value [...] Upcoming Encounters Date Type Department Care Team ([facility] Contact Info) Description 10/03/2024 11:00 AM EARTH SCIENCE TECHNICAL OFFICER Office Visit [facility] Pulmonology Specialty Clinic - [address] [place] [address] Nathan Baig MD [address] [place] [address] 11/14/2024 10:20 AM EARTH SCIENCE TECHNICAL OFFICER Office Visit [facility] Multispecialty Care - [place] [address] [address] [place] [address] Tracy Olivares MD [address] [address] documented as of this encounter Procedures Procedure Name Priority Date/Time Associated Diagnosis Comments SLEEP STUDY GENERIC (SCAN ORDER) 01/31/2020 SLEEP STUDY GENERIC (SCAN ORDER) 01/31/2020 SLEEP STUDY GENERIC (SCAN ORDER) 01/31/2020 documented in this encounter Results * SLEEP STUDY GENERIC (01/31/2020) 01/31/2020 Narrative 01/31/2020 Ordered by an unspecified provider. us Documents Scanned SCANNING Final Result * SLEEP STUDY GENERIC (01/31/2020) 01/31/2020 Narrative 01/31/2020 Ordered by an unspecified provider. us Documents Scanned SCANNING Final Result * SLEEP STUDY GENERIC (01/31/2020) 01/31/2020 Narrative 01/31/2020 Ordered by an unspecified provider. us Documents Scanned SCANNING Final Result documented in this encounter Visit Diagnoses Not on filedocumented in this encounter Care Teams Hydrological Technical Officer Relationship Specialty Start Date End Date Tracy Olivares MD [address] [address] PCP - General INTERNAL MEDICINE 01/02/21 documented as of this encounter
--- OUTSIDE RECORDS SUMMARY | 2024-09-07 05:27 | XMS_ITS | Encounter Summary ---
Author Organization [facility] Address [address] [place] [address]. [place] [id number] [place] [address] Care Team Providers Care Salesperson Art Objects Name Role Phone Tracy Olivares MD Primary Care Provider [phone] Reason for Visit * Reason Onset Date Comments Medication Request 01/09/2021 Encounter Details Date Type Department Care Team (Late st Contact Info) Description 01/09/2021 Telephone [facility] Multispecialty Care - [place] [address] [address] [place], [place] [id number] Tracy Olivares MD [address] [place] [address] [address] [place] [address] Medication Request Social History Tobacco [...] Progress Notes * Tracy Olivares MD - 01/09/2021 9:10 AM CDT Patient calls needing something for pain. Will send off Tizanidine and percocet to her pharmacy. Tracy Olivares MD Internal Medicine [facility]. documented in this encounter Plan of Treatment Upcoming Encounters Date Type Department Care Team (Late st Contact Info) Description 10/03/2024 11:00 AM VICE PRESIDENT QUALITY IMPROVEMENT Office Visit [facility] Pulmonology Specialty Clinic - [address] [address] Nathan Baig MD [address] [place] [address] 11/14/2024 10:20 AM VICE PRESIDENT QUALITY IMPROVEMENT Office Visit [facility] Multispecialty Care - [place] [address] [address] [place] [address] Tracy Olivares MD [address] [address] documented as of this encounter Visit Diagnoses Diagnosis Low back pain due to bilateral sciatica- Primary documented in this encounter Additional Health Concerns Assessment Noted Time PHQ-9 Depression Total Score: 6 01/06/20 21 12:11 PM CDT documented as of this encounter Care Teams Salesperson Art Objects Relationship Specialty Start Date End Date Tracy Olivares MD [address] [place] [address] PCP - General INTERNAL MEDICINE 01/02/21 documented as of this encounter
--- OUTSIDE RECORDS SUMMARY | 2024-09-07 05:27 | XMS_ITS | Encounter Summary ---
Author Organization [facility] Address [address] [place] [address]. [place], [place] [address] [place] [address] Care Team Providers Care All Purpose Clerk Name Role Phone Unavailable Primary Care Provider Unavailabl e Encounter Details Date Type Department Care Team (Latest Contact Info) Description 07/28/2012 Abstract [facility] Social History Tobacco Use Types [...] Contact Info) Description 10/03/2024 11:00 AM SUPERVISOR DEHYDROGENATION Office Visit [facility] Pulmonology Specialty Clinic - [address] [address] Nathan Baig MD [address] [place] [address] 11/14/2024 10:20 AM SUPERVISOR DEHYDROGENATION Office Visit [facility] Multispecialty Care - [place] [address] [address] [place] [address] Tracy Olivares MD [address] [place] [address] documented as of this encounter Visit Diagnoses Not on filedocumented in this encounter
--- OUTSIDE RECORDS SUMMARY | 2024-09-07 05:27 | XMS_ITS | Encounter Summary ---
Author Organization [facility] Address [address] [place] [address]. [place], [place] [address] [place] [address] Care Team Providers Care Quality Engineer Medical Device Name Role Phone Unavailable Primary Care Provider Unavailabl e Encounter Details Date Type Department Care Team (Late st Contact Info) Description 03/13/1999 Abstract [facility] CONVERSION [address] [place] [address] , Generic MD Clarence Social History Tobacco [...] st Contact Info) Description 10/03/2024 11:00 AM DRY CANS OPERATOR Office Visit [facility] Pulmonology Specialty Clinic - [address] [address] Nathan Baig MD [address] [place] [address] 11/14/2024 10:20 AM DRY CANS OPERATOR Office Visit [facility] Multispecialty Care - [place] [address] [address] [place] [address] Tracy Olivares MD [address] [place] [address] documented as of this encounter Visit Diagnoses Not on filedocumented in this encounter
--- OUTSIDE RECORDS SUMMARY | 2024-09-07 05:27 | XMS_ITS | Encounter Summary ---
Author Organization [facility] Address [address] [place] [address]. [place], [place] [address] [place] [address] Care Team Providers Care Claims Examiner Name Role Phone Unavailable Primary Care Provider Unavailabl e Encounter Details Date Type Department Care Team (Latest Contact Info) Description 11/03/2012 Abstract [facility] Social History Tobacco [...] st Contact Info) Description 10/03/2024 11:00 AM PHARMACY BENEFITS COORDINATOR Office Visit [facility] Pulmonology Specialty Clinic - [address] [address] Nathan Baig MD [address] [place] [address] 11/14/2024 10:20 AM PHARMACY BENEFITS COORDINATOR Office Visit [facility] Multispecialty Care - [place] [address] [address] [place] [address] Tracy Olivares MD [address] [place] [address] documented as of this encounter Visit Diagnoses Not on filedocumented in this encounter
--- OUTSIDE RECORDS SUMMARY | 2024-09-07 05:27 | XMS_ITS | Encounter Summary ---
Author Organization [facility] Address [address] [place] [address]. [place], [place] [address] [place] [address] Care Team Providers Care Pricer Name Role Phone Unavailable Primary Care Provider Unavailabl e Encounter Details Date Type Department Care Team (Late st Contact Info) Description 03/20/1999 Abstract [facility] CONVERSION [address] [place] [address] , Generic MD Clarence Social History Tobacco [...] st Contact Info) Description 10/03/2024 11:00 AM FABRIC AND ACCESSORIES ESTIMATOR Office Visit [facility] Pulmonology Specialty Clinic - [address] [address] Nathan Baig MD [address] [place] [address] 11/14/2024 10:20 AM FABRIC AND ACCESSORIES ESTIMATOR Office Visit [facility] Multispecialty Care - [place] [address] [address] [place] [address] Tracy Olivares MD [address] [place] [address] documented as of this encounter Visit Diagnoses Not on filedocumented in this encounter
--- OUTSIDE RECORDS SUMMARY | 2024-09-07 05:27 | XMS_ITS | Encounter Summary ---
Author Organization [facility] Address [address] [place] [address] [address] Care Team Providers Care Knife Setter Assembler Name Role Phone Unavailable Primary Care Provider Unavailabl e Encounter Details Date Type Department Care Team (Latest Contact Info) Description 10/25/2012 Abstract [facility] Social History Tobacco Use Types Packs/Day Years Used Date Smoking Tobacco: Never Assessed Comments Unknown Sex and Gender Information Value Date Recorded Sex Assigned at Not on file Legal Sex Female 8:25 PM CDT Gender Identity Not on file Sexual Orientation Not on file documented as of this encounter Progress Notes * Elizabeth Lima Md, MD - 10/25/2012 4:22 PM CST Message Keegan call the office. She is having a lot of pain in her right side of her lower back above the buttock that radiates into the buttock and down her right leg anteriorly . She went to the ED and got a script for Vicodin and she took the last pill today which really helped with the pain. She is taking Motrin and wanted another NSAID that is stronger. Will let [facility] know. Spoke to [facility], script sent via e-script for Mobic to [facility] in [place]. Called and spoke with Keegan and informed her ot the script. She has an f/u appt next week with [facility]. Signatures Electronically signed by : Bety Allen, ; Oct 25 2012 4:28PM (Author) Electronically signed by : Bety Allen, ; Oct 25 2012 4:46PM (Author) GE GOODS EXAMINER documented in this encounter Plan of Treatment Upcoming Encounters Date Type Department Care Team (Late st Contact Info) Description 10/03/2024 11:00 AM GREIGE GOODS EXAMINER Office Visit [facility] Pulmonology Specialty Clinic - [address] [place] [address] Nathan Baig MD [address] [address] 11/14/2024 10:20 AM GREIGE GOODS EXAMINER Office Visit [facility] Multispecialty Care - [place] [address] [address] [place] [address] Tracy Olivares MD 1188 [facility] 157 [place] [address] documented as of this encounter Visit Diagnoses Not on filedocumented in this encounter
--- OUTSIDE RECORDS SUMMARY | 2024-09-07 05:27 | XMS_ITS | Encounter Summary ---
Author Organization [facility] Address [address] [place] [address]. [place] [id number] [place] [address] Care Team Providers Care Hi Teacher Name Role Phone Tracy Olivares MD Primary Care Provider [phone] Reason for Visit * Reason Onset Date Comments No Show 02/13/2021 Encounter Details Date Type Department Care Team ([facility] Contact Info) Description 02/13/2021 Telephone [facility] Physical Therapy [address] [place] [address] Darlene Rodgers, PT No Show Social History [...] (Late Contact Info) Description 10/03/2024 11:00 AM MD DO RESIDENT URGENT CARE Office Visit [facility] Pulmonology Specialty Clinic - [address] [address] Nathan Baig MD [address] [place] [address] 11/14/2024 10:20 AM MD DO RESIDENT URGENT CARE Office Visit [facility] Multispecialty Care - [place] [address] [address] [place] [address] Tracy Olivares MD [address] [address] documented as of this encounter Visit Diagnoses Not on filedocumented in this encounter Additional Health Concerns Assessment Noted Time PHQ-9 Depression Total Score: 6 01/06/20 21 12:11 PM CDT documented as of this encounter Care Teams Hi Teacher Relationship Specialty Start Date End Date Tracy Olivares MD [address] [place] [address] PCP - General INTERNAL MEDICINE 01/02/21 documented as of this encounter
--- OUTSIDE RECORDS SUMMARY | 2024-09-07 05:27 | XMS_ITS | Encounter Summary ---
Author Organization [facility] Address [address] [place] [address]. [place] [address] [place] [address] Care Team Providers Care Director Advanced Name Role Phone Unavailable Primary Care Provider Unavailabl e Encounter Details Date Type Department Care Team (Late st Contact Info) Description 03/19/2013 Abstract [facility] Multispecialty Care - [facility] [address] [facility], [address] [place] [phone] Ramiro Guzmán MD Social History Tobacco Use [...] Sign Reading Time Taken Comments Blood Pressure 131/66 03/19/2013 10:29 AM CDT Pulse 85 03/19/2013 10:29 AM CDT Temperature - - Respiratory Rate - - Oxygen Saturation - - Inhaled Oxygen Concentration - - Weight 131.1 kg (289 lb) 03/19/2013 10:29 AM CDT Height 170.2 cm (5' 7 ) 03/19/2013 10:29 AM CDT Body Mass Index 45.26 03/19/2013 10:29 AM CDT documented in this encounter Progress Notes * Ramiro Guzmán MD - 03/19/2013 10:30 AM CDT Chief Complaint HERE TODAY WITH MRI , LUMBAR FOR REVIEW. SHE HAD HYST, ABOUT 8 WEEKS AGO, NORMALLY SHE HAS RT LEG PAIN, BUT TODAY SHE IS NOT HURTING. MOST DAYS SHE HAS LOW BACK PAIN AND RT LEG. PCP: CORNEL VALVERDE History of Present Illness Patient is being treated for chronic lumbar spinal pain and right leg pain. MRI of the lumbar spine from March 03, 2012 was reviewed. L4-5 moderate central stenosis. L5-S1 moderate central disc herniation associated with moderate central stenosis and right moderately severe foraminal stenosis. I recommended a right L4-5 and L5-S1 epidural steroid injection. This will serve both therapeutic and diagnostic purposes. I'll see the patient in followup in 4- 6 weeks' time. Total time of visit 15 minutes. Greater than 50% of total face to face time spent counseling and coordination of care. Active Problems 1. Lower Back Pain 724.2 [...] Activated; INHALE 1 PUFF TWICE DAILY; Therapy: (Recorded:[id number]) to 2. Aspirin 81 MG Oral Tablet; Therapy: (Recorded:24Jul2012) to 3. Ibuprofen 800 MG Oral Tablet; TAKE 1 TABLET BY MOUTH EVERY 6 HOURS; Therapy: 24Feb2012 to 4. Losartan Potassium-HCTZ 100-12.5 MG Oral Tablet; TAKE 1 TABLET BY MOUTH EVERY DAY; Therapy: [id number] to Allergies 1. Aspirin TABS 2. Darvon CAPS Vitals [id number] 10:29AM Heart Rate 85 Systolic 131 Diastolic 66 BMI Calculated 45.36 BSA Calculated 2.36 Height 5 ft 7 in Weight 289 lb Assessment 1. Lower Back Pain 724.2 2. Limb Pain 729.5 3. Herniated Lumbar Disc 722.10 Signatures Electronically signed by : Ramiro Guzmán M.D.; Mar 19 2013 11:09AM (Author) PAINTER documented in this encounter Plan of Treatment Upcoming Encounters Date Type Department Care Team (Late st Contact Info) Description 10/03/2024 11:00 AM AUTO PAINTER Office Visit [facility] Pulmonology Specialty Clinic - [address] [address] Nathan Baig MD [address] [place] [address] 11/14/2024 10:20 AM AUTO PAINTER Office Visit [facility] Multispecialty Care - [place] [address] [address] [place] [address] [place] [address] [place] [address] documented as of this encounter Visit Diagnoses Not on filedocumented in this encounter
--- OUTSIDE RECORDS SUMMARY | 2024-09-07 05:27 | XMS_ITS | Encounter Summary ---
Author Organization [facility] Address [address] [place] [address]. [place], [place] [address] [place] [address] Care Team Providers Care Post Partum Nurse Name Role Phone Unavailable Primary Care Provider Unavailabl e Encounter Details Date Type Department Care Team (Latest Contact Info) Description 03/03/2012 Abstract [facility] Social History Tobacco Use Types [...] st Contact Info) Description 10/03/2024 11:00 AM OPHTHALMIC NURSE Office Visit [facility] Medical [facility] Pulmonology Specialty Clinic - [address] [address] Nathan Baig MD [address] [place] [address] 11/14/2024 10:20 AM OPHTHALMIC NURSE Office Visit [facility] Medical Group Multispecialty Care - [place] [address] [address] [place] [address] Tracy Olivares MD [address] [place] [address] documented as of this encounter Visit Diagnoses Not on filedocumented in this encounter
--- OUTSIDE RECORDS SUMMARY | 2024-09-07 05:27 | XMS_ITS | Encounter Summary ---
Author Organization [facility] Address [address] [place] [address]. [address] [address] Care Team Providers Care Maintainer Plant Name Role Phone Tracy Olivares MD Primary Care Provider [phone] Reason for Visit * Reason Comments Lumbar Radiculopathy * Physical Medicine (Routine) - Closed Specialty Diagnoses / Procedures Referred By Contac t Referred To Contact PHYSICAL THERAPY / [facility] Physical Therapy Diagnoses Low back pain due to bilateral sciatica [place] [address] [place] [address] Phone: tel: fax: [facility] Physical Therapy [address] [address] Phone: tel: fax: Referral ID Status Reason Start Date Expiration Date V isits Requested Visits Authorized [id number] Closed Physical Therapy 01/20/2021 02/19/2022 10 10 Encounter Details Date Type Department Care Team (Latest Contact Info) Description 02/16/2021 10:15 AM CDT Office Visit [facility] Physical Therapy [address] [address] Tracy Olivares MD [address] [address] Darlene Rodgers PT Lumbar Radiculopathy Social History Tobacco Use Types Packs/Day Years [...] have Coronavirus / COVID-19? No / Unsure 02/16/2021 10:04 AM CDT documented as of this encounter Progress Notes * Darlene Rodgers, PT - 02/16/2021 10:15 AM CDT Physical Therapy Visit Note: Patient Name: Keegan Amaya Diagnosis: Low back pain with right-sided sciatica [M54.41] Personal Protective Equipment PPE Used During Visit: Therapist wore medical grade mask throughout session, Patient wore mask throughout session SUBJECTIVE Therapy Visit Treatment Day: 2 Total Approved Visits: 10 Authorization Expiration Date: 03/09/21 (Medicare) Therapy Plan of Care: stretching and spinal mobility, L shoulder ROM Current Therapy Orders: eval and treat Diagnosis: LBP with B sciatica, chronic L shoulder pain Referring Provider: Elise Subjective Note: Pt reports she is feeling pretty good today with no pain at present. She wore heels to and did have LBP and R LE pain. Compliance to Home Program: Inconsistent Reported Falls since last visit: None Medications changes since last visit : No changes Pain Current Location of Pain: low back, R LE and L shoulder Current Pain Level: 0/10 OBJECTIVE Treatment provided today: Objective Objective Measurement: AROM L shoulder WFL and painfree Therapeutic Exercise - 40639 Number of Minutes - 64015: 15 Exercise: R piriformis stretch in supine x 3 with 20 sec hold Exercise: R calf stretch in standing x 3 with 20 sec hold Exercise: L shoulder AROM all planes Exercise: R hip flexor stretch in standing x 3 with 20 sec hold Exercise: LTR in painfree range x 10 Manual Therapy - 84715 Number of Minutes - 36315: 25 Intervention: soft tissue mobilization to R calf, hamstrings, piriformis, QL and lumbar paraspinals Education Was Education Provided: Yes Topic: why wearing heels increases low back pain Recipient: Patient Method: Verbal Response: Verbalized understanding ASSESSMENT Assessment Note: Marked improvement in L shoulder pain and ROM since initial eval. Pt had low back and R LE pain after wearing heels to uatsdin yesterday, but otherwise has not had pain since initial PT eval. Initiated gentle spinal mobility exercises and stretching today. PLAN Plan Next Visit Plan: Progress spinal mobility as tolerated. Total Time Total Time in Minutes: 40 Timed Code Treatment Minutes : 40 documented in this encounter Plan of Treatment Upcoming Encounters Date Type Department Care Team (Late st Contact Info) Description 10/03/2024 11:00 AM JEWELRY SALES REPRESENTATIVE Office Visit [facility] - [address] [address] Nathan Baig MD [address] [place] [address] 11/14/2024 10:20 AM JEWELRY SALES REPRESENTATIVE Office Visit [facility] - [place] [address] [address] [place] [address] Tracy Olivares MD [facility] [address] [address] documented as of this encounter Visit Diagnoses Diagnosis Low back pain with right-sided sciatica- Primary Chronic left shoulder pain Pain in joint, shoulder region documented in this encounter Additional Health Concerns Assessment Noted Time PHQ-9 Depression Total Score: 6 01/06/20 21 12:11 PM CDT documented as of this encounter Care Teams Maintainer Plant Relationship Specialty Start Date End Date Tracy Olivares MD [address] [place] [address] PCP - General INTERNAL MEDICINE 01/02/21 documented as of this encounter
--- OUTSIDE RECORDS SUMMARY | 2024-09-07 05:27 | XMS_ITS | Encounter Summary ---
Author Organization [facility] Address [address] [place] [address]. [place] [id number] [place] [address] Care Team Providers Care Lease Attendant Name Role Phone Tracy Olivares MD Primary Care Provider [phone] Reason for Visit * Reason Comments Follow Up 6 week f/u for michelle larsen. has noticed restless of her legs during sleep. Needs vaccines. Encounter Details Date Type Department Care Team (Latest Contact Info) Description 03/03/2021 10:00 AM CDT Office Visit [facility] Medical [facility] Multispecialty Care - [place] [address] [address] [place] [address] Tracy Olivares MD [address] [place] [address] [address] [place], [place] [id number] Follow Up (6 week f/u for depression. has noticed restless of her legs during sleep. Needs vaccines.) Social History Tobacco Use Types Packs/Day Years [...] Sign Reading Time Taken Comments Blood Pressure 143/82 03/03/2021 10:01 AM CDT Pulse 70 03/03/2021 10:01 AM CDT Temperature 36.7 ??C (98 ??F) 03/03/2021 10:01 AM CDT Respiratory Rate 18 03/03/2021 10:01 AM CDT Oxygen Saturation 98% 03/03/2021 10:01 AM CDT Inhaled Oxygen Concentration - - Weight 132 kg (291 lb) 03/03/2021 10:01 AM CDT Height 161.3 cm (5' 3.5 ) 03/03/2021 10:01 AM CD T Body Mass Index 50.74 03/03/2021 10:01 AM CDT documented in this encounter Patient Instructions * Patient Instructions* Tracy Olivares MD - 03/03/2021 10:00 AM CDT Images from the original note were not included. Follow up with your pulmonary appointment May 22 at 90:20 am here in [place]. Continue with all medications as discussed. Get your Tdap done in a pharmacy in about one month in April 2021. Patient Education Patient Education Depression The Basics Written by the doctors and editors at [facility] What is depression???--??Depression is a disorder that makes you sad, but it is different than normal sadness (figure 1). Depression can make it hard for you to work, study, or do everyday tasks. How do I know if I am depressed???--??Depressed people feel down most of the time for at least 2 weeks. They also have at least 1 of these 2 symptoms: ?? They no longer enjoy or care about doing the things they used to like to do. ?? They feel sad, down, hopeless, or cranky most of the day, almost every day. Depression can also make you: ?? Lose or gain weight ?? Sleep too much or too little ?? Feel tired or like you have no energy ?? Feel guilty or like you are worth nothing ?? Forget things or feel confused ?? Move and speak more slowly than usual ?? Act restless or have trouble staying still ?? Think about or suicide If you think you might be depressed, see your doctor or nurse. Only someone trained in mental health can tell for sure if you are depressed. See someone right away if you want to hurt or kill yourself!??--??If you ever feel like you might hurt yourself or someone else, do one of these things: ?? Call your doctor or nurse and tell them it is urgent ?? Call for an ambulance (in the [place] and [place], dial ) ?? Go to the emergency room at your local hospital ?? Call the National Suicide Prevention Lifeline: ? ? www.suicidepreventionlifeline.org What are the treatments for depression???--??People who have depression can get 1 or more of the following treatments: ?? Medicines that relieve depression ?? Counseling (with a psychiatrist, psychologist, nurse, or social worker assistant) ?? A device that passes magnetic waves or electricity into the brain People with depression that is not too severe can get better by taking medicines or talking with a counselor. People with severe depression usually need medicines to get better, and might also need to see a counselor. Another treatment involves placing a device against the scalp to pass magnetic waves into the brain. This is called transcranial magnetic stimulation or TMS. Doctors might suggest TMS if medicines and counseling have not helped. Some people whose depression is severe might need a treatment called electroconvulsive therapy or ECT. During ECT, doctors pass an electric current through a person's brain in a safe way. When will I feel better???--??Both treatment options take a little while to start working. ?? Many people who take medicines start to feel better within 2 weeks, but it might be 4 to 8 weeksbefore the medicine has its full effect. ?? Many people who see a counselor start to feel better within a few weeks, but it might take 8 to 10 weeks to get the greatest benefit. If the first treatment you try does not help you, tell your doctor or nurse, but do not give up. Some people need to try different treatments or combinations of treatments before they find an approach that works. Your doctor, nurse, or counselor can work with you to find the treatment that is rightfor you. He or she can also help you figure out how to cope while you search for the right treatment or are waiting for your treatment to start working. How do I decide which treatment to have???--??You and your doctor or nurse will need to work together to choose a treatment for you. Medicines might work a little faster than counseling. But medicines can also cause side effects. Plus, some people do not like the idea of taking medicine. On the other hand, seeing a counselor involves talking about your feelings with a stranger. That ishard for some people. Is depression the same for teenagers???--??No. The symptoms of depression are a little different for teenagers than they are for adults. Some teenagers are bonilla or sad a lot of the time. That makes it hard to tell when they are really depressed. Teenagers who are depressed often seem cranky. They get easily annoyed or bothered. They might even pick fights with people. Also, when treating a teenager, doctors and nurses usually suggest trying counseling first, before trying medicine. That's because there is a small chance that depression medicines can cause problems for some teenagers. Even so, some depressed teenagers need medicine. And most experts agree that depression medicine is safe and appropriate to use in teenagers who really need it. What if I take medicine for depression and I want to have a baby???--??Some depression medicines can cause problems for an unborn baby. But having untreated depression during can also causeproblems. If you want to get , tell your doctor but do not stop taking your medicines. The two of you can plan the safest way for you to have your baby. It's also important to talk with your doctor if you want to breastfeed after your baby is born. has lots of benefits for both mother and baby. Some depression medicines are safer than others to use while . But having untreated depression after giving can also cause problems, so do not stop taking your medicines. Your doctor can work with you to plan the safest wayfor you to feed your baby. All topics are updated as new evidence becomes available and our peer review process is complete. This topic retrieved from [employer] on: Nov 11, 2020. Topic 89605 Version 14.0 Release: 29.1.3 - C29.60 ?2020??[employer] and/or its affiliates.??All rights reserved. figure 1: Mood disorders caused by problems in the brain Mood disorders, such as depression and bipolar disorder, are caused by chemical imbalances in the brain. Treatments for these conditions work by changing the chemistry of the brain. Graphic 10125 Version 3.0 Consumer Information Use and Disclaimer This information [...] to provide advice that is right for you.The use of [employer] content is governed by the [employer] Terms of Use. ??2020 [employer]. All rights reserved. Copyright ?2020??[employer] and/or its affiliates.??All rights reserved. documented in this encounter Progress Notes * Parul Arora MA - 03/03/2021 10:00 AM CDTAddended by: PARUL ARORA on: 03/03/2021 11:09 AM Modules accepted: Orders * Tracy Olivares MD - 03/03/2021 10:00 AM CDTSummary: follow up visit notes Images from the original note were not included. Internal Medicine Outpatient Progress Note CC: Follow Up (6 week f/u for depression. has noticed restless of her legs during sleep. Needs vaccines.) HPI: Keegan Amaya is a 65-year-old female who presents for follow- up for depression, concerns for restless leg that started recently, vaccinations and refill of medications. According to patient, depression doing better since starting Lexapro. Denies any suicidal ideationsor intentions to harm. Tolerating medications but has noticed recent restlessness of legs when sleeping. She used to have this issue but it was mild. Currently more noticeable but nonimpairing. Wouldlike to find out if there is some treatment that could be given. Denies any tremors of the extremiti es such as the hands. Denies any change in gait. Denies any issues with mentation or memory. Has a number of stressful life (financial) events going on but is able to better handle situation since starting Lexapro. Patient is agreeable to getting pneumonia 23 vaccine done today. She would like a refill on her albuterol inhaler. Allergies stable. Problem List Patient Active Problem List Diagnosis ??? Current moderate episode of major depressive disorder (CMS/HCC) ??? Essential hypertension ??? Gastroesophageal reflux disease ??? Hearing loss ??? Impaired glucose tolerance in obese ??? Shoulder pain ??? Chronic low back pain with bilateral sciatica ??? Obesity ??? Lumbar herniated disc ??? FAISAL on CPAP ??? Glaucoma ??? Cataract ??? Anxiety Past Medical History: Diagnosis Date ??? Anxiety [...] Outpatient Medications Marked as Taking for the 03/03/21 encounter (Office Visit) with Tracy Olivares MD [...] Negative. Gastrointestinal: Negative. Genitourinary: Negative. Musculoskeletal: Negative. Positive for restlessness of lower extremities Skin: Negative. Objective: Filed Vitals: 03/03/21 1001 BP: 143/82 Pulse: 70 Resp: 18 Temp: 98 ??F (36.7 ??C) SpO2: 98% Weight: 132 kg (291 lb) Height: 5' 3.5 (1.613 m) Body mass index is 50.74 kg/m??. General alert, cooperative, no distress HEENT [...] Encounter Diagnose(s) ICD-10-CM ICD-9-CM SNOMED CT(R) 1. Moderate episode of recurrent major depressive disorder (CMS/HCC) F33.1 296.32 RECURRENT MAJOR DEPRESSIVE EPISODES, MODERATE 2. Restless leg G25.81 333.94 RESTLESS LEGS rOPINIRole 0.5 MG tablet 3. Vitamin D deficiency E55.9 268.9 VITAMIN D DEFICIENCY Vitamin D, Cholecalciferol, 50 MCG (1999 UT) Cap 4. Seasonal allergic rhinitis due to pollen J30.1 477.0 ALLERGIC RHINITIS DUE TO POLLEN albuterol sulfate HFA 108 (90 Base) MCG/ACT inhaler 5. Need for prophylactic vaccination against Streptococcus pneumoniae (pneumococcus) Z23 V03.82 REQUIRES VACCINATION [50262] Pneumovax 23 (Pneumococcal) 6. Encounter for hepatitis C screening test for low risk patient Z11.59 V73.89 PATIENT ENCOUNTER STATUS HEPATITIS C ANTIBODY 1. Moderate episode of recurrent major depressive disorder (CMS/HCC) -Improved and patient stable. No suicidal ideations or intentions to harm. -No changes will be made to current dose. -Continue with Lexapro 10 mg daily -We will continue to monitor during subsequent visits. AVS with instructions on depression. 2. Restless leg -This is new. Noted obstructive sleep apnea on CPAP. Referral placed to pulmonary and patient has upcoming appointment 05/22/2021- had a sleep study done in the past. -Start rOPINIRole 0.5 MG tablet; Take 0.5 tablets (0.25 mg total) by mouth nightly at bedtime. Dispense: 30 tablet; Refill: 1 - patient will increase to 0.5 mg if needed to help with symptom control over the next 1 week 3. Vitamin D deficiency -Continue with Vitamin D, Cholecalciferol, 50 MCG (2000 UT) Cap; Take 1,000 Units by mouth daily. Dispense: 30 capsule 4. Seasonal allergic rhinitis due to pollen -Continue with albuterol sulfate HFA 108 (90 Base) MCG/ACT inhaler; Inhale 2 puffs into the lungs every 4 (four) hours as needed. Dispense: 18 g; Refill: 5 5. Need for prophylactic vaccination against Streptococcus pneumoniae (pneumococcus) - [33339] Pneumovax 23 (Pneumococcal) 6. Encounter for hepatitis C screening test for low risk patient - HEPATITIS C ANTIBODY; Future Counseling given: Yes Comment: by Dr Olivares [...] was at least in part performed using [employer] speak and there may be some inherent flaws in this molder feeder due to the nature of this program. Tracy Olivares MD Internal Medicine [facility], [facility]. documented in this encounter Plan of Treatment Upcoming Encounters Date Type Department Care Team (Late st Contact Info) Description 10/03/2024 11:00 AM DRY WALL INSTALLATIONS MECHANIC Office Visit [facility] Medical [facility] - [place] [address] [facility] [address] [place] [address] Nathan Baig MD [address] [address] 11/14/2024 10:20 AM DRY WALL INSTALLATIONS MECHANIC Office Visit [facility] Medical [facility] Multispecialty Care - [place] [address] [facility] [address] [place] [address] Tracy Olivares MD [address] [facility] [address] [place] [address] documented as of this encounter Procedures Procedure Name Priority Date/Time Associated Diagnosis Comments HEPATITIS C ANTIBODY Routine 03/03/2021 11:09 AM CDT Encounter for hepatitis C screening test for low risk patient documented in this encounter Results * HEPATITIS C ANTIBODY (03/03/2021 11:09 AM CDT) HEPATITIS C AB NON-REACTI VE NON-REACT PATRIA 03/04/2021 6:57 PM CDT [facility] Comment: ANTIBODIES TO HCV NOT DETECTED. DOES NOT EXCLUDE THE POSSIBILITY OF EXPOSURE TO HCV. 03/03/2021 11:0 9 AM CDT Tracy Olivares MD LABORATORY Final Result [facility] [address] [place] [address], [id number] documented in this encounter Visit Diagnoses Diagnosis Moderate episode of recurrent major depressive disorder (CMS/HCC HHS/HCC)- Primary Restless leg Restless legs syndrome (RLS) Vitamin D deficiency Unspecified vitamin D deficiency Seasonal allergic rhinitis due to pollen Need for prophylactic vaccination against Streptococcus pneumoniae (pneumococcus) Need for prophylactic vaccination against streptococcus pneumoniae (pneumococcus) Encounter for hepatitis C screening test for low risk patient documented in this encounter Additional Health Concerns Assessment Noted Time PHQ-9 Depression Total Score: 2 03/03/20 21 11:26 AM CDT documented as of this encounter Care Teams Lease Attendant Relationship Specialty Start Date End Date Tracy Olivares MD [address] [address] PCP - General INTERNAL MEDICINE 01/02/21 documented as of this encounter
--- OUTSIDE RECORDS SUMMARY | 2024-09-07 05:27 | XMS_ITS | Encounter Summary ---
Author Organization [facility] Address [address] [place] [address]. 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 Name Role Phone Tracy Olivares MD Primary Care Provider [phone] Reason for Referral * Imaging (Routine) - Closed Specialty Diagnoses / Procedures Referred By Contac t Referred To Contact RADIOLOGY Diagnoses Menopause Procedures BONE DENSITY/DEXA BONE DENSITY/DEXA Tracy Olivares MD [address] [address] Phone: tel: fax: [facility] [address] Phone: tel: fax: Referral ID Status Reason Start Date Expiration Date Visits Re quested Visits Authorized [id number] Closed 01/05/2021 02/04/2022 1 1 * Consultation (Routine) - Closed Specialty Diagnoses / Procedures Referred By Contact Referred To Contact SLEEP & RESPIRATORY CARE Diagnoses FAISAL on CPAP Tracy Olivares MD [address] [address] Phone: tel: fax: [facility] - [address] [address] Phone: tel: fax: Referral ID Status Reason Start Date Expiration Date Visits Re quested Visits Authorized [id number] Closed 05/16/2021 11/12/2021 6 6 Reason for Visit * Reason Comments New Patient estalbish care Encounter Details Date Type Department Care Team (Latest Contact Info) Description 01/05/2021 10:40 AM CDT Office Visit [facility] Multispecialty [facility] - [address] [place] [address] Tracy Olivares MD [address] [facility] [address] [place], [place] [id number] New Patient (estalbish care) Social History Tobacco Use Types Packs/Day Years [...] Sign Reading Time Taken Comments Blood Pressure 138/82 01/05/2021 11:02 AM CDT Pulse 75 01/05/2021 11:02 AM CDT Temperature 36.5 ??C (97.7 ??F) 01/05/2021 11:02 AM C DT Respiratory Rate 20 01/05/2021 11:02 AM CDT Oxygen Saturation 98% 01/05/2021 11:02 AM CDT Inhaled Oxygen Concentration - - Weight 131.5 kg (290 lb) 01/05/2021 11:02 AM CDT Height 161.3 cm (5' 3.5 ) 01/05/2021 11:02 AM CD T Body Mass Index 50.57 01/05/2021 11:02 AM CDT documented in this encounter Patient Instructions * Patient Instructions* Tracy Olivares MD - 01/05/2021 10:40 AM CDT Images from the original note were not included. Follow up in 1 month. Thank you for coming today to meet with your Physician ( Tracy Olivares MD). It was a pleasure helpingto take care of your medical needs! Welcome to the [facility] in [place]! Please get your blood work done as discussed if applicable. You will received a call once your results come in if applicable. Please follow up with any other health appointments you may have with other health specialists if applicable. As always, if you have any questions please feel free to use [employer] or call our front desk supervisor at [phone]. Our Fax number is [phone]. Please look out for an email from [facility] to participate in a survey. I would appreciate it if you participated as it would help promote our clinic and healthcare system in the community. Please do not forget to set up your next appointment before leaving today! Patient Education Patient Education Back Extension Exercises About this topic Back extension exercises focus on making your back muscles stronger and more flexible. Back extension exercises focus on the long muscles along your spine and other muscles in your back. Back extension exercises can help with problems such as some kinds of bulging discs and back pain. For some backproblems, like spinal stenosis, these exercises may make some people worse. General Before starting with a program, ask your doctor if you are healthy enough to do these exercises. Your doctor may have you work with a wellness trainer or physical therapist to make a safe [...] Do not bounce when doing stretches. ?? Back bends standing ? Stand with feet slightly apart. Put your hands on your hips. Lean back andlook towards the ceiling until you feel a stretch. For a disc problem, you can do this exercise without holding it for 10 times in a row. ?? Elbow props on stomach ? Lie on your stomach, resting on your lower arms. Rise up on your elbowsas high as you are able. Keep your hips on the floor. Then, lower your back and shoulders down. Strengthening Exercises Strengthening exercises keep your muscles firm and strong. Start by repeating each exercise 2 to 3 times. Work up to doing each exercise 10 times. Try to do the exercises 2 to 3 times each day. Hold each exercise for 3 to 5 seconds. Do all exercises slowly. ?? Prone press-ups ? Lie on your stomach with your arms bent and your hands near your shoulders. Raise your upper body by straightening your arms. Keep your hips on the floor. Then, lower back to theground. ?? Leg lifts on stomach ? Lie on your stomach. Keeping the knee straight, lift one leg towards the ceiling. Then, lower back to the ground. Repeat with the other leg. ?? Alternate opposite arm and leg lifts on stomach ? Lie on your stomach. Extend your arms over your head so your elbows are by your ears. Keep your head aligned with your back and lift one arm and the opposite leg at the same time. Then, return to the start position. Repeat with the other arm and leg. You may also try this exercise starting on your hands and knees. ?? Arm and leg lifts on stomach also called Superman exercise ? Lie on your stomach. Extend your arms over your head so your elbows are by your ears. Lift your upper body and legs up off the floor atthe same time and hold 3 to 5 seconds. Lower to the ground. This is a very hard exercise. It may take some time doing the other exercises before you are strong enough to do this one. What will the results be? ?? Better strength and flexibility ?? Less back pain ?? Less back spasms ?? Less leg pain, numbness, and tingling ?? Better posture ?? Easier to walk and do other activities Helpful tips ?? Stay active and work [...] exercise bothers you, stop right away. ?? Try walking or cycling at an easy pace for a few minutes to warm up your muscles. Do this again after exercising. ?? Exercise may be slightly uncomfortable, but you should not have sharp pains. If you do get sharppains, stop what you are doing. If the sharp pains continue, call your doctor. Where can I learn more? [employer] http://orthoinfo.aaos.org/topic.cfm?igvvd=C59727 NHS https://www.nhs.uk/live-well/exercise/qbpqy-fyuy-bhdi-exercises/ Last Reviewed Date 2019-05-23 Consumer Information Use and Disclaimer This information [...] right for you. Copyright Copyright ?? 2020 [employer]. and its affiliates and/or licensors. All rights reserved. Patient Education Patient Education Back Flexion Strengthening Exercises About this topic Back pain is a common problem for adults. Different exercises may help to lessen pain. One kind of exercise that may help is back flexion strengthening exercises. Back flexion means the back is bending forward. Based on the cause of your back pain, these exercises could make some back problems worse. General Before starting with a program, ask your doctor if you are healthy enough to do these exercises. Your doctor may have you work with a wellness trainer or physical therapist to make a safe exercise program to meet your needs. Strengthening Exercises Strengthening exercises keep your muscles firm and strong. Start by repeating each exercise 2 to 3 times. Work up to doing each exercise 10 times. Try to do the exercises 2 to 3 times each day. Hold each exercise for 3 to 5 seconds. Do all exercises slowly. ?? Pelvic tilts ? Lie on your back with your knees bent and feet flat on the floor. Tighten your stomach muscles and press your lower back down to the floor. Relax. ?? Straight leg raises lying down ? Lie on your back and tighten your stomach muscles. Keep lower back down or flat on the floor or bed. Straighten one leg and bend your other knee so the foot is flat on the bed. Keeping your leg straight, lift the leg up to the level of your other knee. Lower it back down. Repeat with the other leg. ?? Knee flex lying down ? Lie on your back and tighten your stomach muscles. Keep lower back down or flat on the floor. Bend both knees and place your feet flat on the floor. Raise one leg up and back down as if you are marching in slow motion. Switch legs. To make this exercise harder, raise both arms straight up in the air. Tighten your belly muscles. When you raise one leg up, reach the opposite arm over your head. Switch, moving the opposite arm and leg until you have done 10 repetitions oneach side. ?? Abdominal crunches ? Lie on your back with both knees bent. Keep your feet flat on the floor. Place your hands in one of these positions. Try starting with the first position since it is the easiest. As you get better, use the other positions to make it harder. ? Crunches with arms at sides. ? Crunches with arms across chest. ? Crunches with arms behind head. Be careful not to interlock your fingers behind your neck or headwhile doing crunches. This may add tension to your neck and cause strain. Look at the ceiling. Tighten your belly muscles and lift your shoulders and upper back off the floor. Breathe out while you are doing this. Lower your shoulders to the floor. Breathe in while you aredoing this. Relax your belly muscles all the way before starting another crunch. ?? Squats ? Stand with your feet spread shoulder width apart. Bend your knees while keeping your back straight. Go as far as you feel comfortable. The deeper you bend, the harder it is. Put your armsstraight out in front for balance as you bend more. To make it harder, hold this position longer. Stand up and repeat. What will the results be? ?? Better strength and flexibility ?? Less back pain ?? Less back [...] exercise bothers you, stop right away. ?? Try walking or cycling at an easy pace for a few minutes to warm up your muscles. Do this again after exercising. ?? Exercise may be slightly uncomfortable, but you should not have sharp pains. If you do get sharppains, stop what you are doing. If the sharp pains continue, call your doctor. Where can I learn more? [employer] http://orthoinfo.aaos.org/topic.cfm?bzsug=K96034 Last Reviewed Date 2019-07-17 Consumer Information Use and Disclaimer This information [...] right for you. Copyright Copyright ?? 2020 [employer]. and its affiliates and/or licensors. All rights reserved. Patient Education Patient Education Controlling Your Blood Pressure Through Lifestyle The Basics Written by the doctors and editors at [employer] What does my lifestyle have to do with my blood pressure???--??The things you do and the foods you eat have a big effect on your blood pressure and your overall health. Following the right lifestyle can: ?? Lower your blood pressure or keep you from getting high blood pressure in the first place ?? Reduce your need for blood pressure medicines ?? Make medicines for high blood pressure work better, if you do take them ?? Lower the chances that you'll have a heart attack or stroke, or develop kidney disease Which lifestyle choices will help lower my blood pressure???--??Here's what you can do: ?? Lose weight (if you are overweight) ?? Choose a diet rich in fruits, vegetables, and low-fat dairy products, and low in meats, sweets, and refined grains ?? Eat less salt (sodium) ?? Do something active for at least 30 minutes a day on most days of the week ?? Limit the amount of alcohol you drink If you have high blood pressure, it's also very important to quit smoking (if you smoke). Quitting smoking might not bring your blood pressure down. But it will lower the chances that you'll have a heart attack or stroke, and it will help you feel better and live longer. Start low and go slow??--??The changes listed above might sound like a lot, but don't worry. You don't have to change everything all at once. The yoo to improving your lifestyle is to start low and go slow. Choose 1 small, specific thing to change and try doing it for a while. If it works for you, keep doing it until it becomes a habit. If it doesn't, don't give up. Choose something else to change and see how that goes. Let's say, for example, that you would like to improve your diet. If you're the type of person who eats cheeseburgers and Pakistani fries all the time, you can't switch to eating just salads from one day to the next. When people try to make changes like that, they often fail. Then they feel frustratedand tend to give up. So instead of trying to change everything about your diet in 1 day, change 1 or 2 small things about your diet and give yourself time to get used to those changes. For instance, keep the cheeseburger but give up the Pakistani fries. Or eat the same things but cut your portions in half. As you find things that you are able to change and stick with, keep adding new changes. In time, you will see that you can actually change a lot. You just have to get used to the changes slowly. Lose weight??--??When people think about losing weight, they sometimes make it more complicated than it really is. To lose weight, you have to either eat less or move more. If you do both of those things, it's even better. But there is no single weight-loss diet or activity that's better than any other. When it comes to weight loss, the most effective plan is the one that you'll stick with. Improve your diet??--??There is no single diet that is right for everyone. But in general, a healthy diet can include: ?? Lots of fruits, vegetables, and whole grains ?? Some beans, peas, lentils, chickpeas, and similar foods ?? Some nuts, such as walnuts, almonds, and peanuts ?? Fat-free or low-fat milk and milk products ?? Some fish To have a healthy diet, it's also important to limit or avoid sugar, sweets, meats, and refined grains. (Refined grains are found in white bread, white rice, most forms of pasta, and most packaged snack foods.) Reduce salt??--??Many people think that eating a low-sodium diet means avoiding the salt shaker andnot adding salt when cooking. The truth is, not adding salt at the table or when you cook will onlyhelp a little. Almost all of the sodium you eat is already in the food you buy at the grocery storeor at restaurants (figure 1). The most important thing you can do to cut down on sodium is to eat less processed food. That meansthat you should avoid most foods that are sold in cans, boxes, jars, and bags. You should also eat in restaurants less often. To reduce the amount of sodium you get, buy fresh or fresh-frozen fruits, vegetables, and meats. (Fresh-frozen foods have had nothing added to them before freezing.) Then you can make meals at home, from scratch, with these ingredients. As with the other changes, don't try to cut out salt all at once. Instead, choose 1 or 2 foods thathave a lot of sodium and try to replace them with low- sodium choices. When you get used to those low-sodium options, find another food or 2 to change. Then keep going, until all the foods you eat aresodium-free or low in sodium. Become more active??--??If you want to be more active, you don't have to go to the gym or get all sweaty. It is possible to increase your activity level while doing everyday things you enjoy. Walking, gardening, and dancing are just a few of the things that you might try. As with all the other changes, the yoo is not to do too much too fast. If you don't do any activity now, start by walking for just a few minutes every other day. Do that for a few weeks. If you stick with it, try doing it for longer. But if you find that you don't like walking, try a different activity. Drink less alcohol??--??If you are a woman, do not have more than 1 standard drink of alcohol a day. If you are a man, do not have more than 2. A standard drink is: ?? A can or bottle that has 12 ounces of beer ?? A glass that has 5 ounces of wine ?? A shot that has 1.5 ounces of whiskey Where should I start???--??If you want to improve your lifestyle, start by making the changes that you think would be easiest for you. If you used to exercise and just got out of the habit, maybe it would be easy for you to start exercising again. Or if you actually like cooking meals from scratch,maybe the first thing you should focus on is eating home-cooked meals that are low in sodium. Whatever you tackle first, choose specific, realistic goals, and give yourself a deadline. For example, do not decide that you are going to exercise more. Instead, decide that you are going to walkfor 10 minutes on Tuesday, Tuesday, and Tuesday, and that you are going to do this for the next 2 weeks. When lifestyle changes are too general, people have a hard time following through. Now go. You can do it! All topics are updated as new evidence becomes available and our peer review process is complete. This topic retrieved from [employer] on: Nov 11, 2020. Topic 21590 Version 7.0 Release: 29.1.3 - C29.60 ?2020??[employer]. and/or its affiliates.??All rights reserved. figure 1: Sources of sodium in your diet Graphic 32407 Version 2.0 Consumer Information Use and Disclaimer This information [...] that is right for you.The use of [employer] content is governed by the [employer] Terms of Use. ??2020 [employer]. All rights reserved. Copyright ?2020??[employer] and/or its affiliates.??All rights reserved. Patient Education Patient Education Health Risks of Obesity The Basics Written by the doctors and editors at [employer] What does it mean to be obese???--??Doctors use a special measure called body mass index, or BMI,to decide who is underweight, at a healthy weight, overweight, or obese. A person with obesity weighs way too much for their height. Your BMI will tell you whether your weight is appropriate for your height (figure 1). ?? If your BMI is between 25 and 29.9, you are overweight. ?? If your BMI is 30 or greater, you have obesity. Obesity is a problem, because it increases the risks of many different health problems. It can alsomake it hard for you to move, breathe, and do other things that people who are at a healthy weight can do easily. Plus, having obesity can be hard emotionally, because it can make you feel ashamed orlike you don't fit in. What are the health risks of obesity???--??Having obesity increases a person's risk of developing many health problems. Here are just a few examples: ?? Diabetes ?? High blood pressure ?? High cholesterol ?? Heart disease (including heart attacks) ?? Stroke ?? Sleep apnea (a disorder in which you stop breathing for short periods while asleep) ?? Asthma ?? Cancer Does having obesity shorten a person's life???--??Yes. Studies show that people with obesity younger than people who are a healthy weight. They also show that the risk of goes up the heavier a person is. The degree of increased risk depends on how long the person has been obese, and on what other medical problems they have. People with central obesity might also be at risk of dying younger. Central obesity means carrying extra weight in the belly area, even if the BMI is normal. Should I see an expert???--??Yes. If you are overweight or have obesity, you can talk to your doctor or nurse. They might have suggestions on ways to lose weight. It can also help to work with a dietitian (food and nutrition expert). A dietitian can help you choose healthy foods and plan meals. Are there medical treatments that can help me lose weight???--??Yes. There are medicines and surgery to help with weight loss. But those treatments are only for people who have not been able to lose weight through lifestyle changes such as diet and exercise. Also, weight loss treatments do not takethe place of diet and exercise. People who have those treatments must also change how they eat and how active they are. What can I do to prevent the problems caused by obesity???--??The obvious answer is that you can lose weight. But even if weight loss is not possible, you can improve your health and reduce your riskif you: ?? Become more active - Many types of physical activity can help, including walking. You can start with a few minutes a day and add more as you get stronger and build up your endurance. ?? Improve your diet - It is healthy to have regular meal times, eat smaller portions, and not skipmeals. Avoid sweets and processed foods, and instead eat more vegetables and fruits. ?? Quit smoking (if you smoke) - Some people start eating more after they stop smoking, so try to make healthy food choices. Even if it increases your appetite, quitting smoking is still one of the best things you can do to improve your health. ?? Limit alcohol - Drink no more than 1 drink a day if you are woman, and no more than 2 drinks a day if you are a man. What causes obesity???--??The thing that increases a person's risk the most is having an unhealthy lifestyle. Most people develop obesity because they eat too much, eat unhealthy foods, and move too little. That's especially true of people who watch too much TV. But there are also other things thatseem to increase the risk of obesity that many people do not know about. Here are some things that m ight affect a person's chance of developing obesity: ?? Mom's habits during and after - People who eat a lot of calories, have diabetes, or smoke during have a higher chance of having babies who become obese as adults. Also, babies who drink formula might be more likely than breastfed babies to develop obesity later in life. ?? Habits and weight gain during childhood - Children or teens who are overweight or have obesity are more likely to become adults with obesity. ?? Sleeping too little - People who do not get enough sleep are more likely to develop obesity thanpeople who sleep enough. ?? Taking certain medicines - Long-term use of certain medicines, such as some medicines to treat depression, can cause weight gain. If you are concerned that one of your medicines might be making you gain weight, talk to your doctor or nurse. ?? Certain hormonal conditions - Some hormonal problems can increase the risk of developing obesity. For example, a condition called polycystic ovary syndrome can cause weight gain, along with other symptoms like irregular periods. But hormonal conditions are to blame for only a tiny fraction of cases of obesity. What if I want to have children???--??If you want to have children, you should know that obesity can make it harder for a woman to get . It can also impair a man's ability to have sex, especially if he has high blood pressure or diabetes. What's more, children born to parents with obesity have a high risk of developing obesity themselves. What if my child has obesity???--??In children, obesity has many of the same risks as it does in adults. For example, it can increase the risk of diabetes, high blood pressure, asthma, and sleep apnea. It can also cause added problems related to childhood. For example, obesity can make children grow faster than normal and speed up sexual development in girls. All topics are updated as new evidence becomes available and our peer review process is complete. This topic retrieved from [employer] on: Nov 11, 2020. Topic 44551 Version 12.0 Release: 29.1.3 - C29.60 ?2020??[employer]. and/or its affiliates.??All rights reserved. figure 1: Your body mass index (BMI) Find your height (in feet and inches) in the top row. Then find your weight (in pounds) in the first column. Now find where the column for your height and the row for your weight meet. That is your BMI. For example, if you are 9-hgfy-3-inches tall and you weigh 260 pounds, your BMI is 38. You can also go online to www.[employer]/patients and search for BMI. There you will find a calculator that will tell you what your BMI is if you type in your height and weight. Graphic 84548 Version 3.0 Consumer Information Use and Disclaimer [...] that is right for you.The use of [employer] content is governed by the [employer] Terms of Use. ??2020 [employer]. All rights reserved. Copyright ?2020??[employer]. and/or its affiliates.??All rights reserved. documented in this encounter Progress Notes * Tracy Olivares MD - 01/05/2021 10:40 AM CDTAddended by: TRACY OLIVARES on: 03/17/2021 09:22 AM Modules accepted: Orders * Tracy Olivares MD - 01/05/2021 10:40 AM CDTSummary: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
--- OUTSIDE RECORDS SUMMARY | 2024-09-07 05:27 | XMS_ITS | Encounter Summary ---
Author Organization [facility] Address [address] [place] [address]. [place] [address] Care Team Providers Care Cutter Down Name Role Phone Tracy Olivares MD Primary Care Provider [phone] Reason for Referral * Physical Medicine (Routine) - Closed Specialty Diagnoses / Procedures Referred By Contac t Referred To Contact PHYSICAL THERAPY / [facility] Physical Therapy Diagnoses Low back pain due to bilateral sciatica Chronic left shoulder pain Tracy Olivares MD [address] [place], [place] [id number] Phone: tel: fax: [facility] Physical Therapy [address] [place] [address] Phone: tel: fax: Referral ID Status Reason Start Date Expiration Date V isits Requested Visits Authorized [id number] Closed Physical Therapy 01/20/2021 02/19/2022 10 10 Scheduling Instructions For left shoulder pain and low back pain with right leg sciatica. Reason for Visit * Reason Comments ER F/U follow up from ER fo r hip pain. She states she is still having the hip pain on her right side, but she is feeling a lot better since she was in the ER Encounter Details Date Type Department Care Team (Latest Contact Info) Description 01/20/2021 10:00 AM CDT Office Visit [facility] Medical Group Multispecialty [address] [place] [address] Tracy Olivares MD [address] [facility] [address] [place] [address] ER F/U (follow up from ER for hip pain. She states she is still having the hip pain on her right side, but she is feeling a lot better since she was in the ER) Social History Tobacco Use Types Packs/Day Years [...] Sign Reading Time Taken Comments Blood Pressure 125/79 01/20/2021 9:48 AM CDT Pulse 82 01/20/2021 9:48 AM CDT Temperature 36.7 ??C (98 ??F) 01/20/2021 9:48 AM CDT Respiratory Rate 18 01/20/2021 9:48 AM CDT Oxygen Saturation - - Inhaled Oxygen Concentration - - Weight 131.5 kg (290 lb) 01/20/2021 9:48 AM CDT Height 161.3 cm (5' 3.5 ) 01/20/2021 9:48 AM CDT Body Mass Index 50.57 01/20/2021 9:48 AM CDT documented in this encounter Patient Instructions * Patient Instructions* Tracy Olivares MD - 01/20/2021 10:00 AM CDT Images from the original note were not included. Follow up in 6 weeks. Please start physical therapy for your back pain and left shoulder pain. Please let me know once you get your covid shots. Please get your bone scan done at [facility] as planned. Patient Education Patient Education Back Extension Exercises [...] doctor may have you work with a salesforce trainer or physical therapist to make a [...] your doctor. Where can I learn more? [employer] [employer] http://orthoinfo.aaos.org/topic.cfm?xfxue=T18857 NHS https://www.nhs.uk/live-well/exercise/zcrcb-mmsg-wqap-exercises/ Last Reviewed Date 2019-05-23 Consumer Information Use [...] right for you. Copyright Copyright ?? 2020 [employer]. and its affiliates and/or licensors. All rights reserved. Patient Education Patient Education Depression The Basics Written by the doctors and editors at [employer] What is depression???--??Depression is a disorder that [...] (with a psychiatrist, psychologist, nurse, or social service coordinator) ?? A device that passes magnetic waves [...] process is complete. This topic retrieved from [employer] on: Nov 11, 2020. Topic 63054 Version 14.0 Release: 29.1.3 - C29.60 ?2020??[employer]. and/or its affiliates.??All rights reserved. figure 1: Mood disorders caused by problems in the brain Mood disorders, such as depression and bipolar disorder, are caused by chemical imbalances in the brain. Treatments for these conditions work by changing the chemistry of the brain. Graphic 47956 Version 3.0 Consumer Information Use and Disclaimer [...] that is right for you.The use of [employer] content is governed by the [employer] Terms of Use. ??202 [employer]. All rights reserved. Copyright ?2020??[employer] and/or its affiliates.??All rights reserved. Patient Education Patient Education Diet and Health The Basics Written by the doctors and editors at [facility] Why is it important to eat a [...] process is complete. This topic retrieved from [employer] on: Nov 11, 2020. Topic 46845 Version 20.0 Release: 29.1.3 - C29.60 ?2020??[employer] and/or its affiliates.??All rights reserved. figure 1: Nutrition label - fiber This is an example of a nutrition label. To figure out how much fiber is in a food, look for the line that says Dietary Fiber. It's also important to look at the serving size. This food has 7 gramsof fiber in each serving, and each serving is 1 cup. Graphic 75302 Version 7.0 figure 2: Foods and drinks with calcium and vitamin D Foods rich in calcium include ice cream, soy milk, breads, kale, broccoli, milk, cheese, cottage cheese, almonds, yogurt, prnkl-iq-vfk cereals, beans, and tofu. Foods rich in vitamin D include milk, canned tuna fish, cod liver oil, yogurt, tskrd-gs-qve-cereals, cooked salmon, canned sardines, mackerel, and eggs. Some of these foods are rich in both. Graphic 77137 Version 3.0 Consumer Information Use and Disclaimer [...] that is right for you.The use of [employer] content is governed by the [employer] Terms of Use. ??2020 [employer]. All rights reserved. Copyright ?2020??[employer] and/or its affiliates.??All rights reserved. documented in this encounter Progress Notes * Tracy Olivares MD - 01/20/2021 10:00 AM CDTSummary: follow up notes Images from the original note were not included. Internal Medicine Outpatient Progress Note CC: ER F/U (follow up from ER for hip pain. She states she is still having the hip pain on her right side, but she is feeling a lot better since she was in the ER) HPI: Keegan Amaya is a 65-year-old female who presents for follow up. Patient was recently in the ER at [facility] for severe right lower extremity and low back pain. She was treated with pain medications and discharged on oral steroids. She called the office asthe pain was on going and percocet added to her medications to help with pain control. Work up in the ER included Xray of lower back and MRI of the lumbo-sacral spine which showed nerve impingement per patient report. She did not bring along records of images today for her visit. Patient has since been doing well. No physical therapy started. She rates her pain as 5/10 at worst. She has since been taking ibuprofen 400 mg daily as needed which reduces the pain to 0/10. She no longer has need forthe percocet as she says it does not help with pain. She has noticed the dose of her muscle relaxant makes her drowsy though it helps with the discomfort in her back. She is yet to get her bone scan done at [facility]- patient given number to call to set up an appointment. She is here today for follow up following that visit. According to patient she has since discontinued her Cymbalta as she did not like the side effect offeeling drowsy as such she still continues to experience feeling anxious. She would like to try an alternative medication. No concerns for suicidal ideation or intention to harm. Problem List Patient Active Problem List Diagnosis [...] Outpatient Medications Marked as Taking for the 01/20/21 encounter (Office Visit) with Tracy Olivares MD [...] Units by mouth daily. 60 capsule ??? escitalopram (LEXAPRO) 10 MG tablet Take 1 tablet (10 mg total) by mouth daily. 30 tablet 1 ??? ferrous sulfate, 65 mg elemental, 325 (65 FE) MG tablet daily. ? ? lidocaine 5 % Place 1 patch onto the skin daily for 30 days. Remove & Discard patch within 12 hours or as directed by 30 patch 0 ??? Losartan Potassium-HCTZ 100-12.5 MG Tab Take 1 tablet by mouth daily. 90 tablet 1 ??? omeprazole 20 MG capsule Take 20 mg by mouth daily. ??? ONETOUCH VERIO test strip ??? tiZANidine 2 MG tablet Take 1 tablet (2 mg total) by mouth nightly as needed. 30 tablet 0 ??? TRELEGY 100-62.5-25 MCG/INH AEROSOL POWDER, BREATH ACTIVATED Inhale 1 puff into the lungs daily. 60 each 2 ??? vitamin D2, ergocalciferol, (VITAMIN D, ERGOCALCIFEROL,) 09923 UNITS capsule ergocalciferol (vitamin D2) 1,250 mcg (50,000 unit) capsule Allergies: Allergies Allergen Reactions ??? Propoxyphene Unknown Review of Systems Constitutional: Negative. HENT: Negative. Eyes: Negative. Respiratory: Negative. Cardiovascular: Negative. Gastrointestinal: Negative. Genitourinary: Negative. Musculoskeletal: Positive for back pain and joint pain. Negative for falls, myalgias and neck pain. Mild left shoulder pain and low back pain. Skin: Negative. Neurological: Negative. Psychiatric/Behavioral: Positive for depression. Negative for hallucinations, memory loss, substance abuse and suicidal ideas. The patient is nervous/anxious. Objective: Filed Vitals: 01/20/21 0948 BP: 125/79 Pulse: 82 Resp: 18 Temp: 98 ??F (36.7 ??C) Weight: 131.5 kg (290 lb) Height: 5' 3.5 (1.613 m) PainSc: 5 Moderate Pain (0-10 Scale) Body mass index is 50.57 kg/m??. General alert, cooperative, no distress HEENT [...] mood and affect MSK No synovitis, no joint effusions. Negative straight leg raise. Mild tenderness on palpation of lower back. Lymph No cervical or supraclavicular adenopathy Assessment and Plan: Encounter Diagnose(s) ICD-10-CM ICD-9-CM SNOMED CT(R) 1. Low back pain due to bilateral sciatica M54.41 724.3 LOW BACK PAIN CO- OCCURRENT AND DUE TO BILATERAL SCIATICA tiZANidine 2 MG tablet M54.42 724.2 Ambulatory referral to Physical Therapy lidocaine 5 % 2. Class 3 severe obesity due to excess calories without serious comorbidity with body mass index (BMI) of 50.0 to 59.9 in adult ([facility]) E66.01 278.01 SEVERE OBESITY Z68.43 V85.43 3. Chronic left shoulder pain M25.512 719.41 CHRONIC PAIN OF LEFT UPPER LIMB tiZANidine 2 MG tablet G89.29 338.29 Ambulatory referral to Physical Therapy lidocaine 5 % 4. Moderate episode of recurrent major depressive disorder ([facility]) F33.1 296.32 RECURRENT MAJOR DEPRESSIVE EPISODES, MODERATE escitalopram (LEXAPRO) 10 MG tablet 5. Generalized anxiety disorder F41.1 300.02 GENERALIZED ANXIETY DISORDER escitalopram (LEXAPRO) 10MG tablet 1. Low back pain due to bilateral sciatica - patient with significant improvement; negative straight leg raise at this time - per patient report, MRI low back showed nerve impingement - patient will start with physical therapy and if no improvement will consider referral to orthopedic vs neurosurgery - tiZANidine 2 MG tablet; Take 1 tablet (2 mg total) by mouth nightly as needed. Dispense: 30 tablet; Refill: 0 - lidocaine 5 %; Place 1 patch onto the skin daily for 30 days. Remove & Discard patch within 12 hours or as directed by MD Dispense: 30 patch; Refill: 0 - okay to use ibuprofen 400 mg BID as needed as patient does not tolerate opioids and Cymbalta; will plan to monitor Cr closely- currently Cr stable at 0.85 - Ambulatory referral to Physical Therapy 2. Class 3 severe obesity due to excess calories without serious comorbidity with body mass index (BMI) of 50.0 to 59.9 in adult ([facility]) - counseled to start making lifestyle modification including dietary changes to include less saturated fats, lean meat, more vegetables and exercise at least 30 min every day. - patient plans on starting weight watchers - will plan to discuss management options in subsequent visits so as not to start multiple medications at the same time 3. Chronic left shoulder pain - tiZANidine 2 MG tablet; Take 1 tablet (2 mg total) by mouth nightly as needed. Dispense: 30 tablet; Refill: 0 - Ambulatory referral to Physical Therapy - lidocaine 5 %; Place 1 patch onto the skin daily for 30 days. Remove & Discard patch within 12 hours or as directed by MD - okplacido to use ibuprofen 400 mg BID as needed as patient does not tolerate opioids and Cymbalta; will plan to monitor Cr closely- currently Cr stable at 0.85 Dispense: 30 patch; Refill: 0 4. Moderate episode of recurrent major depressive disorder ([facility]) - patient not tolerating Cymbalta - change to escitalopram (LEXAPRO) 10 MG tablet; Take 1 tablet (10 mg total) by mouth daily. Dispense: 30 tablet; Refill: 1 - follow up 6 weeks 5. Generalized anxiety disorder - start escitalopram (LEXAPRO) 10 MG tablet; Take 1 tablet (10 mg total) by mouth daily. Dispense: 30 tablet; Refill: 1 - follow up 6 weeks Counseling given: Yes Comment: by Dr Olivares [...] was at least in part performed using [employer]ST[employer] and there may be some inherent flaws in this real estate clerk due to the nature of this program. Tracy Olivares MD Internal Medicine [facility], [facility]. documented in this encounter Plan of Treatment Upcoming Encounters Date Type Department Care Team (Late st Contact Info) Description 10/03/2024 11:00 AM FUEL CELL BATTERY TECHNICIAN Office Visit [facility] Medical Group Pulmonology Specialty Clinic - [address] [address] Nathan Baig MD [address] [place] [address] 11/14/2024 10:20 AM FUEL CELL BATTERY TECHNICIAN Office Visit [facility] Medical Group Multispecialty Care - [place] [address] [address] [place] [address] Tracy Olivares MD [address] [place] [address] Scheduled Referrals Name Type Priority Associated Diagnoses Orde r Schedule Ambulatory referral to Physical Therapy Referral Routine Low back pain due to bilateral sciatica Chronic left shoulder pain Ordered: 01/20/2021 documented as of this encounter Visit Diagnoses Diagnosis Low back pain due to bilateral sciatica- Primary Class 3 severe obesity due to excess calories without serious comorbidity with body mass index (BMI) of 50.0 to 59.9 in adult ([facility]) Chronic left shoulder pain Pain in joint, shoulder region Moderate episode of recurrent major depressive disorder ([facility]) Generalized anxiety disorder documented in this encounter Additional Health Concerns Assessment Noted Time PHQ-9 Depression Total Score: 6 01/06/20 21 12:11 PM CDT documented as of this encounter Care Teams Cutter Down Relationship Specialty Start Date End Date Tracy Olivares MD [address] [address] PCP - General INTERNAL MEDICINE 01/02/21 documented as of this encounter
--- OUTSIDE RECORDS SUMMARY | 2024-09-07 05:27 | XMS_ITS | Encounter Summary ---
Author Organization [facility] Address [address] [place] [address]. [place], [place] [address] [place] [address] Care Team Providers Care Cardiopulmonary Technologist Chief Name Role Phone Tracy Olivares MD Primary Care Provider [phone] Encounter Details Date Type Department Care Team (Latest Contact Info) Description 02/16/2021 Travel Social History Tobacco Use Types Packs/Day [...] st Contact Info) Description 10/03/2024 11:00 AM WEBSPHERE COMMERCE DEVELOPER Office Visit [facility] Medical Group Pulmonology Specialty Clinic - [place] [address] [place] [address] Nathan Baig MD [address] [place] [address] 11/14/2024 10:20 AM WEBSPHERE COMMERCE DEVELOPER Office Visit [facility] Medical Group Multispecialty Care - [place] [address] [address] [place] [address] [place] [address] [place] [address] documented as of this encounter Visit Diagnoses Not on filedocumented in this encounter Additional Health Concerns Assessment Noted Time PHQ-9 Depression Total Score: 6 01/06/20 21 12:11 PM CDT documented as of this encounter Care Teams Cardiopulmonary Technologist Chief Relationship Specialty Start Date End Date Tracy Olivares MD [address] [place] [address] PCP - General INTERNAL MEDICINE 01/02/21 documented as of this encounter
--- OUTSIDE RECORDS SUMMARY | 2024-09-07 05:27 | XMS_ITS | Encounter Summary ---
Author Organization [facility] Address [address] [place] [address]. [place], [place] [address] [place] [address] Care Team Providers Care Printer Apprentice Name Role Phone Unavailable Primary Care Provider Unavailabl e Encounter Details Date Type Department Care Team (Late st Contact Info) Description 04/06/1999 Abstract [facility] CONVERSION [address] [place] [address] , Generic MD Clarence Social History Tobacco [...] st Contact Info) Description 10/03/2024 11:00 AM FLIGHT ATTENDANT/INFLIGHT SUPERVISOR Office Visit [facility] Medical Group Pulmonology Specialty Clinic - [address] [address] Nathan Baig MD [address] [place] [address] 11/14/2024 10:20 AM FLIGHT ATTENDANT/INFLIGHT SUPERVISOR Office Visit [facility] Medical Group Multispecialty Care - [place] [address] [address] [place] [address] Tracy Olivares MD [address] [place] [address] documented as of this encounter Visit Diagnoses Not on filedocumented in this encounter
--- OUTSIDE RECORDS SUMMARY | 2024-09-07 05:27 | XMS_ITS | Encounter Summary ---
Author Organization [facility] Address [address] [place] [address]. [place], [place] [address] [place] [address] Care Team Providers Care Paint Tester Name Role Phone Tracy Olivares MD Primary Care Provider [phone] Reason for Referral * Consultation/Treatment (Routine) - Closed Specialty Diagnoses / Procedures Referred By Heidi iverson Referred To Contact EYE CARE Diagnoses Encounter for vision screening Suzan Strauss NP [address] [address] Phone: tel: fax: Referral ID Status Reason Start Date Expiration Date V isits Requested Visits Authorized [id number] Closed Specialty Services 01/19/2021 07/18/2021 1 1 Reason for Visit * Reason Onset Date Comments Referral 01/12/2021 eye screening Encounter Details Date Type Department Care Team (Late st Contact Info) Description 01/12/2021 Telephone [facility] Medical Group Multispecialty Care - [address] [place] [address] Suzan Strauss NP Referral (eye screening) Social History Tobacco Use Types Packs/Day Years [...] Notes * Suzan Strauss NP - 01/12/2021 10:00 AM CDT Needs referral to eye dr. Referral done documented in this encounter Plan of Treatment Upcoming Encounters Date Type Department Care Team (Late st Contact Info) Description 10/03/2024 11:00 AM PROCUREMENT PROFESSIONAL Office Visit [facility] Medical Group Pulmonology Specialty Clinic - [address] [address] Nathan Baig MD [address] [place] [address] 11/14/2024 10:20 AM PROCUREMENT PROFESSIONAL Office Visit [facility] Multispecialty Care - [place] [address] [address] [place] [address] Tracy Olivares MD [facility] [address] Scheduled Referrals Name Type Priority Associated Diagnoses Orde r Schedule Ambulatory referral to Eye Care Referral Routine Encounter for vision screening Ordered: 01/12/2021 documented as of this encounter Visit Diagnoses Diagnosis Encounter for vision screening- Primary Examination of eyes and vision documented in this encounter Additional Health Concerns Assessment Noted Time PHQ-9 Depression Total Score: 6 01/06/20 21 12:11 PM CDT documented as of this encounter Care Teams Paint Tester Relationship Specialty Start Date End Date Tracy Olivares MD [address] [place] [address] PCP - General INTERNAL MEDICINE 01/02/21 documented as of this encounter
--- OUTSIDE RECORDS SUMMARY | 2024-09-07 05:27 | XMS_ITS | Encounter Summary ---
Author Organization [facility] Address [address] [place] [address]. [place], [place] [address] [place] [address] Care Team Providers Care Gambling Broker Name Role Phone Unavailable Primary Care Provider Unavailabl e Encounter Details Date Type Department Care Team (Latest Contact Info) Description 07/25/2012 Abstract [facility] Medical Group Social History Tobacco Use Types [...] Info) Description 10/03/2024 11:00 AM VICE PRESIDENT OF COMPLIANCE Office Visit [facility] Medical Group Pulmonology Specialty Clinic - [address] [address] Nathan Baig MD [address] [place] [address] 11/14/2024 10:20 AM VICE PRESIDENT OF COMPLIANCE Office Visit [facility] Medical Group Multispecialty Care - [place] [address] [address] [place] [address] Tracy Olivares MD [address] [place] [address] documented as of this encounter Visit Diagnoses Not on filedocumented in this encounter
--- OUTSIDE RECORDS SUMMARY | 2024-09-07 05:27 | XMS_ITS | Encounter Summary ---
Author Organization [facility] Address [address] [place] [address]. [place], [place] [address] [place] [address] Care Team Providers Care Wet Pan Mixer Name Role Phone Tracy Olivares MD Primary Care Provider [phone] Encounter Details Date Type Department Care Team (Latest Contact Info) Description 02/06/2021 Travel Social History Tobacco Use Types Packs/Day [...] st Contact Info) Description 10/03/2024 11:00 AM COMPUTER TECHNICIAN Office Visit [facility] Medical Group Pulmonology Specialty Clinic - [place] [address] [place] [address] Nathan Baig MD [address] [place] [address] 11/14/2024 10:20 AM COMPUTER TECHNICIAN Office Visit [facility] Medical Group Multispecialty Care - [place] [address] [address] [place] [address] [place] [address] [place] [address] documented as of this encounter Visit Diagnoses Not on filedocumented in this encounter Additional Health Concerns Assessment Noted Time PHQ-9 Depression Total Score: 6 01/06/20 21 12:11 PM CDT documented as of this encounter Care Teams Wet Pan Mixer Relationship Specialty Start Date End Date Tracy Olivares MD [address] [place] [address] PCP - General INTERNAL MEDICINE 01/02/21 documented as of this encounter
--- OUTSIDE RECORDS SUMMARY | 2024-09-07 05:27 | XMS_ITS | Encounter Summary ---
Author Organization [facility] Address [address] [place] [address]. [place] [id number] [place] [address] Care Team Providers Care Phosphoric Acid Operator Name Role Phone Tracy Olivares MD Primary Care Provider [phone] Reason for Visit * Reason Onset Date Comments Follow Up Call 01/08/2021 Encounter Details Date Type Department Care Team (Late st Contact Info) Description 01/08/2021 Telephone [facility] Multispecialty Care - [place] [address] [address] [place] [address] Tracy Olivares MD [address] [place] [address] [address] [place] [address] Follow Up Call Social History [...] Progress Notes * Tracy Olivares MD - 01/08/2021 12:52 PM CDT Called patient who had earlier on called. She has since been discharge from the ER for right lower extremity sciatic nerve pain. Had Xray, MRI done and currently on oral steroid taper and Vitamin D. She is gradually improving. She would liketo follow up for this ER visit. Will plan to see her on 01/20/2021 at 10 am. All questions answered. Tracy Olivares MD Internal Medicine [facility]. documented in this encounter Plan of Treatment Upcoming Encounters Date Type Department Care Team (Late st Contact Info) Description 10/03/2024 11:00 AM MAINTENANCE SERVICE TECHNICIAN Office Visit [facility] Pul[facility]ology Specialty Clinic - [address] [address] Nathan Baig MD [address] [place] [address] 11/14/2024 10:20 AM MAINTENANCE SERVICE TECHNICIAN Office Visit [facility] Multispecialty Care - [place] [address] [address] [place] [address] Tracy Olivares MD [facility] [address] [address] documented as of this encounter Visit Diagnoses Not on filedocumented in this encounter Additional Health Concerns Assessment Noted Time PHQ-9 Depression Total Score: 6 01/06/20 21 12:11 PM CDT documented as of this encounter Care Teams Phosphoric Acid Operator Relationship Specialty Start Date End Date Tracy Olivares MD [address] [place] [address] PCP - General INTERNAL MEDICINE 01/02/21 documented as of this encounter
--- OUTSIDE RECORDS SUMMARY | 2024-09-07 05:27 | XMS_ITS | Encounter Summary ---
Author Organization [facility] Address [address] [place] [address]. [place], [place] [address] [place] [address] Care Team Providers Care Three Dimensional Map Modeler Name Role Phone Tracy Olivares MD Primary Care Provider [phone] Reason for Visit * Reason Comments Colonoscopy Report (SCAN) Encounter Details Date Type Department Care Team ([facility] Contact Info) Description 05/26/2020 Scan [facility] INFO SRVCS Scanned, Documents Colonoscopy Report (SCAN) Social History Tobacco Use Types Packs/Day [...] Upcoming Encounters Date Type Department Care Team ([facility] Contact Info) Description 10/03/2024 11:00 AM CONTINUOUS IMPROVEMENT ANALYST Office Visit [facility] Pul[facility] - [address] [place] [address] Nathan Baig MD [address] [place] [address] 11/14/2024 10:20 AM CONTINUOUS IMPROVEMENT ANALYST Office Visit [facility] Multispecialty Care - [place] [address] [address] [place] [address] Tracy Olivares MD [address] [address] documented as of this encounter Procedures Procedure Name Priority Date/Time Associated Diagnosis Comments COLONOSCOPY GENERIC (SCAN ORDER) 05/26/2020 documented in this encounter Results * COLONOSCOPY GENERIC (05/26/2020) 05/26/2020 Narrative 05/26/2020 Ordered by an unspecified provider. us Documents Scanned SCANNING Final Result documented in this encounter Visit Diagnoses Not on filedocumented in this encounter Care Teams Three Dimensional Map Modeler Relationship Specialty Start Date End Date Tracy Olivares MD [address] [address] PCP - General INTERNAL MEDICINE 01/02/21 documented as of this encounter
--- OUTSIDE RECORDS SUMMARY | 2024-09-07 05:27 | XMS_ITS | Encounter Summary ---
Author Organization [facility] Address [address] [place] [address]. [place], [place] [address] [place] [address] Care Team Providers Care Field Contact Technician Name Role Phone Tracy Olivares MD Primary Care Provider [phone] Encounter Details Date Type Department Care Team (Latest Contact Info) Description 01/20/2021 Travel Social History Tobacco Use Types Packs/Day [...] st Contact Info) Description 10/03/2024 11:00 AM MANAGER FLIGHT OPERATIONS Office Visit [facility] Medical Group Pulmonology Specialty Clinic - [place] [address] [place] [address] Nathan Baig MD [address] [place] [address] 11/14/2024 10:20 AM MANAGER FLIGHT OPERATIONS Office Visit [facility] Group Multispecialty Care - [place] [address] [address] [place] [address] [place] [address] [place] [address] documented as of this encounter Visit Diagnoses Not on filedocumented in this encounter Additional Health Concerns Assessment Noted Time PHQ-9 Depression Total Score: 6 01/06/20 21 12:11 PM CDT documented as of this encounter Care Teams Field Contact Technician Relationship Specialty Start Date End Date Tracy Olivares MD [address] [place] [address] PCP - General INTERNAL MEDICINE 01/02/21 documented as of this encounter
--- OUTSIDE RECORDS SUMMARY | 2024-09-07 05:27 | XMS_ITS | Encounter Summary ---
Author Organization [facility] Address [address] [place] [address]. [place], [place] [address] [place] [address] Care Team Providers Care Line Cleaner Name Role Phone Tracy Olivares MD Primary Care Provider [phone] Reason for Visit * Reason Comments Sleep Study (SCAN) Encounter Details Date Type Department Care Team ([facility] Contact Info) Description 02/18/2020 Scan HEALTH INFO SRVCS Scanned, Documents Sleep [...] Foundation Contact Info) Description 10/03/2024 11:00 AM VOLUNTEER FIREFIGHTER Office Visit [facility] Pulmonology Specialty Clinic - [address] [place] [address] Nathan Baig MD [address] [place] [address] 11/14/2024 10:20 AM VOLUNTEER FIREFIGHTER Office Visit [facility] Multispecialty Care - [place] [address] [place] [address] [address] [place] [address] Tracy Olivares MD [address] [facility] [address] [place] [address] documented as of this encounter Procedures Procedure Name Priority Date/Time Associated Diagnosis Comments SLEEP STUDY GENERIC (SCAN ORDER) 02/18/2020 SLEEP STUDY GENERIC (SCAN ORDER) 02/18/2020 SLEEP STUDY GENERIC (SCAN ORDER) 02/18/2020 SLEEP STUDY GENERIC (SCAN ORDER) 02/18/2020 documented in this encounter Results * SLEEP STUDY GENERIC (02/18/2020) 02/18/2020 Narrative 02/18/2020 Ordered by an unspecified provider. us Documents Scanned SCANNING Final Result * SLEEP STUDY GENERIC (02/18/2020) 02/18/2020 Narrative 02/18/2020 Ordered by an unspecified provider. us Documents Scanned SCANNING Final Result * SLEEP STUDY GENERIC (02/18/2020) 02/18/2020 Narrative 02/18/2020 Ordered by an unspecified provider. us Documents Scanned SCANNING Final Result * SLEEP STUDY GENERIC (02/18/2020) 02/18/2020 Narrative 02/18/2020 Ordered by an unspecified provider. us Documents Scanned SCANNING Final Result documented in this encounter Visit Diagnoses Not on filedocumented in this encounter Care Teams Line Cleaner Relationship Specialty Start Date End Date Tarcy Olivares MD [address] [address] PCP - General INTERNAL MEDICINE 01/02/21 documented as of this encounter
--- OUTSIDE RECORDS SUMMARY | 2024-09-07 05:36 | XMS_ITS | Encounter Summary ---
Author Organization [facility] Address [address] [place] [address] Care Team Providers Care Funeral Planning Counselor Name Role Phone Tracy Olivares MD Primary Care Provider [phone] Reason for Visit * Reason Onset Date Comments IVABX stop date 08/08/2024 Encounter Details Date Type Department Care Team (Late st Contact Info) Description 08/08/2024 Telephone [facility] INFECTIOUS DISEASE [place] [address] [place] [address] [place] [address] Indio Oliver MD [address] [facility] [address] [place] [address] IVABX stop date Social History Tobacco Use Types Packs/Day Years Used Date Smoking Tobacco: Former Cigarettes Feeling Safe Answer Date Recorded Are you in a relationship wi th someone who hurts you emotionally and/or physically? No 06/27/2024 Food Insecurity Answer Date Recorded Social/Environmental Concerns No concerns Transportation Needs Answer Date Record ed Social/Environmental Concerns No concerns Housing Stability Answer Date Recorded Social/Environmental Concerns No concerns Utility Needs Answer Date Recorded Social/Environmental Concerns No concerns Sex and Gender Information Value Date Recorded Sex Assigned at Not on file Gender Identity Not on file Sexual Orientation Not on file documented as of this encounter Miscellaneous Notes * Telephone Encounter - Stacy Abarca LPN - 08/08/2024 11:54 AM CST Current stop date for IV abx is set for 08-10-24 however per Roger at [facility] labs have not been drawn on this patient. Roger did speak to [facility] and they will going today to draw labs. Per Dr. Oliver he would like to extend out IVABX Cefepime until 08-13-24 so that he canmonitor labs before stopping and removing PICC line. Confirmed orders with Pharmacist Roger. GAGE BANKER documented in this encounter Plan of Treatment Upcoming Encounters Date Type Department Care Team (Late st Contact Info) Description 10/04/2024 10:00 AM MORTGAGE BANKER Office Visit [facility] Neurosurgery - [facility] [address] [facility] [address] [place] [address] Harris Fischer MD [address] [facility] [address] [place] [address] documented as of this encounter Visit Diagnoses Not on filedocumented in this encounter Care Teams Funeral Planning Counselor Relationship Specialty Start Date End Date Tracy Olivares MD [address] [place] [address] PCP - General Internal Medicine 07/02/24 documented as of this encounter
--- OUTSIDE RECORDS SUMMARY | 2024-09-07 05:36 | XMS_ITS | Encounter Summary ---
Author Organization [facility] Address [address] [place] [address] Care Team Providers Care Rotary Cutter Operator Name Role Phone Tracy Olivares MD Primary Care Provider [phone] Encounter Details Date Type Department Care Team (Late st Contact Info) Description 08/21/2024 Abstract [facility] INFECTIOUS DISEASE [place] [address] [place] [address] [place] [address] Indio Oliver MD [address] [facility] [address] [place] [address] Social History Tobacco Use Types Packs/Day Years [...] st Contact Info) Description 10/04/2024 10:00 AM ARMORED MACHINE OPERATOR Office Visit [facility] Neurosurgery - [facility] [place] [address] [facility] [address] [place] [address] Harris Fischer MD [address] [facility] [address] [place] [address] documented as of this encounter Visit Diagnoses Not on filedocumented in this encounter Care Teams Rotary Cutter Operator Relationship Specialty Start Date End Date Tracy Olivares MD [address] [place] [address] PCP - General Internal Medicine 07/02/24 documented as of this encounter
--- OUTSIDE RECORDS SUMMARY | 2024-09-07 05:36 | XMS_ITS | Clinical Summary ---
Author Organization [facility] Address [address] [place] [address] Phone Care Team Providers Care Chemistry Technologist Name Role Phone Tracy Olivares MD Primary Care Provider [phone] Allergies Active Allergy Reactions Criticality Noted Date Comments Celecoxib Itching Medium 06/27/2024 Medications Medication Sig Dispensed Refills Start Date End Date Status pantoprazole (PROTONIX) 40 mg Tablet, Delayed Release (E.C.) Take 40 mg by mouth daily. Active cetirizine (ZyrTEC) 5 mg tablet Take 1 Tablet (5 mg) by mouth daily. 07/03/2024 Active melatonin 3 mg Tablet Take 1 Tablet (3 mg) by mouth nightly as needed for Insomnia. 07/02/2024 Active polyethylene glycol (MIRALAX) 17 gram Powder in Packet Take 1 Packet (17 Grams) by mouth 1 time daily as needed for Constipation. 07/02/2024 Active sennosides-docusa te sodium (SENNA-S) 8.6-50 mg tablet Take 1 Tablet by mouth 2 times daily as needed for Constipation. 07/02/2024 Active famotidine (PEPCID) 20 mg tablet Take one tablet two times daily as needed for heart burn. 03/20/2024 Active Cholecalciferol, Vitamin D3, 50 mcg (2,000 unit) Capsule Take 2,000 Units by mouth daily. 30 Capsule 07/10/2024 08/09/2024 empagliflozin (JARDIANCE) 25 mg tablet Take 1 Tablet (25 mg) by mouth daily in the morning. 30 Tablet 07/10/2024 08/09/2024 albuterol sulfate HFA 90 mcg/actuation aerosol inhaler Take 2 Puffs by inhalation every 6 hours as needed for Shortness of Breath. 8.5 Gram 07/10/2024 08/09/2024 aspirin (ECOTRIN EC) 81 mg Tablet, Delayed Release (E.C.) Take 1 Tablet (81 mg) by mouth daily. 30 Tablet 07/10/2024 08/09/2024 atorvastatin (LIPITOR) 20 mg tablet Take 1 Tablet (20 mg) by mouth daily. 30 Tablet 07/10/2024 08/09/2024 fluticasone-umecl idinium-vilantero l (TRELEGY ELLIPTA) 200-62.5-25 mcg Disk with Device Take 1 Puff by inhalation daily. 60 Each 07/10/2024 08/09/2024 gabapentin (NEURONTIN) 300 mg capsule Take 1 Capsule (300 mg) by mouth 2 times daily. 60 Capsule 07/10/2024 08/09/2024 Active Problems Problem Noted Date Diagnosed Date FAISAL (obstructive sleep apnea) 06/29/2024 Discitis of lumbar region 06/27/2024 HLD (hyperlipidemia) 06/27/2024 Asthma 06/27/2024 GERD (gastroesophageal reflux disease) Peripheral neuropathy 06/27/2024 Osteomyelitis of lumbar spine 06/27/2024 Benign hypertension 06/27/2024 Epidural abscess 06/27/2024 Encounters Date Type Department Care Team Description 09/06/2024 Telephone [facility] Neurosurgery - [facility] [place] [address] [facility] [address] [place] [address] Harris Fischer MD Wants Appointment 08/29/2024 Telephone [facility] INFECTIOUS DISEASE [place] [facility] [address] [facility] [address] [place] [address] Indio Oliver MD Critical lab value 08/29/2024 Abstract [facility] INFECTIOUS DISEASE [place] [address] [facility] [address] [place] [address] Indio Oliver MD 08/27/2024 Telephone [facility] INFECTIOUS DISEASE [place] B [address] [facility] [address] [place] [address] Indio Oliver MD IV abx stop date 08/27/2024 Abstract [facility] INFECTIOUS DISEASE [place] [facility] [address] [place] [address] [place] [address] Indio Oliver MD 08/21/2024 External Device Data ST[facility] ABSTRACTION Provider, Abstract 08/21/2024 Telephone [facility] INFECTIOUS DISEASE [place] [facility] [address] [place] [address] [place] [address] Indio Oliver MD Labs Only 08/21/2024 Abstract [facility] INFECTIOUS DISEASE [place] [facility] [address] [place] [address] [place] [address] Indio Oliver MD 08/15/2024 Abstract [facility] Neurosurgery - Medical [place] [address] [place] [address] Harris Fischer MD 08/15/2024 Abstract [facility] INFECTIOUS DISEASE [place] [facility] [address] [place] [address] [place] [address] Indio Oliver MD 08/13/2024 Telephone [facility] INFECTIOUS DISEASE [place] [facility] [address] [place] [address] [place] [address] Indio Oliver MD Results 08/13/2024 Telephone [facility] Neurosurgery - [facility] [place] [address] [place] [address] Harris Fischer MD Question 08/13/2024 Abstract [facility] INFECTIOUS DISEASE [place] [facility] [address] [place] [address] [place] [address] Indio Oliver MD 08/08/2024 Telephone [facility] INFECTIOUS DISEASE [place] [facility] [address] [place] [address] [place] [address] Indio Oliver MD IVABX stop date 07/31/2024 External Device Data STL ABSTRACTION Provider, Abstract 07/11/2024 Telephone [facility] Neurosurgery - [facility] [place] [address] [facility] [address] [place] [address] Harris Fischer MD TLSO Ivon 07/10/2024 10:00 AM CDT - 07/10/2024 11:59 PM CDT Hospital Encounter [facility] Emergency Medical Services [facility] [address] [place] [address] Dylan Jackson MD Ambulance, [facility] Discharge Disposition: Intermediate Care Facility 07/03/2024 External Device Data STL ABSTRACTION Provider, Abstract 06/28/2024 10:17 AM CDT Anesthesia Event [facility] Interventional Radiology [facility] [address] [place] [address] Gopal Cedeno MD 06/27/2024 12:46 AM CDT - 07/10/2024 12:43 PM CDT Hospital Encounter [facility] [address] [place] [address] Aissatou Lanza, Daljit Scales MD Kenguva, Venkata, MD Dundoo, Gayathri, MD Austin, Karen, MD Wang, Edward, MD Discitis of lumbar region Discharge Disposition: Discharged/transfer red to a longterm facility (SNF) with Medicare certificatio 06/27/2024 Travel from Last 3 Months Immunizations Name Administration Dates Next Due (PREVNAR 20)(6 WKS UP) PNEUM OCOCCAL CONJUGATE VACCINE 20-VALENT (PCV20), POLYSACCHARIDE AOY745 CONJUGATE, ADJUVANT 0.5 ML (PF) IM 07/10/2024 INFLUENZA VACCINE HIGH DOSE TRIVALENT SPLIT VIRUS, (65 YR UP), 0.5ML (PF), IM 07/10/2024 Social History Tobacco Use Types Packs/Day Years Used Date Smoking Tobacco: Former Cigarettes Tobacco Cessation:Counseling Given: Not Answered Feeling Safe Answer Date Recorded Are you [...] Sign Reading Time Taken Comments Blood Pressure 119/76 07/10/2024 11:59 AM CDT Pulse 78 07/10/2024 11:59 AM CDT Temperature 36.8 ??C (98.2 ??F) 07/10/2024 1 1:59 AM CDT Respiratory Rate 18 07/10/2024 11:5 9 AM CDT Oxygen Saturation 96% 07/10/2024 11: 59 AM CDT Inhaled Oxygen Concentration - - Weight 122.2 kg (269 lb 6.4 oz) 06/27/2024 2:00 AM CDT Height 167.6 cm (5' 6 ) 06/27/2024 1:21 AM CDT Body Mass Index 43.48 06/27/2024 1:21 AM CDT Plan of Treatment Upcoming Encounters Date Type Department Care Team (Late st Contact Info) Description 10/04/2024 10:00 AM ACTIVITIES DIRECTOR Office Visit [facility] Neuro[facility] - [facility] [place] [address] [facility] [address] [place] [address] Harris Fischer MD [address] [facility] [address] [place] [address] Health Maintenance Due Date Last Done Comments DIABETES ANNUAL FOOT EXAM 1973 DIABETES ANNUAL RETINAL EXAM 1973 DIABETES MICROALBUMIN ANNUAL SCREEN 1973 LDL CHOLESTEROL ANNUAL 1973 BREAST CANCER SCREENING 1995 FIT-DNA Q 3 years 2000 FIT/FOBT Q 1 year 2000 Flex Sig/CT Colonography Q 5 years 2000 ZOSTER VACCINE (1 of 2) 2005 RSV VACCINE (60+ or ) (1 - Risk 60-74 years 1-dose series) 2015 COVID-19 Vaccine (2023-2 5 season) 2024 06/08/2023, 04/28/2022, 12/30/2020, Additional history exists DIABETES HBA1C Q 6 MONTHS 09/25/2024 03/25/2024, 08/2024 COLORECTAL SCREENING 05/26/2030 05/26/2020 Colorectal Cancer Screening 05/26/2030 DTAP/TDAP/TD VACCINES (2 - T d or Tdap) 07/06/2031 07/06/2021 OSTEOPOROSIS SCREENING Completed 03/17/2021, 2020 Medicare Advantage ([place]) Preventative Visit/Annual Wellness Visit Completed 03/20/2024, 01/07/2023, 01/05/2022 INFLUENZA VACCINE Completed 07/10/2024, , 06/16/2022, Additional history exists PNEUMOCOCCAL VACCINE 65+ YEARS Completed 1 , 04/02/2022, 03/03/2021, Additional history exists Procedures Procedure Name Priority Date/Time Associated Diagnosis Comments XR CHEST PA OR AP 1 VW Stat 07/09/2024 2:52 PM CDT POC GLUCOSE Routine 07/07/2024 9:25 PM CDT POC GLUCOSE Routine 07/07/2024 5:10 PM CDT POC GLUCOSE Routine 07/07/2024 12:26 PM CDT POC GLUCOSE Routine 07/07/2024 7:39 AM CDT BASIC METABOLIC PANEL Routine 07/07/2024 5:10 AM CDT CBC WITH DIFFERENTIAL Routine 07/07/2024 5:10 AM CDT POC GLUCOSE Routine 07/06/2024 8:47 PM CDT POC GLUCOSE Routine 07/06/2024 5:20 PM CDT POC GLUCOSE Routine 07/06/2024 9:10 AM CDT POC GLUCOSE Routine 07/05/2024 9:43 PM CDT POC GLUCOSE Routine 07/05/2024 4:48 PM CDT POC GLUCOSE Routine 07/05/2024 12:38 PM CDT POC GLUCOSE Routine 07/05/2024 7:52 AM CDT POC GLUCOSE Routine 07/04/2024 4:57 PM CDT POC GLUCOSE Routine 07/04/2024 11:38 AM CDT POC GLUCOSE Routine 07/04/2024 7:44 AM CDT BASIC METABOLIC PANEL Routine 07/04/2024 6:41 AM CDT CBC WITH DIFFERENTIAL Routine 07/04/2024 6:41 AM CDT POC GLUCOSE Routine 07/03/2024 10:51 PM CDT POC GLUCOSE Routine 07/03/2024 5:22 PM CDT POC GLUCOSE Routine 07/03/2024 1:41 PM CDT POC GLUCOSE Routine 07/03/2024 8:40 AM CDT POC GLUCOSE Routine 07/02/2024 10:39 PM CDT POC GLUCOSE Routine 07/02/2024 6:36 PM CDT POC GLUCOSE Routine 07/02/2024 1:41 PM CDT MRSA PCR RAPID SCREEN Routine 07/02/2024 9:50 AM CDT VANCOMYCIN LEVEL TROUGH Timed Study 07/02/2024 9:48 AM CDT IR VENOUS ACCESS Routine 07/02/2024 8:56 AM CDT POC GLUCOSE Routine 07/02/2024 8:08 AM CDT POC GLUCOSE Routine 07/01/2024 11:37 PM CDT POC GLUCOSE Routine 07/01/2024 7:24 PM CDT POC GLUCOSE Routine 07/01/2024 12:25 PM CDT POC GLUCOSE Routine 07/01/2024 7:50 AM CDT POC GLUCOSE Routine 06/30/2024 8:22 PM CDT POC GLUCOSE Routine 06/30/2024 1:23 PM CDT VANCOMYCIN LEVEL TROUGH Timed Study 06/30/2024 12:39 PM CDT POC GLUCOSE Routine 06/30/2024 9:39 AM CDT POC GLUCOSE Routine 06/29/2024 9:16 PM CDT XR LUMBAR SPINE 2 OR 3 VW Routine 06/29/2024 4:25 PM CDT BASIC METABOLIC PANEL Routine 06/29/2024 2:10 PM CDT POC GLUCOSE Routine 06/29/2024 12:31 PM CDT CBC WITH DIFFERENTIAL Routine 06/29/2024 9:24 AM CDT POC GLUCOSE Routine 06/29/2024 8:03 AM CDT POC GLUCOSE Routine 06/28/2024 9:16 PM CDT PATHOLOGY Pathology 06/28/2024 11:21 AM CDT ANAEROBIC/AEROBIC CULTURE W GRAM STAIN Routine 06/28/2024 11:21 AM CDT IR BIOPSY Routine 06/28/2024 11:15 AM CDT TX ANES INSERT ENDOTRACHEAL AIRWAY Routine 06/28/2024 10:35 AM CDT POC GLUCOSE Routine 06/28/2024 8:00 AM CDT POC GLUCOSE Routine 06/28/2024 4:15 AM CDT POC GLUCOSE Routine 06/28/2024 12:04 AM CDT POC GLUCOSE Routine 06/27/2024 9:07 PM CDT POC GLUCOSE Routine 06/27/2024 4:51 PM CDT BLOOD CULTURE Routine 06/27/2024 2:44 PM CDT BLOOD CULTURE Routine 06/27/2024 2:44 PM CDT PROTIME-INR Stat 06/27/2024 2:32 PM CDT COMPREHENSIVE METABOLIC PANEL Stat 06/27/2024 2:31 PM CDT CBC WITH DIFFERENTIAL Stat 06/27/2024 2:31 PM CDT C-REACTIVE PROTEIN Routine 06/27/2024 2: 31 PM CDT SEDIMENTATION RATE Routine 06/27/2024 2: 31 PM CDT PHOSPHORUS Routine 06/27/2024 2:31 PM CDT MAGNESIUM LEVEL Routine 06/27/2024 2:31 PM CDT BLOOD CULTURE Routine 06/27/2024 2:31 PM CDT BLOOD CULTURE Routine 06/27/2024 2:31 PM CDT POC GLUCOSE Routine 06/27/2024 12:50 PM CDT POC GLUCOSE Routine 06/27/2024 8:18 AM CDT EKG 12-LEAD Routine 06/27/2024 7:04 AM CDT MRI LUMBAR W WO CONTRAST Routine 06/27/2024 3:43 AM CDT POC GLUCOSE Routine 06/27/2024 1:09 AM CDT from Last 3 Months Results * XR CHEST PA OR AP 1 VW (07/09/2024 2:52 PM CDT) Anatomical Region Laterality Modality Chest Computed Radiogr aphy 07/09/2024 2:53 PM CDT Impressions 07/09/2024 3:30 PM CDT IMPRESSION: No active disease. ?? DICTATION LOCATION: Location 1 - [facility] Narrative 07/09/2024 3:30 PM CDT XR CHEST PA OR AP 1 VW DATE: 07/09/2024 2:52 PM HISTORY: Other - Please see comments, Comment: ??picc placement. ?? Epidural abscess; Osteomyelitis of lumbar spine ?? COMPARISON: None. FINDINGS: The heart and mediastinum are within normal limits. The lungs are free of active infiltrates or congestion. ??No pleural effusion or pneumothorax is identified. The visible bony structures are unremarkable. ??A PICC line is seen at the innominate confluence. INCIDENTAL FINDINGS: ??None. Procedure Note Kali Aly MD - 07/09/2024 XR CHEST PA OR AP 1 VW DATE: 07/09/2024 2:52 PM HISTORY: Other - Please see comments, Comment: picc placement. Epidural abscess; Osteomyelitis of lumbar spine COMPARISON: None. FINDINGS: The heart and mediastinum are within normal limits. The lungs are free of active infiltrates or congestion. No pleural effusion or pneumothorax is identified. The visible bony structures are unremarkable. A PICC line is seen at the innominate confluence. INCIDENTAL FINDINGS: None. IMPRESSION: No active disease. DICTATION LOCATION: Location 1 - [facility] Sydnie Sequeira MD DIAGNOSTIC IMAGING O RDERABLES * (ABNORMAL) POC GLUCOSE (07/07/2024 9:25 PM CDT) Only the most recent of41 resultswithin the time period is included. GLUCOSE POC 127(H) 74 - 99 mg/dL 07/07/2024 9:25 PM CDT [facility] SPECIMEN SOURCE, GLUCOSE POC Whole Blood 07/07/2024 9:25 PM CDT [facility] COMMENT, GLU POC Notified RN/MD 07/07/2024 9:25 PM CDT [facility] Blood, whole 07/07/2024 9:25 PM CDT 07/07/2024 9:33 PM CDT Sydnie Sequeira MD POINT OF CARE TESTIN G [facility] CLIA# [id number] [address] [place], [place] [id number] * (ABNORMAL) CBC WITH DIFFERENTIAL (07/07/2024 5:10 AM CDT) Only the most recent of4 resultswithin the time period is included. Pathologist [facility] WBC 7.0 4.0 - 9.8 K/uL 07/07/2024 6:08 AM CDT [facility] RBC 3.63(L) 3.90 - 4.90 M/uL 07/07/2024 6:08 AM CDT [facility] HEMOGLOBIN 10.3(L) 11.8 - 14.8 g/dL 07/07/2024 6:08 AM T [facility] HEMATOCRIT 33.4(L) 35.5 - 44.0 % 07/07/2024 6:08 AM CDT [facility] MCV 92.0 82.0 - 99.0 fL 07/07/2024 6:08 AM CDT [facility] LABORATORY SERVICES - [facility] MCH 28.4 27.2 - 32.6 pg 07/07/2024 6:08 AM CDT [facility] - [facility] MCHC 30.8(L) 31.5 - 35.5 g/dL 07/07/2024 6:08 AM CDT [facility] RDW 16.3(H) 11.5 - 14.5 % 07/07/2024 6:08 AM CDT [facility] RDW-STDEV 54.8(H) 37.1 - 48.7 fL 07/07/2024 6:08 AM CDT [email or web address] - [facility] PLATELETS 215 140 - 350 K/uL 07/07/2024 6:08 AM CDT [email or web address] - [facility] MPV 9.9 9.3 - 12.4 fL 07/07/2024 6:08 AM CDT [email or web address] NEUTROPHILS 54 % 07/07/2024 6:08 AM CDT [email or web address] LYMPHOCYTES 35 % 07/07/2024 6:08 AM CDT [email or web address] LABORATORY SERVICES - . [facility] MONOCYTES 8 % 07/07/2024 6:08 AM CDT [email or web address] LABORATORY SERVICES - . [facility] EOSINOPHILS 3 % 07/07/2024 6:08 AM CDT [email or web address] - [facility] BASOPHILS 0 % 07/07/2024 6:08 AM CDT [email or web address] LABORATORY SERVICES - . [facility] IMMATURE GRANULOCYTES 0 % 07/07/2024 6:08 AM CDT [email or web address] LABORATORY SERVICES - . [facility] NEUTROPHIL ABSOLUTE 3.76 1.90 - 7.00 K/uL 07/07/2024 6:08 AM CDT [facility] - . [facility] LYMPHOCYTE ABSOLUTE 2.42 0.70 - 4.50 K/uL 07/07/2024 6:08 AM CDT [email or web address] LABORATORY SERVICES - . [facility] MONOCYTE ABSOLUTE 0.56 0.10 - 1.30 K/uL 07/07/2024 6:08 AM CDT [email or web address] LABORATORY SERVICES - . [facility] EOSINOPHIL ABSOLUTE 0.23 0.00 - 0.70 K/uL 07/07/2024 6:08 AM CDT [email or web address] LABORATORY SERVICES - . [facility] BASOPHILS ABSOLUTE 0.03 0.00 - 0.20 K/uL 07/07/2024 6:08 AM T [facility]ORAT[facility] SERVICES - . [facility] IMMATURE GRANULOCYTES ABSOLUTE 0.02 0.00 - 0.03 K/uL 07/07/2024 6:08 AM [facility] [place] 2] [facility]AT[facility] SERVICES - [facility] Blood Venipuncture / Unknown 07/07/2024 5:10 AM CDT 07/07/2024 5:15 AM CDT Sydnie Sequeira MD HEMATOLOGY ORDERABLE S [facility] SERVICES [facility] CLIA# [id number] [address] [facility] [place] [address] * (ABNORMAL) BASIC METABOLIC PANEL (07/07/2024 5:10 AM CDT) Only the most recent of3 resultswithin the time period is included. SODIUM 142 136 - 145 mmol/L 07/07/2024 5:54 AM [facility] [place] 2[place] [email or web address] LABORATORY SERVICES [facility] POTASSIUM 4.1 3.5 - 5.0 mmol/L 07/07/2024 5:54 AM [facility] [place] 2] [email or web address] LABORATORY SERVICES [facility] CHLORIDE 105 98 - 107 mmol/L 07/07/2024 5:54 AM [facility] [place]NOTE 2] [email or web address] LABORATORY SERVICES [facility] CO2 30(H) 22 - 29 mmol/L 07/07/2024 5:54 AM [facility] [place]NOTE 2[place] [email or web address] LABORATORY SERVICES [facility] CALCIUM 9.2 8.6 - 10.2 mg/dL 07/07/2024 5:54 AM T [email or web address] LABORATORY SERVICES [facility]. [facility] BUN 15 8 - 23 mg/dL 07/07/2024 5:54 AM T [email or web address] LABORATORY SERVICES [facility]. [facility] CREATININE 0.67 0.51 - 0.95 mg/dL 07/07/2024 5:54 AM [facility] [place]NOTE 2[place] [email or web address] LABORATORY SERVICES [facility] GLUCOSE 111(H) 74 - 99 mg/dL 07/07/2024 5:54 AM T [email or web address] LABORATORY SERVICES [facility]. [facility] GFR >60 >=60 mL/min/1.7 3 sq meter 07/07/2024 5:54 AM T [facility] Comment:eGFR calculated with 2020 CKD-EPI equation. Vegetarian diet, extremely high or low muscle mass, and may affect results. Cystatin C with Glomerular Filtration Rate is a suitable alternative for these patients. ANION GAP 7(L) 8 - 16 mmol/L 07/07/2024 5:54 AM CDT [facility] Blood Venipuncture / Unknown 07/07/2024 5:10 AM CDT 07/07/2024 5:15 AM CDT Sydnie Sequeira MD CHEMISTRY ORDERABLES Performing Organization Address [facility] Co de Phone Number [facility]# [id number] [address] [place] [address] * MRSA PCR RAPID SCREEN (07/02/2024 9:50 AM CDT) Pathologist [facility] MRSA PCR RESULT MRSA not detected MRSA not detected 07/02/2024 11:21 AM CDT [facility] Surveillance ANTERIOR NARES SWAB / Unknown Collection / Unknown 07/02/2024 9:50 AM CDT 07/02/2024 9:56 AM CDT Narrative [facility] - 07/02/2024 11:21 AM CDT This assay is used to detect Methicillin-Resistant S. aureus (MRSA) colonization of the nares. PLEASE NOTE: ??This test has not been approved to monitor effectiveness of MRSA decolonization. Residual DNA may temporarily be present after successful decolonization. This test was performed using an FDA approved screening methodology. Indio Oliver MD MICROBIOLOGY - [facility] ORDERABLES Performing Organization Address [facility]/ZIP Co de Phone Number [facility]# [id number] [address] [place] [address] * (ABNORMAL) VANCOMYCIN LEVEL TROUGH (07/02/2024 9:48 AM CDT) Only the most recent of2 resultswithin the time period is included. Pathologist [facility] VANCOMYCIN, TROUGH 18.7(H) 10.0 - 17.0 ug/mL 07/02/2024 10:41 AM CDT [facility] Blood Collection / Unknown 07/02/2024 9:48 AM CDT 07/02/2024 9:56 AM CDT Mia Fowler MD CHEMISTRY ORDERABLES [facility] LABORATORY [facility] CLIA# [id number] [address] [place] [place] [address] * IR VENOUS ACCESS (07/02/2024 8:56 AM CDT) Narrative 07/02/2024 8:56 AM CDT Order information only. ??Exam was auto-finalized. ?? Indio Oliver MD IR ORDERABLES * XR LUMBAR SPINE 2 OR 3 VW (06/29/2024 4:25 PM CDT) Anatomical Region Laterality Modality Spine Computed Radiogr aphy 06/29/2024 5:12 PM CDT Impressions 06/29/2024 7:50 PM CDT IMPRESSION: 1. ??Stable irregular endplate changes at L4-L5 consistent with discitis/osteomyelitis. 2. ??Unchanged grade 1 anterolisthesis of L2-L3, L3-L4, and L4-L5. DICTATION LOCATION: Location 4 Narrative 06/29/2024 7:50 PM CDT XR LUMBAR SPINE 2 OR 3 VW DATE: 06/29/2024 4:25 PM CLINICAL INDICATION: Discitis. ?? COMPARISON: MR lumbar spine with contrast 06/27/2024. TECHNIQUE/FINDINGS: ?? L5 is sacralized. There is redemonstration of irregular endplate changes at L4-L5 secondary to discitis/osteomyelitis. Remaining visualized intervertebral disc heights are relatively preserved. There is stable stepwise grade 1 degenerative anterolisthesis of L2-L3, L3-L4, and L4-L5. No interval vertebral collapse is appreciated. Visualized bowel gas pattern is nonspecific. ?? Procedure Note Markus Orellana, DO - 06/29/2024 XR LUMBAR SPINE 2 OR 3 VW DATE: 06/29/2024 4:25 PM CLINICAL INDICATION: Discitis. COMPARISON: MR lumbar spine with contrast 06/27/2024. TECHNIQUE/FINDINGS: L5 is sacralized. There is redemonstration of irregular endplate changes at L4-L5 secondary to discitis/osteomyelitis. Remaining visualized intervertebral disc heights are relatively preserved. There is stable stepwise grade 1 degenerative anterolisthesis of L2-L3, L3-L4, and L4-L5. No interval vertebral collapse is appreciated. Visualized bowel gas pattern is nonspecific. IMPRESSION: 1. Stable irregular endplate changes at L4-L5 consistent with discitis/osteomyelitis. 2. Unchanged grade 1 anterolisthesis of L2-L3, L3-L4, and L4-L5. DICTATION LOCATION: Location 4 [facility] O RDERABLES * PATHOLOGY (06/28/2024 11:21 AM CDT) CASE REPORT Surgical Pathology Report ? Case: [id number] ? Authorizing Provider: ??Simba Song MD ? Collected: ? 06/28/2024 11:21 AM ? Ordering Location: ? [facility] ?Received: ?06/28/2024 02:21 PM ? Orthopaedics ? Pathologist: ? Ye Osborne MD ? Specimen: ?Bone, Vertebral body, L4 ? 4 3:47 PM T [facility] FINAL DIAGNOSIS A. Bone, vertebral body, L4, biopsy - Fragments of viable bone with focally hypercellular marrow with trilineage hematopoiesis - No evidence of malignancy - No evidence of definitive osteomyelitis 4 3:47 PM [facility] S DESCRIPTION Received in one container labeled Keegan West and vertebral body L4 is a 0.6 x 0.3 cm cylindrical core of white-perez bone which is entirely submitted in cassette A1 following decalcification. Cassette(s) decalcified in decal ll at the bench. [facility] 4 3:47 PM [facility] MICROSCOPIC DESCRIPTION The slides are labeled [id number] and Keegan Crandall. This case was seen in consultation with Dr. Janeth Cox who concurs. 4 3:47 PM T [facility] CLINICAL INFORMATION No Dx found. 4 3:47 PM [facility] COMMENT Special stain, immunohistochemical, and/or in situ hybridization results are interpreted with controls that demonstrate appropriate staining reactions. Note on use of immunohistochemistry reagents and in situ hybridization probes: These tests were developed and their performance characteristics determined by [facility], Department of Laboratory Medicine. It has not been cleared or approved by the [place]. Food and Drug Administration. The FDA has determined that such clearance or approval is not necessary. The test is used for clinical purposes. It should not be regarded as investigational or for research. This laboratory is certified to perform high complexity testing. Frozen section/operating room consultation, gross examination and dissection, and case sign out may have been performed in part or completely in the following laboratories: [facility], [place] #[id number] [address] [place] [address] [facility], [place] #[id number] [address] [place] [address] [facility], [place] #[id number] [address] [place] [address] This report was created with the Isoflux voice-activated dictation system. Inherent to this system is the possibility of syntax, grammar, punctuation and other errors that could impact the interpretation of the report. If there are interpretative questions about aspects of this report, please contact the performing pathologist. 3:47 PM CDT [facility] Tissue ENTIRE BONE ORGAN / Unknown Collection / Unknown 06/28/2024 11:21 AM CDT 06/28/2024 2:21 PM CDT Simba Song MD PATHOLOGY/CYTOLOGY O RDERABLES [facility]# [id number] [address] [place] [address] * ANAEROBIC/AEROBIC CULTURE W GRAM STAIN (06/28/2024 11:21 AM CDT) CULTURE No aerobic or anaerobic growth 07/03/2024 10:19 AM CDT [facility] GRAM STAIN No organisms observed 07/03/2024 10:19 AM CDT [facility] GRAM STAIN 1+ (Rare or Occasional) Polymorphonuclear WBC 07/03/2024 10:19 AM CDT [facility] Tissue (Vertebral body) Collection / Unknown 06/28/2024 11:21 AM CDT 06/28/2024 11:47 AM CDT Simba Song MD MICROBIOLOGY - ASH AL ORDERABLES [facility] LABORATORY SERVICES [facility]# [id number] [address] [place] [address] * IR BIOPSY (06/28/2024 11:15 AM CDT) Anatomical Region Laterality Modality X-Ray Angiograph y 06/28/2024 11:1 7 AM CDT Impressions 06/28/2024 3:50 PM CDT IMPRESSION: Fluoroscopic guided biopsy of the L4 vertebral body. DICTATION LOCATION: Location 1, [facility] Narrative 06/28/2024 3:50 PM CDT FLUOROSCOPIC-GUIDED PERCUTANEOUS BIOPSY OF L4 VERTEBRAL BODY DATE: 06/28/2024 11:15 AM HISTORY: 68-year-old female with concern for L4-5 discitis osteomyelitis ?? IR: Simba Song MD MEDICATION: None ANESTHESIA: 1% lidocaine locally and general anesthesia provided by the Department of Anesthesia. FLUOROSCOPY TIME: 4.6 min FLUOROSCOPIC IMAGES: 513 mGy ESTIMATED BLOOD LOSS: 2 mL PROCEDURE: ??After explaining the procedure, benefits and risks (including the risk of bleeding, nerve damage, infection or paralysis) to the patient , informed consent was obtained. General anesthesia was initiated. The patient was then placed in a prone position on the fluoroscopy table. Pre-operative fluoroscopic evaluation of the spine was performed in a biplane fashion. ?? Under direct fluoroscopic guidance, a single osteointroducer needle was advanced into the inferior L4 vertebral body via left transpedicular access. ??A biopsy was performed. Samples were sent for microbiology and pathology testing. The needle was removed and a sterile dressing was applied. The patient tolerated the procedure well. ?? Procedure Note Simba Song MD - 06/28/2024 FLUOROSCOPIC-GUIDED PERCUTANEOUS BIOPSY OF L4 VERTEBRAL BODY DATE: 06/28/2024 11:15 AM HISTORY: 68-year-old female with concern for L4-5 discitis osteomyelitis IR: Simba Song MD MEDICATION: None ANESTHESIA: 1% lidocaine locally and general anesthesia provided by the Department of Anesthesia. FLUOROSCOPY TIME: 4.6 min FLUOROSCOPIC IMAGES: 513 mGy ESTIMATED BLOOD LOSS: 2 mL PROCEDURE: After explaining the procedure, benefits and risks (including the risk of bleeding, nerve damage, infection or paralysis) to the patient , informed consent was obtained. General anesthesia was initiated. The patient was then placed in a prone position on the fluoroscopy table. Pre-operative fluoroscopic evaluation of the spine was performed in a biplane fashion. Under direct fluoroscopic guidance, a single osteointroducer needle was advanced into the inferior L4 vertebral body via left transpedicular access. A biopsy was performed. Samples were sent for microbiology and pathology testing. The needle was removed and a sterile dressing was applied. The patient tolerated the procedure well. IMPRESSION: Fluoroscopic guided biopsy of the L4 vertebral body. DICTATION LOCATION: Location 1, [facility] Indio Oliver MD IR ORDERABLES * TX ANES INSERT ENDOTRACHEAL AIRWAY (06/28/2024 10:35 AM CDT) Narrative Gopal Cedeno MD - 06/28/2024 10:35 AM CDT Gopal Cedeno MD ? 06/28/2024 11:05 AM Airway Date/Time: 06/28/2024 10:35 AM Location: Other [facility] Non OR Location: IR Plan: routine intubation Patient Identity Confirmed by: ??Verbally with patient and armband Airway: not difficult Staffing Performed: Anesthesiologist (/) Authorized by: Gopal Cedeno MD ?? Performed by: Gopal Cedeno MD Indications and Patient Condition: ??Indications for Airway Management: ??Anesthesia ??Sedation Level: general anesthesia ??Preoxygenated: yes ?Patient Position: ??Sniffing ??Mask Difficulty Assessment: ??2 - vent by mask + OA or adjuvant +/- NMBA ??Oral Airway: 100mm ??Plan to extubate at end of case: Yes ?? Final Airway Details: ??Final Airway Type: ??Endotracheal airway ??ETT ??Cuffed: Yes ?Technique Used for Successful ETT Placement: ??Video laryngoscopy ??Devices/Methods Used in Placement: ??Intubating stylet ??Blade Size: ??4 ??Insertion Site: ??Oral ??ETT Size (mm): ??8.0 ??Video Laryngoscopy Devices: GlideScope ??Measured from: ??Teeth ??Tube secured with: ??Tape ??Placement Verified by: auscultation, end tidal CO2 and chest rise ?Cormack-Lehane Classification: ??Grade IIa - partial view of glottis ??Number of Attempts at Approach: ??1 Additional Procedure Information: atraumatic Gopal Cedeno MD PROCEDURE/MINOR SURG ICAL ORDERABLES * BLOOD CULTURE (06/27/2024 2:44 PM CDT) Only the most recent of2 resultswithin the time period is included. BLOOD CULTURE No growth 07/02/2024 3:40 PM CDT [facility] Blood (Hand, right) Venipuncture / Unknown 06/27/2024 2:44 PM CDT 06/27/2024 2:51 PM CDT Daljit Bravo MD MICROBIOLOGY - GENERAL ORDERABLES [facility]# [id number] [address] [place] [address] * PROTIME-INR (06/27/2024 2:32 PM CDT) PROTIME 13.8 12.7 - 15.1 Seconds 06/27/2024 2:53 PM CDT [facility] INR 1.1 0.9 - 1.1 06/27/2024 2:53 PM CDT [facility] Blood Venipuncture / Unknown 06/27/2024 2:32 PM CDT 06/27/2024 2:40 PM CDT Narrative [facility] LABORATORY [facility] - 06/27/2024 2:53 PM CDT INR Therapeutic Range: Adult: ?? 2.0 - 3.0 for pulmonary embolism or prophylaxis against venous ?thrombosis or systemic embolization. 2.0 - 3.0 for patients with tissue heart valves. 2.5 - 3.5 for patients with mechanical heart valves or post ND. Pediatric ??(12 years and under): 1.5 - 3.0 Although the target range in children is not well established, ?INR values of 1.5 - 3.0 are recommended for most patients. ?Higher values have been used in children with prosthetic ?cardiac valves and hereditary clotting disorders. (<3 days) therapeutic ranges have not been established. Kt Bruner MD HEMATOLOGY ORDERABLE S Performing Organization Address [facility] Co de Phone Number [facility]# [id number] [address] [facility] [place] [address] * (ABNORMAL) SEDIMENTATION RATE (06/27/2024 2:31 PM CDT) ESR (SEDIMENTATION RATE) 42(H) <=30 mm/Hr 06/27/2024 2:52 PM CDT [facility] LABORATORY [facility] Blood Venipuncture / Unknown 06/27/2024 2:31 PM CDT 06/27/2024 2:40 PM CDT Daljit Bravo MD HEMATOLOGY O RDERABLES Performing Organization Address [facility] Co de Phone Number [facility]# [id number] [address] [facility] [place] [address] * (ABNORMAL) C-REACTIVE PROTEIN (06/27/2024 2:31 PM CDT) CRP 33.8(H) <5.0 mg/L 06/27/2024 3:15 PM CDT [facility] LABORATORY [facility] Blood Venipuncture / Unknown 06/27/2024 2:31 PM CDT 06/27/2024 2:40 PM CDT Daljit Bravo MD CHEMISTRY OR DERABLES Performing Organization Address [facility]/ZIP Co de Phone Number [facility]# [id number] [address] [place] [address] * PHOSPHORUS (06/27/2024 2:31 PM CDT) PHOSPHORUS 3.5 2.5 - 4.5 mg/dL 06/27/2024 3:15 PM CDT [facility] LABORATORY [facility] Blood Venipuncture / Unknown 06/27/2024 2:31 PM CDT 06/27/2024 2:40 PM CDT Daljit Bravo MD CHEMISTRY OR DERABLES Performing Organization Address [facility] Co de Phone Number [facility] CLCT# [id number] [address] [place] [address] * MAGNESIUM LEVEL (06/27/2024 2:31 PM CDT) MAGNESIUM 2.2 1.6 - 2.4 mg/dL 06/27/2024 3:15 PM CDT [facility] Blood Venipuncture / Unknown 06/27/2024 2:31 PM CDT 06/27/2024 2:40 PM CDT Daljit Bravo MD CHEMISTRY OR DERABLES Performing Organization Address City/[facility]/ZIP Co de Phone Number [facility]# [id number] [address] [place] [address] * (ABNORMAL) COMPREHENSIVE METABOLIC PANEL (06/27/2024 2:31 PM CDT) SODIUM 141 136 - 145 mmol/L 06/27/2024 3:15 PM CDT [facility] LABORATORY [facility] POTASSIUM 3.8 3.5 - 5.0 mmol/L 06/27/2024 3:15 PM T [email or web address] LABORATORY SERVICES - . [facility] CHLORIDE 105 98 - 107 mmol/L 06/27/2024 3:15 PM T [email or web address] LABORATORY SERVICES - . [facility] CO2 28 22 - 29 mmol/L 06/27/2024 3:15 PM T [email or web address] LABORATORY SERVICES - . [facility] CALCIUM 9.5 8.6 - 10.2 mg/dL 06/27/2024 3:15 PM T [email or web address] LABORATORY SERVICES - . [facility] BUN 10 8 - 23 mg/dL 06/27/2024 3:15 PM T [email or web address] LABORATORY SERVICES - . [facility] CREATININE 0.63 0.51 - 0.95 mg/dL 06/27/2024 3:15 PM [employer] LABORATORY SERVICES - . [facility] GLUCOSE 142(H) 74 - 99 mg/dL 06/27/2024 3:15 PM [employer] LABORATORY SERVICES - . [facility] TOTAL PROTEIN 7.2 6.7 - 8.6 g/dL 06/27/2024 3:15 PM [employer] LABORATORY SERVICES - . [facility] ALBUMIN 3.7 3.5 - 5.2 g/dL 06/27/2024 3:15 PM [email or web address] LABORATORY SERVICES - . [facility] BILIRUBIN TOTAL 0.4 0.2 - 1.1 mg/dL 06/27/2024 3:15 PM [facility] [place]NOTE 2] [email or web address] LABORATORY SERVICES - . [facility] ALKALINE PHOSPHATASE 157(H) 35 - 104 U/L 06/27/2024 3:15 PM [employer] LABORATORY SERVICES - [facility] AST 18 <33 U/L 06/27/2024 3:15 PM [employer] LABORATORY SERVICES - . [facility] ALT 10 <34 U/L 06/27/2024 3:15 PM [employer] LABORATORY SERVICES - . [facility] GFR >60 >=60 mL/min/1.7 3 sq meter 06/27/2024 3:15 PM [employer] LABORATORY SERVICES - [facility] Comment:eGFR calculated with 2020 CKD-EPI equation. Vegetarian diet, extremely high or low muscle mass, and may affect results. Cystatin C with Glomerular Filtration Rate is a suitable alternative for these patients. ANION GAP 8 8 - 16 mmol/L 06/27/2024 3:15 PM CDT [facility] Blood Venipuncture / Unknown 06/27/2024 2:31 PM CDT 06/27/2024 2:40 PM CDT Narrative [facility] - 06/27/2024 3:15 PM CDT Samples containing indocyanine green cause interferences on Total and/or Direct Bilirubin and must not be measured. Kt Bruner MD CHEMISTRY ORDERABLES Performing Organization Address [facility]/State/ZIP Co de Phone Number [facility]# [id number] [address] [facility] [place] [address] * EKG 12-LEAD (06/27/2024 7:04 AM CDT) 06/27/2024 7:04 AM CDT [employer] - 06/27/2024 8:12 AM CDT ? [facility] ? [address] [facility] [place] [address] ? Test Date: ?2024-06-27 Pat Name: ? KEEGAN CRANDALL ? Department: ?? 100 ?Room: ? 2372 1 Gender: ? Female ? Drainage Inspector: ?? 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 Requested By: AISSATOU Marino Order Number: [id number] ? Reading MD: ?? Neal Arango ? Measurements Intervals ?[place] ? Rate: ? 77 ? P: ?55 TX: ? 171 ?QRS: ?-11 QRSD: ? 92 ? T: ?33 QT: ? 380 ? QTc: ?430 ? Interpretive Statements SINUS RHYTHM Electronically Signed On 06-27-2024 8:12:59 CDT by Neal Arango Procedure Note Neal Arango MD - 06/27/[address] [facility] [address] , [place] [address] Test Date: 2024-06-27 Pat Name: KEEGAN CRANDALL Department: 100 Room: 2372 1 Gender: Female Drainage Inspector: Geronimo : 1955 Requested By: AISSATOU Marino Order Number: [id number] Reading MD: Neal Arango Measurements Intervals [place] Rate: 77 P: 55 TX: 171 QRS: -11 QRSD: 92 T: 33 QT: 380 QTc: 430 Interpretive Statements SINUS RHYTHM Electronically Signed On 06-27-2024 8:12:59 CDT by Neal Arango Daljit Bravo MD ECG ORDERABL ES INTERFACE SYSTEM Refer to clinic/hospital department * MRI LUMBAR W WO CONTRAST (06/27/2024 3:43 AM CDT) Anatomical Region Laterality Modality Spine Magnetic Resonan ce 06/27/2024 3:43 AM CDT Impressions 06/27/2024 8:19 AM CDT IMPRESSION: 1. ??Transitional vertebral anatomy noted as described. 2. ??Fluid signal and enhancement at the L4-5 disc space with associated endplate irregularity as described. Appearance is compatible with reported clinical concern of discitis/osteomyelitis. 3. ??Enhancement in the associated paraspinal soft tissues. Ventral epidural thickening and enhancement without associated peripherally enhancing epidural fluid collection. Given reported clinical concern, findings likely reflect heterogeneously enhancing phlegmon. 4. ??Multilevel degenerative disease in the lumbar spine with significant spinal canal and neural foraminal narrowing noted as described. ?? DICTATION LOCATION: [address] 06/27/2024 8:19 AM CDT EXAM: MRI LUMBAR W WO CONTRAST DATE: 06/27/2024 3:43 AM CLINICAL HISTORY: Back pain. Low back pain. Suspected infection. TECHNIQUE: Multiple sagittal and axial MR sequences were obtained of the lumbar spine without and with the use of IV contrast. IV CONTRAST: ??20 mL ProHance COMPARISON: None. FINDINGS: Transitional vertebral anatomy. For the purposes of this dictation. Hypoplastic 12th ribs are noted, the first nonrib-bearing vertebral body is L1, the last fully formed disc spaces L4-5, there is partial sacralization of L5 and a prominent rudimentary disc space at L5-S1. There is preservation of the normal lumbar lordosis. 2 mm anterolisthesis L2-3. There are no wedge-shaped compression deformities. ?? Fluid signal and enhancement noted at the L4-5 disc space. Associated enhancing T1 hypointense marrow edema at the L4-L5 endplates. This is worse at the inferior endplate of L4 where there is suspected endplate irregularity. Enhancement in the associated paraspinal soft tissues. Adjacent ventral epidural enhancement and thickening. No peripherally enhancing epidural fluid collection is seen. The conus is normal in appearance at the L1-2 level. There is degenerative loss of disc space height and signal. Small disc bulges are noted in the lumbar spine. The paraspinous soft tissues are unremarkable. T12-L1: Small disc bulge. There is moderate facet arthropathy. There is mild neural foraminal narrowing. There is no spinal canal stenosis. L1-L2: Small disc bulge. There is moderate facet arthropathy. There is mild neural foraminal narrowing. There is mild spinal canal stenosis. L2-L3: Small disc bulge. There is ligamentum flavum thickening and severe facet arthropathy. There is mild to moderate neural foraminal narrowing. There is moderate spinal canal stenosis. Disc bulge abuts traversing L3 nerve roots at the level of the disc. L3-L4: Small disc bulge. There is ligamentum flavum thickening and severe facet arthropathy. There is moderate front/back neural foraminal narrowing. There is moderate spinal canal stenosis. Disc bulge abuts traversing L4 nerve roots at the level of the disc. L4-L5: Disc and endplate abnormality as discussed above. Small disc bulge. There is ligamentum flavum thickening and severe facet arthropathy. There is no neural foraminal narrowing. There is moderate spinal canal stenosis. Asymmetric disc bulge impinges upon the traversing L5 nerve roots on the right and abuts traversing L5 nerve roots on the left. L5-S1: Prominent rudimentary disc space. There is no facet arthropathy. There is no neural foraminal narrowing. There is no spinal canal stenosis. INCIDENTAL FINDINGS: ??None. Procedure Note Mayank Pappas MD - 06/27/2024 EXAM: MRI LUMBAR W WO CONTRAST DATE: 06/27/2024 3:43 AM CLINICAL HISTORY: Back pain. Low back pain. Suspected infection. TECHNIQUE: Multiple sagittal and axial MR sequences were obtained of the lumbar spine without and with the use of IV contrast. IV CONTRAST: 20 mL ProHance COMPARISON: None. FINDINGS: Transitional vertebral anatomy. For the purposes of this dictation. Hypoplastic 12th ribs are noted, the first nonrib-bearing vertebral body is L1, the last fully formed disc spaces L4-5, there is partial sacralization of L5 and a prominent rudimentary disc space at L5-S1. There is preservation of the normal lumbar lordosis. 2 mm anterolisthesis L2-3. There are no wedge-shaped compression deformities. Fluid signal and enhancement noted at the L4-5 disc space. Associated enhancing T1 hypointense marrow edema at the L4-L5 endplates. This is worse at the inferior endplate of L4 where there is suspected endplate irregularity. Enhancement in the associated paraspinal soft tissues. Adjacent ventral epidural enhancement and thickening. No peripherally enhancing epidural fluid collection is seen. The conus is normal in appearance at the L1-2 level. There is degenerative loss of disc space height and signal. Small disc bulges are noted in the lumbar spine. The paraspinous soft tissues are unremarkable. T12-L1: Small disc bulge. There is moderate facet arthropathy. There is mild neural foraminal narrowing. There is no spinal canal stenosis. L1-L2: Small disc bulge. There is moderate facet arthropathy. There is mild neural foraminal narrowing. There is mild spinal canal stenosis. L2-L3: Small disc bulge. There is ligamentum flavum thickening and severe facet arthropathy. There is mild to moderate neural foraminal narrowing. There is moderate spinal canal stenosis. Disc bulge abuts traversing L3 nerve roots at the level of the disc. L3-L4: Small disc bulge. There is ligamentum flavum thickening and severe facet arthropathy. There is moderate front/back neural foraminal narrowing. There is moderate spinal canal stenosis. Disc bulge abuts traversing L4 nerve roots at the level of the disc. L4-L5: Disc and endplate abnormality as discussed above. Small disc bulge. There is ligamentum flavum thickening and severe facet arthropathy. There is no neural foraminal narrowing. There is moderate spinal canal stenosis. Asymmetric disc bulge impinges upon the traversing L5 nerve roots on the right and abuts traversing L5 nerve roots on the left. L5-S1: Prominent rudimentary disc space. There is no facet arthropathy. There is no neural foraminal narrowing. There is no spinal canal stenosis. INCIDENTAL FINDINGS: None. IMPRESSION: 1. Transitional vertebral anatomy noted as described. 2. Fluid signal and enhancement at the L4-5 disc space with associated endplate irregularity as described. Appearance is compatible with reported clinical concern of discitis/osteomyelitis. 3. Enhancement in the associated paraspinal soft tissues. Ventral epidural thickening and enhancement without associated peripherally enhancing epidural fluid collection. Given reported clinical concern, findings likely reflect heterogeneously enhancing phlegmon. 4. Multilevel degenerative disease in the lumbar spine with significant spinal canal and neural foraminal narrowing noted as described. DICTATION LOCATION: Location - [facility] Daljit Bravo MD MR ORDERABLE S from Last 3 Months Advance Directives For more information, please contact: [phone] * Full Code (Latest Code Status on File) Date Activated Date Inactivated Comments 06/28/2024 11:06 AM 07/10/2024 3:01 PM * Full Code Date Activated Date Inactivated Comments 06/27/2024 6:03 AM 06/28/2024 11:06 AM * Default Full Code - Needs Discussion Date Activated Date Inactivated Comments 06/27/2024 1:09 AM 06/27/2024 6:03 AM Care Teams Chemistry Technologist Relationship Specialty Start Date End Date Tracy Olivares MD [address] [place] [address] PCP - General Internal Medicine 07/02/24
--- OUTSIDE RECORDS SUMMARY | 2024-09-07 05:36 | XMS_ITS | Encounter Summary ---
Author Organization [facility] Address [address] [place] [address] Care Team Providers Care Coat Hanger Shaper Machine Operator Name Role Phone Tracy Olivares MD Primary Care Provider [phone] Encounter Details Date Type Department Care Team (Late st Contact Info) Description 08/21/2024 External Device Data [facility] ABSTRACTION Provider, Abstract NO ADDRESS ON FILE Social History Tobacco Use Types Packs/Day Years [...] st Contact Info) Description 10/04/2024 10:00 AM DIESEL LOCOMOTIVE ENGINEER Office Visit [facility] Neurosurgery - Medical [place] [address] [facility] [address] [place] [address] Harris Fischer MD [address] [facility] [address] [place] [address] documented as of this encounter Visit Diagnoses Not on filedocumented in this encounter Care Teams Coat Hanger Shaper Machine Operator Relationship Specialty Start Date End Date Tracy Olivares MD [address] [place] [address] PCP - General Internal Medicine 07/02/24 documented as of this encounter
--- OUTSIDE RECORDS SUMMARY | 2024-09-07 05:36 | XMS_ITS | Encounter Summary ---
Author Organization [facility] Address [address] [place] [address] Care Team Providers Care Meat Cooler Name Role Phone Tracy Olivares MD Primary Care Provider [phone] Reason for Visit * Reason Onset Date Comments Results 08/13/2024 Encounter Details Date Type Department Care Team (Late st Contact Info) Description 08/13/2024 Telephone [facility] INFECTIOUS DISEASE [place] B [address] [place] [place] [address] Indio Oliver MD [address] [place] [address] Results Social History Tobacco Use Types Packs/Day [...] Telephone Encounter - Stacy Abarca LPN - 08/13/2024 10:22 AM CST Images from the original note were not included. Spoke to patient, below message given. Patient verbally understood, no further questions at this time from patient. Spoke to Roger at [facility], IVAB ( Cefepime) extended out an additional two weeks per below message by Dr. Oliver based on CRP level. Orders read back correctly without concern. Indio Oliver MD Gowen, Amanda L, LPN Caller: Unspecified (Today, 9:59 AM) The Cefepime does not affect the hearing. As for indigestion, sometimes that can be related to antibiotics. I suggest she takes probiotics, if not already. CRP remains mildly elevated. May be a good idea to continue antibiotics for 2 more weeks. LIANCE SPEC * Telephone Encounter - Stacy Abarca LPN - 08/13/2024 9:59 AM CST Patient called to report a disruption in her hearing since starting IVAB. She reports an echo and full feeling. She was not sure this could be related to the IVAB or if it was just a coincidence. Patient also reports indigestion. She would also like to make sure her labs look good since her IVAB stop date is set for today. Labs scanned under media. Please advise. LIANCE SPEC documented in this encounter Plan of Treatment Upcoming Encounters Date Type Department Care Team (Late st Contact Info) Description 10/04/2024 10:00 AM COMPLIANCE SPEC Office Visit [facility] Neurosurgery - [facility] [address] [facility] [address] [place] [address] Harris Fischer MD [address] [facility] [address] [place] [address] documented as of this encounter Visit Diagnoses Not on filedocumented in this encounter Care Teams Meat Cooler Relationship Specialty Start Date End Date Tracy Olivares MD [address] [place] [address] PCP - General Internal Medicine 07/02/24 documented as of this encounter
--- OUTSIDE RECORDS SUMMARY | 2024-09-07 05:36 | XMS_ITS | Encounter Summary ---
Author Organization [facility] Address [address] [place] [address] Care Team Providers Care Pulpwood Dealer Name Role Phone Tracy Olivares MD Primary Care Provider [phone] Encounter Details Date Type Department Care Team (Late st Contact Info) Description 08/27/2024 Abstract [facility] INFECTIOUS DISEASE [place] B [address] [place] [address] [place] [address] Indio Oliver MD [address] [place] [address] Social [...] of this encounter Progress Notes * Mary Britt RMA - 08/27/2024 9:49 AM CST Outside labs collected 08/24/24 HI DEVELOPER documented in this encounter Plan of Treatment Upcoming Encounters Date Type Department Care Team (Late st Contact Info) Description 10/04/2024 10:00 AM DELPHI DEVELOPER Office Visit [facility] Neurosurgery - Medical [place] [address] [facility] [address] [place] [address] Harris Fischer MD [address] [facility] [address] [place] [address] documented as of this encounter Visit Diagnoses Not on filedocumented in this encounter Care Teams Pulpwood Dealer Relationship Specialty Start Date End Date Tracy Olivares MD [address] [facility] [address] [place] [address] PCP - General Internal Medicine 07/02/24 documented as of this encounter
--- OUTSIDE RECORDS SUMMARY | 2024-09-07 05:36 | XMS_ITS | Encounter Summary ---
Author Organization [facility] Address [address] [place] [address] Care Team Providers Care Tile Presser Name Role Phone Tracy Olivares MD Primary Care Provider [phone] Reason for Visit * Reason Onset Date Comments Question 08/13/2024 Encounter Details Date Type Department Care Team (Late st Contact Info) Description 08/13/2024 Telephone [facility] Neurosurgery - Medical [place] [address] [facility] [address] [facility] [place] [address] Harris Fischer MD [address] [facility] [address] [place] [address] Question Social History Tobacco Use Types Packs/Day [...] encounter Miscellaneous Notes * Telephone Encounter - Mary Johnson RN - 08/13/2024 9:54 AM CST Spoke to Keegan let her know the abx is ordered through Dr. Oliver and gave the office number PEELING MACHINE OPERATOR * Telephone Encounter - Romulo Saenz PA - 08/13/2024 9:52 AM SKIN PEELING MACHINE OPERATOR Called, no answer. LVM PEELING MACHINE OPERATOR * Telephone Encounter - Jennifer Green - 08/13/2024 9:19 AM CST Pt called stating she was given antibiotics while in the hospital and had a blood test done last Wednesday 08/08. Pt would like to know who is supposed to read those results to her. I informed the ptI did not see anything about us ordering this for her, but she insisted a message be put in anyway's because she's not sure who is able to read those results to her. Please advise and call pt back. PEELING MACHINE OPERATOR documented in this encounter Plan of Treatment Upcoming Encounters Date Type Department Care Team (Late st Contact Info) Description 10/04/2024 10:00 AM SKIN PEELING MACHINE OPERATOR Office Visit [facility] Neurosurgery - [facility] [address] [facility] [address] [place] [address] Harris Fischer MD [address] [facility] [address] [place] [address] documented as of this encounter Visit Diagnoses Not on filedocumented in this encounter Care Teams Tile Presser Relationship Specialty Start Date End Date Tracy Olivares MD [address] [place] [address] PCP - General Internal Medicine 07/02/24 documented as of this encounter
--- OUTSIDE RECORDS SUMMARY | 2024-09-07 05:36 | XMS_ITS | Encounter Summary ---
Author Organization [facility] Address [address] [place] [address] Care Team Providers Care Speedboat Driver Name Role Phone Tracy Olivares MD Primary Care Provider [phone] Encounter Details Date Type Department Care Team (Latest Contact Info) Description 07/10/2024 10:00 AM CDT - 07/10/2024 11:59 PM CDT Hospital Encounter [facility] Emergency Medical Services [address] [address] Dylan Jackson MD [address] [place] [address] Ambulance, [facility] Discharge Disposition: Intermediate Care Facility Social History Tobacco Use Types Packs/Day Years [...] this encounter Medications at Time of Discharge Medication Sig Dispensed Refills Start Date End Date famotidine (PEPCID) 20 mg tablet Take one tablet two times daily as needed for heart burn. 03/20/2024 cetirizine (ZyrTEC) 5 mg tablet Take 1 Tablet (5 mg) by mouth daily. 07/03/2024 melatonin 3 mg Tablet Take 1 Tablet (3 mg) by mouth nightly as needed for Insomnia. 07/02/2024 polyethylene glycol (MIRALAX) 17 gram Powder in Packet Take 1 Packet (17 Grams) by mouth 1 time daily as needed for Constipation. 07/02/2024 sennosides-docusate sodium (SENNA-S) 8.6-50 mg tablet Take 1 Tablet by mouth 2 times daily as needed for Constipation. 07/02/2024 pantoprazole (PROTONIX) 40 mg Tablet, Delayed Release (E.C.) Take 40 mg by mouth daily. Cholecalciferol, Vitamin D3, 50 mcg (2,000 unit) [...] by mouth daily. 30 Tablet 07/10/2024 08/09/2024 fluticasone-umeclidin ium-vilanterol (TRELEGY ELLIPTA) 200-62.5-25 mcg Disk with Device Take 1 Puff by inhalation daily. 60 Each 07/10/2024 08/09/2024 gabapentin (NEURONTIN) 300 mg capsule Take 1 Capsule (300 mg) by mouth 2 times daily. 60 Capsule 07/10/2024 08/09/2024 HYDROcodone-acetamino phen (NORCO) 5-325 mg tabletIndications:Dis citis of lumbar region Take 1 Tablet by mouth every 8 hours as needed for Pain. Max Daily Amount: 3 Tablets 10 Tablet 07/10/2024 07/14/2024 cyclobenzaprine (FLEXERIL) 10 mg tablet Take 1 Tablet (10 mg) by mouth 3 times daily as needed for Spasm. 20 Tablet 07/10/2024 07/17/2024 documented as of this encounter Plan of Treatment Upcoming Encounters Date Type Department Care Team (Late st Contact Info) Description 10/04/2024 10:00 AM DELIVERY RN Office Visit [facility] Neurosurgery - [facility] [address] [facility] [address] [place] [address] Harris Fischer MD [address] [facility] [address] [place] [address] documented as of this encounter Visit Diagnoses Not on filedocumented in this encounter Care Teams Speedboat Driver Relationship Specialty Start Date End Date Tracy Olivares MD [address] [place] [address] PCP - General Internal Medicine 07/02/24 documented as of this encounter
--- OUTSIDE RECORDS SUMMARY | 2024-09-07 05:36 | XMS_ITS | Encounter Summary ---
Author Organization [facility] Address [address] [place] [address] Care Team Providers Care Heater Mechanic Name Role Phone Tracy Olivares MD Primary Care Provider [phone] Reason for Visit * Reason Onset Date Comments Critical lab value 08/29/2024 Encounter Details Date Type Department Care Team (Late st Contact Info) Description 08/29/2024 Telephone [facility] INFECTIOUS DISEASE [place] B [address] [place] [address] Indio Oliver MD [address] [place] [address] Critical lab value Social History Tobacco Use Types Packs/Day Years [...] Telephone Encounter - Stacy Abarca LPN - 08/29/2024 10:38 AM CST Images from the original note were not included. Patient is currently at the ER ([facility]). She was advised by another physician as well as us to been seen due to potassium level. Indio Oliver MD Gowen, Amanda L, LPN Please ask patient to go to nearest ER as her potassium level is critical and it needs to be addressed urgently. Thanks SHOVELER documented in this encounter Plan of Treatment Upcoming Encounters Date Type Department Care Team (Late st Contact Info) Description 10/04/2024 10:00 AM COAL SHOVELER Office Visit [facility] Neurosurgery - [facility] [address] [facility] [address] [place] [address] Harris Fischer MD [address] [facility] [address] [address] documented as of this encounter Visit Diagnoses Not on filedocumented in this encounter Care Teams Heater Mechanic Relationship Specialty Start Date End Date Tracy Olivares MD [address] [place] [address] PCP - General Internal Medicine 07/02/24 documented as of this encounter
--- OUTSIDE RECORDS SUMMARY | 2024-09-07 05:36 | XMS_ITS | Encounter Summary ---
Author Organization [facility] Address [address] [place] [address] Care Team Providers Care Hat Maker Name Role Phone Tracy Olivares MD Primary Care Provider [phone] Encounter Details Date Type Department Care Team (Late st Contact Info) Description 07/31/2024 External Device Data STL ABSTRACTION Provider, [...] st Contact Info) Description 10/04/2024 10:00 AM HYDRO MECHANIC Office Visit [facility] Neurosurgery - Medical [place] [address] [facility] [address] [place] [address] Harris Fischer MD [address] [facility] [address] [place] [address] documented as of this encounter Visit Diagnoses Not on filedocumented in this encounter Care Teams Hat Maker Relationship Specialty Start Date End Date Tracy Olivares MD [address] [place] [address] PCP - General Internal Medicine 07/02/24 documented as of this encounter
--- OUTSIDE RECORDS SUMMARY | 2024-09-07 05:36 | XMS_ITS | Encounter Summary ---
Author Organization [facility] Address [address] [place] [address] Care Team Providers Care Grain Unloader Machine Name Role Phone Tracy Olivares MD Primary Care Provider Encounter Details Date Type Department Care Team (Late st Contact Info) Description 08/15/2024 Abstract [facility] INFECTIOUS DISEASE [place] [address] [place] [address] Indio Oliver MD [address] [facility] [address] [place] [address] Social History Tobacco Use Types [...] st Contact Info) Description 10/04/2024 10:00 AM TROLLEY WORKER Office Visit [facility] Neurosurgery - Medical [place] [address] [facility] [address] [place] [address] Harris Fischer MD [address] [facility] [address] [place] [address] documented as of this encounter Visit Diagnoses Not on filedocumented in this encounter Care Teams Grain Unloader Machine Relationship Specialty Start Date End Date Tracy Olivares MD [address] [place] [address] PCP - General Internal Medicine 07/02/24 documented as of this encounter
--- OUTSIDE RECORDS SUMMARY | 2024-09-07 05:36 | XMS_ITS | Encounter Summary ---
Author Organization [facility] Address [address] [place] [address] Care Team Providers Care Pie Maker Machine Name Role Phone Tracy Olivares MD Primary Care Provider [phone] Encounter Details Date Type Department Care Team (Late st Contact Info) Description 08/15/2024 Abstract [facility] Neurosurgery - Medical [place] [address] [facility] [address] [place] [address] Harris Fischer MD [address] [facility] [address] [place] [address] Social History Tobacco Use Types Packs/Day Years [...] st Contact Info) Description 10/04/2024 10:00 AM LOCAL SALES MANAGER Office Visit [facility] Neurosurgery - Medical [place] [address] [facility] [address] [place] [address] Harris Fischer MD [address] [facility] [address] [place] [address] documented as of this encounter Visit Diagnoses Not on filedocumented in this encounter Care Teams Pie Maker Machine Relationship Specialty Start Date End Date Tracy Olivares MD [address] [place] [address] PCP - General Internal Medicine 07/02/24 documented as of this encounter
--- OUTSIDE RECORDS SUMMARY | 2024-09-07 05:36 | XMS_ITS | Encounter Summary ---
Author Organization [facility] Address [address] [place] [address] Care Team Providers Care C.O.D. Biller Name Role Phone Tracy Olivares MD Primary Care Provider [phone] Reason for Visit * Auth/Cert (Routine) Specialty Diagnoses / Procedures Referred By Heidi iverson Referred To Contact Orthopedic Surgery Diagnoses lumbar discitis Aissatou Lanza, [address] [place] [address] [facility] [address] [place] [address] Referral ID Status Reason Start Date Expiration Date Visits Re quested Visits Authorized [id number] 1 1 Encounter Details Date Type Department Care Team (Latest Contact Info) Description 06/27/2024 12:46 AM CDT - 07/10/2024 12:43 PM CDT Hospital Encounter [facility] [address] [place] [address] Aissatou Lanza, DO [address] [place] [address] Daljit Bravo MD [address] [place] [address] [place] [address] Mia Fowler MD [address] [facility] [id number] Sydnie Sequeria MD [address] [address] Dylan Jackson MD [address] [place] [address] Discitis of lumbar region Discharge Disposition: Discharged/transferr ed to a fpc facility (SNF) with Medicare certificatio Social History Tobacco Use Types Packs/Day Years [...] Mass Index 43.48 06/27/2024 1:21 AM CDT documented in this encounter Discharge Summaries * Dylan Jackson MD - 07/10/2024 11:22 AM CDT [facility] Discharge Summary Keegan Amaya 68 y.o. female 1955 CSN: [id number] Date of Admission: 06/27/2024 Date of Discharge: See Date of Service Discharging Physician: Dylan Jackson MD LOS: 13 days PCP: Tracy Olivares MD Activity: Follow restrictions in AVS. TLSO brace [...] neuropathy: -Continue gabapentin # HTN: - hold sales director losartan 100mg, hydrochlorothiazide 12.5mg. BP has been stable < 140/90. If BP more than 140/90 consistently, consider restarting stepwise at postacute care Nutritional status and in-house recommendations: Current Diet and/or Nutritional Supplementation ordered: DIET GENERAL Effective Now Admitting Dx: Discitis of lumbar region Discharge Diagnoses: Active Hospital Problems Diagnosis FAISAL (obstructive sleep apnea) Discitis of lumbar region HLD (hyperlipidemia) Asthma GERD (gastroesophageal reflux disease) Peripheral neuropathy Osteomyelitis of lumbar spine Benign hypertension Epidural abscess Resolved Hospital Problems No resolved problems to display. Follow-up: Tracy Olivares MD in 5 days. Labs Needing Follow Up: Weekly CBC/Cr/CRP Discharge medications and new prescriptions: Medication List START taking these medications cetirizine 5 mg tablet Commonly known as: ZyrTEC Take 1 Tablet (5 mg) by mouth daily. Signed by: Dr. Rani Fowler Refills: 0 cyclobenzaprine 10 mg tablet Commonly known as: FLEXERIL Take 1 Tablet (10 mg) by mouth 3 times daily as needed for Spasm. Signed by: Dr. Christine Jackson Quantity: 20 Tablet Refills: 0 HYDROcodone-acetaminophen 5-325 mg tablet Commonly known as: NORCO Take 1 Tablet by mouth every 8 hours as needed for Pain. Max Daily Amount: 3 Tablets Signed by: Dr. Christine Jackson Quantity: 10 Tablet Refills: 0 Replaces: HYDROcodone-acetaminophen 7.5-325 mg Tablet melatonin 3 mg Tablet Take 1 Tablet (3 mg) by mouth nightly as needed for Insomnia. Signed by: Dr. Rani Fowler Refills: 0 polyethylene glycol 17 gram Powder in Packet Commonly known as: MIRALAX Take 1 Packet (17 Grams) by mouth 1 time daily as needed for Constipation. Signed by: Dr. Rani Fowler Refills: 0 sennosides-docusate sodium 8.6-50 mg tablet Commonly known as: SENNA-S Take 1 Tablet by mouth 2 times daily as needed for Constipation. Signed by: Dr. Rani Fowler Refills: 0 CONTINUE taking these medications albuterol sulfate 90 mcg/Actuation inhaler Take 2 Puffs by inhalation every 6 hours as needed for Shortness of Breath. Signed by: Dr. Christine Jackson Quantity: 8.5 Gram Refills: 0 aspirin 81 mg Tablet, Delayed Release (E.C.) Commonly known as: ECOTRIN EC Take 1 Tablet (81 mg) by mouth daily. Signed by: Dr. Christine Jackson Quantity: 30 Tablet Refills: 0 atorvastatin 20 mg tablet Commonly known as: LIPITOR Take 1 Tablet (20 mg) by mouth daily. Signed by: Dr. Christine Jackson Quantity: 30 Tablet Refills: 0 Cholecalciferol (Vitamin D3) 50 mcg (2,000 unit) Capsule Take 2,000 Units by mouth daily. Signed by: Dr. Christine Jackson Quantity: 30 Capsule Refills: 0 empagliflozin 25 mg tablet Commonly known as: JARDIANCE Take 1 Tablet (25 mg) by mouth daily in the morning. Signed by: Dr. Christine Jackson Quantity: 30 Tablet Refills: 0 famotidine 20 mg tablet Commonly known as: PEPCID Take one tablet two times daily as needed for heart burn. Refills: 0 lelfevhfwtk-hotynvuxzptq-qiydvuzeos 200-62.5-25 mcg Disk with Device Commonly known as: TRELEGY ELLIPTA Take 1 Puff by inhalation daily. Signed by: Dr. Christine Jackson Quantity: 60 Each Refills: 0 gabapentin 300 mg capsule Commonly known as: NEURONTIN Take 1 Capsule (300 mg) by mouth 2 times daily. Signed by: Dr. Christine Jackson Quantity: 60 Capsule Refills: 0 pantoprazole 40 mg Tablet, Delayed Release (E.C.) Commonly known as: PROTONIX Take 40 mg by mouth daily. Refills: 0 STOP taking these medications esomeprazole 20 mg Capsule, Delayed Release(E.C.) Commonly known as: NexIUM HYDROcodone-acetaminophen 7.5-325 mg Tablet Commonly known as: NORCO Replaced by: HYDROcodone-acetaminophen 5-325 mg tablet losartan-hydroCHLOROthiazide 100-12.5 mg tablet Commonly known as: HYZAAR Where to Get Your Medications These medications were sent to [address] [address] albuterol sulfate 90 mcg/Actuation inhaler aspirin 81 mg Tablet, Delayed Release (E.C.) atorvastatin 20 mg tablet Cholecalciferol (Vitamin D3) 50 mcg (2,000 unit) Capsule cyclobenzaprine 10 mg tablet empagliflozin 25 mg tablet drjniswhxhl-iczbjcrwvexl-gdepylamgr 200-62.5-25 mcg Disk with Device gabapentin 300 mg capsule HYDROcodone-acetaminophen 5-325 mg tablet Please take the prescriptions given to you during your stay and have them filled at any pharmacy. You don't need a prescription for these medications cetirizine 5 mg tablet melatonin 3 mg Tablet polyethylene glycol 17 gram Powder in Packet sennosides-docusate sodium 8.6-50 mg tablet Consultants: IP CONSULT TO INFECTIOUS DISEASES IP CONSULT TO HOME CARE MANAGER IP CONSULT TO IV TEAM IP CONSULT TO IV TEAM IP CONSULT TO HOME INFUSION IP CONSULT TO NEUROSURGERY Significant Diagnostic Studies This Admission: MRI 06/27/2024 1. Transitional vertebral anatomy noted as described. [...] and neural foraminal narrowing noted as described. Discharge Lab Data: Lab Results Component Value Date WBC 7.0 07/07/2024 HGB 10.3 (L) 07/07/2024 HCT 33.4 (L) 07/07/2024 PLT 215 07/07/2024 NA 142 07/07/2024 CL 105 07/07/2024 K 4.1 07/07/2024 CO2 30 (H) 07/07/2024 BUN 15 07/07/2024 CREAT 0.67 07/07/2024 GLUCOSE 111 (H) 07/07/2024 INR 1.1 06/27/2024 AST 18 06/27/2024 ALT 10 06/27/2024 CRP 33.8 (H) 06/27/2024 Discharge Exam: Denies chest pain, dyspnea, nausea, vomiting, fevers, chills. Back pain controlled on current regimen BP 134/71 (BP Location: Right arm, Patient Position (BP): Supine) Pulse 81 Temp 98.6 ??F (37 ??C) (Oral) Resp 18 Ht 5' 6 (1.676 m) Wt 122.2 kg (269 lb 6.4 oz) SpO2 100% BMI 43.48 kg/m?? Exam: Gen alert, cooperative, no distress, appears stated age Lungs clear to auscultation bilaterally Heart regular rate and rhythm, S1, S2 normal, no murmur, click, rub or gallop Abdomen soft, non-tender. Bowel sounds normal. No masses, No organomegaly Extremities extremities normal, atraumatic, no cyanosis or edema Discharge Condition: stable More than 35 minutes were spent in this discharge activity. Dylan Jackson MD documented in this encounter Discharge Instructions * Discharge Instructions* Dylan Jackson MD - 06/30/2024 1:11 PM CDT Your discharging physician is Dylan Jackson MD and may be reached at for any questions or concerns until you see your doctor. FOLLOW-UP Follow up with Tracy Olivares MD in 5 days. Follow up with neurosurgery, infectious disease outpatient Prescriptions given? SNF Continue cefepime IV for 6 weeks (through 08/09/24 at least) Heart Patients: Weigh yourself everyday at the same time, with the same amount of clothing and after you have emptied your bladder. Keep a log of your daily weights and bring them with you to your physician appointments. Call your physician (*) if you have a weight gain of 3 pounds in one day (or 5pounds in 2 or more days) or (*) if you have increased shortness of breath or (*) if you have swelling in your feet, belly or legs. <<<Call 911 or go to the nearest emergency room if you have increased shortness of breath or chest pain or discomfort that is not relieved by nitroglycerin. ACTIVITY Your activity level is: increase activity as tolerated, no smoking, and follow neurosurgery restrictions as listed below . DIET Your diet is: DIET GENERAL Effective Now Neurosurgery Follow-up for Non-operative Spinal Fracture Treated with Bracing You were seen by Harris Fischer MD, PhD during your hospitalization for osteomyelitis. You willneed follow-up in our [facility] Neurosurgery Physician Chemical Inspector clinic in 3 months. >> Call the Neurosurgery Office at within 1-3 business days after discharge toschedule your appointment << X-rays of your spine in the brace will be completed 30-60 minutes prior to your office appointment Notify the office that you need X-rays when scheduling your appointment You have been given a brace to treat your spinal fracture - it should be worn exactly as instructed: Brace to be worn at all times when head of bed >30 degrees, when upright, out of bed, in chair or walking >> You should expect to wear your brace for 3-6 months to allow time for fracture healing << *For at least the next 6 months you must avoid: NSAIDs - Non-steroidal Anti-inflammatory Drugs, which include: Aspirin, Ibuprofen, Advil, Motrin, Naproxen, Aleve, Meloxicam, Diclofenac, etc. Steroids - any pills, eye drops, injections, topical creams that contain: Prednisone, Methylprednisolone, Cortisone, Hydrocortisone, Triamcinolone, etc. Nicotine - no source of nicotine is acceptable! No cigarettes, no cigars, no pipes, no vapes, no gum, no patches - nothing! Bisphosphonates - the most common medications for low bone density Alendronate, Fosamax, Zometa, Reclast, Boniva, Didronel, etc. >>All of these drugs slow or completely prevent bone healing, ultimately leading to progressive spinal deformity, chronic pain, and possibly permanent disability. Your fracture will not heal well if you continue to use these drugs and they should be strictly avoided for at least 6 months after your fracture<< *For at least the next 6 months you should assure: For pain control needs you primarily use Tylenol Strictly follow the instructions on the bottle for safety Avoid if you have liver disfunction Tylenol does not impair bone healing Tylenol is non-addictive Optimized daily dietary calcium intake Absorption of food sources of calcium is far better than pills Though you may need pills or supplementation, eating calcium-containing foods like dairy and leafy greens works best! Around 20 minutes of direct sunshine exposure to your skin every day Making your own Vitamin D is better than the pills but this requires daily skin exposure to the sun Small daily exposure is the best (~20 min), though a sunburn on a Tuesday will give you skin cancer It doesn't matter if there are clouds or rain, it still works! Daily increasing walking Walking is essential for the healing process This should be done on relatively flat clear ground (inside or outside) Goal is gradual daily improvement, not running a marathon tomorrow - slowly increase your distance and duration *Activity Restrictions: No bending, lifting or twisting No lifting over 8 pounds (a gallon of milk) until further notice Moving the fractured bones in your spine will prevent them from healing and possibly worsen the fracture Each of these activities places an unnecessary amount of stress onto the body and can impede the delicate healing process This may place restrictions on the kind of work you are able to do until your fracture is healed You may sleep on your back or your side to make you comfortable Good posture is the yoo to healing your fracture in good position - slouching or stooping while sitting or standing may worsen your fracture No driving until further notice. You absolutely must not drive while taking opioid pain medications- this is driving under the influence and is illegal. It is unwise to drive at all until you are sure you are capable of doing so without twisting or bending to reverse or view your blind spot (you must learn to use your mirrors for this). There are no absolute restrictions on riding as a passenger during short trips but be conservative It is l[place] to avoid vehicles with stiff suspension systems or riding on bumpy roads as these can worsen your fracture through sudden compression It is [place] to avoid flying during the bracing period as turbulence and landings can result in sudden compression of your spine and worsen your fracture [facility] Patient Instructions Care for Your Peripherally Inserted Central Catheter: What is a Peripherally Inserted Central (PICC)? A PICC or peripherally Inserted catheter is a thin, flexible tube. It is also called a central line. Central lines are used when you need to receive medicine, fluids, nutrients, or blood products forseveral weeks or more. The fluids are put through the central line so that they move quickly into the bloodstream. The line can be used many times, so you are not stuck with a needle every time. A PICC line is put through the skin into a vein in the upper arm, and threaded through the vein until the tip of the catheter reaches a large vein near the heart called the Superior Vena Cava. The point where the central line leaves the skin is called the exit site. Usually about 6 inches of the line stay outside of the body. Sometimes the line has two or three ends so that you can get more than one medicine at a time. These ends are called lumens. The end of each lumen is covered with a cap. You will feel a little pain when the doctor/RN numbs the area. You will not feel any pain when the central line is put in, maybe a little pressure. You may be a little sore for a day or two. You can take umkf-zuk-dhccgpe pain medicine, such as Tylenol or Advil, for relief. Follow-up care is a yoo part of your treatment and safety. Be sure to make and go to all appointments, and call your doctor if you are having problems. It is also a good idea to know your test results and keep a list of the medicines you take. General guidelines Try to keep the exit site dry. When you shower, cover the site with waterproof material, such as plastic wrap. Be sure you cover both the exit site and the PICC line cap(s). Never touch the open end of the central line if the cap is off. Never use scissors, knives, pins, or other sharp objects near the PICC line or other tubing. If your central line has a clamp, keep it clamped when you are not using it. Fasten or tape the PICC line to your body to prevent pulling or dangling. Avoid clothing that rubs or pulls on your PICC line. Avoid bending or crimping your PICC line. Always wash your hands before you touch your PICC line. Check the PICC every day for signs of infection. These include pain, tenderness, swelling, drainage, pus, redness, or warmth at or near the exit site. When to change the dressing If you have a gauze dressing, change it every 24 hours. If you have a clear plastic dressing, change it every 7 days. Also change your dressing if it is damp, bloody, loose, or dirty. Your doctor mayalso give you directions for when to change the dressing. This should be done by a healthcare provider under sterile technique. How to flush the PICC line A PICC line must be flushed every day to keep it clear of blood and prevent clotting. If it ends inmore than one line (lumen), flush them in the same order each time. Depending on the type of central line you have, you will flush it with either heparin or saline solution. Your doctor or nurse willprobably give you supplies and instructions on how to flush it. A nurse may come to your home to help you at first. You will usually lie down when you flush the line. This helps prevent air from getting into your vein. Preparing the syringe or cannula Be sure you have all your supplies ready. These may include the heparin or saline solution, syringes, needleless injection cannulas, alcohol swabs, and a disposal box. What you need will vary with the type of central line you have. You may have syringes that are already filled with the solution (preloaded). Wash your hands with liquid antibiotic soap for 15 seconds. Dry them with paper towels. Wipe the stopper of the heparin or saline solution bottle with an alcohol swab for 5 seconds. Remove the cover from the syringe, and twist the needle or cannula on to it. (It may already be attached.) Remove the cover from the needle or cannula. Note: If you have a preloaded syringe, skip to the next section, Flushing the central line. Pull back the plunger of the syringe, and draw air into the syringe equal to the amount of heparin or saline solution you are using. Push the needle or cannula through the rubber lid of the solution bottle. Push the plunger of the syringe to force air into the bottle. Turn the bottle and syringe upside down. Position the tip of the needle or cannula so that it is below the surface of fluid in the bottle. Pull back the plunger to fill the syringe with the amount ofsolution you need. Before you take the needle or cannula out of the bottle, check for air bubbles in liquid in the syringe. If there are bubbles, push the plunger back in and then pull back on it again. Remove the needle or cannula from the bottle. Fill other syringes if you need to flush more than one lumen. Flushing the PICC line Use an alcohol swab to rub the cap of the lumen you want to flush. Rub for 5 seconds, and then let the cap dry. Hold the end of the central line so it does not touch anything. If you have a clamp on the lumen, open it. Slowly inject heparin, or quickly inject saline solution. If there is resistance, stop. Do not force it. Call your doctor. If your central line has a clamp, clamp the lumen as you are finishing the injection and then remove the syringe. If your central line has a positive pressure cap, remove the syringe and then clamp the catheter. Put the syringe in the disposal box. Repeat the above steps for each lumen you are flushing. Wash your hands with liquid antibacterial soap. PICC Line Care: After Your Visit How can you care for yourself at home? To help prevent infection, take a shower instead of a bath. Do not go swimming with a PICC line. Talk to your doctor about what activities you can do. You may not be able to do sports or exercisesthat use the upper body, such as tennis or weight lifting. Clamp or tie off the line if it breaks. Then, go see a doctor as soon as possible. Go to all appointments to flush the line. This keeps it open. A nurse or other health professional will flush the line. When should you call for help? Call 911 anytime you think you may need emergency care. For example, call if: You have severe trouble breathing. You have sudden chest pain and shortness of breath, or you cough up blood. You have a fast or uneven pulse. Call your doctor now or seek immediate medical care if: You have signs of infection, such as: Increased pain, swelling, warmth, or redness. Red streaks leading from the exit site. Pus or blood draining from the exit site. Swollen lymph nodes in your neck, armpits, or groin. A fever. You have a fever over 100?F, or you have chills. You have swelling in your face, chest, neck, or arm on the side where the central line is. You have signs of a blood clot, such as bulging veins near the catheter. Your PICC line is leaking. You feel resistance when you inject medicine or fluids into your line. Watch closely for changes in your health, and be sure to contact your doctor if: You have any concerns about your line. This document includes your current and historical medications prescribed by your physician(s). Continue to take your current medicines and any new medications exactly as prescribed. Call your doctorwho prescribed the medication if you have any questions or if you think you are having a problem with your medicine. documented in this encounter Medications at Time of Discharge [...] 07/10/2024 07/17/2024 documented as of this encounter Progress Notes * Portia Lynne RN - 07/10/2024 9:50 AM CDT 07/10/24 0900 Discharge Planning Plan Discharge To Jail Facility Transportation Provider [facility] EMS Transportation Contact Name [place] Final Discharge Arrangements Care Facility Name [facility] Care Facility Contact Name [facility] Phone Number [phone] Date Of Pick-Up 07/10/24 Time Of Pick-Up 1200 Copy of this transfer form will be sent with patient along with: Demographic sheet;Pertinent Medical Records All discharge arrangements completed. Follow up IM letter completed. Patient Choice letter completed. Transportation upon Discharge form completed. Patient requires supervision for transport: YES Options for safe transport discussed with care team and presented to patient/ family. Son contacted and aware of discharge. If patient going LTAC, REHAB, SNF, INTERMEDIATE CARE FACILITY: Attending MD is Eve Muro, who canbe reached at [phone]. Portia Lynne RN, BSN Quantitative Associate [phone] * Hannah Grimes RD - 07/10/2024 9:42 AM CDT Images from the original note were not included. CLINICAL DIETITIAN PROGRESS NOTE [facility] Nutrition Risk Screen (LOS) Pt screened for length of stay. Pt with adequate po intake- currently eating 100% at meals. No nutrition intervention planned unless consulted or pt falls into nutrition risk. Will monitor po intake PRN. * Sydnie Sequeira MD - 07/09/2024 7:25 PM CDT [facility] Adult Progress Note Admit Date: 06/27/2024 Date of Note: 07/09/2024, 7:26 PM LOS: 12 days Plan Active Problems: # Acute low back pain: # Lumbar Osteomyelitis/discitiswith epidural phlegmon: - X-ray of the spine showed Disc and endplate changes at L5-S1 region suspicious for discitis and osteomyelitis. - MRI lumbar spine concerning for Lumbar discitis/osteomyelitis with epidural phlegmon - Neurosurgery consulted, appreciate input. No indication for neurosurgical intervention. Follow upwith Dr. Fischer in 3 months with upright xrays before the appointment - ID on board, resumed IV vancomycin and cefepime on 06/28 after biopsy; now on cefepime alone for planned 6 week course - S/p IR biopsy on 06/28 - Path reveals no malignancy and no evidence of definitive osteomyelitis. Tissue cultures no growth. Blood cx 06/27 NGTD. - Continue PT/OT, fall precautions - TLSO brace. Xray in brace looks fine per NSY - adjusted by [facility] and slightly more comfortable per pt but still not great - they will try to see in AM before 12:00 EMS to SNF - plan cefepime x [address] Oliver #abominal pain - new 07/07 - feels like skin is stretching - maybe related to brace? Sat up a long time before it started - monitor for now - improving # HLD: -Continue home atorvastatin # Hx asthma, Emphysema: With no acute exacerbation. -Continue home Trelegy and albuterol as needed # FAISAL: - home CPAP # GERD: - home pantoprazole # Type 2 DM: - Holding home jardiance - has been on SSI but hasn't needed any so stopped accuchecks and SSI - follow on BMP # Peripheral neuropathy: -Continue gabapentin # HTN: - MANAGER SPA losartan and hydrochlorothiazide on hold - BP controlled off meds. Continue to monitor - likely should hold on DC and resume when BP increases # Constipation - Continue bowel regimen - having BMs Nutrition: Current Diet and/or Nutritional Supplementation ordered: DIET GENERAL Effective Now Quality/Safety/Core Measures/Disposition Planning: DVT Prophylaxis - Enoxaparin PT POC Therapy Plan of Care: 2-5x/wk (07/02/24 1434) OT POC Therapy Plan of Care: 2-5x/week (07/06/24 1418) Activity Order: Present Activity: in bed (07/08/242010) Rubio catheter:absent Current Code Status -Full Code Plan discussed with patient, questions answered. Current Planned Disposition - Inpatient Post Acute Therapy tomorrow Subjective Previous history of present illness and review of systems have been reviewed today as documented inthe H&P on 06/27/2024; medications, labs, studies, notes, orders and consults have been reviewed. I have reviewed the notes from admission. Doing ok today. Still having some discomfort from the brace. Eating/drinking fine. PICC was bleeding earlier but improved. Eager to go to SNF Objective BP 134/71 (BP Location: Right arm, Patient Position (BP): Supine) Pulse 84 Temp 98.6 ??F (37 ??C) (Oral) Resp 16 Ht 5' 6 (1.676 m) Wt 122.2 kg (269 lb 6.4 oz) SpO2 98% BMI 43.48 kg/m??Temp (24hrs), Av.1 ??F (36.7 ??C), Min:97.7 ??F (36.5 ??C), Max:98.6 ??F (37 ??C) Large amount stool (07/07/24 1500) Exam: Gen alert, cooperative, no distress, obese Lungs Breathing comfortably, CTAB Abdomen Nondistended, soft/nontender Extremities extremities without edema CV RRR, no murmurs Neuro maew Data: I have reviewed all new labs and studies resulted and pertinent ones are noted below CBC: Recent Labs 07/07/24 0510 WBC 7.0 HGB 10.3* HCT 33.4* PLT 215 MCV 92.0 BMP: Recent Labs 07/07/24 0510 NA 142 K 4.1 CL 105 CO2 30* ANIONGAP 7* CA 9.2 GLUCOSE 111* BUN 15 CREAT 0.67 OTHER LYTES:No results for input(s): MG , PO4 in the last 72 hours. AccuCheks: Recent Labs 07/07/24 0739 07/07/24 1226 07/07/24 1710 07/07/24 2125 GLUCPOC 94 89 117* 127* LFTs:No results for input(s): TOTALPROTEIN , BILITOTAL , ALKPHOS , ALBUMIN , ALT , AST in the last 72 hours. Coagulation: No results for input(s): PT , INR , APTT in the last 72 hours. Sydnie Sequeira MD [facility] Hospitalist Message via secure chat (7 AM to 7 PM) Virtual ticket system to [facility] Hospitalist (7PM to 7AM) * Sydnie Sequeira MD - 07/08/2024 4:34 PM CDT [facility] Adult Progress Note Admit Date: 06/27/2024 Date of Note: 07/08/2024, 4:34 PM LOS: 11 days Plan Active Problems: # Acute low back pain: # Lumbar Osteomyelitis/discitiswith epidural phlegmon: - X-ray of the spine showed Disc and endplate changes at L5-S1 region suspicious for discitis and osteomyelitis. - MRI lumbar spine concerning for Lumbar discitis/osteomyelitis with epidural phlegmon - Neurosurgery consulted, appreciate input. No indication for neurosurgical intervention per neurosurgery. - ID on board, resumed IV vancomycin and cefepime on 06/28 after biopsy; continues cefepime alone for planned 6 week course - S/p IR biopsy on 06/28 - Path reveals no malignancy and no evidence of definitive osteomyelitis. Tissue cultures no growth. Blood cx 06/27 NGTD. - Continue PT/OT, fall precautions - TLSO brace. Xray in brace looks fine per NSY - adjusted by B&H and much more comfortable per pt - now planning rehab/SNF for cefepime x [address] Oliver #abominal pain - new 07/07 - feels like skin is stretching - maybe related to brace? Sat up a long time before it started - monitor for now - stable to improved today # HLD: -Continue home atorvastatin # Hx asthma, Emphysema: With no acute exacerbation. -Continue home Trelegy and albuterol as needed # FAISAL: - home CPAP # GERD: - home pantoprazole # Type 2 DM: - Holding home jardiance - has been on SSI but hasn't needed any so stopped accuchecks and SSI - can follow on BMP # Peripheral neuropathy: -Continue gabapentin # HTN: - MANAGER SPA losartan and hydrochlorothiazide on hold - BP controlled off meds. Continue to monitor # Constipation - Continue bowel regimen - having BMs Nutrition: Current Diet and/or Nutritional Supplementation ordered: DIET GENERAL Effective Now Quality/Safety/Core Measures/Disposition Planning: DVT Prophylaxis - Enoxaparin PT POC Therapy Plan of Care: 2-5x/wk (07/02/24 1434) OT POC Therapy Plan of Care: 2-5x/week (07/06/24 1418) Activity Order: Present Activity: up to bedside commode;back to bed (07/08/24 1233) Rubio catheter:absent Current Code Status -Full Code Plan discussed with patient, questions answered. Current Planned Disposition - Inpatient Post Acute Therapy pending auth/acceptance Subjective Previous history of present illness and review of systems have been reviewed today as documented inthe H&P on 06/27/2024; medications, labs, studies, notes, orders and consults have been reviewed. I have reviewed the notes from admission. Doing well. Feels like she's getting weaker. Tolerating PO. Still has some R sided abdominal pain. Objective BP 122/66 (BP Location: Right arm, Patient Position (BP): Supine) Pulse 78 Temp 98.2 ??F (36.8 ??C) (Oral) Resp 20 Ht 5' 6 (1.676 m) Wt 122.2 kg (269 lb 6.4 oz) SpO2 99% BMI 43.48 kg/m?? Temp (24hrs), Av.2 ??F (36.8 ??C), Min:98.2 ??F (36.8 ??C), Max:98.2 ??F (36.8 ??C) Large amount stool (07/07/24 1500) Exam: Gen alert, cooperative, no distress, obese, on the commode Lungs Breathing comfortably Abdomen nondistended Extremities extremities without edema Neuro appropriate Data: I have reviewed all new labs and studies resulted and pertinent ones are noted below CBC: Recent Labs 07/07/24 0510 WBC 7.0 HGB 10.3* HCT 33.4* PLT 215 MCV 92.0 BMP: Recent Labs 07/07/24 0510 NA 142 K 4.1 CL 105 CO2 30* ANIONGAP 7* CA 9.2 GLUCOSE 111* BUN 15 CREAT 0.67 OTHER LYTES:No results for input(s): MG , PO4 in the last 72 hours. AccuCheks: Recent Labs 07/07/24 0739 07/07/24 1226 07/07/24 1710 07/07/24 2125 GLUCPOC 94 89 117* 127* LFTs:No results for input(s): TOTALPROTEIN , BILITOTAL , ALKPHOS , ALBUMIN , ALT , AST in the last 72 hours. Coagulation: No results for input(s): PT , INR , APTT in the last 72 hours. Sydnie Sequeira MD [facility] Hospitalist Message via secure chat (7 AM to 7 PM) Virtual ticket system to [facility] Hospitalist (7PM to 7AM) * Danielle Hernandez RN - 07/08/2024 5:26 AM CDT Patient is: A&O x 4 Pain Range/Score during the shift: elevated, pt complaining of gas pain and back pain - flexeril and tums help Void or Bowel Movement: pt is voiding via bedside commode Diet Tolerated: Regular, ACHS Behaviors: calm, pleasant Activity: x1 Pt not always compliant with TLSO brace Discharge: Pending placement Patient has remained free of falls this shift. Patient is stable and resting comfortably. Shift Summary Administered hydrocodone-acetaminophen for pain management. Patient refused sennosides-docusate sodium for bowel function. Patient was up to the bedside commode and back to bed with assistance. Administered simethicone for gas discomfort. Patient's overall status remains stable with ongoing monitoring required for pain, gastrointestinal, musculoskeletal, and peripheral neurovascular functions. Verbalizes/displays acceptable comfort level or baseline comfort level: Pain was reported during the shift, and hydrocodone-acetaminophen was administered at 05:15 PM for pain management. Pain control remains a primary goal, and further monitoring is required to assess the effectiveness of interventions. Achieve optimal gastrointestinal function by discharge or maintain baseline function: Patient experienced gas discomfort and refused sennosides-docusate sodium at 06:00 PM. Simethicone was administered at 09:12 PM to manage gas symptoms. Achieve optimal musculoskeletal function by discharge or maintain baseline function: Patient was able to ambulate with assistance and used a walker and gait belt. Mobility and independence in ADLs were promoted during the shift. Achieve optimal peripheral neurovascular function by discharge or maintain baseline function: Mild edema was noted in both ankles and feet, and the affected extremity was elevated as an intervention.Peripheral neurovascular function requires ongoing monitoring. * Sydnie Sequeira MD - 07/07/2024 12:45 PM CDT [facility] Adult Progress Note Admit Date: 06/27/2024 Date of Note: 07/07/2024, 12:45 PM LOS: 10 days Plan Active Problems: # Acute low back pain: # Lumbar Osteomyelitis/discitiswith epidural phlegmon: - X-ray of the spine showed Disc and endplate changes at L5-S1 region suspicious for discitis and osteomyelitis. - MRI lumbar spine concerning for Lumbar discitis/osteomyelitis with epidural phlegmon - Neurosurgery consulted, appreciate input. No indication for neurosurgical intervention per neurosurgery. - ID on board, resumed IV vancomycin and cefepime on 06/28 after biopsy; continues cefepime alone for planned 6 week course - S/p IR biopsy on 06/28 - Path reveals no malignancy and no evidence of definitive osteomyelitis. Tissue cultures no growth. Blood cx 06/27 NGTD. - Continue PT/OT, fall precautions - TLSO brace. Xray in brace looks fine per NSY - adjusted by B&H and much more comfortable per pt - now planning rehab/SNF for cefepime x [address] Oliver #abominal pain - new today - feels like skin is stretching - maybe related to brace? Sat up a long time yesterday - monitor for now # HLD: -Continue home atorvastatin # Hx asthma, Emphysema: With no acute exacerbation. -Continue home Trelegy and albuterol as needed # FAISAL: - home CPAP # GERD: - home pantoprazole # Type 2 DM: - Holding home jardiance - has been on SSI but hasn't needed any so will dc accuchecks and SSI - can follow on BMP # Peripheral neuropathy: -Continue gabapentin # HTN: - MANAGER SPA losartan and hydrochlorothiazide on hold - BP controlled off meds. Continue to monitor # Constipation - Continue bowel regimen - having BMs Nutrition: Current Diet and/or Nutritional Supplementation ordered: DIET GENERAL Effective Now Quality/Safety/Core Measures/Disposition Planning: DVT Prophylaxis - Enoxaparin PT POC Therapy Plan of Care: 2-5x/wk (07/02/24 1434) OT POC Therapy Plan of Care: 2-5x/week (07/06/24 1418) Activity Order: Present Activity: ambulating;up to bedside commode;back to bed (07/07/24 0600) Rubio catheter:absent Current Code Status -Full Code Plan discussed with patient, questions answered. Current Planned Disposition - Inpatient Post Acute Therapy pending auth/acceptance Subjective Previous history of present illness and review of systems have been reviewed today as documented inthe H&P on 06/27/2024; medications, labs, studies, notes, orders and consults have been reviewed. I have reviewed the notes from admission. Doing ok today - having some R sided abdominal pain - feels like the skin is stretched. She sat up for a long time in her brace yesterday. Had some muscle spasms earlier. Otherwise doing fine. Objective BP 103/66 (BP Location: Right arm, Patient Position (BP): Supine) Pulse 79 Temp 97.7 ??F (36.5 ??C) (Oral) Resp 16 Ht 5' 6 (1.676 m) Wt 122.2 kg (269 lb 6.4 oz) SpO2 99% BMI 43.48 kg/m?? Temp (24hrs), Av ??F (36.7 ??C), Min:97.7 ??F (36.5 ??C), Max:98.4 ??F (36.9 ??C) Large amount stool (07/06/242238) Exam: Gen alert, cooperative, no distress, obese, in brace Lungs clear to auscultation bilaterally, normal respiratory effort Heart regular rate and rhythm, S1, S2 normal, no murmurs Abdomen soft, non-tender to deep palpation. Bowel sounds normal. Extremities extremities without edema Neuro Alert and oriented, moves all extremities well Data: I have reviewed all new labs and studies resulted and pertinent ones are noted below CBC: Recent Labs 07/07/24 0510 WBC 7.0 HGB 10.3* HCT 33.4* PLT 215 MCV 92.0 BMP: Recent Labs 07/07/24 0510 NA 142 K 4.1 CL 105 CO2 30* ANIONGAP 7* CA 9.2 GLUCOSE 111* BUN 15 CREAT 0.67 OTHER LYTES:No results for input(s): MG , PO4 in the last 72 hours. AccuCheks: Recent Labs 07/06/24 1720 07/06/24 2047 07/07/24 0739 07/07/24 1226 GLUCPOC 123* 113* 94 89 LFTs:No results for input(s): TOTALPROTEIN , BILITOTAL , ALKPHOS , ALBUMIN , ALT , AST in the last 72 hours. Coagulation: No results for input(s): PT , INR , APTT in the last 72 hours. Sydnie Sequeira MD [facility] Message via secure chat (7 AM to 7 PM) [facility] * Sydnie Sequeira MD - 07/06/2024 4:16 PM CDT [facility] Adult Progress Note Admit Date: 06/27/2024 Date of Note: 07/06/2024, 4:16 PM LOS: 9 days Plan Active Problems: # Acute low back pain: # Lumbar Osteomyelitis/discitiswith epidural phlegmon: - X-ray of the spine showed Disc and endplate changes at L5-S1 region suspicious for discitis and osteomyelitis. - MRI lumbar spine concerning for Lumbar discitis/osteomyelitis with epidural phlegmon - Neurosurgery consulted, appreciate input. No indication for neurosurgical intervention per neurosurgery. - ID on board, resumed IV vancomycin and cefepime on 06/28 after biopsy; continues cefepime alone for planned 6 week course - S/p IR biopsy on 06/28 - Path reveals no malignancy and no evidence of definitive osteomyelitis. Tissue cultures no growth. Blood cx 06/27 NGTD. - Continue PT/OT, fall precautions - TLSO brace. Xray in brace looks fine per NSY - adjusted by B&H today and much more comfortable per pt - now planning rehab/SNF for cefepime x [address] Oliver # HLD: -Continue home atorvastatin # Hx asthma, Emphysema: With no acute exacerbation. -Continue home Trelegy and albuterol as needed # FAISAL: - home CPAP # GERD: - home pantoprazole # Type 2 DM: - Holding home jardiance - Continue SSI. - BG well controlled # Peripheral neuropathy: -Continue gabapentin # HTN: - MANAGER SPA losartan and hydrochlorothiazide on hold - BP controlled off meds. Continue to monitor # Constipation - Continue bowel regimen - having BMs Nutrition: Current Diet and/or Nutritional Supplementation ordered: DIET GENERAL Effective Now Quality/Safety/Core Measures/Disposition Planning: DVT Prophylaxis - Enoxaparin PT POC Therapy Plan of Care: 2-5x/wk (07/02/24 1434) OT POC Therapy Plan of Care: 2-5x/week (07/06/24 1418) Activity Order: Present Activity: ambulating;up in room;up in bathroom;up to chair (07/06/24 6871) Rubio catheter:absent Current Code Status -Full Code Plan discussed with patient, questions answered. Current Planned Disposition - Inpatient Post Acute Therapy pending auth/acceptance Subjective Previous history of present illness and review of systems have been reviewed today as documented inthe H&P on 06/27/2024; medications, labs, studies, notes, orders and consults have been reviewed. I have reviewed the notes from admission. Doing well. Up in the chair. Brace adjusted and more comfortable. Eating/drinking fine. Pain controlled. Objective BP 114/62 (BP Location: Right arm, Patient Position (BP): Supine) Pulse 78 Temp 97.9 ??F (36.6 ??C) (Oral) Resp 19 Ht 5' 6 (1.676 m) Wt 122.2 kg (269 lb 6.4 oz) SpO2 98% BMI 43.48 kg/m?? Temp (24hrs), Av.2 ??F (36.8 ??C), Min:97.9 ??F (36.6 ??C), Max:98.4 ??F (36.9 ??C) Small amount stool (07/04/24 1008) Exam: Gen alert, cooperative, no distress, obese, in brace Lungs clear to auscultation bilaterally, normal respiratory effort Heart regular rate and rhythm, S1, S2 normal, no murmurs Abdomen soft, non-tender. Bowel sounds normal. Extremities extremities without edema Neuro Alert and oriented, moves all extremities well Data: I have reviewed all new labs and studies resulted and pertinent ones are noted below CBC: Recent Labs 07/04/24 0641 WBC 7.0 HGB 10.9* HCT 35.2* PLT 248 MCV 92.9 BMP: Recent Labs 07/04/24 0641 NA 143 K 4.2 CL 107 CO2 30* ANIONGAP 6* CA 9.2 GLUCOSE 101* BUN 15 CREAT 0.68 OTHER LYTES:No results for input(s): MG , PO4 in the last 72 hours. AccuCheks: Recent Labs 07/05/24 1238 07/05/24 1648 07/05/24 2143 07/06/24 0910 GLUCPOC 99 114* 114* 91 LFTs:No results for input(s): TOTALPROTEIN , BILITOTAL , ALKPHOS , ALBUMIN , ALT , AST in the last 72 hours. Coagulation: No results for input(s): PT , INR , APTT in the last 72 hours. Sydnie Sequeira MD [facility] Message via secure chat (7 AM to 7 PM) [facility] * Sanaz Massey RN - 07/06/2024 6:44 AM CDT Patient sleeping in between care, easy to arouse. C/O lower back pain, patient expresses pain relief with PRN medication and repositioning. Bedtime Blood sugar 114 . Patient C/O discomfort of TLSO brace, would like to f/u with [facility] today. Call light and belongings in reach. Remains free of falls. RN monitoring * Sydnie Sequeira MD - 07/05/2024 1:28 PM CDT [facility] Adult Progress Note Admit Date: 06/27/2024 Date of Note: 07/05/2024, 1:28 PM LOS: 8 days Plan Active Problems: # Acute low back pain: # Lumbar Osteomyelitis/discitiswith epidural phlegmon: - X-ray of the spine showed Disc and endplate changes at L5-S1 region suspicious for discitis and osteomyelitis. - MRI lumbar spine concerning for Lumbar discitis/osteomyelitis with epidural phlegmon - Neurosurgery consulted, appreciate input. No indication for neurosurgical intervention per neurosurgery. - ID on board, resumed IV vancomycin and cefepime on 06/28 after biopsy; continues cefepime alone for planned 6 week course - S/p IR biopsy on 06/28 - Path reveals no malignancy and no evidence of definitive osteomyelitis. Tissue cultures no growth. Blood cx 06/27 NGTD. - Continue PT/OT, fall precautions - TLSO brace. Xray in brace looks fine per NSY - now planning rehab/SNF for cefepime x [address] Oliver # HLD: -Continue home atorvastatin # Hx asthma, Emphysema: With no acute exacerbation. -Continue home Trelegy and albuterol as needed # FAISAL: - home CPAP # GERD: - home pantoprazole # Type 2 DM: - Holding home jardiance - Continue SSI. - BG well controlled # Peripheral neuropathy: -Continue gabapentin # HTN: - MANAGER SPA losartan and hydrochlorothiazide on hold - BP controlled off meds. Continue to monitor # Constipation - Continue bowel regimen - having BMs Nutrition: Current Diet and/or Nutritional Supplementation ordered: DIET GENERAL Effective Now Quality/Safety/Core Measures/Disposition Planning: DVT Prophylaxis - Enoxaparin PT POC Therapy Plan of Care: 2-5x/wk (07/02/24 1434) OT POC Therapy Plan of Care: 2-5x/week (07/01/24 1340) Activity Order: Present Activity: in bed (07/05/24 1241) Rubio catheter:absent Current Code Status -Full Code Plan discussed with patient, questions answered. Current Planned Disposition - Inpatient Post Acute Therapy pending auth/acceptance Subjective Previous history of present illness and review of systems have been reviewed today as documented inthe H&P on 06/27/2024; medications, labs, studies, notes, orders and consults have been reviewed. I have reviewed the notes from admission. Doing ok. Sounds like insurance denied appeal as well. Eating/drinking fine. Pain controlled. Wantsto be closer to home in [place]. Objective BP 112/83 (BP Location: Right arm, Patient Position (BP): Supine) Pulse 75 Temp 98 ??F (36.7 ??C) (Oral) Resp 16 Ht 5' 6 (1.676 m) Wt 122.2 kg (269 lb 6.4 oz) SpO2 99% BMI 43.48 kg/m??Temp (24hrs), Av.9 ??F (36.6 ??C), Min:96.8 ??F (36 ??C), Max:98.4 ??F (36.9 ??C) Small amount stool (07/04/24 1008) Exam: Gen alert, cooperative, no distress, obese Lungs clear to auscultation bilaterally, normal respiratory effort Heart regular rate and rhythm, S1, S2 normal, no murmurs Abdomen soft, non-tender. Bowel sounds normal. Extremities extremities without edema Neuro Alert and oriented, moves all extremities well Data: I have reviewed all new labs and studies resulted and pertinent ones are noted below CBC: Recent Labs 07/04/24 0641 WBC 7.0 HGB 10.9* HCT 35.2* PLT 248 MCV 92.9 BMP: Recent Labs 07/04/24 0641 NA 143 K 4.2 CL 107 CO2 30* ANIONGAP 6* CA 9.2 GLUCOSE 101* BUN 15 CREAT 0.68 OTHER LYTES:No results for input(s): MG , PO4 in the last 72 hours. AccuCheks: Recent Labs 07/04/24 1138 07/04/24 1657 07/05/24 0752 07/05/24 1238 GLUCPOC 109* 111* 96 99 LFTs:No results for input(s): TOTALPROTEIN , BILITOTAL , ALKPHOS , ALBUMIN , ALT , AST in the last 72 hours. Coagulation: No results for input(s): PT , INR , APTT in the last 72 hours. Sydnie Sequeira MD [facility] Message via secure chat (7 AM to 7 PM) Virtual ticket system to [facility] Hospitalist (7PM to 7AM) * Rashi Moya RN - 07/05/2024 4:28 AM CDT Keegan Amaya is resting in bed, CPAP device in place, VSS, NAD, oriented X4. Pain controlled withoral pain medications as needed. Fall precautions maintained. Hygiene maintained. Tolerating diet. Blood sugars checked prior to meals and corrected with insulin as needed. * Sydnie Sequeira MD - 07/04/2024 2:40 PM CDT [facility] Adult Progress Note Admit Date: 06/27/2024 Date of Note: 07/04/2024, 2:40 PM LOS: 7 days Plan Active Problems: # Acute low back pain: # Lumbar Osteomyelitis/discitiswith epidural phlegmon: - X-ray of the spine showed Disc and endplate changes at L5-S1 region suspicious for discitis and osteomyelitis. - MRI lumbar spine concerning for Lumbar discitis/osteomyelitis with epidural phlegmon - Neurosurgery consulted, appreciate input. No indication for neurosurgical intervention per neurosurgery. - ID on board, resumed IV vancomycin and cefepime on 06/28 after biopsy. - S/p IR biopsy on 06/28 - Path reveals no malignancy and no evidence of definitive osteomyelitis. Tissue cultures no growth. Blood cx 06/27 NGTD. - Continue PT/OT, fall precautions - TLSO brace. Xray in brace looks fine per NSY - now planning rehab/SNF for cefepime x [address] Oliver # HLD: -Continue home atorvastatin # Hx asthma, Emphysema: With no acute exacerbation. -Continue home Trelegy and albuterol as needed # FAISAL: - home CPAP # GERD: - home pantoprazole # Type 2 DM: - Holding home jardiance - Continue SSI. - BG well controlled # Peripheral neuropathy: -Continue gabapentin # HTN: - MANAGER SPA losartan and hydrochlorothiazide on hold - BP controlled off meds. Continue to monitor # Constipation - Continue bowel regimen - having BMs Nutrition: Current Diet and/or Nutritional Supplementation ordered: DIET GENERAL Effective Now Quality/Safety/Core Measures/Disposition Planning: DVT Prophylaxis - Enoxaparin PT POC Therapy Plan of Care: 2-5x/wk (07/02/24 1434) OT POC Therapy Plan of Care: 2-5x/week (07/01/24 1340) Activity Order: Present Activity: in bed (07/04/24 0910) Rubio catheter:absent Current Code Status -Full Code Plan discussed with patient, questions answered. Current Planned Disposition - Inpatient Post Acute Therapy pending auth Subjective Previous history of present illness and review of systems have been reviewed today as documented inthe H&P on 06/27/2024; medications, labs, studies, notes, orders and consults have been reviewed. I have reviewed the notes from admission. Doing ok today. Insurance didn't approve rehab, expedited appeal pending. Pain controlled. Eating fine. No issues. Objective BP 115/66 (BP Location: Right arm, Patient Position (BP): Supine) Pulse 77 Temp 97.9 ??F (36.6 ??C) (Oral) Resp 16 Ht 5' 6 (1.676 m) Wt 122.2 kg (269 lb 6.4 oz) SpO2 100% BMI 43.48 kg/m?? Temp (24hrs), Av ??F (36.7 ??C), Min:97.8 ??F (36.6 ??C), Max:98.3 ??F (36.8 ??C) Small amount stool (07/04/24 1008) Exam: Gen alert, cooperative, no distress, obese Lungs clear to auscultation bilaterally, normal respiratory effort Heart regular rate and rhythm, S1, S2 normal, no murmurs Abdomen soft, non-tender. Bowel sounds normal. Extremities extremities without edema Neuro Alert and oriented, moves all extremities well Data: I have reviewed all new labs and studies resulted and pertinent ones are noted below CBC: Recent Labs 07/04/24 0641 WBC 7.0 HGB 10.9* HCT 35.2* PLT 248 MCV 92.9 BMP: Recent Labs 07/04/24 0641 NA 143 K 4.2 CL 107 CO2 30* ANIONGAP 6* CA 9.2 GLUCOSE 101* BUN 15 CREAT 0.68 OTHER LYTES:No results for input(s): MG , PO4 in the last 72 hours. AccuCheks: Recent Labs 07/03/24 1722 07/03/24 2251 07/04/24 0744 07/04/24 1138 GLUCPOC 110* 116* 102* 109* LFTs:No results for input(s): TOTALPROTEIN , BILITOTAL , ALKPHOS , ALBUMIN , ALT , AST in the last 72 hours. Coagulation: No results for input(s): PT , INR , APTT in the last 72 hours. Sydnie Sequeira MD [facility] [facility] Message via secure chat (7 AM to 7 PM) Virtual ticket system to [facility] Hospitalist (7PM to 7AM) * Sydnie Sequeira MD - 07/03/2024 3:44 PM CDT [facility] Adult Progress Note Admit Date: 06/27/2024 Date of Note: 07/03/2024, 3:44 PM LOS: 6 days Plan Active Problems: # Acute low back pain: # Lumbar Osteomyelitis/discitiswith epidural phlegmon: - X-ray of the spine showed Disc and endplate changes at L5-S1 region suspicious for discitis and osteomyelitis. - MRI lumbar spine concerning for Lumbar discitis/osteomyelitis with epidural phlegmon - Neurosurgery consulted, appreciate input. No indication for neurosurgical intervention per neurosurgery. - ID on board, resumed IV vancomycin and cefepime on 06/28 after biopsy. - S/p IR biopsy on 06/28 - Path reveals no malignancy and no evidence of definitive osteomyelitis. Tissue cultures no growth. Follow-up with final culture results. Blood cx 06/27 NGTD. - Continue PT/OT, fall precautions - TLSO brace. Xray in brace looks fine per NSY - now planning SNF for cefepime x [address] Oliver # HLD: -Continue home atorvastatin # Hx asthma, Emphysema: With no acute exacerbation. -Continue home Trelegy and albuterol as needed # FAISAL: - home CPAP # GERD: - home pantoprazole # Type 2 DM: - Holding home jardiance - Continue SSI. - BG well controlled # Peripheral neuropathy: -Continue gabapentin # HTN: - MANAGER SPA losartan and hydrochlorothiazide on hold - BP controlled # Constipation - Continue bowel regimen - having BMs Nutrition: Current Diet and/or Nutritional Supplementation ordered: DIET GENERAL Effective Now Quality/Safety/Core Measures/Disposition Planning: DVT Prophylaxis - Enoxaparin PT POC Therapy Plan of Care: 2-5x/wk (07/02/24 1434) OT POC Therapy Plan of Care: 2-5x/week (07/01/24 1340) Activity Order: Present Activity: back to bed (07/03/24 0806) Rubio catheter:absent Current Code Status -Full Code Plan discussed with patient, questions answered. Current Planned Disposition - Inpatient Post Acute Therapy pending improvement Subjective Previous history of present illness and review of systems have been reviewed today as documented inthe H&P on 06/27/2024; medications, labs, studies, notes, orders and consults have been reviewed. I have reviewed the notes from admission. Doing well today. Pain controlled with current regimen. Eating/drinking ok. Wants to go to rehab ondc. Objective BP 114/55 (BP Location: Right arm, Patient Position (BP): Supine) Pulse 63 Temp 97.5 ??F (36.4 ??C) (Oral) Resp 16 Ht 5' 6 (1.676 m) Wt 122.2 kg (269 lb 6.4 oz) SpO2 100% BMI 43.48 kg/m?? Temp (24hrs), Av ??F (36.7 ??C), Min:97.5 ??F (36.4 ??C), Max:98.6 ??F (37 ??C) Moderate amount stool (07/03/24 1028) Exam: Gen alert, cooperative, no distress, obese Lungs clear to auscultation bilaterally, normal respiratory effort Heart regular rate and rhythm, S1, S2 normal, no murmurs Abdomen soft, non-tender. Bowel sounds normal. Extremities extremities without edema Neuro Alert and oriented, moves all extremities well Data: I have reviewed all new labs and studies resulted and pertinent ones are noted below CBC:No results for input(s): WBC , HGB , HCT , PLT , MCV in the last 72 hours. BMP:No results for input(s): NA , K , CL , CO2 , ANIONGAP , CA , GLUCOSE , BUN , CREAT inthe last 72 hours. OTHER LYTES:No results for input(s): MG , PO4 in the last 72 hours. AccuCheks: Recent Labs 07/02/24 1836 07/02/24 2239 07/03/24 0840 07/03/24 1341 GLUCPOC 132* 155* 102* 78 LFTs:No results for input(s): TOTALPROTEIN , BILITOTAL , ALKPHOS , ALBUMIN , ALT , AST in the last 72 hours. Coagulation: No results for input(s): PT , INR , APTT in the last 72 hours. Sydnie Sequeira MD [facility] Hospitalist Message via secure chat (7 AM to 7 PM) Virtual ticket system to [facility] Hospitalist (7PM to 7AM) * Indio Oliver MD - 07/02/2024 3:18 PM CDT Infectious Diseases Progress Note Date of service: 07/02/2024,3:18 PM Admit Date: 06/27/2024 LOS: 5 days Current antimicrobials/duration: vanc/cefepime Subjective-24 hr events: Reports back stiffness in the morning but pain seems to be better. No fever Objective: Patient Vitals for the past 24 hrs: BP Temp Temp src Pulse Resp SpO2 07/02/24 1203 114/56 97.2 ??F (36.2 ??C) Oral 75 18 98 % 07/02/24 0408 123/70 98.4 ??F (36.9 ??C) Oral 76 16 99 % 07/02/24 0224 -- -- -- -- 18 -- 07/01/249 -- -- -- -- 19 97 % 07/01/24 1958 121/60 98.2 ??F (36.8 ??C) Oral 83 18 99 % No intake or output data in the 24 hours ending 07/02/24 1518 Physical Exam: General Appearance: alert, NAD HEENT: no icterus Heart:RRR Chest: CTA Abdomen: soft Extremities: no edema Results for orders placed or performed during the hospital encounter of 06/27/24 (from the past 24 hour(s)) POC GLUCOSE Result Value Ref Range GLUCOSE POC 129 (H) 74 - 99 mg/dL SPECIMEN SOURCE, GLUCOSE POC Whole Blood POC GLUCOSE Result Value Ref Range GLUCOSE POC 124 (H) 74 - 99 mg/dL SPECIMEN SOURCE, GLUCOSE POC Whole Blood POC GLUCOSE Result Value Ref Range GLUCOSE POC 113 (H) 74 - 99 mg/dL SPECIMEN SOURCE, GLUCOSE POC Whole Blood VANCOMYCIN LEVEL TROUGH Result Value Ref Range VANCOMYCIN, TROUGH 18.7 (H) 10.0 - 17.0 ug/mL MRSA PCR RAPID SCREEN Specimen: Nares; Surveillance Result Value Ref Range MRSA PCR RESULT MRSA not detected MRSA not detected POC GLUCOSE Result Value Ref Range GLUCOSE POC 102 (H) 74 - 99 mg/dL SPECIMEN SOURCE, GLUCOSE POC Whole Blood Estimated Creatinine Clearance: 71.8 mL/min (by C-G formula based on SCr of 0.88 mg/dL). Assessment: Lumbar discitis/osteomyelitis with epidural phlegmon Unclear source Remote history of presumed diverticulitis History of UTI Emphysema Plan: Got PICC line Will arrange for patient to receive 6 weeks of IV Cefepime at home OK to discharge once Home Infusion has been set up Follow-up after discharge: Indio Oliver MD, FACP, [facility] Infectious Diseases Office Exchange: [phone] * Mia Fowler MD - 07/02/2024 2:49 PM CDT [facility] Adult Hospitalist Progress Note Admit Date: 06/27/2024 Date of Note: 07/02/2024, 2:49 PM LOS: 5 days Assessment and Plan: # Acute low back pain: # Lumbar Osteomyelitis/discitiswith epidural phlegmon: - X-ray of the spine showed Disc and endplate changes at L5-S1 region suspicious for discitis and osteomyelitis. -MRI lumbar spine concerning for Lumbar discitis/osteomyelitis with epidural phlegmon -Neurosurgery consulted, appreciate input. No indication for neurosurgical intervention per neurosurgery. - S/p IR for biopsy 06/28. -ID on board, resumed IV vancomycin and cefepime on 06/28 after biopsy. -Path reveals no malignancy and no evidence of definitive osteomyelitis. Tissue cultures no growth.Follow-up with final culture results. Blood cx 06/27 NGTD. -Continue PT/OT, fall precautions -TLSO brace. Xray in brace looks fine per NSY - SW consulted to arrange home iv abx. Pt needs teaching. - home with [facility] and iv abx once arranged # HLD: -Continue home atorvastatin # Hx asthma, Emphysema: With no acute exacerbation. -Continue home Trelegy and albuterol as needed # FAISAL: -resumed CPAP # GERD: -resumed pantoprazole # Type 2 DM: - Holding home oral med. - Continue SSI. - BG well controlled # Peripheral neuropathy: -Continue gabapentin # HTN: - MANAGER SPA losartan and hydrochlorothiazide on hold # Constipation Continue bowel regimen No BM yet Add miralax daily 07/01 Nutrition: Current Diet and/or Nutritional Supplementation ordered: DIET GENERAL Effective Now Quality/Safety/Core Measures/Disposition Planning: DVT Prophylaxis - Enoxaparin, starting tomorrow PT POC PT Current Discharge Recommendation: Post acute care (07/01/24 1650) OT POC OT Current Discharge Recommendation: Post acute care;Will tolerate 3 hours of therapy (07/01/24 1340) Rubio catheter:absent Current Code Status -Full Code Plan discussed with patient, questions answered. Estimated Discharge Day: 07/02/2024 Current Planned Disposition - Dispo: To be determined. Subjective Previous history of present illness and review of systems have been reviewed today as documented inthe H&P on 06/27/2024; medications, labs, studies, notes, orders and consults have been reviewed. I have reviewed the notes from admission. Seen and examined this a.m. No acute events overnight No new complaints Objective BP 114/56 (BP Location: Right arm, Patient Position (BP): Supine) Pulse 75 Temp 97.2 ??F (36.2 ??C) (Oral) Resp 18 Ht 5' 6 (1.676 m) Wt 122.2 kg (269 lb 6.4 oz) SpO2 98% BMI 43.48 kg/m?? Temp (24hrs), Av.9 ??F (36.6 ??C), Min:97.2 ??F (36.2 ??C), Max:98.4 ??F (36.9 ??C) Moderate amount stool (07/01/24 1410) Exam: Gen alert, NAD, appears stated age, on room air Lungs clear to auscultation bilaterally Heart RRR, S1, S2 normal, no murmur Abdomen soft, non-tender. Bowel sounds normal. No masses, No organomegaly Extremities extremities normal, atraumatic, no cyanosis or edema Neuro Moving all extremities: Grossly no acute focal deficits noted. Data: I have reviewed all new labs and studies resulted and pertinent ones are noted above MRI lumbar spine: IMPRESSION: 1. Transitional vertebral anatomy noted as [...] and neural foraminal narrowing noted as described. On the day of the visit, I spent 35 minutes providing care to this patient including Preparing to see the patient, Obtaining and/or reviewing separately obtained history, Performing a medically appropriate examination and/or evaluation, Counseling and educating the patient/family/caregiver, Ordering medications, tests or procedures, Documenting clinical information in the medical record, Referring and communication with other health janitor caretaker (not separately reported), Independently interpreting results and communicating results to the patient/family/caregiver (not separately reported), and Care coordination (not separately reported). Mia Fowler MD Please contact me via [employer] Secure Chat from 7am-7pm After hours please place E-ticket to [facility] * Judy Murcia PHARMACIST - 07/02/2024 11:03 AM CDT Pharmacy Note: Vancomycin Consult Ms. Keegan Amaya is a 68 y.o. female currently in who was admitted 06/27/2024 12:46 AM. The pharmacy team is consulted for vancomycin management. Lab Results Component Value Date CREAT 0.88 06/29/2024 Lab Results Component Value Date WBC 8.7 06/29/2024 HGB 11.6 (L) 06/29/2024 HCT 39.6 06/29/2024 PLT 211 06/29/2024 Lab Results Component Value Date VANCOMYCINTR 18.7 (H) 07/02/2024 Microbiology 06/27 blood cultures x 2 - NGTD 06/28 vertebral tissue cx - pending Assessment The patient is currently receiving vancomycin 1250 mg Q12h for an indication of lumbar discitis/Osteomyelitis . Goal trough of 15-20 mcg/mL. A trough level drawn prior to the 4th dose was 18.7 mcg/ml. Estimated Creatinine Clearance: 71.8 mL/min (by C-G formula based on SCr of 0.88 mg/dL). Today is day 5 of total therapy. Kinetics Navigator: Trough Evaluation Measured trough level = 18.7 mcg/mL Estimated true trough level = 17.91 Goal trough target = 15-20 mcg/mL Plan Continue vancomycin 1250mg IV every 12 hours. ID consulted. Monitor renal function and cultures. Follow up trough as clinically indicated. Judy Murcia, PHARMACIST 07/02/2024 10:57 AM * Linda Echeverria RN - 07/02/2024 8:25 AM CDT Images from the original note were not included. Procedure, risks & benefits explained to patient, consent signed. Patient assessed for PICC placement including patient preference of left versus right upper extremity. Hand hygeine completed prior to procedure, site prepped with chlorhexidine, draped utilizing maximal sterile barrier precautions. PICC placed using lidocaine and utilizing US and MST. Confirmed tip of PICC line in SVC with ECGtechnology. Good blood return noted, flushes easily. GuardIVa antimicrobial hemostatic IV dressing applied with an occlusive sterile dressing. Tolerated procedure well. PICC placed by Dionte Barahona RN. * Rashi Moya RN - 07/01/2024 5:21 PM CDT Keegan Amaya is resting in bed, breathing on room air, VSS, NAD, oriented X4. Pain controlled with oral pain medications as needed. Fall precautions maintained. Hygiene maintained. Patient having bowel movements. Tolerating diet. Blood sugars checked prior to meals and corrected with insulin as needed. TLSO brace when up above 30 degrees. Anticipating PICC placement tomorrow. * Ly Mata RN - 07/01/2024 3:52 PM CDT Received order for PICC. Spoke to primary nurse Rashi. Patient is currently upset, cold, c/o sore throat, and wants to rest. Will plan to place PICC tomorrow. * Mia Fowler MD - 07/01/2024 12:53 PM CDT [facility] Adult Hospitalist Progress Note Admit Date: 06/27/2024 Date of Note: 07/01/2024, 12:53 PM LOS: 4 days Assessment and Plan: # Acute low back pain: # Lumbar Osteomyelitis/discitiswith epidural phlegmon: - X-ray of the spine showed Disc and endplate changes at L5-S1 region suspicious for discitis and osteomyelitis. -MRI lumbar spine concerning for Lumbar discitis/osteomyelitis with epidural phlegmon -Neurosurgery consulted, appreciate input. No indication for neurosurgical intervention per neurosurgery. - S/p IR for biopsy 06/28. -ID on board, resumed IV vancomycin and cefepime on 06/28 after biopsy. -Path reveals no malignancy and no evidence of definitive osteomyelitis. Tissue cultures no growth.Follow-up with final culture results. Blood cx 06/27 NGTD. -Continue PT/OT, fall precautions -TLSO brace. Xray in brace looks fine per NSY # HLD: -Continue home atorvastatin # Hx asthma, Emphysema: With no acute exacerbation. -Continue home Trelegy and albuterol as needed # FAISAL: -resumed CPAP # GERD: -resumed pantoprazole # Type 2 DM: - Holding home oral med. - Continue SSI. - BG well controlled # Peripheral neuropathy: -Continue gabapentin # HTN: - MANAGER SPA losartan and hydrochlorothiazide on hold # Constipation Continue bowel regimen No BM yet Add miralax daily 07/01 Nutrition: Current Diet and/or Nutritional Supplementation ordered: DIET GENERAL Effective Now Quality/Safety/Core Measures/Disposition Planning: DVT Prophylaxis - Enoxaparin, starting tomorrow PT POC OT POC Rubio catheter:absent Current Code Status -Full Code Plan discussed with patient, questions answered. Estimated Discharge Day: 07/02/2024 Current Planned Disposition - Dispo: To be determined. Subjective Previous history of present illness and review of systems have been reviewed today as documented inthe H&P on 06/27/2024; medications, labs, studies, notes, orders and consults have been reviewed. I have reviewed the notes from admission. Seen and examined this a.m. No acute events overnight Complains of sore throat and some allergies. Resumed Zyrtec 06/29 Objective BP 124/74 (BP Location: Right arm, Patient Position (BP): Sitting) Pulse 67 Temp 97.5 ??F (36.4??C) (Oral) Resp 18 Ht 5' 6 (1.676 m) Wt 122.2 kg (269 lb 6.4 oz) SpO2 98% BMI 43.48 kg/m?? Temp (24hrs), Av.8 ??F (36.6 ??C), Min:97.5 ??F (36.4 ??C), Max:98.2 ??F (36.8 ??C) Large amount stool (06/30/24 1711) Exam: Gen alert, cooperative, NAD, appears stated age, on room air Lungs clear to auscultation bilaterally Heart RRR, S1, S2 normal, no murmur Abdomen soft, non-tender. Bowel sounds normal. No masses, No organomegaly Extremities extremities normal, atraumatic, no cyanosis or edema Neuro Moving all extremities: Grossly no acute focal deficits noted. Data: I have reviewed all new labs and studies resulted and pertinent ones are noted above MRI lumbar spine: IMPRESSION: 1. Transitional vertebral anatomy noted as [...] and neural foraminal narrowing noted as described. On the day of the visit, I spent 37 minutes providing care to this patient including Preparing to see the patient, Obtaining and/or reviewing separately obtained history, Performing a medically appropriate examination and/or evaluation, Counseling and educating the patient/family/caregiver, Ordering medications, tests or procedures, Documenting clinical information in the medical record, Referring and communication with other health janitor caretaker (not separately reported), Independently interpreting results and communicating results to the patient/family/caregiver (not separately reported), and Care coordination (not separately reported). Mia Fowler MD Please contact me via [employer] Secure Chat from 7am-7pm After hours please place E-ticket to [facility] * Rashi Moya RN - 06/30/2024 2:15 PM CDT Keegan Amaya is resting in bed, breathing on room air, VSS, NAD, oriented X4. Pain controlled with oral pain medications as needed. Fall precautions maintained. Hygiene maintained. Blood sugars checked prior to meals and corrected with insulin as needed. * Ayaka Rollins PA-C - 06/30/2024 1:08 PM CDT Neurosurgery Progress Note Keegan Amaya 1955 Date of Admission: 06/27/2024 No chief complaint on file. Interval History: Reports some improvement in pain. Denies new symptoms, changes in strength or sensation. Active Hospital Problems Diagnosis FAISAL (obstructive sleep apnea) Discitis of lumbar region HLD (hyperlipidemia) Asthma GERD (gastroesophageal reflux disease) Peripheral neuropathy Osteomyelitis of lumbar spine Benign hypertension Epidural abscess Resolved Hospital Problems No resolved problems to display. Review of Systems: See HPI for pertinent positives Physical Examination: Vitals: 06/29/24 1604 06/29/24 2108 06/30/24 0426 06/30/24 0804 BP: 120/76 130/69 122/74 BP Location: Left arm Right arm Right arm Patient Position (BP): Supine Supine Supine Pulse: 86 69 (!) 59 Resp: 18 18 14 12 Temp: 98.2 ??F (36.8 ??C) 97.3 ??F (36.3 ??C) 97.3 ??F (36.3 ??C) TempSrc: Oral Oral Oral SpO2: 100% 100% 98% Weight: Height: Constitutional: Alert, awake, cooperative HEENT: atraumatic Neck: Normal appearance Respiratory: Even, unlabored Musculoskeletal: No deformities Integumentary: No rashes visible Neurological exam: Mental status: Alert, oriented, thought content appropriate Cranial nerves: PERRL, face is symmetric, tongue midline, speech intact Motor: THOMPSON FC x 4, no pronator drift Sensation: Intact to light touch Output by Drain (mL) 06/28/24699 - 06/28/24185806/28/241899 - 06/29/24 0659 06/29/24 07 - 06/29/24 18506/29/24 190 - 06/30/24 0659 06/30/24 0700 - 06/30/24 1308 Patient has no LDAs of requested type attached. Data CBC: Recent Labs 06/27/24 1431 06/29/24 0924 WBC 7.6 8.7 HGB 12.0 11.6* HCT 39.1 39.6 PLT 274 211 Chemistry: Recent Labs 06/27/24 1431 06/29/24 1410 NA 141 141 BUN 10 12 CREAT 0.63 0.88 GLUCOSE 142* 129* Coags: Recent Labs 06/27/24 1432 INR 1.1 PT 13.8 Infectious Disease: Recent Labs 06/27/24 1431 06/27/24 1444 ESR 42* -- CRP 33.8* -- BLDCULT No growth at 48 hours No growth at 48 hours [facility] Labs: CALCIUM Date Value Ref Range Status 06/29/2024 8.9 8.6 - 10.2 mg/dL Final Imaging: Results for orders placed during the hospital encounter of 06/27/24 XR LUMBAR SPINE 2 OR 3 VW Impression : 1. Stable irregular endplate changes at L4-L5 consistent with discitis/osteomyelitis. 2. Unchanged grade 1 anterolisthesis of L2-L3, L3-L4, and L4-L5. DICTATION LOCATION: Location 4 Impression: 68 y.o. female who presented with 3 months of low back pain and was found to have L4-L5 discitis/ osteomyelitis. She is neurologically intact on exam. No acute neurosurgical interventions indicated. Plan: Neuro exam-intact -Continue to monitor MRI lumbar shows L4/5 discitis/ osteomyelitis. Upright xr in brace images independently reviewed, appears stable IR bx completed, cx pending Antibiotics per ID Pain control via primary team Neurosurgery to sign off. Thank you for consulting neurosurgery. Plan for patient to follow up withDr. Fischer in 3 months with repeat upright xrays. Discharge instructions updated to reflect today's recommendations. Please call with questions. Ayaka Rollins PA-C NSGY PA Pager *For Healthcare Providers Only* (Tue- 7:30am-5pm and Tue-Tue 24 hours): [phone] NSGY After Hours Exchange: [phone] NSGY Office (Tue-Tue 8:30am-4:30pm): [phone] * Mia Fowler MD - 06/30/2024 12:37 PM CDT [facility] Adult Hospitalist Progress Note Admit Date: 06/27/2024 Date of Note: 06/30/2024, 12:37 PM LOS: 3 days Assessment and Plan: # Acute low back pain: # Lumbar Osteomyelitis/discitiswith epidural phlegmon: - X-ray of the spine showed Disc and endplate changes at L5-S1 region suspicious for discitis and osteomyelitis. -MRI lumbar spine concerning for Lumbar discitis/osteomyelitis with epidural phlegmon -Neurosurgery consulted, appreciate input. No indication for neurosurgical intervention per neurosurgery. - S/p IR for biopsy 06/28. -ID on board, resumed IV vancomycin and cefepime on 06/28 after biopsy. -Path reveals no malignancy and no evidence of definitive osteomyelitis. Tissue cultures no growth.Follow-up with final culture results. Blood cx 06/27 NGTD. -Continue PT/OT, fall precautions -TLSO brace # HLD: -Continue home atorvastatin # Hx asthma, Emphysema: With no acute exacerbation. -Continue home Trelegy and albuterol as needed # FAISAL: -resumed CPAP # GERD: -resumed pantoprazole # Type 2 DM: - Holding home oral med. - Continue SSI. - BG well-controlled # Peripheral neuropathy: -Continue gabapentin # HTN: - MANAGER SPA losartan and hydrochlorothiazide on hold # Constipation Continue bowel regimen Nutrition: Current Diet and/or Nutritional Supplementation ordered: DIET GENERAL Effective Now Quality/Safety/Core Measures/Disposition Planning: DVT Prophylaxis - Enoxaparin, starting tomorrow PT POC OT POC Rubio catheter:absent Current Code Status -Full Code Plan discussed with patient, questions answered. Estimated Discharge Day: 07/01/2024 Current Planned Disposition - Dispo: To be determined. Subjective Previous history of present illness and review of systems have been reviewed today as documented inthe H&P on 06/27/2024; medications, labs, studies, notes, orders and consults have been reviewed. I have reviewed the notes from admission. Seen and examined this a.m. No acute events overnight Complains of sore throat and some allergies. Resumed Zyrtec 06/29 Objective BP 122/74 (BP Location: Right arm, Patient Position (BP): Supine) Pulse (!) 59 Temp 97.3 ??F (36.3 ??C) (Oral) Resp 12 Ht 5' 6 (1.676 m) Wt 122.2 kg (269 lb 6.4 oz) SpO2 98% BMI 43.48 kg/m?? Temp (24hrs), Av.6 ??F (36.4 ??C), Min:97.3 ??F (36.3 ??C), Max:98.2 ??F (36.8 ??C) Small amount stool (06/30/24 1100) Exam: Gen alert, cooperative, NAD, appears stated age, on room air Lungs clear to auscultation bilaterally Heart RRR, S1, S2 normal, no murmur Abdomen soft, non-tender. Bowel sounds normal. No masses, No organomegaly Extremities extremities normal, atraumatic, no cyanosis or edema Neuro Moving all extremities: Grossly no acute focal deficits noted. Data: I have reviewed all new labs and studies resulted and pertinent ones are noted above MRI lumbar spine: IMPRESSION: 1. Transitional vertebral anatomy noted as [...] and neural foraminal narrowing noted as described. On the day of the visit, I spent 37 minutes providing care to this patient including Preparing to see the patient, Obtaining and/or reviewing separately obtained history, Performing a medically appropriate examination and/or evaluation, Counseling and educating the patient/family/caregiver, Ordering medications, tests or procedures, Documenting clinical information in the medical record, Referring and communication with other health janitor caretaker (not separately reported), Independently interpreting results and communicating results to the patient/family/caregiver (not separately reported), and Care coordination (not separately reported). Mia Fowler MD Please contact me via [employer] Secure Chat from 7am-7pm After hours please place E-ticket to [facility] * Rashi Moya, RN - 06/29/2024 3:38 PM CDT Keegan Amaya is resting in bed, breathing on room air, VSS, NAD, oriented X4. Pain controlled with oral pain medications as needed. Fall precautions maintained. Hygiene maintained. Patient voiding in bedside commode. TLSO brought by [facility]. Awaiting upright xrays. * Mia Fowler MD - 06/29/2024 7:43 AM CDT [facility] Adult Hospitalist Progress Note Admit Date: 06/27/2024 Date of Note: 06/29/2024, 7:43 AM LOS: 2 days Assessment and Plan: # Acute low back pain: # Lumbar Osteomyelitis/discitiswith epidural phlegmon: - X-ray of the spine showed Disc and endplate changes at L5-S1 region suspicious for discitis and osteomyelitis. -MRI lumbar spine concerning for Lumbar discitis/osteomyelitis with epidural phlegmon -Neurosurgery consulted, appreciate input. S/p IR for biopsy 06/28. -ID on board, resumed IV vancomycin and cefepime on 06/28 after biopsy. - follow up with bx cx results . Blood cx 06/27 NGTD. -Continue PT/OT, fall precautions # HLD: -Continue home atorvastatin # Hx asthma, Emphysema: With no acute exacerbation. -Continue home Trelegy and albuterol as needed # FAISAL: -resumed CPAP # GERD: -resumed pantoprazole # Type 2 DM: - Holding home oral med. - Continue SSI. - BG well-controlled # Peripheral neuropathy: -Continue gabapentin # HTN: -on losartan and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 brace off, and mobility was promoted through slow, progressive position changes and encouragement of independence in ADLs. * Care Plan - Selam Saeed RN - 07/09/2024 4:27 AM CDT Shift Summary Plan of care was reviewed with the patient. HYDROcodone-acetaminophen was administered for pain at 08:22 PM and 01:26 AM. Perineal area was cleansed at 11:00 PM. Patient appeared content and relaxed following pain management interventions at 02:26 AM. Patient's overall status remained stable with no significant changes in infection risk or fall risk. Pt is A/O x4, 1 assist to the BSC, WBAT. PICC line dressing changed, no BM. Appropriate behavior. Verbalizes/displays acceptable comfort level or baseline comfort level: Pain in the lower back decreased slightly from 8 to 7 after administration of HYDROcodone-acetaminophen, and the patient appeared content and relaxed following interventions to avoid unnecessary movement. Infection Risk/Actual: Infection prevention, control, or resolution by discharge: Suspected infection status remained consistently monitored throughout the shift with no changes noted. Safety/Fall: Absence of fall, injury, harm during hospitalization: High fall risk interventions were maintained, and no falls or injuries were reported during the shift. Identify discharge needs upon admission and through discharge: Plan of care was reviewed with the patient, and no new discharge needs were identified during the shift. Achieve optimal musculoskeletal function by discharge or maintain baseline function: Patient remained in bed with no weight-bearing restrictions and was encouraged to use adaptive equipment; mild generalized muscle weakness was noted. * Care Plan - Maddy Renner RN - 07/08/2024 6:15 PM CDT Patient is: A&O 4 Pain Range/Score during the shift: 0-9 Medication that have helped or need to be changed: all medications working at this time Void or Bowel Movement: void per bsc, no bm this shift Dressing: none Diet Tolerated: regular, accuchecks discontinued this shift Skin Concerns: no new concerns Behaviors: calm, cooperative, pleasant Activity: x1 assist Discharge: pending, awaiting placement Patient has remained free of falls this shift. Patient is stable and resting comfortably. Shift Summary HYDROcodone-acetaminophen was administered for pain, resulting in the patient appearing content andrelaxed cyclobenzaprine was administered PRN for spasm Lidocaine was administered Overall, the patient maintained stable gastrointestinal, genitourinary, musculoskeletal, and peripheral neurovascular functions throughout the shift Verbalizes/displays acceptable comfort level or baseline comfort level: Pain at rest was rated 8 and during activity was rated 10; after intervention with HYDROcodone-acetaminophen, the patient appeared content and relaxed . Achieve optimal gastrointestinal function by discharge or maintain baseline function: Gastrointestinal assessments showed no changes throughout the shift, indicating stable function . Achieve optimal genitourinary and renal function by discharge or maintain baseline function: Urine remained yellow and clear with large amounts voided, indicating stable genitourinary function . Achieve optimal musculoskeletal function by discharge or maintain baseline function: The patient was able to get up to the bedside commode with assistance and returned to bed, showing maintained musculoskeletal function . Achieve optimal peripheral neurovascular function by discharge or maintain baseline function: Peripheral neurovascular assessments showed no changes, and interventions included elevating the affectedextremity and protecting it from injury . * Care Plan - Maddy Renner RN - 07/07/2024 6:38 PM CDT Patient is: A&O 4 Pain Range/Score during the shift: 0-9 Medication that have helped or need to be changed: cyclobenzaprine added this shift, pt verbalized additional relief Void or Bowel Movement: void and bm per bsc Dressing: none Diet Tolerated: regular Skin Concerns: no new concerns Behaviors: calm, cooperative, pleasant Activity: x1 assist Discharge: pending placement Patient has remained free of falls this shift. Patient is stable and resting comfortably. Shift Summary Pain level decreased significantly after administration of HYDROcodone- acetaminophen, with the patient verbalizing relief and appearing content/relaxed Ambulated with assistance to the bedside commode and back to bed, indicating maintained musculoskeletal function Moderate amount of urine output was noted, indicating maintained baseline genitourinary function Overall, the patient maintained baseline functions and showed improvement in pain management Verbalizes/displays acceptable comfort level or baseline comfort level: Pain level decreased from 9to a content/relaxed state after administration of HYDROcodone-acetaminophen at 10:38 AM and 11:08 AM . Achieve optimal genitourinary and renal function by discharge or maintain baseline function: Moderate amount of urine output was noted at 3:00 PM, indicating maintained baseline function . Achieve optimal musculoskeletal function by discharge or maintain baseline function: Ambulated withassistance to the bedside commode and back to bed, showing maintained musculoskeletal function . * Care Plan - Catalina Flores RN - 07/07/2024 7:32 AM CDT Shift Summary Pt c/o 5/10 pain to back. [place] administered for pain. Patient ambulated with gait belt and ambulation device, demonstrating improved mobility. Patient had a large bowel movement, indicating maintained gastrointestinal function. Voiding per BSC, indicating maintained genitourinary function. Overall, the patient showed progress in pain management, mobility, and maintained gastrointestinal and genitourinary functions. Achieve optimal gastrointestinal function by discharge or maintain baseline function: Gastrointestinal function remained within defined limits, with a large amount of brown stool passed. Pt c/o gas pains. Simethicone administered per protocol. Achieve optimal genitourinary and renal function by discharge or maintain baseline function: Moderate amount of urine voided, indicating maintained genitourinary function. Achieve optimal musculoskeletal function by discharge or maintain baseline function: Patient demonstrated strong hand library media assistant and ankle strength, with purposeful motor responses and no drift in leg strength. Achieve optimal nutrition and fluid status to meet metabolic needs throughout hospitalization: Patient ate normally, maintaining adequate nutrition. Problem: Pain, Potential/Actual Goal: Verbalizes/displays acceptable comfort level or baseline comfort level Description: Outcome: Shift Focus Problem: Infection Risk/Actual Goal: Infection Risk/Actual: Infection prevention, control, or resolution by discharge Description: Outcome: Shift Focus Problem: Safety/Fall Goal: Safety/Fall: Absence of fall, injury, harm during hospitalization Description: Absence of/reduce fall risk during current hospitalization related to: 1. History of falls 2. Mobility deficits 3. Medications 4. Mental status/LOC/awareness 5. Toileting needs 6. Volume/electrolyte status 7. Communication/sensory 8. Behavior Outcome: Shift Focus Problem: Gastrointestinal Goal: Achieve optimal gastrointestinal function by discharge or maintain baseline function Outcome: Shift Focus Problem: Genitourinary/Renal Goal: Achieve optimal genitourinary and renal function by discharge or maintain baseline function Outcome: Shift Focus Problem: Musculoskeletal Goal: Achieve optimal musculoskeletal function by discharge or maintain baseline function Outcome: Shift Focus Problem: Nutrition/Endocrine Goal: Achieve optimal nutrition and fluid status to meet metabolic needs throughout hospitalization Outcome: Shift Focus * Care Plan - Catalina Flores RN - 07/07/2024 12:16 AM CDT Images from the original note were not included. [facility] Adult Therapeutic Orders Protocol [facility] Approved by: [facility] - Medical Executive Committee Approval Date: 09/01/2023 ORDERS ARE ENTERED ???PER PROTOCOL?? Enter the protocol in the patient's electronic health record using smartphrase:.nursingtheraputicordersprotocol For adult inpatients with complaints of minor discomfort Nursing Orders: [id number] Ice Pack/Cold Therapy 20 minutes every 2 hours to affected area. [id number] Warm Compress/Heat to affected area 20 minutes every 8 hours to affected area. EXCEPTION: Heat used for comfort alone (i.e.: warmed blanket from a temperature controlled cabinet)or for warming an extremity for venipuncture no order is needed. Medication Orders: Docusate sodium (COLACE) capsule 100 mg, Oral two times daily for stool softening except for patients with diagnosed or rule-out bowel obstruction. calcium carbonate (TUMS) chewable tablet. 400mg, Oral every 4 hours PRN for heartburn. simethicone (MYLICON) tablet. 160 mg Oral four times daily PRN for gas. Neomycin-Bacitracin Zn-Polymyxin (NEOSPORIN) topical ointment. 1 packet, One Time to affected area.For minor scraps/abrasions. Use cover dressing as needed. Polyvinyl alcohol-povidon(PF) (REFRESH CLASSIC) 1.4-0.6% ophthalmic solution. 1 drop to affected eye every 4 hours PRN for dry eye. Sodium chloride (OCEAN) 0.65% nasal solution. 2 sprays to affected nostril every 15 minutes PRN forcongestion. If symptoms persist or worsen contact provider for further orders * Care Plan - Maddy Renner RN - 07/06/2024 5:03 PM CDT Patient is: A&O 4 Pain Range/Score during the shift: 0-6 Medication that have helped or need to be changed: all medications working at this time Void or Bowel Movement: void per bsc, no bm this shift Dressing: none Diet Tolerated: regular Skin Concerns: no new concerns Behaviors: calm, cooperative, pleasant Activity: x1 with walker/gait belt Discharge: pending placement, see care management note Patient has remained free of falls this shift. Patient is stable and resting comfortably. Shift Summary Pain was reported as 6/10 at rest and HYDROcodone-acetaminophen was administered, leading to verbalized relief and a content/relaxed appearance Urine remained yellow and clear throughout the shift, with large amounts voided The patient ambulated with assistive devices and was up in the room, bathroom, and chair Overall, the patient showed progress in pain management and mobility Verbalizes/displays acceptable comfort level or baseline comfort level: Pain was initially denied but later reported as 6/10 at rest; HYDROcodone-acetaminophen was administered, and the patient verbalized relief and appeared content and relaxed afterward . Achieve optimal gastrointestinal function by discharge or maintain baseline function: The patient ate breakfast normally but declined lunch, resulting in 0% intake at noon . Achieve optimal genitourinary and renal function by discharge or maintain baseline function: Urine remained yellow and clear throughout the shift, with large amounts voided . Achieve optimal musculoskeletal function by discharge or maintain baseline function: The patient was initially in bed but later ambulated with assistive devices and was up in the room, bathroom, and chair . * Care Plan - Portia Lynne RN - 07/06/2024 4:16 PM CDT Director Private Discharge Planning Expected Discharge Date Jul 06, 2024 Plan Discharge To: Home Health Services;Inpatient Rehab Facility (06/27/24 1712) Acute rehab denied and appeal denied. Plan for SNF-no accepting, no bed available. Patient worked with therapy today really well. Possible discharge plan to home with HHC and IV infusion if patient continues to progress with no accepting SNF. Referrals Status: Facility Referrals - Accepted Home Health/Hospice - Pending Dialysis/Infusion - Accepted Preferred Pharmacy: [id number] - [place], [place] - [address] Patient / Family Communications CM spoke with patient on the phone and patient's son x2. CM continues to follow up with SNF referrals and therapy recommendations. [facility] came today and adjusted patient's brace. Patient now much more comfortable. Resources Provided Transportation Plan family vs EMS Portia Lynne RN Problem: Discharge Planning Goal: Identify discharge needs upon admission and through discharge Description: 07/06/2024 1358 by Portia Lynne RN Outcome: Progressing * Care Plan - Portia Lynne RN - 07/06/2024 3:07 PM CDT CM received a call back from Kriss/DAVID from [facility] and [facility]. Kriss stated that the patient is approved for SNF and will just need to find an accepting facility and Dominick did confirm that [facility] does take [facility], they just do not have bed availability until next week. CM followed up with SNF referrals by calling César at [facility], no beds until next week, [facility]-looking over referral and will call back, Leena Edwards at [facility]-left message,left message for Bhavana Garcia/Jessie Adams Jun Levin left message for Dipti Mccracken. Portia Lynne RN, BSN Quantitative Associate [id number] Problem: Discharge Planning Goal: Identify discharge needs upon admission and through discharge Description: 07/06/2024 1358 by Portia Lynne RN Outcome: Progressing * Care Plan - Catalina Ford, Occupational Therapist - 07/06/2024 2:18 PM CDT Problem: Self-Care Deficit Goal: Self care goal: Improve dressing ability by discharge Description: Patient will require modified independence with lower extremity dressing with adaptiveequipment/techniques. Outcome: Progressing Flowsheets (Taken 07/06/2024 155) Assistive Devices Screening: Gait belt Walker Assistive Devices Used: Gait belt Ambulation device Present Activity: ambulating up in room up in bathroom up to chair Physical Assist/Nonphysical Assist: w/ 1 person assist Recommend: Home with Home Health OT (07/06/24 245) Recommendations were made on today's assessment. Additional recommendations will be based on patient's progress in therapy. Equipment Recommended at discharge: To be determined (07/06/24 745) Additional Adaptive Equipment Recommended: Hip Kit (07/06/24 7589) S: Patient agrees to therapy. Patient is seated on bed side commode with nursing present and no c/opain upon therapist arrival. O: Cognition/ Perception: Alert and oriented x 4. Pt is pleasant and conversational and able to follow multi-step commands with good attention throughout session. Skin Integrity: See EMR Weight Bearing: No restrictions Precautions: Fall; No BLT, TLSO (upright in bed, up in chair, ambulating) FUNCTIONAL ACTIVITIES Grooming: Close stand by assist standing at sink with walker to wash face and perform hand hygiene d/t decreased activity tolerance LE Dressing: Independent threading underwear onto gi LEs seated on shower chair with verbal cues for technique with upholstery repairer, Min A standing to manage underwear over hips with walker Toilet Transfer: Min A EOB <> bed side commode without device Toilet Hygiene: Dependent to complete iman care seated on bed side commode d/t TLSO Functional mobility: Min A sit <> stand with walker for force production with verbal cues forhand placement. Min A functional mobility <> bathroom with walker d/t decreased activity tolerance. Good balance during functional mobility. [facility] AM-PAC Daily Activity How much help from another person does the patient currently need? Score 1. Putting on and taking off regular lower body clothing? 3 - A little (supervision to min assist) 2. Bathing (including washing, rinsing, drying)? 2 - A lot (max to mod assist) 3. Toileting, which includes using toilet, bedpan or urinal? 3 - A little (supervision to min assist) 4. Putting on and taking off regular upper body clothing? 2 - A lot (max to mod assist) 5. Taking care of personal grooming such as brushing teeth? 3 - A little (supervision to min assist) 6. Eating meals? 4 - None (independent) Total score 17/24 Scale: 1 - Total - requires total assistance, or cannot do at all 2 - A lot - requires a lot of help (max to mod assist), can use assistive devices 3 - A little - requires a little help (supervision, min assist) can use assistive devices 4 - None - does not require any help and does the activity independently, can use assistive devices Education: Patient was educated on purpose of OT, OT plan of care, ADL, functional transfers, use of adaptive equipment, and safety. Positioning after tx: Pt is resting in recliner, chair alarm on, call light and phone within reach,RN notified. A: Response to treatment: Pt is progressing well towards goals. P: Continue 2-5x/wk at bedside for: ADL Training, Functional Mobility Training, Patient Education unless change in status or patient is discharged from the facility. Plan of Care developed, as indicated by OT assessment and patient's current status. Please refer to plan of care for updates on goals. Zone #: [id number] * Care Plan - Portia Lynne RN - 07/06/2024 12:08 PM CDT VERONICA received a decline in the computer from [facility] that facility is full. CM called [facility] and left a message to please call back. CM sent out more SNF referrals [facility] [place] [id number] [place]. CM will call and follow up on acceptance and bed availability. CM also called patient [employer] insurance and left a message for Kriss Schuster/UR at [phone] to please call back. Portia Lynne RN, BSN Quantitative Associate [id number] Problem: Discharge Planning Goal: Identify discharge needs upon admission and through discharge Description: Outcome: Progressing * Care Plan - Lori Fischer RN - 07/05/2024 6:43 PM CDT AWake and alert. Sat up in recliner today. Tranfers with assist of one. Has not needed any insulin today per sliding scale. She states her brace is uncomfortable and does not want to wear it long. Pleasant mood. * Care Plan - Enedina Lucero, Beverage Steward - 07/05/2024 1:19 PM CDT Problem: Physical Mobility, Impaired Goal: Mobility goal: Improve transfer ability by discharge Description: Patient will transfer sit<>supine and bed<>chair with modified independence. Outcome: Progressing Goal: Mobility goal: Improve ambulation by discharge Description: Patient will ambulate 150 feet on level surface, using rolling walker assistive device, with modified independence so patient can navigate discharge environment. Outcome: Progressing Flowsheets (Taken 07/05/20241318) Shira: X Location: back leg Pain Rating: Rest: 0 Pain Rating: Activity: 8 Pain Management Interventions: unnecessary movement avoided positioning Response to Interventions: content/relaxed Assistive Devices Screening: Gait belt Front wheeled walker Transfer pad Assistive Devices Used: Gait belt Ambulation device Present Activity: in bed back to bed standing active range of motion performed dangled at bedside Physical Assist/Nonphysical Assist: w/ 1 person assist Total Treatment Time (min): 53 PT Current Discharge Recommendation: Post acute care Will tolerate 3 hours of therapy PT Recommended DME: To be determined PT Treatment Start Time: 1319 PT Treatment Stop Time: 1412 Recommend: Post acute care;Will tolerate 3 hours of therapy (07/05/24 131) Recommendations were made on today's assessment. Additional recommendations will be based on patient's progress in therapy. Equipment to be issued at discharge: DME: To be determined (07/05/24 131) S: Patient agreeable to therapy. Patient in supine position HOB elevated upon arrival talking on the phone. Patient denies pain of back and LLE at rest prior to treatment and 8/10 upon movement. Patient verbalized my back hurts and my left leg goes to my foot when in pain and its throbbing . Per ARACELIS Sandoval patient is appropriate for therapy. O: Cognition/ Perception: Alert and oriented x 4. Patient is pleasant and cooperative, able to follow all commands without difficulty. Patient moves slow due to pain on back. Weight Bearing: No restrictions Skin Integrity: TLSO Precautions: Fall, No bending, lifting, twisting, TLSO when OOB Exercises: Bilateral LE AROM x 10 reps, sitting Type: Sitting exercises: hip flexion, hip abduction/adduction, gluteal sets, ankle pumps --LE exercises performed to increase ROM, increase strength, increase muscular endurance, prevent loss of joint mobility to promote independence with functional mobility and gait. Therapist providingnecessary assistance and/or cueing for proper mechanics and symptom management. MOBILITY ASSESSMENT Bed Mobility: Log Rolling L-R min-mod assist of 1 for trunk lifting and LE side- lying for donning of bra and TLSO. Supine <-> sit min assist of 1 for trunk lifting, BLE lowering/lifting. Scooting at EOB min assist of 1 for foot flat contact on floor and hip alignment on EOB. Sitting at EOB min assist of 1 for trunk steadying, balance and symptom management progressing to SBA. Scooting to HOB min assist of 1 for BLE placement, providing feet support planted on bed for gluts bridging to scoot but only performed minimal scooting, needing max assist of 2 to boost to HOB. Verbal and tactile cues for use of bedrail for UE support, hand placement and keeping trunk upright. Transfers: Sit <-> stand on EOB x 1 with WWR, min assist of 1 for force production, slow lowering, trunk steadying, symptom management. Verbal and tactile cues for keeping trunk upright, hand placement, WWR handling, rocking forward to gain momentum to ascend and slow controlled descent on EOB. Balance: Good static/ dynamic Sitting balance on EOB performing sitting exercises and TLSO alignment Fair static/ dynamic Standing balance on WWR, lateral weight-shifting L-R x 2 for pain relief on foot, min assist for trunk steadying ADL : TLSO donning and alignment, donning/doffing of socks, donning and doffing of bra all dependent Gait: patient politely declined after standing trial due to increasing back pain and radiating to left leg and discomfort from TLSO. Patient just ate lunch and did not like the TLSO restricting chestarea. Stairs: deferred, patient did not ambulate this session. [facility] AM-PAC Basic Mobility How much help from another person does the patient currently need? Score 1. Turning from your back to your side while in a flat bed without using bedrails? 3 - A little (supervision to min assist) 2. Moving from lying on your back to sitting on the side of a flat bed without using bedrails? 3 - A little (supervision to min assist) 3. Moving to and from a bed to a chair (including a wheelchair)? 3 - A little (supervision to min assist) 4. Standing up from a chair using your arms (e.g., wheelchair, or bedside chair)? 3 - A little (supervision to min assist) 5. Walking in hospital room? 3 - A little (supervision to min assist) 6. Climbing 3-5 steps with a railing? 1 - Total assist or cannot do at all Total score 16/24 Scale: 1 - Total - requires total assistance, or cannot do at all 2 - A lot - requires a lot of help (max to mod assist), can use assistive devices 3 - A little - requires a little help (supervision, min assist) can use assistive devices 4 - None - does not require any help and does the activity independently, can use assistive devices Education: Patient educated on benefits of PT, exercise, gait, transfers, no BLT, TLSO donning and alignment, importance of functional mobility. Patient verbalized understanding. Other: Patient alone in the room. Patient tolerated treatment well despite in pain. Patient is displeased with TLSO fit and reports that it is uncomfortable and not correct fitting. Patient discussedthat when TLSO was custom fitted, patient was not wearing bra on and therefore its not the right fit. This author explained to patient that TLSO should be tight and aligned properly for comfort, patient need 1-2 people to assist in donning. Patient moved very slow due to pain and increased time given to allow patient to achieve max potential. Positioning after tx: Patient left in supine position on the bed, HOB elevated, both legs elevated,pillow under, heels floated. Pillow tucked under patient left hip for comfort. Bed alarm activated with waffle cushions. All personal belongings within reach including call light, all lines intact. A: Response to treatment: Progressing towards goals, Assessment Ongoing P: Continue PT 2-5x/wk at bedside for Transfer training, Gait training, Exercises, Balance training, unless change in status or patient is discharged from the facility. Plan of Care developed, as indicated by PT assessment and patient's current status. Additional Discharge Information: None at this time. Please refer to plan of care for updates on goals. Zone #: [id number] * Care Plan - Portia Lnyne RN - 07/05/2024 11:00 AM CDT Qian from [facility] called and stated acute rehab appeal had been denied. CM talked with patient at the bedside and patient aware of acute rehab appeal. CM told patient that the 5 start SNF's in [place] have been called and referrals sent. CM is waiting for a call back. Patient agreeable to sent out a few referrals close to the hospital, [facility] incase SNF's in [place] cannot accept her. CM will sent out some SNF referrals near [facility]. ADDENDUM 1600: Patient's son and daughter called CM for an update and to see if [facility] can take a look at patient's brace. Patient is complaining of brace too long in the front when sitting upright.CM made Floor RN and MD aware. CM called [facility] and Gladys states they do not have any bed availability until possibly next week sometime. CM called [facility]omin[facility]/Adm and she stated they m ay have a bed tomorrow open up and requested the referral to be faxed to [phone]. The y fax# in the computer goes to the RN station. CM sent another referral and will follow up tomorrow. Portia Lynne RN, BSN Quantitative Associate [id number] Problem: Discharge Planning Goal: Identify discharge needs upon admission and through discharge Description: 07/05/2024 0916 by Portia Lynne RN Outcome: Progressing * Care Plan - Portia Lynne RN - 07/05/2024 9:17 AM CDT CM received phone call from Radha/daughter. updated Radha that Mary Lou from [facility] has started/sent the expedited appeal yesterday afternoon. has called [facility]/adm/Dominick and [facility]/adm/Gladys and left messages to call back with bed availability and acceptance. CM explained that once patient has an accepting SNF, patient can discharge to SNF while waiting for expedited appeal. Daughter verbalized understanding. Portia Lynne RN, BSN Quantitative Associate [id number] Problem: Discharge Planning Goal: Identify discharge needs upon admission and through discharge Description: Outcome: Progressing * Therapy Treatment - Enedina Lucero, Beverage Steward - 07/05/2024 9:15 AM CDT Patient not seen for PT secondary to unavailability for 2 attempts. 1st attempt, OT was in the roomwith the patient. 2nd attempt at 9:39am RN in the room assisting patient. Will continue to follow patient and will re-attempt as time allows. Thank you. Zone #: [id number] * Care Plan - Lizz Cardona, Division Operations Manager - 07/05/2024 8:42 AM CDT Problem: Physical Mobility, Impaired Goal: Mobility goal: Improve transfer ability by discharge Description: Patient will transfer to/from toilet with modified independence. Outcome: Progressing Flowsheets (Taken 07/05/2024 1138) Therapy Comments: APOORVA Thur: X Location: back Pain Rating: Rest: 4 Pain Rating: Activity: 5 Pain Management Interventions: unnecessary movement avoided positioning relaxation Response to Interventions: content/relaxed Assistive Devices Screening: Walker Gait belt Assistive Devices Used: Gait belt Ambulation device Present Activity: in bed Physical Assist/Nonphysical Assist: w/ 1 person assist Total Treatment Time (min): 48 OT Current Discharge Recommendation: Post acute care Will tolerate 3 hours of therapy OT Recommended DME: To be determined OT Treatment Start Time: 841 OT Treatment Stop Time: 929 Additional Recommended Adaptive Equipment: Hip Kit Drilling Superintendent Problem: Self-Care Deficit Goal: Self care goal: Improve ability to perform self care activities by discharge Description: Patient will require modified independence with grooming/bathing with adaptive equipment/techniques. Outcome: Progressing Goal: Self care goal: Improve dressing ability by discharge Description: Patient will require modified independence with lower extremity dressing with adaptiveequipment/techniques. Outcome: Progressing Flowsheets Taken 07/05/20241137 by Lizz Cardona Division Operations Manager Therapy Comments: APOORVA Goodwin: X Location: back Pain Rating: Rest: 4 Pain Rating: Activity: 5 Pain Management Interventions: unnecessary movement avoided positioning relaxation Response to Interventions: content/relaxed Assistive Devices Screening: Walker Gait belt Assistive Devices Used: Gait belt Ambulation device Present Activity: in bed Physical Assist/Nonphysical Assist: w/ 1 person assist Total Treatment Time (min): 48 OT Current Discharge Recommendation: Post acute care Will tolerate 3 hours of therapy OT Recommended DME: To be determined OT Treatment Start Time: 841 OT Treatment Stop Time: 929 Additional Recommended Adaptive Equipment: Hip Kit Drilling Superintendent Therapy Plan of Care: 2-5x/week Recommend: Post acute care;Will tolerate 3 hours of therapy (07/05/24 1138) Recommendations were made on today's assessment. Additional recommendations will be based on patient's progress in therapy. Equipment Recommended at discharge: To be determined (07/05/241137) Additional Adaptive Equipment Recommended: Hip Kit;Drilling Superintendent (07/05/24 1138) S: Patient agrees to therapy. Pt was laying in bed with Nurse student upon OT arrival. O: Cognition/ Perception: Alert and oriented x 4, Cooperative, followed simple commands. Skin Integrity: IV, No other signs of skin breakdown noted. Weight Bearing: No restrictions noted. Precautions: Fall; No Bending, twisting, or lifting; TSLO FUNCTIONAL ACTIVITIES Grooming: Pt completed grooming tasks of brushing teeth, combing hair, and washing face while seated at sink requiring close SBA with extended time to complete all tasks. Pt unable to complete grooming tasks standing at sink due to weakness in LE's. UE Dressing: Min A to don bra while seated EOB, with assistance required for attaching in the back.Min A to doff bra while supine in bed, with assistance needed for unhooking the back. Max A x1 to don/doff TLSO while supine in bed utilizing log roll technique, with assistance required to place brace and secure. Pt rolled side to side using bed rails with SBA. LE Dressing: Close SBA don socks BLE while seated at EOB using sock aid requiring extra time to complete task. Max A to doff socks BLE while supine. Toilet Transfer: Simulated, min A for force production with wwr. Functional mobility: Min A supine to sit at EOB 2x utilizing log roll technique and bed rails, withassistance required for trunk elevation and BLE support. SBA for sitting edge of bed. Min A sit to stand from EOB with wwr. Pt ambulated 10ft x2 within room to sink and back to EOB using wwr requiring Min A. Min A stand to sit onto chair. Pt required a seated rest break while completing grooming tas ks. Min A sit to stand from chair using wwr. Mod A sit to supine with assistance required for both LE elevation and controlled trunk descent. Max A x2 for scooting towards head of bed. [facility] AM-PAC Daily Activity How much help from another person does the patient currently need? Score 1. Putting on and taking off regular lower body clothing? 3 - A little (supervision to min assist) 2. Bathing (including washing, rinsing, drying)? 2 - A lot (max to mod assist) 3. Toileting, which includes using toilet, bedpan or urinal? 2 - A lot (max to mod assist) 4. Putting on and taking off regular upper body clothing? 3 - A little (supervision to min assist) 5. Taking care of personal grooming such as brushing teeth? 3 - A little (supervision to min assist) 6. Eating meals? 4 - None (independent) Total score 17/24 Scale: 1 - Total - requires total assistance, or cannot do at all 2 - A lot - requires a lot of help (max to mod assist), can use assistive devices 3 - A little - requires a little help (supervision, min assist) can use assistive devices 4 - None - does not require any help and does the activity independently, can use assistive devices Education: ADLs, Functional Mobility, Bath Transfers, Safety Awareness Positioning after tx: Pt positioned laying in bed with bed alarm on, call light and items within reach. RN notified. A: Response to treatment: Pt progressing towards goals. P: Continue 2-5x/wk at bedside for: ADL Training, Functional Mobility Training, UE ROM/Strengthening, Patient Education, Cognition/Perception unless change in status or patient is discharged from [facility]. Plan of Care developed, as indicated by OT assessment and patient's current status. Additional Discharge Information: none Please refer to plan of care for updates on goals. Zone #: [id number] * Care Plan - Portia Lynne RN - 07/04/2024 9:25 AM CDT CM received phone call from Radha/daughter and spoke with Mary Lou/Willie /liaison in person. Authorization denied, Mary Lou is speaking with patient and sending an expedited appeal today. CM will follow up with back up SNF options. Portia Lynne RN, BSN Quantitative Associate [id number] Problem: Discharge Planning Goal: Identify discharge needs upon admission and through discharge Description: 07/05/2024 0916 by Portia Lynne RN Outcome: Progressing * Care Plan - Suly Stevens RN - 07/04/2024 3:17 AM CDT Problem: Pain, Potential/Actual Goal: Verbalizes/displays acceptable comfort level or baseline comfort level Description: Outcome: Progressing Problem: Infection Risk/Actual Goal: Infection Risk/Actual: Infection prevention, control, or resolution by discharge Description: Outcome: Progressing Problem: Safety/Fall Goal: Safety/Fall: Absence of fall, injury, harm during hospitalization Description: Absence of/reduce fall risk during current hospitalization related to: 1. History of falls 2. Mobility deficits 3. Medications 4. Mental status/LOC/awareness 5. Toileting needs 6. Volume/electrolyte status 7. Communication/sensory 8. Behavior Outcome: Progressing Problem: Discharge Planning Goal: Identify discharge needs upon admission and through discharge Description: Outcome: Progressing Problem: Respiratory Goal: Achieve optimal respiratory function by discharge and/or maintain baseline function Outcome: Progressing Problem: Gastrointestinal Goal: Achieve optimal gastrointestinal function by discharge or maintain baseline function Outcome: Progressing Problem: Genitourinary/Renal Goal: Achieve optimal genitourinary and renal function by discharge or maintain baseline function Outcome: Progressing Problem: Musculoskeletal Goal: Achieve optimal musculoskeletal function by discharge or maintain baseline function Outcome: Progressing Problem: Skin Goal: Maintain skin integrity and/or promote wound healing by discharge Outcome: Progressing Problem: Nutrition/Endocrine Goal: Achieve optimal nutrition and fluid status to meet metabolic needs throughout hospitalization Outcome: Progressing Problem: Physical Mobility, Impaired Goal: Mobility goal: Improve transfer ability by discharge Description: Patient will transfer to/from toilet with modified independence. Outcome: Progressing Problem: Self-Care Deficit Goal: Self care goal: Improve ability to perform self care activities by discharge Description: Patient will require modified independence with grooming/bathing with adaptive equipment/techniques. Outcome: Progressing Goal: Self care goal: Improve dressing ability by discharge Description: Patient will require modified independence with lower extremity dressing with adaptiveequipment/techniques. Outcome: Progressing Problem: Self-Care Deficit Goal: Self care goal: Improve dressing ability by discharge Description: Patient will require moderate assistance with upper extremity dressing with adaptive techniques. Outcome: Progressing Problem: Physical Mobility, Impaired Goal: Mobility goal: Improve transfer ability by discharge Description: Patient will transfer sit<>supine and bed<>chair with modified independence. Outcome: Progressing Goal: Mobility goal: Improve ambulation by discharge Description: Patient will ambulate 150 feet on level surface, using rolling walker assistive device, with modified independence so patient can navigate discharge environment. Outcome: Progressing Problem: Peripheral Neurovascular Goal: Achieve optimal peripheral neurovascular function by discharge or maintain baseline function Outcome: Progressing * Care Plan - Lori Fischer RN - 07/03/2024 5:51 PM CDT Shift Summary Patient's pain was effectively managed with medication and interventions, and she was able to ambulate with assistance. Overall, the patient is progressing well towards discharge with maintained musculoskeletal function and skin integrity. Verbalizes/displays acceptable comfort level or baseline comfort level: Patient's pain fluctuated throughout the shift, initially reporting high pain levels which were managed with medication and interventions, resulting in a pain-free state by the end of the shift . Safety/Fall: Absence of fall, injury, harm during hospitalization: Patient remained safe with no falls or injuries reported during the shift, and safety checks were consistently completed . Achieve optimal musculoskeletal function by discharge or maintain baseline function: Patient maintained strong hand highway construction inspector and ankle strength, ambulated 40 feet with assistive devices, and required one-person assist for transfers . Maintain skin integrity and/or promote wound healing by discharge: Patient's skin remained within defined limits with no changes noted upon reassessment, and hygiene care was consistently provided . * Care Plan - Lois Alonso, Occupational Therapist - 07/03/2024 4:40 PM CDT Problem: Physical Mobility, Impaired Goal: Mobility goal: Improve transfer ability by discharge Description: Patient will transfer to/from toilet with modified independence. Outcome: Progressing Problem: Self-Care Deficit Goal: Self care goal: Improve ability to perform self care activities by discharge Description: Patient will require modified independence with grooming/bathing with adaptive equipment/techniques. Outcome: Progressing Goal: Self care goal: Improve dressing ability by discharge Description: Patient will require modified independence with lower extremity dressing with adaptiveequipment/techniques. Outcome: Progressing Problem: Self-Care Deficit Goal: Self care goal: Improve dressing ability by discharge Description: Patient will require moderate assistance with upper extremity dressing with adaptive techniques. Outcome: Progressing Flowsheets Taken 07/03/2024 1640 by Lois Alonso, Occupational Therapist Therapy Comments: 07/03: TLSO Tue: X Location: back Pain Rating: Rest: 0 Pain Rating: Activity: 5 Pain Management Interventions: unnecessary movement avoided positioning Response to Interventions: content/relaxed Present Activity: in bed Physical Assist/Nonphysical Assist: w/ 1 person assist Total Treatment Time (min): 35 OT Current Discharge Recommendation: Post acute care Will tolerate 3 hours of therapy OT Recommended DME: To be determined OT Treatment Start Time: 1640 OT Treatment Stop Time: 1715 Additional Recommended Adaptive Equipment: Hip Kit Long handled sponge Taken 07/01/2024 1340 by Klaudia Chávez, Occupational Therapist Therapy Plan of Care: 2-5x/week Recommend: Post acute care;Will tolerate 3 hours of therapy (07/03/24 1640) Recommendations were made on today's assessment. Additional recommendations will be based on patient's progress in therapy. Equipment Recommended at discharge: To be determined (07/03/24 1640) Additional Adaptive Equipment Recommended: Hip Kit;Long handled sponge (07/03/24 1640) S: Patient agrees to therapy. Patient supine in bed upon OT arrival. Patient reported no pain at rest and 5/10 pain with activity- RN notified. O: Cognition/ Perception: Alert and oriented x 4; patient follows commands, adheres to no bending/lifting/twisting precautions with minimal verbal cueing, good safety awareness, pleasant Skin Integrity: No skin breakdown observed at this time Weight Bearing: No restrictions listed Precautions: Fall; no bending/lifting/twisting; TLSO FUNCTIONAL ACTIVITIES Grooming: Did not assess on this date due to patient politely declining need to perform. UE Dressing: Min A to don bra while seated edge of bed, with assistance required for attaching in the back. Min A to doff bra while supine in bed, with assistance needed for unhooking the back. Mod Ax2 to don/doff TLSO while supine in bed utilizing log roll technique, with assistance required to place brace and secure. LE Dressing: Educated patient on sock aid and upholstery repairer to use for lower body dressing. Min A to doffsocks while sitting edge of bed using upholstery repairer, with assistance required for getting Left sock over heel and moderate verbal cueing for sequencing. Min A to don socks while sitting edge of bed using sock aid, with assistance required for pulling socks the rest of the way up calves and minimal verbalcueing for sequencing. Toilet Transfer: Did not assess on this date due to patient declining need to use toilet. Functional mobility: Min A for supine > sitting edge of bed 3x utilizing log roll technique, with assistance required for trunk elevation, Left UE support, Right UE use of bed rails, and moderate verbal cues for sequencing. SBA for sitting edge of bed. Min A x2 for sitting edge of bed > supine 3x, with assistance required for both LE elevation and controlled trunk descent. Max A x2 for scooting towards head of bed. [facility] AM-PAC Daily Activity How much help from another person does the patient currently need? Score 1. Putting on and taking off regular lower body clothing? 3 - A little (supervision to min assist) 2. Bathing (including washing, rinsing, drying)? 2 - A lot (max to mod assist) 3. Toileting, which includes using toilet, bedpan or urinal? 2 - A lot (max to mod assist) 4. Putting on and taking off regular upper body clothing? 3 - A little (supervision to min assist) 5. Taking care of personal grooming such as brushing teeth? 2 - A lot (max to mod assist) 6. Eating meals? 3 - A little (supervision to min assist) Total score 15/24 Scale: 1 - Total - requires total assistance, or cannot do at all 2 - A lot - requires a lot of help (max to mod assist), can use assistive devices 3 - A little - requires a little help (supervision, min assist) can use assistive devices 4 - None - does not require any help and does the activity independently, can use assistive devices Education: Ot plan of care, purpose of OT, bending/lifting/twisting precautions Positioning after tx: Patient supine in bed, bed alarm on, phone and call light within reach, RN notified. A: Response to treatment: Patient tolerated today's session well and is progressing towards therapygoals. P: Continue 2-5x/wk at bedside for: ADL Training, Functional Mobility Training, UE ROM/Strengthening, Patient Education, Cognition/Perception unless change in status or patient is discharged from [facility]. Plan of Care developed, as indicated by OT assessment and patient's current status. Additional Discharge Information: N/A Please refer to plan of care for updates on goals. Zone #: [id number] * Care Plan - Adolfo Jeronimo, Beverage Steward - 07/03/2024 3:22 PM CDT Problem: Physical Mobility, Impaired Goal: Mobility goal: Improve transfer ability by discharge Description: Patient will transfer sit<>supine and bed<>chair with modified independence. Outcome: Progressing Goal: Mobility goal: Improve ambulation by discharge Description: Patient will ambulate 150 feet on level surface, using rolling walker assistive device, with modified independence so patient can navigate discharge environment. Outcome: Progressing Flowsheets Taken 07/03/2024 152 by Adolfo Jeronimo, Beverage Steward Therapy Comments: 07/03: TLSO can be donned EOB but prefers supine w/ bra in place Pain Management Interventions: unnecessary movement avoided positioning relaxation Response to Interventions: content/relaxed Assistive Devices Used: Gait belt Ambulation device Ambulation Distance (feet): 40 Present Activity: in bed up in room ambulating back to bed Physical Assist/Nonphysical Assist: w/ 1 person assist PT Current Discharge Recommendation: Post acute care Will tolerate 3 hours of therapy PT Recommended DME: To be determined Taken 07/02/2024 1434 by Lois Carter Physical Therapist Therapy Plan of Care: 2-5x/wk Taken 07/01/2024 1650 by Jasiel Nieves Physical Therapist Therapy Eval Date: 07/01/24 Recommend: Post acute care;Will tolerate 3 hours of therapy (07/03/24 1522) Additional Discharge Information: none Recommendations were made on today's assessment. Additional recommendations will be based on patient's progress in therapy. Equipment to be issued at discharge: DME: To be determined (07/03/241521) S: Patient agreeable to therapy. Pt was supine in bed upon arrival, in no apparent distress. Patient was complaining of no pain as she just took a pain pill. Per RN, pt is appropriate for therapy. RNpresent to unhook IV. O: Cognition/ Perception: Alert and oriented x 4 Weight Bearing: No restrictions Skin Integrity: TLSO donned at beginning of session Precautions: Fall, No spinal bending, lifting, or twisting, TLSO can be donned EOB Lines: none Exercises: Bilateral LE AROM x 10 reps, sitting Type: Sitting exercises: Long arc quads, ankle pumps --LE exercises performed to increase ROM, increase strength, increase muscular endurance, prevent loss of joint mobility to promote independence with functional mobility and gait. Therapist providingnecessary assistance and/or cueing for proper mechanics and symptom management. MOBILITY ASSESSMENT Bed Mobility: Pt performed log rolling supine <> sit for 2 trials with min assist x 1 for thefirst trial to bring her trunk into full sitting and mod assist x 1 for the second trial to bring her trunk into full sitting and to bring her LE out of the bed. For the first trial, the pt had to don her bra but then return supine to don the brace as that is how it fits better. Pt performed rolling L<>R with min assist x 1 to allow for brace adjustment and donning. Pt dangled on the EOB with good static sitting balance and BUE support for stability. Pt required assistance to reposition her breasts and abdomen in the brace for a better fit. Pt returned supine and was independent with repositioning her hips in the bed. Transfers: Pt performed sit <> stand with min assist x 1 with education on proper UE placement on the EOB with pt demonstrating understanding. Pt demonstrated good static standing balance with use of the WWR. Gait: Pt ambulated 40 feet in the room with min assist x 1 for overall stability. Pt utilized the WWR throughout. --Gait deviations: decreased ashu, shuffle steps Stairs: not yet able to tolerate [facility] Basic Mobility How much help from another person does the patient currently need? Score 1. Turning from your back to your side while in a flat bed without using bedrails? 3 - A little (supervision to min assist) 2. Moving from lying on your back to sitting on the side of a flat bed without using bedrails? 2 - A lot (max to mod assist) 3. Moving to and from a bed to a chair (including a wheelchair)? 2 - A lot (max to mod assist) 4. Standing up from a chair using your arms (e.g., wheelchair, or bedside chair)? 2 - A lot (max tomod assist) 5. Walking in hospital room? 3 - A little (supervision to min assist) 6. Climbing 3-5 steps with a railing? 1 - Total assist or cannot do at all Total score 13/24 Scale: 1 - Total - requires total assistance, or cannot do at all 2 - A lot - requires a lot of help (max to mod assist), can use assistive devices 3 - A little - requires a little help (supervision, min assist) can use assistive devices 4 - None - does not require any help and does the activity independently, can use assistive devices Education: Education Documentation Rehabilitation, taught by Adolfo Jeronimo, Beverage Steward at 07/03/2024 3:22 PM. Learner: Patient Readiness: Acceptance Method: Explanation, Demonstration, Teach Back Response: Verbalizes Understanding, Demonstrated Understanding, Needs Reinforcement Comment: Per PT POC, safety with bed mobility, safety with transfers, safety with gait, adherence to precautions Education Comments No comments found. Positioning after tx: Tolerated session well. Patient laying supine, rolled to none, bilateral upper extremities and lower extremities elevated for comfort and maintained skin integrity, bed alarm onwith all lines intact; call light in reach. RN aware. A: Response to treatment: Progressing towards goals P: Continue PT 2-5x/wk at bedside for Transfer training, Gait training, Exercises, Balance training, unless change in status or patient is discharged from the facility. Plan of Care developed, as indicated by PT assessment and patient's current status. Please refer to plan of care for updates on goals. Zone #: [id number] * Care Plan - Portia Lynne RN - 07/03/2024 1:00 PM CDT CM received phone call from Qian at [facility] at [phone]. She stated she would call Radha, patient's daughter, and then send for authorization if agreeable. CM will follow up. CMtalked with patient and family at the bedside multiple times and will keep them updated. Portia Lynne RN, BSN Quantitative Associate [id number] Problem: Discharge Planning Goal: Identify discharge needs upon admission and through discharge Description: 07/03/2024 0940 by Portia Lynne RN Outcome: Progressing * Query - Mia Fowler MD - 07/03/2024 10:32 AM CDT Please respond within 48 hours. Thank you! The authenticated query note is part of the Legal Health Record Patient Name: Keegan Amaya Admission Date: 06/27/2024 [facility] #: [id number] Dear Doctor, Please continue to document the appropriate diagnosis for the clinical information below, in your Progress Notes, including through the Discharge Summary. Please keep the Problem List updated for continuity of care. (.hprobl or .probhospall) During this admission, a BMI of 43.48 kg/m2 is documented in the patient's record. Clinical indicators and/or treatment for this patient include: BMI: 43.48 kg/m2 ? Note: To answer the following question(s), please click EDIT button on the activity bar then click F2 in front of the highlighted area(s). ? Question: Clarify if there is an associated diagnosis to correspond with patient's BMI of greater than 40: Severe Obesity Other (specify) Unable to determine Answer: Severe Obesity IReference: CDI Pocket Guide Underweight = BMI < 19 Normal = BMI 19 - 24 Overweight = BMI 25 - 29 Obese = BMI 30 - 39 Severe obesity = BMI 40+ In responding to this query, please exercise your independent professional judgment. Please be advised that coding regulations for inpatient admissions allow the physician to document presumptive/probable diagnoses. The fact that a question is asked does not imply that any particular answer is desired or expected. Thank you. Query initiated by VIRGINIA Mittal, RN. For questions on this query, contact Margaret COLEMAN, RN Clinical Wood Block Artist-Maintenance Supervisor Mechanical, Internal Pool [email or web address] Care Plan - Portia Lynne RN - 07/03/2024 9:40 AM CDT CM received phone call from Radha, patient's daughter. Radha is thinking patient will need some inpatient therapy prior to discharge to home. Radha requested a referral be sent to [facility] rehab in [place], [place]. CM did send referral and will follow up with a phone call. ADDENDUM 1200: CM attempted to call [facility] x3 with busy signal. [facility] and talked with Maria Sifuentes/. Maria Sifuentes stated that once referral received she would call back for information to send for authorization. VERONICA did give Maria Sifuentes phone number to call back. Portia Lynne RN, BSN Quantitative Associate [id number] Problem: Discharge Planning Goal: Identify discharge needs upon admission and through discharge Description: Outcome: Progressing * Care Plan - Coco Cruz RN - 07/03/2024 6:23 AM CDT Problem: Pain, Potential/Actual Goal: Verbalizes/displays acceptable comfort level or baseline comfort level Description: Outcome: Shift Focus Problem: Infection Risk/Actual Goal: Infection Risk/Actual: Infection prevention, control, or resolution by discharge Description: Outcome: Shift Focus Problem: Safety/Fall Goal: Safety/Fall: Absence of fall, injury, harm during hospitalization Description: Absence of/reduce fall risk during current hospitalization related to: 1. History of falls 2. Mobility deficits 3. Medications 4. Mental status/LOC/awareness 5. Toileting needs 6. Volume/electrolyte status 7. Communication/sensory 8. Behavior Outcome: Shift Focus Problem: Gastrointestinal Goal: Achieve optimal gastrointestinal function by discharge or maintain baseline function Outcome: Shift Focus Problem: Musculoskeletal Goal: Achieve optimal musculoskeletal function by discharge or maintain baseline function Outcome: Shift Focus Shift Summary Pain was managed effectively with medication, and no significant changes in infection or gastrointestinal function were noted. The patient maintained musculoskeletal function and no falls or injuriesoccurred during the shift. * Care Plan - Amy Bedoya RN - 07/02/2024 8:07 PM CDT Patient is: A&Ox4 Pain range/score during this shift: 0-4 Medication that have helped or need to be changed: all meds working at this time Void or Bowel movement this shift:voiding on commode patient had a BM this shift on commode Diet tolerated: good to fair Skin concerns: no immediate concerns Behaviors: calm Activity: out of bed with TLSO brace and therapy Pt removed brace while sitting in recliner (while reclined) stated that the doctor told her she could take it off if sitting in recliner. Instructed her that it was best for her to keep brace on while out of bed. Had PICC line placed today in IR for mcc antibiotics. Other peripheral iv's dc'd. All iv tubing changed per protocol with new picc line Discharge: Pt. Stated this afternoon that she is having second thoughts about returning home. Feeling that it might be better /safer for her to go to a SNF/Rehab. creative coordinator meeting/event planner notified that patient would like to discuss more options for discharge. Patient has remained free of falls this shift Patient is stable and resting comfortably * Care Plan - Lois Carter, Physical Therapist - 07/02/2024 2:34 PM CDT Problem: Physical Mobility, Impaired Goal: Mobility goal: Improve transfer ability by discharge Description: Patient will transfer sit<>supine and bed<>chair with modified independence. Outcome: Progressing Goal: Mobility goal: Improve ambulation by discharge Description: Patient will ambulate 150 feet on level surface, using rolling walker assistive device, with modified independence so patient can navigate discharge environment. Outcome: Progressing Flowsheets (Taken 07/02/20241433) Therapy Plan of Care: 2-5x/wk Therapy Comments: 07/02: RICO donmarisol sitting up, ANGELA MURPHYR, wants to d/c home Mon: X Location: leg Pain Rating: Rest: (Not rated numerically) -- Pain Rating: Activity: (Not rated numerically) -- Pain Management Interventions: unnecessary movement avoided positioning Response to Interventions: content/relaxed Assistive Devices Used: Gait belt Ambulation device Ambulation Distance (feet): 30 Present Activity: up to chair up in room ambulating Physical Assist/Nonphysical Assist: w/ stand by assist w/ 1 person assist Total Treatment Time (min): 28 PT Current Discharge Recommendation: Post acute care Will tolerate 3 hours of therapy PT Recommended DME: To be determined PT Treatment Start Time: 1434 PT Treatment Stop Time: 1502 Recommend: Post acute care;Will tolerate 3 hours of therapy (07/02/241433) Recommendations were made on today's assessment. Additional recommendations will be based on patient's progress in therapy. Equipment to be issued at discharge: DME: To be determined (07/02/241433) S: Patient agreeable to therapy. She is resting supine in bed upon arrival. PIV infusing (RN disconnects). O: Cognition/ Perception: Alert and oriented, Pleasant, Cooperative, Follows commands appropriately Weight Bearing: No restrictions listed Skin Integrity: Consistent with EMR Precautions: Fall, TLSO when ambulating or sitting upright (can be donned edge of bed per NSGY), noBLT MOBILITY ASSESSMENT Bed Mobility: Supine > sit via log roll with HOB moderately raised with close SBA, Moderate verbal cueing required to maintain no BLT throughout transition; Sitting EOB with close SBA, Pt requiring min-modA to don bra with brace, Pt requiring maxA to don brace sitting edge of bed, Pt unable to don independently despite therapist providing cues for sequencing Pt lives at home alone at this time. Pt unable to don/doff brace independently. PT asks the pt if there is family that is able to come to see brace donned/doffed and the pt states no. Pt needs continued education/training regarding best way to independently don brace, should pt d/c home. Transfers: Sit <> stand from EOB with Yaya to steady, Appropriate BUE push and transition to WWR Gait: Ambulates ~30' with Yaya to manage WWR, Pt fatigued after ambulation and reports increased work of breathing --Gait deviations: Decreased gait speed, Decreased endurance Stairs: Not performed due to decreased tolerance to mobility [facility] Basic Mobility How much help from another person does the patient currently need? Score 1. Turning from your back to your side while in a flat bed without using bedrails? 3 - A little (supervision to min assist) 2. Moving from lying on your back to sitting on the side of a flat bed without using bedrails? 3 - A little (supervision to min assist) 3. Moving to and from a bed to a chair (including a wheelchair)? 3 - A little (supervision to min assist) 4. Standing up from a chair using your arms (e.g., wheelchair, or bedside chair)? 3 - A little (supervision to min assist) 5. Walking in hospital room? 3 - A little (supervision to min assist) 6. Climbing 3-5 steps with a railing? 3 - A little (supervision to min assist) Total score 18/24 Scale: 1 - Total - requires total assistance, or cannot do at all 2 - A lot - requires a lot of help (max to mod assist), can use assistive devices 3 - A little - requires a little help (supervision, min assist) can use assistive devices 4 - None - does not require any help and does the activity independently, can use assistive devices Education: PT POC, PT role, safety with functional mobility, importance of activity, No BLT, TLSO wear Positioning after tx: Patient positioned up in chair with chair alarm on/patient educated on alarm,call light in reach, all needs met, RN aware A: Response to treatment: Progressing towards goals P: Continue PT 2-5x/wk at bedside for Transfer training, Gait training, Exercises, Balance training, unless change in status or patient is discharged from the facility. Plan of Care developed, as indicated by PT assessment and patient's current status. Please refer to plan of care for updates on goals. Zone #: [id number] * Home Health - Alexandria Canales - 07/02/2024 1:58 PM CDT This patient is out of our service area for home health, Notified case management assistant Eliana Baker . * Care Plan - Eliana Baker RN - 07/02/2024 12:19 PM CDT Problem: Discharge Planning Goal: Identify discharge needs upon admission and through discharge Description: Outcome: Progressing Director Private Discharge Planning CM continues to follow for discharge planning. Chart reviewed. Discussed with care team at [facility]. Patient will need IV abx at discharge. CM met with patient to discuss discharge plan, rehab versus HHC. Patient prefers to go home. CM discussed home health and home infusion needs. Confirmed patient lives alone. Patient reports her daughter or her son might be able to assist. Patient also has a choreworker once a week for 3 hrs throughher [place] Medicaid benefit. Patient has a rollator, BSC, cane, and shower seat at home. CM requested HHC and home infusion orders be placed so benefits could be checked and provider located. Patient lives in [place], outside of the [facility] service area. Referrals have been sent to some [facility] providers and [facility] for home infusion. 1330 Orders for home IV abx received and sent to [facility] via [facility]. Expected Discharge Date Jul 02, 2024 Plan Discharge To: Home Health Services;Inpatient Rehab Facility (06/27/24 1712) Referrals Status: Facility Referrals - Considering Home Health/Hospice - Pending Dialysis/Infusion - Pending Preferred Pharmacy: [id number] - [place], [place] - [address] Patient / Family Communications Resources Provided Transportation Plan Eliana Baker RN * Treatment Plan - Linda Echeverria RN - 07/02/2024 8:24 AM CDT Images from the original note were not included. Registered Nurse : Kalen Echeverria RNclearing house clerk Radiology Treatment Plan Signed Date of Service: 07/02/2024 [facility] Diagnostic Test (X-Ray) for Verification of Enteral Feeding Tubes, CV Lines, and pH Probe Protocol [facility] Approved by: [facility] - Medical Executive Committee Approval Date: 07/01/2022 ORDERS ARE ENTERED ???PER PROTOCOL?? Enter the protocol in the patient???s electronic health record using Certessphrase: .diagnostictestsprotocol Nursing Orders: CENTRAL VENOUS LINE PLACEMENT Following insertion of a central intravenous line, obtain a chest x-ray to confirm tip location. NOTE - NO chest x-ray is required if ECG technology or fluoroscopy is utilized to confirm tip location during PICC or central line insertion. However, if the ECG technology is utilized and there is any question about the location of the catheter tip, a chest x-ray may be obtained to confirm tip location. NOTE - In PEDIATRIC patients after short femoral line placement x-ray confirmation is not always needed. Contact provider for order. ENTERAL FEEDING Unless enteral feeding tube placed by endoscopy with tip verification, obtain an ???X-ray of abdomen for feeding tube?? placement upon insertion of an oral or nasogastric enteral tube into the stomach or small bowel for the purpose of enteral feeding, medication administration, decompression or aspiration. AND FOR GENERAL CARE UNITS - notify the Radiologist, when the ???X-ray of abdomen for feeding tube?? placement has been obtained for prompt interpretation. IN CRITIICAL CARE UNITS - notify the attending physician when the ???X-ray of abdomen for feeding tube?? placement has been obtained for prompt interpretation Verify correct tube placement and a nutrition order is in the health record prior to the initiationor resumption of enteral feedings. pH PROBE o Following insertion of a pH probe, obtain a chest x-ray, unless otherwise ordered by provider. Esophageal Temperature Probe-ICU ONLY Following the insertion of an esophageal temperature probe, obtain a chest x-ray with critical careprovider. With correct placement, probe will not be visible on the x-ray. Diagnostic Test Orders: CENTRAL VENOUS LINE Enter order for XR Chest PA or AP (can be done portable) (XR 1060) and indication for x-ray ENTERAL FEEDING (for enteral feeding, medication administration, decompression, or aspiration) Enter order XR ABDOMEN FOR FEEDING TUBE (XR 1004) STAT. ADD the nurse call-back number to the EHR order AND indication for x-ray pH PROBE Enter order for XR Chest PA or AP (can be done portable) (XR 1060) and indication for x-ray Esophageal Temperature Probe Enter order for XR chest PA or AP (can be done portable) (XR 1060) and indication for x-ray * Care Plan - Bridget Srivastava RN - 07/02/2024 6:45 AM CDT 6:45 AM- End of shift summary: Patient rested quietly overnight. Vitals as documented. Assessments as documented. Pain well controlled with PO medications. Patient voiding well on her own. She is able to stand and pivot well to bedside commode with x1 assist. She is A&O x4. Continued with IV antibiotics. Patient complaining of a persistent cough. Obtained order from [employer] commercial construction project manager for a one time dose of Robitussin. Patient then declined to taking Robitussin. * Care Plan - Bridget Srivastava RN - 07/02/2024 6:45 AM CDT Pathway Day 3 - Current (INTERDIS PW: HYPERGLYCEMIA, ADULT) Metabolic: Maintain glucose between 110-180 mg/dL when receiving subcutaneous insulin and between 110-160 mg/dL when receiving IV insulin. Outcome: Met Nutrition Management: Patient maintaining appropriate carbohydrate selections with each meal. Outcome: Met Symptom Management: Patient denies signs and symptoms of hyperglycemic or hypoglycemic events Outcome: Met Problem: Pain, Potential/Actual Goal: Verbalizes/displays acceptable comfort level or baseline comfort level Description: Outcome: Variance Problem: Musculoskeletal Goal: Achieve optimal musculoskeletal function by discharge or maintain baseline function Outcome: Variance Problem: Infection Risk/Actual Goal: Infection Risk/Actual: Infection prevention, control, or resolution by discharge Description: Outcome: Progressing Problem: Safety/Fall Goal: Safety/Fall: Absence of fall, injury, harm during hospitalization Description: Absence of/reduce fall risk during current hospitalization related to: 1. History of falls 2. Mobility deficits 3. Medications 4. Mental status/LOC/awareness 5. Toileting needs 6. Volume/electrolyte status 7. Communication/sensory 8. Behavior Outcome: Progressing Problem: Discharge Planning Goal: Identify discharge needs upon admission and through discharge Description: Outcome: Progressing Problem: Respiratory Goal: Achieve optimal respiratory function by discharge and/or maintain baseline function Outcome: Progressing Problem: Gastrointestinal Goal: Achieve optimal gastrointestinal function by discharge or maintain baseline function Outcome: Progressing Problem: Genitourinary/Renal Goal: Achieve optimal genitourinary and renal function by discharge or maintain baseline function Outcome: Progressing Problem: Skin Goal: Maintain skin integrity and/or promote wound healing by discharge Outcome: Progressing Problem: Nutrition/Endocrine Goal: Achieve optimal nutrition and fluid status to meet metabolic needs throughout hospitalization Outcome: Progressing Problem: Physical Mobility, Impaired Goal: Mobility goal: Improve transfer ability by discharge Description: Patient will transfer to/from toilet with modified independence. Outcome: Progressing Problem: Self-Care Deficit Goal: Self care goal: Improve ability to perform self care activities by discharge Description: Patient will require modified independence with grooming/bathing with adaptive equipment/techniques. Outcome: Progressing Goal: Self care goal: Improve dressing ability by discharge Description: Patient will require modified independence with lower extremity dressing with adaptiveequipment/techniques. Outcome: Progressing Problem: Self-Care Deficit Goal: Self care goal: Improve dressing ability by discharge Description: Patient will require moderate assistance with upper extremity dressing with adaptive techniques. Outcome: Progressing Problem: Physical Mobility, Impaired Goal: Mobility goal: Improve transfer ability by discharge Description: Patient will transfer sit<>supine and bed<>chair with modified independence. Outcome: Progressing Goal: Mobility goal: Improve ambulation by discharge Description: Patient will ambulate 150 feet on level surface, using rolling walker assistive device, with modified independence so patient can navigate discharge environment. Outcome: Progressing * Therapy Evaluation - Jasiel Nieves, Physical Therapist - 07/01/2024 4:50 PM CDT Physical Therapy order received, chart reviewed, and evaluation completed. Please see full evaluation below for details. Daily PT notes will be located in Care Plan notes. Thank You. PT INITIAL EVALUATION Reason for Admission: L4-L5 discitis, back pain Ordered by: MD Shelly Activity Order: as tolerated Weight Bearing Status: no restrictions Precautions: Fall PMH: No past medical history on file. Recommend: Post acute care (07/01/241649) Recommendations were made on today's assessment. Additional recommendations will be based on patient's progress in therapy. Equipment to be issued at DC: To be determined (07/01/241649) S: Patient agreeable to therapy. Patient reports 0/10 pain. Patient is motivated and ready to participate. Pain intervention: Unneccessary movement avoided, Repositioned for comfort, Premedicated for activity Response to pain intervention: Appeared content, Agrees to continue Living Situation/Functional Level MANAGER SPA: Patient lives alone in a 2nd floor apt unit with elevator access. Reports no steps to enter building. Patient uses rollator for functional mobility intermittently. Reports she is typically independent with ADLs. Maid visits every Tuesday to perform cleaning tasks. Washer/dryer in unit. Patient is currently driving. Denies any falls in the past 6 months. States her dtr can assist at her night only since she works during the day. Home Equipment: rollator, cane, BSC O: Appearance: 68 y/o female sitting on a commode with no lines connected. Cognition/Perception: Alert and oriented x 4. Patient is able to follow commands with verbal cues for safety. Skin Integrity: Bilateral LE visible skin intact ROM: Bilateral Lower Extremity WFL Muscle Tone: WFL Strength: Bilateral Lower Extremity Decreased: 4/5 grossly Sensation: Bilateral LE light touch intact throughout MOBILITY ASSESSMENT: Bed Mobility: min assist sit>supine in bed, SBA sitting edge of bed Transfers: SBA sit<>stand from commode with WWR, SBA stand pivot with WWR Gait: 4 feet SBA with WWR --Gait Deviations: slow ashu, decreased step length Balance: Static Sitting: Fair, Dynamic Sitting: Fair, Static Standing: Fair, Dynamic Standing: Fair- Exercises: Bilateral LE AROM x 20 reps, sitting Type: Sitting exercises: hip flexion, hip abduction/adduction, Long arc quads, ankle pumps --LE ROM performed to increase ROM, increase strength, increase muscular endurance, prevent loss ofjoint mobility to promote independence with functional mobility and gait. [facility] Basic Mobility How much help from another person does the patient currently need? Score 1. Turning from your back to your side while in a flat bed without using bedrails? 3 - A little (supervision to min assist) 2. Moving from lying on your back to sitting on the side of a flat bed without using bedrails? 3 - A little (supervision to min assist) 3. Moving to and from a bed to a chair (including a wheelchair)? 3 - A little (supervision to min assist) 4. Standing up from a chair using your arms (e.g., wheelchair, or bedside chair)? 3 - A little (supervision to min assist) 5. Walking in hospital room? 3 - A little (supervision to min assist) 6. Climbing 3-5 steps with a railing? 1 - Total assist or cannot do at all Total score 16/24 Scale: 1 - Total - requires total assistance, or cannot do at all 2 - A lot - requires a lot of help (max to mod assist), can use assistive devices 3 - A little - requires a little help (supervision, min assist) can use assistive devices 4 - None - does not require any help and does the activity independently, can use assistive devices Patient/Family Education: PT plan of care, functional mobility, safety, exercise Positioning after tx: Patient positioned in bed with bed alarm on/patient educated on alarm, all lines intact, call light in reach, B UE/LEs elevated for comfort and maintained skin integrity, all needs met, RN aware A: Disabilities: Decreased strength, decreased endurance, impaired balance, difficulty with bed mobility, transfers, and gait Assessment: Patient would benefit from skilled therapy to address above disabilities. Clinical Presentation: Stable and/or uncomplicated EVALUATION COMPLEXITY: Low Complexity -These findings are based on patient's self reporting, therapist's objective findings and professional determinations. P: PT to see patient: At bedside 2-5x/wk. Will continue therapy unless patient has a change in status or patient is discharged from the facility. Plan of Care developed, as indicated by PT assessmentand patient's current status. Treatment Plan: Patient to be seen for Transfer training, Gait training, Exercises, Balance training Recommendations: For: Patient, Nursing --OOB to chair with chair alarm, ambulate in room or hallway, with assist Equipment to be issued at DC: To be determined (07/01/24 1650) --Patient involved in goal setting: yes Patient goals will be found in the Care Plan section of the medical chart. Zone #: [id number] On weekends--please call [phone] * Therapy Evaluation - Klaudia Chávez Occupational Therapist - 07/01/2024 1:40 PM CDT Occupational Therapy order received, chart reviewed, and evaluation completed. Please see full evaluation below for details. Daily OT notes will be located in Care Plan notes. Thank You. OT INITIAL EVALUATION Reason for Admission: lumbar osteomyelitis/discitis with epidural phlegmon Ordered by: Daljit Bravo MD Activity Order: activity as tolerated (bedrest completed 07/01) Weight Bearing Status: none listed Precautions: Fall; TLSO brace when up, no bending/lifting/twisting PMH: No past medical history on file. Recommend: Post acute care;Will tolerate 3 hours of therapy (07/01/24 1340) Recommendations were made on today's assessment. Additional recommendations will be based on patient's progress in therapy. Equipment needed at DC: To be determined (07/01/24 134) Additional Adaptive Equipment Recommended: Drilling Superintendent;Sock Aid;Shoe Horn;Long handled sponge ([id number]) S: Patient agreeable to therapy. Patient reports not formally rated/10 pain. Denies back pain, c/o LLE pain d/t sciatica. Pain intervention: Unneccessary movement avoided, Repositioned for comfort Response to pain intervention: Appeared content Living Situation/Functional Level MANAGER SPA: Patient lives alone in a 2nd floor apt unit with elevator access. Reports no steps to enter building. Patient uses rollator for functional mobility intermittently. Reports she is typically independent with ADLs. Maid visits every Tuesday to perform cleaning tasks. Washer/dryer in unit. Patient is currently driving. Denies any falls in the past 6 months. States her dtr can assist at her night only since she works during the day. Home Equipment: rollator, cane, BSC, raised toilet seat, walker-in shower with built-in seat and handheld shower head (also has tub shower but does not use_ O: Appearance: seated in recliner at arrival, TLSO donned Vision: corrected with glasses Cognition/Perception: A&Ox4, follows commands, conversational, calm and cooperative UE ROM: WFL Muscle Tone: WFL UE Strength: WFL Skin Integrity: RN monitoring, no skin breakdown noted at this time. FUNCTIONAL ACTIVITIES ASSESSMENT: Feeding: Ind with meal tray anticipated Grooming: Max A for toileting tasks following continent BM on BSC. Assist with posterior pier care as patient is unable to reach with brace donned/cued not to twist. UE Dressing: Max A for TLSO adjustment as patient reports she is having difficulty with brace d/t body habitus - reports it is uncomfortable on her abdomen LE Dressing: Total A to don personal shoes and socks Toilet Transfer: Min A for stand pivot transfer to BS with walker, Min A for sit to stand from BSCpost toileting Functional Mobility: seated in recliner at arrival - Min A for initial sit to stand from recliner, verbal cues to push up from armrests - see toilet transfers above - Min/Mod A for ambulation in room with walker - Mod A for stand to sit back to recliner [facility] AM-PAC Daily Activity How much help from another person does the patient currently need? Score 1. Putting on and taking off regular lower body clothing? 1 - Total assist or cannot do at all 2. Bathing (including washing, rinsing, drying)? 2 - A lot (max to mod assist) 3. Toileting, which includes using toilet, bedpan or urinal? 2 - A lot (max to mod assist) 4. Putting on and taking off regular upper body clothing? 2 - A lot (max to mod assist) 5. Taking care of personal grooming such as brushing teeth? 3 - A little (supervision to min assist) 6. Eating meals? 4 - None (independent) Total score 14/24 Scale: 1 - Total - requires total assistance, or cannot do at all 2 - A lot - requires a lot of help (max to mod assist), can use assistive devices 3 - A little - requires a little help (supervision, min assist) can use assistive devices 4 - None - does not require any help and does the activity independently, can use assistive devices Positioning after tx: Patient seated in recliner with BLE elevated and all needs met at OT departure. Call light/phone and tray table within reach. All lines intact/in place. Patient/Family Education: OT role/purpose, ADL task assessment, and functional mobility/transfers. Reviewed no bending/lifting/twisting. A: Disabilities: strength, balance, endurance, pain Assessment: Patient would benefit from continued skilled OT services during acute stay to improve safety and independence with ADLs and functional mobility/transfers. EVALUATION COMPLEXITY: Low Complexity -These findings are based on patient's self reporting, therapist's objective findings and professional determinations. P: OT to see patient: 2-5x/wk at bedside Treatment: OT to see patient for: ADL Training, Functional Mobility Training, UE ROM/Strengthening,Patient Education Will continue therapy unless patient has a change in status or patient is discharged from the facility. --Patient involved in goal setting: yes Patient goals will be found in the Care Plan section of the medical chart. Zone #: [id number] On weekends--please call [phone] * Care Plan - Lynn Smith RN - 07/01/2024 2:37 AM CDT Problem: Pain, Potential/Actual Goal: Verbalizes/displays acceptable comfort level or baseline comfort level Description: Outcome: Variance Problem: Musculoskeletal Goal: Achieve optimal musculoskeletal function by discharge or maintain baseline function Outcome: Variance * Treatment Plan - Karrie Blake PHARMACIST - 06/30/2024 1:19 PM CDT Pharmacy Note: Vancomycin Consult Ms. Keegan Amaya is a 68 y.o. female currently in who was admitted 06/27/2024 12:46 AM. The pharmacy team is consulted for vancomycin management. BP 122/74 (BP Location: Right arm, Patient Position (BP): Supine) Pulse (!) 59 Temp 97.3 ??F (36.3 ??C) (Oral) Resp 12 Ht 5' 6 (1.676 m) Wt 122.2 kg (269 lb 6.4 oz) SpO2 98% BMI 43.48 kg/m?? All: Celecoxib Lab Results Component Value Date CREAT 0.88 06/29/2024 Lab Results Component Value Date WBC 8.7 06/29/2024 HGB 11.6 (L) 06/29/2024 HCT 39.6 06/29/2024 PLT 211 06/29/2024 Lab Results Component Value Date CRP 33.8 (H) 06/27/2024 Lab Results Component Value Date VANCOMYCINTR 22.9 (H) 06/30/2024 No results found for: VANCOMYCINRN Assessment The patient is currently receiving vancomycin 1500 mg Q12h for an indication of Osteomyelitis . Goal trough of 15-20 mcg/mL. A trough level drawn prior to the 4th dose was 22.9 mcg/ml. Renal functionappears stable with most recent Estimated Creatinine Clearance: 71.8 mL/min (by C-G formula based on SCr of 0.88 mg/dL). Today is day 3 of total therapy. Kinetics Navigator: Trough Evaluation Measured trough level = 22.9 mcg/mL Estimated true trough level = 22.26 Goal trough target = Meningitis (target 15-20) Kinetics Navigator: New Dose Recommendation Test regimen dose = 1250 mg Test regimen interval = q12h Predicted trough level = 18.73 mcg/mL Plan Change dose to 1250 mg q12h. Pharmacy to continue to monitor JOSEP Colunga 06/30/2024 1:17 PM * Care Plan - Ashanti Yao RN - 06/30/2024 7:37 AM CDT Shift Summary Pain was managed effectively with HYDROcodone-acetaminophen. No falls or injuries occurred, and safety checks were completed. No fever overnight. * Care Plan - Portia Lynne RN - 06/29/2024 6:20 PM CDT CM talked with patient's family. Patient went down to IR for biopsy and is now being fitted by a TLSO brace. Patient remains on bedrest until xray upright done with TLSO brace on. [facility] referral sent for iv infusion in [place] and HHC referrals sent for HHC in [place]. Portia Lynne RN, BSN Quantitative Associate [id number] Problem: Discharge Planning Goal: Identify discharge needs upon admission and through discharge Description: Outcome: Progressing * Therapy Evaluation - Lois Carter Physical Therapist - 06/29/2024 12:04 PM CDT PT received evaluation order and performed chart review. PT to hold therapy evaluation this date. Pt awaiting TLSO brace and upright xrays. Currently with bedrest orders. Will continue to follow and re-attempt as appropriate and able. Thanks [id number] * Therapy Evaluation - Parul Dye Occupational Therapist - 06/29/2024 11:00 AM CDT OT orders received and chart reviewed. OT to hold evaluation this date. Per conversation with RN, pt does not have a TLSO brace in room. Pt is on Bedrest pending brace arrival. Will continue to follow and re-attempt as medically appropriate. Thank you. [phone] * Care Plan - Elena Barker RN - 06/29/2024 3:44 AM CDT Shift Summary CPAP was initiated due to dyspnea on exertion, and pain was managed with HYDROcodone-acetaminophen.The patient remains stable but requires continued respiratory support and pain management. Achieve optimal respiratory function by discharge and/or maintain baseline function: The patient required CPAP intervention during the shift due to dyspnea on exertion, indicating a need for continued respiratory support and monitoring . Achieve optimal gastrointestinal function by discharge or maintain baseline function: The patient'sgastrointestinal status remained stable with no changes noted upon reassessment . Achieve optimal genitourinary and renal function by discharge or maintain baseline function: The patient experienced dribbling and incontinence, with no changes noted upon reassessment . Achieve optimal musculoskeletal function by discharge or maintain baseline function: The patient has mild generalized muscle weakness and requires a gait belt and one-person assist for mobility . Patient is: Pain Range/Score during the shift: patient only had a pain rating of 4-5 once during the shift Medication that have helped or need to be changed: all medications worked as intended Void or Bowel Movement: Patient is utilizing a bedside commode Dressing:n/a Diet Tolerated: Regular Skin Concerns: n/a Behaviors: calm and cooperative Activity: BR with bedside commode Discharge: TBD Patient has remained free of falls this shift. Patient is stable and resting comfortably. Achieve optimal nutrition and fluid status to meet metabolic needs throughout hospitalization: The patient is eating normally and has a good Apolinar score for nutrition . * Care Plan - Amara Pennington RN - 06/28/2024 7:41 PM CDT Problem: Pain, Potential/Actual Goal: Verbalizes/displays acceptable comfort level or baseline comfort level Description: 06/28/20241940 by Amara Pennington, RN Outcome: Variance 06/28/2024 170 by Amara Pennington RN Outcome: Variance Problem: Safety/Fall Goal: Safety/Fall: Absence of fall, injury, harm during hospitalization Description: Absence of/reduce fall risk during current hospitalization related to: 1. History of falls 2. Mobility deficits 3. Medications 4. Mental status/LOC/awareness 5. Toileting needs 6. Volume/electrolyte status 7. Communication/sensory 8. Behavior 06/28/20241940 by Amara Pennington RN Outcome: Variance 06/28/20241706 by Amara Pennington RN Outcome: Variance Problem: Discharge Planning Goal: Identify discharge needs upon admission and through discharge Description: 06/28/20241940 by Amara Pennington RN Outcome: Variance 06/28/20241706 by Amara Pennington RN Outcome: Variance Problem: Musculoskeletal Goal: Achieve optimal musculoskeletal function by discharge or maintain baseline function 06/28/20241940 by Amara Pennington RN Outcome: Variance 06/28/20241706 by Amara Pennington RN Outcome: Progressing * Treatment Plan - Angie Nicholson, PHARMACIST - 06/28/2024 1:02 PM CDT Pharmacy Note: Vancomycin Consult Ms. Keegan Amaya is a 68 y.o. female currently in who was admitted 06/27/2024 12:46 AM. The pharmacy team has been consulted for vancomycin management by Dr. Oliver. BP 132/74 (Patient Position (BP): Supine) Pulse 60 Temp 98 ??F (36.7 ??C) (Skin) Resp 20 Ht5' 6 (1.676 m) Wt 122.2 kg (269 lb 6.4 oz) SpO2 100% BMI 43.48 kg/m?? All: Celecoxib Lab Results Component Value Date CREAT 0.63 06/27/2024 Lab Results Component Value Date WBC 7.6 06/27/2024 HGB 12.0 06/27/2024 HCT 39.1 06/27/2024 PLT 274 06/27/2024 Lab Results Component Value Date CRP 33.8 (H) 06/27/2024 No results found for: VANCOMYCINTR No results found for: VANCOMYCINRN Microbiology: pending Assessment: Patient is a 68 y.o. female requiring vancomycin for Osteomyelitis . Goal trough 15-20 mcg/mL. The patient's most recent weight is 122.2 kg. Renal function appears stable with most recent Estimated Creatinine Clearance: 71.8 mL/min (by C-G formula based on SCr of 0.63 mg/dL). Plan: 1. Initial therapy will be vancomycin 1500 mg q12h (received a OTD on 06/27 ~0900, then vanc was held; restarting now) 2. Pt will be evaluated for AUC vs Trough monitoring as more information becomes available. 3. Assess for potential de-escalation. The pharmacy will continue to follow and adjust as appropriate. Thank you for allowing me to participate in the care of this patient. Angie Nicholson, PHARMACIST 06/28/2024 1:02 PM * Therapy Evaluation - Klaudia Chávez, Occupational Therapist - 06/28/2024 10:35 AM CDT OT orders received, chart reviewed. OT to hold therapy evaluation at this time. Patient currently on bedrest with BSC privileges. Also awaiting OTS TLSO and upright Xrays in brace. Will continue to follow and re-attempt as able/appropriate. Klaudia [id number] * Therapy Evaluation - Lois Carter, Physical Therapist - 06/28/2024 10:31 AM CDT PT received evaluation order and performed chart review. Pt unavailable for therapy evaluation thisAM, as they are off the floor in IR. Pt currently with bedrest with BSC privileges and awaiting OTSTLSO and upright xrays in brace, as well. Will continue to follow and re-attempt as appropriate andable. Thanks [id number] Addendum ([id number]): PT continue to hold for this PM, as pt still awaiting upright xrays. Will continueto follow. Thanks. * Care Plan - Jo-Ann Green GN - 06/28/2024 6:54 AM CDT Patient is: A&Ox4 Pain Range/Score during the shift: 4-6 Medication that have helped or need to be changed: meds given per Mar working well at this time Void or Bowel Movement: voiding via BSC, no BM this shift Diet Tolerated: diabetic to NPO sips with meds @ [place] Skin Concerns: dry throughout extremities Behaviors: kind restful calm appropriate Activity: x1 pivot to BSC Discharge: TBD biopsy today Patient has remained free of falls this shift. Patient is stable and resting comfortably. Shift Summary Pain was managed effectively with medication, and the patient was able to rest comfortably. Overall, the patient maintained stable gastrointestinal, musculoskeletal, and skin status, and nutritional needs were met. * Care Plan - Carlos Altamirano RN - 06/27/2024 7:01 PM CDT Shift Summary Patient experienced a significant spike in pain at 1:36 PM, which was effectively managed with HYDROcodone-acetaminophen, reducing pain to 3/10 by 5:43 PM. BP was elevated at 12:10 PM but returned toa more stable level by 4:21 PM. B&H fitted for custom TSLO brace, will delivered tomorrow. * Care Plan - Portia Lynne RN - 06/27/2024 5:13 PM CDT Care Management Initial Assessment Initial Discharge Planning Assessment completed. Discussed Care Management's role and Discharge planning. Discharge Plan: Plan Discharge To: Home Health Services;Inpatient Rehab Facility Does the patient have family and/or a caregiver that is willing, able and available to assist if needed? 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 Plan for IV abx x 6 weeks. Patient lives in [place]. CM will follow up with PT/OT recommendations. Possible TLSO brace. Patient Discharge Planning Goal: home with [facility] Patient will potentially discharge to a SNF/NH? Yes, [place] Education level and occupation: retired/disabled (if retired or disabled, list prior occupation) If patient will go to SNF/NH at discharge, consider if a LEVEL II PASRR screening should be startedfor: Mental Health (prior admission or problems in level of functioning related to MH diagnosis): no Is the individual known or suspected to have a diagnosis of Intellectual Disability that originatedprior to age 18? no Related Condition (examples: seizure disorder, cerebral palsy, spina bifida, autism) prior to age 22: no Any YES answer above requires a LEVEL II PASRR screening. Care Management visited with: patient and Nohelia via in person. Prior to admission, patient resides at: own home. Patient resides in a 1 story home with 0 stairs to enter. Patient's bedroom and bathroom are located on the main floor. Prior to admission, living arrangements: lives alone. Prior to admission, patient's functional level:independent; uses N/A for mobility; needs assistancewith iADLs: N/A Community Ambulator: yes Prior to admission, the patient has the following DME? Yes cane and CPAP Services in the home/community: none Receives hemodialysis? No Emergency contact(s): No emergency contact information on file. Prescription coverage: yes Preferred Pharmacy verified: [id number] - [place], [place] - [address] Insurance coverage verified: Payor: [address] MEDICARE ADVANTAGE / Plan: [employer] PPO MCR /Product Type: PPO / Secondary Insurance:N/A Medicaid Status: spend down Has VA Benefits: no Employment Status: retired and disabled DOES NOT receive Disability Income. PCP verified as: Adina Armijo MD with [facility] in [facility] Patient has not had a stay at an acute care hospital in the last 30 days. Recent Falls?: Last Known Fall: No falls Plan for transportation at discharge: private vehicle, EMS Care Management contact information provided. Care Management will continue to follow and assist asneeded. Portia Lynne RN, BSN Quantitative Associate [id number] Problem: Discharge Planning Goal: Identify discharge needs upon admission and through discharge Description: Outcome: Progressing * Therapy Evaluation - Parul Dye Occupational Therapist - 06/27/2024 8:04 AM CDT OT orders received and chart reviewed. OT to hold evaluation this date. Pt has active bedrest orders and is pending imaging neurosurgery consult for plan for spine. Will continue to follow and re-attempt as medically appropriate. Thank you. [id number] * Therapy Evaluation - Amee Langston, Physical Therapist - 06/27/2024 7:54 AM CDT PT orders received and chart reviewed. Unable to complete orders due to patient is currently on bedrest orders. Will continue to follow. Amee PT [id number] * Treatment Plan - Brie Vazquez RT - 06/27/2024 3:25 AM CDT Images from the original note were not included. ST IMS Medication and Flush Protocol- CT and MRI Procedures [facility] Approved by: [facility]-Medical Executive Committee Approval Date: 03/01/2024 ORDERS ARE ENTERED ???PER PROTOCOL?? Enter the protocol in the patient's electronic health record using smartphrase: .imagingctmriprotocol Communication Orders: For ordered imaging procedures requiring intravenous access: Initiate a peripheral IV, if not already in place, and discontinue IV prior to discharge (if outpatient). Enter order if needed: Insert Peripheral IV Bariatric Oral Contrast: Post-surgical bariatric patients will have markedly reduced ability to drink normal quantities of liquid. Four ounces will be the maximum amount or less if the patient cannot comfortably tolerate. Cancel oral contrast if patient is nauseated or vomiting. Water based contrast only. Medication Orders: Local Anesthetic for use to initiate IV ADULT Lidocaine 4% (L.M.X.4) applied topically ONE TIME prior to IV catheter insertion PRN (L.M.X.4 % should be applied 15 minutes prior to procedure) PEDIATRIC Lidocaine 4% (L.M.X.4) applied topically ONE TIME prior to IV catheter insertion PRN (apply 30 minutes prior to procedure) Sucrose 24% (Squirts) given PO prior to IV catheter insertion (administer 1 - 2 minutes prior to procedure) OR Sucrose 24% (Tootsweet; Sweet-Ease) oral solution 0.2 mL oral (apply to tongue on pacifier or clean, gloved finger), ONE TIME 2 minutes prior to painful procedure. May repeat dose x1 PRN to complete procedure. Sodium chloride 0.9% (normal saline) flush 10 mL PRN for saline lock or medication administration. For respiratory distress, initiate oxygen and/or increase O2 to maintain saturation greater than 90% For all invasive procedures: obtain Lidocaine 1% for intra-procedure administration. If Lidocaine 1% unavailable, may substitute Lidocaine 2%. PROCEDURE SPECIFIC CT MEDICATIONS Any exceptions to these contrast protocols must be approved by a Radiologist and documented in the EHR Progress Notes. When multiple medications are listed with the comment ???OR?? them, select the first option until challenges from product availability make this option unavailable. Cystogram (CT Pelvis): Iopamidol (Isovue 300) 61%, 50 mL, diluted with 250mL of sterile NS. Inject Isovue into 250 mL bag of NS. Clamp rubio catheter prior to instilling solution via catheter. Instill up to 300 mL of Isovue and NS solution into bladder via catheter, one time. CT ORAL CONTRAST PROTOCOLS FOR ADULTS Use Iohexol (Omnipaque) 240 mg/mL for CT scan unless patient has a documented allergy to contrast dye. If allergy present, use Barium Sulfate (EZ Paque) for procedure. Iopamidol (Isovue 300) 300mg/ml: 30ml added to 960mL of clear liquid of patient's choice. Preferredroute is oral. May use nasoenteric tube if needed. Utilize the following administration instructions when there is a need to conserve contrast 15 mL of Iopamidol (Isovue 300) split into two cups (7.5 mL in each cup) Dilute as usual with 960 mL of clear liquid of patient's choice (480 mL in each cup) Have patient drink one cup an hour before the test, wait 30 minutes then start to drink the next cup, leaving a little over an inch in the bottom of the second cup. As the technologist is getting thepatient from the waiting room after an hour, have the patient finish the rest of the second cup so it can coat and fill the stomach OR Iohexol (Omnipaque) 240 mg/mL: 50ml added to 960mL of clear liquid of patient's choice. Preferred route is oral. May use nasoenteric tube if needed. Administer 900mL of the diluted Omnipaque 240, orally, one time only. Barium Sulfate (EZ Paque /Vanilla Silq) 96% oral suspension: Preferred route is oral. May use nasoenteric tube if needed. Administer 900mL of barium sulfate, orally, one time only. Bariatric Patient: Post-Surgery to 1 year- 50 mL total volume. NO carbonated liquids lopamidol (Isovue 300) 300 mg/mL: mixed with water. Draw 50 mL of mixed solution for patient. Preferred route is orally. May use nasoenteric tube if needed. OR lohexol (Omnipaque) 240 mg/mL: mixed with water. Draw 50mL of mixed solution for patient. Preferredroute is orally. May use nasoenteric tube if needed. (SUBJECT TO AVAILABILITY) After 1 year- no more than 236 mL (8oz) total volume. NO carbonated liquids. lopamidol (Isovue 300) 300 mg/mL: mixed with water OR lohexol (Omnipaque) 240 mg/mL: mixed with water (SUBJECT TO AVAILABILITY) CT ORAL CONTRAST PROTOCOLS FOR PEDIATRICS Pediatrics = up to age 18 Pediatric Radiologist will approve of one of the following products selected for procedure. Barium Sulfate (EZ Paque) 96% oral suspension: preferred route is oral. May use nasoenteric tube ifneeded. to 3 months Administer up to 90mL of Barium sulfate, orally, one time only 4 months to 1 year old Administer up to 240mL of Barium sulfate, Orally, One Time Only 1 year old to 5 years old Administer up to 360mL of Barium sulfate, Orally, One Time Only 5 years old to 10 years old Administer up to 480mL of Barium sulfate, Orally, One Time Only Over 10 years old Administer up to 600mL of Barium sulfate, Orally, One Time Only Iopamidol (Isovue 300) 300 mg/mL oral solution Dilute 25mL of Iohexol with 480mL of clear liquid of patient's choice. Administer the diluted solution per age as follows: Preferred route is orally. May use nasoenteric tube if needed. Send any remaining diluted Iohexol solution with the patient's nurse to CT Iopamidol (Isovue) 300 mg/ml oral solution age appropriate guidelines Administer 45mL of diluted Iopamidol oral solution, orally every 30 minutes x 2 doses. 1 month to 1 year old Administer 120mL of diluted Iopamidol oral solution, orally every 30 min x 2 doses. 1 year old to 5 years old Administer 180mL of diluted Iopamidol oral solution, orally every 30 min x 2 doses. 5 years old to 10 years old Administer 240mL of diluted Iopamidol oral solution, orally every 30 min x 2 doses. Over 10 years old Administer 245mL of diluted Iopamidol oral solution, orally every 30 min x 2 doses. OR Iohexol (Omnipaque) 240 mg/mL oral solution Dilute 25mL of Iohexol with 480mL of clear liquid of patient's choice. Administer the diluted solution per age as follows: Preferred route is orally. May use nasoenteric tube if needed. Send any remaining diluted Iohexol solution with the patient's nurse to CT Iohexol (Omnipaque) 240mg/ml oral solution age appropriate guidelines [place] Administer 45mL of diluted Iohexol oral solution, orally every 30 minutes x 2 doses. 1 month to 1 year old Administer 120mL of diluted Iohexol oral solution, orally every 30 min x 2 doses. 1 year old to 5 years old Administer 180mL of Iohexol orally every 30 min x 2 doses. 5 years old to 10 years old Administer 240mL of Iohexol orally every 30 min x 2 doses. Over 10 years old Administer 250mL of Iohexol orally every 30 min x [address] RECTAL CONTRAST PROTOCOLS ADULTS: Iopamidol (Isovue) 300 mg/mL: Dilute 30mL of Isovue with 900mL of warm water in an enema bag. Administer the diluted solution rectally via gravity per patient's tolerance, up to 950mLs, one time only. OR Iohexol (Omnipaque) 240 mg/mL: Dilute 50mL of Omnipaque with 900mL of warm water in an enema bag. Administer the diluted solution rectally via gravity per patient's tolerance, up to 950mLs, one time only. CT IV CONTRAST PROTOCOLS for ADULT ADULTS: (If patient is less than 55kg and confirm dose with radiologist) Iopadmidol (Isovue-300): Administer 2.2mL/kg of Iopamidol 61%, intravenously, one time only. See table below for maximum dose, unless otherwise authorized by radiologist. If exam has been completed before the entire dose has been administered, stop the injection. Multiple doses of iodine contrast within a 24-hour period are a risk factor for RIC and should be avoided if possible. Emergent or other unusual circumstances where multiple doses of contrast are required in a short interval time should prompt consideration by the referring professional and radiologist to discuss the risks and benefits of contrast media administration. If exam not included in table below, contact radiologist for orders. Procedure Maximum Dose CT Head with Contrast Up to [address] Chest with Contrast Up to [address] Maxillofacial with Contrast Up to [address] Soft Tissue Neck with Contrast CT Chest Abdomen Pelvis with Contrast CT Chest Abdomen with Contrast CT Abdomen Pelvis with Contrast CT Pelvis with Contrast CT Angiogram Examinations (all) CT Soft Tissue Neck and Chest Abdomen Pelvis with Contrast Up to [address] Soft Tissue Neck and Chest with Contrast CT Urogram with Contrast CT IV CONTRAST PROTOCOLS for PEDIATRICS PEDIATRICS: Use weight-based dosing if patient is less than 55kg and confirm dose with radiologist. [place] to 15 years old Administer 2.2mL/kg (to MAX of 80 mL) of Iopamidol (Isovue-300) 61%, intravenously, one time only 15 years old and older Administer 2.2mL/kg (to MAX of 150mL) of Iopamidol (Isovue-300) 61%, intravenously, one time only PROCEDURE SPECIFIC MRI MEDICATIONS: MRI ENTEROGRAPHY: GLUGACON ADMINISTRATION Nurse will enter the following medication orders for MRI Enterography if not otherwise ordered. ADULTS: (patient 18 years or older) If the patient is diabetic, call the radiologist to verify administration of Glucagon For Outpatients: Patient will receive 2 doses of Glucagon one dose 0.5mg IM administered by nurse prior to the MRI exam beginning 2nd dose 0.5mg IV prior to the IV contrast being administered. For Inpatients: Patient will receive 1 dose of Glucagon 1 mg IV, administered by nurse prior to thestarting the MRI exam. PEDIATRICS: If the patient is diabetic call the radiologist to verify administration of Glucagon Outpatient pediatric patient: Pediatric patient weighing 24.9 kg or less should have one dose of Glucagon 0.5mg IM administered by nurse prior to MRI exam beginning. Pediatric patient weighing 25 kg or greater should have one dose of Glucagon 1 mg IM administered by nurse prior to the MRI exam beginning. Inpatient pediatric patient: Pediatric patient weighing 24.9 kg or less should have one dose of Glucagon 0.5 mg IV administered by nurse prior to MRI exam beginning. Pediatric patient weighing 25 kg or greater should have one dose of Glucagon 1 mg IV administered by nurse prior to the MRI exam beginning. MRI UROGRAM: LASIX ADMINISTRATION Nurse will enter the following medication orders for MRI Enterography if not otherwise ordered. ADULTS: Call radiologist with any questions regarding administration of Lasix Lasix 0.1mg per kg with a minimum dose of Lasix 5mg IV being given up to a max dose of Lasix 10mg IV being given. The Lasix should be administered by nurse prior to the IV contrast being administered. (Hold Lasix if: obstruction, anuria and hypersensitivity to furosemide, and electrolyte imbalance or hypotension should be corrected by nurse before administering) MRI IV CONTRAST PROTOCOLS ADULTS: Multihance and Prohance can be used for most MRI scans Prohance should be used primarily. Multihance is useful in specific circumstances as directed by the radiologist or per the appropriate sections established protocols. Group I gadolinium contrast agents shall not be administered. Generally, multiple doses of gadolinium contrast should not be administered within a 24-hour period. In emergent or other unusual circumstances where this is necessary, only Group II agents should beadministered. For Liver Studies: Contact radiologist to determine use of one of the following: Gadobenate Dimeglumine (Multihance) (0.1mmol/0.2mL), Administer 0.1mmol/kg = 0.2mL/kg up to MAX of 20 mL, intravenously, one time only Gadoteridol (Prohance) (0.1mmol/0.2mL), Administer 0.1mmol/kg = 0.2mL/kg up to MAX of 20mL, intravenously, one time only Gadoxetate (Eovist) (2.5 mmol/10mL), Administer 0.025mmol/kg = 0.1mL/kg up to MAX of 10mL, intravenously, one time only PEDIATRICS: Radiologist to determine need for contrast Term neonates up to 2 years: Gadobuterol (Gadavist) (1mmol/mL injection), Administer 0.1mmol/kg = 0.1mL/kg up to MAX of 14mmol=14mL, intravenously, one time only OR Gadobenate Dimeglumine (Multihance) (0.1mmol/mL), Administer 0.1mmol/kg = 0.1mL/kg up to MAX of 14mmol = 14mL, intravenously, one time only 2 years and older Gadobenate Dimeglumine (Multihance) (0.1mmol/0.2mL), Administer 0.1mmol/kg = 0.2mL/kg up to MAX of 20mL, intravenously, one time only OR Gadoteridol (Prohance) (0.1mmol/0.2mL), Administer 0.1mmol/kg = 0.2mL/kg up to MAX of 20mL, intravenously, one time only TABLE 1. ACR Manual Classification of Gadolinium-Based Agents Relative to Nephrogenic Systemic Fibrosis Group I: Agents associated with the greatest number of NSF cases: Gadodiamide (Omniscan?? - Stream[employer]) Gadopentetate dimeglumine (Magnevist?? - Agent Partner) Gadoversetamide (OptiMARK?? - Guerbet) Group II: Agents associated with few, if any, unconfounded cases of NSF: Gadobenate dimeglumine (MultiHance?? - uberVUo Diagnostics) Gadobutrol (Gadavist?? - V[employer]; Gadovist in many countries) Gadoteric acid (Dotarem?? - Guerbet, Clariscan - [employer]) Gadoteridol (ProHance?? - BrightQubecco [employer]) Group III: Agents for which data remains limited regarding NSF risk, but for which few, if any unconfounded cases of NSF have been reported: Gadoxetate disodium (Eovist - Agent Partner; Primovist in many countries) documented in this encounter Plan of Treatment Upcoming Encounters Date Type Department Care Team (Late st Contact Info) Description 10/04/2024 10:00 AM [employer] Office Visit [facility] [address] [place] [address] Harris Fischer MD [address] [phone] Scheduled Orders Name Type Priority Associated Diagnoses Orde r Schedule XR LUMBAR SPINE 2 OR 3 VW Imaging Routine Epidural abscess Osteomyelitis of lumbar spine Expected: 09/30/2024, Expires: 06/30/2025 documented as of this encounter Procedures Procedure Name Priority Date/Time Associated Diagnosis Comments XR CHEST PA OR AP 1 VW Stat 07/09/2024 2:52 PM CDT POC GLUCOSE Routine 07/07/2024 9:25 PM CDT POC GLUCOSE Routine 07/07/2024 5:10 PM CDT POC GLUCOSE Routine 07/07/2024 12:26 PM CDT POC GLUCOSE Routine 07/07/2024 7:39 AM CDT CBC WITH DIFFERENTIAL Routine 07/07/2024 5:10 AM CDT BASIC METABOLIC PANEL Routine 07/07/2024 5:10 AM CDT POC GLUCOSE [...] POC GLUCOSE Routine 07/04/2024 7:44 AM CDT CBC WITH DIFFERENTIAL Routine 07/04/2024 6:41 AM CDT BASIC METABOLIC PANEL Routine 07/04/2024 6:41 AM CDT POC GLUCOSE [...] IR BIOPSY Routine 06/28/2024 11:15 AM CDT POC GLUCOSE Routine 06/28/2024 8:00 AM CDT POC GLUCOSE Routine 06/28/2024 4:15 AM CDT POC GLUCOSE Routine 06/28/2024 12:04 AM CDT POC GLUCOSE Routine 06/27/2024 9:07 PM CDT POC GLUCOSE Routine 06/27/2024 4:51 PM CDT BLOOD CULTURE Routine 06/27/2024 2:44 PM CDT BLOOD CULTURE Routine 06/27/2024 2:44 PM CDT PROTIME-INR Stat 06/27/2024 2:32 PM CDT BLOOD CULTURE Routine 06/27/2024 2:31 PM CDT CBC WITH DIFFERENTIAL Stat 06/27/2024 2:31 PM CDT BLOOD CULTURE Routine 06/27/2024 2:31 PM CDT SEDIMENTATION RATE Routine 06/27/2024 2: 31 PM CDT C-REACTIVE PROTEIN Routine 06/27/2024 2: 31 PM CDT PHOSPHORUS Routine 06/27/2024 2:31 PM CDT MAGNESIUM LEVEL Routine 06/27/2024 2:31 PM CDT COMPREHENSIVE METABOLIC PANEL Stat 06/27/2024 2:31 PM CDT POC GLUCOSE Routine 06/27/2024 12:50 PM CDT POC GLUCOSE Routine 06/27/2024 8:18 AM CDT EKG 12-LEAD Routine 06/27/2024 7:04 AM CDT MRI LUMBAR W WO CONTRAST Routine 06/27/2024 3:43 AM CDT POC GLUCOSE Routine 06/27/2024 1:09 AM CDT documented in this encounter Results * XR CHEST PA OR AP 1 VW (07/09/2024 2:52 PM CDT) Anatomical Region Laterality Modality Chest Computed Radiogr aphy 07/09/2024 2:53 PM CDT Impressions 07/09/2024 3:30 PM CDT IMPRESSION: No active disease. ?? DICTATION LOCATION: Location 1 - [facility] Narrative 07/09/2024 3:30 PM CDT XR CHEST [...] IMPRESSION: No active disease. DICTATION LOCATION: Location [address] [place] [address] Sydnie Sequeira MD DIAGNOSTIC IMAGING O RDERABLES * (ABNORMAL) POC GLUCOSE (07/07/2024 9:25 PM CDT) GLUCOSE POC 127(H) 74 - 99 mg/dL 07/07/2024 9:25 PM CDT [facility] - [facility] SPECIMEN SOURCE, GLUCOSE POC Whole Blood 07/07/2024 9:25 PM CDT [facility] COMMENT, GLU POC Notified RN/ 07/07/2024 9:25 PM CDT [facility] Blood, whole 07/07/2024 9:25 PM CDT 07/07/2024 9:33 PM CDT Sydnie Sequeira MD POINT OF CARE TESTRYDER [place] [facility] CLIA# [id number] [address] [place] [address] * (ABNORMAL) POC GLUCOSE (07/07/2024 5:10 PM CDT) GLUCOSE POC 117(H) 74 - 99 mg/dL 07/07/2024 5:10 PM CDT [facility] - [facility] SPECIMEN SOURCE, GLUCOSE POC Whole Blood 07/07/2024 5:10 PM CDT [facility] Blood, whole 07/07/2024 5:10 PM CDT 07/07/2024 5:19 PM CDT Sydnie Sequeira MD POINT OF CARE TESTRYDER [place] Performing Organization Address [facility]/ZIP Co de Phone Number [facility] CLIA# [id number] [address] [place] [address] * POC GLUCOSE (07/07/2024 12:26 PM CDT) GLUCOSE POC 89 74 - 99 mg/dL 07/07/2024 12:26 PM CDT [facility] - [facility] SPECIMEN SOURCE, GLUCOSE POC Whole Blood 07/07/2024 12:26 PM CDT [facility] - [facility] COMMENT, GLU POC Notified RN/MD 07/07/2024 12:26 PM CDT [facility] - [facility] Blood, whole 07/07/2024 12:2 6 PM CDT 07/07/2024 12:34 PM CDT Sydnie Sequeira MD POINT OF CARE TESTRYDER [place] [facility]# [id number] [address] [place] [address] * POC GLUCOSE (07/07/2024 7:39 AM CDT) [facility] GLUCOSE POC 94 74 - 99 mg/dL 07/07/2024 7:39 AM CDT [facility] SPECIMEN SOURCE, GLUCOSE POC Whole Blood 07/07/2024 7:39 AM CDT [facility] - [facility] COMMENT, GLU POC Notified RN/MD 07/07/2024 7:39 AM CDT [facility] - [facility] Blood, whole 07/07/2024 7:39 AM CDT 07/07/2024 7:52 AM CDT Sydnie Sequeira MD POINT OF CARE TESTIN G [facility] SERVICES [facility]# [id number] [address] [place] [address] * (ABNORMAL) BASIC METABOLIC PANEL (07/07/2024 5:10 AM CDT) [facility] SODIUM 142 136 - 145 mmol/L 07/07/2024 5:54 AM CDT [facility] POTASSIUM 4.1 3.5 - 5.0 mmol/L 07/07/2024 5:54 AM T [facility] CHLORIDE 105 98 - 107 mmol/L 07/07/2024 5:54 AM CDT [facility] CO2 30(H) 22 - 29 mmol/L 07/07/2024 5:54 AM CDT [facility] CALCIUM 9.2 8.6 - 10.2 mg/dL 07/07/2024 5:54 AM CDT [facility] BUN 15 8 - 23 mg/dL 07/07/2024 5:54 AM CDT [facility] CREATININE 0.67 0.51 - 0.95 mg/dL 07/07/2024 5:54 [facility] 111(H) 74 - 99 mg/dL 07/07/2024 5:[address] [facility] GFR >60 >=60 mL/min/1.7 3 sq meter 07/07/2024 5:[address] [facility] Comment:eGFR calculated with 2020 CKD-EPI equation. Vegetarian diet, extremely high or low muscle mass, and may affect results. Cystatin C with Glomerular Filtration Rate is a suitable alternative for these patients. ANION GAP 7(L) 8 - 16 mmol/L 07/07/2024 5:54 AM [facility] Blood Venipuncture / Unknown 07/07/2024 5:10 AM CDT 07/07/2024 5:15 AM CDT Sydnie Sequeira MD CHEMISTRY ORDERABLES [facility]# [id number] [address] [place] [address] * (ABNORMAL) CBC WITH DIFFERENTIAL (07/07/2024 5:10 AM CDT) WBC 7.0 4.0 - 9.8 K/uL 07/07/2024 6:[address] [facility] RBC 3.63(L) 3.90 - 4.90 M/uL 07/07/2024 6:08 AM [facility] HEMOGLOBIN 10.3(L) 11.8 - 14.8 g/dL 07/07/2024 6:08 AM [facility] HEMATOCRIT 33.4(L) 35.5 - 44.0 % 07/07/2024 6:08 AM [facility] MCV 92.0 82.0 - 99.0 fL 07/07/2024 6:08 AM [facility] MCH 28.4 27.2 - 32.6 pg 07/07/2024 6:08 AM [facility] MCHC 30.8(L) 31.5 - 35.5 g/dL 07/07/2024 6:08 AM CDT [facility] - . [facility] RDW 16.3(H) 11.5 - 14.5 % 07/07/2024 6:08 AM CDT [facility] - . [facility] RDW-STDEV 54.8(H) 37.1 - 48.7 fL 07/07/2024 6:08 AM CDT [facility] - . [facility] 215 140 - 350 K/uL 07/07/2024 6:08 AM CDT [facility] - . [place] MPV 9.9 9.3 - 12.4 fL 07/07/2024 6:08 AM CDT [facility] - . [place] NEUTROPHILS 54 % 07/07/2024 6:08 AM CDT [facility] - . [facility] LYMPHOCYTES 35 % 07/07/2024 6:08 AM CDT [facility] - . [place] MONOCYTES 8 % 07/07/2024 6:08 AM CDT [facility] - . [place] EOSINOPHILS 3 % 07/07/2024 6:08 AM CDT [facility] - . [place] BASOPHILS 0 % 07/07/2024 6:08 AM CDT [facility] - . [place] IMMATURE GRANULOCYTES 0 % 07/07/2024 6:08 AM [employer] - . [place] NEUTROPHIL ABSOLUTE 3.76 1.90 - 7.00 K/uL 07/07/2024 6:08 AM CDT [facility] - . [facility] LYMPHOCYTE ABSOLUTE 2.42 0.70 - 4.50 K/uL 07/07/2024 6:08 AM CDT [facility] - . [place] MONOCYTE ABSOLUTE 0.56 0.10 - 1.30 K/uL 07/07/2024 6:08 AM CDT [facility] - [facility] EOSINOPHIL ABSOLUTE 0.23 0.00 - 0.70 K/uL 07/07/2024 6:08 AM CDT [facility] - [facility] BASOPHILS ABSOLUTE 0.03 0.00 - 0.20 K/uL 07/07/2024 6:08 AM CDT [facility] - . [place] IMMATURE GRANULOCYTES ABSOLUTE 0.02 0.00 - 0.03 K/uL 07/07/2024 6:08 AM CDT [facility] Blood Venipuncture / Unknown 07/07/2024 5:10 AM CDT 07/07/2024 5:15 AM CDT Sydnie Sequeira MD HEMATOLOGY ORDERABLE S Performing Organization Address [facility]/ZIP Co de Phone Number [facility]# [id number] [address] [place] [address] * (ABNORMAL) POC GLUCOSE (07/06/2024 8:47 PM CDT) GLUCOSE POC 113(H) 74 - 99 mg/dL 07/06/2024 8:47 PM CDT [facility] SPECIMEN SOURCE, GLUCOSE POC Whole Blood 07/06/2024 8:47 PM CDT [facility] COMMENT, GLU POC Notified RN/MD 07/06/2024 8:47 PM CDT [facility] Blood, whole 07/06/2024 8:47 PM CDT 07/06/2024 8:55 PM CDT Sydnie Sequeira MD POINT OF CARE TESTIN G Performing Organization Address [facility] Co de Phone Number [facility]# [id number] [address] [place] [address] * (ABNORMAL) POC GLUCOSE (07/06/2024 5:20 PM CDT) GLUCOSE POC 123(H) 74 - 99 mg/dL 07/06/2024 5:20 PM CDT [facility] SPECIMEN SOURCE, GLUCOSE POC Whole Blood 07/06/2024 5:20 PM CDT [facility] COMMENT, GLU POC Notified RN/MD 07/06/2024 5:20 PM CDT [facility] Blood, whole 07/06/2024 5:20 PM CDT 07/06/2024 5:27 PM CDT Sydnie Sequeira MD POINT OF CARE TESTIN G [facility] [id number] [address] [place] [address] * POC GLUCOSE (07/06/2024 9:10 AM CDT) GLUCOSE POC 91 74 - 99 mg/dL 07/06/2024 9:10 AM CDT [facility] SPECIMEN SOURCE, GLUCOSE POC Whole Blood 07/06/2024 9:10 AM CDT [facility] Blood, whole 07/06/2024 9:10 AM CDT 07/06/2024 9:21 AM CDT Sydnie Sequeira MD POINT OF CARE TESTRYDER Rani Performing Organization Address [facility] Co de Phone Number [facility] CLIA# [id number] [address] [place] [address] * (ABNORMAL) POC GLUCOSE (07/05/2024 9:43 PM CDT) GLUCOSE POC 114(H) 74 - 99 mg/dL 07/05/2024 9:43 PM CDT [facility] SPECIMEN SOURCE, GLUCOSE POC Whole Blood 07/05/2024 9:43 PM CDT [facility] Blood, whole 07/05/2024 9:43 PM CDT 07/05/2024 9:54 PM CDT Sydnie Sequeira MD POINT OF CARE TESTIN Rani Performing Organization Address City/[facility]/ZIP Co de Phone Number [facility] CLIA# [id number] [address] [place] [address] * (ABNORMAL) POC GLUCOSE (07/05/2024 4:48 PM CDT) GLUCOSE POC 114(H) 74 - 99 mg/dL 07/05/2024 4:48 PM CDT [facility] SPECIMEN SOURCE, GLUCOSE POC Whole Blood 07/05/2024 4:48 PM CDT [facility] Blood, whole 07/05/2024 4:48 PM CDT 07/05/2024 4:56 PM CDT Sydnie Sequeira MD POINT OF CARE TESTIN G Performing Organization Address [facility]/ZIP Co de Phone Number [facility] CLIA# [id number] [address] [place] [address] * POC GLUCOSE (07/05/2024 12:38 PM CDT) GLUCOSE POC 99 74 - 99 mg/dL 07/05/2024 12:38 PM CDT [facility] SPECIMEN SOURCE, GLUCOSE POC Whole Blood 07/05/2024 12:38 PM CDT [facility] Blood, whole 07/05/2024 12:3 8 PM CDT 07/05/2024 12:52 PM CDT Sydnie Sequeira MD POINT OF CARE TESTRYDER G Performing Organization Address City/[facility]/ZIP Co de Phone Number [facility] CLIA# [id number] [address] [place] [address] * POC GLUCOSE (07/05/2024 7:52 AM CDT) GLUCOSE POC 96 74 - 99 mg/dL 07/05/2024 7:52 AM CDT [facility] SPECIMEN SOURCE, GLUCOSE POC Whole Blood 07/05/2024 7:52 AM CDT [facility] Blood, whole 07/05/2024 7:52 AM CDT 07/05/2024 8:01 AM CDT Sydnie Sequeira MD POINT OF CARE TESTIN G [facility] CLIA# [id number] [address] [place] [address] * (ABNORMAL) POC GLUCOSE (07/04/2024 4:57 PM CDT) GLUCOSE POC 111(H) 74 - 99 mg/dL 07/04/2024 4:57 PM CDT [facility] SPECIMEN SOURCE, GLUCOSE POC Whole Blood 07/04/2024 4:57 PM CDT [facility] COMMENT, GLU POC Notified RN/MD 07/04/2024 4:57 PM CDT [facility] Blood, whole 07/04/2024 4:57 PM CDT 07/04/2024 5:05 PM CDT Sydnie Sequeira MD POINT OF CARE TESTRYDER Saravia Performing Organization Address [facility]/ZIP Co de Phone Number [facility] CLIA# [id number] [address] [place] [address] * (ABNORMAL) POC GLUCOSE (07/04/2024 11:38 AM CDT) GLUCOSE POC 109(H) 74 - 99 mg/dL 07/04/2024 11:38 AM CDT [facility] SPECIMEN SOURCE, GLUCOSE POC Whole Blood 07/04/2024 11:38 AM CDT [facility] COMMENT, GLU POC Notified RN/MD 07/04/2024 11:38 AM CDT [facility] Blood, whole 07/04/2024 11:3 8 AM CDT 07/04/2024 11:45 AM CDT Sydnie Sequeira MD POINT OF CARE TESTRYDER Saravia [facility]# [id number] [address] [place] [address] * (ABNORMAL) POC GLUCOSE (07/04/2024 7:44 AM CDT) Pathologist [facility] GLUCOSE POC 102(H) 74 - 99 mg/dL 07/04/2024 7:44 AM CDT [facility] - [facility] SPECIMEN SOURCE, GLUCOSE POC Whole Blood 07/04/2024 7:44 AM CDT [facility] - [facility] COMMENT, GLU POC Notified RN/MD 07/04/2024 7:44 AM CDT [facility] - [facility] Blood, whole 07/04/2024 7:44 AM CDT 07/04/2024 7:53 AM CDT Sydnie Sequeira MD POINT OF CARE TESTIN G [facility]# [id number] [address] [place] [address] * (ABNORMAL) BASIC METABOLIC PANEL (07/04/2024 6:41 AM CDT) [facility] SODIUM 143 136 - 145 mmol/L 07/04/2024 7:28 AM T [facility] POTASSIUM 4.2 3.5 - 5.0 mmol/L 07/04/2024 7:28 AM T [facility] CHLORIDE 107 98 - 107 mmol/L 07/04/2024 7:28 AM T [facility] - [facility] CO2 30(H) 22 - 29 mmol/L 07/04/2024 7:28 AM T [facility] - [facility] CALCIUM 9.2 8.6 - 10.2 mg/dL 07/04/2024 7:28 AM T [facility] - [facility] BUN 15 8 - 23 mg/dL 07/04/2024 7:28 AM T [facility] - [facility] CREATININE 0.68 0.51 - 0.95 mg/dL 07/04/2024 7:28 AM [facility] GLUCOSE 101(H) 74 - 99 mg/dL 07/04/2024 7:28 AM T [facility] GFR >60 >=60 mL/min/1.7 3 sq meter 07/04/2024 7:28 AM [facility] Comment:eGFR calculated with 2020 CKD-EPI equation. Vegetarian diet, extremely high or low muscle mass, and may affect results. Cystatin C with Glomerular Filtration Rate is a suitable alternative for these patients. ANION GAP 6(L) 8 - 16 mmol/L 07/04/2024 7:28 AM [facility] Blood Venipuncture / Unknown 07/04/2024 6:41 AM CDT 07/04/2024 6:51 AM CDT Sydnie Sequeira MD CHEMISTRY ORDERABLES [facility] CLIA# [id number] [address] [place] [address] * (ABNORMAL) CBC WITH DIFFERENTIAL (07/04/2024 6:41 AM CDT) WBC 7.0 4.0 - 9.8 K/uL 07/04/2024 7:34 AM [facility] RBC 3.79(L) 3.90 - 4.90 M/uL 07/04/2024 7:34 AM [facility] HEMOGLOBIN 10.9(L) 11.8 - 14.8 g/dL 07/04/2024 7:34 AM T [facility] HEMATOCRIT 35.2(L) 35.5 - 44.0 % 07/04/2024 7:34 AM T [facility] MCV 92.9 82.0 - 99.0 fL 07/04/2024 7:34 AM T [facility] MCH 28.8 27.2 - 32.6 pg 07/04/2024 7:34 AM T [facility] MCHC 31.0(L) 31.5 - 35.5 g/dL 07/04/2024 7:34 AM CDT [facility] RDW 16.4(H) 11.5 - 14.5 % 07/04/2024 7:34 AM CDT [facility] RDW-STDEV 56.4(H) 37.1 - 48.7 fL 07/04/2024 7:34 AM CDT [facility] PLATELETS 248 140 - 350 K/uL 07/04/2024 7:34 AM CDT [facility] MPV 10.0 9.3 - 12.4 fL 07/04/2024 7:34 AM CDT [facility] NEUTROPHILS 57 % 07/04/2024 7:34 AM CDT [facility] LYMPHOCYTES 30 % 07/04/2024 7:34 AM CDT [facility] MONOCYTES 9 % 07/04/2024 7:34 AM CDT [facility] EOSINOPHILS 4 % 07/04/2024 7:34 AM CDT [facility] BASOPHILS 0 % 07/04/2024 7:34 AM CDT [facility] IMMATURE GRANULOCYTES 0 % 07/04/2024 7:34 AM CDT [facility] NEUTROPHIL ABSOLUTE 4.01 1.90 - 7.00 K/uL 07/04/2024 7:34 AM CDT [facility] LYMPHOCYTE ABSOLUTE 2.08 0.70 - 4.50 K/uL 07/04/2024 7:34 AM CDT [facility] MONOCYTE ABSOLUTE 0.60 0.10 - 1.30 K/uL 07/04/2024 7:34 AM CDT [facility] EOSINOPHIL ABSOLUTE 0.28 0.00 - 0.70 K/uL 07/04/2024 7:34 AM CDT [facility] BASOPHILS ABSOLUTE 0.03 0.00 - 0.20 K/uL 07/04/2024 7:34 AM CDT [facility] IMMATURE GRANULOCYTES ABSOLUTE 0.01 0.00 - 0.03 K/uL 07/04/2024 7:34 AM CDT [facility] Blood Venipuncture / Unknown 07/04/2024 6:41 AM CDT 07/04/2024 6:51 AM CDT Sydnie Sequeira MD [facility]OLOG[facility]ABLE [id number] [address] [place] [address] * (ABNORMAL) POC GLUCOSE (07/03/2024 10:51 PM CDT) GLUCOSE POC 116(H) 74 - 99 mg/dL 07/03/2024 10:51 PM CDT [facility] SPECIMEN SOURCE, GLUCOSE POC Whole Blood 07/03/2024 10:51 PM CDT [facility] Blood, whole 07/03/2024 10:5 1 PM CDT 07/03/2024 11:12 PM CDT Sydnie Sequeira MD POINT OF CARE TESTIN G Performing Organization Address City/[facility]/ZIP Co de Phone Number [facility] CLIA# [id number] [address] [place] [address] * (ABNORMAL) POC GLUCOSE (07/03/2024 5:22 PM CDT) GLUCOSE POC 110(H) 74 - 99 mg/dL 07/03/2024 5:22 PM CDT [facility] SPECIMEN SOURCE, GLUCOSE POC Whole Blood 07/03/2024 5:22 PM CDT [facility] COMMENT, GLU POC Notified RN/MD 07/03/2024 5:22 PM CDT [facility] Blood, whole 07/03/2024 5:22 PM CDT 07/03/2024 5:31 PM CDT Sydnie Sequeira MD POINT OF CARE TESTIN G Performing Organization Address City/[facility]/ZIP Co de Phone Number [facility] CLIA# [id number] [address] [place] [address] * POC GLUCOSE (07/03/2024 1:41 PM CDT) GLUCOSE POC 78 74 - 99 mg/dL 07/03/2024 1:41 PM CDT [facility] SPECIMEN SOURCE, GLUCOSE POC Whole Blood 07/03/2024 1:41 PM CDT [facility] COMMENT, GLU POC Notified RN/MD 07/03/2024 1:41 PM CDT [facility] Blood, whole 07/03/2024 1:41 PM CDT 07/03/2024 1:49 PM CDT Sydnie Sequeira MD POINT OF CARE TESTIN Rani Performing Organization Address [facility]/ZIP Co de Phone Number [facility] CLIA# [id number] [address] [place] [address] * (ABNORMAL) POC GLUCOSE (07/03/2024 8:40 AM CDT) GLUCOSE POC 102(H) 74 - 99 mg/dL 07/03/2024 8:40 AM CDT [facility] SPECIMEN SOURCE, GLUCOSE POC Whole Blood 07/03/2024 8:40 AM CDT [facility] COMMENT, GLU POC Notified RN/MD 07/03/2024 8:40 AM CDT [facility] Blood, whole 07/03/2024 8:40 AM CDT 07/03/2024 8:49 AM CDT Sydnie Sequeira MD POINT OF CARE TESTIN G [facility] CLIA# [id number] [address] [place] [address] * (ABNORMAL) POC GLUCOSE (07/02/2024 10:39 PM CDT) GLUCOSE POC 155(H) 74 - 99 mg/dL 07/02/2024 10:39 PM CDT [facility] SERVICES - [facility] SPECIMEN SOURCE, GLUCOSE POC Whole Blood 07/02/2024 10:39 PM CDT [facility] - [facility] Blood, whole 07/02/2024 10:3 9 PM CDT 07/02/2024 10:47 PM CDT Mia Fowler MD POINT OF CARE TESTIN G Performing Organization Address [facility]/State/ZIP Co de Phone Number [facility] CLIA# [id number] [address] [place] [address] * (ABNORMAL) POC GLUCOSE (07/02/2024 6:36 PM CDT) GLUCOSE POC 132(H) 74 - 99 mg/dL 07/02/2024 6:36 PM CDT [facility] SPECIMEN SOURCE, GLUCOSE POC Whole Blood 07/02/2024 6:36 PM CDT [facility] Blood, whole 07/02/2024 6:36 PM CDT 07/02/2024 6:45 PM CDT Mia Fowler MD POINT OF CARE TESTRYDER G [facility] CLIA# [id number] [address] [place] [address] * (ABNORMAL) POC GLUCOSE (07/02/2024 1:41 PM CDT) GLUCOSE POC 102(H) 74 - 99 mg/dL 07/02/2024 1:41 PM CDT [facility] SPECIMEN SOURCE, GLUCOSE POC Whole Blood 07/02/2024 1:41 PM CDT [facility] Blood, whole 07/02/2024 1:41 PM CDT 07/02/2024 1:53 PM CDT Mia Fowler MD POINT OF CARE TESTIN G Performing Organization Address [facility] Co de Phone Number [facility]# [id number] [address] [place] [address] * MRSA PCR RAPID SCREEN (07/02/2024 9:50 AM CDT) MRSA PCR RESULT MRSA not detected MRSA not detected 07/02/2024 11:21 AM CDT [facility] Surveillance ANTERIOR NARES SWAB / Unknown Collection / Unknown 07/02/2024 9:50 AM CDT 07/02/2024 9:56 AM CDT Narrative [facility] - 07/02/2024 11:21 AM CDT This assay is used to detect Methicillin-Resistant S. aureus (MRSA) colonization of the nares. PLEASE NOTE: ??This test has not been approved to monitor effectiveness of MRSA decolonization. Residual DNA may temporarily be present after successful decolonization. This test was performed using an FDA approved screening methodology. Indio Oliver MD MICROBIOLOGY - [facility] AL ORDERABLES Performing Organization Address [facility] Co de Phone Number [facility]# [id number] [address] [place] [address] * (ABNORMAL) VANCOMYCIN LEVEL TROUGH (07/02/2024 9:48 AM CDT) Pathologist [facility] VANCOMYCIN, TROUGH 18.7(H) 10.0 - 17.0 ug/mL 07/02/2024 10:41 AM CDT [facility] Blood Collection / Unknown 07/02/2024 9:48 AM CDT 07/02/2024 9:56 AM CDT Mia Fowler MD CHEMISTRY ORDERABLES Performing Organization Address [facility]/ZIP Co de Phone Number [facility]# [id number] [address] [place] [address] * IR VENOUS ACCESS (07/02/2024 8:56 AM CDT) Narrative 07/02/2024 8:56 AM CDT Order information only. ??Exam was auto-finalized. ?? Indio Oliver MD IR ORDERABLES * (ABNORMAL) POC GLUCOSE (07/02/2024 8:08 AM CDT) GLUCOSE POC 113(H) 74 - 99 mg/dL 07/02/2024 8:08 AM CDT [facility] SPECIMEN SOURCE, GLUCOSE POC Whole Blood 07/02/2024 8:08 AM CDT [facility] Blood, whole 07/02/2024 8:08 AM CDT 07/02/2024 9:03 AM CDT Mia Fowler MD POINT OF CARE TESTIN G Performing Organization Address [facility] Co de Phone Number [facility]# [id number] [address] [place] [address] * (ABNORMAL) POC GLUCOSE (07/01/2024 11:37 PM CDT) GLUCOSE POC 124(H) 74 - 99 mg/dL 07/01/2024 11:37 PM CDT [facility] SPECIMEN SOURCE, GLUCOSE POC Whole Blood 07/01/2024 11:37 PM CDT [facility] Blood, whole 07/01/2024 11:3 7 PM CDT 07/01/2024 11:44 PM CDT Mia Fowler MD POINT OF CARE TESTIN G [facility] CLIA# [id number] [address] [place] [address] * (ABNORMAL) POC GLUCOSE (07/01/2024 7:24 PM CDT) GLUCOSE POC 129(H) 74 - 99 mg/dL 07/01/2024 7:24 PM CDT [facility] SERVICES [facility] SPECIMEN SOURCE, GLUCOSE POC Whole Blood 07/01/2024 7:24 PM CDT [facility] SERVICES [facility] Blood, whole 07/01/2024 7:24 PM CDT 07/01/2024 7:48 PM CDT Mia Fowler MD POINT OF CARE TESTRYDER Rani Performing Organization Address [facility]/ZIP Co de Phone Number [facility] CLIA# [id number] [address] [place] [address] * POC GLUCOSE (07/01/2024 12:25 PM CDT) GLUCOSE POC 87 74 - 99 mg/dL 07/01/2024 12:25 PM CDT [facility]ORY SERVICES - [facility] SPECIMEN SOURCE, GLUCOSE POC Whole Blood 07/01/2024 12:25 PM CDT [facility] SERVICES [facility] COMMENT, GLU POC Notified RN/MD 07/01/2024 12:25 PM CDT [facility] Blood, whole 07/01/2024 12:2 5 PM CDT 07/01/2024 12:36 PM CDT Mia Fowler MD POINT OF CARE TESTIN Rani [facility] CLIA# [id number] [address] [place] [address] * (ABNORMAL) POC GLUCOSE (07/01/2024 7:50 AM CDT) GLUCOSE POC 100(H) 74 - 99 mg/dL 07/01/2024 7:50 AM CDT [facility]ORY SERVICES - [facility] SPECIMEN SOURCE, GLUCOSE POC Whole Blood 07/01/2024 7:50 AM CDT [facility] SERVICES [facility] COMMENT, GLU POC Notified RN/MD 07/01/2024 7:50 AM CDT [facility] SERVICES - [facility] Blood, whole 07/01/2024 7:50 AM CDT 07/01/2024 8:07 AM CDT Mia Fowler MD POINT OF CARE TESTRYDER Saravia [facility] CLIA# [id number] [address] [place] [address] * (ABNORMAL) POC GLUCOSE (06/30/2024 8:22 PM CDT) GLUCOSE POC 105(H) 74 - 99 mg/dL 06/30/2024 8:22 PM CDT [facility]ORY SERVICES - [facility] SPECIMEN SOURCE, GLUCOSE POC Whole Blood 06/30/2024 8:22 PM CDT [facility] Blood, whole 06/30/2024 8:22 PM CDT 06/30/2024 10:04 PM CDT Mia Fowler MD POINT OF CARE TESTRYDER Saravia [facility] CLIA# [id number] [address] [place] [address] * POC GLUCOSE (06/30/2024 1:23 PM CDT) GLUCOSE POC 99 74 - 99 mg/dL 06/30/2024 1:23 PM CDT [facility] SPECIMEN SOURCE, GLUCOSE POC Whole Blood 06/30/2024 1:23 PM CDT [facility] Blood, whole 06/30/2024 1:23 PM CDT 06/30/2024 1:37 PM CDT Mia Fowler MD POINT OF CARE TESTIN G [facility] CLIA# [id number] [address] [place] [address] * (ABNORMAL) VANCOMYCIN LEVEL TROUGH (06/30/2024 12:39 PM CDT) VANCOMYCIN, TROUGH 22.9(H) 10.0 - 17.0 ug/mL 06/30/2024 1:13 PM CDT [facility] Blood Venipuncture / Unknown 06/30/2024 12:39 PM CDT 06/30/2024 12:44 PM CDT Indio Oliver MD CHEMISTRY ORDERABLES Performing Organization Address [facility]/ZIP Co de Phone Number [facility] CLIA# [id number] [address] [place] [address] * POC GLUCOSE (06/30/2024 9:39 AM CDT) GLUCOSE POC 94 74 - 99 mg/dL 06/30/2024 9:39 AM CDT [facility] SPECIMEN SOURCE, GLUCOSE POC Whole Blood 06/30/2024 9:39 AM CDT [facility] COMMENT, GLU POC Notified RN/MD 06/30/2024 9:39 AM CDT [facility] Blood, whole 06/30/2024 9:39 AM CDT 06/30/2024 9:50 AM CDT Mia Fowler MD POINT OF CARE TESTIN G Performing Organization Address City/[facility]/ZIP Co de Phone Number [facility] CLIA# [id number] [address] [place] [address] * (ABNORMAL) POC GLUCOSE (06/29/2024 9:16 PM CDT) GLUCOSE POC 126(H) 74 - 99 mg/dL 06/29/2024 9:16 PM CDT [facility] SPECIMEN SOURCE, GLUCOSE POC Whole Blood 06/29/2024 9:16 PM CDT [facility] COMMENT, GLU POC Notified RN/MD 06/29/2024 9:16 PM CDT [facility] Blood, whole 06/29/2024 9:16 PM CDT 06/29/2024 9:25 PM CDT Mia Fowler MD POINT OF CARE TESTIN G [facility]# [id number] [address] [place] [address] * XR LUMBAR SPINE 2 OR 3 [...] Jose [facility] O RDERABLES * (ABNORMAL) BASIC METABOLIC PANEL (06/29/2024 2:10 PM CDT) SODIUM 141 136 - 145 mmol/L 06/29/2024 3:32 PM CDT [facility] - [facility] POTASSIUM 3.8 3.5 - 5.0 mmol/L 06/29/2024 3:32 PM CDT [facility] - . [facility] CHLORIDE 106 98 - 107 mmol/L 06/29/2024 3:32 PM CDT [facility] CO2 28 22 - 29 mmol/L 06/29/2024 3:32 PM CDT [facility] CALCIUM 8.9 8.6 - 10.2 mg/dL 06/29/2024 3:32 PM CDT [facility] BUN 12 8 - 23 mg/dL 06/29/2024 3:32 PM CDT [facility] - . [facility] CREATININE 0.88 0.51 - 0.95 mg/dL 06/29/2024 3:32 PM CDT [facility] GLUCOSE 129(H) 74 - 99 mg/dL 06/29/2024 3:32 PM CDT [facility] GFR >60 >=60 mL/min/1.7 3 sq meter 06/29/2024 3:32 PM CDT [facility] Comment:eGFR calculated with 2020 CKD-EPI equation. Vegetarian diet, extremely high or low muscle mass, and may affect results. Cystatin C with Glomerular Filtration Rate is a suitable alternative for these patients. ANION GAP 7(L) 8 - 16 mmol/L 06/29/2024 3:32 PM CDT [facility] Blood Venipuncture / Unknown 06/29/2024 2:10 PM CDT 06/29/2024 2:30 PM CDT Kt Bruner MD CHEMISTRY ORDERABLES [facility] CLIA# [id number] [address] [place] [address] * (ABNORMAL) POC GLUCOSE (06/29/2024 12:31 PM CDT) Pathologist [facility] GLUCOSE POC 117(H) 74 - 99 mg/dL 06/29/2024 12:31 PM CDT [facility] SPECIMEN SOURCE, GLUCOSE POC Whole Blood 06/29/2024 12:31 PM CDT [facility] COMMENT, GLU POC Notified RN/ 06/29/2024 12:31 PM CDT [facility] Blood, whole 06/29/2024 12:3 1 PM CDT 06/29/2024 12:38 PM CDT Mia Fowler MD POINT OF CARE TESTIN G [facility] CLIA# [id number] [address] [place] [address] * (ABNORMAL) CBC WITH DIFFERENTIAL (06/29/2024 9:24 AM CDT) Pathologist [facility] WBC 8.7 4.0 - 9.8 K/uL 06/29/2024 10:35 AM CDT [facility] RBC 3.90 3.90 - 4.90 M/uL 06/29/2024 10:35 AM CDT [facility] HEMOGLOBIN 11.6(L) 11.8 - 14.8 g/dL 06/29/2024 10:35 AM CDT [facility] HEMATOCRIT 39.6 35.5 - 44.0 % 06/29/2024 10:35 AM CDT [facility] MCV 101.5(H) 82.0 - 99.0 fL 06/29/2024 10:35 AM CDT [facility] MCH 29.7 27.2 - 32.6 pg 06/29/2024 10:35 AM CDT [facility] - . [facility] MCHC 29.3(L) 31.5 - 35.5 g/dL 06/29/2024 10:35 AM [facility] - [facility] RDW 16.5(H) 11.5 - 14.5 % 06/29/2024 10:35 AM CDT [facility] [place] RDW-STDEV 61.5(H) 37.1 - 48.7 fL 06/29/2024 10:35 AM [facility] PLATELETS 211 140 - 350 K/uL 06/29/2024 10:35 AM [facility] MPV 10.7 9.3 - 12.4 fL 06/29/2024 10:35 AM CDT [facility] NEUTROPHILS 66 % 06/29/2024 10:35 AM CDT [facility] LYMPHOCYTES 25 % 06/29/2024 10:35 AM CDT [facility] MONOCYTES 6 % 06/29/2024 10:35 AM CDT [facility] EOSINOPHILS 2 % 06/29/2024 10:35 AM CDT [facility] BASOPHILS 0 % 06/29/2024 10:35 AM CDT [facility] IMMATURE GRANULOCYTES 0 % 06/29/2024 10:35 AM CDT [facility] - [facility] NEUTROPHIL ABSOLUTE 5.74 1.90 - 7.00 K/uL 06/29/2024 10:35 AM CDT [facility] - [facility] LYMPHOCYTE ABSOLUTE 2.20 0.70 - 4.50 K/uL 06/29/2024 10:35 AM CDT [facility] - . [facility] MONOCYTE ABSOLUTE 0.49 0.10 - 1.30 K/uL 06/29/2024 10:35 AM CDT [facility] - . [place] EOSINOPHIL ABSOLUTE 0.19 0.00 - 0.70 K/uL 06/29/2024 10:35 AM CDT [facility] - . [place] BASOPHILS ABSOLUTE 0.03 0.00 - 0.20 K/uL 06/29/2024 10:35 AM CDT [facility] - [facility] IMMATURE GRANULOCYTES ABSOLUTE 0.03 0.00 - 0.03 K/uL 06/29/2024 10:35 AM CDT [facility] Blood Venipuncture / Unknown 06/29/2024 9:24 AM CDT 06/29/2024 9:34 AM CDT Kt Bruner MD HEMATOLOGY ORDERABLE S [facility]# [id number] [address] [place] [address] * (ABNORMAL) POC GLUCOSE (06/29/2024 8:03 AM CDT) GLUCOSE POC 106(H) 74 - 99 mg/dL 06/29/2024 8:03 AM CDT [facility] SPECIMEN SOURCE, GLUCOSE POC Whole Blood 06/29/2024 8:03 AM CDT [facility] Blood, whole 06/29/2024 8:03 AM CDT 06/29/2024 8:11 AM CDT Mia Fowler MD POINT OF CARE TESTIN G [id number] [place] [address] * (ABNORMAL) POC GLUCOSE (06/28/2024 9:16 PM CDT) GLUCOSE POC 142(H) 74 - 99 mg/dL 06/28/2024 9:16 PM CDT [facility] SPECIMEN SOURCE, GLUCOSE POC Whole Blood 06/28/2024 9:16 PM CDT [facility] Blood, whole 06/28/2024 9:16 PM CDT 06/28/2024 9:29 PM CDT Kt Bruner MD POINT OF CARE TESTIN G Performing Organization Address [facility] Co de Phone Number [facility] CLIA# [id number] [address] [place] [address] * ANAEROBIC/AEROBIC CULTURE W GRAM STAIN (06/28/2024 11:21 AM CDT) CULTURE No aerobic or anaerobic growth 07/03/2024 10:19 AM CDT [facility] GRAM STAIN No organisms observed 07/03/2024 10:19 AM CDT [facility] GRAM STAIN 1+ (Rare or Occasional) Polymorphonuclear WBC 07/03/2024 10:19 AM CDT [facility] Tissue (Vertebral body) Collection / Unknown 06/28/2024 11:21 AM CDT 06/28/2024 11:47 AM CDT Simba Song MD MICROBIOLOGY - GENER AL ORDERABLES Performing Organization Address [facility]/ZIP Co de Phone Number [facility] [id number] [address] [place] [address] * PATHOLOGY (06/28/2024 11:21 AM CDT) CASE REPORT Surgical Pathology Report ? Case: [id number] ? Authorizing Provider: ??Simba Song MD ? Collected: ? 06/28/2024 11:21 AM ? Ordering Location: ? [facility] ?Received: ?06/28/2024 02:21 PM ? Orthopaedics ? Pathologist: ? Ye Osborne MD ? Specimen: ?Bone, Vertebral body, L4 ? 4 3:47 PM T [facility] FINAL DIAGNOSIS A. Bone, vertebral body, L4, biopsy - Fragments of viable bone with focally hypercellular marrow with trilineage hematopoiesis - No evidence of malignancy - No evidence of definitive osteomyelitis 4 3:47 PM CDT [facility] S DESCRIPTION Received in one container labeled Keegan Amaya and vertebral body L4 is a 0.6 x 0.3 cm cylindrical core of white-perez bone which is entirely submitted in cassette A1 following decalcification. Cassette(s) decalcified in decal ll at the bench. [facility] 3:[address] [facility] MICROSCOPIC DESCRIPTION The slides are labeled [id number] and Keegan Amaya. This case was seen in consultation with Dr. Janeth Cox who concurs. 3:47 PM T [facility] CLINICAL INFORMATION No Dx found. 3:[address] [facility] COMMENT Special stain, immunohistochemical, and/or in situ hybridization results are interpreted with controls that demonstrate appropriate staining reactions. Note on use of immunohistochemistry reagents and in situ hybridization probes: These tests were developed and their performance characteristics determined by [facility], Department of Laboratory Medicine. It has not [...] part or completely in the following laboratories: [facility], CLIA #[id number] [address] [place] [address] [facility], [place] #[id number] [address] [place] [address] [facility]/[place], [place] #[id number] [address] [place] [address] This report was created with the [employer] voice-activated dictation system. Inherent to this system is the possibility of syntax, grammar, punctuation and other errors that could impact the interpretation of the report. If there are interpretative questions about aspects of this report, please contact the performing pathologist. 3:[address] [facility] Tissue ENTIRE BONE ORGAN / Unknown Collection / Unknown 06/28/2024 11:21 AM CDT 06/28/2024 2:21 PM CDT Simba Song MD PATHOLOGY/CYTOLOGY O RDERABLES [facility] SERVICES [facility]# [id number] [address] [place] [address] * IR BIOPSY (06/28/2024 11:15 AM CDT) Anatomical Region Laterality Modality X-Ray Angiograph y 06/28/2024 11:1 7 AM CDT Impressions 06/28/2024 3:50 PM CDT IMPRESSION: Fluoroscopic guided biopsy of the L4 vertebral body. DICTATION LOCATION: Location 1, [facility] Narrative 06/28/2024 3:50 PM CDT FLUOROSCOPIC-GUIDED PERCUTANEOUS [...] L4 vertebral body. DICTATION LOCATION: Location 1, [facility] Indio Oliver MD IR ORDERABLES * POC GLUCOSE (06/28/2024 8:00 AM CDT) GLUCOSE POC 95 74 - 99 mg/dL 06/28/2024 8:00 AM CDT [facility] SPECIMEN SOURCE, GLUCOSE POC Whole Blood 06/28/2024 8:00 AM CDT [facility] COMMENT, GLU POC Notified RN/ 06/28/2024 8:00 AM CDT [facility] Blood, whole 06/28/2024 8:00 AM CDT 06/28/2024 8:09 AM CDT Kt Bruner MD POINT OF CARE TESTIN G [facility]# [id number] 5 [facility] [address] [address] * (ABNORMAL) POC GLUCOSE (06/28/2024 4:15 AM CDT) GLUCOSE POC 109(H) 74 - 99 mg/dL 06/28/2024 4:15 AM CDT [facility] SERVICES - [facility] SPECIMEN SOURCE, GLUCOSE POC Whole Blood 06/28/2024 4:15 AM CDT [facility] SERVICES - [facility] Blood, whole 06/28/2024 4:15 AM CDT 06/28/2024 4:26 AM CDT Kt Bruner MD POINT OF CARE TESTIN G Performing Organization Address City/[facility]/ZIP Co de Phone Number [facility] CLIA# [id number] [address] [place] [address] * (ABNORMAL) POC GLUCOSE (06/28/2024 12:04 AM CDT) GLUCOSE POC 109(H) 74 - 99 mg/dL 06/28/2024 12:04 AM CDT [facility] - [facility] SPECIMEN SOURCE, GLUCOSE POC Whole Blood 06/28/2024 12:04 AM CDT [facility] - [facility] Blood, whole 06/28/2024 12:0 4 AM CDT 06/28/2024 12:11 AM CDT Kt Bruner MD POINT OF CARE TESTIN G Performing Organization Address City/[facility]/ZIP Co de Phone Number [facility] CLIA# [id number] [address] [place] [address] * (ABNORMAL) POC GLUCOSE (06/27/2024 9:07 PM CDT) GLUCOSE POC 122(H) 74 - 99 mg/dL 06/27/2024 9:07 PM CDT [facility] SERVICES - [facility] SPECIMEN SOURCE, GLUCOSE POC Whole Blood 06/27/2024 9:07 PM CDT [facility] SERVICES - [facility] Blood, whole 06/27/2024 9:07 PM CDT 06/27/2024 9:15 PM CDT Kt Bruner MD POINT OF CARE TESTIN G Performing Organization Address [facility]/ZIP Co de Phone Number [facility]# [id number] [address] [place] [address] * (ABNORMAL) POC GLUCOSE (06/27/2024 4:51 PM CDT) GLUCOSE POC 106(H) 74 - 99 mg/dL 06/27/2024 4:51 PM CDT [facility] SPECIMEN SOURCE, GLUCOSE POC Whole Blood 06/27/2024 4:51 PM CDT [facility] COMMENT, GLU POC Notified RN/MD 06/27/2024 4:51 PM CDT [facility] Blood, whole 06/27/2024 4:51 PM CDT 06/27/2024 5:01 PM CDT Kt Bruner MD POINT OF CARE TESTRYDER G Performing Organization Address [facility] Co de Phone Number [facility]# [id number] [address] [place] [address] * BLOOD CULTURE (06/27/2024 2:44 PM CDT) Pathologist [facility] BLOOD CULTURE No growth 07/02/2024 3:40 PM CDT [facility] Blood (Hand, right) Venipuncture / Unknown 06/27/2024 2:44 PM CDT 06/27/2024 2:51 PM CDT Daljit Bravo MD MICROBIOLOGY - GENERAL ORDERABLES Performing Organization Address [facility]/ZIP Co de Phone Number [facility] CLND# [id number] [address] [place] [address] * PROTIME-INR (06/27/2024 2:32 PM CDT) Pathologist [facility] PROTIME 13.8 12.7 - 15.1 Seconds 06/27/2024 2:53 PM CDT [facility] INR 1.1 0.9 - 1.1 06/27/2024 2:53 PM CDT [facility] Blood Venipuncture / Unknown 06/27/2024 2:32 PM CDT 06/27/2024 2:40 PM CDT Narrative [facility] - 06/27/2024 2:53 PM CDT INR Therapeutic Range: Adult: ?? 2.0 - 3.0 for pulmonary embolism or prophylaxis against venous ?thrombosis or systemic embolization. 2.0 - 3.0 for patients with tissue heart valves. 2.5 - 3.5 for patients with mechanical heart valves or post AL. Pediatric ??(12 years and under): 1.5 - 3.0 Although the target range in children is not well established, ?INR values of 1.5 - 3.0 are recommended for most patients. ?Higher values have been used in children with prosthetic ?cardiac valves and hereditary clotting disorders. [place] (<3 days) therapeutic ranges have not been established. Kt Bruner MD HEMATOLOGY ORDERABLE S [facility]# [id number] [address] [place] [address] * (ABNORMAL) COMPREHENSIVE METABOLIC PANEL (06/27/2024 2:31 PM CDT) [facility] SODIUM 141 136 - 145 mmol/L 06/27/2024 3:15 PM CDT [facility] POTASSIUM 3.8 3.5 - 5.0 mmol/L 06/27/2024 3:15 PM CDT [facility] CHLORIDE 105 98 - 107 mmol/L 06/27/2024 3:15 PM CDT [facility] SERVICES - [facility] CO2 28 22 - 29 mmol/L 06/27/2024 3:15 PM [facility] - [facility] CALCIUM 9.5 8.6 - 10.2 mg/dL 06/27/2024 3:15 PM [facility] - [facility] BUN 10 8 - 23 mg/dL 06/27/2024 3:15 PM [facility] - . [facility] CREATININE 0.63 0.51 - 0.95 mg/dL 06/27/2024 3:15 PM [facility] - . [facility] GLUCOSE 142(H) 74 - 99 mg/dL 06/27/2024 3:15 PM [facility] - . [facility] TOTAL PROTEIN 7.2 6.7 - 8.6 g/dL 06/27/2024 3:15 PM [facility] - . [facility] ALBUMIN 3.7 3.5 - 5.2 g/dL 06/27/2024 3:15 PM [facility] [employer] LABORATORY SERVICES - . [facility] BILIRUBIN TOTAL 0.4 0.2 - 1.1 mg/dL 06/27/2024 3:15 PM [facility] [employer] LABORATORY [facility] - . [facility] ALKALINE PHOSPHATASE 157(H) 35 - 104 U/L 06/27/2024 3:15 PM [facility] - . [facility] AST 18 <33 U/L 06/27/2024 3:15 PM [facility] - . [facility] ALT 10 <34 U/L 06/27/2024 3:15 PM [facility] - . [facility] GFR >60 >=60 mL/min/1.7 3 sq meter 06/27/2024 3:15 PM [facility] [employer] LABORATORY SERVICES - . [facility] Comment:eGFR calculated with 2020 CKD-EPI equation. Vegetarian diet, extremely high or low muscle mass, and may affect results. Cystatin C with Glomerular Filtration Rate is a suitable alternative for these patients. ANION GAP 8 8 - 16 mmol/L 06/27/2024 3:15 PM [facility] Blood Venipuncture / Unknown 06/27/2024 2:31 PM CDT 06/27/2024 2:40 PM CDT Narrative [facility] SERVICES [facility] - 06/27/2024 3:15 PM CDT Samples containing indocyanine green cause interferences on Total and/or Direct Bilirubin and must not be measured. Kt Bruner MD CHEMISTRY ORDERABLES [facility] CLIA# [id number] [address] [facility] [place] [address] * (ABNORMAL) CBC WITH DIFFERENTIAL (06/27/2024 2:31 PM CDT) Pathologist [facility] WBC 7.6 4.0 - 9.8 K/uL 06/27/2024 2:45 PM CDT [facility] SERVICES [facility] RBC 4.20 3.90 - 4.90 M/uL 06/27/2024 2:45 PM CDT [facility]ORY SERVICES - . [place] HEMOGLOBIN 12.0 11.8 - 14.8 g/dL 06/27/2024 2:45 PM CDT [facility] SERVICES [facility] HEMATOCRIT 39.1 35.5 - 44.0 % 06/27/2024 2:45 PM CDT [facility]ORY SERVICES - [facility] MCV 93.1 82.0 - 99.0 fL 06/27/2024 2:45 PM CDT [facility] LABORATORY SERVICES - [facility] MCH 28.6 27.2 - 32.6 pg 06/27/2024 2:45 PM CDT [facility]ORY SERVICES - . [facility] MCHC 30.7(L) 31.5 - 35.5 g/dL 06/27/2024 2:45 PM CDT [facility]ORY SERVICES - [facility] RDW 15.9(H) 11.5 - 14.5 % 06/27/2024 2:45 PM CDT [facility] LABORATORY SERVICES - [facility] RDW-STDEV 53.7(H) 37.1 - 48.7 fL 06/27/2024 2:45 PM CDT [facility] SERVICES - [facility] PLATELETS 274 140 - 350 K/uL 06/27/2024 2:45 PM CDT [facility] SERVICES - [facility] MPV 10.0 9.3 - 12.4 fL 06/27/2024 2:45 PM CDT [facility] LABORATORY SERVICES - . [facility] NEUTROPHILS 71 % 06/27/2024 2:45 PM CDT [facility] SERVICES - . [place] LYMPHOCYTES 20 % 06/27/2024 2:45 PM CDT [facility] MONOCYTES 7 % 06/27/2024 2:45 PM CDT [facility] EOSINOPHILS 1 % 06/27/2024 2:45 PM CDT [facility]ORY SERVICES - . [place] BASOPHILS 0 % 06/27/2024 2:45 PM CDT [facility] SERVICES - . [place] IMMATURE GRANULOCYTES 0 % 06/27/2024 2:45 PM CDT [facility]ORY SERVICES - . [place] NEUTROPHIL ABSOLUTE 5.36 1.90 - 7.00 K/uL 06/27/2024 2:45 PM CDT [facility] LABORATORY SERVICES - . [facility] LYMPHOCYTE ABSOLUTE 1.54 0.70 - 4.50 K/uL 06/27/2024 2:45 PM CDT [facility] SERVICES - . [place] MONOCYTE ABSOLUTE 0.52 0.10 - 1.30 K/uL 06/27/2024 2:45 PM CDT [facility]ORY SERVICES - . [place] EOSINOPHIL ABSOLUTE 0.09 0.00 - 0.70 K/uL 06/27/2024 2:45 PM CDT [facility]ORY SERVICES [facility] BASOPHILS ABSOLUTE 0.03 0.00 - 0.20 K/uL 06/27/2024 2:45 PM CDT [facility] LAB[facility]ATORY SERVICES - . [facility] IMMATURE GRANULOCYTES ABSOLUTE 0.03 0.00 - 0.03 K/uL 06/27/2024 2:45 PM CDT [facility] LAB[facility]ATORY SERVICES - [facility] Blood Venipuncture / Unknown 06/27/2024 2:31 PM CDT 06/27/2024 2:40 PM CDT Kt Bruner MD HEMATOLOGY ORDERABLE S [facility]ORY SERVICES - [facility]# [id number] [address] [facility] [place] [address] * BLOOD CULTURE (06/27/2024 2:31 PM CDT) [facility] BLOOD CULTURE No growth 07/02/2024 3:40 PM CDT [facility] Blood (Arm, right) Venipuncture / Unknown 06/27/2024 2:31 PM CDT 06/27/2024 2:40 PM CDT Daljit Bravo MD MICROBIOLOGY - GENERAL ORDERABLES Performing Organization Address [facility]/State/ZIP Co de Phone Number [facility] CLIA# [id number] [address] [place] [address] * (ABNORMAL) C-REACTIVE PROTEIN (06/27/2024 2:31 PM CDT) [facility] CRP 33.8(H) <5.0 mg/L 06/27/2024 3:15 PM CDT [facility] Blood Venipuncture / Unknown 06/27/2024 2:31 PM CDT 06/27/2024 2:40 PM CDT Daljit Bravo MD CHEMISTRY OR DERABLES Performing Organization Address [facility]/ZIP Co de Phone Number [facility] CLIA# [id number] [address] [place] [address] * (ABNORMAL) SEDIMENTATION RATE (06/27/2024 2:31 PM CDT) [facility] ESR (SEDIMENTATION RATE) 42(H) <=30 mm/Hr 06/27/2024 2:52 PM CDT [facility] Blood Venipuncture / Unknown 06/27/2024 2:31 PM CDT 06/27/2024 2:40 PM CDT Daljit Bravo MD HEMATOLOGY O RDERABLES [facility] CLIA# [id number] [address] [place] [address] * PHOSPHORUS (06/27/2024 2:31 PM CDT) Pathologist [facility] PHOSPHORUS 3.5 2.5 - 4.5 mg/dL 06/27/2024 3:15 PM CDT [facility] Blood Venipuncture / Unknown 06/27/2024 2:31 PM CDT 06/27/2024 2:40 PM CDT Daljit Bravo MD CHEMISTRY OR DERABLES [facility]# [id number] [address] [place] [address] * MAGNESIUM LEVEL (06/27/2024 2:31 PM CDT) [facility] MAGNESIUM 2.2 1.6 - 2.4 mg/dL 06/27/2024 3:15 PM CDT [facility] Blood Venipuncture / Unknown 06/27/2024 2:31 PM CDT 06/27/2024 2:40 PM CDT Daljit Bravo MD CHEMISTRY OR DERABLES [facility]# [id number] [address] [place] [address] * POC GLUCOSE (06/27/2024 12:50 PM CDT) GLUCOSE POC 90 74 - 99 mg/dL 06/27/2024 12:50 PM CDT [facility] SPECIMEN SOURCE, GLUCOSE POC Whole Blood 06/27/2024 12:50 PM CDT [facility] COMMENT, GLU POC Notified RN/MD 06/27/2024 12:50 PM CDT [facility] Blood, whole 06/27/2024 12:5 0 PM CDT 06/27/2024 12:58 PM CDT Kt Bruner MD POINT OF CARE TESTIN G Performing Organization Address [facility] Co de Phone Number [facility]# [id number] [address] [place] [address] * POC GLUCOSE (06/27/2024 8:18 AM CDT) [facility] GLUCOSE POC 95 74 - 99 mg/dL 06/27/2024 8:18 AM CDT [facility]ORY [facility] SPECIMEN SOURCE, GLUCOSE POC Whole Blood 06/27/2024 8:18 AM CDT [facility] COMMENT, GLU POC Notified RN/MD 06/27/2024 8:18 AM CDT [facility] Blood, whole 06/27/2024 8:18 AM CDT 06/27/2024 8:27 AM CDT Kt Bruner MD POINT OF CARE FRANCHESKA Saravia Performing Organization Address City/[facility] Co de Phone Number [facility]# [id number] [address] [place] [address] * EKG 12-LEAD (06/27/2024 7:04 AM CDT) 06/27/2024 7:04 AM CDT Narrative INTERFACE SYSTEM - 06/27/2024 8:12 AM CDT ? [facility] ? [address] [place] [address] ? Test Date: ?2024-06-27 Pat Name: ? GLENDERLY WEST ? Department: ?? 100 ?Room: ? 2372 1 Gender: ? Female ? 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 Requested By: AISSATOU BERHANE L Order Number: [id number] ? Reading MD: ?? Deryk Arango ? Measurements Intervals ?[place] ? Rate: ? 77 ? P: ?55 NV: ? 171 ?QRS: ?-11 QRSD: ? 92 ? T: ?33 QT: ? 380 ? QTc: ?430 ? 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 ?? DICTATION LOCATION: Location [address] [place] [address] Narrative 06/27/2024 8:19 AM CDT EXAM: MRI LUMBAR [...] narrowing noted as described. DICTATION LOCATION: Location [address] [place] [address] Daljit Bravo MD MR ORDERABLE S * (ABNORMAL) POC GLUCOSE (06/27/2024 1:09 AM CDT) GLUCOSE POC 112(H) 74 - 99 mg/dL 06/27/2024 1:09 AM CDT [facility] SPECIMEN SOURCE, GLUCOSE POC Whole Blood 06/27/2024 1:09 AM CDT [facility] COMMENT, GLU POC Notified RN/MD 06/27/2024 1:09 AM CDT [facility] Blood, whole 06/27/2024 1:09 AM CDT 06/27/2024 1:20 AM CDT Daljit Bravo MD POINT OF CAR E TESTING [facility]ATORY [facility] SPIKE# [id number] [address] [place] [address] documented in this encounter Visit Diagnoses Diagnosis Discitis of lumbar region- Primary Other and unspecified disc disorder of lumbar region 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 Osteomyelitis of lumbar spine Discitis of lumbar region Other and unspecified disc disorder of lumbar region HLD (hyperlipidemia) Other and unspecified hyperlipidemia Asthma Unspecified asthma GERD (gastroesophageal reflux disease) Esophageal reflux Peripheral neuropathy Unspecified hereditary and idiopathic peripheral neuropathy Osteomyelitis of lumbar spine Benign hypertension Essential hypertension, benign 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 FAISAL (obstructive sleep apnea) Obstructive sleep apnea (adult) (pediatric) documented in this encounter Administered Medications Inactive Administered Medications - up to 3 most recent administrations Medication Order MAR Action Action Date Dose Rate Site albuterol (PROVENTIL,VENTOLIN) 2.5 mg /3 mL (0.083 %) inhalation solution 2.5 mg 2.5 mg, Inhalation, EVERY 6 HOURS PRN RESPIRATORY, Starting on Tue06/27/24 at 0247, Until Tue07/10/24 at 1456, Shortness of Breath, Routine aspirin (ECOTRIN EC) tablet 81 mg 81 mg, Oral, DAILY, First dose on Tue06/27/24 at 0600, Until Discontinued, Routine, Previous Med: aspirin (ECOTRIN EC) 81 mg Tablet, Delayed Release (E.C.) - Orig Sig - Take 81 mg by mouth daily. Given 07/10/2024 5:22 AM CDT 81 mg Given 07/09/2024 5:16 AM CDT 81 mg Given 07/08/2024 6:00 AM CDT 81 mg atorvastatin (LIPITOR) tablet 20 mg 20 mg, Oral, DAILY, First dose on Tue06/27/24 at 2100, Until Discontinued, Routine, Previous Med: atorvastatin (LIPITOR) 20 mg tablet - Orig Sig - Take 20 mg by mouth daily. Given 07/09/2024 9:09 PM CDT 20 mg Given 07/08/2024 8:22 PM CDT 20 mg Given 07/07/2024 9:12 PM CDT 20 mg bisacodyL (DULCOLAX) rectal suppository 10 mg 10 mg, Rectal, DAILY PRN, Starting on Tue06/27/24 at 0109, Until Tue07/10/24 at 1456, Constipation, Routine bisacodyL (DULCOLAX) rectal suppository 10 mg 10 mg, Rectal, DAILY PRN, Starting on Tue06/27/24 at 0243, Until Tue07/10/24 at 1456, Constipation, Routine calcium as carbonate (TUMS) 500 mg (200 mg elemental) chewable tablet 400 mg 400 mg, Oral, EVERY 6 HOURS PRN, Starting on Tue06/27/24 at 1553, Until Tue07/10/24 at 1456, Other (See Comment), heartburn, Routine Given 07/07/2024 12:37 PM CDT 400 mg Given 06/30/2024 6:02 AM CDT 400 mg Given 06/29/2024 9:12 PM CDT 400 mg cefePIME (MAXIPIME) 2,000 mg in sodium chloride 0.9% 50 mL IVPB (MBP) 2,000 mg, IV, EVERY 8 HOURS, First dose on Tue06/27/24 at 0715, Until Discontinued, Routine, Antibiotic Indication: Osteomyelitis / Septic Arthritis New Bag 07/10/2024 5:33 AM CDT 2,000 mg 118 mL/hr New Bag 07/09/2024 9:14 PM CDT 2,000 mg 118 mL/hr New Bag 07/09/2024 3:51 PM CDT 2,000 mg 118 mL/hr cefePIME (MAXIPIME) 2,000 mg in sodium chloride 0.9% 50 mL IVPB (MBP) 2,000 mg, IV, EVERY 12 HOURS (BlD), First dose (after last modification) on Tue07/10/24 at 1800, Until Discontinued, Routine, Antibiotic Indication: Osteomyelitis / Septic Arthritis cetirizine (ZyrTEC) tablet 5 mg 5 mg, Oral, DAILY, First dose on Tue06/29/24 at 0800, Until Discontinued, Routine Given 07/10/2024 5:22 AM CDT 5 mg Given 07/09/2024 5:14 AM CDT 5 mg Given 07/08/2024 6:13 AM CDT 5 mg cyclobenzaprine (FLEXERIL) tablet 10 mg 10 mg, Oral, THREE TIMES DAILY PRN, Starting on Tue07/07/24 at 1003, Until Tue07/10/24 at 1456, Spasm, Routine Given 07/08/2024 9:18 AM CDT 10 mg Given 07/08/2024 2:00 AM CDT 10 mg Given 07/07/2024 12:37 PM CDT 10 mg dextrose 5 % in water 250 mL flush bag 25 mL 25 mL, IV, SEE ADMIN INSTRUCTIONS, Starting on Tue07/02/24 at 0823, Until Tue07/10/24 at 1456, Routine enoxaparin (LOVENOX) injection 40 mg 40 mg, subCUT, EVERY 24 HOURS, First dose on Tue06/29/24 at 0700, Until Discontinued, Routine, Indication: Prophylaxis of VTE Given 07/10/2024 6:34 AM CDT 40 mg Abdomen, Left Lower Quadrant Given 07/09/2024 6:27 AM CDT 40 mg Ab domen, Left Lower Quadrant Given 07/08/2024 6:15 AM CDT 40 mg Ab domen, Left Lower Quadrant [id number] (TRELEGY ELLIPTA) 100-62.5-25 mcg inhaler 1 Puff 1 Puff, Inhalation, DAILY RESPIRATORY, First dose on Tue06/27/24 at 0900, Until Discontinued, Routine Given 07/10/2024 9:55 AM CDT 1 Puff Given 07/09/2024 8:45 AM CDT 1 Puff Given 07/08/2024 8:44 AM CDT 1 Puff gabapentin (NEURONTIN) capsule 300 mg 300 mg, Oral, TWO TIMES DAILY, First dose on Tue06/27/24 at 0600, Until Discontinued, Routine, Previous Med: gabapentin (NEURONTIN) 300 mg capsule - Orig Sig - Take 300 mg by mouth 2 times daily. Given 07/10/2024 5:22 AM CDT 300 mg Feeding Started 07/09/2024 6:33 PM CDT 300 mg Given 07/09/2024 5:14 AM CDT 300 mg gadoteridoL (PROHANCE) 279.3 mg/mL injection 20 mL 20 mL, IV, INTRA-PROCEDURE ONCE, 1 dose, Starting on Tue06/27/24 at 0310, Until Tue06/27/24 at 0325, Routine Contrast Given 06/27/2024 3:25 AM CDT 20 mL heparin, porcine (pf) 10 unit/mL IV syringe 50-150 Units 50-150 Units, IV, EVERY 12 HOURS, First dose on Tue07/02/24 at 0830, Until Discontinued, Routine Given 07/10/2024 9:19 AM CDT 50 Units Given 07/09/2024 9:15 PM CDT 50 Units Feeding Started 07/09/2024 12:03 PM CDT 50 Units heparin, porcine (pf) 10 unit/mL IV syringe 50-150 Units 50-150 Units, IV, SEE ADMIN INSTRUCTIONS, Starting on Tue07/02/24 at 0823, Until Tue07/10/24 at 1456, Routine Given 07/08/2024 2:01 AM CDT 50 Units Given 07/07/2024 6:50 AM CDT 50 Units Given 07/02/2024 9:44 AM CDT 50 Units HYDROcodone-acetaminophen (NORCO) 5-325 mg per tablet 1 Tablet 1 Tablet, Oral, EVERY 4 HOURS PRN, Starting on Tue06/27/24 at 0122, Until Tue07/10/24 at 1456, Pain (See admin instructions), Routine Given 07/10/2024 11:50 AM CDT 1 Tablet Given 07/10/2024 7:22 AM CDT 1 Tablet Given 07/09/2024 10:21 PM CDT 1 Tablet Lidocaine 4 % topical patch 1 Patch 1 Patch, Topical, DAILY, First dose on Tue07/08/24 at 0900, Until Discontinued, Routine Applied 07/10/2024 5:21 AM CDT 1 Patch Kenzie sutton, Left Applied 07/09/2024 5:13 AM CDT 1 Patch S rhea, Left Applied 07/08/2024 9:18 AM CDT 1 Patch ansoner, Left magnesium hydroxide (MILK OF MAGNESIA) oral suspension 30 mL 30 mL, Oral, DAILY PRN, Starting on Tue06/27/24 at 0109, Until Tue07/10/24 at 1456, Constipation, Routine Given 06/28/2024 4:39 PM CDT 30 mL magnesium hydroxide (MILK OF MAGNESIA) oral suspension 30 mL 30 mL, Oral, DAILY PRN, Starting on Tue06/27/24 at 0243, Until Tue07/10/24 at 1456, Constipation, Routine Given 06/30/2024 6:02 AM CDT 30 mL melatonin tablet 3 mg 3 mg, Oral, NIGHTLY PRN, Starting on Tue06/27/24 at 0109, Until Tue07/10/24 at 1456, Insomnia, Routine Given 06/30/2024 11:22 PM CDT 3 mg Given 06/28/2024 10:24 PM CDT 3 mg Given 06/28/2024 12:33 AM CDT 3 mg menthol (HALLS COUGH DROP) lozenge 5.8 mg 5.8 mg (1 Lozenge), Mouth/Throat, EVERY 2 HOURS PRN, Starting on Tue06/28/24 at 1357, Until Tue07/10/24 at 1456, Sore Throat, Routine ondansetron (ZOFRAN) 4 mg/2 mL injection 4 mg 4 mg, IV, EVERY 6 HOURS PRN, Starting on Tue06/27/24 at 0243, Until Tue07/10/24 at 1456, Nausea/Emesis, Routine New Bag 06/28/2024 11:10 AM CDT 4 mg Given 06/27/2024 4:20 AM CDT 4 mg pantoprazole (PROTONIX) tablet 40 mg 40 mg, Oral, DAILY, First dose on Tue06/27/24 at 0600, Until Discontinued, Routine, Previous Med: pantoprazole (PROTONIX) 40 mg Tablet, Delayed Release (E.C.) - Orig Sig - Take 40 mg by mouth daily. , Indication: Gastroesophageal reflux disease (GERD) Given 07/10/2024 5:23 AM CDT 40 mg Given 07/09/2024 5:16 AM CDT 40 mg Given 07/08/2024 6:13 AM CDT 40 mg polyethylene glycol (MIRALAX) packet 17 Gram 17 Gram, Oral, DAILY, First dose on Tue07/01/24 at 1300, Until Discontinued, Routine Given 07/06/2024 5:16 AM CDT 17 Grams Given 07/03/2024 5:05 AM CDT 17 Grams Given 07/02/2024 5:08 AM CDT 17 Grams sennosides-docusate sodium (SENNA-S) 8.6-50 mg per tablet 1 Tablet 1 Tablet, Oral, TWO TIMES DAILY, First dose on Tue06/27/24 at 0600, Until Discontinued, Routine Given 07/10/2024 5:22 AM CDT 1 Tablet Feeding Started 07/09/2024 6:33 PM CDT 1 Tablet Given 07/09/2024 5:15 AM CDT 1 Tablet sennosides-docusate sodium (SENNA-S) 8.6-50 mg per tablet 1 Tablet 1 Tablet, Oral, TWO TIMES DAILY, First dose on Tue06/27/24 at 0600, Until Discontinued, Routine Given 07/03/2024 5:05 AM CDT 1 Tablet Feeding Started 07/02/2024 5:55 PM CDT 1 Tablet Given 07/02/2024 6:00 AM CDT 1 Tablet simethicone chewable tablet 160 mg 160 mg, Oral, FOUR TIMES DAILY PRN, Starting on 07/07/24 at 0017, Until Tu07/10/24 at 1456, Gas, Routine Given 07/09/2024 9:08 PM CDT 160 mg Given 07/08/2024 8:22 PM CDT 160 mg Given 07/07/2024 9:12 PM CDT 160 mg sodium chloride 0.9% infusion IV, at 75 mL/hr, CONTINUOUS, Starting on Tue06/27/24 at 0300, Until Tue06/28/24 at 0259, Routine New Bag 06/27/2024 9:17 PM CDT 75 mL/hr New Bag 06/27/2024 4:31 AM CDT 75 mL/hr sodium chloride flush injection 10 mL 10 mL, IV, ONE TIME ONLY, 1 dose, On Tue06/27/24 at 0315, Routine Given 06/27/2024 3:15 AM CDT 10 mL sodium chloride flush injection 10-30 mL 10-30 mL, IV, EVERY 12 HOURS, First dose on Tue07/02/24 at 0830, Until Discontinued, Routine Given 07/10/2024 9:20 AM CDT 10 mL Given 07/09/2024 9:09 PM CDT 10 mL Feeding Started 07/09/2024 12:03 PM CDT 10 mL sodium chloride flush injection 5 mL 5 mL, IV, EVERY 12 HOURS (BlD), First dose on Tue06/27/24 at 0600, Until Discontinued, Routine Given 07/06/2024 5:16 AM CDT 5 mL Given 07/05/2024 5:40 PM CDT 5 mL Given 07/05/2024 6:28 AM CDT 5 mL sodium chloride flush injection 5 mL 5 mL, IV, SEE ADMIN INSTRUCTIONS, Starting on Tue06/27/24 at 0242, Until Tue07/10/24 at 1456, Routine Given 07/08/2024 2:01 AM CDT 5 mL Given 07/07/2024 6:50 AM CDT 5 mL Given 07/06/2024 9:34 PM CDT 5 mL vancomycin (VANCOCIN) 1,250 mg in dextrose 5% 250 mL IVPB (PREMIX) 1,250 mg, IV, EVERY 12 HOURS (BlD), First dose (after last modification) on 06/30/24 at 2100, Until Discontinued, Routine, Antibiotic Indication: Osteomyelitis / Septic Arthritis New Bag 07/03/2024 8:45 AM CDT 1,250 mg 166.67 mL/hr New Bag 07/02/2024 10:12 PM CDT 1,250 mg 166.67 mL/hr New Bag 07/02/2024 11:22 AM CDT 1,250 mg 166.67 mL/hr vancomycin (VANCOCIN) 1,500 mg in dextrose 5% 300 mL IVPB (PREMIX) 1,500 mg, IV, ONE TIME ONLY, 1 dose, On Tue06/27/24 at 0730, Routine, Antibiotic Indication: Osteomyelitis / Septic Arthritis New 06/27/2024 8:51 AM CDT 1,500 mg 200 mL/hr vancomycin (VANCOCIN) 1,500 mg in dextrose 5% 300 mL IVPB (PREMIX) 1,500 mg, IV, EVERY 12 HOURS (BlD), First dose on Tue06/28/24 at 1330, Until Discontinued, Routine, Antibiotic Indication: Osteomyelitis / Septic Arthritis New Bag 06/30/2024 1:24 AM CDT 1,500 mg 200 mL/hr New Bag 06/29/2024 1:28 PM CDT 1,500 mg 200 mL/hr New Bag 06/29/2024 3:17 AM CDT 1,500 mg 150 mL/hr documented in this encounter Active and Recently Administered Medications Times are shown in CDT. Scheduled Medication Order 07/08/2024 07/09/2024 07/10/2024 alteplase (CATHFLO ACTIVASE) 2 mg in sterile water 2 mL injection 2 mg, Dwell, ONE TIME ONLY, 1 dose, On Tue07/09/24 at 1630, Routine 1630 (Not Given - Provider: Amy Bedoya RN - Reason: Patient condition - Comment: no longer indicated, doctor noified) aspirin (ECOTRIN EC) tablet 81 mg 81 mg, Oral, DAILY, First dose on Tue06/27/24 at 0600, Until Discontinued, Routine, Previous Med: aspirin (ECOTRIN EC) 81 mg Tablet, Delayed Release (E.C.) - Orig Sig - Take 81 mg by mouth daily. 0600 (Given - Provider: Danielle Hernandez RN) 0516 (Given - Provider: Selam Saeed RN) 0522 (Given - Provider: Selam Saeed RN) atorvastatin (LIPITOR) tablet 20 mg 20 mg, Oral, DAILY, First dose on Tue06/27/24 at 2100, Until Discontinued, Routine, Previous Med: atorvastatin (LIPITOR) 20 mg tablet - Orig Sig - Take 20 mg by mouth daily. 2021 (Given - Provider: Selam Saeed RN) 2108 (Given - Provider: Selam Saeed RN) cefePIME (MAXIPIME) 2,000 mg in sodium chloride 0.9% 50 mL IVPB (MBP) (CANCELED) 2,000 mg, IV, EVERY 8 HOURS, First dose on Tue06/27/24 at 0715, Until Discontinued, Routine, Antibiotic Indication: Osteomyelitis / Septic Arthritis 0618 (New Bag - Provider: Danielle Hernandez RN)0648 (Stopped - Provider: Maddy Renner RN)1223 (New Bag - Provider: Maddy Renner RN)1253 (Stopped - Provider: Maddy Renner RN)2036 (New Bag - Provider: Selam Saeed RN)2106 (Stopped - Provider: Selam Saeed RN) 0512 (New Bag - Provider: Selam Saeed RN)0542 (Stopped - Provider: Selam Saeed RN)1551 (New Bag - Provider: Amy Bedoya RN)1621 (Stopped - Provider: Amy Bedoya, ARACELIS)2114 (New Bag - Provider: Selam Saeed RN)2144 (Stopped - Provider: Selam Saeed RN) 0533 (New Bag - Provider: Selam Saeed RN)0603 (Stopped - Provider: Selam Saeed RN) cefePIME (MAXIPIME) 2,000 mg in sodium chloride 0.9% 50 mL IVPB (MBP) 2,000 mg, IV, EVERY 12 HOURS (BlD), First dose (after last modification) on Tue07/10/24 at 1800, Until Discontinued, Routine, Antibiotic Indication: Osteomyelitis / Septic Arthritis cetirizine (ZyrTEC) tablet 5 mg 5 mg, Oral, DAILY, First dose on Tue06/29/24 at 0800, Until Discontinued, Routine 0613 (Given - Provider: Danielle Hernandez RN) 0514 (Given - Provider: Selam Saeed RN) 0522 (Given - Provider: Selam Saeed RN) dextromethorphan-guaiFENe sin (ROBITUSSIN DM) 10-100 mg/5 mL oral solution 10 mL 10 mL, Oral, ONE TIME ONLY, 1 dose, On Tue07/02/24 at 0230, Routine dextrose 5 % in water 250 mL flush bag 25 mL 25 mL, IV, SEE ADMIN INSTRUCTIONS, Starting on Tue06/27/24 at 0242, Until Tue07/10/24 at 1456, Routine dextrose 5 % in water 250 mL flush bag 25 mL 25 mL, IV, SEE ADMIN INSTRUCTIONS, Starting on Tue07/02/24 at 0823, Until Tue07/10/24 at 1456, Routine dextrose 50% (D50) syringe 12.5 Gram 12.5 Gram, IV, SEE ADMIN INSTRUCTIONS, Starting on Tue06/27/24 at 0242, Until Tue07/10/24 at 1456, Routine dextrose 50% (D50) syringe 25 Gram 25 Gram, IV, SEE ADMIN INSTRUCTIONS, Starting on Tue06/27/24 at 0242, Until Tue07/10/24 at 1456, Routine enoxaparin (LOVENOX) injection 40 mg 40 mg, subCUT, EVERY 24 HOURS, First dose on Tue06/29/24 at 0700, Until Discontinued, Routine, Indication: Prophylaxis of VTE 0615 (Given - Provider: Danielle Hernandez RN) 0627 (Given - Provider: Selam Saeed RN) 0634 (Given - Provider: Jessica Flores RN) fluticasone-umeclidinium- vilanterol (TRELEGY ELLIPTA) 100-62.5-25 mcg inhaler 1 Puff 1 Puff, Inhalation, DAILY RESPIRATORY, First dose on Tue06/27/24 at 0900, Until Discontinued, Routine 0844 (Given - Provider: Christopher Salamanca RCP) 0845 (Given - Provider: Sadi Parish RCP) 0955 (Given - Provider: Lori Cool RCP) gabapentin (NEURONTIN) capsule 300 mg 300 mg, Oral, TWO TIMES DAILY, First dose on Tue06/27/24 at 0600, Until Discontinued, Routine, Previous Med: gabapentin (NEURONTIN) 300 mg capsule - Orig Sig - Take 300 mg by mouth 2 times daily. 0612 (Given - Provider: Danielle Hernandez RN)1756 (Given - Provider: Maddy Renner RN) 0514 (Given - Provider: Selam Saeed RN)1833 (Feeding Started - Provider: Amy Bedoya RN) 0522 (Given - Provider: Selam Saeed RN) glucagon HCL 1 mg/mL injection 1 mg 1 mg, IM, SEE ADMIN INSTRUCTIONS, Starting on Tue06/27/24 at 0242, Until Tue07/10/24 at 1456, Routine heparin, porcine (pf) 10 unit/mL IV syringe 50-150 Units 50-150 Units, IV, EVERY 12 HOURS, First dose on Tue07/02/24 at 0830, Until Discontinued, Routine 0854 (Given - Provider: Maddy Renner RN)2027 (Given - Provider: Selam Saeed RN) 1203 (Feeding Started - Provider: Amy Bedoya RN)2114 (Given - Provider: Selam Saeed RN) 09 (Given - Provider: Audrey Ro RN) heparin, porcine (pf) 10 unit/mL IV syringe 50-150 Units 50-150 Units, IV, SEE ADMIN INSTRUCTIONS, Starting on Tue07/02/24 at 0823, Until Tue07/10/24 at 1456, Routine 0201 (Given - Provider: Danielle Hernandez RN) Lidocaine 4 % topical patch 1 Patch 1 Patch, Topical, DAILY, First dose on 07/08/24 at 0900, Until Discontinued, Routine 0918 (Applied - Provider: Maddy Renner RN)2117 (Removed - Provider: Selam Saeed RN) 05 (Applied - Provider: Selam Saeed RN)1713 (Removed - Provider: Amy Bedoya RN) 0521 (Applied - Provider: Selam Saeed RN)1243 (Due: Removed - Provider: PROVIDER, DISCHARGE PATIENT - Comment: Time automatically adjusted from order being discontinued) naloxone (NARCAN) 0.4 mg/mL injection 0.1-0.4 mg 0.1-0.4 mg, IV, SEE ADMIN INSTRUCTIONS, Starting on Tue06/27/24 at 0108, Until Tue07/10/24 at 1456, Routine pantoprazole (PROTONIX) tablet 40 mg 40 mg, Oral, DAILY, First dose on Tue06/27/24 at 0600, Until Discontinued, Routine, Previous Med: pantoprazole (PROTONIX) 40 mg Tablet, Delayed Release (E.C.) - Orig Sig - Take 40 mg by mouth daily. , Indication: Gastroesophageal reflux disease (GERD) 0613 (Given - Provider: Danielle Hernandez RN) 0516 (Given - Provider: Selam Saeed RN) 0523 (Given - Provider: Selam Saeed RN) polyethylene glycol (MIRALAX) packet 17 Gram 17 Gram, Oral, DAILY, First dose on Tue07/01/24 at 1300, Until Discontinued, Routine 0600 (Refused - Provider: Danielle Hernandez RN) 0600 (Refused - Provider: Selam Saeed RN) 0600 (Refused - Provider: Selam Saeed RN) sennosides-docusate sodium (SENNA-S) 8.6-50 mg per tablet 1 Tablet 1 Tablet, Oral, TWO TIMES DAILY, First dose on Tue06/27/24 at 0600, Until Discontinued, Routine 0613 (Given - Provider: Danielle Hernandez RN)1756 (Given - Provider: Maddy Renner RN) 0515 (Given - Provider: Selam Saeed RN)1833 (Feeding Started - Provider: Amy Bedoya RN) 0522 (Given - Provider: Selam Saeed RN) sodium chloride 0.9 % flush bag 25 mL 25 mL, IV, SEE ADMIN INSTRUCTIONS, Starting on Tue06/27/24 at 0242, Until Tue07/10/24 at 1456, Routine sodium chloride flush injection 10-30 mL 10-30 mL, IV, EVERY 12 HOURS, First dose on Tue07/02/24 at 0830, Until Discontinued, Routine 0854 (Given - Provider: Maddy Renner RN)2025 (Given - Provider: Selam Saeed RN) 1203 (Feeding Started - Provider: Amy Bedoya, ARACELIS)2109 (Given - Provider: Selam Saeed RN) 0920 (Given - Provider: Audrey Ro RN) sodium chloride flush injection 5 mL 5 mL, IV, SEE ADMIN INSTRUCTIONS, Starting on Tue06/27/24 at 0242, Until Tue07/10/24 at 1456, Routine 0201 (Given - Provider: Danielle Hernandez RN) PRN Medication Order 07/08/2024 07/09/2024 07/10/2024 acetaminophen (TYLENOL) tablet 650 mg 650 mg, Oral, EVERY 6 HOURS PRN, Starting on Tue06/27/24 at 0108, Until Tue07/10/24 at 1456, Other (See Comment), See admin instructions, Routine albuterol (PROVENTIL,VENTOLIN) 2.5 mg /3 mL (0.083 %) inhalation solution 2.5 mg 2.5 mg, Inhalation, EVERY 6 HOURS PRN RESPIRATORY, Starting on Tue06/27/24 at 0247, Until Tue07/10/24 at 1456, Shortness of Breath, Routine bisacodyL (DULCOLAX) rectal suppository 10 mg(Linked Group 1) 10 mg, Rectal, DAILY PRN, Starting on Tue06/27/24 at 0109, Until Tue07/10/24 at 1456, Constipation, Routine bisacodyL (DULCOLAX) rectal suppository 10 mg(Linked Group 2) 10 mg, Rectal, DAILY PRN, Starting on Tue06/27/24 at 0243, Until Tue07/10/24 at 1456, Constipation, Routine calcium as carbonate (TUMS) 500 mg (200 mg elemental) chewable tablet 400 mg 400 mg, Oral, EVERY 6 HOURS PRN, Starting on Tue06/27/24 at 1553, Until Tue07/10/24 at 1456, Other (See Comment), heartburn, Routine cyclobenzaprine (FLEXERIL) tablet 10 mg 10 mg, Oral, THREE TIMES DAILY PRN, Starting on Tue07/07/24 at 1003, Until Tue07/10/24 at 1456, Spasm, Routine 0200 (Given - Provider: Danielle Hernandez RN)0918 (Given - Provider: Maddy Renner RN) HYDROcodone-acetaminop hen (NORCO) 5-325 mg per tablet 1 Tablet 1 Tablet, Oral, EVERY 4 HOURS PRN, Starting on Tue06/27/24 at 0122, Until Tue07/10/24 at 1456, Pain (See admin instructions), Routine 1220 (Given - Provider: Maddy Renner RN)2022 (Given - Provider: Selam Saeed RN) 0126 (Given - Provider: Jessica Flores RN)1705 (Feeding Started - Provider: Amy Bedoya RN)2221 (Given - Provider: Selam Saeed RN) 0722 (Given - Provider: Audrey Ro RN)1150 (Given - Provider: Audrey Ro RN) magnesium hydroxide (MILK OF MAGNESIA) oral suspension 30 mL(Linked Group 1) 30 mL, Oral, DAILY PRN, Starting on Tue06/27/24 at 0109, Until Tue07/10/24 at 1456, Constipation, Routine magnesium hydroxide (MILK OF MAGNESIA) oral suspension 30 mL(Linked Group 2) 30 mL, Oral, DAILY PRN, Starting on Tue06/27/24 at 0243, Until Tue07/10/24 at 1456, Constipation, Routine melatonin tablet 3 mg 3 mg, Oral, NIGHTLY PRN, Starting on Tue06/27/24 at 0109, Until Tue07/10/24 at 1456, Insomnia, Routine menthol (HALLS COUGH DROP) lozenge 5.8 mg 5.8 mg (1 Lozenge), Mouth/Throat, EVERY 2 HOURS PRN, Starting on Shira 06/28/24 at 1357, Until Tue07/10/24 at 1456, Sore Throat, Routine ondansetron (ZOFRAN) 4 mg/2 mL injection 4 mg 4 mg, IV, EVERY 6 HOURS PRN, Starting on Tue06/27/24 at 0243, Until Tue07/10/24 at 1456, Nausea/Emesis, Routine simethicone chewable tablet 160 mg 160 mg, Oral, FOUR TIMES DAILY PRN, Starting on 07/07/24 at 0017, Until Tue07/10/24 at 1456, Gas, Routine 2021 (Given - Provider: Selam Saeed RN) 2107 (Given - Provider: Selam Saeed RN) Linked Groups Order Group 1: magnesium hydroxide (MILK OF MAGNESIA) oral suspension 30 mLJump to med 30 mL, Oral, DAILY PRN, Starting on Tue06/27/24 at 0109, Until Tue07/10/24 at 1456, Constipation, Routine Or bisacodyL (DULCOLAX) rectal suppository 10 mgJump to med 10 mg, Rectal, DAILY PRN, Starting on Tue06/27/24 at 0109, Until Tue07/10/24 at 1456, Constipation, Routine Group 2: magnesium hydroxide (MILK OF MAGNESIA) oral suspension 30 mLJump to med 30 mL, Oral, DAILY PRN, Starting on Tue06/27/24 at 0243, Until Tue07/10/24 at 1456, Constipation, Routine Or bisacodyL (DULCOLAX) rectal suppository 10 mgJump to med 10 mg, Rectal, DAILY PRN, Starting on Tue06/27/24 at 0243, Until Tue07/10/24 at 1456, Constipation, Routine documented in this encounter Care Teams C.O.D. Biller Relationship Specialty Start Date End Date Tracy Olivares MD [address] [place] [address] PCP - General Internal Medicine 07/02/24 documented as of this encounter
--- OUTSIDE RECORDS SUMMARY | 2024-09-07 05:36 | XMS_ITS | Encounter Summary ---
Author Organization [facility] Address [address] [place] [address] Care Team Providers Care Screen Cutter And Trimmer Name Role Phone Tracy Olivares MD Primary Care Provider [phone] Reason for Visit * Reason Onset Date Comments IV abx stop date 08/27/2024 Encounter Details Date Type Department Care Team (Late st Contact Info) Description 08/27/2024 Telephone [facility] INFECTIOUS DISEASE [place] [address] [place] [address] Indio Oliver MD [address] [facility] [place] [address] IV abx stop date Social History Tobacco Use Types [...] Telephone Encounter - Stacy Abarca LPN - 08/27/2024 10:23 AM CST Images from the original note were not included. Confirmed stop date with Brayan at [facility] as indicated below by Dr. Oliver. Orders read back correctly with out concern. Indio Oliver MD Gowen, Amanda L, LPN Caller: Unspecified (Today, 10:15 AM) We can stop on 08/27. Thanks ET RIPPER * Telephone Encounter - Stacy Abarca LPN - 08/27/2024 10:15 AM CST Current IVAB stop date is for today 08-27-24. Please advise if we are to continue or stop and remove PICC. Most recent labs were drawn on 08-20-24. Please advise ET RIPPER documented in this encounter Plan of Treatment Upcoming Encounters Date Type Department Care Team (Late st Contact Info) Description 10/04/2024 10:00 AM GUSSET RIPPER Office Visit [facility] Neurosurgery - [facility] [address] [facility] [address] [place] [address] Harris Fischer MD [address] [facility] [address] [place] [address] documented as of this encounter Visit Diagnoses Not on filedocumented in this encounter Care Teams Screen Cutter And Trimmer Relationship Specialty Start Date End Date Tracy Olivares MD [address] [place] [address] PCP - General Internal Medicine 07/02/24 documented as of this encounter
--- OUTSIDE RECORDS SUMMARY | 2024-09-07 05:36 | XMS_ITS | Encounter Summary ---
Author Organization [facility] Address [address] [place] [address] Care Team Providers Care Call Center Recruiter Name Role Phone Tracy Olivares MD Primary Care Provider [phone] Encounter Details Date Type Department Care Team (Late st Contact Info) Description 08/29/2024 Abstract [facility] INFECTIOUS DISEASE [place] [address] [place] [address] Indio Oliver MD [address] [facility] [address] [place] [address] Social History Tobacco Use Types [...] st Contact Info) Description 10/04/2024 10:00 AM BRAZER PRODUCTION LINE Office Visit [facility] Neurosurgery - Medical [place] [address] [facility] [address] [place] [address] Harris Fischer MD [address] [facility] [address] [place] [address] documented as of this encounter Visit Diagnoses Not on filedocumented in this encounter Care Teams Call Center Recruiter Relationship Specialty Start Date End Date Tracy Olivares MD [address] [place] [address] PCP - General Internal Medicine 07/02/24 documented as of this encounter
--- OUTSIDE RECORDS SUMMARY | 2024-09-07 05:36 | XMS_ITS | Encounter Summary ---
Author Organization [facility] Address [address] [place] [address] Care Team Providers Care Cardiac Cath Tech Name Role Phone Tracy Olivares MD Primary Care Provider [phone] Encounter Details Date Type Department Care Team (Late st Contact Info) Description 08/13/2024 Abstract [facility] INFECTIOUS DISEASE [place] [address] [place] [address] Indio Oliver MD [address] [facility] [address] [place] [address] Social History Tobacco Use Types [...] st Contact Info) Description 10/04/2024 10:00 AM LIFE ENRICHMENT DIRECTOR Office Visit [facility] Neurosurgery - Medical [place] [address] [place] [address] Harris Fischer MD [address] [facility] [address] [place] [address] documented as of this encounter Visit Diagnoses Not on filedocumented in this encounter Care Teams Cardiac Cath Tech Relationship Specialty Start Date End Date Tracy Olivares MD [address] [place] [address] PCP - General Internal Medicine 07/02/24 documented as of this encounter
--- OUTSIDE RECORDS SUMMARY | 2024-09-07 05:36 | XMS_ITS | Encounter Summary ---
Author Organization [facility] Address [address] [place] [address] Care Team Providers Care Harp Repairer Name Role Phone Tracy Olivares MD Primary Care Provider [phone] Reason for Visit * Reason Onset Date Comments TLSO Brace 07/11/2024 Encounter Details Date Type Department Care Team (Late st Contact Info) Description 07/11/2024 Telephone [facility] Neurosurgery - Medical [place] [address] [facility] [facility] [address] Harris Fischer MD [address] [facility] [address] [place] [address] TLSO Brace Social History Tobacco Use Types Packs/Day Years [...] encounter Miscellaneous Notes * Telephone Encounter - Ayaka Rollins PA-C - 07/11/2024 4:16 PM CDT Spoke with Suzy. Confirmed brace recommendations with custom TLSO brace. * Telephone Encounter - Latoya Ortega - 07/11/2024 3:59 PM CDT Suzy returned your call. * Telephone Encounter - Latoya Ortega - 07/11/2024 3:58 PM CDT Suzy * Telephone Encounter - Ayaka Rollins PA-C - 07/11/2024 3:35 PM CDT Called, left voice mail to return call. I believe patient actually has a custom brace as it was determined by [facility] to be best option for her * Telephone Encounter - Izabella Robbins - 07/11/2024 1:57 PM CDT Suzy PT aviation manager called and is asking if patient can wear another brace.She doesn't like the OTS TSLO brace. She would like a call back at [phone] documented in this encounter Plan of Treatment Upcoming Encounters Date Type Department Care Team (Late st Contact Info) Description 10/04/2024 10:00 AM PREPARATION ROOM WORKER Office Visit [facility] Neurosurgery - [facility] [address] [place] [address] Harris Fischer MD [address] [facility] [address] [place] [address] documented as of this encounter Visit Diagnoses Not on filedocumented in this encounter Care Teams Harp Repairer Relationship Specialty Start Date End Date Tracy Olivares MD [address] [facility] [address] [place] [address] PCP - General Internal Medicine 07/02/24 documented as of this encounter
--- OUTSIDE RECORDS SUMMARY | 2024-09-07 05:36 | XMS_ITS | Encounter Summary ---
Author Organization [facility] Address [address] [place] [address] Care Team Providers Care Lead Nurse Name Role Phone Tracy Olivares MD Primary Care Provider [phone] Reason for Visit * Reason Onset Date Comments Labs Only 08/21/2024 Encounter Details Date Type Department Care Team (Late st Contact Info) Description 08/21/[address] [facility] INFECTIOUS DISEASE [place] [facility] [address] [place] [address] [place] [address] Indio Oliver MD [address] [place] [address] Labs Only Social History Tobacco Use Types Packs/Day Years [...] Telephone Encounter - Stacy Abarca LPN - 08/21/2024 1:04 PM CST Images from the original note were not included. Spoke to Abigail at [facility], repeat potassium level orders given to be redrawn tomorrow. BenitoIndio jaimes MD Gowen, Amanda L, LPN Can you ask [facility] to redraw a potassium level? Thanks ECT ADMIN documented in this encounter Plan of Treatment Upcoming Encounters Date Type Department Care Team (Late st Contact Info) Description 10/04/2024 10:00 AM PROJECT ADMIN Office Visit [facility] - [facility] [address] [facility] [address] [place] [address] Harris Fischer MD [address] [facility] [address] [place] [address] documented as of this encounter Visit Diagnoses Not on filedocumented in this encounter Care Teams Lead Nurse Relationship Specialty Start Date End Date Tracy Olivares MD [address] [place] [address] PCP - General Internal Medicine 07/02/24 documented as of this encounter
--- OUTSIDE RECORDS SUMMARY | 2024-09-07 05:37 | XMS_ITS | Encounter Summary ---
Author Organization [facility] Address [address] [place] [address] Care Team Providers Care Lmsw Name Role Phone Unavailable Primary Care Provider Unavailabl e Reason for Visit * Auth/Cert (Routine) Specialty Diagnoses / Procedures Referred By Contoziel iverson Referred To Contact Orthopedic Surgery Diagnoses lumbar discitis Geovanny Lanza, [address] [place] [address] [facility] [address] [place] [address] Referral ID Status Reason Start Date Expiration Date Visits Re quested Visits Authorized [id number] 1 1 Encounter Details Date Type Department Care Team (Late st Contact Info) Description 06/28/2024 10:17 AM CDT Anesthesia Event [facility] Interventional Radiology [facility] [address] [place] [address] Gopal Cedeno MD [address] [place] [address] Anesthesia Record Procedure Summary Procedure Name Responsible Anesthesiologist Anesthesia Start Time Anesthesia Stop Time IR BIOPSY Gopal Cedeno MD 06/28/24 1017 1142 Events Date Time Event Comment 06/28/2024 0952 AN Equip Check Anesthesia eq uipment and materials checked in accordance with local policy. 1002 1017 An Start 1019 An Start Data 1026 Pre-Induction Immediate pre- induction anesthetic assessment performed. Vital signs as noted on graphic. 1027 An Induction 1035 An Intubation 1052 Anesthesia Ready 1125 An Extubation Emergence unev entful Awake, spontaneous respirations. Adequate muscle strength demonstrated Adequate tidal volume. Orapharynx suctioned. Extubated with positive pressure ventilation. 1132 an stop data 1140 Hand-off to Receiving Clinic mireya Post-Anesthetic transfer of care report elements to appropriate post-anesthesia recovery environment completed in accordance with procedure. 1142 An Stop 1142 Hand-off to Receiving Clinic mireya 1204 Out of Room This event disp lays the Out of Room time documented in the Surgical Log. Deleting this event will not remove it from the log but will remove it from the Grid and Graph timeline. Meds Name Total lidocaine PF (XYLOCAINE MPF) 2% injectio n 5 mL rocuronium (ZEMURON) 10 mg/mL 5 mL injec tion 30 mg propofol (DIPRIVAN) 10??mg/mL injection 200 mg phenylephrine 1 mg/10 mL (100 mcg/mL) in jection 400 mcg dexAMETHasone (DECADRON) 4 mg/mL injecti on 4 mg ondansetron (ZOFRAN) 4 mg/2 mL injection 4 mg 4 mg famotidine (pf) (PEPCID) 20 mg/2 mL inje ction 20 mg sugammadex (BRIDION) 100 mg/mL injection 400 mg sodium chloride 0.9% infusion 0 mL * Agents Name Sevoflurane % Sevoflurane O2 N2O Inspired N2O O2 * Blood No blood administrations on file. Lines, Drains, and Airways Type Details Placement Removal Wound 06/28/24; 1103; lumb ar spine; puncture 06/28/24 1103 by Halley Judd RN Peripheral IV Orientation: Anterio r, Left, Lower; Location: Arm; Gauge: 22 gauge; Insertion Attempts: 4; Patient Tolerance: tolerated well 06/27/24 2236 by Jo-Ann Green GN 06/29/24 0603 by Elena Barker, ARACELIS Endotracheal Airway Type: ETT; Size: 8; Attempts: 1; Verification: Auscultated bilateral breath sounds, Equal chest movement, Continuous waveform capnography 06/28/24 1035 by Gopal Cedeno MD 06/28/24 1125 by Gopal Cedeno MD documented in this encounter Social History Tobacco Use Types Packs/Day Years [...] on file documented as of this encounter OR Notes * Anesthesia Postprocedure Evaluation - Gopal Cedeno MD - 06/28/2024 11:41 AM CDT Post Anesthesia Evaluation Vitals: Vitals Value Taken Time BP 132/74 06/28/24 1135 Temp 36.7 ??C 06/28/24 1135 Resp 20 06/28/24 1135 SpO2 100 % 06/28/24 1135 Pulse Heart Rate 93 bpm 06/28/24 1135 Pain Rating: Pain Rating: Rest: 8 (06/28/24 0033) Presence of Pain: (just arousing from anesthesia) (06/28/24 1135) Anesthesia Post Evaluation Patient location during evaluation: PACU Patient participation: patient was able to participate in the post op evaluation Level of consciousness: 0 = alert, responsive, answers simple questions appropriately, able to perform simple tasks Pain management: adequate Multimodal analgesia pain management approach Airway patency: patent Two or more strategies used to mitigate risk of obstructive sleep apnea Nausea or Vomiting: none Cardiovascular status: regular rate and rhythm Respiratory status: no respiratory symptoms Hydration status: well hydrated No notable events documented. Gopal Cedeno MD * Anesthesia Handoff - Gopal Cedeno MD - 06/28/2024 11:41 AM CDT Post-Anesthetic transfer of care report elements to appropriate post-anesthesia recovery environment completed in accordance with procedure. I completed my handoff to the receiving nurse during which we: 1. Identified the patient 2. Identified the responsible provider 3. Reviewed the pertinent medical history 4. Discussed the surgical course 5. Reviewed intra-op anesthesia management and issues during anesthesia 6. Set expectations for post-procedure period 7. Orders as necessary and appropriate for continuation of care are present in Epic. 8. Allowed opportunity for questions and acknowledgement of understanding. Vital Signs: Vitals Value Taken Time BP 132/74 06/28/24 1135 Temp 36.7 ??C 06/28/24 1135 Resp 20 06/28/24 1135 SpO2 100 % 06/28/24 1135 Pulse Heart Rate 93 bpm 06/28/24 1135 11:41 AM Gopal Cedeno MD * Anesthesia Procedure Notes - Gopal Cedeno MD - 06/28/2024 11:04 AM CDT Associated Order(s): Airway Airway Date/Time: 06/28/2024 10:35 AM Location: Other [facility] Non OR Location: Plan: routine intubation Patient Identity Confirmed by: Verbally with patient and armband Airway: not difficult Staffing Performed: Anesthesiologist (/) Authorized by: Gopal Cedeno MD Performed by: Gopal Cedeno MD Indications and Patient Condition: Indications for Airway Management: Anesthesia Sedation Level: general anesthesia Preoxygenated: yes Patient Position: Sniffing Mask Difficulty Assessment: 2 - vent by mask + OA or adjuvant +/- NMBA Oral Airway: 100mm Plan to extubate at end of case: Yes Final Airway Details: Final Airway Type: Endotracheal airway ETT Cuffed: Yes Technique Used for Successful ETT Placement: Video laryngoscopy Devices/Methods Used in Placement: Intubating stylet Blade Size: 4 Insertion Site: Oral ETT Size (mm): 8.0 Video Laryngoscopy Devices: GlideScope Measured from: Teeth Tube secured with: Tape Placement Verified by: auscultation, end tidal CO2 and chest rise Cormack-Lehane Classification: Grade IIa - partial view of glottis Number of Attempts at Approach: 1 Additional Procedure Information: atraumatic * Anesthesia Preprocedure Evaluation - Gopal Cedeno MD - 06/28/2024 8:56 AM CDT Images from the original note were not included. Relevant Problems CARDIOVASCULAR (+) Benign hypertension GI (+) GERD (gastroesophageal reflux disease) PULMONARY (+) Asthma Other (+) Discitis of lumbar region (+) Osteomyelitis of lumbar spine Anesthesia Evaluation Patient summary reviewed and Nursing notes reviewed Airway Mallampati: III TM distance: >3 FB Neck ROM: full Dental - normal exam (+) upper dentures and Partial lower Pulmonary (+) COPD mild, asthma, sleep apnea on CPAP (-) pneumonia, shortness of breath, recent URI, rhonchi, decreased breath sounds ROS comment: Social History Tobacco Use Smoking status: Former Types: Cigarettes Smokeless tobacco: Not on file Chest X-ray result (most recent): No results found for this or any previous visit. PE comment: Body mass index is 43.48 kg/m??. Cardiovascular Exercise tolerance: good (Able to climb 2 Flight of Stairs without difficulty (No CP, SOB. FUNEZ) ) (+) hypertension well controlled (-) pacemaker, valvular problems/murmurs, past NM, CAD, CABG/stent, dysrhythmias, angina, CHF, orthopnea, PND, FUNEZ, murmur, friction rub Rhythm: regular Rate: normal ROS comment: Cardiac Echo result (most recent): No results found for this or any previous visit. Neuro/Psych (-) seizures, neuromuscular disease, TIA, CVA, headaches, psychiatric history Comments: Carotid Doppler result (most recent): No results found for this or any previous visit. GI/Hepatic/Renal (+) GERD well controlled (-) hiatal hernia, PUD, hepatitis, liver disease, renal disease, bowel prep Endo/Other (+) arthritis (-) diabetes mellitus, hypothyroidism, hyperthyroidism, blood dyscrasia Comments: Lumbar discitis Lumbar osteomyelitis Abdominal (+) obese Abdomen: soft. Anesthesia History No history of anesthetic complications, no history of difficult intubation, no history of malignanthyperthermia, no history of PONV and no pseudocholinesterase deficiency. Anesthesia Plan ASA Final: 3 General Intravenous induction Oral ETT airway maintenance NPO status > 8 hours Anesthetic plan and risks discussed with Patient. Plan discussed with Anesthesiologist and Surgeon/Proceduralists. Post-op Pain Control Plan to use IV or IM medication for post-op pain control. Smoking Compliance patient did not smoke on day of surgery documented in this encounter Plan of Treatment Upcoming Encounters Date Type Department Care Team (Late st Contact Info) Description 10/04/2024 10:00 AM HIGH SCHOOL MUSIC DIRECTOR Office Visit [facility] Neurosurgery - [facility] [address] [place] [address] Harris Fischer MD [address] [facility] [address] [place] [address] documented as of this encounter Procedures Procedure Name Priority Date/Time Associated Diagnosis Comments DE ANES INSERT ENDOTRACHEAL AIRWAY Routine 06/28/2024 10:35 AM CDT documented in this encounter Results * DE ANES INSERT ENDOTRACHEAL AIRWAY (06/28/2024 10:35 AM CDT) Narrative Gopal Cedeno MD - 06/28/2024 10:35 AM CDT Gopal Cedeno MD ? 06/28/2024 11:05 AM Airway Date/Time: 06/28/2024 10:35 AM Location: Other [facility] Non OR Location: IR Plan: routine intubation Patient Identity Confirmed by: ??Verbally with patient and armband Airway: not difficult Staffing Performed: Anesthesiologist (/DO) Authorized by: Gopal Cedeno MD ?? Performed [...] Gopal Cedeno MD PROCEDURE/MINOR SURG ICAL ORDERABLES documented in this encounter Visit Diagnoses Not on filedocumented in this encounter Administered Medications Inactive Administered Medications - up to 3 most recent administrations Medication Order MAR Action Action Date Dose Rate Site dexAMETHasone (DECADRON) 4 mg/mL injection IV, INTRA-PROCEDURE PRN, Starting on Shira 06/28/24 at 1110, Until Shira 06/28/24 at 1142, Routine, Anesthesia Intra-op Given 06/28/2024 11:10 AM CDT 4 mg famotidine PF (PEPCID) 20 mg/2 mL injection IV, INTRA-PROCEDURE PRN, Starting on Shira 06/28/24 at 1111, Until Shira 06/28/24 at 1142, Routine, Anesthesia Intra-op Given 06/28/2024 11:11 AM CDT 20 mg lidocaine PF 2% (XYLOCAINE MPF) injection Infiltration, INTRA-PROCEDURE PRN, Starting on Shira 06/28/24 at 1027, Until Shira 06/28/24 at 1142, Routine, Anesthesia Intra-op Given 06/28/2024 10:27 AM CDT 5 mL ondansetron (ZOFRAN) 4 mg/2 mL injection 4 mg 4 mg, IV, EVERY 6 HOURS PRN, Starting on Tue06/27/24 at 0243, Until Tue07/10/24 at 1456, Nausea/Emesis, Routine New Bag 06/28/2024 11:10 AM CDT 4 mg Given 06/27/2024 4:20 AM CDT 4 mg phenylephrine syringe IV, INTRA-PROCEDURE PRN, Starting on Shira 06/28/24 at 1059, Until Shira 06/28/24 at 1142, Routine, Anesthesia Intra-op Given 06/28/2024 10:59 AM CDT 200 mcg Given 06/28/2024 10:55 AM CDT 200 mcg propofoL (DIPRIVAN) injection IV, INTRA-PROCEDURE PRN, Starting on Shira 06/28/24 at 1027, Until Shira 06/28/24 at 1142, Anesthesia Intra-op Given 06/28/2024 10:33 AM CDT 50 mg Given 06/28/2024 10:27 AM CDT 150 mg rocuronium syringe IV, INTRA-PROCEDURE PRN, Starting on Shira 06/28/24 at 1029, Until Shira 06/28/24 at 1142, Routine, Anesthesia Intra-op Given 06/28/2024 10:29 AM CDT 30 mg sodium chloride 0.9% infusion IV, INTRA-PROCEDURE CONTINUOUS PRN, Starting on Shira 06/28/24 at 1017, Until Shira 06/28/24 at 1142, Routine, Anesthesia Intra-op New Bag 06/28/2024 10:17 AM CDT sugammadex (BRIDION) 100 mg/mL injection IV, INTRA-PROCEDURE PRN, Starting on Shira 06/28/24 at 1123, Until Shira 06/28/24 at 1142, Routine, Anesthesia Intra-op Given 06/28/2024 11:23 AM CDT 400 mg documented in this encounter
--- OUTSIDE RECORDS SUMMARY | 2024-09-07 05:37 | XMS_ITS | Encounter Summary ---
Author Organization [facility] Address [address] Attn: Epic Prelude ADT SCARLET RODRIGUEZ [address] Care Team Providers Care Career Guidance Counselor Name Role Phone Unavailable Primary Care Provider Unavailabl e Encounter Details Date Type Department Care Team (Latest Contact Info) Description 06/27/2024 Travel Social History Tobacco Use Types Packs/Day [...] st Contact Info) Description 10/04/2024 10:00 AM REGIONAL PLANNER Office Visit [facility] Neurosurgery - Medical [place] [address] [facility] [address] [place] [address] Harris Fischer MD [address] [facility] [address] [place] [address] documented as of this encounter Visit Diagnoses Not on filedocumented in this encounter
--- OUTSIDE RECORDS SUMMARY | 2024-09-07 05:37 | XMS_ITS | Encounter Summary ---
Author Organization [facility] Address [address] [place] [address] Care Team Providers Care [employer] Team Member Name Role Phone Tracy Olivares MD Primary Care Provider [phone] Encounter Details Date Type Department Care Team (Late st Contact Info) Description 07/03/2024 External Device Data STL ABSTRACTION Provider, [...] st Contact Info) Description 10/04/2024 10:00 AM ORDNANCE OFFICER Office Visit [facility] Neurosurgery - Medical [place] [address] [facility] [address] [place] [address] Harris Fischer MD [address] [facility] [address] [place] [address] documented as of this encounter Visit Diagnoses Not on filedocumented in this encounter Care Teams [employer] Team Member Relationship Specialty Start Date End Date Tracy Olivares MD [address] [place] [address] PCP - General Internal Medicine 07/02/24 documented as of this encounter
--- OUTSIDE RECORDS SUMMARY | 2024-09-07 15:16 | XMS_ITS | Encounter Summary ---
Author Organization [facility] - [facility] Address [address] [place] [address]. [place], [place] [address] [place] [address] Care Team Providers Care Flap Lining Binder Name Role Phone Tracy Olivares MD Primary Care Provider [phone] Nathan Baig MD Unavailable [phone] Marisel Mancini RN Unavailable [phone] Reason for Visit * Reason Onset Date Comments Hospital Follow Up 06/28/2024 [facility] Admit 06/27/24- lumbar discitis Encounter Details Date Type Department Care Team (Latest Contact Info) Description 06/28/2024 Patient Outreach [facility] Medical Group Multispecialty Care - [address] [place] [address] Marisel Mancini, RN [address] [place] [address] Hospital Follow Up ( [facility] Admit 06/27/24- lumbar discitis) Social History Tobacco [...] 1:37 PM CDT Patient was admitted to [facility] on 06/27/24 with lumbar discitis. The CC team will follow this patient and will complete the TCM CB upon hospital discharge. documented in this encounter Plan of Treatment Upcoming Encounters Date Type Department Care Team (Late st Contact Info) Description 10/03/2024 11:00 AM BRICK GRADER Office Visit [facility] - [address] [address] Nathan Baig MD [address] [address] 11/14/2024 10:20 AM BRICK GRADER Office Visit [facility] Multispecialty Care - [place] [address] [address] [place] [address] Tracy Olivares MD [address] [place] [address] documented as of this encounter Visit Diagnoses Not on filedocumented in this encounter Additional Health Concerns Assessment Noted Time PHQ-9 Depression Total Score: 2 09/14/19 24 11:30 AM BRICK GRADER documented as of this encounter Care Teams Flap Lining Binder Relationship Specialty Start Date End Date Tracy Olivares MD [address] [place] [address] PCP - General INTERNAL MEDICINE 01/02/21 Nathan Baig MD [address] [address] Consulting Physician Internal Medicine Pulmonary Disease 09/16/21 Marisel Mancini RN [address] [place] [address] Telephone Lineworker (Ambulatory) REGISTERED NURSE 06/28/24 08/07/24 documented as of this encounter
--- OUTSIDE RECORDS SUMMARY | 2024-09-07 15:16 | XMS_ITS | Encounter Summary ---
Author Organization [facility] - [facility] Address [address] [place] [address]. [place], [place] [address] [place] [address] Care Team Providers Care Motor Runner Name Role Phone Tracy Olivares MD Primary Care Provider [phone] Nathan Baig MD Unavailable [phone] Reason for Visit * Reason Onset Date Comments Hospital Follow Up 08/08/2024 TCM week #3 Encounter Details Date Type Department Care Team (Latest Contact Info) Description 08/08/2024 Patient Outreach [facility] Medical Group Multispecialty [facility] - [address] [place] [address] Marisel Mancini, RN [address] [place] [address] Hospital Follow Up (TCM week #3) Social [...] she declines CCM services at this time. ACIC MEDICINE SPECIALIST documented in this encounter Plan of Treatment Upcoming Encounters Date Type Department Care Team (Late st Contact Info) Description 10/03/2024 11:00 AM THORACIC MEDICINE SPECIALIST Office Visit [facility] Medical [facility] Pul[facility]ology Specialty [facility] - [place] [address] [place] [address] Nathan Baig MD [address] [place] [address] [place] [address] 11/14/2024 10:20 AM THORACIC MEDICINE SPECIALIST Office Visit [facility] Medical Group Multispecialty Care - [place] [address] [address] [place] [address] Tracy Olivares MD [address] [place] [address] documented as of this encounter Visit Diagnoses Not on filedocumented in this encounter Additional Health Concerns Assessment Noted Time PHQ-9 Depression Total Score: 2 09/14/19 24 11:30 AM THORACIC MEDICINE SPECIALIST documented as of this encounter Care Teams Motor Runner Relationship Specialty Start Date End Date Tracy Olivares MD [address] [place] [address] PCP - General INTERNAL MEDICINE 01/02/21 Nathan Baig MD [address] [address] Consulting Physician Internal Medicine Pulmonary Disease 09/16/21 documented as of this encounter
--- OUTSIDE RECORDS SUMMARY | 2024-09-07 15:16 | XMS_ITS | Encounter Summary ---
Author Organization [facility] Address [address] [place] [address]. [place], [place] [address] [place] [address] Care Team Providers Care Terrazzo Mechanic Helper Name Role Phone Tracy Olivares MD Primary Care Provider [phone] Nathan Baig MD Unavailable [phone] Marisel Mancini RN Unavailable [phone] Reason for Visit * Reason Comments [...] Upcoming Encounters Date Type Department Care Team ([facility] Contact Info) Description 10/03/2024 11:00 AM PICKLE WATER PUMP OPERATOR Office Visit [facility] - [address] [place], [place] [address] Nathan Baig MD [address] [place] [address] 11/14/2024 10:20 AM PICKLE WATER PUMP OPERATOR Office Visit [facility] Multispecialty Care - [place] [address] [facility] 157 [address] [place] [address] Tracy Olivares MD 1188 [facility] 157 [place] [address] documented as of this encounter Procedures Procedure Name Priority Date/Time Associated Diagnosis Comments OUTSIDE LAB (SCAN ORDER) 06/26/2024 OUTSIDE LAB (SCAN ORDER) 06/26/2024 OUTSIDE LAB (SCAN ORDER) 06/26/2024 OUTSIDE LAB (SCAN ORDER) 06/26/2024 OUTSIDE LAB (SCAN ORDER) 06/26/2024 IMAGE GENERIC 06/26/2024 IMAGE GENERIC 06/26/2024 documented in this encounter Results * OUTSIDE LAB (SCAN ORDER) (06/26/2024) 06/26/2024 [facility] Scanned SCANNING Final Resu lt * OUTSIDE LAB (SCAN ORDER) (06/26/2024) 06/26/2024 [facility] Scanned SCANNING Final Resu lt * OUTSIDE LAB (SCAN ORDER) (06/26/2024) 06/26/2024 [facility] Scanned SCANNING Final Resu lt * OUTSIDE LAB (SCAN ORDER) (06/26/2024) 06/26/2024 [facility] Scanned SCANNING Final Resu lt [...] Total Score: 2 09/14/19 24 11:30 AM PICKLE WATER PUMP OPERATOR documented as of this encounter Care Teams Terrazzo Mechanic Helper Relationship Specialty Start Date End Date Tracy Olivares MD 1188 [facility] 157 [place] [address] PCP - General INTERNAL MEDICINE 01/02/21 Nathan Baig MD [address] [address] Consulting Physician Internal Medicine Pulmonary Disease 09/16/21 Marisel Mancini RN 3051 [place] [address] Protection Analyst (Ambulatory) REGISTERED NURSE 06/28/24 08/07/24 documented as of this encounter
--- OUTSIDE RECORDS SUMMARY | 2024-09-07 15:16 | XMS_ITS | Encounter Summary ---
Author Organization [facility] Address [address] [place] [address]. [place] [address] [place] [address] Care Team Providers Care Pug Mill Operator Name Role Phone Tracy Olivares MD Primary Care Provider [phone] Nathan Baig MD Unavailable [phone] Marisel Mancini RN Unavailable [phone] Reason for Visit * Reason Onset Date Comments Hospital Follow Up 06/28/2024 Call to [facility]. Encounter Details Date Type Department Care Team (Latest Contact Info) Description 06/28/2024 Patient Outreach [facility] Multispecialty Care - [address] [place] [address] Marisel Mancini, RN [address] [place] [address] Hospital Follow Up (Call to [facility]. ) Social History Tobacco Use Types [...] 06/28/2024 11:31 AM CDT 06/28/24: CC called [facility] and spoke with nurse, Amara. Patient is [...] st Contact Info) Description 10/03/2024 11:00 AM BASKETBALL SCOUT Office Visit [facility] Pulmonology [facility]ty Clinic - [address] [address] Nathan Baig MD [address] [address] 11/14/2024 10:20 AM BASKETBALL SCOUT Office Visit [facility] Multispecialty Care - [place] [address] [address] [place] [address] Tracy Olivares MD [address] [place] [address] documented as of this encounter Visit Diagnoses Not on filedocumented in this encounter Additional Health Concerns Assessment Noted Time PHQ-9 Depression Total Score: 2 09/14/19 24 11:30 AM BASKETBALL SCOUT documented as of this encounter Care Teams Pug Mill Operator Relationship Specialty Start Date End Date Tracy Olivares MD [address] [place] [address] PCP - General INTERNAL MEDICINE 01/02/21 Nathan Baig MD 3 [facility] [address] [place] [address] Consulting Physician Internal Medicine Pulmonary Disease 09/16/21 Marisel Mancini, RN [address] [place] [address] Farm Forestry And Garden Workers (Ambulatory) REGISTERED NURSE 06/28/24 08/07/24 documented as of this encounter
--- OUTSIDE RECORDS SUMMARY | 2024-09-07 15:16 | XMS_ITS | Encounter Summary ---
Author Organization [facility] Address [address] [place] [address]. [place], [place] [address] [place] [address] Care Team Providers Care Compounding And Finishing Supervisor Name Role Phone Tracy Olivares MD Primary Care Provider [phone] Nathan Baig MD Unavailable [phone] Marisel Mancini RN Unavailable [phone] Reason for Visit * Reason Onset Date Comments Hospital Follow Up 2024 TCM Week #2 Encounter Details Date Type Department Care Team (Latest Contact Info) Description 2024 Patient Outreach [facility] Multispecialty Care - [address] [place] [address] Marisel Mancini, RN [address] [place] [address] Hospital Follow Up (TCM Week [...] follows up with PCP and sheis agreeable. AID AID * Kelsey Peterson MA - 2024 10:18 AM CST She had one sent into her pharmacy at the end of May she will need to call her pharmacy for her refills. AID * Kelsey Peterson MA - 2024 10:18 AM CST Strips and lancets sent to pharmacy AID * Kelsey Peterson MA - 2024 10:18 AM CSTAddended by: KELSEY PETERSON on: 2024 03:36 PM Modules accepted: Orders AID documented in this encounter Plan of Treatment Upcoming Encounters Date Type Department Care Team (Late st Contact Info) Description 10/03/2024 11:00 AM HOME AID Office Visit [facility] Pulmon[facility]ty Clinic - [address] [address] Nathan Baig MD [address] [address] 11/14/2024 10:20 AM HOME AID Office Visit [facility] Multispecialty Care - [place] [address] [address] [place] [address] Tracy Olivares MD [address] [place] [address] documented as of this encounter Visit Diagnoses Diagnosis Type 2 diabetes mellitus with hyperglycemia, without long-term current use of insulin ([facility]) documented in this encounter Additional Health Concerns Assessment Noted Time PHQ-9 Depression Total Score: 2 09/14/19 24 11:30 AM HOME AID documented as of this encounter Care Teams Compounding And Finishing Supervisor Relationship Specialty Start Date End Date Tracy Olivares MD [address] [place] [address] PCP - General INTERNAL MEDICINE 01/02/21 Nathan Baig MD [address] [address] Consulting Physician Internal Medicine Pulmonary Disease 09/16/21 Marisel Mancini RN 3051 [place] [address] Senior Investment Analyst (Ambulatory) REGISTERED NURSE 06/28/24 08/07/24 documented as of this encounter
--- OUTSIDE RECORDS SUMMARY | 2024-09-07 15:16 | XMS_ITS | Encounter Summary ---
Author Organization [facility] Address [address] [place] [address]. [place], [place] [address] [place] [address] Care Team Providers Care Central Supply Nurse Name Role Phone Tracy Olivares MD Primary Care Provider [phone] Nathan Baig MD Unavailable [phone] Reason for Referral * Consultation (Urgent) - New Request Specialty Diagnoses / Procedures Referred By Heidi iverson Referred To Contact ORTHOPAEDICS Diagnoses Bilateral hip pain Procedures OFFICE/OUTPATIENT NEW LOW MDM 30-44 MINUTES OFFICE/OUTPT VISIT,NEW,LEVL IV OFFICE/OUTPT VISIT,NEW,LEVL V OFFICE/OUTPT VISIT,EST,LEVL III OFFICE/OUTPT VISIT,EST,LEVL IV OFFICE/OUTPT VISIT,EST,LEVL V Tracy Olivares MD [facility] [address] [address] Phone: tel: fax: Referral ID Status Reason Start Date Expiration Date Visits Requested Visits Authorized [id number] New Request Specialty Services 09/27/2025 1 1 ARDI DEVELOPER Reason for Visit * Reason Onset Date Comments Results 08/27/2024 Encounter Details Date Type Department Care Team (Late st Contact Info) Description 08/27/2024 Telephone [facility] Medical [facility] Multispecialty Care - [place] [address] [address] [place] [address] Tracy Olivares MD [facility] [address] [address] Results Social History Tobacco Use Types Packs/Day [...] patient. Given referral center follow-up. All questions. ARDI DEVELOPER * Jessica Lockhart - 08/27/2024 8:30 AM CST This patient is calling about her hip pain and the results from her recent imaging. She also would like to discuss seeing a specialist about the hip pain. ARDI DEVELOPER documented in this encounter Plan of Treatment Upcoming Encounters Date Type Department Care Team (Late st Contact Info) Description 10/03/2024 11:00 AM LOMBARDI DEVELOPER Office Visit [facility] Pulmonology Specialty Clinic - [place] [address] [place] [address] Nathan Baig MD [address] [place] [address] 11/14/2024 10:20 AM LOMBARDI DEVELOPER Office Visit [facility] Multispecialty Care - [place] [address] [address] [place] [address] Tracy Olivares MD [facility] [address] [address] Scheduled Referrals Name Type Priority Associated Diagnoses Orde r Schedule Ambulatory referral to Orthopedics (OTHER) Referral Routine Bilateral hip pain Ordered: 08/27/2024 documented as of this encounter Visit Diagnoses Diagnosis Bilateral hip pain- Primary Pain in joint, pelvic region and thigh documented in this encounter Additional Health Concerns Assessment Noted Time PHQ-9 Depression Total Score: 2 09/14/19 24 11:30 AM LOMBARDI DEVELOPER documented as of this encounter Care Teams Central Supply Nurse Relationship Specialty Start Date End Date Tracy Olivares MD [address] [place] [address] PCP - General INTERNAL MEDICINE 01/02/21 Nathan Baig MD [address] [address] Consulting Physician Internal Medicine Pulmonary Disease 09/16/21 documented as of this encounter
--- OUTSIDE RECORDS SUMMARY | 2024-09-07 15:16 | XMS_ITS | Encounter Summary ---
Author Organization [facility] Address [address] [place] [address]. [place], [place] [address] [place] [address] Care Team Providers Care Pipe Wrapping Machine Operator Name Role Phone Tracy Olivares MD Primary Care Provider [phone] Nathan Baig MD Unavailable [phone] Reason for Visit * Reason Comments [...] st Contact Info) Description 10/03/2024 11:00 AM RING PACKER Office Visit [facility] Pulmonology Specialty Clinic - [address] [place] [address] Nathan Baig MD [address] [place] [address] 11/14/2024 10:20 AM RING PACKER Office Visit [facility] Multispecialty Care - [place] [address] [address] [place] [address] Tracy Olivares MD [facility] [address] documented as of this encounter Procedures Procedure Name Priority Date/Time Associated Diagnosis Comments OUTSIDE LAB (SCAN ORDER) 08/14/2024 OUTSIDE LAB (SCAN ORDER) 08/14/2024 documented in this encounter Results * OUTSIDE LAB (SCAN ORDER) (08/14/2024) 08/14/2024 [facility] Scanned SCANNING Final Resu lt * OUTSIDE LAB (SCAN ORDER) (08/14/2024) 08/14/2024 [facility] Scanned SCANNING Final Resu lt documented in this encounter Visit Diagnoses Not on filedocumented in this encounter Additional Health Concerns Assessment Noted Time PHQ-9 Depression Total Score: 2 09/14/19 24 11:30 AM RING PACKER documented as of this encounter Care Teams Pipe Wrapping Machine Operator Relationship Specialty Start Date End Date Tracy Olivares MD [address] [place] [address] PCP - General INTERNAL MEDICINE 01/02/21 Nathan Baig MD [address] [address] Consulting Physician Internal Medicine Pulmonary Disease 09/16/21 documented as of this encounter
--- OUTSIDE RECORDS SUMMARY | 2024-09-07 15:16 | XMS_ITS | Encounter Summary ---
Author Organization [facility] Address [address] [place] [address]. [place], [place] [address] [place] [address] Care Team Providers Care Paring Machine Operator Name Role Phone Tracy Olivares MD Primary Care Provider [phone] Nathan Baig MD Unavailable [phone] Reason for Visit * Reason Onset Date Comments Information 08/08/2024 Encounter Details Date Type Department Care Team (Late st Contact Info) Description 08/08/2024 Telephone [facility] Multispecialty Care - [place] [address] [address] [place] [address] [place] [address] [place] [address] 157 [place] [address] Information Social History Tobacco Use [...] CST Lab orders have been faxed to [facility] home nurse ECONOMICS EXTENSION WORKER documented in this encounter Plan of Treatment Upcoming Encounters Date Type Department Care Team (Late st Contact Info) Description 10/03/2024 11:00 AM HOME ECONOMICS EXTENSION WORKER Office Visit [facility] Pulmonology Specialty Clinic - [address] [address] Nathan Baig MD 3 [facility] [address] [place] [address] 11/14/2024 10:20 AM HOME ECONOMICS EXTENSION WORKER Office Visit [facility] Multispecialty Care - [place] [address] [address] [place] [address] Tracy Olivares MD [address] [place] [address] documented as of this encounter Visit Diagnoses Not on filedocumented in this encounter Additional Health Concerns Assessment Noted Time PHQ-9 Depression Total Score: 2 09/14/19 24 11:30 AM HOME ECONOMICS EXTENSION WORKER documented as of this encounter Care Teams Paring Machine Operator Relationship Specialty Start Date End Date Tracy Olivares MD [address] [place] [address] PCP - General INTERNAL MEDICINE 01/02/21 Nathan Baig MD 3 [facility] [address] [place] [address] Consulting Physician Internal Medicine Pulmonary Disease 09/16/21 documented as of this encounter
--- OUTSIDE RECORDS SUMMARY | 2024-09-07 15:16 | XMS_ITS | Encounter Summary ---
Author Organization [facility] Address [address] [place] [address]. [place] [address] [place] [address] Care Team Providers Care Upper Shaper Name Role Phone Tracy Olivares MD Primary Care Provider [phone] Nathan Baig MD Unavailable [phone] Reason for Referral * Consultation (Urgent) [...] MD 1188 [facility] [address] [place] [address] Phone: tel: fax: [facility], [address] [address] Phone: tel: fax: Referral ID Status Reason Start Date Expiration Date V isits Requested Visits Authorized [id number] Authorized 08/14/2024 08/14/[address] Genaro Melara at [facility] in [place], [place]. F RADIOLOGY Reason for Visit * Reason Onset Date Comments Concerns 08/14/2024 Referral 08/14/2024 Encounter Details Date Type Department Care Team (Late Contact Info) Description 08/14/2024 [facility] [place] [address] [address] [place] [address] Tracy Olivares MD 1188 [facility] 157 [place] [address] Concerns; Referral Social History Tobacco Use Types [...] a referral to Dr. Genaro Melara at [facility] in [place], [place]. F RADIOLOGY documented in this encounter Plan of Treatment Upcoming Encounters Date Type Department Care Team (Late Contact Info) Description 10/03/2024 11:00 AM CHIEF RADIOLOGY Office Visit [facility] Pulmonology Specialty Clinic - [place] [address] [address] Nathan Baig MD [address] [place] [address] 11/14/2024 10:20 AM CHIEF RADIOLOGY Office Visit [facility] Multispecialty Care - [place] [address] [address] [place] [address] Tracy Olivares MD [address] [place] [address] Scheduled Referrals Name Type Priority Associated Diagnoses [...] Total Score: 2 09/14/19 24 11:30 AM CHIEF RADIOLOGY documented as of this encounter Care Teams Upper Shaper Relationship Specialty Start Date End Date Tracy Olivares MD [address] [place] [address] PCP - General INTERNAL MEDICINE 01/02/21 Nathan Baig MD [address] [address] Consulting Physician Internal Medicine Pulmonary Disease 09/16/21 documented as of this encounter
--- OUTSIDE RECORDS SUMMARY | 2024-09-07 15:16 | XMS_ITS | Encounter Summary ---
Author Organization [facility] Address [address] [place] [address]. [place] [address] [place] [address] Care Team Providers Care Chairman & Chief Executive Officer Name Role Phone Tracy Olivares MD Primary Care Provider [phone] Nathan Baig MD Unavailable [phone] Marisel Mancini RN Unavailable [phone] Reason for Visit * Reason Onset Date Comments TCM 07/10/2024 Encounter Details Date Type Department Care Team (Late st Contact Info) Description 07/10/2024 Telephone [facility] Group Multispecialty Care - [place] [address] [address] [place] [address] Tracy Olivares MD 1188 [facility] 157 [place] [address] TCM Social History Tobacco Use [...] st Contact Info) Description 10/03/2024 11:00 AM EQUIPMENT HIRE MANAGER Office Visit [facility] Pulmonology Specialty Clinic - [address] [address] Nathan Baig MD [address] [place] [address] 11/14/2024 10:20 AM EQUIPMENT HIRE MANAGER Office Visit [facility] Multispecialty Care - [place] [address] [address] [place] [address] Tracy Olivares MD [address] [place] [address] documented as of this encounter Visit Diagnoses Not on filedocumented in this encounter Additional Health Concerns Assessment Noted Time PHQ-9 Depression Total Score: 2 09/14/19 11:30 AM EQUIPMENT HIRE MANAGER documented as of this encounter Care Teams Chairman & Chief Executive Officer Relationship Specialty Start Date End Date Tracy Oilvares MD [address] [place] [address] PCP - General INTERNAL MEDICINE 01/02/21 Nathan Baig MD [address] [address] Consulting Physician Internal Medicine Pulmonary Disease 09/16/21 Marisel Mancini, RN [address] [place], [place] [address] Tip Tester (Ambulatory) REGISTERED NURSE 06/28/24 08/07/24 documented as of this encounter
--- OUTSIDE RECORDS SUMMARY | 2024-09-07 15:16 | XMS_ITS | Encounter Summary ---
Author Organization [facility] Address [address] [place] [address]. [place], [place] [address] [place] [address] Care Team Providers Care Deicer Inspector Pneumatic Name Role Phone Tracy Olivares MD Primary Care Provider [phone] Nathan Baig MD Unavailable [phone] Reason for Visit * Reason Comments [...] st Contact Info) Description 10/03/2024 11:00 AM TOPPIECE CUTTER Office Visit [facility] Pulmonology Specialty Clinic - [address] [place] [address] Nathan Baig MD [address] [place] [address] 11/14/2024 10:20 AM TOPPIECE CUTTER Office Visit [facility] Multispecialty Care - [place] [address] [address] [place] [address] Tracy Olivares MD [address] [address] documented as of this encounter Procedures Procedure [...] Total Score: 2 09/14/19 24 11:30 AM TOPPIECE CUTTER documented as of this encounter Care Teams Deicer Inspector Pneumatic Relationship Specialty Start Date End Date Tracy Olivares MD [facility]8 [address] [address] PCP - General INTERNAL MEDICINE 01/02/21 Nathan Baig MD [address] [address] Consulting Physician Internal Medicine Pulmonary Disease 09/16/21 documented as of this encounter
--- OUTSIDE RECORDS SUMMARY | 2024-09-07 15:16 | XMS_ITS | Encounter Summary ---
Author Organization [facility] Address [address] [place] [address]. [place], [place] [address] [place] [address] Care Team Providers Care Chief Cardiopulmonary Technologist Name Role Phone Tracy Olivares MD Primary Care Provider [phone] Nathan Baig MD Unavailable [phone] Marisel Mancini RN Unavailable [phone] Reason for Visit * Reason Onset Date Comments Appointment Request 07/27/2024 Medication 07/27/2024 Encounter Details Date Type Department Care Team (Late st Contact Info) Description 07/27/2024 Telephone [facility] Multispecialty Care - [place] [address] [address] [place] [address] [place] [address] [place] [address] 157 [place] [address] Appointment Request; Medication Social History [...] am trying to move from another date. OYMENT TECHNICIAN documented in this encounter Plan of Treatment Upcoming Encounters Date Type Department Care Team (Late st Contact Info) Description 10/03/2024 11:00 AM DEPLOYMENT TECHNICIAN Office Visit [facility] Medical [facility] Pulmonology Specialty Clinic - [address] [address] Nathan Baig MD [address] [address] 11/14/2024 10:20 AM DEPLOYMENT TECHNICIAN Office Visit [facility] Multispecialty Care - [place] [address] [address] [place] [address] Tracy Olivares MD [address] [place] [address] documented as of this encounter Visit Diagnoses Not on filedocumented in this encounter Additional Health Concerns Assessment Noted Time PHQ-9 Depression Total Score: 2 09/14/19 24 11:30 AM DEPLOYMENT TECHNICIAN documented as of this encounter Care Teams Chief Cardiopulmonary Technologist Relationship Specialty Start Date End Date Tracy Olivares MD [address] [place] [address] PCP - General INTERNAL MEDICINE 01/02/21 Nathan Baig MD [address] [address] Consulting Physician Internal Medicine Pulmonary Disease 09/16/21 Marisel Mancini, RN 3051 [place] [address] Purchasing Supervisor (Ambulatory) REGISTERED NURSE 06/28/24 08/07/24 documented as of this encounter
--- OUTSIDE RECORDS SUMMARY | 2024-09-07 15:16 | XMS_ITS | Encounter Summary ---
Author Organization [facility] Address [address] [place] [address]. [place], [place] [address] [place] [address] Care Team Providers Care Surgery Nurse Name Role Phone Tracy Olivares MD Primary Care Provider [phone] Nathan Baig MD Unavailable [phone] Reason for Visit * Reason Comments [...] (Late Contact Info) Description 10/03/2024 11:00 AM MATTRESS AND FOUNDATION SEWER Office Visit [facility] Pulmonology Specialty Clinic - [address] [place] [address] Nathan Baig MD [address] [place] [address] 11/14/2024 10:20 AM MATTRESS AND FOUNDATION SEWER Office Visit [facility] Group Multispecialty Care - [place] [address] [address] [place] [address] Tracy Olivares MD [facility] [address] [address] documented as of this encounter Procedures Procedure [...] Total Score: 2 09/14/19 24 11:30 AM MATTRESS AND FOUNDATION SEWER documented as of this encounter Care Teams Surgery Nurse Relationship Specialty Start Date End Date Tracy Olivares MD [address] [place] [address] PCP - General INTERNAL MEDICINE 01/02/21 Nathan Baig MD [address] [address] Consulting Physician Internal Medicine Pulmonary Disease 09/16/21 documented as of this encounter
--- OUTSIDE RECORDS SUMMARY | 2024-09-07 15:16 | XMS_ITS | Clinical Summary ---
Author Organization [facility] Address [address] [place] [address]. [place], [place] [address] [place] [address] Care Team Providers Care Young Adult Librarian Name Role Phone Tracy Olivares MD Primary Care Provider [phone] Nathan Baig MD Unavailable [phone] Allergies Active Allergy Reactions Criticality Noted [...] hyperglycemia, without long-term current use of insulin ([facility] HHS/HCC) Take 1 tablet (25 mg total) by mouth daily. 90 tablet 1 03/27/20 24 Active gabapentin (NEURONTIN) 300 MG capsuleIndication s:Idiopathic peripheral neuropathy Take 1 capsule (300 mg total) by mouth nightly at bedtime. 90 capsule 1 04/25/20 24 Active Blood Glucose Monitoring Suppl KitIndications:Ty pe 2 diabetes mellitus with hyperglycemia, without long-term current use of insulin (CMS/[facility] HHS/HCC) Use daily to check blood sugar. Okay to substitute with whichever one insurance will cover thank you. 1 kit 05/08/20 24 Active Blood Gluc Meter Disp-Strips (BLOOD GLUCOSE METER DISPOSABLE) DeviceIndications :Type 2 diabetes mellitus with hyperglycemia, without long-term current use of insulin ([facility] HHS/HCC) Use daily to check blood sugar. Okay to substitute with whichever brand insurance will cover. 100 each 05/08/20 Active Blood Glucose Monitoring Suppl (ONE TOUCH ULTRA 2) w/Device KitIndications:Ty pe 2 diabetes mellitus with hyperglycemia, without long-term current use of insulin (CMS/[facility] HHS/HCC) Check blood sugar twice a day before meals. 1 kit 06/06/20 24 Active Glucose Blood test stripIndications: Type 2 diabetes mellitus with hyperglycemia, without long-term current use of insulin (CMS/[facility] HHS/HCC) Check blood sugar twice a day before meals. 300 strip 1 06/06/20 24 Active Lancets (ONETOUCH ULTRASOFT) lancetsIndication s:Type 2 diabetes mellitus with hyperglycemia, without long-term current use of insulin (CMS/[facility] HHS/HCC) Check blood sugar twice a day [...] hyperglycemia, without long-term current use of insulin ([facility]) 1 strip by Other route as needed. Use as instructed 100 strip 3 08/01/20 24 Active Lancets MiscIndications:T ype 2 diabetes mellitus with hyperglycemia, without long-term current use of insulin ([facility]) Use daily to check blood sugar. Okay [...] Date Diagnosed Date Osteomyelitis of lumbar spine ([facility]) 08/21/2024 intermediate (current) use of insulin ([facility]/ [facility]) 03/20/2024 Type 2 diabetes mellitus wit h hyperglycemia, without long-term current use of insulin ([facility]) 03/20/2024 Moderate persistent asthma without complication ([facility]) 09/23/2023 Mixed hyperlipidemia 01/05/2022 RLS (restless legs syndrome) 09/10/2021 Mixed hyperglyceridemia 07/10/2021 Prediabetes 07/10/2021 Other specified anemias 07/10/2021 Knee pain 03/03/2021 Current moderate episode of major depressive disorder ([facility]) 01/05/2021 Overview (07/03/2021): On lexapro and stable. [...] hyperglycemia, without long-term current use of insulin ([facility]) 01/05/2022 04/02/2022 Pulmonary emphysema ([facility]) 04/17/2021 09/23/2023 Overview (04/27/2021): On Trelegy and [...] Encounters Date Type Department Care Team Description 09/07/2024 Telephone [place] [address] [facility] [address] [place] [address] Tracy Olivares MD Information 09/03/2024 1:30 PM SHUT OFF WORKER Allied Health/Nurse Visit [place] [address] [facility] [address] [place] [address] Tracy Olivares MD Allied Health Visit (Potassium ) 09/03/2024 Telephone [place] [address] [facility] [address] [place] [address] Tracy Olivares MD Lab Order 09/03/2024 Travel 08/31/2024 Patient Outreach [facility] [address] [facility] [address] [place] [address] Marisel Mancini, ARACELIS Hospital Follow Up (Call to [facility]) 08/29/2024 Scan [employer] SRVCS Scanned, Doc Med Group Lab (SCAN) 08/29/2024 Telephone [facility] [address] [facility] [address] [place] [address] Tracy Olivares MD Lab Results 08/28/2024 Scan Profitero INFO SRVCS Scanned, Doc [facility] Group Lab (SCAN) 08/27/2024 Telephone [facility] [address] [facility] [address] [place] [address] Tracy Olivares MD Results 08/24/2024 Scan [facility] INFO SRVCS Scanned, Doc [facility] Lab (SCAN) 08/23/2024 [facility]phone [facility] [place] [address] [place] [address] Tracy Olivares MD Results 08/22/2024 Travel 08/21/2024 12:20 PM SHUT OFF WORKER Telemedicine [facility] - [place] [address] [place] [address] Alesia Rosario, GLORIA Lower Extremity Pain 08/21/2024 Travel 08/20/2024 Scan [facility] INFO SRVCS Scanned, Doc [facility] Lab (SCAN) 08/20/2024 [facility] [place] [address] [place] [address] Tracy Olivares MD Concerns 08/17/2024 Scan [facility] INFO SRVCS Scanned, Doc Med Group 08/17/2024 [facility] [place] [address] [place] [address] Tracy Olivares MD Error 08/16/2024 [facility] [place] [address] [place] [address] Tracy Olivares MD Orders 08/15/2024 Scan [facility] INFO SRVCS Scanned, Doc Med Group 08/14/2024 Scan [facility] INFO SRVCS Scanned, [facility] Lab (SCAN) 08/14/2024 Telephone [facility] [place] [address] [place] [address] Tracy Olivares MD Concerns; Referral 08/13/2024 [facility]phone [facility] [place] [address] [place] [address] Tracy Olivares MD Referral 08/08/2024 Scan [facility] INFO SRVCS Scanned, Doc [facility] Group Lab (SCAN) 08/08/2024 [facility] [address] [facility] [address] [place] [address] Marisel Mancini RN Hospital Follow Up (TCM week #3) 08/08/2024 Telephone [facility] [address] [facility] [address] [place] [address] Tracy Olivares MD Information 08/07/2024 11:20 AM SHUT OFF WORKER Telemedicine [facility] [address] [facility] [address] [place] [address] Tracy Olivares MD Back Pain; TCM (/) 08/06/2024 Telephone [place] [address] [facility] [address] [place] [address] Tracy Olivares MD Information 2024 Patient Outreach [facility] [address] [facility] [address] [place] [address] Marisel Mancini RN Hospital Follow Up (TCM Week #2) 07/30/2024 Scan Message Missile INFO SRVCS Scanned, Doc Med Group 07/27/2024 Telephone [facility] [address] [facility] [address] [place], [place] [address] Tracy Olivares MD Appointment Request; Medication 07/25/2024 Patient Outreach [place] [address] [facility] [address] [place] [address] Marisel Mancini, ARACELIS TCM ([facility] 06/27-07/10- discitis of lumbar region. [facility] [place] 07/10-07/24/24) 07/25/2024 Telephone [place] [address] [facility] [address] [place], [place] [address] Tracy Olivares MD Referral 07/24/2024 Scan [facility] INFO SRVCS Scanned, Doc Med Group 07/23/2024 Telephone [facility] [place] [address] [facility] [address] [place] [address] Tracy Olivares MD Referral 07/17/2024 Patient Outreach [facility] [place] [address] [facility] [address] [place] [address] Marisel Mancini RN Hospital Follow Up (Call to [facility]. ) 07/11/2024 Patient Outreach [facility] [address] [place] [address] [address] [place] [address] Marisel Mancini RN Hospital Follow Up (Call to [facility]. ) 07/10/2024 Scan [facility] INFO SRVCS Scanned, Doc Med Group 07/10/2024 Telephone [facility] [address] [place] [address] [address] [place] [address] Tracy Olivares MD TCM 07/03/2024 Telephone [facility] [address] [facility] [address] [place] [address] Tracy Olivares MD Quality Gap Closure 07/02/2024 Scan [facility] INFO SRVCS Scanned, Doc Med Group 06/28/2024 Patient Outreach [facility] [address] [place] [address] [address] [place] [address] Marisel Mancini RN Hospital Follow Up ( TCM [facility] Admit 06/27/24- lumbar discitis) 06/28/2024 [facility] [address] [facility] [address] [place] [address] Marisel Mancini RN Hospital Follow Up (Call to [facility]. ) 06/26/2024 Scan [facility] INFO SRVCS Scanned, Doc [facility] Lab (SCAN); Image (SCAN) 06/25/2024 Patient Outreach [facility] - [address] [place] [address] Tracy Olivares MD Pre-visit Gap Closure from [...] 127.9 kg (282 lb) 08/21/2024 12:28 PM SHUT OFF WORKER Height 157.5 cm (5' 2 ) 08/21/2024 12:28 PM SHUT OFF WORKER Body Mass Index 51.58 08/21/2024 12:28 PM SHUT OFF WORKER Plan of Treatment Upcoming Encounters Date Type Department Care Team (Late st Contact Info) Description 10/03/2024 11:00 AM SHUT OFF WORKER Office Visit [facility] - [address] [address] Nathan Baig MD [address] [place] [address] 11/14/2024 10:20 AM SHUT OFF WORKER Office Visit [facility] Multispecialty Care - [place] [address] [address] [place] [address] [place] [address] [place] [address] Health Maintenance Due Date Last Done Comments [...] COMPREHENSIVE METABOLIC PANEL Routine 09/03/2024 5:01 PM SHUT OFF WORKER Essential hypertension VENIPUNC ARM DRAW Routine 09/03/2024 1:3 8 PM SHUT OFF WORKER General medical exam OUTSIDE LAB (SCAN ORDER) 08/29/2024 OUTSIDE LAB (SCAN ORDER) 08/29/2024 OUTSIDE LAB (SCAN ORDER) 08/29/2024 OUTSIDE LAB (SCAN ORDER) 08/28/2024 OUTSIDE LAB (SCAN ORDER) 08/28/2024 OUTSIDE LAB (SCAN ORDER) 08/28/2024 OUTSIDE LAB (SCAN ORDER) 08/28/2024 OUTSIDE LAB (SCAN ORDER) 08/24/2024 XR PELVIS+RT HIP 2V Routine 08/22/2024 1 :59 PM SHUT OFF WORKER Pain of both hip joints XR HIP LT 2V Routine 08/22/2024 1:59 PM SHUT OFF WORKER Pain of both hip joints OUTSIDE LAB (SCAN ORDER) 08/20/2024 OUTSIDE LAB (SCAN ORDER) 08/14/2024 OUTSIDE LAB (SCAN ORDER) 08/14/2024 OUTSIDE LAB (SCAN ORDER) 08/08/2024 OUTSIDE LAB (SCAN ORDER) 08/08/2024 VENIPUNC ARM DRAW Routine 08/07/2024 5:5 8 PM SHUT OFF WORKER Discitis of lumbar region OUTSIDE LAB (SCAN [...] (ABNORMAL) COMPREHENSIVE METABOLIC PANEL (09/03/2024 5:01 PM SHUT OFF WORKER) GLUCOSE 106(H) 65 - 99 mg/dL [facility] Comment: ? Fasting reference interval For someone without known diabetes, a glucose value between 100 and 125 mg/dL is consistent with prediabetes and should be confirmed with a follow-up test. BUN 15 7 - 25 mg/dL [facility] CREATININE S/P/B 0.70 0.50 - 1.05 mg/dL [facility] GFR ESTIMATE 94 > OR = 60 mL/min/1. 73m2 [facility] BUN CREATININE RATIO SEE NOTE: (calc) [facility] Comment: ?? Not Reported: BUN and Creatinine are within ?? reference range. ? SODIUM S/P/B 140 135 - 146 mmol/L [facility] POTASSIUM S/P/B 4.2 3.5 - 5.3 mmol/L [facility] CHLORIDE S/P/B 99 98 - 110 mmol/L [facility] CO2 33(H) 20 - 32 mmol/L [facility] CALCIUM S/P/B 10.1 8.6 - 10.4 mg/dL [facility] TOTAL PROTEIN S/P/B 7.5 6.1 - 8.1 g/dL [facility] ALBUMIN S/P/B 4.3 3.6 - 5.1 g/dL [facility] GLOBULIN 3.2 1.9 - 3.7 g/dL (calc) [facility] ALBUMIN/GLOBULI N RATIO 1.3 1.0 - 2.5 (calc) [facility] BILIRUBIN TOTAL S/P/B 0.5 0.2 - 1.2 mg/dL [facility] ALKALINE PHOSPHATASE S/P/B 146 37 - 153 U/L [email or web address] [facility] AST 18 10 - 35 U/L [employer] [facility] [employer] [facility] ALT 17 6 - 29 U/L [facility] [employer] [facility] 09/03/2024 5:01 PM SHUT OFF WORKER 09/05/2024 2:52 AM SHUT OFF WORKER Narrative Resulting Agency Comment Performing Organization Information: ?Site ID: [place] ?Name: [facility] ?Address: [address] [address] ?Director: Mahin Mckeon MD us Tracy Olivares MD LABORATORY Final Result [facility] [email or web address] [facility] [address] [address], * OUTSIDE LAB (SCAN ORDER) (08/29/2024) Only the most recent of18 resultswithin the time period is included. 08/29/2024 us [facility] Scanned SCANNING Final Resu lt * XR HIP LT 2V (08/22/2024 1:59 PM SHUT OFF WORKER) Anatomical Region Laterality Modality Hip Radiographic Zeynep ging 08/22/2024 1:42 PM SHUT OFF WORKER Narrative 08/27/2024 4:31 AM SHUT OFF WORKER [address] ??[address] INDICATION: Worsening hip and groin pain. COMPARISON: [...] Procedure Note Aurelio Kincaid MD - 08/27/[address] [address] INDICATION: Worsening hip and groin pain. COMPARISON: [...] XR PELVIS+RT HIP 2V (08/22/2024 1:59 PM SHUT OFF WORKER) Anatomical Region Laterality Modality Hip, Pelvis Radiographic Zeynep ging 08/22/2024 1:42 PM SHUT OFF WORKER Narrative 08/27/2024 4:31 AM SHUT OFF WORKER [facility] Internal [address] ??[address] INDICATION: Worsening hip and groin pain. COMPARISON: [...] Procedure Note Aurelio Kincaid MD - 08/27/[address] [address] INDICATION: Worsening hip and groin pain. COMPARISON: [...] included. Anatomical Region Laterality Modality Other 06/26/2024 [facility] Group Scanned SCANNING Final Resu lt * MAMMOGRAM GENERIC (SCAN ORDER) (05/10/2024) Anatomical Region Laterality Modality Other 05/10/2024 [facility] Group Scanned SCANNING Final Resu lt * (ABNORMAL) HEMOGLOBIN, GLYCOSYLATED (03/23/2024 10:43 AM CDT) HGB A1C 6.1(H) <5.7 % of total Hgb [facility] Comment: For someone without known diabetes, a [...] change in test platforms from the Cohen Soaking Room Operator to the Tanisha jarrett c503 may have shifted HbA1c results compared to historical results. Based on laboratory validation testing conducted at [facility], the Tanisha platform relative to the Cohen [...] Performing Organization Information: ?Site ID: [place] ?Name: [facility] ?Address: [address] [address] ?Director: Mahin Mckeon MD Tracy Olivares MD LABORATORY Final Result Performing Organization Address City/[facility]/ZIP Co de Phone Number ANILA CABAN [email or web address] [facility] [address] [address] [address], * LIPID PANEL (03/23/2024 10:43 AM CDT) CHOLESTEROL 125 <200 mg/dL [facility] HDL 62 > OR = 50 mg/dL [facility] TRIGLYCERIDES 83 <150 mg/dL [facility] LDL (CALCULATED) 46 mg/dL (calc) [facility] Comment: Reference range: <100 Desirable range <100 mg/dL for primary prevention; ?? <70 mg/dL for patients with CHD or diabetic patients with > or = 2 CHD risk factors. LDL-C is now calculated using the Go calculation, which is a validated novel method providing better accuracy than the Friedewald equation in the estimation of LDL-C. Buddy ANAND et al. PORTER. 2013;310(19): 9785-4303 (http://education.[employer]/faq/FIZ557) CHOL/HDL RATIO 2.0 <5.0 (calc) [facility] NON HDL CHOLESTEROL 63 <130 mg/dL (calc) [facility] Comment: For patients with diabetes plus 1 major ASCVD risk factor, treating to a non-HDL-C goal of <100 mg/dL (LDL-C of <70 mg/dL) is considered a therapeutic option. 03/23/2024 10:4 3 AM CDT 03/24/2024 3:18 AM CDT Narrative Resulting Agency Comment Performing Organization Information: ?Site ID: [place] ?Name: [facility] [place] ?Address: [address] [address] ?Director: Mahin Mckeon MD Tracy Olivares MD LABORATORY Final Result Performing Organization Address City/[facility]/ZIP Co de Phone Number [facility] [address] [address] [address], [place] * DIABETIC RETINOPATHY EXAM (NEGATIVE)(SCAN) (02/02/2023) [facility] Scanned SCANNING Final Resu lt [facility] ONBASE * BONE DENSITY/DEXA (03/17/2021 12:00 AM CDT) Anatomical Region Laterality Modality Bone Bone Density 03/17/2021 Tracy Olivares MD DEXA Final Result * HEPATITIS C ANTIBODY (03/03/2021 11:09 AM CDT) HEPATITIS C AB NON-REACTI VE NON-REACT PATRIA 03/04/2021 6:[address] [facility] Comment: ANTIBODIES TO HCV NOT DETECTED. DOES NOT EXCLUDE THE POSSIBILITY OF EXPOSURE TO HCV. 03/03/2021 11:0 9 AM CDT Tracy Olivares MD LABORATORY Final Result [facility] [address] [place] [address], [id number] * COLONOSCOPY GENERIC (05/26/2020) 05/26/2020 Narrative 05/26/2020 Ordered by an unspecified provider. Documents Scanned SCANNING Final Result from Last 3 Months or Most Recently Relevant to Health Maintenance Insurance [employer] Care Teams Young Adult Librarian Relationship Specialty Start Date End Date Tracy Olivares MD [address] [facility] [address] [place] [id number] PCP - General INTERNAL MEDICINE 01/02/21 Nathan Baig MD [address] [address] Consulting Physician Internal Medicine Pulmonary Disease 09/16/21
--- OUTSIDE RECORDS SUMMARY | 2024-09-07 15:16 | XMS_ITS | Encounter Summary ---
Author Organization [facility] Address [address] [place] [address]. [place] [id number] [place] [address] Care Team Providers Care Feed Mill Tender Name Role Phone Tracy Olivares MD Primary Care Provider [phone] Nathan Baig MD Unavailable [phone] Reason for Visit * Reason Onset Date Comments Error 08/17/2024 Encounter Details Date Type Department Care Team (Late st Contact Info) Description 08/17/2024 Telephone [facility] Medical Group Multispecialty Care - [place] [address] [address] [place] [address] [place] [address] [place] [address] [address] [place] [address] Error Social History Tobacco Use [...] Huffman - 08/17/2024 9:11 AM CST Error TING SUPPLIES SALES REPRESENTATIVE documented in this encounter Plan of Treatment Upcoming Encounters Date Type Department Care Team (Late st Contact Info) Description 10/03/2024 11:00 AM PRINTING SUPPLIES SALES REPRESENTATIVE Office Visit [facility] Medical [facility] - [address] [address] Nathan Baig MD [address] [address] 11/14/2024 10:20 AM PRINTING SUPPLIES SALES REPRESENTATIVE Office Visit [facility] Multispecialty Care - [place] [address] [address] [place] [address] Tracy Olivares MD [address] [place] [address] documented as of this encounter Visit Diagnoses Not on filedocumented in this encounter Additional Health Concerns Assessment Noted Time PHQ-9 Depression Total Score: 2 09/14/19 24 11:30 AM PRINTING SUPPLIES SALES REPRESENTATIVE documented as of this encounter Care Teams Feed Mill Tender Relationship Specialty Start Date End Date Tracy Olivares MD [address] [place] [address] PCP - General INTERNAL MEDICINE 01/02/21 Nathan Baig MD [address] [address] Consulting Physician Internal Medicine Pulmonary Disease 09/16/21 documented as of this encounter
--- OUTSIDE RECORDS SUMMARY | 2024-09-07 15:16 | XMS_ITS | CONTINUITY OF CARE DOCUMENT ---
Author Name sony cardoza Address Unknown Organization [facility] Address [address] [facility] [address] [place] [address] Phone [phone] Care Team Providers Care Client Operations Manager Name Role Phone KELLY HOFFMAN, CORNEL Unavailable CORNEL MENDOZA MD Unavailable INSURANCE PROVIDERS Payer name Policy type / Coverage type Teague red constitution party ID [employer] AND FAMILY [employer] Medicaid 1 [id number]
--- OUTSIDE RECORDS SUMMARY | 2024-09-07 15:16 | XMS_ITS ---
Author Name Karina SHIRLEY, MRS. Schreiber npal Address [address] [place] [address] Phone [phone] Organization [facility] Care Team Providers Care Technician Name Role Phone Gilbert Collins Unavailable [phone] [facility] Tier 1 RN (STL), Arlette loving Unavailable [facility] Home CHW (STL), Amara Lorenzo Unavailable Unavailable VINICIUS PA Unavailable [phone] Reason for Referral Not Available Allergies, adverse [...] times per day 2024-06-18 No Data Available [employer] medineeringe blood glucose monitoring system 0 Use as [...] 125.19 kgBody Mass Index (BMI) - 43.88 kg/p9Kmwty Rate - 91.0 /minBody Temperature - 36.22 [...] least 75 minutes total time on encounte [id number] 2024-06-19 No Data Available No Data Availa [...] (03/2024)continue JardianceFreestyle Lite glucometer rx placed to cotton picker OTCencouraged exercising as tolerateddiscussed eating healthy [...] not attend ing meetings; has membership to [employer] but does not go. She is not [...]
--- OUTSIDE RECORDS SUMMARY | 2024-09-07 15:16 | XMS_ITS | Encounter Summary ---
Author Organization [facility] Address [address] [place] [address]. [place], [place] [address] [place] [address] Care Team Providers Care Horseback Riding Instructor Name Role Phone Tracy Olivares MD Primary Care Provider [phone] Nathan Baig MD Unavailable [phone] Encounter Details Date Type Department Care [...] Contact Info) Description 10/03/2024 11:00 AM PET ADOPTION COUNSELOR Office Visit [facility] Medical Group [facility] - [place] [address] [address] [facility] [address] [place] [address] Nathan Baig MD [address] [place] [address] 11/14/2024 10:20 AM PET ADOPTION COUNSELOR Office Visit [facility] Medical Group Multispecialty Care - [place] [address] [address] [facility] [address] [place] [address] Tracy Olivares MD 1188 [facility] 157 [place] [address] documented as of this encounter Visit Diagnoses Not on filedocumented in this encounter Additional Health Concerns Assessment Noted Time PHQ-9 Depression Total Score: 2 09/14/19 24 11:30 AM PET ADOPTION COUNSELOR documented as of this encounter Care Teams Horseback Riding Instructor Relationship Specialty Start Date End Date Tracy Olivares MD 1188 [facility] 157 [place] [address] PCP - General INTERNAL MEDICINE 01/02/21 Nathan Baig MD [address] [address] Consulting Physician Internal Medicine Pulmonary Disease 09/16/21 documented as of this encounter
--- OUTSIDE RECORDS SUMMARY | 2024-09-07 15:16 | XMS_ITS | Encounter Summary ---
Author Organization [facility] Address [address] [place] [address]. [place], [place] [address] [place] [address] Care Team Providers Care Neon Light Installer Name Role Phone Tracy Olivares MD Primary Care Provider [phone] Nathan Baig MD Unavailable [phone] Encounter Details Date Type Department Care [...] st Contact Info) Description 10/03/2024 11:00 AM GAS MANAGER [facility] - [place] [address] [address] [facility] [address] [place] [address] Nathan Baig MD [address] [place] [address] 11/14/2024 10:20 AM GAS MANAGER [facility] Mult[facility]ty Care - [place] [address] [address] [facility] [address] [place] [address] Tracy Olivares MD 1188 [facility] 157 [place] [address] documented as of this encounter Visit Diagnoses Not on filedocumented in this encounter Additional Health Concerns Assessment Noted Time PHQ-9 Depression Total Score: 2 09/14/19 24 11:30 AM GAS MANAGER documented as of this encounter Care Teams Neon Light Installer Relationship Specialty Start Date End Date Tracy Olivares MD 1188 [facility] 157 [place] [address] PCP - General INTERNAL MEDICINE 01/02/21 Nathan Baig MD [address] [address] Consulting Physician Internal Medicine Pulmonary Disease 09/16/21 documented as of this encounter
--- OUTSIDE RECORDS SUMMARY | 2024-09-07 15:16 | XMS_ITS | Encounter Summary ---
Author Organization [facility] Address [address] [place] [address]. [place] [id number] [place] [address] Care Team Providers Care Product Tester Name Role Phone Tracy Olivares MD Primary Care Provider [phone] Nathan Baig MD Unavailable [phone] Reason for Visit * Reason Onset Date Comments Quality Gap Closure 05/16/2024 Encounter Details Date Type Department Care Team (Late st Contact Info) Description 05/16/2024 Telephone [facility] Medical Group Multispecialty Care - [place] [address] [address] [place] [address] [place] [address] [place] [address] 157 [place] [address] Quality Gap Closure Social History [...] Contact Info) Description 10/03/2024 11:00 AM SOFTWARE TEST AND VALIDATION ENGINEER Office Visit [facility] Medical Group Pulmonology Specialty Clinic - [address] [address] Nathan Baig MD 3 [facility] 5000 [place] [address] 11/14/2024 10:20 AM SOFTWARE TEST AND VALIDATION ENGINEER Office Visit [facility] Multispecialty Care - [place] [address] [address] [place] [address] Tracy Olivares MD [address] [place] [address] Scheduled Orders Name Type Priority Associated Diagnoses Orde r Schedule ALBUMIN/CREATININE RATIO, RANDOM URINE Lab Routine Type 2 diabetes mellitus with hyperglycemia, without long-term current use of insulin ([facility]) Expected: 05/16/2024, Expires: 05/16/2025 documented as of this encounter Visit Diagnoses Diagnosis Type 2 diabetes mellitus with hyperglycemia, without long-term current use of insulin ([facility])- Primary documented in this encounter Additional Health Concerns Assessment Noted Time PHQ-9 Depression Total Score: 2 09/14/19 24 11:30 AM SOFTWARE TEST AND VALIDATION ENGINEER documented as of this encounter Care Teams Product Tester Relationship Specialty Start Date End Date Tracy Olivares MD [address] [place] [address] PCP - General INTERNAL MEDICINE 01/02/21 Nathan Baig MD 3 [facility] [address] [place] [address] Consulting Physician Internal Medicine Pulmonary Disease 09/16/21 documented as of this encounter
--- OUTSIDE RECORDS SUMMARY | 2024-09-07 15:16 | XMS_ITS | Encounter Summary ---
Author Organization [facility] Address [address] [place] [address]. [place] [id number] [place] [address] Care Team Providers Care Customer Servicer Name Role Phone Tracy Olivares MD Primary Care Provider [phone] Nathan Baig MD Unavailable [phone] Reason for Visit * Reason Onset Date Comments Lab Results 08/29/2024 Encounter Details Date Type Department Care Team (Late st Contact Info) Description 08/29/2024 Telephone [facility] Medical Group Multispecialty Care - [place] [address] [address] [place] [address] [place] [address] [place] [address] 157 [place] [address] Lab Results Social History Tobacco [...] - 08/29/2024 9:05 AM CST Babita from [facility] called and stated that patient's Potassium level was >8 and wanted further instruction from Dr. Olivares. Dr. Olivares suggested that patient go to ER [facility] and Babita v/a to follow protocol. INUOUS MINING OPERATOR documented in this encounter Plan of Treatment Upcoming Encounters Date Type Department Care Team (Late st Contact Info) Description 10/03/2024 11:00 AM CONTINUOUS MINING OPERATOR Office Visit [facility] Medical [facility] Pulmonology Specialty Clinic - [address] [address] Nathan Baig MD 3 [facility] [place] [address] [place] [address] 11/14/2024 10:20 AM CONTINUOUS MINING OPERATOR Office Visit [facility] Multispecialty Care - [place] [address] [address] [place] [address] Tracy Olivares MD [address] [place] [address] documented as of this encounter Visit Diagnoses Not on filedocumented in this encounter Additional Health Concerns Assessment Noted Time PHQ-9 Depression Total Score: 2 09/14/19 24 11:30 AM CONTINUOUS MINING OPERATOR documented as of this encounter Care Teams Customer Servicer Relationship Specialty Start Date End Date Tracy Olivares MD [address] [place] [address] PCP - General INTERNAL MEDICINE 01/02/21 Nathan Baig MD 3 [facility] [place] [address] [place] [address] Consulting Physician Internal Medicine Pulmonary Disease 09/16/21 documented as of this encounter
--- OUTSIDE RECORDS SUMMARY | 2024-09-07 15:16 | XMS_ITS | Encounter Summary ---
Author Organization [facility] Address [address] [place] [address]. [place], [place] [address] [place] [address] Care Team Providers Care Art Psychotherapist Name Role Phone Tracy Olivares MD Primary Care Provider [phone] Nathan Baig MD Unavailable [phone] Reason for Visit * Reason Onset Date Comments Information 06/04/2024 Encounter Details Date Type Department Care Team (Late st Contact Info) Description 06/04/2024 Telephone [facility] Medical Group Multispecialty Care - [place] [address] [address] [place] [address] [place] [address] [place] [address] 157 [place] [address] Information Social History Tobacco Use [...] 4:34 PM CDT Glucometer order sent in [facility] is a continuous sensor she would wear we can order that but her sugars are controlled I'mnot sure if she would want to switch to this. documented in this encounter Plan of Treatment Upcoming Encounters Date Type Department Care Team (Late st Contact Info) Description 10/03/2024 11:00 AM NETWORK SUPPORT MANAGER Office Visit [facility] Medical Group Pul[facility] Specialty Clinic - [address] [address] Nathan Baig MD [address] [id number] 11/14/2024 10:20 AM NETWORK SUPPORT MANAGER Office Visit [facility] Multispecialty Care [place] [address] [address] [place] [address] Tracy Olivares MD [address] [place] [address] documented as of this encounter Visit Diagnoses Diagnosis Type 2 diabetes mellitus with hyperglycemia, without long-term current use of insulin ([facility])- Primary documented in this encounter Additional Health Concerns Assessment Noted Time PHQ-9 Depression Total Score: 2 09/14/19 24 11:30 AM NETWORK SUPPORT MANAGER documented as of this encounter Care Teams Art Psychotherapist Relationship Specialty Start Date End Date Tracy Olivares MD [address] [place] [address] PCP - General INTERNAL MEDICINE 01/02/21 Nathan Baig MD 3 [facility] [place] [address] [place] [address] Consulting Physician Internal Medicine Pulmonary Disease 09/16/21 documented as of this encounter
--- OUTSIDE RECORDS SUMMARY | 2024-09-07 15:16 | XMS_ITS | Encounter Summary ---
Author Organization [facility] Address [address] [place] [address]. [place] [phone] [place] [address] Care Team Providers Care Carpet Sewing Machine Operator Name Role Phone Tracy Olivares MD Primary Care Provider [phone] Nathan Baig MD Unavailable [phone] Marisel Mancini RN Unavailable [phone] Reason for Visit * Reason Onset Date Comments Referral 07/25/2024 Encounter Details Date Type Department Care Team (Late st Contact Info) Description 07/25/2024 Telephone [facility] Medical Group Multispecialty Care - [place] [address] [address] [place] [address] Tracy Olivares MD 1188 [facility] 157 [place] [address] Referral Social History Tobacco Use [...] PM CST Order has been refaxed. 07/25/2024 ERADICATOR * Bahman Conrad - 07/25/2024 9:58 AM CST Milena (home health coordinator) called and requested that patient have an Order for PT,OT &DETENTION placed as patient is being d/c on 07/25/24 from Rehab. Patient being d/c on IV Abx and Infectious Disease Physician following regarding that portion of patient care. 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 Milena: ERADICATOR documented in this encounter Plan of Treatment Upcoming Encounters Date Type Department Care Team (Late st Contact Info) Description 10/03/2024 11:00 AM WEED ERADICATOR Office Visit [facility] Medical Group Pulmonology Specialty Clinic - [address] [address] Nathan Baig MD [address] [place] [address] 11/14/2024 10:20 AM WEED ERADICATOR Office Visit [facility] Medical Group Multispecialty Care - [place] [address] [address] [place] [address] Tracy Olivares MD [address] [place] [address] documented as of this encounter Visit Diagnoses Not on filedocumented in this encounter Additional Health Concerns Assessment Noted Time PHQ-9 Depression Total Score: 2 09/14/19 11:30 AM WEED ERADICATOR documented as of this encounter Care Teams Carpet Sewing Machine Operator Relationship Specialty Start Date End Date Tracy Olivares MD [address] [place] [address] PCP - General INTERNAL MEDICINE 01/02/21 Nathan Baig MD [address] [address] Consulting Physician Internal Medicine Pulmonary Disease 09/16/21 Marisel Mancini, RN [address]1 [place], [place] [address] Driver (Ambulatory) REGISTERED NURSE 06/28/24 08/07/24 documented as of this encounter
--- OUTSIDE RECORDS SUMMARY | 2024-09-07 15:16 | XMS_ITS | Encounter Summary ---
Author Organization [facility] Address [address] [place] [address]. [place], [place] [address] [place] [address] Care Team Providers Care Heel Compressor Name Role Phone Tracy Olivares MD Primary Care Provider [phone] Nathan Baig MD Unavailable [phone] Marisel Mancini RN Unavailable [phone] Reason for Visit * Reason Onset Date Comments [facility] 07/25/2024 [facility] 06/27-07/10- discitis of lumbar region. Then [facility] for rehab 07/10-07/24/24 Encounter Details Date Type Department Care Team (Latest Contact Info) Description 07/25/2024 Patient Outreach [facility] Medical Group Multispecialty Care - [address] [place] [address] Marisel Mancini, RN [address] [place] [address] [facility] ([facility] 06/27-07/10- discitis of lumbar region. Then [facility] for rehab 07/10-07/24/24) Social History Tobacco [...] to patient post hospitalization Patient admitted to [facility] on 06/27/24 with discharge diagnosis of discitis of lumbar region. Then went to [facility] 07/10-07/24/24 for rehab and IV therapy. 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 BP has [...] Inpatient: flu and pneumonia vaccine given at [facility]. Discharge Disposition: Home with [facility]. Any follow up appointments needed to be scheduled: yes, patient needs a TCM appt with PCP Future Appointments Date Time Provider Department Center 10/03/2024 11:00 AM Nathan Baig MD [id number] Referrals needed: no. Currently has an ADDUS [...] two times a day) 180 tablet 1 Iuhpgadcdor-Pemvymfzi-Xlbzde (TRELEGY ELLIPTA) 100-62.5-25 MCG/ACT AEROSOL POWDER, BREATH [...] day before meals. 100 each 1 Lancets [facility] Use daily to check blood sugar. Okay [...] Changes or Discontinued Medications: Medlist reviewed from [facility] with the patient. She is independent with her meds and has no questions. Does patient have difficulty affording medication: no Do any medications need refilled: no Does patient have access to care and services (rides, etc)? Yes. She uses [facility] for transportation, if she can't find anyone [...] patient by phone and patient is agreeable. ECTOR OPERATOR ECTOR OPERATOR ECTOR OPERATOR * Katharina Underwood MA - 07/25/2024 10:15 AM CST Follow up call to patient post hospitalization Date of hospital discharge: 07/24/24 Patient discharged from: [facility] Discharge diagnosis/diagnoses: diskitis of the lumbar region/osteomyelitis Procedures performed while inpatient: IV antibiotics for 6 weeks Any follow up services needed: F/U with PCP Education on self management: Yes Does patient have access to care and services (rides, etc)? Yes Appointment scheduled for follow up in the office: 08/07/24 11:20 AM ECTOR OPERATOR documented in this encounter Plan of Treatment Upcoming Encounters Date Type Department Care Team (Late st Contact Info) Description 10/03/2024 11:00 AM DEFLECTOR OPERATOR Office Visit [facility] Medical Group Pulmonology Specialty Clinic - [address] [place] [address] Nathan Baig MD [address] [place] [address] 11/14/2024 10:20 AM DEFLECTOR OPERATOR Office Visit [facility] Medical Group Multispecialty Care - [address] [place] [address] Tracy Olivares MD [address] [address] documented as of this encounter Visit Diagnoses Not on filedocumented in this encounter Additional Health Concerns Assessment Noted Time PHQ-9 Depression Total Score: 2 09/14/19 24 11:30 AM DEFLECTOR OPERATOR documented as of this encounter Care Teams Heel Compressor Relationship Specialty Start Date End Date Tracy Olivares MD [address] [place] [address] PCP - General INTERNAL MEDICINE 01/02/21 Nathan Baig MD [address] [address] Consulting Physician Internal Medicine Pulmonary Disease 09/16/21 Marisel Mancini, RN [address] [place] [address] Rn Utilization Management Um (Ambulatory) REGISTERED NURSE 06/28/24 08/07/24 documented as of this encounter
--- OUTSIDE RECORDS SUMMARY | 2024-09-07 15:16 | XMS_ITS | Encounter Summary ---
Author Organization [facility] Address [address] [place] [address]. [place], [place] [address] [place] [address] Care Team Providers Care Stringed Instrument Tuner Name Role Phone Tracy Olivares MD Primary Care Provider [phone] Nathan Baig MD Unavailable [phone] Encounter Details Date Type Department Care [...] st Contact Info) Description 10/03/2024 11:00 AM SHANK CEMENTER HAND Office Visit [facility] Medical Group Pulmonology Specialty Clinic - [place] [address] [address] Nathan Bagi MD [address] [place] [address] 11/14/2024 10:20 AM SHANK CEMENTER HAND Office Visit [facility] Medical Group Multispecialty Care - [place] [address] [address] [place] [address] Tracy Olivares MD [address] [place] [address] documented as of this encounter Visit Diagnoses Not on filedocumented in this encounter Additional Health Concerns Assessment Noted Time PHQ-9 Depression Total Score: 2 09/14/19 24 11:30 AM SHANK CEMENTER HAND documented as of this encounter Care Teams Stringed Instrument Tuner Relationship Specialty Start Date End Date Tracy Olivares MD [address] [place] [address] PCP - General INTERNAL MEDICINE 01/02/21 Nathan Baig MD [address] [address] Consulting Physician Internal Medicine Pulmonary Disease 09/16/21 documented as of this encounter
--- OUTSIDE RECORDS SUMMARY | 2024-09-07 15:16 | XMS_ITS | Encounter Summary ---
Author Organization [facility] Address [address] [place] [address]. [place], [place] [address] [place] [address] Care Team Providers Care Gre Tutor Name Role Phone Tracy Olivares MD Primary Care Provider [phone] Nathan Baig MD Unavailable [phone] Reason for Visit * Reason Onset Date Comments Concerns 08/20/2024 Encounter Details Date Type Department Care Team (Late st Contact Info) Description 08/20/2024 Telephone [facility] Medical Group Multispecialty Care - [place] [address] [address] [place] [address] [place] [address] [place] [address] 157 [place] [address] Concerns Social History Tobacco Use [...] she fell about 1 1/2 year ago. TY SHERIFF documented in this encounter Plan of Treatment Upcoming Encounters Date Type Department Care Team (Late st Contact Info) Description 10/03/2024 11:00 AM DEPUTY SHERIFF Office Visit [facility] Medical [facility] Pulmonology Specialty Clinic - [address] [address] Nathan Baig MD 3 [facility] 5000 [place] [address] 11/14/2024 10:20 AM DEPUTY SHERIFF Office Visit [facility] Multispecialty Care - [place] [address] [address] [place] [address] Tracy Olivares MD [facility] [address] [address] documented as of this encounter Visit Diagnoses Not on filedocumented in this encounter Additional Health Concerns Assessment Noted Time PHQ-9 Depression Total Score: 2 09/14/19 24 11:30 AM DEPUTY SHERIFF documented as of this encounter Care Teams Gre Tutor Relationship Specialty Start Date End Date Tracy Olivares MD [address] [place] [address] PCP - General INTERNAL MEDICINE 01/02/21 Nathan Baig MD 3 [facility] [place] [address] [place] [address] Consulting Physician Internal Medicine Pulmonary Disease 09/16/21 documented as of this encounter
--- OUTSIDE RECORDS SUMMARY | 2024-09-07 15:16 | XMS_ITS | Encounter Summary ---
Author Organization [facility] Address [address] [place] [address]. [place] [id number] [place] [address] Care Team Providers Care Core Composer Machine Tender Name Role Phone Tracy Olivares MD Primary Care Provider [phone] Nathan Baig MD Unavailable [phone] Marisel Mancini RN Unavailable [phone] Reason for Visit * Reason Onset Date Comments Quality Gap Closure 07/03/2024 Encounter Details Date Type Department Care Team (Late st Contact Info) Description 07/03/2024 Telephone [facility] Medical Group Multispecialty Care [place] [address] [place] [address] [address] [place] [address] [place] [address] [place] [address] 157 [place], [place] [id number] Quality Gap Closure Social History Tobacco Use [...] st Contact Info) Description 10/03/2024 11:00 AM BLOOD DONOR RECRUITER Office Visit [facility] Medical [facility] Pulmonology Specialty Clinic - [address] [address] Nathan Baig MD [address] [address] 11/14/2024 10:20 AM BLOOD DONOR RECRUITER Office Visit [facility] Multispecialty Care - [place] [address] [address] [place] [address] Tracy Olivares MD [address] [place] [address] documented as of this encounter Visit Diagnoses Not on filedocumented in this encounter Additional Health Concerns Assessment Noted Time PHQ-9 Depression Total Score: 2 09/14/19 24 11:30 AM BLOOD DONOR RECRUITER documented as of this encounter Care Teams Core Composer Machine Tender Relationship Specialty Start Date End Date Tracy Olivares MD [address] [place] [address] PCP - General INTERNAL MEDICINE 01/02/21 Nathan Baig MD [address] [address] Consulting Physician Internal Medicine Pulmonary Disease 09/16/21 Marisel Mancini, RN [address]1 [place] [address] Maintenance Department Manager (Ambulatory) REGISTERED NURSE 06/28/24 08/07/24 documented as of this encounter
--- OUTSIDE RECORDS SUMMARY | 2024-09-07 15:16 | XMS_ITS | Encounter Summary ---
Author Organization [facility] Address [address] [place] [address]. [place] [id number] [place] [address] Care Team Providers Care Window Framer Name Role Phone Tracy Olivares MD Primary Care Provider [phone] Nathan Baig MD Unavailable [phone] Marisel Mancini RN Unavailable [phone] Reason for Visit * Reason Comments Back Pain TCM Encounter Details Date Type Department Care Team (Latest Contact Info) Description 08/07/2024 11:20 AM SCIENTIFIC INFORMATICS PROJECT LEADER Telemedicine [facility] Medical Group Multispecialty Care - [place] [address] [address] [place] [address] [place] [address] [place] [address] [address] [place], [place] [id number] Back Pain; TCM (/) Social History Tobacco [...] 125.6 kg (277 lb) 08/07/2024 11:23 AM SCIENTIFIC INFORMATICS PROJECT LEADER Height 157.5 cm (5' 2 ) 08/07/2024 11:23 AM SCIENTIFIC INFORMATICS PROJECT LEADER Body Mass Index 50.66 08/07/2024 11:23 AM SCIENTIFIC INFORMATICS PROJECT LEADER documented in this encounter Patient Instructions * Patient Instructions* Tracy Olivares MD - 08/07/2024 11:20 AM SCIENTIFIC INFORMATICS PROJECT LEADER Follow up with neurosurgery in the next 3 months. Get your Chest xray done in 3 months as well. Wear your back brace as directed. [address] [place] [address] NTIFIC INFORMATICS PROJECT LEADER NTIFIC INFORMATICS PROJECT LEADER documented in this encounter Progress Notes * [...] well. In summary: Patient is [age]-year-old -Macanese female with history of asthma, emphysema, hyperlipidemia, GERD, chronic low back pain, peripheral neuropathy and hypertension recently admitted initially at [facility] after originally presenting at [facility] for worsening low back pain with concerns for L4-L5 discitis/osteomyelitis currently on IV cefepime for total of 6 weeks here for hospital follow-up. Since Discharge: Keegan has been doing well. HPI: Patient is [age]-year-old -Macanese female with history of asthma, emphysema, hyperlipidemia, GERD, chronic low back pain, peripheral neuropathy and [facility] for worsening low back pain. Patient had [...] and pain was controlled. Subsequentlytransferred to a [facility] facility. Home health has since been ordered for patient. She has a PICC line on the right. No fever or chills since discharge. Tolerating orals well. No diarrhea on antibiotics. No blood in stool. Not using any pain medications and declines any refills. She reportshas not done well on [place] or tramadol as this causes excessive sedation. No recent falls. Denies any numbness or tingling in the lower extremities. She feels well overall. Currently supposed to wearher back brace and not consistently using it. I introduced and identified myself, received verbal consent from the patient to proceed with this video visit and made the patient aware that the same confidentiality and information technology manager practices apply. The patient joined the video visit from Home. I completed the virtual visit from Office. The following clinical staff helped with this visit MA: Najma Valladares Total Time Spent in Minutes: 30 Patient in the [facility] at time of this visit. ROS: Review [...] heart burn., Disp: 180 tablet, Rfl: 1 Gwpshtyukgz-Vbsiiypmr-Uuibzh (TRELEGY ELLIPTA) 100-62.5-25 MCG/ACT AEROSOL POWDER, BREATH [...] meals., Disp: 100 each, Rfl: 1 Lancets [facility], Use daily to check blood sugar. Okay [...] times daily as needed for heart burn. Fzotoditxgb-Owkwwyrej-Leuemz (TRELEGY ELLIPTA) 100-62.5-25 MCG/ACT AEROSOL POWDER, BREATH [...] sugar twice a day before meals. Lancets [facility] Use daily to check blood sugar. Okay [...] Current moderate episode of major depressive disorder ([facility]) Essential hypertension Gastroesophageal reflux disease Hearing loss Impaired glucose tolerance in obese Shoulder pain Chronic low back pain with bilateral sciatica Obesity Lumbar herniated disc FAISAL on CPAP Glaucoma Cataract Anxiety Knee pain Mixed hyperglyceridemia Prediabetes Other specified anemias RLS (restless legs syndrome) Mixed hyperlipidemia Moderate persistent asthma without complication ([facility]) moth exterminator (current) use of insulin ([facility]) Type 2 diabetes mellitus with hyperglycemia, without long-term current use of insulin ([facility]) Past Medical History: Diagnosis Date Anxiety Cataract Chronic low back pain COPD (chronic obstructive pulmonary disease) ([facility]) Depression Diabetes mellitus ([facility]) GERD (gastroesophageal reflux disease) Glaucoma Hearing [...] Insecurity: No Food Insecurity (06/27/2024) Received from [facility] Food Insecurity Social/Environmental Concerns: No concerns Transportation Needs: No Transportation Needs (06/27/2024) Received from [facility] Transportation Needs Social/Environmental Concerns: No concerns Intimate Partner Violence: Not At Risk (06/27/2024) Received from [facility] Feeling Safe Are you in a relationship with someone who hurts you emotionally and/or physically?: No Housing Stability: Low Risk (06/27/2024) Received from [facility] Housing Stability Social/Environmental Concerns: No concerns Family [...] now - Ambulatory referral to Neurosurgery ( [place]) 2. Chronic bilateral low back pain with [...] the day of the encounter. This includes oqzw-yu-vfro and yat-uwjq-lf-face time I provided on the day of the encounter & excludes time spent performing separately reportable services. MD Tracy PASCAL MD Internal Medicine [facility], [facility]. NTIFIC INFORMATICS PROJECT LEADER NTIFIC INFORMATICS PROJECT LEADER documented in this encounter Plan of Treatment Upcoming Encounters Date Type Department Care Team (Late st Contact Info) Description 10/03/2024 11:00 AM SCIENTIFIC INFORMATICS PROJECT LEADER Office Visit [facility] Pulmonology Specialty Clinic - [address] [address] Nathan Baig MD [address] [place] [address] 11/14/2024 10:20 AM SCIENTIFIC INFORMATICS PROJECT LEADER Office Visit [facility] Multispecialty Care - [address] [place] [address] Tracy Olivares MD [facility] [address] [address] Scheduled Orders Name Type Priority Associated Diagnoses [...] VENIPUNC ARM DRAW Routine 08/07/2024 5:58 PM SCIENTIFIC INFORMATICS PROJECT LEADER Discitis of lumbar region documented in this encounter Visit Diagnoses Diagnosis Discitis of lumbar region- Primary Other and unspecified disc disorder of lumbar region Chronic bilateral low back pain with bilateral sciatica Epidural abscess (HHS/HCC) Intracranial and intraspinal abscess of unspecified site documented in this encounter Additional Health Concerns Assessment Noted Time PHQ-9 Depression Total Score: 2 09/14/19 24 11:30 AM SCIENTIFIC INFORMATICS PROJECT LEADER documented as of this encounter Care Teams Window Framer Relationship Specialty Start Date End Date Tracy Olivares MD [address] [facility] [address] [place] [address] PCP - General INTERNAL MEDICINE 01/02/21 Nathan Baig MD [address] [phone] Consulting Physician Internal Medicine Pulmonary Disease 09/16/21 Marisel Mancini, RN [address] [place] [address] Train Master (Ambulatory) REGISTERED NURSE 06/28/24 08/07/24 documented as of this encounter
--- OUTSIDE RECORDS SUMMARY | 2024-09-07 15:16 | XMS_ITS | Encounter Summary ---
Author Organization [facility] Address [address] [place] [address]. [place] [id number] [place] [address] Care Team Providers Care Armature Winder Name Role Phone Tracy Olivares MD Primary Care Provider [phone] Nathan Baig MD Unavailable [phone] Marisel Mancini RN Unavailable [phone] Reason for Visit * Reason Onset Date Comments Information 08/06/2024 Encounter Details Date Type Department Care Team (Late st Contact Info) Description 08/06/2024 Telephone [facility] Medical Group Multispecialty Care - [place] [address] [address] [place] [address] Tracy Olivares MD [address] [facility] [address] [place] [address] Information Social History Tobacco Use [...] Visit 08/07/24, I reached out to the [facility] in [place], and left a message, on message there is a Shayy or Lorenda with Contact Center Consultant on voice mail, I left a detailed voice message stating we need office notes from her Rehab stay faxed over. Ph-[phone] Ext [phone] RETTE MAKING MACHINE OPERATOR documented in this encounter Plan of Treatment Upcoming Encounters Date Type Department Care Team (Late st Contact Info) Description 10/03/2024 11:00 AM CIGARETTE MAKING MACHINE OPERATOR Office Visit [facility] Medical [facility] Pulmonology Specialty Clinic - [address] [address] Nathan Baig MD [address] [address] 11/14/2024 10:20 AM CIGARETTE MAKING MACHINE OPERATOR Office Visit [facility] Multispecialty Care - [place] [address] [address] [place] [address] [place] [address] [place] [address] documented as of this encounter Visit Diagnoses Not on filedocumented in this encounter Additional Health Concerns Assessment Noted Time PHQ-9 Depression Total Score: 2 09/14/19 24 11:30 AM CIGARETTE MAKING MACHINE OPERATOR documented as of this encounter Care Teams Armature Winder Relationship Specialty Start Date End Date Tracy Olivares MD [address] [place] [address] PCP - General INTERNAL MEDICINE 01/02/21 Nathan Baig MD 3 [facility] [place] [address] [place] [address] Consulting Physician Internal Medicine Pulmonary Disease 09/16/21 Marisel Mancini RN [address] [place] [address] Snake Charmer (Ambulatory) REGISTERED NURSE 06/28/24 08/07/24 documented as of this encounter
--- OUTSIDE RECORDS SUMMARY | 2024-09-07 15:16 | XMS_ITS | Encounter Summary ---
Author Organization [facility] Address [address] [place] [address]. 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 Patient already scheduled to have an appointment with this particular provider as well thank you. HANDLER * Consultation (Routine) - Authorized Specialty Diagnoses / Procedures Referred By Contoziel t Referred To Contact INFECTIOUS DISEASE Diagnoses Epidural abscess ([facility]) Procedures OFFICE/OUTPATIENT NEW LOW MDM 30-44 MINUTES OFFICE/OUTPT VISIT,NEW,LEVL IV OFFICE/OUTPT VISIT,NEW,LEVL V OFFICE/OUTPT VISIT,EST,LEVL III OFFICE/OUTPT VISIT,EST,LEVL IV OFFICE/OUTPT VISIT,EST,LEVL V Tracy Olivares MD [address] [place] [address] Phone: tel: fax: [facility] [address] [place] [phone] Phone: tel: fax: Referral ID Status Reason Start Date Expiration Date Visits Requested Visits Authorized [id number] Authorized Specialty Services 08/13/2024 08/13/2025 99 99 HANDLER Reason for Visit * Reason Onset Date Comments Referral 08/13/2024 Encounter Details Date Type Department Care Team (Late st Contact Info) Description 08/13/2024 Telephone [facility] Medical Group Multispecialty Care - [place] [address] [address] [place] [address] Tracy Olivares MD [address] [place] [phone] Referral Social History Tobacco Use Types Packs/Day [...] PM CST Neuro referral faxed on 08/15/24 HANDLER * Tracy Olivares MD - 08/15/2024 7:50 AM CSTAddended by: TRACY OLIVARES on: 08/15/2024 07:50 AM Modules accepted: Orders HANDLER * Tracy Olivares MD - 08/15/2024 7:49 AM CST Please refax neurosurgery order. Patient already has an appointment thank you. HANDLER * Katharina Underwood MA - 08/13/2024 2:53 PM CST Faxed referral on 08/13/24 HANDLER * Tracy Olivares MD - 08/13/2024 2:32 PM CST Please fax over referral to infectious disease to Dr. Ross Fischer office thanks. HANDLER documented in this encounter Plan of Treatment Upcoming Encounters Date Type Department Care Team (Late st Contact Info) Description 10/03/2024 11:00 AM ROLL HANDLER Office Visit [facility] Medical Group Pulmonology Specialty Clinic - [place] [address] [place] [address] Nathan Baig MD [address] [place] [address] 11/14/2024 10:20 AM ROLL HANDLER Office Visit [facility] Multispecialty Care - [place] [address] [place] [address] Tracy Olivraes MD [address] [address] Scheduled Referrals Name Type Priority Associated Diagnoses [...] Score: 2 09/14/19 24 11:30 AM ROLL HANDLER documented as of this encounter Care Teams Director Of Social Services Relationship Specialty Start Date End Date Tracy Olivares MD [address] [address] PCP - General INTERNAL MEDICINE 01/02/21 Nathan Baig MD [address] [address] Consulting Physician Internal Medicine Pulmonary Disease 09/16/21 documented as of this encounter
--- OUTSIDE RECORDS SUMMARY | 2024-09-07 15:16 | XMS_ITS | Encounter Summary ---
Author Organization [facility] Address [address] [place] [address]. [place] [id number] [place] [address] Care Team Providers Care Sap Bi Developer Name Role Phone Tracy Olivares MD Primary Care Provider [phone] Nathan Baig MD Unavailable [phone] Reason for Visit * Reason Onset Date Comments Pre-visit Gap Closure 06/25/2024 Encounter Details Date Type Department Care Team (Latest Contact Info) Description 06/25/2024 Patient Outreach [facility] Medical Group Multispecialty Care - [place] [address] [address] [place] [address] Tracy Olivares MD [address] [place] [address] 157 [place], [place] [phone] Pre-visit Gap Closure Social History Tobacco Use [...] st Contact Info) Description 10/03/2024 11:00 AM HYDRAULIC MINER BLASTING Office Visit [facility] Medical Group Pulmonology Specialty Clinic - [address] [address] Nathan Baig MD [address] [address] 11/14/2024 10:20 AM HYDRAULIC MINER BLASTING Office Visit [facility] Multispecialty Care - [place] [address] [address] [place] [address] Tracy Olivares MD [address] [place] [address] documented as of this encounter Visit Diagnoses Not on filedocumented in this encounter Additional Health Concerns Assessment Noted Time PHQ-9 Depression Total Score: 2 09/14/19 11:30 AM HYDRAULIC MINER BLASTING documented as of this encounter Care Teams Sap Bi Developer Relationship Specialty Start Date End Date Tracy Olivares MD [address] [place] [address] PCP - General INTERNAL MEDICINE 01/02/21 Nathan Baig MD [address] [address] Consulting Physician Internal Medicine Pulmonary Disease 09/16/21 documented as of this encounter
--- OUTSIDE RECORDS SUMMARY | 2024-09-07 15:16 | XMS_ITS | Encounter Summary ---
Author Organization [facility] Address [address] [place] [address]. [place], [place] [phone] [place] [address] Care Team Providers Care Business Law Instructor Name Role Phone Tracy Olivares MD Primary Care Provider [phone] Nathan Baig MD Unavailable [phone] Reason for Visit * Reason Comments Lower Extremity Pain Encounter Details Date Type Department Care Team (Late st Contact Info) Description 08/21/2024 12:20 PM NIB FINISHER Telemedicine [facility] Medical Group Multispecialty Care - [place] [address] [facility] [address] [place], [place] [phone] Keri Rosario, LOG SORTING SUPERVISOR [address] [facility] [address] [place] [address] Lower Extremity Pain Social History [...] 127.9 kg (282 lb) 08/21/2024 12:28 PM NIB FINISHER Height 157.5 cm (5' 2 ) 08/21/2024 12:28 PM NIB FINISHER Body Mass Index 51.58 08/21/2024 12:28 PM NIB FINISHER documented in this encounter Patient Instructions * Patient Instructions* Keri Rosario NP - 08/21/2024 12:20 PM NIB FINISHER Milk of magnesia Colace once or twice daily FINISHER documented in this encounter Progress Notes * [...] information clerk cashier practices apply. The patient confirmed at the start of this visit that they are completing this visit from Home, currently located in the [facility] [13], a state in which I am licensed to practice. I completed the virtual visit from: [address] [facility] MEDICAL GROUP MULTISPECIALTY CARE - [address] [place] [address] Dept: [phone] Dept . The following clinical staff helped [...] Current moderate episode of major depressive disorder ([facility]) Essential hypertension Gastroesophageal reflux disease Hearing loss Impaired glucose tolerance in obese Shoulder pain Chronic low back pain with bilateral sciatica Obesity Lumbar herniated disc FAISAL on CPAP Glaucoma Cataract Anxiety Knee pain Mixed hyperglyceridemia Prediabetes Other specified anemias RLS (restless legs syndrome) Mixed hyperlipidemia Moderate persistent asthma without complication ([facility]) exterminator termite (current) use of insulin ([facility]) Type 2 diabetes mellitus with hyperglycemia, without long-term current use of insulin ([facility]) Osteomyelitis of lumbar spine ([facility]) Review of Systems Constitutional: Negative. HENT: Negative. Eyes: Negative. Respiratory: Negative. Cardiovascular: Negative. Musculoskeletal: Hip pain, pelvic pain Neurological: Negative. Psychiatric/Behavioral: Negative. Past Medical History: Past Medical History: Diagnosis Date Anxiety Cataract Chronic low back pain COPD (chronic obstructive pulmonary disease) ([facility]) Depression Diabetes mellitus ([facility]) GERD (gastroesophageal reflux disease) Glaucoma Hearing loss [...] Refill: 1 3. Osteomyelitis of lumbar spine ([facility]) IV Cefepime through PICC line and follow up with neurosurgery Tobacco: Counseling given: Not Answered Tobacco comments: Counseled by Dr. Olivares. I personally spent a total of 35 minutes on the day of the encounter. This includes qxat-sp-onme and zpu-jruv-vc-face time I provided on the day of [...] 1 week virtual or in person KERI ORSARIO NP 08/21/2024 [facility] Cosigned by Tracy Olivares MD at 08/21/2024 3:10 PM NIB FINISHER FINISHER FINISHER documented in this encounter Plan of Treatment Upcoming Encounters Date Type Department Care Team (Late st Contact Info) Description 10/03/2024 11:00 AM NIB FINISHER Office Visit [facility] Pulmonology Specialty Clinic - [address] [place] [address] Nathan Baig MD 3 [facility] [place] [address] [place] [address] 11/14/2024 10:20 AM NIB FINISHER Office Visit [facility] Multispecialty Care - [place] [address] [address] [place] [address] Tracy Olivares MD [address] [facility] [address] [place] [address] documented as of this encounter Results * XR HIP LT 2V (08/22/2024 1:59 PM NIB FINISHER) Anatomical Region Laterality Modality Hip Radiographic Zeynpe ging 08/22/2024 1:42 PM NIB FINISHER Narrative 08/27/2024 4:31 AM NIB FINISHER [facility] Family and Internal Medicine - [address] ??[address] INDICATION: Worsening hip and groin pain. COMPARISON: [...] Procedure Note Aurelio Kincaid MD - 08/27/2024 [facility] Internal [address] [address] INDICATION: Worsening hip and groin pain. COMPARISON: [...] XR PELVIS+RT HIP 2V (08/22/2024 1:59 PM NIB FINISHER) Anatomical Region Laterality Modality Hip, Pelvis Radiographic Zeynep ging 08/22/2024 1:42 PM NIB FINISHER Narrative 08/27/2024 4:31 AM NIB FINISHER [address] ??[address] INDICATION: Worsening hip and groin pain. COMPARISON: [...] Procedure Note Aurelio Kincaid MD - 08/27/2024 [facility] Internal [address] [address] INDICATION: Worsening hip and groin pain. COMPARISON: [...] Total Score: 2 09/14/19 24 11:30 AM NIB FINISHER documented as of this encounter Care Teams Business Law Instructor Relationship Specialty Start Date End Date Tracy Olivares MD [address] [facility] [address] [place] [address] PCP - General INTERNAL MEDICINE 01/02/21 Nathan Baig MD [address] [address] Consulting Physician Internal Medicine Pulmonary Disease 09/16/21 documented as of this encounter
--- OUTSIDE RECORDS SUMMARY | 2024-09-07 15:16 | XMS_ITS | Encounter Summary ---
Author Organization [facility] Address [address] [place] [address]. [place] [address] [place] [address] Care Team Providers Care Industrial Cook Name Role Phone Tracy Olivares MD Primary Care Provider [phone] Nathan Baig MD Unavailable [phone] Marisel Mancini RN Unavailable [phone] Reason for Visit * Reason Onset Date Comments Hospital Follow Up 07/17/2024 [facility]. Encounter Details Date Type Department Care Team (Latest Contact Info) Description 07/17/2024 Patient Outreach [facility] Medical Group Multispecialty Care - [address] [place] [address] Marisel Mancini, RN [address] [place] [address] Hospital Follow Up (Call to [facility]. ) Social History Tobacco Use Types [...] 07/17/2024 3:22 PM CST 07/17/24: CC called [facility] and spoke to Kacy, the nurse. Patient is doing very well. She transferred CC to the , to ask about length of planned stay. No one answered and CC left a VM. 07/19/24: CC called [facility] and left a VM for the orthopedic physician assistant, Shayy Ngo and asked about any discharge plans and asked for a return call if any plans are known. No return call. 07/20/24: CC called [facility] and patient remains there at this time. 07/23/24: Patient remains in [facility]. 07/25/24: CC called [facility] and spoke with Carlos. She said patient discharged home yesterday. She will fax CC a copy of her medlist for review right now. Medlist rec'd promptly. REL PATTERNMAKER documented in this encounter Plan of Treatment Upcoming Encounters Date Type Department Care Team (Late st Contact Info) Description 10/03/2024 11:00 AM APPAREL PATTERNMAKER Office Visit [facility] Medical [facility] Pulmonology Specialty Clinic - [address] [address] Nathan Baig MD [address] [place] [address] 11/14/2024 10:20 AM APPAREL PATTERNMAKER Office Visit [facility] Medical Group Multispecialty Care - [place] [address] [address] [place] [address] Tracy Olivares MD [address] [place] [address] documented as of this encounter Visit Diagnoses Not on filedocumented in this encounter Additional Health Concerns Assessment Noted Time PHQ-9 Depression Total Score: 2 09/14/19 24 11:30 AM APPAREL PATTERNMAKER documented as of this encounter Care Teams Industrial Cook Relationship Specialty Start Date End Date Trayc Olivares MD [address] [place], [place] [address] [address] PCP - General INTERNAL MEDICINE 01/02/21 Nathan Baig MD [address] [address] Consulting Physician Internal Medicine Pulmonary Disease 09/16/21 Marisel Mancini, RN [address] [place] [address] Manager Of Investigations (Ambulatory) REGISTERED NURSE 06/28/24 08/07/24 documented as of this encounter
--- OUTSIDE RECORDS SUMMARY | 2024-09-07 15:16 | XMS_ITS | Encounter Summary ---
Author Organization [facility] Address [address] [place] [address]. [place], [place] [address] [place] [address] Care Team Providers Care Manager Mobile Name Role Phone Tracy Olivares MD Primary Care Provider Nathan Baig MD Unavailable [phone] Reason for Visit * Reason Onset Date Comments Results 08/23/2024 Encounter Details Date Type Department Care Team (Late st Contact Info) Description 08/23/2024 Telephone [facility] Medical Group Multispecialty Care - [place] [address] [address] [place] [address] [place] [address] [place] [address] 157 [place] [address] Results Social History Tobacco Use [...] as soon as the results is read. NOOR OPERATOR * Jessica Lockhart - 08/23/2024 2:01 PM CST The patient called asking about the results for her x-rays done on August 22, 2024 at [facility] in [place], [place]. I explained that the results are not available. The patient requests to know them before the weekend if they become available. NOOR OPERATOR documented in this encounter Plan of Treatment Upcoming Encounters Date Type Department Care Team (Late st Contact Info) Description 10/03/2024 11:00 AM KOHINOOR OPERATOR Office Visit [facility] Medical Group Pulmonology Specialty Clinic - [address] [address] Nathan Baig MD [address] [place] [address] 11/14/2024 10:20 AM KOHINOOR OPERATOR Office Visit [facility] Multispecialty Care - [place] [address] [address] [address] [place] [address] Tracy Olivares MD [address] [place] [address] documented as of this encounter Visit Diagnoses Not on filedocumented in this encounter Additional Health Concerns Assessment Noted Time PHQ-9 Depression Total Score: 2 09/14/19 24 11:30 AM KOHINOOR OPERATOR documented as of this encounter Care Teams Manager Mobile Relationship Specialty Start Date End Date Tracy Olivares MD [address] [place] [address] PCP - General INTERNAL MEDICINE 01/02/21 Nathan Baig MD [address] [id number] Consulting Physician Internal Medicine Pulmonary Disease 09/16/21 documented as of this encounter
--- OUTSIDE RECORDS SUMMARY | 2024-09-07 15:16 | XMS_ITS | Encounter Summary ---
Author Organization [facility] Address [address] [place] [address]. [place] [address] [place] [address] Care Team Providers Care Flat Ironer Name Role Phone Tracy Olivares MD Primary Care Provider [phone] Nathan Baig MD Unavailable [phone] Marisel Mancini RN Unavailable [phone] Reason for Visit * Reason Onset Date Comments Hospital Follow Up 07/11/[address] [facility]. Encounter Details Date Type Department Care Team (Latest Contact Info) Description 07/11/2024 Patient Outreach [facility] Medical Group Multispecialty Care - [address] [place] [address] Marisel Mancini, RN [address] [place] [address] Hospital Follow Up (Call to [facility]. ) Social History Tobacco Use Types [...] 07/11/2024 8:29 AM CDT 07/11/24: CC called [facility]. Patient was admitted there on 07/10/24 for Rehab. CC lefta for Shayy Ngo, the congressional assistant and asked for a copy of patient's medlist to review. Medlist rec'd and updated. 1022am- CC called [facility] and asked to talk to the nurse, [...] st Contact Info) Description 10/03/2024 11:00 AM CONSTRUCTION EQUIPMENT OVERHAULER Office Visit [facility] Medical Group Pulmonology Specialty Clinic - [address] [address] Nathan Baig MD [address] [place] [address] 11/14/2024 10:20 AM CONSTRUCTION EQUIPMENT OVERHAULER Office Visit [facility] Medical Group Multispecialty Care - [place] [address] [address] [place] [address] Tracy Olivares MD [address] [place] [address] documented as of this encounter Visit Diagnoses Not on filedocumented in this encounter Additional Health Concerns Assessment Noted Time PHQ-9 Depression Total Score: 2 01/03/20 24 11:30 AM CONSTRUCTION EQUIPMENT OVERHAULER documented as of this encounter Care Teams Flat Ironer Relationship Specialty Start Date End Date Tracy Olivares MD [address] [facility] 157 [place] [address] PCP - General INTERNAL MEDICINE 01/02/21 Nathan Baig MD [address] [id number] Consulting Physician Internal Medicine Pulmonary Disease 09/16/21 Marisel Mancini, RN [address] [place] [address] Child Neurologist (Ambulatory) REGISTERED NURSE 06/28/24 08/07/24 documented as of this encounter
--- OUTSIDE RECORDS SUMMARY | 2024-09-07 15:16 | XMS_ITS | Encounter Summary ---
Author Organization [facility] Address [address] [place] [address]. [place], [place] [address] [place] [address] Care Team Providers Care Wrapper Layer And Examiner Soft Work Name Role Phone Tracy Olivares MD Primary Care Provider [phone] Nathan Baig MD Unavailable [phone] Reason for Visit * Reason Comments [...] st Contact Info) Description 10/03/2024 11:00 AM JOB ORDER CLERK Office Visit [facility] Medical Group Pulmonology Specialty Clinic - [address] [place] [address] Nathan Baig MD [address] [place] [address] 11/14/2024 10:20 AM JOB ORDER CLERK Office Visit [facility] Multispecialty Care - [place] [address] [address] [place] [address] Tracy Olivares MD [facility] [address] [address] documented as of this encounter Procedures Procedure Name Priority Date/Time Associated Diagnosis Comments OUTSIDE LAB (SCAN ORDER) 08/08/2024 OUTSIDE LAB (SCAN ORDER) 08/08/2024 documented in this encounter Results * OUTSIDE LAB (SCAN ORDER) (08/08/2024) 08/08/2024 [facility] Scanned SCANNING Final Resu lt * OUTSIDE LAB (SCAN ORDER) (08/08/2024) 08/08/2024 [facility] Scanned SCANNING Final Resu lt documented in this encounter Visit Diagnoses Not on filedocumented in this encounter Additional Health Concerns Assessment Noted Time PHQ-9 Depression Total Score: 2 09/14/19 24 11:30 AM JOB ORDER CLERK documented as of this encounter Care Teams Wrapper Layer And Examiner Soft Work Relationship Specialty Start Date End Date Tracy Olivares MD [address] [place] [address] PCP - General INTERNAL MEDICINE 01/02/21 Nathan Baig MD [address] [address] Consulting Physician Internal Medicine Pulmonary Disease 09/16/21 documented as of this encounter
--- OUTSIDE RECORDS SUMMARY | 2024-09-07 15:16 | XMS_ITS | Encounter Summary ---
Author Organization [facility] Address [address] [place] [address]. [place] [id number] Care Team Providers Care Landscape Contractor Name Role Phone Tracy Olivares MD Primary Care Provider [phone] Nathan Baig MD Unavailable [phone] Reason for Referral * Physical Medicine (Urgent) - Authorized Specialty Diagnoses / Procedures Referred By Heidi iverson Referred To Contact PHYSICAL THERAPY / [facility] Physical Therapy Diagnoses Pelvic floor dysfunction in female Procedures OFFICE/OUTPATIENT NEW LOW MDM 30-44 MINUTES OFFICE/OUTPT VISIT,NEW,LEVL IV OFFICE/OUTPT VISIT,NEW,LEVL V OFFICE/OUTPT VISIT,EST,LEVL III OFFICE/OUTPT VISIT,EST,LEVL IV OFFICE/OUTPT VISIT,[place] [address] [place] [address] Phone: tel: fax: [facility] [address] [place] [address] Phone: tel: fax: Referral ID Status Reason Start Date Expiration Date Visits Requested Visits Authorized [id number] Authorized Physical Therapy 08/16/2024 09/15/2025 12 12 SHAKEOUT OPERATOR Reason for Visit * Reason Onset Date Comments Orders 08/16/2024 Encounter Details Date Type Department Care Team ([facility] st Contact Info) Description 08/16/2024 Telephone [facility] Medical Group Multispecialty Care - [place] [address] [employer] [address] [place] [address] Tracy Olivares MD [address] [facility] [address] [place] [address] Orders Social History Tobacco Use Types Packs/Day [...] to Babita and got the fax number [phone] and faxed over quest order to her for UA and urine CX SHAKEOUT OPERATOR * Jessica Lockhart - 08/16/2024 4:19 PM CST Babita Hughes RN for [facility] is calling to advise that [...] from her primary office that she needs. SHAKEOUT OPERATOR SHAKEOUT OPERATOR documented in this encounter Plan of Treatment Upcoming Encounters Date Type Department Care Team (Late Contact Info) Description 10/03/2024 11:00 AM CAR SHAKEOUT OPERATOR Office Visit [facility] Pulmonology Specialty Clinic - [address] [address] Nathan Baig MD [address] [address] 11/14/2024 10:20 AM CAR SHAKEOUT OPERATOR Office Visit [facility] Multispecialty Care - [place] [address] [address] [place] [address] Tracy Olivares MD [facility] [address] [address] Scheduled Orders Name Type Priority Associated Diagnoses [...] Total Score: 2 09/14/19 24 11:30 AM CAR SHAKEOUT OPERATOR documented as of this encounter Care Teams Landscape Contractor Relationship Specialty Start Date End Date Tracy Olivares MD [address] [place] [address] PCP - General INTERNAL MEDICINE 01/02/21 Nathan Baig MD 3 [facility] [address] [place] [address] Consulting Physician Internal Medicine Pulmonary Disease 09/16/21 documented as of this encounter
--- OUTSIDE RECORDS SUMMARY | 2024-09-07 15:16 | XMS_ITS | Encounter Summary ---
Author Organization [facility] Address [address] [place] [address]. [place], [place] [address] [place] [address] Care Team Providers Care Ultrasound Specialist Name Role Phone Tracy Olivares MD Primary Care Provider [phone] Nathan Baig MD Unavailable [phone] Reason for Visit * Reason Comments [...] st Contact Info) Description 10/03/2024 11:00 AM HOT IRON WORKER Office Visit [facility] Medical Group Pulmonology Specialty Clinic - [address] [place] [address] Nathan Baig MD [address] [place] [address] 11/14/2024 10:20 AM HOT IRON WORKER Office Visit [facility] Multispecialty Care - [place] [address] [address] [place] [address] Tracy Olivares MD [address] [address] documented as of this encounter Procedures Procedure [...] Score: 2 09/14/19 24 11:30 AM HOT IRON WORKER documented as of this encounter Care Teams Ultrasound Specialist Relationship Specialty Start Date End Date Tracy Olivares MD [facility] [address] [address] PCP - General INTERNAL MEDICINE 01/02/21 Nathan Baig MD [address] [address] Consulting Physician Internal Medicine Pulmonary Disease 09/16/21 documented as of this encounter
--- OUTSIDE RECORDS SUMMARY | 2024-09-07 15:16 | XMS_ITS | Encounter Summary ---
Author Organization [facility] Address [address] [place] [address]. [place], [place] [address] [place] [address] Care Team Providers Care Powerhouse Operator Name Role Phone Tracy Olivares MD Primary Care Provider [phone] Nathan Baig MD Unavailable [phone] Encounter Details Date Type Department Care [...] Contact Info) Description 10/03/2024 11:00 AM GENERAL WAREHOUSE ASSOCIATE Office Visit [facility] Medical Group Pulmonology Specialty Clinic - [place] [address] [address] Nathan Baig MD [address] [place] [address] 11/14/2024 10:20 AM GENERAL WAREHOUSE ASSOCIATE Office Visit [facility] Medical Group Multispecialty Care - [place] [address] [address] [place] [address] Tracy Olivares MD [address] [place] [address] documented as of this encounter Visit Diagnoses Not on filedocumented in this encounter Additional Health Concerns Assessment Noted Time PHQ-9 Depression Total Score: 2 09/14/19 24 11:30 AM GENERAL WAREHOUSE ASSOCIATE documented as of this encounter Care Teams Powerhouse Operator Relationship Specialty Start Date End Date Tracy Olivares MD [address] [place] [address] PCP - General INTERNAL MEDICINE 01/02/21 Nathan Baig MD [address] [address] Consulting Physician Internal Medicine Pulmonary Disease 09/16/21 documented as of this encounter
--- OUTSIDE RECORDS SUMMARY | 2024-09-07 15:16 | XMS_ITS | Encounter Summary ---
Author Organization [facility] Address [address] [place] [address]. [place], [place] [address] [place] [address] Care Team Providers Care Refinery Operator Light Ends Recovery Name Role Phone Tracy Olivares MD Primary Care Provider [phone] Nathan Baig MD Unavailable [phone] Marisel Mancini RN Unavailable [phone] Reason for Referral * Home Health Care (Urgent) - Pending Review Specialty Diagnoses / Procedures Referred By Contac t Referred To Contact Home Health Services Diagnoses Laceration of right dorsal artery of foot Discitis of lumbar region Procedures OFFICE/OUTPATIENT NEW LOW MDM 30-44 MINUTES OFFICE/OUTPT VISIT,NEW,LEVL IV OFFICE/OUTPT VISIT,NEW,LEVL V OFFICE/OUTPT VISIT,EST,LEVL III OFFICE/OUTPT VISIT,EST,LEVL IV OFFICE/OUTPT VISIT,EST,LEVL V Tracy Olivares MD [address] [place] [address] Phone: tel: fax: Referral ID Status Reason Start Date Expiration Date Visits Requested Visits Authorized [id number] Pending Review Home Health Services 07/23/2025 1 1 COLLECTOR Reason for Visit * Reason Onset Date Comments Referral 07/23/2024 Encounter Details Date Type Department Care Team (Late st Contact Info) Description 07/23/2024 Telephone [facility] Medical Group Multispecialty Care - [place] [address] [address] [place] [address] Tracy Olivares MD [address] [facility] [address] [place] [address] Referral Social History Tobacco Use Types Packs/Day [...] informed of the message and voiced understanding COLLECTOR * Lester Huffman - 07/23/2024 4:12 PM CST Pt is being discharged tomorrow, and is wanting a call soon as IV is insurance approved. Pt thinks until IV is approved she thinks they will not approve to discharge, pls call pt. COLLECTOR * Najma Moreland MA - 07/23/2024 3:59 PM CST After speaking with dr. Olivares she states she would like home health to complete antibiotics. I haveplaced an urgent referral and have faxed this to their office. Messaged mg prior auth to help with insurance authorization. COLLECTOR * Jessica Lockhart - 07/23/2024 2:25 PM CST Yara from [facility] is requesting a Home Infusion Essence Referral for this patient. Yara requested that the CPT Code: S95.01 be used. Antibiotic is: Cefepime This was originally ordered by Dr. Indio Chaparro at [facility]. Please fax the referral to: [phone]. Thank you. COLLECTOR documented in this encounter Plan of Treatment Upcoming Encounters Date Type Department Care Team (Late st Contact Info) Description 10/03/2024 11:00 AM DEBT COLLECTOR Office Visit [facility] Medical [facility] Pulmonology Specialty Clinic - [address] [address] Nathan Baig MD 3 [facility] [address] [place] [address] 11/14/2024 10:20 AM DEBT COLLECTOR Office Visit [facility] Multispecialty Care - [place] [address] [address] [place] [address] Tracy Olivares MD [address] [place] [address] Scheduled Referrals Name Type Priority Associated Diagnoses [...] Total Score: 2 09/14/19 24 11:30 AM DEBT COLLECTOR documented as of this encounter Care Teams Refinery Operator Light Ends Recovery Relationship Specialty Start Date End Date Tracy Olivares MD [address] [place] [address] PCP - General INTERNAL MEDICINE 01/02/21 Nathan Baig MD 3 [facility] [address] [address] Consulting Physician Internal Medicine Pulmonary Disease 09/16/21 Marisel Mancini, RN [address] [place] [address] Supervisor Paste Mixing (Ambulatory) REGISTERED NURSE 06/28/24 08/07/24 documented as of this encounter
--- OUTSIDE RECORDS SUMMARY | 2024-09-07 15:16 | XMS_ITS | Encounter Summary ---
Author Organization [facility] Address [address] [place] [address]. [place], [place] [address] [place] [address] Care Team Providers Care Sizing Sponger Name Role Phone Tracy Olivares MD Primary Care Provider [phone] Nathan Baig MD Unavailable [phone] Marisel Mancini RN Unavailable [phone] Encounter Details Date Type Department Care [...] Contact Info) Description 10/03/2024 11:00 AM SUPERVISOR WORD PROCESSING Office Visit [facility] Medical Group Pulmonology Specialty Clinic - [address] [place] [address] Nathan Baig MD [address] [place] [address] 11/14/2024 10:20 AM SUPERVISOR WORD PROCESSING Office Visit [facility] Medical Group Multispecialty Care - [place] [address] [address] [place] [address] Tracy Olivares MD [address] [address] documented as of this encounter Visit Diagnoses Not on filedocumented in this encounter Additional Health Concerns Assessment Noted Time PHQ-9 Depression Total Score: 2 09/14/19 24 11:30 AM SUPERVISOR WORD PROCESSING documented as of this encounter Care Teams Sizing Sponger Relationship Specialty Start Date End Date Tracy Olivares MD [address] [place] [address] PCP - General INTERNAL MEDICINE 01/02/21 Nathan Baig MD [address] [phone] Consulting Physician Internal Medicine Pulmonary Disease 09/16/21 Marisel Mancini, RN [address] [place] [address] Assembler Engine (Ambulatory) REGISTERED NURSE 06/28/24 08/07/24 documented as of this encounter
--- OUTSIDE RECORDS SUMMARY | 2024-09-07 15:16 | XMS_ITS | Encounter Summary ---
Author Organization [facility] Address [address] [place] [address]. [place], [place] [address] [place] [address] Care Team Providers Care Bargeman Name Role Phone Tracy Olivares MD Primary Care Provider [phone] Nathan Baig MD Unavailable [phone] Marisel Mancini RN Unavailable [phone] Encounter Details Date Type Department Care [...] st Contact Info) Description 10/03/2024 11:00 AM INDUSTRY ANALYST Office Visit [facility] Medical Group Pulmonology Specialty Clinic - [address] [place] [address] Nathan Baig MD [address] [place] [address] 11/14/2024 10:20 AM INDUSTRY ANALYST Office Visit [facility] Medical Group Multispecialty Care - [place] [address] [address] [place] [address] Tracy Olivares MD [address] [address] documented as of this encounter Visit Diagnoses Not on filedocumented in this encounter Additional Health Concerns Assessment Noted Time PHQ-9 Depression Total Score: 2 09/14/19 24 11:30 AM INDUSTRY ANALYST documented as of this encounter Care Teams Bargeman Relationship Specialty Start Date End Date Tracy Olivares MD [address] [place] [address] PCP - General INTERNAL MEDICINE 01/02/21 Nathan Baig MD [address] [phone] Consulting Physician Internal Medicine Pulmonary Disease 09/16/21 Marisel Mancini, RN [address] [place] [address] Production Team Member (Ambulatory) REGISTERED NURSE 06/28/24 08/07/24 documented as of this encounter
--- OUTSIDE RECORDS SUMMARY | 2024-09-07 15:16 | XMS_ITS | Encounter Summary ---
Author Organization [facility] Address [address] [place] [address]. [place], [place] [address] [place] [address] Care Team Providers Care Legal Word Processor Name Role Phone Tracy Olivares MD Primary Care Provider [phone] Nathan Baig MD Unavailable [phone] Marisel Mancini RN Unavailable [phone] Encounter Details Date Type Department Care [...] st Contact Info) Description 10/03/2024 11:00 AM SOLAR SYSTEMS DESIGNER Office Visit [facility] Pul[facility]ology [facility]ty [facility] - [address] [place] [address] Nathan Baig MD [address] [place] [address] 11/14/2024 10:20 AM SOLAR SYSTEMS DESIGNER Office Visit [facility] Medical Group Multispecialty Care - [place] [address] [address] [place] [address] Tracy Olivares MD [address] [address] documented as of this encounter Visit Diagnoses Not on filedocumented in this encounter Additional Health Concerns Assessment Noted Time PHQ-9 Depression Total Score: 2 09/14/19 24 11:30 AM SOLAR SYSTEMS DESIGNER documented as of this encounter Care Teams Legal Word Processor Relationship Specialty Start Date End Date Tracy Olivares MD [address] [place] [address] PCP - General INTERNAL MEDICINE 01/02/21 Ntahan Baig MD [address] [phone] Consulting Physician Internal Medicine Pulmonary Disease 09/16/21 Marisel Mancini, RN 3051 [place] [address] Launch Engineer (Ambulatory) REGISTERED NURSE 06/28/24 08/07/24 documented as of this encounter
--- OUTSIDE RECORDS SUMMARY | 2024-09-07 15:16 | XMS_ITS | Encounter Summary ---
Author Organization [facility] Address [address] [place] [address]. [place], [place] [address] [place] [address] Care Team Providers Care Mental Health Assistant Name Role Phone Tracy Olivares MD Primary Care Provider [phone] Nathan Baig MD Unavailable [phone] Marisel Mancini RN Unavailable [phone] Encounter Details Date Type Department Care [...] st Contact Info) Description 10/03/2024 11:00 AM INKER MACHINE Office Visit [facility] Medical [facility] Pulmonology Specialty Clinic - [address] [place] [address] Nathan Baig MD [address] [place] [address] 11/14/2024 10:20 AM INKER MACHINE Office Visit [facility] Medical Group Multispecialty Care - [place] [address] [address] [place] [address] Tracy Olivares MD [address] [address] documented as of this encounter Visit Diagnoses Not on filedocumented in this encounter Additional Health Concerns Assessment Noted Time PHQ-9 Depression Total Score: 2 09/14/19 24 11:30 AM INKER MACHINE documented as of this encounter Care Teams Mental Health Assistant Relationship Specialty Start Date End Date Tracy Olivares MD [address] [place] [address] PCP - General INTERNAL MEDICINE 01/02/21 Nathan Baig MD [address] [phone] Consulting Physician Internal Medicine Pulmonary Disease 09/16/21 Marisel Mancini, RN 305[address] [place] [address] Intramural Director (Ambulatory) REGISTERED NURSE 06/28/24 08/07/24 documented as of this encounter
--- OUTSIDE RECORDS SUMMARY | 2024-09-07 15:17 | XMS_ITS | Encounter Summary ---
Author Organization [facility] Address [address] [place] [address]. [place], [place] [address] [place] [address] Care Team Providers Care Building Construction Engineer Name Role Phone Tracy Olivares MD Primary Care Provider [phone] Nathan Baig MD Unavailable [phone] Reason for Visit * Consultation (Routine) - Closed Specialty Diagnoses / Procedures Referred By Contoziel t Referred To Contact NUTRITION / [facility] Diabetes and Nutrition Diagnoses Class 3 severe obesity due to excess calories without serious comorbidity with body mass index (BMI) of 50.0 to 59.9 in adult (CMS/HCC HHS/[facility]) Procedures OFFICE/OUTPATIENT NEW LOW MDM 30-44 MINUTES OFFICE/OUTPT VISIT,NEW,LEVL IV OFFICE/OUTPT VISIT,NEW,LEVL V OFFICE/OUTPT VISIT,EST,LEVL III OFFICE/OUTPT VISIT,EST,LEVL IV OFFICE/OUTPT VISIT,EST,LEVL V Tracy Olivares MD [address] [facility] [address] [place] [address] Phone: tel: fax: [facility] [address] [place] [address] Phone: tel: fax: Referral ID Status Reason Start Date Expiration Date Visits Re quested Visits Authorized [id number] Closed 06/08/2023 07/08/2024 99 99 Encounter Details Date Type Department Care Team (Latest Contact Info) Description 07/18/2023 8:34 AM INTERMEDIATE PROJECT MANAGER - 07/18/2023 11:59 PM INTERMEDIATE PROJECT MANAGER Hospital Encounter [facility] [address] [place] [address] Tracy Olivares MD [address] [facility] [address] [place] [address] Alexandria Lu, MIGUEL A Discharge Disposition: Home [...] bedtime 90 tablet 1 3 03/20/20 24 diphenhydrAMINE-zin c (BENADRYL EXTRA STRENGTH) 2-0.1 % Cream creamIndications:Pr uritus Use twice daily on skin to help with itching. 28 g 1 1 07/11/20 24 Fluticasone-Umeclid in-Vilant (TRELEGY ELLIPTA) 100-62.5-25 MCG/ACT AEROSOL POWDER, BREATH ACTIVATEDIndication s:Pulmonary emphysema, unspecified emphysema type ([facility]) Inhale 1 puff into the lungs daily. 180 each 3 3 03/20/20 24 meclizine 12.5 MG tabletIndications:V ertigo Take 1 tablet (12.5 mg total) by mouth nightly as needed. 20 tablet 1 07/11/20 24 AZELASTINE 137 MCG/SPRAY nasal sprayIndications:Se asonal allergic rhinitis due to pollen Please specify directions, refills and quantity 30 mL 2 07/11/20 24 celecoxib (CELEBREX) 200 MG capsuleIndications: Breast pain, left Take 1 capsule (200 mg total) by mouth daily. 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 16 g 5 2 07/11/20 24 gabapentin (NEURONTIN) 100 MG capsuleIndications: Idiopathic peripheral neuropathy Take 200 mg in the morning, 200 mg in the afternoon and 300 mg at bedtime 180 capsule 1 3 12/16/19 24 JANUVIA 100 MG tablet 3 07/29/20 23 losartan-hydroCHLOR Othiazide (HYZAAR) 100-12.5 MG tabletIndications:E ssential hypertension Take 1 tablet by mouth daily. 90 tablet 3 3 02/08/20 24 meloxicam (MOBIC) 15 MG tablet Take [...] pain COPD (chronic obstructive pulmonary disease) (HHS/HCC) ([facility]/HCC) Depression Diabetes mellitus (HHS/HCC) ([facility]/HCC) GERD (gastroesophageal reflux disease) Glaucoma Hearing [...] diagnosis of diabetes in children. According to [place] [employer] (ADA) guidelines, hemoglobin A1c <7.0% [...] LDL-C. Buddy ANAND et al. PORTER. 2013;310(19): 4062-7816 (http://education.EvntLive.Tubular Labs/faq/KGX818) HDL Date Value Ref Range Status 01/07/2023 [...] questions. ALEXANDRIA LU RD 07/18/23, 10:17 AM RMEDIATE PROJECT MANAGER documented in this encounter Plan of Treatment Upcoming Encounters Date Type Department Care Team (Late st Contact Info) Description 10/03/2024 11:00 AM INTERMEDIATE PROJECT MANAGER Office Visit [facility] Medical [facility] Pulmonology Specialty Clinic - [address] [address] Nathan Baig MD [address] [place] [address] 11/14/2024 10:20 AM INTERMEDIATE PROJECT MANAGER Office Visit [facility] Medical Group Multispecialty Care - [place] [address] [address] [place] [address] Tracy Olivares MD [address] [place] [address] documented as of this encounter Visit Diagnoses Not on filedocumented in this encounter Additional Health Concerns Assessment Noted Time PHQ-9 Depression Total Score: 16 023 3:44 PM CDT documented as of this encounter Care Teams Building Construction Engineer Relationship Specialty Start Date End Date Tracy Olivares MD [address] [facility] [address] [place] [address] PCP - General INTERNAL MEDICINE 01/02/21 Nathan Baig MD [address] [address] Consulting Physician Internal Medicine Pulmonary Disease 09/16/21 documented as of this encounter
--- OUTSIDE RECORDS SUMMARY | 2024-09-07 15:17 | XMS_ITS | Encounter Summary ---
Author Organization [facility] Address [address] [place] [address]. [place], [place] [address] [place] [address] Care Team Providers Care Director Imaging Name Role Phone Tracy Olivares MD Primary Care Provider [phone] Nathan Baig MD Unavailable [phone] Encounter Details Date Type Department Care [...] st Contact Info) Description 10/03/2024 11:00 AM CREATIVE COORDINATOR Office Visit [facility] Medical Group Pulmonology Specialty Clinic - [address] [place] [address] Nathan Baig MD [address] [place] [address] 11/14/2024 10:20 AM CREATIVE COORDINATOR Office Visit [facility] Medical Group Multispecialty Care - [address] [place] [address] Tracy Olivares MD [address] [place] [address] documented as of this encounter Visit Diagnoses Not on filedocumented in this encounter Additional Health Concerns Assessment Noted Time PHQ-9 Depression Total Score: 16 023 3:44 PM CDT documented as of this encounter Care Teams Director Imaging Relationship Specialty Start Date End Date Tracy Olivares MD [address] [place] [address] PCP - General INTERNAL MEDICINE 01/02/21 Nathan Baig MD [address] [address] Consulting Physician Internal Medicine Pulmonary Disease 09/16/21 documented as of this encounter
--- OUTSIDE RECORDS SUMMARY | 2024-09-07 15:17 | XMS_ITS | Encounter Summary ---
Author Organization [facility] Address [address] [place] [address]. [place] [id number] [place] [address] Care Team Providers Care Electric Serviceman Name Role Phone Tracy Olivares MD Primary Care Provider [phone] Nathan Baig MD Unavailable [phone] Reason for Visit * Reason Onset Date Comments Pre-visit Gap Closure 04/27/2024 Encounter Details Date Type Department Care Team (Latest Contact Info) Description 04/27/2024 Patient Outreach [facility] Medical Group Multispecialty Care - [place] [address] [address] [place] [address] Tracy Olivares MD [address] [place] [address] [place], [place] [phone] Pre-visit Gap Closure Social History Tobacco Use [...] Contact Info) Description 10/03/2024 11:00 AM METAL DIE FINISHER Office Visit [facility] Medical [facility] Pulmonology Specialty Clinic - [address] [address] Nathan Baig MD [address] [address] 11/14/2024 10:20 AM METAL DIE FINISHER Office Visit [facility] Multispecialty Care - [place] [address] [address] [place] [address] Tracy Olivares MD [address] [place] [address] documented as of this encounter Visit Diagnoses Not on filedocumented in this encounter Additional Health Concerns Assessment Noted Time PHQ-9 Depression Total Score: 2 09/14/19 24 11:30 AM METAL DIE FINISHER documented as of this encounter Care Teams Electric Serviceman Relationship Specialty Start Date End Date Tracy Olivares MD [address] [place] [address] PCP - General INTERNAL MEDICINE 01/02/21 Nathan Baig MD 3 [facility] [address] [place] [address] Consulting Physician Internal Medicine Pulmonary Disease 09/16/21 documented as of this encounter
--- OUTSIDE RECORDS SUMMARY | 2024-09-07 15:17 | XMS_ITS | Encounter Summary ---
Author Organization [facility] Address [address] [place] [address]. [place], [place] [address] [place] [address] Care Team Providers Care Ore Miner Blasting Name Role Phone Tracy Olivares MD Primary Care Provider [phone] Nathan Baig MD Unavailable [phone] Encounter Details Date Type Department Care [...] st Contact Info) Description 10/03/2024 11:00 AM CAFETERIA ASSISTANT Office Visit [facility] Medical Group Pulmonology Specialty Clinic - [place] [address] [address] Nathan Baig MD [address] [place] [address] 11/14/2024 10:20 AM CAFETERIA ASSISTANT Office Visit [facility] Medical Group Multispecialty Care - [place] [address] [address] [place] [address] Tracy Olivares MD [address] [place] [address] documented as of this encounter Visit Diagnoses Not on filedocumented in this encounter Additional Health Concerns Assessment Noted Time PHQ-9 Depression Total Score: 2 09/14/19 24 11:30 AM CAFETERIA ASSISTANT documented as of this encounter Care Teams Ore Miner Blasting Relationship Specialty Start Date End Date Tracy Olivares MD [address] [place] [address] PCP - General INTERNAL MEDICINE 01/02/21 Nathan Baig MD [address] [address] Consulting Physician Internal Medicine Pulmonary Disease 09/16/21 documented as of this encounter
--- OUTSIDE RECORDS SUMMARY | 2024-09-07 15:17 | XMS_ITS | Encounter Summary ---
Author Organization [facility] Address [address] [place] [address]. [place], [place] [address] [place] [address] Care Team Providers Care Felt Strip Finisher Name Role Phone Tracy Olivares MD Primary Care Provider [phone] Nathan Baig MD Unavailable [phone] Encounter Details Date Type Department Care [...] Contact Info) Description 10/03/2024 11:00 AM ACID POLYMERIZATION OPERATOR Office Visit [facility] Medical Group Pulmonology Specialty Clinic - [place] [address] [address] [facility] [address] [place] [address] Nathan Baig MD [address] [place] [address] 11/14/2024 10:20 AM ACID POLYMERIZATION OPERATOR Office Visit [facility] Medical Group Multispecialty Care - [place] [address] [address] [facility] [address] [place] [address] Tracy Olivares MD 1188 [facility] 157 [place] [address] documented as of this encounter Visit Diagnoses Not on filedocumented in this encounter Additional Health Concerns Assessment Noted Time PHQ-9 Depression Total Score: 2 09/14/19 24 11:30 AM ACID POLYMERIZATION OPERATOR documented as of this encounter Care Teams Felt Strip Finisher Relationship Specialty Start Date End Date Tracy Olivares MD 1188 [facility] 157 [place] [address] PCP - General INTERNAL MEDICINE 01/02/21 Nathan Baig MD [address] [address] Consulting Physician Internal Medicine Pulmonary Disease 09/16/21 documented as of this encounter
--- OUTSIDE RECORDS SUMMARY | 2024-09-07 15:17 | XMS_ITS | Encounter Summary ---
Author Organization [facility] Address [address] [place] [address]. [place], [place] [address] [place] [address] Care Team Providers Care Emt Dispatcher Name Role Phone Tracy Olivares MD Primary Care Provider [phone] Nathan Baig MD Unavailable [phone] Encounter Details Date Type Department Care [...] st Contact Info) Description 10/03/2024 11:00 AM TECHNICAL DEVELOPER Office Visit [facility] Medical Group Pulmonology Specialty Clinic - [place] [address] [address] [facility] [address] [place] [address] Nathan Baig MD [address] [place] [address] 11/14/2024 10:20 AM TECHNICAL DEVELOPER Office Visit [facility] Medical Group Multispecialty Care - [place] [address] [address] [place] [address] Tracy Olivares MD [address] [address] documented as of this encounter Visit Diagnoses Not on filedocumented in this encounter Additional Health Concerns Assessment Noted Time PHQ-9 Depression Total Score: 2 09/14/19 24 11:30 AM TECHNICAL DEVELOPER documented as of this encounter Care Teams Emt Dispatcher Relationship Specialty Start Date End Date Tracy Olivares MD [facility] [address] PCP - General INTERNAL MEDICINE 01/02/21 Nathan Baig MD [address] [address] Consulting Physician Internal Medicine Pulmonary Disease 09/16/21 documented as of this encounter
--- OUTSIDE RECORDS SUMMARY | 2024-09-07 15:17 | XMS_ITS | Encounter Summary ---
Author Organization [facility] Address [address] [place] [address]. [place], [place] [address] [place] [address] Care Team Providers Care Clinic Md Associate Name Role Phone Tracy Olivares MD Primary Care Provider [phone] Nathan Baig MD Unavailable [phone] Encounter Details Date Type Department Care [...] st Contact Info) Description 10/03/2024 11:00 AM MIXER FOAM RUBBER Office Visit [facility] Medical Group Pulmonology Specialty Clinic - [place] [address] [address] [facility] [address] [place] [address] Nathan Baig MD [address] [place] [address] 11/14/2024 10:20 AM MIXER FOAM RUBBER Office Visit [facility] Medical Group Multispecialty Care - [place] [address] [address] [place] [address] Tracy Olivares MD [address] [address] documented as of this encounter Visit Diagnoses Not on filedocumented in this encounter Additional Health Concerns Assessment Noted Time PHQ-9 Depression Total Score: 2 09/14/19 24 11:30 AM MIXER FOAM RUBBER documented as of this encounter Care Teams Clinic Md Associate Relationship Specialty Start Date End Date Tracy Olivares MD [facility] [address] PCP - General INTERNAL MEDICINE 01/02/21 Nathan Baig MD [address] [address] Consulting Physician Internal Medicine Pulmonary Disease 09/16/21 documented as of this encounter
--- OUTSIDE RECORDS SUMMARY | 2024-09-07 15:17 | XMS_ITS | Encounter Summary ---
Author Organization [facility] Address [address] [place] [address]. [place], [place] [address] [place] [address] Care Team Providers Care Tire Adjuster Name Role Phone Tracy Olivares MD Primary Care Provider [phone] Nathan Baig MD Unavailable [phone] Reason for Visit * Reason Onset Date Comments Results 02/03/2024 Encounter Details Date Type Department Care Team (Late st Contact Info) Description 02/03/2024 Telephone [facility] Medical Group Multispecialty Care [place] [address] [place] [address] [address] [place] [address] [place] [address] [place] [address] 157 [place] [address] Results Social History Tobacco Use [...] as directed. Tracy Olivares MD Internal Medicine [facility]. ----- Message ----- From: Lester Huffman Sent: 02/03/2024 2:50 PM CDT To: Tracy Olivares MD * Lester Huffman - 02/03/2024 2:50 PM CDT Pt would like Dr. Olivares to call with xray results. documented in this encounter Plan of Treatment Upcoming Encounters Date Type Department Care Team (Late st Contact Info) Description 10/03/2024 11:00 AM MEDICAL EXAMINER Office Visit [facility] Pulmonology Specialty Clinic - [address] [address] Nathan Baig MD [address] [place] [address] 11/14/2024 10:20 AM MEDICAL EXAMINER Office Visit [facility] Multispecialty Care - [place] [address] [address] [place] [address] Tracy Olivares MD [address] [place] [address] documented as of this encounter Visit Diagnoses Not on filedocumented in this encounter Additional Health Concerns Assessment Noted Time PHQ-9 Depression Total Score: 2 09/14/19 11:30 AM MEDICAL EXAMINER documented as of this encounter Care Teams Tire Adjuster Relationship Specialty Start Date End Date Tracy Olivares MD [address] [place] [address] PCP - General INTERNAL MEDICINE 01/02/21 Nathan Baig MD [address] [address] Consulting Physician Internal Medicine Pulmonary Disease 09/16/21 documented as of this encounter
--- OUTSIDE RECORDS SUMMARY | 2024-09-07 15:17 | XMS_ITS | Encounter Summary ---
Author Organization [facility] Address [address] [place] [address]. [place], [place] [address] [place] [address] Care Team Providers Care Eyelet Operator Name Role Phone Tracy Olivares MD Primary Care Provider [phone] Nathan Baig MD Unavailable [phone] Encounter Details Date Type Department Care [...] st Contact Info) Description 10/03/2024 11:00 AM COAT ROOM ATTENDANT Office Visit [facility] Medical Group Pulmonology Specialty Clinic - [place] [address] [address] [facility] [address] [place] [address] Nathan Baig MD [address] [place] [address] 11/14/2024 10:20 AM COAT ROOM ATTENDANT Office Visit [facility] Medical Group Multispecialty Care - [place] [address] [address] [facility] [address] [place] [address] Tracy Olivares MD 1188 [facility] 157 [place] [address] documented as of this encounter Visit Diagnoses Not on filedocumented in this encounter Additional Health Concerns Assessment Noted Time PHQ-9 Depression Total Score: 2 09/14/19 24 11:30 AM COAT ROOM ATTENDANT documented as of this encounter Care Teams Eyelet Operator Relationship Specialty Start Date End Date Tracy Olivares MD 1188 [facility] 157 [place] [address] PCP - General INTERNAL MEDICINE 01/02/21 Nathan Baig MD [address] [address] Consulting Physician Internal Medicine Pulmonary Disease 09/16/21 documented as of this encounter
--- OUTSIDE RECORDS SUMMARY | 2024-09-07 15:17 | XMS_ITS | Encounter Summary ---
Author Organization [facility] - [facility] Address [address] [place] [address]. [place], [place] [address] [place] [address] Care Team Providers Care Dry Kiln Burner Name Role Phone Tracy Olivares MD Primary Care Provider [phone] Nathan Baig MD Unavailable [phone] Reason for Referral * Imaging (Routine) - Closed Specialty Diagnoses / Procedures Referred By Contac t Referred To Contact RADIOLOGY Diagnoses Chronic bilateral low back pain with bilateral sciatica Procedures MRI LUMB SPINE WO CON Alesia Rosario, GLORIA [address] [facility] [address] [place] [address] Phone: tel: fax: [facility] [address] [place] [address] [address] [place] [address] Phone: tel: fax: Referral ID Status Reason Start Date Expiration Date Visits Re quested Visits Authorized [id number] Closed 02/24/2024 03/25/2025 1 1 Encounter Details Date Type Department Care Team (Late st Contact Info) Description 02/24/2024 Orders Only [facility] Medical Group Multispecialty Care - [place] [address] [place] [address] Alesia Rosario, CREW PERSON [address] [place] [address] Social History Tobacco Use Types [...] Contact Info) Description 10/03/2024 11:00 AM COMMUNITY LIAISON OFFICER Office Visit [facility] Medical Group Pulmonology Specialty Clinic - [address] [address] Nathan Baig MD [address] [place] [address] 11/14/2024 10:20 AM COMMUNITY LIAISON OFFICER Office Visit [facility] Medical Group Multispecialty Care [place] [address] [address] [place] [address] Tracy Olivares MD [facility] [address] [address] Scheduled Orders Name Type Priority Associated Diagnoses [...] Total Score: 2 09/14/19 24 11:30 AM COMMUNITY LIAISON OFFICER documented as of this encounter Care Teams Dry Kiln Burner Relationship Specialty Start Date End Date Tracy Olivares MD [address] [place] [address] PCP - General INTERNAL MEDICINE 01/02/21 Nathan Baig MD [address] [address] Consulting Physician Internal Medicine Pulmonary Disease 09/16/21 documented as of this encounter
--- OUTSIDE RECORDS SUMMARY | 2024-09-07 15:17 | XMS_ITS | Encounter Summary ---
Author Organization [facility] Address [address] [place] [address]. [place], [place] [address] [place] [address] Care Team Providers Care House Registry Rn Name Role Phone Tracy Olivares MD Primary Care Provider [phone] Nathan Baig MD Unavailable [phone] Reason for Visit * Reason Comments [...] st Contact Info) Description 10/03/2024 11:00 AM DIET KITCHEN COOK Office Visit [facility] Medical Group Pulmonology Specialty Clinic - [address] [place] [address] Nathan Baig MD [address] [place] [address] 11/14/2024 10:20 AM DIET KITCHEN COOK Office Visit [facility] Medical Group Multispecialty Care - [place] [address] [address] [place] [address] Tracy Olivares MD [address] [address] documented as of this encounter Procedures Procedure [...] documented as of this encounter Care Teams House Registry Rn Relationship Specialty Start Date End Date Tracy Olivares MD [address] [address] PCP - General INTERNAL MEDICINE 01/02/21 Nathan Baig MD [address] [address] Consulting Physician Internal Medicine Pulmonary Disease 09/16/21 documented as of this encounter
--- OUTSIDE RECORDS SUMMARY | 2024-09-07 15:17 | XMS_ITS | Encounter Summary ---
Author Organization [facility] Address [address] [place] [address]. [place], [place] [address] [place] [address] Care Team Providers Care Language Specialist Name Role Phone Tracy Olivares MD Primary Care Provider [phone] Nathan Baig MD Unavailable [phone] Reason for Visit * Reason Comments [...] Contact Info) Description 10/03/2024 11:00 AM MARKETING BUSINESS ANALYST Office Visit [facility] Medical Group Pulmonology Specialty Clinic - [address] [place] [address] Nathan Baig MD [address] [place] [address] 11/14/2024 10:20 AM MARKETING BUSINESS ANALYST Office Visit [facility] Medical Group Multispecialty Care - [place] [address] [address] [place] [address] [place] [address] [place] [address] documented as of this encounter Procedures Procedure [...] Score: 2 09/14/19 24 11:30 AM MARKETING BUSINESS ANALYST documented as of this encounter Care Teams Language Specialist Relationship Specialty Start Date End Date Tracy Olivares MD [address] [place] [address] PCP - General INTERNAL MEDICINE 01/02/21 Nathan Baig MD [address] [address] Consulting Physician Internal Medicine Pulmonary Disease 09/16/21 documented as of this encounter
--- OUTSIDE RECORDS SUMMARY | 2024-09-07 15:17 | XMS_ITS | Encounter Summary ---
Author Organization [facility] Address [address] [place] [address]. [place] [id number] [place] [address] Care Team Providers Care Landscape Architect And Planner Name Role Phone Tracy Olivares MD Primary Care Provider [phone] Nathan Baig MD Unavailable [phone] Reason for Visit * Reason Comments [...] (Latest Contact Info) Description 07/29/2023 9:[address] LIGHT REPAIRER Office Visit [facility] Medical Group Multispecialty Care - [place] [address] [place] [address] Janay Andrade, BOX CLOSING MACHINE OPERATOR [address] [facility], [address] [place] [address] Ear Problem (Left ear, states [...] Comments Blood Pressure 144/84 07/29/2023 9:[address] LIGHT REPAIRER Pulse 72 07/29/2023 9:[address] LIGHT REPAIRER Temperature 37 ??C (98.6 ??F) 07/29/2023 9:[address] LIGHT REPAIRER Respiratory Rate 14 07/29/2023 9:[address] LIGHT REPAIRER Oxygen Saturation 98% 07/29/2023 9:[address] LIGHT REPAIRER Inhaled Oxygen Concentration - - Weight 132.9 kg (293 lb) 07/29/2023 9:[address] LIGHT REPAIRER Height 161.3 cm (5' 3.5 ) 07/29/2023 9:[address] LIGHT REPAIRER Body Mass Index 51.09 07/29/2023 9:[address] LIGHT REPAIRER documented in this encounter Progress Notes * [...] route daily., Disp: 16 g, Rfl: 5 Radkbtgwxgv-Sssviguoj-Kuuipi (TRELEGY ELLIPTA) 100-62.5-25 MCG/ACT AEROSOL POWDER, BREATH [...] 1 Vitamin D, Cholecalciferol, 50 MCG (1999 [place]) Cap, Take 1,000 Units by mouth daily., Disp: 30 capsule, Rfl: Review of patient's allergies indicates: Allergen Reactions Propoxyphene Unknown Past Medical History: Diagnosis Date Anxiety Cataract Chronic low back pain COPD (chronic obstructive pulmonary disease) ([facility]/HCC) ([facility]) Depression Diabetes mellitus ([facility]/HCC) ([facility]) GERD (gastroesophageal reflux disease) Glaucoma Hearing [...] the day of the encounter. This includes nxeo-kw-gzoy and zdw-dkof-mg-face time I provided on the day of the encounter & excludes time spent performing separately reportable services. STEVE GORDON Referring Provider: No ref. provider found PCP: TRACY OLIVARES MD ET LIGHT REPAIRER documented in this encounter Plan of Treatment Upcoming Encounters Date Type Department Care Team (Late st Contact Info) Description 10/03/2024 11:[address] LIGHT REPAIRER Office Visit [facility] Medical Group Pulmonology Specialty Clinic - [place] [address] [facility] [address] [place] [address] Nathan Baig MD [address] [place] [address] 11/14/2024 10:[address] LIGHT REPAIRER Office Visit [facility] Medical Group Multispecialty Care - [address] [place] [address] Tracy Olivares MD [address] [address] documented as of this encounter Visit Diagnoses Diagnosis Middle ear effusion, left- Primary Sacroiliac joint pain Disorders of sacrum documented in this encounter Additional Health Concerns Assessment Noted Time PHQ-9 Depression Total Score: 16 023 3:44 PM CDT documented as of this encounter Care Teams Landscape Architect And Planner Relationship Specialty Start Date End Date Tracy Olivares MD [address] [place] [address] PCP - General INTERNAL MEDICINE 01/02/21 Nathan Baig MD [address] [address] Consulting Physician Internal Medicine Pulmonary Disease 09/16/21 documented as of this encounter
--- OUTSIDE RECORDS SUMMARY | 2024-09-07 15:17 | XMS_ITS | Encounter Summary ---
Author Organization [facility] Address [address] [place] [address]. [place], [place] [address] [place] [address] Care Team Providers Care Dry Color Tester Name Role Phone Tracy Olivares MD Primary Care Provider [phone] Nathan Baig MD Unavailable [phone] Encounter Details Date Type Department Care [...] Contact Info) Description 10/03/2024 11:00 AM HEALTH ASSISTANT Office Visit [facility] Medical Group Pulmonology Specialty Clinic - [place] [address] [address] [facility] [address] [place] [address] Nathan Baig MD [address] [place] [address] 11/14/2024 10:20 AM HEALTH ASSISTANT Office Visit [facility] Medical Group Multispecialty Care - [place] [address] [address] [facility] [address] [place] [address] Tracy Olivares MD 118[address] [facility] 157 [place] [address] documented as of this encounter Visit Diagnoses Not on filedocumented in this encounter Additional Health Concerns Assessment Noted Time PHQ-9 Depression Total Score: 2 09/14/19 24 11:30 AM HEALTH ASSISTANT documented as of this encounter Care Teams Dry Color Tester Relationship Specialty Start Date End Date Trcay Olivares MD 1188 [facility] 157 [place] [address] PCP - General INTERNAL MEDICINE 01/02/21 Nathan Baig MD [address] [address] Consulting Physician Internal Medicine Pulmonary Disease 09/16/21 documented as of this encounter
--- OUTSIDE RECORDS SUMMARY | 2024-09-07 15:17 | XMS_ITS | Encounter Summary ---
Author Organization [facility] Address [address] [place] [address]. [place] [address] [place] [address] Care Team Providers Care Wastewater Treatment Supervisor Name Role Phone Tracy Olivares MD Primary Care Provider [phone] Nathan Baig MD Unavailable [phone] Reason for Visit * Reason Comments Allied Health Visit Pt is here for lab w ork Encounter Details Date Type Department Care Team (Latest Contact Info) Description 02/27/2024 11:00 AM CDT Allied Health/Nurse Visit [facility] Medical Group Multispecialty Care - [place] [address] [address] [place] [address] [place] [address] [place] [address] [place], [place] [address] Allied Health Visit (Pt is here for [...] st Contact Info) Description 10/03/2024 11:00 AM ARCHITECTURAL SUPERINTENDENT Office Visit [facility] Medical Group Pulmonology Specialty Clinic - [address] [address] Nathan Baig MD [address] [address] 11/14/2024 10:20 AM ARCHITECTURAL SUPERINTENDENT Office Visit [facility] Multispecialty Care - [place] [address] [address] [place] [address] Tracy Olivares MD [address] [place] [address] documented as of this encounter Procedures Procedure Name Priority Date/Time Associated Diagnosis Comments VENIPUNC ARM DRAW Routine 02/27/2024 10:41 AM CDT Idiopathic peripheral neuropathy documented in this encounter Visit Diagnoses Diagnosis Idiopathic peripheral neuropathy- Primary Unspecified hereditary and idiopathic peripheral neuropathy documented in this encounter Additional Health Concerns Assessment Noted Time PHQ-9 Depression Total Score: 2 09/14/19 24 11:30 AM ARCHITECTURAL SUPERINTENDENT documented as of this encounter Care Teams Wastewater Treatment Supervisor Relationship Specialty Start Date End Date Tracy Olivares MD [address] [place] [address] PCP - General INTERNAL MEDICINE 01/02/21 Nathan Baig MD [address] [address] Consulting Physician Internal Medicine Pulmonary Disease 09/16/21 documented as of this encounter
--- OUTSIDE RECORDS SUMMARY | 2024-09-07 15:17 | XMS_ITS | Encounter Summary ---
Author Organization [facility] Address [address] [place] [address]. [place], [place] [address] [place] [address] Care Team Providers Care Internet Marketing Analyst Name Role Phone Tracy Olivares MD Primary Care Provider [phone] Nathan Baig MD Unavailable [phone] Encounter Details Date Type Department Care [...] st Contact Info) Description 10/03/2024 11:00 AM SORTER PRICER Office Visit [facility] Medical Group Pulmonology Specialty Clinic - [place] [address] [address] [facility] [address] [place] [address] Nathan Baig MD [address] [place] [address] 11/14/2024 10:20 AM SORTER PRICER Office Visit [facility] Medical Group Multispecialty Care - [place] [address] [address] [place] [address] Tracy Olivares MD [address] [address] documented as of this encounter Visit Diagnoses Not on filedocumented in this encounter Additional Health Concerns Assessment Noted Time PHQ-9 Depression Total Score: 2 09/14/19 24 11:30 AM SORTER PRICER documented as of this encounter Care Teams Internet Marketing Analyst Relationship Specialty Start Date End Date Tracy Olivares MD [facility] [address] PCP - General INTERNAL MEDICINE 01/02/21 Nathan Baig MD [address] [address] Consulting Physician Internal Medicine Pulmonary Disease 09/16/21 documented as of this encounter
--- OUTSIDE RECORDS SUMMARY | 2024-09-07 15:17 | XMS_ITS | Encounter Summary ---
Author Organization [facility] Address [address] [place] [address]. [place], [place] [address] [place] [address] Care Team Providers Care Bookie Name Role Phone Tracy Olivares MD Primary Care Provider [phone] Nathan Baig MD Unavailable [phone] Reason for Visit * Reason Onset Date Comments Question 10/11/2023 Information 10/11/2023 Encounter Details Date Type Department Care Team (Late st Contact Info) Description 10/11/2023 Telephone [facility] Medical Group Multispecialty Care - [place] [address] [place] [address] [address] [place] [address] [place] [address] [place] [address] [place], [place] [address] Question; Information Social History Tobacco Use Types [...] to discuss weight loss surgery on 11/09. ES' LOCKER ROOM ATTENDANT * Lester Saul Huffman - 10/11/2023 11:53 AM CST Pt called today and stated that she is considering Gastric Sleve Surgery and she is wanting to consult with Dr. Olivares and she how she feels about it, pls call pt and discuss. ES' LOCKER ROOM ATTENDANT documented in this encounter Plan of Treatment Upcoming Encounters Date Type Department Care Team (Late st Contact Info) Description 10/03/2024 11:00 AM LADIES' LOCKER ROOM ATTENDANT Office Visit [facility] Medical Group Pulmonology Specialty Clinic - [address] [address] Nathan Baig MD [address] [address] 11/14/2024 10:20 AM LADIES' LOCKER ROOM ATTENDANT Office Visit [facility] Multispecialty Care - [place] [address] [address] [place] [address] Tracy Olivares MD [address] [place] [address] documented as of this encounter Visit Diagnoses Not on filedocumented in this encounter Additional Health Concerns Assessment Noted Time PHQ-9 Depression Total Score: 2 09/14/19 24 11:30 AM LADIES' LOCKER ROOM ATTENDANT documented as of this encounter Care Teams Bookie Relationship Specialty Start Date End Date Tracy Olivares MD [address] [place] [address] PCP - General INTERNAL MEDICINE 01/02/21 Nathan Baig MD 3 [facility] [address] [place] [address] Consulting Physician Internal Medicine Pulmonary Disease 09/16/21 documented as of this encounter
--- OUTSIDE RECORDS SUMMARY | 2024-09-07 15:17 | XMS_ITS | Encounter Summary ---
Author Organization [facility] Address [address] [place] [address]. [place], [place] [address] [place] [address] Care Team Providers Care Senior Applications Engineer Name Role Phone Tracy Olivares MD Primary Care Provider [phone] Nathan Baig MD Unavailable [phone] Encounter Details Date Type Department Care [...] st Contact Info) Description 10/03/2024 11:00 AM PAPERBOARD BOX MAKER Office Visit [facility] Medical Group Pulmonology Specialty Clinic - [place] [address] [address] [facility] [address] [place] [address] Nathan Baig MD [address] [place] [address] 11/14/2024 10:20 AM PAPERBOARD BOX MAKER Office Visit [facility] Medical Group Multispecialty Care - [place] [address] [address] [place] [address] Tracy Olivares MD [address] [address] documented as of this encounter Visit Diagnoses Not on filedocumented in this encounter Additional Health Concerns Assessment Noted Time PHQ-9 Depression Total Score: 2 09/14/19 24 11:30 AM PAPERBOARD BOX MAKER documented as of this encounter Care Teams Senior Applications Engineer Relationship Specialty Start Date End Date Tracy Olivares MD [facility] [address] [address] PCP - General INTERNAL MEDICINE 01/02/21 Nathan Baig MD [address] [address] Consulting Physician Internal Medicine Pulmonary Disease 09/16/21 documented as of this encounter
--- OUTSIDE RECORDS SUMMARY | 2024-09-07 15:17 | XMS_ITS | Encounter Summary ---
Author Organization [facility] Address [address] [place] [address]. [place], [place] [address] [place] [address] Care Team Providers Care Wheel Alignment Technician Name Role Phone Tracy Olivares MD Primary Care Provider [phone] Nathan Baig MD Unavailable [phone] Reason for Visit * Reason Comments [...] st Contact Info) Description 10/03/2024 11:00 AM CUT OFF MAN Office Visit [facility] Medical Group Pulmonology Specialty Clinic - [address] [place] [address] Nathan Baig MD [address] [place] [address] 11/14/2024 10:20 AM CUT OFF MAN Office Visit [facility] Medical Group Multispecialty Care - [place] [address] [address] [place] [address] Tracy Olivares MD [address] [address] documented as of this encounter Procedures Procedure [...] documented as of this encounter Care Teams Wheel Alignment Technician Relationship Specialty Start Date End Date Tracy Olivares MD [address] [place] [address] PCP - General INTERNAL MEDICINE 01/02/21 Nathan Baig MD [address] [address] Consulting Physician Internal Medicine Pulmonary Disease 09/16/21 documented as of this encounter
--- OUTSIDE RECORDS SUMMARY | 2024-09-07 15:17 | XMS_ITS | Encounter Summary ---
Author Organization [facility] Address [address] [place] [address]. [place] [address] [place] [address] Care Team Providers Care Textile Screen Maker Name Role Phone Tracy Olivares MD Primary Care Provider [phone] Nathan Baig MD Unavailable [phone] Reason for Visit * Consultation (Routine) - Closed Specialty Diagnoses / Procedures Referred By Contoziel t Referred To Contact NUTRITION / [facility] Diabetes and Nutrition Diagnoses Class 3 severe obesity due to excess calories without serious comorbidity with body mass index (BMI) of 50.0 to 59.9 in adult (CMS/HCC [facility]) Procedures OFFICE/OUTPATIENT NEW LOW MDM 30-44 MINUTES OFFICE/OUTPT VISIT,NEW,LEVL IV OFFICE/OUTPT VISIT,NEW,LEVL V OFFICE/OUTPT VISIT,EST,LEVL III OFFICE/OUTPT VISIT,EST,LEVL IV OFFICE/OUTPT VISIT,EST,LEVL V Tracy Olivares MD [address] [facility] [address] [place] [address] Phone: tel: fax: [facility] Diabetes & Nutrition Services [address] [place] [address] Phone: tel: fax: Referral ID Status Reason Start Date Expiration Date Visits Re quested Visits Authorized [id number] Closed 06/08/2023 07/08/2024 99 99 Encounter Details Date Type Department Care Team (Latest Contact Info) Description 10/18/2023 9:50 AM WIRE MESH KNITTER - 10/18/2023 11:59 PM WIRE MESH KNITTER Hospital Encounter [facility] [address] [place] [address] Tracy Olivares MD [address] [facility] [address] [place] [address] Alexandria Lu, MIGUEL A Discharge Disposition: Home [...] and quantity 30 mL 2 07/11/20 24 empagliflozin (JARDIANCE) 10 MG tabletIndications:P [...] diagnosis of diabetes in children. According to [employer] Diabetes Association (ADA) guidelines, hemoglobin A1c <7.0% [...] LDL-C. Buddy SS et al. PORTER. 2013;310(19): 0882-9330 (http://education.Fresh Dish/faq/UCZ994) HDL Date Value Ref Range Status 01/07/2023 [...] questions. [address] RD 10/18/23, 10:44 AM MESH KNITTER documented in this encounter Plan of Treatment Upcoming Encounters Date Type Department Care Team (Late st Contact Info) Description 10/03/2024 11:00 AM WIRE MESH KNITTER Office Visit [facility] Medical [facility] Pulmonology Specialty Clinic - [address] [address] Nathan Baig MD [address] [address] 11/14/2024 10:20 AM WIRE MESH KNITTER Office Visit [facility] Multispecialty Care - [place] [address] [address] [place] [address] Tracy Olivares MD [address] [place] [address] documented as of this encounter Visit Diagnoses Not on filedocumented in this encounter Additional Health Concerns Assessment Noted Time PHQ-9 Depression Total Score: 2 09/14/19 24 11:30 AM WIRE MESH KNITTER documented as of this encounter Care Teams Textile Screen Maker Relationship Specialty Start Date End Date Tracy Olivares MD [address] [place] [address] PCP - General INTERNAL MEDICINE 01/02/21 Nathan Baig MD 3 [facility] [address] [place] [address] Consulting Physician Internal Medicine Pulmonary Disease 09/16/21 documented as of this encounter
--- OUTSIDE RECORDS SUMMARY | 2024-09-07 15:17 | XMS_ITS | Encounter Summary ---
Author Organization [facility] Address [address] [place] [address]. [place], [place] [address] [place] [address] Care Team Providers Care Cereal Maker Name Role Phone Tracy Olivares MD Primary Care Provider [phone] Nathan Baig MD Unavailable [phone] Encounter Details Date Type Department Care Team (Late Contact Info) Description 04/25/2024 Orders Only [facility] Multispecialty Care - [place] [address] [address] [place] [address] [place] [address] [place] [address] Social History Tobacco Use Types Packs/Day [...] (Late Contact Info) Description 10/03/2024 11:00 AM WELL SHOOTER Office Visit [facility] Medical [facility] Pulmonology Specialty Clinic - [address] [address] Nathan Baig MD 3 [facility] [address] [place] [address] 11/14/2024 10:20 AM WELL SHOOTER Office Visit [facility] Medical Group Multispecialty Care - [place] [address] [address] [place] [address] Tracy Olivares MD [facility] [address] documented as of this encounter Visit Diagnoses Diagnosis Idiopathic peripheral neuropathy Unspecified hereditary and idiopathic peripheral neuropathy documented in this encounter Additional Health Concerns Assessment Noted Time PHQ-9 Depression Total Score: 2 09/14/19 24 11:30 AM WELL SHOOTER documented as of this encounter Care Teams Cereal Maker Relationship Specialty Start Date End Date Tracy Olivares MD [address] [place] [address] PCP - General INTERNAL MEDICINE 01/02/21 Nathan Baig MD 3 [facility] [address] [place] [address] Consulting Physician Internal Medicine Pulmonary Disease 09/16/21 documented as of this encounter
--- OUTSIDE RECORDS SUMMARY | 2024-09-07 15:17 | XMS_ITS | Encounter Summary ---
Author Organization [facility] Address [address] [place] [address]. [place], [place] [address] [place] [address] Care Team Providers Care Registered Nurse Surgical Services Name Role Phone Tracy Olivares MD Primary Care Provider [phone] Nathan Baig MD Unavailable Reason for Visit * Reason Onset Date Comments Orders 02/24/2024 Encounter Details Date Type Department Care Team (Late st Contact Info) Description 02/24/2024 Telephone [facility] Medical Group Multispecialty Care - [place] [address] [address] [place] [address] [place] [address] [place] [address] [address] [place] [address] Orders Social History Tobacco Use [...] else due to pt doesn't drive in [facility]. Pt did mention [facility] she wasn't sure about [facility] if they do Mri or not. Pt stated that she is needing somewhere local. documented in this encounter Plan of Treatment Upcoming Encounters Date Type Department Care Team (Late st Contact Info) Description 10/03/2024 11:00 AM NURSE Office Visit [facility] Medical Group Pulmonology Specialty Clinic - [address] [address] Nathan Baig MD 3 [facility] [place] [address] [place] [address] 11/14/2024 10:20 AM NURSE Office Visit [facility] Multispecialty Care - [place] [address] [address] [place] [address] Tracy Olivares MD [facility] [address] [address] documented as of this encounter Visit Diagnoses Not on filedocumented in this encounter Additional Health Concerns Assessment Noted Time PHQ-9 Depression Total Score: 2 09/14/19 24 11:30 AM NURSE documented as of this encounter Care Teams Registered Nurse Surgical Services Relationship Specialty Start Date End Date Tracy Olivares MD [address] [place] [address] PCP - General INTERNAL MEDICINE 01/02/21 Nathan Baig MD 3 [facility] [place] [address] [place] [address] Consulting Physician Internal Medicine Pulmonary Disease 09/16/21 documented as of this encounter
--- OUTSIDE RECORDS SUMMARY | 2024-09-07 15:17 | XMS_ITS | Encounter Summary ---
Author Organization [facility] Address [address] [place] [address]. [place], [place] [address] [place] [address] Care Team Providers Care Flower Grower Name Role Phone Tracy Olivares MD Primary Care Provider [phone] Nathan Baig MD Unavailable [phone] Marisel Mancini RN Unavailable [phone] Encounter Details Date Type Department Care Team (Late Contact Info) Description 02/08/2024 Flexis Message Enc [facility] Medical [facility] Multispecialty Care - [place] [address] [facility] [address] [place] [address] Stephanie, [facility] Provider Xray results Social History Tobacco Use [...] (Late Contact Info) Description 10/03/2024 11:00 AM DEHORNER Office Visit [facility] Medical [facility] Pulmonology Specialty Clinic - [place] [address] [place] [address] Nathan Baig MD 3 [facility] [address] [place] [address] 11/14/2024 10:20 AM DEHORNER Office Visit [facility] Medical Group Multispecialty Care - [place] [address] [address] [place] [address] Tracy Olivares MD [address] [address] documented as of this encounter Visit Diagnoses Not on filedocumented in this encounter Additional Health Concerns Assessment Noted Time PHQ-9 Depression Total Score: 2 09/14/19 24 11:30 AM DEHORNER documented as of this encounter Care Teams Flower Grower Relationship Specialty Start Date End Date Tracy Olivares MD [address] [place] [address] PCP - General INTERNAL MEDICINE 01/02/21 Nathan Baig MD 3 [facility] [address] [place] [address] Consulting Physician Internal Medicine Pulmonary Disease 09/16/21 Marisel Mancini, RN [address] [place] [address] Duplication Specialist (Ambulatory) REGISTERED NURSE 06/28/24 08/07/24 documented as of this encounter
--- OUTSIDE RECORDS SUMMARY | 2024-09-07 15:17 | XMS_ITS | Encounter Summary ---
Author Organization [facility] Address [address] [place] [address]. [place], [place] [address] [place] [address] Care Team Providers Care Theatre Instructor Name Role Phone Tracy Olivares MD Primary Care Provider [phone] Nathan Baig MD Unavailable [phone] Encounter Details Date Type Department Care [...] st Contact Info) Description 10/03/2024 11:00 AM EASEMENT MAN Office Visit [facility] Medical Group Pulmonology Specialty Clinic - [place] [address] [facility] [address] [place] [address] Nathan Baig MD [address] [place] [address] 11/14/2024 10:20 AM EASEMENT MAN Office Visit [facility] Medical Group Multispecialty Care - [place] [address] [facility] [address] [place] [address] Tracy Olivares MD [address] [address] documented as of this encounter Visit Diagnoses Not on filedocumented in this encounter Additional Health Concerns Assessment Noted Time PHQ-9 Depression Total Score: 2 09/14/19 24 11:30 AM EASEMENT MAN documented as of this encounter Care Teams Theatre Instructor Relationship Specialty Start Date End Date Tracy Olivares MD [facility] [address] [address] PCP - General INTERNAL MEDICINE 01/02/21 Nathan Baig MD [address] [address] Consulting Physician Internal Medicine Pulmonary Disease 09/16/21 documented as of this encounter
--- OUTSIDE RECORDS SUMMARY | 2024-09-07 15:17 | XMS_ITS | Encounter Summary ---
Author Organization [facility] Address [address] [place] [address]. [place], [place] [address] [place] [address] Care Team Providers Care Evs Tech Name Role Phone Tracy Olivares MD Primary Care Provider [phone] Nathan Baig MD Unavailable [phone] Encounter Details Date Type Department Care [...] st Contact Info) Description 10/03/2024 11:00 AM MATERIAL DAMAGE ADJUSTER Office Visit [facility] Medical Group Pulmonology Specialty Clinic - [address] [place] [address] Nathan Baig MD [address] [place] [address] 11/14/2024 10:20 AM MATERIAL DAMAGE ADJUSTER Office Visit [facility] Medical Group Multispecialty Care - [address] [place] [address] Tracy Olivares MD [address] [place] [address] documented as of this encounter Visit Diagnoses Not on filedocumented in this encounter Additional Health Concerns Assessment Noted Time PHQ-9 Depression Total Score: 16 023 3:44 PM CDT documented as of this encounter Care Teams Evs Tech Relationship Specialty Start Date End Date Tracy Olivares MD [address] [place] [address] PCP - General INTERNAL MEDICINE 01/02/21 Nathan Baig MD [address] [address] Consulting Physician Internal Medicine Pulmonary Disease 09/16/21 documented as of this encounter
--- OUTSIDE RECORDS SUMMARY | 2024-09-07 15:17 | XMS_ITS | Encounter Summary ---
Author Organization [facility] Address [address] [place] [address]. [place], [place] [address] [place] [address] Care Team Providers Care Customer Services Coordinator Name Role Phone Tracy Olivares MD Primary Care Provider [phone] Nathan Baig MD Unavailable [phone] Reason for Referral * Procedure (Routine) - Pending Review Specialty Diagnoses / Procedures Referred By Contac t Referred To Contact Diagnoses Moderate persistent asthma without complication (HHS/HCC) Procedures Complete PFT (pre/post Tim, Lung Vol, Diff Capacity) (83467, 21157, 01379, 11624) Complete PFT (pre/post Montez[place], Lung Vol, Diff Capacity) (56026, 88399, 68585, 33332) Nathan Baig MD [address] [place] [address] Phone: tel: fax: Referral ID Status Reason Start Date Expiration Date V isits Requested Visits Authorized [id number] Pending Review 03/23/2024 03/23/2025 1 1 Reason for Visit * Reason Comments Obstructive Sleep Apnea Encounter Details Date Type Department Care Team (Late st Contact Info) Description 03/23/2024 11:00 AM CDT Office Visit [facility] Medical Group Pulmonology Specialty Clinic - [address] [place] [address] Nathan Baig MD [address] [place] [address] Obstructive Sleep Apnea Social History Tobacco Use [...] Baig MD - 03/23/2024 11:00 AM CDT [facility] PULMONARY MEDICINE History Chief Complaint [...] back pain COPD (chronic obstructive pulmonary disease) ([facility]) Depression Diabetes mellitus ([facility]) GERD (gastroesophageal reflux disease) Glaucoma Hearing loss [...] by Nasal route daily. 16 g 5 Chsleszujnm-Ifajyvcgs-Hgqrsc (TRELEGY ELLIPTA) 100-62.5-25 MCG/ACT AEROSOL POWDER, BREATH [...] Contact Info) Description 10/03/2024 11:00 AM BRASS MOLDER HELPER Office Visit [facility] Medical Group Pulmonology Specialty Clinic - [address] [address] Nathan Baig MD [address] [place] [address] 11/14/2024 10:20 AM BRASS MOLDER HELPER Office Visit [facility] Medical [facility] Multispecialty Care - [place] [address] [address] [place] [address] Tracy Olivares MD [address] [place] [address] documented as of this encounter Procedures Procedure Name Priority Date/Time Associated Diagnosis Comments PULMONARY FUNCTION TEST Routine 04/25/2024 12:00 AM CDT Moderate persistent asthma without complication (HHS/HCC) documented in this encounter Results * Complete PFT (pre/post [place], Lung Vol, Diff Capacity) (87032, 67048, 70697, 21125) (04/25/2024 12:00 AM CDT) 04/25/2024 us Nathan Baig MD PFT ORDERABLES Final Result [facility] documented in this encounter Visit Diagnoses Diagnosis FAISAL on CPAP- Primary Obstructive sleep apnea (adult) (pediatric) Moderate persistent asthma without complication ([facility]) Unspecified asthma Class 3 severe obesity due to excess calories without serious comorbidity with body mass index (BMI) of 50.0 to 59.9 in adult ([facility]) Seasonal allergies Allergic rhinitis, cause unspecified Nicotine dependence, cigarettes, in remission documented in this encounter Additional Health Concerns Assessment Noted Time PHQ-9 Depression Total Score: 2 09/14/19 24 11:30 AM BRASS MOLDER HELPER documented as of this encounter Care Teams Customer Services Coordinator Relationship Specialty Start Date End Date Tracy Olivares MD 118[address] [facility] [address] [place] [address] PCP - General INTERNAL MEDICINE 01/02/21 Nathan Baig MD [address] [address] Consulting Physician Internal Medicine Pulmonary Disease 09/16/21 documented as of this encounter
--- OUTSIDE RECORDS SUMMARY | 2024-09-07 15:17 | XMS_ITS | Encounter Summary ---
Author Organization [facility] Address [address] [place] [address]. [place], [place] [address] [place] [address] Care Team Providers Care Pit Furnace Melter Name Role Phone Tracy Olivares MD Primary Care Provider [phone] Nathan Baig MD Unavailable [phone] Marisel Mancini RN Unavailable [phone] Encounter Details Date Type Department Care Team (Late Contact Info) Description 01/11/2024 AquaMost Message Enc [facility] Medical [facility]pecialty Care - [place] [address] [facility] [address] [place] [address] Stephanie [facility] Provider Weight Watchers Social History Tobacco Use [...] (Late Contact Info) Description 10/03/2024 11:00 AM INSURANCE ATTORNEY Office Visit [facility] Medical [facility] Pulmonology Specialty Clinic - [place] [address] [address] [place] [address] Nathan Baig MD 3 [facility] [address] [place] [address] 11/14/2024 10:20 AM INSURANCE ATTORNEY Office Visit [facility] Medical Group Multispecialty Care - [place] [address] [address] [place] [address] Tracy Olivares MD [address] [address] documented as of this encounter Visit Diagnoses Not on filedocumented in this encounter Additional Health Concerns Assessment Noted Time PHQ-9 Depression Total Score: 2 09/14/19 24 11:30 AM INSURANCE ATTORNEY documented as of this encounter Care Teams Pit Furnace Melter Relationship Specialty Start Date End Date Tracy Olivares MD [address] [place] [address] PCP - General INTERNAL MEDICINE 01/02/21 Nathan Baig MD 3 [facility] [address] [place] [address] Consulting Physician Internal Medicine Pulmonary Disease 09/16/21 Marisel Mancini, RN [address] [place] [address] High School Counselor (Ambulatory) REGISTERED NURSE 06/28/24 08/07/24 documented as of this encounter
--- OUTSIDE RECORDS SUMMARY | 2024-09-07 15:17 | XMS_ITS | Encounter Summary ---
Author Organization [facility] Address [address] [place] [address]. [place] [id number] [place] [address] Care Team Providers Care Charter Representative Name Role Phone Tracy Olivares MD Primary Care Provider [phone] Nathan Baig MD Unavailable [phone] Reason for Visit * Reason Comments Enhanced Encounter Hemorrhoids Follow Up Pt states bladder cruz s fallen and chronic medical issues Encounter Details Date Type Department Care Team (Latest Contact Info) Description 03/20/2024 9:20 AM CDT Office Visit [facility] Medical Group Multispecialty Care - [place] [address] [address] [place] [address] Tracy Olivares MD [address] [place] [address] [address] [place] [address] Enhanced Encounter; Hemorrhoids; Follow Up (Pt states [...] through Care Everywhere. * Hemorrhoidectomy Discharge Instructions (Georgian) documented in this encounter Progress Notes * [...] at the moment. Currently patient is on dttz-kvx-xsbljpo antihistamines which helps with symptom controled.. Denies [...] had an EGD done in 2019 at [facility]. Andersons. Currently on Nexium 40 mg daily [...] at home mostly. She [facility] tripped [facility] but did not fall. History of mitral [...] worse. She is seeing urology- Shantel Clark HEEL CEMENTER MACHINE. Struggling with hemorrhoids and patient concerned. Discussed [...] needed for heart burn. 180 tablet 1 Jzzilvehqdl-Ildwpfpek-Vnmidi (TRELEGY ELLIPTA) 100-62.5-25 MCG/ACT AEROSOL POWDER, BREATH [...] redirect to the Timeline version of the Hi-Dis(Mosen) SmartLink. Health Maintenance Topic Date Due Zoster [...] back pain COPD (chronic obstructive pulmonary disease) ([facility]CC) Depression Diabetes mellitus ([facility]/HCC) GERD (gastroesophageal reflux disease) Glaucoma Hearing [...] Moderate episode of recurrent major depressive disorder ([facility]) 11. Anxiety 12. Class 3 severe obesity due to excess calories without serious comorbidity with body mass index (BMI) of 45.0 to 49.9 in adult ([facility]) 13. Postmenopausal 14. Seasonal allergic rhinitis due [...] cream 22. Pulmonary emphysema, unspecified emphysema type ([facility]) Ykpjuspftpe-Pdyopcuuv-Tmygvr (TRELEGY ELLIPTA) 100-62.5-25 MCG/ACT AEROSOL POWDER, BREATH ACTIVATED 23. Impaired glucose tolerance in obese empagliflozin (JARDIANCE) 10 MG tablet 24. Type 2 diabetes mellitus with hyperglycemia, without long-term current use of insulin ([facility]) 1. General medical exam -Patient past medical, [...] time to time. She is currently on [place] on an as-needed basis and using very [...] Moderate episode of recurrent major depressive disorder ([facility]) -Stable symptoms at this time. Close monitoring. Patient off her antidepressants. Close monitoring. 11. Anxiety -Stable symptoms at this time. Close monitoring. Patient off her antidepressant and antianxiety medication. Close monitoring. 12. Class 3 severe obesity due to excess calories without serious comorbidity with body mass index (BMI) of 45.0 to 49.9 in adult ([facility]) --Pt has elevated weight with BMI Body mass index is 49.15 kg/m??., and will need to work hard on reducing carbohydrates and total calories. -You may use the free smart phone apps such as [employer] to help track calories and try to [...] as needed. Close follow-up pulmonary -Continue with Ltjniqpukka-Uipkgesvm-Kedslz (TRELEGY ELLIPTA) 100-62.5-25 MCG/ACT AEROSOL POWDER, BREATH ACTIVATED; Inhale 1 puff into the lungs daily. Dispense: 180 each; Refill: 3 23. Impaired glucose tolerance in obese -Stable. -Continue with empagliflozin (JARDIANCE) 10 MG tablet; Take 1 tablet (10 mg total) by mouth daily. Dispense: 90 tablet; Refill: 1 24. Type 2 diabetes mellitus with hyperglycemia, without long-term current use of insulin ([facility]) -Stable. -Continue with empagliflozin (JARDIANCE) 10 MG tablet; Take 1 tablet (10 mg total) by mouth daily. Dispense: 90 tablet; Refill: 1 Orders Placed This Encounter [facility] ARM DRAW URINALYSIS AUTO DIP HEMOGLOBIN, GLYCOSYLATED TSH W/REFLEX LIPID PANEL COMPREHENSIVE METABOLIC PANEL CBC W/DIFF AUTOMATED hydrocortisone (PREPARATION H) 1 % rectal cream famotidine (PEPCID) 20 MG tablet Dpvldumesxt-Ykvfwzdsz-Vzwhrk (TRELEGY ELLIPTA) 100-62.5-25 MCG/ACT AEROSOL POWDER, BREATH ACTIVATED losartan-hydroCHLOROthiazide (HYZAAR) 100-12.5 MG tablet empagliflozin (JARDIANCE) 10 MG tablet albuterol sulfate HFA 108 (90 Base) MCG/ACT inhaler atorvastatin (LIPITOR) 20 MG tablet gabapentin (NEURONTIN) 300 MG capsule esomeprazole (NEXIUM) 40 MG capsule I personally spent a total of 60 minutes on the day of the encounter. This includes qjvc-nd-vjxu and cjl-tkks-zt-face time I provided on the day of the encounter & excludes time spent performing separately reportable services. Reviewed and updated this visit by provider: Tobacco Allergies Meds Med Hx Surg Hx Fam Hx Soc Hx TRACY OLIVARES MD documented in this encounter Plan of Treatment Upcoming Encounters Date Type Department Care Team (Late st Contact Info) Description 10/03/2024 11:00 AM SCIENTIFIC INVESTIGATOR Office Visit [facility] Medical [facility] Pulmonology Specialty Clinic - [address] [address] Nathan Baig MD [address] [place] [address] 11/14/2024 10:20 AM SCIENTIFIC INVESTIGATOR Office Visit [facility] Medical Group Multispecialty Care - [place] [address] [address] [place] [address] Tracy Olivares MD [address] [place] [address] 157 [place] [address] documented as of this encounter Procedures Procedure [...] ABS. NEUTROPHILS 3,770 1,500 - 7,800 cells/uL [facility] ABS. LYMPHOCYTES 1,398 850 - 3,900 cells/uL [facility] ABS. MONOCYTES 406 200 - 950 cells/uL [facility] [employer] [place] ABS. EOSINOPHILS 197 15 - 500 cells/uL [facility] [employer] [facility] ABS. BASOPHILS 29 0 - 200 cells/uL [facility] [employer] [facility] SEG NEUTROPHILS 65 % [facility] LYMPHOCYTES 24.1 % [facility] MONOCYTES 7.0 % [facility] EOSINOPHILS 3.4 % [facility] [employer] [place] BASOPHILS 0.5 % [facility] [place] 03/23/2024 10:4 3 AM CDT 03/24/2024 3:18 AM CDT Narrative Resulting Agency Comment Performing Organization Information: ?Site ID: [place] ?Name: [facility] ?Address: [address] [place] [id number] ?Director: Mahin Mckeon MD Tracy Olivares MD LABORATORY Final Result [facility] [place] [facility] [address] [place], [place] [address] * COMPREHENSIVE METABOLIC PANEL (03/23/2024 10:43 AM CDT) GLUCOSE 92 65 - 99 mg/dL [facility] Comment: ? Fasting reference interval BUN 13 7 - 25 mg/dL [facility] CREATININE S/P/B 0.78 0.50 - 1.05 mg/dL [facility] GFR ESTIMATE 83 > OR = 60 mL/min/1. 73m2 [facility] BUN CREATININE RATIO SEE NOTE: (calc) [facility] Comment: ?? Not Reported: BUN and Creatinine are within ?? reference range. ? SODIUM S/P/B 141 135 - 146 mmol/L [facility] POTASSIUM S/P/B 4.1 3.5 - 5.3 mmol/L [facility] CHLORIDE S/P/B 102 98 - 110 mmol/L [facility] CO2 30 20 - 32 mmol/L [facility] [place] CALCIUM S/P/B 9.2 8.6 - 10.4 mg/dL [facility] TOTAL PROTEIN S/P/B 6.7 6.1 - 8.1 g/dL [facility] ALBUMIN S/P/B 3.8 3.6 - 5.1 g/dL [facility] GLOBULIN 2.9 1.9 - 3.7 g/dL (calc) [facility] ALBUMIN/GLOBULI N RATIO 1.3 1.0 - 2.5 (calc) [employer] [facility] BILIRUBIN TOTAL S/P/B 0.5 0.2 - 1.2 mg/dL [facility] ALKALINE PHOSPHATASE S/P/B 142 37 - 153 U/L [facility] AST 13 10 - 35 U/L [employer] [facility] ALT 11 6 - 29 U/L [facility] 03/23/2024 10:4 3 AM CDT 03/24/2024 3:18 AM CDT Narrative Resulting Agency Comment Performing Organization Information: ?Site ID: [place] ?Name: Brie Paul ?Address: [address] [place] [id number] ?Director: Mahin Mckeon MD Tracy Olivares MD LABORATORY Final Result [facility] DEEPTI Robert [facility] [id number] [place], [place] [address] [address] * LIPID PANEL (03/23/2024 10:43 AM CDT) CHOLESTEROL 125 <200 mg/dL [facility] HDL 62 > OR = 50 mg/dL [facility] TRIGLYCERIDES 83 <150 mg/dL [facility] LDL (CALCULATED) 46 mg/dL (calc) [facility] Comment: Reference range: <100 Desirable range <100 mg/dL for primary prevention; ?? <70 mg/dL for patients with CHD or diabetic patients with > or = 2 CHD risk factors. LDL-C is now calculated using the Go calculation, which is a validated novel method providing better accuracy than the Friedewald equation in the estimation of LDL-C. Buddy ANAND et al. PORTER. 2013;310(29): 5550-8867 (http://education.Palmap/faq/HRE159) CHOL/HDL RATIO 2.0 <5.0 (calc) [employer] DIAGNOSTICS [facility] NON HDL CHOLESTEROL 63 <130 mg/dL (calc) [employer] [facility] Comment: For patients with diabetes plus 1 major ASCVD risk factor, treating to a non-HDL-C goal of <100 mg/dL (LDL-C of <70 mg/dL) is considered a therapeutic option. 03/23/2024 10:4 3 AM CDT 03/24/2024 3:18 AM CDT Narrative Resulting Agency Comment Performing Organization Information: ?Site ID: JACKY ?Name: [facility] ?Address: [facility] [place] [address] ?Director: Mahin Mckeon MD Tracy Olivares MD LABORATORY Final Result Performing Organization Address City/[facility]/ZIP Co de Phone Number [facility] Jakob CABAN [facility] [address] [place] [address], * TSH W/REFLEX (03/23/2024 10:43 AM CDT) TSH 2.24 0.40 - 4.50 mIU/L [facility] 03/23/2024 10:4 3 AM CDT 03/24/2024 3:18 AM CDT Narrative Resulting Agency Comment Performing Organization Information: ?Site ID: JACKY ?Name: [facility] ?Address: [address] [place], [place] [address]ner [facility] [address] ?Director: Mahin Mckeon MD Tracy Olivares MD LABORATORY Final Result Performing Organization Address City/[facility]/ZIP Co de Phone Number [employer] [facility] [address] [place] [address], [place] * (ABNORMAL) HEMOGLOBIN, GLYCOSYLATED (03/23/2024 10:43 AM CDT) Pathologist [facility] HGB A1C 6.1(H) <5.7 % of total Hgb [facility] Comment: For someone without known diabetes, [...] change in test platforms from the Cohen Hand Paster to the Tanisha jarrett c503 may have shifted HbA1c results compared to historical results. Based on laboratory validation testing conducted at [employer], the Tanisha platform relative to the Cohen [...] Agency Comment Performing Organization Information: ?Site ID: [place] ?Name: [facility] ?Address: [address] [address] ?Director: Mahin Mckeon MD us Tracy Olivares MD LABORATORY Final Result [facility] TYRONE CABAN [employer] [facility] [address] [address] [place] [address], [place] * (ABNORMAL) URINALYSIS AUTO DIP (03/20/2024) [facility] COLOR (U) YELLOW YELLOW [address], [place] TRANSPARENCY CLEAR CLEAR [address], [place] GLUCOSE (U) 500 mg/dl(A) NEGATIVE MG/DL MG-[address], [place] BILIRUBIN (U) NEGATIVE NEGATIVE MG-[address], [place] KETONES MG/DL (U) NEGATIVE NEGATIVE MG/DL MG-[address], [place] SPECIFIC GRAVITY (U) 1.020 1.001 - 1.035 MG-[address], [place] BLOOD (U) NEGATIVE NEGATIVE MG-[address], [place] U PH 6.0 5.0 - 9.0 MG[address], [place] PROTEIN (U) NEGATIVE NEGATIVE mg/dL MG-[address], [place] UROBILINOGEN 0.2 0.2 - 1.0 EU/dL = mg/dL MG-[address], [place] NITRITES NEGATIVE NEGATIVE MG/DL MG-[address], [place] LEUKOCYTES (U) NEGATIVE NEGATIVE MG-[address], [place] URINE SPECIMEN OBTAINED BY CLEAN CATCH PROCEDURE / Unknown 03/20/2024 Tracy Olivares MD URINE ORDERABLES Final Result MG[address], [place] [address] [place] [address], documented in this encounter Visit Diagnoses Diagnosis [...] Moderate episode of recurrent major depressive disorder ([facility]) Anxiety Anxiety state, unspecified Class 3 severe obesity due to excess calories without serious comorbidity with body mass index (BMI) of 45.0 to 49.9 in adult ([facility]) Postmenopausal Asymptomatic postmenopausal status (age-related) (natural) Seasonal allergic rhinitis due to pollen FAISAL on CPAP Obstructive sleep apnea (adult) (pediatric) RLS (restless legs syndrome) Restless legs syndrome (RLS) Hearing loss of left ear, unspecified hearing loss type Mixed hyperlipidemia Glaucoma, unspecified glaucoma type, unspecified laterality Abnormal finding of blood chemistry, unspecified Hemorrhoids, unspecified hemorrhoid type Pulmonary emphysema, unspecified emphysema type ([facility]/HCC) Impaired glucose tolerance in obese Other abnormal glucose Type 2 diabetes mellitus with hyperglycemia, without long-term current use of insulin ([facility]) documented in this encounter Additional Health Concerns Assessment Noted Time PHQ-9 Depression Total Score: 2 09/14/19 24 11:30 AM SCIENTIFIC INVESTIGATOR documented as of this encounter Care Teams Charter Representative Relationship Specialty Start Date End Date Tracy Olivares MD [address] [address] PCP - General INTERNAL MEDICINE 01/02/21 Natahn Baig MD [address] [address] Consulting Physician Internal Medicine Pulmonary Disease 09/16/21 documented as of this encounter
--- OUTSIDE RECORDS SUMMARY | 2024-09-07 15:17 | XMS_ITS | Encounter Summary ---
Author Organization [facility] [place] Address [address] [place] [address]. [place], [place] [address] [place] [address] Care Team Providers Care Plastic Jig And Fixture Builder Name Role Phone Tracy Olivares MD Primary Care Provider [phone] Nathan Baig MD Unavailable [phone] Reason for Visit * Reason Onset Date Comments Called To Cancel Office Appt. 01/10/2024 Encounter Details Date Type Department Care Team (Late st Contact Info) Description 01/10/2024 Telephone [facility] Physical Therapy [address] [place] [address] Ly [place], [place] [address] Called To Cancel Office Appt. Social History [...] st Contact Info) Description 10/03/2024 11:00 AM CYLINDER BLOCK MECHANIC Office Visit [facility] Medical [facility] Pulmonology Specialty Clinic - [address] [address] Nathan Baig MD 3 [facility] [address] [place] [address] 11/14/2024 10:20 AM CYLINDER BLOCK MECHANIC Office Visit [facility] Multispecialty Care - [place] [address] [address] [place] [address] Tracy Olivares MD [address] [place] [address] documented as of this encounter Visit Diagnoses Not on filedocumented in this encounter Additional Health Concerns Assessment Noted Time PHQ-9 Depression Total Score: 2 09/14/19 24 11:30 AM CYLINDER BLOCK MECHANIC documented as of this encounter Care Teams Plastic Jig And Fixture Builder Relationship Specialty Start Date End Date Tracy Olivares MD [address] [place] [address] PCP - General INTERNAL MEDICINE 01/02/21 Nathan Baig MD 3 [facility] [place] [address] [place] [address] Consulting Physician Internal Medicine Pulmonary Disease 09/16/21 documented as of this encounter
--- OUTSIDE RECORDS SUMMARY | 2024-09-07 15:17 | XMS_ITS | Encounter Summary ---
Author Organization [facility] Address [address] [place] [address]. [place] [id number] [place] [address] Care Team Providers Care Flamer After Lasting Name Role Phone Tracy Olivares MD Primary Care Provider [phone] Nathan Baig MD Unavailable Encounter Details Date Type Department Care Team (Late st Contact Info) Description 02/07/2024 Orders Only [facility] Medical Group Multispecialty Care - [place] [address] [address] [place], [place] [id number] [place] [address] [place] [address] 157 [place] [address] Social History Tobacco Use Types [...] a CSA form ready for the front desk host thank you. documented in this encounter Plan of Treatment Upcoming Encounters Date Type Department Care Team (Late st Contact Info) Description 10/03/2024 11:00 AM GRAVEL WEIGHER Office Visit [facility] Medical [facility] Pulmonology Specialty Clinic - [address] [address] Nathan Baig MD [address] [address] 11/14/2024 10:20 AM GRAVEL WEIGHER Office Visit [facility] Multispecialty Care - [place] [address] [address] [place] [address] Tracy Olivares MD [address] [place] [address] documented as of this encounter Visit Diagnoses Diagnosis Chronic bilateral low back pain with bilateral sciatica- Primary documented in this encounter Additional Health Concerns Assessment Noted Time PHQ-9 Depression Total Score: 2 09/14/19 24 11:30 AM GRAVEL WEIGHER documented as of this encounter Care Teams Flamer After Lasting Relationship Specialty Start Date End Date Tracy Olivares MD [address] [place] [address] PCP - General INTERNAL MEDICINE 01/02/21 Nathan Baig MD [address] [address] Consulting Physician Internal Medicine Pulmonary Disease 09/16/21 documented as of this encounter
--- OUTSIDE RECORDS SUMMARY | 2024-09-07 15:17 | XMS_ITS | Encounter Summary ---
Author Organization [facility] Address [address] [place] [address]. [place], [place] [address] [place] [address] Care Team Providers Care Card Room Manager Name Role Phone Tracy Olivares MD Primary Care Provider [phone] Nathan Baig MD Unavailable [phone] Reason for Visit * Reason Onset Date Comments Information 02/29/2024 Encounter Details Date Type Department Care Team (Late Contact Info) Description 02/29/2024 Telephone [facility] Multispecialty Care - [place] [address] [address] [place] [address] Tracy Olivares MD [address] [facility] [address] Information Social History Tobacco Use Types [...] (Late Contact Info) Description 10/03/2024 11:00 AM STUNNER AND SHACKLER Office [facility] Medical [facility] Pulmonology Specialty Clinic - [address] [place], [place] [phone] Nathan Baig MD 3 [facility] [address] [place] [address] 11/14/2024 10:20 AM STUNNER AND SHACKLER Office Visit [facility] Medical Group Multispecialty Care - [place] [address] [address] [place] [address] Tracy Olivares MD [address] [facility] [place] [address] documented as of this encounter Visit Diagnoses Not on filedocumented in this encounter Additional Health Concerns Assessment Noted Time PHQ-9 Depression Total Score: 2 09/14/19 24 11:30 AM STUNNER AND SHACKLER documented as of this encounter Care Teams Card Room Manager Relationship Specialty Start Date End Date Tracy Olivares MD [address] [facility] [place] [address] PCP - General INTERNAL MEDICINE 01/02/21 Nathan Baig MD [address] [address] Consulting Physician Internal Medicine Pulmonary Disease 09/16/21 documented as of this encounter
--- OUTSIDE RECORDS SUMMARY | 2024-09-07 15:17 | XMS_ITS | Encounter Summary ---
Author Organization [facility] - [facility] Address [address] [place] [address]. [place], [place] [address] [place] [address] Care Team Providers Care Budget Manager Name Role Phone Tracy Olivares MD Primary Care Provider [phone] Nathan Baig MD Unavailable [phone] Reason for Visit * Reason Comments UTI Encounter Details Date Type Department Care Team (Late st Contact Info) Description 02/01/2024 2:00 PM CDT Office Visit [facility] Medical Group Multispecialty Care - [place] [address] [facility] [address] [place], [place] [id number] Keri Rosario, CRUSHER AND BLENDER OPERATOR [address] [facility] [address] [place], [place] [id number] UTI Social History Tobacco Use Types Packs/Day [...] fall. Prior injections with pain management in [place] with some relief, most recent injections at [facility] caused a strange sensation in her legs right after procedure so she is fearful of having more shots. Dr. Colleen GAMBOA also ordered mammogram and bone density Patient has history of below: Patient Active Problem List Diagnosis Current moderate episode of major depressive disorder ([facility]) Essential hypertension Gastroesophageal reflux disease Hearing loss Impaired glucose tolerance in obese Shoulder pain Chronic low back pain with bilateral sciatica Obesity Lumbar herniated disc FAISAL on CPAP Glaucoma Cataract Anxiety Knee pain Mixed hyperglyceridemia Prediabetes Other specified anemias RLS (restless legs syndrome) Mixed hyperlipidemia Moderate persistent asthma without complication ([facility]) Review of Systems Constitutional: Negative. HENT: Negative. Eyes: Negative. Respiratory: Negative. Cardiovascular: Negative. Genitourinary: Positive for frequency and pelvic pain. Pulling/heaviness from abdomen Musculoskeletal: Positive for back pain. Neurological: Negative. Psychiatric/Behavioral: Negative. Past Medical History: Past Medical History: Diagnosis Date Anxiety Cataract Chronic low back pain COPD (chronic obstructive pulmonary disease) ([facility]) Depression Diabetes mellitus ([facility]) GERD (gastroesophageal reflux disease) Glaucoma Hearing loss [...] by Nasal route daily. 16 g 5 Yusnbxpfbwp-Drtngamji-Pdalwn (TRELEGY ELLIPTA) 100-62.5-25 MCG/ACT AEROSOL POWDER, BREATH [...] was at least in part performed using [employer] speak and there may be some inherent flaws in this drum maker due to the nature of this program. KERI ROSARIO NP 02/01/2024 [facility]. documented in this encounter Plan of Treatment Upcoming Encounters Date Type Department Care Team (Late st Contact Info) Description 10/03/2024 11:00 AM STAFF ACCOUNTANT Office Visit [facility] Pulmonology Specialty Clinic - [address] [address] Nathan Baig MD [address] [place] [address] 11/14/2024 10:20 AM STAFF ACCOUNTANT Office Visit [facility] Multispecialty Care - [place] [address] [address] [place] [address] [place] [address] [place] [address] documented as of this encounter Procedures Procedure [...] Forbes MD, 02/03/2024 11:55 AM Keri Rosario CRUSHER AND BLENDER OPERATOR GENERAL IMAGING Final Resul t * [...] Forbes MD, 02/03/2024 11:55 AM Keri Rosario CRUSHER AND BLENDER OPERATOR GENERAL IMAGING Final Resul t * [...] 1.015 1.001 - 1.035 MG-[address], GERING BLOOD (U) NEGATIVE NEGATIVE MG-[address], GERING U PH 6.0 5.0 - 9.0 MG-[address], GERING PROTEIN (U) NEGATIVE NEGATIVE mg/dL MG-[address], GERING UROBILINOGEN 0.2 0.2 - 1.0 EU/dL = mg/dL MG-[address], GERING NITRITES NEGATIVE NEGATIVE MG/DL MG-[address], GERING LEUKOCYTES (U) NEGATIVE NEGATIVE MG-[address], GERING URINE SPECIMEN OBTAINED BY CLEAN CATCH PROCEDURE / Unknown 02/01/2024 us Keri Rosario CRUSHER AND BLENDER OPERATOR URINE ORDERABLES Final Resu lt MG-[address], [facility] [address] [facility] [address] [place] [address], documented in this encounter Visit Diagnoses Diagnosis Overactive bladder- Primary Hypertonicity of bladder Chronic bilateral low back pain with bilateral sciatica Fall (on) (from) unspecified stairs and steps, initial encounter documented in this encounter Additional Health Concerns Assessment Noted Time PHQ-9 Depression Total Score: 2 09/14/19 24 11:30 AM STAFF ACCOUNTANT documented as of this encounter Care Teams Budget Manager Relationship Specialty Start Date End Date Tracy Olivares MD [address] [facility] [address] [place] [address] PCP - General INTERNAL MEDICINE 01/02/21 Nathan Baig MD [address] [address] Consulting Physician Internal Medicine Pulmonary Disease 09/16/21 documented as of this encounter
--- OUTSIDE RECORDS SUMMARY | 2024-09-07 15:17 | XMS_ITS | Encounter Summary ---
Author Organization [facility] Address [address] [place] [address]. [place], [place] [address] [place] [address] Care Team Providers Care Trimming Machine Operator Name Role Phone Tracy Olivares MD Primary Care Provider [phone] Nathan Baig MD Unavailable [phone] Encounter Details Date Type Department Care [...] Info) Description 10/03/2024 11:00 AM REAL ESTATE SERVICES COORDINATOR Office Visit [facility] Medical Group Pulmonology Specialty Clinic - [address] [place] [address] Nathan Baig MD [address] [place] [address] 11/14/2024 10:20 AM REAL ESTATE SERVICES COORDINATOR Office Visit [facility] Medical Group Multispecialty Care - [address] [place] [address] [place] [address] [place] [address] documented as of this encounter Visit Diagnoses Not on filedocumented in this encounter Additional Health Concerns Assessment Noted Time PHQ-9 Depression Total Score: 16 023 3:44 PM CDT documented as of this encounter Care Teams Trimming Machine Operator Relationship Specialty Start Date End Date Tracy Olivares MD [address] [place] [address] PCP - General INTERNAL MEDICINE 01/02/21 Nathan Baig MD [address] [address] Consulting Physician Internal Medicine Pulmonary Disease 09/16/21 documented as of this encounter
--- OUTSIDE RECORDS SUMMARY | 2024-09-07 15:17 | XMS_ITS | Encounter Summary ---
Author Organization [facility] Address [address] [place] [address]. [place], [place] [address] [place] [address] Care Team Providers Care News Specialist Name Role Phone Tracy Olivares MD Primary Care Provider [phone] Nathan Baig MD Unavailable [phone] Encounter Details Date Type Department Care Team (Late st Contact Info) Description 05/01/2024 Therapy Plan [facility] Physical Therapy [address] [facility] [address] [place] [address] Ly Collado, PT [place], [place] [id number] Social History Tobacco Use Types Packs/Day Years [...] st Contact Info) Description 10/03/2024 11:00 AM ADVISORY SERVICES ASSOCIATE Office Visit [facility] Medical [facility] Pulmonology Specialty Clinic - [address] [address] Nathan Baig MD [address] [address] 11/14/2024 10:20 AM ADVISORY SERVICES ASSOCIATE Office Visit [facility] Multispecialty Care - [place] [address] [address] [place] [address] Tracy Olivares MD [address] [place] [address] documented as of this encounter Visit Diagnoses Not on filedocumented in this encounter Additional Health Concerns Assessment Noted Time PHQ-9 Depression Total Score: 2 09/14/19 24 11:30 AM ADVISORY SERVICES ASSOCIATE documented as of this encounter Care Teams News Specialist Relationship Specialty Start Date End Date Tracy Olivares MD [address] [place] [address] PCP - General INTERNAL MEDICINE 01/02/21 Nathna Baig MD [address] [address] Consulting Physician Internal Medicine Pulmonary Disease 09/16/21 documented as of this encounter
--- OUTSIDE RECORDS SUMMARY | 2024-09-07 15:17 | XMS_ITS | Encounter Summary ---
Author Organization [facility] Address [address] [place] [address]. [place], [place] [address] [place] [address] Care Team Providers Care Land Surveying Party Chief Name Role Phone Tracy Olivares MD Primary Care Provider [phone] Nathan Baig MD Unavailable [phone] Encounter Details Date Type Department Care [...] st Contact Info) Description 10/03/2024 11:00 AM HEAD ATHLETIC TRAINER Office Visit [facility] Medical Group Pulmonology Specialty Clinic - [place] [address] [address] [facility] [address] [place] [address] Nathan Baig MD [address] [place] [address] 11/14/2024 10:20 AM HEAD ATHLETIC TRAINER Office Visit [facility] Medical Group Multispecialty Care - [place] [address] [address] [place] [address] Tracy Olivares MD [address] [address] documented as of this encounter Visit Diagnoses Not on filedocumented in this encounter Additional Health Concerns Assessment Noted Time PHQ-9 Depression Total Score: 2 09/14/19 24 11:30 AM HEAD ATHLETIC TRAINER documented as of this encounter Care Teams Land Surveying Party Chief Relationship Specialty Start Date End Date Tracy Olivares MD [facility] [address] PCP - General INTERNAL MEDICINE 01/02/21 Nathan Baig MD [address] [address] Consulting Physician Internal Medicine Pulmonary Disease 09/16/21 documented as of this encounter
--- OUTSIDE RECORDS SUMMARY | 2024-09-07 15:17 | XMS_ITS | Encounter Summary ---
Author Organization [facility] Address [address] [place] [address]. [place] [address] Care Team Providers Care Insurance Representative Name Role Phone Tracy Olivares MD Primary Care Provider Nathan Baig MD Unavailable [phone] Reason for Referral * Consultation/Treatment (Routine) - Pending Review Specialty Diagnoses / Procedures Referred By Contoziel t Referred To Contact RHEUMATOLOGY Diagnoses Screening for rheumatoid arthritis Procedures OFFICE/OUTPATIENT [facility] MDM 30-44 MINUTES OFFICE/OUTPT VISIT,NEW,LEVL IV OFFICE/OUTPT VISIT,NEW,LEVL V OFFICE/OUTPT VISIT,EST,LEVL III OFFICE/OUTPT VISIT,EST,LEVL IV OFFICE/OUTPT VISIT,EST,LEVL V Tracy Olivares MD [address] [address] Phone: tel: [place]: [place] [address] [place] [address] Phone: tel: fax: Referral ID Status Reason Start Date Expiration Date Visits Requested Visits Authorized [id number] Pending Review Specialty Services 12/22/2023 12/21/2024 12 12 * Physical Medicine (Routine) - Pending Review Specialty Diagnoses / Procedures Referred By Contac t Referred To Contact PHYSICAL THERAPY / [facility] Physical Therapy Diagnoses Hip pain, bilateral Bilateral shoulder pain Procedures OFFICE/OUTPATIENT NEW LOW MDM 30-44 MINUTES OFFICE/OUTPT VISIT,NEW,LEVL IV OFFICE/OUTPT VISIT,NEW,LEVL V OFFICE/OUTPT VISIT,EST,LEVL III OFFICE/OUTPT VISIT,EST,LEVL IV OFFICE/OUTPT VISIT,EST,LEVL V Tracy Olivares MD [address] [address] Phone: tel: fax: [facility] Physical Therapy [address] [place] [address] Phone: tel: fax: Referral ID Status Reason Start Date Expiration Date Visits Requested Visits Authorized [id number] Pending Review Physical Therapy 12/16/2023 01/14/2025 12 12 Reason for Visit * Reason Comments Weight Problem Hip Pain States nerve pain Encounter Details Date Type Department Care Team (Latest Contact Info) Description 12/16/2023 11:00 AM CDT Office Visit [facility] Medical Group Multispecialty Care - [place] [address] [address] [place] [address] Tracy Olivares MD [address] [address] Weight Problem; Hip Pain (States nerve pain) [...] sent through Care Everywhere. * Chronic pain (Luxembourgish) documented in this encounter Progress Notes * [...] being relieved. She reports having been to [place] [facility] 12/09 due to inability to move [...] referral at this time because she joined [employer] and have lost 5lbs in a month [...] moderate episode of major depressive disorder ([facility]) Essential hypertension Gastroesophageal reflux disease Hearing loss Impaired glucose tolerance in obese Shoulder pain Chronic low back pain with bilateral sciatica Obesity Lumbar herniated disc FAISAL on CPAP Glaucoma Cataract Anxiety Knee pain Mixed hyperglyceridemia Prediabetes Other specified anemias RLS (restless legs syndrome) Mixed hyperlipidemia Moderate persistent asthma without complication ([facility]) Past Medical History: Diagnosis Date Anxiety Cataract Chronic low back pain COPD (chronic obstructive pulmonary disease) ([facility] HHS/HCC) Depression Diabetes mellitus ([facility]) GERD (gastroesophageal reflux disease) Glaucoma [...] DAILY NEEDED FOR HEARTBURN. 180 tablet 1 Hyinqpatzwa-Wlryiickb-Qvqcfv (TRELEGY ELLIPTA) 100-62.5-25 MCG/ACT AEROSOL POWDER, BREATH [...] the day of the encounter. This includes rsmj-xz-gtvw and hdb-vyti-ra-face time I provided on the day of [...] was at least in part performed using [employer] speak and there may be some inherent flaws in this nurse practitioner physician assistant due to the nature of this program. Tracy Olivares MD Internal Medicine [facility], [facility]. Cosigned by Tracy Olivares MD at 12/16/2023 2:13 PM CDT Associated attestation - Tracy Olivares MD - 12/16/2023 2:13 PM CDT I, Tracy Olivares MD have reviewed the notes ie the history, examination, assessment and plan of Student Nurse Practitioner Sadi Goodwin and agree with the major elements of notes, unless otherwise addended or documented. Tracy Olivares MD Internal Medicine [facility] Medical [facility], [facility]. documented in this encounter Plan of Treatment Upcoming Encounters Date Type Department Care Team (Late st Contact Info) Description 10/03/2024 11:00 AM FIRESTOPPER TECHNICIAN Office Visit [facility] Pulmonology Specialty Clinic - [address] [address] Nathan Baig MD [address] [place] [address] 11/14/2024 10:20 AM FIRESTOPPER TECHNICIAN Office Visit [facility] Multispecialty Care - [place] [address] [address] [place] [address] [place] [address] [place] [address] Scheduled Referrals Name Type Priority Associated Diagnoses [...] Total Score: 2 09/14/19 24 11:30 AM FIRESTOPPER TECHNICIAN documented as of this encounter Care Teams Insurance Representative Relationship Specialty Start Date End Date Tracy Olivares MD [address] [facility] [address] [place] [address] PCP - General INTERNAL MEDICINE 01/02/21 Nathan Baig MD [address] [address] Consulting Physician Internal Medicine Pulmonary Disease 09/16/21 documented as of this encounter
--- OUTSIDE RECORDS SUMMARY | 2024-09-07 15:17 | XMS_ITS | Encounter Summary ---
Author Organization [facility] Address [address] [place] [address]. [place] [address] [place] [address] Care Team Providers Care Polisher Dial Name Role Phone Tracy Olivares MD Primary Care Provider [phone] Nathan Baig MD Unavailable [phone] Reason for Visit * Reason Onset Date Comments Other 05/07/2024 Encounter Details Date Type Department Care Team (Late st Contact Info) Description 05/07/2024 Telephone [facility] Medical Group Multispecialty Care - [place] [address] [address] [place] [address] [place] [address] [place] [address] [address] [place] [address] Other Social History Tobacco Use [...] st Contact Info) Description 10/03/2024 11:00 AM ENROLLMENT MANAGEMENT MANAGER Office Visit [facility] Medical Group Pulmonology Specialty Clinic - [address] [address] Nathan Baig MD [address] [address] 11/14/2024 10:20 AM ENROLLMENT MANAGEMENT MANAGER Office Visit [facility] Multispecialty Care - [place] [address] [address] [place] [address] Tracy Olivares MD [address] [place] [address] documented as of this encounter Visit Diagnoses Not on filedocumented in this encounter Additional Health Concerns Assessment Noted Time PHQ-9 Depression Total Score: 2 09/14/19 24 11:30 AM ENROLLMENT MANAGEMENT MANAGER documented as of this encounter Care Teams Polisher Dial Relationship Specialty Start Date End Date Tracy Olivares MD [address] [place] [address] PCP - General INTERNAL MEDICINE 01/02/21 Nathan Baig MD 3 [facility] [address] [place] [address] Consulting Physician Internal Medicine Pulmonary Disease 09/16/21 documented as of this encounter
--- OUTSIDE RECORDS SUMMARY | 2024-09-07 15:17 | XMS_ITS | Encounter Summary ---
Author Organization [facility] Address [address] [place] [address]. [place], [place] [address] [place] [address] Care Team Providers Care Chef De Cuisine Name Role Phone Tracy Olivares MD Primary Care Provider Nathan Baig MD Unavailable [phone] Reason for Visit * Reason Comments [...] (Late Contact Info) Description 10/03/2024 11:00 AM GUARDIAN AD LITEM Office Visit [facility] Medical Group Pulmonology Specialty Clinic - [address] [place] [address] Nathan Baig MD [address] [place] [address] 11/14/2024 10:20 AM GUARDIAN AD LITEM Office Visit [facility] Medical Group Multispecialty Care - [place] [address] [address] [place] [address] Tracy Oilvares MD [facility] [address] [address] documented as of this encounter Procedures Procedure [...] Total Score: 2 09/14/19 24 11:30 AM GUARDIAN AD LITEM documented as of this encounter Care Teams Chef De Cuisine Relationship Specialty Start Date End Date Tracy Olivares MD [address] [place] [address] PCP - General INTERNAL MEDICINE 01/02/21 Nathan Baig MD [address] [address] Consulting Physician Internal Medicine Pulmonary Disease 09/16/21 documented as of this encounter
--- OUTSIDE RECORDS SUMMARY | 2024-09-07 15:17 | XMS_ITS | Encounter Summary ---
Author Organization [facility] Address [address] [place] [address]. [place], [place] [address] [place] [address] Care Team Providers Care Speech And Hearing Clinic Director Name Role Phone Tracy Olivares MD Primary Care Provider [phone] Nathan Baig MD Unavailable [phone] Reason for Visit * Reason Onset Date Comments Orders 05/08/2024 Encounter Details Date Type Department Care Team (Late Contact Info) Description 05/08/2024 Telephone [facility] Multispecialty Care - [place] [address] [address] [place], [place] [address] Tracy Olivares MD [address] [place] [address] Orders Social History Tobacco Use Types [...] (Late Contact Info) Description 10/03/2024 11:00 AM DIGITAL MEDIA PLANNER [facility] Pulmonology Specialty Clinic - [address] [place], [place] [address] Nathan Baig MD 3 [facility] [address] [place] [address] 11/14/2024 10:20 AM DIGITAL MEDIA PLANNER Office Visit [facility] Medical Group Multispecialty Care - [place] [address] [address] [place] [address] Tracy Olivares MD [address] [address] documented as of this encounter Visit Diagnoses Diagnosis Type 2 diabetes mellitus with hyperglycemia, without long-term current use of insulin ([facility])- Primary documented in this encounter Additional Health Concerns Assessment Noted Time PHQ-9 Depression Total Score: 2 09/14/19 24 11:30 AM DIGITAL MEDIA PLANNER documented as of this encounter Care Teams Speech And Hearing Clinic Director Relationship Specialty Start Date End Date Tracy Olivares MD [address] [place] [address] PCP - General INTERNAL MEDICINE 01/02/21 Nathan Baig MD 3 [facility] [address] [place] [address] Consulting Physician Internal Medicine Pulmonary Disease 09/16/21 documented as of this encounter
--- OUTSIDE RECORDS SUMMARY | 2024-09-07 15:17 | XMS_ITS | Encounter Summary ---
Author Organization [facility] Address [address] [place] [address]. [place], [place] [address] [place] [address] Care Team Providers Care City Mail Carrier Name Role Phone Tracy Olivares MD Primary Care Provider [phone] Nathan Baig MD Unavailable [phone] Reason for Visit * Reason Onset Date Comments Medication 03/27/2024 Encounter Details Date Type Department Care Team (Late Contact Info) Description 03/27/2024 Telephone [facility] Multispecialty Care - [place] [address] [address] [place], [place] [address] Tracy Olivares MD [address] [place] [id number] Medication Social History Tobacco Use Types Packs/Day [...] (Late Contact Info) Description 10/03/2024 11:00 AM HOME RESTORATION SERVICE CLEANER Office Visit [facility] Medical [facility] Pulmonology Specialty Clinic - [address] [place], [place] [address] Nathan Baig MD 3 [facility] [address] [place] [address] 11/14/2024 10:20 AM HOME RESTORATION SERVICE CLEANER Office Visit [facility] Medical Group Multispecialty Care - [place] [address] [address] [place] [address] Tracy Olivares MD [address] [address] documented as of this encounter Visit Diagnoses Diagnosis Type 2 diabetes mellitus with hyperglycemia, without long-term current use of insulin ([facility])- Primary documented in this encounter Additional Health Concerns Assessment Noted Time PHQ-9 Depression Total Score: 2 09/14/19 24 11:30 AM HOME RESTORATION SERVICE CLEANER documented as of this encounter Care Teams City Mail Carrier Relationship Specialty Start Date End Date Tracy Olivares MD [address] [place] [address] PCP - General INTERNAL MEDICINE 01/02/21 Nathan Baig MD 3 [facility] [address] [place] [address] Consulting Physician Internal Medicine Pulmonary Disease 09/16/21 documented as of this encounter
--- OUTSIDE RECORDS SUMMARY | 2024-09-07 15:17 | XMS_ITS | Encounter Summary ---
Author Organization [facility] Address [address] [place] [address]. [place] [id number] [place], [place] [id number] Care Team Providers Care Lumber Inspector Name Role Phone Tracy Olivares MD Primary Care Provider [phone] Nathan Baig MD Unavailable [phone] Reason for Visit * Reason Comments Joint Pain/Shoulder region Pain Hip/ Limb * Physical Medicine (Routine) - Pending Review Specialty Diagnoses / Procedures Referred By Heidi iverson Referred To Contact PHYSICAL THERAPY / [facility] Physical Therapy Diagnoses Hip pain, bilateral Bilateral shoulder pain Procedures OFFICE/OUTPATIENT NEW LOW MDM 30-44 MINUTES OFFICE/OUTPT VISIT,NEW,LEVL IV OFFICE/OUTPT VISIT,NEW,LEVL V OFFICE/OUTPT VISIT,EST,LEVL III OFFICE/OUTPT VISIT,EST,LEVL IV OFFICE/OUTPT VISIT,EST,LEVL V Tracy Olivares MD 1188 [facility] [address] [place] [address] Phone: tel: fax: [facility] Physical Therapy [address] [place] [address] Phone: tel: fax: Referral ID Status Reason Start Date Expiration Date Visits Requested Visits Authorized [id number] Pending Review Physical Therapy 12/16/2023 01/14/2025 12 12 Encounter Details Date Type Department Care Team (Latest Contact Info) Description 12/23/2023 11:00 AM CDT Office Visit [facility] Physical Therapy 1188 [facility] [address] [place], [place] [phone] Tracy Olivares MD 1188 [facility] [address] [place], [place] [id number] Ly Collado, [place] [address] Joint Pain/Shoulder region; Pain Hip/ Limb (/) [...] - 12/23/2023 11:00 AM CDT Access Code: [email or web address] URL: [email or web address] Date: 12/23/2023 Prepared by: Ly Collado Exercises - Supine Bridge with Mini Macedonian Ball Between Knees - 1 x daily [...] aid with reduced hip and back pain. Entry Level Electrician Goals: to be met at DC: Independent [...] st Contact Info) Description 10/03/2024 11:00 AM LABOR SERVICE REPRESENTATIVE Office Visit [facility] Medical [facility] Pul[facility]ty [facility] - [address] [address] Nathan Baig MD [address] [address] 11/14/2024 10:20 AM LABOR SERVICE REPRESENTATIVE Office Visit [facility] Multispecialty Care - [place] [address] [address] [place] [address] Tracy Olivares MD [address] [place] [address] documented as of this encounter Visit Diagnoses Diagnosis Chronic shoulder pain- Primary Pain in joint, shoulder region Hip pain Pain in joint, pelvic region and thigh OA (osteoarthritis) of shoulder Shoulder tendonitis documented in this encounter Additional Health Concerns Assessment Noted Time PHQ-9 Depression Total Score: 2 09/14/19 24 11:30 AM LABOR SERVICE REPRESENTATIVE documented as of this encounter Care Teams Lumber Inspector Relationship Specialty Start Date End Date Tracy Olivares MD [address] [place] [address] PCP - General INTERNAL MEDICINE 01/02/21 Nathan Baig MD [address] [address] Consulting Physician Internal Medicine Pulmonary Disease 09/16/21 documented as of this encounter
--- OUTSIDE RECORDS SUMMARY | 2024-09-07 15:17 | XMS_ITS | Encounter Summary ---
Author Organization [facility] - [facility] Address [address] [place] [address]. [place] [id number] [place] [address] Care Team Providers Care Glass Furnace Operator Name Role Phone Tracy Olivares MD Primary Care Provider [phone] Nathan Baig MD Unavailable [phone] Reason for Visit * Reason Comments Allied Health Visit Pt is here for lab w ork Encounter Details Date Type Department Care Team (Latest Contact Info) Description 03/23/2024 10:30 AM CDT Allied Health/Nurse Visit [facility] Medical Group Multispecialty Care - [place] [address] [address] [place] [address] [place] [address] [place] [address] 157 [place], [place] [phone] Allied Health Visit (Pt is here for [...] st Contact Info) Description 10/03/2024 11:00 AM EARLY LEARNING TEACHER Office Visit [facility] Medical Group Pulmonology Specialty Clinic - [address] [address] Nathan Baig MD 3 [facility] [address] [place] [address] 11/14/2024 10:20 AM EARLY LEARNING TEACHER Office Visit [facility] Multispecialty Care - [place] [address] [address] [place] [address] Tracy Olivares MD [address] [place] [address] documented as of this encounter Procedures Procedure Name Priority Date/Time Associated Diagnosis Comments VENIPUNC ARM DRAW Routine 03/23/2024 10:32 AM CDT Annual physical exam documented in this encounter Visit Diagnoses Diagnosis Annual physical exam- Primary Routine general medical examination at a health care facility documented in this encounter Additional Health Concerns Assessment Noted Time PHQ-9 Depression Total Score: 2 09/14/19 24 11:30 AM EARLY LEARNING TEACHER documented as of this encounter Care Teams Glass Furnace Operator Relationship Specialty Start Date End Date Tracy Olivares MD [address] [place] [address] PCP - General INTERNAL MEDICINE 01/02/21 Nathan Baig MD 3 [facility] [address] [place] [address] Consulting Physician Internal Medicine Pulmonary Disease 09/16/21 documented as of this encounter
--- OUTSIDE RECORDS SUMMARY | 2024-09-07 15:17 | XMS_ITS | Encounter Summary ---
Author Organization [facility] Address [address] [place] [address]. [place] [id number] [place], [place] [id number] Care Team Providers Care Jr. Java Developer Name Role Phone Tracy Olivares MD Primary Care Provider [phone] Nathan Baig MD Unavailable [phone] Reason for Referral * Consultation/Treatment (Routine) - Pending Review Specialty Diagnoses / Procedures Referred By Heidi iverson Referred To Contact PAIN MANAGEMENT Diagnoses Chronic bilateral low back pain with bilateral sciatica Procedures OFFICE/OUTPATIENT NEW LOW MDM 30-44 MINUTES OFFICE/OUTPT VISIT,NEW,LEVL IV OFFICE/OUTPT VISIT,NEW,LEVL V OFFICE/OUTPT VISIT,EST,LEVL III OFFICE/OUTPT VISIT,EST,LEVL IV OFFICE/OUTPT VISIT,EST,LEVL V Tracy Olivares MD [address] [place] [address] [place] [address] Phone: tel: fax: [facility] [address] [place] [address] [address] Phone: tel: fax: Referral ID Status Reason Start Date Expiration Date Visits Requested Visits Authorized [id number] Pending Review Specialty Services 02/22/2024 02/21/2025 99 [...] Description 02/22/2024 4:20 PM CDT Office Visit [facility] Medical Group Multispecialty Care - [place] [address] [address] [place] [address] Tracy Olivares MD 1188 [facility] 157 [place], [place] [phone] Follow Up; Back Pain (Pain ); Pelvic [...] Current moderate episode of major depressive disorder ([facility] HHS/HCC) Essential hypertension Gastroesophageal reflux disease Hearing loss Impaired glucose tolerance in obese Shoulder pain Chronic low back pain with bilateral sciatica Obesity Lumbar herniated disc FAISAL on CPAP Glaucoma Cataract Anxiety Knee pain Mixed hyperglyceridemia Prediabetes Other specified anemias RLS (restless legs syndrome) Mixed hyperlipidemia Moderate persistent asthma without complication ([facility]/HCC) Past Medical History: Diagnosis Date Anxiety Cataract Chronic low back pain COPD (chronic obstructive pulmonary disease) ([facility] HHS/HCC) Depression Diabetes mellitus ([facility] HHS/HCC) GERD (gastroesophageal reflux disease) Glaucoma Hearing [...] every morning before breakfast. 90 capsule 1 Ujqkogyqvxn-Pakzaizdm-Jrtjsc (TRELEGY ELLIPTA) 100-62.5-25 MCG/ACT AEROSOL POWDER, BREATH [...] the day of the encounter. This includes kjiv-cl-ithh and tnj-iyrm-dq-face time I provided on the day of [...] was at least in part performed using [employer] [facility] speak and there may be some inherent flaws in this distribution associate due to the nature of this program. Tracy Olivares MD Internal Medicine [facility], [facility]. documented in this encounter Plan of Treatment Upcoming Encounters Date Type Department Care Team (Late st Contact Info) Description 10/03/2024 11:00 AM FOUNDER CEO & PRESIDENT Office Visit [facility] Medical [facility] Pulmonology Specialty Clinic - [address] [address] Nathan Baig MD [address] [place] [address] 11/14/2024 10:20 AM FOUNDER CEO & PRESIDENT Office Visit [facility] Medical [facility] Multispecialty Care - [place] [address] [address] [place] [address] Tracy Olivares MD 1188 [facility] 157 [place] [address] Scheduled Referrals Name Type Priority Associated Diagnoses [...] AM CDT) RHEUMATOID FACTOR <10 <14 IU/mL [facility] 02/27/2024 10:4 5 AM CDT 02/28/2024 3:36 AM CDT Narrative Resulting Agency Comment Performing Organization Information: ?Site ID: [id number] ?Name: Brie Paul ?Address: [address] [id number] ?Director: Mahin Mckeon MD Tracy Olivares MD LABORATORY Final Result [facility] [employer] [facility] [address] [place] [address], documented in this encounter Visit Diagnoses Diagnosis [...] Total Score: 2 09/14/19 24 11:30 AM FOUNDER CEO & PRESIDENT documented as of this encounter Care Teams Jr. Java Developer Relationship Specialty Start Date End Date Tracy Olivares MD [address] [address] PCP - General INTERNAL MEDICINE 01/02/21 Nathan Baig MD [address] [address] Consulting Physician Internal Medicine Pulmonary Disease 09/16/21 documented as of this encounter
--- OUTSIDE RECORDS SUMMARY | 2024-09-07 15:17 | XMS_ITS | Encounter Summary ---
Author Organization [facility] Address [address] [place] [address]. [place], [place] [address] [place] [address] Care Team Providers Care Mortgage Closing Clerk Name Role Phone Tracy Olivares MD Primary Care Provider [phone] Nathan Baig MD Unavailable [phone] Reason for Visit * Reason Onset Date Comments Question 04/02/2024 Patient called i n inquiring about the contact information information that was given to her last week. Provided her with [employer] scheduling line of [phone] . Patient v/u. Encounter Details Date Type Department Care Team (Late st Contact Info) Description 04/02/2024 Telephone [facility] Medical Group Multispecialty Care - [place] [address] [address] [place] [address] Tracy Olivares MD [address] [place] [address] 157 [place] [address] Question (Patient called in inquiring about the contact information information that was given to her last week. Provided her with [employer] scheduling line of [phone] . Patient v/u.) Social History Tobacco Use [...] Provided her with Willie scheduling line of [phone] . Patient v/u. documented in this encounter Plan of Treatment Upcoming Encounters Date Type Department Care Team (Late st Contact Info) Description 10/03/2024 11:00 AM WIRE MESH GATE ASSEMBLER Office Visit [facility] Medical [facility] Pulmonology Specialty Clinic - [address] [address] Nathan Baig MD [address] [address] 11/14/2024 10:20 AM WIRE MESH GATE ASSEMBLER Office Visit [facility] Multispecialty Care - [place] [address] [address] [place] [address] Tracy Olivares MD [address] [place] [address] documented as of this encounter Visit Diagnoses Not on filedocumented in this encounter Additional Health Concerns Assessment Noted Time PHQ-9 Depression Total Score: 2 09/14/19 24 11:30 AM WIRE MESH GATE ASSEMBLER documented as of this encounter Care Teams Mortgage Closing Clerk Relationship Specialty Start Date End Date Tracy Olivares MD [address] [place] [address] PCP - General INTERNAL MEDICINE 01/02/21 Nathan Baig MD 3 [facility] [address] [place] [address] Consulting Physician Internal Medicine Pulmonary Disease 09/16/21 documented as of this encounter
--- OUTSIDE RECORDS SUMMARY | 2024-09-07 15:17 | XMS_ITS | Encounter Summary ---
Author Organization [facility] Address [address] [place] [address]. [place] [id number] [place], [place] [id number] Care Team Providers Care Wrapper Opener Name Role Phone Tracy Olivares MD Primary Care Provider [phone] Nathan Baig MD Unavailable [phone] Reason for Visit * Reason Comments Pain Hip/ Limb * Physical Medicine (Routine) - Pending Review Specialty Diagnoses / Procedures Referred By Heidi iverson Referred To Contact PHYSICAL THERAPY / [facility] Physical Therapy Diagnoses Hip pain, bilateral Bilateral shoulder pain Procedures OFFICE/OUTPATIENT NEW LOW MDM 30-44 MINUTES OFFICE/OUTPT VISIT,NEW,LEVL IV OFFICE/OUTPT VISIT,NEW,LEVL V OFFICE/OUTPT VISIT,EST,LEVL III OFFICE/OUTPT VISIT,EST,LEVL IV OFFICE/OUTPT VISIT,EST,LEVL V Tracy Olivares MD [address] [address] Phone: tel: fax: [facility] Physical Therapy [address] [place] [address] Phone: tel: fax: Referral ID Status Reason Start Date Expiration Date Visits Requested Visits Authorized [id number] Pending Review Physical Therapy 12/16/2023 01/14/2025 12 12 Encounter Details Date Type Department Care Team (Late st Contact Info) Description 02/13/2024 10:15 AM CDT Office Visit [facility] Physical Therapy 1188 [facility] [address] [place] [address] Tracy Olivares MD 1188 [facility] [address] [place] [address] Ashley Wright, PT 1 [place] [address] Pain Hip/ Limb Social History Tobacco Use [...] - 02/13/2024 10:15 AM CDT Access Code: [email or web address] URL: [email or web address] Date: 02/13/2024 Prepared by: Ashley Wright Exercises [...] and sister Hand Dominance: Right Current HEP: [id number] SUBJECTIVE Pt has had a lot of [...] OBJECTIVE Treatment provided today: Neuromuscular Re-education - 33235 Number of Minutes - 07760: held today Intervention: Supine and sitting diaphragmatic breathing. Attempted to use 5lb ankle weight on abdomen for tactile cue, although this was not effective Done to facilitate diaphragmatic movement of exercise Therapeutic Activities - 93498 Number of Minutes - 20121: 30 Intervention: Bed mobility training from supine <--> sit and sit <--> stand with use ofexhale during exertion to improve ease of bed mobility at home and decrease muscle tone/guarding. Intervention: Practice making bed with breathing Intervention: Sit to stand practice with breathing Self Care - 48094 Number of Minutes - 79718: 18 Education consisting of use of diaphragmatic breathing for stress management, including box breathing with visual aid. 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 See assessment for further information ASSESSMENT Heavy [...] st Contact Info) Description 10/03/2024 11:00 AM BILLING ASSOCIATE Office Visit [facility] Medical Group Pulmonology Specialty Clinic - [address] [address] Nathan Baig MD [address] [address] 11/14/2024 10:20 AM BILLING ASSOCIATE Office Visit [facility] Multispecialty Care - [place] [address] [address] [place] [address] Tracy Olivares MD [address] [place] [address] documented as of this encounter Visit Diagnoses Diagnosis Chronic shoulder pain- Primary Pain in joint, shoulder region Hip pain Pain in joint, pelvic region and thigh OA (osteoarthritis) of shoulder Shoulder tendonitis documented in this encounter Additional Health Concerns Assessment Noted Time PHQ-9 Depression Total Score: 2 09/14/19 24 11:30 AM BILLING ASSOCIATE documented as of this encounter Care Teams Wrapper Opener Relationship Specialty Start Date End Date Tracy Olivares MD [address] [place] [address] PCP - General INTERNAL MEDICINE 01/02/21 Nathan Baig MD 3 [facility] [address] [place] [address] Consulting Physician Internal Medicine Pulmonary Disease 09/16/21 documented as of this encounter
--- OUTSIDE RECORDS SUMMARY | 2024-09-07 15:17 | XMS_ITS | Encounter Summary ---
Author Organization [facility] Address [address] [place] [address]. [place], [place] [address] [place] [address] Care Team Providers Care Radio Tower Technician Name Role Phone Tracy Olivares MD Primary Care Provider [phone] Nathan Baig MD Unavailable [phone] Reason for Visit * Reason Comments Obstructive Sleep Apnea * Consultation/Treatment (Routine) - Closed Specialty Diagnoses / Procedures Referred By Heidi iverson Referred To Contact Internal Medicine Pulmonary Disease / [facility]EP [facility] RESPIRATORY [facility] Diagnoses FOLLOW UP Tracy Olivares MD [address] [place] [address] Phone: tel: fax: Nathan Baig MD [address] [address] Phone: tel: fax: Referral ID Status Reason Start Date Expiration Date V isits Requested Visits Authorized [id number] Closed Specialty Services 04/23/2022 04/23/2024 100 100 Encounter Details Date Type Department Care Team (Late st Contact Info) Description 09/23/2023 11:00 AM INCLINED RAILWAY OPERATOR Office Visit [facility] Medical Group Pulmonology Specialty Clinic - [address] [address] Nathan Baig MD 3 [facility] [address] [place], [place] [phone] Obstructive Sleep Apnea Social History Tobacco Use [...] Comments Blood Pressure 109/70 09/23/2023 10:42 AM INCLINED RAILWAY OPERATOR Pulse 86 09/23/2023 10:42 AM INCLINED RAILWAY OPERATOR Temperature 36.5 ??C (97.7 ??F) 09/23/2023 10:[address] Respiratory Rate 16 09/23/2023 10:42 AM INCLINED RAILWAY OPERATOR Oxygen Saturation 99% 09/23/2023 10:42 AM INCLINED RAILWAY OPERATOR RA Inhaled Oxygen Concentration - - Weight 129.3 kg (285 lb) 09/23/2023 10:42 AM INCLINED RAILWAY OPERATOR Height 160 cm (5' 3 ) 09/23/2023 10:42 AM INCLINED RAILWAY OPERATOR Body Mass Index 50.49 09/23/2023 10:42 AM INCLINED RAILWAY OPERATOR documented in this encounter Patient Instructions * Patient Instructions* Nathan Baig MD - 09/23/2023 11:00 AM INCLINED RAILWAY OPERATOR Continue Trelegy 1 puff daily Continue albuterol if needed Try to use your CPAP every single night Use distilled water There are ways to turn the humidity up on the machine, if you are unable to figure it out please call the medical equipment company so they can help you Follow-up with me in 6 months INED RAILWAY OPERATOR documented in this encounter Progress Notes * Nathan Baig MD - 09/23/2023 11:00 AM CST [facility] PULMONARY MEDICINE History Chief Complaint [...] pain COPD (chronic obstructive pulmonary disease) ([facility]/HCC) ([facility]) Depression Diabetes mellitus ([facility]/HCC) ([facility]) GERD (gastroesophageal reflux disease) Glaucoma [...] by Nasal route daily. 16 g 5 Udgvgyiscms-Qwborvfwp-Trrvkb (TRELEGY ELLIPTA) 100-62.5-25 MCG/ACT AEROSOL POWDER, BREATH [...] 6 months (around 03/23/2024). Nathan Baig MD INED RAILWAY OPERATOR documented in this encounter Plan of Treatment Upcoming Encounters Date Type Department Care Team (Late st Contact Info) Description 10/03/2024 11:00 AM INCLINED RAILWAY OPERATOR Office Visit [facility] Medical [facility] Pulmonology Specialty Clinic - [address] [address] Nathan Baig MD 3 [facility] [place] [address] [place] [address] 11/14/2024 10:20 AM INCLINED RAILWAY OPERATOR Office Visit [facility] Multispecialty Care - [place] [address] [address] [place] [address] Tracy Olivares MD [address] [place] [address] documented as of this encounter Visit Diagnoses Diagnosis FAISAL on CPAP- Primary Obstructive sleep apnea (adult) (pediatric) Moderate persistent asthma without complication ([facility]) Unspecified asthma Class 3 severe obesity due to excess calories without serious comorbidity with body mass index (BMI) of 45.0 to 49.9 in adult ([facility]) Seasonal allergies Allergic rhinitis, cause unspecified Nicotine dependence, cigarettes, in remission documented in this encounter Additional Health Concerns Assessment Noted Time PHQ-9 Depression Total Score: 2 09/14/19 24 11:30 AM INCLINED RAILWAY OPERATOR documented as of this encounter Care Teams Radio Tower Technician Relationship Specialty Start Date End Date Tracy Olivares MD [address] [place] [address] PCP - General INTERNAL MEDICINE 01/02/21 Nathan Baig MD 3 [facility] [place] [address] [place] [address] Consulting Physician Internal Medicine Pulmonary Disease 09/16/21 documented as of this encounter
--- OUTSIDE RECORDS SUMMARY | 2024-09-07 15:17 | XMS_ITS | Encounter Summary ---
Author Organization [facility] Address [address] [place] [address]. [place] [id number] [place] [address] Care Team Providers Care Pan Dumper Name Role Phone Tracy Olivares MD Primary Care Provider [phone] Nathan Baig MD Unavailable [phone] Reason for Visit * Reason Comments Joint Pain/Shoulder region * Physical Medicine (Routine) - Pending Review Specialty Diagnoses / Procedures Referred By Heidi iverson Referred To Contact PHYSICAL THERAPY / [facility] Physical Therapy Diagnoses Hip pain, bilateral Bilateral shoulder pain Procedures OFFICE/OUTPATIENT NEW LOW MDM 30-44 MINUTES OFFICE/OUTPT VISIT,NEW,LEVL IV OFFICE/OUTPT VISIT,NEW,LEVL V OFFICE/OUTPT VISIT,EST,LEVL III OFFICE/OUTPT VISIT,EST,LEVL IV OFFICE/OUTPT VISIT,EST,LEVL V Tracy Olivares MD [address] [address] Phone: tel: fax: [facility] Physical Therapy [address] [place] [address] Phone: tel: fax: Referral ID Status Reason Start Date Expiration Date Visits Requested Visits Authorized [id number] Pending Review Physical Therapy 12/16/2023 01/14/2025 12 12 Encounter Details Date Type Department Care Team (Latest Contact Info) Description 03/16/2024 2:15 PM CDT Office Visit [facility] Physical Therapy 1188 [facility] 157 [place] [address] Tracy Olivares MD 1188 [facility] 157 [place] [address] Ly [place], [place] [address] Joint Pain/Shoulder region Social History Tobacco Use [...] - 03/16/2024 2:15 PM CDT Access Code: [email or web address] URL: [email or web address] Date: 03/16/2024 Prepared by: Ly Collado Exercises [...] and sister Hand Dominance: Right Current HEP: [id number] SUBJECTIVE Saw specialist regarding her bladder issues and is starting physical therapy in [place] for it on 03/27. Hips doing much [...] OBJECTIVE Treatment provided today: Therapeutic Exercise - 78063 Number of Minutes - 46159: 25 Exercise: NuStep level 6 x5 min [...] extremity strength and endurance Neuromuscular Re-education - 15820 Number of Minutes - 10132: 15 Intervention: educated regarding constipation and bowel [...] core activation with activity. Therapeutic Activities - 45453 Number of Minutes - 25698: held today Intervention: held Standing mini squats [...] stand practice with breathing Self Care - 65099 Number of Minutes - 74154: held Education consisted of reinforcement of previous [...] Contact Info) Description 10/03/2024 11:00 AM MAINTENANCE MGR Office Visit [facility] Medical Group [facility] - [place] [address] [facility] [address] [place] [address] Nathan Baig MD [address] [place] [address] [address] [place] [address] 11/14/2024 10:20 AM MAINTENANCE MGR [facility] - [place] [address] [address] [place] [address] Tracy Olivares MD [address] [address] documented as of this encounter Visit Diagnoses Diagnosis Chronic shoulder pain- Primary Pain in joint, shoulder region Hip pain Pain in joint, pelvic region and thigh OA (osteoarthritis) of shoulder Shoulder tendonitis documented in this encounter Additional Health Concerns Assessment Noted Time PHQ-9 Depression Total Score: 2 09/14/19 24 11:30 AM MAINTENANCE MGR documented as of this encounter Care Teams Pan Dumper Relationship Specialty Start Date End Date Tracy Olivares MD [address] [place] [address] PCP - General INTERNAL MEDICINE 01/02/21 Nathan Baig MD [address] [address] Consulting Physician Internal Medicine Pulmonary Disease 09/16/21 documented as of this encounter
--- OUTSIDE RECORDS SUMMARY | 2024-09-07 15:17 | XMS_ITS | Encounter Summary ---
Author Organization [facility] Address [address] [place] [address]. [place] [id number] [place] [address] Care Team Providers Care Lathe Puller Name Role Phone Tracy Olivares MD Primary Care Provider [phone] Nathan Baig MD Unavailable [phone] Reason for Visit * Reason Onset Date Comments Refill Request 02/20/2024 Encounter Details Date Type Department Care Team (Late st Contact Info) Description 02/20/2024 Telephone [facility] Medical Group Multispecialty Care - [place] [address] [address] [place] [address] [place] [address] [place] [address] 157 [place] [address] Refill Request Social History Tobacco [...] like this sent to the following pharmacy: [facility]/pharmacy #[id number] - [place], [place] - [address] [facility] [address] [facility] [address] The next office visit: Next visit with TRACY OLIVARES in FAMILY PRACTICE is on: 03/20/2024 [facility] The last office visit: Last visit with TRACY OLIVARES in FAMILY PRACTICE was on: [facility] documented in this encounter Plan of Treatment Upcoming Encounters Date Type Department Care Team (Late st Contact Info) Description 10/03/2024 11:00 AM CENTER MEDICAL DIRECTOR Office Visit [facility] Medical Group Pulmonology Specialty Clinic - [address] [address] Nathan Baig MD [address] [place] [address] 11/14/2024 10:20 AM CENTER MEDICAL DIRECTOR Office Visit [facility] Multispecialty Care - [place] [address] [address] [place] [address] Tracy Olivares MD [facility] [address] documented as of this encounter Visit Diagnoses Diagnosis Gastroesophageal reflux disease without esophagitis Esophageal reflux documented in this encounter Additional Health Concerns Assessment Noted Time PHQ-9 Depression Total Score: 2 09/14/19 24 11:30 AM CENTER MEDICAL DIRECTOR documented as of this encounter Care Teams Lathe Puller Relationship Specialty Start Date End Date Tracy Olivares MD [address] [place] [address] PCP - General INTERNAL MEDICINE 01/02/21 Nathan Baig MD [address] [address] Consulting Physician Internal Medicine Pulmonary Disease 09/16/21 documented as of this encounter
--- OUTSIDE RECORDS SUMMARY | 2024-09-07 15:17 | XMS_ITS | Encounter Summary ---
Author Organization [facility] Address [address] [place] [address]. [place], [place] [address] [place] [address] Care Team Providers Care Wire Steward Name Role Phone Tracy Olivares MD Primary Care Provider [phone] Nathan Baig MD Unavailable [phone] Marisel Mancini RN Unavailable [phone] Encounter Details Date Type Department Care Team (Latest Contact Info) Description 12/16/2023 UUSEE Message Enc [facility] Medical [facility] Multispecialty Care - [place] [address] [facility] [address] [place] [address] [facility] Provider referral to rheumatology Social History [...] st Contact Info) Description 10/03/2024 11:00 AM HEEL GOUGER Office Visit [facility] Medical [facility] Pulmonology Specialty Clinic - [place] [address] [address] [facility] [address] [place] [address] Nathan Baig MD 3 [facility] 5000 [place] [address] 11/14/2024 10:20 AM HEEL GOUGER Office Visit [facility] Medical Group Multispecialty Care - [place] [address] [address] [place] [address] Tracy Olivares MD [address] [place] [address] documented as of this encounter Visit Diagnoses Not on filedocumented in this encounter Additional Health Concerns Assessment Noted Time PHQ-9 Depression Total Score: 2 09/14/19 24 11:30 AM HEEL GOUGER documented as of this encounter Care Teams Wire Steward Relationship Specialty Start Date End Date Tracy Olivares MD [address] [place] [address] PCP - General INTERNAL MEDICINE 01/02/21 Nathan Baig MD 3 [facility] 5000 [place] [address] Consulting Physician Internal Medicine Pulmonary Disease 09/16/21 Marisel Mancini, RN 3051 [place], [place] [address] School Lunch Monitor (Ambulatory) REGISTERED NURSE 06/28/24 08/07/24 documented as of this encounter
--- OUTSIDE RECORDS SUMMARY | 2024-09-07 15:17 | XMS_ITS | Encounter Summary ---
Author Organization [facility] Address [address] [place] [address]. [place] [id number] [place], [place] [address] Care Team Providers Care Robot Programmer Name Role Phone Tracy Olivares MD Primary Care Provider [phone] Nathan Baig MD Unavailable [phone] Reason for Visit * Reason Comments Pain Hip/ Limb * Physical Medicine (Routine) - Pending Review Specialty Diagnoses / Procedures Referred By Heidi iverson Referred To Contact PHYSICAL THERAPY / [facility] Physical Therapy Diagnoses Hip pain, bilateral Bilateral shoulder pain Procedures OFFICE/OUTPATIENT NEW LOW MDM 30-44 MINUTES OFFICE/OUTPT VISIT,NEW,LEVL IV OFFICE/OUTPT VISIT,NEW,LEVL V OFFICE/OUTPT VISIT,EST,LEVL III OFFICE/OUTPT VISIT,EST,LEVL IV OFFICE/OUTPT VISIT,EST,LEVL V Tracy Olivares MD [address] [address] Phone: tel: fax: [facility] Physical Therapy [address] [place] [address] Phone: tel: fax: Referral ID Status Reason Start Date Expiration Date Visits Requested Visits Authorized [id number] Pending Review Physical Therapy 12/16/2023 01/14/2025 12 12 Encounter Details Date Type Department Care Team (Late st Contact Info) Description 01/16/2024 11:00 AM CDT Office Visit [facility] Physical Therapy [address] [facility] [address] [place] [address] Tracy Olivares MD 1188 [facility] 157 [place], [place] [address] OrtizchikaWhitAshley B, PT 1 [place] [address] Pain Hip/ Limb Social History Tobacco Use [...] OBJECTIVE Treatment provided today: Neuromuscular Re-education - 48225 Number of Minutes - 80461: 10 Intervention: Supine and sitting diaphragmatic breathing. Attempted to use 5lb ankle weight on abdomen for tactile cue, although this was not effective Done to facilitate diaphragmatic movement of exercise Therapeutic Activities - 73573 Number of Minutes - 94306: 15 Intervention: Bed mobility training from supine <--> sit and sit <--> stand with use ofexhale during exertion to improve ease of bed mobility at home and decrease muscle tone/guarding. Self Care - 58383 Number of Minutes - 84673: 31 Education consisting of use of diaphragmatic breathing for stress management, including box breathing with visual aid. 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 See assessment for further information ASSESSMENT Advised [...] st Contact Info) Description 10/03/2024 11:00 AM MECHANIC FOREMAN Office Visit [facility] Medical Group Pulmonology Specialty Clinic - [address] [address] Nathan Baig MD [address] [address] 11/14/2024 10:20 AM MECHANIC FOREMAN Office Visit [facility] Medical Group Multispecialty Care - [place] [address] [address] [place] [address] Tracy Olivares MD [facility] [address] [address] documented as of this encounter Visit Diagnoses Diagnosis Chronic shoulder pain- Primary Pain in joint, shoulder region Hip pain Pain in joint, pelvic region and thigh OA (osteoarthritis) of shoulder Shoulder tendonitis documented in this encounter Additional Health Concerns Assessment Noted Time PHQ-9 Depression Total Score: 2 09/14/19 24 11:30 AM MECHANIC FOREMAN documented as of this encounter Care Teams Robot Programmer Relationship Specialty Start Date End Date Tracy Olivares MD [address] [place] [address] PCP - General INTERNAL MEDICINE 01/02/21 Nathan Baig MD [address] [address] Consulting Physician Internal Medicine Pulmonary Disease 09/16/21 documented as of this encounter
--- OUTSIDE RECORDS SUMMARY | 2024-09-07 15:17 | XMS_ITS | Encounter Summary ---
Author Organization [facility] Address [address] [place] [address]. [place], [place] [address] [place] [address] Care Team Providers Care Roof Foreman Name Role Phone Tracy Olivares MD Primary Care Provider [phone] Nathan Baig MD Unavailable [phone] Encounter Details Date Type Department Care [...] st Contact Info) Description 10/03/2024 11:00 AM AUTOMOBILE SERVICE STATION ATTENDANT Office Visit [facility] Medical Group Pulmonology Specialty Clinic - [place] [address] [address] [facility] [address] [place] [address] Nathan Baig MD [address] [place] [address] 11/14/2024 10:20 AM AUTOMOBILE SERVICE STATION ATTENDANT Office Visit [facility] Medical Group Multispecialty Care - [place] [address] [address] [place] [address] Tracy Olivares MD [address] [address] documented as of this encounter Visit Diagnoses Not on filedocumented in this encounter Additional Health Concerns Assessment Noted Time PHQ-9 Depression Total Score: 2 09/14/19 24 11:30 AM AUTOMOBILE SERVICE STATION ATTENDANT documented as of this encounter Care Teams Roof Foreman Relationship Specialty Start Date End Date Tracy Olivares MD [facility] [address] PCP - General INTERNAL MEDICINE 01/02/21 Nathan Baig MD [address] [address] Consulting Physician Internal Medicine Pulmonary Disease 09/16/21 documented as of this encounter
--- OUTSIDE RECORDS SUMMARY | 2024-09-07 15:17 | XMS_ITS | Encounter Summary ---
Author Organization [facility] Address [address] [place] [address]. [place] [address] [place], [place] [address] Care Team Providers Care Complex Director Name Role Phone Tracy Olivares MD Primary Care Provider [phone] Nathan Baig MD Unavailable [phone] Reason for Visit * Reason Comments Pain Hip/ Limb * Physical Medicine (Routine) - Pending Review Specialty Diagnoses / Procedures Referred By Heidi iverson Referred To Contact PHYSICAL THERAPY / [facility] Physical Therapy Diagnoses Hip pain, bilateral Bilateral shoulder pain Procedures OFFICE/OUTPATIENT NEW LOW MDM 30-44 MINUTES OFFICE/OUTPT VISIT,NEW,LEVL IV OFFICE/OUTPT VISIT,NEW,LEVL V OFFICE/OUTPT VISIT,EST,LEVL III OFFICE/OUTPT VISIT,EST,LEVL IV OFFICE/OUTPT VISIT,EST,LEVL V Tracy Olivares MD [address] [address] Phone: tel: fax: [facility] Physical Therapy [address] [place] [address] Phone: tel: fax: Referral ID Status Reason Start Date Expiration Date Visits Requested Visits Authorized [id number] Pending Review Physical Therapy 12/16/2023 01/14/2025 12 12 Encounter Details Date Type Department Care Team (Late st Contact Info) Description 02/27/2024 9:30 AM CDT Office Visit [facility] Physical Therapy 1188 [facility] [address] [place] [address] Tracy Olivares MD 1188 [facility] [address] [place], [place] [address] Ashley Wright, PT 1 [place] [address] Pain Hip/ Limb Social History Tobacco Use [...] and sister Hand Dominance: Right Current HEP: [id number] SUBJECTIVE Pt continues to have intense pain, [...] OBJECTIVE Treatment provided today: Therapeutic Exercise - 29679 Number of Minutes - 89916: 29 Exercise: NuStep level 6 x5 min (seat at 12, arms at 13) Exercise: Sidestepping in // bars 2 laps x2 Exercise: Standing hip abduction on floor 2x8 bilaterally Exercise: Standing with lean on elevated mat 2x8 hip extension bilaterally Exercise: Sitting LAQ without resistance x10 bilaterally Done to improve lower extremity strength and endurance Neuromuscular Re-education - 27880 Number of Minutes - 53976: held today Intervention: Supine and sitting diaphragmatic breathing. Attempted to use 5lb ankle weight on abdomen for tactile cue, although this was not effective Done to facilitate diaphragmatic movement of exercise Therapeutic Activities - 48925 Number of Minutes - 99370: 4 Intervention: Standing mini squats on floor 2x10 low ROM Intervention: held Bed mobility training from supine <--> sit and sit <--> stand with use of exhale during exertion to improve ease of bed mobility at home and decrease muscle tone/guarding. Intervention: held Practice making bed with breathing Intervention: held Sit to stand practice with breathing Self Care - 51161 Number of Minutes - 54944: 10 Education consisted of reinforcement of previous [...] st Contact Info) Description 10/03/2024 11:00 AM ATV MECHANIC Office Visit [facility] Medical [facility] Pulmonology Specialty Clinic - [address] [address] Nathan Baig MD [address] [address] 11/14/2024 10:20 AM ATV MECHANIC Office Visit [facility] Multispecialty Care - [place] [address] [address] [place] [address] Tracy Olivares MD [address] [place] [address] documented as of this encounter Visit Diagnoses Diagnosis Chronic shoulder pain- Primary Pain in joint, shoulder region Hip pain Pain in joint, pelvic region and thigh OA (osteoarthritis) of shoulder Shoulder tendonitis documented in this encounter Additional Health Concerns Assessment Noted Time PHQ-9 Depression Total Score: 2 09/14/19 24 11:30 AM ATV MECHANIC documented as of this encounter Care Teams Complex Director Relationship Specialty Start Date End Date Tracy Olivares MD [address] [place] [address] PCP - General INTERNAL MEDICINE 01/02/21 Nathan Baig MD 3 [facility] [address] [place] [address] Consulting Physician Internal Medicine Pulmonary Disease 09/16/21 documented as of this encounter
--- OUTSIDE RECORDS SUMMARY | 2024-09-07 15:17 | XMS_ITS | Encounter Summary ---
Author Organization [facility] Address [address] [place] [address]. [place], [place] [address] [place] [address] Care Team Providers Care Shipper Name Role Phone Tracy Olivares MD Primary Care Provider [phone] Nathan Baig MD Unavailable Reason for Visit * Reason Comments Sleep [...] Upcoming Encounters Date Type Department Care Team ([facility] Contact Info) Description 10/03/2024 11:00 AM PLATING OPERATOR Office Visit [facility] Medical Group Pulmonology Specialty Clinic - [address] [place] [address] Nathan Baig MD [address] [place] [address] [address] [place] [address] 11/14/2024 10:20 AM PLATING OPERATOR Office Visit [facility] Medical Group Multispecialty Care - [place] [address] [address] [place] [address] Tracy Olivares MD [facility]8 [address] [address] documented as of this encounter Procedures Procedure [...] Total Score: 2 09/14/19 24 11:30 AM PLATING OPERATOR documented as of this encounter Care Teams Shipper Relationship Specialty Start Date End Date Tracy Olivares MD [address] [address] PCP - General INTERNAL MEDICINE 01/02/21 Nathan Baig MD [address] [address] Consulting Physician Internal Medicine Pulmonary Disease 09/16/21 documented as of this encounter
--- OUTSIDE RECORDS SUMMARY | 2024-09-07 15:17 | XMS_ITS | Encounter Summary ---
Author Organization [facility] Address [address] [place] [address]. [place], [place] [address] [place] [address] Care Team Providers Care Pulp Plant Supervisor Name Role Phone Tracy Olivares MD Primary Care Provider [phone] Nathan Baig MD Unavailable Reason for Visit * Reason Onset Date Comments Results 02/08/2024 Encounter Details Date Type Department Care Team (Late st Contact Info) Description 02/08/2024 Telephone [facility] Medical Group Multispecialty Care [place] [address] [place] [address] [address] [place] [address] Tracy Olivares MD 1188 [facility] 157 [place] [address] Results Social History Tobacco Use [...] st Contact Info) Description 10/03/2024 11:00 AM DELI CUTTER SLICER Office Visit [facility] Medical [facility] Pulmonology Specialty Clinic - [address] [address] Nathan Baig MD 3 [facility] [address] [place] [address] 11/14/2024 10:20 AM DELI CUTTER SLICER Office Visit [facility] Multispecialty Care - [place] [address] [address] [place] [address] Tracy Olivares MD [address] [place] [address] documented as of this encounter Visit Diagnoses Not on filedocumented in this encounter Additional Health Concerns Assessment Noted Time PHQ-9 Depression Total Score: 2 09/14/19 24 11:30 AM DELI CUTTER SLICER documented as of this encounter Care Teams Pulp Plant Supervisor Relationship Specialty Start Date End Date Tracy Olivares MD [address] [place] [address] PCP - General INTERNAL MEDICINE 01/02/21 Nathan Baig MD 3 [facility] [address] [place] [address] Consulting Physician Internal Medicine Pulmonary Disease 09/16/21 documented as of this encounter
--- OUTSIDE RECORDS SUMMARY | 2024-09-07 15:17 | XMS_ITS | Encounter Summary ---
Author Organization [facility] Address [address] [place] [address]. [place], [place] [address] [place] [address] Care Team Providers Care Sap Business Objects Developer Name Role Phone Tracy Olivares MD Primary Care Provider [phone] Nathan Baig MD Unavailable [phone] Encounter Details Date Type Department Care [...] Contact Info) Description 10/03/2024 11:00 AM CHIEF HOSPITAL ADMINISTRATOR Office Visit [facility] Medical Group Pulmonology Specialty Clinic - [place] [address] [address] [facility] [address] [place] [address] Nathan Baig MD [address] [place] [address] 11/14/2024 10:20 AM CHIEF HOSPITAL ADMINISTRATOR Office Visit [facility] Medical Group Multispecialty Care - [place] [address] [address] [place] [address] Tracy Olivares MD [address] [address] documented as of this encounter Visit Diagnoses Not on filedocumented in this encounter Additional Health Concerns Assessment Noted Time PHQ-9 Depression Total Score: 2 09/14/19 24 11:30 AM CHIEF HOSPITAL ADMINISTRATOR documented as of this encounter Care Teams Sap Business Objects Developer Relationship Specialty Start Date End Date Tracy Olivares MD [facility]8 [address] [address] PCP - General INTERNAL MEDICINE 01/02/21 Nathan Baig MD [address] [address] Consulting Physician Internal Medicine Pulmonary Disease 09/16/21 documented as of this encounter
--- OUTSIDE RECORDS SUMMARY | 2024-09-07 15:17 | XMS_ITS | Encounter Summary ---
Author Organization [facility] Address [address] [place] [address]. [place], [place] [address] [place] [address] Care Team Providers Care Table Worker Name Role Phone Tracy Olivares MD Primary Care Provider [phone] Nathan Baig MD Unavailable [phone] Reason for Visit * Reason Comments [...] st Contact Info) Description 10/03/2024 11:00 AM CHOKER HOOKER Office Visit [facility] Medical Group Pulmonology Specialty Clinic - [address] [place] [address] Nathan Baig MD [address] [place] [address] 11/14/2024 10:20 AM CHOKER HOOKER Office Visit [facility] Medical Group Multispecialty Care - [place] [address] [address] [place] [address] Tracy Olivares MD [facility]8 [address] [address] documented as of this encounter Procedures Procedure [...] Total Score: 2 09/14/19 24 11:30 AM CHOKER HOOKER documented as of this encounter Care Teams Table Worker Relationship Specialty Start Date End Date Tracy Olivares MD [address] [place] [address] PCP - General INTERNAL MEDICINE 01/02/21 Nathan Baig MD [address] [address] Consulting Physician Internal Medicine Pulmonary Disease 09/16/21 documented as of this encounter
--- OUTSIDE RECORDS SUMMARY | 2024-09-07 15:17 | XMS_ITS | Encounter Summary ---
Author Organization [facility] Address [address] [place] [address]. [place], [place] [address] [place] [address] Care Team Providers Care Public Health Internship Name Role Phone Tracy Olivares MD Primary Care Provider [phone] Nathan Baig MD Unavailable Reason for Visit * Reason Onset Date Comments Lab Results 04/24/2024 Encounter Details Date Type Department Care Team (Late st Contact Info) Description 04/24/2024 Telephone [facility] Medical Group Multispecialty Care [place] [address] [address] [place] [address] [place] [address] [place] [address] 157 [place] [address] Lab Results Social History Tobacco [...] Contact Info) Description 10/03/2024 11:00 AM CONTACT LENS MOLDER Office Visit [facility] Medical [facility] - [address] [address] Nathan Baig MD [address] [address] 11/14/2024 10:20 AM CONTACT LENS MOLDER Office Visit [facility] Multispecialty Care - [place] [address] [address] [place] [address] Tracy Olivares MD [address] [place] [address] documented as of this encounter Visit Diagnoses Not on filedocumented in this encounter Additional Health Concerns Assessment Noted Time PHQ-9 Depression Total Score: 2 09/14/19 24 11:30 AM CONTACT LENS MOLDER documented as of this encounter Care Teams Public Health Internship Relationship Specialty Start Date End Date Tracy Olivares MD [address] [place] [address] PCP - General INTERNAL MEDICINE 01/02/21 Nathan Baig MD [address] [address] Consulting Physician Internal Medicine Pulmonary Disease 09/16/21 documented as of this encounter
--- OUTSIDE RECORDS SUMMARY | 2024-09-07 15:17 | XMS_ITS | Encounter Summary ---
Author Organization [facility] Address [address] [place] [address]. [place], [place] [address] [place] [address] Care Team Providers Care Certified Pharmacist Assistant Name Role Phone Tracy Olivares MD Primary Care Provider [phone] Nathan Baig MD Unavailable [phone] Encounter Details Date Type Department Care [...] st Contact Info) Description 10/03/2024 11:00 AM RISK MANAGEMENT SPECIALIST Office Visit [facility] Medical Group Pulmonology Specialty Clinic - [place] [address] [address] [facility] [address] [place] [address] Nathan Baig MD [address] [place] [address] 11/14/2024 10:20 AM RISK MANAGEMENT SPECIALIST Office Visit [facility] Medical Group Multispecialty Care - [place] [address] [address] [facility] [address] [place] [address] Tracy Olivares MD 1188 [facility] 157 [place] [address] documented as of this encounter Visit Diagnoses Not on filedocumented in this encounter Additional Health Concerns Assessment Noted Time PHQ-9 Depression Total Score: 2 09/14/19 24 11:30 AM RISK MANAGEMENT SPECIALIST documented as of this encounter Care Teams Certified Pharmacist Assistant Relationship Specialty Start Date End Date Tracy Olivares MD 1188 [facility] 157 [place] [address] PCP - General INTERNAL MEDICINE 01/02/21 Nathan Baig MD [address] [address] Consulting Physician Internal Medicine Pulmonary Disease 09/16/21 documented as of this encounter
--- OUTSIDE RECORDS SUMMARY | 2024-09-07 15:17 | XMS_ITS | Encounter Summary ---
Author Organization [facility] Address [address] [place] [address]. [place], [place] [address] [place] [address] Care Team Providers Care Care Transitions Manager Name Role Phone Tracy Olivares MD Primary Care Provider Nathan Baig MD Unavailable [phone] Reason for Visit * Reason Comments Sinus Problem Pt is here sinus iss ues patient was tested for flu and covid at urgent care it was negative Encounter Details Date Type Department Care Team (Latest Contact Info) Description 08/26/2023 1:00 PM MARKETING AUTOMATION SPECIALIST Office Visit [facility] Medical Group Multispecialty Care - [place] [address] [address] [place] [address] Tracy Olivares MD 1188 [facility] 157 [place], [place] [address] Sinus Problem (Pt is here sinus issues [...] Comments Blood Pressure 138/88 08/26/2023 1:00 PM MARKETING AUTOMATION SPECIALIST Pulse 73 08/26/2023 1:00 PM MARKETING AUTOMATION SPECIALIST Temperature 37 ??C (98.6 ??F) 08/26/2023 1:00 PM MARKETING AUTOMATION SPECIALIST Respiratory Rate 18 08/26/2023 1:00 PM MARKETING AUTOMATION SPECIALIST Oxygen Saturation 98% 08/26/2023 1:00 PM MARKETING AUTOMATION SPECIALIST Inhaled Oxygen Concentration - - Weight 129 kg (284 lb 6.4 oz) 08/26/2023 1:00 PM MARKETING AUTOMATION SPECIALIST Height 161.3 cm (5' 3.5 ) 08/26/2023 1:00 PM MARKETING AUTOMATION SPECIALIST Body Mass Index 49.59 08/26/2023 1:00 PM MARKETING AUTOMATION SPECIALIST documented in this encounter Patient Instructions * Attachments The following attachments cannot be sent through Care Everywhere. * Sinusitis Discharge Instructions, Adult (Greenlandic) documented in this encounter Progress Notes * [...] back pain COPD (chronic obstructive pulmonary disease) ([facility]/HCC) ([facility]) Depression Diabetes mellitus ([facility]/HCC) ([facility]) GERD (gastroesophageal reflux disease) Glaucoma Hearing loss [...] by Nasal route daily. 16 g 5 Wenxyzbsxgs-Pkydquzuv-Pkhqyf (TRELEGY ELLIPTA) 100-62.5-25 MCG/ACT AEROSOL POWDER, BREATH [...] the day of the encounter. This includes wcxy-ya-vuun and hqd-bwbt-vo-face time I provided on the day of [...] was at least in part performed using [employer] speak and there may be some inherent flaws in this integration software engineer due to the nature of this program. Tracy Olivares MD Internal Medicine [facility], [facility]. ETING AUTOMATION SPECIALIST documented in this encounter Plan of Treatment Upcoming Encounters Date Type Department Care Team (Late st Contact Info) Description 10/03/2024 11:00 AM MARKETING AUTOMATION SPECIALIST Office Visit [facility] Medical [facility] Pulmonology Specialty Clinic - [address] [address] Nathan Baig MD 3 [facility] [address] [place] [address] 11/14/2024 10:20 AM MARKETING AUTOMATION SPECIALIST Office Visit [facility] Multispecialty Care - [place] [address] [address] [place] [address] Tracy Olivares MD [facility] [address] documented as of this encounter Visit Diagnoses Diagnosis Acute maxillary sinusitis, recurrence not specified- Primary documented in this encounter Additional Health Concerns Assessment Noted Time PHQ-9 Depression Total Score: 16 023 3:44 PM CDT documented as of this encounter Care Teams Care Transitions Manager Relationship Specialty Start Date End Date Tracy Olivares MD [address] [place] [address] PCP - General INTERNAL MEDICINE 01/02/21 Nathan Baig MD 3 [facility] 5000 [place] [address] Consulting Physician Internal Medicine Pulmonary Disease 09/16/21 documented as of this encounter
--- OUTSIDE RECORDS SUMMARY | 2024-09-07 15:17 | XMS_ITS | Encounter Summary ---
Author Organization [facility] Address [address] [place] [address]. [place], [place] [address] [place] [address] Care Team Providers Care Hat Cleaner Name Role Phone Tracy Olivares MD Primary Care Provider [phone] Nathan Baig MD Unavailable [phone] Encounter Details Date Type Department Care [...] st Contact Info) Description 10/03/2024 11:00 AM CARTON MACHINE OPERATOR Office Visit [facility] Medical Group Pulmonology Specialty Clinic - [address] [place] [address] Nathan Baig MD [address] [place] [address] 11/14/2024 10:20 AM CARTON MACHINE OPERATOR Office Visit [facility] Medical Group Multispecialty Care - [address] [place] [address] Tracy Olivares MD [address] [place] [address] documented as of this encounter Visit Diagnoses Not on filedocumented in this encounter Additional Health Concerns Assessment Noted Time PHQ-9 Depression Total Score: 2 09/14/19 24 11:30 AM CARTON MACHINE OPERATOR documented as of this encounter Care Teams Hat Cleaner Relationship Specialty Start Date End Date Tracy Olivares MD [address] [place] [address] PCP - General INTERNAL MEDICINE 01/02/21 Nathan Baig MD [address] [address] Consulting Physician Internal Medicine Pulmonary Disease 09/16/21 documented as of this encounter
--- OUTSIDE RECORDS SUMMARY | 2024-09-07 15:17 | XMS_ITS | Encounter Summary ---
Author Organization [facility] Address [address] [place] [address]. [place] [address] [place], [place] [address] Care Team Providers Care Circular Gang Saw Operator Name Role Phone Tracy Olivares MD Primary Care Provider [phone] Nathan Baig MD Unavailable [phone] Reason for Visit * Reason Comments Pain Hip/ Limb * Physical Medicine (Routine) - Pending Review Specialty Diagnoses / Procedures Referred By Heidi iverson Referred To Contact PHYSICAL THERAPY / [facility] Physical Therapy Diagnoses Hip pain, bilateral Bilateral shoulder pain Procedures OFFICE/OUTPATIENT NEW LOW MDM 30-44 MINUTES OFFICE/OUTPT VISIT,NEW,LEVL IV OFFICE/OUTPT VISIT,NEW,LEVL V OFFICE/OUTPT VISIT,EST,LEVL III OFFICE/OUTPT VISIT,EST,LEVL IV OFFICE/OUTPT VISIT,EST,LEVL V Tracy Olivares MD [address] [address] Phone: tel: fax: [facility] Physical Therapy [address] [place] [address] Phone: tel: fax: Referral ID Status Reason Start Date Expiration Date Visits Requested Visits Authorized [id number] Pending Review Physical Therapy 12/16/2023 01/14/2025 12 12 Encounter Details Date Type Department Care Team (Late st Contact Info) Description 03/05/2024 9:30 AM CDT Office Visit [facility] Physical Therapy [address] [place] [address] Ly Collado, [place] [address] Pain Hip/ Limb Social History Tobacco Use [...] and sister Hand Dominance: Right Current HEP: [id number] SUBJECTIVE Left arm hurting more today but [...] OBJECTIVE Treatment provided today: Therapeutic Exercise - 07979 Number of Minutes - 75621: 20 Exercise: NuStep level 6 x5 min [...] extremity strength and endurance Neuromuscular Re-education - 34311 Number of Minutes - 30177: 15 Intervention: Supine elevated some to aide [...] with hips and back. Therapeutic Activities - 94887 Number of Minutes - 56777: 10 Intervention: held Standing mini squats on [...] stand practice with breathing Self Care - 50477 Number of Minutes - 25576: held Education consisted of reinforcement of previous [...] st Contact Info) Description 10/03/2024 11:00 AM FILTRATION OPERATOR Office Visit [facility] Medical [facility] Pulmonology Specialty Clinic - [address] [address] Nathan Baig MD [address] [place] [address] 11/14/2024 10:20 AM FILTRATION OPERATOR Office Visit [facility] Multispecialty Care - [place] [address] [address] [place] [address] Tracy Olivares MD [address] [place] [address] documented as of this encounter Visit Diagnoses Diagnosis Chronic shoulder pain- Primary Pain in joint, shoulder region Hip pain Pain in joint, pelvic region and thigh OA (osteoarthritis) of shoulder Shoulder tendonitis documented in this encounter Additional Health Concerns Assessment Noted Time PHQ-9 Depression Total Score: 2 09/14/19 24 11:30 AM FILTRATION OPERATOR documented as of this encounter Care Teams Circular Gang Saw Operator Relationship Specialty Start Date End Date Tracy Olivares MD [address] [place] [address] PCP - General INTERNAL MEDICINE 01/02/21 Nathan Baig MD [address] [address] Consulting Physician Internal Medicine Pulmonary Disease 09/16/21 documented as of this encounter
--- OUTSIDE RECORDS SUMMARY | 2024-09-07 15:17 | XMS_ITS | Encounter Summary ---
Author Organization [facility] Address [address] [place] [address]. [place] [id number] [place] [address] Care Team Providers Care Pipe Roller Name Role Phone Tracy Olivares MD Primary Care Provider [phone] Nathan Baig MD Unavailable [phone] Reason for Visit * Reason Onset Date Comments Results 02/28/2024 Encounter Details Date Type Department Care Team (Late st Contact Info) Description 02/28/2024 Telephone [facility] Medical Group Multispecialty Care - [place] [address] [address] [place] [address] [place] [address] [place] [address] 157 [place] [address] Results Social History Tobacco Use [...] st Contact Info) Description 10/03/2024 11:00 AM RUG SCRATCHER Office Visit [facility] Medical [facility] Pulmonology Specialty Clinic - [address] [address] Nathan Baig MD [address] [address] 11/14/2024 10:20 AM RUG SCRATCHER Office Visit [facility] Multispecialty Care - [place] [address] [address] [place] [address] Tracy Olivares MD [facility] [place] [address] documented as of this encounter Visit Diagnoses Not on filedocumented in this encounter Additional Health Concerns Assessment Noted Time PHQ-9 Depression Total Score: 2 09/14/19 24 11:30 AM RUG SCRATCHER documented as of this encounter Care Teams Pipe Roller Relationship Specialty Start Date End Date Tracy Olivares MD [address] [place] [address] PCP - General INTERNAL MEDICINE 01/02/21 Nathan Baig MD [address] [address] Consulting Physician Internal Medicine Pulmonary Disease 09/16/21 documented as of this encounter
--- OUTSIDE RECORDS SUMMARY | 2024-09-07 15:17 | XMS_ITS | Encounter Summary ---
Author Organization [facility] Address [address] [place] [address]. [place], [place] [address] [place] [address] Care Team Providers Care Life Insurance Sales Name Role Phone Tracy Olivares MD Primary Care Provider [phone] Nathan Baig MD Unavailable [phone] Encounter Details Date Type Department Care [...] st Contact Info) Description 10/03/2024 11:00 AM POTTERY DECORATION DESIGNER Office Visit [facility] Medical Group Pulmonology Specialty Clinic - [place] [address] [address] [facility] [address] [place] [address] Nathan Baig MD [address] [place] [address] 11/14/2024 10:20 AM POTTERY DECORATION DESIGNER Office Visit [facility] Medical Group Multispecialty Care - [place] [address] [address] [facility] [address] [place] [address] Tracy Olivares MD 1188 [facility] 157 [place] [address] documented as of this encounter Visit Diagnoses Not on filedocumented in this encounter Additional Health Concerns Assessment Noted Time PHQ-9 Depression Total Score: 2 09/14/19 24 11:30 AM POTTERY DECORATION DESIGNER documented as of this encounter Care Teams Life Insurance Sales Relationship Specialty Start Date End Date Tracy Olivares MD 1188 [facility] 157 [place] [address] PCP - General INTERNAL MEDICINE 01/02/21 Nathan Baig MD [address] [address] Consulting Physician Internal Medicine Pulmonary Disease 09/16/21 documented as of this encounter
--- OUTSIDE RECORDS SUMMARY | 2024-09-07 15:17 | XMS_ITS | Encounter Summary ---
Author Organization [facility] Address [address] [place] [address]. [place], [place] [address] [place] [address] Care Team Providers Care Automation And Controls Manager Name Role Phone Tracy Olivares MD Primary Care Provider [phone] Nathan Baig MD Unavailable [phone] Encounter Details Date Type Department Care [...] st Contact Info) Description 10/03/2024 11:00 AM MORNING NEWS ANCHOR Office Visit [facility] Medical Group Pulmonology Specialty Clinic - [place] [address] [address] [facility] [address] [place] [address] Nathan Baig MD [address] [place] [address] 11/14/2024 10:20 AM MORNING NEWS ANCHOR Office Visit [facility] Medical Group Multispecialty Care - [place] [address] [address] [facility] [address] [place] [address] Tracy Olivares MD 1188 [facility] 157 [place] [address] documented as of this encounter Visit Diagnoses Not on filedocumented in this encounter Additional Health Concerns Assessment Noted Time PHQ-9 Depression Total Score: 2 09/14/19 24 11:30 AM MORNING NEWS ANCHOR documented as of this encounter Care Teams Automation And Controls Manager Relationship Specialty Start Date End Date Tracy Olivares MD 1188 [facility] 157 [place] [address] PCP - General INTERNAL MEDICINE 01/02/21 Nathan Baig MD [address] [address] Consulting Physician Internal Medicine Pulmonary Disease 09/16/21 documented as of this encounter
--- OUTSIDE RECORDS SUMMARY | 2024-09-07 15:17 | XMS_ITS | Encounter Summary ---
Author Organization [facility] Address [address] [place] [address]. [place] [address] [place] [address] Care Team Providers Care Superintendent Electric Power Name Role Phone Tracy Olivares MD Primary Care Provider [phone] Nathan Baig MD Unavailable [phone] Marisel Mancini RN Unavailable [phone] Encounter Details Date Type Department Care Team (Late Contact Info) Description 03/14/2024 [employer] Message Enc [facility] Multispecialty Care - [place] [address] [place] [address] Alesia Rosario, BANKRUPTCY LAW SPECIALIST [address] [place] [address] call Social History Tobacco Use Types Packs/Day Years Used Date Smoking Tobacco: Former Cigarettes Smokeless Tobacco: Never Comments:Counseled by Dr. Sharon uprcell. Alcohol Use Standard Drinks/Week Comments Not Currently [...] (Late Contact Info) Description 10/03/2024 11:00 AM AMMONIA NITRATE OPERATOR Office Visit [facility] Medical [facility] Pulmonology Specialty Clinic - [address] [address] Nathan Baig MD [address] [address] 11/14/2024 10:20 AM AMMONIA NITRATE OPERATOR Office Visit [facility] Medical Group Multispecialty Care - [place] [address] [address] [place] [address] Tracy Olivares MD [facility] [address] [address] documented as of this encounter Visit Diagnoses Not on filedocumented in this encounter Additional Health Concerns Assessment Noted Time PHQ-9 Depression Total Score: 2 09/14/19 24 11:30 AM AMMONIA NITRATE OPERATOR documented as of this encounter Care Teams Superintendent Electric Power Relationship Specialty Start Date End Date Tracy Olivares MD [address] [place] [address] PCP - General INTERNAL MEDICINE 01/02/21 Nathan Baig MD [address] [address] Consulting Physician Internal Medicine Pulmonary Disease 09/16/21 Marisel Mancini RN [address] [place] [address] Electrical And Instrumentation Manager (Ambulatory) REGISTERED NURSE 06/28/24 08/07/24 documented as of this encounter
--- OUTSIDE RECORDS SUMMARY | 2024-09-07 15:17 | XMS_ITS | Encounter Summary ---
Author Organization [facility] Address [address] [place] [address]. [place] [id number] Care Team Providers Care Cloth Bleaching Range Back Tender Name Role Phone Tracy Olivares MD Primary Care Provider [phone] Nathan Baig MD Unavailable [phone] Reason for Referral * Consultation (Urgent) - Closed Specialty Diagnoses / Procedures Referred By Heidi iverson Referred To Contact OBGYN Diagnoses Pelvic pain syndrome Procedures OFFICE/OUTPATIENT NEW LOW MDM 30-44 MINUTES OFFICE/OUTPT VISIT,NEW,LEVL IV OFFICE/OUTPT VISIT,NEW,LEVL V OFFICE/OUTPT VISIT,EST,LEVL III OFFICE/OUTPT VISIT,EST,LEVL IV OFFICE/OUTPT VISIT,EST,LEVL V Tracy Olivares MD 1185 [facility] 157 [place] [address] Phone: tel: fax: Carlos Macias MD [facility] [address] [place] [address] [address] [place] [address] Phone: tel: fax: Referral ID Status Reason Start Date Expiration Date V isits Requested Visits Authorized [id number] Closed Specialty Services 12/13/2023 12/12/2024 99 99 Scheduling Instructions She is sceduled with [employer] on 01/10/2024. Dx: R10.2. Reason for Visit * Reason Onset Date Comments Referral 12/13/2023 Encounter Details Date Type Department Care Team (Late Contact Info) Description 12/13/2023 Telephone [facility] Medical [facility] Multispecialty Care - [address] [address] Tracy Olivares MD [address] [address] Referral Social History Tobacco Use Types Packs/Day [...] Contact Info) Description 10/03/2024 11:00 AM HEAD OF GEOGRAPHY Office Visit [facility] Pulmonology Specialty Clinic - [address] [address] Nathan Baig MD [address] [place] [address] 11/14/2024 10:20 AM HEAD OF GEOGRAPHY Office Visit [facility] Medical [facility] Multispecialty Care - [address] [address] Tracy Olivares MD [address] [address] Scheduled Referrals Name Type Priority Associated Diagnoses Orde r Schedule Ambulatory referral to Obstetrics/Gynecology (OTHER) Referral Routine Pelvic pain syndrome Ordered: 12/13/2023 documented as of this encounter Visit Diagnoses Diagnosis Pelvic pain syndrome- Primary Pelvic congestion syndrome documented in this encounter Additional Health Concerns Assessment Noted Time PHQ-9 Depression Total Score: 2 09/14/19 24 11:30 AM HEAD OF GEOGRAPHY documented as of this encounter Care Teams Cloth Bleaching Range Back Tender Relationship Specialty Start Date End Date Tracy Olivares MD 1188 [facility] 157 [place] [address] PCP - General INTERNAL MEDICINE 01/02/21 Nathan Baig MD [address] [address] Consulting Physician Internal Medicine Pulmonary Disease 09/16/21 documented as of this encounter
--- OUTSIDE RECORDS SUMMARY | 2024-09-07 15:17 | XMS_ITS | Encounter Summary ---
Author Organization [facility] - [facility] Address [address] [place] [address]. [place] [id number] [place] [address] Care Team Providers Care Store Receiving Specialist Name Role Phone Tracy Olivares MD Primary Care Provider [phone] Nathan Baig MD Unavailable [phone] Reason for Visit * Reason Comments Follow Up Pt is here today for f/u Anxiety Depression Encounter Details Date Type Department Care Team (Latest Contact Info) Description 09/14/2023 10:40 AM CARD GRINDER HELPER Office Visit [facility] Medical Group Multispecialty Care - [place] [address] [address] [place] [address] Tracy Olivares MD [address] [place] [address] 157 [place], [place] [id number] Follow Up (Pt is here today for [...] Comments Blood Pressure 136/76 09/14/2023 10:53 AM CARD GRINDER HELPER Pulse 74 09/14/2023 10:53 AM CARD GRINDER HELPER Temperature 36.5 ??C (97.7 ??F) 09/14/2023 1 0:53 AM CARD GRINDER HELPER Respiratory Rate 18 09/14/2023 10:5 3 AM CARD GRINDER HELPER Oxygen Saturation 100% 09/14/2023 10: 53 AM CARD GRINDER HELPER Inhaled Oxygen Concentration - - Weight 132.2 kg (291 lb 6.4 oz) 024 10:53 AM CARD GRINDER HELPER Height 161.3 cm (5' 3.5 ) 09/14/2023 10 :53 AM CARD GRINDER HELPER Body Mass Index 50.81 09/14/2023 10:53 AM CARD GRINDER HELPER documented in this encounter Patient Instructions * Patient Instructions* Tracy Olivares MD - 09/14/2023 10:40 AM CARD GRINDER HELPER Follow up January 2024 for your physical and chronic medical issues- come fasting. Please get your RSV and Shingles vaccine from your local pharmacy. Stop januvia- vegetable picker jardiance. GRINDER HELPER GRINDER HELPER * Attachments The following attachments cannot be sent through Care Everywhere. * Depression Discharge Instructions, Adult (Citizen [place]) documented in this encounter Progress Notes * [...] psychiatry or therapy. Watns to switch to [facility] from [facility] for coverage with new insurance. Problem List Patient Active Problem List Diagnosis Current moderate episode of major depressive disorder ([facility]/HCC) Essential hypertension Gastroesophageal reflux disease Hearing loss Impaired glucose tolerance in obese Shoulder pain Chronic low back pain with bilateral sciatica Obesity Lumbar herniated disc FAISAL on CPAP Glaucoma Cataract Anxiety Knee pain Pulmonary emphysema (HHS/HCC) ([facility]) Mixed hyperglyceridemia Prediabetes Other specified anemias RLS (restless legs syndrome) Mixed hyperlipidemia Past Medical History: Diagnosis Date Anxiety Cataract Chronic low back pain COPD (chronic obstructive pulmonary disease) (HHS/HCC) ([facility]) Depression Diabetes mellitus (HHS/HCC) ([facility]) GERD (gastroesophageal reflux disease) Glaucoma Hearing loss [...] daily as neededfor Heartburn. 180 tablet 1 Ohgvkbuhrez-Rdpmfajvz-Zrcjlo (TRELEGY ELLIPTA) 100-62.5-25 MCG/ACT AEROSOL POWDER, BREATH [...] the day of the encounter. This includes nacd-ap-scwp and dny-fkmx-ot-face time I provided on the day of [...] was at least in part performed using [employer] and there may be some inherent flaws in this paper bag inspector due to the nature of this program. Tracy Olivares MD Internal Medicine [facility], [facility]. GRINDER HELPER documented in this encounter Plan of Treatment Upcoming Encounters Date Type Department Care Team (Late st Contact Info) Description 10/03/2024 11:00 AM CARD GRINDER HELPER Office Visit [facility] Medical [facility] Pulmonology Specialty Clinic - [address] [address] Nathan Baig MD [address] [place] [address] 11/14/2024 10:20 AM CARD GRINDER HELPER Office Visit [facility] Medical Group Multispecialty Care - [place] [address] [address] [place] [address] Tracy Olivares MD [address] [place] [address] 157 [place] [address] documented as of this encounter Visit Diagnoses Diagnosis Prediabetes- Primary Other abnormal glucose Impaired glucose tolerance in obese Other abnormal glucose Moderate episode of recurrent major depressive disorder ([facility]) Anxiety Anxiety state, unspecified documented in this encounter Additional Health Concerns Assessment Noted Time PHQ-9 Depression Total Score: 2 09/14/19 24 11:30 AM CARD GRINDER HELPER documented as of this encounter Care Teams Store Receiving Specialist Relationship Specialty Start Date End Date Tracy Olivares MD [address] [address] PCP - General INTERNAL MEDICINE 01/02/21 Nathan Baig MD [address] [address] Consulting Physician Internal Medicine Pulmonary Disease 09/16/21 documented as of this encounter
--- OUTSIDE RECORDS SUMMARY | 2024-09-07 15:17 | XMS_ITS | Encounter Summary ---
Author Organization [facility] Address [address] [place] [address]. [place], [place] [address] [place] [address] Care Team Providers Care Pipe Fitter Soft Copper Name Role Phone Tracy Olivares MD Primary Care Provider [phone] Nathan Baig MD Unavailable [phone] Reason for Visit * Reason Comments MRI (SCAN) Encounter Details Date Type Department Care Team (Latest Contact Info) Description 03/12/2024 Scan HEALTH INFO SRVCS Scanned, Doc Med Group MRI (SCAN) Social History Tobacco Use Types Packs/Day Years Used Date Smoking Tobacco: Former Cigarettes Smokeless Tobacco: Never Comments:Counseled by Dr. Sharon purclel. Alcohol Use Standard Drinks/Week Comments Not Currently [...] st Contact Info) Description 10/03/2024 11:00 AM JAVA J2EE APPLICATION DEVELOPER Office Visit [facility] Medical Group Pulmonology Specialty Clinic - [address] [place] [address] Nathan Baig MD [address] [place] [address] 11/14/2024 10:20 AM JAVA J2EE APPLICATION DEVELOPER Office Visit [facility] Multispecialty Care - [place] [address] [address] [place] [address] Tracy Olivares MD [facility] [address] documented as of this encounter Procedures Procedure [...] Total Score: 2 09/14/19 24 11:30 AM JAVA J2EE APPLICATION DEVELOPER documented as of this encounter Care Teams Pipe Fitter Soft Copper Relationship Specialty Start Date End Date Tracy Olivares MD [address] [place] [address] PCP - General INTERNAL MEDICINE 01/02/21 Nathan Baig MD [address] [address] Consulting Physician Internal Medicine Pulmonary Disease 09/16/21 documented as of this encounter
--- OUTSIDE RECORDS SUMMARY | 2024-09-07 15:17 | XMS_ITS | Encounter Summary ---
Author Organization [facility] - [facility] Address [address] [place] [address]. [place], [place] [address] [place] [address] Care Team Providers Care Pie Maker Name Role Phone Tracy Olivares MD Primary Care Provider [phone] Nathan Baig MD Unavailable [phone] Reason for Visit * Reason Onset Date Comments Results 02/10/2024 Encounter Details Date Type Department Care Team (Late st Contact Info) Description 02/10/2024 Telephone [facility] Medical Group Multispecialty Care - [place] [address] [address] [place] [address] Tracy Olivares MD 1188 [facility] 157 [place] [address] Results Social History Tobacco Use [...] st Contact Info) Description 10/03/2024 11:00 AM PETROL TANKER DRIVER Office Visit [facility] Medical [facility] Pulmonology Specialty Clinic - [address] [address] Nathan Baig MD [address] [address] 11/14/2024 10:20 AM PETROL TANKER DRIVER Office Visit [facility] Multispecialty Care - [place] [address] [address] [place] [address] Tracy Olivares MD [facility] [address] [address] documented as of this encounter Visit Diagnoses Not on filedocumented in this encounter Additional Health Concerns Assessment Noted Time PHQ-9 Depression Total Score: 2 09/14/19 24 11:30 AM PETROL TANKER DRIVER documented as of this encounter Care Teams Pie Maker Relationship Specialty Start Date End Date Tracy Olivares MD [address] [place] [address] PCP - General INTERNAL MEDICINE 01/02/21 Nathan Baig MD [address] [address] Consulting Physician Internal Medicine Pulmonary Disease 09/16/21 documented as of this encounter
--- OUTSIDE RECORDS SUMMARY | 2024-09-07 15:18 | XMS_ITS | Encounter Summary ---
Author Organization [facility] Address [address] [place] [address]. [place], [place] [address] [place] [address] Care Team Providers Care Sponsorship Manager Name Role Phone Tracy Olivares MD Primary Care Provider [phone] Nathan Baig MD Unavailable [phone] Encounter Details Date Type Department Care [...] Contact Info) Description 10/03/2024 11:00 AM MANAGER ONCOLOGY Office Visit [facility] Medical Group Pulmonology Specialty Clinic - [address] [place] [address] Nathan Baig MD [address] [address] 11/14/2024 10:20 AM MANAGER ONCOLOGY Office Visit [facility] Medical Group Multispecialty Care - [place] [address] [address] [place] [address] Tracy Olivares MD [address] [address] documented as of this encounter Visit Diagnoses Not on filedocumented in this encounter Additional Health Concerns Assessment Noted Time PHQ-9 Depression Total Score: 11 01/07/ 023 1:30 PM CDT documented as of this encounter Care Teams Sponsorship Manager Relationship Specialty Start Date End Date Tracy Olivares MD [address] [place] [address] PCP - General INTERNAL MEDICINE 01/02/21 Nathan Baig MD [address] [facility] [address] [place] [address] Consulting Physician Internal Medicine Pulmonary Disease 09/16/21 documented as of this encounter
--- OUTSIDE RECORDS SUMMARY | 2024-09-07 15:18 | XMS_ITS | Encounter Summary ---
Author Organization [facility] Address [address] [place] [address]. [place], [place] [address] [place] [address] Care Team Providers Care Printed Circuit Designer Name Role Phone Tracy Olivares MD Primary Care Provider [phone] Nathan Baig MD Unavailable [phone] Encounter Details Date Type Department Care [...] st Contact Info) Description 10/03/2024 11:00 AM OVENS SUPERVISOR Office Visit [facility] Medical Group Pulmonology Specialty Clinic - [address] [place] [address] Nathan Baig MD [address] [place] [address] 11/14/2024 10:20 AM OVENS SUPERVISOR Office Visit [facility] Medical Group Multispecialty Care - [address] [place] [address] Tracy Olivares MD [address] [place] [address] documented as of this encounter Visit Diagnoses Not on filedocumented in this encounter Additional Health Concerns Assessment Noted Time PHQ-9 Depression Total Score: 11 023 1:30 PM CDT documented as of this encounter Care Teams Printed Circuit Designer Relationship Specialty Start Date End Date Tracy Olivares MD [address] [place] [address] PCP - General INTERNAL MEDICINE 01/02/21 Nathan Baig MD [address] [address] Consulting Physician Internal Medicine Pulmonary Disease 09/16/21 documented as of this encounter
--- OUTSIDE RECORDS SUMMARY | 2024-09-07 15:18 | XMS_ITS | Encounter Summary ---
Author Organization [facility] Address [address] [place] [address]. [place], [place] [address] [place] [address] Care Team Providers Care Director Inbound Sales Name Role Phone Tracy Olivares MD Primary Care Provider [phone] Nathan Baig MD Unavailable Reason for Visit * Reason Comments CT (SCAN) Image (SCAN) Lab (SCAN) Encounter Details Date Type Department Care Team ([facility] Contact Info) Description 08/07/2022 Scan HEALTH [...] Upcoming Encounters Date Type Department Care Team ([facility] Contact Info) Description 10/03/2024 11:00 AM RN SURGICAL Office Visit [facility] Medical Group Pulmonology Specialty Clinic - [address] [place] [address] Nathan Baig MD [address] [place] [address] [place] [address] 11/14/2024 10:20 AM RN SURGICAL Office Visit [facility] Medical Group Multispecialty Care - [place] [facility] [facility] [address] [place] [address] Tracy Olivares MD 1188 [facility] [address] [place] [address] documented as of this encounter Procedures Procedure Name Priority Date/Time Associated Diagnosis Comments CT GENERIC 08/07/2022 OUTSIDE LAB (SCAN ORDER) 08/07/2022 OUTSIDE LAB (SCAN ORDER) 08/07/2022 OUTSIDE LAB (SCAN ORDER) 08/07/2022 IMAGE GENERIC 08/07/2022 documented in this encounter Results * OUTSIDE LAB (SCAN) (08/07/2022) 08/07/2022 [facility] Scanned SCANNING Final Resu lt * OUTSIDE LAB (SCAN) (08/07/2022) 08/07/2022 us [facility] Scanned SCANNING Final Resu lt [...] as of this encounter Care Teams Director Inbound Sales Relationship Specialty Start Date End Date Tracy Olivares MD 1188 [facility] [address] [place] [address] PCP - General INTERNAL MEDICINE 01/02/21 Nathan Baig MD [address] [address] Consulting Physician Internal Medicine Pulmonary Disease 09/16/21 documented as of this encounter
--- OUTSIDE RECORDS SUMMARY | 2024-09-07 15:18 | XMS_ITS | Encounter Summary ---
Author Organization [facility] - [facility] Address [address] [place] [address]. [place], [place] [address] [place] [address] Care Team Providers Care Relay Adjuster Name Role Phone Tracy Olivares MD Primary Care Provider [phone] Nathan Baig MD Unavailable [phone] Marisel Mancini RN Unavailable [phone] Encounter Details Date Type Department Care Team (Late Contact Info) Description 02/08/2023 EPIOMED THERAPEUTICS Message Enc [facility] Medical Group Multispecialty Care - [address] [place] [address] [facility], [facility] Provider Mammogram results Social History Tobacco Use [...] (Late Contact Info) Description 10/03/2024 11:00 AM CORRECTIONS IDENTIFICATION TECHNICIAN Office Visit [facility] Medical [facility] Pulmonology Specialty Clinic - [address] [address] Nathan Baig MD [address] [address] 11/14/2024 10:20 AM CORRECTIONS IDENTIFICATION TECHNICIAN Office Visit [facility] Multispecialty Care - [place] [address] [address] [place] [address] Tracy Olivares MD [address] [place] [address] documented as of this encounter Visit Diagnoses Not on filedocumented in this encounter Additional Health Concerns Assessment Noted Time PHQ-9 Depression Total Score: 11 01/07/ 023 1:30 PM CDT documented as of this encounter Care Teams Relay Adjuster Relationship Specialty Start Date End Date Tracy Olivares MD [address] [place] [address] PCP - General INTERNAL MEDICINE 01/02/21 Nathan Baig MD [address] [address] Consulting Physician Internal Medicine Pulmonary Disease 09/16/21 Marisel Mancini, RN [address] [place] [address] Patrol Agent (Ambulatory) REGISTERED NURSE 06/28/24 08/07/24 documented as of this encounter
--- OUTSIDE RECORDS SUMMARY | 2024-09-07 15:18 | XMS_ITS | Encounter Summary ---
Author Organization [facility] - [facility] Address [address] [place] [address]. [place] [id number] [place] [address] Care Team Providers Care Broker In Charge Name Role Phone Tracy Olivares MD Primary Care Provider Nathan Baig MD Unavailable [phone] Reason for Visit * Reason Onset Date Comments Appointment Request 12/08/2022 AWV reschedu led Encounter Details Date Type Department Care Team (Late st Contact Info) Description 12/08/2022 Telephone [facility] Medical Group Multispecialty Care - [place] [address] [place] [address] [address] [place] [address] [place] [address] [place] [address] [place], [place] [address] Appointment Request (AWV rescheduled) Social History Tobacco [...] st Contact Info) Description 10/03/2024 11:00 AM BITUMEN PLANT OPERATOR Office Visit [facility] Medical Group Pulmonology Specialty Clinic - [address] [address] Nathan Baig MD [address] [place] [address] 11/14/2024 10:20 AM BITUMEN PLANT OPERATOR Office Visit [facility] Multispecialty Care - [place] [address] [address] [place] [address] Tracy Olivares MD [address] [place] [address] documented as of this encounter Visit Diagnoses Not on filedocumented in this encounter Additional Health Concerns Assessment Noted Time PHQ-9 Depression Total Score: 5 01/06/20 22 10:48 AM CDT documented as of this encounter Care Teams Broker In Charge Relationship Specialty Start Date End Date Tracy Olivares MD [address] [place] [address] PCP - General INTERNAL MEDICINE 01/02/21 Nathan Baig MD [address] [address] Consulting Physician Internal Medicine Pulmonary Disease 09/16/21 documented as of this encounter
--- OUTSIDE RECORDS SUMMARY | 2024-09-07 15:18 | XMS_ITS | Encounter Summary ---
Author Organization [facility] Address [address] [place] [address]. [place], [place] [address] [place] [address] Care Team Providers Care Typewriter Operator Automatic Name Role Phone Tracy Olivares MD Primary Care Provider [phone] Nathan Baig MD Unavailable Reason for Visit * Reason Onset Date Comments Orders 10/29/2022 Encounter Details Date Type Department Care Team (Late st Contact Info) Description 10/29/2022 Telephone [facility] Medical Group Multispecialty Care - Health system [address] [facility] [address] [place] [phone] Nathan Baig MD 3 [facility] [address] [place] [address] Orders Social History Tobacco Use Types Packs/Day [...] Coronavirus/COVID-19? No / Unsure 10/29/2022 9:44 AM HOSE CEMENTER documented as of this encounter Progress Notes * Lynette Pink MA - 11/02/2022 2:37 PM CST Order and office note faxed to IV CEMENTER * Stacy Song CRT - 10/29/2022 10:38 AM CST Patient uses IV Respiratory CEMENTER * Stacy Song CRT - 10/29/2022 10:38 AM CST ----- Message from Nathan Baig MD sent at 10/29/2022 10:02 AM HOSE CEMENTER ----- Regarding: CPAP supplies Send orders, she would like to be able to try a different mask/strap set up. She feels like the current straps are giving her a headache. Nathan Baig MD CEMENTER documented in this encounter Plan of Treatment Upcoming Encounters Date Type Department Care Team (Late st Contact Info) Description 10/03/2024 11:00 AM HOSE CEMENTER Office Visit [facility] Medical Group Pulmonology Specialty Clinic - [address] [address] Nathan Baig MD [address] [place] [address] 11/14/2024 10:20 AM HOSE CEMENTER Office Visit [facility] Medical Group Multispecialty Care - [place] [address] [address] [place] [address] Tracy Olivares MD [address] [place] [address] 157 [place] [address] documented as of this encounter Visit Diagnoses Not on filedocumented in this encounter Additional Health Concerns Assessment Noted Time PHQ-9 Depression Total Score: 5 01/06/20 22 10:48 AM CDT documented as of this encounter Care Teams Typewriter Operator Automatic Relationship Specialty Start Date End Date Tracy Olivares MD 1188 [facility] [address] [place] [address] PCP - General INTERNAL MEDICINE 01/02/21 Nathan Baig MD [address] [address] Consulting Physician Internal Medicine Pulmonary Disease 09/16/21 documented as of this encounter
--- OUTSIDE RECORDS SUMMARY | 2024-09-07 15:18 | XMS_ITS | Encounter Summary ---
Author Organization [facility] Address [address] [place] [address]. [place], [place] [address] [place] [address] Care Team Providers Care Tester Equipment Name Role Phone Tracy Olivares MD Primary Care Provider [phone] Nathan Baig MD Unavailable [phone] Encounter Details Date Type Department Care [...] ( Contact Info) Description 10/03/2024 11:00 AM LOADING UNIT TOOL SETTER Office Visit [facility] Medical Group Pulmonology Specialty Clinic - [address] [place] [address] Nathan Baig MD [address] [address] 11/14/2024 10:20 AM LOADING UNIT TOOL SETTER Office Visit [facility] Medical Group Multispecialty Care - [place] [address] [address] [place] [address] Tracy Olivares MD [address] [place] [address] documented as of this encounter Visit Diagnoses Not on filedocumented in this encounter Additional Health Concerns Assessment Noted Time PHQ-9 Depression Total Score: 5 01/06/20 10:48 AM CDT documented as of this encounter Care Teams Tester Equipment Relationship Specialty Start Date End Date Tracy Olivares MD [address] [place] [address] PCP - General INTERNAL MEDICINE 01/02/21 Nathan Baig MD [address] [address] Consulting Physician Internal Medicine Pulmonary Disease 09/16/21 documented as of this encounter
--- OUTSIDE RECORDS SUMMARY | 2024-09-07 15:18 | XMS_ITS | Encounter Summary ---
Author Organization [facility] Address [address] [place] [address]. [place], [place] [address] [place] [address] Care Team Providers Care Tile Decorator Name Role Phone Tracy Olivares MD Primary Care Provider [phone] Nathan Baig MD Unavailable [phone] Encounter Details Date Type Department Care [...] st Contact Info) Description 10/03/2024 11:00 AM BARREL STRAIGHTENER Office Visit [facility] Medical Group Pulmonology Specialty Clinic - [address] [place], [place] [address] Nathan Baig MD 3 [facility] [address] [place] [address] 11/14/2024 10:20 AM BARREL STRAIGHTENER Office Visit [facility] Medical Group Multispecialty Care - [place] [address] [address] [place] [address] Tracy Olivares MD [facility] hospital[facility] [address] [address] documented as of this encounter Visit Diagnoses Not on filedocumented in this encounter Additional Health Concerns Assessment Noted Time PHQ-9 Depression Total Score: 5 01/06/20 10:48 AM CDT documented as of this encounter Care Teams Tile Decorator Relationship Specialty Start Date End Date Tracy Olivares MD [address] [place] [address] PCP - General INTERNAL MEDICINE 01/02/21 Nathan Baig MD 3 [facility] [address] [place] [address] Consulting Physician Internal Medicine Pulmonary Disease 09/16/21 documented as of this encounter
--- OUTSIDE RECORDS SUMMARY | 2024-09-07 15:18 | XMS_ITS | Encounter Summary ---
Author Organization [facility] Address [address] [place] [address]. [place], [place] [address] [place] [address] Care Team Providers Care Security Solutions Engineer Name Role Phone Tracy Olivares MD Primary Care Provider Nathan Baig MD Unavailable [phone] Reason for Visit * Reason Onset Date Comments Reschedule 04/26/2023 Encounter Details Date Type Department Care Team (Late st Contact Info) Description 04/26/2023 MyChart Message Enc [facility] Medical Group Multispecialty Care - [facility] [address] [facility] [address] [place] [address] Nathan Baig MD [address] [facility] [facility] [address] [place], [place] [id number] Social History Tobacco Use Types Packs/Day Years [...] st Contact Info) Description 10/03/2024 11:00 AM CHASSIS INSPECTOR Office Visit [facility] Medical [facility] Pulmonology Specialty Clinic - [address] [address] Nathan Baig MD [address] [address] 11/14/2024 10:20 AM CHASSIS INSPECTOR Office Visit [facility] Multispecialty Care - [place] [address] [address] [place] [address] Tracy Olivares MD [address] [place] [address] documented as of this encounter Visit Diagnoses Not on filedocumented in this encounter Additional Health Concerns Assessment Noted Time PHQ-9 Depression Total Score: 11 01/07/ 023 1:30 PM CDT documented as of this encounter Care Teams Security Solutions Engineer Relationship Specialty Start Date End Date Tracy Olivares MD [address] [place] [address] PCP - General INTERNAL MEDICINE 01/02/21 Nathan Baig MD 3 [facility] [address] [place] [address] Consulting Physician Internal Medicine Pulmonary Disease 09/16/21 documented as of this encounter
--- OUTSIDE RECORDS SUMMARY | 2024-09-07 15:18 | XMS_ITS | Encounter Summary ---
Author Organization [facility] Address [address] [place] [address]. [place], [place] [address] [place] [address] Care Team Providers Care Gusset Ripper Name Role Phone Tracy Olivares MD Primary Care Provider [phone] Nathan Baig MD Unavailable [phone] Reason for Visit * Reason Onset Date Comments Quality Gap Closure 11/23/2022 Encounter Details Date Type Department Care Team (Latest Contact Info) Description 11/23/2022 Patient Outreach [facility] Medical Group Multispecialty Care - [address] [place] [address] Nicole Cowart MA Quality Gap [...] Coronavirus/COVID-19? No / Unsure 10/29/2022 9:44 AM LEGAL SUMMER INTERN documented as of this encounter Progress Notes * Nicole Cowart MA - 11/23/2022 4:45 PM CDT I am a patient quality advocate calling this patient on behalf of the virtual stand work team to assess the below quality gaps. If you need to contact me directly- my number is [phone]. Preventive Screenings: Breast Cancer Screening: Up to [...] st Contact Info) Description 10/03/2024 11:00 AM LEGAL SUMMER INTERN Office Visit [facility] Medical Group Pulmonology Specialty Clinic - [address] [address] Nathan Baig MD [address] [place] [address] 11/14/2024 10:20 AM LEGAL SUMMER INTERN Office Visit [facility] Medical Group Multispecialty Care - [place] [address] [address] [place] [address] Tracy Olivares MD [address] [place] [address] documented as of this encounter Visit Diagnoses Not on filedocumented in this encounter Additional Health Concerns Assessment Noted Time PHQ-9 Depression Total Score: 5 01/06/20 10:48 AM CDT documented as of this encounter Care Teams Gusset Ripper Relationship Specialty Start Date End Date Tracy Olivares MD [address] [facility] [address] [place] [address] PCP - General INTERNAL MEDICINE 01/02/21 Nathan Baig MD [address] [address] Consulting Physician Internal Medicine Pulmonary Disease 09/16/21 documented as of this encounter
--- OUTSIDE RECORDS SUMMARY | 2024-09-07 15:18 | XMS_ITS | Encounter Summary ---
Author Organization [facility] Address [address] [place] [address]. [place] [id number] [place] [address] Care Team Providers Care Airplane Pilot Chief Name Role Phone Tracy Olivares MD Primary Care Provider [phone] Nathan Baig MD Unavailable [phone] Reason for Visit * Reason Comments Weight Problem Medication Problem C/o of upset stomach since starting januvia and atorvastatin Encounter Details Date Type Department Care Team (Latest Contact Info) Description 05/03/2022 11:00 AM CDT Office Visit [facility] Medical Group Multispecialty Care - [place] [address] [address] [place] [address] Tracy Olivares MD [address] [place] [address] 157 [place], [place] [id number] Weight Problem; Medication Problem (C/o of upset [...] through Care Everywhere. * Weight Loss Tips (Frisian) documented in this encounter Progress Notes [...] of 50.0 to 59.9 in adult ([facility]) E66.01 278.01 SEVERE OBESITY phentermine [...] of 50.0 to 59.9 in adult ([facility]) - this is her third refill - -Pt has elevated weight with BMI Body mass index is 49.87 kg/m??., and will need to work hard on reducing carbohydrates and total calories. -You may use the free smart phone apps such as Mingleplaypal to help track calories and try to [...] was at least in part performed using [place] Warp speak and there may be some inherent flaws in this potato spotter due to the nature of this program. Tracy Olivares MD Internal Medicine [facility], [facility]. documented in this encounter Plan of Treatment Upcoming Encounters Date Type Department Care Team (Late st Contact Info) Description 10/03/2024 11:00 AM VISUAL ARTS TEACHER Office Visit [facility] Medical Group Pulmonology Specialty Clinic - [place] [address] [facility] [address] [place] [address] Nathan Baig MD [address] [place] [address] 11/14/2024 10:20 AM VISUAL ARTS TEACHER Office Visit [facility] Medical Group Multispecialty Care - [place] [address] [place] [address] Tracy Olivares MD [address] [facility] [address] [place] [address] documented as of this encounter Procedures Procedure Name Priority Date/Time Associated Diagnosis Comments ALLERGENS UPPER RESP Routine 05/03/2022 11:14 AM CDT Seasonal allergies documented in this encounter Results * (ABNORMAL) ALLERGENS UPPER RESP (05/03/2022 11:14 AM CDT) ALLERGEN D PTERONYSSINUS TNP kU/L [facility] Comment: TEST NOT PERFORMED No suitable specimen received. Please review the test requirements at [employer]Good Faith [employer] ALLERGEN CAT DANDER TNP kU/L [facility] Comment: TEST NOT PERFORMED No suitable specimen received. Please review the test requirements at [employer] [employer] ALLERGEN COCKROACH OMANI TNP kU/L [facility] Comment: TEST NOT PERFORMED No suitable specimen received. Please review the test requirements at [email or web address].[address] ALLERGEN BOX ELDER/MAPLE TREE TNP kU/L [facility] Comment: TEST NOT PERFORMED No suitable specimen received. Please review the test requirements at [employer] ALLERGEN OAK TREE TNP kU/L [facility] Comment: TEST NOT PERFORMED No suitable specimen received. Please review the test requirements at [employer] ALLERGEN PECAN TREE TNP kU/L [facility] Comment: TEST NOT PERFORMED No suitable specimen received. Please review the test requirements at [employer] ALLERGEN BERMUDA GRASS TNP kU/L [facility] Comment: TEST NOT PERFORMED No suitable specimen received. Please review the test requirements at [employer] ALLERGEN COMMON SHORT RAGWEED TNP kU/L [facility] Comment: TEST NOT PERFORMED No suitable specimen received. Please review the test requirements at [employer] ALLERGEN UZBEK THISTLE TNP kU/L [facility] Comment: TEST NOT PERFORMED No suitable specimen received. Please review the test requirements at testdirectory.Seen ALLERGEN MOUSE TNP kU/L [facility] Comment: TEST NOT PERFORMED No suitable specimen received. Please review the test requirements at testdirectory.Seen IGE 131(H) <SV=099 kU/L [facility] INTERPRETATION [facility] Comment: Specific ?Level of Allergen [...] analytical performance characteristics have been determined by [facility]. It has not been cleared or approved by the U.S. Food and Drug Administration. This assay has been validated pursuant to the CLIA regulations and is used for clinical purposes. 05/03/2022 11:1 4 AM CDT 05/04/2022 2:47 PM CDT Tracy Olivares MD LABORATORY Final Result [facility] [address] [place] [address] documented in this encounter Visit Diagnoses Diagnosis Class 3 severe obesity due to excess calories without serious comorbidity with body mass index (BMI) of 50.0 to 59.9 in adult ([facility])- Primary Chronic bilateral low back pain with bilateral sciatica Seasonal allergies Allergic rhinitis, cause unspecified documented in this encounter Additional Health Concerns Assessment Noted Time PHQ-9 Depression Total Score: 5 01/06/20 22 10:48 AM CDT documented as of this encounter Care Teams Airplane Pilot Chief Relationship Specialty Start Date End Date Tracy Olivares MD [address] [facility] [address] [place] [address] PCP - General INTERNAL MEDICINE 01/02/21 Nathan Baig MD [address] [address] Consulting Physician Internal Medicine Pulmonary Disease 09/16/21 documented as of this encounter
--- OUTSIDE RECORDS SUMMARY | 2024-09-07 15:18 | XMS_ITS | Encounter Summary ---
Author Organization [facility] Address [address] [place] [address]. [place], [place] [address] [place] [address] Care Team Providers Care Plant Production Worker Name Role Phone Tracy Olivares MD Primary Care Provider [phone] Nathan Baig MD Unavailable [phone] Encounter Details Date Type Department Care Team (Late st Contact Info) Description 05/20/2022 - 05/20/2022 11:59 PM CDT Hospital Encounter [facility] [address] [facility] [place] [address] Sid Mae MD Discharge Disposition: Home or [...] mouth daily. ONETOUCH VERIO test strip 01/18/2021 diphenhydrAMINE-zinc (BENADRYL EXTRA STRENGTH) 2-0.1 % Cream creamIndications:Pru ritus Use twice daily on skin to help with itching. 28 g 1 07/09/2021 4 meclizine 12.5 MG tabletIndications:Ve rtigo Take 1 tablet (12.5 mg total) by mouth nightly as needed. 20 tablet 09/01/2021 4 albuterol sulfate HFA 108 (90 Base) MCG/ACT [...] ciclopirox (PENLAC) 8 % solution 04/28/2022 3 escitalopram 10 MG tabletIndications:Mo derate episode of [...] mouth daily. 90 tablet 3 01/05/2022 2 metoclopramide 5 MG tabletIndications:PU D (peptic ulcer [...] (BMI) of 50.0 to 59.9 in adult ([facility]HS/HCC) Take 1 tablet (37.5 mg total) [...] BREATH ACTIVATEDIndications :Pulmonary emphysema, unspecified emphysema type ([facility]/HCC) Inhale 1 puff into the lungs daily. Rinse and spit after use 3 each 3 01/05/2022 2 Vitamin D, Cholecalciferol, 50 MCG (1999 AK) CapIndications:Vitam in D deficiency Take 1,000 Units by mouth daily. 30 capsule 03/03/2021 4 documented as of this encounter Plan of Treatment Upcoming Encounters Date Type Department Care Team (Late st Contact Info) Description 10/03/2024 11:00 AM NEWS CAMERAMAN Office Visit [facility] Medical [facility] Pulmonology Specialty Clinic - [address] [address] Nathan Baig MD 3 [facility] [address] [place] [address] 11/14/2024 10:20 AM NEWS CAMERAMAN Office Visit [facility] Multispecialty Care - [place] [address] [address] [place] [address] Tracy Olivares MD [address] [place] [address] documented as of this encounter Visit Diagnoses Not on filedocumented in this encounter Additional Health Concerns Infection Onset Date Last Indicated Resolved Time COVID-19 Rule Out 05/20/2022 05/20/2022 05/20/2022 10:50 AM CDT COVID-19 Rule Out 05/20/2022 05/20/2022 05/21/2022 1:20 AM CDT Assessment Noted Time PHQ-9 Depression Total Score: 5 01/06/20 10:48 AM CDT documented as of this encounter Care Teams Plant Production Worker Relationship Specialty Start Date End Date Tracy Olivares MD [address] [place] [address] PCP - General INTERNAL MEDICINE 01/02/21 Nathan Baig MD 3 [facility] [address] [place] [address] Consulting Physician Internal Medicine Pulmonary Disease 09/16/21 documented as of this encounter
--- OUTSIDE RECORDS SUMMARY | 2024-09-07 15:18 | XMS_ITS | Encounter Summary ---
Author Organization [facility] Address [address] [place] [address]. [place], [place] [address] [place] [address] Care Team Providers Care Continuous Improvement Director Name Role Phone Tracy Olivares MD Primary Care Provider [phone] Nathan Baig MD Unavailable [phone] Marisel Mancini RN Unavailable [phone] Encounter Details Date Type Department Care Team (Late Contact Info) Description 04/04/2023 Therapy Plan [facility] Physical Therapy [address] [place] [address] Ly Collado, [place] [address] Social History Tobacco Use Types Packs/Day Years [...] (Late Contact Info) Description 10/03/2024 11:00 AM LIBRARIAN HELPER Office Visit [facility] Pulmonology Specialty Clinic - [address] [address] Nathan Baig MD [address] [address] 11/14/2024 10:20 AM LIBRARIAN HELPER Office Visit [facility] Multispecialty Care - [place] [address] [address] [place] [address] Tracy Olivares MD [address] [address] documented as of this encounter Visit Diagnoses Not on filedocumented in this encounter Additional Health Concerns Assessment Noted Time PHQ-9 Depression Total Score: 11 01/07/ 023 1:30 PM CDT documented as of this encounter Care Teams Continuous Improvement Director Relationship Specialty Start Date End Date Tracy Olivares MD [address] [place] [address] PCP - General INTERNAL MEDICINE 01/02/21 Nathan Baig MD [address] [address] Consulting Physician Internal Medicine Pulmonary Disease 09/16/21 Marisel Mancini, RN [address] [place] [address] Mold Breaker (Ambulatory) REGISTERED NURSE 06/28/24 08/07/24 documented as of this encounter
--- OUTSIDE RECORDS SUMMARY | 2024-09-07 15:18 | XMS_ITS | Encounter Summary ---
Author Organization [facility] Address [address] [place] [address]. [place] [id number] [place] [address] Care Team Providers Care Toll Transmission Worker Name Role Phone Tracy Olivares MD Primary Care Provider [phone] Nathan Baig MD Unavailable Reason for Referral * Consultation (Routine) - Closed Specialty Diagnoses / Procedures Referred By Contoziel t Referred To Contact NUTRITION / [facility] Diabetes and Nutrition Diagnoses Class 3 severe obesity due to excess calories without serious comorbidity with body mass index (BMI) of 50.0 to 59.9 in adult (CMS/HCC [facility]) Procedures OFFICE/OUTPATIENT NEW LOW MDM 30-44 MINUTES OFFICE/OUTPT VISIT,NEW,LEVL IV OFFICE/OUTPT VISIT,NEW,LEVL V OFFICE/OUTPT VISIT,EST,LEVL III OFFICE/OUTPT VISIT,EST,LEVL IV OFFICE/OUTPT VISIT,EST,LEVL V Tracy Olivares MD [address] [facility] [address] [place] [address] Phone: tel: fax: [facility] [address] [place] [address] Phone: tel: fax: Referral ID Status Reason Start Date Expiration Date Visits Re quested Visits Authorized [id number] Closed 06/08/2023 07/08/2024 99 99 Encounter Details Date Type Department Care Team (Late Contact Info) Description 06/08/2023 Orders Only [facility] Medical Group Multispecialty [facility] - [address] [place] [address] Ivette Bianchi, RN [address] [facility] [address] [place] [address] Social History Tobacco Use Types Packs/Day Years [...] Contact Info) Description 10/03/2024 11:00 AM COMMUNITY DEVELOPMENT DIRECTOR Office Visit [facility] Medical Group Pulmonology Specialty Clinic - [address] [address] Nathan Baig MD [address] [place] [address] 11/14/2024 10:20 AM COMMUNITY DEVELOPMENT DIRECTOR Office Visit [facility] Medical Group Multispecialty Care - [address] [place] [address] [place] [address] [place] [address] Scheduled Referrals Name Type Priority Associated Diagnoses Orde r Schedule Ambulatory Referral to Dietitian/Nutrition Referral Routine Class 3 severe obesity due to excess calories without serious comorbidity with body mass index (BMI) of 50.0 to 59.9 in adult ([facility]) Ordered: 06/08/2023 documented as of this encounter Visit Diagnoses Diagnosis Class 3 severe obesity due to excess calories without serious comorbidity with body mass index (BMI) of 50.0 to 59.9 in adult ([facility])- Primary documented in this encounter Additional Health Concerns Assessment Noted Time PHQ-9 Depression Total Score: 11 023 1:30 PM CDT documented as of this encounter Care Teams Toll Transmission Worker Relationship Specialty Start Date End Date Tracy Olivares MD [address] [address] PCP - General INTERNAL MEDICINE 01/02/21 Nathan Baig MD [address] [address] Consulting Physician Internal Medicine Pulmonary Disease 09/16/21 documented as of this encounter
--- OUTSIDE RECORDS SUMMARY | 2024-09-07 15:18 | XMS_ITS | Encounter Summary ---
Author Organization [facility] Address [address] [place] [address]. [place] [id number] [place] [address] Care Team Providers Care Expanded Duty Dental Assistant Name Role Phone Tracy Olivares MD Primary Care Provider [phone] Nathan Baig MD Unavailable [phone] Marisel Mancini RN Unavailable [phone] Encounter Details Date Type Department Care Team (Late Contact Info) Description 03/09/2023 MyChart Message Enc [facility] Medical Group - [facility] [address] [place] [address] [facility] [place] Provider Air Quality Message Social History Tobacco [...] (Late Contact Info) Description 10/03/2024 11:00 AM OIL HOUSE ATTENDANT Office Visit [facility] Pulmonology Specialty Clinic - [address] [address] Nathan Baig MD [address] [address] 11/14/2024 10:20 AM OIL HOUSE ATTENDANT Office Visit [facility] Multispecialty Care - [place] [address] [address] [place] [address] Tracy Olivares MD [address] [address] documented as of this encounter Visit Diagnoses Not on filedocumented in this encounter Additional Health Concerns Assessment Noted Time PHQ-9 Depression Total Score: 11 01/07/ 023 1:30 PM CDT documented as of this encounter Care Teams Expanded Duty Dental Assistant Relationship Specialty Start Date End Date Tracy Olivares MD [address] [place] [address] PCP - General INTERNAL MEDICINE 01/02/21 Nathan Baig MD [address] [address] Consulting Physician Internal Medicine Pulmonary Disease 09/16/21 Marisel Mancini, ARACELIS [address] [place] [address] Evaluation Advisor (Ambulatory) REGISTERED NURSE 06/28/24 08/07/24 documented as of this encounter
--- OUTSIDE RECORDS SUMMARY | 2024-09-07 15:18 | XMS_ITS | Encounter Summary ---
Author Organization [facility] Address [address] [place] [address]. [place], [place] [address] [place] [address] Care Team Providers Care Dye House Supervisor Name Role Phone Tracy Olivares MD Primary Care Provider [phone] Nathan Baig MD Unavailable [phone] Encounter Details Date Type Department Care [...] st Contact Info) Description 10/03/2024 11:00 AM TEMPLATE FITTER Office Visit [facility] Medical Group Pulmonology Specialty Clinic - [address] [place] [address] Nathan Baig MD [address] [address] 11/14/2024 10:20 AM TEMPLATE FITTER Office Visit [facility] Medical Group Multispecialty Care - [place] [address] [address] [place] [address] Tracy Olivares MD [address] [address] documented as of this encounter Visit Diagnoses Not on filedocumented in this encounter Additional Health Concerns Assessment Noted Time PHQ-9 Depression Total Score: 11 01/07/ 023 1:30 PM CDT documented as of this encounter Care Teams Dye House Supervisor Relationship Specialty Start Date End Date Tracy Olivares MD [address] [place] [address] PCP - General INTERNAL MEDICINE 01/02/21 Nathan Baig MD [address] [facility] [place] [address] Consulting Physician Internal Medicine Pulmonary Disease 09/16/21 documented as of this encounter
--- OUTSIDE RECORDS SUMMARY | 2024-09-07 15:18 | XMS_ITS | Encounter Summary ---
Author Organization [facility] Address [address] [place] [address]. [place], [place] [address] [place] [address] Care Team Providers Care State Tested Nursing Assistant Name Role Phone Tracy Olivares MD Primary Care Provider [phone] Nathan Baig MD Unavailable [phone] Reason for Visit * Consultation (Routine) - Closed Specialty Diagnoses / Procedures Referred By Contact Referred To Contact NUTRITION / ENDOCRINOLOGY Diagnoses Prediabetes Class 3 severe obesity due to excess calories without serious comorbidity with body mass index (BMI) of 50.0 to 59.9 in adult ([facility]) Procedures OFFICE/OUTPT VISIT,NEW,LEVL III OFFICE/OUTPT VISIT,NEW,LEVL IV OFFICE/OUTPT VISIT,NEW,LEVL V OFFICE/OUTPT VISIT,EST,LEVL III OFFICE/OUTPT VISIT,EST,LEVL IV OFFICE/OUTPT VISIT,EST,LEVL V Tracy Olivares MD [address] [facility] [address] [place] [address] Phone: tel:[phone] fax:[phone] [facility] Medical [facility] Diabetes and Endocrinology - [place] [address] Phone: tel: fax: Referral ID Status Reason Start Date Expiration Date Visits Re quested Visits Authorized [id number] Closed 02/25/2023 03/27/2024 99 99 Encounter Details Date Type Department Care Team (Latest Contact Info) Description 05/31/2023 9:30 AM CDT - 05/31/2023 11:59 PM CDT Hospital Encounter [facility] Diabetes & Nutrition Services [address] [place] [address] Tracy Olivares MD [address] [facility] [address] [place] [address] Discharge Disposition: Home or [...] needed. 18 g 5 3 03/20/20 24 diphenhydrAMINE-zin c (BENADRYL EXTRA [...] as needed. 20 tablet 1 07/11/20 24 atorvastatin (LIPITOR) 20 MG tabletIndications:M ixed [...] oderate episode of recurrent major depressive disorder ([facility]),Generalize d anxiety disorder Take 1 tablet (10 [...] back pain COPD (chronic obstructive pulmonary disease) ([facility]) Depression Diabetes mellitus ([facility]) GERD (gastroesophageal reflux disease) Glaucoma [...] diagnosis of diabetes in children. According to [place] Diabetes Association (ADA) guidelines, hemoglobin A1c <7.0% [...] LDL-C. Buddy ANAND et al. PORTER. 2013;310(19): 0462-8737 (http://education.Causata.Wetzel Engineering/faq/PXH529) HDL Date Value Ref Range Status 01/07/2023 [...] st Contact Info) Description 10/03/2024 11:00 AM BAR TENDER Office Visit [facility] Medical Group Pulmonology Specialty Clinic - [place] [address] [place] [address] Nathan Baig MD [address] [place] [address] 11/14/2024 10:20 AM BAR TENDER Office Visit [facility] Multispecialty Care - [place] [address] [place] [address] Tracy Olivares MD [address] [address] documented as of this encounter Visit Diagnoses Not on filedocumented in this encounter Additional Health Concerns Assessment Noted Time PHQ-9 Depression Total Score: 11 023 1:30 PM CDT documented as of this encounter Care Teams State Tested Nursing Assistant Relationship Specialty Start Date End Date Tracy Olivares MD [address] [address] PCP - General INTERNAL MEDICINE 01/02/21 Nathan Baig MD [address] [address] Consulting Physician Internal Medicine Pulmonary Disease 09/16/21 documented as of this encounter
--- OUTSIDE RECORDS SUMMARY | 2024-09-07 15:18 | XMS_ITS | Encounter Summary ---
Author Organization [facility] Address [address] [place] [address]. [place] [id number] [place] [address] Care Team Providers Care Tombstone Erector Name Role Phone Tracy Olivares MD Primary Care Provider [phone] Nathan Baig MD Unavailable [phone] Reason for Visit * Reason Onset Date Comments Downtime Visit 06/08/2023 Encounter Details Date Type Department Care Team (Late st Contact Info) Description 05/11/2023 10:20 AM CDT Office Visit [facility] Medical Group Multispecialty Care - [place] [address] [address] [place], [place] [id number] Tracy Olivares MD [address] [place] [address] [address] [place] [address] Downtime Visit Social History Tobacco Use Types [...] may be found under the media tab. BEHAVIORAL HEALTH * Radha Akhtar RN - 05/11/2023 10:20 AM CDT Refer to scanned documents for care provided during this time. documented in this encounter Plan of Treatment Upcoming Encounters Date Type Department Care Team (Late st Contact Info) Description 10/03/2024 11:00 AM RN BEHAVIORAL HEALTH Office Visit [facility] Medical Group Pulmonology Specialty Clinic - [address] [address] Nathan Baig MD [address] [place] [address] 11/14/2024 10:20 AM RN BEHAVIORAL HEALTH Office Visit [facility] Medical Group Multispecialty Care - [address] [address] Tracy Olivares MD [address] [place] [address] documented as of this encounter Visit Diagnoses [...] documented as of this encounter Care Teams Tombstone Erector Relationship Specialty Start Date End Date Tracy Olivares MD [address] [facility] [address] [place] [address] PCP - General INTERNAL MEDICINE 01/02/21 Nathan Baig MD [address] [address] Consulting Physician Internal Medicine Pulmonary Disease 09/16/21 documented as of this encounter
--- OUTSIDE RECORDS SUMMARY | 2024-09-07 15:18 | XMS_ITS | Encounter Summary ---
Author Organization [facility] - [facility] Address [address] [place] [address]. [place], [place] [address] [place] [address] Care Team Providers Care Envelope Machine Operator Name Role Phone Tracy Olivares MD Primary Care Provider [phone] Nathan Baig MD Unavailable [phone] Marisel Mancini RN Unavailable [phone] Encounter Details Date Type Department Care Team (Late st Contact Info) Description 05/10/2022 PaperG Message Enc [facility] Medical Group Multispecialty Care - [address] [place] [address] Stephanie, [facility] Provider Lab Test Social History Tobacco Use [...] st Contact Info) Description 10/03/2024 11:00 AM LIFE SKILLS CONSULTANT Office Visit [facility] Medical [facility] Pulmonology Specialty Clinic - [address] [address] Nathan Baig MD [address] [facility] [address] [place] [address] 11/14/2024 10:20 AM LIFE SKILLS CONSULTANT Office Visit [facility] Multispecialty Care - [place] [address] [address] [place] [address] Tracy Olivares MD [address] [place] [address] documented as of this encounter Visit Diagnoses Not on filedocumented in this encounter Additional Health Concerns Infection Onset Date Last Indicated Resolved Time COVID-19 Rule Out 05/20/2022 05/20/2022 05/20/2022 10:50 AM CDT COVID-19 Rule Out 05/20/2022 05/20/2022 05/21/2022 1:20 AM CDT Assessment Noted Time PHQ-9 Depression Total Score: 5 01/06/20 10:48 AM CDT documented as of this encounter Care Teams Envelope Machine Operator Relationship Specialty Start Date End Date Tracy Olivares MD [address] [place] [address] PCP - General INTERNAL MEDICINE 01/02/21 Nathan Baig MD 3 [facility] [place] [address] [place] [address] Consulting Physician Internal Medicine Pulmonary Disease 09/16/21 Marisel Mancini RN [address] [place] [address] Neck Pinner (Ambulatory) REGISTERED NURSE 06/28/24 08/07/24 documented as of this encounter
--- OUTSIDE RECORDS SUMMARY | 2024-09-07 15:18 | XMS_ITS | Encounter Summary ---
Author Organization [facility] Address [address] [place] [address]. [place] [id number] Care Team Providers Care Travel Coordinator Name Role Phone Tracy Olivares MD Primary Care Provider [phone] Nathan Baig MD Unavailable [phone] Reason for Referral * Imaging (Routine) - Closed Specialty Diagnoses / Procedures Referred By Heidi iverson Referred To Contact RADIOLOGY Diagnoses Postmenopausal Procedures BONE DENSITY/DEXA Tracy Olivares MD [address] [facility] [address] [place] [address] Phone: tel: fax: [facility] [address] [facility] [address] [place] [address] Phone: tel: fax: Referral ID Status Reason Start Date Expiration Date V isits Requested Visits Authorized [id number] Closed Bone Density Testing 01/07/2023 01/08/2024 99 99 * Physical Medicine (Routine) - Closed Specialty Diagnoses / Procedures Referred By Heidi iverson Referred To Contact PHYSICAL THERAPY / [facility] Physical Therapy Diagnoses At risk for falling Procedures OFFICE/OUTPT VISIT,NEW,LEVL III OFFICE/OUTPT VISIT,NEW,LEVL IV OFFICE/OUTPT VISIT,NEW,LEVL V OFFICE/OUTPT VISIT,EST,LEVL III OFFICE/OUTPT VISIT,EST,LEVL IV OFFICE/OUTPT VISIT,EST,LEVL V Tracy Olivares MD [address] [address] Phone: tel: fax: [facility] Physical Therapy [address] [address] Phone: tel: fax: Referral ID Status Reason Start Date Expiration Date V isits Requested Visits Authorized [id number] Closed Physical Therapy 01/07/2023 09/11/2023 10 10 Scheduling Instructions Send to the [facility] * Imaging (Routine) - Closed Specialty Diagnoses / Procedures Referred By Heidi iverson Referred To Contact RADIOLOGY Diagnoses Abnormal mammogram of both breasts Procedures US BREAST LT BIRAD LTD Tracy Olivares MD [address] [address] Phone: tel: fax: [facility] [address] [place] [address] [place] [address] Phone: tel: fax: Referral ID Status Reason Start Date Expiration Date V isits Requested Visits Authorized [id number] Closed Ultrasound 01/07/2023 01/08/2024 99 99 * Imaging (Routine) - Closed Specialty Diagnoses / Procedures Referred By Contoziel t Referred To Contact RADIOLOGY Diagnoses Abnormal mammogram of both breasts Procedures US BREAST RT BIRAD LTD Tracy Olivares MD [address] [address] Phone: tel: fax: [facility] 3 [facility] [address] [place] [id number] Phone: tel: fax: Referral ID Status Reason Start Date Expiration Date V isits Requested Visits Authorized [id number] Closed Ultrasound 01/07/2023 01/08/2024 99 99 * Imaging (Routine) - Closed Specialty Diagnoses / Procedures Referred By Symoneac t Referred To Contact RADIOLOGY Diagnoses Abnormal mammogram of both breasts Procedures MG DIAGNOSTIC LUCINA DIGI Tracy Olivares MD [address] [address] Phone: tel: fax: [facility] [address] [place] [address] [address] [place] [address] Phone: tel: fax: Referral ID Status Reason Start Date Expiration Date V isits Requested Visits Authorized [id number] Closed Mammogram 01/07/2023 01/08/2024 99 99 Reason for Visit * Reason Comments Physical Follow Up Chronic medical issu es Encounter Details Date Type Department Care Team (Latest Contact Info) Description 01/07/2023 11:00 AM CDT Office Visit [facility] Medical Group Multispecialty Care - [place] [address] [address] [place] [address] Tracy Olivares MD [address] [address] Physical; Follow Up (Chronic medical issues) Social [...] from anyone in 2 weeks, please call [phone]. I have also reordered your mammogram as well as a bone scan for you. * Attachments The following attachments cannot be sent through Care Everywhere. * Yearly Physical for Adults (Cameroonian) * Preventing falls in adults (Cameroonian) documented in this encounter Progress Notes * [...] at the moment. Currently patient is on fuqy-apk-kdnflxi antihistamines which helps with symptom controled.. ??Denies [...] had an EGD done in 2019 at [facility] [place].??Currently on pantoprazole 40 mg daily and [...] at home mostly. She last tripped at [employer] but did not fall. History of mitral [...] Nasal route daily. 16 g 5 ??? Iteysxnqnuu-Pguqiyqbw-Zlsgcm (TRELEGY ELLIPTA) 100-62.5-25 MCG/ACT AEROSOL POWDER, BREATH [...] BIRAD LTD; Future - US BREAST LT IM-SenseAD LTD; Future - US BREAST RT BIRAD [...] smoking/second hand smoking. Patient will set up [facility]. Patient will fax over any remaining outside [...] smoking/second hand smoking. Patient will set up [employer]Snaph[employer]. Patient will fax over any remaining outside [...] (BMI) of 50.0 to 59.9 in adult ([facility]) - -Pt has elevated weight with BMI Body mass index is 49.97 kg/m??., and will need to work hard on reducing carbohydrates and total calories. -You may use the free smart phone apps such as Fluid-1 to help track calories and try to [...] follow with pulmonary as planned - Continue Quwqiafchdy-Vjvteaayf-Sbxzvz (TRELEGY ELLIPTA) 100-62.5-25 MCG/ACT AEROSOL POWDER, BREATH [...] the day of the encounter. This includes bdbs-kr-imia and lkb-zhbv-go-face time I provided on the day of the encounter & excludes time spent performing separately reportable services. DRAGON: This dictation was at least in part performed using Do IT developers and there may be some inherent flaws in this mold maker helper due to the nature of this program. MD Tracy PASCAL MD Internal Medicine [facility] Medical [facility]. documented in this encounter Plan of Treatment Upcoming Encounters Date Type Department Care Team (Late st Contact Info) Description 10/03/2024 11:00 AM WATER TREATMENT PLANT OPERATOR Office Visit [facility] Medical Group Pulmonology Specialty Clinic - [place] [address] [place] [address] Nathan Baig MD [address] [place] [address] 11/14/2024 10:20 AM WATER TREATMENT PLANT OPERATOR Office Visit [facility] Medical Group Multispecialty Care - [place] [address] [address] [place] [address] Tracy Olivares MD [address] [facility] [address] [place] [address] Scheduled Orders Name Type Priority Associated Diagnoses Orde r Schedule MG DIAGNOSTIC LUCINA DIGI MAMMO Routine Abnormal mammogram of both breasts Ordered: 01/07/2023 US BREAST RT IM-SenseAD Anagear Ultrasound Routine Abnormal mammogram of both breasts [...] A1C 5.6 <5.7 % of total Hgb [facility] Comment: For the purpose of screening for the presence of diabetes: <5.7% ? Consistent with the absence of diabetes 5.7-6.4% ?Consistent with increased risk for diabetes ?(prediabetes) > or =6.5% ??Consistent with diabetes This assay result is consistent with a decreased risk of diabetes. Currently, no consensus exists regarding use of hemoglobin A1c for diagnosis of diabetes in children. According to [place] Diabetes Association (ADA) guidelines, hemoglobin A1c <7.0% represents optimal control in non- diabetic patients. Different metrics may apply to specific patient populations. Standards of Medical Care in Diabetes(ADA). ?? 01/07/2023 11:5 4 AM CDT 01/08/2023 4:42 AM CDT Narrative Resulting Agency Comment Performing Organization Information: ?Site ID: [place] ?Name: [employer] [facility] ?Address: [address] [place] [address] ?Director: Mahin Mckeon MD Tracy Olivares MD LABORATORY Final Result ANILA CABAN Clariture [facility] [address] [place] [address], * TSH W/REFLEX (01/07/2023 11:54 AM CDT) TSH 1.83 0.40 - 4.50 mIU/L [facility] 01/07/2023 11:5 4 AM CDT 01/08/2023 4:42 AM CDT Narrative Resulting Agency Comment Performing Organization Information: ?Site ID: [place] ?Name: Anila Paul ?Address: [address] [address] ?Director: Mahin Mckeon MD Tracy Olivares MD LABORATORY Final Result ANILA CABAN [facility] [address] [address], * LIPID PANEL (01/07/2023 11:54 AM CDT) CHOLESTEROL 133 <200 mg/dL [facility] HDL 65 > OR = 50 mg/dL [facility] TRIGLYCERIDES 63 <150 mg/dL [facility] LDL (CALCULATED) 54 mg/dL (calc) [facility] Comment: Reference range: <100 Desirable range <100 mg/dL for primary prevention; ?? <70 mg/dL for patients with CHD or diabetic patients with > or = 2 CHD risk factors. LDL-C is now calculated using the Buddy-Akhil calculation, which is a validated novel method providing better accuracy than the Friedewald equation in the estimation of LDL-C. Buddy ANAND et al. PORTER. 2013;310(19): 5965-2895 (http://education.Intellon Corporation.Spinzo/faq/GWR681) CHOL/HDL RATIO 2.0 <5.0 (calc) [facility] NON HDL CHOLESTEROL 68 <130 mg/dL (calc) [facility] Comment: For patients with diabetes plus 1 major ASCVD risk factor, treating to a non-HDL-C goal of <100 mg/dL (LDL-C of <70 mg/dL) is considered a therapeutic option. 01/07/2023 11:5 4 AM CDT 01/08/2023 4:42 AM CDT Narrative Resulting Agency Comment Performing Organization Information: ?Site ID: [place] ?Name: Anila Paul ?Address: [address] [address] ?Director: Mahin Mckeon MD Tracy Oliavres MD LABORATORY Final Result ANILA TATUM - TYRONE ORDERS [facility] DEEPTI [place] [address] [address], * COMPREHENSIVE METABOLIC PANEL (01/07/2023 11:54 AM CDT) GLUCOSE 99 65 - 99 mg/dL [facility] Comment: ? Fasting reference interval BUN 16 7 - 25 mg/dL [facility] sharing.it [facility] CREATININE S/P/B 0.76 0.50 - 1.05 mg/dL [facility] sharing.it [facility] GFR ESTIMATE 86 > OR = 60 mL/min/1 .73m2 [facility] sharing.it [facility] Comment: The eGFR is based on the CKD-EPI 2020 equation. To calculate the new eGFR from a previous Creatinine or Cystatin C result, go to https://www.kidney.org/professionals/ kdoqi/gfr%5Fcalculator BUN CREATININE RATIO NOT APPLICABLE 6 - 22 (calc) [facility] sharing.it [facility] SODIUM S/P/B 142 135 - 146 mmol/L [facility] DIAGNOSTICS [facility] POTASSIUM S/P/B 3.9 3.5 - 5.3 mmol/L [facility] DIAGNOSTICS [facility] CHLORIDE S/P/B 105 98 - 110 mmol/L [facility] sharing.it [facility] CO2 28 20 - 32 mmol/L [facility] sharing.it [facility] CALCIUM S/P/B 8.9 8.6 - 10.4 mg/dL [facility] sharing.it [facility] TOTAL PROTEIN S/P/B 6.7 6.1 - 8.1 g/dL [facility] sharing.it [facility] ALBUMIN S/P/B 3.7 3.6 - 5.1 g/dL [facility] sharing.it [facility] GLOBULIN 3.0 1.9 - 3.7 g/dL (calc) [facility] DIAGNOSTICS [facility] ALBUMIN/GLOBULI N RATIO 1.2 1.0 - 2.5 (calc) [facility] DIAGNOSTICS [facility] BILIRUBIN TOTAL S/P/B 0.4 0.2 - 1.2 mg/dL [facility] DIAGNOSTICS [facility] ALKALINE PHOSPHATASE S/P/B 151 37 - 153 U/L [facility] sharing.it [facility] AST 11 10 - 35 U/L [facility] ALT 9 6 - 29 U/L [facility] [place] 01/07/2023 11:5 4 AM CDT 01/08/2023 4:42 AM CDT Narrative Resulting Agency Comment Performing Organization Information: ?Site ID: [place] ?Name: Anila Paul ?Address: [address] [place] [address] ?Director: Mahin Mckeon MD Tracy Olivares MD LABORATORY Final Result [facility] - TYRONE CABAN [facility] [address] [place] [address], * (ABNORMAL) CBC W/DIFF AUTOMATED (01/07/2023 11:54 AM CDT) WBC 7.2 3.8 - 10.8 Thousand/ uL [facility] RBC 4.01 3.80 - 5.10 Million/u L [facility] HGB 11.5(L) 11.7 - 15.5 g/dL [facility] [place] HCT 35.7 35.0 - 45.0 % [facility] [place] MCV 89.0 80.0 - 100.0 fL [facility] [place] MCH 28.7 27.0 - 33.0 pg [facility] MCHC 32.2 32.0 - 36.0 g/dL [facility] RDW 13.6 11.0 - 15.0 % [facility] [place] PLT 278 140 - 400 Thousand/ uL [facility] [place] MPV 10.4 7.5 - 12.5 fL [facility] [place] ABS. NEUTROPHILS 4,810 1,500 - 7,800 [...] Agency Comment Performing Organization Information: ?Site ID: [place] ?Name: [employer] [facility] ?Address: [address] [place] [address] [place] [address] ?Director: Mahin Mckeon MD Tracy Olivares MD LABORATORY Final Result Performing Organization Address [facility]/ZIP Co de Phone Number [facility] - TYRONE ORDERS [facility] DEEPTI [facility] [address] [facility] [place] [address], * ALBUMIN URINE RANDOM (01/07/2023) MICROALBUMIN (U) 10 MG- [address], [place] CREATININE RANDOM (U) [address], [place] MICROALB/CREAT <30 MG[address], [place] URINE SPECIMEN / Unknown 01/07/2023 Tracy Olivares MD URINE ORDERABLES Final Result Performing Organization Address [facility] Co de Phone Number [address], [place] [address] [place] [address], * URINALYSIS AUTO DIP (01/07/2023) COLOR (U) YELLOW [address], [place] TRANSPARENCY CLEAR [address], [place] GLUCOSE (U) NEGATIVE MG/DL [address], [place] BILIRUBIN (U) NEGATIVE MG[address], [place] KETONES MG/DL (U) NEGATIVE MG/DL [address], [place] SPECIFIC GRAVITY (U) 1.020 [address], [place] BLOOD (U) NEGATIVE [address], [place] U PH 6.0 [address], [place] PROTEIN (U) NEGATIVE mg/dL [address], [place] UROBILINOGEN 0.2 EU/dL = mg/dL [address], [place] NITRITES NEGATIVE MG/DL [address], [place] LEUKOCYTES (U) NEGATIVE MG[address], [place] URINE SPECIMEN OBTAINED BY CLEAN CATCH PROCEDURE / Unknown 01/07/2023 Tracy Olivares MD URINE ORDERABLES Final Result -[address], [place] [address] [facility] [address] [place] [address], documented in this encounter Visit Diagnoses Diagnosis [...] (BMI) of 50.0 to 59.9 in adult ([facility]) Idiopathic peripheral neuropathy Unspecified hereditary and idiopathic peripheral neuropathy Prediabetes Other abnormal glucose Mixed hyperlipidemia Moderate episode of recurrent major depressive disorder ([facility]) Generalized anxiety disorder Seasonal allergic rhinitis due to pollen Gastroesophageal reflux disease without esophagitis Esophageal reflux FAISAL on CPAP Obstructive sleep apnea (adult) (pediatric) Chronic bilateral low back pain with bilateral sciatica Pulmonary emphysema, unspecified emphysema type ([facility]) Breast pain, left Mastodynia MVP (mitral valve prolapse) Mitral valve disorders documented in this encounter Additional Health Concerns Assessment Noted Time PHQ-9 Depression Total Score: 11 023 1:30 PM CDT documented as of this encounter Care Teams Travel Coordinator Relationship Specialty Start Date End Date Tracy Olivares MD [address] [facility] [address] [place] [address] PCP - General INTERNAL MEDICINE 01/02/21 Nathan Baig MD [address] [place] [address] Consulting Physician Internal Medicine Pulmonary Disease 09/16/21 documented as of this encounter
--- OUTSIDE RECORDS SUMMARY | 2024-09-07 15:18 | XMS_ITS | Encounter Summary ---
Author Organization [facility] - [facility] Address [address] [place] [address]. [place], [place] [address] [place] [address] Care Team Providers Care Water Pump Installer Name Role Phone Tracy Olivares MD Primary Care Provider [phone] Nathan Baig MD Unavailable [phone] Reason for Visit * Reason Onset Date Comments Follow Up Call 02/07/2023 Encounter Details Date Type Department Care Team (Late st Contact Info) Description 02/07/2023 Telephone [facility] Medical Group Multispecialty Care - [place] [address] [address] [place] [address] [place] [address] [place] [address] 157 [place] [address] Follow Up Call Social History [...] st Contact Info) Description 10/03/2024 11:00 AM PATIENT SERVICES SPECIALIST Office Visit [facility] Medical Group [facility] - [address] [address] Nathan Baig MD [address] [address] 11/14/2024 10:20 AM PATIENT SERVICES SPECIALIST Office Visit [facility] Medical [facility] Multispecialty Care - [place] [address] [address] [place] [address] Tracy Olivares MD [address] [address] documented as of this encounter Visit Diagnoses Not on filedocumented in this encounter Additional Health Concerns Assessment Noted Time PHQ-9 Depression Total Score: 11 01/07/ 023 1:30 PM CDT documented as of this encounter Care Teams Water Pump Installer Relationship Specialty Start Date End Date Tracy Olivares MD [address] [place] [address] PCP - General INTERNAL MEDICINE 01/02/21 Nathan Baig MD 3 [facility] [address] [place] [address] Consulting Physician Internal Medicine Pulmonary Disease 09/16/21 documented as of this encounter
--- OUTSIDE RECORDS SUMMARY | 2024-09-07 15:18 | XMS_ITS | Encounter Summary ---
Author Organization [facility] Address [address] [place] [address]. [place], [place] [address] [place] [address] Care Team Providers Care Group Practice Pediatrician Name Role Phone Tracy Olivares MD Primary Care Provider [phone] Nathan Baig MD Unavailable [phone] Encounter Details Date Type Department Care [...] st Contact Info) Description 10/03/2024 11:00 AM COOK SHIP Office Visit [facility] Medical Group Pulmonology Specialty Clinic - [address] [place], [place] [address] Nathan Baig MD 3 [facility] [address] [place] [address] 11/14/2024 10:20 AM COOK SHIP Office Visit [facility] Medical Group Multispecialty Care - [place] [address] [address] [place] [address] Tracy Olivares MD 1188 [facility] 157 [place] [address] documented as of this encounter Visit Diagnoses Not on filedocumented in this encounter Additional Health Concerns Infection Onset Date Last Indicated Resolved Time COVID-19 Rule Out 05/20/2022 05/20/2022 05/20/2022 10:50 AM CDT COVID-19 Rule Out 05/20/2022 05/20/2022 05/21/2022 1:20 AM CDT Assessment Noted Time PHQ-9 Depression Total Score: 5 01/06/20 10:48 AM CDT documented as of this encounter Care Teams Group Practice Pediatrician Relationship Specialty [place] [address] [place] [address] PCP - General INTERNAL MEDICINE 01/02/21 Nathan Baig MD 3 [facility] [address] [place] [address] Consulting Physician Internal Medicine Pulmonary Disease 09/16/21 documented as of this encounter
--- OUTSIDE RECORDS SUMMARY | 2024-09-07 15:18 | XMS_ITS | Encounter Summary ---
Author Organization [facility] Address [address] [place] [address]. [place], [place] [address] [place] [address] Care Team Providers Care Regulatory Affairs Spec Name Role Phone Tracy Olivares MD Primary Care Provider [phone] Nathan Baig MD Unavailable [phone] Encounter Details Date Type Department Care [...] st Contact Info) Description 10/03/2024 11:00 AM BOILER RELINER Office Visit [facility] Medical Group Pulmonology Specialty Clinic - [address] [place] [address] Nathan Baig MD [address] [address] 11/14/2024 10:20 AM BOILER RELINER Office Visit [facility] Medical Group Multispecialty Care - [place] [address] [address] [place] [address] Tracy Olivares MD [address] [address] documented as of this encounter Visit Diagnoses Not on filedocumented in this encounter Additional Health Concerns Assessment Noted Time PHQ-9 Depression Total Score: 11 01/07/ 023 1:30 PM CDT documented as of this encounter Care Teams Regulatory Affairs Spec Relationship Specialty Start Date End Date Tracy Olivares MD [address] [place] [address] PCP - General INTERNAL MEDICINE 01/02/21 Nathan Baig MD [address] [facility] [place] [address] Consulting Physician Internal Medicine Pulmonary Disease 09/16/21 documented as of this encounter
--- OUTSIDE RECORDS SUMMARY | 2024-09-07 15:18 | XMS_ITS | Encounter Summary ---
Author Organization [facility] - [facility] Address [address] [place] [address]. [place], [place] [address] [place] [address] Care Team Providers Care Management Analyst Name Role Phone Tracy Olivares MD Primary Care Provider [phone] Nathan Baig MD Unavailable [phone] Reason for Visit * Reason Comments Sinus Problem Nasal drainage, snee zing, dizziness; sx x 2 days; headache this morning Encounter Details Date Type Department Care Team (Late st Contact Info) Description 05/20/2022 9:40 AM CDT Office Visit [facility] Medical Group Multispecialty Care - [address] [place] [address] Sid Mae MD Sinus Problem [...] with soap and water or use hand broker associate. Please use flonase 1 spray in each [...] with soap and water or use hand broker associate. Please use flonase 1 spray in each nostril twice a day for 3 weeks. You can continue Zyrtec. Hot steam baths help as well with nasal congestion. Sid Mae MD Family Medicine [facility] documented in this encounter Plan of Treatment Upcoming Encounters Date Type Department Care Team (Late st Contact Info) Description 10/03/2024 11:00 AM PEST CONTROL SERVICE REPRESENTATIVE Office Visit [facility] Medical [facility] Pulmonology Specialty Clinic - [place] [address] [address] Nathan Baig MD [address] [address] 11/14/2024 10:20 AM PEST CONTROL SERVICE REPRESENTATIVE Office Visit [facility] Multispecialty Care - [place] [address] [address] [place] [address] Tracy Olivares MD 1188 [facility] 157 [place] [address] documented as of this encounter Procedures Procedure [...] SPEC DESCRIPTION NASAL 05/20/20 10:51 AM CDT [facility] CORONAVIRUS SARS COV 2 PCR (RESP) NEGATIVE NEGATIVE 05/21/2022 1:20 AM CDT [facility] Comment: THE SARS-CoV-2 TEST HAS BEEN AUTHORIZED BY THE FDA UNDER AN EUA FOR USE BY AUTHORIZED LABORATORIES. PERFORMED BY NUCLEIC ACID AMPLIFICATION PCR FIRST TEST YES 05/20/2022 10:51 AM CDT [facility] EMPLOYED IN HEALTHCARE NO 05/20/2022 10:51 AM CDT [facility] SYMPTOMATIC DEFINED BY CDC YES 05/20/2022 10:51 AM CDT [facility] DATE OF SYMPTOM ONSET 2022051705/20/2022 10:51 AM CDT [facility] HOSPITALIZATION STATUS NO 05/20/2022 10:51 AM CDT [facility] PATIENT IN ICU NO 05/20/2022 10:51 AM CDT [facility] RESIDENT OF [facility] CARE NO 05/20/2022 10:51 AM CDT [facility] NASOPHARYNGEAL SWAB / Unknown 05/20/2022 10:51 AM CDT Sid Mae MD MICROBIOLOGY - G ENERAL ORDERABLES Final Result [facility] [address] [place] [address], * CORONAVIRUS (COVID-19) INFLUENZA A & B ANTIGEN IA PANEL (05/20/2022) CORONAVIRUS ANTIGEN IA NEGATIVE NEGATIVE [facility], [place] INFLUENZA A NEGATIVE NEGATIVE MG-[address], [place] INFLUENZA B NEGATIVE NEGATIVE MG[address], [place] Internal Control: VALID VALID MG[address], [place] NASAL STRUCTURE / Unknown 05/20/2022 Sid Mae MD MICROBIOLOGY - G ENERAL ORDERABLES Final Result [facility]-[address], [place] [address] [place] [address] [address] [place] [address], documented in this encounter Visit Diagnoses Diagnosis [...] documented as of this encounter Care Teams Management Analyst Relationship Specialty Start Date End Date Tracy Olivares MD 1188 [facility] [address] [place] [address] PCP - General INTERNAL MEDICINE 01/02/21 Nathan Baig MD [address] [address] Consulting Physician Internal Medicine Pulmonary Disease 09/16/21 documented as of this encounter
--- OUTSIDE RECORDS SUMMARY | 2024-09-07 15:18 | XMS_ITS | Encounter Summary ---
Author Organization [facility] Address [address] [place] [address]. [place], [place] [address] [place] [address] Care Team Providers Care Albacore Fishing Boat Crewman Name Role Phone Tracy Olivares MD Primary Care Provider [phone] Nathan Baig MD Unavailable [phone] Encounter Details Date Type Department Care [...] st Contact Info) Description 10/03/2024 11:00 AM CHOPPED STRAND OPERATOR Office Visit [facility] Medical Group Pulmonology Specialty Clinic - [address] [place] [address] Nathan Baig MD 3 [facility] [address] [place] [address] 11/14/2024 10:20 AM CHOPPED STRAND OPERATOR Office Visit [facility] Medical Group Multispecialty Care - [place] [address] [address] [place] [address] Tracy Olivares MD [address] [address] documented as of this encounter Procedures Procedure [...] documented as of this encounter Care Teams [place] Fishing Boat Crewman Relationship Specialty Start Date End Date Tracy Olivares MD [address] [address] PCP - General INTERNAL MEDICINE 01/02/21 Nathan Baig MD 3 [facility] [address] [place] [address] Consulting Physician Internal Medicine Pulmonary Disease 09/16/21 documented as of this encounter
--- OUTSIDE RECORDS SUMMARY | 2024-09-07 15:18 | XMS_ITS | Encounter Summary ---
Author Organization [facility] Address [address] [place] [address]. [place], [place] [address] [place] [address] Care Team Providers Care Online Content Developer Name Role Phone Tracy Olivares MD Primary Care Provider [phone] Nathan Baig MD Unavailable [phone] Encounter Details Date Type Department Care [...] Coronavirus/COVID-19? No / Unsure 10/29/2022 9:44 AM STOCKING INSPECTOR documented as of this encounter Plan of Treatment Upcoming Encounters Date Type Department Care Team (Late st Contact Info) Description 10/03/2024 11:00 AM STOCKING INSPECTOR Office Visit [facility] Medical Group Pulmonology Specialty Clinic - [address] [place] [address] Nathan Baig MD 3 [facility] [address] [place] [address] 11/14/2024 10:20 AM STOCKING INSPECTOR Office Visit [facility] Medical Group Multispecialty Care - [place] [address] [address] [place] [address] Tracy Olivares MD [facility] [address] documented as of this encounter Visit Diagnoses Not on filedocumented in this encounter Additional Health Concerns Assessment Noted Time PHQ-9 Depression Total Score: 5 01/06/20 10:48 AM CDT documented as of this encounter Care Teams Online Content Developer Relationship Specialty Start Date End Date Tracy Olivares MD [address] [place] [address] PCP - General INTERNAL MEDICINE 01/02/21 Nathan Baig MD 3 [facility] [address] [place] [address] Consulting Physician Internal Medicine Pulmonary Disease 09/16/21 documented as of this encounter
--- OUTSIDE RECORDS SUMMARY | 2024-09-07 15:18 | XMS_ITS | Encounter Summary ---
Author Organization [facility] Address [address] [place] [address]. [place], [place] [address] [place] [address] Care Team Providers Care Web Marketing Specialist Name Role Phone Tracy Olivares MD Primary Care Provider [phone] Nathan Baig MD Unavailable [phone] Encounter Details Date Type Department Care [...] st Contact Info) Description 10/03/2024 11:00 AM SCHOOL GUARD Office Visit [facility] Medical Group Pulmonology Specialty Clinic - [address] [place], [place] [address] Nathan Baig MD 3 [facility] [address] [place] [address] 11/14/2024 10:20 AM SCHOOL GUARD Office Visit [facility] Medical Group Multispecialty Care - [place] [address] [address] [place] [address] Tracy Olivares MD [address] [place] [address] documented as of this encounter Visit Diagnoses Not on filedocumented in this encounter Additional Health Concerns Assessment Noted Time PHQ-9 Depression Total Score: 11 023 1:30 PM CDT documented as of this encounter Care Teams Web Marketing Specialist Relationship Specialty Start Date End Date Tracy Olivares MD [address] [place] [address] PCP - General INTERNAL MEDICINE 01/02/21 Nathan Baig MD 3 [facility] [address] [place] [address] Consulting Physician Internal Medicine Pulmonary Disease 09/16/21 documented as of this encounter
--- OUTSIDE RECORDS SUMMARY | 2024-09-07 15:18 | XMS_ITS | Encounter Summary ---
Author Organization [facility] Address [address] [place] [address]. [place] [address] [place] [address] Care Team Providers Care Solid Waste Engineer Name Role Phone Tracy Olivares MD Primary Care Provider [phone] Nathan Baig MD Unavailable [phone] Reason for Visit * Reason Comments Weight Problem Follow Up Prediabetes, respira tory issues, neuropathy Hypertension Hyperlipidemia Encounter Details Date Type Department Care Team (Latest Contact Info) Description 08/24/2022 10:20 AM CHEESE COOKER Office Visit [facility] Medical Group Multispecialty Care - [place] [address] [address] [place] [address] Tracy Olivares MD [address] [place] [address] 157 [place] [address] Weight Problem; Follow Up (Prediabetes, respiratory issues, [...] Comments Blood Pressure 148/83 08/24/2022 11:10 AM CHEESE COOKER Pulse 74 08/24/2022 10:32 AM CHEESE COOKER Temperature 37 ??C (98.6 ??F) 08/24/2022 10:32 AM CHEESE COOKER Respiratory Rate 18 08/24/2022 10:32 AM CHEESE COOKER Oxygen Saturation 99% 08/24/2022 10:32 AM CHEESE COOKER Inhaled Oxygen Concentration - - Weight 127 kg (280 lb) 08/24/2022 10:32 AM CHEESE COOKER Height 161.3 cm (5' 3.5 ) 08/24/2022 10:32 AM CS T Body Mass Index 48.82 08/24/2022 10:32 AM CHEESE COOKER documented in this encounter Patient Instructions * Patient Instructions* Tracy Olivares MD - 08/24/2022 10:20 AM CHEESE COOKER Follow up in 4 months for your next visit around January 05 2023- please come fasting. SE COOKER documented in this encounter Progress Notes * [...] Nasal route daily. 16 g 5 ??? Cajqthcedob-Xujiqexzx-Ojuzxf (TRELEGY ELLIPTA) 100-62.5-25 MCG/ACT AEROSOL POWDER, BREATH [...] to 59.9 in adult ([facility]) - -Pt has elevated weight with BMI Body mass index is 48.82 kg/m??., and will need to work hard on reducing carbohydrates and total calories. -You may use the free smart phone apps such as Circlezon to help track calories and try to [...] was at least in part performed using [employer] and there may be some inherent flaws in this management information systems director due to the nature of this program. Tracy Olivares MD Internal Medicine [facility]. SE COOKER documented in this encounter Plan of Treatment Upcoming Encounters Date Type Department Care Team (Late st Contact Info) Description 10/03/2024 11:00 AM CHEESE COOKER Office Visit [facility] Medical [facility] Pulmonology Specialty Clinic - [address] [address] Nathan Baig MD [address] [facility] [address] [place] [address] 11/14/2024 10:20 AM CHEESE COOKER Office Visit [facility] Medical [facility] Multispecialty Care - [place] [address] [address] [place] [address] Tracy Olivares MD [address] [address] documented as of this encounter Visit Diagnoses Diagnosis Class 3 severe obesity due to excess calories without serious comorbidity with body mass index (BMI) of 50.0 to 59.9 in adult ([facility])- Primary Idiopathic peripheral neuropathy Unspecified hereditary and idiopathic peripheral neuropathy Essential hypertension Unspecified essential hypertension Prediabetes Other abnormal glucose Mixed hyperlipidemia Moderate episode of recurrent major depressive disorder ([facility]) Generalized anxiety disorder Seasonal allergic rhinitis due to pollen documented in this encounter Additional Health Concerns Assessment Noted Time PHQ-9 Depression Total Score: 5 01/06/20 10:48 AM CDT documented as of this encounter Care Teams Solid Waste Engineer Relationship Specialty Start Date End Date Tracy Olivares MD [address] [place] [address] PCP - General INTERNAL MEDICINE 01/02/21 Nathan Baig MD 3 [facility] [address] [place] [address] Consulting Physician Internal Medicine Pulmonary Disease 09/16/21 documented as of this encounter
--- OUTSIDE RECORDS SUMMARY | 2024-09-07 15:18 | XMS_ITS | Encounter Summary ---
Author Organization [facility] Address [address] [place] [address]. [place], [place] [address] [place] [address] Care Team Providers Care Lead Quality Control Technician Name Role Phone Tracy Olivares MD Primary Care Provider [phone] Nathan Baig MD Unavailable Reason for Visit * Reason Comments Sleep Study (SCAN) Encounter Details Date Type Department Care Team ([facility] Contact Info) Description 10/27/2022 Scan HEALTH INFO [...] Coronavirus/COVID-19? No / Unsure 10/29/2022 9:44 AM DOCK ASSOCIATE documented as of this encounter Plan of Treatment Upcoming Encounters Date Type Department Care Team ([facility] Contact Info) Description 10/03/2024 11:00 AM DOCK ASSOCIATE Office Visit [facility] Medical Group Pulmonology Specialty Clinic - [address] [address] Nathan Baig MD 3 [facility] [address] [place] [address] 11/14/2024 10:20 AM DOCK ASSOCIATE Office Visit [facility] Medical Group Multispecialty Care - [place] [address] [address] [place] [address] Tracy Olivares MD [address] [address] documented as of this encounter Procedures Procedure [...] as of this encounter Care Teams Lead Quality Control Technician Relationship Specialty Start Date End Date Tracy Olivares MD [address] [place] [address] PCP - General INTERNAL MEDICINE 01/02/21 Nathan Baig MD 3 [facility] [address] [place] [address] Consulting Physician Internal Medicine Pulmonary Disease 09/16/21 documented as of this encounter
--- OUTSIDE RECORDS SUMMARY | 2024-09-07 15:18 | XMS_ITS | Encounter Summary ---
Author Organization [facility] Address [address] [place] [address]. [place], [place] [address] [place] [address] Care Team Providers Care Resource Manager Name Role Phone Tracy Olivares MD Primary Care Provider [phone] Nathan Baig MD Unavailable [phone] Reason for Visit * Reason Onset Date Comments Orders 04/23/2022 Encounter Details Date Type Department Care Team (Late st Contact Info) Description 04/23/2022 Telephone [facility] Medical Group Multispecialty Care - [facility] 3 [facility] [address] [place] [phone] Nathan Baig MD 3 [facility] [address] [place] [address] Orders Social History Tobacco Use Types Packs/Day [...] st Contact Info) Description 10/03/2024 11:00 AM PICKLING SOLUTION MAKER Office Visit [facility] Medical Group Pulmonology Specialty Clinic - [address] [address] Nathan Baig MD [address] [place] [address] 11/14/2024 10:20 AM PICKLING SOLUTION MAKER Office Visit [facility] Medical Group Multispecialty Care - [place] [address] [address] [place] [address] Tracy Olivares MD [address] [place] [address] 157 [place] [address] documented as of this encounter Visit Diagnoses Not on filedocumented in this encounter Additional Health Concerns Assessment Noted Time PHQ-9 Depression Total Score: 5 01/06/20 10:48 AM CDT documented as of this encounter Care Teams Resource Manager Relationship Specialty Start Date End Date Tracy Olivares MD 1188 [facility] [address] [place] [address] PCP - General INTERNAL MEDICINE 01/02/21 Nathan Baig MD [address] [address] Consulting Physician Internal Medicine Pulmonary Disease 09/16/21 documented as of this encounter
--- OUTSIDE RECORDS SUMMARY | 2024-09-07 15:18 | XMS_ITS | Encounter Summary ---
Author Organization [facility] Address [address] [place] [address]. [place], [place] [address] [place] [address] Care Team Providers Care Director Mba Name Role Phone Tracy Olivares MD Primary Care Provider [phone] Nathan Baig MD Unavailable [phone] Reason for Visit * Reason Onset Date Comments Results 06/08/2022 Encounter Details Date Type Department Care Team (Late st Contact Info) Description 06/08/2022 Telephone [facility] Medical Group Multispecialty Care - [facility] 3 [facility] [address] [place] [address] Nathan Baig MD 3 [facility] [address] [place], [place] [id number] Results Social History Tobacco Use Types Packs/Day [...] st Contact Info) Description 10/03/2024 11:00 AM NATURAL RESOURCE OFFICER Office Visit [facility] Medical Group Pulmonology Specialty Clinic - [address] [address] Nathan Baig MD [address] [place] [address] 11/14/2024 10:20 AM NATURAL RESOURCE OFFICER Office Visit [facility] Medical Group Multispecialty Care - [place] [address] [address] [place] [address] Tracy Olivares MD [address] [place] [address] documented as of this encounter Visit Diagnoses Not on filedocumented in this encounter Additional Health Concerns Assessment Noted Time PHQ-9 Depression Total Score: 5 01/06/20 10:48 AM CDT documented as of this encounter Care Teams Director Mba Relationship Specialty Start Date End Date Tracy Olivares MD [address] [place] [address] PCP - General INTERNAL MEDICINE 01/02/21 Nathan Baig MD [address] [address] Consulting Physician Internal Medicine Pulmonary Disease 09/16/21 documented as of this encounter
--- OUTSIDE RECORDS SUMMARY | 2024-09-07 15:18 | XMS_ITS | Encounter Summary ---
Author Organization [facility] Address [address] [place] [address]. [place], [place] [address] [place] [address] Care Team Providers Care Collar Cutter Name Role Phone Tracy Olivares MD Primary Care Provider [phone] Nathan Baig MD Unavailable [phone] Reason for Visit * Reason Comments Dilated Eye Exam (SCAN) Encounter Details Date Type Department Care Team ([facility] Contact Info) Description 02/02/2023 Scan HEALTH INFO [...] Upcoming Encounters Date Type Department Care Team ([facility] Contact Info) Description 10/03/2024 11:00 AM SHOT EXAMINER Office Visit [facility] Pul[facility]ty [facility] - [address] [place] [address] [phone] Nathan Baig MD 3 [facility] [address] [place] [address] 11/14/2024 10:20 AM SHOT EXAMINER Office Visit [facility] Multispecialty Care - [place] [address] [address] [place] [address] Tracy Olivares MD [address] [address] documented as of this encounter Procedures Procedure Name Priority Date/Time Associated Diagnosis Comments DIABETIC RETINOPATHY EXAM (NEGATIVE)(SCAN ORDER) Routine 02/02/2023 documented in this encounter Results * DIABETIC RETINOPATHY EXAM (NEGATIVE)(SCAN) (02/02/2023) [facility] Scanned SCANNING Final Resu lt [facility] ONBASE documented in this encounter Visit Diagnoses Not on filedocumented in this encounter Additional Health Concerns Assessment Noted Time PHQ-9 Depression Total Score: 11 01/07/ 023 1:30 PM CDT documented as of this encounter Care Teams Collar Cutter Relationship Specialty [place] [address] [place] [address] PCP - General INTERNAL MEDICINE 01/02/21 Nathan Baig MD 3 [facility] [address] [place] [address] Consulting Physician Internal Medicine Pulmonary Disease 09/16/21 documented as of this encounter
--- OUTSIDE RECORDS SUMMARY | 2024-09-07 15:18 | XMS_ITS | Encounter Summary ---
Author Organization [facility] Address [address] [place] [address]. [place], [place] [address] [place] [address] Care Team Providers Care Business Performance Manager Name Role Phone Tracy Olivares MD Primary Care Provider [phone] Nathan Baig MD Unavailable [phone] Reason for Visit * Reason Onset Date Comments Medication Problem 02/17/2023 Encounter Details Date Type Department Care Team (Late st Contact Info) Description 02/17/2023 Telephone [facility] Medical Group Multispecialty Care - [place] [address] [address] [place] [address] [place] [address] [place] [address] 157 [place] [address] Medication Problem Social History Tobacco [...] st Contact Info) Description 10/03/2024 11:00 AM TILE SORTER Office Visit [facility] Pul[facility]ology [facility]ty Clinic - [address] [address] Nathan Baig MD [address] [address] 11/14/2024 10:20 AM TILE SORTER Office Visit [facility] Medical Group Multispecialty Care - [address] [place] [address] Tracy Olivares MD [address] [place] [address] 157 [place] [address] documented as of this encounter Visit Diagnoses Diagnosis Prediabetes Other abnormal glucose documented in this encounter Additional Health Concerns Assessment Noted Time PHQ-9 Depression Total Score: 11 023 1:30 PM CDT documented as of this encounter Care Teams Business Performance Manager Relationship Specialty Start Date End Date Tracy Olivares MD [address] [address] PCP - General INTERNAL MEDICINE 01/02/21 Nathan Baig MD [address] [address] Consulting Physician Internal Medicine Pulmonary Disease 09/16/21 documented as of this encounter
--- OUTSIDE RECORDS SUMMARY | 2024-09-07 15:18 | XMS_ITS | Encounter Summary ---
Author Organization [facility] Address [address] [place] [address]. [place] [id number] [place] [address] Care Team Providers Care Pediatric Neurologist Name Role Phone Tracy Olivares MD Primary Care Provider [phone] Nathan Baig MD Unavailable [phone] Reason for Visit * Reason Comments Allied Health Visit Patient is here for lab draw Encounter Details Date Type Department Care Team (Latest Contact Info) Description 07/02/2022 9:00 AM CDT Allied Health/Nurse Visit [facility] Medical Group Multispecialty Care - [place] [address] [address] [place] [address] [place] [address] [place] [address] 157 [place] [address] Allied Health Visit (Patient is here for [...] st Contact Info) Description 10/03/2024 11:00 AM FINE ARTS CHAIR Office Visit [facility] Medical [facility] Pulmonology Specialty Clinic - [address] [address] Nathan Baig MD [address] [address] 11/14/2024 10:20 AM FINE ARTS CHAIR Office Visit [facility] Multispecialty Care - [place] [address] [address] [place] [address] Tracy Olivares MD [address] [place] [address] documented as of this encounter Procedures Procedure Name Priority Date/Time Associated Diagnosis Comments VENIPUNC ARM DRAW Routine 07/02/2022 9:10 AM CDT Mixed hyperlipidemia documented in this encounter Visit Diagnoses Diagnosis Mixed hyperlipidemia- Primary documented in this encounter Additional Health Concerns Assessment Noted Time PHQ-9 Depression Total Score: 5 01/06/20 22 10:48 AM CDT documented as of this encounter Care Teams Pediatric Neurologist Relationship Specialty Start Date End Date Tracy Olivares MD [address] [place] [address] PCP - General INTERNAL MEDICINE 01/02/21 Nathan Baig MD [address] [address] Consulting Physician Internal Medicine Pulmonary Disease 09/16/21 documented as of this encounter
--- OUTSIDE RECORDS SUMMARY | 2024-09-07 15:18 | XMS_ITS | Encounter Summary ---
Author Organization [facility] Address [address] [place] [address]. [place], [place] [address] [place] [address] Care Team Providers Care Principal Secretary Name Role Phone Tracy Olivares MD Primary Care Provider [phone] Nathan Baig MD Unavailable [phone] Encounter Details Date Type Department Care [...] Info) Description 10/03/2024 11:00 AM NETWORK SUPPORT TECHNICIAN Office Visit [facility] Medical [facility] Pulmonology Specialty Clinic - [address] [place], [place] [address] Nathan Baig MD 3 [facility] [address] [place] [address] 11/14/2024 10:20 AM NETWORK SUPPORT TECHNICIAN Office Visit [facility] Medical Group Multispecialty Care - [place] [address] [address] [place] [address] Tracy Olivares MD [facility], [address] [address] documented as of this encounter Visit Diagnoses Not on filedocumented in this encounter Additional Health Concerns Assessment Noted Time PHQ-9 Depression Total Score: 5 01/06/20 10:48 AM CDT documented as of this encounter Care Teams Principal Secretary Relationship Specialty Start Date End Date Tracy Olivares MD [address] [place] [address] PCP - General INTERNAL MEDICINE 01/02/21 Nathan Baig MD 3 [facility] [address] [place] [address] Consulting Physician Internal Medicine Pulmonary Disease 09/16/21 documented as of this encounter
--- OUTSIDE RECORDS SUMMARY | 2024-09-07 15:18 | XMS_ITS | Encounter Summary ---
Author Organization [facility] - [facility] Address [address] [place] [address]. [place], [place] [address] [place] [address] Care Team Providers Care Metal Cans Supervisor Name Role Phone Tracy Olivares MD Primary Care Provider [phone] Nathan Baig MD Unavailable [phone] Reason for Visit * Reason Comments Breast Pain Patient had some lef t breast pain last night and did a self breast exam and did not find any lumps Encounter Details Date Type Department Care Team (Latest Contact Info) Description 11/30/2022 2:00 PM CDT Office Visit [facility] Medical Group Multispecialty Care - [place] [address] [address] [place], [place] [address] Tracy Olivares MD [address] [place] [address] 157 [place] [address] Breast Pain (Patient had some left breast [...] through Care Everywhere. * Mastalgia Discharge Instructions (Albanian) documented in this encounter Progress Notes * [...] Nasal route daily. 16 g 5 ??? Clkginepvdz-Rolnxowsc-Qykwgq (TRELEGY ELLIPTA) 100-62.5-25 MCG/ACT AEROSOL POWDER, BREATH [...] appreciated. Breast exam: The presence of a strategic account executive Michele Preciado did perform a breast exam [...] the day of the encounter. This includes inhq-ul-psrl and vck-qbyr-ze-face time I provided on the day of [...] was at least in part performed using Corthera and there may be some inherent flaws in this business office director due to the nature of this program. Tracy Olivares MD Internal Medicine [facility], [facility]. documented in this encounter Plan of Treatment Upcoming Encounters Date Type Department Care Team (Late st Contact Info) Description 10/03/2024 11:00 AM BEHAVIORAL INTERVENTIONIST Office Visit [facility] Medical [facility] Pulmonology Specialty Clinic - [address] [address] Nathan Baig MD [address] [place] [address] 11/14/2024 10:20 AM BEHAVIORAL INTERVENTIONIST Office Visit [facility] Multispecialty Care - [place] [address] [address] [place] [address] Tracy Olivares MD [address] [place] [address] Scheduled Orders Name Type Priority Associated Diagnoses [...] TOTAL CK 119 29 - 143 U/L [employer] [facility] CK MB TNP ng/mL [employer] [facility] Comment: TEST NOT PERFORMED No suitable specimen received. Please review the test requirements at [email or web address] 11/30/2022 3:07 PM CDT 12/01/2022 8:19 AM CDT Narrative Resulting Agency Comment Performing Organization Information: ?Site ID: [id number] ?Name: [facility] ?Address: [address] [place] [address] ?Director: Mahin Mckeon MD Tracy Olivares MD LABORATORY Final Result [facility] TYRONE [facility]AN [facility] [id number] [place] [address] [place] [address], * EKG WELCHALLEN ACQUIRED (11/30/2022 2:55 PM CDT) 11/30/2022 2:55 PM CDT Narrative [facility] RAD - 11/30/2022 3:23 PM CDT ?[facility] ?[address] [place] [address] ? Test Date: ?2022-11-30 Pat Name: ? KEEGAN CRANDALL ? Department: ?? 171 ? Room: ? Gender: ? Female ? Cyber Security: ?? : ?1955 ? Requested By: TRACY OLIVARES Order Number: [id number] ?Reading MD: ?? Tracy Olivares ? Measurements Intervals ?[place] ? Rate: ? 67 ? P: ?30 MN: ? 161 ?QRS: ?-15 QRSD: ? 93 ? T: ?15 QT: ? 376 ? QTc: ?398 ? Interpretive Statements SINUS RHYTHM Procedure Note Tracy Olivares MD - 11/30/2022 [facility] [address] [place] [address] Test Date: 2022-11-30 Pat Name: KEEGAN CRANDALL Department: 171 Room: Gender: Female Cyber Security: : 1955 Requested By: TRACY OLIVARES Order Number: [id number] Reading MD: Tracy Olivares Measurements Intervals [place] Rate: 67 P: 30 MN: 161 QRS: -15 QRSD: 93 T: 15 QT: 376 QTc: 398 Interpretive Statements SINUS RHYTHM us Tracy Olivares MD PROCEDURES-ORDERABLE NO CHARGE F inal Result [facility] RAD documented in this encounter [...] documented as of this encounter Care Teams Metal Cans Supervisor Relationship Specialty Start Date End Date Tracy Olivares MD 1188 [facility] [address] [place] [address] PCP - General INTERNAL MEDICINE 01/02/21 Nathan Baig MD [address] [address] Consulting Physician Internal Medicine Pulmonary Disease 09/16/21 documented as of this encounter
--- OUTSIDE RECORDS SUMMARY | 2024-09-07 15:18 | XMS_ITS | Encounter Summary ---
Author Organization [facility] Address [address] [place] [address]. [place], [place] [address] [place] [address] Care Team Providers Care Personnel Clerks Supervisor Name Role Phone Tracy Olivares MD Primary Care Provider [phone] Nathan Baig MD Unavailable [phone] Reason for Visit * Reason Onset Date Comments Medication Request 06/30/2023 Encounter Details Date Type Department Care Team (Late st Contact Info) Description 06/30/2023 Telephone [facility] Multispecialty Care - [place] [address] [place] [address] [address] [place] [address] [place] [address] [place] [address] 157 [place] [address] Medication Request Social History Tobacco [...] st Contact Info) Description 10/03/2024 11:00 AM BANDER AND CELLOPHANER MACHINE Office Visit [facility] Pulmonology Specialty Clinic - [address] [address] Nathan Baig MD [address] [address] 11/14/2024 10:20 AM BANDER AND CELLOPHANER MACHINE Office Visit [facility] Multispecialty Care - [place] [address] [address] [place] [address] Tracy Olivares MD [address] [place] [address] documented as of this encounter Visit Diagnoses Not on filedocumented in this encounter Additional Health Concerns Assessment Noted Time PHQ-9 Depression Total Score: 11 01/07/2 023 1:30 PM CDT documented as of this encounter Care Teams Personnel Clerks Supervisor Relationship Specialty Start Date End Date Tracy Olivares MD [address] [place] [address] PCP - General INTERNAL MEDICINE 01/02/21 Nathan Baig MD 3 [facility] [address] [place] [address] Consulting Physician Internal Medicine Pulmonary Disease 09/16/21 documented as of this encounter
--- OUTSIDE RECORDS SUMMARY | 2024-09-07 15:18 | XMS_ITS | Encounter Summary ---
Author Organization [facility] Address [address] [place] [address]. [place], [place] [address] [place] [address] Care Team Providers Care Automatic Grinder Operator Name Role Phone Tracy Olivares MD Primary Care Provider [phone] Nathan Baig MD Unavailable [phone] Reason for Referral * Consultation (Routine) - Closed Specialty Diagnoses / Procedures Referred By Contact Referred To Contact NUTRITION / ENDOCRINOLOGY Diagnoses Prediabetes Class 3 severe obesity due to excess calories without serious comorbidity with body mass index (BMI) of 50.0 to 59.9 in adult ([facility]) Procedures OFFICE/OUTPT VISIT,NEW,LEVL III OFFICE/OUTPT VISIT,NEW,LEVL IV OFFICE/OUTPT VISIT,NEW,LEVL V OFFICE/OUTPT VISIT,EST,LEVL III OFFICE/OUTPT VISIT,EST,LEVL IV OFFICE/OUTPT VISIT,EST,LEVL V Tracy Olivares MD 118[address] [facility] [address] [place] [address] Phone: tel:[phone] [facility] Medical [facility] Diabetes and Endocrinology - [place] [address] [place] [address] Phone: tel: fax: Referral ID Status Reason Start Date Expiration Date Visits Re quested Visits Authorized [id number] Closed 02/25/2023 03/27/2024 99 99 Reason for Visit * Reason Onset Date Comments Referral 02/25/2023 Encounter Details Date Type Department Care Team (Late st Contact Info) Description 02/25/2023 Telephone [facility] Medical [facility] Multispecialty Care [place] [address] [place] [address] [address] [place] [address] Tracy Olivares MD [address] [facility] [address] [place], [place] [address] Referral Social History Tobacco Use Types Packs/Day [...] Pt is requesting a referral for a music department chair , needs to take some weight off, pt states she does noteat that much and is still gaining weight documented in this encounter Plan of Treatment Upcoming Encounters Date Type Department Care Team (Late st Contact Info) Description 10/03/2024 11:00 AM SUPERINTENDENT DIVISION Office Visit [facility] Pulmonology Specialty Clinic - [address] [address] Nathan Baig MD 3 [facility] [address] [place] [address] 11/14/2024 10:20 AM SUPERINTENDENT DIVISION Office Visit [facility] Multispecialty Care - [place] [address] [address] [place] [address] Tracy Olivares MD [address] [address] Scheduled Referrals Name Type Priority Associated Diagnoses Orde r Schedule Ambulatory Referral to Dietitian/Nutrition Referral Routine Prediabetes Class 3 severe obesity due to excess calories without serious comorbidity with body mass index (BMI) of 50.0 to 59.9 in adult ([facility]) Ordered: 02/25/2023 documented as of this encounter Visit Diagnoses Diagnosis Prediabetes- Primary Other abnormal glucose Class 3 severe obesity due to excess calories without serious comorbidity with body mass index (BMI) of 50.0 to 59.9 in adult ([facility]) documented in this encounter Additional Health Concerns Assessment Noted Time PHQ-9 Depression Total Score: 11 01/07/ 023 1:30 PM CDT documented as of this encounter Care Teams Automatic Grinder Operator Relationship Specialty Start Date End Date Tracy Olivares MD [address] [place] [address] PCP - General INTERNAL MEDICINE 01/02/21 Nathan Baig MD 3 [facility] [address] [place] [address] Consulting Physician Internal Medicine Pulmonary Disease 09/16/21 documented as of this encounter
--- OUTSIDE RECORDS SUMMARY | 2024-09-07 15:18 | XMS_ITS | Encounter Summary ---
Author Organization [facility] Address [address] [place] [address]. [place] [id number] [place] [address] Care Team Providers Care Resistance Machine Welder Setter Name Role Phone Tracy Olivares MD Primary Care Provider [phone] Nathan Baig MD Unavailable [phone] Reason for Visit * Reason Comments BP Check Encounter Details Date Type Department Care Team (Late st Contact Info) Description 09/01/2022 9:30 AM WASHROOM CLEANER Allied Health/Nurse Visit [facility] Medical Group Multispecialty Care - [place] [address] [address] [place] [address] Tracy Olivares MD [address] [place] [address] 157 [place] [address] BP Check Social History Tobacco [...] Coronavirus/COVID-19? No / Unsure 09/01/2022 9:22 AM WASHROOM CLEANER documented as of this encounter Last Filed Vital Signs Vital Sign Reading Time Taken Comments Blood Pressure 159/90 09/01/2022 10:39 AM WASHROOM CLEANER Pulse - - Temperature - - Respiratory [...] atthis time. Tracy Olivares MD Internal Medicine [facility], [facility]. ROOM CLEANER documented in this encounter Plan of Treatment Upcoming Encounters Date Type Department Care Team (Late st Contact Info) Description 10/03/2024 11:00 AM WASHROOM CLEANER Office Visit [facility] Pulmonology Specialty Clinic - [address] [address] Nathan Baig MD [address] [address] 11/14/2024 10:20 AM WASHROOM CLEANER Office Visit [facility] Multispecialty Care - [place] [address] [address] [place] [address] Tracy Olivares MD [address] [place] [address] documented as of this encounter Visit Diagnoses Diagnosis Essential hypertension- Primary Unspecified essential hypertension documented in this encounter Additional Health Concerns Assessment Noted Time PHQ-9 Depression Total Score: 5 01/06/20 22 10:48 AM CDT documented as of this encounter Care Teams Resistance Machine Welder Setter Relationship Specialty Start Date End Date Tracy Olivares MD [address] [address] PCP - General INTERNAL MEDICINE 01/02/21 Nathan Baig MD [address] [address] Consulting Physician Internal Medicine Pulmonary Disease 09/16/21 documented as of this encounter
--- OUTSIDE RECORDS SUMMARY | 2024-09-07 15:18 | XMS_ITS | Encounter Summary ---
Author Organization [facility] Address [address] [place] [address]. [place], [place] [address] [place] [address] Care Team Providers Care Customer Service Sales Associate Name Role Phone Tracy Olivares MD Primary Care Provider [phone] Nathan Baig MD Unavailable [phone] Reason for Visit * Reason Onset Date Comments Referral 02/09/2023 Encounter Details Date Type Department Care Team (Late st Contact Info) Description 02/09/2023 Telephone [facility] Medical Group Multispecialty Care - [place] [address] [place] [address] [address] [place] [address] [place] [address] [place] [address] 157 [place] [address] Referral Social History Tobacco Use [...] st Contact Info) Description 10/03/2024 11:00 AM TOUR GUIDE Office Visit [facility] Medical [facility] Pulmonology Specialty Clinic - [address] [address] Nathan Baig MD [address] [address] 11/14/2024 10:20 AM TOUR GUIDE Office Visit [facility] Multispecialty Care - [place] [address] [address] [place] [address] Tracy Olivares MD [address] [address] documented as of this encounter Visit Diagnoses Not on filedocumented in this encounter Additional Health Concerns Assessment Noted Time PHQ-9 Depression Total Score: 11 01/07/ 023 1:30 PM CDT documented as of this encounter Care Teams Customer Service Sales Associate Relationship Specialty Start Date End Date Tracy Olivares MD [address] [place] [address] PCP - General INTERNAL MEDICINE 01/02/21 Nathan Baig MD [address] [address] Consulting Physician Internal Medicine Pulmonary Disease 09/16/21 documented as of this encounter
--- OUTSIDE RECORDS SUMMARY | 2024-09-07 15:18 | XMS_ITS | Encounter Summary ---
Author Organization [facility] Address [address] [place] [address]. [place], [place] [address] [place] [address] Care Team Providers Care Public Works Director Name Role Phone Tracy Olivares MD Primary Care Provider [phone] Nathan Baig MD Unavailable [phone] Reason for Visit * Reason Onset Date Comments Question 07/05/2022 Encounter Details Date Type Department Care Team (Late st Contact Info) Description 07/05/2022 Telephone [facility] Medical Group Multispecialty Care - [facility] [address] [facility] [address] [place] [address] Nathan Baig MD 3 [facility] [address] [place], [place] [id number] Question Social History Tobacco Use Types Packs/Day [...] st Contact Info) Description 10/03/2024 11:00 AM WAREHOUSE DISTRIBUTION ASSOCIATE Office Visit [facility] Medical [facility] Pulmonology Specialty Clinic - [address] [address] Nathan Baig MD [address] [address] 11/14/2024 10:20 AM WAREHOUSE DISTRIBUTION ASSOCIATE Office Visit [facility] Multispecialty Care - [place] [address] [address] [place] [address] Tracy Olivares MD [address] [place] [address] documented as of this encounter Visit Diagnoses Diagnosis Thrush- Primary Candidiasis of mouth documented in this encounter Additional Health Concerns Assessment Noted Time PHQ-9 Depression Total Score: 5 01/06/20 10:48 AM CDT documented as of this encounter Care Teams Public Works Director Relationship Specialty Start Date End Date Tracy Olivares MD [address] [place] [address] PCP - General INTERNAL MEDICINE 01/02/21 Nathan Baig MD [address] [address] Consulting Physician Internal Medicine Pulmonary Disease 09/16/21 documented as of this encounter
--- OUTSIDE RECORDS SUMMARY | 2024-09-07 15:18 | XMS_ITS | Encounter Summary ---
Author Organization [facility] Address [address] [place] [address]. [place] [id number] [place] [address] Care Team Providers Care Research Psychologist Name Role Phone Tracy Olivares MD Primary Care Provider [phone] Nathan Baig MD Unavailable [phone] Reason for Visit * Reason Comments Follow Up Jess Camejo Li pitor Depression Encounter Details Date Type Department Care Team (Latest Contact Info) Description 07/05/2023 2:40 PM CDT Office Visit [facility] Medical Group Multispecialty Care - [place] [address] [address] [place] [address] [place] [address] [place] [address] 157 [place], [place] [id number] Follow Up (Jess Camejo, Lipitor); Depression Social [...] Care Everywhere. * Depression Discharge Instructions, Adult (French) documented in this encounter Progress Notes * [...] the day of the encounter. This includes ljhc-bm-qffc and jvo-ivwh-pi-face time I provided on the day of [...] was at least in part performed using PingSome and there may be some inherent flaws in this slip filler due to the nature of this program. Tracy Olivares MD Internal Medicine [facility]. documented in this encounter Plan of Treatment Upcoming Encounters Date Type Department Care Team (Late st Contact Info) Description 10/03/2024 11:00 AM PROJECT MANAGER RETAIL Office Visit [facility] Pulmonology Specialty Clinic - [address] [address] Nathan Baig MD 3 [facility] 5000 [place] [address] 11/14/2024 10:20 AM PROJECT MANAGER RETAIL Office Visit [facility] Multispecialty Care - [place] [address] [address] [place] [address] Tracy Olivares MD [address] [address] documented as of this encounter Visit Diagnoses Diagnosis Moderate episode of recurrent major depressive disorder ([facility])- Primary Prediabetes Other abnormal glucose Mixed hyperlipidemia documented in this encounter Additional Health Concerns Assessment Noted Time PHQ-9 Depression Total Score: 16 023 3:44 PM CDT documented as of this encounter Care Teams Research Psychologist Relationship Specialty Start Date End Date Tracy Olivares MD [address] [place] [address] PCP - General INTERNAL MEDICINE 01/02/21 Nathan Baig MD 3 [facility] [address] [place] [address] Consulting Physician Internal Medicine Pulmonary Disease 09/16/21 documented as of this encounter
--- OUTSIDE RECORDS SUMMARY | 2024-09-07 15:18 | XMS_ITS | Encounter Summary ---
Author Organization [facility] Address [address] [place] [address]. [place], [place] [address] [place] [address] Care Team Providers Care Workforce Management Consultant Name Role Phone Tracy Olivares MD Primary Care Provider [phone] Nathan Baig MD Unavailable [phone] Reason for Visit * Reason Comments [...] CARE Diagnoses FOLLOW UP Tracy Olivares MD [address] [place] [address] Phone: tel: fax: Nathan Baig MD [address] [address] Phone: tel: fax: Referral ID Status Reason Start Date Expiration Date V isits Requested Visits Authorized [id number] Closed Specialty Services 04/23/2022 04/23/2024 100 100 Encounter Details Date Type Department Care Team (Late st Contact Info) Description 10/29/2022 10:00 AM SUPERVISOR RIDE ASSEMBLY Office Visit [facility] Medical Group Pulmonology Specialty Clinic - [address] [address] Nathan Baig MD [address] [address] Obstructive Sleep Apnea (Has CPAP; not used [...] Coronavirus/COVID-19? No / Unsure 10/29/2022 9:44 AM SUPERVISOR RIDE ASSEMBLY documented as of this encounter Last Filed Vital Signs Vital Sign Reading Time Taken Comments Blood Pressure 118/75 10/29/2022 9:46 AM SUPERVISOR RIDE ASSEMBLY Pulse 74 10/29/2022 9:46 AM SUPERVISOR RIDE ASSEMBLY Temperature 36.4 ??C (97.5 ??F) 10/29/2022 9:46 AM CS T Respiratory Rate 16 10/29/2022 9:46 AM SUPERVISOR RIDE ASSEMBLY Oxygen Saturation 100% 10/29/2022 9:46 AM SUPERVISOR RIDE ASSEMBLY Inhaled Oxygen Concentration - - Weight 128.8 kg (284 lb) 10/29/2022 9:46 AM SUPERVISOR RIDE ASSEMBLY Height 161.3 cm (5' 3.5 ) 10/29/2022 9:46 AM SUPERVISOR RIDE ASSEMBLY Body Mass Index 49.52 10/29/2022 9:46 AM SUPERVISOR RIDE ASSEMBLY documented in this encounter Progress Notes * Nathan Baig MD - 10/29/2022 10:00 AM CST She is [facility] PULMONARY MEDICINE History Chief Complaint Patient [...] by mouth daily. 90 tablet 2 ??? Uwbxklrqwhz-Wixjbsujj-Ugdtoo (TRELEGY ELLIPTA) 100-62.5-25 MCG/ACT AEROSOL POWDER, BREATH [...] 6 months (around 04/28/2023). Nathan Baig MD RVISOR RIDE ASSEMBLY documented in this encounter Plan of Treatment Upcoming Encounters Date Type Department Care Team (Late st Contact Info) Description 10/03/2024 11:00 AM SUPERVISOR RIDE ASSEMBLY Office Visit [facility] Pulmonology Specialty Clinic - [address] [address] Nathan Baig MD [address] [address] 11/14/2024 10:20 AM SUPERVISOR RIDE ASSEMBLY Office Visit [facility] Multispecialty Care - [place] [address] [address] [place] [address] Tracy Olivares MD [address] [address] documented as of this encounter Visit Diagnoses Diagnosis FAISAL on CPAP- Primary Obstructive sleep apnea (adult) (pediatric) Class 3 severe obesity due to excess calories without serious comorbidity with body mass index (BMI) of 45.0 to 49.9 in adult ([facility]) Seasonal allergies Allergic rhinitis, cause unspecified documented in this encounter Additional Health Concerns Assessment Noted Time PHQ-9 Depression Total Score: 5 01/06/20 10:48 AM CDT documented as of this encounter Care Teams Workforce Management Consultant Relationship Specialty Start Date End Date Tracy Olivares MD [address] [place] [address] PCP - General INTERNAL MEDICINE 01/02/21 Nathan Baig MD 3 [facility] 5000 [place] [address] Consulting Physician Internal Medicine Pulmonary Disease 09/16/21 documented as of this encounter
--- OUTSIDE RECORDS SUMMARY | 2024-09-07 15:18 | XMS_ITS | Encounter Summary ---
Author Organization [facility] Address [address] [place] [address]. [place], [place] [address] [place] [address] Care Team Providers Care Office Inspector Name Role Phone Tracy Olivares MD Primary Care Provider [phone] Nathan Baig MD Unavailable [phone] Encounter Details Date Type Department Care [...] Contact Info) Description 10/03/2024 11:00 AM HAND WOVEN CARPET AND RUG MENDER Office Visit [facility] Medical Group Pulmonology Specialty Clinic - [address] [place], [place] [address] Nathan Baig MD 3 [facility] [address] [place] [address] 11/14/2024 10:20 AM HAND WOVEN CARPET AND RUG MENDER Office Visit [facility] Medical Group Multispecialty Care - [place] [address] [address] [place] [address] Tracy Olivares MD Critical access hospital[address] [address] documented as of this encounter Visit Diagnoses Not on filedocumented in this encounter Additional Health Concerns Assessment Noted Time PHQ-9 Depression Total Score: 5 01/06/20 10:48 AM CDT documented as of this encounter Care Teams Office Inspector Relationship Specialty Start Date End Date Tracy Olivares MD [address] [place] [address] PCP - General INTERNAL MEDICINE 01/02/21 Nathan Baig MD 3 [facility] [address] [place] [address] Consulting Physician Internal Medicine Pulmonary Disease 09/16/21 documented as of this encounter
--- OUTSIDE RECORDS SUMMARY | 2024-09-07 15:18 | XMS_ITS | Encounter Summary ---
Author Organization [facility] Address [address] [place] [address]. [place] [phone] [place] [address] Care Team Providers Care Press Operator Heavy Duty Name Role Phone Tracy Olivares MD Primary Care Provider [phone] Nathan Baig MD Unavailable [phone] Reason for Visit * Reason Comments Allied Health Visit Pt is here for BP ch andrea Encounter Details Date Type Department Care Team (Latest Contact Info) Description 01/24/2023 11:00 AM CDT Allied Health/Nurse Visit [facility] Medical Group Multispecialty Care - [place] [address] [address] [place] [address] [place] [address] [place] [address] 157 [place], [place] [phone] Allied Health Visit (Pt is here for [...] st Contact Info) Description 10/03/2024 11:00 AM MORTUARY TECHNICIAN Office Visit [facility] Medical Group Pulmonology Specialty Clinic - [address] [address] Nathan Baig MD [address] [place] [address] 11/14/2024 10:20 AM MORTUARY TECHNICIAN Office Visit [facility] Multispecialty Care - [place] [address] [address] [place] [address] Tracy Olivares MD [address] [place] [address] documented as of this encounter Visit Diagnoses Diagnosis Hypertension, unspecified type- Primary documented in this encounter Additional Health Concerns Assessment Noted Time PHQ-9 Depression Total Score: 11 01/07/ 023 1:30 PM CDT documented as of this encounter Care Teams Press Operator Heavy Duty Relationship Specialty Start Date End Date Tracy Olivares MD [address] [place] [address] PCP - General INTERNAL MEDICINE 01/02/21 Nathan Baig MD [address] [id number] Consulting Physician Internal Medicine Pulmonary Disease 09/16/21 documented as of this encounter
--- OUTSIDE RECORDS SUMMARY | 2024-09-07 15:18 | XMS_ITS | Encounter Summary ---
Author Organization [facility] Address [address] [place] [address]. [place], [place] [address] [place] [address] Care Team Providers Care Machine Set Up Technician Name Role Phone Tracy Olivares MD Primary Care Provider [phone] Nathan Baig MD Unavailable Encounter Details Date [...] Coronavirus/COVID-19? No / Unsure 10/29/2022 9:44 AM HEATING TECHNICIAN documented as of this encounter Plan of Treatment Upcoming Encounters Date Type Department Care Team ( Contact Info) Description 10/03/2024 11:00 AM HEATING TECHNICIAN Office Visit [facility] Medical Group Pulmonology Specialty Clinic - [address] [place] [address] Nathan Baig MD [address] [address] 11/14/2024 10:20 AM HEATING TECHNICIAN Office Visit [facility] Medical Group Multispecialty Care - [place] [address] [address] [place] [address] Tracy Olivares MD [address] [place] [address] documented as of this encounter Visit Diagnoses Not on filedocumented in this encounter Additional Health Concerns Assessment Noted Time PHQ-9 Depression Total Score: 5 01/06/20 10:48 AM CDT documented as of this encounter Care Teams Machine Set Up Technician Relationship Specialty Start Date End Date Tracy Olivares MD [address] [place] [address] PCP - General INTERNAL MEDICINE 01/02/21 Nathan Baig MD [address] [address] Consulting Physician Internal Medicine Pulmonary Disease 09/16/21 documented as of this encounter
--- OUTSIDE RECORDS SUMMARY | 2024-09-07 15:18 | XMS_ITS | Encounter Summary ---
Author Organization [facility] Address [address] [place] [address]. [place], [place] [address] [place] [address] Care Team Providers Care Inventory Taker Name Role Phone Tracy Olivares MD Primary Care Provider [phone] Nathan Baig MD Unavailable [phone] Encounter Details Date Type Department Care [...] st Contact Info) Description 10/03/2024 11:00 AM TOURIST AGENT Office Visit [facility] Medical Group Pulmonology Specialty Clinic - [address] [place] [address] Nathan Baig MD [address] [place] [address] 11/14/2024 10:20 AM TOURIST AGENT Office Visit [facility] Medical Group Multispecialty Care - [address] [place] [address] Tracy Olivares MD [address] [place] [address] documented as of this encounter Visit Diagnoses Not on filedocumented in this encounter Additional Health Concerns Assessment Noted Time PHQ-9 Depression Total Score: 16 023 3:44 PM CDT documented as of this encounter Care Teams Inventory Taker Relationship Specialty Start Date End Date Tracy Olivares MD [address] [place] [address] PCP - General INTERNAL MEDICINE 01/02/21 Nathan Baig MD [address] [address] Consulting Physician Internal Medicine Pulmonary Disease 09/16/21 documented as of this encounter
--- OUTSIDE RECORDS SUMMARY | 2024-09-07 15:18 | XMS_ITS | Encounter Summary ---
Author Organization [facility] Address [address] [place] [address]. [place], [place] [address] [place] [address] Care Team Providers Care Health Policy Manager Name Role Phone Tracy Olivares MD Primary Care Provider [phone] Nathan Baig MD Unavailable [phone] Reason for Visit * Reason Onset Date Comments Appointment Request 11/03/2022 AWV schedule d Encounter Details Date Type Department Care Team (Late st Contact Info) Description 11/03/2022 Telephone [facility] Medical Group Multispecialty Care - [place] [address] [place] [address] [address] [place] [address] Tracy Olivares MD [address] [place] [address] 157 [place] [address] Appointment Request (AWV scheduled) Social History Tobacco [...] Coronavirus/COVID-19? No / Unsure 10/29/2022 9:44 AM NET TRAINER documented as of this encounter Progress Notes * Alexandra Waggoner RN - 11/03/2022 2:42 PM CST Telephone call placed to patient. Nurse introduced herself and explained her role as the Wellness Visit Nurse. Patient agreed to schedule Annual Wellness Visit for 11/24 TRAINER documented in this encounter Plan of Treatment Upcoming Encounters Date Type Department Care Team (Late st Contact Info) Description 10/03/2024 11:00 AM NET TRAINER Office Visit [facility] Medical Group Pulmonology Specialty Clinic - [address] [address] Nathan Baig MD 3 [facility] 5000 [place] [address] 11/14/2024 10:20 AM NET TRAINER Office Visit [facility] Multispecialty Care - [place] [address] [address] [place] [address] Tracy Olivares MD [address] [place] [address] documented as of this encounter Visit Diagnoses Not on filedocumented in this encounter Additional Health Concerns Assessment Noted Time PHQ-9 Depression Total Score: 5 01/06/20 22 10:48 AM CDT documented as of this encounter Care Teams Health Policy Manager Relationship Specialty Start Date End Date Tracy Olivares MD [address] [place] [address] PCP - General INTERNAL MEDICINE 01/02/21 Nathan Baig MD 3 [facility] [address] [place] [address] Consulting Physician Internal Medicine Pulmonary Disease 09/16/21 documented as of this encounter
--- OUTSIDE RECORDS SUMMARY | 2024-09-07 15:18 | XMS_ITS | Encounter Summary ---
Author Organization [facility] Address [address] [place] [address]. [place], [place] [address] [place] [address] Care Team Providers Care Top Lift Nailer Name Role Phone Tracy Olivares MD Primary Care Provider Nathan Baig MD Unavailable [phone] Marisel Mancini RN Unavailable [phone] Encounter Details Date Type Department Care Team (Late Contact Info) Description 01/11/2023 SOLEM Electronique Message Enc [facility] Medical Group Multispecialty Care - [address] [place] [address] [employer], [facility] Provider lab results Social History Tobacco Use [...] (Late Contact Info) Description 10/03/2024 11:00 AM SHIPYARD PAINTER HELPER Office Visit [facility] Pulmonology Specialty Clinic - [address] [address] Nathan Baig MD [address] [address] 11/14/2024 10:20 AM SHIPYARD PAINTER HELPER Office Visit [facility] Multispecialty Care - [place] [address] [address] [place] [address] Tracy Olivares MD [address] [place] [address] documented as of this encounter Visit Diagnoses Not on filedocumented in this encounter Additional Health Concerns Assessment Noted Time PHQ-9 Depression Total Score: 11 01/07/ 023 1:30 PM CDT documented as of this encounter Care Teams Top Lift Nailer Relationship Specialty Start Date End Date Tracy Olivares MD [address] [place] [address] PCP - General INTERNAL MEDICINE 01/02/21 Nathan Baig MD [address] [address] Consulting Physician Internal Medicine Pulmonary Disease 09/16/21 Marisel Mancini, RN [address] [place] [address] Well Logging Captain Mud Analysis (Ambulatory) REGISTERED NURSE 06/28/24 08/07/24 documented as of this encounter
--- OUTSIDE RECORDS SUMMARY | 2024-09-07 15:18 | XMS_ITS | Encounter Summary ---
Author Organization [facility] Address [address] [place] [address]. [place], [place] [address] [place] [address] Care Team Providers Care Manager Of Training Name Role Phone Tracy Olivares MD Primary Care Provider [phone] Nathan Baig MD Unavailable [phone] Encounter Details Date Type Department Care [...] st Contact Info) Description 10/03/2024 11:00 AM FARM FACILITY MANAGER Office Visit [facility] Medical Group Pulmonology Specialty Clinic - [address] [place] [address] Nathan aBig MD [address] [place] [address] 11/14/2024 10:20 AM FARM FACILITY MANAGER Office Visit [facility] Medical Group Multispecialty Care - [address] [place] [address] Tracy Olivares MD [address] [place] [address] documented as of this encounter Visit Diagnoses Not on filedocumented in this encounter Additional Health Concerns Assessment Noted Time PHQ-9 Depression Total Score: 11 023 1:30 PM CDT documented as of this encounter Care Teams Manager Of Training Relationship Specialty Start Date End Date Tracy Olivares MD [address] [place] [address] PCP - General INTERNAL MEDICINE 01/02/21 Nathan Baig MD [address] [address] Consulting Physician Internal Medicine Pulmonary Disease 09/16/21 documented as of this encounter
--- OUTSIDE RECORDS SUMMARY | 2024-09-07 15:18 | XMS_ITS | Encounter Summary ---
Author Organization [facility] Address [address] [place] [address]. [place], [place] [address] [place] [address] Care Team Providers Care Computer Systems Support Specialist Name Role Phone Tracy Olivares MD Primary Care Provider [phone] Nathan Baig MD Unavailable [phone] Encounter Details Date Type Department Care [...] Coronavirus/COVID-19? No / Unsure 09/01/2022 9:22 AM MEDICAL DIRECTOR OCCUPATIONAL HEALTH documented as of this encounter Plan of Treatment Upcoming Encounters Date Type Department Care Team ( Contact Info) Description 10/03/2024 11:00 AM MEDICAL DIRECTOR OCCUPATIONAL HEALTH Office Visit [facility] Medical Group Pulmonology Specialty Clinic - [address] [place] [address] Nathan Baig MD [address] [address] 11/14/2024 10:20 AM MEDICAL DIRECTOR OCCUPATIONAL HEALTH Office Visit [facility] Medical Group Multispecialty Care - [place] [address] [address] [place] [address] Tracy Olivares MD [address] [place] [address] documented as of this encounter Visit Diagnoses Not on filedocumented in this encounter Additional Health Concerns Assessment Noted Time PHQ-9 Depression Total Score: 5 01/06/20 10:48 AM CDT documented as of this encounter Care Teams Computer Systems Support Specialist Relationship Specialty Start Date End Date Tracy Olivares MD [address] [place] [address] PCP - General INTERNAL MEDICINE 01/02/21 Nathan Baig MD [address] [address] Consulting Physician Internal Medicine Pulmonary Disease 09/16/21 documented as of this encounter
--- OUTSIDE RECORDS SUMMARY | 2024-09-07 15:18 | XMS_ITS | Encounter Summary ---
Author Organization [facility] - [facility] Address [address] [place] [address]. [place] [id number] [place] [address] Care Team Providers Care News Broadcaster Name Role Phone Tracy Olivares MD Primary Care Provider [phone] Nathan Baig MD Unavailable [phone] Reason for Visit * Reason Comments Hyperlipidemia Weight Problem Encounter Details Date Type Department Care Team (Latest Contact Info) Description 06/29/2022 10:40 AM CDT Office Visit [facility] Medical Group Multispecialty Care - [place] [address] [address] [place] [address] Tracy Olivares MD [address] [place] [address] [address] [place] [address] Hyperlipidemia; Weight Problem Social History [...] through Care Everywhere. * Weight Loss Tips (Tamazight) documented in this encounter Progress Notes * [...] Nasal route daily. 16 g 5 ??? Zwbkljruhee-Cgwykiysp-Cqiniy (TRELEGY ELLIPTA) 100-62.5-25 MCG/ACT AEROSOL POWDER, BREATH [...] CPAP G47.33 327.23 OBSTRUCTIVE SLEEP APNEA SYNDROME Lgvblnbdjct-Ohanawewg-Mkfjeq (TRELEGYELLIPTA) 100-62.5-25 MCG/ACT AEROSOL POWDER, BREATH ACTIVATED [...] (BMI) of 45.0 to 49.9 in adult ([facility]) - this is her fourth [...] she will like refill on medication - Kdqzdwlwjwr-Mjnsgkwgl-Zfazbp (TRELEGY ELLIPTA) 100-62.5-25 MCG/ACT AEROSOL POWDER, BREATH [...] was at least in part performed using Moleculin speak and there may be some inherent flaws in this paving inspector due to the nature of this program. Tracy Olivares MD Internal Medicine [facility], [facility]. documented in this encounter Plan of Treatment Upcoming Encounters Date Type Department Care Team (Late st Contact Info) Description 10/03/2024 11:00 AM PACKAGING COORDINATOR Office Visit [facility] Pul[facility]ty [facility] - [place] [address] [place] [address] Nathan Baig MD [address] [address] 11/14/2024 10:20 AM PACKAGING COORDINATOR Office Visit [facility]pecialty Care - [place] [address] [place] [address] Tracy Olivares MD [address] [facility] [address] [place] [address] documented as of this encounter Procedures Procedure Name Priority Date/Time Associated Diagnosis Comments HEMOGLOBIN, GLYCOSYLATED Routine 07/02/2022 9:16 AM CDT Class 3 severe obesity due to excess calories without serious comorbidity with body mass index (BMI) of 45.0 to 49.9 in adult ([facility]) Abnormal finding of blood chemistry, [...] Final Result [facility] [address] [address] Tripathi [id number] * (ABNORMAL) COMPREHENSIVE METABOLIC PANEL (07/02/2022 9:16 AM CDT) [facility] GLUCOSE 99 65 - 99 mg/dL [facility] Comment: ? Fasting reference interval BUN 11 7 - 25 mg/dL [facility] CREATININE S/P/B 0.78 0.50 - 1.05 mg/dL [facility] GFR ESTIMATE 84 > OR = 60 mL/min/1. 73m2 [facility] Comment: The eGFR is based on the CKD-EPI 2020 equation. To calculate the new eGFR from a previous Creatinine or Cystatin C result, go to https://www.kidney.org/professionals/ kdoqi/gfr%5Fcalculator BUN CREATININE RATIO NOT APPLICABLE - (calc) [facility] SODIUM S/P/B 143 135 - 146 mmol/L [facility] POTASSIUM S/P/B 4.0 3.5 - 5.3 mmol/L [facility] CHLORIDE S/P/B 105 98 - 110 mmol/L [facility] CO2 30 20 - 32 mmol/L [facility] CALCIUM S/P/B 9.3 8.6 - 10.4 mg/dL [facility] TOTAL PROTEIN S/P/B 6.5 6.1 - 8.1 g/dL [facility] ALBUMIN S/P/B 3.5(L) 3.6 - 5.1 g/dL [facility] GLOBULIN 3.0 1.9 - 3.7 g/dL (calc) [facility] ALBUMIN/GLOBULI N RATIO 1.2 1.0 - 2.5 (calc) [facility] BILIRUBIN TOTAL S/P/B 0.6 0.2 - 1.2 mg/dL [facility] ALKALINE PHOSPHATASE S/P/B 146 37 - 153 U/L [facility] AST 10 10 - 35 U/L [facility] ALT 9 6 - 29 U/L [facility] 07/02/2022 9:16 AM CDT 07/03/2022 7:53 AM CDT Tracy Olivares MD LABORATORY Final Result [facility] [address] [address] Fig[address], JACKY [address] * LIPID PANEL (07/02/2022 9:16 AM CDT) [...] LDL-C. Buddy ANAND et al. PORTER. 2013;310(19): 9353-5007 (http://education.[employer].Lifesquare/faq/YDK058) CHOL/HDL RATIO 1.8 <5.0 (calc) [facility] [...] Result [facility] [address] [place] [address] documented in this encounter Visit Diagnoses Diagnosis Mixed hyperlipidemia- Primary Class 3 severe obesity due to excess calories without serious comorbidity with body mass index (BMI) of 45.0 to 49.9 in adult ([facility]) FAISAL on CPAP Obstructive sleep apnea (adult) (pediatric) Abnormal finding of blood chemistry, unspecified Prediabetes Other abnormal glucose documented in this encounter Additional Health Concerns Assessment Noted Time PHQ-9 Depression Total Score: 5 01/06/20 10:48 AM CDT documented as of this encounter Care Teams News Broadcaster Relationship Specialty Start Date End Date Tracy Olivares MD [address] [facility] [address] [place] [address] PCP - General INTERNAL MEDICINE 01/02/21 Nathan Baig MD [address] [address] Consulting Physician Internal Medicine Pulmonary Disease 09/16/21 documented as of this encounter
--- OUTSIDE RECORDS SUMMARY | 2024-09-07 15:18 | XMS_ITS | Encounter Summary ---
Author Organization [facility] Address [address] [place] [address]. [place], [place] [address] [place] [address] Care Team Providers Care Field Mechanical Meter Tester Name Role Phone Tracy Olivares MD Primary Care Provider [phone] Nathan Baig MD Unavailable [phone] Reason for Visit * Reason Onset Date Comments Appointment Request 03/01/2023 Encounter Details Date Type Department Care Team (Late st Contact Info) Description 03/01/2023 Telephone [facility] Diabetes and Endocrinology [place] [id number] [facility] [place] [address] Appointment Request Social History [...] No return call received from patient. * aVlencia Poole RD - 03/01/2023 2:33 PM CDT Attempted 1st call to patient to schedule an appt to see the dietitian. No answer so vm was left. Attempted 2nd call. documented in this encounter Plan of Treatment Upcoming Encounters Date Type Department Care Team (Late st Contact Info) Description 10/03/2024 11:00 AM DIRECTOR OF PARTNERSHIPS Office Visit [facility] Pulmonology Specialty Clinic - [address] [address] Nathan Baig MD [address] [place] [address] 11/14/2024 10:20 AM DIRECTOR OF PARTNERSHIPS Office Visit [facility] Medical [facility] Multispecialty Care - [place] [address] [address] [place] [address] Tracy Olivares MD [address] [place] [address] documented as of this encounter Visit Diagnoses Not on filedocumented in this encounter Additional Health Concerns Assessment Noted Time PHQ-9 Depression Total Score: 11 023 1:30 PM CDT documented as of this encounter Care Teams Field Mechanical Meter Tester Relationship Specialty Start Date End Date Tracy Olivares MD [address] [place] [address] PCP - General INTERNAL MEDICINE 01/02/21 Nathan Baig MD [address] [address] Consulting Physician Internal Medicine Pulmonary Disease 09/16/21 documented as of this encounter
--- OUTSIDE RECORDS SUMMARY | 2024-09-07 15:18 | XMS_ITS | Encounter Summary ---
Author Organization [facility] Address [address] [place] [address]. [place] [id number] [place], [place] [id number] Care Team Providers Care Mine Exploration Engineer Name Role Phone Tracy Olivares MD Primary Care Provider [phone] Nathan Baig MD Unavailable [phone] Reason for Visit * Reason Comments Lumbar Pain * Physical Medicine (Routine) - Closed Specialty Diagnoses / Procedures Referred By Heidi iverson Referred To Contact PHYSICAL THERAPY / [facility] Physical Therapy Diagnoses At risk for falling Procedures OFFICE/OUTPT VISIT,NEW,LEVL III OFFICE/OUTPT VISIT,NEW,LEVL IV OFFICE/OUTPT VISIT,NEW,LEVL V OFFICE/OUTPT VISIT,EST,LEVL III OFFICE/OUTPT VISIT,EST,LEVL IV OFFICE/OUTPT VISIT,EST,LEVL V Tracy Olivares MD [address] [place] [address] Phone: tel: fax: [facility] Physical Therapy [address] [place] [address] Phone: tel: fax: Referral ID Status Reason Start Date Expiration Date V isits Requested Visits Authorized [id number] Closed Physical Therapy 01/07/2023 09/11/2023 10 10 Encounter Details Date Type Department Care Team (Late st Contact Info) Description 02/14/2023 2:15 PM CDT Office Visit 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 See scanned patient history OBJECTIVE: POSTURE: increased [...] st Contact Info) Description 10/03/2024 11:00 AM TEA AND SPICE SUPERVISOR Office Visit [facility] Medical [facility] Pulmonology Specialty Clinic - [address] [address] Nathan Baig MD 3 [facility] [address] [place] [address] 11/14/2024 10:20 AM TEA AND SPICE SUPERVISOR Office Visit [facility] Multispecialty Care - [place] [address] [address] [place] [address] Tracy Olivares MD [address] [address] documented as of this encounter Visit Diagnoses Diagnosis Back pain- Primary Backache, unspecified Leg pain Pain in limb Balance disorder Other symptoms involving nervous and musculoskeletal systems documented in this encounter Additional Health Concerns Assessment Noted Time PHQ-9 Depression Total Score: 11 01/07/ 023 1:30 PM CDT documented as of this encounter Care Teams Mine Exploration Engineer Relationship Specialty Start Date End Date Tracy Olivares MD [address] [place] [address] PCP - General INTERNAL MEDICINE 01/02/21 Nathan Baig MD 3 [facility] [address] [place] [address] Consulting Physician Internal Medicine Pulmonary Disease 09/16/21 documented as of this encounter
--- OUTSIDE RECORDS SUMMARY | 2024-09-07 15:18 | XMS_ITS | Encounter Summary ---
Author Organization [facility] Address [address] [place] [address]. [place], [place] [address] [place] [address] Care Team Providers Care Horse And Wagon Driver Name Role Phone Tracy Olivares MD Primary Care Provider [phone] Nathan Baig MD Unavailable [phone] Encounter Details Date Type Department Care [...] Contact Info) Description 10/03/2024 11:00 AM LEGAL CLERK Office Visit [facility] Medical Group Pulmonology Specialty Clinic - [address] [place], [place] [address] Nathan Baig MD 3 [facility] [address] [place] [address] 11/14/2024 10:20 AM LEGAL CLERK Office Visit [facility] Medical Group Multispecialty Care - [place] [address] [address] [place] [address] Tracy Olivares MD [facility] [address] [address] documented as of this encounter Visit Diagnoses Not on filedocumented in this encounter Additional Health Concerns Assessment Noted Time PHQ-9 Depression Total Score: 5 01/06/20 10:48 AM CDT documented as of this encounter Care Teams Horse And Wagon Driver Relationship Specialty Start Date End Date Tracy Olivares MD [address] [place] [address] PCP - General INTERNAL MEDICINE 01/02/21 Nathan Baig MD 3 [facility] [address] [place] [address] Consulting Physician Internal Medicine Pulmonary Disease 09/16/21 documented as of this encounter
--- OUTSIDE RECORDS SUMMARY | 2024-09-07 15:18 | XMS_ITS | Encounter Summary ---
Author Organization [facility] Address [address] [place] [address]. [place], [place] [address] [place] [address] Care Team Providers Care General Internal Medicine Physician Name Role Phone Tracy Olivares MD Primary Care Provider Nathan Baig MD Unavailable [phone] Encounter Details Date Type Department Care [...] Contact Info) Description 10/03/2024 11:00 AM BUSINESS SUPPORT ADMINISTRATOR Office Visit [facility] Medical Group Pulmonology Specialty Clinic - [address] [place] [address] Nathan Baig MD [address] [place] [address] 11/14/2024 10:20 AM BUSINESS SUPPORT ADMINISTRATOR Office Visit [facility] Medical Group Multispecialty Care - [place] [address] [address] [place] [address] Tracy Olivares MD [address] [place] [address] documented as of this encounter Visit Diagnoses Not on filedocumented in this encounter Additional Health Concerns Assessment Noted Time PHQ-9 Depression Total Score: 5 01/06/20 10:48 AM CDT documented as of this encounter Care Teams General Internal Medicine Physician Relationship Specialty Start Date End Date Tracy Olivares MD [address] [place] [address] PCP - General INTERNAL MEDICINE 01/02/21 Nathan Baig MD [address] [address] Consulting Physician Internal Medicine Pulmonary Disease 09/16/21 documented as of this encounter
--- OUTSIDE RECORDS SUMMARY | 2024-09-07 15:18 | XMS_ITS | Encounter Summary ---
Author Organization [facility] Address [address] [place] [address]. [place], [place] [address] [place] [address] Care Team Providers Care Machinery Engineer Name Role Phone Tracy Olivares MD Primary Care Provider [phone] Nathan Baig MD Unavailable [phone] Encounter Details Date Type Department Care [...] Coronavirus/COVID-19? No / Unsure 09/01/2022 9:22 AM ANIMAL RESEARCHER documented as of this encounter Plan of Treatment Upcoming Encounters Date Type Department Care Team ( Contact Info) Description 10/03/2024 11:00 AM ANIMAL RESEARCHER Office Visit [facility] Medical Group Pulmonology Specialty Clinic - [address] [place] [address] Nathan Baig MD [address] [address] 11/14/2024 10:20 AM ANIMAL RESEARCHER Office Visit [facility] Medical Group Multispecialty Care - [place] [address] [address] [place] [address] Tracy Olivares MD [address] [place] [address] documented as of this encounter Visit Diagnoses Not on filedocumented in this encounter Additional Health Concerns Assessment Noted Time PHQ-9 Depression Total Score: 5 01/06/20 10:48 AM CDT documented as of this encounter Care Teams Machinery Engineer Relationship Specialty Start Date End Date Tracy Olivares MD [address] [place] [address] PCP - General INTERNAL MEDICINE 01/02/21 Nathan Baig MD [address] [address] Consulting Physician Internal Medicine Pulmonary Disease 09/16/21 documented as of this encounter
--- OUTSIDE RECORDS SUMMARY | 2024-09-07 15:18 | XMS_ITS | Encounter Summary ---
Author Organization [facility] - [facility] Address [address] [place] [address]. [place] [id number] [place] [address] Care Team Providers Care Log Processor Operator Name Role Phone Tracy Olivares MD Primary Care Provider [phone] Nathan Baig MD Unavailable [phone] Reason for Visit * Reason Onset Date Comments Orders 07/07/2023 Encounter Details Date Type Department Care Team (Late st Contact Info) Description 07/07/2023 Telephone [facility] Medical Group Multispecialty Care - [place] [address] [address] [place] [address] [place] [address] [place] [address] 157 [place], [place] [address] Orders Social History Tobacco Use Types Packs/Day [...] requesting a [facility] for [facility] new mask fitting. documented in this encounter Plan of Treatment Upcoming Encounters Date Type Department Care Team (Late st Contact Info) Description 10/03/2024 11:00 AM PERFORMANCE CONSULTANT Office Visit [facility] Medical [facility] Pulmonology Specialty Clinic - [address] [address] Nathan Baig MD [address] [address] 11/14/2024 10:20 AM PERFORMANCE CONSULTANT Office Visit [facility] Multispecialty Care - [place] [address] [address] [place] [address] Tracy Olivares MD [address] [place] [address] documented as of this encounter Visit Diagnoses Not on filedocumented in this encounter Additional Health Concerns Assessment Noted Time PHQ-9 Depression Total Score: 16 023 3:44 PM CDT documented as of this encounter Care Teams Log Processor Operator Relationship Specialty Start Date End Date Tracy Olivares MD [address] [place] [address] PCP - General INTERNAL MEDICINE 01/02/21 Nathan Baig MD [address] [address] Consulting Physician Internal Medicine Pulmonary Disease 09/16/21 documented as of this encounter
--- OUTSIDE RECORDS SUMMARY | 2024-09-07 15:18 | XMS_ITS | Encounter Summary ---
Author Organization [facility] Address [address] [place] [address]. [place], [place] [address] [place] [address] Care Team Providers Care Computer Systems Software Engineer Name Role Phone Tracy Olivares MD Primary Care Provider [phone] Nathan Baig MD Unavailable Reason for Visit * Reason Onset Date Comments Pre-visit Gap Closure 12/30/2022 Encounter Details Date Type Department Care Team (Latest Contact Info) Description 12/30/2022 Patient Outreach [facility] Medical Group Multispecialty Care - [address] [place] [address] Darlin Loving MA Pre-visit Gap [...] st Contact Info) Description 10/03/2024 11:00 AM FRONT END SOFTWARE DEVELOPER Office Visit [facility] Medical Group Pulmonology Specialty Clinic - [address] [address] Nathan Baig MD [address] [address] 11/14/2024 10:20 AM FRONT END SOFTWARE DEVELOPER Office Visit [facility] Multispecialty Care - [place] [address] [address] [place] [address] Tracy Olivares MD [address] [place] [address] documented as of this encounter Visit Diagnoses Not on filedocumented in this encounter Additional Health Concerns Assessment Noted Time PHQ-9 Depression Total Score: 5 01/06/20 10:48 AM CDT documented as of this encounter Care Teams Computer Systems Software Engineer Relationship Specialty Start Date End Date Tracy Olivares MD [address] [place] [address] PCP - General INTERNAL MEDICINE 01/02/21 Nathan Baig MD [address] [address] Consulting Physician Internal Medicine Pulmonary Disease 09/16/21 documented as of this encounter
--- OUTSIDE RECORDS SUMMARY | 2024-09-07 15:18 | XMS_ITS | Encounter Summary ---
Author Organization [facility] Address [address] [place] [address]. [place], [place] [address] [place] [address] Care Team Providers Care Toll Line Mechanic Name Role Phone Tracy Olivares MD Primary Care Provider [phone] Nathan Baig MD Unavailable [phone] Encounter Details Date Type Department Care [...] Coronavirus/COVID-19? No / Unsure 09/01/2022 9:22 AM ARCHIVES TECHNICIAN documented as of this encounter Plan of Treatment Upcoming Encounters Date Type Department Care Team (Late st Contact Info) Description 10/03/2024 11:00 AM ARCHIVES TECHNICIAN Office Visit [facility] Medical Group Pulmonology Specialty Clinic - [address] [place] [address] Nathan Baig MD 3 [facility] [address] [place] [address] 11/14/2024 10:20 AM ARCHIVES TECHNICIAN Office Visit [facility] Medical Group Multispecialty Care - [place] [address] [address] [place] [address] Tracy Olivares MD [facility] [address] [address] documented as of this encounter Visit Diagnoses Not on filedocumented in this encounter Additional Health Concerns Assessment Noted Time PHQ-9 Depression Total Score: 5 01/06/20 10:48 AM CDT documented as of this encounter Care Teams Toll Line Mechanic Relationship Specialty Start Date End Date Tracy Olivares MD [address] [place] [address] PCP - General INTERNAL MEDICINE 01/02/21 Nathan Baig MD 3 [facility] [address] [place] [address] Consulting Physician Internal Medicine Pulmonary Disease 09/16/21 documented as of this encounter
--- OUTSIDE RECORDS SUMMARY | 2024-09-07 15:19 | XMS_ITS | Encounter Summary ---
Author Organization [facility] Address [address] [place] [address]. [place], [place] [address] [place] [address] Care Team Providers Care Sandblasting Supervisor Name Role Phone Tracy Olivares MD Primary Care Provider [phone] Nathan Baig MD Unavailable [phone] Reason for Visit * Reason Onset Date Comments No Show 04/07/2022 Encounter Details Date Type Department Care Team ([facility] Contact Info) Description 04/07/2022 Telephone [facility] Physical Therapy [address] [place] [address] Darlene Rodgers, PT No Show [...] Upcoming Encounters Date Type Department Care Team ([facility] st Contact Info) Description 10/03/2024 11:00 AM SLURRY TANK OPERATOR Office Visit [facility] Medical [facility] Pulmonology Specialty Clinic - [address] [place] [address] Nathan Baig MD 3 [facility] [address] [place] [address] 11/14/2024 10:20 AM SLURRY TANK OPERATOR Office Visit [facility] Multispecialty Care - [place] [address] [address] [place] [address] Tracy Olivares MD [address] [place] [address] documented as of this encounter Visit Diagnoses Not on filedocumented in this encounter Additional Health Concerns Assessment Noted Time PHQ-9 Depression Total Score: 5 01/06/20 10:48 AM CDT documented as of this encounter Care Teams Sandblasting Supervisor Relationship Specialty Start Date End Date Tracy Olivares MD [address] [place] [address] PCP - General INTERNAL MEDICINE 01/02/21 Nathan Baig MD 3 [facility] [address] [place] [address] Consulting Physician Internal Medicine Pulmonary Disease 09/16/21 documented as of this encounter
--- OUTSIDE RECORDS SUMMARY | 2024-09-07 15:19 | XMS_ITS | Encounter Summary ---
Author Organization [facility] Address [address] [place] [address]. [place], [place] [address] [place] [address] Care Team Providers Care Tourist Cabin Keeper Name Role Phone Tracy Olivares MD Primary Care Provider Nathan Baig MD Unavailable [phone] Reason for Visit * Reason Onset Date Comments Medication Problem 03/08/2022 Encounter Details Date Type Department Care Team (Late st Contact Info) Description 03/08/2022 Telephone [facility] Medical Group Multispecialty Care [place] [address] [place] [address] [address] [place] [address] [place] [address] [place] [address] 157 [place] [address] Medication Problem Social History Tobacco [...] st Contact Info) Description 10/03/2024 11:00 AM CUSTOMER SUCCESS DIRECTOR Office Visit [facility] Medical [facility] - [address] [address] Nathan Baig MD [address] [address] 11/14/2024 10:20 AM CUSTOMER SUCCESS DIRECTOR Office Visit [facility] Multispecialty Care - [place] [address] [address] [place] [address] Tracy Olivares MD [facility] [address] documented as of this encounter Visit Diagnoses Not on filedocumented in this encounter Additional Health Concerns Assessment Noted Time PHQ-9 Depression Total Score: 5 01/06/20 22 10:48 AM CDT documented as of this encounter Care Teams Tourist Cabin Keeper Relationship Specialty Start Date End Date Tracy Olivares MD [address] [place] [address] PCP - General INTERNAL MEDICINE 01/02/21 Nathan Baig MD 3 [facility] [address] [place] [address] Consulting Physician Internal Medicine Pulmonary Disease 09/16/21 documented as of this encounter
--- OUTSIDE RECORDS SUMMARY | 2024-09-07 15:19 | XMS_ITS | Encounter Summary ---
Author Organization [facility] - [facility] Address [address] [place] [address]. [place], [place] [address] [place] [address] Care Team Providers Care Stoker Installer Name Role Phone Tracy Olivares MD Primary Care Provider [phone] Nathan Baig MD Unavailable [phone] Reason for Visit * Reason Onset Date Comments Results 01/17/2022 Encounter Details Date Type Department Care Team (Late st Contact Info) Description 01/17/2022 Telephone [facility] Medical Group Multispecialty Care - [place] [address] [place] [address] 157 [address] [place] [address] [place] [address] [place] [address] 157 [place] [address] Results Social History Tobacco Use [...] on 03/02/2022. Tracy Olivares MD Internal Medicine [facility]. documented in this encounter Plan of Treatment Upcoming Encounters Date Type Department Care Team (Late st Contact Info) Description 10/03/2024 11:00 AM FEED MIXER Office Visit [facility] Pulmonology Specialty Clinic - [address] [address] Nathan Baig MD [address] [place] [address] 11/14/2024 10:20 AM FEED MIXER Office Visit [facility] Multispecialty Care - [place] [address] [address] [place] [address] Tracy Olivares MD [address] [place] [address] documented as of this encounter Visit Diagnoses Not on filedocumented in this encounter Additional Health Concerns Assessment Noted Time PHQ-9 Depression Total Score: 5 01/06/20 10:48 AM CDT documented as of this encounter Care Teams Stoker Installer Relationship Specialty Start Date End Date Tracy Olivares MD 1188 [facility] [address] [place] [address] PCP - General INTERNAL MEDICINE 01/02/21 Nathan Baig MD [address] [address] Consulting Physician Internal Medicine Pulmonary Disease 09/16/21 documented as of this encounter
--- OUTSIDE RECORDS SUMMARY | 2024-09-07 15:19 | XMS_ITS | Encounter Summary ---
Author Organization [facility] - [facility] Address [address] [place] [address]. [place], [place] [address] [place] [address] Care Team Providers Care Healthcare Translator Name Role Phone Tracy Olivares MD Primary Care Provider [phone] Nathan Baig MD Unavailable [phone] Reason for Visit * Reason Onset Date Comments Follow Up Call 01/14/2022 Encounter Details Date Type Department Care Team (Late st Contact Info) Description 01/14/2022 Telephone [facility] Medical Group Multispecialty Care - [place] [address] [address] [place] [address] [place] [address] [place] [address] 157 [place] [address] Follow Up Call Social History [...] - 01/14/2022 10:12 AM CDT Spoke with [facility] on orders for breast images. All questions answered. documented in this encounter Plan of Treatment Upcoming Encounters Date Type Department Care Team (Late st Contact Info) Description 10/03/2024 11:00 AM CARDIO CLINICIAN Office Visit [facility] Medical [facility] Pulmonology Specialty Clinic - [address] [address] Nathan Baig MD [address] [address] 11/14/2024 10:20 AM CARDIO CLINICIAN Office Visit [facility] Multispecialty Care - [place] [address] [address] [place] [address] Tracy Olivares MD [address] [address] documented as of this encounter Visit Diagnoses Not on filedocumented in this encounter Additional Health Concerns Assessment Noted Time PHQ-9 Depression Total Score: 5 01/06/20 10:48 AM CDT documented as of this encounter Care Teams Healthcare Translator Relationship Specialty Start Date End Date Tracy Olivares MD [address] [place] [address] PCP - General INTERNAL MEDICINE 01/02/21 Nathan Baig MD 3 [facility] 5000 [place] [address] Consulting Physician Internal Medicine Pulmonary Disease 09/16/21 documented as of this encounter
--- OUTSIDE RECORDS SUMMARY | 2024-09-07 15:19 | XMS_ITS | Encounter Summary ---
Author Organization [facility] Address [address] [place] [address]. [place], [place] [address] [place] [address] Care Team Providers Care Financial Compliance Officer Name Role Phone Tracy Olivares MD Primary Care Provider [phone] Nathan Baig MD Unavailable [phone] Reason for Visit * Reason Onset Date Comments Other 02/09/2022 Refill request Encounter Details Date Type Department Care Team (Late st Contact Info) Description 02/09/2022 Telephone [facility] Medical Group Multispecialty Care - [place] [address] [address] [place] [address] [place] [address] [place] [address] 157 [place] [address] Other (Refill request) Social History [...] as of this encounter Progress Notes * Said Byrd - 02/09/2022 9:54 AM CDT Patient called and wants a refill on Tr[facility]ad[facility] [place]. She is getting ready to go onvacation and only has 1 pill left. documented in this encounter Plan of Treatment Upcoming Encounters Date Type Department Care Team (Late st Contact Info) Description 10/03/2024 11:00 AM LANDMEN Office Visit [facility] Medical Group Pulmonology Specialty Clinic - [address] [address] Nathan Baig MD [address] [place] [address] 11/14/2024 10:20 AM LANDMEN Office Visit [facility] Medical Group Multispecialty Care - [place] [address] [address] [place] [address] Tracy Olivares MD [address] [place] [address] documented as of this encounter Visit Diagnoses Diagnosis Chronic bilateral low back pain with bilateral sciatica Chronic pain of both knees documented in this encounter Additional Health Concerns Infection Onset Date Last Indicated Resolved Time COVID-19 Confirmed 01/19/2022 01/19/2022 12:32 AM CDT Assessment Noted Time PHQ-9 Depression Total Score: 5 01/06/20 22 10:48 AM CDT documented as of this encounter Care Teams Financial Compliance Officer Relationship Specialty Start Date End Date Tracy Olivares MD [address] [place] [address] PCP - General INTERNAL MEDICINE 01/02/21 Nathan Baig MD [address] [address] Consulting Physician Internal Medicine Pulmonary Disease 09/16/21 documented as of this encounter
--- OUTSIDE RECORDS SUMMARY | 2024-09-07 15:19 | XMS_ITS | Encounter Summary ---
Author Organization [facility] Address [address] [place] [address]. [place], [place] [address] [place] [address] Care Team Providers Care Office Services Coordinator Name Role Phone Tracy Olivares MD Primary Care Provider [phone] Nathan Baig MD Unavailable [phone] Reason for Visit * Reason Comments [...] ( Contact Info) Description 10/03/2024 11:00 AM CORPORATE CONTROLLER Office Visit [facility] Medical Group Pulmonology Specialty Clinic - [place] [address] [address] [place] [address] Nathan Baig MD [address] [address] 11/14/2024 10:20 AM CORPORATE CONTROLLER Office Visit [facility] Medical Group Multispecialty Care - [place] 1188 [facility] [address] [place] [address] Tracy Olivares MD 1188 [facility] 157 [place] [address] documented as of this encounter Procedures Procedure [...] as of this encounter Care Teams Office Services Coordinator Relationship Specialty Start Date End Date Tracy Olivares MD [address] [address] PCP - General INTERNAL MEDICINE 01/02/21 Nathan Baig MD [address] [address] Consulting Physician Internal Medicine Pulmonary Disease 09/16/21 documented as of this encounter
--- OUTSIDE RECORDS SUMMARY | 2024-09-07 15:19 | XMS_ITS | Encounter Summary ---
Author Organization [facility] Address [address] [place] [address]. [place], [place] [address] [place] [address] Care Team Providers Care Chief Operator Hydroformer Name Role Phone Tracy Olivares MD Primary Care Provider [phone] Nathan Baig MD Unavailable [phone] Encounter Details Date Type Department Care [...] st Contact Info) Description 10/03/2024 11:00 AM PROFESSOR OF ECONOMICS Office Visit [facility] Medical Group Pulmonology Specialty Clinic - [address] [place], [place] [address] Nathan Baig MD 3 [facility] [address] [place] [address] 11/14/2024 10:20 AM PROFESSOR OF ECONOMICS Office Visit [facility] Medical Group Multispecialty Care - [place] [address] [address] [place] [address] Tracy Olivares MD [facility] [address] [address] documented as of this encounter Visit Diagnoses Not on filedocumented in this encounter Additional Health Concerns Assessment Noted Time PHQ-9 Depression Total Score: 5 01/06/20 10:48 AM CDT documented as of this encounter Care Teams Chief Operator Hydroformer Relationship Specialty Start Date End Date Tracy Olivares MD [address] [place] [address] PCP - General INTERNAL MEDICINE 01/02/21 Nathan Baig MD 3 [facility] [address] [place] [address] Consulting Physician Internal Medicine Pulmonary Disease 09/16/21 documented as of this encounter
--- OUTSIDE RECORDS SUMMARY | 2024-09-07 15:19 | XMS_ITS | Encounter Summary ---
Author Organization [facility] Address [address] [place] [address]. [place], [place] [address] [place] [address] Care Team Providers Care Social And Political Studies Professor Name Role Phone Tracy Olivares MD Primary Care Provider [phone] Nathan Baig MD Unavailable [phone] Reason for Visit * Reason Onset Date Comments Follow Up Call 01/20/2022 Encounter Details Date Type Department Care Team (Late st Contact Info) Description 01/20/2022 Telephone [facility] Medical Group Multispecialty Care - [place] [address] [address] [place] [address] [place] [address] [place] [address] 157 [place] [address] Follow Up Call Social History [...] to my attention that she did not pepper picker her antiviral medication to help with her [...] to her. Tracy Olivares MD Internal Medicine [facility], [facility]. documented in this encounter Plan of Treatment Upcoming Encounters Date Type Department Care Team (Late st Contact Info) Description 10/03/2024 11:00 AM CDL COMPANY FLATBED DRIVER Office Visit [facility] Pulmonology Specialty Clinic - [address] [address] Nathan Baig MD [address] [place] [address] 11/14/2024 10:20 AM CDL COMPANY FLATBED DRIVER Office Visit [facility] Multispecialty Care - [place] [address] [address] [place] [address] Tracy Olivares MD [address] [place] [address] documented as of this encounter Visit Diagnoses Not on filedocumented in this encounter Additional Health Concerns Infection Onset Date Last Indicated Resolved Time COVID-19 Confirmed 01/19/2022 01/19/2022 12:32 AM CDT Assessment Noted Time PHQ-9 Depression Total Score: 5 01/06/20 10:48 AM CDT documented as of this encounter Care Teams Social And Political Studies Professor Relationship Specialty Start Date End Date Tracy Olivares MD 1188 [facility] 157 [place] [address] PCP - General INTERNAL MEDICINE 01/02/21 Nathan Baig MD [address] [address] Consulting Physician Internal Medicine Pulmonary Disease 09/16/21 documented as of this encounter
--- OUTSIDE RECORDS SUMMARY | 2024-09-07 15:19 | XMS_ITS | Encounter Summary ---
Author Organization [facility] Address [address] [place] [address]. [place], [place] [address] [place] [address] Care Team Providers Care Leasing Manager Name Role Phone Tracy Olivares MD Primary Care Provider [phone] Nathan Baig MD Unavailable [phone] Reason for Visit * Reason Comments Dilated Eye Exam (SCAN) Encounter Details Date Type Department Care Team ([facility] Contact Info) Description 01/19/2022 Scan HEALTH INFO [...] Upcoming Encounters Date Type Department Care Team ([facility] Contact Info) Description 10/03/2024 11:00 AM FREELANCE RECRUITER Office Visit [facility] Medical Group Pulmonology Specialty Clinic - [address] [address] Nathan Baig MD [address] [address] 11/14/2024 10:20 AM FREELANCE RECRUITER Office Visit [facility] Medical Group Multispecialty Care - [place] [address] [address] [place] [address] Tracy Olivares MD [address] [place] [address] documented as of this encounter Procedures Procedure Name Priority Date/Time Associated Diagnosis Comments DIABETIC RETINOPATHY EXAM (NEGATIVE)(SCAN ORDER) Routine 01/19/2022 documented in this encounter Results * DIABETIC RETINOPATHY EXAM (NEGATIVE)(SCAN) (01/19/2022) us Documents Scanned SCANNING Final Result [facility] documented in this encounter Visit Diagnoses Not on filedocumented in this encounter Additional Health Concerns Infection Onset Date Last Indicated Resolved Time COVID-19 Rule Out 01/19/2022 01/19/2022 01/19/2022 12:59 PM CDT COVID-19 Confirmed 01/19/2022 01/19/2022 12:32 AM CDT Assessment Noted Time PHQ-9 Depression Total Score: 5 01/06/20 22 10:48 AM CDT documented as of this encounter Care Teams Leasing Manager Relationship Specialty Start Date End Date Tracy Olivares MD [address] [place] [address] PCP - General INTERNAL MEDICINE 01/02/21 Nathan Baig MD [address] [address] Consulting Physician Internal Medicine Pulmonary Disease 09/16/21 documented as of this encounter
--- OUTSIDE RECORDS SUMMARY | 2024-09-07 15:19 | XMS_ITS | Encounter Summary ---
Author Organization [facility] Address [address] [place] [address]. [place] [address] [place] [address] Care Team Providers Care Block Engraver Name Role Phone Tracy Olivares MD Primary Care Provider [phone] Nathan Baig MD Unavailable [phone] Reason for Visit * Reason Comments Lumbar Pain * Physical Medicine (Routine) - Closed Specialty Diagnoses / Procedures Referred By Heidi iverson Referred To Contact PHYSICAL THERAPY / [facility] Physical Therapy Diagnoses Chronic bilateral low back pain with [place] [address] [place] [address] Phone: tel: fax: [facility] Physical Therapy [address] [address] Phone: tel: fax: Referral ID Status Reason Start Date Expiration Date V isits Requested Visits Authorized [id number] Closed Physical Therapy 03/02/2022 04/01/2023 10 10 Encounter Details Date Type Department Care Team (Late st Contact Info) Description 03/24/2022 2:30 PM CDT Office Visit [facility] Physical Therapy [address] [place] [address] Darlene Rodgers PT Lumbar Pain Social [...] OBJECTIVE Treatment provided today: Therapeutic Exercise - 18600 Number of Minutes - 30794: 38 Exercise: LTR x 10 B Exercise: hamstring stretches in supine B x 3 with 20 sec hold each Exercise: hip flexor stretches in supine B x 3 with 20 sec hold B Exercise: discussion of pool exercises Other (Comments): See education below Education Was Education Provided: Yes Topic: effect of weight loss on back and knee pain, getting referral to motors assembler, pool ex Recipient: Patient Method: Verbal Response: Verbalized understanding ASSESSMENT Assessment Note: Pt had no back pain today, but her knees were sore from riding recumbent bike. 20 minutes were spent on discussing benefits of performing exercises in pool and answering pt's questions on getting referred to motors assembler and how weight loss may decrease joint [...] st Contact Info) Description 10/03/2024 11:00 AM ARTIST AGENT Office Visit [facility] Medical Group Pulmonology Specialty Clinic - [address] [address] Nathan Baig MD [address] [place] [address] 11/14/2024 10:20 AM ARTIST AGENT Office Visit [facility] Multispecialty Care - [place] [address] [address] [place] [address] rTacy Olivares MD [facility]8 [address] [address] documented as of this encounter Visit Diagnoses [...] documented as of this encounter Care Teams Block Engraver Relationship Specialty Start Date End Date Tracy Olivares MD [address] [place] [address] PCP - General INTERNAL MEDICINE 01/02/21 Nathan Baig MD [address] [address] Consulting Physician Internal Medicine Pulmonary Disease 09/16/21 documented as of this encounter
--- OUTSIDE RECORDS SUMMARY | 2024-09-07 15:19 | XMS_ITS | Encounter Summary ---
Author Organization [facility] Address [address] [place] [address]. [place], [place] [address] [place] [address] Care Team Providers Care Car Deliverer Name Role Phone Tracy Olivares MD Primary Care Provider [phone] Nathan Baig MD Unavailable [phone] Reason for Visit * Reason Onset Date Comments Orders 03/04/2022 Encounter Details Date Type Department Care Team (Late st Contact Info) Description 03/04/2022 Telephone [facility] Medical Group Multispecialty Care - [facility] 3 [facility] [address] [place] [phone] Nathan Baig MD 3 [facility] [address] [place] [address] Orders Social History Tobacco Use Types Packs/Day [...] CDT Order faxed to outpatient registration at [place], Called and informed patient. * Leena Davis - 03/04/2022 9:40 AM CDT Patient is requesting her order for her lung test from Dr. Baig be sent to [facility]. Patient states [place] is closer for her. Call patient after the office has sent the order. Patient callback number [phone] documented in this encounter Plan of Treatment Upcoming Encounters Date Type Department Care Team (Late st Contact Info) Description 10/03/2024 11:00 AM PAPER BAG INSPECTOR Office Visit [facility] Medical Group Pulmonology Specialty Clinic - [address] [address] Nathan Baig MD [address] [place] [address] 11/14/2024 10:20 AM PAPER BAG INSPECTOR Office Visit [facility] Medical Group Multispecialty Care - [place] [address] [address] [place] [address] Tracy Olivares MD [address] [place] [address] 157 [place] [address] documented as of this encounter Visit Diagnoses Not on filedocumented in this encounter Additional Health Concerns Assessment Noted Time PHQ-9 Depression Total Score: 5 01/06/20 10:48 AM CDT documented as of this encounter Care Teams Car Deliverer Relationship Specialty Start Date End Date Tracy Olivares MD [address] [facility] [address] [place] [address] PCP - General INTERNAL MEDICINE 01/02/21 Nathan Baig MD [address] [address] Consulting Physician Internal Medicine Pulmonary Disease 09/16/21 documented as of this encounter
--- OUTSIDE RECORDS SUMMARY | 2024-09-07 15:19 | XMS_ITS | Encounter Summary ---
Author Organization [facility] Address [address] [place] [address]. [place], [place] [address] [place] [address] Care Team Providers Care Micro Lab Analyst Name Role Phone Tracy Olivares MD Primary Care Provider [phone] Nathan Baig MD Unavailable [phone] Encounter Details Date Type Department Care [...] st Contact Info) Description 10/03/2024 11:00 AM GUEST RELATIONS COORDINATOR Office Visit [facility] Medical Group Pulmonology Specialty Clinic - [address] [place], [place] [address] Nathan Baig MD 3 [facility] [address] [place] [address] 11/14/2024 10:20 AM GUEST RELATIONS COORDINATOR Office Visit [facility] Medical Group Multispecialty Care - [place] [address] [address] [place] [address] Tracy Olivares MD [facility]8 [address] [address] documented as of this encounter Visit Diagnoses Not on filedocumented in this encounter Additional Health Concerns Assessment Noted Time PHQ-9 Depression Total Score: 5 01/06/20 10:48 AM CDT documented as of this encounter Care Teams Micro Lab Analyst Relationship Specialty Start Date End Date Tracy Olivares MD [address] [place] [address] PCP - General INTERNAL MEDICINE 01/02/21 Nathan Baig MD 3 [facility] [address] [place] [address] Consulting Physician Internal Medicine Pulmonary Disease 09/16/21 documented as of this encounter
--- OUTSIDE RECORDS SUMMARY | 2024-09-07 15:19 | XMS_ITS | Encounter Summary ---
Author Organization [facility] Address [address] [place] [address]. [place], [place] [address] [place] [address] Care Team Providers Care Icing Coater Name Role Phone Tracy Olivares MD Primary Care Provider [phone] Nathan Baig MD Unavailable [phone] Encounter Details Date Type Department Care [...] st Contact Info) Description 10/03/2024 11:00 AM VALVE MECHANIC Office Visit [facility] Medical [facility] Pulmonology Specialty Clinic - [address] [place] [address] Nathan Baig MD 3 [facility] [address] [place] [address] 11/14/2024 10:20 AM VALVE MECHANIC Office Visit [facility] Medical Group Multispecialty Care - [place] [address] [address] [place] [address] Tracy Olivares MD [facility] [address] documented as of this encounter Visit Diagnoses Not on filedocumented in this encounter Additional Health Concerns Infection Onset Date Last Indicated Resolved Time COVID-19 Rule Out 01/19/2022 01/19/2022 01/19/2022 12:59 PM CDT Assessment Noted Time PHQ-9 Depression Total Score: 5 01/06/20 10:48 AM CDT documented as of this encounter Care Teams Icing Coater Relationship Specialty Start Date End Date Tracy Olivares MD [address] [place] [address] PCP - General INTERNAL MEDICINE 01/02/21 Nathan Baig MD 3 [facility] [address] [place] [address] Consulting Physician Internal Medicine Pulmonary Disease 09/16/21 documented as of this encounter
--- OUTSIDE RECORDS SUMMARY | 2024-09-07 15:19 | XMS_ITS | Encounter Summary ---
Author Organization [facility] Address [address] [place] [address]. [place], [place] [address] [place] [address] Care Team Providers Care Medical Office Scheduler Name Role Phone Tracy Olivares MD Primary Care Provider [phone] Nathan Baig MD Unavailable [phone] Encounter Details Date Type Department Care [...] st Contact Info) Description 10/03/2024 11:00 AM DETECTIVE PRECINCT Office Visit [facility] Medical Group Pulmonology Specialty Clinic - [address] [place], [place] [address] Nathan Baig MD 3 [facility] [address] [place] [address] 11/14/2024 10:20 AM DETECTIVE PRECINCT Office Visit [facility] Medical Group Multispecialty Care - [place] [address] [address] [place] [address] Tracy Olivares MD [facility] [address] [address] documented as of this encounter Visit Diagnoses Not on filedocumented in this encounter Additional Health Concerns Assessment Noted Time PHQ-9 Depression Total Score: 5 01/06/20 10:48 AM CDT documented as of this encounter Care Teams Medical Office Scheduler Relationship Specialty Start Date End Date Tracy Olivares MD [address] [place] [address] PCP - General INTERNAL MEDICINE 01/02/21 Nathan Baig MD 3 [facility] [address] [place] [address] Consulting Physician Internal Medicine Pulmonary Disease 09/16/21 documented as of this encounter
--- OUTSIDE RECORDS SUMMARY | 2024-09-07 15:19 | XMS_ITS | Encounter Summary ---
Author Organization [facility] Address [address] [place] [address]. [place] [id number] [place] [address] Care Team Providers Care Clinical Education Consultant Name Role Phone Tracy Olivares MD Primary Care Provider [phone] Nathan Baig MD Unavailable [phone] Reason for Visit * Reason Comments Lumbar Pain * Physical Medicine (Routine) - Closed Specialty Diagnoses / Procedures Referred By Heidi iverson Referred To Contact PHYSICAL THERAPY / [facility] Physical Therapy Diagnoses Chronic bilateral low back pain with bilateral sciatica Tracy Olivares MD [address] [address] Phone: tel: fax: [facility] Physical Therapy [address] [address] Phone: tel: fax: Referral ID Status Reason Start Date Expiration Date V isits Requested Visits Authorized [id number] Closed Physical Therapy 03/02/2022 04/01/2023 10 10 Encounter Details Date Type Department Care Team (Late st Contact Info) Description 03/19/2022 9:00 AM CDT Office Visit [facility] Physical Therapy [address] [id number] Tracy Olivares MD [address] [address] Vishal Shukri Jonathon, PT Lumbar [...] st Contact Info) Description 10/03/2024 11:00 AM SPECIALTY COOK Office Visit [facility] Medical Group Pulmonology Specialty Clinic - [address] [address] Nathan Baig MD [address] [address] 11/14/2024 10:20 AM SPECIALTY COOK Office Visit [facility] Medical Group Multispecialty Care - [place] [address] [address] [place] [address] Tracy Olivares MD [address] [place] [address] documented as of this encounter Visit Diagnoses Diagnosis Chronic bilateral low back pain with bilateral sciatica- Primary documented in this encounter Additional Health Concerns Assessment Noted Time PHQ-9 Depression Total Score: 5 01/06/20 10:48 AM CDT documented as of this encounter Care Teams Clinical Education Consultant Relationship Specialty Start Date End Date Tracy Olivares MD 1188 [facility] [address] [place] [address] PCP - General INTERNAL MEDICINE 01/02/21 Nathan Baig MD [address] [address] Consulting Physician Internal Medicine Pulmonary Disease 09/16/21 documented as of this encounter
--- OUTSIDE RECORDS SUMMARY | 2024-09-07 15:19 | XMS_ITS | Encounter Summary ---
Author Organization [facility] Address [address] [place] [address]. [place], [place] [address] [place] [address] Care Team Providers Care Scratch Polisher Name Role Phone Tracy Olivares MD Primary Care Provider [phone] Nathan Baig MD Unavailable [phone] Encounter Details Date Type Department Care Team (Latest Contact Info) Description 01/19/2022 - 01/19/2022 11:59 PM CDT Hospital Encounter [facility] [address] [place] [address] Tracy Olivares MD 1188 [facility] 157 [place] [address] Discharge Disposition: Home or Self [...] mouth daily. ONETOUCH VERIO test strip 01/18/2021 diphenhydrAMINE-zin c (BENADRYL EXTRA STRENGTH) 2-0.1 % Cream creamIndications:Pr uritus Use twice daily on skin to help with itching. 28 g 1 07/09/2021 4 meclizine 12.5 MG tabletIndications:V ertigo Take 1 [...] by mouth daily. 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 90 tablet 3 01/05/2022 2 methylPREDNISolone, KAREN, 4 MG tabletIndications:U pper respiratory [...] of 50.0 to 59.9 in adult ([facility]/HCC [facility]) Take 1 tablet (37.5 mg total) by [...] Contact Info) Description 10/03/2024 11:00 AM CREDIT COLLECTIONS SPECIALIST Office Visit [facility] Medical Group Pulmonology Specialty Clinic - [address] [place] [address] Nathan Baig MD [address] [place] [address] 11/14/2024 10:20 AM CREDIT COLLECTIONS SPECIALIST Office Visit [facility] Medical Group Multispecialty Care - [place] [address] [address] [place] [address] Tracy Olivares MD [address] [address] documented as of this encounter Visit Diagnoses Not on filedocumented in this encounter Additional Health Concerns Infection Onset Date Last Indicated Resolved Time COVID-19 Rule Out 01/19/2022 01/19/2022 01/19/2022 12:59 PM CDT Assessment Noted Time PHQ-9 Depression Total Score: 5 01/06/20 10:48 AM CDT documented as of this encounter Care Teams Scratch Polisher Relationship Specialty Start Date End Date Tarcy Olivares MD [address] [place] [address] PCP - General INTERNAL MEDICINE 01/02/21 Nathan Baig MD [address] [address] Consulting Physician Internal Medicine Pulmonary Disease 09/16/21 documented as of this encounter
--- OUTSIDE RECORDS SUMMARY | 2024-09-07 15:19 | XMS_ITS | Encounter Summary ---
Author Organization [facility] Address [address] [place] [address]. [place], [place] [address] [place] [address] Care Team Providers Care Wedding Planning Internship Name Role Phone Tracy Olivares MD Primary Care Provider [phone] Bonnie Lema MD Unavailable [phone] Reason for Visit * Reason Comments Obstructive Sleep Apnea CPAP, wanting to try a different mask. * Consultation/Treatment (Routine) - Closed Specialty Diagnoses / Procedures Referred By Contac t Referred To Contact Internal Medicine Pulmonary Disease / SLEEP & RESPIRATORY CARE Diagnoses FOLLOW UP Tracy Olivares MD [address] [place] [address] Phone: tel: fax: Bonnie Lema MD [address] [address] Phone: tel: fax: Referral ID Status Reason Start Date Expiration Date V isits Requested Visits Authorized [id number] Closed Specialty Services 04/23/2022 04/23/2024 100 100 Encounter Details Date Type Department Care Team (Late st Contact Info) Description 04/23/2022 11:00 AM CDT Office Visit [facility] Medical [facility] Pulmonology Specialty Clinic - [address] [address] Bonnie Lema MD [address] [address] Obstructive Sleep Apnea (CPAP, wanting [...] - 04/23/2022 11:00 AM CDT She is [facility] PULMONARY MEDICINE History Chief Complaint Patient [...] cats, and cockroach. I recommend starting an rflr-gcz-equpxii nondrowsy allergy medication such as Claritin. If you do so please be sure to use plain Claritin and not Claritin-D. Bonnie Lema MD documented in this encounter Plan of Treatment Upcoming Encounters Date Type Department Care Team (Late st Contact Info) Description 10/03/2024 11:00 AM CHANGE ANALYST Office Visit [facility] Medical [facility] Pulmonology Specialty Clinic - [place] [address] [address] [place] [address] Bonnie Lema MD [address] [place] [address] [place] [address] 11/14/2024 10:20 AM CHANGE ANALYST Office Visit [facility] Medical Group Multispecialty Care - [address] [place] [address] Tracy Olivares MD [address] [facility] [address] [place] [address] documented as of this encounter Procedures Procedure [...] 0 [facility] ALLERGEN COCKROACH TURKISH 0.39(H) kU/L [facility] RAST SCORING [...] GUIDE 0 [facility] ALLERGEN CYMRO THISTLE <0.10 kU/L [facility] RAST SCORING GUIDE 0 [facility] ALLERGEN HUBBARD ELDER <0.10 kU/L [facility] RAST SCORING GUIDE 0 [facility] ALLERGEN MOUSE <0.10 kU/L [facility] RAST SCORING GUIDE 0 [facility] IGE 136(H) <MY=880 kU/L [facility] INTERPRETATION [facility] [...] analytical performance characteristics have been determined by [facility]. It has not been cleared or approved by the U.S. Food and Drug Administration. This assay has been validated pursuant to the CLIA regulations and is used for clinical purposes. 05/20/2022 10:4 7 AM CDT 05/20/2022 10:49 AM CDT Narrative [facility] - 05/25/2022 4:47 PM CDT VARIFIED ALL INFO FASTING:NO FASTING: NO us Bonnie Lema MD LABORATORY Final Result [facility] [address] [place] [address] documented in this encounter Visit Diagnoses Diagnosis FAISAL on CPAP- Primary Obstructive sleep apnea (adult) (pediatric) Class 3 severe obesity due to excess calories without serious comorbidity with body mass index (BMI) of 45.0 to 49.9 in adult ([facility]) Nicotine dependence, cigarettes, in remission Seasonal allergies Allergic rhinitis, cause unspecified documented in this encounter Additional Health Concerns Assessment Noted Time PHQ-9 Depression Total Score: 5 01/06/20 10:48 AM CDT documented as of this encounter Care Teams Wedding Planning Internship Relationship Specialty Start Date End Date Tracy Olivares MD [address] [facility] [address] [place] [address] PCP - General INTERNAL MEDICINE 01/02/21 Bonnie Lema MD [address] [address] Consulting Physician Internal Medicine Pulmonary Disease 09/16/21 documented as of this encounter
--- OUTSIDE RECORDS SUMMARY | 2024-09-07 15:19 | XMS_ITS | Encounter Summary ---
Author Organization [facility] Address [address] [place] [address]. [place], [place] [address] [place] [address] Care Team Providers Care Reservations And Ticketing Agent Name Role Phone Tracy Olivares MD Primary Care Provider [phone] Nathan Baig MD Unavailable [phone] Reason for Visit * Reason Onset Date Comments Results 02/10/2022 Encounter Details Date Type Department Care Team (Late st Contact Info) Description 02/10/2022 Telephone [facility] Medical Group Multispecialty Care - [place] [address] [place] [address] [address] [place] [address] [place] [address] [place] [address] 157 [place] [address] Results Social History Tobacco Use [...] st Contact Info) Description 10/03/2024 11:00 AM GLOVE FINISHER Office Visit [facility] Medical Group Pulmonology Specialty Clinic - [address] [address] Nathan Baig MD 3 [facility] [address] [place] [address] 11/14/2024 10:20 AM GLOVE FINISHER Office Visit [facility] Medical [facility] Multispecialty Care - [place] [address] [address] [place] [address] Tracy Olivares MD [address] [address] documented as of this encounter Visit Diagnoses Not on filedocumented in this encounter Additional Health Concerns Infection Onset Date Last Indicated Resolved Time COVID-19 Confirmed 01/19/2022 01/19/2022 12:32 AM CDT Assessment Noted Time PHQ-9 Depression Total Score: 5 01/06/20 22 10:48 AM CDT documented as of this encounter Care Teams Reservations And Ticketing Agent Relationship Specialty [place] [address] [place] [address] 157 [place] [address] PCP - General INTERNAL MEDICINE 01/02/21 Nathan Baig MD [address] [place] [address] Consulting Physician Internal Medicine Pulmonary Disease 09/16/21 documented as of this encounter
--- OUTSIDE RECORDS SUMMARY | 2024-09-07 15:19 | XMS_ITS | Encounter Summary ---
Author Organization [facility] Address [address] [place] [address]. [place], [place] [address] [place] [address] Care Team Providers Care Monument Stonecutter Name Role Phone Tracy Olivares MD Primary Care Provider [phone] Nathan Baig MD Unavailable [phone] Reason for Referral * Consultation (Routine) - Closed Specialty Diagnoses / Procedures Referred By Heidi iverson Referred To Contact PODIATRY Diagnoses IGTN (ingrowing toe nail) Tracy Olivares MD [address] [address] Phone: tel: fax: [facility] Medical [facility] [address] [address] Phone: tel: fax: Referral ID Status Reason Start Date Expiration Date V isits Requested Visits Authorized [id number] Closed Specialty Services 03/02/2022 04/02/2023 99 99 * Physical Medicine (Routine) - Closed Specialty Diagnoses / Procedures Referred By Heidi iverson Referred To Contact PHYSICAL THERAPY / [facility] Physical Therapy Diagnoses Chronic bilateral low back pain with bilateral sciatica Tracy Olivares MD [address] [address] Phone: tel: fax: [facility] Physical Therapy [address] [facility] [address] [place] [address] Phone: tel: fax: Referral ID Status Reason Start Date Expiration Date V isits Requested Visits Authorized [id number] Closed Physical Therapy 03/02/2022 04/01/2023 10 10 Reason for Visit * Reason Comments Back Pain Weight Problem SMA Prediabetes Follow Up Toenail Encounter Details Date Type Department Care Team (Latest Contact Info) Description 03/02/2022 10:00 AM CDT Office Visit [facility] Medical Group Multispecialty Care - [place] [address] [place] [address] [address] [place] [address] Tracy Olivares MD 1188 [facility] 157 [place], [place] [id number] Back Pain; Weight Problem; SMA Prediabetes Follow [...] through Care Everywhere. * Weight Loss Tips (Kazakh) documented in this encounter Progress Notes * Tracy Olivares MD - 03/02/2022 10:00 AM CDTSummary: Follow-up note Images from the original note were not included. Internal Medicine Outpatient Progress Note CC: Back Pain, Weight Problem, SMA Prediabetes Follow Up, and Toenail HPI: Keegan Amaya is a 66-year-old -[place] female who presents for follow- up for [...] (BMI) of 50.0 to 59.9 in adult ([facility]) E66.01 278.01 SEVERE OBESITY phentermine 37.5 [...] in adult ([facility]) -This is her second refill for phentermine - -Pt has elevated weight with BMI Body mass index is 49.66 kg/m??., and will need to work hard on reducing carbohydrates and total calories. -You may use the free smart phone apps such as Vantos to help track calories and try to [...] was at least in part performed using Social IQ (Social Influence Quotient)on speak and there may be some inherent flaws in this delivery truck driver heavy due to the nature of this program. Tracy Olivares MD Internal Medicine [facility], [facility]. documented in this encounter Plan of Treatment Upcoming Encounters Date Type Department Care Team (Late st Contact Info) Description 10/03/2024 11:00 AM WHITEWASHER Office Visit [facility] Medical Group Pulmonology Specialty Clinic - [address] [address] Nathan Baig MD [address] [place] [address] 11/14/2024 10:20 AM WHITEWASHER Office Visit [facility] Multispecialty Care - [place] [address] [address] [place] [address] Tracy Olivares MD [address] [address] Scheduled Referrals Name Type Priority Associated Diagnoses [...] documented as of this encounter Care Teams Monument Stonecutter Relationship Specialty Start Date End Date Tracy Olivares MD 1188 [facility] 157 [place] [address] PCP - General INTERNAL MEDICINE 01/02/21 Nathan Baig MD [address] [address] Consulting Physician Internal Medicine Pulmonary Disease 09/16/21 documented as of this encounter
--- OUTSIDE RECORDS SUMMARY | 2024-09-07 15:19 | XMS_ITS | Encounter Summary ---
Author Organization [facility] Address [address] [place] [address]. [place], [place] [address] [place] [address] Care Team Providers Care Leasing Property Manager Name Role Phone Tracy Olivares MD Primary Care Provider [phone] Nathan Baig MD Unavailable [phone] Reason for Visit * Reason Onset Date Comments Results 03/31/2022 Encounter Details Date Type Department Care Team (Late st Contact Info) Description 03/31/2022 Telephone [facility] Medical Group Multispecialty Care - [facility] 3 [facility] [address] [place] [address] Nathan Baig MD 3 [facility] [address] [place], [place] [id number] Results Social History Tobacco Use Types Packs/Day [...] 2:47 PM CDT Called medical records at [facility] and they are going to fax the graphics * Nathan Baig MD - 03/31/2022 2:39 PM CDT I received a pulmonary function test performed 03/17/2022 at [facility], the report indicates a normal study. Please try to obtain the flow-volume loops prior to her follow-up with me next month. Nathan Baig MD documented in this encounter Plan of Treatment Upcoming Encounters Date Type Department Care Team (Late st Contact Info) Description 10/03/2024 11:00 AM DX BOARD OPERATOR Office Visit [facility] Medical Group Pulmonology Specialty Clinic - [address] [address] Nathan Baig MD [address] [place] [address] 11/14/2024 10:20 AM DX BOARD OPERATOR Office Visit [facility] Medical Group Multispecialty Care - [place] [address] [address] [place] [address] Tracy Olivares MD [address] [place] [address] 157 [place] [address] documented as of this encounter Visit Diagnoses Not on filedocumented in this encounter Additional Health Concerns Assessment Noted Time PHQ-9 Depression Total Score: 5 01/06/20 10:48 AM CDT documented as of this encounter Care Teams Leasing Property Manager Relationship Specialty Start Date End Date Tracy Olivares MD 1188 [facility] [address] [place] [id number] PCP - General INTERNAL MEDICINE 01/02/21 Nathan Baig MD [address] [address] Consulting Physician Internal Medicine Pulmonary Disease 09/16/21 documented as of this encounter
--- OUTSIDE RECORDS SUMMARY | 2024-09-07 15:19 | XMS_ITS | Encounter Summary ---
Author Organization [facility] Address [address] [place] [address]. [place], [place] [address] [place] [address] Care Team Providers Care Basket Turner Name Role Phone Tracy Olivares MD Primary Care Provider [phone] Nathan Baig MD Unavailable [phone] Marisel Mancini RN Unavailable [phone] Encounter Details Date Type Department Care Team (Late st Contact Info) Description 03/29/2022 [employer] Message Enc [facility] Medical Group Multispecialty Care - [address] [place] [address] Rare Pink, [facility] Provider test results Social History Tobacco Use [...] st Contact Info) Description 10/03/2024 11:00 AM ANDROID PROGRAMMER Office Visit [facility] Medical [facility] Pulmonology Specialty Clinic - [address] [address] Nathan Baig MD 3 [facility] [address] [place] [address] 11/14/2024 10:20 AM ANDROID PROGRAMMER Office Visit [facility] Multispecialty Care - [place] [address] [address] [place] [address] Tracy Olivares MD [address] [place] [address] documented as of this encounter Visit Diagnoses Not on filedocumented in this encounter Additional Health Concerns Infection Onset Date Last Indicated Resolved Time COVID-19 Rule Out 05/20/2022 05/20/2022 05/20/2022 10:50 AM CDT COVID-19 Rule Out 05/20/2022 05/20/2022 05/21/2022 1:20 AM CDT Assessment Noted Time PHQ-9 Depression Total Score: 5 01/06/20 10:48 AM CDT documented as of this encounter Care Teams Basket Turner Relationship Specialty Start Date End Date Tracy Olivares MD [address] [place] [address] PCP - General INTERNAL MEDICINE 01/02/21 Nathan Baig MD 3 [facility] [address] [place] [address] Consulting Physician Internal Medicine Pulmonary Disease 09/16/21 Marisel Mancini RN [address] [place] [address] Microbiology Director (Ambulatory) REGISTERED NURSE 06/28/24 08/07/24 documented as of this encounter
--- OUTSIDE RECORDS SUMMARY | 2024-09-07 15:19 | XMS_ITS | Encounter Summary ---
Author Organization [facility] Address [address] [place] [address]. [place] [id number] [place] [address] Care Team Providers Care Extension Clerk Name Role Phone Tracy Olivares MD Primary Care Provider [phone] Nathan Baig MD Unavailable [phone] Reason for Visit * Reason Comments Acute Note patient is having ea r aches and fever, cough,sneezing,nasal drainage. Encounter Details Date Type Department Care Team (Latest Contact Info) Description 01/19/2022 11:00 AM CDT Office Visit [facility] Medical Group Multispecialty Care - [place] [address] [address] [place] [address] Tracy Olivares MD [address] [place] [address] [address] [place], [place] [id number] Acute Note (patient is having ear aches [...] around others. Respirator masks like N95 and [id number] filter out even very tiny air particles. [...] https://www.cdc.gov/coronavirus/2019-ncov/about/index.html Centers for Disease Control and Prevention https://www.cdc.gov/coronavirus/2019-ncov/hcp/qtrlpftqsqo-jg-jqcx-patients.html World Health Organization https://www.who.int/news-room/q-a-detail/b-z-bzkejxhgvexec Last Reviewed Date 2021-10-16 Consumer Information Use [...] or approved for treating a specific patient. [employer] and its affiliates disclaim any warranty or liability relating to this information or the use thereof. The use of this information is governed by the Terms of Use, available at https://www.Compute.com/en/know/dvggzqxd-vuyhdvcygtaib-clgmb Copyright Copyright ?? 2021 [employer]. and its affiliates and/or licensors. All rights reserved. documented in this encounter Progress Notes * Tracy Olivares MD - 01/19/2022 11:00 AM CDTSummary: Acute visit notes Images from the original note were not included. Internal Medicine Outpatient Progress Note CC: Acute Note (patient is having ear aches and fever, cough,sneezing,nasal drainage.) HPI: Keegan Amaya is a 66-year-old -Beninese female who presents for an acute visit [...] IDPH instruction. Recommended Tylenol(acetaminophen) as main fever footwear sales coordinator and comfort per WHO recommendations. Discussed symptom [...] may be some inherent flaws in this pharmacy intern due to the nature of this program. Tracy Olivares MD Internal Medicine [facility], [facility]. documented in this encounter Plan of Treatment Upcoming Encounters Date Type Department Care Team (Late st Contact Info) Description 10/03/2024 11:00 AM ADULT HEALTH CLINICAL NURSE SPECIALIST Office Visit [facility] Medical [facility] Pulmonology Specialty Clinic - [address] [address] Nathan Baig MD [address] [place] [address] 11/14/2024 10:20 AM ADULT HEALTH CLINICAL NURSE SPECIALIST Office Visit [facility] Medical [facility] Multispecialty Care - [place] [address] [address] [place] [address] Tracy Olivares MD [address] [address] documented as of this encounter Procedures Procedure [...] SPECIAL W/GRP A STREP SUSCEPT. ?Micro Number: ?[id number] ??Test Status: ? Final ??Specimen Source: ?? Not given ??Specimen Quality: ??Adequate ??Result: ?No oropharyngeal pathogens recovered. STRUCTURE OF ANTERIOR PORTION OF NECK / Unknown 01/19/2022 11:19 AM CDT 01/20/2022 12:43 AM CDT Tracy Olivares MD MICROBIOLOGY - GENERAL ORDERABLE S Final Result [facility] [address] [place] [address] * (ABNORMAL) CORONAVIRUS (COVID 19) PCR ([facility]) (01/19/2022 11:19 AM CDT) SPEC DESCRIPTION NASAL 01/20/20 11:19 AM CDT [facility] CORONAVIRUS SARS COV 2 PCR (RESP) POSITIVE(AA ) NEGATIVE 01/20/2022 4:34 AM CDT [facility] Comment: THE SARS-CoV-2 TEST HAS BEEN AUTHORIZED BY THE FDA UNDER AN EUA FOR USE BY AUTHORIZED LABORATORIES. PERFORMED BY NUCLEIC ACID AMPLIFICATION PCR FIRST TEST NO 01/19/2022 11:19 AM CDT [facility] EMPLOYED IN HEALTHCARE NO 01/19/2022 11:19 AM CDT [facility] SYMPTOMATIC DEFINED BY CDC YES 01/19/2022 11:19 AM CDT [facility] DATE OF SYMPTOM ONSET 2022011801/19/2022 11:19 AM CDT [facility] HOSPITALIZATION STATUS NO 01/19/2022 11:19 AM CDT [facility] PATIENT IN ICU NO 01/19/2022 11:19 AM CDT [facility] RESIDENT OF [facility] NO 01/19/2022 11:19 AM CDT [facility] NASOPHARYNGEAL SWAB / Unknown 01/19/2022 11:19 AM CDT us Tracy Olivares MD MICROBIOLOGY - GENERAL ORDERABLE S Final Result [facility] [address] [place] [address], * RAPID STREP A (01/19/2022) RAPID STREP TEST NEGATIVE NEGATIVE [address], [place] Internal Control: VALID VALID MG[address], [place] STRUCTURE OF ANTERIOR PORTION OF NECK / Unknown 01/19/2022 us Tracy Olivares MD MICROBIOLOGY - GENERAL ORDERABLE S Final Result [facility] [address] [place] [id number], * CORONAVIRUS (COVID-19) INFLUENZA A & B ANTIGEN IA PANEL (01/19/2022) CORONAVIRUS ANTIGEN IA POSITIVE NEGATIVE MG[address], [place] INFLUENZA A NEGATIVE NEGATIVE [address], [facility] INFLUENZA B NEGATIVE NEGATIVE MG-[address], [place] Internal Control: VALID VALID MG-[address], [place] NASAL STRUCTURE / Unknown 01/19/2022 us Tracy Olivares MD MICROBIOLOGY - GENERAL ORDERABLE S Final Result [address], [place] [address] [place] [address] [address] [place] [address], documented in this encounter Visit Diagnoses Diagnosis [...] documented as of this encounter Care Teams Extension Clerk Relationship Specialty Start Date End Date Tracy Olivares MD 1188 [facility] [address] [place] [address] PCP - General INTERNAL MEDICINE 01/02/21 Nathan Baig MD [address] [address] Consulting Physician Internal Medicine Pulmonary Disease 09/16/21 documented as of this encounter
--- OUTSIDE RECORDS SUMMARY | 2024-09-07 15:19 | XMS_ITS | Encounter Summary ---
Author Organization [facility] Address [address] [place] [address]. [place], [place] [address] [place] [address] Care Team Providers Care Ammunition Storekeeper Name Role Phone Tracy Olivares MD Primary Care Provider Nathan Baig MD Unavailable [phone] Reason for Visit * Reason Comments Sleep Study (SCAN) Encounter Details Date Type Department Care Team ([facility] Contact Info) Description 04/22/2022 Scan HEALTH INFO [...] Upcoming Encounters Date Type Department Care Team ([facility] Contact Info) Description 10/03/2024 11:00 AM X RAY SERVICE ENGINEER Office Visit [facility] Medical Group Pulmonology Specialty Clinic - [address] [address] Nathan Baig MD [address] [address] 11/14/2024 10:20 AM X RAY SERVICE ENGINEER Office Visit [facility] Medical Group Multispecialty Care - [place] [address] [address] [place] [address] Tracy Olivares MD [address] [place] [address] documented as of this encounter Procedures Procedure [...] documented as of this encounter Care Teams Ammunition Storekeeper Relationship Specialty Start Date End Date Tracy Olivares MD [address] [place] [address] PCP - General INTERNAL MEDICINE 01/02/21 Nathan Baig MD [address] [address] Consulting Physician Internal Medicine Pulmonary Disease 09/16/21 documented as of this encounter
--- OUTSIDE RECORDS SUMMARY | 2024-09-07 15:19 | XMS_ITS | Encounter Summary ---
Author Organization [facility] Address [address] [place] [address]. [place], [place] [address] [place] [address] Care Team Providers Care Spot Checker Name Role Phone Tracy Olivares MD Primary Care Provider [phone] Nathan Baig MD Unavailable [phone] Encounter Details Date Type Department Care [...] Contact Info) Description 10/03/2024 11:00 AM RETAIL SERVICES PROFESSIONAL Office Visit [facility] Medical Group Pulmonology Specialty Clinic - [address] [place], [place] [address] Nathan Baig MD 3 [facility] [address] [place] [address] 11/14/2024 10:20 AM RETAIL SERVICES PROFESSIONAL Office Visit [facility] Medical Group Multispecialty Care - [place] [address] [address] [place] [address] Tracy Olivares MD [facility] [address] [address] documented as of this encounter Visit Diagnoses Not on filedocumented in this encounter Additional Health Concerns Assessment Noted Time PHQ-9 Depression Total Score: 5 01/06/20 10:48 AM CDT documented as of this encounter Care Teams Spot Checker Relationship Specialty Start Date End Date Tracy Olivares MD [address] [place] [address] PCP - General INTERNAL MEDICINE 01/02/21 Nathan Baig MD 3 [facility] [address] [place] [address] Consulting Physician Internal Medicine Pulmonary Disease 09/16/21 documented as of this encounter
--- OUTSIDE RECORDS SUMMARY | 2024-09-07 15:19 | XMS_ITS | Encounter Summary ---
Author Organization [facility] - [facility] Address [address] [place] [address]. [place], [place] [address] [place] [address] Care Team Providers Care Laser Engineer Name Role Phone Tracy Olivares MD Primary Care Provider [phone] Nathan Baig MD Unavailable [phone] Reason for Visit * Reason Onset Date Comments Results 03/27/2022 Encounter Details Date Type Department Care Team (Late st Contact Info) Description 03/27/2022 Telephone [facility] Medical Group Multispecialty Care - [place] [address] [address] [place] [address] [place] [address] [place] [address] 157 [place] [address] Results Social History Tobacco Use [...] Thank you Tracy Olivares MD Internal Medicine [facility]. documented in this encounter Plan of Treatment Upcoming Encounters Date Type Department Care Team (Late st Contact Info) Description 10/03/2024 11:00 AM PILE DRIVING NOZZLEMAN Office Visit [facility] Pulmonology Specialty Clinic - [address] [address] Nathan Baig MD [address] [place] [address] 11/14/2024 10:20 AM PILE DRIVING NOZZLEMAN Office Visit [facility] Multispecialty Care - [place] [address] [address] [place] [address] Tracy Olivares MD [address] [place] [address] documented as of this encounter Visit Diagnoses Not on filedocumented in this encounter Additional Health Concerns Assessment Noted Time PHQ-9 Depression Total Score: 5 01/06/20 10:48 AM CDT documented as of this encounter Care Teams Laser Engineer Relationship Specialty Start Date End Date Tracy Olivares MD [address] [place] [address] PCP - General INTERNAL MEDICINE 01/02/21 Nathan Baig MD [address] [address] Consulting Physician Internal Medicine Pulmonary Disease 09/16/21 documented as of this encounter
--- OUTSIDE RECORDS SUMMARY | 2024-09-07 15:19 | XMS_ITS | Encounter Summary ---
Author Organization [facility] Address [address] [place] [address]. [place], [place] [address] [place] [address] Care Team Providers Care Newscast Director Name Role Phone Tracy Olivares MD Primary Care Provider Nathan Baig MD Unavailable [phone] Encounter Details Date Type Department Care [...] st Contact Info) Description 10/03/2024 11:00 AM MANUFACTURING SALES REPRESENTATIVE Office Visit [facility] Medical Group Pulmonology Specialty Clinic - [address] [place], [place] [address] Nathan Baig MD [address] [facility] [address] [place] [address] 11/14/2024 10:20 AM MANUFACTURING SALES REPRESENTATIVE Office Visit [facility] Medical Group Multispecialty Care - [place] [address] [address] [place] [address] Tracy Olivares MD [facility] [address] [address] documented as of this encounter Visit Diagnoses Not on filedocumented in this encounter Additional Health Concerns Assessment Noted Time PHQ-9 Depression Total Score: 5 01/06/20 10:48 AM CDT documented as of this encounter Care Teams Newscast Director Relationship Specialty Start Date End Date Tracy Olivares MD [address] [place] [address] PCP - General INTERNAL MEDICINE 01/02/21 Nathan Baig MD 3 [facility] [address] [place] [address] Consulting Physician Internal Medicine Pulmonary Disease 09/16/21 documented as of this encounter
--- OUTSIDE RECORDS SUMMARY | 2024-09-07 15:19 | XMS_ITS | Encounter Summary ---
Author Organization [facility] - [facility] Address [address] [place] [address]. [place], [place] [address] [place] [address] Care Team Providers Care Export Clerk Name Role Phone Tracy Olivares MD Primary Care Provider [phone] Nathan Baig MD Unavailable [phone] Reason for Visit * Reason Onset Date Comments Follow Up Call 04/03/2022 Encounter Details Date Type Department Care Team (Late st Contact Info) Description 04/03/2022 Telephone [facility] Medical Group Multispecialty Care - [place] [address] [address] [place] [address] [place] [address] [place] [address] 157 [place] [address] Follow Up Call Social History [...] Olivares MD - 04/03/2022 10:11 AM CDT inbound call center representative notes. Patient calls concerned about possibly reacting [...] verbalized understanding. Tracy Olivares MD Internal Medicine [facility], [facility]. documented in this encounter Plan of Treatment Upcoming Encounters Date Type Department Care Team (Late st Contact Info) Description 10/03/2024 11:00 AM GENERAL STORE MANAGER Office Visit [facility] Medical [facility] Pulmonology Specialty Clinic - [address] [address] Nathan Baig MD [address] [place] [address] 11/14/2024 10:20 AM GENERAL STORE MANAGER Office Visit [facility] Multispecialty Care - [place] [address] [address] [place] [address] Tracy Olivares MD [address] [place] [address] [address] [place] [address] documented as of this encounter Visit Diagnoses Not on filedocumented in this encounter Additional Health Concerns Assessment Noted Time PHQ-9 Depression Total Score: 5 01/06/20 10:48 AM CDT documented as of this encounter Care Teams Export Clerk Relationship Specialty Start Date End Date Tracy Olivares MD 118[address] [facility] [address] [place] [address] PCP - General INTERNAL MEDICINE 01/02/21 Nathan Baig MD [address] [address] Consulting Physician Internal Medicine Pulmonary Disease 09/16/21 documented as of this encounter
--- OUTSIDE RECORDS SUMMARY | 2024-09-07 15:19 | XMS_ITS | Encounter Summary ---
Author Organization [facility] Address [address] [place] [address]. [place], [place] [address] [place] [address] Care Team Providers Care Environmental Resource Specialist Name Role Phone Tracy Olivares MD Primary Care Provider [phone] Nathan Baig MD Unavailable [phone] Reason for Visit * Reason Comments Mammogram (SCAN) Encounter Details Date Type Department Care Team ([facility] Contact Info) Description 01/14/2022 Scan HEALTH INFO [...] Upcoming Encounters Date Type Department Care Team ([facility] Contact Info) Description 10/03/2024 11:00 AM CRANE MANAGER Office Visit [facility] Medical Group Pulmonology Specialty Clinic - [place] [address] [facility] [address] [place] [address] Nathan Baig MD [address] [address] 11/14/2024 10:20 AM CRANE MANAGER Office Visit [facility] Medical Group Multispecialty Care - [place] [facility] [facility] [address] [place] [address] Tracy Olivares MD 1188 [facility] 157 [place] [address] documented as of this encounter Procedures Procedure [...] as of this encounter Care Teams Environmental Resource Specialist Relationship Specialty Start Date End Date Tracy Olivares MD 1188 [facility] [address] [place] [address] PCP - General INTERNAL MEDICINE 01/02/21 Nathan Baig MD [address] [address] Consulting Physician Internal Medicine Pulmonary Disease 09/16/21 documented as of this encounter
--- OUTSIDE RECORDS SUMMARY | 2024-09-07 15:19 | XMS_ITS | Encounter Summary ---
Author Organization [facility] Address [address] [place] [address]. [place], [place] [address] [place] [address] Care Team Providers Care Sales And Marketing Professional Name Role Phone Tracy Olivares MD Primary Care Provider [phone] Nathan Baig MD Unavailable [phone] Reason for Visit * Reason Comments Weight Problem SMA Prediabetes Follow Up Encounter Details Date Type Department Care Team (Latest Contact Info) Description 04/02/2022 11:40 AM CDT Office Visit [facility] Medical Group Multispecialty Care - [place] [address] [address] [place] [address] Tracy Olivares MD [address] [place] [address] 157 [place], [place] [address] Weight Problem; SMA Prediabetes Follow Up Social [...] CDT Follow up in 4 weeks. Please filler picker your medication for the cholesterol- ATORVASTATIN and JANUVIA for your prediabetes. Please see me back in 4 weeks. * Attachments The following attachments cannot be sent through Care Everywhere. * Weight Loss Tips (French) documented in this encounter Progress Notes * Tracy Olivares MD - 04/02/2022 11:40 AM CDTSummary: Follow-up notes Images from the original note were not included. Internal Medicine Outpatient Progress Note CC: Weight Problem and SMA Prediabetes Follow Up HPI: Keegan Amaya is a 66-year-old -Portuguese female who presents for follow- up for [...] Streptococcus pneumoniae (pneumococcus) Z23 V03.82 REQUIRES VACCINATION [20699] Prevnar 13 (Pneumococcal) 1. Prediabetes - patient [...] 59.9 in adult ([facility]) - -Pt has elevated weight with BMI Body mass index is 49.17 kg/m??., and will need to work hard on reducing carbohydrates and total calories. -You may use the free smart phone apps such as Empiribox to help track calories and try to [...] prophylactic vaccination against Streptococcus pneumoniae (pneumococcus) - [34195] Prevnar 13 (Pneumococcal) Counseling given: Yes Comment: [...] was at least in part performed using Cubic[employer] speak and there may be some inherent flaws in this early childhood specialist due to the nature of this program. Tracy Olivares MD Internal Medicine [facility], [facility]. documented in this encounter Plan of Treatment Upcoming Encounters Date Type Department Care Team (Late st Contact Info) Description 10/03/2024 11:00 AM STRAIGHTENING MACHINE FEEDER Office Visit [facility] Medical [facility] Pulmonology Specialty Clinic - [address] [address] Nathan Baig MD [address] [place] [address] 11/14/2024 10:20 AM STRAIGHTENING MACHINE FEEDER Office Visit [facility] Medical [facility] Multispecialty Care - [place] [address] [address] [place] [address] Tracy Olivares MD [facility] [address] [address] documented as of this encounter Visit Diagnoses Diagnosis Class 3 severe obesity due to excess calories without serious comorbidity with body mass index (BMI) of 50.0 to 59.9 in adult ([facility])- Primary Prediabetes Other abnormal glucose Mixed hyperlipidemia Need for prophylactic vaccination against Streptococcus pneumoniae (pneumococcus) Need for prophylactic vaccination against streptococcus pneumoniae (pneumococcus) documented in this encounter Additional Health Concerns Assessment Noted Time PHQ-9 Depression Total Score: 5 01/06/20 10:48 AM CDT documented as of this encounter Care Teams Sales And Marketing Professional Relationship Specialty Start Date End Date Tracy Olivares MD [address] [place] [address] PCP - General INTERNAL MEDICINE 01/02/21 Nathan Baig MD [address] [address] Consulting Physician Internal Medicine Pulmonary Disease 09/16/21 documented as of this encounter
--- OUTSIDE RECORDS SUMMARY | 2024-09-07 15:19 | XMS_ITS | Encounter Summary ---
Author Organization [facility] - [facility] Address [address] [place] [address]. [place], [place] [address] [place] [address] Care Team Providers Care Livestock Trucker Name Role Phone Tracy Rain MD Primary Care Provider [phone] Nathan Baig MD Unavailable [phone] Reason for Visit * Reason Onset Date Comments Results 01/18/2022 Encounter Details Date Type Department Care Team (Late st Contact Info) Description 01/18/2022 Telephone [facility] Medical Group Multispecialty Care - [address] [place] [address] [place] [address] [place] [address] 157 [place] [address] Results Social History Tobacco Use [...] Contact Info) Description 10/03/2024 11:00 AM MEDICAL COLLECTIONS SPECIALIST Office Visit [facility] Medical Group Pulmonology Specialty Clinic - [address] [address] Nathan Baig MD [address] [place] [address] 11/14/2024 10:20 AM MEDICAL COLLECTIONS SPECIALIST Office Visit [facility] Multispecialty Care [place] [address] [address] [place] [address] Tracy Rain MD [address] [place] [address] documented as of this encounter Visit Diagnoses Not on filedocumented in this encounter Additional Health Concerns Infection Onset Date Last Indicated Resolved Time COVID-19 Rule Out 01/19/2022 01/19/2022 01/19/2022 12:59 PM CDT Assessment Noted Time PHQ-9 Depression Total Score: 5 01/06/20 10:48 AM CDT documented as of this encounter Care Teams Livestock Trucker Relationship Specialty Start Date End Date Tracy Rain MD 1188 [facility] [address] [place] [address] PCP - General INTERNAL MEDICINE 01/02/21 Nathan Baig MD [address] [address] Consulting Physician Internal Medicine Pulmonary Disease 09/16/21 documented as of this encounter
--- OUTSIDE RECORDS SUMMARY | 2024-09-07 15:19 | XMS_ITS | Encounter Summary ---
Author Organization [facility] - [facility] Address [address] [place] [address]. [place], [place] [address] [place] [address] Care Team Providers Care Digital Assistant Name Role Phone Tracy Olivares MD Primary Care Provider Nathan Baig MD Unavailable [phone] Reason for Visit * Reason Onset Date Comments Results 01/18/2022 Encounter Details Date Type Department Care Team (Late st Contact Info) Description 01/18/2022 Telephone [facility] Medical Group Multispecialty Care - [address] [place] [address] [place] [address] [place] [address] 157 [place] [address] Results Social History Tobacco Use [...] update patient. Tracy Olivares MD Internal Medicine [facility]. documented in this encounter Plan of Treatment Upcoming Encounters Date Type Department Care Team (Late st Contact Info) Description 10/03/2024 11:00 AM NURSES' ASSOCIATION EXECUTIVE DIRECTOR Office Visit [facility] - [address] [address] Nathan Baig MD [address] [address] 11/14/2024 10:20 AM NURSES' ASSOCIATION EXECUTIVE DIRECTOR Office Visit [facility] Multispecialty Care - [place] [address] [address] [place] [address] [place] [address] [place] [address] documented as of this encounter Visit Diagnoses Not on filedocumented in this encounter Additional Health Concerns Assessment Noted Time PHQ-9 Depression Total Score: 5 01/06/20 22 10:48 AM CDT documented as of this encounter Care Teams Digital Assistant Relationship Specialty Start Date End Date Tracy Olivares MD [address] [place] [address] PCP - General INTERNAL MEDICINE 01/02/21 Nathan Baig MD [address] [address] Consulting Physician Internal Medicine Pulmonary Disease 09/16/21 documented as of this encounter
--- OUTSIDE RECORDS SUMMARY | 2024-09-07 15:19 | XMS_ITS | Encounter Summary ---
Author Organization [facility] - [facility] Address [address] [place] [address]. [place], [place] [address] [place] [address] Care Team Providers Care Building Specialist Name Role Phone Tracy Olivares MD Primary Care Provider [phone] Nathan Baig MD Unavailable [phone] Reason for Visit * Reason Onset Date Comments Reschedule 03/29/2022 Encounter Details Date Type Department Care Team (Late st Contact Info) Description 03/29/2022 Telephone [facility] Medical Group Multispecialty Care - [place] [address] [address] [place] [address] [place] [address] [place] [address] [address] [place] [address] Reschedule Social History Tobacco Use [...] Contact Info) Description 10/03/2024 11:00 AM CLINICAL PHARMACIST Office Visit [facility] Medical [facility] Pulmonology Specialty Clinic - [address] [address] Nathan Baig MD [address] [address] 11/14/2024 10:20 AM CLINICAL PHARMACIST Office Visit [facility] Multispecialty Care - [place] [address] [address] [place] [address] Tracy Olivares MD [address] [place] [address] documented as of this encounter Visit Diagnoses Not on filedocumented in this encounter Additional Health Concerns Assessment Noted Time PHQ-9 Depression Total Score: 5 01/06/20 10:48 AM CDT documented as of this encounter Care Teams Building Specialist Relationship Specialty Start Date End Date Tracy Olivares MD [address] [place] [address] PCP - General INTERNAL MEDICINE 01/02/21 Nathan Baig MD 3 [facility] [address] [place] [address] Consulting Physician Internal Medicine Pulmonary Disease 09/16/21 documented as of this encounter
--- OUTSIDE RECORDS SUMMARY | 2024-09-07 15:20 | XMS_ITS | Encounter Summary ---
Author Organization [facility] Address [address] [place] [address]. [place], [place] [address] [place] [address] Care Team Providers Care Cylinder Machine Operator Pulp Drier Name Role Phone Tracy Olivares MD Primary Care Provider [phone] Nathan Baig MD Unavailable [phone] Encounter Details Date Type Department Care [...] COVID-19? No / Unsure 09/16/2021 9:58 AM MOTOR VEHICLE COMPLIANCE ANALYST documented as of this encounter Plan of Treatment Upcoming Encounters Date Type Department Care Team (Late st Contact Info) Description 10/03/2024 11:00 AM MOTOR VEHICLE COMPLIANCE ANALYST Office Visit [facility] Medical Group Pulmonology Specialty Clinic - [address] [place] [address] Nathan Baig MD 3 [facility] [place] [address] [place] [address] 11/14/2024 10:20 AM MOTOR VEHICLE COMPLIANCE ANALYST Office Visit [facility] Medical Group Multispecialty Care - [place] [address] [address] [place] [address] Tracy Olivares MD [address] [place] [address] documented as of this encounter Visit Diagnoses Not on filedocumented in this encounter Additional Health Concerns Assessment Noted Time PHQ-9 Depression Total Score: 6 09/16/19 10:54 AM MOTOR VEHICLE COMPLIANCE ANALYST documented as of this encounter Care Teams Cylinder Machine Operator Pulp Drier Relationship Specialty Start Date End Date Tracy Olivares MD [address] [place] [address] PCP - General INTERNAL MEDICINE 01/02/21 Nathan Baig MD 3 [facility] [address] [place] [address] Consulting Physician Internal Medicine Pulmonary Disease 09/16/21 documented as of this encounter
--- OUTSIDE RECORDS SUMMARY | 2024-09-07 15:20 | XMS_ITS | Encounter Summary ---
Author Organization [facility] - [facility] Address [address] [place] [address]. [place], [place] [address] [place] [address] Care Team Providers Care Local Company Flatbed Truck Driver Name Role Phone Tracy Olivares MD Primary Care Provider [phone] Nathan Baig MD Unavailable [phone] Reason for Visit * Reason Onset Date Comments Question 10/07/2021 Encounter Details Date Type Department Care Team (Late st Contact Info) Description 10/07/2021 Telephone [facility] Medical Group Multispecialty Care - [place] [address] [place] [address] [address] [place] [address] Tracy Olivares MD [address] [facility] [address] [place] [address] Question Social History Tobacco Use [...] COVID-19? No / Unsure 09/25/2021 8:58 AM HOSPITAL CARRIER documented as of this encounter Progress Notes * Tracy Olivares MD - 10/07/2021 12:45 PM CST Patient called. All questions answered. She follows up tomorrow for her Ozempic medication. ITAL CARRIER * Sadi Saul Byrd - 10/07/2021 10:11 AM CST Patient called and was confused about her appointment on 10/08/21. She was not sure if she needed beatris seen. Please call patient to confirm if she needs to be seen. ITAL CARRIER documented in this encounter Plan of Treatment Upcoming Encounters Date Type Department Care Team (Late st Contact Info) Description 10/03/2024 11:00 AM HOSPITAL CARRIER Office Visit [facility] Medical Group Pulmonology Specialty Clinic - [address] [address] Nathan Baig MD [address] [place] [address] 11/14/2024 10:20 AM HOSPITAL CARRIER Office Visit [facility] Medical Group Multispecialty Care - [place] [address] [address] [place] [address] Tracy Olivares MD [address] [place] [address] documented as of this encounter Visit Diagnoses Not on filedocumented in this encounter Additional Health Concerns Assessment Noted Time PHQ-9 Depression Total Score: 6 09/16/19 10:54 AM HOSPITAL CARRIER documented as of this encounter Care Teams Local Company Flatbed Truck Driver Relationship Specialty Start Date End Date Tracy Olivares MD [address] [place] [address] PCP - General INTERNAL MEDICINE 01/02/21 Nathan Baig MD [address] [phone] Consulting Physician Internal Medicine Pulmonary Disease 09/16/21 documented as of this encounter
--- OUTSIDE RECORDS SUMMARY | 2024-09-07 15:20 | XMS_ITS | Encounter Summary ---
Author Organization [facility] Address [address] [place] [address]. [place] [id number] Care Team Providers Care Premium Service Representative Name Role Phone Tracy Olivares MD Primary Care Provider [phone] Reason for Visit * Reason Onset Date Comments Error 06/04/2021 Encounter Details Date Type Department Care Team (Late st Contact Info) Description 06/04/2021 Telephone [facility] Medical Group Multispecialty Care - [place] [address] [address] [place], [place] [id number] Tracy Olivares MD [address] [place] [address] [address] [place] [address] Error Social History Tobacco Use [...] st Contact Info) Description 10/03/2024 11:00 AM BINGO MANAGER Office Visit [facility] Medical Group Pulmonology Specialty Clinic - [address] [address] Nathan Baig MD [address] [place] [address] 11/14/2024 10:20 AM BINGO MANAGER Office Visit [facility] Multispecialty Care - [place] [address] [address] [place] [address] Tracy Olivares MD [address] [place] [address] documented as of this encounter Visit Diagnoses Not on filedocumented in this encounter Additional Health Concerns Assessment Noted Time PHQ-9 Depression Total Score: 0 05/22/20 9:15 AM CDT documented as of this encounter Care Teams Premium Service Representative Relationship Specialty Start Date End Date Tracy Olivares MD [address] [place] [address] PCP - General INTERNAL MEDICINE 01/02/21 documented as of this encounter
--- OUTSIDE RECORDS SUMMARY | 2024-09-07 15:20 | XMS_ITS | Encounter Summary ---
Author Organization [facility] - [facility] Address [address] [place] [address]. [place], [place] [address] [place] [address] Care Team Providers Care Timekeeper Name Role Phone Tracy Olivares MD Primary Care Provider [phone] Nathan Baig MD Unavailable [phone] Reason for Visit * Reason Onset Date Comments Medication Question 10/23/2021 Encounter Details Date Type Department Care Team (Late st Contact Info) Description 10/23/2021 Telephone [facility] Medical Group Multispecialty Care - [place] [address] [place] [address] [address] [place] [address] [place] [address] [place] [address] 157 [place] [address] Medication Question Social History Tobacco [...] Coronavirus/COVID-19? No / Unsure 10/23/2021 8:36 AM ADMISSIONS ADVISOR documented as of this encounter Progress Notes * Tracy Olivares MD - 10/23/2021 12:12 PM CST Patient called and advised to complete her current doses of sermaglutide as she still has old stockat home. All questions answered. Tracy Olivares MD Internal Medicine [facility], [facility]. SSIONS ADVISOR * Sadi Byrd - 10/23/2021 8:48 AM CST Patient came and and wanted to let provider know that patient wants to go to the higher dose of Ozempic starting 10/29/21. SSIONS ADVISOR documented in this encounter Plan of Treatment Upcoming Encounters Date Type Department Care Team (Late st Contact Info) Description 10/03/2024 11:00 AM ADMISSIONS ADVISOR Office Visit [facility] Pulmonology Specialty Clinic - [address] [address] Nathan Baig MD [address] [place] [address] 11/14/2024 10:20 AM ADMISSIONS ADVISOR Office Visit [facility] Multispecialty Care - [place] [address] [address] [place] [address] Tracy Olivares MD [facility] [address] [address] documented as of this encounter Visit Diagnoses Not on filedocumented in this encounter Additional Health Concerns Assessment Noted Time PHQ-9 Depression Total Score: 6 09/16/19 10:54 AM ADMISSIONS ADVISOR documented as of this encounter Care Teams Timekeeper Relationship Specialty Start Date End Date Tracy Olivares MD [address] [place] [phone] PCP - General INTERNAL MEDICINE 01/02/21 Nathan Baig MD [address] [address] Consulting Physician Internal Medicine Pulmonary Disease 09/16/21 documented as of this encounter
--- OUTSIDE RECORDS SUMMARY | 2024-09-07 15:20 | XMS_ITS | Encounter Summary ---
Author Organization [facility] Address [address] [place] [address]. [place], [place] [address] [place] [address] Care Team Providers Care Truss Maker Name Role Phone Tracy Olivares MD Primary Care Provider [phone] Nathan Baig MD Unavailable Reason for Referral * Consultation/Treatment (Routine) - Closed Specialty Diagnoses / Procedures Referred By Contac t Referred To Contact OPHTHALMOLOGY Diagnoses Prediabetes Tracy Olivares MD [address] [address] Phone: tel: fax: Benigno Grossman MD [address] [address] Phone: tel: fax: Referral ID Status Reason Start Date Expiration Date V isits Requested Visits Authorized [id number] Closed Specialty Services 01/05/2022 02/04/2023 100 100 Reason for Visit * Reason Comments Annual here for a physical and follow up on chronic medical issues Sinus Problem having sinus issues Encounter Details Date Type Department Care Team (Latest Contact Info) Description 01/05/2022 10:00 AM CDT Office Visit [facility] Multispecialty Care - [address] [place] [address] Tracy Olivares MD [facility] [address] [place] [id number] Annual (here for a physical and follow [...] learn more? Centers for Disease Control https://www.cdc.gov/chronicdisease/resources/publications/factsheets/promoting-h miwgv-qvl-vlzsws.htm Centers for Disease Control http://www.cdc.gov/family/checkup/ Centers for Disease Control https://www.cdc.gov/vaccines/schedules/hcp/imz/adult-shell.html U.S. Department of Health and Human Services: My Healthfinder https://Audit Verify.gov/ZecterthRefined Investment Technologiesder/topics/doctor-visits/regular-checkupshttps://[facility]/topics/doctor-visits/regular-checkups Last Reviewed Date 2021-07-16 Consumer Information [...] or approved for treating a specific patient. [employer] and its affiliates disclaim any warranty or liability relating to this information or the use thereof. The use of this information is governed by the Terms of Use, available at https://www.wolterscloudControluwer.com/en/know/ixdhpqqn-mjdoooojiorrt-nkgll Copyright Copyright ?? 2021 [employer] and its affiliates and/or licensors. All rights reserved. Patient Education Patient Education Sinusitis in Adults The Basics Written by the doctors and editors at [facility] What is sinusitis???--??Sinusitis is a condition that [...] your symptoms, you can: ?? Take an pvsu-lxn-idckpuh pain reliever to reduce the pain ?? [...] process is complete. This topic retrieved from [facility] on: Dec 01, 2021. Topic 11436 Version 17.0 Release: 30.1.2 - C30.80 ?2021??[employer] and/or its affiliates.??All rights reserved. figure 1: Sinuses of the face This??drawing shows the sinuses of the face, from the??side and front views. Graphic 608009 Version 1.0 Consumer Information Use and Disclaimer [...] or approved for treating a specific patient. [employer] and its affiliatesdisclaim any warranty or liability relating to this information or the use thereof.The use of this information is governed by the Terms of Use, available at https://www.CasterStats.Thames Card Technology/en/know/jyhzqmja-dzebjyoiqencc-fpdyn ??2021 [employer]. and its affiliates and/or licensors. All rights reserved. Copyright ?2021??[employer]. and/or its affiliates.??All rights reserved. documented in [...] at the moment. Currently patient is on rgfg-mgx-abfkruk antihistamines which helps with symptom controled.. Denies [...] had an EGD done in 2018 at [facility]. She is unsure what the exact results [...] (BMI) of 50.0 to 59.9 in adult ([facility]) - CBC W/DIFF AUTOMATED; Future - COMPREHENSIVE [...] the free smart phone apps such as Yodle to help track calories and try to [...] hyperglycemia, without long-term current use of insulin ([facility]) - Stable; currently prediabetic; needs diabetic eye [...] was at least in part performed using [employer] speak and there may be some inherent flaws in this electrical equipment assembler due to the nature of this program. MD Tracy PASCAL MD Internal Medicine [facility], [facility]. documented in this encounter Plan of Treatment Upcoming Encounters Date Type Department Care Team (Late st Contact Info) Description 10/03/2024 11:00 AM FREIGHT RECEIVER Office Visit [facility] - [place] [address] [place] [address] Nathan Baig MD [address] [address] [place] [address] 11/14/2024 10:20 AM FREIGHT RECEIVER Office Visit [facility] Multispecialty Care - [place] [address] [address] [address] [place] [address] Tracy Olivares MD [address] [facility] [address] [place] [address] Scheduled Referrals Name Type Priority Associated Diagnoses [...] (BMI) of 50.0 to 59.9 in adult ([facility] HHS/HCC) HEMOGLOBIN, GLYCOSYLATED Routine 01/05/2022 10:40 AM CDT Annual physical exam General medical exam Essential hypertension Prediabetes COMPREHENSIVE METABOLIC PANEL Routine 01/05/2022 10:40 AM CDT Annual physical exam General medical exam Essential hypertension Prediabetes Class 3 severe obesity due to excess calories without serious comorbidity with body mass index (BMI) of 50.0 to 59.9 in adult ([facility] HHS/HCC) LIPID PANEL Routine 01/05/2022 10:40 AM CDT Annual physical exam General medical exam Essential hypertension Mixed hyperlipidemia CBC W/DIFF AUTOMATED Routine 01/05/2022 10:40 AM CDT Annual physical exam General medical exam Essential hypertension Prediabetes Class 3 severe obesity due to excess calories without serious comorbidity with body mass index (BMI) of 50.0 to 59.9 in adult ([facility] HHS/HCC) VENIPUNC ARM DRAW Routine 01/05/2022 [...] METABOLITES (U) NEGATIVE <500 ng/mL [facility] AMPHETAMINES PM NEGATIVE <500 ng/mL [facility] BARBITURATES PM (U) NEGATIVE <300 ng/mL [facility] BENZODIAZEPINES PM (U) NEGATIVE <100 ng/mL [facility] COCAINE METABOLITE PM (U) NEGATIVE <150 ng/mL [facility] MORPHINE (U) NEGATIVE <10 ng/mL [facility] MARIJUANA METABOLITE PM (U) NEGATIVE <20 ng/mL [facility] METHADONE PM (U) NEGATIVE <100 ng/mL [facility] OPIATES PM (U) NEGATIVE <100 ng/mL [facility] OXYCODONE PM (U) NEGATIVE <100 ng/mL [facility] CREATININE RANDOM URINE 79.2 > or = 20.0 mg/dL [facility] pH PM (U) 7.1 4.5 - 9.0 [facility] OXIDANT NEGATIVE <200 mcg/mL [facility] Note [facility] Comment: This drug testing is for medical treatment only. Analysis was performed as non-forensic testing and these results should be used only by healthcare providers to render diagnosis or treatment, or to monitor progress of medical conditions. LDT Notes: Confirmation tests were developed and their analytical performance characteristics have been determined by [facility]. It has not been cleared or approved by the FDA. This assay has been validated pursuant to the CLIA regulations and is used for clinical purposes. Healthcare Providers needing Interpretation assistance, please contact us at [phone] ( ) M-F, 8am to 10pm EST 01/05/2022 10:4 0 AM CDT 01/06/2022 5:42 AM CDT Tracy Olivares MD LABORATORY Final Result Performing Organization Address [facility] Co de Phone Number [facility] [address] [place] [address] [facility] [address] [place] [address] * HEMOGLOBIN, GLYCOSYLATED (01/05/2022 10:40 AM CDT) HGB A1C 5.6 <5.7 % of total Hgb [facility] Comment: For the purpose of screening for the presence of diabetes: <5.7% ? Consistent with the absence of diabetes 5.7-6.4% ?Consistent with increased risk for diabetes ?(prediabetes) > or =6.5% ??Consistent with diabetes This assay result is consistent with a decreased risk of diabetes. Currently, no consensus exists regarding use of hemoglobin A1c for diagnosis of diabetes in children. According to [place] Diabetes Association (ADA) guidelines, hemoglobin A1c <7.0% represents optimal control in non- diabetic patients. Different metrics may apply to specific patient populations. Standards of Medical Care in Diabetes(ADA). ?? 01/05/2022 10:4 0 AM CDT 01/06/2022 5:42 AM CDT Tracy Olivares MD LABORATORY Final Result [facility] [address] [address] * LIPID PANEL (01/05/2022 10:40 AM CDT) [...] LDL-C. Buddy SS et al. PORTER. 2013;310(19): 5950-4080 (http://education.Wolf Minerals/faq/GJQ059) CHOL/HDL RATIO 2.3 <5.0 (calc) [facility] [...] Result [facility] [address] [address] * TSH W/REFLEX (01/05/2022 10:40 AM CDT) TSH 2.88 0.40 - 4.50 mIU/L [facility] 01/05/2022 10:4 0 AM CDT 01/06/2022 5:42 AM CDT Tracy Olivares MD LABORATORY Final Result [facility] [address] [address] * (ABNORMAL) COMPREHENSIVE METABOLIC PANEL (01/05/2022 10:40 AM CDT) Pathologist [facility] GLUCOSE 107(H) 65 - 99 mg/dL [facility] Comment: ? Fasting reference interval For someone without known diabetes, a glucose value between 100 and 125 mg/dL is consistent with prediabetes and should be confirmed with a follow-up test. BUN 14 7 - 25 mg/dL [facility] CREATININE S/P/B 0.72 0.50 - 0.99 mg/dL [facility] Comment: For patients >49 years of age, the reference limit for Creatinine is approximately 13% higher for people identified as -Emirati. EGFR NON-AFR. AMER. 87 > OR = 60 mL/min/1 .73m2 [facility] EGFR AFR. AMER. 101 > OR = 60 mL/min/1 .73m2 [facility] BUN CREATININE RATIO NOT APPLICABLE 6 - 22 (calc) [facility] SODIUM S/P/B 142 135 - 146 mmol/L [facility] POTASSIUM S/P/B 4.1 3.5 - 5.3 mmol/L [facility] CHLORIDE S/P/B 105 98 - 110 mmol/L [facility] CO2 28 20 - 32 mmol/L [facility] CALCIUM S/P/B 9.3 8.6 - 10.4 mg/dL [facility] TOTAL PROTEIN S/P/B 6.6 6.1 - 8.1 g/dL [facility] ALBUMIN S/P/B 3.9 3.6 - 5.1 g/dL [facility] GLOBULIN 2.7 1.9 - 3.7 g/dL (calc) [facility] ALBUMIN/GLOBULIN RATIO 1.4 1.0 - 2.5 (calc) [facility] BILIRUBIN TOTAL S/P/B 0.4 0.2 - 1.2 mg/dL [facility] ALKALINE PHOSPHATASE S/P/B 129 37 - 153 U/L [facility] AST 13 10 - 35 U/L [facility] ALT 10 6 - 29 U/L [facility] 01/05/2022 10:4 0 AM CDT 01/06/2022 5:42 AM CDT us Tracy Olivares MD LABORATORY Final Result [facility] [address], [place] [address] * (ABNORMAL) CBC W/DIFF AUTOMATED (01/05/2022 10:40 [...] Result [facility] [address] [address] [facility] [place] [address] * ALBUMIN URINE RANDOM (01/05/2022) MICROALBUMIN (U) 10mg MG- [address], [facility] CREATININE RANDOM (U) 200mg [address], [facility] MICROALB/CREAT normal MG-[address], [facility] URINE SPECIMEN / Unknown 01/05/2022 Tracy Olivares MD URINE ORDERABLES Final Result [address], [facility] [address] [place] [address], [place] [phone] * URINALYSIS, AUTO, COMPLETE (01/05/2022) COLOR (U) YELLOW [address], [facility] TRANSPARENCY CLEAR [address], [facility] GLUCOSE (U) NEGATIVE NEGATIVE MG/DL [address], [facility] BILIRUBIN (U) NEGATIVE NEGATIVE MG-[address], [facility] KETONES MG/DL (U) NEGATIVE NEGATIVE MG/DL [address], [facility] SPECIFIC GRAVITY (U) 1.020 1.001 - 1.035 [address], [facility] BLOOD (U) NEGATIVE NEGATIVE [address], [facility] U PH 6.5 5.0 - 9.0 [address], [place] PROTEIN (U) NEGATIVE NEGATIVE mg/dL MG[address], [facility] UROBILINOGEN 0.2 0.2 - 1.0 EU/dL = mg/dL [address], [facility] NITRITES NEGATIVE NEGATIVE MG/DL [address], [facility] LEUKOCYTES (U) NEGATIVE NEGATIVE MG-[address], [facility] URINE SPECIMEN OBTAINED BY CLEAN CATCH PROCEDURE / Unknown 01/05/2022 us Tracy Olivares MD URINE ORDERABLES Final Result [address], [facility] [address] [facility] [address] [place] [address], [place] [phone] documented in this encounter Visit Diagnoses Diagnosis Annual physical exam- Primary Routine general medical examination at a health care facility General medical exam Unspecified general medical examination Screening for hypothyroidism Screening for thyroid disorder Moderate episode of recurrent major depressive disorder ([facility]) Pulmonary emphysema, unspecified emphysema type ([facility]) Essential hypertension Unspecified essential hypertension Mixed hyperlipidemia [...] (BMI) of 50.0 to 59.9 in adult ([facility]) Hearing loss of left ear, unspecified hearing loss type Gastroesophageal reflux disease without esophagitis Esophageal reflux Glaucoma, unspecified glaucoma type, unspecified laterality Cataract, unspecified cataract type, unspecified laterality Drug therapy Encounter for long-term (current) use of other medications Acute maxillary sinusitis, recurrence not specified Type 2 diabetes mellitus with hyperglycemia, without long-term current use of insulin ([facility]) Seasonal allergic rhinitis due to pollen Generalized anxiety disorder Idiopathic peripheral neuropathy Unspecified hereditary and idiopathic peripheral neuropathy Low back pain due to bilateral sciatica documented in this encounter Additional Health Concerns Assessment Noted Time PHQ-9 Depression Total Score: 5 01/06/20 22 10:48 AM CDT documented as of this encounter Care Teams Truss Maker Relationship Specialty Start Date End Date Tracy Olivares MD [address] [facility] [address] [place] [address] PCP - General INTERNAL MEDICINE 01/02/21 Nathan Baig MD [address] [address] Consulting Physician Internal Medicine Pulmonary Disease 09/16/21 documented as of this encounter
--- OUTSIDE RECORDS SUMMARY | 2024-09-07 15:20 | XMS_ITS | Encounter Summary ---
Author Organization [facility] - [facility] Address [address] [place] [address]. [place], [place] [address] [place] [address] Care Team Providers Care Study Assistant Name Role Phone Tracy Olivares MD Primary Care Provider [phone] Reason for Visit * Reason Comments Dizziness states her dizziness comes and goes but she feels it is getting worse. She thinks these issues are sinus related Encounter Details Date Type Department Care Team (Latest Contact Info) Description 09/01/2021 9:20 AM RESIDENTIAL LEASING MANAGER Office Visit [facility] Multispecialty Care - [place] [address] [address] [place] [address] Tracy Olivares MD [address] [place] [address] [place] [address] Dizziness (states her dizziness comes [...] COVID-19? No / Unsure 09/01/2021 8:51 AM RESIDENTIAL LEASING MANAGER documented as of this encounter Last Filed Vital Signs Vital Sign Reading Time Taken Comments Blood Pressure 140/80 09/01/2021 9:29 AM RESIDENTIAL LEASING MANAGER Pulse 81 09/01/2021 9:05 AM RESIDENTIAL LEASING MANAGER Temperature 36.8 ??C (98.2 ??F) 09/01/2021 9:05 AM CS T Respiratory Rate 17 09/01/2021 9:05 AM RESIDENTIAL LEASING MANAGER Oxygen Saturation 96% 09/01/2021 9:05 AM RESIDENTIAL LEASING MANAGER Inhaled Oxygen Concentration - - Weight 128.8 kg (284 lb) 09/01/2021 9:05 AM RESIDENTIAL LEASING MANAGER Height 161.3 cm (5' 3.5 ) 09/01/2021 9:05 AM RESIDENTIAL LEASING MANAGER Body Mass Index 49.52 09/01/2021 9:05 AM RESIDENTIAL LEASING MANAGER documented in this encounter Patient Instructions * Patient Instructions* Tracy Olivares MD - 09/01/2021 9:20 AM RESIDENTIAL LEASING MANAGER Images from the original note were not included. Patient Education Patient Education Vertigo (a Type of Dizziness) The Basics Written by the doctors and editors at [facility] What are dizziness and vertigo???--??Dizziness is a [...] process is complete. This topic retrieved from [employer] on: Apr 30, 2021. Topic 35440 Version 5.0 Release: 29.4.2 - C29.229 ?2020??[employer]Com[employer]. and/or its affiliates.??All rights reserved. figure 1: [...] when you are standing or walking. Graphic 45852 Version 10.0 Consumer Information Use and Disclaimer [...] of this information is governed by the R[employer]ink[employer] End User License Agreement, available at https://www.Mobile Tracing Services/en/solutions/Nomacorc/about/lonny.The use of [employer] content is governed by the [employer] Terms of Use. ??2020 [employer]Com[employer]. All rights reserved. Copyright ?2020??[employer] Online Devices and/or its affiliates.??All rights reserved. Patient Education Patient Education Sinusitis in Adults The Basics Written by the doctors and editors at [facility] What is sinusitis???--??Sinusitis is a condition that [...] your symptoms, you can: ?? Take an days-adt-armnisz pain reliever to reduce the pain ?? [...] process is complete. This topic retrieved from [employer] on: Apr 30, 2021. Topic 45560 Version 17.0 Release: 29.4.2 - C29.229 ?2020??[employer] and/or its affiliates.??All rights reserved. figure 1: Sinuses of the face This??drawing shows the sinuses of the face, from the??side and front views. Graphic 936430 Version 1.0 Consumer Information Use and Disclaimer [...] of this information is governed by the [employer] End User License Agreement, available at https://www.Xpreso.commercetools/en/solutions/Nomacorc/about/lonny.The use of Per[employer] content is governed by the [employer] Terms of Use. ??2020 [employer]. All rights reserved. Copyright ?2020??[employer] and/or its affiliates.??All rights reserved. DENTIAL LEASING MANAGER documented in this encounter Progress Notes [...] was at least in part performed using [employer]. and there may be some inherent flaws in this agricultural extension agent due to the nature of this program. Tracy Olivares MD Internal Medicine [facility], [facility]. DENTIAL LEASING MANAGER DENTIAL LEASING MANAGER documented in this encounter Plan of Treatment Upcoming Encounters Date Type Department Care Team (Late st Contact Info) Description 10/03/2024 11:00 AM RESIDENTIAL LEASING MANAGER Office Visit [facility] Pulmonology Specialty Clinic - [address] [address] Nathan Baig MD [address] [place] [address] 11/14/2024 10:20 AM RESIDENTIAL LEASING MANAGER Office Visit [facility] Multispecialty Care - [place] [address] [address] [place] [address] Tracy Olivares MD [address] [place] [address], [place] [address] documented as of this encounter Visit Diagnoses Diagnosis Vertigo- Primary Dizziness and giddiness Acute recurrent frontal sinusitis Acute frontal sinusitis documented in this encounter Additional Health Concerns Assessment Noted Time PHQ-9 Depression Total Score: 3 07/06/20 21 9:34 AM CDT documented as of this encounter Care Teams Study Assistant Relationship Specialty Start Date End Date Tracy Olivares MD [address] [address] PCP - General INTERNAL MEDICINE 01/02/21 documented as of this encounter
--- OUTSIDE RECORDS SUMMARY | 2024-09-07 15:20 | XMS_ITS | Encounter Summary ---
Author Organization [facility] Address [address] [place] [address]. [place], [place] [address] [place] [address] Care Team Providers Care Senior Administrative Support Name Role Phone Tracy Olivares MD Primary Care Provider [phone] Encounter Details Date Type Department Care Team [...] Contact Info) Description 10/03/2024 11:00 AM EDITOR CONTINUITY AND SCRIPT Office Visit [facility] Pulmonology Specialty Clinic - [address] [place] [address] Nathan Baig MD [address] [address] 11/14/2024 10:20 AM EDITOR CONTINUITY AND SCRIPT Office Visit [facility] Multispecialty Care - [place] [address] [address] [place] [address] [place] [address] [place] [address] documented as of this encounter Visit Diagnoses Not on filedocumented in this encounter Additional Health Concerns Assessment Noted Time PHQ-9 Depression Total Score: 9 04/14/20 10:21 AM CDT documented as of this encounter Care Teams Senior Administrative Support Relationship Specialty Start Date End Date Tracy Olivares MD [address] [place] [address] PCP - General INTERNAL MEDICINE 01/02/21 documented as of this encounter
--- OUTSIDE RECORDS SUMMARY | 2024-09-07 15:20 | XMS_ITS | Encounter Summary ---
Author Organization [facility] Address [address] [place] [address]. [place], [place] [address] [place] [address] Care Team Providers Care Information Systems Supervisor Name Role Phone Tracy Olivares MD Primary Care Provider [phone] Encounter Details Date Type Department Care Team [...] st Contact Info) Description 10/03/2024 11:00 AM DONOR SUPPORT TECHNICIAN Office Visit [facility] Pul[facility] Specialty Clinic - [place] [address] [place] [address] Nathan Baig MD [address] [place] [address] 11/14/2024 10:20 AM DONOR SUPPORT TECHNICIAN Office Visit [facility] Multispecialty Care - [place] [address] [address] [place] [address] Tracy Olivares MD [address] [place] [address] documented as of this encounter Visit Diagnoses Not on filedocumented in this encounter Additional Health Concerns Assessment Noted Time PHQ-9 Depression Total Score: 9 04/14/20 10:21 AM CDT documented as of this encounter Care Teams Information Systems Supervisor Relationship Specialty Start Date End Date Tracy Olivares MD [address] [place] [address] PCP - General INTERNAL MEDICINE 01/02/21 documented as of this encounter
--- OUTSIDE RECORDS SUMMARY | 2024-09-07 15:20 | XMS_ITS | Encounter Summary ---
Author Organization [facility] Address [address] [place] [address]. [place], [place] [address] [place] [address] Care Team Providers Care Occupational Health Professional Name Role Phone Tracy Olivares MD Primary Care Provider [phone] Nathan Baig MD Unavailable [phone] Encounter Details Date Type Department Care [...] COVID-19? No / Unsure 09/25/2021 8:58 AM MEASUREMENT ADVISOR documented as of this encounter Plan of Treatment Upcoming Encounters Date Type Department Care Team (Late st Contact Info) Description 10/03/2024 11:00 AM MEASUREMENT ADVISOR Office Visit [facility] - [address] [place] [address] Nathan Baig MD 3 [facility] [address] [place] [address] 11/14/2024 10:20 AM MEASUREMENT ADVISOR Office Visit [facility] Medical Group Multispecialty Care - [place] [address] [address] [place] [address] Tracy Olivares MD [address] [place] [address] documented as of this encounter Visit Diagnoses Not on filedocumented in this encounter Additional Health Concerns Assessment Noted Time PHQ-9 Depression Total Score: 6 09/16/19 10:54 AM MEASUREMENT ADVISOR documented as of this encounter Care Teams Occupational Health Professional Relationship Specialty Start Date End Date Tracy Olivares MD [address] [place] [address] PCP - General INTERNAL MEDICINE 01/02/21 Nathan Baig MD 3 [facility] [address] [place] [address] Consulting Physician Internal Medicine Pulmonary Disease 09/16/21 documented as of this encounter
--- OUTSIDE RECORDS SUMMARY | 2024-09-07 15:20 | XMS_ITS | Encounter Summary ---
Author Organization [facility] - [facility] Address [address] [place] [address]. [place], [place] [address] [place] [address] Care Team Providers Care Charge Account Identification Clerk Name Role Phone Tracy Olivares MD Primary Care Provider [phone] Nathan Baig MD Unavailable [phone] Reason for Visit * Reason Onset Date Comments Medication 10/14/2021 Encounter Details Date Type Department Care Team (Late st Contact Info) Description 10/14/2021 Telephone [facility] Medical Group Multispecialty Care - [place] [address] [place] [address] [address] [place] [address] [place] [address] [place] [address] 157 [place] [address] Medication Social History Tobacco Use [...] COVID-19? No / Unsure 10/08/2021 9:29 AM HEAD CONTROL CLERK documented as of this encounter Progress Notes * Tracy Olivares MD - 10/14/2021 9:21 AM CST Prefers to stay on the 0.5 mg weekly for sometime prior to transitioning to the 1mg-script sent. CONTROL CLERK documented in this encounter Plan of Treatment Upcoming Encounters Date Type Department Care Team (Late st Contact Info) Description 10/03/2024 11:00 AM HEAD CONTROL CLERK Office Visit [facility] Medical [facility] Pulmonology Specialty Clinic - [address] [address] Nathan Baig MD [address] [address] 11/14/2024 10:20 AM HEAD CONTROL CLERK Office Visit [facility] Medical [facility] Multispecialty Care - [place] [address] [address] [place] [address] [place] [address] [place] [address] documented as of this encounter Visit Diagnoses Diagnosis Prediabetes- Primary Other abnormal glucose Class 3 severe obesity due to excess calories without serious comorbidity with body mass index (BMI) of 50.0 to 59.9 in adult ([facility]) documented in this encounter Additional Health Concerns Assessment Noted Time PHQ-9 Depression Total Score: 6 09/16/19 10:54 AM HEAD CONTROL CLERK documented as of this encounter Care Teams Charge Account Identification Clerk Relationship Specialty Start Date End Date Tracy Olivares MD [address] [place] [address] PCP - General INTERNAL MEDICINE 01/02/21 Nathan Baig MD [address] [address] Consulting Physician Internal Medicine Pulmonary Disease 09/16/21 documented as of this encounter
--- OUTSIDE RECORDS SUMMARY | 2024-09-07 15:20 | XMS_ITS | Encounter Summary ---
Author Organization [facility] Address [address] [place] [address]. [place], [place] [address] [place] [address] Care Team Providers Care Senior Production Manager Name Role Phone Tracy Olivares MD Primary Care Provider [phone] Encounter Details Date Type Department Care Team [...] st Contact Info) Description 10/03/2024 11:00 AM MERCHANDISE DELIVERER [facility] - [address] [place] [address] Nathan Baig MD [address] [place] [address] 11/14/2024 10:20 AM MERCHANDISE DELIVERER [facility] Multispecialty Care - [place] [address] [address] [place] [address] Tracy Olivares MD [address] [place] [address] documented as of this encounter Visit Diagnoses Not on filedocumented in this encounter Additional Health Concerns Assessment Noted Time PHQ-9 Depression Total Score: 3 07/06/20 21 9:34 AM CDT documented as of this encounter Care Teams Senior Production Manager Relationship Specialty Start Date End Date Tracy Olivares MD [address] [place] [address] PCP - General INTERNAL MEDICINE 01/02/21 documented as of this encounter
--- OUTSIDE RECORDS SUMMARY | 2024-09-07 15:20 | XMS_ITS | Encounter Summary ---
Author Organization [facility] Address [address] [place] [address]. [place], [place] [address] [place] [address] Care Team Providers Care Assembly Operator Name Role Phone Tracy Olivares MD Primary Care Provider [phone] Encounter Details Date Type Department Care Team [...] COVID-19? No / Unsure 09/10/2021 9:35 AM SHAREPOINT SOLUTIONS DEVELOPER documented as of this encounter Plan of Treatment Upcoming Encounters Date Type Department Care Team (Late st Contact Info) Description 10/03/2024 11:00 AM SHAREPOINT SOLUTIONS DEVELOPER Office Visit [facility] Medical Group Pulmonology Specialty Clinic - [place] [address] [place] [address] Nathan Baig MD [address] [place] [address] 11/14/2024 10:20 AM SHAREPOINT SOLUTIONS DEVELOPER Office Visit [facility] Medical Group Multispecialty Care - [place] [address] [address] [place] [address] Tracy Olivares MD [address] [place] [address] documented as of this encounter Visit Diagnoses Not on filedocumented in this encounter Additional Health Concerns Assessment Noted Time PHQ-9 Depression Total Score: 3 07/06/20 21 9:34 AM CDT documented as of this encounter Care Teams Assembly Operator Relationship Specialty Start Date End Date Tracy Olivares MD [address] [place] [address] PCP - General INTERNAL MEDICINE 01/02/21 documented as of this encounter
--- OUTSIDE RECORDS SUMMARY | 2024-09-07 15:20 | XMS_ITS | Encounter Summary ---
Author Organization [facility] - [facility] Address [address] [place] [address]. [address] [address] Care Team Providers Care Sign Builder Name Role Phone Tracy Olivares MD Primary Care Provider [phone] Reason for Visit * Reason Comments Follow Up Pt is here for a fol low up on constipation and phentermine. Encounter Details Date Type Department Care Team (Latest Contact Info) Description 08/03/2021 9:20 AM CLOTH DESIZING RANGE TENDER Office Visit [facility] Medical Group Multispecialty Care - [place] [address] [address] [place] [address] Tracy Olivares MD [address] [place] [address] 157 [place] [address] Follow Up (Pt is here [...] COVID-19? No / Unsure 08/03/2021 9:18 AM CLOTH DESIZING RANGE TENDER documented as of this encounter Last Filed Vital Signs Vital Sign Reading Time Taken Comments Blood Pressure 145/88 08/03/2021 9:24 AM CLOTH DESIZING RANGE TENDER Pulse 88 08/03/2021 9:24 AM CLOTH DESIZING RANGE TENDER Temperature 36.4 ??C (97.6 ??F) 08/03/2021 9:24 AM CS T Respiratory Rate 16 08/03/2021 9:24 AM CLOTH DESIZING RANGE TENDER Oxygen Saturation 100% 08/03/2021 9:24 AM CLOTH DESIZING RANGE TENDER Inhaled Oxygen Concentration - - Weight 130.2 kg (287 lb) 08/03/2021 9:24 AM CLOTH DESIZING RANGE TENDER Height 165.9 cm (5' 5.3 ) 08/03/2021 9:24 AM CLOTH DESIZING RANGE TENDER Body Mass Index 47.32 08/03/2021 9:24 AM CLOTH DESIZING RANGE TENDER documented in this encounter Patient Instructions * Patient Instructions* Tracy Olivares MD - 08/03/2021 9:20 AM CLOTH DESIZING RANGE TENDER Images from the original note were not [...] low-fat sour cream or salad dressings ? [place] butter ? Diet syrups or jellies over [...] products: ? 1% or skim milk ? [place] butter or margarine ? Low-fat or fat-free [...] learn more? Academy of Nutrition and Dietetics https://www.eatright.org/health/weight-loss/dlyp-brhzdw-asq-your-weight/back-to- qiovuy-xir-zwnrign-weight-loss Centers for Disease Control and Prevention https://www.cdc.gov/healthyweight/healthy_eating/index.html Familydoctor.org https://familydoctor.org/qiogzkyhp-nlftcz-uqrs-czuk-rblv-hah-diets/ NHS https://www.nhs.uk/live-well/healthy-weight/54-lcqt-ta-znxy-vnf-xtib-weight/?tab name=yur-bqt-xjxu-weight Last Reviewed Date 2021-03-05 Consumer Information Use [...] right for you. Copyright Copyright ?? 2020 [employer]. and its affiliates and/or licensors. All rights reserved. H DESIZING RANGE TENDER H DESIZING RANGE TENDER documented in this encounter Progress Notes * [...] (BMI) of 45.0 to 49.9 in adult ([facility]) E66.01 278.01 SEVERE OBESITY Z68.42 V85.42 2. [...] hyperglycemia, without long-term current use of insulin ([facility]) E11.65 250.00 TYPE 2 DIABETES MELLITUS semaglutide (OZEMPIC 0.25/0.5 MG/DOSE) 2 MG/1.5ML injection (PEN) 790.29 1. Class 3 severe obesity due to excess calories without serious comorbidity with body mass index (BMI) of 45.0 to 49.9 in adult ([facility]) - -Pt has elevated weight with BMI Body mass index is 47.32 kg/m??., and will need to work hard on reducing carbohydrates and total calories. -You may use the free smart phone apps such as Rivono to help track calories and try to [...] hyperglycemia, without long-term current use of insulin ([facility]) - On Metformin, not controlled - start [...] was at least in part performed using [employer] speak and there may be some inherent flaws in this leathersmith due to the nature of this program. Tracy Olivares MD Internal Medicine [facility], [facility]. H DESIZING RANGE TENDER documented in this encounter Plan of Treatment Upcoming Encounters Date Type Department Care Team (Late st Contact Info) Description 10/03/2024 11:00 AM CLOTH DESIZING RANGE TENDER Office Visit [facility] Medical Group Pulmonology Specialty Clinic - [address] [address] Nathan Baig MD [address] [place] [address] 11/14/2024 10:20 AM CLOTH DESIZING RANGE TENDER Office Visit [facility] Medical [facility] Multispecialty Care - [place] [address] [address] [place] [address] Tracy Olivares MD [facility] [address] documented as of this encounter Visit Diagnoses Diagnosis Class 3 severe obesity due to excess calories without serious comorbidity with body mass index (BMI) of 45.0 to 49.9 in adult ([facility]/HCC)- Primary Other constipation Chronic bilateral low back pain with bilateral sciatica Chronic pain of right knee Type 2 diabetes mellitus with hyperglycemia, without long-term current use of insulin ([facility]HS/HCC) documented in this encounter Additional Health Concerns Assessment Noted Time PHQ-9 Depression Total Score: 3 07/06/20 9:34 AM CDT documented as of this encounter Care Teams Sign Builder Relationship Specialty Start Date End Date Tracy Olivares MD [address] [place] [address] PCP - General INTERNAL MEDICINE 01/02/21 documented as of this encounter
--- OUTSIDE RECORDS SUMMARY | 2024-09-07 15:20 | XMS_ITS | Encounter Summary ---
Author Organization [facility] Address [address] [place] [address]. [place], [place] [address] [place] [address] Care Team Providers Care Title Clerk Name Role Phone Tracy Olivares MD Primary Care Provider [phone] Nathan Baig MD Unavailable [phone] Encounter Details Date Type Department Care [...] st Contact Info) Description 10/03/2024 11:00 AM LEAVE COORDINATOR Office Visit [facility] Medical Group Pulmonology Specialty Clinic - [address] [place], [place] [address] Nathan Baig MD 3 [facility] [address] [place] [address] 11/14/2024 10:20 AM LEAVE COORDINATOR Office Visit [facility] Medical Group Multispecialty Care - [place] [address] [address] [place] [address] Tracy Olivares MD [facility] [address] [address] documented as of this encounter Visit Diagnoses Not on filedocumented in this encounter Additional Health Concerns Assessment Noted Time PHQ-9 Depression Total Score: 5 01/06/20 10:48 AM CDT documented as of this encounter Care Teams Title Clerk Relationship Specialty Start Date End Date Tracy Olivares MD [address] [place] [address] PCP - General INTERNAL MEDICINE 01/02/21 Nathan Baig MD 3 [facility] [address] [place] [address] Consulting Physician Internal Medicine Pulmonary Disease 09/16/21 documented as of this encounter
--- OUTSIDE RECORDS SUMMARY | 2024-09-07 15:20 | XMS_ITS | Encounter Summary ---
Author Organization [facility] Address [address] [place] [address]. [place], [place] [address] [place] [address] Care Team Providers Care Cylinder Valve Repairer Name Role Phone Tracy Olivares MD Primary Care Provider [phone] Reason for Visit * Reason Comments Lab [...] (Late Contact Info) Description 10/03/2024 11:00 AM SMOKING TOBACCO PACKING MACHINE HAND Office Visit [facility] Medical Group Pulmonology Specialty Clinic - [address] [place] [address] Nathan Baig MD 3 [facility] [address] [place] [address] 11/14/2024 10:20 AM SMOKING TOBACCO PACKING MACHINE HAND Office Visit [facility] Medical Group Multispecialty Care - [place] [address] [address] [place] [address] Tracy Olivares MD [address] [address] documented as of this encounter Procedures Procedure [...] as of this encounter Care Teams Cylinder Valve Repairer Relationship Specialty Start Date End Date Tracy Olivares MD [address] [place] [address] PCP - General INTERNAL MEDICINE 01/02/21 documented as of this encounter
--- OUTSIDE RECORDS SUMMARY | 2024-09-07 15:20 | XMS_ITS | Encounter Summary ---
Author Organization [facility] Address [address] [place] [address]. [place], [place] [address] [place] [address] Care Team Providers Care Adoption Specialist Name Role Phone Tracy Olivares MD Primary Care Provider [phone] Encounter Details Date Type Department Care Team [...] COVID-19? No / Unsure 08/03/2021 9:18 AM CARD CLOTHIER documented as of this encounter Plan of Treatment Upcoming Encounters Date Type Department Care Team (Late st Contact Info) Description 10/03/2024 11:00 AM CARD CLOTHIER Office Visit [facility] Medical [facility] Pulmonology Specialty Clinic - [address] [place] [address] Nathan Baig MD [address] [place] [address] 11/14/2024 10:20 AM CARD CLOTHIER Office Visit [facility] Medical Group Multispecialty Care - [place] [address] [address] [place] [address] Tracy Olivares MD [address] [place] [address] documented as of this encounter Visit Diagnoses Not on filedocumented in this encounter Additional Health Concerns Assessment Noted Time PHQ-9 Depression Total Score: 3 07/06/20 21 9:34 AM CDT documented as of this encounter Care Teams Adoption Specialist Relationship Specialty Start Date End Date Tracy Olivares MD [address] [place] [address] PCP - General INTERNAL MEDICINE 01/02/21 documented as of this encounter
--- OUTSIDE RECORDS SUMMARY | 2024-09-07 15:20 | XMS_ITS | Encounter Summary ---
Author Organization [facility] Address [address] [place] [address]. [place], [place] [address] [place] [address] Care Team Providers Care Manager Etl Name Role Phone Tracy Olivares MD Primary Care Provider [phone] Reason for Visit * Reason Comments Ultrasound (SCAN) Mammogram (SCAN) Encounter Details Date Type Department Care Team ([facility] Contact Info) Description 08/25/2021 Scan HEALTH INFO [...] COVID-19? No / Unsure 09/01/2021 8:51 AM PROFESSOR OF VOICE documented as of this encounter Plan of Treatment Upcoming Encounters Date Type Department Care Team ([facility] Contact Info) Description 10/03/2024 11:00 AM PROFESSOR OF VOICE [facility] Clinic - [address] [place] [address] Nathan Baig MD [address] [address] 11/14/2024 10:20 AM PROFESSOR OF VOICE [facility] Multispecialty Care - [place] [address] [place] [address] [address] [address] [place] [address] Tracy Olivares MD 118[address] [facility] 157 [place] [address] documented as of this encounter Procedures Procedure [...] as of this encounter Care Teams Manager Etl Relationship Specialty Start Date End Date Tracy Olivares MD [facility] [address] [address] PCP - General INTERNAL MEDICINE 01/02/21 documented as of this encounter
--- OUTSIDE RECORDS SUMMARY | 2024-09-07 15:20 | XMS_ITS | Encounter Summary ---
Author Organization [facility] Address [address] [place] [address]. [place] [address] [place] [address] Care Team Providers Care Oil Rig Driller Name Role Phone Tracy Olivares MD Primary Care Provider [phone] Nathan Baig MD Unavailable [phone] Reason for Visit * Reason Comments Follow Up 1 month f/u on weigh t loss, ozempic Encounter Details Date Type Department Care Team (Latest Contact Info) Description 10/08/2021 9:40 AM WINERY CELLAR HAND Office Visit [facility] Medical Group Multispecialty Care - [place] [address] [address] [place] [address] Tracy Olivares MD [address] [place] [address] Follow Up (1 month f/u on weight [...] COVID-19? No / Unsure 10/08/2021 9:29 AM WINERY CELLAR HAND documented as of this encounter Last Filed Vital Signs Vital Sign Reading Time Taken Comments Blood Pressure 138/86 10/08/2021 9:50 AM WINERY CELLAR HAND Pulse 89 10/08/2021 9:50 AM WINERY CELLAR HAND Temperature 36.7 ??C (98.1 ??F) 10/08/2021 9:50 AM CS T Respiratory Rate 16 10/08/2021 9:50 AM WINERY CELLAR HAND Oxygen Saturation 99% 10/08/2021 9:50 AM WINERY CELLAR HAND Inhaled Oxygen Concentration - - Weight 128.8 kg (284 lb) 10/08/2021 9:50 AM WINERY CELLAR HAND Height 161.3 cm (5' 3.5 ) 10/08/2021 9:50 AM WINERY CELLAR HAND Body Mass Index 49.52 10/08/2021 9:50 AM WINERY CELLAR HAND documented in this encounter Patient Instructions * Patient Instructions* Tracy Olivares MD - 10/08/2021 9:40 AM WINERY CELLAR HAND Images from the original note were not included. Follow up in January 05, 2022- come fasting on this day. Patient Education Patient Education Diet and Health The Basics Written by the doctors and editors at [facility] Why is it important to eat [...] process is complete. This topic retrieved from [employer] on: Aug 18, 2021. Topic 09003 Version 20.0 Release: 29.5.2 - C29.340 ?2020??[employer]. and/or its affiliates.??All rights reserved. figure 1: Nutrition label - fiber This is an example of a nutrition label. To figure out how much fiber is in a food, look for the line that says Dietary Fiber. It's also important to look at the serving size. This food has 7 gramsof fiber in each serving, and each serving is 1 cup. Graphic 43981 Version 7.0 figure 2: Foods and drinks with calcium and vitamin D Foods rich in calcium include ice cream, soy milk, breads, kale, broccoli, milk, cheese, cottage cheese, almonds, yogurt, ystiq-sn-kqz cereals, beans, and tofu. Foods rich in vitamin D include milk, fortified plant-based milks (soy, almond),??canned tuna fish, cod liver oil, yogurt, rbihb-qz-rmb-cereals, cooked salmon, canned sardines, mackerel, and eggs. Some of these foods are rich in both. Graphic 82107 Version 4.0 Consumer Information Use and Disclaimer [...] of this information is governed by the [employer] End User License Agreement, available at https://www.[email or web address].Zillow/en/solutions/HipLink/about/lonny.The use of [employer] content is governed by the [employer] Terms of Use. ??2021 [employer]. All rights reserved. Copyright ?2020??[employer]. and/or its affiliates.??All rights reserved. RY CELLAR HAND RY CELLAR HAND documented in this encounter Progress Notes * [...] the free smart phone apps such as Vusay to help track calories and try to [...] was at least in part performed using MyVR and there may be some inherent flaws in this steak sauce maker due to the nature of this program. Tracy Olivares MD Internal Medicine [facility], [facility]. RY CELLAR HAND documented in this encounter Plan of Treatment Upcoming Encounters Date Type Department Care Team (Late st Contact Info) Description 10/03/2024 11:00 AM WINERY CELLAR HAND Office Visit [facility] Medical [facility] Pulmonology Specialty Clinic - [address] [address] Nathan Baig MD [address] [place] [address] 11/14/2024 10:20 AM WINERY CELLAR HAND Office Visit [facility] Medical Group Multispecialty Care - [place] [address] [address] [place] [address] Tracy Olivares MD [address] [place] [address] documented as of this encounter Visit Diagnoses Diagnosis Prediabetes- Primary Other abnormal glucose Obesity with serious comorbidity, unspecified classification, unspecified obesity type documented in this encounter Additional Health Concerns Assessment Noted Time PHQ-9 Depression Total Score: 6 09/16/19 10:54 AM WINERY CELLAR HAND documented as of this encounter Care Teams Oil Rig Driller Relationship Specialty Start Date End Date Tracy Olivares MD [address] [address] PCP - General INTERNAL MEDICINE 01/02/21 Nathan Baig MD [address] [address] Consulting Physician Internal Medicine Pulmonary Disease 09/16/21 documented as of this encounter
--- OUTSIDE RECORDS SUMMARY | 2024-09-07 15:20 | XMS_ITS | Encounter Summary ---
Author Organization [facility] Address [address] [place] [address]. [place] [id number] [place] [address] Care Team Providers Care Tax Commissioner Name Role Phone Tracy Olivares MD Primary Care Provider [phone] Reason for Visit * Reason Onset Date Comments Follow Up Call 07/06/2021 Encounter Details Date Type Department Care Team (Late st Contact Info) Description 07/06/2021 Telephone [facility] Medical Group Multispecialty Care - [address] [place] [address] [place] [address] [place] [address] 157 [place] [address] Follow Up Call Social History [...] update. Thanks Tracy Olivares MD Internal Medicine [facility]. documented in this encounter Plan of Treatment Upcoming Encounters Date Type Department Care Team (Late st Contact Info) Description 10/03/2024 11:00 AM ELECTRICIAN MASTER Office Visit [facility] Pulmonology Specialty Clinic - [address] [address] Nathan Baig MD [address] [place] [address] 11/14/2024 10:20 AM ELECTRICIAN MASTER Office Visit [facility] Multispecialty Care - [place] [address] [address] [place] [address] Tracy Olivares MD [facility] [address] [address] documented as of this encounter Visit Diagnoses Not on filedocumented in this encounter Additional Health Concerns Assessment Noted Time PHQ-9 Depression Total Score: 3 07/06/20 21 9:34 AM CDT documented as of this encounter Care Teams Tax Commissioner Relationship Specialty Start Date End Date Tracy Olivares MD [address] [place] [address] PCP - General INTERNAL MEDICINE 01/02/21 documented as of this encounter
--- OUTSIDE RECORDS SUMMARY | 2024-09-07 15:20 | XMS_ITS | Encounter Summary ---
Author Organization [facility] - [facility] Address [address] [place] [address]. [address] [address] Care Team Providers Care Dental Lab Technician Name Role Phone Tracy Olivares MD Primary Care Provider [phone] Reason for Visit * Reason Comments Follow Up lower back pain Leg Pain Right lateral leg nu mbness Encounter Details Date Type Department Care Team (Latest Contact Info) Description 05/11/2021 9:40 AM CDT Office Visit [facility] Medical Group Multispecialty Care - [place] [address] [address] [place] [address] Tracy Olivares MD [address] [place] [address] 157 [place], [place] [id number] Follow Up (lower back pain); Leg Pain [...] Then, bend with your knees when you brain picker something from the ground. ? When [...] best results. ? Lie on your back. ict support technicians the knee of the painful side until [...] or foot. Where can I learn more? [employer] https://familydoctor.org/condition/piriformis-syndrome/ Health Navigator [...] right for you. Copyright Copyright ?? 2020 Open[employer]. and its affiliates and/or licensors. All rights [...] the free smart phone apps such as Hintsoft to help track calories and try to [...] was at least in part performed using Minutizer and there may be some inherent flaws in this equipment service engineer due to the nature of this program. Tracy Olivares MD Internal Medicine [facility], [facility]. documented in this encounter Plan of Treatment Upcoming Encounters Date Type Department Care Team (Late st Contact Info) Description 10/03/2024 11:00 AM MACHINIST AUTOMOTIVE Office Visit [facility] Medical Group Pulmonology Specialty Clinic - [address] [address] Nathan Baig MD [address] [place] [address] 11/14/2024 10:20 AM MACHINIST AUTOMOTIVE Office Visit [facility] Multispecialty Care - [place] [address] [address] [place] [address] Tracy Olivares MD [address] [address] documented as of this encounter Visit Diagnoses Diagnosis Chronic bilateral low back pain with bilateral sciatica- Primary Idiopathic peripheral neuropathy Unspecified hereditary and idiopathic peripheral neuropathy Class 3 severe obesity due to excess calories without serious comorbidity with body mass index (BMI) of 50.0 to 59.9 in adult ([facility]) documented in this encounter Additional Health Concerns Assessment Noted Time PHQ-9 Depression Total Score: 9 04/14/20 21 10:21 AM CDT documented as of this encounter Care Teams Dental Lab Technician Relationship Specialty Start Date End Date Tracy Olivares MD [address] [place] [address] PCP - General INTERNAL MEDICINE 01/02/21 documented as of this encounter
--- OUTSIDE RECORDS SUMMARY | 2024-09-07 15:20 | XMS_ITS | Encounter Summary ---
Author Organization [facility] Address [address] [place] [address]. [place], [place] [address] [place] [address] Care Team Providers Care Director Electronics Name Role Phone Tracy Olivares MD Primary Care Provider [phone] Nathan Baig MD Unavailable [phone] Reason for Visit * Reason Comments Pathology (SCAN) Encounter Details Date Type Department Care Team ([facility] Contact Info) Description 01/12/2022 Scan HEALTH INFO [...] Care Team ([facility] Contact Info) Description 10/03/2024 11:00 AM DOWEL INSPECTOR Office Visit [facility] Medical Group Pul[facility]ology Specialty [facility] - [place] [address] [address] Nathan Baig MD 3 [facility] [address] [place] [address] 11/14/2024 10:20 AM DOWEL INSPECTOR Office Visit [facility] Medical Group Multispecialty Care - [place] [address] [address] [place] [address] Tracy Olivares MD [facility] [address] [address] documented as of this encounter Procedures Procedure [...] as of this encounter Care Teams Director Electronics Relationship Specialty [place] [address] [place] [address] PCP - General INTERNAL MEDICINE 01/02/21 Nathan Baig MD 3 [facility] [place] [address] [place] [address] Consulting Physician Internal Medicine Pulmonary Disease 09/16/21 documented as of this encounter
--- OUTSIDE RECORDS SUMMARY | 2024-09-07 15:20 | XMS_ITS | Encounter Summary ---
Author Organization [facility] Address [address] [place] [address]. [place], [place] [address] [place] [address] Care Team Providers Care Wet Mixer Name Role Phone Tracy Olivares MD Primary Care Provider [phone] Nathan Baig MD Unavailable [phone] Reason for Visit * Reason Onset Date Comments Question 10/05/2021 Question on if p atient should have procedure due to sinus issues Encounter Details Date Type Department Care Team (Late st Contact Info) Description 10/05/2021 Telephone [facility] Medical Group Multispecialty Care - [place] [address] [place] [address] [address] [place] [address] Tracy Olivares MD 1188 [facility] 157 [place] [address] Question (Question on if patient [...] COVID-19? No / Unsure 09/25/2021 8:58 AM RAIL CREW MEMBER documented as of this encounter Progress Notes * Tracy Olivares MD - 10/05/2021 2:25 PM CST Patient called- no response. CREW MEMBER * Sadi Byrd - 10/05/2021 10:07 AM CST Patient called with concerns about having a scope done tomorrow with her sinus issues. Patient would like you to call her to discuss issue. CREW MEMBER documented in this encounter Plan of Treatment Upcoming Encounters Date Type Department Care Team (Late st Contact Info) Description 10/03/2024 11:00 AM RAIL CREW MEMBER Office Visit [facility] Medical Group Pulmonology Specialty Clinic - [address] [address] Nathan Baig MD [address] [place] [address] 11/14/2024 10:20 AM RAIL CREW MEMBER Office Visit [facility] Medical [facility] Multispecialty Care - [place] [address] [address] [place] [address] Tracy Olivares MD [facility] [address] [address] documented as of this encounter Visit Diagnoses Not on filedocumented in this encounter Additional Health Concerns Assessment Noted Time PHQ-9 Depression Total Score: 6 09/16/19 10:54 AM RAIL CREW MEMBER documented as of this encounter Care Teams Wet Mixer Relationship Specialty Start Date End Date Tracy Olivares MD [address] [place] [address] PCP - General INTERNAL MEDICINE 01/02/21 Nathan Baig MD [address] [address] Consulting Physician Internal Medicine Pulmonary Disease 09/16/21 documented as of this encounter
--- OUTSIDE RECORDS SUMMARY | 2024-09-07 15:20 | XMS_ITS | Encounter Summary ---
Author Organization [facility] - [facility] Address [address] [place] [address]. [place], [place] [address] [place] [address] Care Team Providers Care Remelt Furnace Expediter Name Role Phone Tracy Olivares MD Primary Care Provider Nathan Baig MD Unavailable [phone] Reason for Visit * Reason Onset Date Comments Follow Up Call 10/06/2021 Encounter Details Date Type Department Care Team (Late st Contact Info) Description 10/06/2021 Telephone [facility] Medical Group Multispecialty Care - [place] [address] [address] [place] [address] [place] [address] [place] [address] 157 [place] [address] Follow Up Call Social History [...] COVID-19? No / Unsure 09/25/2021 8:58 AM SWING FRAME GRINDER OPERATOR documented as of this encounter Progress Notes * Trayc Olivares MD - 10/06/2021 1:09 PM CST Called patient again today- no response- voicemail full and cannot leave message. G FRAME GRINDER OPERATOR documented in this encounter Plan of Treatment Upcoming Encounters Date Type Department Care Team (Late st Contact Info) Description 10/03/2024 11:00 AM SWING FRAME GRINDER OPERATOR Office Visit [facility] Medical [facility] Pulmonology Specialty Clinic - [address] [address] Nathan Baig MD [address] [address] 11/14/2024 10:20 AM SWING FRAME GRINDER OPERATOR Office Visit [facility] Multispecialty Care - [place] [address] [address] [place] [address] Tracy Olivares MD [address] [address] documented as of this encounter Visit Diagnoses Not on filedocumented in this encounter Additional Health Concerns Assessment Noted Time PHQ-9 Depression Total Score: 6 09/16/19 10:54 AM SWING FRAME GRINDER OPERATOR documented as of this encounter Care Teams Remelt Furnace Expediter Relationship Specialty Start Date End Date Tracy Olivares MD [address] [place] [address] PCP - General INTERNAL MEDICINE 01/02/21 Nathan Baig MD 3 [facility] [place] [address] [place] [address] Consulting Physician Internal Medicine Pulmonary Disease 09/16/21 documented as of this encounter
--- OUTSIDE RECORDS SUMMARY | 2024-09-07 15:20 | XMS_ITS | Encounter Summary ---
Author Organization [facility] Address [address] [place] [address]. [place], [place] [address] [place] [address] Care Team Providers Care Gas Meter Checker Name Role Phone Tracy Olivares MD Primary Care Provider [phone] Encounter Details Date Type Department Care Team [...] COVID-19? No / Unsure 08/17/2021 11:15 AM SHEARER PRINTED CIRCUIT BOARDS documented as of this encounter Plan of Treatment Upcoming Encounters Date Type Department Care Team (Late st Contact Info) Description 10/03/2024 11:00 AM SHEARER PRINTED CIRCUIT BOARDS Office Visit [facility] Medical Group Pulmonology Specialty Clinic - [address] [place] [address] Nathan Baig MD [address] [place] [address] 11/14/2024 10:20 AM SHEARER PRINTED CIRCUIT BOARDS Office Visit [facility] Medical Group Multispecialty Care - [place] [address] [address] [place] [address] Tracy Olivares MD [address] [place] [address] documented as of this encounter Visit Diagnoses Not on filedocumented in this encounter Additional Health Concerns Assessment Noted Time PHQ-9 Depression Total Score: 3 07/06/20 21 9:34 AM CDT documented as of this encounter Care Teams Gas Meter Checker Relationship Specialty Start Date End Date Tracy Olivares MD [address] [place] [address] PCP - General INTERNAL MEDICINE 01/02/21 documented as of this encounter
--- OUTSIDE RECORDS SUMMARY | 2024-09-07 15:20 | XMS_ITS | Encounter Summary ---
Author Organization [facility] Address [address] [place] [address]. [place], [place] [address] [place] [address] Care Team Providers Care Commercial Center Manager Name Role Phone Tracy Olivares MD Primary Care Provider [phone] Encounter Details Date Type Department Care Team [...] st Contact Info) Description 10/03/2024 11:00 AM AGRICULTURE SCIENTIST Office Visit [facility] Medical [facility] Pulmonology Specialty Clinic - [place] [address] [place] [address] Nathan Baig MD [address] [address] 11/14/2024 10:20 AM AGRICULTURE SCIENTIST Office Visit [facility] Medical Group Multispecialty Care - [place] [address] [address] [place] [address] [place] [address] [place] [address] documented as of this encounter Visit Diagnoses Not on filedocumented in this encounter Additional Health Concerns Assessment Noted Time PHQ-9 Depression Total Score: 9 04/14/20 10:21 AM CDT documented as of this encounter Care Teams Commercial Center Manager Relationship Specialty Start Date End Date Tracy Olivares MD [address] [place] [address] PCP - General INTERNAL MEDICINE 01/02/21 documented as of this encounter
--- OUTSIDE RECORDS SUMMARY | 2024-09-07 15:20 | XMS_ITS | Encounter Summary ---
Author Organization [facility] Address [address] [place] [address]. [place], [place] [address] [place] [address] Care Team Providers Care Farm Equipment Service Technician Name Role Phone Tracy Olivares MD Primary Care Provider [phone] Nathan Baig MD Unavailable [phone] Encounter Details Date Type Department Care Team (Late st Contact Info) Description 11/13/2021 Therapy Plan [facility] Outpatient Therapy [place], [place] [id number] Ly Collado, PT [place], [place] [id number] Social History Tobacco Use Types Packs/Day Years [...] Coronavirus/COVID-19? No / Unsure 10/23/2021 8:36 AM CONCRETE STONE FINISHING SUPERVISOR documented as of this encounter Progress Notes [...] from OPPT. Ly Collado, PT 3:42 PM RETE STONE FINISHING SUPERVISOR documented in this encounter Plan of Treatment Upcoming Encounters Date Type Department Care Team (Late st Contact Info) Description 10/03/2024 11:00 AM CONCRETE STONE FINISHING SUPERVISOR Office Visit [facility] Medical Group Pulmonology Specialty Clinic - [address] [address] Nathan Baig MD [address] [address] 11/14/2024 10:20 AM CONCRETE STONE FINISHING SUPERVISOR Office Visit [facility] Medical [facility] Multispecialty Care - [place] [address] [address] [place] [address] Tracy Olivares MD [address] [place] [address] documented as of this encounter Visit Diagnoses Not on filedocumented in this encounter Additional Health Concerns Assessment Noted Time PHQ-9 Depression Total Score: 6 09/16/19 10:54 AM CONCRETE STONE FINISHING SUPERVISOR documented as of this encounter Care Teams Farm Equipment Service Technician Relationship Specialty Start Date End Date Tracy Olivares MD [address] [place] [address] PCP - General INTERNAL MEDICINE 01/02/21 Nathan Baig MD [address] [address] Consulting Physician Internal Medicine Pulmonary Disease 09/16/21 documented as of this encounter
--- OUTSIDE RECORDS SUMMARY | 2024-09-07 15:20 | XMS_ITS | Encounter Summary ---
Author Organization [facility] Address [address] [place] [address]. [place] [address] [place] [address] Care Team Providers Care Stoneworker Name Role Phone Tracy Olivares MD Primary Care Provider [phone] Nathan Baig MD Unavailable [phone] Reason for Visit * Reason Comments Medicare Wellness Patient presents tomarvin cummins for her Annual Wellness Visit Encounter Details Date Type Department Care Team (Latest Contact Info) Description 09/16/2021 10:30 AM LABOR SERVICE REPRESENTATIVE Office Visit [facility] Medical Group Multispecialty Care - [place] [address] [place] [address] [address] [place] [address] [place] [address] [place] [address] 157 [place] [address] Medicare Wellness (Patient presents today for her [...] COVID-19? No / Unsure 09/16/2021 9:58 AM LABOR SERVICE REPRESENTATIVE documented as of this encounter Last Filed Vital Signs Vital Sign Reading Time Taken Comments Blood Pressure 130/78 09/16/2021 10:36 AM LABOR SERVICE REPRESENTATIVE Pulse 76 09/16/2021 10:36 AM LABOR SERVICE REPRESENTATIVE Temperature 36.7 ??C (98 ??F) 09/16/2021 10:36 AM LABOR SERVICE REPRESENTATIVE Respiratory Rate 18 09/16/2021 10:36 AM LABOR SERVICE REPRESENTATIVE Oxygen Saturation 98% 09/16/2021 10:36 AM LABOR SERVICE REPRESENTATIVE Inhaled Oxygen Concentration - - Weight 126.6 kg (279 lb) 09/16/2021 10:36 AM LABOR SERVICE REPRESENTATIVE Height 161.3 cm (5' 3.5 ) 09/16/2021 10:36 AM CS T Body Mass Index 48.65 09/16/2021 10:36 AM LABOR SERVICE REPRESENTATIVE documented in this encounter Patient Instructions * Patient Instructions* Alexandra Fernandez RN - 09/16/2021 10:30 AM LABOR SERVICE REPRESENTATIVE Images from the original note were not [...] Written by the doctors and editors at [facility] What are advance directives???--??Advance directives are [...] proxy (also called the durable power of real estate attorney for health care) - The health [...] process is complete. This topic retrieved from [employer] on: Sep 19, 2018. Topic 07299 Version 11.0 table 1: Resources that can help you make advance directives ?? Address Phone number Website [address] Toll-free: (168) [facility] [ ] http://assets.[facility].org/external_sites/ caregiving/multimedia/EG_AdvanceDirectives.html Aging with Dignity (Five Wishes form) [address] [place] [address] Toll-free: (643) 5WISHES [ ] www.agingwithdignity.org CaringInfo ?? Toll-free: www.caringinfo.org POLST National POLST Paradigm c/o [employer] [address] [place] [address] www.PrivacyCentral.org HEALTHY DIET INFORMATION With a heart healthy [...] and condiments. Pepper, herbs,spices, vinegar, lemon or eagle juices are great for seasoning. Sugar, cocoa [...] for help. Where can I learn more? [place] [employer] https://familydoctor.org/xbek-adu-ubfzakah-fmh-p-rnefggf-heart/ [place] http://www.heart.org/HEARTORG/HealthyLiving/HealthyEating/Nutrition/Vjmj-gfl-Cxr estyle-Recommendations_[facility]_[address]_Article.jsp#.Wxf_Q6oUmUk EMERGENCY SUPPLIES AND FIRST AID All homes [...] your heart beating faster. From pushing a boiler testing technician, to taking a dance class, to biking [...] ?? Hearing aids ? Use microphones to cotton picker operator sounds and tiny speakers to send louder [...] eardrum. Where can I learn more? National [place] [employer] Aging https://www.felecia.nih.gov/health/fiygxvf-dwec-kmlvmk-pojgqtg-vqkth-sbhhrv SLEEP PROBLEMS Guidelines for good sleep hygiene: [...] Read. ?? Keep up with world events. R SERVICE REPRESENTATIVE documented in this encounter Progress Notes * [...] patient discuss other antidepressant medications with Dr Oilvares. But, patient does not want to take [...] Living Will and Short Form Power of Manager Demand for Health Care forms from the [facility] Department of Public Health. Once completed [...] Tracy Olivares MD at 09/16/2021 12:06 PM LABOR SERVICE REPRESENTATIVE R SERVICE REPRESENTATIVE R SERVICE REPRESENTATIVE R SERVICE REPRESENTATIVE documented in this encounter Plan of Treatment Upcoming Encounters Date Type Department Care Team (Late st Contact Info) Description 10/03/2024 11:00 AM LABOR SERVICE REPRESENTATIVE Office Visit [facility] Medical Group Pulmonology Specialty Clinic - [address] [address] Nathan Baig MD [address] [address] 11/14/2024 10:20 AM LABOR SERVICE REPRESENTATIVE Office Visit [facility] Multispecialty Care - [place] [address] [address] [place] [address] Tracy Olivares MD [facility] [address] [address] documented as of this encounter Visit Diagnoses Diagnosis Routine general medical examination at a health care facility- Primary documented in this encounter Additional Health Concerns Assessment Noted Time PHQ-9 Depression Total Score: 6 09/16/19 10:54 AM LABOR SERVICE REPRESENTATIVE documented as of this encounter Care Teams Stoneworker Relationship Specialty Start Date End Date Tracy Olivares MD [address] [place] [address] PCP - General INTERNAL MEDICINE 01/02/21 Nathan Biag MD 3 [facility] [address] [address] Consulting Physician Internal Medicine Pulmonary Disease 09/16/21 documented as of this encounter
--- OUTSIDE RECORDS SUMMARY | 2024-09-07 15:20 | XMS_ITS | Encounter Summary ---
Author Organization [facility] Address [address] [place] [address]. [place] [id number] Care Team Providers Care Business Change Manager Name Role Phone Tracy Olivares MD Primary Care Provider [phone] Reason for Visit * Reason Onset Date Comments Results 08/25/2021 Encounter Details Date Type Department Care Team (Late st Contact Info) Description 08/25/2021 Telephone [facility] Medical Group Multispecialty Care - [place] [address] [address] [place] [address] Tracy Olivares MD [address] [place] [address] 157 [place] [address] Results Social History Tobacco Use [...] COVID-19? No / Unsure 08/17/2021 11:15 AM FUSELAGE FRAMER documented as of this encounter Progress Notes * Kriss Vilchis MA - 08/26/2021 9:16 AM CST Pt stated she has the endo scheduled for October 06. LAGE FRAMER * Tracy Olivares MD - 08/25/2021 6:52 PM CST Right upper quadrant abdominal ultrasound done on 08/25/2021 for epigastric abdominal pain unremarkable. Please call patient and encourage patient to follow-up with gastroenterology to have possible repeat endoscopy done. Tracy Olivares MD Internal Medicine [facility]. LAGE FRAMER documented in this encounter Plan of Treatment Upcoming Encounters Date Type Department Care Team (Late st Contact Info) Description 10/03/2024 11:00 AM FUSELAGE FRAMER Office Visit [facility] Pulmonology Specialty Clinic - [address] [address] Nathan Biag MD [address] [address] 11/14/2024 10:20 AM FUSELAGE FRAMER Office Visit [facility] Multispecialty Care - [place] [address] [address] [place] [address] Tracy Olivares MD [facility] [address] [address] documented as of this encounter Visit Diagnoses Not on filedocumented in this encounter Additional Health Concerns Assessment Noted Time PHQ-9 Depression Total Score: 3 07/06/20 21 9:34 AM CDT documented as of this encounter Care Teams Business Change Manager Relationship Specialty Start Date End Date Tracy Olivraes MD [address] [place] [address] PCP - General INTERNAL MEDICINE 01/02/21 documented as of this encounter
--- OUTSIDE RECORDS SUMMARY | 2024-09-07 15:20 | XMS_ITS | Encounter Summary ---
Author Organization [facility] Address [address] [place] [address]. [address] [address] Care Team Providers Care Payroll Manager Name Role Phone Tracy Olivares MD Primary Care Provider [phone] Reason for Visit * Reason Comments Joint Pain/Shoulder region Jnt Pain/Knee Back Pain * Physical Medicine (Routine) - Closed Specialty Diagnoses / Procedures Referred By Contac t Referred To Contact PHYSICAL THERAPY / [facility] Physical Therapy Diagnoses Chronic bilateral low back pain with bilateral sciatica Chronic left shoulder pain Chronic pain of right knee Trayc Olivares MD [address] [address] Phone: tel: fax: [facility] Physical Therapy [address] [address] Phone: tel: fax: Referral ID Status Reason Start Date Expiration Date V isits Requested Visits Authorized [id number] Closed Physical Therapy 07/06/2021 08/05/2022 10 10 Encounter Details Date Type Department Care Team (Latest Contact Info) Description 08/05/2021 8:45 AM CARETAKER RESORT Office Visit [facility] Physical Therapy [address] [address] Tracy Olivares MD [address] [address] Ly [place], [place] [address] Joint Pain/Shoulder region; Jnt Pain/Knee; Back Pain [...] COVID-19? 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 Subjective Note: patient relates she [...] and tight anterior hips Neuromuscular Re-education - 85585 Number of Minutes - 96442: 30 Intervention: posterior pelvic tilts Intervention: ab retrain and bracing with transverse abdominus activation Intervention: pelvic rocks at doorway Intervention: scapular retract seated Intervention: supine hip abductor stretch leg cross over Intervention: stand amd walk tall Intervention: diaphragmatic breathing in supine Intervention: hookling clam shells with pelvic tilt Other (Comments): done to address posture retrain to assist with increased lordosis Therapeutic Exercise - 93763 Number of Minutes - 99316: 15 Exercise: hip flexor stretch on back [...] 45 Timed Code Treatment Minutes : 45 TAKER RESORT documented in this encounter Plan of Treatment Upcoming Encounters Date Type Department Care Team (Late st Contact Info) Description 10/03/2024 11:00 AM CARETAKER RESORT Office Visit [facility] Medical Group Pul[facility]ology Specialty Clinic - [address] [address] Nathan Baig MD [address] [address] 11/14/2024 10:20 AM CARETAKER RESORT Office Visit [facility] Medical [facility] Multispecialty Care - [place] [address] [address] [place] [address] Tracy Olivares MD [facility] [address] documented as of this encounter Visit Diagnoses Diagnosis Back pain, chronic- Primary Backache, unspecified Shoulder pain Pain in joint, shoulder region Knee pain Pain in joint, lower leg documented in this encounter Additional Health Concerns Assessment Noted Time PHQ-9 Depression Total Score: 3 07/06/20 21 9:34 AM CDT documented as of this encounter Care Teams Payroll Manager Relationship Specialty Start Date End Date Tracy Olivares MD [address] [place] [address] PCP - General INTERNAL MEDICINE 01/02/21 documented as of this encounter
--- OUTSIDE RECORDS SUMMARY | 2024-09-07 15:20 | XMS_ITS | Encounter Summary ---
Author Organization [facility] Address [address] [place] [address]. [place], [place] [address] [place] [address] Care Team Providers Care Floor Service Worker Spring Name Role Phone Tracy Olivares MD Primary Care Provider Encounter Details Date Type Department Care Team (Late Contact Info) Description 07/09/2021 Orders Only [facility] Medical Group Multispecialty Care - [place] [address] [address] [place], [place] [id number] Tracy Olivares MD 1188 [facility] [address] [place] [address] Social History Tobacco Use Types Packs/Day Years [...] st Contact Info) Description 10/03/2024 11:00 AM LEAD MAINTENANCE TECHNICIAN Office Visit [facility] Medical Group Pulmonology Specialty Clinic - [place] [address] [facility] [address] [place] [address] Nathan Baig MD [address] [address] 11/14/2024 10:20 AM LEAD MAINTENANCE TECHNICIAN Office Visit [facility] Medical Group Multispecialty Care - [place] [address] [facility] [address] [place] [address] Tracy Olivares MD 1188 [facility] [address] [place], [place] [id number] documented as of this encounter Procedures Procedure [...] Result [facility] [address] [place] [address] * (ABNORMAL) COMPREHENSIVE METABOLIC PANEL (07/09/2021 9:24 AM CDT) GLUCOSE 110(H) 65 - 99 mg/dL [facility] Comment: ? Fasting reference interval For someone without known diabetes, a glucose value between 100 and 125 mg/dL is consistent with prediabetes and should be confirmed with a follow-up test. BUN 16 7 - 25 mg/dL [facility] CREATININE S/P/B 0.82 0.50 - 0.99 mg/dL [facility] Comment: For patients >49 years of age, the reference limit for Creatinine is approximately 13% higher for people identified as -Egyptian. EGFR NON-AFR. AMER. 75 > OR = 60 mL/min/1 .73m2 [facility] EGFR AFR. AMER. 87 > OR = 60 mL/min/1 .73m2 [facility] BUN CREATININE RATIO NOT APPLICABLE 6 - 22 (calc) [facility] SODIUM S/P/B 141 135 - 146 mmol/L [facility] POTASSIUM S/P/B 3.8 3.5 - 5.3 mmol/L [facility] CHLORIDE S/P/B 100 98 - 110 mmol/L [facility] CO2 33(H) 20 - 32 mmol/L [facility] CALCIUM S/P/B 9.2 8.6 - 10.4 mg/dL [facility] TOTAL PROTEIN S/P/B 6.5 6.1 - 8.1 g/dL [facility] ALBUMIN S/P/B 3.7 3.6 - 5.1 g/dL [facility] GLOBULIN 2.8 1.9 - 3.7 g/dL (calc) [facility] ALBUMIN/GLOBULIN RATIO 1.3 1.0 - 2.5 (calc) [facility] BILIRUBIN TOTAL S/P/B 0.6 0.2 - 1.2 mg/dL [facility] ALKALINE PHOSPHATASE S/P/B 123 37 - 153 U/L [facility] AST 15 10 - 35 U/L [facility] ALT 12 6 - 29 U/L [facility] 07/09/2021 9:24 AM CDT 07/09/2021 9:26 AM CDT Narrative [facility] - 07/10/2021 2:18 AM CDT FASTING:YES FASTING: YES Tracy Olivares MD LABORATORY Final Result [facility] [address] [address] [address] * LIPID PANEL (07/09/2021 9:24 AM CDT) [...] LDL-C. Buddy SS et al. PORTER. 2013;310(19): 6335-8089 (http://education.Gamida Cell/faq/HZN048) CHOL/HDL RATIO 2.5 <5.0 (calc) [facility] [...] Result [facility] [address] [place] [address] documented in this encounter Visit Diagnoses Not on filedocumented in this encounter Additional Health Concerns Assessment Noted Time PHQ-9 Depression Total Score: 3 07/06/20 21 9:34 AM CDT documented as of this encounter Care Teams Floor Service Worker Spring Relationship Specialty Start Date End Date Tracy Olivares MD 1188 [facility] [address] [place] [address] PCP - General INTERNAL MEDICINE 01/02/21 documented as of this encounter
--- OUTSIDE RECORDS SUMMARY | 2024-09-07 15:20 | XMS_ITS | Encounter Summary ---
Author Organization [facility] Address [address] [place] [address]. 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 No / Unsure 09/10/2021 9:35 AM CERTIFIED NUCLEAR MEDICINE TECHNOLOGIST documented as of this encounter Last Filed Vital Signs Vital Sign Reading Time Taken Comments Blood Pressure 120/69 09/10/2021 9:48 AM CERTIFIED NUCLEAR MEDICINE TECHNOLOGIST Pulse 92 09/10/2021 9:48 AM CERTIFIED NUCLEAR MEDICINE TECHNOLOGIST Temperature 36.6 ??C (97.8 ??F) 09/10/2021 9:48 AM CS T Respiratory Rate 17 09/10/2021 9:48 AM CERTIFIED NUCLEAR MEDICINE TECHNOLOGIST Oxygen Saturation 99% 09/10/2021 9:48 AM CERTIFIED NUCLEAR MEDICINE TECHNOLOGIST Inhaled Oxygen Concentration - - Weight 129.7 kg (286 lb) 09/10/2021 9:48 AM CERTIFIED NUCLEAR MEDICINE TECHNOLOGIST Height 161.3 cm (5' 3.5 ) 09/10/2021 9:48 AM CERTIFIED NUCLEAR MEDICINE TECHNOLOGIST Body Mass Index 49.87 09/10/2021 9:48 AM CERTIFIED NUCLEAR MEDICINE TECHNOLOGIST documented in this encounter Patient Instructions * Patient Instructions* Tracy Olivares MD - 09/10/2021 9:40 AM CERTIFIED NUCLEAR MEDICINE TECHNOLOGIST Follow up in 4 weeks. Stop the metformin. Start using your Ozempic pen. IFIED NUCLEAR MEDICINE TECHNOLOGIST documented in this encounter Progress Notes * [...] was at least in part performed using Space Pencil and there may be some inherent flaws in this supervisor [employer] due to the nature of this program. Tracy Olivares MD Internal Medicine [facility], [facility]. IFIED NUCLEAR MEDICINE TECHNOLOGIST documented in this encounter Plan of Treatment Upcoming Encounters Date Type Department Care Team (Late st Contact Info) Description 10/03/2024 11:00 AM CERTIFIED NUCLEAR MEDICINE TECHNOLOGIST Office Visit [facility] Medical Group Pulmonology Specialty Clinic - [address] [address] Nathan Baig MD [address] [address] 11/14/2024 10:20 AM CERTIFIED NUCLEAR MEDICINE TECHNOLOGIST Office Visit [facility] Medical Group Multispecialty Care - [place] [address] [address] [place] [address] Tracy Olivares MD [address] [place] [address] 157 [place] [address] documented as of this encounter Visit Diagnoses Diagnosis Gastroesophageal reflux disease without esophagitis- Primary Esophageal reflux Constipation, unspecified constipation type RLS (restless legs syndrome) Restless legs syndrome (RLS) Prediabetes Other abnormal glucose documented in this encounter Additional Health Concerns Assessment Noted Time PHQ-9 Depression Total Score: 3 07/06/20 21 9:34 AM CDT documented as of this encounter Care Teams Automatic Dry Starch Operator Relationship Specialty Start Date End Date Tracy Olivares MD [address] [address] PCP - General INTERNAL MEDICINE 01/02/21 documented as of this encounter
--- OUTSIDE RECORDS SUMMARY | 2024-09-07 15:20 | XMS_ITS | Encounter Summary ---
Author Organization [facility] Address [address] [place] [address]. [place], [place] [address] [place] [address] Care Team Providers Care Tentmaker Name Role Phone Tracy Olivares MD Primary Care Provider [phone] Nathan Baig MD Unavailable [phone] Encounter Details Date Type Department Care [...] Coronavirus/COVID-19? No / Unsure 10/23/2021 8:36 AM QUANTOMETER OPERATOR documented as of this encounter Plan of Treatment Upcoming Encounters Date Type Department Care Team (Late st Contact Info) Description 10/03/2024 11:00 AM QUANTOMETER OPERATOR Office Visit [facility] Medical [facility] Pulmonology Specialty Clinic - [address] [place] [address] Nathan Baig MD 3 [facility] [address] [place] [address] 11/14/2024 10:20 AM QUANTOMETER OPERATOR Office Visit [facility] Medical Group Multispecialty Care - [place] [address] [address] [place] [address] Tracy Olivares MD [address] [place] [address] documented as of this encounter Visit Diagnoses Not on filedocumented in this encounter Additional Health Concerns Assessment Noted Time PHQ-9 Depression Total Score: 6 09/16/19 10:54 AM QUANTOMETER OPERATOR documented as of this encounter Care Teams Tentmaker Relationship Specialty Start Date End Date Tracy Olivares MD [address] [place] [address] PCP - General INTERNAL MEDICINE 01/02/21 Nathan Baig MD 3 [facility] [address] [place] [address] Consulting Physician Internal Medicine Pulmonary Disease 09/16/21 documented as of this encounter
--- OUTSIDE RECORDS SUMMARY | 2024-09-07 15:20 | XMS_ITS | Encounter Summary ---
Author Organization [facility] Address [address] [place] [address]. [place], [place] [address] [place] [address] Care Team Providers Care Service Vehicle Operator Name Role Phone Tracy Olivares MD Primary Care Provider [phone] Reason for Visit * Reason Comments Sleep Study (SCAN) Encounter Details Date Type Department Care Team ([facility] Contact Info) Description 05/22/2021 Scan HEALTH INFO [...] [place] Contact Info) Description 10/03/2024 11:00 AM HEAD MACHINIST Office Visit [facility] Medical Group Pulmonology Specialty Clinic - [address] [place], [place] [address] Nathan Baig MD 3 [facility] [address] [place] [address] 11/14/2024 10:20 AM HEAD MACHINIST Office Visit [facility] Medical Group Multispecialty Care - [place] [address] [address] [place] [address] Tracy Olivares MD [facility] [address] [address] documented as of this encounter Procedures Procedure [...] documented as of this encounter Care Teams Service Vehicle Operator Relationship Specialty Start Date End Date Tracy Olivares MD [address] [place] [address] PCP - General INTERNAL MEDICINE 01/02/21 documented as of this encounter
--- OUTSIDE RECORDS SUMMARY | 2024-09-07 15:20 | XMS_ITS | Encounter Summary ---
Author Organization [facility] Address [address] [place] [address]. [place] [id number] [place] [address] Care Team Providers Care Inspector Health Care Facilities Name Role Phone Tracy Olivares MD Primary Care Provider [phone] Nathan Baig MD Unavailable [phone] Reason for Visit * Reason Comments Allied Health Visit Encounter Details Date Type Department Care Team (Latest Contact Info) Description 09/25/2021 9:15 AM SAND MILL GRINDER Allied Health/Nurse Visit [facility] Medical Group Multispecialty Care - [place] [address] [address] [place] [address] Tracy Olivares MD [address] [place] [address] 157 [place] [address] Allied Health Visit Social History [...] COVID-19? No / Unsure 09/25/2021 8:58 AM SAND MILL GRINDER documented as of this encounter Patient Instructions * Patient Instructions* Tracy Olivares MD - 09/25/2021 9:15 AM SAND MILL GRINDER How to use your Sermaglutide pen 1. [...] need help please call the helpline on [phone]. MILL GRINDER documented in this encounter Progress Notes * Parul Francisco MA - 09/25/2021 9:15 AM CSTAddended by: PARUL FRANCISCO on: 10/06/2021 03:50 PM Modules accepted: Level of Service MILL GRINDER documented in this encounter Plan of Treatment Upcoming Encounters Date Type Department Care Team (Late st Contact Info) Description 10/03/2024 11:00 AM SAND MILL GRINDER Office Visit [facility] Medical Group Pulmonology Specialty Clinic - [address] [place] [address] Nathan Baig MD 3 [place] [address] [place] [address] 11/14/2024 10:20 AM SAND MILL GRINDER Office Visit [facility] Medical Group Multispecialty Care - [address] [place] [address] Tracy Olivares MD 1188 [facility] 157 [place] [address] documented as of this encounter Visit Diagnoses Diagnosis Prediabetes- Primary Other abnormal glucose documented in this encounter Additional Health Concerns Assessment Noted Time PHQ-9 Depression Total Score: 6 09/16/19 10:54 AM SAND MILL GRINDER documented as of this encounter Care Teams Inspector Health Care Facilities Relationship Specialty [place] [address] [place] [address] 157 [place] [address] PCP - General INTERNAL MEDICINE 01/02/21 Nathan Baig MD [address] [address] Consulting Physician Internal Medicine Pulmonary Disease 09/16/21 documented as of this encounter
--- OUTSIDE RECORDS SUMMARY | 2024-09-07 15:20 | XMS_ITS | Encounter Summary ---
Author Organization [facility] Address [address] [place] [address]. [place], [place] [address] [place] [address] Care Team Providers Care Statistical Secretary Name Role Phone Tracy Olivares MD Primary Care Provider [phone] Encounter Details Date Type Department Care Team (Late Contact Info) Description 05/08/2021 Hosp Visit [facility] Physical Therapy [address] [address] Darlene Rodgers, PT Social History [...] st Contact Info) Description 10/03/2024 11:00 AM SHACTOR HELPER Office Visit [facility] Medical Group Pulmonology Specialty Clinic - [place] 1188 [facility] [address] [address] Nathan Baig MD [address] [address] 11/14/2024 10:20 AM SHACTOR HELPER Office Visit [facility] Medical Group Multispecialty Care - [place] [address] [address] [place] [address] Tracy Olivares MD [address] [place] [address] documented as of this encounter Visit Diagnoses Not on filedocumented in this encounter Additional Health Concerns Assessment Noted Time PHQ-9 Depression Total Score: 9 04/14/20 10:21 AM CDT documented as of this encounter Care Teams Statistical Secretary Relationship Specialty Start Date End Date Tracy Olivares MD [address] [place] [address] PCP - General INTERNAL MEDICINE 01/02/21 documented as of this encounter
--- OUTSIDE RECORDS SUMMARY | 2024-09-07 15:20 | XMS_ITS | Encounter Summary ---
Author Organization [facility] Address [address] [place] [address]. [place], [place] [address] [place] [address] Care Team Providers Care Supervisor Prop Making Name Role Phone Tracy Olivares MD Primary Care Provider [phone] Encounter Details Date Type Department Care Team [...] COVID-19? No / Unsure 09/01/2021 8:51 AM ACCOUNT SERVICES ASSOCIATE documented as of this encounter Plan of Treatment Upcoming Encounters Date Type Department Care Team (Late st Contact Info) Description 10/03/2024 11:00 AM ACCOUNT SERVICES ASSOCIATE Office Visit [facility] Medical Group Pulmonology Specialty Clinic - [address] [place] [address] Nathan Baig MD [address] [place] [address] 11/14/2024 10:20 AM ACCOUNT SERVICES ASSOCIATE Office Visit [facility] Medical Group Multispecialty Care - [place] [address] [address] [place] [address] Tracy Olivares MD [address] [place] [address] documented as of this encounter Visit Diagnoses Not on filedocumented in this encounter Additional Health Concerns Assessment Noted Time PHQ-9 Depression Total Score: 3 07/06/20 21 9:34 AM CDT documented as of this encounter Care Teams Supervisor Prop Making Relationship Specialty Start Date End Date Tracy Olivares MD [address] [place] [address] PCP - General INTERNAL MEDICINE 01/02/21 documented as of this encounter
--- OUTSIDE RECORDS SUMMARY | 2024-09-07 15:20 | XMS_ITS | Encounter Summary ---
Author Organization [facility] Address [address] [place] [address]. [address] [address] Care Team Providers Care Stack Attendant Name Role Phone Tracy Olivares MD Primary Care Provider [phone] Reason for Referral * Imaging (Routine) - Closed Specialty Diagnoses / Procedures Referred By Heidi t Referred To Contact RADIOLOGY Diagnoses Abnormal mammogram Procedures US BREAST RT BIRAD LTD Tracy Olivares MD [address] [address] Phone: tel: fax: [facility] [address] [place] [address] [place] [address] Phone: tel: fax: Referral ID Status Reason Start Date Expiration Date Visits Re quested Visits Authorized [id number] Closed 09/15/2021 10/16/2022 100 100 ANALYST * Imaging (Routine) - Closed Specialty Diagnoses / Procedures Referred By Contoziel t Referred To Contact RADIOLOGY Diagnoses Abnormal mammogram Procedures MG DIAGNOSTIC RT DIGI Tracy Olivares MD [address] [address] Phone: tel: fax: [facility] [address] [place] [address] [place] [address] Phone: tel: fax: Referral ID Status Reason Start Date Expiration Date Visits Re quested Visits Authorized [id number] Closed 09/15/2021 10/16/2022 100 100 ANALYST Reason for Visit * Reason Onset Date Comments Results 09/15/2021 Encounter Details Date Type Department Care Team (Late st Contact Info) Description 09/15/2021 Telephone [facility] Medical Group Multispecialty Care - [place] 1188 [facility] 157 [address] [place] [address] Tracy Olivares MD 1188 [facility] [address] [place] [address] Results Social History Tobacco Use Types Packs/Day [...] COVID-19? No / Unsure 09/10/2021 9:35 AM TAX ANALYST documented as of this encounter Progress Notes [...] of the right breast. Faxing over to [facility]. Scanned. Tracy Olivares MD Internal Medicine [facility]. ANALYST documented in this encounter Plan of Treatment Upcoming Encounters Date Type Department Care Team (Late st Contact Info) Description 10/03/2024 11:00 AM TAX ANALYST Office Visit [facility] Pulmonology Specialty Clinic - [address] [address] Nathan Baig MD [address] [place] [address] 11/14/2024 10:20 AM TAX ANALYST Office Visit [facility] Multispecialty Care - [place] [address] [address] [place] [address] Tracy Olivares MD [address] [address] Scheduled Orders Name Type Priority Associated Diagnoses [...] documented as of this encounter Care Teams Stack Attendant Relationship Specialty Start Date End Date Tracy Olivares MD [address] [place] [address] PCP - General INTERNAL MEDICINE 01/02/21 documented as of this encounter
--- OUTSIDE RECORDS SUMMARY | 2024-09-07 15:20 | XMS_ITS | Encounter Summary ---
Author Organization [facility] Address [address] [place] [address]. [place], [place] [address] [place] [address] Care Team Providers Care Splitter Tender Name Role Phone Tracy Olivares MD Primary Care Provider [phone] Nathan Baig MD Unavailable [phone] Encounter Details Date Type Department Care [...] COVID-19? No / Unsure 10/08/2021 9:29 AM ADJUNCT PSYCHOLOGY FACULTY MEMBER documented as of this encounter Plan of Treatment Upcoming Encounters Date Type Department Care Team (Late st Contact Info) Description 10/03/2024 11:00 AM ADJUNCT PSYCHOLOGY FACULTY MEMBER Office Visit [facility] Pulmonology Specialty Clinic - [address] [place] [address] Nathan Baig MD [address] [facility] [address] [place] [address] 11/14/2024 10:20 AM ADJUNCT PSYCHOLOGY FACULTY MEMBER Office Visit [facility] Medical [facility] Multispecialty Care - [place] [address] [address] [place] [address] Tracy Olivares MD [address] [place] [address] documented as of this encounter Visit Diagnoses Not on filedocumented in this encounter Additional Health Concerns Assessment Noted Time PHQ-9 Depression Total Score: 6 09/16/19 10:54 AM ADJUNCT PSYCHOLOGY FACULTY MEMBER documented as of this encounter Care Teams Splitter Tender Relationship Specialty Start Date End Date Tracy Olivares MD [address] [place] [address] PCP - General INTERNAL MEDICINE 01/02/21 Nathan Baig MD 3 [facility] [address] [place] [address] Consulting Physician Internal Medicine Pulmonary Disease 09/16/21 documented as of this encounter
--- OUTSIDE RECORDS SUMMARY | 2024-09-07 15:20 | XMS_ITS | Encounter Summary ---
Author Organization [facility] Address [address] [place] [address]. [place], [place] [address] [place] [address] Care Team Providers Care Physiotherapy Practice Manager Name Role Phone Tracy Olivares MD Primary Care Provider [phone] Reason for Visit * Reason Onset Date Comments Orders 05/22/2021 Encounter Details Date Type Department Care Team (Late st Contact Info) Description 05/22/2021 Telephone [facility] Medical Group Multispecialty Care - [facility] [address] [place] [address] Nathan Baig MD 3 [facility] [address] [place] [address] Orders Social History Tobacco Use Types Packs/Day [...] CDT Order sent to IV * Lynette Pnik MA - 05/22/2021 9:53 AM CDT ----- [...] st Contact Info) Description 10/03/2024 11:00 AM JOINT MAKER MACHINE Office Visit [facility] Medical [facility] Pulmonology Specialty Clinic - [address] [address] Nathan Baig MD [address] [place] [address] 11/14/2024 10:20 AM JOINT MAKER MACHINE Office Visit [facility] Medical Group Multispecialty Care - [place] [address] [address] [place] [address] Tracy Olivares MD [address] [place] [address] documented as of this encounter Visit Diagnoses Not on filedocumented in this encounter Additional Health Concerns Assessment Noted Time PHQ-9 Depression Total Score: 0 05/22/20 21 9:15 AM CDT documented as of this encounter Care Teams Physiotherapy Practice Manager Relationship Specialty Start Date End Date Tracy Olivares MD [address] [address] PCP - General INTERNAL MEDICINE 01/02/21 documented as of this encounter
--- OUTSIDE RECORDS SUMMARY | 2024-09-07 15:20 | XMS_ITS | Encounter Summary ---
Author Organization [facility] Address [address] [place] [address]. [place] [id number] Care Team Providers Care Tariff Compiling Clerk Name Role Phone Tracy Olivares MD Primary Care Provider [phone] Reason for Visit * Reason Onset Date Comments Appointment Request 08/05/2021 AWV- Unable to leave message Encounter Details Date Type Department Care Team (Late st Contact Info) Description 08/05/2021 Telephone [facility] Medical Group Multispecialty Care - [address] [place] [address] Tracy Olivares MD [address] [place] [address] [address] [place], [place] [phone] Appointment Request (AWV- Unable to leave message) [...] COVID-19? No / Unsure 08/05/2021 8:38 AM SPRAY DRIER documented as of this encounter Progress Notes * Alexandra Waggoner RN - 08/05/2021 9:09 AM CST Telephone call placed to patient in an attempt to schedule Annual Wellness Visit. There was no answer. Nurse was unable to leave a message as patient's voicemail box is full. Y DRIER documented in this encounter Plan of Treatment Upcoming Encounters Date Type Department Care Team (Late st Contact Info) Description 10/03/2024 11:00 AM SPRAY DRIER Office Visit [facility] Medical [facility] Pulmonology Specialty Clinic - [address] [address] Nathan Baig MD [address] [place] [address] 11/14/2024 10:20 AM SPRAY DRIER Office Visit [facility] Multispecialty Care - [place] [address] [address] [place] [address] Tracy Olivares MD [facility] [address] [address] documented as of this encounter Visit Diagnoses Not on filedocumented in this encounter Additional Health Concerns Assessment Noted Time PHQ-9 Depression Total Score: 3 07/06/20 21 9:34 AM CDT documented as of this encounter Care Teams Tariff Compiling Clerk Relationship Specialty Start Date End Date Tracy Olivares MD [address] [place] [id number] PCP - General INTERNAL MEDICINE 01/02/21 documented as of this encounter
--- OUTSIDE RECORDS SUMMARY | 2024-09-07 15:20 | XMS_ITS | Encounter Summary ---
Author Organization [facility] Address [address] [place] [address]. [place], [place] [address] [place] [address] Care Team Providers Care Assistant Program Director Name Role Phone Tracy Olivares MD Primary Care Provider [phone] Encounter Details Date Type Department Care Team [...] COVID-19? No / Unsure 08/05/2021 8:38 AM SLAB LIFTING ENGINEER documented as of this encounter Plan of Treatment Upcoming Encounters Date Type Department Care Team (Late st Contact Info) Description 10/03/2024 11:00 AM SLAB LIFTING ENGINEER Office Visit [facility] Pulmonology Specialty Clinic - [address] [place] [address] Nathan Baig MD [address] [place] [address] 11/14/2024 10:20 AM SLAB LIFTING ENGINEER Office Visit [facility] Medical Group Multispecialty Care - [place] [address] [address] [place] [address] Tracy Olivares MD [address] [place] [address] documented as of this encounter Visit Diagnoses Not on filedocumented in this encounter Additional Health Concerns Assessment Noted Time PHQ-9 Depression Total Score: 3 07/06/20 21 9:34 AM CDT documented as of this encounter Care Teams Assistant Program Director Relationship Specialty Start Date End Date Tracy Olivares MD [address] [place] [address] PCP - General INTERNAL MEDICINE 01/02/21 documented as of this encounter
--- OUTSIDE RECORDS SUMMARY | 2024-09-07 15:20 | XMS_ITS | Encounter Summary ---
Author Organization [facility] Address [address] [place] [address]. [address] [address] Care Team Providers Care Outer Diameter Grinder Tool Name Role Phone Tracy Olivares MD Primary Care Provider [phone] Reason for Visit * Reason Onset Date Comments Other 07/09/2021 Encounter Details Date Type Department Care Team (Late st Contact Info) Description 07/09/2021 Telephone [facility] Medical Group Multispecialty Care - [place] [address] [address] [place] [address] [place] [address] [place] [address] 157 [place] [address] Other Social History Tobacco Use [...] questions answered. Tracy Olivares MD Internal Medicine [facility] Medical Group, [facility]. * Tracy Olivares MD - 07/09/2021 1:33 [...] with no relief [facility] [place] [phone] documented in this encounter Plan of Treatment Upcoming Encounters Date Type Department Care Team (Late st Contact Info) Description 10/03/2024 11:00 AM OPTHALMIC TECH Office Visit [facility] Medical [facility] Pulmonology Specialty Clinic - [address] [address] Nathan Baig MD [address] [place] [address] 11/14/2024 10:20 AM OPTHALMIC TECH Office Visit [facility] Multispecialty Care - [place] [address] [address] [place] [address] Tracy Olivares MD [address] [place] [address] documented as of this encounter Visit Diagnoses Diagnosis Pruritus- Primary Unspecified pruritic disorder documented in this encounter Additional Health Concerns Assessment Noted Time PHQ-9 Depression Total Score: 3 07/06/20 21 9:34 AM CDT documented as of this encounter Care Teams Outer Diameter Grinder Tool Relationship Specialty Start Date End Date Tracy Olivares MD [address] [place] [address] PCP - General INTERNAL MEDICINE 01/02/21 documented as of this encounter
--- OUTSIDE RECORDS SUMMARY | 2024-09-07 15:20 | XMS_ITS | Encounter Summary ---
Author Organization [facility] Address [address] [place] [address]. [place] [id number] Care Team Providers Care Care Manager Name Role Phone Tracy Olivares MD Primary Care Provider [phone] Reason for Visit * Reason Onset Date Comments Results 08/25/2021 Encounter Details Date Type Department Care Team (Late st Contact Info) Description 08/25/2021 Telephone [facility] Medical Group Multispecialty Care - [place] [address] [address] [place] [address] Tracy Olivares MD [address] [place] [address] 157 [place] [address] Results Social History Tobacco Use [...] COVID-19? No / Unsure 08/17/2021 11:15 AM DIALS INSPECTOR documented as of this encounter Progress Notes * Kriss Vilchis MA - 08/26/2021 9:31 AM CST Pt informed. S INSPECTOR * Tracy Olivares MD - 08/25/2021 6:47 PM CST I received a mammogram report done on 08/25/2021. Results shows right breast asymmetry which may represent patient's baseline however no old mammograms for comparison. Scanned. Please call patient and update. We will plan to repeat patient's mammogram in 1 year for comparison. Thanks, Tracy Olivares MD Internal Medicine [facility]. S INSPECTOR documented in this encounter Plan of Treatment Upcoming Encounters Date Type Department Care Team (Late st Contact Info) Description 10/03/2024 11:00 AM DIALS INSPECTOR Office Visit [facility] Pulmonology Specialty Clinic - [address] [address] Nathan Baig MD [address] [place] [address] 11/14/2024 10:20 AM DIALS INSPECTOR Office Visit [facility] Multispecialty Care - [place] [address] [address] [place] [address] Tracy Olivares MD [address] [place] [address] documented as of this encounter Visit Diagnoses Not on filedocumented in this encounter Additional Health Concerns Assessment Noted Time PHQ-9 Depression Total Score: 3 07/06/20 21 9:34 AM CDT documented as of this encounter Care Teams Care Manager Relationship Specialty Start Date End Date Tracy Olivares MD [address] [place] [address] PCP - General INTERNAL MEDICINE 01/02/21 documented as of this encounter
--- OUTSIDE RECORDS SUMMARY | 2024-09-07 15:20 | XMS_ITS | Encounter Summary ---
Author Organization [facility] Address [address] [place] [address]. [place] [address] Care Team Providers Care Paper Coater Name Role Phone Tracy Olivares MD Primary Care Provider [phone] Reason for Referral * Imaging (Routine) - Closed Specialty Diagnoses / Procedures Referred By Contac t Referred To Contact RADIOLOGY Diagnoses Encounter for screening mammogram for malignant neoplasm of breast Procedures MG SCREENING W SHRUTI LUCINA DIGI Tracy Olivares MD [address] [address] Phone: tel: fax: [address] [place] [address] Phone: tel: fax: Referral ID Status Reason Start Date Expiration Date Visits Re quested Visits Authorized [id number] Closed 07/06/2021 08/06/2022 1 1 * Physical Medicine (Routine) - Closed Specialty Diagnoses / Procedures Referred By Contac t Referred To Contact PHYSICAL THERAPY / [facility] Physical Therapy Diagnoses Chronic bilateral low back pain with bilateral sciatica Chronic left shoulder pain Chronic pain of right knee Tracy Olivares MD [address] [address] Phone: tel: fax: [facility] Physical Therapy [address] [place] [address] Phone: tel: fax: Referral ID Status Reason Start Date Expiration Date V isits Requested Visits Authorized [id number] Closed Physical Therapy 07/06/2021 08/05/2022 10 10 Reason for Visit * Reason Comments Follow Up 6 month f/u. C/o of constipation lately and feeling generrally unwell. Encounter Details Date Type Department Care Team (Latest Contact Info) Description 07/06/2021 8:40 AM CDT Office Visit [facility] Medical Group Multispecialty Care - [place] [address] [address] [place] [address] Tracy Olivares MD [address] [place] [address] Follow Up (6 month f/u. C/o of [...] about this. Where can I learn more? [place] [employer] https://familydoctor.org/lcwct-ksy-ir-sdfdx-dmab-ojjk/ NHS https://www.nhs.uk/conditions/falls/prevention/ Last Reviewed Date 2021-02-16 Consumer [...] right for you. Copyright Copyright ?? 2020 [employer]. and its affiliates and/or licensors. All rights [...] doctor may have you work with a operational trainer, chiropractor or physical therapist to make [...] your doctor. Where can I learn more? [place] [employer] https://orthoinfo.org/en/recovery/xeemf-esjthqafaqmm-bwxslsn/spine-conditioning- program-pdf Last Reviewed Date 2020-11-27 Consumer Information [...] right for you. Copyright Copyright ?? 2020 [employer]. and its affiliates and/or licensors. All rights [...] itchiness of eyes at the moment. Uses dbvs-unn-fipquaz antihistamines to help with symptoms. ?? COPD: [...] had an EGD done in 2018 at [facility]. Currently on omeprazole daily. Denies any melena [...] MiraLAX which has not helped significantly. Notes jcde-dsf-cdevbww magnesium has been helping. She is interested [...] Moderate episode of recurrent major depressive disorder ([facility]) F33.1 296.32 RECURRENT MAJOR DEPRESSIVE EPISODES, MODERATE escitalopram 10 MG tablet 7. Pulmonary emphysema, unspecified emphysema type ([facility]) J43.9 492.8 PULMONARY EMPHYSEMA TRELEGY 100-62.5-25 MCG/INH [...] (BMI) of 45.0 to 49.9 in adult ([facility]) E66.01 278.01 SEVERE OBESITY phentermine 37.5 MG [...] 7, WITH CONFIRMATION, (U) 22. Need for eogrkfojoz-tognplx-burjwrkze (Tdap) vaccine Z23 V06.1 REQUIRES DIPHTHERIA, TETANUS ANDPERTUSSIS VACCINATION [74343] Adacel (Tdap) 23. Low back pain due [...] the free smart phone apps such as AdTrib to help track calories and try to [...] 7, WITH CONFIRMATION, (U) 21. Need for zyngtazkqe-achuvve-afzaodyyr (Tdap) vaccine - [34623] Adacel (Tdap) Counseling given: Yes Comment: by [...] was at least in part performed using [employer] and there may be some inherent flaws in this hvac sheet metal installer helper due to the nature of this program. Tracy Olivares MD Internal Medicine [facility], [facility]. STANCE SPECIALIST documented in this encounter Plan of Treatment Upcoming Encounters Date Type Department Care Team (Late st Contact Info) Description 10/03/2024 11:00 AM ASSISTANCE SPECIALIST Office Visit [facility] Medical Group Pulmonology Specialty Clinic - [address] [address] Nathan Baig MD [address] [place] [address] 11/14/2024 10:20 AM ASSISTANCE SPECIALIST Office Visit [facility] Medical Group Multispecialty Care - [place] [address] [address] [place] [address] Tracy Olivares MD [address] [place] [address], [place] [address] Scheduled Orders Name Type Priority Associated Diagnoses [...] METABOLITES (U) NEGATIVE <500 ng/mL [facility] AMPHETAMINES PM NEGATIVE <500 ng/mL [facility] BARBITURATES PM (U) NEGATIVE <300 ng/mL [facility] BENZODIAZEPINES PM (U) NEGATIVE <100 ng/mL [facility] COCAINE METABOLITE PM (U) NEGATIVE <150 ng/mL [facility] MORPHINE (U) NEGATIVE <10 ng/mL [facility] MARIJUANA METABOLITE PM (U) NEGATIVE <20 ng/mL [facility] METHADONE PM (U) NEGATIVE <100 ng/mL [facility] OPIATES PM (U) NEGATIVE <100 ng/mL [facility] OXYCODONE PM (U) NEGATIVE <100 ng/mL [facility] CREATININE RANDOM URINE 102.9 > or = 20.0 mg/dL [facility] pH PM (U) 5.6 4.5 - 9.0 [facility] OXIDANT NEGATIVE <200 mcg/mL [facility] Note [facility] Comment: This drug testing is for medical treatment only. Analysis was performed as non-forensic testing and these results should be used only by healthcare providers to render diagnosis or treatment, or to monitor progress of medical conditions. LDT Notes: Confirmation tests were developed and their analytical performance characteristics have been determined by [employer]. It has not been cleared or approved by the FDA. This assay has been validated pursuant to the CLIA regulations and is used for clinical purposes. Healthcare Providers needing Interpretation assistance, please contact us at [phone] ( ) M-F, 8am to 10pm EST 07/06/2021 9:45 AM CDT 07/07/2021 5:18 AM CDT Tracy Olivares MD LABORATORY Final Result [facility] [address] [place] [address] [facility] [address] [place] [address] * A1C (BACK OFFICE) (07/06/2021) HGB A1C 5.9 % MG[address], [place] 07/06/2021 Tracy Olivares MD LABORATORY Final Result MG-[address], [facility] [address] [place] [address], documented in this encounter Visit Diagnoses Diagnosis Essential hypertension- Primary Unspecified essential hypertension Prediabetes Other abnormal glucose FAISAL on CPAP Obstructive sleep apnea (adult) (pediatric) Class 3 severe obesity due to excess calories without serious comorbidity with body mass index (BMI) of 50.0 to 59.9 in adult ([facility]) Gastroesophageal reflux disease without esophagitis Esophageal reflux Moderate episode of recurrent major depressive disorder ([facility]) Pulmonary emphysema, unspecified emphysema type ([facility]) Chronic bilateral low back [...] (BMI) of 45.0 to 49.9 in adult ([facility]) Chronic pain of right knee Encounter for screening mammogram for malignant neoplasm of breast Other screening mammogram Drug therapy Encounter for long-term (current) use of other medications Need for ffmiojfnzv-gbylgqf-fiuabgxrp (Tdap) vaccine Need for prophylactic vaccination with combined mfkcccblze-ozztfkz-akwfusvbx (DTP) vaccine Low back pain due to bilateral sciatica documented in this encounter Additional Health Concerns Assessment Noted Time PHQ-9 Depression Total Score: 3 07/06/20 21 9:34 AM CDT documented as of this encounter Care Teams Paper Coater Relationship Specialty Start Date End Date Tracy Olivares MD [address] [address] PCP - General INTERNAL MEDICINE 01/02/21 documented as of this encounter
--- OUTSIDE RECORDS SUMMARY | 2024-09-07 15:20 | XMS_ITS | Encounter Summary ---
Author Organization [facility] Address [address] [place] [address]. [place], [place] [address] [place] [address] Care Team Providers Care Drilling Supervisor Name Role Phone Tracy Olivares MD Primary Care Provider [phone] Nathan Baig MD Unavailable [phone] Reason for Visit * Reason Onset Date Comments Lab Results 01/08/2022 Encounter Details Date Type Department Care Team (Late st Contact Info) Description 01/08/2022 Telephone [facility] Medical Group Multispecialty Care - [place] [address] [place] [address] [address] [place] [address] [place] [address] [place] [address] 157 [place] [address] Lab Results Social History Tobacco [...] Thanks Tracy Olivares MD Internal Medicine [facility] Medical [facility]. documented in this encounter Plan of Treatment Upcoming Encounters Date Type Department Care Team (Late st Contact Info) Description 10/03/2024 11:00 AM SOUNDING DEVICE OPERATOR Office Visit [facility] Pulmonology Specialty Clinic - [address] [address] Nathan Baig MD [address] [place] [address] 11/14/2024 10:20 AM SOUNDING DEVICE OPERATOR Office Visit [facility] Multispecialty Care - [address] [place] [address] [place] [address] [place] [address] 157 [place] [address] documented as of this encounter Visit Diagnoses Not on filedocumented in this encounter Additional Health Concerns Assessment Noted Time PHQ-9 Depression Total Score: 5 01/06/20 10:48 AM CDT documented as of this encounter Care Teams Drilling Supervisor Relationship Specialty Start Date End Date Tracy Olivares MD [address] [facility] [address] [place] [address] PCP - General INTERNAL MEDICINE 01/02/21 Nathan Baig MD [address] [address] Consulting Physician Internal Medicine Pulmonary Disease 09/16/21 documented as of this encounter
--- OUTSIDE RECORDS SUMMARY | 2024-09-07 15:20 | XMS_ITS | Encounter Summary ---
Author Organization [facility] Address [address] [place] [address]. [place], [place] [address] [place] [address] Care Team Providers Care Enterostomal Therapy Nurse Name Role Phone Tracy Olivares MD Primary Care Provider [phone] Encounter Details Date Type Department Care Team [...] Contact Info) Description 10/03/2024 11:00 AM LABOR RELATIONS WORKER Office Visit [facility] Group Pulmonology Specialty Clinic - [address] [place] [address] Nathan Baig MD [address] [place] [address] 11/14/2024 10:20 AM LABOR RELATIONS WORKER Office Visit [facility] Medical Group Multispecialty Care - [place] [address] [address] [place] [address] Tracy Olivares MD [address] [place] [address] documented as of this encounter Visit Diagnoses Not on filedocumented in this encounter Additional Health Concerns Assessment Noted Time PHQ-9 Depression Total Score: 3 07/06/20 21 9:34 AM CDT documented as of this encounter Care Teams Enterostomal Therapy Nurse Relationship Specialty Start Date End Date Tracy Olivares MD [address] [place] [address] PCP - General INTERNAL MEDICINE 01/02/21 documented as of this encounter
--- OUTSIDE RECORDS SUMMARY | 2024-09-07 15:20 | XMS_ITS | Encounter Summary ---
Author Organization [facility] Address [address] [place] [address]. [place], [place] [address] [place] [address] Care Team Providers Care Children'S Book Author Name Role Phone Tracy Olivares MD Primary Care Provider [phone] Nathan Baig MD Unavailable [phone] Reason for Visit * Reason Comments Obstructive Sleep Apnea CPAP @ 9 cm IV COPD PFT is scheduled in January * Consultation (Routine) - Closed Specialty Diagnoses / Procedures Referred By Contact Referred To Contact SLEEP & RESPIRATORY CARE Diagnoses FAISAL on CPAP Tracy Olivares MD [address] [place] [address] Phone: tel: fax: [facility] [address] [address] Phone: tel: fax: Referral ID Status Reason Start Date Expiration Date Visits Re quested Visits Authorized [id number] Closed 05/16/2021 11/12/2021 6 6 Encounter Details Date Type Department Care Team (Late st Contact Info) Description 10/23/2021 9:00 AM FIRST COOK Office Visit [facility] [address] [address] Nathan Baig MD [address] [place] [address] Obstructive Sleep Apnea (CPAP @ 9 cm [...] Coronavirus/COVID-19? No / Unsure 10/23/2021 8:36 AM FIRST COOK documented as of this encounter Last Filed Vital Signs Vital Sign Reading Time Taken Comments Blood Pressure 126/72 10/23/2021 8:43 AM FIRST COOK Pulse 86 10/23/2021 8:43 AM FIRST COOK Temperature 36.5 ??C (97.7 ??F) 10/23/2021 8:43 AM CS T Respiratory Rate 12 10/23/2021 8:43 AM FIRST COOK Oxygen Saturation 97% 10/23/2021 8:43 AM FIRST COOK Inhaled Oxygen Concentration - - Weight 128.8 kg (284 lb) 10/23/2021 8:43 AM FIRST COOK Height 161.3 cm (5' 3.5 ) 10/23/2021 8:43 AM FIRST COOK Body Mass Index 49.52 10/23/2021 8:43 AM FIRST COOK documented in this encounter Patient Instructions * Patient Instructions* Nathan Baig MD - 10/23/2021 9:00 AM FIRST COOK 1. Continue wearing your CPAP every night [...] me in 6 months, sooner if needed T COOK documented in this encounter Progress Notes * Nathan Baig MD - 10/23/2021 9:00 AM CST [facility] PULMONARY MEDICINE History Chief Complaint [...] in about 6 months (around 04/22/2022). Nathan Baig MD T COOK documented in this encounter Plan of Treatment Upcoming Encounters Date Type Department Care Team (Late st Contact Info) Description 10/03/2024 11:00 AM FIRST COOK Office Visit [facility] - [address] [address] Nathan Baig MD [address] [place] [address] 11/14/2024 10:20 AM FIRST COOK Office Visit [facility] Multispecialty Care - [place] [address] [address] [place] [address] Tracy Olivares MD [address] [place] [address] documented as of this encounter Visit Diagnoses Diagnosis FAISAL on CPAP- Primary Obstructive sleep apnea (adult) (pediatric) Pulmonary emphysema, unspecified emphysema type ([facility]) Class 3 severe obesity due to excess calories without serious comorbidity with body mass index (BMI) of 45.0 to 49.9 in adult ([facility]) Nicotine dependence, cigarettes, in remission documented in this encounter Additional Health Concerns Assessment Noted Time PHQ-9 Depression Total Score: 6 09/16/19 10:54 AM FIRST COOK documented as of this encounter Care Teams Children'S Book Author Relationship Specialty Start Date End Date Tracy Olivares MD [address] [place] [address] PCP - General INTERNAL MEDICINE 01/02/21 Nathan Baig MD [address] [place] [address] [address] Consulting Physician Internal Medicine Pulmonary Disease 09/16/21 documented as of this encounter
--- OUTSIDE RECORDS SUMMARY | 2024-09-07 15:20 | XMS_ITS | Encounter Summary ---
Author Organization [facility] Address [address] [place] [address]. [place] [id number] Care Team Providers Care Cooking Casing And Drying Supervisor Name Role Phone Tracy Olivares MD Primary Care Provider [phone] Reason for Visit * Reason Onset Date Comments Question 08/21/2021 Encounter Details Date Type Department Care Team (Late st Contact Info) Description 08/21/2021 Telephone [facility] Multispecialty Care - [place] [address] [address] [place] [address] Tracy Olivares MD [address] [place] [address] [address] [place] [address] Question Social History Tobacco Use [...] COVID-19? No / Unsure 08/17/2021 11:15 AM MEDICAL LAB SPECIALIST documented as of this encounter Progress Notes * Tracy Olivares MD - 08/21/2021 10:10 AM CST I called patient. She is currently on triple therapy. She would like to hold off Ozempic till after she has finished with therapy. I agree. All questions answered. Patient advised to follow-up with gastroenterology as planned. Tracy Olivares MD Internal Medicine [facility]. CAL LAB SPECIALIST * Sadi Byrd - 08/21/2021 8:17 AM CST Patient would like the provider to call her and answer some questions about Ozempic. CAL LAB SPECIALIST documented in this encounter Plan of Treatment Upcoming Encounters Date Type Department Care Team (Late st Contact Info) Description 10/03/2024 11:00 AM MEDICAL LAB SPECIALIST Office Visit [facility] Pulmonology Specialty Clinic - [address] [address] Nathan Baig MD [address] [place] [address] 11/14/2024 10:20 AM MEDICAL LAB SPECIALIST Office Visit [facility] Multispecialty Care - [place] [address] [address] [place] [address] Tracy Olivares MD [facility] [address] [address] documented as of this encounter Visit Diagnoses Not on filedocumented in this encounter Additional Health Concerns Assessment Noted Time PHQ-9 Depression Total Score: 3 07/06/20 21 9:34 AM CDT documented as of this encounter Care Teams Cooking Casing And Drying Supervisor Relationship Specialty Start Date End Date Tracy Olivares MD [address] [place] [address] PCP - General INTERNAL MEDICINE 01/02/21 documented as of this encounter
--- OUTSIDE RECORDS SUMMARY | 2024-09-07 15:20 | XMS_ITS | Encounter Summary ---
Author Organization [facility] - [facility] Address [address] [place] [address]. [place], [place] [address] [place] [address] Care Team Providers Care Concrete Pump Operator Name Role Phone Tracy Olivares MD Primary Care Provider [phone] Nathan Baig MD Unavailable [phone] Reason for Visit * Reason Onset Date Comments Medication Problem 11/09/2021 Encounter Details Date Type Department Care Team (Late st Contact Info) Description 11/09/2021 Telephone [facility] Multispecialty Care - [place] [address] [place] [address] [address] [place] [address] Tracy Olivares MD [address] [facility] 157 [place] [address] Medication Problem Social History Tobacco [...] Coronavirus/COVID-19? No / Unsure 10/23/2021 8:36 AM STAFF TRAINER documented as of this encounter Progress Notes * Sadi Byrd - 11/09/2021 8:42 AM CST Patient called and said that she stopped taking the Ozempic because it was making her sick. She said that she got some nausea medicine from the pharmacy and it gave her a bad headache and she was sick for a week. Please call patient to discuss. F TRAINER documented in this encounter Plan of Treatment Upcoming Encounters Date Type Department Care Team (Late st Contact Info) Description 10/03/2024 11:00 AM STAFF TRAINER Office Visit [facility] Pul[facility]ty Clinic - [address] [address] Nathan Baig MD [address] [address] 11/14/2024 10:20 AM STAFF TRAINER Office Visit [facility] Multispecialty Care - [place] [address] [address] [place] [address] Tracy Olivares MD [address] [place] [address] documented as of this encounter Visit Diagnoses Not on filedocumented in this encounter Additional Health Concerns Assessment Noted Time PHQ-9 Depression Total Score: 6 09/16/19 10:54 AM STAFF TRAINER documented as of this encounter Care Teams Concrete Pump Operator Relationship Specialty Start Date End Date Tracy Olivares MD [address] [place] [address] PCP - General INTERNAL MEDICINE 01/02/21 Nathan Baig MD [address] [address] Consulting Physician Internal Medicine Pulmonary Disease 09/16/21 documented as of this encounter
--- OUTSIDE RECORDS SUMMARY | 2024-09-07 15:20 | XMS_ITS | Encounter Summary ---
Author Organization [facility] Address [address] [place] [address]. [place] [id number] Care Team Providers Care Towboat Captain Name Role Phone Tracy Olivares MD Primary Care Provider [phone] Reason for Visit * Reason Onset Date Comments Question 08/31/2021 Encounter Details Date Type Department Care Team (Late st Contact Info) Description 08/31/2021 Telephone [facility] Medical Group Multispecialty Care - [place] [address] [address] [place] [address] Tracy Olivares MD [address] [place] [address] 157 [place] [address] Question Social History Tobacco Use [...] COVID-19? No / Unsure 08/17/2021 11:15 AM ELIGIBILITY EXAMINER documented as of this encounter Progress Notes * Paurl Arora MA - 09/01/2021 8:47 AM CST She is scheduled to come in today IBILITY EXAMINER * Tracy Olivares MD - 08/31/2021 1:10 PM CST Called and spoke to patient. Describing dizzy episodes. She cannot come in today but plans to come in tomorrow 10/02/2020. Tracy Olivares MD Internal Medicine [facility].' IBILITY EXAMINER IBILITY EXAMINER * Parul Arora MA - 08/31/2021 11:10 AM CST Please advise IBILITY EXAMINER * Sadi Byrd - 08/31/2021 10:57 AM CST Patient called and stated that she has had something like vertigo for the past 5 days and it has not gone away. She would like to know if there is anything you can prescribe her or anything she can take over the counter. Please call patient to discuss. IBILITY EXAMINER documented in this encounter Plan of Treatment Upcoming Encounters Date Type Department Care Team (Late st Contact Info) Description 10/03/2024 11:00 AM ELIGIBILITY EXAMINER Office Visit [facility] Pulmonology Specialty Clinic - [place] [address] [address] [place] [address] Nathan Baig MD [address] [place] [address] 11/14/2024 10:20 AM ELIGIBILITY EXAMINER Office Visit [facility] Multispecialty Care - [address] [place] [address] Tracy Olivares MD [address] [place] [address] documented as of this encounter Visit Diagnoses Not on filedocumented in this encounter Additional Health Concerns Assessment Noted Time PHQ-9 Depression Total Score: 3 07/06/20 21 9:34 AM CDT documented as of this encounter Care Teams Towboat Captain Relationship Specialty Start Date End Date Tracy Olivares MD [address] [place] [address] PCP - General INTERNAL MEDICINE 01/02/21 documented as of this encounter
--- OUTSIDE RECORDS SUMMARY | 2024-09-07 15:20 | XMS_ITS | Encounter Summary ---
Author Organization [facility] Address [address] [place] [address]. [place] [id number] [place] [address] Care Team Providers Care Apprentice Plant Attendant Name Role Phone Tracy Olivares MD Primary Care Provider [phone] Reason for Visit * Reason Onset Date Comments Lab Results 07/10/2021 Encounter Details Date Type Department Care Team (Late st Contact Info) Description 07/10/2021 Telephone [facility] Medical [facility] Multispecialty Care - [address] [place], [place] [id number] Tracy Olivares MD [address] [place] [address] 157 [place] [address] Lab Results Social History Tobacco [...] side effects. The 10-year ASCVD risk score ([place] FISHER Jr., et al., 2013) is: 8.6% [...] 6 months. Tracy Olivares MD Internal Medicine [facility]. documented in this encounter Plan of Treatment Upcoming Encounters Date Type Department Care Team (Late st Contact Info) Description 10/03/2024 11:00 AM TRUCK CRANE OPERATOR Office Visit [facility] Pulmonology Specialty Clinic - [address] [address] Nathan Baig MD [address] [address] 11/14/2024 10:20 AM TRUCK CRANE OPERATOR Office Visit [facility] Multispecialty Care - [place] [address] [address] [place] [address] Tracy Olivares MD [address] [place] [address] documented as of this encounter Visit Diagnoses Diagnosis Prediabetes- Primary Other abnormal glucose Mixed hyperlipidemia documented in this encounter Additional Health Concerns Assessment Noted Time PHQ-9 Depression Total Score: 3 07/06/20 21 9:34 AM CDT documented as of this encounter Care Teams Apprentice Plant Attendant Relationship Specialty Start Date End Date Tracy Olivares MD [address] [facility] 157 [place] [address] PCP - General INTERNAL MEDICINE 01/02/21 documented as of this encounter
--- OUTSIDE RECORDS SUMMARY | 2024-09-07 15:20 | XMS_ITS | Encounter Summary ---
Author Organization [facility] Address [address] [place] [address]. [place], [place] [address] [place] [address] Care Team Providers Care Inspector Fuel Hose Name Role Phone Tracy Olivares MD Primary Care Provider [phone] Nathan Baig MD Unavailable [phone] Reason for Visit * Reason Comments Obstructive Sleep Apnea CPAP IV * Consultation (Routine) - Closed Specialty Diagnoses / Procedures Referred By Contact Referred To Contact SLEEP & RESPIRATORY CARE Diagnoses [place] [address] [place] [address] Phone: tel: fax: [facility] Pul[facility] [address] [address] Phone: tel: fax: Referral ID Status Reason Start Date Expiration Date Visits Re quested Visits Authorized [id number] Closed 05/16/2021 11/12/2021 6 6 Encounter Details Date Type Department Care Team (Late st Contact Info) Description 05/22/2021 9:20 AM CDT Office Visit [facility] Pulmonology [facility]ty Clinic - [address] [address] Nathan Baig MD [address] [place] [address] Obstructive Sleep Apnea (CPAP IV) Social History [...] Baig MD - 05/22/2021 9:20 AM CDT [facility] PULMONARY MEDICINE History Chief Complaint Patient [...] st Contact Info) Description 10/03/2024 11:00 AM BUCKLE ATTACHING MACHINE OPERATOR Office Visit [facility] Pulmonology [facility]ty Clinic - [address] [address] Nathan Baig MD [address] [address] 11/14/2024 10:20 AM BUCKLE ATTACHING MACHINE OPERATOR Office Visit [facility] Multispecialty Care - [place] [address] [address] [place] [address] Tracy Olivares MD [facility] [address] [address] documented as of this encounter Visit Diagnoses Diagnosis FAISAL on CPAP- Primary Obstructive sleep apnea (adult) (pediatric) Chronic obstructive pulmonary disease, unspecified COPD type ([facility]) Class 3 severe obesity due to excess calories without serious comorbidity with body mass index (BMI) of 45.0 to 49.9 in adult ([facility]) Nicotine dependence, cigarettes, in remission documented in this encounter Additional Health Concerns Infection Onset Date Last Indicated Resolved Time COVID-19 Rule Out 01/19/2022 01/19/2022 01/19/2022 12:59 PM CDT COVID-19 Confirmed 01/19/2022 01/19/2022 12:32 AM CDT Assessment Noted Time PHQ-9 Depression Total Score: 0 05/22/20 21 9:15 AM CDT documented as of this encounter Care Teams Inspector Fuel Hose Relationship Specialty [place] [address] [place] [address] PCP - General INTERNAL MEDICINE 01/02/21 Nathan Baig MD 3 [place] [address] Consulting Physician Internal Medicine Pulmonary Disease 09/16/21 documented as of this encounter
--- OUTSIDE RECORDS SUMMARY | 2024-09-07 15:20 | XMS_ITS | Encounter Summary ---
Author Organization [facility] Address [address] [place] [address]. [place], [place] [address] [place] [address] Care Team Providers Care Assistant Engineer Name Role Phone Tracy Olivares MD Primary Care Provider [phone] Reason for Referral * Imaging (Routine) - Closed Specialty Diagnoses / Procedures Referred By Heidi t Referred To Contact RADIOLOGY Diagnoses Epigastric pain Procedures US ABD LIMITED Tracy Olivares MD [address] [facility] [address] [place] [address] Phone: tel: fax: [facility] [address] [place] [address] Phone: tel: fax: Referral ID Status Reason Start Date Expiration Date Visits Re quested Visits Authorized [id number] Closed 08/17/2021 09/17/2022 1 1 OGRAPHIC PRESS OPERATOR * Consultation (Routine) - Closed Specialty Diagnoses / Procedures Referred By Contoziel t Referred To Contact GASTROENTEROLOGY Diagnoses PUD (peptic ulcer disease) Tracy Olivares MD [address] [facility] [address] [place] [address] Phone: tel: fax: Isaias Rodriguez MD [address] [facility] [address] [place] [address] Phone: tel: fax: Referral ID Status Reason Start Date Expiration Date Visits Re quested Visits Authorized [id number] Closed 09/01/2021 02/28/2022 6 6 OGRAPHIC PRESS OPERATOR Reason for Visit * Reason Comments Stomach Pains c/o of ongoing stoma ch pains/gas. She states the omeprazole is not helping anymore Encounter Details Date Type Department Care Team (Latest Contact Info) Description 08/17/2021 11:20 AM FLEXOGRAPHIC PRESS OPERATOR Office Visit [facility] Multispecialty Care - [place] [address] [address] [place] [address] Tracy Olivares MD [address] [place] [address] [address] [place], [place] [id number] Stomach Pains (c/o of ongoing stomach pains/gas. [...] COVID-19? No / Unsure 08/17/2021 11:15 AM FLEXOGRAPHIC PRESS OPERATOR documented as of this encounter Last Filed Vital Signs Vital Sign Reading Time Taken Comments Blood Pressure 122/80 08/17/2021 11:24 AM FLEXOGRAPHIC PRESS OPERATOR Pulse 90 08/17/2021 11:24 AM FLEXOGRAPHIC PRESS OPERATOR Temperature 36.7 ??C (98.1 ??F) 08/17/2021 11:[address] Respiratory Rate 18 08/17/2021 11:24 AM FLEXOGRAPHIC PRESS OPERATOR Oxygen Saturation 98% 08/17/2021 11:24 AM FLEXOGRAPHIC PRESS OPERATOR Inhaled Oxygen Concentration - - Weight 127.5 kg (281 lb) 08/17/2021 11:24 AM FLEXOGRAPHIC PRESS OPERATOR Height 161.3 cm (5' 3.5 ) 08/17/2021 11:24 AM CS T Body Mass Index 49 08/17/2021 11:24 AM FLEXOGRAPHIC PRESS OPERATOR documented in this encounter Patient Instructions * Patient Instructions* Tracy Olivares MD - 08/17/2021 11:20 AM FLEXOGRAPHIC PRESS OPERATOR Images from the original note were not included. Follow up in 4 weeks. Patient Education Patient Education Acid Reflux (Gastroesophageal Reflux Disease) During The Basics Written by the doctors and editors at [facility] What is acid reflux???--??Acid reflux is when [...] a pr escription. Before you use any [id number] medicines for acid reflux, talk to your [...] process is complete. This topic retrieved from [employer] on: Apr 30, 2021. Topic 13740 Version 9.0 Release: 29.4.2 - C29.229 ?2020??[employer] and/or its affiliates.??All rights reserved. figure 1: Upper digestive tract The upper digestive tract includes the esophagus??(the tube that connects the mouth to the stomach), the stomach, and the duodenum (the first part of the small intestine). Graphic 79933 Version 6.0 table 1: Medicines used to [...] name: Dexilant) Rabeprazole (brand name: AcipHex) Graphic 54579 Version 14.0 Consumer Information Use and Disclaimer [...] of this information is governed by the [employer] End User License Agreement, available at [email or web address]/[email or web address]/about/lonny.The use of [employer] content is governed by the [employer] Terms of Use. ??2020 [employer]. All rights reserved. Copyright ?2020??[employer]. and/or its affiliates.??All rights reserved. OGRAPHIC PRESS OPERATOR OGRAPHIC PRESS OPERATOR OGRAPHIC PRESS OPERATOR documented in this encounter Progress [...] was at least in part performed using [employer] and there may be some inherent flaws in this chemical engineering teacher due to the nature of this program. Tracy Olivares MD Internal Medicine [facility], [facility]. OGRAPHIC PRESS OPERATOR documented in this encounter Plan of Treatment Upcoming Encounters Date Type Department Care Team (Late st Contact Info) Description 10/03/2024 11:00 AM FLEXOGRAPHIC PRESS OPERATOR Office Visit [facility] Pulmonology Specialty Clinic - [address] [address] Nathan Baig MD [address] [place] [address] 11/14/2024 10:20 AM FLEXOGRAPHIC PRESS OPERATOR Office Visit [facility] Multispecialty Care - [place] [address] [address] [place] [address] Tracy Olivares MD [address] [place] [address] Scheduled Orders Name Type Priority Associated Diagnoses [...] as of this encounter Care Teams Assistant Engineer Relationship Specialty Start Date End Date Tracy Olivares MD [address] [facility] [address] [place] [address] PCP - General INTERNAL MEDICINE 01/02/21 documented as of this encounter
--- OUTSIDE RECORDS SUMMARY | 2024-09-07 15:20 | XMS_ITS | Encounter Summary ---
Author Organization [facility] Address [address] [place] [address]. [address] [address] Care Team Providers Care Inventory Management Specialist Name Role Phone Tracy Olivares MD Primary Care Provider Reason for Visit * Reason Comments Back Pain Jnt Pain/Knee Joint Pain/Shoulder region * Physical Medicine (Routine) - Closed Specialty Diagnoses / Procedures Referred By Contac t Referred To Contact PHYSICAL THERAPY / [facility] Physical Therapy Diagnoses Chronic bilateral low back pain with bilateral sciatica Chronic left shoulder pain Chronic pain of right knee Tracy Olivares MD [address] [address] Phone: tel: fax: [facility] [place] [facility] Physical Therapy [address] [address] Phone: tel: fax: Referral ID Status Reason Start Date Expiration Date V isits Requested Visits Authorized [id number] Closed Physical Therapy 07/06/2021 08/05/2022 10 10 Encounter Details Date Type Department Care Team (Latest Contact Info) Description 07/17/2021 8:45 AM CDT Office Visit [facility] [place] [facility] Physical Therapy [address] [address] Tracy Olivares MD [address] [address] Ly [place], [place] [address] Back Pain; Jnt Pain/Knee; Joint Pain/Shoulder region [...] - 07/17/2021 8:45 AM CDT Access Code: [email or web address] URL: [email or web address] Date: 07/17/2021 Prepared by: Ly Collado Exercises [...] doing her usual housework. She cleans her yazidism and she can manage most tasks but [...] st Contact Info) Description 10/03/2024 11:00 AM HEADER DOCK Office Visit [facility] Medical Group [facility] - [address] [address] Nathan Baig MD [address] [address] 11/14/2024 10:20 AM HEADER DOCK Office Visit [facility] Medical [facility] Multispecialty Care - [place] [address] [address] [place] [address] Tracy Olivares MD [facility] [address] [address] documented as of this encounter Visit Diagnoses Diagnosis Back pain, chronic- Primary Backache, unspecified Neck pain Cervicalgia Shoulder pain Pain in joint, shoulder region Knee pain Pain in joint, lower leg documented in this encounter Additional Health Concerns Assessment Noted Time PHQ-9 Depression Total Score: 3 07/06/20 21 9:34 AM CDT documented as of this encounter Care Teams Inventory Management Specialist Relationship Specialty Start Date End Date Tracy Olivares MD [address] [place] [address] PCP - General INTERNAL MEDICINE 01/02/21 documented as of this encounter
--- OUTSIDE RECORDS SUMMARY | 2024-09-07 15:20 | XMS_ITS | Encounter Summary ---
Author Organization [facility] Address [address] [place] [address]. [place], [place] [address] [place] [address] Care Team Providers Care Bench Lathe Operator Name Role Phone Tracy Olivares MD Primary Care Provider [phone] Encounter Details Date Type Department Care Team [...] st Contact Info) Description 10/03/2024 11:00 AM MIDDLE SCHOOL BASEBALL COACH Office Visit [facility] Medical Group Pulmonology Specialty Clinic - [address] [place] [address] Nathan Baig MD [address] [place] [address] 11/14/2024 10:20 AM MIDDLE SCHOOL BASEBALL COACH Office Visit [facility] Medical Group Multispecialty Care - [place] [address] [address] [place] [address] Tracy Olivares MD [address] [place] [address] documented as of this encounter Visit Diagnoses Not on filedocumented in this encounter Additional Health Concerns Assessment Noted Time PHQ-9 Depression Total Score: 0 05/22/20 9:15 AM CDT documented as of this encounter Care Teams Bench Lathe Operator Relationship Specialty Start Date End Date Tracy Olivares MD [address] [place] [address] PCP - General INTERNAL MEDICINE 01/02/21 documented as of this encounter
--- OUTSIDE RECORDS SUMMARY | 2024-09-07 15:20 | XMS_ITS | Encounter Summary ---
Author Organization [facility] Address [address] [place] [address]. [place], [place] [address] [place] [address] Care Team Providers Care Junior Architect Name Role Phone Tracy Olivares MD Primary Care Provider [phone] Nathan Baig MD Unavailable Reason for Visit * Reason Onset Date Comments Medication Request 12/23/2021 Encounter Details Date Type Department Care Team (Late st Contact Info) Description 12/23/2021 Telephone [facility] Medical Group Multispecialty Care [place] [address] [place] [address] [address] [place] [address] Tracy Olivares MD 1188 [facility] [address] [place] [address] Medication Request Social History Tobacco [...] Contact Info) Description 10/03/2024 11:00 AM MANAGER PRODUCE Office Visit [facility] Medical Group Pulmonology Specialty Clinic - [address] [address] Nathan Baig MD [address] [place] [address] 11/14/2024 10:20 AM MANAGER PRODUCE Office Visit [facility] Medical Group Multispecialty Care - [place] [address] [address] [place] [address] Tracy Olivares MD [address] [place] [address] documented as of this encounter Visit Diagnoses Not on filedocumented in this encounter Additional Health Concerns Assessment Noted Time PHQ-9 Depression Total Score: 6 09/16/19 10:54 AM MANAGER PRODUCE documented as of this encounter Care Teams Junior Architect Relationship Specialty Start Date End Date Tracy Olivares MD [address] [address] PCP - General INTERNAL MEDICINE 01/02/21 Nathan Baig MD [address] [address] Consulting Physician Internal Medicine Pulmonary Disease 09/16/21 documented as of this encounter
--- OUTSIDE RECORDS SUMMARY | 2024-09-07 15:20 | XMS_ITS | Encounter Summary ---
Author Organization [facility] Address [address] [place] [address]. [place] [id number] [place] [address] Care Team Providers Care Outdoor Power Equipment Mechanic Name Role Phone Tracy Olivares MD Primary Care Provider [phone] Reason for Visit * Reason Comments Sinus Problem Pt has some sinus co ncerns, taste of blood in her mouth, feeling of something stuck in her throat. Follow Up Worsening anterior l eg neuropathy Encounter Details Date Type Department Care Team (Latest Contact Info) Description 05/20/2021 11:20 AM CDT Office Visit [facility] Medical Group Multispecialty Care - [place] [address] [address] [place] [address] Tracy Olivares MD [address] [place] [address] [id number] Sinus Problem (Pt has some sinus concerns, [...] cool-mist humidifier to avoid dry air. ? Powell salt water mist in each nostril. Any [...] to be as effective as the leading khtb-hua-dztekdn (OTC) drug for calming coughs. Use 1/2 [...] trouble breathing. Where can I learn more? [employer] https://familydoctor.org/uaqdc-kacqjwbz-tbsnyxalcfplk-ltyf-hmv-llvffyu/ NHS Choices https://www.nhs.uk/conditions/cough/ Last Reviewed Date 2019-10-09 [...] right for you. Copyright Copyright ?? 2020 [employer]. and its affiliates and/or licensors. All rights [...] was at least in part performed using [employer] and there may be some inherent flaws in this inspecting and testing lead hand due to the nature of this program. Tracy Olivares MD Internal Medicine [facility], [facility]. documented in this encounter Plan of Treatment Upcoming Encounters Date Type Department Care Team (Late st Contact Info) Description 10/03/2024 11:00 AM SOILS TECHNICIAN Office Visit [facility] Medical [facility] Pulmonology Specialty Clinic - [address] [address] Nathan Baig MD [address] [address] 11/14/2024 10:20 AM SOILS TECHNICIAN Office Visit [facility] Multispecialty Care - [place] [address] [address] [place] [address] Tracy Olivares MD [address] [address] documented as of this encounter Procedures Procedure [...] SPECIAL W/GRP A STREP SUSCEPT. ?Micro Number: ?[id number] ??Test Status: ? Final ??Specimen Source: ?? Throat ??Specimen Quality: ??Adequate ??Result: ?No oropharyngeal pathogens recovered. STRUCTURE OF ANTERIOR PORTION OF NECK / Unknown 05/20/2021 12:07 PM CDT 05/21/2021 3:14 AM CDT Tracy Olivares MD MICROBIOLOGY - GENERAL ORDERABLE S Final Result Performing Organization Address [facility] de Phone Number [facility] [address] [place] [address] * CULTURE,THROAT/NOSE/NASOPHARYNX (05/20/2021 12:07 PM CDT) CULTURE RESULT SEE NOTE [facility]arian[facility]oun Comment: ??CULTURE, THROAT ?Micro Number: ?[id number] ??Test Status: ? Final ??Specimen Source: ?? Throat ??Specimen Quality: ??Adequate ??Result: ?No oropharyngeal pathogens recovered. STRUCTURE OF ANTERIOR PORTION OF NECK / Unknown 05/20/2021 12:07 PM CDT 05/21/2021 3:13 AM CDT Tracy Olivares MD MICROBIOLOGY - GENERAL ORDERABLE S Final Result Performing Organization Address [facility] de Phone Number [facility] [address] [place] [address] * RAPID STREP A (05/20/2021) RAPID STREP TEST NEGATIVE NEGATIVE [id number], [place] Internal Control: VALID VALID [id number], [place] STRUCTURE OF ANTERIOR PORTION OF NECK / Unknown 05/20/2021 us Tracy Olivares MD MICROBIOLOGY - GENERAL ORDERABLE S Final Result Performing Organization Address [facility] de Phone Number [id number], [place] [address] [place] [address], documented in this encounter Visit Diagnoses Diagnosis Acute pharyngitis, unspecified etiology- Primary Idiopathic peripheral neuropathy Unspecified hereditary and idiopathic peripheral neuropathy documented in this encounter Additional Health Concerns Assessment Noted Time PHQ-9 Depression Total Score: 9 04/14/20 21 10:21 AM CDT documented as of this encounter Care Teams Outdoor Power Equipment Mechanic Relationship Specialty Start Date End Date Tracy Olivares MD [address] [address] PCP - General INTERNAL MEDICINE 01/02/21 documented as of this encounter
--- OUTSIDE RECORDS SUMMARY | 2024-09-07 15:21 | XMS_ITS | Encounter Summary ---
Author Organization [facility] Address [address] [place] [address]. [place] [id number] Care Team Providers Care Server Assistant Name Role Phone Tracy Olivares MD Primary Care Provider [phone] Reason for Visit * Reason Comments Back Pain * Physical Medicine (Routine) - Closed Specialty Diagnoses / Procedures Referred By Contac t Referred To Contact PHYSICAL THERAPY / [facility] Physical Therapy Diagnoses Low back pain due to bilateral sciatica Chronic left shoulder pain Tracy Olivares MD [address] [address] Phone: tel: fax: [facility] Physical Therapy [address] [place] [address] Phone: tel: fax: Referral ID Status Reason Start Date Expiration Date V isits Requested Visits Authorized [id number] Closed Physical Therapy 01/20/2021 02/19/2022 10 10 Encounter Details Date Type Department Care Team (Late st Contact Info) Description 02/06/2021 2:15 PM CDT Office Visit [facility] Physical Therapy [address] [place] [address] Tracy Olivares MD [facility] [address] [address] Shukri Rodgers PT Back Pain [...] Info) Description 10/03/2024 11:00 AM PUBLIC HEALTH WORKER Office Visit [facility] Medical Group Pulmonology Specialty Clinic - [address] [address] Nathan Baig MD [address] [place] [address] 11/14/2024 10:20 AM PUBLIC HEALTH WORKER Office Visit [facility] Medical Group Multispecialty Care - [place] [address] [address] [place] [address] Tracy Olivares MD [facility] [address] [address] documented as of this encounter Visit Diagnoses Diagnosis Low back pain with right-sided sciatica- Primary Chronic left shoulder pain Pain in joint, shoulder region documented in this encounter Additional Health Concerns Assessment Noted Time PHQ-9 Depression Total Score: 6 01/06/20 21 12:11 PM CDT documented as of this encounter Care Teams Server Assistant Relationship Specialty Start Date End Date Tracy Olivares MD [address] [place] [address] PCP - General INTERNAL MEDICINE 01/02/21 documented as of this encounter
--- OUTSIDE RECORDS SUMMARY | 2024-09-07 15:21 | XMS_ITS | Encounter Summary ---
Author Organization [facility] Address [address] [place] [address]. [place], [place] [address] [place] [address] Care Team Providers Care Nitroglycerin Nitrator Operator Batch Name Role Phone Tracy Olivares MD Primary Care Provider [phone] Nathan Baig MD Unavailable [phone] Encounter Details Date Type Department Care [...] Coronavirus/COVID-19? No / Unsure 10/23/2021 8:36 AM CORRESPONDENCE RENEW CLERK documented as of this encounter Plan of Treatment Upcoming Encounters Date Type Department Care Team (Late Contact Info) Description 10/03/2024 11:00 AM CORRESPONDENCE RENEW CLERK Office Visit [facility] Medical Group Pulmonology Specialty Clinic - [address] [place], [place] [address] Nathan aBig MD 3 [facility] [address] [place] [address] 11/14/2024 10:20 AM CORRESPONDENCE RENEW CLERK Office Visit [facility] Medical Group Multispecialty Care - [place] [address] [address] [place] [address] Tracy Olivares MD [facility] [address] [address] documented as of this encounter Visit Diagnoses Not on filedocumented in this encounter Additional Health Concerns Assessment Noted Time PHQ-9 Depression Total Score: 9 04/14/20 10:21 AM CDT documented as of this encounter Care Teams Nitroglycerin Nitrator Operator Batch Relationship Specialty Start Date End Date Tracy Olivares MD [address] [place] [address] PCP - General INTERNAL MEDICINE 01/02/21 Nathan Baig MD 3 [facility] [address] [place] [address] Consulting Physician Internal Medicine Pulmonary Disease 09/16/21 documented as of this encounter
--- OUTSIDE RECORDS SUMMARY | 2024-09-07 15:21 | XMS_ITS | Encounter Summary ---
Author Organization [facility] Address [address] [place] [address]. [place], [place] [address] [place] [address] Care Team Providers Care Kick Press Operator Name Role Phone Tracy Olivares MD Primary Care Provider [phone] Reason for Visit * Reason Comments Sleep Study (SCAN) Encounter Details Date Type Department Care Team ([facility] Contact Info) Description 02/18/2020 Scan HEALTH INFO [...] Date Type Department Care Team ([facility] Contact Info) Description 10/03/2024 11:00 AM MEDICAL PHYSICIST Office Visit [facility] Medical Group Pulmonology Specialty Clinic - [address] [place] [address] Nathan Baig MD [address] [place] [address] 11/14/2024 10:20 AM MEDICAL PHYSICIST Office Visit [facility] Medical Group Multispecialty Care - [place] [address] [place] [address] [address] [place] [address] Tracy Olivares MD 1188 [facility] [address] [place] [address] documented as of this encounter Procedures Procedure [...] on filedocumented in this encounter Care Teams Kick Press Operator Relationship Specialty Start Date End Date Tracy Olivares MD [address] [address] PCP - General INTERNAL MEDICINE 01/02/21 documented as of this encounter
--- OUTSIDE RECORDS SUMMARY | 2024-09-07 15:21 | XMS_ITS | Encounter Summary ---
Author Organization [facility] Address [address] [place] [address]. [place] [id number] [place] [address] Care Team Providers Care Home Specialist Name Role Phone Tracy Olivares MD Primary Care Provider [phone] Reason for Visit * Reason Onset Date Comments Referral Request 01/12/2021 Encounter Details Date Type Department Care Team (Late st Contact Info) Description 01/12/2021 Telephone [facility] Medical Group Multispecialty Care - [address] [place] [address] Suzan Strauss NP Referral Request Social History [...] AM CDT Patient needs referral sent to [facility] in [place]. She has an appointment with themon January 15. Thanks documented in this encounter Plan of Treatment Upcoming Encounters Date Type Department Care Team (Late st Contact Info) Description 10/03/2024 11:00 AM SCHOOL LABORATORY TECHNICIAN Office Visit [facility] Medical Group Pulmonology Specialty Clinic - [address] [address] Nathan Baig MD [address] [place] [address] 11/14/2024 10:20 AM SCHOOL LABORATORY TECHNICIAN Office Visit [facility] Medical [facility] Multispecialty Care - [place] [address] [address] [place] [address] Tracy Olivares MD [facility] [address] [address] documented as of this encounter Visit Diagnoses Not on filedocumented in this encounter Additional Health Concerns Assessment Noted Time PHQ-9 Depression Total Score: 6 01/06/20 21 12:11 PM CDT documented as of this encounter Care Teams Home Specialist Relationship Specialty Start Date End Date Tracy Olivares MD [address] [place] [address] PCP - General INTERNAL MEDICINE 01/02/21 documented as of this encounter
--- OUTSIDE RECORDS SUMMARY | 2024-09-07 15:21 | XMS_ITS | Encounter Summary ---
Author Organization [facility] Address [address] [place] [address]. [place], [place] [address] [place] [address] Care Team Providers Care Biosolids Management Technician Name Role Phone Tracy Olivares MD Primary Care Provider [phone] Encounter Details Date Type Department Care Team [...] st Contact Info) Description 10/03/2024 11:00 AM STACKER DRIVER Office Visit [facility] Medical Group Pulmonology Specialty Clinic - [place] [address] [address] [place] [address] Nathan Baig MD [address] [place] [address] 11/14/2024 10:20 AM STACKER DRIVER Office Visit [facility] Medical Group Multispecialty Care - [place] [address] [address] [place] [address] [place] [address] [place] [address] documented as of this encounter Visit Diagnoses Not on filedocumented in this encounter Additional Health Concerns Assessment Noted Time PHQ-9 Depression Total Score: 6 01/06/20 21 12:11 PM CDT documented as of this encounter Care Teams Biosolids Management Technician Relationship Specialty Start Date End Date Tracy Olivares MD [address] [place] [address] PCP - General INTERNAL MEDICINE 01/02/21 documented as of this encounter
--- OUTSIDE RECORDS SUMMARY | 2024-09-07 15:21 | XMS_ITS | Encounter Summary ---
Author Organization [facility] Address [address] [place] [address]. [place] [address] [place] [address] Care Team Providers Care Dividing Machine Operator Helper Name Role Phone Unavailable Primary Care Provider Unavailabl e Encounter Details Date Type Department Care Team (Late st Contact Info) Description 03/19/2013 Abstract [facility] Medical Group Multispecialty Care - [facility] [address] [facility], [address] [place] [phone] Ramiro Guzmán MD Social History Tobacco Use [...] Activated; INHALE 1 PUFF TWICE DAILY; Therapy: (Recorded:[id number]) to 2. Aspirin 81 MG Oral Tablet; Therapy: (Recorded:24Jul2012) to 3. Ibuprofen 800 MG Oral Tablet; TAKE 1 TABLET BY MOUTH EVERY 6 HOURS; Therapy: 24Feb2012 to 4. Losartan Potassium-HCTZ 100-12.5 MG Oral Tablet; TAKE 1 TABLET BY MOUTH EVERY DAY; Therapy: [id number] to Allergies 1. Aspirin TABS 2. Darvon CAPS Vitals [id number] 10:29AM Heart Rate 85 Systolic 131 Diastolic 66 BMI Calculated 45.36 BSA Calculated 2.36 Height 5 ft 7 in Weight 289 lb Assessment 1. Lower Back Pain 724.2 2. Limb Pain 729.5 3. Herniated Lumbar Disc 722.10 Signatures Electronically signed by : Ramiro Guzmán M.D.; Mar 19 2013 11:09AM (Author) ERED SUGAR PULVERIZER OPERATOR documented in this encounter Plan of Treatment Upcoming Encounters Date Type Department Care Team (Late st Contact Info) Description 10/03/2024 11:00 AM POWDERED SUGAR PULVERIZER OPERATOR Office Visit [facility] Medical Group Pulmonology Specialty Clinic - [address] [address] Nathan Baig MD [address] [place] [address] 11/14/2024 10:20 AM POWDERED SUGAR PULVERIZER OPERATOR Office Visit [facility] Medical Group Multispecialty Care - [place] [address] [address] [place] [address] [place] [address] [place] [address] documented as of this encounter Visit Diagnoses Not on filedocumented in this encounter
--- OUTSIDE RECORDS SUMMARY | 2024-09-07 15:21 | XMS_ITS | Encounter Summary ---
Author Organization [facility] Address [address] [place] [address]. [place], [place] [address] [place] [address] Care Team Providers Care Heater Operator Helper Name Role Phone Tracy Olivares MD Primary Care Provider [phone] Encounter Details Date Type Department Care Team (Late st Contact Info) Description 01/05/2021 Orders Only [facility] Medical Group Multispecialty Care - [place] [address] [address] [place] [address] [place] [address] [place] [address] [address] [place], [place] [id number] Social History Tobacco Use Types Packs/Day Years [...] st Contact Info) Description 10/03/2024 11:00 AM ARMY HELICOPTER PILOT Office Visit [facility] Medical Group Pulmonology Specialty Clinic - [place] [address] [facility] [address] [place] [address] Nathan Baig MD [address] [address] 11/14/2024 10:20 AM ARMY HELICOPTER PILOT Office Visit [facility] Medical [facility] Multispecialty Care - [place] [address] [facility] [address] [place] [address] Tracy Olivares MD [address] [facility] [address] [place] [address] documented as of this encounter Procedures Procedure [...] MD LABORATORY Final Result Performing Organization Address [facility] Co de Phone Number [facility] [address] [place] [address] * TSH W/REFLEX FT3 AND FT4 (01/05/2021 12:51 PM CDT) TSH 1.59 0.40 - 4.50 mIU/L [facility] Comment: Our records indicate that you have ordered a client custom reflex order code. Only the initial test was performed because we do not have a client custom reflex testing authorization request form on file for you. Please contact a client specialist if you would like additional testing done on this patient or contact your optical sales associate to obtain a client custom reflex testing authorization request form. 01/05/2021 12:5 1 PM CDT 01/05/2021 12:54 PM CDT Narrative [facility] - 01/06/2021 8:38 AM CDT PT VARIFIED ALL PT INFO FASTING:YES FASTING: YES Tracy Olivares MD LABORATORY Final Result Performing Organization Address [facility] Co de Phone Number [facility] [address] [place] [address] * CBC W/DIFF AUTOMATED (01/05/2021 12:51 PM [...] Result [facility] [address] [place] [address] * (ABNORMAL) COMPREHENSIVE METABOLIC PANEL (01/05/2021 12:51 PM CDT) Pathologist [facility] GLUCOSE 152(H) 65 - 99 mg/dL [facility] Comment: ? Fasting reference interval For someone without known diabetes, a glucose value >125 mg/dL indicates that they may have diabetes and this should be confirmed with a follow-up test. BUN 18 7 - 25 mg/dL [facility] CREATININE S/P/B 0.85 0.50 - 0.99 mg/dL [facility] Comment: For patients >49 years of age, the reference limit for Creatinine is approximately 13% higher for people identified as -Filipino. EGFR NON-AFR. AMER. 72 > OR = 60 mL/min/1 .73m2 [facility] EGFR AFR. AMER. 83 > OR = 60 mL/min/1 .73m2 [facility] BUN CREATININE RATIO NOT APPLICABLE 6 - 22 (calc) [facility] SODIUM S/P/B 140 135 - 146 mmol/L [facility] POTASSIUM S/P/B 4.2 3.5 - 5.3 mmol/L [facility] CHLORIDE S/P/B 103 98 - 110 mmol/L [facility] CO2 29 20 - 32 mmol/L [facility] CALCIUM S/P/B 9.6 8.6 - 10.4 mg/dL [facility] TOTAL PROTEIN S/P/B 7.1 6.1 - 8.1 g/dL [facility] ALBUMIN S/P/B 3.8 3.6 - 5.1 g/dL [facility] GLOBULIN 3.3 1.9 - 3.7 g/dL (calc) [facility] ALBUMIN/GLOBULIN RATIO 1.2 1.0 - 2.5 (calc) [facility] BILIRUBIN TOTAL S/P/B 0.4 0.2 - 1.2 mg/dL [facility] ALKALINE PHOSPHATASE S/P/B 121 37 - 153 U/L [facility] AST 13 10 - 35 U/L [facility] ALT 12 6 - 29 U/L [facility] 01/05/2021 12:5 1 PM CDT 01/05/2021 12:54 PM CDT Narrative [facility] - 01/06/2021 8:38 AM CDT PT VARIFIED ALL PT INFO FASTING:YES FASTING: YES Tracy Olivares MD LABORATORY Final Result [facility] [address] [address] [address] documented in this encounter Visit Diagnoses Not on filedocumented in this encounter Additional Health Concerns Assessment Noted Time PHQ-9 Depression Total Score: 6 01/06/20 21 12:11 PM CDT documented as of this encounter Care Teams Heater Operator Helper Relationship Specialty Start Date End Date Tracy Olivares MD [facility] [address] PCP - General INTERNAL MEDICINE 01/02/21 documented as of this encounter
--- OUTSIDE RECORDS SUMMARY | 2024-09-07 15:21 | XMS_ITS | Encounter Summary ---
Author Organization [facility] Address [address] [place] [address]. [address] [address] Care Team Providers Care Resource Paraprofessional Name Role Phone Unavailable Primary Care Provider Unavailabl e Encounter Details Date Type Department Care Team (Latest Contact Info) Description 10/25/2012 Abstract [facility] Medical [facility] Social History Tobacco Use Types [...] script sent via e-script for Mobic to [facility] in [place]. Called and spoke with Keegan and informed her ot the script. She has an f/u appt next week with [facility]. Signatures Electronically signed by : Bety Allen, ; Oct 25 2012 4:28PM (Author) Electronically signed by : Bety Allen, ; Oct 25 2012 4:46PM (Author) AROUND PATTERNMAKER documented in this encounter Plan of Treatment Upcoming Encounters Date Type Department Care Team (Late st Contact Info) Description 10/03/2024 11:00 AM ALL AROUND PATTERNMAKER Office Visit [facility] Medical [facility] Pulmonology Specialty Clinic - [address] [place] [address] Nathan Baig MD [address] [address] 11/14/2024 10:20 AM ALL AROUND PATTERNMAKER Office Visit [facility] Multispecialty Care - [place] [address] [address] [place] [address] Tracy Olivares MD 1188 [facility] [address] [place] [address] documented as of this encounter Visit Diagnoses Not on filedocumented in this encounter
--- OUTSIDE RECORDS SUMMARY | 2024-09-07 15:21 | XMS_ITS | Encounter Summary ---
Author Organization [facility] Address [address] [place] [address]. [address] [address] Care Team Providers Care Artist Consultant Name Role Phone Tracy Olivares MD Primary Care Provider [phone] Reason for Visit * Reason Onset Date Comments Other 04/13/2021 Encounter Details Date Type Department Care Team (Late st Contact Info) Description 04/13/2021 Telephone [facility] Medical Group Multispecialty Care - [place] [address] [address] [place] [address] Tracy Olivares MD [address] [place] [address] 157 [place] [address] Other Social History Tobacco Use [...] st Contact Info) Description 10/03/2024 11:00 AM ASSOCIATE MANAGER Office Visit [facility] Medical Group Pulmonology Specialty Clinic - [address] [address] Nathan Baig MD [address] [address] 11/14/2024 10:20 AM ASSOCIATE MANAGER Office Visit [facility] Medical Group Multispecialty Care - [place] [address] [place] [address] [address] [place] [address] Tracy Olivares MD [address] [place] [address] documented as of this encounter Visit Diagnoses Not on filedocumented in this encounter Additional Health Concerns Assessment Noted Time PHQ-9 Depression Total Score: 2 03/03/20 21 11:26 AM CDT documented as of this encounter Care Teams Artist Consultant Relationship Specialty Start Date End Date Tracy Olivares MD 1188 [facility] [address] [place] [address] PCP - General INTERNAL MEDICINE 01/02/21 documented as of this encounter
--- OUTSIDE RECORDS SUMMARY | 2024-09-07 15:21 | XMS_ITS | Encounter Summary ---
Author Organization [facility] Address [address] [place] [address]. [place] [id number] [place] [address] Care Team Providers Care Dental Insurance Coordinator Name Role Phone Tracy Olivares MD Primary Care Provider [phone] Reason for Visit * Reason Comments Follow Up 6 week f/u for michelle larsen. has noticed restless of her legs during sleep. Needs vaccines. Encounter Details Date Type Department Care Team (Latest Contact Info) Description 03/03/2021 10:00 AM CDT Office Visit [facility] Medical Group Multispecialty Care - [place] [address] [address] [place] [address] Tracy Olivares MD [address] [place] [address] 157 [place], [place] [id number] Follow Up (6 week f/u for depression. [...] May 22 at 90:20 am here in [place]. Continue with all medications as discussed. Get your Tdap done in a pharmacy in about one month in April 2021. Patient Education Patient Education Depression The Basics Written by the doctors and editors at [facility] What is depression???--??Depression is a disorder that [...] Counseling (with a psychiatrist, psychologist, nurse, or director social) ?? A device that passes magnetic waves [...] process is complete. This topic retrieved from [employer] on: Nov 11, 2020. Topic 15318 Version 14.0 Release: 29.1.3 - C29.60 ?2020??[employer] and/or its affiliates.??All rights reserved. figure 1: Mood disorders caused by problems in the brain Mood disorders, such as depression and bipolar disorder, are caused by chemical imbalances in the brain. Treatments for these conditions work by changing the chemistry of the brain. Graphic 68022 Version 3.0 Consumer Information Use and Disclaimer [...] that is right for you.The use of [employer] content is governed by the [employer] Terms of Use. ??2020 [employer]. All rights reserved. Copyright ?2020??[employer] and/or its affiliates.??All rights reserved. documented in [...] Streptococcus pneumoniae (pneumococcus) Z23 V03.82 REQUIRES VACCINATION [69795] Pneumovax 23 (Pneumococcal) 6. Encounter for hepatitis [...] prophylactic vaccination against Streptococcus pneumoniae (pneumococcus) - [75045] Pneumovax 23 (Pneumococcal) 6. Encounter for hepatitis [...] was at least in part performed using [employer] speak and there may be some inherent flaws in this director of claims due to the nature of this program. Tracy Olivares MD Internal Medicine [facility], [facility]. documented in this encounter Plan of Treatment Upcoming Encounters Date Type Department Care Team (Late st Contact Info) Description 10/03/2024 11:00 AM TRANSIT POLICE OFFICER Office Visit [facility] Medical [facility] Pulmonology Specialty Clinic - [place] [address] [facility] [address] [place] [address] Nathan Baig MD [address] [address] 11/14/2024 10:20 AM TRANSIT POLICE OFFICER Office Visit [facility] Medical [facility] Multispecialty Care - [place] [address] [facility] [address] [place] [address] Tracy Olivares MD 1188 [facility] [address] [place] [address] documented as of this encounter Procedures Procedure Name Priority Date/Time Associated Diagnosis Comments HEPATITIS C ANTIBODY Routine 03/03/2021 11:09 AM CDT Encounter for hepatitis C screening test for low risk patient documented in this encounter Results * HEPATITIS C ANTIBODY (03/03/2021 11:09 AM CDT) HEPATITIS C AB NON-REACTI VE NON-REACT PATRIA 03/04/2021 6:57 PM CDT [facility] Comment: ANTIBODIES TO HCV NOT DETECTED. DOES NOT EXCLUDE THE POSSIBILITY OF EXPOSURE TO HCV. 03/03/2021 11:0 9 AM CDT Tracy Olivares MD LABORATORY Final Result [facility] [address] [place] [address], [id number] documented in this encounter Visit Diagnoses Diagnosis [...] as of this encounter Care Teams Dental Insurance Coordinator Relationship Specialty Start Date End Date Tracy Olivares MD [address] [address] PCP - General INTERNAL MEDICINE 01/02/21 documented as of this encounter
--- OUTSIDE RECORDS SUMMARY | 2024-09-07 15:21 | XMS_ITS | Encounter Summary ---
Author Organization [facility] Address [address] [place] [address]. [place] [id number] [place] [address] Care Team Providers Care Senior Physician Name Role Phone Tracy Olivares MD Primary Care Provider [phone] Reason for Visit * Reason Onset Date Comments Follow Up Call 01/08/2021 Encounter Details Date Type Department Care Team (Late st Contact Info) Description 01/08/2021 Telephone [facility] Medical Group Multispecialty Care - [place] [address] [address] [place] [address] Tracy Olivares MD [address] [place] [address] 157 [place] [address] Follow Up Call Social History [...] questions answered. Tracy Olivares MD Internal Medicine [facility], [facility]. documented in this encounter Plan of Treatment Upcoming Encounters Date Type Department Care Team (Late st Contact Info) Description 10/03/2024 11:00 AM RESOURCE ENGINEER Office Visit [facility] Pulmonology Specialty Clinic - [address] [address] Nathan Baig MD [address] [place] [address] 11/14/2024 10:20 AM RESOURCE ENGINEER Office Visit [facility] Multispecialty Care - [place] [address] [address] [place] [address] Tracy Olivares MD [facility] [address] documented as of this encounter Visit Diagnoses Not on filedocumented in this encounter Additional Health Concerns Assessment Noted Time PHQ-9 Depression Total Score: 6 01/06/20 21 12:11 PM CDT documented as of this encounter Care Teams Senior Physician Relationship Specialty Start Date End Date Tracy Olivares MD [address] [place] [address] PCP - General INTERNAL MEDICINE 01/02/21 documented as of this encounter
--- OUTSIDE RECORDS SUMMARY | 2024-09-07 15:21 | XMS_ITS | Encounter Summary ---
Author Organization [facility] Address [address] [place] [address]. [place] [address] [place] [address] Care Team Providers Care Training And Development Manager Name Role Phone Unavailable Primary Care Provider Unavailabl e Encounter Details Date Type Department Care Team (Late st Contact Info) Description 08/21/2012 Abstract [facility] Medical Group Multispecialty Care - [facility] 3 [facility], [address] [place] [address] Ramiro Guzmán MD Social History [...] Comments Blood Pressure 131/67 08/21/2012 10:15 AM PHOTO LAB MANAGER Pulse 87 08/21/2012 10:15 AM PHOTO LAB MANAGER Temperature - - Respiratory Rate - - Oxygen Saturation - - Inhaled Oxygen Concentration - - Weight 131.1 kg (289 lb) 08/21/2012 10:15 AM PHOTO LAB MANAGER Height 170.2 cm (5' 7 ) 08/21/2012 10:15 AM PHOTO LAB MANAGER Body Mass Index 45.26 08/21/2012 10:15 AM PHOTO LAB MANAGER documented in this encounter Progress Notes [...] minutes. Greater than 50% of the total wdkh-hm-ttkh time spent in counselingand coordination of care. [...] Vitals Vital Signs [Data Includes: Current Encounter] [id number] 10:15AM Heart Rate 87 Systolic 131 Diastolic 67 BMI Calculated 45.36 BSA Calculated 2.36 Height 5 ft 7 in Weight 289 lb Assessment 1. Pain In The Arms 729.5 LEFT ARM PAIN Signatures Electronically signed by : Ramiro Guzmán M.D.; Aug 21 2012 10:47AM (Author) O LAB MANAGER documented in this encounter Plan of Treatment Upcoming Encounters Date Type Department Care Team (Late st Contact Info) Description 10/03/2024 11:00 AM PHOTO LAB MANAGER Office Visit [facility] Medical Group Pulmonology Specialty Clinic - [address] [address] Nathan Baig MD [address] [place] [address] 11/14/2024 10:20 AM PHOTO LAB MANAGER Office Visit [facility] Medical [facility] Multispecialty Care - [place] [address] [address] [place] [address] Tracy Olivares MD [address] [place] [address] 157 [place] [address] documented as of this encounter Visit Diagnoses Not on filedocumented in this encounter
--- OUTSIDE RECORDS SUMMARY | 2024-09-07 15:21 | XMS_ITS | Encounter Summary ---
Author Organization [facility] Address [address] [place] [address]. [place] [address] [place] [address] Care Team Providers Care Land Developer Name Role Phone Unavailable Primary Care Provider Unavailabl e Encounter Details Date Type Department Care Team (Late st Contact Info) Description 02/19/2013 Abstract [facility] Medical Group Multispecialty Care - [address], [address] [place] [address] Ramiro Guzmán MD Social History Tobacco Use [...] Activated; INHALE 1 PUFF TWICE DAILY; Therapy: (Recorded:[id number]) to 2. Aspirin 81 MG Oral Tablet; Therapy: (Recorded:24Jul2012) to 3. Ibuprofen 800 MG Oral Tablet; TAKE 1 TABLET BY MOUTH EVERY 6 HOURS; Therapy: 24Feb2012 to 4. Losartan Potassium-HCTZ 100-12.5 MG Oral Tablet; TAKE 1 TABLET BY MOUTH EVERY DAY; Therapy: 18Jan2012 to 5. Meloxicam 7.5 MG Oral Tablet; TAKE 1 TABLET TWICE DAILY; Therapy: [id number] to (Evaluate:24Nov2012) Requested for: [id number]; Last Rx:[id number] Allergies 1. Aspirin TABS 2. Darvon CAPS LEWARE SYSTEMS ARCHITECT documented in this encounter Plan of Treatment Upcoming Encounters Date Type Department Care Team (Late st Contact Info) Description 10/03/2024 11:00 AM MIDDLEWARE SYSTEMS ARCHITECT Office Visit [facility] Medical Group Pulmonology Specialty Clinic - [address] [place] [address] Nathan Baig MD [address] [place] [address] 11/14/2024 10:20 AM MIDDLEWARE SYSTEMS ARCHITECT Office Visit [facility] Medical Group Multispecialty Care - [address] [place] [address] Tracy Olivares MD 118[address] [facility] [address] [place] [address] documented as of this encounter Visit Diagnoses Not on filedocumented in this encounter
--- OUTSIDE RECORDS SUMMARY | 2024-09-07 15:21 | XMS_ITS | Encounter Summary ---
Author Organization [facility] Address [address] [place] [address]. [place], [place] [address] [place] [address] Care Team Providers Care Quantitative Developer Name Role Phone Unavailable Primary Care Provider Unavailabl e Encounter Details Date Type Department Care Team (Latest Contact Info) Description 01/11/2013 Abstract [facility] Medical Group Social History Tobacco Use Types [...] Info) Description 10/03/2024 11:00 AM DIRECTOR OF HOME CARE HOSPICE Office Visit [facility] Medical Group Pulmonology Specialty Clinic - [address] [address] Nathan Baig MD [address] [place] [address] 11/14/2024 10:20 AM DIRECTOR OF HOME CARE HOSPICE Office Visit [facility] Medical Group Multispecialty Care - [place] [address] [address] [place] [address] Tracy Olivares MD [address] [place] [address] documented as of this encounter Visit Diagnoses Not on filedocumented in this encounter
--- OUTSIDE RECORDS SUMMARY | 2024-09-07 15:21 | XMS_ITS | Encounter Summary ---
Author Organization [facility] Address [address] [place] [address]. [address] [address] Care Team Providers Care Children'S Librarian Name Role Phone Tracy Olivares MD Primary Care Provider [phone] Reason for Referral * Physical Medicine (Routine) - Closed Specialty Diagnoses / Procedures Referred By Contac t Referred To Contact PHYSICAL THERAPY / [facility] Physical Therapy Diagnoses Chronic bilateral low back pain with [place] [address] [place] [address] Phone: tel: fax: [facility] Physical Therapy [facility] [address] [address] Phone: tel: fax: Referral ID Status Reason Start Date Expiration Date V isits Requested Visits Authorized [id number] Closed Physical Therapy 04/27/2021 05/27/2022 6 6 Reason for Visit * Reason Comments Sting states she was stung twice last tuesday, once on her hand and right leg Low Back Pain she would like a ref erral for PT for low back pain Encounter Details Date Type Department Care Team (Latest Contact Info) Description 04/27/2021 11:00 AM CDT Office Visit [facility] Medical Group Multispecialty Care - [place] [address] [place] [address] [address] [place] [address] Tracy Olivares MD [address] [facility] [address] [place] [address] Sting (states she was stung twice last [...] doctor may have you work with a hearing dog trainer, chiropractor or physical therapist to make [...] your doctor. Where can I learn more? [employer] [employer] http://orthoinfo.aaos.org/topic.cfm?dcxfz=S03983 Last Reviewed Date 2020-11-27 Consumer Information Use [...] right for you. Copyright Copyright ?? 2020 [employer]. and its affiliates and/or licensors. All rights [...] on your itchy skin. ?? Use an kbss-yca-irvtqcv cream or ointment to help with itching. [...] my bite. Where can I learn more? [employer] https://familydoctor.org/bug-bites/ [employer] http://kidshealth.org/parent/_summerspotlight/_parks/insect_bite.html NHS Choices https://www.nhs.uk/conditions/qfxdhh-fcakq-ptn-stings/ Last Reviewed Date 2021-02-17 Consumer Information Use [...] right for you. Copyright Copyright ?? 2020 [employer]. and its affiliates and/or licensors. All rights [...] initially very painful. Patient started taking Benadryl dogi-slg-yiceieh with mild improvement in symptoms/itching. Notes ongoing itching. Has some Benadryl at home. Denies any shortness of breath, cough or wheezing or hoarseness of voice. Notes mild pain of the right hand andposterior right ankle. Denies any fever or chills. Patient was recently seen for worsening low back pain. Patient tells me pain is a little better after adding [place] to medications. Does not want any refills on the [place]. She is interested in physical therapy. Denies [...] was at least in part performed using [employer] and there may be some inherent flaws in this guide rail cleaner due to the nature of this program. Tracy Olivares MD Internal Medicine [facility], [facility]. documented in this encounter Plan of Treatment Upcoming Encounters Date Type Department Care Team (Late st Contact Info) Description 10/03/2024 11:00 AM EVICTION SPECIALIST Office Visit [facility] Medical Group Pulmonology Specialty Clinic - [address] [address] Nathan Baig MD [address] [place] [address] 11/14/2024 10:20 AM EVICTION SPECIALIST Office Visit [facility] Medical Group Multispecialty Care - [place] [address] [address] [place] [address] Tracy Olivares MD [address] [place] [address] Scheduled Referrals Name Type Priority Associated Diagnoses [...] as of this encounter Care Teams Children'S Librarian Relationship Specialty Start Date End Date Tracy Olivares MD [address] [address] PCP - General INTERNAL MEDICINE 01/02/21 documented as of this encounter
--- OUTSIDE RECORDS SUMMARY | 2024-09-07 15:21 | XMS_ITS | Encounter Summary ---
Author Organization [facility] Address [address] [place] [address]. [place] [address] [place] [address] Care Team Providers Care Earth Boring Machine Operator Name Role Phone Unavailable Primary Care Provider Unavailabl e Encounter Details Date Type Department Care Team (Late st Contact Info) Description 12/11/2012 Abstract [facility] Medical Group Multispecialty Care - [address], [address] [place] [id number] Ramiro Guzmán MD Social History Tobacco Use [...] IS GOING TO HAVE HYST... 12/31/12... HER SUBMARINE OPERATOR DOCTOR WANTS TO KNOW IF SHE IS [...] in the next few weeks and her SHEET ROCKER is seeking spinal clearance. Apparently she will [...] the next few weeks to facilitate her SUBMARINE OPERATOR procedure. Total time of visit 15 minutes. [...] Tablet; TAKE 1 TABLET TWICE DAILY; Therapy: [id number] to (Evaluate:24Nov2012) Requested for: [id number]; Last Rx:[id number] Allergies 1. Aspirin TABS 2. Darvon CAPS Vitals 11Dec2012 12:09PM Heart Rate 75 Systolic 134 Diastolic 73 BMI Calculated 45.36 BSA Calculated 2.36 Height 5 ft 7 in Weight 289 lb Assessment 1. Lower Back Pain 724.2 Signatures Electronically signed by : Ramiro Guzmán M.D.; Dec 11 2012 12:32PM (Author) MENTAL METAL ERECTOR APPRENTICE documented in this encounter Plan of Treatment Upcoming Encounters Date Type Department Care Team (Late st Contact Info) Description 10/03/2024 11:00 AM ORNAMENTAL METAL ERECTOR APPRENTICE Office Visit [facility] Medical [facility] Specialty [facility] - [address] [address] Nathan Baig MD [address] [place] [address] 11/14/2024 10:20 AM ORNAMENTAL METAL ERECTOR APPRENTICE Office Visit [facility] Medical [facility] Multispecialty Care - [place] [address] [address] [place] [address] Tracy Olivares MD [address] [address] documented as of this encounter Visit Diagnoses Not on filedocumented in this encounter
--- OUTSIDE RECORDS SUMMARY | 2024-09-07 15:21 | XMS_ITS | Encounter Summary ---
Author Organization [facility] Address [address] [place] [address]. [place], [place] [address] [place] [address] Care Team Providers Care Senior Buyer Planner Name Role Phone Tracy Olivares MD Primary Care Provider [phone] Encounter Details Date Type Department Care Team [...] st Contact Info) Description 10/03/2024 11:00 AM LIVESTOCK FARMWORKER Office Visit [facility] Medical Group Pulmonology Specialty Clinic - [place] [address] [place] [address] Nathan Baig MD [address] [place] [address] 11/14/2024 10:20 AM LIVESTOCK FARMWORKER Office Visit [facility] Medical Group Multispecialty Care - [place] [address] [address] [place] [address] [place] [address] [place] [address] documented as of this encounter Visit Diagnoses Not on filedocumented in this encounter Additional Health Concerns Assessment Noted Time PHQ-9 Depression Total Score: 6 01/06/20 21 12:11 PM CDT documented as of this encounter Care Teams Senior Buyer Planner Relationship Specialty Start Date End Date Tracy Olivares MD [address] [place] [address] PCP - General INTERNAL MEDICINE 01/02/21 documented as of this encounter
--- OUTSIDE RECORDS SUMMARY | 2024-09-07 15:21 | XMS_ITS | Encounter Summary ---
Author Organization [facility] Address [address] [place] [address]. [place], [place] [address] [place] [address] Care Team Providers Care Etcher Machine Name Role Phone Unavailable Primary Care Provider Unavailabl e Encounter Details Date Type Department Care Team (Late st Contact Info) Description 03/20/1999 Abstract [facility] CONVERSION [address] [place] [address] , Generic MD Clarence Social History Tobacco [...] st Contact Info) Description 10/03/2024 11:00 AM TONGUE AND GROOVE MACHINE SETTER Office Visit [facility] Medical Group Pulmonology Specialty Clinic - [address] [address] Nathan Baig MD [address] [place] [address] 11/14/2024 10:20 AM TONGUE AND GROOVE MACHINE SETTER Office Visit [facility] Medical Group Multispecialty Care - [place] [address] [address] [place] [address] Tracy Olivares MD [address] [place] [address] documented as of this encounter Visit Diagnoses Not on filedocumented in this encounter
--- OUTSIDE RECORDS SUMMARY | 2024-09-07 15:21 | XMS_ITS | Encounter Summary ---
Author Organization [facility] Address [address] [place] [address]. [place], [place] [address] [place] [address] Care Team Providers Care Grain Merchandiser Name Role Phone Unavailable Primary Care Provider Unavailabl e Encounter Details Date Type Department Care Team (Late st Contact Info) Description 03/13/1999 Abstract [facility] CONVERSION [address] [place] [address] , Generic MD Clarence Social History Tobacco [...] st Contact Info) Description 10/03/2024 11:00 AM CAMP ASSISTANT Office Visit [facility] Medical Group Pulmonology Specialty Clinic - [address] [address] Nathan Baig MD [address] [place] [address] 11/14/2024 10:20 AM CAMP ASSISTANT Office Visit [facility] Medical Group Multispecialty Care - [place] [address] [address] [place] [address] Tracy Olivares MD [address] [place] [address] documented as of this encounter Visit Diagnoses Not on filedocumented in this encounter
--- OUTSIDE RECORDS SUMMARY | 2024-09-07 15:21 | XMS_ITS | Encounter Summary ---
Author Organization [facility] Address [address] [place] [address]. [place], [place] [address] [place] [address] Care Team Providers Care Leadership Program Associate Name Role Phone Tracy Olivares MD Primary Care Provider [phone] Reason for Referral * Consultation (Routine) - Closed Specialty Diagnoses / Procedures Referred By Contac t Referred To Contact SLEEP & RESPIRATORY CARE Diagnoses FAISAL on CPAP Tracy Olivares MD [address] [place] [address] Phone: tel: fax: Nathan Baig MD [address] [place] [address] Phone: tel: fax: Referral ID Status Reason Start Date Expiration Date V isits Requested Visits Authorized [id number] Closed Specialty Services 01/21/2021 02/22/2022 1 1 Scheduling Instructions APPT 05/22/21 Reason for Visit * Reason Onset Date Comments Referral Request 01/21/2021 Encounter Details Date Type Department Care Team (Late st Contact Info) Description 01/21/2021 Telephone [facility] Medical Group Multispecialty Care - [place] [address] [address] [place] [address] Tracy Olivares MD [address] [place] [address] Referral Request Social History Tobacco Use [...] st Contact Info) Description 10/03/2024 11:00 AM CAUSTIC ROOM OPERATOR Office Visit [facility] Medical Group Pulmonology Specialty Clinic - [address] [address] Nathan Baig MD [address] [place] [address] 11/14/2024 10:20 AM CAUSTIC ROOM OPERATOR Office Visit [facility] Medical Group Multispecialty Care - [place] [address] [address] [place] [address] Tracy Olivares MD [address] [place] [address] [address] [place] [address] Scheduled Referrals Name Type Priority Associated Diagnoses Orde r Schedule Ambulatory referral to Pulmonology ([facility]) Referral Routine FAISAL on CPAP Ordered: 01/21/2021 documented as of this encounter Visit Diagnoses Diagnosis FAISAL on CPAP- Primary Obstructive sleep apnea (adult) (pediatric) documented in this encounter Additional Health Concerns Assessment Noted Time PHQ-9 Depression Total Score: 6 01/06/20 21 12:11 PM CDT documented as of this encounter Care Teams Leadership Program Associate Relationship Specialty Start Date End Date Tracy Olivares MD [address] [address] PCP - General INTERNAL MEDICINE 01/02/21 documented as of this encounter
--- OUTSIDE RECORDS SUMMARY | 2024-09-07 15:21 | XMS_ITS | Encounter Summary ---
Author Organization [facility] Address [address] [place] [address]. [place], [place] [address] [place] [address] Care Team Providers Care Senior Tax Accountant Name Role Phone Tracy Olivares MD Primary Care Provider [phone] Reason for Visit * Reason Comments Colonoscopy Report (SCAN) Encounter Details Date Type Department Care Team ([facility] Contact Info) Description 05/26/2020 Scan [facility] [...] Upcoming Encounters Date Type Department Care Team ([facility] Contact Info) Description 10/03/2024 11:00 AM SUPERVISOR DOG LICENSE OFFICER Office Visit [facility] Medical Group Pulmonology Specialty Clinic - [address] [place] [address] Nathan Baig MD [address] [place] [address] 11/14/2024 10:20 AM SUPERVISOR DOG LICENSE OFFICER Office Visit [facility] Medical Group Multispecialty Care - [place] [address] [address] [place] [address] Tracy Olivares MD [address] [address] documented as of this encounter Procedures Procedure Name Priority Date/Time Associated Diagnosis Comments COLONOSCOPY GENERIC (SCAN ORDER) 05/26/2020 documented in this encounter Results * COLONOSCOPY GENERIC (05/26/2020) 05/26/2020 Narrative 05/26/2020 Ordered by an unspecified provider. us Documents Scanned SCANNING Final Result documented in this encounter Visit Diagnoses Not on filedocumented in this encounter Care Teams Senior Tax Accountant Relationship Specialty Start Date End Date Tracy Olivares MD [address] [address] PCP - General INTERNAL MEDICINE 01/02/21 documented as of this encounter
--- OUTSIDE RECORDS SUMMARY | 2024-09-07 15:21 | XMS_ITS | Encounter Summary ---
Author Organization [facility] Address [address] [place] [address]. [place], [place] [address] [place] [address] Care Team Providers Care Library Services Dean Name Role Phone Tracy Olivares MD Primary Care Provider [phone] Encounter Details Date Type Department Care Team [...] st Contact Info) Description 10/03/2024 11:00 AM ORACLE HRMS CONSULTANT Office Visit [facility] Medical Group Pulmonology Specialty Clinic - [place] [address] [place] [address] Nathan Baig MD [address] [place] [address] 11/14/2024 10:20 AM ORACLE HRMS CONSULTANT Office Visit [facility] Medical Group Multispecialty Care - [place] [address] [address] [place] [address] [place] [address] [place] [address] documented as of this encounter Visit Diagnoses Not on filedocumented in this encounter Additional Health Concerns Assessment Noted Time PHQ-9 Depression Total Score: 6 01/06/20 21 12:11 PM CDT documented as of this encounter Care Teams Library Services Dean Relationship Specialty Start Date End Date Tracy Olivares MD [address] [place] [address] PCP - General INTERNAL MEDICINE 01/02/21 documented as of this encounter
--- OUTSIDE RECORDS SUMMARY | 2024-09-07 15:21 | XMS_ITS | Encounter Summary ---
Author Organization [facility] Address [address] [place] [address]. 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 Chronic left shoulder pain Tracy Olivares MD [address] [place], [place] [phone] Phone: tel: fax: [facility] Physical Therapy [address] [place] [address] Phone: tel: fax: Referral ID Status Reason Start Date Expiration Date V isits Requested Visits Authorized [id number] Closed Physical Therapy 01/20/2021 02/19/2022 10 10 [...] Description 01/20/2021 10:00 AM CDT Office Visit [facility] Medical Group Multispecialty [address] [place] [address] Tracy Olivares MD [address] [facility] [address] [place] [address] ER F/U (follow up from ER for [...] Please get your bone scan done at [facility] as planned. Patient Education Patient Education Back [...] doctor may have you work with a assistant athletic trainer or physical therapist to make a [...] your doctor. Where can I learn more? [employer] [employer] http://orthoinfo.aaos.org/topic.cfm?sfsnx=W88762 NHS https://www.nhs.uk/live-well/exercise/buvdz-bzkg-bgal-exercises/ Last Reviewed Date 2019-05-23 Consumer Information Use [...] right for you. Copyright Copyright ?? 2020 [employer]. and its affiliates and/or licensors. All rights reserved. Patient Education Patient Education Depression The Basics Written by the doctors and editors at [employer] What is depression???--??Depression is a disorder that [...] Counseling (with a psychiatrist, psychologist, nurse, or high school social studies teacher) ?? A device that passes magnetic waves [...] process is complete. This topic retrieved from [employer] on: Nov 11, 2020. Topic 69603 Version 14.0 Release: 29.1.3 - C29.60 ?2020??[employer]. and/or its affiliates.??All rights reserved. figure 1: Mood disorders caused by problems in the brain Mood disorders, such as depression and bipolar disorder, are caused by chemical imbalances in the brain. Treatments for these conditions work by changing the chemistry of the brain. Graphic 32885 Version 3.0 Consumer Information Use and Disclaimer [...] that is right for you.The use of [employer] content is governed by the [employer] Terms of Use. ??202 [employer]. All rights reserved. Copyright ?2020??[employer] and/or its affiliates.??All rights reserved. Patient Education Patient Education Diet and Health The Basics Written by the doctors and editors at [facility] Why is it important to eat a [...] process is complete. This topic retrieved from [employer] on: Nov 11, 2020. Topic 45151 Version 20.0 Release: 29.1.3 - C29.60 ?2020??[employer] and/or its affiliates.??All rights reserved. figure 1: Nutrition label - fiber This is an example of a nutrition label. To figure out how much fiber is in a food, look for the line that says Dietary Fiber. It's also important to look at the serving size. This food has 7 gramsof fiber in each serving, and each serving is 1 cup. Graphic 79868 Version 7.0 figure 2: Foods and drinks with calcium and vitamin D Foods rich in calcium include ice cream, soy milk, breads, kale, broccoli, milk, cheese, cottage cheese, almonds, yogurt, tawzz-zp-muh cereals, beans, and tofu. Foods rich in vitamin D include milk, canned tuna fish, cod liver oil, yogurt, bxyrj-zp-bpw-cereals, cooked salmon, canned sardines, mackerel, and eggs. Some of these foods are rich in both. Graphic 18644 Version 3.0 Consumer Information Use and Disclaimer [...] that is right for you.The use of [employer] content is governed by the [employer] Terms of Use. ??2020 [employer]. All rights reserved. Copyright ?2020??[employer] and/or its affiliates.??All rights reserved. documented in [...] Patient was recently in the ER at [facility] for severe right lower extremity and [...] to get her bone scan done at [facility]- patient given number to call to [...] ??? vitamin D2, ergocalciferol, (VITAMIN D, ERGOCALCIFEROL,) 34609 UNITS capsule ergocalciferol (vitamin D2) 1,250 mcg [...] (BMI) of 50.0 to 59.9 in adult ([facility]) E66.01 278.01 SEVERE OBESITY Z68.43 V85.43 3. Chronic left shoulder pain M25.512 719.41 CHRONIC PAIN OF LEFT UPPER LIMB tiZANidine 2 MG tablet G89.29 338.29 Ambulatory referral to Physical Therapy lidocaine 5 % 4. Moderate episode of recurrent major depressive disorder ([facility]) F33.1 296.32 RECURRENT MAJOR DEPRESSIVE EPISODES, MODERATE [...] (BMI) of 50.0 to 59.9 in adult ([facility]) - counseled to start making lifestyle modification [...] Moderate episode of recurrent major depressive disorder ([facility]) - patient not tolerating Cymbalta - change [...] was at least in part performed using [employer] and there may be some inherent flaws in this general supervisor due to the nature of this program. Tracy Olivares MD Internal Medicine [facility], [facility]. documented in this encounter Plan of Treatment Upcoming Encounters Date Type Department Care Team (Late st Contact Info) Description 10/03/2024 11:00 AM SIGNAL CONSTRUCTOR Office Visit [facility] Medical Group Pulmonology Specialty Clinic - [address] [address] Nathan Baig MD [address] [place] [address] 11/14/2024 10:20 AM SIGNAL CONSTRUCTOR Office Visit [facility] Medical Group Multispecialty Care - [place] [address] [address] [place] [address] Tracy Olivares MD [address] [place] [address] Scheduled Referrals Name Type Priority Associated Diagnoses [...] (BMI) of 50.0 to 59.9 in adult ([facility]) Chronic left shoulder pain Pain in joint, shoulder region Moderate episode of recurrent major depressive disorder ([facility]) Generalized anxiety disorder documented in this encounter Additional Health Concerns Assessment Noted Time PHQ-9 Depression Total Score: 6 01/06/20 21 12:11 PM CDT documented as of this encounter Care Teams Compounder Sterile Products Relationship Specialty Start Date End Date Tracy Olivares MD [address] [address] PCP - General INTERNAL MEDICINE 01/02/21 documented as of this encounter
--- OUTSIDE RECORDS SUMMARY | 2024-09-07 15:21 | XMS_ITS | Encounter Summary ---
Author Organization [facility] Address [address] [place] [address]. [place], [place] [address] [place] [address] Care Team Providers Care Bank Cashier Name Role Phone Unavailable Primary Care Provider Unavailabl e Encounter Details Date Type Department Care Team (Latest Contact Info) Description 07/25/2012 Abstract [facility] Medical Group Social History Tobacco Use Types [...] st Contact Info) Description 10/03/2024 11:00 AM URGENT CARE PHYSICIAN ASSISTANT Office Visit [facility] Medical Group Pulmonology Specialty Clinic - [address] [address] Nathan Baig MD [address] [place] [address] 11/14/2024 10:20 AM URGENT CARE PHYSICIAN ASSISTANT Office Visit [facility] Medical Group Multispecialty Care - [place] [address] [address] [place] [address] Tracy Olivares MD [address] [place] [address] documented as of this encounter Visit Diagnoses Not on filedocumented in this encounter
--- OUTSIDE RECORDS SUMMARY | 2024-09-07 15:21 | XMS_ITS | Encounter Summary ---
Author Organization [facility] Address [address] [place] [address]. [place] [id number] Care Team Providers Care Bed And Breakfast Operator Name Role Phone Tracy Olivares MD Primary Care Provider [phone] Reason for Visit * Reason Onset Date Comments Results 01/06/2021 colonoscopy repo rt 2020 Encounter Details Date Type Department Care Team (Late st Contact Info) Description 01/06/2021 Telephone [facility] Medical Group Multispecialty Care - [address] [place] [address] [place] [address] [place] [address] 157 [place] [address] Results (colonoscopy report 2020) Social [...] Notes * Tracy Olivares MD - 01/06/2021 10:26 AM CDT Received records for patient colonoscopy done on 05/26/2020. Normal colonoscopy, recommend high fiber dieet, repeat scope in 10 years. Scanned to media tab. Tracy Olivares MD Internal Medicine [facility], [facility]. documented in this encounter Plan of Treatment Upcoming Encounters Date Type Department Care Team (Late st Contact Info) Description 10/03/2024 11:00 AM SKIRT CLIPPER Office Visit [facility] Pulmonology Specialty Clinic - [address] [address] Nathan Baig MD [address] [place] [address] 11/14/2024 10:20 AM SKIRT CLIPPER Office Visit [facility] Multispecialty Care - [place] [address] [address] [place] [address] Tracy Olivares MD [facility] [address] [address] documented as of this encounter Visit Diagnoses Not on filedocumented in this encounter Additional Health Concerns Assessment Noted Time PHQ-9 Depression Total Score: 6 01/06/20 21 12:11 PM CDT documented as of this encounter Care Teams Bed And Breakfast Operator Relationship Specialty Start Date End Date Tracy Olivares MD [address] [place] [address] PCP - General INTERNAL MEDICINE 01/02/21 documented as of this encounter
--- OUTSIDE RECORDS SUMMARY | 2024-09-07 15:21 | XMS_ITS | Encounter Summary ---
Author Organization [facility] Address [address] [place] [address]. [place], [place] [address] [place] [address] Care Team Providers Care Hazmat Cdl A Driver Name Role Phone Unavailable Primary Care Provider Unavailabl e Encounter Details Date Type Department Care Team (Latest Contact Info) Description 11/03/2012 Abstract [facility] Medical Group Social History Tobacco Use Types [...] st Contact Info) Description 10/03/2024 11:00 AM PROGRAM SUPPORT ASSISTANT Office Visit [facility] Medical Group Pulmonology Specialty Clinic - [address] [address] Nathan Baig MD [address] [place] [address] 11/14/2024 10:20 AM PROGRAM SUPPORT ASSISTANT Office Visit [facility] Medical Group Multispecialty Care - [place] [address] [address] [place] [address] Tracy Olivares MD [address] [place] [address] documented as of this encounter Visit Diagnoses Not on filedocumented in this encounter
--- OUTSIDE RECORDS SUMMARY | 2024-09-07 15:21 | XMS_ITS | Encounter Summary ---
Author Organization [facility] Address [address] [place] [address]. [place], [place] [address] [place] [address] Care Team Providers Care Insurance Commissioner Name Role Phone Tracy Olivares MD Primary Care Provider [phone] Reason for Referral * Consultation/Treatment (Routine) - Closed Specialty Diagnoses / Procedures Referred By Heidi iverson Referred To Contact EYE CARE Diagnoses Encounter for vision screening Suzan Strauss NP [address] [address] Phone: tel: fax: Referral ID Status Reason Start Date Expiration Date V isits Requested Visits Authorized [id number] Closed Specialty Services 01/19/2021 07/18/2021 1 1 Reason for Visit * Reason Onset Date Comments Referral 01/12/2021 eye screening Encounter Details Date Type Department Care Team (Late st Contact Info) Description 01/12/2021 Telephone [facility] Multispecialty Care - [address] [place] [address] Suzan Strauss NP Referral (eye screening) Social [...] Contact Info) Description 10/03/2024 11:00 AM COLD WORK OPERATOR Office Visit [facility] Pulmonology Specialty Clinic - [address] [address] Nathan Baig MD [address] [place] [address] 11/14/2024 10:20 AM COLD WORK OPERATOR Office Visit [facility] Multispecialty Care - [place] [address] [address] [address] [place] [address] Tracy Olivares MD [facility] [address] [address] Scheduled Referrals Name Type Priority Associated Diagnoses [...] as of this encounter Care Teams Insurance Commissioner Relationship Specialty Start Date End Date Tracy Olivares MD [address] [place] [address] PCP - General INTERNAL MEDICINE 01/02/21 documented as of this encounter
--- OUTSIDE RECORDS SUMMARY | 2024-09-07 15:21 | XMS_ITS | Encounter Summary ---
Author Organization [facility] Address [address] [place] [address]. [place], [place] [address] [place] [address] Care Team Providers Care Oncology Pharmacist Name Role Phone Tracy Olivares MD Primary Care Provider [phone] Encounter Details Date Type Department Care Team [...] st Contact Info) Description 10/03/2024 11:00 AM PHYSIOTHERAPY ASSISTANT Office Visit [facility] Pulmonology Specialty Clinic - [place] [address] [place] [address] Nathan Baig MD [address] [address] 11/14/2024 10:20 AM PHYSIOTHERAPY ASSISTANT Office Visit [facility] Multispecialty Care - [place] [address] [address] [place] [address] [place] [address] [place] [address] documented as of this encounter Visit Diagnoses Not on filedocumented in this encounter Additional Health Concerns Assessment Noted Time PHQ-9 Depression Total Score: 9 04/14/20 10:21 AM CDT documented as of this encounter Care Teams Oncology Pharmacist Relationship Specialty Start Date End Date Tracy Olivares MD [address] [place] [address] PCP - General INTERNAL MEDICINE 01/02/21 documented as of this encounter
--- OUTSIDE RECORDS SUMMARY | 2024-09-07 15:21 | XMS_ITS | Encounter Summary ---
Author Organization [facility] Address [address] [place] [address]. [address] [address] Care Team Providers Care Lunchroom Aide Name Role Phone Tracy Olivares MD Primary Care Provider [phone] Reason for Visit * Reason Comments Lumbar Radiculopathy * Physical Medicine (Routine) - Closed Specialty Diagnoses / Procedures Referred By Contac t Referred To Contact PHYSICAL THERAPY / [facility] Physical Therapy Diagnoses Low back pain due to bilateral sciatica Chronic [place] [address] [place] [address] Phone: tel: fax: [facility] Physical Therapy [address] [address] Phone: tel: fax: Referral ID Status Reason Start Date Expiration Date V isits Requested Visits Authorized [id number] Closed Physical Therapy 01/20/2021 02/19/2022 10 10 Encounter Details Date Type Department Care Team (Latest Contact Info) Description 02/16/2021 10:15 AM CDT Office Visit [facility] Physical Therapy [address] [address] Tracy Olivares MD [address] [address] Darlene Rodgers PT Lumbar Radiculopathy [...] shoulder WFL and painfree Therapeutic Exercise - 07264 Number of Minutes - 03744: 15 Exercise: R piriformis stretch in supine x 3 with 20 sec hold Exercise: R calf stretch in standing x 3 with 20 sec hold Exercise: L shoulder AROM all planes Exercise: R hip flexor stretch in standing x 3 with 20 sec hold Exercise: LTR in painfree range x 10 Manual Therapy - 63640 Number of Minutes - 89400: 25 Intervention: soft tissue mobilization to R calf, hamstrings, piriformis, QL and lumbar paraspinals Education Was Education Provided: Yes Topic: why wearing heels increases low back pain Recipient: Patient Method: Verbal Response: Verbalized understanding ASSESSMENT Assessment Note: Marked improvement in L shoulder pain and ROM since initial eval. Pt had low back and R LE pain after wearing heels to buddhism yesterday, but otherwise has not had pain [...] Contact Info) Description 10/03/2024 11:00 AM MARKETING CO OP Office Visit [facility] Pulmonology Specialty Clinic - [address] [address] Nathan Baig MD [address] [place] [address] 11/14/2024 10:20 AM MARKETING CO OP Office Visit [facility] Medical [facility] Multispecialty Care - [place] [address] [address] [address] [place] [address] Tracy Olivares MD [facility] [address] [address] documented as of this encounter Visit Diagnoses Diagnosis Low back pain with right-sided sciatica- Primary Chronic left shoulder pain Pain in joint, shoulder region documented in this encounter Additional Health Concerns Assessment Noted Time PHQ-9 Depression Total Score: 6 01/06/20 21 12:11 PM CDT documented as of this encounter Care Teams Lunchroom Aide Relationship Specialty Start Date End Date Tracy Olivares MD [address] [place] [address] PCP - General INTERNAL MEDICINE 01/02/21 documented as of this encounter
--- OUTSIDE RECORDS SUMMARY | 2024-09-07 15:21 | XMS_ITS | Encounter Summary ---
Author Organization [facility] Address [address] [place] [address]. [place], [place] [address] [place] [address] Care Team Providers Care Mission Analyst Name Role Phone Unavailable Primary Care Provider Unavailabl e Encounter Details Date Type Department Care Team (Late st Contact Info) Description 03/30/1999 Abstract [facility] CONVERSION [address] [place] [address] , Generic MD Clarence Social History Tobacco [...] st Contact Info) Description 10/03/2024 11:00 AM FERRY PILOT Office Visit [facility] Pulmonology Specialty Clinic - [address] [address] Nathan Baig MD [address] [place] [address] 11/14/2024 10:20 AM FERRY PILOT Office Visit [facility] Multispecialty Care - [place] [address] [address] [place] [address] Tracy Olivares MD [address] [place] [address] documented as of this encounter Visit Diagnoses Not on filedocumented in this encounter
--- OUTSIDE RECORDS SUMMARY | 2024-09-07 15:21 | XMS_ITS | Encounter Summary ---
Author Organization [facility] Address [address] [place] [address]. [place], [place] [address] [place] [address] Care Team Providers Care Lamination Technician Name Role Phone Unavailable Primary Care Provider Unavailabl e Encounter Details Date Type Department Care Team (Latest Contact Info) Description 02/21/2012 Abstract [facility] Social History Tobacco [...] st Contact Info) Description 10/03/2024 11:00 AM ENTRY LEVEL Office Visit [facility] Pulmonology Specialty Clinic - [address] [address] Nathan Baig MD [address] [place] [address] 11/14/2024 10:20 AM ENTRY LEVEL Office Visit [facility] Multispecialty Care - [place] [address] [address] [address] [place] [address] Tracy Olivares MD [address] [place] [address] documented as of this encounter Visit Diagnoses Not on filedocumented in this encounter
--- OUTSIDE RECORDS SUMMARY | 2024-09-07 15:21 | XMS_ITS | Encounter Summary ---
Author Organization [facility] Address [address] [place] [address]. [place], [place] [address] [place] [address] Care Team Providers Care Quality Control Microbiology Supervisor Name Role Phone Tracy Olivares MD Primary Care Provider [phone] Reason for Referral * Imaging (Routine) - Closed Specialty Diagnoses / Procedures Referred By Contac t Referred To Contact RADIOLOGY Diagnoses Menopause Procedures BONE DENSITY/DEXA BONE DENSITY/DEXA Tracy Olivares MD [address] [address] Phone: tel: fax: [facility] [address] Phone: tel: fax: Referral ID Status Reason Start Date Expiration Date Visits Re quested Visits Authorized [id number] Closed 01/05/2021 02/04/2022 1 1 * Consultation (Routine) - Closed Specialty Diagnoses / Procedures Referred By Contact Referred To Contact [facility]EP [facility] RESPIRATORY [facility]ARE Diagnoses FAISAL on CPAP Tracy Olivares MD [address] [address] Phone: tel: fax: [facility] Pulmonology Specialty Clinic - [address] [address] Phone: tel: fax: Referral ID Status Reason Start Date Expiration Date Visits Re quested Visits Authorized [id number] Closed 05/16/2021 11/12/2021 6 6 Reason for Visit * Reason Comments New Patient estalbish care Encounter Details Date Type Department Care Team (Latest Contact Info) Description 01/05/2021 10:40 AM CDT Office Visit [facility] Multispecialty Care - [address] [place] [address] Tracy Olivares MD 1188 [facility] [address] [place], [place] [phone] New Patient (estalbish care) Social History Tobacco [...] of your medical needs! Welcome to the [facility] in [place]! Please get your blood work done as discussed if applicable. You will received a call once your results come in if applicable. Please follow up with any other health appointments you may have with other health specialists if applicable. As always, if you have any questions please feel free to use [employer] or call our front desk specialist at [phone]. Our Fax number is [phone]. Please look out for an email from [facility] to participate in a survey. I [...] doctor may have you work with a security trainer or physical therapist to make a [...] your doctor. Where can I learn more? [employer] http://orthoinfo.aaos.org/topic.cfm?iaqcp=J10891 NHS https://www.nhs.uk/live-well/exercise/zbztm-jtmm-znwp-exercises/ Last Reviewed Date 2019-05-23 Consumer Information Use [...] right for you. Copyright Copyright ?? 2020 [employer]. and its affiliates and/or licensors. All rights [...] doctor may have you work with a security trainer or physical therapist to make a [...] your doctor. Where can I learn more? [employer] http://orthoinfo.aaos.org/topic.cfm?mtdxh=B52585 Last Reviewed Date 2019-07-17 Consumer Information Use [...] right for you. Copyright Copyright ?? 2020 [employer]. and its affiliates and/or licensors. All rights reserved. Patient Education Patient Education Controlling Your Blood Pressure Through Lifestyle The Basics Written by the doctors and editors at [employer] What does my lifestyle have to do [...] type of person who eats cheeseburgers and [place] fries all the time, you can't switch [...] keep the cheeseburger but give up the [place] fries. Or eat the same things but [...] process is complete. This topic retrieved from [employer] on: Nov 11, 2020. Topic 40133 Version 7.0 Release: 29.1.3 - C29.60 ?2020??[employer]. and/or its affiliates.??All rights reserved. figure 1: Sources of sodium in your diet Graphic 83396 Version 2.0 Consumer Information Use and Disclaimer [...] that is right for you.The use of [employer] content is governed by the [employer]arm Terms of Use. ??2020 [employer]. All rights reserved. Copyright ?2020??[employer] and/or its affiliates.??All rights reserved. Patient Education Patient Education Health Risks of Obesity The Basics Written by the doctors and editors at [employer] What does it mean to be obese???--??Doctors [...] process is complete. This topic retrieved from [employer] on: Nov 11, 2020. Topic 75388 Version 12.0 Release: 29.1.3 - C29.60 ?2020??[employer]. and/or its affiliates.??All rights reserved. figure 1: Your body mass index (BMI) Find your height (in feet and inches) in the top row. Then find your weight (in pounds) in the first column. Now find where the column for your height and the row for your weight meet. That is your BMI. For example, if you are 7-vnxq-8-inches tall and you weigh 260 pounds, your BMI is 38. You can also go online to www.DockPHP/patients and search for BMI. There you will find a calculator that will tell you what your BMI is if you type in your height and weight. Graphic 77724 Version 3.0 Consumer Information Use and Disclaimer [...] that is right for you.The use of [employer] content is governed by the [employer]arm Terms of Use. ??2020 [employer]. All rights reserved. Copyright ?2020??[employer]. and/or its affiliates.??All rights reserved. documented in this encounter Progress Notes * Tracy Olivares MD - 01/05/2021 10:40 AM CDTAddended by: TRACY OLIVARES on: 03/17/2021 09:22 AM Modules accepted: Orders * Tracy Olivares MD - 01/05/2021 10:40 AM CDTSummary: New Patient notes Images from the original note were not included. Internal Medicine New Patient notes CC: New Patient ([facility]) HPI: Keegan Amaya is a 65-year-old female who presents to [facility]. Hypertension: Patient with history of hypertension for [...] concerns at the moment. Follows with an vegetable specker. Denies any chronic cough, sore throat, itchiness of eyes at the moment. Uses drlc-xhm-wiulwlg antihistamines to help with symptoms. COPD: Patient with 25-year pack history of smoking. Quit smoking in 1984. Currently follows with an vegetable specker and on Trelegy. Rarely needs to use [...] had an EGD done in 2019 at [facility]. She is unsure what the exact results were. She will sign a release form to obtain records. Currently on omeprazole daily. Patient also taking about 800 mg of ibuprofen once or twice per day for arthritis. Denies any melena stool or worsening of GERD symptoms. Has never had PUD. Previous provider(s): Dr Ford- Acid Condenser, Dr Ramírez -Orthopedic, ophthalmology at [facility], Dr Colunga- PCP Reason for new provider: [...] (BMI) of 50.0 to 59.9 in adult ([facility]) E66.01 278.01 SEVERE OBESITY Z68.43 V85.43 6. Pulmonary emphysema, unspecified emphysema type ([facility]) J43.9 492.8 PULMONARY EMPHYSEMA TRELEGY 100-62.5-25 MCG/INH [...] Mild episode of recurrent major depressive disorder ([facility]) F33.0 296.31 RECURRENT MAJOR DEPRESSIVE EPISODES, MILD DULoxetine 30 MG capsule 13. FAISAL on CPAP G47.33 327.23 OBSTRUCTIVE SLEEP APNEA SYNDROME Ambulatory referral to Pulmonology ([facility]) Z99.89 V46.8 1. Encounter to establish care [...] with OTC antihistamines - follow with your vegetable specker as needed 5. Class 3 severe obesity due to excess calories without serious comorbidity with body mass index (BMI) of 50.0 to 59.9 in adult ([facility]) - patient interested in discussing weight loss options - will plan to discuss at subsequent visit - will order blood work as noted above today 6. Pulmonary emphysema, unspecified emphysema type ([facility]) - TRELEGY 100-62.5-25 MCG/INH AEROSOL POWDER, BREATH [...] on CPAP - Ambulatory referral to Pulmonology ([facility]) to establish care and to follow for [...] was at least in part performed using Tamr and there may be some inherent flaws in this knife changer due to the nature of this program. Tracy Olivares MD. Internal Medicine [facility]. documented in this encounter Plan of Treatment Upcoming Encounters Date Type Department Care Team (Late st Contact Info) Description 10/03/2024 11:00 AM LAPPING MACHINE OPERATOR Office Visit [facility] Pulmonology Specialty Clinic - [address] [address] Nathan Baig MD [address] [place] [address] 11/14/2024 10:20 AM LAPPING MACHINE OPERATOR Office Visit [facility] Multispecialty Care - [place] [address] [address] [place] [address] Tracy Olivares MD [address] [address] Scheduled Referrals Name Type Priority Associated Diagnoses Orde r Schedule Ambulatory referral to Pulmonology ([facility]) Referral Routine FAISLA on CPAP Ordered: 01/05/2021 documented as of [...] (U) 10 mg/L MG- [address], [place] CREATININE RANDOM (U) 300 mg/dL MG-[address], [place] MICROALB/CREAT <30 mg/g MG-[address], [place] URINE SPECIMEN / Unknown 01/05/2021 us Tracy Olivares MD URINE ORDERABLES Final Result Performing Organization Address [facility]/ZIP Co de Phone Number MG[address], [place] [address] [place] [address], [place] [phone] * URINALYSIS AUTO DIP (01/05/2021) COLOR (U) YELLOW [address], [place] TRANSPARENCY CLEAR MG[address], [place] GLUCOSE (U) NEGATIVE NEGATIVE MG/DL MG-[address], [place] BILIRUBIN (U) NEGATIVE NEGATIVE MG-[address], [place] KETONES MG/DL (U) NEGATIVE NEGATIVE MG/DL MG-[address], [place] SPECIFIC GRAVITY (U) 1.025 1.001 - 1.035 MG[address], [place] BLOOD (U) NEGATIVE NEGATIVE MG-[address], [place] U PH 6.0 5.0 - 9.0 MG[address], [place] PROTEIN (U) NEGATIVE NEGATIVE mg/dL MG-[address], [place] UROBILINOGEN 0.2 0.2 - 1.0 EU/dL = mg/dL MG-[address], [place] NITRITES NEGATIVE NEGATIVE MG/DL MG-[address], [place] LEUKOCYTES (U) NEGATIVE NEGATIVE MG-[address], [place] URINE SPECIMEN OBTAINED BY CLEAN CATCH PROCEDURE / Unknown 01/05/2021 us Tracy Olivares MD URINE ORDERABLES Final Result Performing Organization Address [facility]/ZIP Co de Phone Number MG[address], [place] [address] [place] [address], [place] [phone] documented in this encounter Visit Diagnoses Diagnosis Encounter to establish care- Primary Other reasons for seeking consultation Essential hypertension Unspecified essential hypertension Vitamin D deficiency Unspecified vitamin D deficiency Seasonal allergic rhinitis due to pollen Class 3 severe obesity due to excess calories without serious comorbidity with body mass index (BMI) of 50.0 to 59.9 in adult ([facility]) Pulmonary emphysema, unspecified emphysema type ([facility]) Chronic bilateral low back pain with bilateral sciatica Lumbar herniated disc Displacement of lumbar intervertebral disc without myelopathy Chronic left shoulder pain Pain in joint, shoulder region Hearing loss of left ear, unspecified hearing loss type Osteopenia, unspecified location Mild episode of recurrent major depressive disorder ([facility]) FAISAL on CPAP Obstructive sleep apnea (adult) (pediatric) Menopause Asymptomatic postmenopausal status (age-related) (natural) documented in this encounter Additional Health Concerns Assessment Noted Time PHQ-9 Depression Total Score: 6 01/06/20 21 12:11 PM CDT documented as of this encounter Care Teams Quality Control Microbiology Supervisor Relationship Specialty Start Date End Date Tracy Olivares MD [address] [address] PCP - General INTERNAL MEDICINE 01/02/21 documented as of this encounter
--- OUTSIDE RECORDS SUMMARY | 2024-09-07 15:21 | XMS_ITS | Encounter Summary ---
Author Organization [facility] Address [address] [place] [address]. [place], [place] [address] [place] [address] Care Team Providers Care Docket Clerk Name Role Phone Tracy Olivares MD Primary Care Provider [phone] Reason for Visit * Reason Comments Back Pain c/o of severe lower back pain that started tuesday night. She states the pain is getting worse and is also radiating into her legs while she is lying down. Encounter Details Date Type Department Care Team (Latest Contact Info) Description 04/14/2021 10:00 AM CDT Office Visit [facility] Multispecialty Care - [address] [place] [address] Suzan Servin, GLORIA Back Pain [...] Then, bend with your knees when you machine pecan picker something from the ground. ? When [...] best results. ? Lie on your back. communications electrician supervisor the knee of the painful side [...] or foot. Where can I learn more? [employer] https://familydoctor.org/condition/piriformis-syndrome/ Health Navigator [...] right for you. Copyright Copyright ?? 2020 [employer]. and its affiliates and/or licensors. All rights [...] Gatherings with Friends and Family: ??? Attends [employer] Services: ??? Active Member of Clubs or [...] Contact Info) Description 10/03/2024 11:00 AM PROGRAM INSTRUCTOR Office Visit [facility] Pulmonology Specialty Clinic - [place] [address] [facility] [address] [place] [address] Nathan Baig MD [address] [address] 11/14/2024 10:20 AM PROGRAM INSTRUCTOR Office Visit [facility] Multispecialty Care - [place] [address] [facility] [address] [place] [address] Tracy Olivares MD [facility] [address] documented as of this encounter Visit Diagnoses Diagnosis Sciatica of right side- Primary Sciatica Moderate episode of recurrent major depressive disorder ([facility]HCC [facility]) documented in this encounter Administered Medications Inactive [...] documented as of this encounter Care Teams Docket Clerk Relationship Specialty Start Date End Date Tracy Olivares MD [address] [address] PCP - General INTERNAL MEDICINE 01/02/21 documented as of this encounter
--- OUTSIDE RECORDS SUMMARY | 2024-09-07 15:21 | XMS_ITS | Encounter Summary ---
Author Organization [facility] Address [address] [place] [address]. [place] [id number] Care Team Providers Care Fire Alarm Repairer Name Role Phone Tracy Olivares MD Primary Care Provider [phone] Reason for Visit * Reason Onset Date Comments Results 05/04/2021 Encounter Details Date Type Department Care Team (Late st Contact Info) Description 05/04/2021 Telephone [facility] Medical Group Multispecialty Care - [place] [address] [address] [place] [address] Tracy Olivares MD [address] [place] [address] 157 [place] [address] Results Social History Tobacco Use [...] media tab Tracy Olivares MD Internal Medicine [facility], [facility]. documented in this encounter Plan of Treatment Upcoming Encounters Date Type Department Care Team (Late st Contact Info) Description 10/03/2024 11:00 AM COIN DEALER Office Visit [facility] Pulmonology Specialty Clinic - [address] [address] Nathan Baig MD [address] [place] [address] 11/14/2024 10:20 AM COIN DEALER Office Visit [facility] Multispecialty Care - [place] [address] [address] [place] [address] Tracy Olivares MD [facility] [address] [address] documented as of this encounter Visit Diagnoses Not on filedocumented in this encounter Additional Health Concerns Assessment Noted Time PHQ-9 Depression Total Score: 9 04/14/20 21 10:21 AM CDT documented as of this encounter Care Teams Fire Alarm Repairer Relationship Specialty Start Date End Date Tracy Olivares MD [address] [place] [address] PCP - General INTERNAL MEDICINE 01/02/21 documented as of this encounter
--- OUTSIDE RECORDS SUMMARY | 2024-09-07 15:21 | XMS_ITS | Encounter Summary ---
Author Organization [facility] Address [address] [place] [address]. [place] [address] [place] [address] Care Team Providers Care Forming Fixer Name Role Phone Unavailable Primary Care Provider Unavailabl e Encounter Details Date Type Department Care Team (Late st Contact Info) Description 12/18/2012 Abstract [facility] Medical Group Multispecialty Care - [facility] [address] [facility], [address] [place] [address] Ramiro Guzmán MD Social History [...] 1 TABLET BY MOUTH EVERY DAY; Therapy: [id number] to 5. Meloxicam 7.5 MG Oral Tablet; TAKE 1 TABLET TWICE DAILY; Therapy: [id number] to (Evaluate:24Nov2012) Requested for: [id number]; Last Rx:[id number] Allergies 1. Aspirin TABS 2. Darvon CAPS Vitals 18Dec2012 02:05PM Heart Rate 76 Systolic 144 Diastolic 86 BMI Calculated 45.36 BSA Calculated 2.36 Height 5 ft 7 in Weight 289 lb Assessment 1. Lower Back Pain 724.2 Signatures Electronically signed by : Ramiro Guzmán M.D.; Dec 18 2012 2:18PM (Author) OOD MANAGER documented in this encounter Plan of Treatment Upcoming Encounters Date Type Department Care Team (Late st Contact Info) Description 10/03/2024 11:00 AM SEAFOOD MANAGER Office Visit [facility] Medical Group Pulmonology Specialty Clinic - [address] [address] Nathan Baig MD [address] [place] [address] 11/14/2024 10:20 AM SEAFOOD MANAGER Office Visit [facility] Group Multispecialty Care - [place] [address] [address] [place] [address] Tracy Olivares MD [address] [place] [address] documented as of this encounter Visit Diagnoses Not on filedocumented in this encounter
--- OUTSIDE RECORDS SUMMARY | 2024-09-07 15:21 | XMS_ITS | Encounter Summary ---
Author Organization [facility] Address [address] [place] [address]. [place] [id number] [place] [address] Care Team Providers Care Clinical Trials Specialist Name Role Phone Tracy Olivares MD Primary Care Provider [phone] Reason for Visit * Reason Onset Date Comments Follow Up Call 01/06/2021 Encounter Details Date Type Department Care Team (Late st Contact Info) Description 01/06/2021 Telephone [facility] Medical Group Multispecialty Care - [place] [address] [address] [place] [address] Tracy Olivares MD [address] [place] [address] 157 [place] [address] Follow Up Call Social History [...] last message her daughters phone number is [phone]. She is worried because they are not doing anything to help control her pain, and feels they are neglecting her mom. ADDENDUM: I called patients daughter on [phone] about above concerns and was told patient was finally being seen by a provider and that is being taken for imaging of her hip. I made daughter aware to reach out after discharge if patient is not doing well. She was grateful for the call and verbalized understanding. Tracy Olivares MD Internal Medicine [facility]. ' documented in this encounter Plan of Treatment Upcoming Encounters Date Type Department Care Team (Late st Contact Info) Description 10/03/2024 11:00 AM HANDBAG OPERATOR Office Visit [facility] Pulmonology Specialty Clinic - [address] [address] Nathan Baig MD [address] [place] [address] 11/14/2024 10:20 AM HANDBAG OPERATOR Office Visit [facility] Multispecialty Care - [place] [address] [address] [place] [address] Tracy Olivares MD [address] [place] [address] documented as of this encounter Visit Diagnoses Not on filedocumented in this encounter Additional Health Concerns Assessment Noted Time PHQ-9 Depression Total Score: 6 01/06/20 21 12:11 PM CDT documented as of this encounter Care Teams Clinical Trials Specialist Relationship Specialty Start Date End Date Tracy Olivares MD [address] [facility] [address] [place] [address] PCP - General INTERNAL MEDICINE 01/02/21 documented as of this encounter
--- OUTSIDE RECORDS SUMMARY | 2024-09-07 15:21 | XMS_ITS | Encounter Summary ---
Author Organization [facility] Address [address] [place] [address]. [place], [place] [address] [place] [address] Care Team Providers Care Elevator Repairer Helper Name Role Phone Tracy Olivares MD Primary Care Provider [phone] Encounter Details Date Type Department Care Team (Latest Contact Info) Description 03/03/2021 - 03/03/2021 11:59 PM CDT Hospital Encounter [facility] [place] [address] Tracy Olivares MD [address] [address] Discharge Disposition: Home or Self [...] Moderate episode of recurrent major depressive disorder ([facility]),Generaliz ed anxiety disorder Take 1 tablet (10 [...] BREATH ACTIVATEDIndicatio ns:Pulmonary emphysema, unspecified emphysema type ([facility]/HCC) Inhale 1 puff into the lungs daily. 60 each 2 01/05/2021 1 Vitamin D, Cholecalciferol, 50 MCG (1999 [place]) CapIndications:Vit horn D deficiency Take 1,000 Units by mouth daily. 30 capsule 03/03/2021 4 documented as of this encounter Plan of Treatment Upcoming Encounters Date Type Department Care Team (Late st Contact Info) Description 10/03/2024 11:00 AM MOTORBIKE COURIER Office Visit [facility] Medical Group Pulmonology Specialty Clinic - [address] [address] Nathan Baig MD [address] [address] 11/14/2024 10:20 AM MOTORBIKE COURIER Office Visit [facility] Multispecialty Care - [place] [address] [address] [place] [address] Tracy Olivares MD [facility] [address] [address] documented as of this encounter Visit Diagnoses Not on filedocumented in this encounter Additional Health Concerns Assessment Noted Time PHQ-9 Depression Total Score: 2 03/03/20 21 11:26 AM CDT documented as of this encounter Care Teams Elevator Repairer Helper Relationship Specialty Start Date End Date Tracy Olivares MD [address] [place] [address] PCP - General INTERNAL MEDICINE 01/02/21 documented as of this encounter
--- OUTSIDE RECORDS SUMMARY | 2024-09-07 15:21 | XMS_ITS | Encounter Summary ---
Author Organization [facility] Address [address] [place] [address]. [place], [place] [address] [place] [address] Care Team Providers Care Golf Cart Repairer Name Role Phone Unavailable Primary Care Provider Unavailabl e Encounter Details Date Type Department Care Team (Late st Contact Info) Description 04/06/1999 Abstract [facility] CONVERSION [address] [place] [address] , Generic MD Clarence Social History Tobacco [...] st Contact Info) Description 10/03/2024 11:00 AM FRAMING MILL OPERATOR HELPER Office Visit [facility] Medical Group Pulmonology Specialty Clinic - [address] [address] Nathan Baig MD [address] [place] [address] 11/14/2024 10:20 AM FRAMING MILL OPERATOR HELPER Office Visit [facility] Medical Group Multispecialty Care - [place] [address] [address] [place] [address] Tracy Olivares MD [address] [place] [address] documented as of this encounter Visit Diagnoses Not on filedocumented in this encounter
--- OUTSIDE RECORDS SUMMARY | 2024-09-07 15:21 | XMS_ITS | Encounter Summary ---
Author Organization [facility] Address [address] [place] [address]. [place], [place] [address] [place] [address] Care Team Providers Care Payment Collector Name Role Phone Tracy Olivares MD Primary Care Provider [phone] Encounter Details Date Type Department Care Team [...] st Contact Info) Description 10/03/2024 11:00 AM BURNING SUPERVISOR Office Visit [facility] Medical Group Pulmonology Specialty Clinic - [place] [address] [place] [address] Nathan Baig MD [address] [place] [address] 11/14/2024 10:20 AM BURNING SUPERVISOR Office Visit [facility] Medical Group Multispecialty Care - [place] [address] [address] [place] [address] [place] [address] [place] [address] documented as of this encounter Visit Diagnoses Not on filedocumented in this encounter Additional Health Concerns Assessment Noted Time PHQ-9 Depression Total Score: 6 01/06/20 21 12:11 PM CDT documented as of this encounter Care Teams Payment Collector Relationship Specialty Start Date End Date Tracy Olivares MD [address] [place] [address] PCP - General INTERNAL MEDICINE 01/02/21 documented as of this encounter
--- OUTSIDE RECORDS SUMMARY | 2024-09-07 15:21 | XMS_ITS | Encounter Summary ---
Author Organization [facility] Address [address] [place] [address]. [place] [id number] Care Team Providers Care Production Team Leader Name Role Phone Tracy Olivares MD Primary Care Provider [phone] Reason for Visit * Reason Onset Date Comments Other 03/13/2021 Encounter Details Date Type Department Care Team (Late st Contact Info) Description 03/13/2021 Telephone [facility] Medical Group Multispecialty Care - [place] [address] [address] [place] [address] Tracy Olivares MD [address] [place] [address] 157 [place] [address] Other Social History Tobacco Use [...] - 03/13/2021 9:17 AM CDT Fax order [phone] [facility] Fax over bone carlos order documented in this encounter Plan of Treatment Upcoming Encounters Date Type Department Care Team (Late st Contact Info) Description 10/03/2024 11:00 AM CLINICAL OB Office Visit [facility] Medical [facility] Pulmonology Specialty Clinic - [address] [address] Nathan Baig MD [address] [place] [address] 11/14/2024 10:20 AM CLINICAL OB Office Visit [facility] Multispecialty Care - [place] [address] [address] [place] [address] Tracy Olivares MD [facility] [address] [address] documented as of this encounter Visit Diagnoses Not on filedocumented in this encounter Additional Health Concerns Assessment Noted Time PHQ-9 Depression Total Score: 2 03/03/20 21 11:26 AM CDT documented as of this encounter Care Teams Production Team Leader Relationship Specialty Start Date End Date Tracy Olivares MD [address] [place] [address] PCP - General INTERNAL MEDICINE 01/02/21 documented as of this encounter
--- OUTSIDE RECORDS SUMMARY | 2024-09-07 15:21 | XMS_ITS | Encounter Summary ---
Author Organization [facility] Address [address] [place] [address]. [place] [address] [place] [address] Care Team Providers Care Airport Utility Worker Name Role Phone Tracy Olivares MD Primary Care Provider [phone] Reason for Visit * Reason Onset Date Comments No Show 02/13/2021 Encounter Details Date Type Department Care Team ([facility] Contact Info) Description 02/13/2021 Telephone [facility] Physical Therapy [address] [place] [address] Darlene Rodgers, PT No Show Social History [...] (Late Contact Info) Description 10/03/2024 11:00 AM MEDICAL CHEMIST Office Visit [facility] Medical Group Pulmonology Specialty Clinic - [address] [address] Nathan Baig MD [address] [place] [address] 11/14/2024 10:20 AM MEDICAL CHEMIST Office Visit [facility] [place] Multispecialty Care - [place] [address] [address] [place] [address] Tracy Olivares MD [address] [address] documented as of this encounter Visit Diagnoses Not on filedocumented in this encounter Additional Health Concerns Assessment Noted Time PHQ-9 Depression Total Score: 6 01/06/20 21 12:11 PM CDT documented as of this encounter Care Teams Airport Utility Worker Relationship Specialty Start Date End Date Tracy Olivares MD [address] [place] [address] PCP - General INTERNAL MEDICINE 01/02/21 documented as of this encounter
--- OUTSIDE RECORDS SUMMARY | 2024-09-07 15:21 | XMS_ITS | Encounter Summary ---
Author Organization [facility] Address [address] [place] [address]. [place], [place] [address] [place] [address] Care Team Providers Care Emergency Telecommunications Dispatcher Name Role Phone Unavailable Primary Care Provider Unavailabl e Encounter Details Date Type Department Care Team (Latest Contact Info) Description 07/28/2012 Abstract [facility] Medical Group Social History Tobacco [...] st Contact Info) Description 10/03/2024 11:00 AM BICYCLE TAXI DRIVER Office Visit [facility] Medical Group Pulmonology Specialty Clinic - [address] [address] Nathan Baig MD [address] [place] [address] 11/14/2024 10:20 AM BICYCLE TAXI DRIVER Office Visit [facility] Medical Group Multispecialty Care - [place] [address] [address] [place] [address] Tracy Olivares MD [address] [place] [address] documented as of this encounter Visit Diagnoses Not on filedocumented in this encounter
--- OUTSIDE RECORDS SUMMARY | 2024-09-07 15:21 | XMS_ITS | Encounter Summary ---
Author Organization [facility] Address [address] [place] [address]. [place], [place] [address] [place] [address] Care Team Providers Care Transfer Station Operator Name Role Phone Unavailable Primary Care Provider Unavailabl e Encounter Details Date Type Department Care Team (Latest Contact Info) Description 03/03/2012 Abstract [facility] Medical Group Social History Tobacco Use Types [...] st Contact Info) Description 10/03/2024 11:00 AM TOLL TEST DESK WORKER Office Visit [facility] Medical Group Pulmonology Specialty Clinic - [address] [address] Nathan Baig MD [address] [place] [address] 11/14/2024 10:20 AM TOLL TEST DESK WORKER Office Visit [facility] Medical Group Multispecialty Care - [place] [address] [address] [place] [address] Tracy Olivares MD [address] [place] [address] documented as of this encounter Visit Diagnoses Not on filedocumented in this encounter
--- OUTSIDE RECORDS SUMMARY | 2024-09-07 15:21 | XMS_ITS | Encounter Summary ---
Author Organization [facility] Address [address] [place] [address]. [place], [place] [address] [place] [address] Care Team Providers Care Tying In Machine Operator Name Role Phone Tracy Olivares MD Primary Care Provider [phone] Encounter Details Date Type Department Care Team (Latest Contact Info) Description 03/03/2021 Travel Social History Tobacco Use Types Packs/Day Years Used Date Smoking Tobacco: Former Cigarettes 0 09/12/1959 - 09/12/1984 Smokeless Tobacco: Never Comments:by Dr Oliavres Alcohol Use Standard Drinks/Week Comments Not Currently [...] Contact Info) Description 10/03/2024 11:00 AM SUPERVISOR AUDIT CLERKS Office Visit [facility] Medical Group Pulmonology Specialty Clinic - [place] [address] [place] [address] Nathan Baig MD [address] [place] [address] 11/14/2024 10:20 AM SUPERVISOR AUDIT CLERKS Office Visit [facility] Medical Group Multispecialty Care - [place] [address] [address] [place] [address] [place] [address] [place] [address] documented as of this encounter Visit Diagnoses Not on filedocumented in this encounter Additional Health Concerns Assessment Noted Time PHQ-9 Depression Total Score: 2 03/03/20 21 11:26 AM CDT documented as of this encounter Care Teams Tying In Machine Operator Relationship Specialty Start Date End Date Tracy Olivares MD [address] [place] [address] PCP - General INTERNAL MEDICINE 01/02/21 documented as of this encounter
--- OUTSIDE RECORDS SUMMARY | 2024-09-07 15:21 | XMS_ITS | Encounter Summary ---
Author Organization [facility] Address [address] [place] [address]. [place], [place] [address] [place] [address] Care Team Providers Care Auto Vinyl Top Installer Name Role Phone Tracy Olivares MD Primary Care Provider [phone] Reason for Visit * Reason Comments Image (SCAN) MRI (SCAN) Encounter Details Date Type Department Care Team ([facility] Contact Info) Description 01/06/2021 Scan HEALTH INFO [...] Upcoming Encounters Date Type Department Care Team ([facility] Contact Info) Description 10/03/2024 11:00 AM ROVING CHANGER Office Visit [facility] Medical Group Pulmonology Specialty Clinic - [address] [place], [place] [address] Nathan Baig MD [address] [address] 11/14/2024 10:20 AM ROVING CHANGER Office Visit [facility] Medical Group Multispecialty Care - [place] [address] [place] [address] [address] [place] [address] Tracy Olivares MD 118[address] [facility] [address] [place] [address] documented as of this encounter Procedures Procedure [...] documented as of this encounter Care Teams Auto Vinyl Top Installer Relationship Specialty Start Date End Date Tracy Olivares MD [address] [address] PCP - General INTERNAL MEDICINE 01/02/21 documented as of this encounter
--- OUTSIDE RECORDS SUMMARY | 2024-09-07 15:21 | XMS_ITS | Encounter Summary ---
Author Organization [facility] Address [address] [place] [address]. [place] [address] [place] [address] Care Team Providers Care Cane Loader Name Role Phone Tracy Olivares MD Primary Care Provider Nathan Baig MD Unavailable [phone] Marisel Mancini RN Unavailable [phone] Encounter Details Date Type Department Care Team (Latest Contact Info) Description 02/11/2021 [facility] Medical Group Multispecialty Care - [place] [address] [place] [address] [address] [place] [address] [place] [address] [place] [address] 157 [place], [place] [phone] medication refilled. Social History Tobacco Use Types [...] Contact Info) Description 10/03/2024 11:00 AM MARKETING PERFORMANCE ANALYST Office Visit [facility] Medical Group Pulmonology Specialty Clinic - [address] [address] Nathan Baig MD 3 [facility] [address] [place] [address] 11/14/2024 10:20 AM MARKETING PERFORMANCE ANALYST Office Visit [facility] Medical [facility] Multispecialty Care - [place] [address] [address] [place] [address] [place] [address] [place] [address] documented as of this encounter Visit Diagnoses [...] documented as of this encounter Care Teams Cane Loader Relationship Specialty Start Date End Date Tracy Olivares MD [address] [place] [address] PCP - General INTERNAL MEDICINE 01/02/21 Nathan Baig MD 3 [facility] [address] [place] [address] Consulting Physician Internal Medicine Pulmonary Disease 09/16/21 Marisel Mancini, RN [address] [place] [address] Certified Medication Technician (Ambulatory) REGISTERED NURSE 06/28/24 08/07/24 documented as of this encounter
--- OUTSIDE RECORDS SUMMARY | 2024-09-07 15:21 | XMS_ITS | Encounter Summary ---
Author Organization [facility] Address [address] [place] [address]. [place] [id number] Care Team Providers Care Sales Manager Prearranged Funerals Name Role Phone Tracy Olivares MD Primary Care Provider [phone] Reason for Visit * Reason Onset Date Comments Other 04/20/2021 Encounter Details Date Type Department Care Team (Late st Contact Info) Description 04/20/2021 Telephone [facility] Medical Group Multispecialty Care - [place] [address] [address] [place] [address] Tracy Olivares MD [address] [place] [address] 157 [place] [address] Other Social History Tobacco Use [...] st Contact Info) Description 10/03/2024 11:00 AM DAIRY LAB TECHNICIAN Office Visit [facility] Medical Group Pulmonology Specialty Clinic - [address] [address] Nathan Baig MD [address] [place] [address] 11/14/2024 10:20 AM DAIRY LAB TECHNICIAN Office Visit [facility] Multispecialty Care - [place] [address] [address] [place] [address] Tracy Olivares MD [address] [address] documented as of this encounter Visit Diagnoses Not on filedocumented in this encounter Additional Health Concerns Assessment Noted Time PHQ-9 Depression Total Score: 9 04/14/20 21 10:21 AM CDT documented as of this encounter Care Teams Sales Manager Prearranged Funerals Relationship Specialty Start Date End Date Tracy Olivares MD [address] [place] [address] PCP - General INTERNAL MEDICINE 01/02/21 documented as of this encounter
--- OUTSIDE RECORDS SUMMARY | 2024-09-07 15:21 | XMS_ITS | Encounter Summary ---
Author Organization [facility] Address [address] [place] [address]. [place] [id number] [place] [address] Care Team Providers Care Medical Lab Technician Name Role Phone Tracy Olivares MD Primary Care Provider [phone] Reason for Visit * Reason Onset Date Comments Medication Request 01/09/2021 Encounter Details Date Type Department Care Team (Late st Contact Info) Description 01/09/2021 Telephone [facility] Medical Group Multispecialty Care - [place] [address] [address] [place], [place] [address] Tracy Olivares MD [address] [place] [address] [address] [place] [address] Medication Request Social History Tobacco [...] her pharmacy. Tracy Olivares MD Internal Medicine [facility], [facility]. documented in this encounter Plan of Treatment Upcoming Encounters Date Type Department Care Team (Late st Contact Info) Description 10/03/2024 11:00 AM CHILLER TECHNICIAN Office Visit [facility] Pulmonology Specialty Clinic - [address] [address] Nathan Baig MD [address] [place] [address] 11/14/2024 10:20 AM CHILLER TECHNICIAN Office Visit [facility] Multispecialty Care - [place] [address] [address] [place] [address] Tracy Olivares MD [address] [address] documented as of this encounter Visit Diagnoses Diagnosis Low back pain due to bilateral sciatica- Primary documented in this encounter Additional Health Concerns Assessment Noted Time PHQ-9 Depression Total Score: 6 01/06/20 21 12:11 PM CDT documented as of this encounter Care Teams Medical Lab Technician Relationship Specialty Start Date End Date Tracy Olivares MD [address] [place] [address] PCP - General INTERNAL MEDICINE 01/02/21 documented as of this encounter
--- OUTSIDE RECORDS SUMMARY | 2024-09-07 15:21 | XMS_ITS | Encounter Summary ---
Author Organization [facility] Address [address] [place] [address]. [place] [address] [place] [address] Care Team Providers Care Dot Net Architect Name Role Phone Unavailable Primary Care Provider Unavailabl e Encounter Details Date Type Department Care Team (Late st Contact Info) Description 07/24/2012 Abstract [facility] Medical Group Multispecialty Care - [facility] [address] [facility], [address] [place] [phone] Ramiro Guzmán MD Social History Tobacco Use [...] Comments Blood Pressure 140/90 07/24/2012 12:01 PM CUSTOMER SUPPORT SPECIALIST Pulse 80 07/24/2012 12:01 PM CUSTOMER SUPPORT SPECIALIST Temperature - - Respiratory Rate - - Oxygen Saturation - - Inhaled Oxygen Concentration - - Weight 131.1 kg (289 lb) 07/24/2012 11:44 AM CUSTOMER SUPPORT SPECIALIST Height 170.2 cm (5' 7 ) 07/24/2012 11:44 AM CUSTOMER SUPPORT SPECIALIST Body Mass Index 45.26 07/24/2012 11:44 AM CUSTOMER SUPPORT SPECIALIST documented in this encounter Progress Notes * [...] CERVICAL SPINE ON 02-21-[address] FERRER IN [place] 03-23? TO PRESENT..HELPING NECK NO P.T. NO [...] Higher order function alert and oriented x3, [place] Coma Scale 15, speech fluent Cervical spine [...] Guzmán M.D.; Jul 26 2012 8:59AM (Author) OMER SUPPORT SPECIALIST documented in this encounter Plan of Treatment Upcoming Encounters Date Type Department Care Team (Late st Contact Info) Description 10/03/2024 11:00 AM CUSTOMER SUPPORT SPECIALIST Office Visit [facility] Medical [facility] Pulmonology Specialty Clinic - [address] [address] Nathan Baig MD [address] [place] [address] 11/14/2024 10:20 AM CUSTOMER SUPPORT SPECIALIST Office Visit [facility] Medical Group Multispecialty Care - [place] [address] [address] [place] [address] Tracy Olivares MD [address] [place] [address] 157 [place] [address] documented as of this encounter Visit Diagnoses Not on filedocumented in this encounter
--- OUTSIDE RECORDS SUMMARY | 2024-09-07 15:21 | XMS_ITS | Encounter Summary ---
Author Organization [facility] Address [address] [place] [address]. [place], [place] [address] [place] [address] Care Team Providers Care Nurses Educator Name Role Phone Tracy Olivares MD Primary Care Provider [phone] Reason for Visit * Reason Comments Sleep Study (SCAN) Encounter Details Date Type Department Care Team ([facility] Contact Info) Description 01/31/2020 Scan HEALTH [...] Upcoming Encounters Date Type Department Care Team ([facility] Contact Info) Description 10/03/2024 11:00 AM HEALTH ADVISOR Office Visit [facility] Medical [facility] Pulmonology Specialty Clinic - [address] [place] [address] Nathan Baig MD [address] [place] [address] 11/14/2024 10:20 AM HEALTH ADVISOR Office Visit [facility] Medical Group Multispecialty Care - [place] [address] [address] [place] [address] Tracy Olivares MD [address] [address] documented as of this encounter Procedures Procedure [...] on filedocumented in this encounter Care Teams Nurses Educator Relationship Specialty Start Date End Date Tracy Olivares MD [address] [address] PCP - General INTERNAL MEDICINE 01/02/21 documented as of this encounter
--- OUTSIDE RECORDS SUMMARY | 2024-09-07 15:21 | XMS_ITS | Encounter Summary ---
Author Organization [facility] Address [address] [place] [address]. [place], [place] [address] [place] [address] Care Team Providers Care Vice Chair Name Role Phone Tracy Olivares MD Primary Care Provider Reason for Visit * Reason Comments Mammogram (SCAN) Encounter Details Date Type Department Care Team ([facility] Contact Info) Description 09/03/2020 Scan [facility] [...] Department Care Team ([facility] Contact Info) Description 10/03/2024 11:00 AM AUTOMOTIVE SPECIALTY TECHNICIAN Office Visit [facility] Medical [facility] Pulmonology Specialty Clinic - [address] [place] [address] Nathan Baig MD [address] [place] [address] 11/14/2024 10:20 AM AUTOMOTIVE SPECIALTY TECHNICIAN Office Visit [facility] Medical Group Multispecialty Care - [place] [address] [address] [place] [address] Tracy Olivares MD [address] [place] [address] documented as of this encounter Procedures Procedure Name Priority Date/Time Associated Diagnosis Comments MAMMOGRAM GENERIC (SCAN ORDER) 09/03/2020 documented in this encounter Results * MAMMOGRAM GENERIC (09/03/2020) Anatomical Region Laterality Modality Other 09/03/2020 Narrative 09/03/2020 Ordered by an unspecified provider. us Documents Scanned SCANNING Final Result documented in this encounter Visit Diagnoses Not on filedocumented in this encounter Care Teams Vice Chair Relationship Specialty Start Date End Date Tracy Olivares MD [address] [place] [address] PCP - General INTERNAL MEDICINE 01/02/21 documented as of this encounter
--- OUTSIDE RECORDS SUMMARY | 2024-09-07 15:21 | XMS_ITS | Encounter Summary ---
Author Organization [facility] Address [address] [place] [address]. [place], [place] [address] [place] [address] Care Team Providers Care Outside Property Agent Name Role Phone Tracy Olivares MD Primary Care Provider [phone] Encounter Details Date Type Department Care Team [...] st Contact Info) Description 10/03/2024 11:00 AM SED MIDDLE SCHOOL TEACHER Office Visit [facility] Medical Group Pulmonology Specialty Clinic - [place] [address] [place] [address] Nathan Baig MD [address] [address] 11/14/2024 10:20 AM SED MIDDLE SCHOOL TEACHER Office Visit [facility] Medical Group Multispecialty Care - [place] [address] [address] [place] [address] [place] [address] [place] [address] documented as of this encounter Visit Diagnoses Not on filedocumented in this encounter Additional Health Concerns Assessment Noted Time PHQ-9 Depression Total Score: 9 04/14/20 10:21 AM CDT documented as of this encounter Care Teams Outside Property Agent Relationship Specialty Start Date End Date Tracy Olivares MD [address] [place] [address] PCP - General INTERNAL MEDICINE 01/02/21 documented as of this encounter
--- OUTSIDE RECORDS SUMMARY | 2024-09-07 15:29 | XMS_ITS | Encounter Summary ---
Author Organization [facility] Address [address] [place] [address] Care Team Providers Care Collision Mechanic Name Role Phone Tracy Olivares MD Primary Care Provider [phone] Reason for Visit * Reason Onset Date Comments Labs Only 08/21/2024 Encounter Details Date Type Department Care Team (Late st Contact Info) Description 08/21/2024 Telephone [facility] INFECTIOUS DISEASE [place] B [address] [place] [address] [place] [address] Indio Oliver MD [address] [place] [address] Labs Only Social History Tobacco [...] not included. Spoke to Abigail at [facility], repeat potassium level orders given to be redrawn tomorrow. BenitoIndio jaimes MD Gowen, Amanda L, LPN Can you ask [facility] to redraw a potassium level? Thanks ORATE TRAINING MANAGER documented in this encounter Plan of Treatment Upcoming Encounters Date Type Department Care Team (Late st Contact Info) Description 10/04/2024 10:00 AM CORPORATE TRAINING MANAGER Office Visit [facility] Neurosurgery - [facility] [address] [facility] [address] [place] [address] Harris Fischer MD [address] [facility] [address] [place] [address] documented as of this encounter Visit Diagnoses Not on filedocumented in this encounter Care Teams Collision Mechanic Relationship Specialty Start Date End Date Tracy Olivares MD [address] [place] [place] [address] PCP - General Internal Medicine 07/02/24 documented as of this encounter
--- OUTSIDE RECORDS SUMMARY | 2024-09-07 15:29 | XMS_ITS | Encounter Summary ---
Author Organization [facility] Address [address] [place] [address] Care Team Providers Care Coating Machine Operator Helper Name Role Phone Tracy Olivares MD Primary Care Provider [phone] Encounter Details Date Type Department Care Team (Late st Contact Info) Description 08/21/2024 Abstract [facility] INFECTIOUS DISEASE [place] B [address] [place] [address] [place] [address] Indio Oliver MD [address] [facility] [address] [place] [address] Social History Tobacco Use Types [...] st Contact Info) Description 10/04/2024 10:00 AM CIVIL ENGINEERING TEACHER Office Visit [facility] Neurosurgery - Medical [place] [address] [facility] [address] [place] [address] Harris Fischer MD [address] [facility] [address] [place] [address] documented as of this encounter Visit Diagnoses Not on filedocumented in this encounter Care Teams Coating Machine Operator Helper Relationship Specialty Start Date End Date Tracy Olivares MD [address] [place] [address] PCP - General Internal Medicine 07/02/24 documented as of this encounter
--- OUTSIDE RECORDS SUMMARY | 2024-09-07 15:29 | XMS_ITS | Encounter Summary ---
Author Organization [facility] Address [address] [place] [address] Care Team Providers Care Monogram And Letter Paster Name Role Phone Tracy Olivares MD Primary Care Provider [phone] Encounter Details Date Type Department Care Team (Late st Contact Info) Description 08/27/2024 Abstract [facility] INFECTIOUS DISEASE [place] B [address] [place] [address] [place] [address] Indio Oliver MD [address] [place] [address] Social History Tobacco Use Types [...] 9:49 AM CST Outside labs collected 08/24/24 ION MODEL documented in this encounter Plan of Treatment Upcoming Encounters Date Type Department Care Team (Late st Contact Info) Description 10/04/2024 10:00 AM FASHION MODEL Office Visit [facility] Neurosurgery - Medical [place] [address] [facility] [address] [place] [address] Harris Fischer MD [address] [facility] [address] [place] [address] documented as of this encounter Visit Diagnoses Not on filedocumented in this encounter Care Teams Monogram And Letter Paster Relationship Specialty Start Date End Date Tracy Olivares MD [address] [facility] [address] [place] [address] PCP - General Internal Medicine 07/02/24 documented as of this encounter
--- OUTSIDE RECORDS SUMMARY | 2024-09-07 15:29 | XMS_ITS | Encounter Summary ---
Author Organization [facility] Address [address] [place] [address] Care Team Providers Care Pipe Organ Technician Name Role Phone Tracy Olivares MD Primary Care Provider [phone] Reason for Visit * Reason Onset Date Comments IV abx stop date 08/27/2024 Encounter Details Date Type Department Care Team (Late st Contact Info) Description 08/27/2024 Telephone [facility] INFECTIOUS DISEASE [place] B [address] [place] [address] [place] [address] Indio Oliver MD [address] [email or web address] [address] [place] [address] IV abx stop date Social [...] AM) We can stop on 08/27. Thanks URE PROCESSOR * Telephone Encounter - Stacy Abarca LPN - 08/27/2024 10:15 AM CST Current IVAB stop date is for today 08-27-24. Please advise if we are to continue or stop and remove PICC. Most recent labs were drawn on 08-20-24. Please advise URE PROCESSOR documented in this encounter Plan of Treatment Upcoming Encounters Date Type Department Care Team (Late st Contact Info) Description 10/04/2024 10:00 AM DENTURE PROCESSOR Office Visit [facility] Neurosurgery - [facility] [address] [facility] [address] [place] [address] Harris Fischer MD [address] [facility] [address] [place] [address] documented as of this encounter Visit Diagnoses Not on filedocumented in this encounter Care Teams Pipe Organ Technician Relationship Specialty Start Date End Date Tracy Olivares MD [address] [place] [address] PCP - General Internal Medicine 07/02/24 documented as of this encounter
--- OUTSIDE RECORDS SUMMARY | 2024-09-07 15:29 | XMS_ITS | Encounter Summary ---
Author Organization [facility] Address [address] [place] [address] Care Team Providers Care Moulder Operator Name Role Phone Tracy Olivares MD Primary Care Provider [phone] Encounter Details Date Type Department Care Team (Late st Contact Info) Description 08/29/2024 Abstract [facility] INFECTIOUS DISEASE DAISYTOWNER B [address] [address] [place] [address] [place] [address] Indio Oliver MD [address] [facility] [address] [place] [address] Social History Tobacco Use Types [...] st Contact Info) Description 10/04/2024 10:00 AM GAS APPLIANCE SERVICER Office Visit [facility] Neurosurgery - Medical [place] [address] [facility] [address] [place] [address] Harris Fischer MD [address] [facility] [address] [place] [address] documented as of this encounter Visit Diagnoses Not on filedocumented in this encounter Care Teams Moulder Operator Relationship Specialty Start Date End Date Tracy Olivares MD [address] [place] [address] PCP - General Internal Medicine 07/02/24 documented as of this encounter
--- OUTSIDE RECORDS SUMMARY | 2024-09-07 15:29 | XMS_ITS | Clinical Summary ---
Author Organization [facility] Address [address] [place] [address] Phone Care Team Providers Care Court Clerk Name Role Phone Tracy Olivares MD Primary Care Provider [phone] Allergies Active Allergy Reactions Criticality Noted Date [...] Type Department Care Team Description 09/06/2024 Telephone [facility] Neurosurgery - Medical [address] [place] [address] Harris Fischer MD Wants Appointment 08/29/2024 Telephone [facility] INFECTIOUS DISEASE TOWER B [address] [address] [place] [address] Indio Oliver MD Critical lab value 08/29/2024 Abstract [facility] INFECTIOUS DISEASE TOWER B [address] [facility] [place] [address] Indio Oliver MD 08/27/2024 Telephone [facility] INFECTIOUS DISEASE TOWER B [address] [facility] [address] [place] [address] Indio Oliver MD IV abx stop date 08/27/2024 Abstract [facility] INFECTIOUS DISEASE TOWER B [address] [place] [address] [place] [address] Indio Oliver MD 08/21/2024 External Device Data STL ABSTRACTION Provider, Abstract 08/21/2024 Telephone [facility] INFECTIOUS DISEASE TOWER B [address] [place] [address] [place] [address] Indio Oliver MD Labs Only 08/21/2024 Abstract [facility] INFECTIOUS DISEASE TOWER B [address] [place] [address] [place] [address] Indio Oliver MD 08/15/2024 Abstract [facility] Neurosurgery - Medical [place] [address] [place] [address] Harris Fischer MD 08/15/2024 Abstract [facility] INFECTIOUS DISEASE T[place] B [address] [place] [address] [place] [address] Indio Oliver MD 08/13/2024 Telephone [facility] INFECTIOUS DISEASE TOWER B [address] [place] [address] [place] [address] Indio Oliver MD Results 08/13/2024 Telephone [facility] Neurosurgery - Medical [place] [address] [place] [address] Harris Fischer MD Question 08/13/2024 Abstract [facility] INFECTIOUS DISEASE [place] B [address] [place] [address] [place] [address] Indio Oliver MD 08/08/2024 Telephone [facility] INFECTIOUS DISEASE [place] B [address] [place] [address] [place] [address] Indio Oliver MD IVABX stop date 07/31/2024 External Device Data STL ABSTRACTION Provider, Abstract 07/11/2024 Telephone [facility] Neurosurgery - Medical [place] [address] [place] [address] Harris Fischer MD TLSO Ivon 07/10/2024 10:00 AM CDT - 07/10/2024 11:59 PM CDT Hospital Encounter [facility] Emergency Medical Services [facility] [address] [place] [address] Dylan Jackson MD Ambulance, [facility] Discharge Disposition: Intermediate Care Facility 07/03/2024 External Device Data STL ABSTRACTION Provider, Abstract 06/28/2024 10:17 AM CDT Anesthesia Event [facility] Interventional Radiology [facility] [address] [place] [address] Gopal Cedeno MD 06/27/2024 12:46 AM CDT - 07/10/2024 12:43 PM CDT Hospital Encounter [facility] [address] [place] [address] Aissatou Lanza, Daljit Scales MD Kenguva, Venkata, MD Dundoo, Gayathri, MD Austin, Karen, MD Wang, Edward, MD Discitis of lumbar region Discharge Disposition: Discharged/transfer red to a senior living facility (SNF) with Medicare certificatio 06/27/2024 Travel from Last 3 Months Immunizations Name Administration Dates Next Due (PREVNAR 20)(6 WKS UP) PNEUM OCOCCAL CONJUGATE VACCINE 20-VALENT (PCV20), POLYSACCHARIDE [id number] CONJUGATE, ADJUVANT 0.5 ML (PF) IM 07/10/2024 [...] st Contact Info) Description 10/04/2024 10:00 AM HARVESTER 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 ?? DICTATION LOCATION: [address] Narrative 07/09/2024 3:30 PM CDT XR CHEST [...] None. IMPRESSION: No active disease. DICTATION LOCATION: [address] Sydnie Sequeira MD DIAGNOSTIC IMAGING O RDERABLES * (ABNORMAL) POC GLUCOSE (07/07/2024 9:25 PM CDT) Only the most recent of41 resultswithin the time period is included. [facility] GLUCOSE POC 127(H) 74 - 99 mg/dL 07/07/2024 9:[address] [facility] SPECIMEN SOURCE, GLUCOSE POC Whole Blood 07/07/2024 9:25 PM CDT [facility] LABORATORY [facility] COMMENT, GLU POC Notified RN/MD 07/07/2024 9:25 PM CDT [facility] Share Practice [facility] Blood, whole 07/07/2024 9:25 PM CDT 07/07/2024 9:33 PM CDT Sydnie Sequeira MD POINT OF CARE TESTIN G [facility] Share Practice [facility]# [id number] [address] [facility] [place] [address] * (ABNORMAL) CBC WITH DIFFERENTIAL (07/07/2024 5:10 AM CDT) Only the most recent of4 resultswithin the time period is included. [facility] WBC 7.0 4.0 - 9.8 K/uL 07/07/2024 6:08 AM [facility] LAB[facility]ATORY [facility] RBC 3.63(L) 3.90 - 4.90 M/uL 07/07/2024 6:08 AM CDT [facility] LABORATORY [facility] HEMOGLOBIN 10.3(L) 11.8 - 14.8 g/dL 07/07/2024 6:08 AM [facility] Share Practice [facility] HEMATOCRIT 33.4(L) 35.5 - 44.0 % 07/07/2024 6:08 AM T [facility] Share Practice [facility] MCV 92.0 82.0 - 99.0 fL 07/07/2024 6:08 AM T [facility] LABORATORY [facility] MCH 28.4 27.2 - 32.6 pg 07/07/2024 6:08 AM CDT [employer] LABORATORY SERVICES - [facility] MCHC 30.8(L) 31.5 - 35.5 g/dL 07/07/2024 6:08 AM CDT [employer] [facility] - [facility] RDW 16.3(H) 11.5 - 14.5 % 07/07/2024 6:08 AM CDT [employer] [facility] - [facility] RDW-STDEV 54.8(H) 37.1 - 48.7 fL 07/07/2024 6:08 AM CDT [employer] [facility] [facility] - [facility] PLATELETS 215 140 - 350 K/uL 07/07/2024 6:08 AM CDT [employer] [facility] - [facility] MPV 9.9 9.3 - 12.4 fL 07/07/2024 6:08 AM CDT [facility] [facility] [facility] - [facility] NEUTROPHILS 54 % 07/07/2024 6:08 AM CDT [facility] [facility] [facility] - [facility] LYMPHOCYTES 35 % 07/07/2024 6:08 AM CDT [employer] [facility] [facility] - [facility] MONOCYTES 8 % 07/07/2024 6:08 AM CDT [employer] LABOR[facility]ORY SERVICES - . [facility] EOSINOPHILS 3 % 07/07/2024 6:08 AM CDT [employer] [facility] [facility] - . [place] BASOPHILS 0 % 07/07/2024 6:08 AM CDT [facility] [facility] - . [facility] IMMATURE GRANULOCYTES 0 % 07/07/2024 6:08 AM CDT [facility] [facility] [facility] - . [facility] NEUTROPHIL ABSOLUTE 3.76 1.90 - 7.00 K/uL 07/07/2024 6:08 AM CDT [facility] [facility] LABORATORY SERVICES - . [facility] LYMPHOCYTE ABSOLUTE 2.42 0.70 - 4.50 K/uL 07/07/2024 6:08 AM CDT [facility] [facility] [facility]ORATORY SERVICES - . [facility] MONOCYTE ABSOLUTE 0.56 0.10 - 1.30 K/uL 07/07/2024 6:08 AM CDT [facility] [facility] [facility] SERVICES - . [facility] EOSINOPHIL ABSOLUTE 0.23 0.00 - 0.70 K/uL 07/07/2024 6:08 AM CDT [facility] [employer] [facility] LABORATORY SERVICES - . [facility] BASOPHILS ABSOLUTE 0.03 0.00 - 0.20 K/uL 07/07/2024 6:08 AM CDT [facility] [facility] [facility]ORATORY SERVICES - . [facility] IMMATURE GRANULOCYTES ABSOLUTE 0.02 0.00 - 0.03 K/uL 07/07/2024 6:08 AM T [employer] LABORATORY SERVICES [facility] Blood Venipuncture / Unknown 07/07/2024 5:10 AM CDT 07/07/2024 5:15 AM CDT Sydnie Sequeira MD HEMATOLOGY ORDERABLE S [facility] Share Practice SERVICES [facility] CLIA# [id number] [address] [facility] [place] [address] * (ABNORMAL) BASIC METABOLIC PANEL (07/07/2024 5:10 AM CDT) Only the most recent of3 resultswithin the time period is included. SODIUM 142 136 - 145 mmol/L 07/07/2024 5:54 AM [facility] [employer] LABORATORY SERVICES [facility] POTASSIUM 4.1 3.5 - 5.0 mmol/L 07/07/2024 5:54 AM [facility] [employer] LABORATORY SERVICES [facility] CHLORIDE 105 98 - 107 mmol/L 07/07/2024 5:54 AM [facility] [employer] LABORATORY SERVICES [facility] CO2 30(H) 22 - 29 mmol/L 07/07/2024 5:54 AM [facility] [employer] LABORATORY SERVICES [facility] CALCIUM 9.2 8.6 - 10.2 mg/dL 07/07/2024 5:54 AM [facility] [employer] LABORATORY SERVICES [facility]. [facility] BUN 15 8 - 23 mg/dL 07/07/2024 5:54 AM [facility]. [facility] CREATININE 0.67 0.51 - 0.95 mg/dL 07/07/2024 5:54 AM [facility] [employer] LABORATORY SERVICES [facility]. [facility] GLUCOSE 111(H) 74 - 99 mg/dL 07/07/2024 5:54 AM [facility] [employer] LABORATORY SERVICES [facility]. [facility] GFR >60 >=60 mL/min/1.7 3 sq meter 07/07/2024 5:54 AM T [employer] LABORATORY SERVICES - [facility] Comment:eGFR calculated with 2020 CKD-EPI equation. Vegetarian diet, extremely high or low muscle mass, and may affect results. Cystatin C with Glomerular Filtration Rate is a suitable alternative for these patients. ANION GAP 7(L) 8 - 16 mmol/L 07/07/2024 5:[address] [facility] Blood Venipuncture / Unknown 07/07/2024 5:10 AM CDT 07/07/2024 5:15 AM CDT Sydnie Sequeira MD CHEMISTRY ORDERABLES Performing Organization Address [facility] Co de Phone Number [facility]# [id number] [address] [place] [address] * MRSA PCR RAPID SCREEN (07/02/2024 9:50 AM CDT) Pathologist [facility] MRSA PCR RESULT MRSA not detected MRSA not detected 07/02/2024 11:[address] [facility] Surveillance ANTERIOR NARES SWAB / Unknown Collection / Unknown 07/02/2024 9:50 AM CDT 07/02/2024 9:56 [address] [facility] - 07/02/2024 11:21 AM CDT This assay is used to detect Methicillin-Resistant S. aureus (MRSA) colonization of the nares. PLEASE NOTE: ??This test has not been approved to monitor effectiveness of MRSA decolonization. Residual DNA may temporarily be present after successful decolonization. This test was performed using an FDA approved screening methodology. Indio Oliver MD MICROBIOLOGY - [facility] ORDERABLES Performing Organization Address [facility] Co de Phone Number [facility]# [id number] [address] [place] [address] * (ABNORMAL) VANCOMYCIN LEVEL TROUGH (07/02/2024 9:48 AM CDT) Only the most recent of2 resultswithin the time period is included. Pathologist [facility] Emergency Department VANCOMYCIN, TROUGH 18.7(H) 10.0 - 17.0 ug/mL 07/02/2024 10:[address] [facility] Blood Collection / Unknown 07/02/2024 9:48 AM CDT 07/02/2024 9:56 AM CDT Mia Fowler MD CHEMISTRY ORDERABLES [facility] CLIA# [id number] [address] [place] [address] * IR VENOUS ACCESS (07/02/2024 8:56 AM [...] CASE REPORT Surgical Pathology Report ? Case: [id number] ? Authorizing Provider: ??Simba Song MD ? Collected: ? 06/28/2024 11:21 AM ? [facility] ?Received: ?06/28/2024 02:21 PM ? Orthopaedics ? Pathologist: ? Ye Osborne MD ? Specimen: ?Bone, Vertebral body, L4 ? 4 3:47 PM [facility] FINAL DIAGNOSIS A. Bone, vertebral body, L4, biopsy - Fragments of viable bone with focally hypercellular marrow with trilineage hematopoiesis - No evidence of malignancy - No evidence of definitive osteomyelitis 4 3:47 PM [facility] S DESCRIPTION Received in one container labeled Keegan Crandall and vertebral body L4 is a 0.6 x 0.3 cm cylindrical core of white-perez bone which is entirely submitted in cassette A1 following decalcification. Cassette(s) decalcified in decal ll at the bench. [facility] 4 3:47 PM [facility] MICROSCOPIC DESCRIPTION The slides are labeled [id number] and Keegan Crandall. This case was seen in consultation with Dr. Janeth Cox who concurs. 4 3:47 PM [facility] CLINICAL INFORMATION No Dx found. 4 3:47 PM [facility] COMMENT Special stain, immunohistochemical, and/or in situ hybridization results are interpreted with controls that demonstrate appropriate staining reactions. Note on use of immunohistochemistry reagents and in situ hybridization probes: These tests were developed and their performance characteristics determined by [facility], Department of Laboratory Medicine. It has not [...] part or completely in the following laboratories: [facility], [place] #[id number] [address] [place] [address] [id number] [address] [place] [address] [facility], CLIA #[id number] [address] [place] [address] This report was created with the [employer] voice-activated dictation system. Inherent to this system is the possibility of syntax, grammar, punctuation and other errors that could impact the interpretation of the report. If there are interpretative questions about aspects of this report, please contact the performing pathologist. 3:[address] [facility] Tissue ENTIRE BONE ORGAN / Unknown Collection / Unknown 06/28/2024 11:21 AM CDT 06/28/2024 2:21 PM CDT Simba Song MD PATHOLOGY/CYTOLOGY O RDERABLES Performing Organization Address City/[facility]/ZIP Co de Phone Number [facility]# [id number] [address] [place] [address] * ANAEROBIC/AEROBIC CULTURE W GRAM STAIN (06/28/2024 11:21 AM CDT) CULTURE No aerobic or anaerobic growth 07/03/2024 10:[address] [facility] GRAM STAIN No organisms observed 07/03/2024 10:[address] [facility] GRAM STAIN 1+ (Rare or Occasional) Polymorphonuclear WBC 07/03/2024 10:[address] [facility] Tissue (Vertebral body) Collection / Unknown 06/28/2024 11:21 AM CDT 06/28/2024 11:47 AM CDT Simba Song MD MICROBIOLOGY - GENER AL ORDERABLES Performing Organization Address City/[facility]/ZIP Co de Phone Number [facility]# [id number] [address] [place] [address] * IR BIOPSY (06/28/2024 11:15 AM CDT) Anatomical Region Laterality Modality X-Ray Angiograph y 06/28/2024 11:1 7 AM CDT Impressions 06/28/2024 3:50 PM CDT IMPRESSION: Fluoroscopic guided biopsy of the L4 vertebral body. DICTATION LOCATION: Location 1, [facility] Narrative 06/28/2024 3:50 PM CDT FLUOROSCOPIC-GUIDED PERCUTANEOUS [...] L4 vertebral body. DICTATION LOCATION: Location 1, [facility] Indio Oliver MD IR ORDERABLES * [place] ANES INSERT ENDOTRACHEAL AIRWAY (06/28/2024 10:35 AM [...] resultswithin the time period is included. Pathologist [facility] BLOOD CULTURE No growth 07/02/2024 3:[address] [facility] Blood (Hand, right) Venipuncture / Unknown 06/27/2024 2:44 PM CDT 06/27/2024 2:51 PM CDT Daljit Bravo MD MICROBIOLOGY - GENERAL ORDERABLES Performing Organization Address City/State/[facility] Co de Phone Number [facility] Share Practice [facility]# [id number] [address] [facility] [place] [address] * PROTIME-INR (06/27/2024 2:32 PM CDT) [facility] PROTIME 13.8 12.7 - 15.1 Seconds 06/27/2024 2:[address] [facility] INR 1.1 0.9 - 1.1 06/27/2024 2:[address] [facility] Blood Venipuncture / Unknown 06/27/2024 2:32 PM CDT 06/27/2024 2:40 PM CDT Narrative [facility] LABORATORY [facility] - 06/27/2024 2:53 PM CDT INR Therapeutic Range: Adult: ?? 2.0 - 3.0 for pulmonary embolism or prophylaxis against venous ?thrombosis or systemic embolization. 2.0 - 3.0 for patients with tissue heart valves. 2.5 - 3.5 for patients with mechanical heart valves or post IN. Pediatric ??(12 years and under): 1.5 - 3.0 Although the target range in children is not well established, ?INR values of 1.5 - 3.0 are recommended for most patients. ?Higher values have been used in children with prosthetic ?cardiac valves and hereditary clotting disorders. [place] (<3 days) therapeutic ranges have not been established. Kt Bruner MD HEMATOLOGY ORDERABLE S Performing Organization Address [facility] Co de Phone Number [facility]# [id number] [address] [place] [address] * (ABNORMAL) SEDIMENTATION RATE (06/27/2024 2:31 PM CDT) ESR (SEDIMENTATION RATE) 42(H) <=30 mm/Hr 06/27/2024 2:52 PM CDT [facility] LABORATORY [facility] Blood Venipuncture / Unknown 06/27/2024 2:31 PM CDT 06/27/2024 2:40 PM CDT Daljit Bravo MD HEMATOLOGY O RDERABLES Performing Organization Address [facility] Co de Phone Number [facility]# [id number] [address] [place] [address] * (ABNORMAL) C-REACTIVE PROTEIN (06/27/2024 2:31 PM CDT) CRP 33.8(H) <5.0 mg/L 06/27/2024 3:15 PM CDT [facility] LABORATORY [facility] Blood Venipuncture / Unknown 06/27/2024 2:31 PM CDT 06/27/2024 2:40 PM CDT Daljit Bravo MD CHEMISTRY OR DERABLES Performing Organization Address [facility]/ZIP Co de Phone Number [facility] Share Practice [facility]# [id number] [address] [place] [address] * PHOSPHORUS (06/27/2024 2:31 PM CDT) PHOSPHORUS 3.5 2.5 - 4.5 mg/dL 06/27/2024 3:15 PM CDT [facility] LABORATORY [facility] Blood Venipuncture / Unknown 06/27/2024 2:31 PM CDT 06/27/2024 2:40 PM CDT Daljit Bravo MD CHEMISTRY OR DERABLES Performing Organization Address City/[facility]/ZIP Co de Phone Number [facility] Share Practice [facility]# [id number] [address] [place] [address] * MAGNESIUM LEVEL (06/27/2024 2:31 PM CDT) Pathologist [facility] MAGNESIUM 2.2 1.6 - 2.4 mg/dL 06/27/2024 3:15 PM CDT [facility] LABORATORY [facility] Blood Venipuncture / Unknown 06/27/2024 2:31 PM CDT 06/27/2024 2:40 PM CDT Daljit Bravo MD CHEMISTRY OR DERABLES [facility] Share Practice [facility]# [id number] [address] [place] [address] * (ABNORMAL) COMPREHENSIVE METABOLIC PANEL (06/27/2024 2:31 PM CDT) Pathologist [facility] SODIUM 141 136 - 145 mmol/L 06/27/2024 3:15 PM CDT [facility] LABORATORY [facility] POTASSIUM 3.8 3.5 - 5.0 mmol/L 06/27/2024 3:15 PM CDT [facility] LABORATORY SERVICES [facility] CHLORIDE 105 98 - 107 mmol/L 06/27/2024 3:15 PM [facility] [employer] LABORATORY SERVICES - [facility] CO2 28 22 - 29 mmol/L 06/27/2024 3:15 PM [facility] [employer] LABORATORY SERVICES - [facility] CALCIUM 9.5 8.6 - 10.2 mg/dL 06/27/2024 3:15 PM [employer] LABORATORY SERVICES - [facility] BUN 10 8 - 23 mg/dL 06/27/2024 3:15 PM [facility] [employer] LABORATORY SERVICES - . [facility] CREATININE 0.63 0.51 - 0.95 mg/dL 06/27/2024 3:15 PM [employer] LABORATORY SERVICES - . [facility] GLUCOSE 142(H) 74 - 99 mg/dL 06/27/2024 3:15 PM [facility] [employer] LABORATORY SERVICES - . [facility] TOTAL PROTEIN 7.2 6.7 - 8.6 g/dL 06/27/2024 3:15 PM [employer] LABORATORY SERVICES - . [facility] ALBUMIN 3.7 3.5 - 5.2 g/dL 06/27/2024 3:15 PM [employer] LABORATORY SERVICES - . [facility] BILIRUBIN TOTAL 0.4 0.2 - 1.1 mg/dL 06/27/2024 3:15 PM [employer] LABORATORY SERVICES - . [facility] ALKALINE PHOSPHATASE 157(H) 35 - 104 U/L 06/27/2024 3:15 PM [employer] LABORATORY SERVICES - . [facility] AST 18 <33 U/L 06/27/2024 3:15 PM [employer] LABORATORY SERVICES - . [facility] ALT 10 <34 U/L 06/27/2024 3:15 PM [employer] LABORATORY SERVICES - . [facility] GFR >60 >=60 mL/min/1.7 3 sq meter 06/27/2024 3:15 PM [employer] LABORATORY SERVICES - [facility] Comment:eGFR calculated with 2020 CKD-EPI equation. Vegetarian diet, extremely high or low muscle mass, and may affect results. Cystatin C with Glomerular Filtration Rate is a suitable alternative for these patients. ANION GAP 8 8 - 16 mmol/L 06/27/2024 3:15 PM [employer] LABORATORY SERVICES - [facility] Blood Venipuncture / Unknown 06/27/2024 2:31 PM CDT 06/27/2024 2:[address] [facility] - 06/27/2024 3:15 PM CDT Samples containing indocyanine green cause interferences on Total and/or Direct Bilirubin and must not be measured. Kt Bruner MD CHEMISTRY ORDERABLES Performing Organization Address [facility]/State/ZIP Co de Phone Number [facility] CLIA# [id number] [address] [facility] [facility] [place] [address] * EKG 12-LEAD (06/27/2024 7:04 AM CDT) 06/27/2024 7:04 AM CDT Narrative INTERFACE SYSTEM - 06/27/2024 8:12 AM CDT ? [facility] ? [address] [place] [address] ? Test Date: ?2024-06-27 Pat Name: ? KEEGAN CRANDALL ? Department: ?? 100 ?Room: ? 2372 1 Gender: ? Female ? Occupational Rehabilitation Aide: ?? 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 Requested By: AISSATOU Marino Order Number: [id number] ? Ashley HOFFMAN: ?? Neal Arango ? Measurements Intervals ?[place] ? Rate: ? 77 ? P: ?55 [place]: ? 171 ?QRS: ?-11 QRSD: ? 92 ? T: ?33 QT: ? 380 ? QTc: ?430 ? Interpretive Statements SINUS RHYTHM Electronically Signed On 06-27-2024 8:12:59 CDT by Neal Arango Procedure Note Neal Arango MD - 06/27/2024 [facility] [address] [place] [address] Test Date: 2024-06-27 Pat Name: KEEGAN CRANDALL Department: 100 Room: 2372 1 Gender: Female Occupational Rehabilitation Aide: Geronimo : 1955 Requested By: AISSATOU Marino Order Number: [id number] Reading MD: Neal Arango Measurements Intervals [place] Rate: 77 P: 55 [place]: 171 QRS: -11 QRSD: 92 T: 33 [...] noted as described. ?? DICTATION LOCATION: Location [address] [place] [address] 06/27/2024 8:19 AM CDT EXAM: MRI LUMBAR [...] narrowing noted as described. DICTATION LOCATION: Location 9 - [facility] Daljit Bravo MD MR ORDERABLE S from Last 3 Months Advance Directives For more information, please contact: [phone] * Full Code (Latest Code Status on File) Date Activated Date Inactivated Comments 06/28/2024 11:06 AM 07/10/2024 3:01 PM * Full Code Date Activated Date Inactivated Comments 06/27/2024 6:03 AM 06/28/2024 11:06 AM * Default Full Code - Needs Discussion Date Activated Date Inactivated Comments 06/27/2024 1:09 AM 06/27/2024 6:[address] Relationship Specialty Start Date End Date Tracy Olivares MD [address] [place], [place] [id number] PCP - General Internal Medicine 07/02/24
--- OUTSIDE RECORDS SUMMARY | 2024-09-07 15:29 | XMS_ITS | Encounter Summary ---
Author Organization [facility] Address [address] [place] [address] Care Team Providers Care Fish Filleter Name Role Phone Tracy Olivares MD Primary Care Provider [phone] Reason for Visit * Reason Onset Date Comments Critical lab value 08/29/2024 Encounter Details Date Type Department Care Team (Late st Contact Info) Description 08/29/2024 Telephone [facility] INFECTIOUS DISEASE [place] [address] [place] [address] Indio Oliver MD [address] [place] [address] Critical lab value Social History [...] included. Patient is currently at the ER ([facility]). She was advised by another physician as well as us to been seen due to potassium level. Indio Oliver MD Gowen, Amanda L, LPN Please ask patient to go to nearest ER as her potassium level is critical and it needs to be addressed urgently. Thanks EATION MANAGER documented in this encounter Plan of Treatment Upcoming Encounters Date Type Department Care Team (Late st Contact Info) Description 10/04/2024 10:00 AM RECREATION MANAGER Office Visit [facility] Neurosurgery - [facility] [address] [facility] [address] [place] [address] Harris Fischer MD [address] [facility] [address] [place] [address] documented as of this encounter Visit Diagnoses Not on filedocumented in this encounter Care Teams Fish Filleter Relationship Specialty Start Date End Date Tracy Olivares MD [address] [place] [address] PCP - General Internal Medicine 07/02/24 documented as of this encounter
--- OUTSIDE RECORDS SUMMARY | 2024-09-07 15:29 | XMS_ITS | Encounter Summary ---
Author Organization [facility] Address [address] [place] [address] Care Team Providers Care Economic Forecaster Name Role Phone Tracy Olivares MD Primary Care Provider [phone] Encounter Details Date Type Department Care Team [...] st Contact Info) Description 10/04/2024 10:00 AM CONTAINER FINISHER Office Visit [facility] Neurosurgery - [facility] [place] [address] [facility] [address] [place] [address] Harris Fischer MD [address] [facility] [address] [place] [address] documented as of this encounter Visit Diagnoses Not on filedocumented in this encounter Care Teams Economic Forecaster Relationship Specialty Start Date End Date Tracy Olivares MD [address] [place] [address] PCP - General Internal Medicine 07/02/24 documented as of this encounter
--- OUTSIDE RECORDS SUMMARY | 2024-09-07 15:30 | XMS_ITS | Encounter Summary ---
Author Organization [facility] Address [address] [place] [address] Care Team Providers Care Material Control Associate Name Role Phone Omid Douglass MD Primary Care Provider [phone] Reason for Visit * Reason Onset Date Comments SNF Outreach 07/24/2024 Encounter Details Date Type Department Care Team (Late st Contact Info) Description 07/24/[address] [facility] Medical Group Post Acute Care [address] [address] Ethel Feliciano MA [address] [place] [address] [address] [place] [id number] [facility] Outreach Social History Tobacco Use Types Packs/Day Years Used Date Smoking Tobacco: Never Assessed Personal Safety Answer Date Recorded Have you ever been in or are you currently in a harmful physical or emotional relationship or is someone making you feel afraid or unsafe? Denies 07/24/2024 Comments Unknown Sex and Gender Information Value Date Recorded Sex Assigned at Not on file Legal Sex Female 12:03 AM RECEPTION Gender Identity Not on file Sexual Orientation Not on file documented as of this encounter Miscellaneous Notes * Telephone Encounter - Ethel Feliciano MA - 07/24/2024 4:59 PM CST Patient has discharged from [facility] and is no longer under Dr. Genaro Jaramillo' care. PTION documented in this encounter Plan of Treatment Not on file documented as of this encounter Visit Diagnoses Not on filedocumented in this encounter Care Teams Material Control Associate Relationship Specialty Start Date End Date Omid Douglass MD [facility] [place] [address] PCP - General 12/15/11 documented as of this encounter
--- OUTSIDE RECORDS SUMMARY | 2024-09-07 15:30 | XMS_ITS | Encounter Summary ---
Author Organization [facility] Healthcare Address [address] [place] [address] Care Team Providers Care Casino Surveillance Officer Name Role Phone Omid Douglass MD Primary Care Provider [phone] Reason for Referral * Home Health (Routine) - Pending Review Specialty Diagnoses / Procedures Referred By Heidi t Referred To Contact Home Health Services Diagnoses Osteomyelitis of lumbar spine (HCC) Markus Snowden MD [address] [place] [address] Phone: tel: fax: [address] [address] Phone: tel: fax: Referral ID Status Reason Start Date Expiration Date Visits Requested Visits Authorized [id number] Pending Review Specialty Services Required 4 08/30/2025 1 1 [facility] Primary disciplines requested: Physical Therapy Home Health Services Therapy to Eval/Tx Therapy instructions: Evaluation/treatment Requested Start of Care Date: 24-48 hours Physician to follow patient's care (the person listed here will be responsible for signing ongoing orders): PCP I attest that I or another qualified licensed provider saw the patient 90 days prior to or 30 days post admission and this face to face encounter meets the necessary Home Health requirements. The face to face encounter occurred on (date): 07/31/2024 The encounter with the patient was in whole, or in part, for the following medical condition, which is the primary reason for home health care. (List medical condition): osteomyelitis I certify that, based on my findings, the following services are medically necessary skilled home health services: Therapy to Eval/Tx Clinical findings that support the need for home care: Medical condition requiring skilled assessment/education I certify that my clinical findings support patient's homebound status. Homebound criteria met because: Poor endurance ING INSPECTOR Reason for Visit * Reason Comments Wellness Visit * Auth/Cert (Routine) Specialty Diagnoses / Procedures Referred By Contac t Referred To Contact Diagnoses Osteomyelitis of lumbar spine (HCC) Complication associated with peripherally inserted central catheter (PICC), initial encounter Procedures NA Referral ID Status Reason Start Date Expiration Date Visits Re quested Visits Authorized [id number] 1 1 Encounter Details Date Type Department Care Team (Late st Contact Info) Description 07/30/2024 5:33 PM BEAMING INSPECTOR - 07/31/2024 12:45 PM BEAMING INSPECTOR Emergency [address] [id number] Rashi Ingram MD [address] [place] [address] [place] [address] Sadi Graham MD [address] [place] [phone] Nichelle Clement MD [address] [place] [phone] Markus Snowden MD [address] [place] [id number] Complication associated with peripherally inserted central catheter (PICC), initial encounter (Primary Dx); Osteomyelitis of lumbar spine (HCC) Discharge Disposition: Discharge to home, home health skilled care Social History Tobacco Use Types Packs/Day Years Used Date Smoking Tobacco: Never Tobacco Cessation:Counseling Given: Not Answered Personal Safety Answer Date Recorded Have you ever been in or are you currently in a harmful physical or emotional relationship or is someone making you feel afraid or unsafe? Denies 07/30/2024 Comments Unknown Sex and Gender Information Value Date Recorded Sex Assigned at Not on file Legal Sex Female 12:03 AM BEAMING INSPECTOR Gender Identity Not on file Sexual Orientation Not on file documented as of this encounter Last Filed Vital Signs Vital Sign Reading Time Taken Comments Blood Pressure 135/79 07/31/2024 11:32 AM BEAMING INSPECTOR Pulse 80 07/31/2024 11:32 AM BEAMING INSPECTOR Temperature 36.8 ??C (98.2 ??F) 07/31/2024 1 1:32 AM BEAMING INSPECTOR Respiratory Rate 18 07/31/2024 11:3 2 AM BEAMING INSPECTOR Oxygen Saturation 100% 07/31/2024 11: 32 AM BEAMING INSPECTOR Inhaled Oxygen Concentration - - Weight 125.8 kg (277 lb 6.4 oz) 024 11:31 PM BEAMING INSPECTOR Height 167.6 cm (5' 6 ) 07/30/2024 11:3 1 PM BEAMING INSPECTOR Body Mass Index 44.77 07/30/2024 11:31 PM BEAMING INSPECTOR documented in this encounter Discharge Summaries * Markus Snowden MD - 07/31/2024 11:30 AM CST Inpatient Discharge Summary Patient Name - Keegan Amaya Patient Age - 68 yrs Patient - [id number] [facility] - [id number] Document Creation Date: 07/31/2024 Admitting Provider, : aSdi Graham MD Discharge Provider, : Markus Snowden MD Primary Care Physician at Discharge: Omid Douglass MD [phone] Admission Date: 07/30/2024 Discharge Date/time: 07/31/2024 Admission Location: [facility] LOS - LOS: 0 days Hospital Problems/Diagnoses Principal Problem: Complication associated with peripherally inserted central catheter (PICC), initial encounter Active Problems: Displacement of peripherally inserted central catheter (PICC) ([facility]/HCC) (HCC) Diabetic polyneuropathy associated with diabetes mellitus due to underlying condition ([facility]) (HCC) Metabolic syndrome Hypercalcemia Transaminitis Hospital Course: 68yo F w/ hx of epidural abscess, vertebral osteomyelitis, DM2 w/ neuropathy, FAISAL, obesity, COPD, asthma, HTN who presented on 07/30 pm due to malfunctioning PICC line in the left upper arm. Patient came in to ED and the PICC line was removed, site has dry dressing with no hematoma. ED inserted a new midline in the right upper arm but could not flush and not working. Peripheral IV inserted in theleft AC gauge 20. Patient admitted for PICC line placement in the morning for long-term antibiotic treatment when discharged. Per note she was admitted 07/10 - 07/30 for L4-L5 Osteomyelitis/discitis with epidural phlegmon at [facility]. S/p IR biopsy on 06/28 . Pathology reveals no malignancy and no evidence of definitive osteomyelitis. Neurosurgery consulted - No indication for neurosurgicalintervention. She was on TLSO brace applied. Seen by ID -- Rx IV cefepime 2000mg every 12 hours for6 weeks (~06/28 through 08/09). No other symptoms except for mild chronic lower back pain. New PICC line placed 07/31 am by vascular access team. Okay to discharge 07/31. Discharge Details Physical Exam at Discharge: Discharge Condition: stable Pulse: 80 Resp: 18 BP: 138/83 Temp: 36.8 ??C (98.2 ??F) Weight: 125.8 kg (277 lb 6.4 oz) Pertinent Exam Findings at Discharge: Gen: NAD HEENT: sclerae anicteric. Resp: nonlabored CV: RRR GI: NT, ND Ext: normal ROM Neuro: A/Ox3, non-focal Discharge Disposition: home Code Status at Discharge: Full Code Allergies: Celecoxib and Propoxyphene Discharge Medications: Your medication list ASK your doctor about these medications Instructions Last Dose Given Next Dose Due acetaminophen 500 mg tablet Commonly known as: TYLENOL Take 1 tablet (500 mg total) by mouth every 6 (six) hours as needed for pain And 2 tabs BID albuterol HFA 90 mcg/actuation inhaler Commonly known as: PROVENTIL HFA,VENTOLIN HFA,PROAIR HFA Inhale 2 puffs every 6 (six) hours as needed aspirin 81 mg enteric coated tablet Take 1 tablet (81 mg total) by mouth daily atorvastatin 20 mg tablet Commonly known as: LIPITOR Take 1 tablet (20 mg total) by mouth daily cefepime 2,000 mg/100 mL IVBP Commonly known as: MAXIPIME Infuse 100 mL (2,000 mg total) into a venous catheter every 12 (twelve) hours cholecalciferol 2000 unit capsule Commonly known as: VITAMIN D-3 Take 1 capsule (2,000 Units total) by mouth daily cyclobenzaprine 10 mg tablet Commonly known as: FLEXERIL Take 1 tablet (10 mg total) by mouth 3 (three) times a day as needed empagliflozin 25 mg tablet Commonly known as: JARDIANCE Take 1 tablet (25 mg total) by mouth daily famotidine 20 mg tablet Commonly known as: PEPCID Take 1 tablet (20 mg total) by mouth 2 (two) times a day zipsyvpjufq-vrghuitoo-ijltcgnt 200-62.5-25 mcg inhaler Commonly known as: TRELEGY ELLIPTA Inhale 1 puff daily gabapentin 300 mg capsule Commonly known as: NEURONTIN Take 1 capsule (300 mg total) by mouth 2 (two) times a day HYDROcodone-acetaminophen 5-325 mg per tablet Commonly known as: NORCO Take 1 tablet by mouth every 8 (eight) hours as needed for pain lidocaine 5 % Commonly known as: LIDODERM Place 1 patch on the skin daily Remove & discard patch within 12 hours or as directed by MD. melatonin tablet Take 1 tablet (3 mg total) by mouth nightly as needed pantoprazole DR 40 mg EC tablet Commonly known as: PROTONIX Take 1 tablet (40 mg total) by mouth daily polyethylene glycol 17 gram packet Commonly known as: MIRALAX Take 1 packet (17 g total) by mouth daily as needed senna 8.6 mg tablet Commonly known as: SENOKOT Take 1 tablet by mouth 2 (two) times a day as needed Time Spent in Discharge Process: I have spent 28 minutes on discharge planning activities. Time spent was on Coordination of care, Follow up , Counselling with patient/family, discharge exam, and parent/patient education Test Results Pending at Discharge (If Blank, None Found): Operative Procedures Performed (If Blank, None Found): Outpatient Follow-Up: Contact Information for Follow-ups Omid Douglass MD Specialty: Family Medicine, Obstetrics and Gynecology Relationship: PCP - General [address] [place] [address] [address] [place] [facility] [address] Next Steps: Follow up Please schedule an appointment with the following provider(s): Omid Douglass MD [address] [place] [facility] [id number] ANCILLARY INFORMATION Other Procedures & Diagnostic Tests: XR Chest 1 Vw Portable Result Date: 07/30/2024 EXAM DESCRIPTION: XR CHEST 1 VIEW REASON FOR STUDY: Other (type), Verify PICC line placement. Pt toED with concern for PICC line. Reports home nurse reported PICC line was too far out when she came out to change the dressing. Pt reports recently discharged after admission for infection in my spine. Denies any arm pain, SOB, CP, fever or chills. Pt states PICC line was placed June 24. TECHNIQUE: Single radiographic view(s) of the chest. COMPARISON: None FINDINGS: LUNGS: No focal opacity, pleural effusion, or pneumothorax. HEART/MEDIASTINUM: Cardiac silhouette normal in size. Mediastinal and hilar contours appear normal. LINES/TUBES: Left PICC terminates in the distal left subclavian vein. BONES: No acute osseous abnormality. IMPRESSION: No acute cardiopulmonary abnormality. Left PICCterminates in the distal left subclavian vein. THIS IS AN ELECTRONICALLY VERIFIED FINAL REPORT 07/30/2024 3:30 PM - Electronically signed by Radha White M.D. FT T: Report ID: [id number] Reading Location: [id number] Recent Labs: Recent Labs Lab Units 07/30/242123 WBC K/cumm 5.8 HEMOGLOBIN g/dL 12.4 HEMATOCRIT % 39.6 PLATELETS K/cumm 227 Recent Labs Lab Units 07/30/242123 WBC K/cumm 5.8 HEMOGLOBIN g/dL 12.4 HEMATOCRIT % 39.6 PLATELETS K/cumm 227 NEUTROS PCT % 58.3 LYMPHS PCT % 25.5 MONOS PCT % 9.1 EOS PCT % 6.0 Recent Labs Lab Units 07/31/24 0730 07/30/24 2338 07/30/244 SODIUM mmol/L -- -- 139 POTASSIUM PLASMA mmol/L -- -- 4.2 CHLORIDE mmol/L -- -- 102 CO2 mmol/L -- -- 26 BUN SERUM mg/dL -- -- 15 CREATININE mg/dL -- -- 0.60 TIC-DUW-YVOAREQ mL/min/1.73 m2 -- -- >90 GLUCOSE mg/dL -- -- 123 POC GLUCOSE MONITOR mg/dL 99 < > -- CALCIUM mg/dL -- -- 10.5* ALBUMIN g/dL -- -- 3.9 < > = values in this interval not displayed. Recent Labs Lab Units 07/31/24 0730 07/30/248 07/30/242123 SODIUM mmol/L -- -- 139 POTASSIUM PLASMA mmol/L -- -- 4.2 CHLORIDE mmol/L -- -- 102 CO2 mmol/L -- -- 26 ANIONGAP mmol/L -- -- 11 GLUCOSE mg/dL -- -- 123 POC GLUCOSE MONITOR mg/dL 99 99 -- BUN SERUM mg/dL -- -- 15 CREATININE mg/dL -- -- 0.60 CALCIUM mg/dL -- -- 10.5* ALBUMIN g/dL -- -- 3.9 ALK PHOS Units/L -- -- 153* ALT Units/L -- -- 19 AST Units/L -- -- 38 BILIRUBIN TOTAL mg/dL -- -- 0.4 Recent Labs Lab Units 07/30/242123 ALK PHOS Units/L 153* BILIRUBIN TOTAL mg/dL 0.4 TOTAL PROTEIN g/dL 7.3 ALT Units/L 19 AST Units/L 38 Recent Labs Lab Units 07/30/242123 PROTIME (PT) sec 13.2 INR 1.0 APTT sec 32 Lab Results Component Value Date GLUCOSE 99 07/31/2024 GLUCOSE 99 07/30/2024 GLUCOSE 123 07/30/2024 Implant: Implants No active implants to display in this view. General Precautions (If Blank, None Found): Isolation Status: No active isolations Nutritional Status and in-house recommendations: Dietary Orders (From admission, onward) Start Ordered 07/31/24 2100 Bedtime snack At bedtime Comments: If bedtime BG is less than 100mg/dl, give patient a 15 gram carbohydrate snack. 07/30/24235507/30/242352 Adult Diet Restricted; 4 CHO/Meal Diet effective now Question Answer Comment (MHB/MHE) Diet type Restricted Diabetic: 4 CHO/Meal 07/30/242352 Anticoagulation Indication: INR: 07/30/2024: 1.0 Warfarin Administrations (last 168 hours) None Oxygen Status: O2 Therapy for the past 12 hrs: O2 Therapy 07/31/24 0730 None (Room air) 07/31/24 0605 None (Room air) 07/30/24 2331 None (Room air) Wound Care Instructions Active LDAs (If Blank, None Found): Peripheral IV 07/30/24 20 G Left Antecubital (Active) Placement Date/Time: 07/30/242230 Type: Angiocath Size (Gauge): 20 G Location Orientation: Left Location: Antecubital Technique: Ultrasound guidance Verification: Blood Return Insertion attempts: 1 Patient Tolerance: Tolerated well Patient Emergency Contact: Primary Emergency Contact: César Amaya Immunization Status at Discharge Immunization History Administered Date(s) Administered COVID-19 mRNA (Omnikles) 0.3 mL (30 mcg) vaccine (12 years and up) 06/08/2023 Pfizer SARS-CoV-2 Monovalent Vaccination (12+ Yrs) [place]-READY TO USE 04/28/2022 Pfizer SARS-CoV-2 Monovalent Vaccination (12+ Yrs) PURPLE 12/09/2020, 12/30/2020 Markus Snowden MD ING INSPECTOR documented in this encounter Discharge Instructions * Discharge Instructions* Markus Snowden MD - 07/30/2024 7:52 PM BEAMING INSPECTOR ING INSPECTOR ING INSPECTOR * Attachments The following attachments cannot be sent through Care Everywhere. * Wellness Visit for Adults (Master Black Belt) (Macedonian) documented in this encounter Medications at Time of Discharge acetaminophen (TYLENOL) 500 mg tablet Take 1 tablet (500 mg total) by mouth every 6 (six) hours as needed for pain And 2 tabs BID 07/23/2024 albuterol HFA (PROVENTIL HFA,VENTOLIN HFA,PROAIR HFA) 90 mcg/actuation inhaler Inhale 2 puffs every 6 (six) hours as needed 03/20/2024 aspirin 81 mg enteric coated tablet Take 1 tablet (81 mg total) by mouth daily 07/10/2024 atorvastatin (LIPITOR) 20 mg tablet Take 1 tablet (20 mg total) by mouth daily 03/20/2024 cefepime (MAXIPIME) 2,000 mg/100 mL IVBP Infuse 100 mL (2,000 mg total) into a venous catheter every 12 (twelve) hours cholecalciferol (VITAMIN D-3) 2000 unit capsule Take 1 capsule (2,000 Units total) by mouth daily 07/10/2024 empagliflozin (JARDIANCE) 25 mg tablet Take 1 tablet (25 mg total) by mouth daily 03/27/2024 famotidine (PEPCID) 20 mg tablet Take 1 tablet (20 mg total) by mouth 2 (two) times a day 03/20/2024 fluticasone-umec lidin-vilanter (TRELEGY ELLIPTA) 200-62.5-25 mcg inhaler Inhale 1 puff daily 07/10/2024 gabapentin (NEURONTIN) 300 mg capsule Take 1 capsule (300 mg total) by mouth 2 (two) times a day 04/25/2024 lidocaine (LIDODERM) 5 % Place 1 patch on the skin daily Remove & discard patch within 12 hours or as directed by . 60 patch 07/23/2024 melatonin tablet Take 1 tablet (3 mg total) by mouth nightly as needed 07/02/[address] (PROTONIX) 40 mg EC tablet Take 1 tablet (40 mg total) by mouth daily polyethylene glycol (MIRALAX) 17 gram packet Take 1 packet (17 g total) by mouth daily as needed 07/02/2024 senna (SENOKOT) 8.6 mg tablet Take 1 tablet by mouth 2 (two) times a day as needed HYDROcodone-acet aminophen (NORCO) 5-325 mg per tablet Take 1 tablet by mouth every 8 (eight) hours as needed for pain 30 tablet 07/23/2024 08/22/2024 documented as of this encounter Discharge Disposition Disposition Code Departure Means Destination Comment s Discharge to home, home health skilled care documented in this encounter H&P Notes * Hernan Mike NP - 07/30/2024 10:52 PM CST Images from the original note were not included. History and Physical Date of Service: 07/30/2024 Primary Care Provider: Omid Douglass MD [phone] CHIEF COMPLAINT: Presents to the ED with a chief complaint of malfunctioning PICC line. HPI: Patient is a 68 y.o. female with a PMHx significant for epidural abscess,.vertebral osteomyelitis, DM2 w/ neuropathy, FAISAL, obesity, COPD, asthma, hyperlipidemia, HTN, GERD. Patient came in todaydue to malfunctioning PICC line in the left upper arm. She was visited by home health RN for IV antibiotic treatment and discovered PICC line site is custodial out. Patient came in to ED and the PICC line was removed, site has dry dressing with no hematoma. ED inserted a new midline in the right upper arm but could not flush and not working. Peripheral IV inserted in the left AC gauge 20. Patient admitted tonight for PICC line placement in the morning for long-term antibiotic treatment when discharged. Per note she was admitted 07/10 - 07/30 for L4-L5 Osteomyelitis/discitis with epidural phlegmon at [facility]. S/p IR biopsy on 06/28 . Pathology reveals no malignancy and no evidence of definitive osteomyelitis. Neurosurgery consulted - No indication for neurosurgical intervention. She was on TLSO brace applied. Seen by ID -- Rx IV cefepime 2000mg every 12 hours for 6 weeks (~06/28 through 08/09). No other symptoms except for mild chronic lower back pain. Remarkable labs include calcium 10.5, alkaline phos 153, the rest are okay.Chest x-ray confirmed noacute cardiopulmonary abnormality. Left PICC terminates in the distal left subclavian vein. She wasgiven cefepime IV 2 g. ASSESSMENT/PLAN: Principal Problem: Complication associated with peripherally inserted central catheter (PICC), initial encounter Resolved Problems: No resolved hospital problems. Complication associated with peripherally inserted central catheter (PICC), initial encounter Malfunctioning left upper arm PICC line -See official chest x-ray results. The site is dry and intact covered with small dry gauze and transparent dressing. -Plan for PICC line placement in a.m. -Continue cefepime 2 g IV every 12 hours Chronic lower back pain Neuropathy secondary to DM -Lidoderm patch -Continue home Neurontin Metabolic syndrome DM -A1c -diabetic diet -Accu-Chek a.c. HS -sliding scale Obesity -will benefit from dietary modification to promote healthy weight loss -weight control and exercise Hyperlipidemia -continue home Lipitor Secondary Hypertension -blood pressure in the 160s Hypercalcemia 10.5 Transaminitis -Alkaline phos 153 -Monitor No past medical history on file. No past surgical history on file. (Not in a hospital admission) Allergies Allergen Reactions Celecoxib Itching Propoxyphene Unknown Social History Tobacco Use Smoking status: Not on file Smokeless tobacco: Not on file Substance and Sexual Activity Drug use: Not on file Sexual activity: Not on file Alcohol Use: Not on file No family history on file. Review of Systems: Review of Systems Constitutional: Negative for chills and fever. HENT: Negative. Eyes: Negative. Respiratory: Negative. Cardiovascular: Negative. Gastrointestinal: Negative. Endocrine: Negative. Genitourinary: Negative. Musculoskeletal: Positive for back pain. Lower back Skin: Negative. Neurological: Negative. Hematological: Negative. Psychiatric/Behavioral: Negative. OBJECTIVE: Vitals: Arrival Vitals [07/30/24 1402] Temp 36.7 ??C (98.1 ??F) Pulse 92 Resp 22 BP (!) 169/101 SpO2 99 % Temp src Oral Heart Rate Source Pulse Oximetry Patient Position Sitting BP Location FiO2 (%) Most Recent : Vitals: 07/30/24 1413 07/30/24 1555 07/30/24 1734 07/30/24 2210 BP: 131/84 146/92 131/64 Patient Position: Pulse: 83 78 85 Resp: 19 21 18 Temp: TempSrc: SpO2: 100% 99% 98% Weight: 128.7 kg (283 lb 11.7 oz) No intake/output data recorded. No intake/output data recorded. Physical Exam: Physical Exam Vitals and nursing note reviewed. Constitutional: Appearance: She is obese. HENT: Head: Normocephalic and atraumatic. Nose: Nose normal. Mouth/Throat: Mouth: Mucous membranes are moist. Eyes: Extraocular Movements: Extraocular movements intact. Cardiovascular: Rate and Rhythm: Normal rate. Pulses: Normal pulses. Heart sounds: Normal heart sounds. Pulmonary: Effort: Pulmonary effort is normal. Breath sounds: Normal breath sounds. Abdominal: General: Bowel sounds are normal. Palpations: Abdomen is soft. Tenderness: There is no abdominal tenderness. Musculoskeletal: General: Normal range of motion. Cervical back: Normal range of motion and neck supple. Skin: General: Skin is warm and dry. Capillary Refill: Capillary refill takes less than 2 seconds. Neurological: General: No focal deficit present. Mental Status: She is alert and oriented to person, place, and time. Mental status is at baseline. Psychiatric: Mood and Affect: Mood normal. Behavior: Behavior normal. Thought Content: Thought content normal. Judgment: Judgment normal. Lab/Radiology/Diagnostic Review: Recent Results (from the past 24 hours) CBC with auto differential Collection Time: 07/30/24 9:24 PM Result Value Ref Range WBC 5.8 3.8 - 9.9 K/cumm Hgb 12.4 11.9 - 15.5 g/dL Hct 39.6 35.6 - 45.5 % Plt 227 150 - 400 K/cumm MPV 10.5 9.1 - 12.3 fL RBC 4.45 3.90 - 5.20 M/cumm MCV 89.0 81.3 - 96.4 fL MCH 27.9 27.1 - 33.3 pg MCHC 31.3 (L) 32.3 - 35.7 g/dL RDW CV 15.6 (H) 11.1 - 14.9 % RDW SD 51.0 (H) 35.7 - 48.1 fL NRBC abs 0.00 0.00 - 0.01 K/cumm Comprehensive metabolic panel Collection Time: 07/30/24 9:24 PM Result Value Ref Range Sodium 139 135 - 145 mmol/L Potassium, pl 4.2 3.3 - 4.9 mmol/L Chloride 102 97 - 110 mmol/L CO2 26 22 - 32 mmol/L Anion gap 11 2 - 15 mmol/L BUN 15 6 - 25 mg/dL Creatinine 0.60 0.60 - 1.10 mg/dL Glucose 123 70 - 199 mg/dL Calcium 10.5 (H) 8.5 - 10.3 mg/dL Bilirubin, total 0.4 0.1 - 1.2 mg/dL Protein, pl 7.3 6.5 - 8.5 g/dL Albumin 3.9 3.5 - 5.0 g/dL Alk phos 153 (H) 40 - 130 Units/L ALT 19 7 - 45 Units/L AST 38 10 - 45 Units/L Protime-INR Collection Time: 07/30/24 9:24 PM Result Value Ref Range PT 13.2 12.0 - 14.6 sec INR 1.0 0.9 - 1.2 aPTT Collection Time: 07/30/24 9:24 PM Result Value Ref Range aPTT 32 22 - 37 sec Differential, auto Collection Time: 07/30/24 9:24 PM Result Value Ref Range Neutrophil abs 3.4 1.5 - 6.5 K/cumm Imm gran abs 0.0 0.0 - 0.1 K/cumm Lymphocyte abs 1.5 0.8 - 3.3 K/cumm Monocyte abs 0.5 0.2 - 0.8 K/cumm Eosinophil abs 0.4 0.0 - 0.5 K/cumm Basophil abs 0.1 0.0 - 0.1 K/cumm Neutrophil pct 58.3 % Imm gran pct 0.2 % Lymphocyte pct 25.5 % Monocyte pct 9.1 % Eosinophil pct 6.0 % Basophil pct 0.9 % eGFR Collection Time: 07/30/24 9:24 PM Result Value Ref Range eGFR >90 >=60 mL/min/1.73 m2 XR Chest 1 Vw Portable Result Date: 07/30/2024 Narrative: EXAM DESCRIPTION: XR CHEST 1 VIEW REASON FOR STUDY: Other (type), Verify PICC line placement. Pt to ED with concern for PICC line. Reports home nurse reported PICC line was too far out when she came out to change the dressing. Pt reports recently discharged after admission for infectionin my spine. Denies any arm pain, SOB, CP, fever or chills. Pt states PICC line was placed . TECHNIQUE: Single radiographic view(s) of the chest. COMPARISON: None FINDINGS: LUNGS: No focalopacity, pleural effusion, or pneumothorax. HEART/MEDIASTINUM: Cardiac silhouette normal in size. Mediastinal and hilar contours appear normal. LINES/TUBES: Left PICC terminates in the distal left subclavian vein. BONES: No acute osseous abnormality. IMPRESSION: No acute cardiopulmonary abnormality. Left PICC terminates in the distal left subclavian vein. THIS IS AN ELECTRONICALLY VERIFIED FINAL REPORT 07/30/2024 3:30 PM - Electronically signed by Radha White M.D. FT D: 3:30 PM T: Report ID: [id number] Reading Location: [id number] XR Chest 1 View Result Date: 07/09/2024 Narrative: XR CHEST PA OR AP 1 VW [...] at the innominate confluence. INCIDENTAL FINDINGS: None. Impression: IMPRESSION: No active disease. DICTATION LOCATION: Location 1 - [facility] ESTIMATED LENGTH OF STAY: 2 DVT prophylaxis: SCDs Advance Care Planning Advance Care Planning Conversation Pertinent diagnoses: Malfunctioning PICC line The patient and/or family consented to a voluntary Advance Care Planning conversation. Individuals present for the conversation: patient Summary of the conversation: Discussed with the patient regarding the process intervention of advanced directive and patient is full code Outcome of the conversation and documents completed (select all that apply): continue the current treatment plan and code status without modification I spent 3 minutes providing separately identifiable ACP services with the patient and/or surrogate decision maker in a voluntary, in-person conversation discussing the patient's wishes and goals as detailed in the above note. My total encounter time on 07/30/2024 was 56 minutes which was spent in the activities documented in the note. This includes time spent prior to the visit and after the visit in direct care of the patient. This time does not include time spent in any separately reportable services. Voice recognition software [employer] Direct may have been used to dictate and transcribe this document. Knifeman variances may occur. Despite proofreading, typographical errors may occur. Hernan Mike NP [facility] BC-CCRN,PCCN 07/30/2024 10:52 PM Cosigned by Sadi Graham MD at 07/31/2024 4:14 AM BEAMING INSPECTOR ING INSPECTOR ING INSPECTOR Associated attestation - Sadi Graham MD - 07/31/2024 4:14 AM BEAMING INSPECTOR This patient was independently evaluated by the nurse practitioner. I was available for immediate consultation and in-person evaluation if required but was not asked to do so. - Sadi Graham MD documented in this encounter Nursing Notes * Moon Curtis RN - 07/31/2024 12:45 PM CST Pt. Discharged to daughter's car. Hospital transport provided transport to car via wheelchair. PT order given to pt. And instructed to go through AW to obtain therapy through home health services. Pt. Verbalizes understanding. PICC line in place and patent. No further questions from pt. ING INSPECTOR documented in this encounter ED Notes * Isaias Huertas - 07/30/2024 8:32 PM CST This RN attempted to give the due IV medication flushed the mid line recently inserted but have resistance Have my charge Nurse Alicia to recheck still have resistance change the iv cap still has resistance Dr. Ingram informed Isaias Huertas 07/30/242033 ING INSPECTOR * Rashi Ingram MD - 07/30/2024 7:53 PM CST HPI Chief Complaint Patient presents with Wellness Visit Pt sent to ED because LUE PICC line partially pulled out. PICC RN called in. She removed the LUE PICC and Placed RUE midline catheter. The midline catheter is not working, and PICC team has left, so will need ADx for PIV, IV ABx, and PICC/midline in AM. She was admitted 07/10 - 07/30 for L4-L5 Osteo myelitis/discitiswith epidural phlegmon. S/p IR biopsy on 06/28 - Path reveals no malignancy and noevidence of definitive osteomyelitis. Neurosurgery consulted - No indication for neurosurgical intervention. TLSO brace applied. Seen by ID -- Rx IV cefepime 2000mg every 12 hours for 6 weeks (~06/28through 08/09). She has a PMhx of epidural abscess, vertebral osteomyelitis, DM2 w/ neuropathy, FAISAL, obesity, COPD,asthma, HTN, GERD. History provided by: Medical records, patient and relative Patient History: Patient Active Problem List Diagnosis Date Noted Complication associated with peripherally inserted central catheter (PICC), initial encounter 07/30/2024 Chronic obstructive pulmonary disease (HCC) 07/14/2024 Asthma 06/27/2024 Benign hypertension 06/27/2024 Epidural abscess 06/27/2024 Discitis of lumbar region 06/27/2024 HLD (hyperlipidemia) 06/27/2024 Osteomyelitis of lumbar spine (HCC) 06/27/2024 Peripheral neuropathy 06/27/2024 Type 2 diabetes mellitus with hyperglycemia, without long-term current use of insulin (HCC) 03/20/2024 RLS (restless legs syndrome) 09/10/2021 Anxiety 01/05/2021 Cataract 01/05/2021 Current moderate episode of major depressive disorder (HCC) 01/05/2021 Gastroesophageal reflux disease 01/05/2021 Glaucoma 01/05/2021 Hearing loss 01/05/2021 Obstructive sleep apnea syndrome 05/07/2020 Chronic low back pain with bilateral sciatica 12/11/2012 No past medical history on file. No past surgical history on file. No family history on file. Social History Tobacco Use Smoking status: Not on file Smokeless tobacco: Not on file Substance and Sexual Activity Alcohol use: Not on file Drug use: Not on file Sexual activity: Not on file Social History Social History Narrative Not on file Review of Systems Review of Systems Constitutional: Negative for chills and fever. HENT: Negative for congestion and rhinorrhea. Respiratory: Negative for cough and shortness of breath. Cardiovascular: Negative for chest pain. Gastrointestinal: Negative for abdominal pain. Genitourinary: Negative for dysuria. Musculoskeletal: Positive for back pain. Negative for neck pain. Psychiatric/Behavioral: Negative for confusion. Physical Exam ED Triage Vitals Temp Pulse Resp BP SpO2 07/30/24 1402 07/30/24 1402 07/30/24 1402 07/30/24 1402 07/30/24 1402 36.7 ??C (98.1 ??F) 92 22 (!) 169/101 99 % Temp src Heart Rate Source Patient Position BP Location FiO2 (%) 07/30/24 1402 07/30/24 1402 07/30/24 1402 -- -- Oral Pulse Oximetry Sitting Height Height Method Weight Weight Method -- -- 07/30/24 1413 07/30/24 1413 128.7 kg (283 lb 11.7 oz) Standing scale Physical Exam Vitals and nursing note reviewed. Constitutional: General: She is not in acute distress. Appearance: She is obese. HENT: Head: Normocephalic and atraumatic. Nose: Nose normal. Mouth/Throat: Mouth: Mucous membranes are moist. Eyes: Extraocular Movements: Extraocular movements intact. Cardiovascular: Rate and Rhythm: Normal rate and regular rhythm. Pulses: Normal pulses. Heart sounds: Normal heart sounds. Pulmonary: Effort: Pulmonary effort is normal. Breath sounds: Normal breath sounds. Abdominal: General: Abdomen is flat. Bowel sounds are normal. Palpations: Abdomen is soft. Tenderness: There is no abdominal tenderness. There is no guarding or rebound. Musculoskeletal: Cervical back: Neck supple. Skin: General: Skin is warm and dry. Capillary Refill: Capillary refill takes less than 2 seconds. Neurological: Mental Status: She is alert. Mental status is at baseline. Psychiatric: Mood and Affect: Mood normal. Behavior: Behavior normal. MDM Medical Decision Making Pt sent to ED because LUE PICC line partially pulled out. PICC RN called in. She removed the LUE PICC and Placed RUE midline catheter. The midline catheter is not working, and PICC team has left, so will need ADx for PIV, IV ABx, and PICC/midline in AM. She was admitted 07/10 - 07/30 for L4-L5 Osteo myelitis/discitiswith epidural phlegmon. S/p IR biopsy on 06/28 - Path reveals no malignancy and noevidence of definitive osteomyelitis. Neurosurgery consulted - No indication for neurosurgical intervention. TLSO brace applied. Seen by ID -- Rx IV cefepime 2000mg every 12 hours for 6 weeks (~06/28through 08/09). DDx includes PICC line malfunction Amount and/or Complexity of Data Reviewed Independent Historian: caregiver Details: Family at bedside Labs: ordered. Decision-making details documented in ED Course. Radiology: ordered. Decision-making details documented in ED Course. Discussion of management or test interpretation with external provider(s): . - Admission endorsed to and accepted by Dr. Mcclain (hospitalist) . Risk Prescription drug management. Decision regarding hospitalization. ED Course as of 07/30/242 Time: 07/30 1913 Value: XR Chest 1 Vw Portable Comment: No acute cardiopulmonary abnormality. Left PICC terminates in the distal left subclavian vein. By: Rashi Ingram MD Time: 07/30 1953 Comment: Midline in place. Given evening dose of cefepime. By: Rashi Ingram MD Time: 07/30 2029 Comment: The midline catheter is not working. RN and special agent in charge unable to get it to work. PICC team is gone. Will need to place PIV for ABx tonight, and inpt obs for new PICC tomorrow By: Rashi Ingram MD Time: 07/30 2147 Comment: CBC unremarkable By: Rashi Ingram MD Time: 07/30 2148 Comment: Coags ok By: Rashi Ingram MD Time: 07/30 2204 Comment: CMP unremarkable By: Rashi Ingram MD Time: 07/30 2218 Comment: Admission endorsed to and accepted by Dr. Mcclain (hospitalist) By: Rashi Ingram MD Final diagnoses: Complication associated with peripherally inserted central catheter (PICC), initial encounter Osteomyelitis of lumbar spine (HCC) Rashi Ingram MD 07/30/242221 ING INSPECTOR * Hanh Koo RN - 07/30/2024 2:13 PM CST Pt to ED with concern for PICC line. Reports home nurse reported PICC line was too far out when shecame out to change the dressing. Pt reports recently discharged after admission for infection in my spine. Denies any arm pain, SOB, CP, fever or chills. ING INSPECTOR documented in this encounter Miscellaneous Notes * Plan of Care - Ly Lyons RN - 07/31/2024 12:45 PM CST DISCHARGE PLANNING HAS BEEN FINALIZED AT THIS TIME: If there is a change in patient condition whichcould impact this plan and/or additional discharge needs arise, please contact Case Management. Care management team met with patient and finalized discharge planning, please see below. If additional discharge needs arise, please reach out to the care management team. DENNYS: 07/31/24 HOME HEALTH: [facility] [address] [facility], [facility] [place] [address] Bedside RN to fax order and AVS to above fax number at d/c. Pt was provided list of HHC for choice notified of discharge HOME WITH HOME INFUSION: IV respiratory care called and notified of discharge Patient discharging home with IV antibiotics and HHC as she had before 07/31/24 1648 Discharge Summary Discharge Disposition Private residence Recommended Discharge Level of Care Private residence Actual Discharge Level of Care Private residence Does Actual Level of Care Match Care Team Recommendation? Yes Post Acute Care Plan Home Care Services Yes Type of Home Care Services Home therapies;Nurse visit;Home infusion Home Care Services Name and Phone Number [facility] Second Home Care Agency Info (if needed) IV and respiratory OP Services N/A DME N/A Post Acute Care Facility N/A Discharge Additional Assistance Does the patient need discharge transport arranged? No ING INSPECTOR documented in this encounter Plan of Treatment Scheduled Referrals Name Type Priority Associated Diagnoses Order Schedule Ambulatory referral to Home Health Outpatient Referral Routine Osteomyelitis of lumbar spine (HCC) 1 Occurrences starting 07/31/2024 until 01/28/2025 documented as of this encounter Procedures Procedure Name Priority Date/Time Associated Diagnosis Comments POCT GLUCOSE DEVICE Routine 07/31/2024 1 1:30 AM BEAMING INSPECTOR POCT GLUCOSE DEVICE Routine 07/31/2024 7 :30 AM BEAMING INSPECTOR POCT GLUCOSE DEVICE Routine 07/30/2024 1 1:38 PM BEAMING INSPECTOR EGFR STAT 07/30/2024 9:24 PM BEAMING INSPECTOR DIFFERENTIAL AUTO STAT 07/30/2024 9:2 4 PM BEAMING INSPECTOR CBC WITH AUTO DIFFERENTIAL STAT 07/30/2024 9:24 PM BEAMING INSPECTOR APTT STAT 07/30/2024 9:24 PM BEAMING INSPECTOR PROTIME-INR STAT 07/30/2024 9:24 PM BEAMING INSPECTOR COMPREHENSIVE METABOLIC PANEL STAT 07/30/2024 9:24 PM BEAMING INSPECTOR XR CHEST 1 VIEW ED 07/30/2024 2:45 PM BEAMING INSPECTOR documented in this encounter Results * POCT glucose (07/31/2024 11:30 AM BEAMING INSPECTOR) Glucose, POC 85 70 - 199 mg/dL Glucose comment 1 Use This Result [facility] Glucose comment 2 RN/MD Notified [facility] Blood 07/31/2024 11:3 0 AM BEAMING INSPECTOR 07/31/2024 11:30 AM BEAMING INSPECTOR us Markus Snowden MD LAB POCT ORDERABLES - D EVICE Final Result [facility] [address] [facility] [place] [address] * POCT glucose (07/31/2024 7:30 AM BEAMING INSPECTOR) Glucose, POC 99 70 - 199 mg/dL Glucose comment 1 Use This Result [facility] Glucose comment 2 RN/MD Notified [facility] Blood 07/31/2024 7:30 AM BEAMING INSPECTOR 07/31/2024 7:30 AM BEAMING INSPECTOR us Markus Snowden MD LAB POCT ORDERABLES - D EVICE Final Result Performing Organization Address [facility] de Phone Number [address] [place] [address] * POCT glucose (07/30/2024 11:38 PM BEAMING INSPECTOR) [facility] Glucose, POC 99 70 - 199 mg/dL Glucose comment 1 Use This Result [facility] Glucose comment 2 RN/MD Notified [facility] Blood 07/30/2024 11:3 8 PM BEAMING INSPECTOR 07/30/2024 11:38 PM BEAMING INSPECTOR us Sadi Graham MD LAB POCT ORDERABLES - DEVICE Final Result Performing Organization Address [facility] de Phone Number [address] [place] [address] * eGFR (07/30/2024 9:24 PM BEAMING INSPECTOR) [facility] eGFR >90 >=60 mL/min/1. 73 m2 Comment: Interpretive Data Reference Interval Normal ?>/= 90 mL/min/1.73m2 Mildly decreased* ? 60 - 89 mL/min/1.73m2 Mildly to moderately decreased ?45 - 59 mL/min/1.73m2 Moderately to severely decreased ??30 - 44 mL/min/1.73m2 Severely decreased ?15 - 29 mL/min/1.73m2 Kidney Failure ?< 15 ??mL/min/1.73m2 *Relative to young adult level Estimated glomerular filtration rate is determined by the 2020 CKD-EPI equation recommended by the National Kidney Foundation (A Unifying Approach to GFR Estimation: Recommendations of the NKF-ASK Task Force on Reassessing the Inclusion of Race in Diagnosing Kidney Disease, ALECN 2020). The CKD-EPI equation should not be used for patients with unstable renal function and has not been validated in children and those over 70. Current interpretive data was last reviewed 2021. Blood 07/30/2024 9:24 PM BEAMING INSPECTOR 07/30/2024 9:37 PM BEAMING INSPECTOR Rashi Ingram MD LAB BLOOD ORDERABLES Final Result [facility] [address] [facility] [place] [address] * Differential, auto (07/30/2024 9:24 PM BEAMING INSPECTOR) Pathologist [facility] Neutrophil abs 3.4 1.5 - 6.5 K/cumm Imm gran abs 0.0 0.0 - 0.1 K/cumm [facility] Lymphocyte abs 1.5 0.8 - 3.3 K/cumm [facility] Monocyte abs 0.5 0.2 - 0.8 K/cumm [facility] Eosinophil abs 0.4 0.0 - 0.5 K/cumm [facility] Basophil abs 0.1 0.0 - 0.1 K/cumm [facility] Neutrophil pct 58.3 % [facility] Comment: Interpretive Data Percent cell count reference ranges are not reported, since discordance with absolute values may lead to misinterpretation of CBC data. Current Interpretive Data was last revised on 2017. Imm gran pct 0.2 % [facility] Comment: Interpretive Data Percent cell count reference ranges are not reported, since discordance with absolute values may lead to misinterpretation of CBC data. Current Interpretive Data was last revised on 2017. Lymphocyte pct 25.5 % [facility] Comment: Interpretive Data Percent cell count reference ranges are not reported, since discordance with absolute values may lead to misinterpretation of CBC data. Current Interpretive Data was last revised on 2017. Monocyte pct 9.1 % [facility] Comment: Interpretive Data Percent cell count reference ranges are not reported, since discordance with absolute values may lead to misinterpretation of CBC data. Current Interpretive Data was last revised on 2017. Eosinophil pct 6.0 % [facility] Comment: Interpretive Data Percent cell count reference ranges are not reported, since discordance with absolute values may lead to misinterpretation of CBC data. Current Interpretive Data was last revised on 2017. Basophil pct 0.9 % [facility] Comment: Interpretive Data Percent cell count reference ranges are not reported, since discordance with absolute values may lead to misinterpretation of CBC data. Current Interpretive Data was last revised on 2017. Blood 07/30/2024 9:24 PM BEAMING INSPECTOR 07/30/2024 9:37 PM BEAMING INSPECTOR Rashi Ingram MD LAB BLOOD ORDERABLES Final Result Performing Organization Address [facility] Co de Phone Number [address] [address] * aPTT (07/30/2024 9:24 PM BEAMING INSPECTOR) aPTT 32 22 - 37 sec Comment: Interpretive data aPTT test has not been evaluated for monitoring heparin therapy. The anti-Xa is the preferred test. Current interpretive data was last revised on 2019. Blood 07/30/2024 9:24 PM BEAMING INSPECTOR 07/30/2024 9:37 PM BEAMING INSPECTOR Rashi Ingram MD LAB BLOOD ORDERABLES Final Result Performing Organization Address [facility] Co de Phone Number [address] [address] * Protime-INR (07/30/2024 9:24 PM BEAMING INSPECTOR) PT 13.2 12.0 - 14.6 sec INR 1.0 0.9 - 1.2 [facility] Comment: Ref Range High Interpretive data Oral anticoagulant therapeutic ranges: Venous thromboembolism prophylaxis or treatment: 2.0-3.0 CARDIOLOGY Standard range: 2.0-3.0 High-intensity range: 2.5-3.5 Refer to indication-specific guidelines for appropriate target ranges for prosthetic heart valve replacement. Current interpretive data was last revised on 2019. Blood 07/30/2024 9:24 PM BEAMING INSPECTOR 07/30/2024 9:37 PM BEAMING INSPECTOR us Rashi Ingram MD LAB BLOOD ORDERABLES Final Result [facility] [address] [facility] [place] [address] * (ABNORMAL) Comprehensive metabolic panel (07/30/2024 9:24 PM BEAMING INSPECTOR) Sodium 139 135 - 145 mmol/L Potassium, pl 4.2 3.3 - 4.9 mmol/L [facility] Comment:Hemolyzed; Potassium value may be falsely elevated by as much as 1.0 mmol/L. Suggest redraw and reanalysis. Chloride 102 97 - 110 mmol/L [facility] CO2 26 22 - 32 mmol/L [facility] Anion gap 11 2 - 15 mmol/L [facility] BUN 15 6 - 25 mg/dL [facility] Creatinine 0.60 0.60 - 1.10 mg/dL [facility] Glucose 123 70 - 199 mg/dL [facility] Comment: Interpretive Data Fasting glucose >/= 126 mg/dl is diagnostic for diabetes. ?? Fasting is defined as no caloric intake [...] Current interpretive data was last revised 2022. Calcium 10.5(H) 8.5 - 10.3 mg/dL [facility] Bilirubin, total 0.4 0.1 - 1.2 mg/dL [facility] Protein, pl 7.3 6.5 - 8.5 g/dL [facility] Albumin 3.9 3.5 - 5.0 g/dL [facility] Alk phos 153(H) 40 - 130 Units/L [facility] ALT 19 7 - 45 Units/L [facility] AST 38 10 - 45 Units/L [facility] Comment:Hemolyzed; result ma y be falsely elevated Blood 07/30/2024 9:24 PM BEAMING INSPECTOR 07/30/2024 9:37 PM BEAMING INSPECTOR Rashi Ingram MD LAB BLOOD ORDERABLES Final Result Performing Organization Address [facility] Co de Phone Number [address] [place] [address] * (ABNORMAL) CBC with auto differential (07/30/2024 9:24 PM BEAMING INSPECTOR) [facility] WBC 5.8 3.8 - 9.9 K/cumm Hgb 12.4 11.9 - 15.5 g/dL [facility] Hct 39.6 35.6 - 45.5 % [facility] Plt 227 150 - 400 K/cumm [facility] MPV 10.5 9.1 - 12.3 fL [facility] RBC 4.45 3.90 - 5.20 M/cumm [facility] MCV 89.0 81.3 - 96.4 fL [facility] MCH 27.9 27.1 - 33.3 pg [facility] MCHC 31.3(L) 32.3 - 35.7 g/dL [facility] RDW CV 15.6(H) 11.1 - 14.9 % [facility] RDW SD 51.0(H) 35.7 - 48.1 fL [facility] NRBC abs 0.00 0.00 - 0.01 K/cumm [facility] Blood 07/30/2024 9:24 PM BEAMING INSPECTOR 07/30/2024 9:37 PM BEAMING INSPECTOR Rashi Ingram MD LAB BLOOD ORDERABLES Final Result Performing Organization Address City/[facility]/ZIP Co de Phone Number [address] [place] [address] * XR Chest 1 Vw Portable (07/30/2024 2:45 PM BEAMING INSPECTOR) Anatomical Region Laterality Modality Body, Chest N/A Computed Radiogr aphy 07/30/2024 3:27 PM BEAMING INSPECTOR Narrative 07/30/2024 3:30 PM BEAMING INSPECTOR EXAM DESCRIPTION: XR CHEST 1 VIEW REASON FOR STUDY: Other (type), Verify PICC line placement. ?? Pt to ED with concern for PICC line. Reports home nurse reported PICC line was too far out when she came out to change the dressing. Pt reports recently discharged after admission for infection in my spine. Denies any arm pain, SOB, CP, fever or ?? chills. ? Pt states PICC line was placed June 24. ?? TECHNIQUE: Single ??radiographic view(s) of the chest. COMPARISON: None FINDINGS: LUNGS: ??No focal opacity, pleural effusion, or pneumothorax. ?? HEART/MEDIASTINUM: ??Cardiac silhouette normal in size. Mediastinal and hilar contours appear normal. LINES/TUBES: ??Left PICC terminates in the distal left subclavian vein. BONES: ??No acute osseous abnormality. IMPRESSION: No acute cardiopulmonary abnormality. Left PICC terminates in the distal left subclavian vein. THIS IS AN ELECTRONICALLY VERIFIED FINAL REPORT 07/30/2024 3:30 PM - Electronically signed by ??Radha White M.D. FT D: ??07/30/2024 3:30 PM T: Report ID: [id number] Reading Location: ??[id number] Procedure Note Radha Terry MD - 07/30/2024 EXAM DESCRIPTION: XR CHEST 1 VIEW REASON FOR STUDY: Other (type), Verify PICC line placement. Pt to ED with concern for PICC line. Reports home nurse reported PICC linewas too far out when she came out to change the dressing. Pt reports recently discharged after admission for infection in my spine. Denies any armpain, SOB, CP, fever or chills. Pt states PICC line was placed . TECHNIQUE: Single radiographic view(s) of the chest. COMPARISON: None FINDINGS: LUNGS: No focal opacity, pleural effusion, or pneumothorax. HEART/MEDIASTINUM: Cardiac silhouette normal in size. Mediastinal andhilar contours appear normal. LINES/TUBES: Left PICC terminates in the distal left subclavian vein. BONES: No acute osseous abnormality. IMPRESSION: No acute cardiopulmonary abnormality. Left PICC terminates in the distal left subclavian vein. THIS IS AN ELECTRONICALLY VERIFIED FINAL REPORT 07/30/2024 3:30 PM - Electronically signed by Radha White M.D. FT T: Report ID: [id number] Reading Location: [place] [address] [place] Rashi Ingram MD IMG XR PROCEDURES Final Re sult documented in this encounter Visit Diagnoses Diagnosis Complication associated with peripherally inserted central catheter (PICC), initial encounter- Primary Complication associated with peripherally inserted central catheter (PICC), initial encounter Osteomyelitis of lumbar spine (HCC) Displacement of peripherally inserted central catheter (PICC) (CMS/HCC) (HCC) Diabetic polyneuropathy associated with diabetes mellitus due to underlying condition (CMS/HCC) (HCC) Metabolic syndrome Dysmetabolic Syndrome X Hypercalcemia Transaminitis Nonspecific elevation of levels of transaminase or lactic acid dehydrogenase (LDH) documented in this encounter Admitting Diagnoses Diagnosis Complication associated with peripherally inserted central catheter (PICC), initial encounter documented in this encounter Administered Medications Inactive Administered Medications - up to 3 most recent administrations Medication Order MAR Action Action Date Dose Rate Site acetaminophen (TYLENOL) tablet 650 mg 650 mg, oral, Every 4 hours PRN, 1st line for pain, fever, fever greater than 38.3 C, Starting on Tue07/31/24 at 0720, Indications: Fever, PainIndications:Fever ,Pain Carrier Fluids for Secondary Infusion - 0.9% Sodium Chloride 30 mL, intravenous, As needed, For priming tubing and/or flushing, Starting on Tue07/30/24 at 2352, 0-250 ml/hr to flush line after IV infusions when no maintenance IV ordered. Infuse 30mL at the same rate as the secondary infusion. Run as primary IV, not intended for KVO. cefepime (MAXIPIME) 2,000 mg in sodium chloride 0.9% 100 mL IVPB 2,000 mg, intravenous, at 200 mL/hr, Administer over 30 Minutes, Once, On Tue07/30/24 at 1933, For 1 dose, Mini-Bag Plus bag, Indications: Bone/Joint InfectionIndications: Bone/Joint Infection New Bag 07/30/2024 8:03 PM BEAMING INSPECTOR 2,000 mg 200 mL/hr Left Antecubital cefepime (MAXIPIME) 2,000 mg in sodium chloride 0.9% 100 mL IVPB 2,000 mg, intravenous, at 200 mL/hr, Administer over 30 Minutes, Every 12 hours scheduled, First dose (after last modification) on Tue07/31/24 at 0900, Mini-Bag Plus bag, Indications: Skin/Soft Tissue InfectionIndications: Skin/Soft Tissue Infection New Bag 07/31/2024 9:31 AM BEAMING INSPECTOR 2,000 mg 200 mL/hr cholecalciferol (VITAMIN D-3) tablet 2,000 Units 2,000 Units, oral, Daily, First dose on Tue07/31/24 at 0900, Each tablet contains 1,000 units (25 mcg) of cholecalciferol. Given 07/31/2024 7:59 AM BEAMING INSPECTOR 2,000 Units dextrose (D10W) 10% bolus 250 mL 250 mL, intravenous, at 1,000 mL/hr, Administer over 15 Minutes, Every 15 min PRN, blood glucose less than 70 mg/dL and UNABLE to swallow/take PO glucose/juice., Starting on Tue07/30/24 at 2356, After treatment for hypoglycemia, recheck BG followed by treatment every 15 minutes until the BG is greater than 100 mg/dL. Then check BG 1 hour post treatment. If BG is less than 100 mg/dL, repeat Q15 minute BG checks and treatment. Call MD for each episode of hypoglycemia., Indications: hypoglycemic disorderIndications:h ypoglycemic disorder dextrose (GLUTOSE) 40 % gel 15 g 15 g, oral, Every 15 min PRN, low blood sugar, blood glucose less than 70 mg/dL, Starting on Tue07/30/24 at 2356, If patient is alert and able to eat/drink, give 15 gm glucose or one juice (4 fluid ounces) NOT ORANGE JUICE. After treatment for hypoglycemia, recheck BG followed by treatment every 15 minutes until the BG is greater than 100 mg/dL. Then check BG 1 hour post-treatment. If BG is less than 100 mg/dL, repeat Q15 minute BG checks and treatment. Call MD for each episode of hypoglycemia. HAND DEICER ELEMENT WINDER STATES GLUTOSE-15 CONTAINS GLUCOSE 40% W/W (50% W/V), Indications: hypoglycemic disorderIndications:h ypoglycemic disorder gabapentin (NEURONTIN) capsule 300 mg 300 mg, oral, 2 times daily, First dose on Tue07/31/24 at 0030 Given 07/31/2024 7:59 AM BEAMING INSPECTOR 300 mg Given 07/31/2024 12:53 AM BEAMING INSPECTOR 300 mg lidocaine (LIDODERM) 5 % patch 1 patch 1 patch, transdermal, Administer over 12 Hours, Nightly, First dose on Tue07/31/24 at 0000, Lower back Do not cover the holes on the top side of the patch., Apply to affected area: back lidocaine (PF) (XYLOCAINE) 10 mg/mL (1 %) preservative free injection 10-20 mg 10-20 mg (1-2 mL), subcutaneous, Once, On Tue07/31/24 at 0800, For 1 dose, Administer to insertion site prior to procedure of local anesthesia. Administer volume needed to infiltrate site., Indications: Administration of Local AnesthesiaIndications:Administrat ion of Local Anesthesia Given 07/31/2024 10:36 AM BEAMING INSPECTOR 10 mg Right Upper Arm ondansetron (ZOFRAN) injection 4 mg 4 mg, intravenous, Administer over 2 Minutes, Every 6 hours PRN, nausea, vomiting, if not tolerating PO, Starting on Tue07/30/24 at 2352, Indications: Nausea and VomitingIndications:Nausea and Vomiting polyethylene glycol (MIRALAX) packet 17 g 17 g, oral, Daily PRN, constipation, Starting on Tue07/30/24 at 2352, Indications: constipationIndications:constipat ion ramelteon (ROZEREM) tablet 8 mg 8 mg, oral, Nightly PRN, sleep, Starting on Tue07/30/24 at 2353, Indications: Sleep-Onset InsomniaIndications:Sleep-Onset Insomnia sodium chloride 0.9% flush 0.5-20 mL 0.5-20 mL, intra-catheter, Every 8 hours scheduled, First dose on Tue07/31/24 at 0030, Flush volume based on line type and size. Given 07/31/2024 5:41 AM BEAMING INSPECTOR 10 mL Given 07/31/2024 1:19 AM BEAMING INSPECTOR 10 mL sodium chloride 0.9% flush 0.5-20 mL 0.5-20 mL, intra-catheter, As needed, line care, Starting on Tue07/30/24 at 2352, Flush volume based on line type and size. Flush before and after each use. sodium chloride 0.9% flush 5-10 mL 5-10 mL, intra-catheter, Every 8 hours scheduled (alternate), First dose on Tue07/30/24 at 1737, Flush volume based on line type, size, and protocol. Given 07/31/2024 8:00 AM BEAMING INSPECTOR 10 mL Given 07/31/2024 1:18 AM BEAMING INSPECTOR 10 mL sodium chloride 0.9% flush 5-10 mL 5-10 mL, intra-catheter, As needed, line care, with each use, Starting on Tue07/30/24 at 1735, Flush volume based on line type, size, and protocol. sodium chloride 0.9% flush 5-10 mL 5-10 mL, intra-catheter, Every 12 hours scheduled, First dose on Tue07/31/24 at 0045, Flush volume based on line type, size, and protocol. Given 07/31/2024 8:00 AM BEAMING INSPECTOR 10 mL Given 07/31/2024 1:19 AM BEAMING INSPECTOR 10 mL sodium chloride 0.9% flush 5-10 mL 5-10 mL, intra-catheter, Every 12 hours scheduled, First dose on Tue07/31/24 at 0900, Flush volume based on line type, size, and protocol. Given 07/31/2024 10:36 AM BEAMING INSPECTOR 10 mL sodium chloride 0.9% flush 5-20 mL 5-20 mL, intra-catheter, As needed, line care, with each use, Starting on Tue07/31/24 at 0004, Flush volume based on line type, size, and protocol. sodium chloride 0.9% flush 5-20 mL 5-20 mL, intra-catheter, As needed, line care, with each use, Starting on Tue07/31/24 at 0719, Flush volume based on line type, size, and protocol. documented in this encounter Active and Recently Administered Medications Times are shown in BEAMING INSPECTOR. Scheduled Medication Order 07/29/2024 07/30/2024 07/31/2024 atorvastatin (LIPITOR) tablet 20 mg 20 mg, oral, Daily, First dose on Tue07/31/24 at 0900 0800 (Not Given - Provider: Moon Curtis RN - Reason: Patient/family refused - Comment: pt takes at night) cefepime (MAXIPIME) 2,000 mg in sodium chloride 0.9% 100 mL IVPB (COMPLETED) 2,000 mg, intravenous, at 200 mL/hr, Administer over 30 Minutes, Once, On Tue07/30/24 at 1933, For 1 dose, Mini-Bag Plus bag, Indications: Bone/Joint Infection 2002 (New Bag - Provider: Isaias Huertas - Comment: reinserted a new IV)2099 (Stopped - Provider: Isaias Huertas) cefepime (MAXIPIME) 2,000 mg in sodium chloride 0.9% 100 mL IVPB 2,000 mg, intravenous, at 200 mL/hr, Administer over 30 Minutes, Every 12 hours scheduled, First dose (after last modification) on Tue07/31/24 at 0900, Mini-Bag Plus bag, Indications: Skin/Soft Tissue Infection 09 (New Bag - Provider: Moon Curtis RN) cholecalciferol (VITAMIN D-3) tablet 2,000 Units 2,000 Units, oral, Daily, First dose on Tue07/31/24 at 0900, Each tablet contains 1,000 units (25 mcg) of cholecalciferol. 0759 (Given - Provid er: Moon Curtis RN) gabapentin (NEURONTIN) capsule 300 mg 300 mg, oral, 2 times daily, First dose on Tue07/31/24 at 0030 0053 (Given - Provid er: Donald Robb RN)0759 (Given - Provider: Moon Curtis, ARACELIS) insulin lispro (HumaLOG, ADMELOG) 100 unit/mL injection 0-4 Units 0-4 Units, subcutaneous, Nightly, First dose on Tue07/31/24 at 2100, Blood glucose mg/dL: 199 or less: No insulin 200-249: add 1 unit 250-299: add 2 units 300-349: add 3 units and notify physician for adjustment of insulin orders. 350-399: add 4 units and notify physician for adjustment of insulin orders. Over 400: Notify physician for adjustment of insulin orders. Do NOT hold for NPO Status, Indications: Diabetes Mellitus insulin lispro (HumaLOG, ADMELOG) 100 unit/mL injection 0-5 Units 0-5 Units, subcutaneous, 3 times daily with meals, First dose on Tue07/31/24 at 0800, Blood glucose mg/dL: 149 or less: No insulin 150-199: add 1 unit 200-249: add 2 units 250-299: add 3 units 300-349: add 4 units and notify physician for adjustment of insulin orders. 350-399: add 5 units and notify physician for adjustment of insulin orders. Over 400: Notify physician for adjustment of insulin orders. Do NOT hold for NPO Status, Indications: Diabetes Mellitus 0749 (Not Given - Provider: Moon Curtis, ARACELIS - Reason: Order parameters not met)1231 (Not Given - Provider: Moon Curtis RN - Reason: Order parameters not met) lidocaine (LIDODERM) 5 % patch 1 patch 1 patch, transdermal, Administer over 12 Hours, Nightly, First dose on Tue07/31/24 at 0000, Lower back Do not cover the holes on the top side of the patch., Apply to affected area: back 0118 (Not Given - Provider: Donald Robb RN - Reason: Patient/family refused) lidocaine (PF) (XYLOCAINE) 10 mg/mL (1 %) preservative free injection 10-20 mg (COMPLETED) 10-20 mg (1-2 mL), subcutaneous, Once, On Tue07/31/24 at 0800, For 1 dose, Administer to insertion site prior to procedure of local anesthesia. Administer volume needed to infiltrate site., Indications: Administration of Local Anesthesia 1036 (Given - Provid er: Kelsey Baird RN - Comment: lidocaine included in PICC line kit) sodium chloride 0.9% flush 0.5-20 mL 0.5-20 mL, intra-catheter, Every 8 hours scheduled, First dose on Tue07/31/24 at 0030, Flush volume based on line type and size. 0119 (Given - Provid er: Donald Robb, ARACELIS)0541 (Given - Provider: Donald Robb, ARACELIS) sodium chloride 0.9% flush 5-10 mL 5-10 mL, intra-catheter, Every 8 hours scheduled (alternate), First dose on Tue07/30/24 at 1737, Flush volume based on line type, size, and protocol. 1837 (Hold - Provider: Trudy Mauricio RN - Reason: Other - Comment: waiting for midline nurse) 0118 (Given - Provider: Donald Robb RN)0800 (Given - Provider: Moon Curtis, ARACELIS) sodium chloride 0.9% flush 5-10 mL 5-10 mL, intra-catheter, Every 12 hours scheduled, First dose on Tue07/31/24 at 0045, Flush volume based on line type, size, and protocol. 0119 (Given - Provid er: Donald Robb RN)0800 (Given - Provider: Moon Curtis RN) sodium chloride 0.9% flush 5-10 mL 5-10 mL, intra-catheter, Every 12 hours scheduled, First dose on Tue07/31/24 at 0900, Flush volume based on line type, size, and protocol. 1036 (Given - Provid er: Kelsey Baird RN - Comment: flushed before and after cefepime) PRN Medication Order 07/29/2024 07/30/2024 07/31/2024 acetaminophen (TYLENOL) tablet 650 mg 650 mg, oral, Every 4 hours PRN, 1st line for pain, fever, fever greater than 38.3 C, Starting on Tue07/31/24 at 0720, Indications: Fever, Pain Carrier Fluids for Secondary Infusion - 0.9% Sodium Chloride 30 mL, intravenous, As needed, For priming tubing and/or flushing, Starting on Tue07/30/24 at 2352, 0-250 ml/hr to flush line after IV infusions when no maintenance IV ordered. Infuse 30mL at the same rate as the secondary infusion. Run as primary IV, not intended for KVO. cyclobenzaprine (FLEXERIL) tablet 10 mg 10 mg, oral, 3 times daily PRN, muscle spasms, Starting on Tue07/30/24 at 2355 dextrose (D10W) 10% bolus 250 mL(Linked Group 1) 250 mL, intravenous, at 1,000 mL/hr, Administer over 15 Minutes, Every 15 min PRN, blood glucose less than 70 mg/dL and UNABLE to swallow/take PO glucose/juice., Starting on Tue07/30/24 at 2356, After treatment for hypoglycemia, recheck BG followed by treatment every 15 minutes until the BG is greater than 100 mg/dL. Then check BG 1 hour post treatment. If BG is less than 100 mg/dL, repeat Q15 minute BG checks and treatment. Call MD for each episode of hypoglycemia., Indications: hypoglycemic disorder dextrose (GLUTOSE) 40 % gel 15 g(Linked Group 1) 15 g, oral, Every 15 min PRN, low blood sugar, blood glucose less than 70 mg/dL, Starting on Tue07/30/24 at 2356, If patient is alert and able to eat/drink, give 15 gm glucose or one juice (4 fluid ounces) NOT ORANGE JUICE. After treatment for hypoglycemia, recheck BG followed by treatment every 15 minutes until the BG is greater than 100 mg/dL. Then check BG 1 hour post-treatment. If BG is less than 100 mg/dL, repeat Q15 minute BG checks and treatment. Call MD for each episode of hypoglycemia. HAND DEICER ELEMENT WINDER STATES GLUTOSE-15 CONTAINS GLUCOSE 40% W/W (50% W/V), Indications: hypoglycemic disorder glucagon injection 1 mg 1 mg, intramuscular, Every 30 min PRN, low blood sugar, blood glucose less than 70 mg/dL AND no IV access AND unable to take PO glucose/juice., Starting on Tue07/30/24 at 2356, After Glucagon is administered, position patient on side if possible to avoid aspiration. Obtain IV access. Follow glucagon treatment with glucose treatment or IV dextrose. After treatment for hypoglycemia, recheck BG followed by treatment every 15 minutes until the BG is greater than 100 mg/dL. Then check BG 1 hour post treatment. If BG is less than 100 mg/dL, repeat Q15 minute BG checks and treatment. Call MD for each episode of hypoglycemia. Reconstitute 1 mg vial with 1 mL SWFI. Use immediately following reconstitution. ondansetron (ZOFRAN) injection 4 mg(Linked Group 2) 4 mg, intravenous, Administer over 2 Minutes, Every 6 hours PRN, nausea, vomiting, if not tolerating PO, Starting on Tue07/30/24 at 2352, Indications: Nausea and Vomiting polyethylene glycol (MIRALAX) packet 17 g 17 g, oral, Daily PRN, constipation, Starting on Tue07/30/24 at 2352, Indications: constipation ramelteon (ROZEREM) tablet 8 mg 8 mg, oral, Nightly PRN, sleep, Starting on Tue07/30/24 at 2353, Indications: Sleep-Onset Insomnia sodium chloride 0.9% flush 0.5-20 mL 0.5-20 mL, intra-catheter, As needed, line care, Starting on Tue07/30/24 at 2352, Flush volume based on line type and size. Flush before and after each use. sodium chloride 0.9% flush 5-10 mL 5-10 mL, intra-catheter, As needed, line care, with each use, Starting on Tue07/30/24 at 1735, Flush volume based on line type, size, and protocol. sodium chloride 0.9% flush 5-20 mL 5-20 mL, intra-catheter, As needed, line care, with each use, Starting on Tue07/31/24 at 0004, Flush volume based on line type, size, and protocol. sodium chloride 0.9% flush 5-20 mL 5-20 mL, intra-catheter, As needed, line care, with each use, Starting on Tue07/31/24 at 0719, Flush volume based on line type, size, and protocol. Linked Groups Order Group 1: dextrose (GLUTOSE) 40 % gel 15 gJump to med 15 g, oral, Every 15 min PRN, low blood sugar, blood glucose less than 70 mg/dL, Starting on Tue07/30/24 at 2356, If patient is alert and able to eat/drink, give 15 gm glucose or one juice (4 fluid ounces) NOT ORANGE JUICE. After treatment for hypoglycemia, recheck BG followed by treatment every 15 minutes until the BG is greater than 100 mg/dL. Then check BG 1 hour post-treatment. If BG is less than 100 mg/dL, repeat Q15 minute BG checks and treatment. Call MD for each episode of hypoglycemia. HAND DEICER ELEMENT WINDER STATES GLUTOSE-15 CONTAINS GLUCOSE 40% W/W (50% W/V), Indications: hypoglycemic disorder Or dextrose (D10W) 10% bolus 250 mLJump to med 250 mL, intravenous, at 1,000 mL/hr, Administer over 15 Minutes, Every 15 min PRN, blood glucose less than 70 mg/dL and UNABLE to swallow/take PO glucose/juice., Starting on Tue07/30/24 at 2356, After treatment for hypoglycemia, recheck BG followed by treatment every 15 minutes until the BG is greater than 100 mg/dL. Then check BG 1 hour post treatment. If BG is less than 100 mg/dL, repeat Q15 minute BG checks and treatment. Call MD for each episode of hypoglycemia., Indications: hypoglycemic disorder Group 2: ondansetron ODT (ZOFRAN-ODT) disintegrating tablet 4 mg (CANCELED) 4 mg, oral, Every 6 hours PRN, nausea, vomiting, Starting on Tue07/30/24 at 2352, Indications: Nausea and Vomiting Or ondansetron (ZOFRAN) injection 4 mgJump to med 4 mg, intravenous, Administer over 2 Minutes, Every 6 hours PRN, nausea, vomiting, if not tolerating PO, Starting on Tue07/30/24 at 2352, Indications: Nausea and Vomiting documented in this encounter Orders Medications Ordered That Jayjay ht Not Have Been Administered Count Last Ordered Date First Ordered Date acetaminophen (TYLENOL) tablet 650 mg 1 cefepime (MAXIPIME) 1,000 mg in sodium chloride 0.9% 100 mL IVPB 1 07/31/2024 cefepime (MAXIPIME) 2,000 mg in sodium chloride 0.9% 100 mL IVPB 1 07/31/2024 sodium chloride 0.9% flush 5-20 mL 2 2023 atorvastatin (LIPITOR) tablet 20 mg 1 07/30 Carrier Fluids for Secondary Infusion - 0.9% Sodium Chloride 1 07/30/2024 cyclobenzaprine (FLEXERIL) tablet 10 mg 1 1 09/29/2023 dextrose (D10W) 10% bolus 250 mL 1 07/30/20 dextrose (GLUTOSE) 40 % gel 15 g 1 07/30/20 empagliflozin (JARDIANCE) tablet 25 mg 1 glucagon injection 1 mg 1 07/30/2024 insulin lispro (HumaLOG, ADM ELOG) 100 unit/mL injection 0-4 Units 1 07/30/2024 insulin lispro (HumaLOG, ADM ELOG) 100 unit/mL injection 0-5 Units 1 07/30/2024 lidocaine (LIDODERM) 5 % patch 1 patch 1 lidocaine (PF) (XYLOCAINE) 1 0 mg/mL (1 %) preservative free injection 10-20 mg 1 07/30/2024 ondansetron (ZOFRAN) injection 4 mg 1 07/30 ondansetron ODT (ZOFRAN-ODT) disintegrating tablet 4 mg 1 07/30/2024 polyethylene glycol (MIRALAX) packet 17 g 1 07/30/2024 ramelteon (ROZEREM) tablet 8 mg 1 sodium chloride 0.9% flush 0.5-20 mL 1 07/13 sodium chloride 0.9% flush 5-10 mL 1 2023 Lab Orders Without Results Count Last Ordered D ate First Ordered Date POCT GLUCOSE DEVICE 2 07/31/2024 Nursing Count Last Ordered Date First Orde red Date WEIGH PATIENT 1 07/30/2024 Consult Count Last Ordered Date First Orde red Date IP CONSULT TO VASCULAR ACCESS TEAM 2 202307/30/2024 IV Count Last Ordered Date First Orde red Date INSERT PERIPHERAL IV 1 07/30/2024 Admission Count Last Ordered Date First Orde red Date INITIATE OBSERVATION SERVICES 1 07/30/2024 Transfer Count Last Ordered Date First Orde red Date ED TO FLOOR BED REQUEST 1 07/30/2024 Discharge Count Last Ordered Date First Orde red Date DISCHARGE PATIENT 1 07/31/2024 CORE MEASURES Count Last Ordered Date First Ord ered Date REASON FOR NO VTE PROPHYLAXIS AT ADMISSION 1 07/30/2024 documented in this encounter Care Teams Casino Surveillance Officer Relationship Specialty Start Date End Date Omid Douglass MD [facility] [address] PCP - General 12/15/11 documented as of this encounter
--- OUTSIDE RECORDS SUMMARY | 2024-09-07 15:30 | XMS_ITS | Encounter Summary ---
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 She states she will follow up as needed. Jessica Gracia RN 07/25/24 1005 KER STRAIGHTENER documented in this encounter Plan of Treatment Not on file documented as of this encounter Visit Diagnoses Not on filedocumented in this encounter Care Teams Manager Acute Relationship Specialty Start Date End Date Omid Douglass MD [facility] [place], [place] [id number] PCP - General 12/15/11 documented as of this encounter
--- OUTSIDE RECORDS SUMMARY | 2024-09-07 15:30 | XMS_ITS | Encounter Summary ---
Author Organization [facility] Healthcare Address [address] [place] [address] Care Team Providers Care Finance Professor Name Role Phone Omid Douglass MD Primary Care Provider [phone] Encounter Details Date Type Department Care Team (Late st Contact Info) Description 07/16/2024 NH/SNF Visit [facility] Medical [facility] Post Acute Care [address] [address] Mary Trivedi NP [address] [place] [address] Osteomyelitis of lumbar spine (HCC) (Primary Dx); Epidural abscess; Discitis of lumbar region; 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 sciatica; Benign hypertension Social History Tobacco Use Types Packs/Day Years Used Date Smoking Tobacco: Never Assessed Comments Unknown Sex and Gender Information Value Date Recorded Sex Assigned at Not on file Legal Sex Female 12:03 AM DIESEL ENGINE II PIPE FITTER Gender Identity Not on file Sexual Orientation Not on file documented as of this encounter Last Filed Vital Signs Vital Sign Reading Time Taken Comments Blood Pressure 120/72 07/16/2024 1:20 PM DIESEL ENGINE II PIPE FITTER Pulse 78 07/16/2024 1:20 PM DIESEL ENGINE II PIPE FITTER Temperature - - Respiratory Rate - - Oxygen Saturation - - Inhaled Oxygen Concentration - - Weight - - Height - - Body Mass Index - - documented in this encounter Progress Notes * Mary Trivedi NP - 07/16/2024 1:20 PM CST Images from the original note were not included. Daily Progress Note A/P: Diagnoses and all orders for this visit: Osteomyelitis of lumbar spine (HCC) (Primary) Assessment & Plan: L4-L5 Osteomyelitis/discitis with epidural phlegmon. S/p IR biopsy on 06/28 - Path reveals no malignancy and no evidence of definitive osteomyelitis. Tissue cultures no growth. Blood cx 06/27 NGTD. No indication for neurosurgical intervention. Follow up with Dr. Fischer in 3 months. Per ID, IV cefepime 2000mg every 12 hours for 6 weeks (~06/28 through 08/09), weekly CBC, CMP, CRP. Outpatient ID follow up. TLSO brace. Brace to be worn at all times when head of bed >30 degrees, when upright, out of bed, in chair or walking. Spinal Precautions. Continue Lovenox DVT prop. Pain isn't well controlled. Continue Tyl 1000mg BID, PRN [place] q8h, Increase Gabapentin to 300mg TID, Schedule Flexeril T ID, & start Lidoderm patch. Epidural abscess Discitis of lumbar region 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 sciatica Assessment & Plan: Increased, SEE ABOVE Benign hypertension Assessment & Plan: BP stable. Previously on losartan 100mg, hydrochlorothiazide 12.5mg. Montior for need to restart. Chief complaint of DCP/Pain/TLSO issues. Interval History: 68 year old with asthma, emphysema, HLD, GERD, peripheral neuropathy, HTN. Patient presented with worsening back pain. Found to have L4- L5 discitis/osteomyelitis on MRI. Seen by infectious disease, recommended for cefepime IV for 6 weeks. Seen by neurosurgery, no acute intervention, recommend course of antibiotics and follow up with neurosurgery in 3 months with repeat xrays. Given stable VS and labs, no further acute inpatient intervention, transferred to [facility]. 07/16: Patient resting in bed. She has been complaining of pain to R flank/back pain. She is concerned about labs & kidney function. Have reviewed labs with patient. VSS. She would like dcp prior to dc of IV abx if progressed in therapy. Have discussed with SS. No other patient or nursing concerns. DVT prop: Lovenox Recent Labs: Recent Results (from the past week) CBC without differential Collection Time: 07/16/24 5:56 AM Result Value Ref Range WBC 5.8 3.8 - 9.9 K/cumm Hgb 10.9 (L) 11.9 - 15.5 g/dL Hct 34.6 (L) 35.6 - 45.5 % Plt 256 150 - 400 K/cumm MPV 10.0 9.1 - 12.3 fL RBC 3.76 (L) 3.90 - 5.20 M/cumm MCV 92.0 81.3 - 96.4 fL MCH 29.0 27.1 - 33.3 pg MCHC 31.5 (L) 32.3 - 35.7 g/dL RDW CV 15.7 (H) 11.1 - 14.9 % RDW SD 52.8 (H) 35.7 - 48.1 fL NRBC abs 0.00 0.00 - 0.01 K/cumm Comprehensive metabolic panel Collection Time: 07/16/24 5:56 AM Result Value Ref Range Sodium 140 135 - 145 mmol/L Potassium, pl 4.0 3.3 - 4.9 mmol/L Chloride 105 97 - 110 mmol/L CO2 28 22 - 32 mmol/L Anion gap 7 2 - 15 mmol/L BUN 13 6 - 25 mg/dL Creatinine 0.66 0.60 - 1.10 mg/dL Glucose 90 70 - 199 mg/dL Calcium 9.5 8.5 - 10.3 mg/dL Bilirubin, total 0.3 0.1 - 1.2 mg/dL Protein, pl 6.6 6.5 - 8.5 g/dL Albumin 3.5 3.5 - 5.0 g/dL Alk phos 141 (H) 40 - 130 Units/L ALT 14 7 - 45 Units/L AST 15 10 - 45 Units/L eGFR Collection Time: 07/16/24 5:56 AM Result Value Ref Range eGFR >90 >=60 mL/min/1.73 m2 Medications reviewed today. Vital Signs: Vitals BP 120/72 Pulse 78 Review of Systems: SEE HPI Physical Exam: Physical Exam Vitals and nursing note reviewed. Constitutional: General: She is not in acute distress. Cardiovascular: Rate and Rhythm: Normal rate and regular rhythm. Pulmonary: Effort: Pulmonary effort is normal. Breath sounds: Normal breath sounds. Abdominal: General: Bowel sounds are normal. There is no distension. Palpations: Abdomen is soft. Tenderness: There is no abdominal tenderness. Musculoskeletal: General: Normal range of motion. Right lower leg: No edema. Left lower leg: No edema. Comments: TLSO when OOB Skin: Comments: LUE PICC Neurological: General: No focal deficit present. Mental Status: She is alert and oriented to person, place, and time. Mental status is at baseline. Psychiatric: Mood and Affect: Mood and affect normal. Behavior: Behavior normal. Electronically signed by Mary Trivedi NP 07/16/2024 1:40 PM Voice recognition software [employer] Direct was used dictate and transcribe this document. Mammal Control Agent variances may occur. Despite proofreading, typographical errors may occur. Cosigned by Genaro Jaramillo MD at 07/16/2024 1:58 PM DIESEL ENGINE II PIPE FITTER EL ENGINE II PIPE FITTER EL ENGINE II PIPE FITTER documented in this encounter Miscellaneous Notes * Assessment & Plan Note - Mary Trivedi NP - 07/16/2024 1:40 PM DIESEL ENGINE II PIPE FITTER Associated Problem(s): Benign hypertension BP stable. Previously on losartan 100mg, hydrochlorothiazide 12.5mg. Montior for need to restart. EL ENGINE II PIPE FITTER * Assessment & Plan Note - Mary Trivedi NP - 07/16/2024 1:39 PM DIESEL ENGINE II PIPE FITTER Associated Problem(s): Chronic low back pain with bilateral sciatica Increased, SEE ABOVE EL ENGINE II PIPE FITTER * Assessment & Plan Note - Mary Trivedi NP - 07/16/2024 1:36 PM DIESEL ENGINE II PIPE FITTER Associated Problem(s): Osteomyelitis of lumbar spine (HCC) L4-L5 Osteomyelitis/discitis with epidural phlegmon. S/p IR biopsy on 06/28 - Path reveals no malignancy and no evidence of definitive osteomyelitis. Tissue cultures no growth. Blood cx 06/27 NGTD. No indication for neurosurgical intervention. Follow up with Dr. Fischer in 3 months. Per ID, IV cefepime 2000mg every 12 hours for 6 weeks (~06/28 through 08/09), weekly CBC, CMP, CRP. Outpatient ID follow up. TLSO brace. Brace to be worn at all times when head of bed >30 degrees, when upright, out of bed, in chair or walking. Spinal Precautions. Continue Lovenox DVT prop. Pain isn't well controlled. Continue Tyl 1000mg BID, PRN [place] q8h, Increase Gabapentin to 300mg TID, Schedule Flexeril T ID, & start Lidoderm patch. EL ENGINE II PIPE FITTER documented in this encounter Plan of Treatment Not on file documented as of this encounter Visit Diagnoses Diagnosis Osteomyelitis of lumbar spine (HCC)- Primary Epidural abscess Intracranial abscess Discitis of lumbar region Other and unspecified disc disorder of lumbar region 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 sciatica Benign hypertension Essential hypertension, benign documented in this encounter Care Teams Finance Professor Relationship Specialty Start Date End Date Omid Douglass MD [facility] [place] [address] PCP - General 12/15/11 documented as of this encounter
--- OUTSIDE RECORDS SUMMARY | 2024-09-07 15:30 | XMS_ITS | Encounter Summary ---
Author Organization [facility] Address [address] [place] [address] Care Team Providers Care Yarrow Gatherer Name Role Phone Tracy Olivares MD Primary Care Provider [phone] Encounter Details Date Type Department Care Team [...] st Contact Info) Description 10/04/2024 10:00 AM GERENTOLOGICAL PHYSIOTHERAPIST Office Visit [facility] [place] [facility] [place] [address] [place] [address] Harris Fischer MD [address] [facility] [place] [address] documented as of this encounter Visit Diagnoses Not on filedocumented in this encounter Care Teams Yarrow Gatherer Relationship Specialty Start Date End Date Tracy Olivares MD [address] [place] [address] PCP - General Internal Medicine 07/02/24 documented as of this encounter
--- OUTSIDE RECORDS SUMMARY | 2024-09-07 15:30 | XMS_ITS | Encounter Summary ---
Author Organization [facility] Address [address] [place] [address] Care Team Providers Care Lapping Machine Operator Name Role Phone Omid Douglass MD Primary Care Provider [phone] Encounter Details Date Type Department Care Team (Late st Contact Info) Description 07/11/2024 NH/SNF Visit [facility] Post Acute Care [address] [id number] Genaro Jaramillo MD [address] [place] [id number] Osteomyelitis of lumbar spine (HCC) (Primary Dx); Arthralgia, unspecified joint; Hyperlipidemia, unspecified hyperlipidemia type; Benign hypertension; Type 2 diabetes mellitus with hyperglycemia, without long-term current use of insulin (HCC); Glaucoma, unspecified glaucoma type, unspecified laterality; Gastroesophageal reflux disease, unspecified whether esophagitis present; RLS (restless legs syndrome); Other polyneuropathy; Obstructive sleep apnea syndrome; Moderate episode of recurrent major depressive disorder (HCC); Chronic obstructive pulmonary disease, unspecified COPD type (HCC) Social History Tobacco Use Types Packs/Day Years Used Date Smoking Tobacco: Never Assessed Comments Unknown Sex and Gender Information Value Date Recorded Sex Assigned at Not on file Legal 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 Gender Identity Not on file Sexual Orientation Not on file documented as of this encounter Last Filed Vital Signs Vital Sign Reading Time Taken Comments Blood Pressure 145/76 07/11/2024 10:57 AM CDT Pulse 79 07/11/2024 10:57 AM CDT Temperature 36.7 ??C (98.1 ??F) 07/11/2024 10:57 AM C DT Respiratory Rate 18 07/11/2024 10:57 AM CDT Oxygen Saturation 100% 07/11/2024 10:57 AM CDT Inhaled Oxygen Concentration - - Weight - - Height - - Body Mass Index - - documented in this encounter Ordered Prescriptions Prescription Sig Dispense Quantity Refills Last Filled Start Date End Date HYDROcodone-acetam inophen (NORCO) 5-325 mg per tabletIndications: Arthralgia, unspecified joint Take 1 tablet by mouth every 8 (eight) hours as needed for pain 60 tablet 07/11/2024 07/23/2024 documented in this encounter Progress Notes * Genaro Jaramillo MD - 07/11/2024 10:55 AM CDT Images from the original note were not included. [facility] History and Physical Date of service: July 11, 2024 Primary care provider: Omid Douglass MD SUBJECTIVE HPI: This is a very pleasant woman of stated age who arrives at [facility] senior care facility after [facility] days inpatient [facility]. She was admitted to the hospital with the acute low back pain and subsequently found to have osteomyelitis at L4-L5 and an epidural phlegmon. Her biopsy was negative. She w as placed on IV cefepime and she is to continue this x6 weeks with follow up labs. She is to see Dr. Fischer in 3 months. She is to wear a TLSO when out of bed and to avoid lifting greater than 8 lb. There is to be no bending or twisting. Therapy is so advised. At the present time she denies uncontrolled pain or unmet needs. She denies constipation. DVT Prophylaxis: Lovenox Code status: Full code A/P: Diagnoses and all orders for this visit: Osteomyelitis of lumbar spine (HCC) (Primary) Assessment & Plan: Subacute, currently stable. Continue cefepime 2 g IV every 12 hours, cyclobenzaprine 10 mg t.i.d. p.r.n. spasm, gabapentin and Higden as scripted. Consult physical and occupational therapy Arthralgia, unspecified joint - HYDROcodone-acetaminophen (NORCO) 5-325 mg per tablet; Take 1 tablet by mouth every 8 (eight) hours as needed for pain Hyperlipidemia, unspecified hyperlipidemia type Assessment & Plan: This is chronic and stable. Continue atorvastatin 20 mg a day Benign hypertension Assessment & Plan: This is chronic and stable. Continue to monitor vital signs for trending. Type 2 diabetes mellitus with hyperglycemia, without long-term current use of insulin ([facility]) Assessment & Plan: Monitor follow up labs. Continue 81 mg aspirin and atorvastatin. Continue empagliflozin Glaucoma, unspecified glaucoma type, unspecified laterality Gastroesophageal reflux disease, unspecified whether esophagitis present Assessment & Plan: Continue omeprazole RLS (restless legs syndrome) Other polyneuropathy Assessment & Plan: Continue gabapentin 300 mg p.o. b.i.d. Obstructive sleep apnea syndrome Moderate episode of recurrent major depressive disorder ([facility]) Chronic obstructive pulmonary disease, unspecified COPD type ([facility]) Assessment & Plan: And asthma, both chronic. Continue albuterol 2 puffs q.6 hours p.r.n. wheezing. No past medical history on file. No past surgical history on file. (Not in a hospital admission) Allergies Allergen Reactions Celecoxib Itching Propoxyphene Unknown Social History Tobacco Use Smoking status: Not on file Smokeless tobacco: Not on file Substance and Sexual Activity Drug use: Not on file Sexual activity: Not on file Alcohol Use: Not on file No family history on file. Prior to Admission medications Medication Sig Start Date End Date Taking? Authorizing Provider albuterol HFA (PROVENTIL HFA,VENTOLIN HFA,PROAIR HFA) 90 mcg/actuation inhaler Inhale 2 puffs every6 (six) hours as needed 03/20/24 08/09/24 Yes Herlinda Edmond MD aspirin 81 mg enteric coated tablet Take 1 tablet (81 mg total) by mouth daily 07/10/24 08/09/24 Yes Herlinda Edmond MD atorvastatin (LIPITOR) 20 mg tablet Take 1 tablet (20 mg total) by mouth daily 03/20/24 08/09/24 Yes Herlinda Edmond MD cholecalciferol (VITAMIN D-3) 2000 unit capsule Take 1 capsule (2,000 Units total) by mouth daily 07/10/24 08/09/24 Yes Herlinda Edmond MD cyclobenzaprine (FLEXERIL) 10 mg tablet Take 1 tablet (10 mg total) by mouth 3 (three) times a day as needed 07/10/24 07/17/24 Yes Herlinda Edmond MD empagliflozin (JARDIANCE) 25 mg tablet Take 1 tablet (25 mg total) by mouth daily 03/27/24 08/09/24 Yes Herlinda Edmond MD famotidine (PEPCID) 20 mg tablet Take 1 tablet (20 mg total) by mouth 2 (two) times a day 03/20/24 Yes Herlinda Edmond MD futkzplosrl-yhbtqnfmw-yechwgnj (TRELEGY ELLIPTA) 200-62.5-25 mcg inhaler Inhale 1 puff daily 07/10/24 08/09/24 Yes Herlinda Edmond MD gabapentin (NEURONTIN) 300 mg capsule Take 1 capsule (300 mg total) by mouth 2 (two) times a day 04/25/24 08/09/24 Yes Herlinda Edmond MD melatonin tablet Take 1 tablet (3 mg total) by mouth nightly as needed 07/02/24 Yes Herlinda Edmond MD polyethylene glycol (MIRALAX) 17 gram packet Take 1 packet (17 g total) by mouth daily as needed 07/02/24 Yes Herlinda Edmond MD senna-docusate (PERICOLACE) 8.6-50 mg Take 1 tablet by mouth 2 (two) times a day as needed 07/02/24Yes Herlinda Edmond MD HYDROcodone-acetaminophen (NORCO) 5-325 mg per tablet Take 1 tablet by mouth every 8 (eight) hours as needed for pain 07/11/24 08/10/24 Genaro Jaramillo MD pantoprazole DR (PROTONIX) 40 mg EC tablet Take 1 tablet (40 mg total) by mouth daily Herlinda Edmond MD OBJECTIVE Vital Signs: Vitals BP 145/76 Pulse 79 Temp 36.7 ??C (98.1 ??F) Resp 18 SpO2 100% Review of Systems: SEE HPI Physical Exam: Physical Exam Vitals reviewed. Exam conducted with a coil connector present. Constitutional: General: She is not in acute distress. Appearance: She is not ill-appearing, toxic-appearing or diaphoretic. HENT: Head: Normocephalic and atraumatic. Nose: Nose normal. No congestion or rhinorrhea. Eyes: General: Right eye: No discharge. Left eye: No discharge. Extraocular Movements: Extraocular movements intact. Cardiovascular: Rate and Rhythm: Normal rate and regular rhythm. Heart sounds: Normal heart sounds. No murmur heard. No friction rub. Pulmonary: Effort: Pulmonary effort is normal. No respiratory distress. Breath sounds: Normal breath sounds. No stridor. No wheezing. Abdominal: General: There is no distension. Palpations: Abdomen is soft. There is no mass. Tenderness: There is no abdominal tenderness. There is no guarding. Skin: General: Skin is dry. Coloration: Skin is not jaundiced or pale. Findings: No erythema. Neurological: General: No focal deficit present. Mental Status: She is alert and oriented to person, place, and time. Cranial Nerves: No cranial nerve deficit. Psychiatric: Mood and Affect: Mood normal. Behavior: Behavior normal. Thought Content: Thought content normal. Judgment: Judgment normal. Lab/Radiology/Diagnostic Review: No results found for this or any previous visit (from the past 72 hour(s)). XR Chest 1 View Result Date: 07/09/2024 [...] active disease. DICTATION LOCATION: Location 1 - [facility] XR Spine Lumbar 2 or 3 Views Result Date: 06/29/2024 Narrative: XR LUMBAR SPINE 2 OR 3 VW DATE: 06/29/2024 4:25 PM CLINICAL INDICATION: Discitis. COMPARISON: MR lumbar spine with contrast 06/27/2024. TECHNIQUE/FINDINGS: L5 is sacralized. There is redemonstration of irregular endplate changes at L4-L5 secondary to discitis/osteomyelitis. Remaining visu alized intervertebral disc heights are relatively preserved. There is stable stepwise grade 1 degenerative anterolisthesis of L2-L3, L3-L4, and L4-L5. No interval vertebral collapse is appreciated. Visualized bowel gas pattern is nonspecific. Impression: IMPRESSION: 1. Stable irregular endplate changes at L4-L5 consistent with discitis/osteomyelitis. 2. Unchanged grade 1 anterolisthesis of L2-L3, L3- L4, and L4-L5. DICTATION LOCATION: Location 4 IR BIOPSY Result Date: 06/28/2024 Narrative: FLUOROSCOPIC-GUIDED PERCUTANEOUS BIOPSY OF L4 VERTEBRAL BODY [...] in a biplane fashion. Under direct fluoroscopic guidance,a single osteointroducer needle was advanced into the inferior L4 vertebral body via left transpedicular access. A biopsy was performed. Samples were sent for microbiology and pathology testing. The needle was removed and a sterile dressing was applied. The patient tolerated the procedure well. Impression: IMPRESSION: Fluoroscopic guided biopsy of the L4 vertebral body. DICTATION LOCATION: Location 1, [facility] MRI Lumbar Spine W WO Contrast Result Date: 06/27/2024 Narrative: EXAM: MRI LUMBAR W WO CONTRAST DATE: 06/27/2024 3:43 AM CLINICAL HISTORY: Back pain. Lowback pain. Suspected infection. TECHNIQUE: Multiple sagittal and axial MR sequences were obtained of the lumbar spine without and with the use of IV contrast. IV CONTRAST: 20 mL ProHance COMPARISON: None. FINDINGS: Transitional vertebral anatomy. For the purposes of this dictation. Hypoplastic 12thribs are noted, the first nonrib-bearing vertebral body is L1, the last fully formed disc spaces L4-5, there is partial sacralization of L5 and a prominent rudimentary disc space at L5-S1. There is preservation of the normal lumbar lordosis. 2 mm anterolisthesis L2-3. There are no wedge-shaped compr ession deformities. Fluid signal and enhancement noted at the L4-5 disc space. Associated enhancingT1 hypointense marrow edema at the L4-L5 endplates. This is worse at the inferior endplate of L4 where there is suspected endplate irregularity. Enhancement in the associated paraspinal soft tissues.Adjacent ventral epidural enhancement and thickening. No peripherally [...] bulge abuts traversing L4 nerve roots at t he level of the disc. L4-L5: Disc and endplate abnormality as discussed above. Small disc bulge. There is ligamentum flavum thickening and severe facet arthropathy. There is no neural foraminal narrowing. There is moderate spinal canal stenosis. Asymmetric disc bulge impinges upon the traversing C2awpva roots on the right and abuts traversing L5 nerve roots on the left. L5-S1: Prominent rudimentary disc space. There is no facet arthropathy. There is no neural foraminal narrowing. There is no spinal canal stenosis. INCIDENTAL FINDINGS: None. Impression: IMPRESSION: 1. Transitional vertebral anatomy noted as [...] foraminal narrowing noted as described. DICTATION LOCATION: [place] [address] - [facility] Current Medications: Reconciled Electronically signed by Genaro Jaramillo MD 07/14/2024 2:58 PM Voice recognition software [employer] Direct was used dictate and transcribe this document. Cutter [employer] variances may occur. Despite proofreading, typographical errors may occur. documented in this encounter Miscellaneous Notes * Assessment & Plan Note - Genaro Jaramillo MD - 07/14/2024 2:58 PM CDT Associated Problem(s): Osteomyelitis of lumbar spine (HCC) Subacute, currently stable. Continue cefepime 2 g IV every 12 hours, cyclobenzaprine 10 mg t.i.d. p.r.n. spasm, gabapentin and Higden as scripted. Consult physical and occupational therapy * Assessment & Plan Note - Genaro Jaramillo MD - 07/14/2024 2:57 PM CDT Associated Problem(s): Chronic obstructive pulmonary disease (HCC) And asthma, both chronic. Continue albuterol 2 puffs q.6 hours p.r.n. wheezing. * Assessment & Plan Note - Genaro Jaramillo MD - 07/14/2024 2:57 PM CDT Associated Problem(s): Peripheral neuropathy Continue gabapentin 300 mg p.o. b.i.d. * Assessment & Plan Note - Genaro Jaramillo MD - 07/14/2024 2:56 PM CDT Associated Problem(s): Gastroesophageal reflux disease Continue omeprazole * Assessment & Plan Note - Genaro Jaramillo MD - 07/14/2024 2:56 PM CDT Associated Problem(s): Type 2 diabetes mellitus with hyperglycemia, without long-term current use of insulin (HCC) Monitor follow up labs. Continue 81 mg aspirin and atorvastatin. Continue empagliflozin * Assessment & Plan Note - Genaro Jaramillo MD - 07/14/2024 2:55 PM CDT Associated Problem(s): Benign hypertension This is chronic and stable. Continue to monitor vital signs for trending. * Assessment & Plan Note - Genaro Jaramillo MD - 07/14/2024 2:55 PM CDT Associated Problem(s): HLD (hyperlipidemia) This is chronic and stable. Continue atorvastatin 20 mg a day documented in this encounter Plan of Treatment Not on file documented as of this encounter Visit Diagnoses Diagnosis Osteomyelitis of lumbar spine (HCC)- Primary Arthralgia, unspecified joint Hyperlipidemia, unspecified hyperlipidemia type Benign hypertension Essential hypertension, benign Type 2 diabetes mellitus with hyperglycemia, without long-term current use of insulin (HCC) Glaucoma, unspecified glaucoma type, unspecified laterality Gastroesophageal reflux disease, unspecified whether esophagitis present RLS (restless legs syndrome) Restless legs syndrome (RLS) Other polyneuropathy Obstructive sleep apnea syndrome Obstructive sleep apnea (adult) (pediatric) Moderate episode of recurrent major depressive disorder (HCC) Chronic obstructive pulmonary disease, unspecified COPD type (HCC) documented in this encounter Discontinued Medications Medication Sig Discontinue Reason Start Date End Da te HYDROcodone-acetaminophe n (NORCO) 5-325 mg per tablet Take 1 tablet by mouth every 8 (eight) hours as needed Reorder 07/10/2024 07/11/2024 documented as of this encounter Historical Medications * This list may reflect changes made after this encounter. polyethylene glycol (MIRALAX) 17 gram packet Take 1 packet (17 g total) by mouth daily as needed 07/02/[address] (PROTONIX) 40 mg EC tablet Take 1 tablet (40 mg total) by mouth daily melatonin tablet Take 1 tablet (3 mg total) by mouth nightly as needed 07/02/2024 gabapentin (NEURONTIN) 300 mg capsule Take 1 capsule (300 mg total) by mouth 2 (two) times a day 04/25/2024 fluticasone-umecl idin-vilanter (TRELEGY ELLIPTA) 200-62.5-25 mcg inhaler Inhale 1 puff daily 07/10/2024 famotidine (PEPCID) 20 mg tablet Take 1 tablet (20 mg total) by mouth 2 (two) times a day 03/20/2024 empagliflozin (JARDIANCE) 25 mg tablet Take 1 tablet (25 mg total) by mouth daily 03/27/2024 cyclobenzaprine (FLEXERIL) 10 mg tablet Take 1 tablet (10 mg total) by mouth 3 (three) times a day as needed 07/10/2024 cholecalciferol (VITAMIN D-3) 2000 unit capsule Take 1 capsule (2,000 Units total) by mouth daily 07/10/2024 atorvastatin (LIPITOR) 20 mg tablet Take 1 tablet (20 mg total) by mouth daily 03/20/2024 aspirin 81 mg enteric coated tablet Take 1 tablet (81 mg total) by mouth daily 07/10/2024 albuterol HFA (PROVENTIL HFA,VENTOLIN HFA,PROAIR HFA) 90 mcg/actuation inhaler Inhale 2 puffs every 6 (six) hours as needed 03/20/2024 senna-docusate (PERICOLACE) 8.6-50 mg Take 1 tablet by mouth 2 (two) times a day as needed 07/02/2024 07/23/2024 HYDROcodone-aceta minophen (NORCO) 5-325 mg per tablet Take 1 tablet by mouth every 8 (eight) hours as needed 07/10/2024 07/11/2024 added in this encounter Care Teams Lapping Machine Operator Relationship Specialty Start Date End Date Omid Douglass MD [address] [place] [address] [place] [address] PCP - General 12/15/11 documented as of this encounter
--- OUTSIDE RECORDS SUMMARY | 2024-09-07 15:30 | XMS_ITS | Encounter Summary ---
Author Organization [facility] Address [address] [place] [address] Care Team Providers Care Building Performance Specialist Name Role Phone Tracy Olivares MD Primary Care Provider [phone] Reason for Visit * Auth/Cert (Routine) Specialty Diagnoses / Procedures Referred By Heidi iverson Referred To Contact Orthopedic Surgery Diagnoses lumbar discitis Aissatou Lanza, [address] [place] [address] [facility] [address] [place] [address] Referral ID Status Reason Start Date Expiration Date Visits Re quested Visits Authorized [id number] 1 1 Encounter Details Date Type Department Care Team (Latest Contact Info) Description 06/27/2024 12:46 AM CDT - 07/10/2024 12:43 PM CDT Hospital Encounter [facility] [address] [place] [address] Aissatou Lanza, DO [address] [place] [address] Daljit Bravo MD [address] [place] [address] [place] [address] Mia Fowler MD [address] [id number] Sydnie Sequeira MD [address] [address] Dylan Jackson MD [address] [place] [address] Discitis of lumbar region Discharge Disposition: Discharged/transferr ed to a group home facility (SNF) with Medicare certificatio Social History [...] CDT [facility] Hospitalist Discharge Summary Kegean Amaya 68 y.o. 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 BP has been [...] as needed for heart burn. Refills: 0 yqzdmvnwdaw-wyurtbktgllm-yivgfgwcli 200-62.5-25 mcg Disk with Device Commonly known [...] Your Medications These medications were sent to [address] [address] albuterol sulfate 90 mcg/Actuation inhaler aspirin 81 mg Tablet, Delayed Release (E.C.) atorvastatin 20 mg tablet Cholecalciferol (Vitamin D3) 50 mcg (2,000 unit) Capsule cyclobenzaprine 10 mg tablet empagliflozin 25 mg tablet uappxjjqsyn-ejfdlnrnvvdm-yfhfpbjrjw 200-62.5-25 mcg Disk with Device gabapentin 300 [...] CONSULT TO INFECTIOUS DISEASES IP CONSULT TO LIBRARIAN IP CONSULT TO IV TEAM IP CONSULT [...] Jackson MD and may be reached at [phone] for any questions or concerns until you [...] for osteomyelitis. You willneed follow-up in our [facility] Neurosurgery Physician [facility] clinic in 3 months. >> Call the [...] of your spine and worsen your fracture [facility] Patient Instructions Care for Your Peripherally Inserted [...] a day or two. You can take tvhv-zni-eezujpn pain medicine, such as Tylenol or Advil, [...] 07/10/24 0900 Discharge Planning Plan Discharge To [facility] Facility Transportation Provider [facility] Transportation Contact Name Hudson Final Discharge Arrangements Care Facility Name [facility] Care Facility Contact Name [facility] Phone Number [phone] Date Of Pick-Up 07/10/24 Time Of Pick-Up [...] is Eve Muro, who canbe reached at [phone]. Portia Lynne RN, BSN Computer Systems Engineer [id number] * Hannah Grimes RD - 07/10/2024 9:42 AM CDT Images from the original note were not included. CLINICAL DIETITIAN PROGRESS NOTE [facility] Nutrition Risk Screen (LOS) Pt screened for length of stay. Pt with adequate po intake- currently eating 100% at meals. No nutrition intervention planned unless consulted or pt falls into nutrition risk. Will monitor po intake PRN. * Sydnie Sequeira MD - 07/09/2024 7:25 PM CDT [facility] Adult Progress Note Admit Date: 06/27/2024 Date [...] Peripheral neuropathy: -Continue gabapentin # HTN: - SET UP AND CHARGER losartan and hydrochlorothiazide on hold - BP [...] the last 72 hours. Sydnie Sequeira MD [facility] Message via secure chat (7 AM to 7 PM) Virtual ticket system to [facility] Hospitalist (7PM to 7AM) * Sydnie Sequeira MD - 07/08/2024 4:34 PM CDT [facility] Adult Progress Note Admit Date: 06/27/2024 Date [...] Peripheral neuropathy: -Continue gabapentin # HTN: - SET UP AND CHARGER losartan and hydrochlorothiazide on hold - BP [...] up to bedside commode;back to bed (07/08/24 6693) Rubio catheter:absent Current Code Status -Full Code [...] the last 72 hours. Sydnie Sequeira MD [facility] Message via secure chat (7 AM to 7 PM) Virtual ticket system to [facility] Hospitalist (7PM to 7AM) * Danielle Hernandez [...] Sequeira MD - 07/07/2024 12:45 PM CDT [facility] Adult Progress Note Admit Date: 06/27/2024 Date [...] Peripheral neuropathy: -Continue gabapentin # HTN: - SET UP AND CHARGER losartan and hydrochlorothiazide on hold - BP [...] the last 72 hours. Sydnie Sequeira MD [facility] Message via secure chat (7 AM to 7 PM) Virtual ticket system to [facility] (7PM to 7AM) * Sydnie Sequeira MD - 07/06/2024 4:16 PM CDT [facility] Adult Progress Note Admit Date: 06/27/2024 Date [...] Peripheral neuropathy: -Continue gabapentin # HTN: - SET UP AND CHARGER losartan and hydrochlorothiazide on hold - BP [...] in room;up in bathroom;up to chair (07/06/24 6764) Rubio catheter:absent Current Code Status -Full Code [...] the last 72 hours. Sydnie Sequeira MD [facility] Message via secure chat (7 AM to 7 PM) Virtual ticket system to [facility] (7PM to 7AM) * Sanaz Massey RN [...] Sequeira MD - 07/05/2024 1:28 PM CDT [facility] Adult Progress Note Admit Date: 06/27/2024 Date [...] Peripheral neuropathy: -Continue gabapentin # HTN: - SET UP AND CHARGER losartan and hydrochlorothiazide on hold - BP [...] controlled. Wantsto be closer to home in [place]. Objective BP 112/83 (BP Location: Right arm, [...] the last 72 hours. Sydnie Sequeira MD [facility] Message via secure chat (7 AM to 7 PM) Virtual ticket system to [facility] Hospitalist (7PM to 7AM) * Rashi Moya RN - 07/05/2024 4:28 AM CDT Keegan Amaya is resting in bed, CPAP device in place, VSS, NAD, oriented X4. Pain controlled withoral pain medications as needed. Fall precautions maintained. Hygiene maintained. Tolerating diet. Blood sugars checked prior to meals and corrected with insulin as needed. * Sydnie Sequeira MD - 07/04/2024 2:40 PM CDT [facility] Adult Progress Note Admit Date: 06/27/2024 Date [...] Peripheral neuropathy: -Continue gabapentin # HTN: - SET UP AND CHARGER losartan and hydrochlorothiazide on hold - BP [...] the last 72 hours. Sydnie Sequeira MD [facility] Message via secure chat (7 AM to 7 PM) Virtual ticket system to [facility] Hospitalist (7PM to 7AM) * Sydnie Sequeira MD - 07/03/2024 3:44 PM CDT [facility] Adult Progress Note Admit Date: 06/27/2024 Date [...] Peripheral neuropathy: -Continue gabapentin # HTN: - SET UP AND CHARGER losartan and hydrochlorothiazide on hold - BP [...] the last 72 hours. Sydnie Sequeira MD [facility] Hospitalist Message via secure chat (7 AM to 7 PM) Virtual ticket system to [facility] Hospitalist (7PM to 7AM) * Indio Oliver [...] Follow-up after discharge: Indio Oliver MD, FACP, [facility] Infectious Diseases Office Exchange: [phone] * Mia Fowler MD - 07/02/2024 2:49 PM CDT [facility] Adult Hospitalist Progress Note Admit Date: 06/27/2024 [...] abx. Pt needs teaching. - home with [facility] and iv abx once arranged # HLD: -Continue home atorvastatin # Hx asthma, Emphysema: With no acute exacerbation. -Continue home Trelegy and albuterol as needed # FAISAL: -resumed CPAP # GERD: -resumed pantoprazole # Type 2 DM: - Holding home oral med. - Continue SSI. - BG well controlled # Peripheral neuropathy: -Continue gabapentin # HTN: - SET UP AND CHARGER losartan and hydrochlorothiazide on hold # Constipation [...] record, Referring and communication with other health career development director (not separately reported), Independently interpreting results and communicating results to the patient/family/caregiver (not separately reported), and Care coordination (not separately reported). Mia Fowler MD Please contact me via ADstruc Secure Chat from 7am-7pm After hours please place E-ticket to [facility] * Judy Murcia PHARMACIST - 07/02/2024 11:03 [...] Fowler MD - 07/01/2024 12:53 PM CDT [facility] Adult Hospitalist Progress Note Admit Date: 06/27/2024 [...] Peripheral neuropathy: -Continue gabapentin # HTN: - SET UP AND CHARGER losartan and hydrochlorothiazide on hold # Constipation [...] record, Referring and communication with other health career development director (not separately reported), Independently interpreting results and communicating results to the patient/family/caregiver (not separately reported), and Care coordination (not separately reported). Mia Fowler MD Please contact me via ADstruc Secure Chat from 7am-7pm After hours please place E-ticket to [facility] * Rashi Moya RN - 06/30/2024 2:15 [...] Only* (Tue- 7:30am-5pm and Tue-Tue 24 hours): [phone] NS[facility] After Hours Exchange: [phone] NS[facility] Office (Tue-Tue 8:30am-4:30pm): [phone] * Mia Fowler MD - 06/30/2024 12:37 PM CDT [facility] Adult Hospitalist Progress Note Admit Date: 06/27/2024 [...] Peripheral neuropathy: -Continue gabapentin # HTN: - SET UP AND CHARGER losartan and hydrochlorothiazide on hold # Constipation [...] record, Referring and communication with other health career development director (not separately reported), Independently interpreting results and communicating results to the patient/family/caregiver (not separately reported), and Care coordination (not separately reported). Mia Fowler MD Please contact me via AD[employer]c Secure Chat from 7am-7pm After hours please place E-ticket to [facility] * Rashi Moya, RN - 06/29/2024 3:38 PM CDT Keegan Amaya is resting in bed, breathing on room air, VSS, NAD, oriented X4. Pain controlled with oral pain medications as needed. Fall precautions maintained. Hygiene maintained. Patient voiding in bedside commode. TLSO brought by [facility]. Awaiting upright xrays. * Mia Fowler MD - 06/29/2024 7:43 AM CDT [facility] Adult Hospitalist Progress Note Admit Date: 06/27/2024 [...] record, Referring and communication with other health career development director (not separately reported), Independently interpreting results and communicating results to the patient/family/caregiver (not separately reported), and Care coordination (not separately reported). Mai Fowler MD Please contact me via ADstruc Secure Chat from 7am-7pm After hours please place E-ticket to [facility] * Indio Oliver MD - 06/28/2024 2:47 [...] after discharge: Indio Oliver MD, FACP, YURY [facility] Infectious Diseases Office Exchange: [phone] * Kt Bruner MD - 06/28/2024 12:46 PM CDT [facility] Adult Hospitalist Progress Note Admit Date: 06/27/2024 [...] record, Referring and communication with other health career development director (not separately reported), Independently interpreting results and communicating results to the patient/family/caregiver (not separately reported), and Care coordination (not separately reported). Kt Bruner MD Please contact me via ADstruc Secure Chat from 7am-7pm After hours please place E-ticket to [facility] * Halley Judd RN - 06/28/2024 11:39 [...] included. [facility] Adult Therapeutic Orders Protocol [facility] Approved by: [facility] - Medical Executive Committee Approval Date: 09/01/2023 ORDERS ARE ENTERED ???PER PROTOCOL?? Enter the protocol in the patient's electronic health record using smartphrase:.nursingtheraputicordersprotocol For adult inpatients with complaints of minor discomfort Nursing Orders: [id number] Ice Pack/Cold Therapy 20 minutes every 2 hours to affected area. FOF014 Warm Compress/Heat to affected area 20 minutes [...] Bruner MD - 06/27/2024 1:30 PM CDT [facility] Adult Hospitalist Progress Note Admit Date: 06/27/2024 [...] record, Referring and communication with other health career development director (not separately reported), Independently interpreting results and communicating results to the patient/family/caregiver (not separately reported), and Care coordination (not separately reported). Kt Bruner MD Please contact me via ADstruc Secure Chat from 7am-7pm After hours please place E-ticket to [facility] * Aislinn Grossman RN - 06/27/2024 7:45 [...] Bravo MD - 06/27/2024 1:05 AM CDT [facility] Adult Hospitalist H&P Patient Name: Keegan Amaya [...] urinary symptoms. [facility]. Additional information may be obtained in patients paper chart. Initial WBC at [facility] revealed WBC of 7.9/ HBG 12.8/ HCT [...] MD After hours please place [facility] documented in this encounter Consult Notes * [...] AM CDTAssociated Order(s): IP CONSULT TO NEUROSURGERY [place], [place] [address] Neurosurgery Consult Patient Name: Keegan Amaya : 1955 [id number] Date of Service: 06/27/2024 Date of Admission: [...] (E.C.) Take 81 mg by mouth daily. eqhldhaezum-nsvcdcospwgu-lfchqwprec (TRELEGY ELLIPTA) 200-62.5-25 mcg Disk with Device [...] Only* (Tue- 7:30am-5pm and Tue-Tue 24 hours): [phone] NS[facility] After Hours Exchange: [phone] NS Office (Tue-Tue 8:30am-4:30pm): [phone] Associated attestation - Harris Fischer MD - 06/27/2024 12:20 PM CDT Attending Neurosurgeon Addendum: I have seen and examined the patient and have discussed management with my physician assistant restaurant general manager. Please see PA note for our unabridged [...] suspension 30 mL 30 mL daily PRN Dalijt Bravo MD Or bisacodyL (DULCOLAX) rectal suppository [...] Daljit Bravo MD Stopped at 06/27/24 1021 jkxgmhfhntk-biufjqlhsnsr-kfgxufjrws (TRELEGY ELLIPTA) 100-62.5-25 mcg inhaler 1 Puff [...] after biopsy Thank you for the consultation, oMise Hebert DO PGY3 ADDENDUM: Patient seen and [...] follow Thank you, Indio Oliver MD, FACP, [facility] Infectious Diseases Office Exchange: [phone] documented in this encounter OR Notes * Iman-OP - Rosa Maria Vallejo RN - 06/28/2024 11:48 AM CDT IR staff informed pt that her family member has left. Report called to [phone] RN * Iman-OP - Rosa Maria Vallejo RN - 06/28/2024 11:47 AM CDT Potential for pain related to surgical/procedural intervention Interventions: Assess level of pain/comfort utilizing verbal/nonverbal pain scales; assess culturalor zoroastrianism indicators attached to pain; administer pain medications [...] L arm, going home with it for penitentiary antibiotics. Pt will be discharging Today. Appropriate [...] Payor: [employer] MEDICARE ADVANTAGE / Plan: Tasspass PPO MCR / Product Type: PPO / Level of Care approved: [facility] Authorization number: [id number] Facility Authorized: [facility] Date(s) of Service: Number of days approved: 4 Additional notes: Auth is good for 48 hours * Care Plan - Jessica Perez - 07/09/2024 12:19 PM CDT PATIENT: Keegan Amaya 1955 Request for Post-Acute Services TRANSFER TO [facility] FAXED TO F# [phone] PENDING [facility] REVIEW REF# [id number] Waiting on determination * Care Plan - Portia Lynne RN - 07/09/2024 11:40 AM CDT Patient:Keegan Amaya Date of :1955 Request for pre certification of Post Acute Services Payer: Payor: [employer] MEDICARE ADVANTAGE / Plan: Tasspass PPO MCR / Product Type: PPO / Level of Care being requested: SNF Reason for Post Acute Services: cefepime 2000mg every 8 hours Community Ambulator SET UP AND CHARGER: YES Facility requested: [facility] Accepting Physician: Keerthi Muro #[id number] Anticipated Discharge Date: 07/09 2 Therapies done within the last 24 hours?: IV abx, PT Diagnosis Code: Osteomyelitis of lumbar spine ICD-10-CM: M46.26 ICD-9-CM: 730.28 06/27/2024 Unknown Portia Lynne RN, BSN Computer Systems Engineer [id number] Problem: Discharge Planning Goal: Identify discharge needs upon admission and through discharge Description: 07/09/2024 1139 by Portia Lynne RN Outcome: Progressing * Susie Plan - Portia Lynne RN - 07/09/2024 9:57 AM CDT CM received [facility] and have bed availability. CM talked with patient at the bedside. Patient states she will talk with her son César and get back with CM within the hour with a decision between the two. CM will follow up to start authorization. Portia Lynne RN, BSN Computer Systems Engineer [id number] Problem: Discharge Planning Goal: Identify discharge needs [...] device Taken 07/05/2024 1319 by Enedina Lucero Event Coordinator Marketing And Sales PT Current Discharge Recommendation: Post acute care Will tolerate 3 hours of therapy PT Recommended DME: To be determined Taken 07/03/2024 1522 by Adolfo Jeronimo Event Coordinator Marketing And Sales Therapy Comments: 07/03: TLSO can be donned [...] Mobility: Supine < > sit min Ax1 SUPERVISOR BLOOMING MILL for trunk elevation. Sits EOB SBA. Dons [...] gait. Stairs: not attempted at this time [facility] Basic Mobility How much help from [...] care for updates on goals. Zone #: [id number] * Care Plan - Portia Lynne RN - 07/09/2024 9:09 AM CDT CM received a call back from [facility]. Birdie/liaison states they havebed availability, but will just have to review referral for acceptance. Birdie/liaison will be getting back. CM called [facility] that is considering, but no bed availability rightnow, to follow up. Portia Lynne RN, BSN Computer Systems Engineer [id number] Problem: Discharge Planning Goal: Identify discharge needs [...] Summary Pt c/o 5/10 pain to back. [place] administered for pain. Patient ambulated with gait [...] maintain baseline function: Patient demonstrated strong hand human resources officer and ankle strength, with purposeful motor responses [...] from the original note were not included. [facility] Adult Therapeutic Orders Protocol [facility] Approved by: [facility] - Medical Executive Committee Approval Date: 09/01/2023 ORDERS ARE ENTERED ???PER PROTOCOL?? Enter the protocol in the patient's electronic health record using smartphrase:.nursingtheraputicordersprotocol For adult inpatients with complaints of minor discomfort Nursing Orders: [id number] Ice Pack/Cold Therapy 20 minutes every 2 hours to affected area. SKZ161 Warm Compress/Heat to affected area 20 minutes [...] Lynne RN - 07/06/2024 4:16 PM CDT Operational Intelligence Officer Discharge Planning Expected Discharge Date Jul 06, [...] - Pending Dialysis/Infusion - Accepted Preferred Pharmacy: [id number] - [place], [place] - [address] [...] received a call back from Kriss/DAVID from [facility] and [facility]. Kriss stated that the patient is approved for SNF and will just need to find an accepting facility and Dominick did confirm that [facility] does take [facility], they just do not have bed availability until next week. CM followed up with SNF referrals by calling César at [facility], no beds until next week, [place] [facility]-looking over referral and will call back, Leena Edwards at [facility]-left message,left message for Bhavana Garcia/Jessie Adams Jun Levin left message for Dipti Mccracken. Portia Lynne RN, BSN Computer Systems Engineer [id number] Problem: Discharge Planning Goal: Identify discharge needs [...] Recommend: Home with Home Health OT (07/06/24 913) Recommendations were made on today's assessment. Additional recommendations will be based on patient's progress in therapy. Equipment Recommended at discharge: To be determined (07/06/24 205) Additional Adaptive Equipment Recommended: Hip Kit (07/06/24 1217) S: Patient agrees to therapy. Patient is [...] chair with verbal cues for technique with payroll technician, Min A standing to manage underwear over [...] activity tolerance. Good balance during functional mobility. [facility] AM-PAC Daily Activity How much help from [...] care for updates on goals. Zone #: [id number] * Care Plan - Portia Lynne RN - 07/06/2024 12:08 PM CDT VERONICA received a decline in the computer from [facility] that facility is full. CM called [facility] and left a message to please call back. CM sent out more SNF referrals [place] [id number] [place]. CM will call and follow up on acceptance and bed availability. CM also called patient [employer] insurance and left a message for Kriss Schuster/UR at [phone] to please call back. Portia Lynne RN, BSN Computer Systems Engineer [id number] Problem: Discharge Planning Goal: Identify discharge needs [...] mood. * Care Plan - Enedina Lucero, Event Coordinator Marketing And Sales - 07/05/2024 1:19 PM CDT Problem: Physical [...] deferred, patient did not ambulate this session. [facility] AM-PAC Basic Mobility How much help from [...] care for updates on goals. Zone #: [id number] * Care Plan - Portia Lynne RN - 07/05/2024 11:00 AM CDT Qian from [facility] called and stated acute rehab appeal had been denied. CM talked with patient at the bedside and patient aware of acute rehab appeal. CM told patient that the 5 start SNF's in [place] have been called and referrals sent. CM is waiting for a call back. Patient agreeable to sent out a few referrals close to the hospital, [facility] incase SNF's in [place] cannot accept her. CM will sent out some SNF referrals near [facility]. ADDENDUM 1600: Patient's son and daughter called [...] requested the referral to be faxed to [phone]. The y fax# in the computer goes to the RN station. CM sent another referral and will follow up tomorrow. Portia Lynne RN, BSN Computer Systems Engineer [id number] Problem: Discharge Planning Goal: Identify discharge needs upon admission and through discharge Description: 07/05/2024 0916 by Portia Lynne RN Outcome: Progressing * Care Plan - Portia Lynne RN - 07/05/2024 9:17 AM CDT CM received phone call from Radha/daughter. updated Radha that Mary Lou from [facility] has started/sent the expedited appeal yesterday afternoon. has called [facility]/adm/Dominick and [facility]/adm/Gladys and left messages to call back with bed availability and acceptance. CM explained that once patient has an accepting SNF, patient can discharge to SNF while waiting for expedited appeal. Daughter verbalized understanding. Portia Lynne RN, BSN Computer Systems Engineer [id number] Problem: Discharge Planning Goal: Identify discharge needs upon admission and through discharge Description: Outcome: Progressing * Therapy Treatment - Enedina Lucero, Event Coordinator Marketing And Sales - 07/05/2024 9:15 AM CDT Patient not seen for PT secondary to unavailability for 2 attempts. 1st attempt, OT was in the roomwith the patient. 2nd attempt at 9:39am RN in the room assisting patient. Will continue to follow patient and will re-attempt as time allows. Thank you. Zone #: [id number] * Care Plan - Lizz Cardona, Molasses Feed Mixer - 07/05/2024 8:42 AM CDT Problem: Physical [...] 929 Additional Recommended Adaptive Equipment: Hip Kit Criminology Professor Problem: Self-Care Deficit Goal: Self care goal: Improve ability to perform self care activities by discharge Description: Patient will require modified independence with grooming/bathing with adaptive equipment/techniques. Outcome: Progressing Goal: Self care goal: Improve dressing ability by discharge Description: Patient will require modified independence with lower extremity dressing with adaptiveequipment/techniques. Outcome: Progressing Flowsheets Taken 07/05/20241137 by Lizz Cardona Molasses Feed Mixer Therapy Comments: APOORVA Goodwin: X Location: back [...] 929 Additional Recommended Adaptive Equipment: Hip Kit Criminology Professor Therapy Plan of Care: 2-5x/week Recommend: Post acute care;Will tolerate 3 hours of therapy (07/05/24 1138) Recommendations were made on today's assessment. Additional recommendations will be based on patient's progress in therapy. Equipment Recommended at discharge: To be determined (07/05/241137) Additional Adaptive Equipment Recommended: Hip Kit;Criminology Professor (07/05/24 1138) S: Patient agrees to therapy. [...] x2 for scooting towards head of bed. [facility] AM-PAC Daily Activity How much help from [...] in status or patient is discharged from [facility]. Plan of Care developed, as indicated by OT assessment and patient's current status. Additional Discharge Information: none Please refer to plan of care for updates on goals. Zone #: [phone] * Care Plan - Portia Lynne RN - 07/04/2024 9:25 AM CDT CM received phone call from Radha/daughter and spoke with Mary Lou/Willie /liaison in person. Authorization denied, Mary Lou is speaking with patient and sending an expedited appeal today. CM will follow up with back up SNF options. Portia Lynne RN, BSN Computer Systems Engineer [phone] Problem: Discharge Planning Goal: Identify discharge needs [...] maintain baseline function: Patient maintained strong hand head inspector and ankle strength, ambulated 40 feet [...] Dressing: Educated patient on sock aid and payroll technician to use for lower body dressing. Min A to doffsocks while sitting edge of bed using payroll technician, with assistance required for getting Left sock [...] x2 for scooting towards head of bed. [facility] AM-PAC Daily Activity How much help from [...] in status or patient is discharged from [facility]. Plan of Care developed, as indicated by OT assessment and patient's current status. Additional Discharge Information: N/A Please refer to plan of care for updates on goals. Zone #: [phone] * Care Plan - Adolfo Jeronimo, Event Coordinator Marketing And Sales - 07/03/2024 3:22 PM CDT Problem: Physical [...] Flowsheets Taken 07/03/2024 152 by Adolfo Jeronimo, Event Coordinator Marketing And Sales Therapy Comments: 07/03: TLSO can be donned [...] steps Stairs: not yet able to tolerate [facility] Basic Mobility How much help from [...] Education Documentation Rehabilitation, taught by Adolfo Jeronimo, Event Coordinator Marketing And Sales at 07/03/2024 3:22 PM. Learner: Patient Readiness: [...] care for updates on goals. Zone #: [phone] * Care Plan - Portia Lynne RN - 07/03/2024 1:00 PM CDT CM received phone call from Qian at [facility] at [phone]. She stated she would call Radha, patient's daughter, and then send for authorization if agreeable. CM will follow up. CMtalked with patient and family at the bedside multiple times and will keep them updated. Portia Lynne RN, BSN Computer Systems Engineer [id number] Problem: Discharge Planning Goal: Identify discharge needs upon admission and through discharge Description: 07/03/2024 0940 by Portia Lynne RN Outcome: Progressing * Query - Mia Fowler MD - 07/03/2024 10:32 AM CDT Please respond within 48 hours. Thank you! The authenticated query note is part of the Legal Health Record Patient Name: Keegan Amaya Admission Date: 06/27/2024 [facility] #: [id number] Dear Doctor, Please continue to document the [...] this query, contact Margaret COLEMAN, RN Clinical Power Grader Operator-Gang Supervisor, Internal Pool [email or web address] * Care Plan - Portia Lynne RN - 07/03/2024 9:40 AM CDT CM received phone call from Radha, patient's daughter. Radha is thinking patient will need some inpatient therapy prior to discharge to home. Radha requested a referral be sent to [facility] rehab in [place], [place]. CM did send referral and will follow up with a phone call. ADDENDUM 1200: CM attempted to call [facility] x3 with busy signal. [facility] and talked with Maria Sifuentes/. Maria Sifuentes stated that once referral received she would call back for information to send for authorization. VERONICA did give Maria Sifuentes phone number to call back. Portia Lynne RN, BSN Computer Systems Engineer [id number] Problem: Discharge Planning Goal: Identify discharge needs [...] PICC line placed today in IR for penitentiary antibiotics. Other peripheral iv's dc'd. All iv tubing changed per protocol with new picc line Discharge: Pt. Stated this afternoon that she is having second thoughts about returning home. Feeling that it might be better /safer for her to go to a SNF/Rehab. milieu coordinator strategic planner notified that patient would like to discuss more options for discharge. Patient has remained free of falls this shift Patient is stable and resting comfortably * Care Plan - Losi Carter, Physical Therapist - 07/02/2024 2:34 PM [...] performed due to decreased tolerance to mobility [facility] AM-PAC Basic Mobility How much help from [...] care for updates on goals. Zone #: [phone] * Home Health - Alexandria Canales - 07/02/2024 1:58 PM CDT This patient is out of our service area for home health, Notified case monitor Eliana Baker . * Care Plan - Eliana Baker RN - 07/02/2024 12:19 PM CDT Problem: Discharge Planning Goal: Identify discharge needs upon admission and through discharge Description: Outcome: Progressing Operational Intelligence Officer Discharge Planning CM continues to follow for discharge planning. Chart reviewed. Discussed with care team at [facility]. Patient will need IV abx at discharge. CM met with patient to discuss discharge plan, rehab versus HHC. Patient prefers to go home. CM discussed home health and home infusion needs. Confirmed patient lives alone. Patient reports her daughter or her son might be able to assist. Patient also has a choreworker once a week for 3 hrs throughher [place] Medicaid benefit. Patient has a rollator, BSC, cane, and shower seat at home. CM requested HHC and home infusion orders be placed so benefits could be checked and provider located. Patient lives in [place], outside of the [facility] service area. Referrals have been sent to some [facility] providers and [facility] for home infusion. 1330 Orders for home IV abx received and sent to [facility] via [facility]. Expected Discharge Date Jul 02, 2024 Plan Discharge To: Home Health Services;Inpatient Rehab Facility (06/27/24 1712) Referrals Status: Facility Referrals - Considering Home Health/Hospice - Pending Dialysis/Infusion - Pending Preferred Pharmacy: [id number] - [place], [place] - [address] Patient / Family Communications Resources Provided Transportation Plan Eliana Baker RN * Treatment Plan - Linda Echeverria RN - 07/02/2024 8:24 AM CDT Images from the original note were not included. Registered Nurse : Kalen Echeverria RNchair post machine operator Radiology Treatment Plan Signed Date of Service: 07/02/2024 [facility] Diagnostic Test (X-Ray) for Verification of Enteral Feeding Tubes, CV Lines, and pH Probe Protocol [facility] Approved by: [facility] - Medical Executive Committee Approval Date: 07/01/2022 ORDERS ARE ENTERED ???PER PROTOCOL?? Enter the protocol in the patient???s electronic health record using CheckiOphrase: .diagnostictestsprotocol Nursing Orders: CENTRAL VENOUS LINE PLACEMENT [...] of a persistent cough. Obtained order from [place] occupational health nurse supervisor for a one time dose of Robitussin. [...] content, Agrees to continue Living Situation/Functional Level SET UP AND CHARGER: Patient lives alone in a 2nd floor [...] promote independence with functional mobility and gait. [facility] Basic Mobility How much help from another [...] section of the medical chart. Zone #: [phone] On weekends--please call [phone] * Therapy Evaluation - Klaudia Chávez Occupational [...] determined (07/01/24 134) Additional Adaptive Equipment Recommended: Criminology Professor;Sock Aid;Shoe Horn;Long handled sponge ([id number]) S: Patient agreeable to therapy. Patient reports not formally rated/10 pain. Denies back pain, c/o LLE pain d/t sciatica. Pain intervention: Unneccessary movement avoided, Repositioned for comfort Response to pain intervention: Appeared content Living Situation/Functional Level SET UP AND CHARGER: Patient lives alone in a 2nd floor [...] for stand to sit back to recliner [facility] AM-PAC Daily Activity How much help from [...] section of the medical chart. Zone #: [phone] On weekends--please call [phone] * Care Plan - Lynn Smith RN [...] Care referral sent for iv infusion in [place] and HHC referrals sent for HHC in [place]. Portia Lynne RN, BSN Computer Systems Engineer [phone] Problem: Discharge Planning Goal: Identify discharge needs [...] and re-attempt as appropriate and able. Thanks [id number] * Therapy Evaluation - Parul Dye Occupational Therapist - 06/29/2024 11:00 AM CDT OT orders received and chart reviewed. OT to hold evaluation this date. Per conversation with RN, pt does not have a TLSO brace in room. Pt is on Bedrest pending brace arrival. Will continue to follow and re-attempt as medically appropriate. Thank you. [id number] * Care Plan - Elena Barker RN [...] Outcome: Progressing * Treatment Plan - Angie Nicohlson, PHARMACIST - 06/28/2024 1:02 PM CDT Pharmacy [...] to follow and re-attempt as able/appropriate. Klaudia [id number] * Therapy Evaluation - Lois Carter, Physical Therapist - 06/28/2024 10:31 AM CDT PT received evaluation order and performed chart review. Pt unavailable for therapy evaluation thisAM, as they are off the floor in IR. Pt currently with bedrest with BSC privileges and awaiting OTSTLSO and upright xrays in brace, as well. Will continue to follow and re-attempt as appropriate andable. Thanks [phone] Addendum (5960): PT continue to hold for this PM, [...] - Name/Relation:son and daughter Comments: Patient independent SET UP AND CHARGER and drives. Plan for IV abx x 6 weeks. Patient lives in [place]. CM will follow up with PT/OT recommendations. Possible TLSO brace. Patient Discharge Planning Goal: home with [facility] Patient will potentially discharge to a SNF/NH? [...] file. Prescription coverage: yes Preferred Pharmacy verified: [id number] - [place], [place] - [address] Insurance coverage verified: Payor: [employer] MEDICARE ADVANTAGE / Plan: [employer] PPO MCR /Product Type: PPO / Secondary Insurance:N/A Medicaid Status: spend down Has VA Benefits: no Employment Status: retired and disabled DOES NOT receive Disability Income. PCP verified as: Adina Armijo MD with [facility] in [facility] Patient has not had a stay at an acute care hospital in the last 30 days. Recent Falls?: Last Known Fall: No falls Plan for transportation at discharge: private vehicle, EMS Care Management contact information provided. Care Management will continue to follow and assist asneeded. Portia Lynne RN, BSN Computer Systems Engineer [id number] Problem: Discharge Planning Goal: Identify discharge needs [...] and re-attempt as medically appropriate. Thank you. [id number] * Therapy Evaluation - Amee Langston, Physical Therapist - 06/27/2024 7:54 AM CDT PT orders received and chart reviewed. Unable to complete orders due to patient is currently on bedrest orders. Will continue to follow. Amee PT [id number] * Treatment Plan - Brie Vazquez RT - 06/27/2024 3:25 AM CDT Images from the original note were not included. ST IMS Medication and Flush Protocol- CT and MRI Procedures [facility] Approved by: [facility]-Medical Executive Committee Approval Date: 03/01/2024 ORDERS ARE [...] (Omnipaque) 240mg/ml oral solution age appropriate guidelines [place] Administer 45mL of diluted Iohexol oral solution, [...] than 55kg and confirm dose with radiologist. [place] to 15 years old Administer 2.2mL/kg (to [...] number of NSF cases: Gadodiamide (Omniscan?? - Enikos) Gadopentetate dimeglumine (Magnevist?? - [employer]) Gadoversetamide (OptiMARK?? - Guerbet) Group II: Agents associated with few, if any, unconfounded cases of NSF: Gadobenate dimeglumine (MultiHance?? - [employer]) Gadobutrol (Gadavist?? - [employer]; Gadovist in many countries) Gadoteric acid (Dotarem?? - Guerbet, Clariscan - Enikos) Gadoteridol (ProHance?? - [employer]) Group III: Agents for which data remains limited regarding NSF risk, but for which few, if any unconfounded cases of NSF have been reported: Gadoxetate disodium (Eovist - [employer]; Primovist in many countries) documented in this encounter Plan of Treatment Upcoming Encounters Date Type Department Care Team (Late st Contact Info) Description 10/04/2024 10:00 AM BUSINESS PROCESS ASSOCIATE Office Visit [facility] Neurosurgery - [facility] [address] [place] [address] Harris Fischer MD [address] [phone] Scheduled Orders Name Type Priority Associated Diagnoses [...] disease. ?? DICTATION LOCATION: Location 1 - [facility] Narrative 07/09/2024 3:30 PM CDT XR CHEST [...] IMPRESSION: No active disease. DICTATION LOCATION: Location [address] [place] [address] Sydnie Sequeira MD DIAGNOSTIC IMAGING O RDERABLES * (ABNORMAL) POC GLUCOSE (07/07/2024 9:25 PM CDT) GLUCOSE POC 127(H) 74 - 99 mg/dL 07/07/2024 9:25 PM CDT [facility] - [facility] SPECIMEN SOURCE, GLUCOSE POC Whole Blood 07/07/2024 9:25 PM CDT [facility] COMMENT, GLU POC Notified RN/ 07/07/2024 9:25 PM CDT [facility] Blood, whole 07/07/2024 9:25 PM CDT 07/07/2024 9:33 PM CDT Sydnie Sequeira MD POINT OF CARE TESTRYDER [place] [facility] CLIA# [id number] [address] [place] [address] * (ABNORMAL) POC GLUCOSE (07/07/2024 5:10 PM CDT) GLUCOSE POC 117(H) 74 - 99 mg/dL 07/07/2024 5:10 PM CDT [facility] LABORATORY SERVICES - [facility] SPECIMEN SOURCE, GLUCOSE POC Whole Blood 07/07/2024 5:10 PM CDT [facility] Blood, whole 07/07/2024 5:10 PM CDT 07/07/2024 5:19 PM CDT Sydnie Sequeira MD POINT OF CARE TESTRYDER [place] Performing Organization Address [facility]/ZIP Co de Phone Number [facility] [employer] [facility] CLIA# [id number] [address] [place] [address] * POC GLUCOSE (07/07/2024 12:26 PM CDT) GLUCOSE POC 89 74 - 99 mg/dL 07/07/2024 12:26 PM CDT [facility] SERVICES - [facility] SPECIMEN SOURCE, GLUCOSE POC Whole Blood 07/07/2024 12:26 PM CDT [facility] - [facility] COMMENT, GLU POC Notified RN/MD 07/07/2024 12:26 PM CDT [facility] - [facility] Blood, whole 07/07/2024 12:2 6 PM CDT 07/07/2024 12:34 PM CDT Sydnie Sequeira MD POINT OF CARE TESTRYDER [place] [facility]# [id number] [address] [place] [address] * POC GLUCOSE (07/07/2024 7:39 AM CDT) [facility] GLUCOSE POC 94 74 - 99 mg/dL 07/07/2024 7:39 AM CDT [facility] SPECIMEN SOURCE, GLUCOSE POC Whole Blood 07/07/2024 7:39 AM CDT [employer] [facility] LABORATORY SERVICES - [facility] COMMENT, GLU POC Notified RN/MD 07/07/2024 7:39 AM CDT [facility] LABORATORY SERVICES - [facility] Blood, whole 07/07/2024 7:39 AM CDT 07/07/2024 7:52 AM CDT Sydnie Sequeira MD POINT OF CARE TESTIN G [facility] [employer] SERVICES [facility]# [id number] [address] [place] [address] * (ABNORMAL) BASIC METABOLIC PANEL (07/07/2024 5:10 AM CDT) [facility] SODIUM 142 136 - 145 mmol/L 07/07/2024 5:54 AM CDT [facility] LABORATORY SERVICES [facility] POTASSIUM 4.1 3.5 - 5.0 mmol/L 07/07/2024 5:54 AM T [employer] [facility] LABORATORY SERVICES [facility] CHLORIDE 105 98 - 107 mmol/L 07/07/2024 5:54 AM CDT [facility] CO2 30(H) 22 - 29 mmol/L 07/07/2024 5:54 AM CDT [facility] LABORATORY SERVICES [facility] CALCIUM 9.2 8.6 - 10.2 mg/dL 07/07/2024 5:54 AM CDT [facility] [facility] LABORATORY SERVICES [facility] BUN 15 8 - 23 mg/dL 07/07/2024 5:54 AM CDT [facility]ORAT[facility] SERVICES [facility] CREATININE 0.67 0.51 - 0.95 mg/dL 07/07/2024 5:54 AM [facility] GLU[facility]SE 111(H) 74 - 99 mg/dL 07/07/2024 5:54 AM [facility] GFR >60 >=60 mL/min/1.7 3 sq meter 07/07/2024 5:54 AM [facility] Comment:eGFR calculated with 2020 CKD-EPI equation. Vegetarian diet, extremely high or low muscle mass, and may affect results. Cystatin C with Glomerular Filtration Rate is a suitable alternative for these patients. ANION GAP 7(L) 8 - 16 mmol/L 07/07/2024 5:54 AM [facility] [employer] [facility] Blood Venipuncture / Unknown 07/07/2024 5:10 AM CDT 07/07/2024 5:15 AM CDT Sydnie Sequeira MD CHEMISTRY ORDERABLES [facility] [employer] [facility]# [id number] [address] [place] [address] * (ABNORMAL) CBC WITH DIFFERENTIAL (07/07/2024 5:10 AM CDT) WBC 7.0 4.0 - 9.8 K/uL 07/07/2024 6:08 AM [facility] RBC 3.63(L) 3.90 - 4.90 M/uL 07/07/2024 6:08 AM [facility] LABORATORY [facility] HEMOGLOBIN 10.3(L) 11.8 - 14.8 g/dL 07/07/2024 6:08 AM [facility] [employer] [facility] HEMATOCRIT 33.4(L) 35.5 - 44.0 % 07/07/2024 6:08 AM [facility] [employer] [facility] MCV 92.0 82.0 - 99.0 fL 07/07/2024 6:08 AM [facility] [employer] [facility] MCH 28.4 27.2 - 32.6 pg 07/07/2024 6:08 AM [facility] [employer] [facility] MCHC 30.8(L) 31.5 - 35.5 g/dL 07/07/2024 6:08 AM CDT [facility] LABORATORY SERVICES - . [facility] RDW 16.3(H) 11.5 - 14.5 % 07/07/2024 6:08 AM CDT [facility]AT[facility] SERVICES - . [facility] RDW-STDEV 54.8(H) 37.1 - 48.7 fL 07/07/2024 6:08 AM CDT [facility] - . [place] PLATELETS 215 140 - 350 K/uL 07/07/2024 6:08 AM CDT [facility] - . [place] MPV 9.9 9.3 - 12.4 fL 07/07/2024 6:08 AM CDT [facility] - . [place] NEUTROPHILS 54 % 07/07/2024 6:08 AM CDT [facility] - . [facility] LYMPHOCYTES 35 % 07/07/2024 6:08 AM CDT [facility] - . [place] MONOCYTES 8 % 07/07/2024 6:08 AM CDT [facility] - . [place] EOSINOPHILS 3 % 07/07/2024 6:08 AM CDT [facility] - . [place] BASOPHILS 0 % 07/07/2024 6:08 AM CDT [facility] - . [place] IMMATURE GRANULOCYTES 0 % 07/07/2024 6:08 AM Z Pl[employer] [facility] - . [place] NEUTROPHIL ABSOLUTE 3.76 1.90 - 7.00 K/uL 07/07/2024 6:08 AM CDT [facility] - . [facility] LYMPHOCYTE ABSOLUTE 2.42 0.70 - 4.50 K/uL 07/07/2024 6:08 AM CDT [facility] - . [place] MONOCYTE ABSOLUTE 0.56 0.10 - 1.30 K/uL 07/07/2024 6:08 AM CDT [facility] - [facility] [place] EOSINOPHIL ABSOLUTE 0.23 0.00 - 0.70 K/uL 07/07/2024 6:08 AM CDT [facility] - [facility] [place] BASOPHILS ABSOLUTE 0.03 0.00 - 0.20 K/uL 07/07/2024 6:08 AM CDT [facility] - . [place] IMMATURE GRANULOCYTES ABSOLUTE 0.02 0.00 - 0.03 K/uL 07/07/2024 6:08 AM CDT [facility] SERVICES [facility] Blood Venipuncture / Unknown 07/07/2024 5:10 AM CDT 07/07/2024 5:15 AM CDT Sydnie Sequeira MD HEMATOLOGY ORDERABLE S Performing Organization Address [facility]/ZIP Co de Phone Number [facility]# [id number] [address] [place] [address] * (ABNORMAL) POC GLUCOSE (07/06/2024 8:47 PM CDT) GLUCOSE POC 113(H) 74 - 99 mg/dL 07/06/2024 8:47 PM CDT [facility] LABORATORY [facility] SPECIMEN SOURCE, GLUCOSE POC Whole Blood 07/06/2024 8:47 PM CDT [facility] COMMENT, GLU POC Notified RN/MD 07/06/2024 8:47 PM CDT [facility] SERVICES [facility] Blood, whole 07/06/2024 8:47 PM CDT 07/06/2024 8:55 PM CDT Sydnie Sequeira MD POINT OF CARE TESTIN G Performing Organization Address [facility] Co de Phone Number [facility]# [id number] [address] [place] [address] * (ABNORMAL) POC GLUCOSE (07/06/2024 5:20 PM CDT) GLUCOSE POC 123(H) 74 - 99 mg/dL 07/06/2024 5:20 PM CDT [facility] LABORATORY [facility] SPECIMEN SOURCE, GLUCOSE POC Whole Blood 07/06/2024 5:20 PM CDT [facility]ORAT[facility] COMMENT, GLU POC Notified RN/MD 07/06/2024 5:20 PM CDT [facility]ORATORY SERVICES [facility] Blood, whole 07/06/2024 5:20 PM CDT 07/06/2024 5:27 PM CDT Sydnie Sequeira MD POINT OF CARE TESTIN G [facility] [employer] [facility] [id number] [address] [place] [address] * POC GLUCOSE (07/06/2024 9:10 AM CDT) GLUCOSE POC 91 74 - 99 mg/dL 07/06/2024 9:10 AM CDT [facility] LABORATORY [facility] SPECIMEN SOURCE, GLUCOSE POC Whole Blood 07/06/2024 9:10 AM CDT [facility] LABOR[facility] Blood, whole 07/06/2024 9:10 AM CDT 07/06/2024 9:21 AM CDT Sydnie Sequeira MD POINT OF CARE TESTRYDER Rani Performing Organization Address [facility] Co de Phone Number [facility] [employer] [facility] CLIA# [id number] [address] [place] [address] * (ABNORMAL) POC GLUCOSE (07/05/2024 9:43 PM CDT) GLUCOSE POC 114(H) 74 - 99 mg/dL 07/05/2024 9:43 PM CDT [facility] SPECIMEN SOURCE, GLUCOSE POC Whole Blood 07/05/2024 9:43 PM CDT [facility] Blood, whole 07/05/2024 9:43 PM CDT 07/05/2024 9:54 PM CDT Sydnie Sequeira MD POINT OF CARE TESTIN Rani Performing Organization Address City/[facility]/ZIP Co de Phone Number [facility] [employer] [facility] CLIA# [id number] [address] [place] [address] * (ABNORMAL) POC GLUCOSE (07/05/2024 4:48 PM CDT) GLUCOSE POC 114(H) 74 - 99 mg/dL 07/05/2024 4:48 PM CDT [facility] LABORATORY [facility] SPECIMEN SOURCE, GLUCOSE POC Whole Blood 07/05/2024 4:48 PM CDT [facility] LABORATORY [facility] Blood, whole 07/05/2024 4:48 PM CDT 07/05/2024 4:56 PM CDT Sydnie Seqeuira MD POINT OF CARE TESTIN G Performing Organization Address [facility]/ZIP Co de Phone Number [facility] CLIA# [id number] [address] [place] [address] * POC GLUCOSE (07/05/2024 12:38 PM CDT) GLUCOSE POC 99 74 - 99 mg/dL 07/05/2024 12:38 PM CDT [facility] LABORATORY [facility] SPECIMEN SOURCE, GLUCOSE POC Whole Blood 07/05/2024 12:38 PM CDT [facility] LABORATORY [facility] Blood, whole 07/05/2024 12:3 8 PM CDT 07/05/2024 12:52 PM CDT Sydnie Sequeira MD POINT OF CARE TESTRYDER G Performing Organization Address City/[facility]/ZIP Co de Phone Number [facility] CLIA# [id number] [address] [place] [address] * POC GLUCOSE (07/05/2024 7:52 AM CDT) GLUCOSE POC 96 74 - 99 mg/dL 07/05/2024 7:52 AM CDT [facility] LABORATORY [facility] SPECIMEN SOURCE, GLUCOSE POC Whole Blood 07/05/2024 7:52 AM CDT [facility] LABORATORY [facility] Blood, whole 07/05/2024 7:52 AM CDT 07/05/2024 8:01 AM CDT Sydnie Sequeira MD POINT OF CARE TESTIN G [facility] [employer] [facility] CLIA# [id number] [address] [place] [address] * (ABNORMAL) POC GLUCOSE (07/04/2024 4:57 PM CDT) GLUCOSE POC 111(H) 74 - 99 mg/dL 07/04/2024 4:57 PM CDT [facility]ORATORY SERVICES [facility] SPECIMEN SOURCE, GLUCOSE POC Whole Blood 07/04/2024 4:57 PM CDT [facility]AT[facility] SERVICES [facility] COMMENT, GLU POC Notified RN/MD 07/04/2024 4:57 PM CDT [facility] Blood, whole 07/04/2024 4:57 PM CDT 07/04/2024 5:05 PM CDT Sydnie Sequeira MD POINT OF CARE TESTRYDER Saravia Performing Organization Address [facility]/ZIP Co de Phone Number [facility] [employer] [facility] CLIA# [id number] [address] [place] [address] * (ABNORMAL) POC GLUCOSE (07/04/2024 11:38 AM CDT) GLUCOSE POC 109(H) 74 - 99 mg/dL 07/04/2024 11:38 AM CDT [facility]AT[facility] SERVICES [facility] SPECIMEN SOURCE, GLUCOSE POC Whole Blood 07/04/2024 11:38 AM CDT [facility] COMMENT, GLU POC Notified RN/MD 07/04/2024 11:38 AM CDT [facility] Blood, whole 07/04/2024 11:3 8 AM CDT 07/04/2024 11:45 AM CDT Sydnie Sequeira MD POINT OF CARE TESTRYDER [place] [facility] SERVICES [facility]# [id number] [address] [place] [address] * (ABNORMAL) POC GLUCOSE (07/04/2024 7:44 AM CDT) Pathologist [facility] GLUCOSE POC 102(H) 74 - 99 mg/dL 07/04/2024 7:44 AM CDT [facility] LABORATORY SERVICES - [facility] SPECIMEN SOURCE, GLUCOSE POC Whole Blood 07/04/2024 7:44 AM CDT [facility] - [facility] COMMENT, GLU POC Notified RN/MD 07/04/2024 7:44 AM CDT [facility] - [facility] Blood, whole 07/04/2024 7:44 AM CDT 07/04/2024 7:53 AM CDT Sydnie Sqeueira MD POINT OF CARE TESTIN G [facility] [employer] [facility]# [id number] [address] [place] [address] * (ABNORMAL) BASIC METABOLIC PANEL (07/04/2024 6:41 AM CDT) [facility] SODIUM 143 136 - 145 mmol/L 07/04/2024 7:28 AM T [facility]AT[facility] SERVICES [facility] POTASSIUM 4.2 3.5 - 5.0 mmol/L 07/04/2024 7:28 AM T [facility] CHLORIDE 107 98 - 107 mmol/L 07/04/2024 7:28 AM T [facility] - [facility] CO2 30(H) 22 - 29 mmol/L 07/04/2024 7:28 AM T [facility] - [facility] CALCIUM 9.2 8.6 - 10.2 mg/dL 07/04/2024 7:28 AM T [facility] - [facility] BUN 15 8 - 23 mg/dL 07/04/2024 7:28 AM T [facility] - [facility] CREATININE 0.68 0.51 - 0.95 mg/dL 07/04/2024 7:28 AM [facility] LABORATORY SERVICES [facility] GLUCOSE 101(H) 74 - 99 mg/dL 07/04/2024 7:28 AM T [facility] LABORATORY [facility] GFR >60 >=60 mL/min/1.7 3 sq meter 07/04/2024 7:28 AM [facility] LABORATORY [facility] Comment:eGFR calculated with 2020 CKD-EPI equation. Vegetarian diet, extremely high or low muscle mass, and may affect results. Cystatin C with Glomerular Filtration Rate is a suitable alternative for these patients. ANION GAP 6(L) 8 - 16 mmol/L 07/04/2024 7:28 AM [facility] LABORATORY [facility] Blood Venipuncture / Unknown 07/04/2024 6:41 AM CDT 07/04/2024 6:51 AM CDT Sydnie Sequeira MD CHEMISTRY ORDERABLES [facility] [employer] [facility] CLIA# [id number] [address] [place] [address] * (ABNORMAL) CBC WITH DIFFERENTIAL (07/04/2024 6:41 AM CDT) WBC 7.0 4.0 - 9.8 K/uL 07/04/2024 7:34 AM [facility] LABORATORY [facility] RBC 3.79(L) 3.90 - 4.90 M/uL 07/04/2024 7:34 AM [facility] LABORATORY [facility] HEMOGLOBIN 10.9(L) 11.8 - 14.8 g/dL 07/04/2024 7:34 AM T [facility] LABORATORY [facility] HEMATOCRIT 35.2(L) 35.5 - 44.0 % 07/04/2024 7:34 AM T [facility] [employer] [facility] MCV 92.9 82.0 - 99.0 fL 07/04/2024 7:34 AM T [facility] [employer] [facility] MCH 28.8 27.2 - 32.6 pg 07/04/2024 7:34 AM T [facility] [employer] [facility] MCHC 31.0(L) 31.5 - 35.5 g/dL 07/04/2024 7:34 AM CDT [facility]ATORY SERVICES - [facility] RDW 16.4(H) 11.5 - 14.5 % 07/04/2024 7:34 AM CDT [employer] LABORATORY SERVICES - [facility] RDW-STDEV 56.4(H) 37.1 - 48.7 fL 07/04/2024 7:34 AM CDT [facility] - [facility] PLATELETS 248 140 - 350 K/uL 07/04/2024 7:34 AM CDT [facility] - [facility] MPV 10.0 9.3 - 12.4 fL 07/04/2024 7:34 AM CDT [facility] - [facility] NEUTROPHILS 57 % 07/04/2024 7:34 AM CDT [facility] LYMPHOCYTES 30 % 07/04/2024 7:34 AM CDT [facility] - [facility] MONOCYTES 9 % 07/04/2024 7:34 AM CDT [facility] EOSINOPHILS 4 % 07/04/2024 7:34 AM CDT [facility] BASOPHILS 0 % 07/04/2024 7:34 AM CDT [facility] - [facility] IMMATURE GRANULOCYTES 0 % 07/04/2024 7:34 AM CDT [facility] - [facility] NEUTROPHIL ABSOLUTE 4.01 1.90 - 7.00 K/uL 07/04/2024 7:34 AM CDT [facility] - [facility] LYMPHOCYTE ABSOLUTE 2.08 0.70 - 4.50 K/uL 07/04/2024 7:34 AM CDT [facility] - [facility] MONOCYTE ABSOLUTE 0.60 0.10 - 1.30 K/uL 07/04/2024 7:34 AM CDT [facility] - [facility] EOSINOPHIL ABSOLUTE 0.28 0.00 - 0.70 K/uL 07/04/2024 7:34 AM CDT [facility] - [facility] BASOPHILS ABSOLUTE 0.03 0.00 - 0.20 K/uL 07/04/2024 7:34 AM CDT [facility] - [facility] IMMATURE GRANULOCYTES ABSOLUTE 0.01 0.00 - 0.03 K/uL 07/04/2024 7:34 AM CDT [facility] LABORATORY [facility] Blood Venipuncture / Unknown 07/04/2024 6:41 AM CDT 07/04/2024 6:51 AM CDT Sydnie Sequeira MD [id number] [address] [place] [address] * (ABNORMAL) POC GLUCOSE (07/03/2024 10:51 PM CDT) GLUCOSE POC 116(H) 74 - 99 mg/dL 07/03/2024 10:51 PM CDT [facility] LABORATORY [facility] SPECIMEN SOURCE, GLUCOSE POC Whole Blood 07/03/2024 10:51 PM CDT [facility] LABORATORY [facility] Blood, whole 07/03/2024 10:5 1 PM CDT 07/03/2024 11:12 PM CDT Sydnie Sequeira MD POINT OF CARE TESTIN G Performing Organization Address City/[facility]/ZIP Co de Phone Number [facility] CLIA# [id number] [address] [place] [address] * (ABNORMAL) POC GLUCOSE (07/03/2024 5:22 PM CDT) GLUCOSE POC 110(H) 74 - 99 mg/dL 07/03/2024 5:22 PM CDT [facility] LABORATORY [facility] SPECIMEN SOURCE, GLUCOSE POC Whole Blood 07/03/2024 5:22 PM CDT [facility] LABORATORY [facility] COMMENT, GLU POC Notified RN/MD 07/03/2024 5:22 PM CDT [facility] LABORATORY [facility] Blood, whole 07/03/2024 5:22 PM CDT 07/03/2024 5:31 PM CDT Sydnie Sequeira MD POINT OF CARE TESTIN G Performing Organization Address City/[facility]/ZIP Co de Phone Number [facility] [employer] [facility] CLIA# [id number] [address] [place] [address] * POC GLUCOSE (07/03/2024 1:41 PM CDT) GLUCOSE POC 78 74 - 99 mg/dL 07/03/2024 1:41 PM CDT [facility] SPECIMEN SOURCE, GLUCOSE POC Whole Blood 07/03/2024 1:41 PM CDT [facility] COMMENT, GLU POC Notified RN/MD 07/03/2024 1:41 PM CDT [facility] Blood, whole 07/03/2024 1:41 PM CDT 07/03/2024 1:49 PM CDT Sydnie Sequeira MD POINT OF CARE TESTIN Rani Performing Organization Address [facility]/ZIP Co de Phone Number [facility] [employer] [facility] CLIA# [id number] [address] [place] [address] * (ABNORMAL) POC GLUCOSE (07/03/2024 8:40 AM CDT) GLUCOSE POC 102(H) 74 - 99 mg/dL 07/03/2024 8:40 AM CDT [facility] LABORATORY SERVICES [facility] SPECIMEN SOURCE, GLUCOSE POC Whole Blood 07/03/2024 8:40 AM CDT [facility] LABORATORY SERVICES [facility] COMMENT, GLU POC Notified RN/MD 07/03/2024 8:40 AM CDT [facility] Blood, whole 07/03/2024 8:40 AM CDT 07/03/2024 8:49 AM CDT Sydnie Sequeira MD POINT OF CARE TESTIN G [facility] LABORATORY [facility] CLIA# [id number] [address] [place] [address] * (ABNORMAL) POC GLUCOSE (07/02/2024 10:39 PM CDT) GLUCOSE POC 155(H) 74 - 99 mg/dL 07/02/2024 10:39 PM CDT [facility] LABORATORY SERVICES - [facility] SPECIMEN SOURCE, GLUCOSE POC Whole Blood 07/02/2024 10:39 PM CDT [facility] LABORATORY SERVICES - [facility] Blood, whole 07/02/2024 10:3 9 PM CDT 07/02/2024 10:47 PM CDT Mia Fowler MD POINT OF CARE TESTIN G Performing Organization Address [facility]/State/ZIP Co de Phone Number [facility] LABORATORY [facility] CLIA# [id number] [address] [place] [address] * (ABNORMAL) POC GLUCOSE (07/02/2024 6:36 PM CDT) GLUCOSE POC 132(H) 74 - 99 mg/dL 07/02/2024 6:36 PM CDT [facility] LABORATORY [facility] SPECIMEN SOURCE, GLUCOSE POC Whole Blood 07/02/2024 6:36 PM CDT [facility] LABORATORY [facility] Blood, whole 07/02/2024 6:36 PM CDT 07/02/2024 6:45 PM CDT Mia Fowler MD POINT OF CARE TESTRYDER G [facility] [employer] [facility] CLIA# [id number] [address] [place] [address] * (ABNORMAL) POC GLUCOSE (07/02/2024 1:41 PM CDT) GLUCOSE POC 102(H) 74 - 99 mg/dL 07/02/2024 1:41 PM CDT [facility] LABORATORY SERVICES [facility] SPECIMEN SOURCE, GLUCOSE POC Whole Blood 07/02/2024 1:41 PM CDT [facility] Blood, whole 07/02/2024 1:41 PM CDT 07/02/2024 1:53 PM CDT Mia Fowler MD POINT OF CARE TESTIN G Performing Organization Address [facility] Co de Phone Number [facility]# [id number] [address] [place] [address] * MRSA PCR RAPID SCREEN (07/02/2024 9:50 AM CDT) MRSA PCR RESULT MRSA not detected MRSA not detected 07/02/2024 11:21 AM CDT [facility] Surveillance ANTERIOR NARES SWAB / Unknown Collection / Unknown 07/02/2024 9:50 AM CDT 07/02/2024 9:56 AM CDT Narrative [facility] - 07/02/2024 11:21 AM CDT This assay is used to detect Methicillin-Resistant S. aureus (MRSA) colonization of the nares. PLEASE NOTE: ??This test has not been approved to monitor effectiveness of MRSA decolonization. Residual DNA may temporarily be present after successful decolonization. This test was performed using an FDA approved screening methodology. Indio Oliver MD MICROBIOLOGY - [facility] AL ORDERABLES Performing Organization Address [facility] Co de Phone Number [facility]# [id number] [address] [place] [address] * (ABNORMAL) VANCOMYCIN LEVEL TROUGH (07/02/2024 9:48 AM CDT) Pathologist [facility] VANCOMYCIN, TROUGH 18.7(H) 10.0 - 17.0 ug/mL 07/02/2024 10:41 AM CDT [facility] Blood Collection / Unknown 07/02/2024 9:48 AM CDT 07/02/2024 9:56 AM CDT Mia Fowler MD CHEMISTRY ORDERABLES Performing Organization Address [facility]/ZIP Co de Phone Number [facility]# [id number] [address] [place] [address] * IR VENOUS ACCESS (07/02/2024 8:56 AM CDT) Narrative 07/02/2024 8:56 AM CDT Order information only. ??Exam was auto-finalized. ?? Indio Oliver MD IR ORDERABLES * (ABNORMAL) POC GLUCOSE (07/02/2024 8:08 AM CDT) GLUCOSE POC 113(H) 74 - 99 mg/dL 07/02/2024 8:08 AM CDT [facility] LABORATORY [facility] SPECIMEN SOURCE, GLUCOSE POC Whole Blood 07/02/2024 8:08 AM CDT [facility] Blood, whole 07/02/2024 8:08 AM CDT 07/02/2024 9:03 AM CDT Mia Fowler MD POINT OF CARE TESTIN G Performing Organization Address [facility] Co de Phone Number [facility] [employer] [facility]# [id number] [address] [place] [address] * (ABNORMAL) POC GLUCOSE (07/01/2024 11:37 PM CDT) GLUCOSE POC 124(H) 74 - 99 mg/dL 07/01/2024 11:37 PM CDT [facility] LABORATORY [facility] SPECIMEN SOURCE, GLUCOSE POC Whole Blood 07/01/2024 11:37 PM CDT [facility] LABORATORY [facility] Blood, whole 07/01/2024 11:3 7 PM CDT 07/01/2024 11:44 PM CDT Mia Fowler MD POINT OF CARE TESTIN G [facility] LABORATORY [facility] CLIA# [id number] [address] [place] [address] * (ABNORMAL) POC GLUCOSE (07/01/2024 7:24 PM CDT) GLUCOSE POC 129(H) 74 - 99 mg/dL 07/01/2024 7:24 PM CDT [facility] LABORATORY SERVICES [facility] SPECIMEN SOURCE, GLUCOSE POC Whole Blood 07/01/2024 7:24 PM CDT [facility] LABORATORY SERVICES [facility] Blood, whole 07/01/2024 7:24 PM CDT 07/01/2024 7:48 PM CDT Mia Fowler MD POINT OF CARE TESTRYDER Rani Performing Organization Address [facility]/ZIP Co de Phone Number [facility] LABORATORY [facility] CLIA# [id number] [address] [place] [address] * POC GLUCOSE (07/01/2024 12:25 PM CDT) GLUCOSE POC 87 74 - 99 mg/dL 07/01/2024 12:25 PM CDT [facility] LABORATORY SERVICES - [facility] SPECIMEN SOURCE, GLUCOSE POC Whole Blood 07/01/2024 12:25 PM CDT [facility] LABORATORY SERVICES [facility] COMMENT, GLU POC Notified RN/MD 07/01/2024 12:25 PM CDT [facility] LABORATORY SERVICES [facility] Blood, whole 07/01/2024 12:2 5 PM CDT 07/01/2024 12:36 PM CDT Mia Fowler MD POINT OF CARE TESTIN Rani [facility] LABORATORY [facility] CLIA# [id number] [address] [place] [address] * (ABNORMAL) POC GLUCOSE (07/01/2024 7:50 AM CDT) GLUCOSE POC 100(H) 74 - 99 mg/dL 07/01/2024 7:50 AM CDT [facility] LABORATORY SERVICES - [facility] SPECIMEN SOURCE, GLUCOSE POC Whole Blood 07/01/2024 7:50 AM CDT [facility] LABORATORY SERVICES [facility] COMMENT, GLU POC Notified RN/MD 07/01/2024 7:50 AM CDT [facility] LABORATORY SERVICES - [facility] Blood, whole 07/01/2024 7:50 AM CDT 07/01/2024 8:07 AM CDT Mia Fowler MD POINT OF CARE TESTRYDER Saravia [facility] LABORATORY [facility] CLIA# [id number] [address] [place] [address] * (ABNORMAL) POC GLUCOSE (06/30/2024 8:22 PM CDT) GLUCOSE POC 105(H) 74 - 99 mg/dL 06/30/2024 8:22 PM CDT [facility] LABORATORY SERVICES - [facility] SPECIMEN SOURCE, GLUCOSE POC Whole Blood 06/30/2024 8:22 PM CDT [facility] LABORATORY [facility] Blood, whole 06/30/2024 8:22 PM CDT 06/30/2024 10:04 PM CDT Mia Fowler MD POINT OF CARE TESTRYDER Saravia [facility] [employer] [facility] CLIA# [id number] [address] [place] [address] * POC GLUCOSE (06/30/2024 1:23 PM CDT) GLUCOSE POC 99 74 - 99 mg/dL 06/30/2024 1:23 PM CDT [facility] LABORATORY SERVICES [facility] SPECIMEN SOURCE, GLUCOSE POC Whole Blood 06/30/2024 1:23 PM CDT [facility] LABORATORY [facility] Blood, whole 06/30/2024 1:23 PM CDT 06/30/2024 1:37 PM CDT Mia Fowler MD POINT OF CARE TESTIN G [facility] CLIA# [id number] [address] [place] [address] * (ABNORMAL) VANCOMYCIN LEVEL TROUGH (06/30/2024 12:39 PM CDT) VANCOMYCIN, TROUGH 22.9(H) 10.0 - 17.0 ug/mL 06/30/2024 1:13 PM CDT [facility] LABORATORY [facility] Blood Venipuncture / Unknown 06/30/2024 12:39 PM CDT 06/30/2024 12:44 PM CDT Indio Oliver MD CHEMISTRY ORDERABLES Performing Organization Address [facility]/ZIP Co de Phone Number [facility] CLIA# [id number] [address] [place] [address] * POC GLUCOSE (06/30/2024 9:39 AM CDT) GLUCOSE POC 94 74 - 99 mg/dL 06/30/2024 9:39 AM CDT [facility] LABORATORY [facility] SPECIMEN SOURCE, GLUCOSE POC Whole Blood 06/30/2024 9:39 AM CDT [facility] LABORATORY [facility] COMMENT, GLU POC Notified RN/MD 06/30/2024 9:39 AM CDT [facility] LABORATORY [facility] Blood, whole 06/30/2024 9:39 AM CDT 06/30/2024 9:50 AM CDT Mia Fowler MD POINT OF CARE TESTIN G Performing Organization Address City/[facility]/ZIP Co de Phone Number [facility] [employer] [facility] CLIA# [id number] [address] [place] [address] * (ABNORMAL) POC GLUCOSE (06/29/2024 9:16 PM CDT) GLUCOSE POC 126(H) 74 - 99 mg/dL 06/29/2024 9:16 PM CDT [facility] LABORATORY [facility] SPECIMEN SOURCE, GLUCOSE POC Whole Blood 06/29/2024 9:16 PM CDT [facility] COMMENT, GLU POC Notified RN/MD 06/29/2024 9:16 PM CDT [facility] Blood, whole 06/29/2024 9:16 PM CDT 06/29/2024 9:25 PM CDT Mia Fowler MD POINT OF CARE TESTIN G [facility] [facility]# [id number] [address] [place] [address] * XR LUMBAR SPINE 2 OR 3 [...] - 145 mmol/L 06/29/2024 3:32 PM CDT [facility] - [facility] POTASSIUM 3.8 3.5 - 5.0 mmol/L 06/29/2024 3:32 PM CDT [facility] - . [facility] 106 98 - 107 mmol/L 06/29/2024 3:32 PM CDT [facility] - [facility] CO2 28 22 - 29 mmol/L 06/29/2024 3:32 PM CDT [facility] - [facility] CALCIUM 8.9 8.6 - 10.2 mg/dL 06/29/2024 3:32 PM CDT [facility] - [facility] BUN 12 8 - 23 mg/dL 06/29/2024 3:32 PM CDT [facility] - . [facility] CREATININE 0.88 0.51 - 0.95 mg/dL 06/29/2024 3:32 PM CDT [facility] - [facility] GLUCOSE 129(H) 74 - 99 mg/dL 06/29/2024 3:32 PM CDT [facility] GFR >60 >=60 mL/min/1.7 3 sq meter 06/29/2024 3:32 PM CDT [facility] Comment:eGFR calculated with 2020 CKD-EPI equation. Vegetarian diet, extremely high or low muscle mass, and may affect results. Cystatin C with Glomerular Filtration Rate is a suitable alternative for these patients. ANION GAP 7(L) 8 - 16 mmol/L 06/29/2024 3:32 PM CDT [facility] Blood Venipuncture / Unknown 06/29/2024 2:10 PM CDT 06/29/2024 2:30 PM CDT Kt Bruner MD CHEMISTRY ORDERABLES [facility] CLIA# [id number] [address] [place] [address] * (ABNORMAL) POC GLUCOSE (06/29/2024 12:31 PM CDT) Pathologist [facility] GLUCOSE POC 117(H) 74 - 99 mg/dL 06/29/2024 12:31 PM CDT [facility] SPECIMEN SOURCE, GLUCOSE POC Whole Blood 06/29/2024 12:31 PM CDT [facility] COMMENT, GLU POC Notified RN/ 06/29/2024 12:31 PM CDT [facility] Blood, whole 06/29/2024 12:3 1 PM CDT 06/29/2024 12:38 PM CDT Mia Fowler MD POINT OF CARE TESTIN G [facility] CLIA# [id number] [address] [place] [address] * (ABNORMAL) CBC WITH DIFFERENTIAL (06/29/2024 9:24 AM CDT) Pathologist [facility] Ill WBC 8.7 4.0 - 9.8 K/uL 06/29/2024 10:35 AM CDT [facility] RBC 3.90 3.90 - 4.90 M/uL 06/29/2024 10:35 AM CDT [facility] HEMOGLOBIN 11.6(L) 11.8 - 14.8 g/dL 06/29/2024 10:35 AM CDT [facility] HEMATOCRIT 39.6 35.5 - 44.0 % 06/29/2024 10:35 AM CDT [facility] MCV 101.5(H) 82.0 - 99.0 fL 06/29/2024 10:35 AM CDT [facility] MCH 29.7 27.2 - 32.6 pg 06/29/2024 10:35 AM CDT [facility] - . [facility] MCHC 29.3(L) 31.5 - 35.5 g/dL 06/29/2024 10:35 AM Z Plane[employer] [facility] RDW 16.5(H) 11.5 - 14.5 % 06/29/2024 10:35 AM CDT [facility] [place] RDW-STDEV 61.5(H) 37.1 - 48.7 fL 06/29/2024 10:35 AM [employer] [facility] PLATELETS 211 140 - 350 K/uL 06/29/2024 10:35 AM Z [employer] [facility] MPV 10.7 9.3 - 12.4 fL 06/29/2024 10:35 AM CDT [facility] NEUTROPHILS 66 % 06/29/2024 10:35 AM CDT [facility] LYMPHOCYTES 25 % 06/29/2024 10:35 AM CDT [facility] MONOCYTES 6 % 06/29/2024 10:35 AM CDT [facility] EOSINOPHILS 2 % 06/29/2024 10:35 AM CDT [facility] BASOPHILS 0 % 06/29/2024 10:35 AM CDT [facility] IMMATURE GRANULOCYTES 0 % 06/29/2024 10:35 AM CDT [facility] - [facility] NEUTROPHIL ABSOLUTE 5.74 1.90 - 7.00 K/uL 06/29/2024 10:35 AM CDT [facility] - [facility] LYMPHOCYTE ABSOLUTE 2.20 0.70 - 4.50 K/uL 06/29/2024 10:35 AM CDT [facility] SERVICES - . [facility] MONOCYTE ABSOLUTE 0.49 0.10 - 1.30 K/uL 06/29/2024 10:35 AM CDT [facility] - [facility] [place] EOSINOPHIL ABSOLUTE 0.19 0.00 - 0.70 K/uL 06/29/2024 10:35 AM CDT [facility] - [facility] [place] BASOPHILS ABSOLUTE 0.03 0.00 - 0.20 K/uL 06/29/2024 10:35 AM CDT [facility] - [facility] IMMATURE GRANULOCYTES ABSOLUTE 0.03 0.00 - 0.03 K/uL 06/29/2024 10:35 AM CDT [facility] LABORATORY [facility] Blood Venipuncture / Unknown 06/29/2024 9:24 AM CDT 06/29/2024 9:34 AM CDT Kt Bruner MD HEMATOLOGY ORDERABLE S [facility]# [id number] [address] [place] [address] * (ABNORMAL) POC GLUCOSE (06/29/2024 8:03 AM CDT) GLUCOSE POC 106(H) 74 - 99 mg/dL 06/29/2024 8:03 AM CDT [facility] LABORATORY [facility] SPECIMEN SOURCE, GLUCOSE POC Whole Blood 06/29/2024 8:03 AM CDT [facility] [employer] [facility] Blood, whole 06/29/2024 8:03 AM CDT 06/29/2024 8:11 AM CDT Mia Fowler MD POINT OF CARE TESTIN G [id number] [address] [place] [address] * (ABNORMAL) POC GLUCOSE (06/28/2024 9:16 PM CDT) GLUCOSE POC 142(H) 74 - 99 mg/dL 06/28/2024 9:16 PM CDT [facility]ATORY [facility] SPECIMEN SOURCE, GLUCOSE POC Whole Blood 06/28/2024 9:16 PM CDT [facility] LABORATORY [facility] Blood, whole 06/28/2024 9:16 PM CDT 06/28/2024 9:29 PM CDT Kt Bruner MD POINT OF CARE TESTIN G Performing Organization Address [facility] Co de Phone Number [facility] [employer] [facility] CLIA# [id number] [address] [place] [address] * ANAEROBIC/AEROBIC CULTURE W GRAM STAIN (06/28/2024 11:21 AM CDT) CULTURE No aerobic or anaerobic growth 07/03/2024 10:19 AM CDT [facility]ORY [facility] GRAM STAIN No organisms observed 07/03/2024 10:19 AM CDT [facility] GRAM STAIN 1+ (Rare or Occasional) Polymorphonuclear WBC 07/03/2024 10:19 AM CDT [facility]OR[facility]ORY [facility] Tissue (Vertebral body) Collection / Unknown 06/28/2024 11:21 AM CDT 06/28/2024 11:47 AM CDT Simba Song MD MICROBIOLOGY - GENER AL ORDERABLES Performing Organization Address [facility]/ZIP Co de Phone Number [id number] [address] [place] [address] * PATHOLOGY (06/28/2024 11:21 AM CDT) CASE REPORT Surgical Pathology Report ? Case: [id number] ? Authorizing Provider: ??Simba Song MD ? Collected: ? 06/28/2024 11:21 AM ? Ordering Location: ? [facility] ?Received: ?06/28/2024 02:21 PM ? Orthopaedics ? Pathologist: ? Ye Osborne MD ? Specimen: ?Bone, Vertebral body, L4 ? 4 3:47 PM T [facility] FINAL DIAGNOSIS A. Bone, vertebral body, L4, biopsy - Fragments of viable bone with focally hypercellular marrow with trilineage hematopoiesis - No evidence of malignancy - No evidence of definitive osteomyelitis 4 3:47 PM CDT [facility] S DESCRIPTION Received in one container labeled Keegan Amaya and vertebral body L4 is a 0.6 x 0.3 cm cylindrical core of white-perez bone which is entirely submitted in cassette A1 following decalcification. Cassette(s) decalcified in decal ll at the bench. [facility] 3:47 PM [facility] MICROSCOPIC DESCRIPTION The slides are labeled [id number] and Keegan Amaya. This case was seen in consultation with Dr. Janeth Cox who concurs. 3:47 PM T [facility] CLINICAL INFORMATION No Dx found. 3:47 PM [facility] COMMENT Special stain, immunohistochemical, and/or in situ hybridization results are interpreted with controls that demonstrate appropriate staining reactions. Note on use of immunohistochemistry reagents and in situ hybridization probes: These tests were developed and their performance characteristics determined by [facility], Department of Laboratory Medicine. It has not [...] part or completely in the following laboratories: [facility], CLIA #[id number] [address] [place] [address] [facility], [place] #[id number] [address] [place] [address] [facility]/[place], [place] #[id number] [address] [place] [address] This report was created with the [employer] voice-activated dictation system. Inherent to this system is the possibility of syntax, grammar, punctuation and other errors that could impact the interpretation of the report. If there are interpretative questions about aspects of this report, please contact the performing pathologist. 3:47 PM [facility] Tissue ENTIRE BONE ORGAN / Unknown Collection / Unknown 06/28/2024 11:21 AM CDT 06/28/2024 2:21 PM CDT Simba Song MD PATHOLOGY/CYTOLOGY O RDERABLES [facility]ORATORY SERVICES [facility]# [id number] [address] [place] [address] * IR BIOPSY (06/28/2024 11:15 AM CDT) Anatomical Region Laterality Modality X-Ray Angiograph y 06/28/2024 11:1 7 AM CDT Impressions 06/28/2024 3:50 PM CDT IMPRESSION: Fluoroscopic guided biopsy of the L4 vertebral body. DICTATION LOCATION: Location 1, [facility] Narrative 06/28/2024 3:50 PM CDT FLUOROSCOPIC-GUIDED [...] L4 vertebral body. DICTATION LOCATION: Location 1, [facility] Indio Oliver MD IR ORDERABLES * POC GLUCOSE (06/28/2024 8:00 AM CDT) GLUCOSE POC 95 74 - 99 mg/dL 06/28/2024 8:00 AM CDT [facility] LABORATORY [facility] SPECIMEN SOURCE, GLUCOSE POC Whole Blood 06/28/2024 8:00 AM CDT [facility]ORY [facility] COMMENT, GLU POC Notified RN/ 06/28/2024 8:00 AM CDT [facility] Blood, whole 06/28/2024 8:00 AM CDT 06/28/2024 8:09 AM CDT Kt Bruner MD POINT OF CARE TESTIN G [facility]# [id number] 5 [facility] [place] [address] * (ABNORMAL) POC GLUCOSE (06/28/2024 4:15 AM CDT) GLUCOSE POC 109(H) 74 - 99 mg/dL 06/28/2024 4:15 AM CDT [facility]ORY SERVICES - [facility] SPECIMEN SOURCE, GLUCOSE POC Whole Blood 06/28/2024 4:15 AM CDT [facility] SERVICES - [facility] Blood, whole 06/28/2024 4:15 AM CDT 06/28/2024 4:26 AM CDT Kt Bruner MD POINT OF CARE TESTIN G Performing Organization Address City/[facility]/ZIP Co de Phone Number [facility] LABORATORY [facility] CLIA# [id number] [address] [place] [address] * (ABNORMAL) POC GLUCOSE (06/28/2024 12:04 AM CDT) GLUCOSE POC 109(H) 74 - 99 mg/dL 06/28/2024 12:04 AM CDT [facility] LABORATORY [facility] SPECIMEN SOURCE, GLUCOSE POC Whole Blood 06/28/2024 12:04 AM CDT [facility] LABORATORY [facility] Blood, whole 06/28/2024 12:0 4 AM CDT 06/28/2024 12:11 AM CDT Kt Bruner MD POINT OF CARE TESTIN G Performing Organization Address City/[facility]/ZIP Co de Phone Number [facility] LABORATORY [facility] CLIA# [id number] [address] [place] [address] * (ABNORMAL) POC GLUCOSE (06/27/2024 9:07 PM CDT) GLUCOSE POC 122(H) 74 - 99 mg/dL 06/27/2024 9:07 PM CDT [facility] SERVICES - [facility] SPECIMEN SOURCE, GLUCOSE POC Whole Blood 06/27/2024 9:07 PM CDT [facility] - [facility] Blood, whole 06/27/2024 9:07 PM CDT 06/27/2024 9:15 PM CDT Kt Bruner MD POINT OF CARE TESTIN G Performing Organization Address [facility]/ZIP Co de Phone Number [facility]# [id number] [address] [place] [address] * (ABNORMAL) POC GLUCOSE (06/27/2024 4:51 PM CDT) GLUCOSE POC 106(H) 74 - 99 mg/dL 06/27/2024 4:51 PM CDT [facility] LABOR[facility]ORY [facility] SPECIMEN SOURCE, GLUCOSE POC Whole Blood 06/27/2024 4:51 PM CDT [facility] COMMENT, GLU POC Notified RN/MD 06/27/2024 4:51 PM CDT [facility] LABOR[facility]ORY [facility] Blood, whole 06/27/2024 4:51 PM CDT 06/27/2024 5:01 PM CDT Kt Bruner MD POINT OF CARE TESTRYDER G Performing Organization Address [facility] Co de Phone Number [facility] [employer] [facility]# [id number] [address] [place] [address] * BLOOD CULTURE (06/27/2024 2:44 PM CDT) Pathologist [facility] BLOOD CULTURE No growth 07/02/2024 3:40 PM CDT [facility] LABORATORY [facility] Blood (Hand, right) Venipuncture / Unknown 06/27/2024 2:44 PM CDT 06/27/2024 2:51 PM CDT Daljit Bravo MD MICROBIOLOGY - GENERAL ORDERABLES Performing Organization Address [facility]/ZIP Co de Phone Number [facility] [employer] [facility] CLFL# [id number] [address] [place] [address] * PROTIME-INR (06/27/2024 2:32 PM CDT) Pathologist [facility] PROTIME 13.8 12.7 - 15.1 Seconds 06/27/2024 2:53 PM CDT [facility] LABORATORY [facility] INR 1.1 0.9 - 1.1 06/27/2024 2:53 PM CDT [facility] LABORATORY [facility] Blood Venipuncture / Unknown 06/27/2024 2:32 PM CDT 06/27/2024 2:40 PM CDT Narrative [facility] LABORATORY [facility] - 06/27/2024 2:53 PM CDT INR Therapeutic Range: Adult: ?? 2.0 - 3.0 for pulmonary embolism or prophylaxis against venous ?thrombosis or systemic embolization. 2.0 - 3.0 for patients with tissue heart valves. 2.5 - 3.5 for patients with mechanical heart valves or post [place]. Pediatric ??(12 years and under): 1.5 - 3.0 Although the target range in children is not well established, ?INR values of 1.5 - 3.0 are recommended for most patients. ?Higher values have been used in children with prosthetic ?cardiac valves and hereditary clotting disorders. [place] (<3 days) therapeutic ranges have not been established. Kt Bruner MD HEMATOLOGY ORDERABLE S [facility]# [id number] [address] [place] [address] * (ABNORMAL) COMPREHENSIVE METABOLIC PANEL (06/27/2024 2:31 PM CDT) [facility] SODIUM 141 136 - 145 mmol/L 06/27/2024 3:15 PM CDT [facility] LABORATORY [facility] POTASSIUM 3.8 3.5 - 5.0 mmol/L 06/27/2024 3:15 PM CDT [facility] LABORATORY [facility] CHLORIDE 105 98 - 107 mmol/L 06/27/2024 3:15 PM CDT [facility] LABORATORY SERVICES - [facility] CO2 28 22 - 29 mmol/L 06/27/2024 3:15 PM [facility] LABORATORY SERVICES - [facility] CALCIUM 9.5 8.6 - 10.2 mg/dL 06/27/2024 3:15 PM [facility] LABORATORY SERVICES - [facility] BUN 10 8 - 23 mg/dL 06/27/2024 3:15 PM [facility] LABORATORY SERVICES - . [facility] CREATININE 0.63 0.51 - 0.95 mg/dL 06/27/2024 3:15 PM [facility] LABORATORY SERVICES - . [facility] GLUCOSE 142(H) 74 - 99 mg/dL 06/27/2024 3:15 PM [facility] - . [facility] TOTAL PROTEIN 7.2 6.7 - 8.6 g/dL 06/27/2024 3:15 PM [facility] LABORATORY SERVICES - . [place] ALBUMIN 3.7 3.5 - 5.2 g/dL 06/27/2024 3:15 PM [facility] [employer] LABORATORY SERVICES - . [facility] BILIRUBIN TOTAL 0.4 0.2 - 1.1 mg/dL 06/27/2024 3:15 PM [facility] [employer] LABORATORY [facility] - . [facility] ALKALINE PHOSPHATASE 157(H) 35 - 104 U/L 06/27/2024 3:15 PM [facility] LABORATORY [facility] - . [facility] AST 18 <33 U/L 06/27/2024 3:15 PM [facility] - . [facility] ALT 10 <34 U/L 06/27/2024 3:15 PM [facility] - . [facility] GFR >60 >=60 mL/min/1.7 3 sq meter 06/27/2024 3:15 PM [facility] [employer] [facility] SERVICES - . [facility] Comment:eGFR calculated with 2020 CKD-EPI equation. Vegetarian diet, extremely high or low muscle mass, and may affect results. Cystatin C with Glomerular Filtration Rate is a suitable alternative for these patients. ANION GAP 8 8 - 16 mmol/L 06/27/2024 3:15 PM [facility] [employer] [facility]. [facility] Blood Venipuncture / Unknown 06/27/2024 2:31 PM CDT 06/27/2024 2:40 PM CDT Narrative [facility]ORY [facility] - 06/27/2024 3:15 PM CDT Samples containing indocyanine green cause interferences on Total and/or Direct Bilirubin and must not be measured. Kt Bruner MD CHEMISTRY ORDERABLES [facility] CLIA# [id number] [address] [facility] [place] [address] * (ABNORMAL) CBC WITH DIFFERENTIAL (06/27/2024 2:31 PM CDT) Pathologist [facility] WBC 7.6 4.0 - 9.8 K/uL 06/27/2024 2:45 PM CDT [facility] RBC 4.20 3.90 - 4.90 M/uL 06/27/2024 2:45 PM CDT [facility] SERVICES - . [place] HEMOGLOBIN 12.0 11.8 - 14.8 g/dL 06/27/2024 2:45 PM CDT [facility] - [facility] HEMATOCRIT 39.1 35.5 - 44.0 % 06/27/2024 2:45 PM CDT [facility] MCV 93.1 82.0 - 99.0 fL 06/27/2024 2:45 PM CDT [facility] LABORATORY SERVICES - [facility] MCH 28.6 27.2 - 32.6 pg 06/27/2024 2:45 PM CDT [facility] LABORATORY SERVICES - . [facility] MCHC 30.7(L) 31.5 - 35.5 g/dL 06/27/2024 2:45 PM CDT [facility] SERVICES - [facility] RDW 15.9(H) 11.5 - 14.5 % 06/27/2024 2:45 PM CDT [facility] LABORATORY SERVICES - [facility] RDW-STDEV 53.7(H) 37.1 - 48.7 fL 06/27/2024 2:45 PM CDT [facility]ORY SERVICES [facility] PLATELETS 274 140 - 350 K/uL 06/27/2024 2:45 PM CDT [facility] SERVICES [facility] MPV 10.0 9.3 - 12.4 fL 06/27/2024 2:45 PM CDT [facility] LABORATORY SERVICES - . [facility] NEUTROPHILS 71 % 06/27/2024 2:45 PM CDT [facility]ATORY SERVICES - . [place] LYMPHOCYTES 20 % 06/27/2024 2:45 PM CDT [facility]ORY SERVICES [facility] MONOCYTES 7 % 06/27/2024 2:45 PM CDT [facility] SERVICES [facility] EOSINOPHILS 1 % 06/27/2024 2:45 PM CDT [facility] LAB[facility]ATORY SERVICES - . [place] BASOPHILS 0 % 06/27/2024 2:45 PM CDT [facility] LABORATORY SERVICES - . [place] IMMATURE GRANULOCYTES 0 % 06/27/2024 2:45 PM CDT [facility] LABORATORY SERVICES - . [place] NEUTROPHIL ABSOLUTE 5.36 1.90 - 7.00 K/uL 06/27/2024 2:45 PM CDT [facility] LABORATORY SERVICES - . [facility] LYMPHOCYTE ABSOLUTE 1.54 0.70 - 4.50 K/uL 06/27/2024 2:45 PM CDT [facility] LABORATORY SERVICES - . [place] MONOCYTE ABSOLUTE 0.52 0.10 - 1.30 K/uL 06/27/2024 2:45 PM CDT [facility] LABORATORY SERVICES - . [place] EOSINOPHIL ABSOLUTE 0.09 0.00 - 0.70 K/uL 06/27/2024 2:45 PM CDT [facility] LABORATORY SERVICES [facility] BASOPHILS ABSOLUTE 0.03 0.00 - 0.20 K/uL 06/27/2024 2:45 PM CDT [facility] LABORATORY SERVICES - . [facility] IMMATURE GRANULOCYTES ABSOLUTE 0.03 0.00 - 0.03 K/uL 06/27/2024 2:45 PM CDT [facility] LABORATORY SERVICES - [facility] Blood Venipuncture / Unknown 06/27/2024 2:31 PM CDT 06/27/2024 2:40 PM CDT tK Bruner MD HEMATOLOGY ORDERABLE S [facility] LABORATORY SERVICES - [facility]# [id number] [address] [facility] [place] [address] * BLOOD CULTURE (06/27/2024 2:31 PM CDT) [facility] BLOOD CULTURE No growth 07/02/2024 3:40 PM CDT [facility] LABORATORY [facility] Blood (Arm, right) Venipuncture / Unknown 06/27/2024 2:31 PM CDT 06/27/2024 2:40 PM CDT Daljit Bravo MD MICROBIOLOGY - GENERAL ORDERABLES Performing Organization Address [facility]/State/ZIP Co de Phone Number [facility] CLIA# [id number] [address] [place] [address] * (ABNORMAL) C-REACTIVE PROTEIN (06/27/2024 2:31 PM CDT) [facility] CRP 33.8(H) <5.0 mg/L 06/27/2024 3:15 PM CDT [facility] Blood Venipuncture / Unknown 06/27/2024 2:31 PM CDT 06/27/2024 2:40 PM CDT Daljit Bravo MD CHEMISTRY OR DERABLES Performing Organization Address [facility]/ZIP Co de Phone Number [facility] CLIA# [id number] [address] [place] [address] * (ABNORMAL) SEDIMENTATION RATE (06/27/2024 2:31 PM CDT) [facility] ESR (SEDIMENTATION RATE) 42(H) <=30 mm/Hr 06/27/2024 2:52 PM CDT [facility] LABORATORY [facility] Blood Venipuncture / Unknown 06/27/2024 2:31 PM CDT 06/27/2024 2:40 PM CDT Daljit Bravo MD HEMATOLOGY O RDERABLES [facility] CLIA# [id number] [address] [place] [address] * PHOSPHORUS (06/27/2024 2:31 PM CDT) Pathologist [facility] PHOSPHORUS 3.5 2.5 - 4.5 mg/dL 06/27/2024 3:15 PM CDT [facility] LABORATORY [facility] Blood Venipuncture / Unknown 06/27/2024 2:31 PM CDT 06/27/2024 2:40 PM CDT Daljit Bravo MD CHEMISTRY OR DERABLES [facility]# [id number] [address] [place] [address] * MAGNESIUM LEVEL (06/27/2024 2:31 PM CDT) [facility] MAGNESIUM 2.2 1.6 - 2.4 mg/dL 06/27/2024 3:15 PM CDT [facility] LABORATORY [facility] Blood Venipuncture / Unknown 06/27/2024 2:31 PM CDT 06/27/2024 2:40 PM CDT Daljit Bravo MD CHEMISTRY OR DERABLES [facility]# [id number] [address] [place] [address] * POC GLUCOSE (06/27/2024 12:50 PM CDT) GLUCOSE POC 90 74 - 99 mg/dL 06/27/2024 12:50 PM CDT [facility] LABORATORY [facility] SPECIMEN SOURCE, GLUCOSE POC Whole Blood 06/27/2024 12:50 PM CDT [facility] LABORATORY [facility] COMMENT, GLU POC Notified RN/MD 06/27/2024 12:50 PM CDT [facility] LABORATORY [facility] Blood, whole 06/27/2024 12:5 0 PM CDT 06/27/2024 12:58 PM CDT Kt Bruner MD POINT OF CARE TESTIN G Performing Organization Address [facility] Co de Phone Number [facility] [id number] [address] [place] [address] * POC GLUCOSE (06/27/2024 8:18 AM CDT) [facility] GLUCOSE POC 95 74 - 99 mg/dL 06/27/2024 8:18 AM CDT [facility] SPECIMEN SOURCE, GLUCOSE POC Whole Blood 06/27/2024 8:18 AM CDT [facility] COMMENT, GLU POC Notified RN/MD 06/27/2024 8:18 AM CDT [facility] Blood, whole 06/27/2024 8:18 AM CDT 06/27/2024 8:27 AM CDT Kt Bruner MD POINT OF CARE FRANCHESKA Saravia Performing Organization Address City/[facility] Co de Phone Number [facility]# [phone] [address] [place] [address] * EKG 12-LEAD (06/27/2024 7:04 AM CDT) 06/27/2024 7:04 AM CDT Narrative INTERFACE SYSTEM - 06/27/2024 8:12 AM CDT ? [facility] ? [address] [place] [address] ? Test Date: ?2024-06-27 Pat Name: ? GLENDERLY WEST ? Department: ?? 100 ?Room: ? 2372 1 Gender: ? Female ? Professional Services Manager: ?? 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 Requested By: AISSATOU BERHANE L Order Number: [id number] ? Reading MD: ?? Deryk Arango ? Measurements Intervals ?[place] ? Rate: ? 77 ? P: ?55 IN: ? 171 ?QRS: ?-11 QRSD: ? 92 ? T: ?33 QT: ? 380 ? QTc: ?430 ? Interpretive Statements SINUS RHYTHM Electronically Signed On 06-27-2024 8:12:59 CDT by Neal Arango Procedure Note Neal Arango MD - 06/27/2024 [facility] [address] [facility] [place] [address] Test Date: 2024-06-27 Pat Name: KEEGAN AMAYA Department: 100 Room: [facility] Gender: Female Professional Services Manager: Geronimo : 1955 Requested By: AISSATOU Marino Order Number: [id number] Reading MD: Neal Arango Measurements Intervals [place] Rate: 77 P: 55 IN: 171 QRS: -11 QRSD: 92 T: 33 [...] noted as described. ?? DICTATION LOCATION: Location [address] [place] [address] Narrative 06/27/2024 8:19 AM CDT EXAM: MRI [...] narrowing noted as described. DICTATION LOCATION: Location [address] [place] [address] Daljit Bravo MD MR ORDERABLE S * (ABNORMAL) POC GLUCOSE (06/27/2024 1:09 AM CDT) GLUCOSE POC 112(H) 74 - 99 mg/dL 06/27/2024 1:09 AM CDT [facility] SPECIMEN SOURCE, GLUCOSE POC Whole Blood 06/27/2024 1:09 AM CDT [facility] COMMENT, GLU POC Notified RN/MD 06/27/2024 1:09 AM CDT [facility] Blood, whole 06/27/2024 1:09 AM CDT 06/27/2024 1:20 AM CDT Daljit Bravo MD POINT OF CAR E TESTING [facility] SPIKE# [id number] [address] [place] [address] documented in this encounter Visit Diagnoses Diagnosis [...] 40 mg Ab domen, Left Lower Quadrant gjcehxniyur-fomothsydpuh-rtarxbxbun (TRELEGY ELLIPTA) 100-62.5-25 mcg inhaler 1 Puff [...] 1630, Routine 1630 (Not Given - Provider: Aym Bedoya RN - Reason: Patient condition - [...] Until Discontinued, Routine 0600 (Refused - Provider: aDnielle Hernandez RN) 0600 (Refused - Provider: Selam [...] 1456, Routine 0201 (Given - Provider: Danielle Hernadnez RN) PRN Medication Order 07/08/2024 07/09/2024 07/10/2024 [...] Routine documented in this encounter Care Teams Building Performance Specialist Relationship Specialty Start Date End Date Tracy Olivares MD [address] [place] [address] PCP - General Internal Medicine 07/02/24 documented as of this encounter
--- OUTSIDE RECORDS SUMMARY | 2024-09-07 15:30 | XMS_ITS | Encounter Summary ---
Author Organization [facility] Address [address] [place] [address] Care Team Providers Care C Architect Name Role Phone Unavailable Primary Care Provider Unavailabl e Reason for Visit * Auth/Cert (Routine) Specialty Diagnoses / Procedures Referred By Contoziel iverson Referred To Contact Orthopedic Surgery Diagnoses lumbar discitis Geovanny Lanza, [address] [place] [address] [facility] [address] [place] [phone] Referral ID Status Reason Start Date Expiration Date Visits Re quested Visits Authorized [id number] 1 1 Encounter Details Date Type Department Care Team (Late st Contact Info) Description 06/28/2024 10:17 AM CDT Anesthesia Event [facility] Interventional Radiology [facility] [address] [place] [address] Gopal Cedeno MD [address] [place] [address] Anesthesia Record Procedure Summary Procedure [...] well controlled (-) pacemaker, valvular problems/murmurs, past CO, CAD, CABG/stent, dysrhythmias, angina, CHF, orthopnea, PND, [...] st Contact Info) Description 10/04/2024 10:00 AM SENIOR CONTRACTS ADMINISTRATOR Office Visit [facility] Neurosurgery - [facility] [address] [place] [address] Harris Fischer MD [address] [facility] [address] [place] [address] documented as of this encounter Procedures Procedure Name Priority Date/Time Associated Diagnosis Comments NV ANES INSERT ENDOTRACHEAL AIRWAY Routine 06/28/2024 10:35 AM CDT documented in this encounter Results * NV ANES INSERT ENDOTRACHEAL AIRWAY (06/28/2024 10:35 AM [...]
--- OUTSIDE RECORDS SUMMARY | 2024-09-07 15:30 | XMS_ITS | Encounter Summary ---
Author Organization [facility] Address [address] [place] [address] Care Team Providers Care Machine Chocolate Molder Name Role Phone Tracy Olivares MD Primary Care Provider [phone] Encounter Details Date Type Department Care Team (Latest Contact Info) Description 07/10/2024 10:00 AM CDT - 07/10/2024 11:59 PM CDT Hospital Encounter [facility] Emergency Medical Services [address] [address] Dylan Jackson MD [address] [place] [address] Ambulance, [facility] Discharge Disposition: Intermediate Care Facility Social History [...] st Contact Info) Description 10/04/2024 10:00 AM GEODUCK DIVER Office Visit [facility] Neuro[facility] - [facility] [address] [facility] [address] [place] [address] Harris Fischer MD [address] [facility] [address] [place] [address] documented as of this encounter Visit Diagnoses Not on filedocumented in this encounter Care Teams Machine Chocolate Molder Relationship Specialty Start Date End Date Tracy Olivares MD [address] [place] [address] PCP - General Internal Medicine 07/02/24 documented as of this encounter
--- OUTSIDE RECORDS SUMMARY | 2024-09-07 15:30 | XMS_ITS | Encounter Summary ---
Author Organization [facility] Address [address] [place] [address] Care Team Providers Care Youth Care Professional Name Role Phone Tracy Olivares MD Primary Care Provider Reason for Visit * Reason Onset Date Comments Question 08/13/2024 Encounter Details Date Type Department Care Team (Late st Contact Info) Description 08/13/2024 Telephone [facility] Neurosurgery - Medical [place] [address] [facility] [address] [facility] [place] [address] Harris Fischer MD [address] [facility] [address] [place] [address] Question Social History Tobacco Use [...] Dr. Oliver and gave the office number IFIED MASTER SAFE TECHNICIAN * Telephone Encounter - Romulo Saenz PA - 08/13/2024 9:52 AM CERTIFIED MASTER SAFE TECHNICIAN Called, no answer. LVM IFIED MASTER SAFE TECHNICIAN * Telephone Encounter - Jennifer Green - [...] her. Please advise and call pt back. IFIED MASTER SAFE TECHNICIAN documented in this encounter Plan of Treatment Upcoming Encounters Date Type Department Care Team (Late st Contact Info) Description 10/04/2024 10:00 AM CERTIFIED MASTER SAFE TECHNICIAN Office Visit [facility] Neurosurgery - [facility] [address] [facility] [address] [place] [address] Harris Fischer MD [address] [facility] [address] [place] [address] documented as of this encounter Visit Diagnoses Not on filedocumented in this encounter Care Teams Youth Care Professional Relationship Specialty Start Date End Date Tracy Olivares MD [address] [place] [address] PCP - General Internal Medicine 07/02/24 documented as of this encounter
--- OUTSIDE RECORDS SUMMARY | 2024-09-07 15:30 | XMS_ITS | Encounter Summary ---
Author Organization [facility] Address [address] [place] [address] Care Team Providers Care Certified Hyperbaric Technician Name Role Phone Tracy Olivares MD [...] st Contact Info) Description 10/04/2024 10:00 AM STEAM PAN SPONGER Office Visit [facility] Neurosurgery - Medical [place] [address] [facility] [address] [place] [address] Harris Fischer MD [address] [facility] [address] [place] [address] documented as of this encounter Visit Diagnoses Not on filedocumented in this encounter Care Teams Certified Hyperbaric Technician Relationship Specialty Start Date End Date Tracy Olivares MD [address] [place] [address] PCP - General Internal Medicine 07/02/24 documented as of this encounter
--- OUTSIDE RECORDS SUMMARY | 2024-09-07 15:30 | XMS_ITS | Encounter Summary ---
Author Organization [facility] Address [address] [place] [address] Care Team Providers Care Rn Post Partum Name Role Phone Tracy Olivares MD Primary Care Provider [phone] Encounter Details Date Type Department Care Team (Late st Contact Info) Description 08/15/2024 Abstract [facility] Neurosurgery - Medical [place] [address] [facility] [address] [place] [address] Harris Fischer MD [address] [facility] [address] [place] [address] Social History Tobacco Use Types [...] st Contact Info) Description 10/04/2024 10:00 AM CUSTOMER SERVICE ADVISOR Office Visit [facility] Neurosurgery - Medical [place] [address] [facility] [address] [place] [address] Harris Fischer MD [address] [facility] [address] [place] [address] documented as of this encounter Visit Diagnoses Not on filedocumented in this encounter Care Teams Rn Post Partum Relationship Specialty Start Date End Date Tracy Olivares MD [address] [place] [address] PCP - General Internal Medicine 07/02/24 documented as of this encounter
--- OUTSIDE RECORDS SUMMARY | 2024-09-07 15:30 | XMS_ITS | Encounter Summary ---
Author Organization [facility] Address [address] [facility] Attn: Epic Prelude ADT [place] [address] Care Team Providers Care Customer Solutions Representative Name Role Phone Unavailable Primary Care Provider [...] st Contact Info) Description 10/04/2024 10:00 AM MISSION COORDINATOR Office Visit [facility] Neurosurgery - Medical [place] [address] [facility] [address] [place] [address] Harris Fischer MD [address] [facility] [address] [place] [address] documented as of this encounter Visit Diagnoses Not on filedocumented in this encounter
--- OUTSIDE RECORDS SUMMARY | 2024-09-07 15:30 | XMS_ITS | Encounter Summary ---
Author Organization [facility] Address [address] [place] [address] Care Team Providers Care Supervisor Litharge Name Role Phone Tracy Olivares MD Primary Care Provider [phone] Reason for Visit * Reason Onset Date Comments TLSO Brace 07/11/2024 Encounter Details Date Type Department Care Team (Late st Contact Info) Description 07/11/2024 Telephone [facility] Neurosurgery - Medical [place] [address] [facility] [facility] [place] [address] Harris Fischer MD [address] [facility] [address] [place] [address] TLSO Brace Social History Tobacco [...] - 07/11/2024 1:57 PM CDT Suzy PT is project manager called and is asking if patient can wear another brace.She doesn't like the OTS TSLO brace. She would like a call back at [phone] documented in this encounter Plan of Treatment Upcoming Encounters Date Type Department Care Team (Late st Contact Info) Description 10/04/2024 10:00 AM ACCOUNT EXECUTIVE KEY ACCOUNTS Office Visit [facility] Neurosurgery - [facility] [address] [facility] [address] [place] [address] Harris Fischer MD [address] [facility] [address] [place] [address] documented as of this encounter Visit Diagnoses Not on filedocumented in this encounter Care Teams Supervisor Litharge Relationship Specialty Start Date End Date Tracy Olivares MD [address] [facility] [address] [place] [address] PCP - General Internal Medicine 07/02/24 documented as of this encounter
--- OUTSIDE RECORDS SUMMARY | 2024-09-07 15:30 | XMS_ITS | Referral Summary ---
Author Organization [facility] Building B Address [address] [place] [address] Care Team Providers Care Air Dispatcher Name Role Phone Omid Douglass MD Primary Care Provider [phone] Nathan Baig MD Unavailable [phone] Tracy Olivares MD Unavailable Encounters Date Type Department Care Team Description 07/30/2024 5:33 PM GOLD LETTERER - 07/31/2024 12:[address] [facility] Emergency [address] [id number] Rashi Ingram MD Volkerding, MD Urbano Nguyen Farhanaz, MD Elizondo, Daniel Elias, MD Complication associated with peripherally inserted central catheter (PICC), initial encounter (Primary Dx); Osteomyelitis of lumbar spine (HCC) Discharge Disposition: Discharge to home, home health skilled care 07/25/[address] [address] Jessica Gracia, ARACELIS 07/24/2024 7:40 PM GOLD LETTERER - 07/24/2024 8:10 PM GOLD LETTERER Emergency [address] [phone] Discharge Disposition: Left without being seen 07/24/2024 Telephone [facility] Medical [facility] Post Acute Care [address] [address] Ethel Feliciano MA SNF Outreach 07/23/2024 NH/SNF Visit [facility] Post Acute Care [address] [phone] Mary Trivedi NP Osteomyelitis of lumbar spine (HCC) (Primary Dx); Epidural abscess; 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 sciatica; Discitis of lumbar region 07/16/2024 NH/SNF Visit [facility] Post Acute Care [address] [phone] Mary Trivedi NP Osteomyelitis of lumbar spine (HCC) (Primary Dx); Epidural abscess; Discitis of lumbar region; 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 sciatica; Benign hypertension 07/16/2024 Orders Only [facility] [address] [place] [address] Genaro Jaramillo MD 07/11/2024 NH/SNF Visit [facility] Medical [facility] Post Acute Care [address] [phone] Genaro Jaramillo MD Osteomyelitis of lumbar spine (HCC) (Primary Dx); [...] obstructive pulmonary disease, unspecified COPD type (HCC) from Last 3 Months Allergies Active Allergy Reactions Criticality Noted Date Comments Celecoxib Itching Medium 02/22/2024 Propoxyphene Unknown 07/24/2012 Medications albuterol HFA (PROVENTIL HFA,VENTOLIN HFA,PROAIR HFA) 90 mcg/actuation inhaler Inhale 2 puffs every 6 (six) hours as needed 07/09/202 4 Active aspirin 81 mg enteric coated tablet Take 1 tablet (81 mg total) by mouth daily 4 Active atorvastatin (LIPITOR) 20 mg tablet Take 1 tablet (20 mg total) by mouth daily 4 Active cholecalciferol (VITAMIN D-3) 2000 unit capsule Take 1 capsule (2,000 Units total) by mouth daily 4 Active cyclobenzaprine (FLEXERIL) 10 mg tablet Take 1 tablet (10 mg total) by mouth 3 (three) times a day as needed 4 Active empagliflozin (JARDIANCE) 25 mg tablet Take 1 tablet (25 mg total) by mouth daily 4 Active famotidine (PEPCID) 20 mg tablet Take 1 tablet (20 mg total) by mouth 2 (two) times a day 4 Active fluticasone-ume clidin-vilanter (TRELEGY ELLIPTA) 200-62.5-25 mcg inhaler Inhale 1 puff daily 4 Active gabapentin (NEURONTIN) 300 mg capsule Take 1 capsule (300 mg total) by mouth 2 (two) times a day 4 Active melatonin tablet Take 1 tablet (3 mg total) by mouth nightly as needed [address] (PROTONIX) 40 mg EC tablet Take 1 tablet (40 mg total) by mouth daily Active polyethylene glycol (MIRALAX) 17 gram packet Take 1 packet (17 g total) by mouth daily as needed 4 Active cefepime (MAXIPIME) 2,000 mg/100 mL IVBP Infuse 100 mL (2,000 mg total) into a venous catheter every 12 (twelve) hours Active senna (SENOKOT) 8.6 mg tablet Take 1 tablet by mouth 2 (two) times a day as needed Active acetaminophen (TYLENOL) 500 mg tablet Take 1 tablet (500 mg total) by mouth every 6 (six) hours as needed for pain And 2 tabs BID 4 Active lidocaine (LIDODERM) 5 % Place 1 patch on the skin daily Remove & discard patch within 12 hours or as directed by . 60 patch 4 Active HYDROcodone-lazara taminophen (NORCO) 5-325 mg per tablet Take 1 tablet by mouth every 8 (eight) hours as needed for pain 30 tablet 4 08/22/20 24 Active Problems Problem Noted Date Diagnosed Date Displacement of peripherally inserted central catheter (PICC) ([facility] 07/31/2024 Diabetic polyneuropathy asso ciated with diabetes mellitus due to underlying condition ([facility]) 07/31/2024 Metabolic syndrome 07/31/2024 Hypercalcemia 07/31/2024 Transaminitis 07/31/2024 Complication associated with peripherally inserted central catheter (PICC), initial encounter 07/30/2024 Chronic obstructive pulmonary disease 07/14/2024 Assessment & Plan (07/14/2024 2:57 PM CDT): And asthma, both chronic. Continue albuterol 2 puffs q.6 hours p.r.n. wheezing. Asthma 06/27/2024 Benign hypertension 06/27/2024 Assessment & Plan (07/16/2024 1:40 PM GOLD LETTERER): BP stable. Previously on losartan 100mg, hydrochlorothiazide 12.5mg. Montior for need to restart. Assessment & Plan (07/14/2024 2:55 PM CDT): This is chronic and stable. Continue to monitor vital signs for trending. Epidural abscess 06/27/2024 Discitis of lumbar region 06/27/2024 HLD (hyperlipidemia) 06/27/2024 Assessment & Plan (07/14/2024 2:55 PM CDT): This is chronic and stable. Continue atorvastatin 20 mg a day Osteomyelitis of lumbar spine 06/27/2024 Assessment & Plan (07/23/2024 1:41 PM GOLD LETTERER): L4-L5 Osteomyelitis/discitis with epidural phlegmon. S/p IR biopsy on 06/28 - Path reveals no malignancy and no evidence of definitive osteomyelitis. Tissue cultures no growth. Blood cx 06/27 NGTD. No indication for neurosurgical intervention. Follow up with Dr. Fischer in 3 months. Needs fu with ID. Weekly labs to ID Dr. Olivares. Per ID, IV cefepime 2000mg every 12 hours for 6 weeks (~06/28 through 08/09). TLSO brace. Brace to be worn at all times when head of bed >30 degrees, when upright, out of bed, in chair or walking. Spinal Precautions. Pain controlled with PRN meds & Lidoderm patches. Assessment & Plan (07/16/2024 1:36 PM GOLD LETTERER): L4-L5 Osteomyelitis/discitis with epidural phlegmon. S/p IR [...] well controlled. Continue Tyl 1000mg BID, PRN [place] q8h, Increase Gabapentin to 300mg TID, Schedule Flexeril TID, & start Lidoderm patch. Assessment & Plan (07/14/2024 2:58 PM CDT): Subacute, currently stable. Continue cefepime 2 g IV every 12 hours, cyclobenzaprine 10 mg t.i.d. p.r.n. spasm, gabapentin and [place] as scripted. Consult physical and occupational therapy Peripheral neuropathy 06/27/2024 Assessment & Plan (07/14/2024 2:57 PM CDT): Continue gabapentin 300 mg p.o. b.i.d. Type 2 diabetes mellitus wit h hyperglycemia, without long-term current use of insulin 03/20/2024 Assessment & Plan (07/14/2024 2:56 PM CDT): Monitor follow up labs. Continue 81 mg aspirin and atorvastatin. Continue empagliflozin RLS (restless legs syndrome) 09/10/2021 Anxiety 01/05/2021 Cataract 01/05/2021 Current moderate episode of major depressive dis order 01/05/2021 Overview (07/11/2024): On lexapro and stable. Gastroesophageal reflux disease 01/05/2021 Assessment & Plan (07/14/2024 2:56 PM CDT): Continue omeprazole Glaucoma 01/05/2021 Hearing loss 01/05/2021 Obstructive sleep apnea syndrome 05/07/2020 Chronic low back pain with bilateral sciatica Assessment & Plan (07/16/2024 1:39 PM GOLD LETTERER): Increased, SEE ABOVE Social History Tobacco Use Types Packs/Day Years [...] on file Legal Sex Female 12:03 AM GOLD LETTERER Gender Identity Not on file Sexual Orientation Not on file Last Filed Vital Signs Vital Sign Reading Time Taken Comments Blood Pressure 135/79 07/31/2024 11:32 AM GOLD LETTERER Pulse 80 07/31/2024 11:32 AM GOLD LETTERER Temperature 36.8 ??C (98.2 ??F) 07/31/2024 1 1:32 AM GOLD LETTERER Respiratory Rate 18 07/31/2024 11:3 2 AM GOLD LETTERER Oxygen Saturation 100% 07/31/2024 11: 32 AM GOLD LETTERER Inhaled Oxygen Concentration - - Weight 125.8 kg (277 lb 6.4 oz) 024 11:31 PM GOLD LETTERER Height 167.6 cm (5' 6 ) 07/30/2024 11:3 1 PM GOLD LETTERER Body Mass Index 44.77 07/30/2024 11:31 PM GOLD LETTERER Plan of Treatment Not on file Procedures Procedure Name Priority Date/Time Associated Diagnosis Comments POCT GLUCOSE DEVICE Routine 07/31/2024 1 1:30 AM GOLD LETTERER POCT GLUCOSE DEVICE Routine 07/31/2024 7 :30 AM GOLD LETTERER POCT GLUCOSE DEVICE Routine 07/30/2024 1 1:38 PM GOLD LETTERER EGFR STAT 07/30/2024 9:24 PM GOLD LETTERER DIFFERENTIAL AUTO STAT 07/30/2024 9:2 4 PM GOLD LETTERER APTT STAT 07/30/2024 9:24 PM GOLD LETTERER PROTIME-INR STAT 07/30/2024 9:24 PM GOLD LETTERER COMPREHENSIVE METABOLIC PANEL STAT 07/30/2024 9:24 PM GOLD LETTERER CBC WITH AUTO DIFFERENTIAL STAT 07/30/2024 9:24 PM GOLD LETTERER XR CHEST 1 VIEW ED 07/30/2024 2:45 PM GOLD LETTERER EGFR Routine 07/23/2024 5:30 AM GOLD LETTERER CRP (ACUTE PHASE) Routine 07/23/2024 5:3 0 AM GOLD LETTERER COMPREHENSIVE METABOLIC PANEL Routine 07/23/2024 5:30 AM GOLD LETTERER DIFFERENTIAL AUTO Routine 07/23/2024 5:3 0 AM GOLD LETTERER CBC WITH AUTO DIFFERENTIAL Routine 07/23/2024 5:30 AM GOLD LETTERER EGFR Routine 07/16/2024 5:56 AM GOLD LETTERER COMPREHENSIVE METABOLIC PANEL Routine 07/16/2024 5:56 AM GOLD LETTERER CBC WITHOUT DIFFERENTIAL Routine 07/16/2024 5:56 AM GOLD LETTERER from Last 3 Months Results * POCT glucose (07/31/2024 11:30 AM GOLD LETTERER) [facility] Signature Glucose, POC 85 70 - 199 mg/dL Glucose comment 1 Use This Result [facility] Glucose comment 2 RN/MD Notified [facility] Blood 07/31/2024 11:3 0 AM GOLD LETTERER 07/31/2024 11:30 AM GOLD LETTERER Markus Snowden MD LAB POCT ORDERABLES - D EVICE Final Result Performing Organization Address [facility] Co de Phone Number [id number] [place] [address] * POCT glucose (07/31/2024 7:30 AM GOLD LETTERER) Glucose, POC 99 70 - 199 mg/dL Glucose comment 1 Use This Result [facility] Glucose comment 2 RN/ Notified [facility] Blood 07/31/2024 7:30 AM GOLD LETTERER 07/31/2024 7:30 AM GOLD LETTERER Markus Snowden MD LAB POCT ORDERABLES - D EVICE Final Result Performing Organization Address [facility] de Phone Number [address] [place] [address] * POCT glucose (07/30/2024 11:38 PM GOLD LETTERER) Pathologist [facility] Glucose, POC 99 70 - 199 mg/dL Glucose comment 1 Use This Result [facility] Glucose comment 2 RN/MD Notified [facility] Blood 07/30/2024 11:3 8 PM GOLD LETTERER 07/30/2024 11:38 PM GOLD LETTERER Sadi Graham MD LAB POCT ORDERABLES - DEVICE Final Result Performing Organization Address [facility] Co de Phone Number [address] [place] [address] * eGFR (07/30/2024 9:24 PM GOLD LETTERER) eGFR >90 >=60 mL/min/1. 73 m2 Comment: [...] of Race in Diagnosing Kidney Disease, JASN 2020). The CKD-EPI equation should not be used for patients with unstable renal function and has not been validated in children and those over 70. Current interpretive data was last reviewed 2021. Blood 07/30/2024 9:24 PM GOLD LETTERER 07/30/2024 9:37 PM GOLD LETTERER us Rashi Ingram MD LAB BLOOD ORDERABLES Final Result [facility] [address] [facility] Department [place] [address] * Differential, auto (07/30/2024 9:24 PM GOLD LETTERER) Pathologist [facility] Neutrophil abs 3.4 1.5 - 6.5 K/cumm Imm gran abs 0.0 0.0 - 0.1 K/cumm [facility] Lymphocyte abs 1.5 0.8 - 3.3 K/cumm [facility] Monocyte abs 0.5 0.2 - 0.8 K/cumm [facility] Eosinophil abs 0.4 0.0 - 0.5 K/cumm [facility] Basophil abs 0.1 0.0 - 0.1 K/cumm [facility] Neutrophil pct 58.3 % [facility] Comment: Interpretive Data Percent cell count reference ranges are not reported, since discordance with absolute values may lead to misinterpretation of CBC data. Current Interpretive Data was last revised on 2017. Imm gran pct 0.2 % [facility] Comment: Interpretive Data Percent cell count reference ranges are not reported, since discordance with absolute values may lead to misinterpretation of CBC data. Current Interpretive Data was last revised on 2017. Lymphocyte pct 25.5 % [facility] Comment: Interpretive Data Percent cell count reference ranges are not reported, since discordance with absolute values may lead to misinterpretation of CBC data. Current Interpretive Data was last revised on 2017. Monocyte pct 9.1 % [facility] Comment: Interpretive Data Percent cell count reference ranges are not reported, since discordance with absolute values may lead to misinterpretation of CBC data. Current Interpretive Data was last revised on 2017. Eosinophil pct 6.0 % [facility] Comment: Interpretive Data Percent cell count reference ranges are not reported, since discordance with absolute values may lead to misinterpretation of CBC data. Current Interpretive Data was last revised on 2017. Basophil pct 0.9 % [facility] Comment: Interpretive Data Percent cell count reference ranges are not reported, since discordance with absolute values may lead to misinterpretation of CBC data. Current Interpretive Data was last revised on 2017. Blood 07/30/2024 9:24 PM GOLD LETTERER 07/30/2024 9:37 PM GOLD LETTERER Rashi Ingram MD LAB BLOOD ORDERABLES Final Result [facility] [address] [facility] Department of Laboratories [place], [place] [id number] * (ABNORMAL) CBC with auto differential (07/30/2024 9:24 PM GOLD LETTERER) WBC 5.8 3.8 - 9.9 K/cumm Hgb 12.4 11.9 - 15.5 g/dL [facility] Hct 39.6 35.6 - 45.5 % [facility] Plt 227 150 - 400 K/cumm [facility] MPV 10.5 9.1 - 12.3 fL [facility] RBC 4.45 3.90 - 5.20 M/cumm [facility] MCV 89.0 81.3 - 96.4 fL [facility] MCH 27.9 27.1 - 33.3 pg [facility] MCHC 31.3(L) 32.3 - 35.7 g/dL [facility] RDW CV 15.6(H) 11.1 - 14.9 % [facility] RDW SD 51.0(H) 35.7 - 48.1 fL [facility] NRBC abs 0.00 0.00 - 0.01 K/cumm [facility] Blood 07/30/2024 9:24 PM GOLD LETTERER 07/30/2024 9:37 PM GOLD LETTERER Rashi Ingram MD LAB BLOOD ORDERABLES Final Result Performing Organization Address [facility] de Phone Number [address] [place] [address] * aPTT (07/30/2024 9:24 PM GOLD LETTERER) aPTT 32 22 - 37 sec Comment: Interpretive data aPTT test has not been evaluated for monitoring heparin therapy. The anti-Xa is the preferred test. Current interpretive data was last revised on 2019. Blood 07/30/2024 9:24 PM GOLD LETTERER 07/30/2024 9:37 PM GOLD LETTERER Rashi Ingram MD LAB BLOOD ORDERABLES Final Result Performing Organization Address [facility] Co de Phone Number [address] [place] [address] * Protime-INR (07/30/2024 9:24 PM GOLD LETTERER) PT 13.2 12.0 - 14.6 sec INR 1.0 0.9 - 1.2 [facility] Comment: Ref Range High Interpretive data Oral anticoagulant therapeutic ranges: Venous thromboembolism prophylaxis or treatment: 2.0-3.0 CARDIOLOGY Standard range: 2.0-3.0 High-intensity range: 2.5-3.5 Refer to indication-specific guidelines for appropriate target ranges for prosthetic heart valve replacement. Current interpretive data was last revised on 2019. Blood 07/30/2024 9:24 PM GOLD LETTERER 07/30/2024 9:37 PM GOLD LETTERER Rashi Ingram MD LAB BLOOD ORDERABLES Final Result [facility] [address] [facility] Department [place] [address] * (ABNORMAL) Comprehensive metabolic panel (07/30/2024 9:24 PM GOLD LETTERER) Sodium 139 135 - 145 mmol/L Potassium, pl 4.2 3.3 - 4.9 mmol/L [facility] Comment:Hemolyzed; Potassium value may be falsely elevated by as much as 1.0 mmol/L. Suggest redraw and reanalysis. Chloride 102 97 - 110 mmol/L [facility] CO2 26 22 - 32 mmol/L [facility] Anion gap 11 2 - 15 mmol/L [facility] BUN 15 6 - 25 mg/dL [facility] Creatinine 0.60 0.60 - 1.10 mg/dL [facility] Glucose 123 70 - 199 mg/dL [facility] Comment: Interpretive Data Fasting glucose >/= [...] classification and Diagnosis of Diabetes Diabetes Care 2022; 46: S19-S40. Current interpretive data was last revised 2022. Calcium 10.5(H) 8.5 - 10.3 mg/dL [facility] Bilirubin, total 0.4 0.1 - 1.2 mg/dL [facility] Protein, pl 7.3 6.5 - 8.5 g/dL [facility] Albumin 3.9 3.5 - 5.0 g/dL [facility] Alk phos 153(H) 40 - 130 Units/L [facility] ALT 19 7 - 45 Units/L [facility] AST 38 10 - 45 Units/L [facility] Comment:Hemolyzed; result ma y be falsely elevated Blood 07/30/2024 9:24 PM GOLD LETTERER 07/30/2024 9:37 PM GOLD LETTERER Rashi Ingram MD LAB BLOOD ORDERABLES Final Result [facility] [address] [facility] Department [place] [address] * XR Chest 1 Vw Portable (07/30/2024 2:45 PM GOLD LETTERER) Anatomical Region Laterality Modality Body, Chest N/A Computed Radiogr aphy 07/30/2024 3:27 PM GOLD LETTERER Narrative 07/30/2024 3:30 PM GOLD LETTERER EXAM DESCRIPTION: XR CHEST 1 VIEW REASON [...] D: ??07/30/2024 3:30 PM T: Report ID: [id number] Reading Location: ??[id number] Procedure Note Radha Terry MD - 07/30/2024 [...] Radha White M.D. FT T: Report ID: [id number] Reading Location: [id number] us Rashi Ingram MD IMG XR PROCEDURES Final Re sult * eGFR (07/23/2024 5:30 AM GOLD LETTERER) eGFR >90 >=60 mL/min/1. 73 m2 [facility] Comment: Interpretive Data Reference Interval Normal ?>/= [...] of Race in Diagnosing Kidney Disease, JASN 2020). The CKD-EPI equation should not be used for patients with unstable renal function and has not been validated in children and those over 70. Current interpretive data was last reviewed 2021. [facility], [address] [place] [address]., [address] Blood 07/23/2024 5:30 AM GOLD LETTERER 07/23/2024 5:54 AM GOLD LETTERER Mary Trivedi [employer]LOBAL [employer] MARKETING MANAGER LAB BLOOD ORDERABLES Final Result [facility] [address] Department [place] [address] * Differential, auto (07/23/2024 5:30 AM GOLD LETTERER) Neutrophil abs 2.5 1.5 - 6.5 K/cumm [facility] Comment:[address] [address] Imm gran abs 0.0 0.0 - 0.1 K/cumm [facility] Comment:[address] [address] Lymphocyte abs 1.5 0.8 - 3.3 K/cumm [facility] Comment:[address] [address] Monocyte abs 0.5 0.2 - 0.8 K/cumm [facility] Comment:[address] [address] Eosinophil abs 0.3 0.0 - 0.5 K/cumm [facility] Comment:[address] [address] Basophil abs 0.1 0.0 - 0.1 K/cumm [facility] Comment:[facility], [address] [place]., [address] Neutrophil pct 50.8 % [facility] Comment: Interpretive Data Percent cell count reference ranges are not reported, since discordance with absolute values may lead to misinterpretation of CBC data. Current Interpretive Data was last revised on 2017. [address] [address] Imm gran pct 0.2 % [facility] Comment: Interpretive Data Percent cell count reference ranges are not reported, since discordance with absolute values may lead to misinterpretation of CBC data. Current Interpretive Data was last revised on 2017. [address] [address] Lymphocyte pct 30.7 % [facility] Comment: Interpretive Data Percent cell count reference ranges are not reported, since discordance with absolute values may lead to misinterpretation of CBC data. Current Interpretive Data was last revised on 2017. [facility], [address] [place] [address]., [address] Monocyte pct 10.6 % [facility] Comment: Interpretive Data Percent cell count reference ranges are not reported, since discordance with absolute values may lead to misinterpretation of CBC data. Current Interpretive Data was last revised on 2017. [facility], [address] [place] [address]., [address] Eosinophil pct 6.7 % [facility] Comment: Interpretive Data Percent cell count reference ranges are not reported, since discordance with absolute values may lead to misinterpretation of CBC data. Current Interpretive Data was last revised on 2017. [facility], [address] [place] [address]., [address] Basophil pct 1.0 % [facility] Comment: Interpretive Data Percent cell count reference ranges are not reported, since discordance with absolute values may lead to misinterpretation of CBC data. Current Interpretive Data was last revised on 2017. [facility], [address] [place] [address]., [address] Blood 07/23/2024 5:30 AM GOLD LETTERER 07/23/2024 5:54 AM GOLD LETTERER Mary Trivedi [employer]LOBAL [employer] MARKETING MANAGER LAB BLOOD ORDERABLES Final Result [facility] [address] [facility] Department [place] [address] * (ABNORMAL) CBC with auto differential (07/23/2024 5:30 AM GOLD LETTERER) WBC 4.9 3.8 - 9.9 K/cumm [facility] Comment:[address], [address] Hgb 11.0(L) 11.9 - 15.5 g/dL [facility] Comment:[address], [address] Hct 35.3(L) 35.6 - 45.5 % [facility] Comment:[address], [address] Plt 247 150 - 400 K/cumm [facility] Comment:[address], [address] MPV 9.9 9.1 - 12.3 fL [facility] Comment:[address], [address] RBC 3.85(L) 3.90 - 5.20 M/cumm [facility] Comment:[address], [address] MCV 91.7 81.3 - 96.4 fL [facility] Comment:[address], [address] MCH 28.6 27.1 - 33.3 pg [facility] Comment:[address], [address] MCHC 31.2(L) 32.3 - 35.7 g/dL [facility] Comment:[address], [address] RDW CV 15.8(H) 11.1 - 14.9 % [facility] Comment:[address], [address] RDW SD 52.8(H) 35.7 - 48.1 fL [facility] Comment:[address], [address] NRBC abs 0.00 0.00 - 0.01 K/cumm [facility] Comment:[address] [address] Blood 07/23/2024 5:30 AM GOLD LETTERER 07/23/2024 5:54 AM GOLD LETTERER Mary Trivedi [employer] MARKETING MANAGER LAB BLOOD ORDERABLES Final Result Performing Organization Address [facility] Co de Phone Number LOY[address] [place] [address] * (ABNORMAL) CRP (acute phase) (07/23/2024 5:30 AM GOLD LETTERER) Pathologist [facility] CRP 29.6(H) <=10.0 mg/L [facility] Comment:[address] [address] Blood 07/23/2024 5:30 AM GOLD LETTERER 07/23/2024 5:54 AM GOLD LETTERER Mary Trivedi [employer] MARKETING MANAGER LAB BLOOD ORDERABLES Final Result Performing Organization Address [facility] de Phone Number [address] [address] * (ABNORMAL) Comprehensive metabolic panel (07/23/2024 5:30 AM GOLD LETTERER) Pathologist [facility] Sodium 140 135 - 145 mmol/L [facility] Comment:[address] [address] Potassium, pl 4.3 3.3 - 4.9 mmol/L [facility] Comment:[address] [address] Chloride 105 97 - 110 mmol/L [facility] Comment:[address] [address] CO2 29 22 - 32 mmol/L [facility] Comment:[address] [address] Anion gap 6 2 - 15 mmol/L [facility] Comment:[address] [address] BUN 18 6 - 25 mg/dL [facility] Comment:[address] [address] Creatinine 0.66 0.60 - 1.10 mg/dL [facility] Comment:[address] [address] Glucose 94 70 - 199 mg/dL [facility] Comment: Interpretive Data Fasting glucose >/= 126 [...] Current interpretive data was last revised 2022. [facility], [address] [place]., [address] Calcium 9.8 8.5 - 10.3 mg/dL [facility] Comment:[address] [address] Bilirubin, total 0.3 0.1 - 1.2 mg/dL [facility] Comment:[address] [address] Protein, pl 6.6 6.5 - 8.5 g/dL [facility] Comment:[address] [address] Albumin 3.4(L) 3.5 - 5.0 g/dL [facility] Comment:[address] [address] Alk phos 152(H) 40 - 130 Units/L [facility] Comment:[address] [address] ALT 19 7 - 45 Units/L [facility] Comment:[address] [address] AST 25 10 - 45 Units/L [facility] Comment:[address] [address] Blood 07/23/2024 5:30 AM GOLD LETTERER 07/23/2024 5:54 AM GOLD LETTERER us Mary Trivedi GLOBAL UPSTREAM MARKETING MANAGER LAB BLOOD ORDERABLES Final Result Performing Organization Address [facility]/ZIP Co de Phone Number [id number] Department [place] [address] * eGFR (07/16/2024 5:56 AM GOLD LETTERER) eGFR >90 >=60 mL/min/1. 73 m2 [facility] Comment: Interpretive Data Reference Interval Normal ?>/= [...] of Race in Diagnosing Kidney Disease, JASN 2020). The CKD-EPI equation should not be used for patients with unstable renal function and has not been validated in children and those over 70. Current interpretive data was last reviewed 2021. [facility], [address] [place] [address]., [address] Blood 07/16/2024 5:56 AM GOLD LETTERER 07/16/2024 6:54 AM GOLD LETTERER us Genaro Jaramillo MD LAB BLOOD ORDERABLES Final R esult Performing Organization Address City/[facility]/ZIP Co de Phone Number [id number] Department [place] [address] * (ABNORMAL) CBC without differential (07/16/2024 5:56 AM GOLD LETTERER) WBC 5.8 3.8 - 9.9 K/cumm [facility] Comment:[address], [address] Hgb 10.9(L) 11.9 - 15.5 g/dL [facility] Comment:[address], [address] Hct 34.6(L) 35.6 - 45.5 % [facility] Comment:[address], [address] Plt 256 150 - 400 K/cumm [facility] Comment:[address], [address] MPV 10.0 9.1 - 12.3 fL [facility] Comment:[address], [address] RBC 3.76(L) 3.90 - 5.20 M/cumm [facility] Comment:[address], [address] MCV 92.0 81.3 - 96.4 fL [facility] Comment:[address], [address] MCH 29.0 27.1 - 33.3 pg [facility] Comment:[address], [address] MCHC 31.5(L) 32.3 - 35.7 g/dL [facility] Comment:[address], [address] RDW CV 15.7(H) 11.1 - 14.9 % [facility] Comment:[address], [address] RDW SD 52.8(H) 35.7 - 48.1 fL [facility] Comment:[address], [address] NRBC abs 0.00 0.00 - 0.01 K/cumm [facility] Comment:[address], [address] Blood 07/16/2024 5:56 AM GOLD LETTERER 07/16/2024 6:54 AM GOLD LETTERER us Genaro Jaramillo MD LAB BLOOD ORDERABLES Final R esult [facility] [address] Department [place] [address] * (ABNORMAL) Comprehensive metabolic panel (07/16/2024 5:56 AM GOLD LETTERER) Sodium 140 135 - 145 mmol/L [facility] Comment:[address] [address] Potassium, pl 4.0 3.3 - 4.9 mmol/L [facility] Comment:[address] [address] Chloride 105 97 - 110 mmol/L [facility] Comment:[address] [address] CO2 28 22 - 32 mmol/L [facility] Comment:[address] [address] Anion gap 7 2 - 15 mmol/L [facility] Comment:[address] [address] BUN 13 6 - 25 mg/dL [facility] Comment:[address] [address] Creatinine 0.66 0.60 - 1.10 mg/dL [facility] Comment:[address] [address] Glucose 90 70 - 199 mg/dL [facility] Comment: Interpretive Data Fasting glucose >/= 126 [...] Current interpretive data was last revised 2022. [facility], [address] [place] [address]., [address] Calcium 9.5 8.5 - 10.3 mg/dL [facility] Comment:[address] [address] Bilirubin, total 0.3 0.1 - 1.2 mg/dL [facility] Comment:[address] [address] Protein, pl 6.6 6.5 - 8.5 g/dL [facility] Comment:[address], [address] Albumin 3.5 3.5 - 5.0 g/dL [facility] Comment:[address] [address] Alk phos 141(H) 40 - 130 Units/L [facility] Comment:[address], [address] ALT 14 7 - 45 Units/L [facility] Comment:[address], [address] AST 15 10 - 45 Units/L [facility] Comment:[address] [address] Blood 07/16/2024 5:56 AM GOLD LETTERER 07/16/2024 6:54 AM GOLD LETTERER us Genaro Jaramillo MD LAB BLOOD ORDERABLES Final R esult [facility] [address] [facility] [place] [address] from Last [address] [facility] ADVANTAGE CHOICE PPO [employer] CHOICE PPO Member Subscriber Plan / Payer (Ef fective 2023-Present) Name:Keegan Amaya Relation to Subscriber:Self Name:Keegan Amaya Payer ID:[id number] (NAIC) Type:MEDICARE RISK OTHER Address: [address] [facility] Advance Directives For more information, please contact: [phone] * Full Code (Latest Code Status on File) Date Activated Date Inactivated Comments 07/30/2024 11:54 PM 07/31/2024 4:45 PM Care Teams Air Dispatcher Relationship Specialty Start Date End Date Omid Douglass MD [facility] [place] [address] PCP - General 12/15/11 Nathan Baig MD 3 [facility] [address] [place] [address] Pulmonary Disease 08/15/24 Tracy Olivares MD [address] [facility] [address] [place] [address] Internal Medicine 08/15/24
--- OUTSIDE RECORDS SUMMARY | 2024-09-07 15:30 | XMS_ITS | Encounter Summary ---
Author Organization [facility] Address [address] [place] [address] Care Team Providers Care Regional Sales Executive Name Role Phone Tracy Olivares MD Primary Care Provider [phone] Encounter Details Date Type Department Care Team (Late st Contact Info) Description 08/15/2024 Abstract [facility] INFECTIOUS DISEASE [place] B [address] [place] [address] Indio Oliver MD [address] [facility] [address] [place] [address] Social History Tobacco Use Types [...] st Contact Info) Description 10/04/2024 10:00 AM PRINTING SIGN MACHINE OPERATOR Office Visit [facility] Neurosurgery - Medical [place] [address] [place] [address] Harris Fischer MD [address] [facility] [address] [place] [address] documented as of this encounter Visit Diagnoses Not on filedocumented in this encounter Care Teams Regional Sales Executive Relationship Specialty Start Date End Date Tracy Olivares MD [address] [place] [address] PCP - General Internal Medicine 07/02/24 documented as of this encounter
--- OUTSIDE RECORDS SUMMARY | 2024-09-07 15:30 | XMS_ITS | Encounter Summary ---
Author Organization [facility] Address [address] [place] [address] Care Team Providers Care Bailer Operators Supervisor Name Role Phone Tracy Olivares MD Primary Care Provider [phone] Encounter Details Date Type Department Care Team (Late st Contact Info) Description 08/13/[address] [facility] INFECTIOUS DISEASE [place] B [address] [place] [address] Indio Oliver MD [address] [facility] [address] [place] [address] Social History Tobacco Use Types [...] st Contact Info) Description 10/04/2024 10:00 AM SYSTEMS ANALYSIS MANAGER Office Visit [facility] Neurosurgery - Medical [place] [address] [facility] [place] [address] Harris Fischer MD [address] [facility] [address] [place] [address] documented as of this encounter Visit Diagnoses Not on filedocumented in this encounter Care Teams Bailer Operators Supervisor Relationship Specialty Start Date End Date Tracy Olivares MD [address] [place] [address] PCP - General Internal Medicine 07/02/24 documented as of this encounter
--- OUTSIDE RECORDS SUMMARY | 2024-09-07 15:30 | XMS_ITS | Encounter Summary ---
Author Organization [facility] Address [address] [place] [address] Care Team Providers Care Registered Public Surveyor Name Role Phone Omid Douglass MD Primary Care Provider [phone] Encounter Details Date Type Department Care Team (Late st Contact Info) Description 07/23/2024 NH/SNF Visit [facility] Medical Group Post Acute [facility] [address] [place] [phone] Mary Trivedi, EMERGENCY PREPAREDNESS MANAGER [address] [place] [address] Osteomyelitis of lumbar spine (HCC) (Primary Dx); Epidural abscess; 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 sciatica; Discitis of lumbar region Social History Tobacco Use Types Packs/Day [...] on file Legal Sex Female 12:03 AM STIFF NECK LOADER Gender Identity Not on file Sexual Orientation Not on file documented as of this encounter Last Filed Vital Signs Vital Sign Reading Time Taken Comments Blood Pressure 124/68 07/23/2024 1:29 PM STIFF NECK LOADER Pulse - - Temperature - - Respiratory Rate - - Oxygen Saturation - - Inhaled Oxygen Concentration - - Weight - - Height - - Body Mass Index - - documented in this encounter Ordered Prescriptions Prescription Sig Dispense Quantity Refills Last Filled Start Date End Date lidocaine (LIDODERM) 5 % Place 1 patch on the skin daily Remove & discard patch within 12 hours or as directed by MD. 60 patch 07/23/2024 acetaminophen (TYLENOL) 500 mg tablet Take 1 tablet (500 mg total) by mouth every 6 (six) hours as needed for pain And 2 tabs BID 07/23/2024 HYDROcodone-acetam inophen (NORCO) 5-325 mg per tablet Take 1 tablet by mouth every 8 (eight) hours as needed for pain 30 tablet 07/23/2024 4 documented in this encounter Progress Notes * Mary Trivedi EMERGENCY PREPAREDNESS MANAGER - 07/23/2024 1:27 PM CST Images from the original note were not included. [facility] Facility Discharge Note Admitting Provider: Genaro Jaramillo MD Discharge Provider: Genaro Jaramillo MD Primary Care Physician at Discharge: Omid Douglass MD [phone] Admission Date: 07/10 Discharge Date: 07/24 Admission Location: [facility] Assessment and Plan Diagnoses and all orders for this visit: [...] controlled with PRN meds & Lidoderm patches. Epidural abscess 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 sciatica Discitis of lumbar region Subjective and Objective Patient ID: Keegan Amaya is a 68 y.o. female. HPI/Rehab Course: 68 year old with asthma, emphysema, HLD, GERD, peripheral neuropathy, HTN. Patient presented with worsening back pain. Found to have L4- L5 discitis/osteomyelitis on MRI. Seen by infectious disease, recommended for cefepime IV for 6 weeks. Seen by neurosurgery, no acute intervention, recommend course of antibiotics and follow up with neurosurgery in 3 months with repeat xrays. Given stable VS andlabs, no further acute inpatient intervention, [facility]. 07/16: Patient resting in bed. She has been complaining of pain to R flank/back pain. She is concerned about labs & kidney function. Have reviewed labs with patient. VSS. She would like dcp prior to dc of IV abx if progressed in therapy. Have discussed with SS. No other patient or nursing concerns. Vitals: Vitals BP 124/68 Physical Exam Vitals and nursing note reviewed. [...] Mood and affect normal. Behavior: Behavior normal. Pertinent Test Results: No results found for this or any previous visit (from the past week). Active Issues Requiring Follow-up: ID/NSY fu Discharge Disposition: Home Health: PT/OT/cisco network architect Medications: Current Outpatient Medications Medication Sig albuterol HFA (PROVENTIL HFA,VENTOLIN HFA,PROAIR HFA) 90 mcg/actuation inhaler Inhale 2 puffs every6 (six) hours as needed aspirin 81 mg enteric coated tablet Take 1 tablet (81 mg total) by mouth daily atorvastatin (LIPITOR) 20 mg tablet Take 1 tablet (20 mg total) by mouth daily cholecalciferol (VITAMIN D-3) 2000 unit capsule Take 1 capsule (2,000 Units total) by mouth daily cyclobenzaprine (FLEXERIL) 10 mg tablet Take 1 tablet (10 mg total) by mouth 3 (three) times a day as needed empagliflozin (JARDIANCE) 25 mg tablet Take 1 tablet (25 mg total) by mouth daily famotidine (PEPCID) 20 mg tablet Take 1 tablet (20 mg total) by mouth 2 (two) times a day ljrxpwgxscd-xxeksrsqm-ddgesxka (TRELEGY ELLIPTA) 200-62.5-25 mcg inhaler Inhale 1 puff daily gabapentin (NEURONTIN) 300 mg capsule Take 1 capsule (300 mg total) by mouth 2 (two) times a day melatonin tablet Take 1 tablet (3 mg total) by mouth nightly as needed pantoprazole DR (PROTONIX) 40 mg EC tablet Take 1 tablet (40 mg total) by mouth daily polyethylene glycol (MIRALAX) 17 gram packet Take 1 packet (17 g total) by mouth daily as needed acetaminophen (TYLENOL) 500 mg tablet Take 1 tablet (500 mg total) by mouth every 6 (six) hours as needed for pain And 2 tabs BID cefepime (MAXIPIME) 2,000 mg/100 mL IVBP Infuse 100 mL (2,000 mg total) into a venous catheter every 12 (twelve) hours HYDROcodone-acetaminophen (NORCO) 5-325 mg per tablet Take 1 tablet by mouth every 8 (eight) hours as needed for pain lidocaine (LIDODERM) 5 % Place 1 patch on the skin daily Remove & discard patch within 12 hoursor as directed by senna (SENOKOT) 8.6 mg tablet Take 1 tablet by mouth 2 (two) times a day as needed Discharge Instructions: Discharge activity: Per therapy discharge instructions Discharge diet: Regular Post-Discharge Dressing Care: Per facility instructions Call provider for: difficulty breathing or chest pain Call provider for: redness, tenderness, or signs of infection (pain, swelling, redness, odor or green/yellow discharge around incision site) Call provider for: headache, visual disturbances, weakness and speech changes Outpatient Follow-Up: Follow up with PCP in 1 week My total encounter time on 07/23/2024 was 35 minutes which was spent in the activities documented in the note. This includes time spent prior to the visit and after the visit in direct care of the patient. This time does not include time spent in any separately reportable services. Electronically signed by Mary Trivedi NP 07/23/2024 1:42 PM Voice recognition software MModal Fluency Direct was used dictate and transcribe this document. Merchandise Marker variances may occur. Despite proofreading, typographical errors may occur. Cosigned by Genaro Jaramillo MD at 07/25/2024 8:32 AM STIFF NECK LOADER F NECK LOADER F NECK LOADER documented in this encounter Miscellaneous Notes * Assessment & Plan Note - Mary Trivedi NP - 07/23/2024 1:41 PM STIFF NECK LOADER Associated Problem(s): Osteomyelitis of lumbar spine (HCC) [...] controlled with PRN meds & Lidoderm patches. F NECK LOADER documented in this encounter Plan of Treatment Not on file documented as of this encounter Visit Diagnoses Diagnosis Osteomyelitis of lumbar spine (HCC)- Primary Epidural abscess Intracranial abscess 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 sciatica Discitis of lumbar region Other and unspecified disc disorder of lumbar region documented in this encounter Discontinued Medications Medication Sig Discontinue Reason Start Date End Da te senna-docusate (PERICOLACE) 8.6-50 mg Take 1 tablet by mouth 2 (two) times a day as needed 07/02/2024 07/23/2024 HYDROcodone-acetaminophen (NORCO) 5-325 mg per tabletIndications:Arthral genevieve, unspecified joint Take 1 tablet by mouth every 8 (eight) hours as needed for pain Reorder 07/11/2024 07/23/2024 documented as of this encounter Historical Medications * This list may reflect changes made after this encounter. senna (SENOKOT) 8.6 mg tablet Take 1 tablet by mouth 2 (two) times a day as needed cefepime (MAXIPIME) 2,000 mg/100 mL IVBP Infuse 100 mL (2,000 mg total) into a venous catheter every 12 (twelve) hours added in this encounter Care Teams Registered Public Surveyor Relationship Specialty Start Date End Date Omid Douglass MD [address] [place] [address] [place] [address] PCP - General 12/15/11 documented as of this encounter
--- OUTSIDE RECORDS SUMMARY | 2024-09-07 15:30 | XMS_ITS | Encounter Summary ---
Author Organization [facility] Address [address] [place] [address] Care Team Providers Care Digital Media Specialist Name Role Phone Tracy Olivares MD Primary Care Provider [phone] Reason for Visit * Reason Onset Date Comments Results 08/13/2024 Encounter Details Date Type Department Care Team (Late st Contact Info) Description 08/13/2024 Telephone [facility] INFECTIOUS DISEASE [place] [address] [place] [address] Indio Oliver MD [address] [place] [address] Results Social History Tobacco Use [...] to continue antibiotics for 2 more weeks. O VISUAL COLLECTIONS COORDINATOR * Telephone Encounter - Stacy Abarca LPN [...] today. Labs scanned under media. Please advise. O VISUAL COLLECTIONS COORDINATOR documented in this encounter Plan of Treatment Upcoming Encounters Date Type Department Care Team (Late st Contact Info) Description 10/04/2024 10:00 AM AUDIO VISUAL COLLECTIONS COORDINATOR Office Visit [facility] Neurosurgery - [facility] [address] [facility] [address] [place] [address] Harris Fischer MD [address] [facility] [address] [place] [address] documented as of this encounter Visit Diagnoses Not on filedocumented in this encounter Care Teams Digital Media Specialist Relationship Specialty Start Date End Date Tracy Olivares MD [address] [place] [address] PCP - General Internal Medicine 07/02/24 documented as of this encounter
--- OUTSIDE RECORDS SUMMARY | 2024-09-07 15:30 | XMS_ITS | Encounter Summary ---
Author Organization [facility] Address [address] [place] [address] Care Team Providers Care Operations Administrator Name Role Phone Omid Douglass MD Primary Care Provider [phone]- [phone] Encounter Details Date Type Department Care Team (Late st Contact Info) Description 07/16/2024 Orders Only [facility] [address] [place] [address] Genaro Jaramillo MD [address] [address] Social History Tobacco Use Types Packs/Day Years Used Date Smoking Tobacco: Never Assessed Comments Unknown Sex and Gender Information Value Date Recorded Sex Assigned at Not on file Legal Sex Female 12:03 AM VETERINARY TECHNICIAN Gender Identity Not on file Sexual Orientation Not on file documented as of this encounter Plan of Treatment Not on file documented as of this encounter Procedures Procedure Name Priority Date/Time Associated Diagnosis Comments EGFR Routine 07/23/2024 5:30 AM VETERINARY TECHNICIAN DIFFERENTIAL AUTO Routine 07/23/2024 5:3 0 AM VETERINARY TECHNICIAN CBC WITH AUTO DIFFERENTIAL Routine 07/23/2024 5:30 AM VETERINARY TECHNICIAN CRP (ACUTE PHASE) Routine 07/23/2024 5:3 0 AM VETERINARY TECHNICIAN COMPREHENSIVE METABOLIC PANEL Routine 07/23/2024 5:30 AM VETERINARY TECHNICIAN EGFR Routine 07/16/2024 5:56 AM VETERINARY TECHNICIAN CBC WITHOUT DIFFERENTIAL Routine 07/16/2024 5:56 AM VETERINARY TECHNICIAN COMPREHENSIVE METABOLIC PANEL Routine 07/16/2024 5:56 AM VETERINARY TECHNICIAN documented in this encounter Results * eGFR (07/23/2024 5:30 AM VETERINARY TECHNICIAN) eGFR >90 >=60 mL/min/1. 73 m2 [facility] [...] Current interpretive data was last reviewed 2021. [facility], [facility], [place]., [address] Blood 07/23/2024 5:30 AM VETERINARY TECHNICIAN 07/23/2024 5:54 AM VETERINARY TECHNICIAN us Mary Trivedi NP LAB BLOOD ORDERABLES Final Result Performing Organization Address [facility] Co de Phone Number [id number] [place] [address] * (ABNORMAL) CRP (acute phase) (07/23/2024 5:30 AM VETERINARY TECHNICIAN) Pathologist [facility] CRP 29.6(H) <=10.0 mg/L [facility] Comment:[address] [address] Blood 07/23/2024 5:30 AM VETERINARY TECHNICIAN 07/23/2024 5:54 AM VETERINARY TECHNICIAN us Mary Trivedi NP LAB BLOOD ORDERABLES Final Result Performing Organization Address [facility] Co de Phone Number [facility] [address] [address] * (ABNORMAL) Comprehensive metabolic panel (07/23/2024 5:30 AM VETERINARY TECHNICIAN) [facility] Sodium 140 135 - 145 mmol/L [facility] Comment:[address] [address] Potassium, pl 4.3 3.3 - 4.9 mmol/L [facility] Comment:[address] [address] Chloride 105 97 - 110 mmol/L [facility] Comment:[address] [address] CO2 29 22 - 32 mmol/L [facility] Comment:[address] [address] Anion gap 6 2 - 15 mmol/L [facility] Comment:[address] [address] BUN 18 6 - 25 mg/dL [facility] Comment:[address] [address] Creatinine 0.66 0.60 - 1.10 mg/dL [facility] Comment:[address] [address] Glucose 94 70 - 199 mg/dL [facility] [...] Current interpretive data was last revised 2022. [facility], [facility] [place]., [address] Calcium 9.8 8.5 - 10.3 mg/dL [facility] Comment:[address] [address] Bilirubin, total 0.3 0.1 - 1.2 mg/dL [facility] Comment:[address] [address] Protein, pl 6.6 6.5 - 8.5 g/dL [facility] Comment:[address] [address] Albumin 3.4(L) 3.5 - 5.0 g/dL [facility] Comment:[address] [address] Alk phos 152(H) 40 - 130 Units/L [facility] Comment[facility] [address] ALT 19 7 - 45 Units/L [facility] Comment:[address] [address] AST 25 10 - 45 Units/L [facility] Comment:[address] [address] Blood 07/23/2024 5:30 AM VETERINARY TECHNICIAN 07/23/2024 5:54 AM VETERINARY TECHNICIAN us Mary Trivedi NP LAB BLOOD ORDERABLES Final Result [facility] [address] [place] [address] * Differential, auto (07/23/2024 5:30 AM VETERINARY TECHNICIAN) Neutrophil abs 2.5 1.5 - 6.5 K/cumm [facility] Comment:[facility], [address] [place] [address]., [address] Imm gran abs 0.0 0.0 - 0.1 K/cumm [facility] Comment:[address] [address] Lymphocyte abs 1.5 0.8 - 3.3 K/cumm [facility] Comment:[address] [address] Monocyte abs 0.5 0.2 - 0.8 K/cumm [facility] Comment:[address] [address] Eosinophil abs 0.3 0.0 - 0.5 K/cumm [facility] Comment:[address] [address] Basophil abs 0.1 0.0 - 0.1 K/cumm [facility] Comment:[address] [address] Neutrophil pct 50.8 % [facility] Comment: Interpretive Data Percent cell count reference ranges are not reported, since discordance with absolute values may lead to misinterpretation of CBC data. Current Interpretive Data was last revised on 2017. [address] [address] Imm gran pct 0.2 % [facility] Comment: Interpretive Data Percent cell count reference ranges are not reported, since discordance with absolute values may lead to misinterpretation of CBC data. Current Interpretive Data was last revised on 2017. [address] [address] Lymphocyte pct 30.7 % [facility] Comment: Interpretive Data Percent cell count reference ranges are not reported, since discordance with absolute values may lead to misinterpretation of CBC data. Current Interpretive Data was last revised on 2017. [address] [address] Monocyte pct 10.6 % C[facility]ER Comment: Interpretive Data Percent cell count reference ranges are not reported, since discordance with absolute values may lead to misinterpretation of CBC data. Current Interpretive Data was last revised on 2017. [address] [address] Eosinophil pct 6.7 % [facility] Comment: Interpretive Data Percent cell count reference ranges are not reported, since discordance with absolute values may lead to misinterpretation of CBC data. Current Interpretive Data was last revised on 2017. [facility], [address] [place] [address]., [address] Basophil pct 1.0 % [facility] Comment: Interpretive Data Percent cell count reference ranges are not reported, since discordance with absolute values may lead to misinterpretation of CBC data. Current Interpretive Data was last revised on 2017. [facility], [address] [place] [address]., [address] Blood 07/23/2024 5:30 AM VETERINARY TECHNICIAN 07/23/2024 5:54 AM VETERINARY TECHNICIAN us Mary Trivedi OFFICE SYSTEMS TECHNOLOGY INSTRUCTOR LAB BLOOD ORDERABLES Final Result [facility] [address] [place] [address] * (ABNORMAL) CBC with auto differential (07/23/2024 5:30 AM VETERINARY TECHNICIAN) WBC 4.9 3.8 - 9.9 K/cumm [facility] Comment:[address] [address] Hgb 11.0(L) 11.9 - 15.5 g/dL [facility] Comment:[address] [address] Hct 35.3(L) 35.6 - 45.5 % [facility] Comment:[address] [address] Plt 247 150 - 400 K/cumm [facility] Comment:[address] [address] MPV 9.9 9.1 - 12.3 fL [facility] Comment:[address] [address] RBC 3.85(L) 3.90 - 5.20 M/cumm [facility] Comment:[address] [address] MCV 91.7 81.3 - 96.4 fL [facility] Comment:[address] [address] MCH 28.6 27.1 - 33.3 pg [facility] Comment:[address] [address] MCHC 31.2(L) 32.3 - 35.7 g/dL [facility] Comment:[address] [address] RDW CV 15.8(H) 11.1 - 14.9 % [facility] Comment:[address] [address] RDW SD 52.8(H) 35.7 - 48.1 fL [facility] Comment:[address] [address] NRBC abs 0.00 0.00 - 0.01 K/cumm [facility] Comment:[address] [address] Blood 07/23/2024 5:30 AM VETERINARY TECHNICIAN 07/23/2024 5:54 AM VETERINARY TECHNICIAN us Mary Trivedi OFFICE SYSTEMS TECHNOLOGY INSTRUCTOR LAB BLOOD ORDERABLES Final Result [facility] [address] [facility] [place] [address] * eGFR (07/16/2024 5:56 AM VETERINARY TECHNICIAN) eGFR >90 >=60 mL/min/1. 73 m2 [facility] [...] Current interpretive data was last reviewed 2021. [facility], [address] [place] [address]., [address] Blood 07/16/2024 5:56 AM VETERINARY TECHNICIAN 07/16/2024 6:54 AM VETERINARY TECHNICIAN us Genaro Jaramillo MD LAB BLOOD ORDERABLES Final R esult [facility] [address] [place] [address] * (ABNORMAL) Comprehensive metabolic panel (07/16/2024 5:56 AM VETERINARY TECHNICIAN) Sodium 140 135 - 145 mmol/L [facility] Comment:[address] [address] Potassium, pl 4.0 3.3 - 4.9 mmol/L [facility] Comment:[address] [address] Chloride 105 97 - 110 mmol/L [facility] Comment:[address] [address] CO2 28 22 - 32 mmol/L [facility] Comment:[address] [address] Anion gap 7 2 - 15 mmol/L [facility] Comment:[address] [address] BUN 13 6 - 25 mg/dL [facility] Comment:[address] [address] Creatinine 0.66 0.60 - 1.10 mg/dL [facility] Comment:[address] [address] Glucose 90 70 - 199 mg/dL [facility] [...] Current interpretive data was last revised 2022. [facility], [address] [place] [address]., [address] Calcium 9.5 8.5 - 10.3 mg/dL [facility] Comment:[address] [address] Bilirubin, total 0.3 0.1 - 1.2 mg/dL [facility] Comment:[address] [address] Protein, pl 6.6 6.5 - 8.5 g/dL [facility] Comment:[address] [address] Albumin 3.5 3.5 - 5.0 g/dL [facility] Comment:[address] [address] Alk phos 141(H) 40 - 130 Units/L [facility] Comment:[address] [address] ALT 14 7 - 45 Units/L [facility] Comment:[address] [address] AST 15 10 - 45 Units/L [facility] Comment:[address] [address] Blood 07/16/2024 5:56 AM VETERINARY TECHNICIAN 07/16/2024 6:54 AM VETERINARY TECHNICIAN us Genaro Jaramillo MD LAB BLOOD ORDERABLES Final R esult [facility] [address] [place] [address] * (ABNORMAL) CBC without differential (07/16/2024 5:56 AM VETERINARY TECHNICIAN) WBC 5.8 3.8 - 9.9 K/cumm [facility] Comment:[address], [address] Hgb 10.9(L) 11.9 - 15.5 g/dL [facility] Comment:[address], [address] Hct 34.6(L) 35.6 - 45.5 % [facility] Comment:[address], [address] Plt 256 150 - 400 K/cumm [facility] Comment:[address], [address] MPV 10.0 9.1 - 12.3 fL [facility] Comment:[address], [address] RBC 3.76(L) 3.90 - 5.20 M/cumm [facility] Comment:[address], [address] MCV 92.0 81.3 - 96.4 fL [facility] Comment:[address], [address] MCH 29.0 27.1 - 33.3 pg [facility] Comment:[address], [address] MCHC 31.5(L) 32.3 - 35.7 g/dL [facility] Comment:[address], [address] RDW CV 15.7(H) 11.1 - 14.9 % [facility] Comment:[address], [address] RDW SD 52.8(H) 35.7 - 48.1 fL [facility] Comment:[address], [address] NRBC abs 0.00 0.00 - 0.01 K/cumm [facility] Comment:[address], [address] Blood 07/16/2024 5:56 AM VETERINARY TECHNICIAN 07/16/2024 6:54 AM VETERINARY TECHNICIAN us Genaro Jaramillo MD LAB BLOOD ORDERABLES Final R esult [facility] [address] [facility] [place] [address] documented in this encounter Visit Diagnoses Not on filedocumented in this encounter Care Teams Operations Administrator Relationship Specialty Start Date End Date Omid Douglass MD [facility] [place] [address] PCP - General 12/15/11 documented as of this encounter
--- OUTSIDE RECORDS SUMMARY | 2024-09-07 15:30 | XMS_ITS | Encounter Summary ---
Author Organization [facility] Address [address] [place] [address] Care Team Providers Care Jv Baseball Coach Name Role Phone Omid Douglass MD Primary Care Provider [phone]- [phone] Reason for Visit * Reason Comments Vascular Access Problem Encounter Details Date Type Department Care Team (Late st Contact Info) Description 07/24/2024 7:40 PM SERVER SYSTEMS ADMINISTRATOR - 07/24/2024 8:10 PM SERVER SYSTEMS ADMINISTRATOR Emergency [address] [id number] Discharge Disposition: Left without being seen Social History Tobacco Use Types Packs/Day Years [...] on file Legal Sex Female 12:03 AM SERVER SYSTEMS ADMINISTRATOR Gender Identity Not on file Sexual Orientation Not on file documented as of this encounter Last Filed Vital Signs Vital Sign Reading Time Taken Comments Blood Pressure 157/94 07/24/2024 7:41 PM SERVER SYSTEMS ADMINISTRATOR Pulse 107 07/24/2024 7:41 PM SERVER SYSTEMS ADMINISTRATOR Temperature 36.9 ??C (98.4 ??F) 07/24/2024 7:41 PM CS T Respiratory Rate 18 07/24/2024 7:41 PM SERVER SYSTEMS ADMINISTRATOR Oxygen Saturation 100% 07/24/2024 7:41 PM SERVER SYSTEMS ADMINISTRATOR Inhaled Oxygen Concentration - - Weight - - Height 170.2 cm (5' 7 ) 07/24/2024 7:41 PM SERVER SYSTEMS ADMINISTRATOR Body Mass Index - - documented in this encounter Medications at Time [...] Discharge Disposition Disposition Code Departure Means Destination Left without being seen documented in this encounter ED Notes * Deo Sheppard RN - 07/24/2024 8:08 PM CST This nurse noticed there was a very noticeable kink in the picc line. This nurse redressed the PICCLine and straightened out the kink in the tubing and the PICC line flushed with no difficulty. Withit now flushing, the patient does not feel she needs to be seen. Deo Sheppard RN 07/24/242009 ER SYSTEMS ADMINISTRATOR * Deo Sheppard RN - 07/24/2024 7:45 PM CST Pt states, I just left around 3 PM from [facility] and the nurse that redid messed it up. I have a PICC line that wont flush so they told me to come here. Pt a/o x4. ER SYSTEMS ADMINISTRATOR documented in this encounter Plan of Treatment Not on file documented as of this encounter Visit Diagnoses Not on filedocumented in this encounter Care Teams Jv Baseball Coach Relationship Specialty Start Date End Date Omid Douglass MD [address] [place] [address] [place] [address] PCP - General 12/15/11 documented as of this encounter
--- OUTSIDE RECORDS SUMMARY | 2024-09-07 15:30 | XMS_ITS | Encounter Summary ---
Author Organization [facility] Address [address] [place] [address] Care Team Providers Care Acid Splicer Name Role Phone Tracy Olivares MD Primary Care Provider [phone] Reason for Visit * Reason Onset Date Comments IVABX stop date 08/08/2024 Encounter Details Date Type Department Care Team (Late st Contact Info) Description 08/08/2024 Telephone [facility] INFECTIOUS DISEASE [place] [email or web address] [place] [address] Indio Oliver MD [address] [facility] [address] [place] [address] IVABX stop date Social History [...] for 08-10-24 however per Roger at [facility] labs have not been drawn on this patient. Roger did speak to [employer] and they will going today to draw labs. Per Dr. Oliver he would like to extend out IVABX Cefepime until 08-13-24 so that he canmonitor labs before stopping and removing PICC line. Confirmed orders with Pharmacist Roger. UCTION CLERKS SUPERVISOR documented in this encounter Plan of Treatment Upcoming Encounters Date Type Department Care Team (Late st Contact Info) Description 10/04/2024 10:00 AM PRODUCTION CLERKS SUPERVISOR Office Visit [facility] [address] [facility] [address] [place] [address] Harris Fischer MD [address] [facility] [address] [place] [address] documented as of this encounter Visit Diagnoses Not on filedocumented in this encounter Care Teams Acid Splicer Relationship Specialty Start Date End Date Tracy Olivares MD [address] [place] [address] PCP - General Internal Medicine 07/02/24 documented as of this encounter
--- OUTSIDE RECORDS SUMMARY | 2024-09-07 15:30 | XMS_ITS | Encounter Summary ---
Author Organization [facility] Address [address] [facility] [address] [place] [address] Care Team Providers Care Queen'S Counsel Name Role Phone Omid Douglass MD Primary Care Provider [phone]- [phone] Reason for Visit * Reason Onset Date Comments schedule office visit 02/19/2019 Encounter Details Date Type Department Care Team (Late st Contact Info) Description 02/19/2019 Telephone [facility] Gastroenterology at [address] [place] [phone] Kerry Bustos MA schedule office visit Social History Tobacco Use Types Packs/Day Years Used Date Smoking Tobacco: Never Assessed Comments Unknown Sex and Gender Information Value Date Recorded Sex Assigned at Not on file Legal Sex Female 12:03 AM CLEANER OPERATOR Gender Identity Not on file Sexual Orientation Not on file documented as of this encounter Miscellaneous Notes * Telephone Encounter - Kerry Bustos MA - 02/19/2019 10:15 AM CDT lvm for pt to call back and schedule documented in this encounter Plan of Treatment Not on file documented as of this encounter Visit Diagnoses Not on filedocumented in this encounter Care Teams Queen'S Counsel Relationship Specialty Start Date End Date Omid Douglass MD [address] [place] [address] [place] [address] PCP - General 12/15/11 documented as of this encounter
--- OUTSIDE RECORDS SUMMARY | 2024-09-07 15:30 | XMS_ITS | Clinical Summary ---
Author Organization [facility] Medical Office Building B Address [address] [place] [address] Care Team Providers Care Echocardiography Radiology Technologist Name Role Phone Omid Douglass MD Primary Care Provider [phone] Nathan Baig MD Unavailable [phone] Tracy Olivares MD Unavailable Allergies Active Allergy Reactions Criticality Noted Date Comments Celecoxib Itching Medium 02/22/2024 Propoxyphene Unknown 07/24/2012 Medications albuterol HFA (PROVENTIL HFA,VENTOLIN HFA,PROAIR HFA) 90 mcg/actuation inhaler Inhale 2 puffs every 6 (six) hours as needed 4 Active aspirin 81 mg enteric coated [...] Displacement of peripherally inserted central catheter (PICC) ([facility]) 07/31/2024 Diabetic polyneuropathy asso ciated with diabetes mellitus due to underlying condition ([facility]) 07/31/2024 Metabolic syndrome 07/31/2024 Hypercalcemia 07/31/2024 Transaminitis 07/31/2024 Complication associated with peripherally inserted central catheter (PICC), initial encounter 07/30/2024 Chronic obstructive pulmonary disease 07/14/2024 Assessment & Plan (07/14/2024 2:57 PM CDT): And asthma, both chronic. Continue albuterol 2 puffs q.6 hours p.r.n. wheezing. Asthma 06/27/2024 Benign hypertension 06/27/2024 Assessment & Plan (07/16/2024 1:40 PM INTERIOR SYSTEMS CARPENTER): BP stable. Previously on losartan 100mg, hydrochlorothiazide [...] 06/27/2024 Assessment & Plan (07/23/2024 1:41 PM INTERIOR SYSTEMS CARPENTER): L4-L5 Osteomyelitis/discitis with epidural phlegmon. S/p IR biopsy on 06/28 Path reveals no malignancy and no evidence [...] patches. Assessment & Plan (07/16/2024 1:36 PM INTERIOR SYSTEMS CARPENTER): L4-L5 Osteomyelitis/discitis with epidural phlegmon. S/p IR [...] well controlled. Continue Tyl 1000mg BID, PRN [place] q8h, Increase Gabapentin to 300mg TID, Schedule Flexeril TID, & start Lidoderm patch. Assessment & Plan (07/14/2024 2:58 PM CDT): Subacute, currently stable. Continue cefepime 2 g IV every 12 hours, cyclobenzaprine 10 mg t.i.d. p.r.n. spasm, gabapentin and [place] as scripted. Consult physical and occupational therapy [...] sciatica Assessment & Plan (07/16/2024 1:39 PM INTERIOR SYSTEMS CARPENTER): Increased, SEE ABOVE Encounters Date Type Department Care Team Description 07/30/2024 5:33 PM INTERIOR SYSTEMS CARPENTER - 07/31/2024 12:45 PM [facility]IOR SYSTEMS CARPENTER Emergency [address] [address] Rashi Ingram MD [place], MD Urbano Nguyen Farhanaz, MD Elizondo, Markus Viramontes MD Complication associated with peripherally inserted central catheter (PICC), initial encounter (Primary Dx); Osteomyelitis of lumbar spine (HCC) Discharge Disposition: Discharge to home, home health skilled care 07/25/[address] [address] Jessica Gracia RN 07/24/2024 7:40 PM INTERIOR SYSTEMS CARPENTER - 07/24/2024 8:10 PM INTERIOR SYSTEMS CARPENTER Emergency [address] [address] Discharge Disposition: Left without being seen 07/24/2024 Telephone [facility] Post Acute Care [address] [address] Ethel Feliciano MA SNF Outreach 07/23/2024 NH/SNF Visit [facility] Post Acute Care [address] [address] Mary Trivedi NP Osteomyelitis of lumbar spine (HCC) (Primary Dx); Epidural abscess; 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 sciatica; Discitis of lumbar region 07/16/2024 NH/SNF Visit [facility] Post Acute Care [address] [address] Mary Trivedi NP Osteomyelitis of lumbar spine (HCC) (Primary Dx); Epidural abscess; Discitis of lumbar region; 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 sciatica; Benign hypertension 07/16/2024 Orders Only [facility] [address] [place] [address] Genaro Jaramillo MD 07/11/2024 NH/SNF Visit [facility] Post [address] [address] Genaro Jaramillo MD Osteomyelitis of lumbar spine [...] COPD type (HCC) from Last 3 Months Social History Tobacco Use Types Packs/Day Years [...] on file Legal Sex Female 12:03 AM INTERIOR SYSTEMS CARPENTER Gender Identity Not on file Sexual Orientation Not on file Obstetrics History Last Filed Vital Signs Vital Sign Reading Time Taken Comments Blood Pressure 135/79 07/31/2024 11:32 AM INTERIOR SYSTEMS CARPENTER Pulse 80 07/31/2024 11:32 AM INTERIOR SYSTEMS CARPENTER Temperature 36.8 ??C (98.2 ??F) 07/31/2024 1 1:32 AM INTERIOR SYSTEMS CARPENTER Respiratory Rate 18 07/31/2024 11:3 2 AM INTERIOR SYSTEMS CARPENTER Oxygen Saturation 100% 07/31/2024 11: 32 AM INTERIOR SYSTEMS CARPENTER Inhaled Oxygen Concentration - - Weight 125.8 kg (277 lb 6.4 oz) 024 11:31 PM INTERIOR SYSTEMS CARPENTER Height 167.6 cm (5' 6 ) 07/30/2024 11:3 1 PM INTERIOR SYSTEMS CARPENTER Body Mass Index 44.77 07/30/2024 11:31 PM INTERIOR SYSTEMS CARPENTER Plan of Treatment Health Maintenance Due Date Last Done Comments Albumin Creatinine Ratio, Urine 1955 Breast Cancer Screening-Mammogram 1955 Colon Cancer Screening-Colonoscopy 1955 Depression Screening 1955 Hemoglobin A1C 1955 Hepatitis C Screening 1955 Dilated Eye Exam 1955 Foot Exam 1955 Hepatitis B Screening 1973 Zoster Vaccine (1 of 2) 2005 Well Visit 65+ 2020 Osteoporosis Screening-Bone Density Scan 03/17/2023 03/17/2021 Covid-19 Vaccine (5 - 2023-2 5 season) 2024 06/08/2023, 06/08/2023, 04/28/2022, Additional history exists Lipid Panel 03/23/2025 03/23/2024 eGFR 07/30/2025 07/30/2024, 07/13, 07/16/2024 Fall Risk Assessment 07/31/2025 07/31/2024 DTaP/Tdap/Td Vaccine (2 - Td or Tdap) 07/06/2031 07/06/2021 Pneumococcal vaccine 65+ Completed 022, 03/03/2021, 05/17/2016, Additional history exists Influenza Vaccine Completed 07/10/2024, , 06/15/2022, Additional history exists Procedures Procedure Name Priority Date/Time Associated Diagnosis Comments POCT GLUCOSE DEVICE Routine 07/31/2024 1 1:30 AM INTERIOR SYSTEMS CARPENTER POCT GLUCOSE DEVICE Routine 07/31/2024 7 :30 AM INTERIOR SYSTEMS CARPENTER POCT GLUCOSE DEVICE Routine 07/30/2024 1 1:38 PM INTERIOR SYSTEMS CARPENTER EGFR STAT 07/30/2024 9:24 PM INTERIOR SYSTEMS CARPENTER DIFFERENTIAL AUTO STAT 07/30/2024 9:2 4 PM INTERIOR SYSTEMS CARPENTER APTT STAT 07/30/2024 9:24 PM INTERIOR SYSTEMS CARPENTER PROTIME-INR STAT 07/30/2024 9:24 PM INTERIOR SYSTEMS CARPENTER COMPREHENSIVE METABOLIC PANEL STAT 07/30/2024 9:24 PM INTERIOR SYSTEMS CARPENTER CBC WITH AUTO DIFFERENTIAL STAT 07/30/2024 9:24 PM INTERIOR SYSTEMS CARPENTER XR CHEST 1 VIEW ED 07/30/2024 2:45 PM INTERIOR SYSTEMS CARPENTER EGFR Routine 07/23/2024 5:30 AM INTERIOR SYSTEMS CARPENTER CRP (ACUTE PHASE) Routine 07/23/2024 5:3 0 AM INTERIOR SYSTEMS CARPENTER COMPREHENSIVE METABOLIC PANEL Routine 07/23/2024 5:30 AM INTERIOR SYSTEMS CARPENTER DIFFERENTIAL AUTO Routine 07/23/2024 5:3 0 AM INTERIOR SYSTEMS CARPENTER CBC WITH AUTO DIFFERENTIAL Routine 07/23/2024 5:30 AM INTERIOR SYSTEMS CARPENTER EGFR Routine 07/16/2024 5:56 AM [employer] SYSTEMS CARPENTER COMPREHENSIVE METABOLIC PANEL Routine 07/16/2024 5:56 AM INTERIOR SYSTEMS CARPENTER CBC WITHOUT DIFFERENTIAL Routine 07/16/2024 5:56 AM INTERIOR SYSTEMS CARPENTER from Last 3 Months Results * POCT glucose (07/31/2024 11:30 AM INTERIOR SYSTEMS CARPENTER) Glucose, POC 85 70 - 199 mg/dL Glucose comment 1 Use This Result [facility] Glucose comment 2 RN/MD Notified [facility] Blood 07/31/2024 11:3 0 AM INTERIOR SYSTEMS CARPENTER 07/31/2024 11:30 AM INTERIOR SYSTEMS CARPENTER us Markus Snowden MD LAB POCT ORDERABLES - D EVICE Final Result [facility] [address] [facility] Department [place] [address] * POCT glucose (07/31/2024 7:30 AM INTERIOR SYSTEMS CARPENTER) Glucose, POC 99 70 - 199 mg/dL Glucose comment 1 Use This Result [facility] Glucose comment 2 RN/MD Notified [facility] Blood 07/31/2024 7:30 AM INTERIOR SYSTEMS CARPENTER 07/31/2024 7:30 AM INTERIOR SYSTEMS CARPENTER us Markus Snowden MD LAB POCT ORDERABLES - D EVICE Final Result Performing Organization Address [facility] de Phone Number [address] [address] * POCT glucose (07/30/2024 11:38 PM INTERIOR SYSTEMS CARPENTER) [facility] Glucose, POC 99 70 - 199 mg/dL Glucose comment 1 Use This Result [facility] Glucose comment 2 RN/MD Notified [facility] Blood 07/30/2024 11:3 8 PM INTERIOR SYSTEMS CARPENTER 07/30/2024 11:38 PM INTERIOR SYSTEMS CARPENTER us Sadi Graham MD LAB POCT ORDERABLES - DEVICE Final Result Performing Organization Address [facility] de Phone Number [address] [place] [address] * eGFR (07/30/2024 9:24 PM INTERIOR SYSTEMS CARPENTER) [facility] eGFR >90 >=60 mL/min/1. 73 m2 Comment: [...] of Race in Diagnosing Kidney Disease, JASN 202). The CKD-EPI equation should not be used for patients with unstable renal function and has not been validated in children and those over 70. Current interpretive data was last reviewed 2021. Blood 07/30/2024 9:24 PM INTERIOR SYSTEMS CARPENTER 07/30/2024 9:37 PM INTERIOR SYSTEMS CARPENTER Rashi Ingram MD LAB BLOOD ORDERABLES Final Result [facility] [address] [facility] Department of Laboratories [place], [place] [id number] * Differential, auto (07/30/2024 9:24 PM INTERIOR SYSTEMS CARPENTER) Pathologist [facility] Neutrophil abs 3.4 1.5 - 6.5 K/cumm Imm gran abs 0.0 0.0 - 0.1 K/cumm [facility] Lymphocyte abs 1.5 0.8 - 3.3 K/cumm [facility] Monocyte abs 0.5 0.2 - 0.8 K/cumm [facility] Eosinophil abs 0.4 0.0 - 0.5 K/cumm [facility] Basophil abs 0.1 0.0 - 0.1 K/cumm [facility] Neutrophil pct 58.3 % [facility] Comment: Interpretive Data Percent cell count reference ranges are not reported, since discordance with absolute values may lead to misinterpretation of CBC data. Current Interpretive Data was last revised on 2017. Imm gran pct 0.2 % [facility] Comment: Interpretive Data Percent cell count reference ranges are not reported, since discordance with absolute values may lead to misinterpretation of CBC data. Current Interpretive Data was last revised on 2017. Lymphocyte pct 25.5 % [facility] Comment: Interpretive Data Percent cell count reference ranges are not reported, since discordance with absolute values may lead to misinterpretation of CBC data. Current Interpretive Data was last revised on 2017. Monocyte pct 9.1 % [facility] Comment: Interpretive Data Percent cell count reference ranges are not reported, since discordance with absolute values may lead to misinterpretation of CBC data. Current Interpretive Data was last revised on 2017. Eosinophil pct 6.0 % [facility] Comment: Interpretive Data Percent cell count reference ranges are not reported, since discordance with absolute values may lead to misinterpretation of CBC data. Current Interpretive Data was last revised on 2017. Basophil pct 0.9 % [facility] Comment: Interpretive Data Percent cell count reference ranges are not reported, since discordance with absolute values may lead to misinterpretation of CBC data. Current Interpretive Data was last revised on 2017. Blood 07/30/2024 9:24 PM INTERIOR SYSTEMS CARPENTER 07/30/2024 9:37 PM INTERIOR SYSTEMS CARPENTER us Rashi Ingram MD LAB BLOOD ORDERABLES Final Result [facility] [address] [facility] Department [place] [address] * (ABNORMAL) CBC with auto differential (07/30/2024 9:24 PM INTERIOR SYSTEMS CARPENTER) Pathologist [facility] WBC 5.8 3.8 - 9.9 K/cumm Hgb 12.4 11.9 - 15.5 g/dL [facility] Hct 39.6 35.6 - 45.5 % [facility] Plt 227 150 - 400 K/cumm [facility] MPV 10.5 9.1 - 12.3 fL [facility] RBC 4.45 3.90 - 5.20 M/cumm [facility] MCV 89.0 81.3 - 96.4 fL [facility] MCH 27.9 27.1 - 33.3 pg [facility] MCHC 31.3(L) 32.3 - 35.7 g/dL [facility] RDW CV 15.6(H) 11.1 - 14.9 % [facility] RDW SD 51.0(H) 35.7 - 48.1 fL [facility] NRBC abs 0.00 0.00 - 0.01 K/cumm [facility] Blood 07/30/2024 9:24 PM INTERIOR SYSTEMS CARPENTER 07/30/2024 9:37 PM INTERIOR SYSTEMS CARPENTER us Rashi Ingram MD LAB BLOOD ORDERABLES Final Result Performing Organization Address [facility] Co de Phone Number [facility] [address] [employer] [place] [address] * aPTT (07/30/2024 9:24 PM INTERIOR SYSTEMS CARPENTER) Pathologist [facility] aPTT 32 22 - 37 sec Comment: Interpretive data aPTT test has not been evaluated for monitoring heparin therapy. The anti-Xa is the preferred test. Current interpretive data was last revised on 2019. Blood 07/30/2024 9:24 PM INTERIOR SYSTEMS CARPENTER 07/30/2024 9:37 PM [employer] SYSTEMS [employer]PENTER Rashi Ingram MD LAB BLOOD ORDERABLES Final Result Performing Organization Address [facility] de Phone Number [facility] [address] [address] * Protime-INR (07/30/2024 9:24 PM INTERIOR SYSTEMS CARPENTER) [facility] PT 13.2 12.0 - 14.6 sec INR 1.0 0.9 - 1.2 [facility] Comment: Ref Range High Interpretive data Oral anticoagulant therapeutic ranges: Venous thromboembolism prophylaxis or treatment: 2.0-3.0 CARDIOLOGY Standard range: 2.0-3.0 High-intensity range: 2.5-3.5 Refer to indication-specific guidelines for appropriate target ranges for prosthetic heart valve replacement. Current interpretive data was last revised on 2019. Blood 07/30/2024 9:24 PM INTERIOR SYSTEMS CARPENTER 07/30/2024 9:37 PM [employer] SYSTEMS CARPENTER Rashi Ingram MD LAB BLOOD ORDERABLES Final Result Performing Organization Address [facility] Co de Phone Number [facility] [address] [address] * (ABNORMAL) Comprehensive metabolic panel (07/30/2024 9:24 PM INTERIOR SYSTEMS CARPENTER) Pathologist [facility] Sodium 139 135 - 145 mmol/L Potassium, pl 4.2 3.3 - 4.9 mmol/L [facility] Comment:Hemolyzed; Potassium value may be falsely elevated by as much as 1.0 mmol/L. Suggest redraw and reanalysis. Chloride 102 97 - 110 mmol/L [facility] CO2 26 22 - 32 mmol/L [facility] Anion gap 11 2 - 15 mmol/L [facility] BUN 15 6 - 25 mg/dL [facility] Creatinine 0.60 0.60 - 1.10 mg/dL [facility] Glucose 123 70 - 199 mg/dL [facility] Comment: Interpretive Data Fasting glucose >/= 126 [...] 2022. Calcium 10.5(H) 8.5 - 10.3 mg/dL [facility] Bilirubin, total 0.4 0.1 - 1.2 mg/dL [facility] Protein, pl 7.3 6.5 - 8.5 g/dL [facility] Albumin 3.9 3.5 - 5.0 g/dL [facility] Alk phos 153(H) 40 - 130 Units/L [facility] ALT 19 7 - 45 Units/L [facility] AST 38 10 - 45 Units/L [facility] Comment:Hemolyzed; result ma y be falsely elevated Blood 07/30/2024 9:24 PM [employer] SYSTEMS [employer]PENTER 07/30/2024 9:37 PM [employer] SYSTEMS [employer]PENTER Rashi Ingram MD LAB BLOOD ORDERABLES Final Result [facility] [address] [facility] Department [place] [address] * XR Chest 1 Vw Portable (07/30/2024 2:45 PM INTERIOR SYSTEMS CARPENTER) Anatomical Region Laterality Modality Body, Chest N/A Computed Radiogr aphy 07/30/2024 3:27 PM [employer] SYSTEMS [employer]PENTER Narrative 07/30/2024 3:30 PM INTERIOR SYSTEMS CARPENTER EXAM DESCRIPTION: XR CHEST 1 VIEW REASON [...] D: ??07/30/2024 3:30 PM T: Report ID: [id number] Reading Location: [id number] Procedure Note Radha Terry MD - 07/30/2024 [...] Radha White M.D. FT T: Report ID: [id number] Reading Location: [id number] us Rashi Ingram MD IMG XR PROCEDURES Final Re sult * eGFR (07/23/2024 5:30 AM INTERIOR SYSTEMS CARPENTER) eGFR >90 >=60 mL/min/1. 73 m2 [facility] [...] of Race in Diagnosing Kidney Disease, JASN 202). The CKD-EPI equation should not be used for patients with unstable renal function and has not been validated in children and those over 70. Current interpretive data was last reviewed 2021. [facility], [address] [place] [address]., [address] Blood 07/23/2024 5:30 AM INTERIOR SYSTEMS CARPENTER 07/23/2024 5:54 AM INTERIOR SYSTEMS CARPENTER Mary Trivedi VACUUM TECHNICIAN LAB BLOOD ORDERABLES Final Result [facility] [address] Department [place] [address] * Differential, auto (07/23/2024 5:30 AM INTERIOR SYSTEMS CARPENTER) Neutrophil abs 2.5 1.5 - 6.5 K/cumm [facility] Comment:[address] [address] Imm gran abs 0.0 0.0 - 0.1 K/cumm [facility] Comment:[address] [address] Lymphocyte abs 1.5 0.8 - 3.3 K/cumm [facility] Comment:[address] [address] Monocyte abs 0.5 0.2 - 0.8 K/cumm [facility] Comment:[address] [address] Eosinophil abs 0.3 0.0 - 0.5 K/cumm [facility] Comment:[address] [address] Basophil abs 0.1 0.0 - 0.1 K/cumm [facility] Comment:[address] [address] Neutrophil pct 50.8 % [facility] Comment: Interpretive Data Percent cell count reference ranges are not reported, since discordance with absolute values may lead to misinterpretation of CBC data. Current Interpretive Data was last revised on 2017. [address] [address] Imm gran pct 0.2 % [facility] Comment: Interpretive Data Percent cell count reference ranges are not reported, since discordance with absolute values may lead to misinterpretation of CBC data. Current Interpretive Data was last revised on 2017. [address] [address] Lymphocyte pct 30.7 % [facility] Comment: Interpretive Data Percent cell count reference ranges are not reported, since discordance with absolute values may lead to misinterpretation of CBC data. Current Interpretive Data was last revised on 2017. [address] [address] Monocyte pct 10.6 % [facility] Comment: Interpretive Data Percent cell count reference ranges are not reported, since discordance with absolute values may lead to misinterpretation of CBC data. Current Interpretive Data was last revised on 2017. [address] [address] Eosinophil pct 6.7 % [facility] Comment: Interpretive Data Percent cell count reference ranges are not reported, since discordance with absolute values may lead to misinterpretation of CBC data. Current Interpretive Data was last revised on 2017. [address] [address] Basophil pct 1.0 % [facility] Comment: Interpretive Data Percent cell count reference ranges are not reported, since discordance with absolute values may lead to misinterpretation of CBC data. Current Interpretive Data was last revised on 2017. [address] [address] Blood 07/23/2024 5:30 AM INTER[employer] SYSTEMS CARPENTER 07/23/2024 5:54 AM INTERIOR SYSTEMS CARPENTER us Mary Trivedi VACUUM TECHNICIAN LAB BLOOD ORDERABLES Final Result [facility] [address] Department [place] [address] * (ABNORMAL) CBC with auto differential (07/23/2024 5:30 AM INTERIOR SYSTEMS CARPENTER) WBC 4.9 3.8 - 9.9 K/cumm [facility] Comment:[address] [address] Hgb 11.0(L) 11.9 - 15.5 g/dL [facility] Comment:[address] [address] Hct 35.3(L) 35.6 - 45.5 % [facility] Comment:[address] [address] Plt 247 150 - 400 K/cumm [facility] Comment:[address] [address] MPV 9.9 9.1 - 12.3 fL [facility] Comment:[address] [address] RBC 3.85(L) 3.90 - 5.20 M/cumm [facility] MH Comment:[address] [address] MCV 91.7 81.3 - 96.4 fL [facility] MH Comment:[address], [address] MCH 28.6 27.1 - 33.3 pg [facility] Comment:[address], [address] MCHC 31.2(L) 32.3 - 35.7 g/dL [facility] Comment:[address] [address] RDW CV 15.8(H) 11.1 - 14.9 % [facility] Comment:[address], [address] RDW SD 52.8(H) 35.7 - 48.1 fL [facility] Comment:[address], [address] NRBC abs 0.00 0.00 - 0.01 K/cumm [facility] Comment:[address] [address] Blood 07/23/2024 5:30 AM [employer] SYSTEMS [employer]PENTER 07/23/2024 5:54 AM INTERIOR SYSTEMS CARPENTER us Mary Trivedi VACUUM TECHNICIAN LAB BLOOD ORDERABLES Final Result [facility] [address] [facility] Department [place] [address] * (ABNORMAL) CRP (acute phase) (07/23/2024 5:30 AM INTERIOR SYSTEMS CARPENTER) CRP 29.6(H) <=10.0 mg/L [facility] Comment:[address] [address] Blood 07/23/2024 5:30 AM INTERIOR SYSTEMS CARPENTER 07/23/2024 5:54 AM INTERIOR SYSTEMS CARPENTER Mary Trivedi VACUUM TECHNICIAN LAB BLOOD ORDERABLES Final Result [facility] [address] [facility] Department [place] [address] * (ABNORMAL) Comprehensive metabolic panel (07/23/2024 5:30 AM INTERIOR SYSTEMS CARPENTER) Sodium 140 135 - 145 mmol/L [facility] Comment:[address] [address] Potassium, pl 4.3 3.3 - 4.9 mmol/L [facility] Comment:[address] [address] Chloride 105 97 - 110 mmol/L [facility] Comment:[address] [address] CO2 29 22 - 32 mmol/L [facility] Comment:[address] [address] Anion gap 6 2 - 15 mmol/L [facility] Comment:[address] [address] BUN 18 6 - 25 mg/dL [facility] Comment:[address] [address] Creatinine 0.66 0.60 - 1.10 mg/dL [facility] Comment:[address] [address] Glucose 94 70 - 199 mg/dL [facility] Comment: Interpretive Data Fasting glucose >/= [...] Current interpretive data was last revised 2022. [facility], [address] [place]., [address] Calcium 9.8 8.5 - 10.3 mg/dL [facility] Comment:[facility], [address] [place] [address]., [address] Bilirubin, total 0.3 0.1 - 1.2 mg/dL [facility] Comment:[address], [address] Protein, pl 6.6 6.5 - 8.5 g/dL [facility] Comment:[facility], [address] [place] [address], [address] Albumin 3.4(L) 3.5 - 5.0 g/dL [facility] Comment:[address], [address] Alk phos 152(H) 40 - 130 Units/L [facility] Comment:[address], [address] ALT 19 7 - 45 Units/L [facility] Comment:[address], [address] AST 25 10 - 45 Units/L [facility] Comment:[address], [address] Blood 07/23/2024 5:30 AM INTERIOR SYSTEMS [employer]PENTER 07/23/2024 5:54 AM [employer] SYSTEMS [employer]PENTER us Mary Trivedi VACUUM TECHNICIAN LAB BLOOD ORDERABLES Final Result Performing Organization Address City/State/[facility] Co nv Phone Number [address] Department [place] [address] * eGFR (07/16/2024 5:56 AM INTERIOR SYSTEMS CARPENTER) eGFR >90 >=60 mL/min/1. 73 m2 [facility] [...] Current interpretive data was last reviewed 2021. [facility], [address] [place] [address]., [address] Blood 07/16/2024 5:56 AM INTERIOR SYSTEMS CARPENTER 07/16/2024 6:54 AM INTERIOR SYSTEMS CARPENTER us Genaro Jaramillo MD LAB BLOOD ORDERABLES Final R esult [address] Department [place] [address] * (ABNORMAL) CBC without differential (07/16/2024 5:56 AM INTERIOR SYSTEMS CARPENTER) WBC 5.8 3.8 - 9.9 K/cumm [facility] Comment:[address] [address] Hgb 10.9(L) 11.9 - 15.5 g/dL [facility] Comment:[address] [address] Hct 34.6(L) 35.6 - 45.5 % [facility] Comment:[address] [address] Plt 256 150 - 400 K/cumm [facility] Comment:[address] [address] MPV 10.0 9.1 - 12.3 fL [facility] Comment:[address] [address] RBC 3.76(L) 3.90 - 5.20 M/cumm [facility] Comment:[address] [address] MCV 92.0 81.3 - 96.4 fL [facility] MH Comment:[address], [address] MCH 29.0 27.1 - 33.3 pg [facility] MH Comment:[address], [address] MCHC 31.5(L) 32.3 - 35.7 g/dL [facility] MH Comment:[address], [address] RDW CV 15.7(H) 11.1 - 14.9 % [facility] Comment:[address], [address] RDW SD 52.8(H) 35.7 - 48.1 fL [facility] Comment:[address], [address] NRBC abs 0.00 0.00 - 0.01 K/cumm [facility] Comment:[address], [address] Blood 07/16/2024 5:56 AM INTERIOR SYSTEMS CARPENTER 07/16/2024 6:54 AM INTERIOR SYSTEMS CARPENTER us Gnearo Jaramillo MD LAB BLOOD ORDERABLES Final R esult [facility] [address] [facility] Department [place] [address] * (ABNORMAL) Comprehensive metabolic panel (07/16/2024 5:56 AM INTERIOR SYSTEMS CARPENTER) Sodium 140 135 - 145 mmol/L [facility] APARICIO Comment:[address] [address] Potassium, pl 4.0 3.3 - 4.9 mmol/L [facility] Comment:[address], [address] Chloride 105 97 - 110 mmol/L [facility] Comment:[address] [address] CO2 28 22 - 32 mmol/L [facility] Comment:[address] [address] Anion gap 7 2 - 15 mmol/L [facility] Comment:[address] [address] BUN 13 6 - 25 mg/dL [facility] Comment:[address] [address] Creatinine 0.66 0.60 - 1.10 mg/dL [facility] Comment:[address] [address] Glucose 90 70 - 199 mg/dL [facility] Comment: Interpretive Data Fasting glucose >/= 126 [...] Current interpretive data was last revised 2022. [facility], [address] [place]., [address] Calcium 9.5 8.5 - 10.3 mg/dL [facility] Comment:[address] [address] Bilirubin, total 0.3 0.1 - 1.2 mg/dL [facility] Comment:[address] [address] Protein, pl 6.6 6.5 - 8.5 g/dL [facility] Comment:[address] [address] Albumin 3.5 3.5 - 5.0 g/dL [facility] Comment:[address] [address] Alk phos 141(H) 40 - 130 Units/L [facility] Comment:[address], [address] ALT 14 7 - 45 Units/L [facility] Comment:[address] [place]., [address] AST 15 10 - 45 Units/L [facility] ALESSANDRA Comment:[facility], [address] [place] [address]., [address] Blood 07/16/2024 5:56 AM INTERIOR SYSTEMS CARPENTER 07/16/2024 6:54 AM INTERIOR SYSTEMS CARPENTER us Genaro Jaramillo MD LAB BLOOD ORDERABLES Final R esult [facility] [address] [facility] Department [place] [address] from Last 3 Months Insurance [address] [place] [address] General Assembly CHOICE PPO E [address] [place] [address] General Assembly CHOICE PPO Advance Directives For more information, please contact: [phone] * Full Code (Latest Code Status on File) Date Activated Date Inactivated Comments 07/30/2024 11:54 PM 07/31/2024 4:45 PM Care Teams Echocardiography Radiology Technologist Relationship Specialty Start Date End Date Omid Douglass MD [facility] [place] [address] PCP - General 12/15/11 Nathan Baig MD [address] [address] Pulmonary Disease 08/15/24 Tracy Olivares MD [address] [facility] [address] [place], [place] [id number] Internal Medicine 08/15/24
--- OUTSIDE RECORDS SUMMARY | 2024-09-07 15:31 | XMS_ITS ---
Author Name Karina SHIRLEY, MRS. Schreiber npal Address [address] [place] [address] Phone [phone] Organization [facility] [facility] Care Team Providers Care [employer] Pe Teacher Name Role Phone Gilbert Collins Unavailable [phone] [facility] Home Tier 1 RN (STL), Arlette loving Unavailable Prim[facility] Home CHW (STL), Amara Lorenzo Unavailable Unavailable VINICIUS PA Unavailable [phone] Reason for Referral Not Available Allergies, adverse [...] times per day 2024-06-18 No Data Available [employer] blood glucose monitoring system 0 Use as [...] 125.19 kgBody Mass Index (BMI) - 43.88 kg/z4Wavxd Rate - 91.0 /minBody Temperature - 36.22 [...] least 75 minutes total time on encounte [address] 2024-06-19 No Data Available No Data Availa [...] (03/2024)continue JardianceFreestyle Lite glucometer rx placed to meat pickler OTCencouraged exercising as tolerateddiscussed eating healthy mealsdrink [...] not attend ing meetings; has membership to [employer] but does not go. She is not [...]
== END 2024-08-29 12:27 | disposition home or self-care (01) ==
PROVIDERS: Emergency Provider Physician Assistant; PCP Internal Medicine
DX: R74.8 Abnormal levels of other serum enzymes (principal); I10 Essential (primary) hypertension; K21.9 Gastro-esophageal reflux disease without esophagitis; J44.9 Chronic obstructive pulmonary disease, unspecified; E66.01 Morbid (severe) obesity due to excess calories; Z68.42 Body mass index [BMI] 45.0-49.9, adult; G47.33 Obstructive sleep apnea (adult) (pediatric); Z99.89 Dependence on other enabling machines and devices; F41.8 Other specified anxiety disorders; E11.9 Type 2 diabetes mellitus without complications; J45.909 Unspecified asthma, uncomplicated; Z87.891 Personal history of nicotine dependence
CPT/HCPCS: 36415; 80053; 81003; 82550; 83735; 85025; 93005; 99283

== ENCOUNTER 2024-11-23 12:54 | Emergency (ER) | payer OTHER, SELFPAY ==
[2024-11-23 13:05] VITALS: BP 148/98; PULSE 95; RESP 16; TEMP 37.1; O2SAT 100
[2024-11-23 13:29] LABS: EDCOVIDSCREEN Negative (Negative); EDINFLUASCREEN Positive (Negative); EDINFLUBSCREEN Negative (Negative)
--- NOTE | 2024-11-23 13:44 | ED_ITS ---
HPI - URI/Sore Throat General Chief Complaint: Upper Respiratory Infection Stated Complaint: SINUS CONGESTION/HEADACHE/EARS/SORE THROAT Time Seen by Provider: 11/23/24 12:55 Source: patient Mode of arrival: ambulatory Limitations: no limitations History of Present Illness HPI Narrative: Patient is a 69-year-old female who presents with 3 days of sinus congestion, headache, ear fullness, sore throat, body aches and chills. Denies any fever, nausea, vomiting, diarrhea. No known exposures Related Data Home Medications ?Medication ?Instructions ?Recorded ?Confirmed ?Last Taken ?Type aspirin 81 mg tablet,delayed 81 mg PO DAILY 10/29/19 10/22/24 Unknown History release fluticasone fur. 100 mcg-umeclid 100 inh inhalation DAILY 01/06/21 10/22/24 Unknown History 62.5 mcg-vilant 25 mcg inhalat.powder (Trelegy Ellipta) losartan 100 12.5 tablet PO DAILY 01/06/21 10/22/24 Unknown History mg-hydrochlorothiazide 12.5 mg tablet albuterol sulfate 90 mcg/actuation 2 puff inhalation PRN 05/16/21 10/22/24 Unknown History aerosol inhaler atorvastatin 20 mg tablet 20 mg PO DAILY 08/23/23 10/22/24 Unknown History cholecalciferol (vitamin D3) 50 50 mcg PO DAILY 08/23/23 10/22/24 Unknown History mcg (2,000 unit) capsule azelastine 137 mcg (0.1 %) nasal 137 mcg intranasal Q12H 12/15/23 10/22/24 Un known History spray empagliflozin 25 mg tablet 25 mg PO DAILY 12/15/23 10/22/24 Unknown History (Jardiance) fluticasone propionate 50 1 spray intranasal DAILY 12/15/23 10/22/24 Unknown History mcg/actuation nasal spray,suspension (Children's Flonase Allergy Relief) gabapentin 300 mg capsule 300 mg PO BID 02/28/24 10/22/24 Unknown History esomeprazole magnesium 40 mg mg 11/23/24 Unknown History capsule,delayed release hydrocodone 5 mg-acetaminophen 325 tablet 11/23/24 Unknown History mg tablet mirabegron 50 mg tablet,extended mg PO 11/23/24 Unknown History release 24 hr Allergies Allergy/AdvReac Type Severity Reaction Status Date / Time meloxicam Allergy Intermediate Itching Verified 11/23/24 12:56 celecoxib (From Celebrex) Allergy Mild itching Verified 11/23/24 12:56 Review of Systems Review of Systems: All systems reviewed & are unremarkable except as noted in HPI and below Constitutional: Constitutional: Reports chills, Denies fatigue, Denies fever(s), Reports headache(s), Denies malaise and Denies weakness Eyes: Eyes: Denies blurry vision, Denies itchy eyes and Denies loss of vision ENT: Denies otalgia, Reports headache(s), Reports nasal congestion, Denies sinus pain and Reports sore throat Cardiovascular: Cardiovascular: Denies chest pain, Denies irregular heart rhythm and Denies dyspnea Respiratory: Respiratory: Denies cough and Denies dyspnea Gastrointestinal: Gastrointestinal: Denies abdominal pain, Denies diarrhea, Denies nausea and Denies vomiting Musculoskeletal: Musculoskeletal: Denies back pain, Reports myalgias and Denies arthralgias Integumentary/Breasts: Skin/Breast: Denies pruritus and Denies rash Neurologic: Reports headache(s), Denies loss of vision and Denies weakness Psychiatric: Psychiatric: Reports no additional psychiatric complaints Endocrine: Endocrine: Denies fatigue Allergic/Immunologic: Allergic/Immunologic: Denies itchy eyes PMFSH Past Medical History Medical History Constipation Sciatica Arthritis, lumbar spine Colon cancer screening Epigastric pain FAISAL treated with BiPAP Shingles Anemia Depression Anxiety DM (diabetes mellitus) Bilateral carpal tunnel syndrome DDD (degenerative disc disease) Arthritis Endometriosis IBS (irritable bowel syndrome) History of rectal polyps GERD (gastroesophageal reflux disease) Bronchitis Asthma Emphysema, unspecified H/O: HTN (hypertension) History of irregular heartbeat MVP (mitral valve prolapse) Surgical History Surgical History History of local excision of skin lesion History of bilateral carpal tunnel release History of oophorectomy Rt. History of dilation and curettage History of hysterectomy Hx of tubal ligation History of cholecystectomy History of appendectomy Family History Family History Father Malignant neoplasm of prostate Mother Hypertension Diabetes mellitus Sibling Family history of elevated blood lipids Family history of diabetes mellitus in first degree relative Father Family history of diabetes mellitus in first degree relative Patient's father is Other Family history of malignant neoplasm of cervix Family history of malignant neoplasm of male breast Social History Social History Social History: the patient is . The patient initially had 5 children but 1 14 hours after due to placenta abruption. The patient is disabled. 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 She would like to be a full code. The patient used marijuana in the past but does not anymore and she used to smoke cigarettes as well but quit. She does not use any alcohol or illicit drugs. Smoking packs per day: 2 Smoking cigarettes per day: 40.0 Years smoked: 30 Smoking pack-years: 60.00 Smoking status: Former smoker Second hand tobacco smoke exposure: Yes Alcohol intake: never Substance use: never Substance use type: does not use Do You Feel Safe in your Home?: Yes Lack of Transportation: No Lack of Food: Never True Current Housing: I Have Housing Concerned About Future Housing: No Difficulty Paying Gas/Electric Bills: No Difficulty Paying for Meds: YES Currently Unemployed: No Education: Decline to Answer Difficulty w/ Childcare or Family Care: No Living arrangements: alone Occupation/Education: retired Gender identity (if verbalized by the patient): Female Sexual Orientation (if Verbalized by the Patient): Straight or Heterosexual Spiritual care concerns: No Comments At time of signature, agree with nursing past medical, surgical, social and family history. There is no relevant family history pertinent to the presenting complaint. Exam Const: General: cooperative, healthy appearing, comfortable, no acute distress and well nourished Nutritional Appearance: well nourished Orientation/consciousness: patient oriented x3 Limitations: no limitations HENMT: Head: normal to inspection, normocephalic and atraumatic Ears: hearing grossly normal bilaterally, external ears normal, TM's normal bilaterally, EAC's normal and no periauricular adenopathy Face/Nose/Sinus: Normal external nose present, Abnormal mucous membranes and turbinates present erythematous bilateral and diffuse, normal facial exam, sinuses nontender and face symmetric Face and sinus: normal facial exam, sinuses nontender and face symmetric Mouth: Yes Normal oral and palatal mucosa present, Yes lip normal, Yes tongue normal, Yes Normal salivary glands and ducts present, Yes oropharynx normal and Yes moist mucous membranes Teeth and gingiva: dentition normal Throat: posterior oropharynx normal, tonsils normal and uvula midline Eyes: General: appearance normal, both eyes and all related structures Alignment and Position: alignment normal and position normal Periorbital: periorbital findings normal Eyelids: eyelids normal Pupils: Equal, round and reactive pupils present Neck: Neck: normal visual inspection, full ROM, no lymphadenopathy and supple Chest: Chest palpation & inspection: normal inspection of the chest and normal palpation of entire chest wall Resp: Effort & Inspection: normal respiratory effort and able to speak in complete sentences Auscultation: clear to auscultation bilaterally, no crackles, no rales, no rhonchi and no wheezes Cardio: Rate: regular rate Rhythm: regular rhythm Heart sounds: S1 kate l heart sound present and S2 normal heart sound present GI: Inspection: normal to inspection Skin: General skin exam: normal color and no rashes or lesions noted Neuro: General: patient oriented x3 and moves all extremities Cranial nerves: Yes Equal, round and reactive pupils present Speech: normal speech Gait exam (Neuro): Normal gait present Extrem: General: normal to inspection, full ROM and no edema Psych: Appearance: grossly normal and well kempt Mental Status: mental status grossly normal Speech and movement: Normal speech and movement present Affect: normal affect Attitude: cooperative Thought process: Normal thought process present Course Course Emergency Course: Discharge instructions reviewed with patient, as well as provided in writing per nursing staff. The instructions also include specific and strict return/GO TO THE ER as well as f/u information. All questions have been answered, and the patient deny any further questions with discharge and discharge plan. Portions of this record may have been created with voice recognition software Level of Care: Express Care Visit Vital Signs Vital signs: Vital Signs Temperature 37.1 C 11/23/24 13:05 Pulse Rate 95 11/23/24 13:05 Respiratory Rate 16 11/23/24 13:05 Blood Pressure 148/98 H 11/23/24 13:05 Pulse Oximetry 100 11/23/24 13:05 Temperature 37.1 C 11/23/24 13:05 Pulse Rate 95 11/23/24 13:05 Respiratory Rate 16 11/23/24 13:05 Blood Pressure 148/98 H 11/23/24 13:05 Pulse Oximetry 100 11/23/24 13:05 Reviewed MDM - URI/Sore Throat MDM Narrative Medical decision making narrative: Pt well hydrated appearing, in no respiratory distress, hemodynamically stable. Recommend supportive care. The patient is stable at time of discharge the clinical impression was discussed and the patient was given the opportunity to ask questions, which were addressed as completely as possible given the information available at present. Anticipatory guidance and return to care precautions were discussed and the importance of primary care follow-up was stressed and encouraged. The patient voiced understanding of the plan, foster cations to return, and the need for follow-up. Differential diagnosis considered: Bronchitis, Dai virus, strep pharyngitis, allergic rhinitis, upper respiratory tract infection, sinusitis, rhinosinusitis, nasopharyngitis. viral pharyngitis, otitis media, otitis externa, otitis effusion, foreign body, cerumen impaction, viral syndrome, and influenza.? Exam findings show no acute concerns or changes; patient is non-toxic appearing and is in no distress.? Patient is appropriate for outpatient treatment and follow- up.? Medical Records Attestation: I reviewed the patient's medical records. Lab Data Attestation: I reviewed the patient's lab results. Labs: Lab Results 11/23/24 Range/Units 13:27 POC Influenza A Ag Positive (Negative) POC Influenza B Ag Negative (Negative) POC SARS CoV-2 Ag Negative (Negative) Discharge Plan Discharge Clinical Impression: Influenza Patient Disposition: Home, Self-Care Condition: Stable Instructions: Influenza (ED) Additional Instructions: Were positive for influenza A. Your Covid is negative Your symptoms are due to a viral illness, which is not treated with antibiotics. Viral symptoms can be present for up to a few weeks. -For fever/pain, you may take: Tylenol 650-1000mg by mouth every 4-6 hours. Do not exceed 4000mg in 24 hours. 8 AM: Tylenol 2 PM: Tylenol 8 PM: Tylenol 2 AM: Tylenol -Antihistamine medication such as Benadryl/Zyrtec at night and Claritin/Laurel during the day can help improve symptoms. -Use Flonase twice a day for 5 days then daily to help reduce the inflammation and dry up your sinuses. -You can also use Sudafed behind the pharmacy counter(12 or 24 hour). Be sure to drink plenty of water with these medications at least 8 ounces with every dose and it is important to drink 8 to 10 glasses of water per day. Water is a natural decongestant -Eat and drink things that are easy to swallow, like tea or soup, or popsicles. -Oral rinses such as: Salt water gargles and/or may use topical anesthetic (eg. Chloraseptic spray) or lozenges to relieve dryness or throat pain). -Frequent hand washing or hand pill coater is one of the best ways to prevent spread of infection. -Using a vaporizer or humidifier at night will also help thin secretions and help with coughing up phlegm. -Follow up with primary care provider in 3-5 days if condition is not improving - For new or worsening symptoms go directly to the nearest ER Your blood pressure was elevated above 120/80 today at Urgent Care. This puts you above the threshold for follow up visit with a primary care provider. High blood pressure does not usually cause any symptoms, however it may lead to kidney failure, stroke, heart disease just to name a few if untreated . Many people are anxious when seeing a provider or nurse. As a result, you are not diagnosed with hypertension at this time unless your blood pressure is persistently high at two office visits at least one week apart. Some things that can help lower blood pressure are lifestyle modifications, such as light exercise, decreased salt in diet, and weight loss. It is important to follow up with a PCP about this within 1 week. Patient Language: Montenegrin Prescriptions: New benzonatate 100 mg capsule 100 mg PO BID PRN (Reason: cough) Qty: 14 0RF fluticasone propionate [Flonase Allergy Relief] 50 mcg/actuation spray,suspension 1 spray intranasal DAILY Qty: 16 0RF Rx Instructions: administer into each nostril No Action aspirin 81 mg Tablet,Delayed Release (Dr/Ec) 81 mg PO DAILY albuterol sulfate 90 mcg/actuation HFA aerosol inhaler 2 puff INHALATION PRN atorvastatin 20 mg tablet 20 mg PO DAILY cholecalciferol (vitamin D3) 50 mcg (2,000 unit) capsule 50 mcg PO DAILY hydrocodone-acetaminophen 5-325 mg tablet esomeprazole magnesium 40 mg capsule,delayed release(DR/EC) mirabegron 50 mg tablet extended release 24 hr PO Linzess 72 mcg capsule 72 mcg PO DAILY 30 Days Qty: 30 5RF famotidine 20 mg tablet 60 mg PO DAILY 30 Days Qty: 90 11RF Rx Instructions: take one tablet in the morning and two tablets in the evening azelastine 137 mcg (0.1 %) aerosol,spray 137 mcg intranasal Q12H Rx Instructions: administer into each nostril fluticasone propionate [Children's Flonase Allergy Rlf] 50 mcg/actuation spr ay,suspension 1 spray intranasal DAILY Rx Instructions: administer into each nostril Jardiance 25 mg tablet 25 mg PO DAILY gabapentin 300 mg capsule 300 mg PO BID acetaminophen 500 mg capsule 500 mg PO Q6H PRN (Reason: pain) Qty: 20 0RF losartan-hydrochlorothiazide 100-12.5 mg tablet 12.5 tablet PO DAILY Trelegy Ellipta 100-62.5-25 mcg blister with device 100 inh INHALATION DAILY Follow-up/Referrals: Elise,MD Tracy [Primary Care Provider] - 3 Days Time of Disposition: 13:45
== END 2024-11-23 13:49 | disposition home or self-care (01) ==
PROVIDERS: Emergency Provider Nurse Practitioner Family; PCP Internal Medicine
DX: J10.1 Influenza due to other identified influenza virus with other respiratory manifestations (principal); Z20.822 Contact with and (suspected) exposure to COVID-19; Z87.891 Personal history of nicotine dependence; G47.33 Obstructive sleep apnea (adult) (pediatric); E11.9 Type 2 diabetes mellitus without complications; Z79.84 Long term (current) use of oral hypoglycemic drugs; N80.9 Endometriosis, unspecified; K21.9 Gastro-esophageal reflux disease without esophagitis; J45.909 Unspecified asthma, uncomplicated; I10 Essential (primary) hypertension; I34.1 Nonrheumatic mitral (valve) prolapse; M47.816 Spondylosis without myelopathy or radiculopathy, lumbar region; Z79.82 Long term (current) use of aspirin
CPT/HCPCS: 87426; 87804; 99213; G0463

== ENCOUNTER 2025-01-10 09:55 | Outpatient (CLI) | payer OTHER, SELFPAY ==
--- NOTE | ~2025-01-10 | MR_ITS ---
MRI of the lumbar spine Clinical History: Back pain Technique: Axial T2-weighted images, and sagittal T1-weighted, T2-weighted, and T2 fat-sat images wer e acquired. Findings: No acute fracture identified. There is 4.5 mm anterolisthesis of L4 over L5. There is no ospina spicious bone marrow signal abnormality. At L1-L2, there is mild disc bulge with moderate to advanced facet arthropathy. There is minimal cent ral canal stenosis. There is mild bilateral neural foraminal narrowing. At L2-L3, there is diffuse disc bulge with severe facet arthropathy. There is moderate to severe spin al canal stenosis/thecal sac compression. There is moderate bilateral neural foraminal narrowing. At L3-L4, there is diffuse disc bulge and severe facet arthropathy resulting in moderate to severe sp inal canal stenosis/thecal sac compression. There is moderate to advanced bilateral neural foraminal narrowing. At L4-L5, there is severe degenerative disc narrowing with diffuse disc bulge and severe facet arthro jeevan. There is severe spinal canal stenosis/thecal sac compression and severe bilateral neuroforamin al, redness. At L5-S1, there is no disc bulge or herniation. No spinal canal stenosis or neural foraminal narrowin g. Paravertebral soft tissues are unremarkable. Impression: Severe degenerative spondylosis at L2-L3, L3-L4, and L4-L5, as detailed above. 4.5 mm anterolisthesis of L4 over L5. Reviewed, dictated and finalized at [facility]. Impression: Severe degenerative spondylosis at L2-L3, L3-L4, and L4-L5, as detailed above. 4.5 mm anterolisthesis of L4 over L5.
== END 2025-01-10 09:56 | disposition home or self-care (01) ==
LOC: MICIMG 10:10
PROVIDERS: PCP Internal Medicine; Visit Provider Nurse Practitioner Family
DX: M47.896 Other spondylosis, lumbar region (principal)
CPT/HCPCS: 72148

== ENCOUNTER 2025-04-14 10:36 | Emergency (ER) | payer OTHER, MEDICAID, SELFPAY ==
--- NOTE | ~2025-04-14 | CT_ITS ---
EXAMINATION: CT abdomen pelvis wo con DATE: 04/14/2025 14:34 INDICATION: right groin pain TECHNIQUE: Computed tomography (CT) of the abdomen and pelvis was performed without intravenous contr ast. Automated exposure control and iterative reconstruction technique were employed. The dose-length product was 1506.20 mGy-cm. COMPARISON: 08/07/2022. FINDINGS: Lower thorax: Small right lower lobe air cyst. Calcified right lower lobe granuloma. Minimal right mi ddle lobe atelectasis. Small volume pericardial fluid. Liver: Subcentimeter right lobe hypodensity, likely hemangioma or cyst. Biliary/Gallbladder: Gallbladder is absent. No bile duct dilation. Pancreas: No mass or duct dilation. Spleen: Granulomatous calcifications. Adrenals:No mass. Kidneys: No suspicious mass, obstructing stone, or hydronephrosis. GI tract: Small hiatal hernia. No small or large bowel dilation. Appendix not confidently visualized. Mesentery/Peritoneum: No ascites, mass, or free air. Retroperitoneum: No mass. Pelvis: Nearly empty urinary bladder. Absent uterus. Atrophic bilateral ovaries.. Soft Tissues: 12.9 cm lipoma in the proximal right hip. Small uncomplicated fat-containing umbilical hernia. Bones: No acute osseous finding. IMPRESSION: Trace pericardial effusion. Polypoid centimeters lipoma in the proximal right hip, recommend surgical referral for potential exci kathie based on size. Reviewed, dictated and finalized at location K. IMPRESSION: Trace pericardial effusion. Polypoid centimeters lipoma in the proximal right hip, recommend surgical refer ral for potential excision based on size.
--- OUTSIDE RECORDS SUMMARY | 2025-04-14 10:38 | XMS_ITS | Encounter Summary ---
Author Organization [facility] Address [address] [place] [address] Care Team Providers Care Needle Molder Name Role Phone Tracy Olivares MD Primary Care Provider [phone] Nathan Baig MD Unavailable [phone] Marisel Mancini RN Unavailable [phone] Encounter Details Date Type Department Care Team (Latest Contact Info) Description 12/16/2023 [employer] Message Enc [facility] - [place] [address] [facility] [address] [place] [address] Stephanie, [facility] Provider referral to rheumatology Social History [...] Information Value Date Recorded Sex Assigned at Female 11/14/2024 10:21 AM RENEWABLE ENERGY DIVISION MANAGER Legal Sex Female 8:25 PM CDT Gender Identity Female 11/14/2024 10:21 AM RENEWABLE ENERGY DIVISION MANAGER Sexual Orientation Straight 11/14/2024 10 :21 AM RENEWABLE ENERGY DIVISION MANAGER documented as of this encounter Plan of Treatment Upcoming Encounters Date Type Department Care Team (Late st Contact Info) Description 05/29/2025 11:00 AM CDT Office Visit [facility] Medical [facility] Pul[facility] [place] [address] [facility] [address] [place] [address] Nathan Baig MD [address] [address] 07/24/2025 10:40 AM RENEWABLE ENERGY DIVISION MANAGER Office Visit [facility] Multispecialty Care - [place] [address] [address] [place] [address] Tracy Olivares MD [address] [place] [address] documented as of this encounter Visit Diagnoses Not on filedocumented in this encounter Additional Health Concerns Assessment Noted Time PHQ-9 Depression Total Score: 2 09/14/19 24 11:30 AM RENEWABLE ENERGY DIVISION MANAGER documented as of this encounter Care Teams Needle Molder Relationship Specialty Start Date End Date Tracy Olivares MD [address] [place] [address] PCP - General INTERNAL MEDICINE 01/02/21 Nathan Baig MD [address] [address] Consulting Physician Internal Medicine Pulmonary Disease 09/16/21 Marisel Mancini, RN [address] [place] [address] Monorail Operator (Ambulatory) REGISTERED NURSE 06/28/24 08/07/24 documented as of this encounter
--- OUTSIDE RECORDS SUMMARY | 2025-04-14 10:38 | XMS_ITS | Clinical Summary ---
Author Organization [facility] Address [address] [place] [address] Phone Care Team Providers Care Double Needle Operator Name Role Phone Tracy Olivares MD Primary Care Provider [phone] Allergies Active Allergy Reactions Criticality Noted Date Comments Celecoxib Itching Medium 06/27/2024 Medications pantoprazole (PROTONIX) 40 mg Tablet, Delayed Release [...] mouth 1 time daily as needed for Constipation . 07/02/2024 Active sennosides-docu sate sodium (SENNA-S) 8.6-50 mg tablet Take 1 Tablet by mouth 2 times daily as needed for Constipation . 07/02/2024 Active famotidine (PEPCID) 20 mg tablet Take one tablet two times daily as needed for heart burn. 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 Encounters Date Type Department Care Team Description 03/27/2025 External Device Data ST[facility] ABSTRACTION Provider, Abstract 03/26/2025 External Device Data [facility] ABSTRACTION Provider, Abstract 02/26/2025 External Device Data [facility] ABSTRACTION Provider, Abstract 02/12/2025 External Device Data [facility] ABSTRACTION Provider, Abstract 02/05/2025 External Device Data [facility] ABSTRACTION Provider, Abstract 01/15/2025 External Device Data [facility] ABSTRACTION Provider, Abstract from Last 3 Months Immunizations Immunization Administration Dates Next Due (PREVNAR 20)(6 WKS UP) PNEUM OCOCCAL CONJUGATE VACCINE 20-VALENT (PCV20), POLYSACCHARIDE [id number] CONJUGATE, ADJUVANT 0.5 ML (PF) IM 07/10/2024 INFLUENZA VACCINE HIGH DOSE TRIVALENT SPLIT VIRUS, (65 YR UP), 0.5ML (PF), IM 07/10/2024 Social History Tobacco Use Types Packs/Day Years Used Date Smoking Tobacco: Former Cigarettes Tobacco Cessation:Counseling Given: Not Answered Comments Unknown Sex and Gender Information Value Date Recorded Sex Assigned at Not on file Legal Sex Female 9:45 PM CDT Gender Identity Not on file Sexual Orientation Not on file Last Filed Vital Signs Vital Sign Reading Time Taken Comments Blood Pressure 122/82 10/04/2024 10:05 AM WOMEN'S LACROSSE COACH Pulse 62 10/04/2024 10:05 AM WOMEN'S LACROSSE COACH Temperature 36.8 C (98.2 F) 07/10/2024 11:59 AM CDT Respiratory Rate 18 07/10/2024 11:59 AM CDT Oxygen Saturation 96% 10/04/2024 10:05 AM WOMEN'S LACROSSE COACH Inhaled Oxygen Concentration - - Weight 121.6 kg (268 lb) 10/04/2024 10:05 AM WOMEN'S LACROSSE COACH Height 167.6 cm (5' 6) 10/04/2024 10:05 AM WOMEN'S LACROSSE COACH Body Mass Index 43.26 10/04/2024 10:05 AM WOMEN'S LACROSSE COACH Plan of Treatment Health Maintenance Due Date [...] 60-74 years 1-dose series) 2015 COVID-19 Vaccine (5 - 2023-2 5 season) 2024 06/08/2023, 04/28/2022, 12/30/2020, Additional history exists DIABETES HBA1C Q 6 MONTHS 09/23/2024 03/23/2024 INFLUENZA VACCINE (#1) 2025 , 06/08/2023, 06/16/2022, Additional history exists OSTEOPOROSIS SCREENING 03/17/2026 03/17/2021, 2020 COLORECTAL SCREENING 05/26/2030 05/26/2020 Colorectal Cancer Screening 05/26/2030 DTAP/TDAP/TD VACCINES (2 - T d or Tdap) 07/06/2031 07/06/2021 PNEUMOCOCCAL VACCINE 50+ YEARS Completed 1 , 04/02/2022, 03/03/2021, Additional history exists Insurance [facility] PPO MCR Advance Directives For more information, please contact: [phone] * Full Code (Latest Code Status on File) Date Activated Date Inactivated Comments 06/28/2024 11:06 AM 07/10/2024 3:01 PM * Full Code Date Activated Date Inactivated Comments 06/27/2024 6:03 AM 06/28/2024 11:06 AM * Default Full Code - Needs Discussion Date Activated Date Inactivated Comments 06/27/2024 1:09 AM 06/27/2024 6:03 AM Care Teams Double Needle Operator Relationship Specialty Start Date End Date Tracy Olivares MD [address] [facility] [address] [place] [address] PCP - General Internal Medicine 07/02/24
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
--- OUTSIDE RECORDS SUMMARY | 2025-04-14 10:38 | XMS_ITS | Encounter Summary ---
Author Organization [facility] Address [address] [place] [address] Care Team Providers Care Proof Carrier Name Role Phone Tracy Olivares MD Primary Care Provider Nathan Baig MD Unavailable [phone] Marisel Mancini RN Unavailable [phone] Encounter Details Date Type Department Care Team (Late st Contact Info) Description 04/04/2023 Therapy Plan [facility] Physical Therapy [address] [place] [address] Ly Collado, [place] [address] Social History Tobacco Use Types Packs/Day Years [...] Sex Assigned at Female 11/14/2024 10:21 AM DIVER HELPER Legal Sex Female 8:25 PM CDT Gender Identity Female 11/14/2024 10:21 AM DIVER HELPER Sexual Orientation Straight 11/14/2024 10 :21 AM DIVER HELPER documented as of this encounter Plan of Treatment Upcoming Encounters Date Type Department Care Team (Late st Contact Info) Description 05/29/2025 11:00 AM CDT Office Visit [facility] - [address] [address] Nathan Baig MD 3 [facility] [address] [place] [address] 07/24/2025 10:40 AM DIVER HELPER Office Visit [facility] Multispecialty Care - [place] [address] [address] [place] [address] Tracy Olivares MD [address] [place] [address] documented as of this encounter Visit Diagnoses Not on filedocumented in this encounter Additional Health Concerns Assessment Noted Time PHQ-9 Depression Total Score: 11 023 1:30 PM CDT documented as of this encounter Care Teams Proof Carrier Relationship Specialty Start Date End Date Tracy Olivares MD [address] [place] [address] PCP - General INTERNAL MEDICINE 01/02/21 Nathan Baig MD 3 [facility] [address] [place] [address] Consulting Physician Internal Medicine Pulmonary Disease 09/16/21 Marisel Mancini, RN [address] [place], [place] [id number] Banbury Mixer Operator (Ambulatory) REGISTERED NURSE 06/28/24 08/07/24 documented as of this encounter
--- OUTSIDE RECORDS SUMMARY | 2025-04-14 10:38 | XMS_ITS | Encounter Summary ---
Author Organization [facility] Address [address] [place] [address] Care Team Providers Care Mold Injector Name Role Phone Tracy Olivares MD Primary Care Provider [phone] Nathan Baig MD Unavailable [phone] Marisel Mancini RN Unavailable [phone] Encounter Details Date Type Department Care Team (Late st Contact Info) Description 02/08/2024 Pricelinet Message Enc [facility] Care - [place] [address] [facility] [address] [place] [address] Stephanie, [facility] Provider Xray results Social History Tobacco Use [...] Sex Assigned at Female 11/14/2024 10:21 AM RETAIL MORTGAGE BANKER Legal Sex Female 8:25 PM CDT Gender Identity Female 11/14/2024 10:21 AM RETAIL MORTGAGE BANKER Sexual Orientation Straight 11/14/2024 10 :21 AM RETAIL MORTGAGE BANKER documented as of this encounter Plan of Treatment Upcoming Encounters Date Type Department Care Team (Late st Contact Info) Description 05/29/2025 11:00 AM CDT Office Visit [facility] Medical [facility] - [place] [address] [address] [facility] [address] [place] [address] Nathan Baig MD [address] [address] 07/24/2025 10:40 AM RETAIL MORTGAGE BANKER Office Visit [facility] Multispecialty Care - [place] [address] [address] [place] [address] Tracy Olivares MD [facility] [address] [address] documented as of this encounter Visit Diagnoses Not on filedocumented in this encounter Additional Health Concerns Assessment Noted Time PHQ-9 Depression Total Score: 2 09/14/19 24 11:30 AM RETAIL MORTGAGE BANKER documented as of this encounter Care Teams Mold Injector Relationship Specialty Start Date End Date Tracy Olivares MD [address] [place] [address] PCP - General INTERNAL MEDICINE 01/02/21 Nathan Baig MD [address] [address] Consulting Physician Internal Medicine Pulmonary Disease 09/16/21 Marisel Mancini, RN [address] [place] [address] Natural Gas Plant Technician (Ambulatory) REGISTERED NURSE 06/28/24 08/07/24 documented as of this encounter
--- OUTSIDE RECORDS SUMMARY | 2025-04-14 10:38 | XMS_ITS | Encounter Summary ---
Author Organization [facility] Address [address] [place] [address] Care Team Providers Care Box Blank Machine Operator Helper Name Role Phone Tracy Olivares MD Primary Care Provider [phone] Nathan Baig MD Unavailable [phone] Marisel Mancini RN Unavailable [phone] Encounter Details Date Type Department Care Team (Late st Contact Info) Description 05/10/2022 Project Fixup Message Enc [facility] Multispecialty Care - [address] [place] [address] FCluberin, [facility] Provider Lab Test Social History [...] Sex Assigned at Female 11/14/2024 10:21 AM WARD SECRETARY Legal Sex Female 8:25 PM CDT Gender Identity Female 11/14/2024 10:21 AM WARD SECRETARY Sexual Orientation Straight 11/14/2024 10 :21 AM WARD SECRETARY COVID-19 Exposure Response Date Recorded In the last 10 days, have yo u been in contact with someone who was confirmed or suspected to have Coronavirus/COVID-19? No / Unsure 05/03/2022 10:34 AM CDT documented as of this encounter Plan of Treatment Upcoming Encounters Date Type Department Care Team (Late st Contact Info) Description 05/29/2025 11:00 AM CDT Office Visit [facility] Specialty Clinic - [address] [address] Nathan Baig MD [address] [address] 07/24/2025 10:40 AM WARD SECRETARY Office Visit [facility] Multispecialty Care - [place] [address] [place] [address] Tracy Olivares MD [address] [place] [address] documented as of this encounter Visit Diagnoses Not on filedocumented in this encounter Additional Health Concerns Infection Onset Date Last Indicated Resolved Time COVID-19 Rule Out 05/20/2022 05/20/2022 05/20/2022 10:50 AM CDT COVID-19 Rule Out 05/20/2022 05/20/2022 05/21/2022 1:20 AM CDT Assessment Noted Time PHQ-9 Depression Total Score: 5 01/06/20 10:48 AM CDT documented as of this encounter Care Teams Box Blank Machine Operator Helper Relationship Specialty Start Date End Date Tracy Olivares MD [address] [place] [address] PCP - General INTERNAL MEDICINE 01/02/21 Nathan Baig MD [address] [address] Consulting Physician Internal Medicine Pulmonary Disease 09/16/21 Marisel Mancini RN [address] [place] [address] Attendant Campground (Ambulatory) REGISTERED NURSE 06/28/24 08/07/24 documented as of this encounter
--- OUTSIDE RECORDS SUMMARY | 2025-04-14 10:38 | XMS_ITS | Encounter Summary ---
Author Organization [facility] Address [address] [place] [address] Care Team Providers Care Video Systems Engineer Name Role Phone Tracy Olivares MD Primary Care Provider [phone] Nathan Baig MD Unavailable [phone] Marisel Mancini RN Unavailable [phone] Encounter Details Date Type Department Care Team (Late st Contact Info) Description 02/08/2023 BPT Message Enc [facility] - [address] [place] [address] Impulcityeirn, [facility] Provider Mammogram results Social History Tobacco [...] Sex Assigned at Female 11/14/2024 10:21 AM BUTTONHOLE TACKER Legal Sex Female 8:25 PM CDT Gender Identity Female 11/14/2024 10:21 AM BUTTONHOLE TACKER Sexual Orientation Straight 11/14/2024 10 :21 AM BUTTONHOLE TACKER COVID-19 Exposure Response Date Recorded In the last 10 days, have yo u been in contact with someone who was confirmed or suspected to have Coronavirus/COVID-19? No / Unsure 01/24/2023 10:26 AM CDT documented as of this encounter Plan of Treatment Upcoming Encounters Date Type Department Care Team (Late st Contact Info) Description 05/29/2025 11:00 AM CDT [facility] - [address] [address] Nathan Baig MD [address] [address] 07/24/2025 10:40 AM BUTTONHOLE TACKER Office Visit [facility] Multispecialty Care - [place] [address] [address] [place] [address] Tracy Olivares MD [address] [place] [address] documented as of this encounter Visit Diagnoses Not on filedocumented in this encounter Additional Health Concerns Assessment Noted Time PHQ-9 Depression Total Score: 11 023 1:30 PM CDT documented as of this encounter Care Teams Video Systems Engineer Relationship Specialty Start Date End Date Tracy Olivares MD [address] [place] [address] PCP - General INTERNAL MEDICINE 01/02/21 Nathan Baig MD [address] [address] Consulting Physician Internal Medicine Pulmonary Disease 09/16/21 Marisel Mancini, RN [address] [place] [address] Wire Coiner (Ambulatory) REGISTERED NURSE 06/28/24 08/07/24 documented as of this encounter
--- OUTSIDE RECORDS SUMMARY | 2025-04-14 10:38 | XMS_ITS | Clinical Summary ---
Author Organization [facility] Medical Office Building B Address [address] [place] [address] Care Team Providers Care Medical Physiologist Name Role Phone Omid Douglass MD Primary Care Provider [phone] Nathan Baig MD Unavailable Tracy Olivares MD Unavailable Allergies Active Allergy [...] 06/27/2024 Assessment & Plan (07/16/2024 1:40 PM FOOD STYLIST): BP stable. Previously on losartan 100mg, hydrochlorothiazide [...] (Completed) Assessment & Plan (07/23/2024 1:41 PM FOOD STYLIST): L4-L5 Osteomyelitis/discitis with epidural phlegmon. S/p IR [...] patches. Assessment & Plan (07/16/2024 1:36 PM FOOD STYLIST): L4-L5 Osteomyelitis/discitis with epidural phlegmon. S/p IR [...] well controlled. Continue Tyl 1000mg BID, PRN Gildford q8h, Increase Gabapentin to 300mg TID, Schedule Flexeril TID, & start Lidoderm patch. Assessment & Plan (07/14/2024 2:58 PM CDT): Subacute, currently stable. Continue cefepime 2 g IV every 12 hours, cyclobenzaprine 10 mg t.i.d. p.r.n. spasm, gabapentin and G[place] as scripted. Consult physical and occupational therapy [...] sciatica Assessment & Plan (07/16/2024 1:39 PM FOOD STYLIST): Increased, SEE ABOVE Social History Tobacco Use [...] on file Legal Sex Female 12:03 AM FOOD STYLIST Gender Identity Not on file Sexual Orientation Not on file Obstetrics History Last Filed Vital Signs Vital Sign Reading Time Taken Comments Blood Pressure 168/103 10/15/2024 8:45 AM FOOD STYLIST Pulse 95 10/15/2024 8:45 AM FOOD STYLIST Temperature 36.4 C (97.6 F) 10/15/2024 8:45 AM FOOD STYLIST Respiratory Rate 18 07/31/2024 11:32 AM FOOD STYLIST Oxygen Saturation 99% 10/15/2024 8:45 AM FOOD STYLIST Inhaled Oxygen Concentration - - Weight 124 kg (273 lb 6.4 oz) 10/15/2024 8:45 AM FOOD STYLIST Height 167.6 cm (5' 5.98) 10/15/2024 8:45 AM CS T Body Mass Index 44.15 10/15/2024 8:45 AM FOOD STYLIST Plan of Treatment Health Maintenance Due Date [...] Additional history exists Lipid Panel 03/23/2025 03/23/2024 Influenza Vaccine (#1) 2025 , 06/08/2023, 06/15/2022, Additional history exists Fall Risk Assessment 07/31/2025 07/31/2024 eGFR 10/15/2025 10/15/2024, 07/13, 07/23/2024, Additional history exists DTaP/Tdap/Td Vaccine (2 - Td or Tdap) 07/06/2031 07/06/2021 Pneumococcal vaccine 65+ Completed 022, 03/03/2021, 05/17/2016, Additional history exists Procedures Procedure Name Priority Date/Time Associated Diagnosis Comments EGFR Routine 10/15/2024 9:51 AM FOOD STYLIST Osteomyelitis of lumbar spine (HCC) from Last 3 Months or Most Recently Relevant to Health Maintenance Results * eGFR (10/15/2024 9:51 AM FOOD STYLIST) eGFR 81 >=60 mL/min/1. 73 m2 Comment: [...] last reviewed 2021. Blood 10/15/2024 9:51 AM FOOD STYLIST 10/15/2024 12:55 PM FOOD STYLIST Mia Sanchez MD LAB BLOOD ORDERABLES Final Result Performing Organization Address City/State/[facility] Co de Phone Number [facility] Department [place] [address] from Last 3 Months or Most Recently Relevant to Health Maintenance Insurance [address] [place] [id number] [place] [address] [employer] P[employer] Advance Directives For more information, please contact: [phone] * Full Code (Latest Code Status on File) Date Activated Date Inactivated Comments 07/30/2024 11:54 PM 07/31/2024 4:45 PM Care Teams Medical Physiologist Relationship Specialty Start Date End Date Omid Douglass MD [facility] [place] [address] PCP - General 12/15/11 Nathan Baig MD [address] [address] Pulmonary Disease 08/15/24 Tracy Olivares MD [address] [facility] [address] [place] [address] Internal Medicine 08/15/24
--- OUTSIDE RECORDS SUMMARY | 2025-04-14 10:38 | XMS_ITS | Encounter Summary ---
Author Organization [facility] - [facility] [place] [facility] Address [address] [place] [address] Care Team Providers Care Baseball Scout Name Role Phone Tracy Olivares MD Primary Care Provider [phone] Nathan Baig MD Unavailable [phone] Marisel Mancini RN Unavailable [phone] Encounter Details Date Type Department Care Team (Late st Contact Info) Description 03/29/2022 [facility] [employer] Message Enc [facility] Medical Group Multispecialty Care - [address] [place] [address] [employer], [facility] Provider test results Social History Tobacco [...] Sex Assigned at Female 11/14/2024 10:21 AM WASTE MANAGEMENT ENGINEER Legal Sex Female 8:25 PM CDT Gender Identity Female 11/14/2024 10:21 AM WASTE MANAGEMENT ENGINEER Sexual Orientation Straight 11/14/2024 10 :21 AM WASTE MANAGEMENT ENGINEER COVID-19 Exposure Response Date Recorded In the last 10 days, have yo u been in contact with someone who was confirmed or suspected to have Coronavirus/COVID-19? No / Unsure 03/24/2022 2:23 PM CDT documented as of this encounter Plan of Treatment Upcoming Encounters Date Type Department Care Team (Late st Contact Info) Description 05/29/2025 11:00 AM CDT Office Visit [facility] Specialty [facility] - [address] [address] Nathan Baig MD [address] [address] 07/24/2025 10:40 AM WASTE MANAGEMENT ENGINEER Office Visit [facility] Multispecialty Care - [place] [address] [address] [place] [address] Tracy Olivares MD [address] [place] [address] documented as of this encounter Visit Diagnoses Not on filedocumented in this encounter Additional Health Concerns Infection Onset Date Last Indicated Resolved Time COVID-19 Rule Out 05/20/2022 05/20/2022 05/20/2022 10:50 AM CDT COVID-19 Rule Out 05/20/2022 05/20/2022 05/21/2022 1:20 AM CDT Assessment Noted Time PHQ-9 Depression Total Score: 5 01/06/20 22 10:48 AM CDT documented as of this encounter Care Teams Baseball Scout Relationship Specialty Start Date End Date Tracy Olivares MD [address] [place] [address] PCP - General INTERNAL MEDICINE 01/02/21 Nathan Baig MD [address] [address] Consulting Physician Internal Medicine Pulmonary Disease 09/16/21 Marisel Mancini RN [address] [place] [address] Multigrapher (Ambulatory) REGISTERED NURSE 06/28/24 08/07/24 documented as of this encounter
--- OUTSIDE RECORDS SUMMARY | 2025-04-14 10:38 | XMS_ITS | Encounter Summary ---
Author Organization [facility] - [facility] Address [address] [place] [address] Care Team Providers Care Greenkeeper Name Role Phone Tracy Olivares MD Primary Care Provider [phone] Nathan Baig MD Unavailable [phone] Marisel Mancini RN Unavailable [phone] Encounter Details Date Type Department Care Team (Late st Contact Info) Description 01/11/2023 [employer] Message Enc [facility] Medical Group Multispecialty Care - [address] [place] [address] [employer], [facility] Provider lab results Social History Tobacco Use [...] Sex Assigned at Female 11/14/2024 10:21 AM PROVER Legal Sex Female 8:25 PM CDT Gender Identity Female 11/14/2024 10:21 AM PROVER Sexual Orientation Straight 11/14/2024 10 :21 AM PROVER COVID-19 Exposure Response Date Recorded In the last 10 days, have yo u been in contact with someone who was confirmed or suspected to have Coronavirus/COVID-19? No / Unsure 01/07/2023 10:56 AM CDT documented as of this encounter Plan of Treatment Upcoming Encounters Date Type Department Care Team (Late st Contact Info) Description 05/29/2025 11:00 AM CDT Office Visit [facility] Medical [facility] Pulmonology Specialty Clinic - [address] [address] Nathan Baig MD [address] [address] 07/24/2025 10:40 AM PROVER Office Visit [facility] Multispecialty Care - [place] [address] [address] [place] [address] Tracy Olivares MD [address] [place] [address] documented as of this encounter Visit Diagnoses Not on filedocumented in this encounter Additional Health Concerns Assessment Noted Time PHQ-9 Depression Total Score: 11 023 1:30 PM CDT documented as of this encounter Care Teams Greenkeeper Relationship Specialty Start Date End Date Tracy Olivares MD [address] [place] [address] PCP - General INTERNAL MEDICINE 01/02/21 Nathan Baig MD [address] [address] Consulting Physician Internal Medicine Pulmonary Disease 09/16/21 Marisel Mancini, RN [address] [place] [address] Sterile Supply Technician (Ambulatory) REGISTERED NURSE 06/28/24 08/07/24 documented as of this encounter
--- OUTSIDE RECORDS SUMMARY | 2025-04-14 10:38 | XMS_ITS | Encounter Summary ---
Author Organization [facility] Address [address] [place] [address] Care Team Providers Care Senior Hr Generalist Name Role Phone Tracy Olivares MD Primary Care Provider [phone] Nathan Baig MD Unavailable [phone] Marisel Mancini RN Unavailable [phone] Encounter Details Date Type Department Care Team (Late st Contact Info) Description 01/11/2024 [employer] Message Enc [facility] Multispecialty Care - [place] [address] [facility] [address] [place] [address] Stephanie, [facility] Provider Weight Watchers Social History Tobacco [...] Sex Assigned at Female 11/14/2024 10:21 AM RENEWALS SPECIALIST Legal Sex Female 8:25 PM CDT Gender Identity Female 11/14/2024 10:21 AM RENEWALS SPECIALIST Sexual Orientation Straight 11/14/2024 10 :21 AM RENEWALS SPECIALIST documented as of this encounter Plan of Treatment Upcoming Encounters Date Type Department Care Team (Late st Contact Info) Description 05/29/2025 11:00 AM CDT Office Visit [facility] Medical [facility] Pulmonology Specialty Clinic - [place] [address] [facility] [address] [place] [address] Nathan Baig MD [address] [address] 07/24/2025 10:40 AM RENEWALS SPECIALIST Office Visit [facility] Medical Group Multispecialty Care - [place] [address] [address] [place] [address] [facility] [address] documented as of this encounter Visit Diagnoses Not on filedocumented in this encounter Additional Health Concerns Assessment Noted Time PHQ-9 Depression Total Score: 2 09/14/19 24 11:30 AM RENEWALS SPECIALIST documented as of this encounter Care Teams Senior Hr Generalist Relationship Specialty Start Date End Date Tracy Olivares MD [address] [place] [address] PCP - General INTERNAL MEDICINE 01/02/21 Nathan Baig MD [address] [address] Consulting Physician Internal Medicine Pulmonary Disease 09/16/21 Marisel Mancini, RN [address] [place] [address] Coremaker Bench (Ambulatory) REGISTERED NURSE 06/28/24 08/07/24 documented as of this encounter
--- OUTSIDE RECORDS SUMMARY | 2025-04-14 10:38 | XMS_ITS | Encounter Summary ---
Author Organization [facility] Address [facility] [place] [address] Care Team Providers Care Ciso Name Role Phone Tracy Olivares MD Primary Care Provider [phone] Nathan Baig MD Unavailable [phone] Marisel Mancini RN Unavailable [phone] Encounter Details Date Type Department Care Team (Late st Contact Info) Description 03/09/2023 MyChart Message Enc [facility] Medical Group - [facility] [address] [place], [place] [address] [employer], [facility] Provider Air Quality Message Social [...] Sex Assigned at Female 11/14/2024 10:21 AM CONCRETE BOOM PUMP OPERATOR Legal Sex Female 8:25 PM CDT Gender Identity Female 11/14/2024 10:21 AM CONCRETE BOOM PUMP OPERATOR Sexual Orientation Straight 11/14/2024 10 :21 AM CONCRETE BOOM PUMP OPERATOR COVID-19 Exposure Response Date Recorded In the last 10 days, have yo u been in contact with someone who was confirmed or suspected to have Coronavirus/COVID-19? No / Unsure 02/14/2023 1:38 PM CDT documented as of this encounter Plan of Treatment Upcoming Encounters Date Type Department Care Team (Late st Contact Info) Description 05/29/2025 11:00 AM CDT Office Visit [facility] Medical [facility]monology Specialty Clinic - [address] [address] Nathan Baig MD 3 [facility] [address] [place] [address] 07/24/2025 10:40 AM CONCRETE BOOM PUMP OPERATOR Office Visit [facility] Multispecialty Care - [place] [address] [address] [place] [address] Tracy Olivares MD [address] [place] [address] documented as of this encounter Visit Diagnoses Not on filedocumented in this encounter Additional Health Concerns Assessment Noted Time PHQ-9 Depression Total Score: 11 023 1:30 PM CDT documented as of this encounter Care Teams Ciso Relationship Specialty Start Date End Date Tracy Olivares MD [address] [place] [address] PCP - General INTERNAL MEDICINE 01/02/21 Nathan Baig MD 3 [facility] [address] [place] [address] Consulting Physician Internal Medicine Pulmonary Disease 09/16/21 Marisel Mancini, RN [address] [place], [place] [address] Biomedical Field Service Engineer (Ambulatory) REGISTERED NURSE 06/28/24 08/07/24 documented as of this encounter
--- OUTSIDE RECORDS SUMMARY | 2025-04-14 10:39 | XMS_ITS ---
Author Name Karina SHIRLEY, MRS. Schreiber npal Address [address] [place], [place] [address] [address] Phone [phone] Organization [facility] Care Team Providers Care Resource Forester Name Role Phone Karina Gilbert Unavailable [phone] Robin Thornton Unavailable [phone] [facility] Tier 1 RN (STL), Arlette Lopez navailjhony Unavailable [facility] CHW (STL), Amara Lorenzo Unavailable Unavailable VINICIUS PA Unavailable [phone] Reason for Referral Not Available Allergies, adverse [...] Available Famotidine 20 mg Tab 1 tablet in the AM and 2 tablet orally daily at bedtime 2024-06-17 No Data Available Losartan Potassium-HCTZ 100/12.5 mg Tab 1 tablet orally daily 2024-06-17 No Data Available Trelegy Ellipta 100-62.5-25 MCG/ACT Aerosol Powder Breath Activated Inhalation 1 puff inhaled orally daily 2024-06-17 No D gris Available Aspirin 81 mg Tab delayed rel 1 tablet orally daily 2024-06-18 No Data Available Vitamin D3 125 MCG (5000 UT) Cap 1 capsule orally daily 2024-06-18 No Data Available Benadryl Allergy 25 mg Tab 1 tablet oral ly daily at bedtime as needed 2024-06-18 No Data Available Adforme blood glucose monitoring system 0 Use as directed 2024-06-18 No Data Available Albuterol Sulfate HFA 108 (90 Base) MCG/ACT Aerosol Solution Inhalation INHALE 2 PUFFS BY MOUTH EVERY 6 HOURS NEEDED FOR WHEEZING OR SHORTNESS OF BREATH 2024-06-18 No Data Available Linzess 72 MCG Cap TAKE 1 CAPSULE BY [place] [facility] EVERY DAY 2024-10-22 No Data Available FREESTYLE LITE TEST STRIP USE 1 STRIP NEEDED DIRECTED 2024 No Data Available Problem List Problem Status Onset Date Resolved Date Synopsis Type 2 diabetes mellitus Active 2024-06-18 N/A N/A Morbidly obese Active 2024-06-18 N/A N/A HTN (hypertension) Active 2024-06-18 N/A N/A HLD (hyperlipidemia) Active 2024-06-18 N/A N/A Lumbago with sciatica Active 2024-06-18 N/A N/A GERD (gastroesophageal reflux disease) Active N/A N/A COPD (chronic obstructive pulmonary disease) Active 05-07-07 N/A N/A Bladder incontinence fema Active 2024-06-18 N/A N/A Encounters Encounters Type Facility Date of Service Diagnosis/Co mplaint Home visit for evaluation and management of new patient requiring medically appropriate examination and high level of medical decision making. If using time, at least 75 minutes total time on [email or web address] [place] [facility]2024 Type 2 diabetes ethel itus without complicationsStress incontinence (female) (male)Morbid (severe) obesity due to excess caloriesEssential (primary) hypertensionHyperlipidemia, unspecifiedLumbago with sciatica, unspecified sideGastro-esophageal reflux disease without esophagitisChronic obstructive pulmonary disease, unspecifiedBody mass index (BMI) 40.0-44.9, adult Home visit for evaluation and management of established patient requiring medically appropriate examination and low level of medical decision making. If using time, at least 30 minutes total time on [facility] [place] 02/05/2025 Type 2 diabetes ethel itus without complicationsStress incontinence (female) (male)Morbid (severe) obesity due to excess caloriesEssential (primary) hypertensionHyperlipidemia, unspecifiedLumbago with sciatica, unspecified sideGastro-esophageal reflux disease without esophagitisChronic obstructive pulmonary disease, unspecified Home visit for evaluation and management of established patient requiring medically appropriate examination and low level of medical decision making. If using time, at least 30 minutes total time on [facility] [place] 02/05/2025 Type 2 diabetes ethel itus without complications Home visit for evaluation and management of established patient requiring medically appropriate examination and low level of medical decision making. If using time, at least 30 minutes total time on e [facility] [place] 02/05/2025 Morbid (severe) obes ity due to excess calories Vital Signs Date of Collection Vitals 2024-06-18 17:25:00 Height - 168.91 cmWe ight - 125.19 kgBody Mass Index (BMI) - 43.88 kg/j3Vtrlg Rate - 91.0 /minBody Temperature - 36.22 CelO2 % BldC Oximetry - 90.0 % 2025-02-05 08:45:00 Height - 167.64 cmWe ight - 121.56 kgBody Mass Index (BMI) - 43.26 kg/m2BP Diastolic - 86.0 mm[Hg]BP Systolic - 150.0 mm[Hg]Heart Rate - 72.0 /minRespiratory Rate - 18.0 /minBody Temperature - 36.83 CelO2 % BldC Oximetry - 97.0 % Social History Social History Social History Observation Description Effec tive Time Current Smoking Status Former smoker 3 Sex Female History of Procedures Procedures Service Procedure code Service date Servicing provider Phone# Home visit for evaluation and management of new patient requiring medically appropriate examination and high level of medical decision making. If using time, at least 75 minutes total time on encounte [id number] 2024-06-19 No Data Available No Data Availa ble Home visit for evaluation and management of established patient requiring medically appropriate examination and low level of medical decision making. If using time, at [place] [id number] 2025-02-05 No Data Available No Data Availa ble Patient screened for fall risk; no falls in the last year or 1 fall with no injury in the last year 1100F 2025-02-05 No Data Available No Data Avail able Advance care planning discussion documented in medical record [id number] 2025-02-05 No Data Available No Data Avai lable Functional Status Functional Category Effective Dates drives and lives independently 7 Mental Status Status Date Cognitive: Mini-Cog Score: 5 (06/18/2024 ) 2025-02-05 Assessments Date of Service Assessments 2024-06-18 17:25:00 Bladder incontinence femaType 2 diabetes mellitusMorbidly obeseHTN (hypertension)HLD (hyperlipidemia)Lumbago with sciaticaGERD (gastroesophageal reflux disease)COPD (chronic obstructive pulmonary disease) 2025-02-05 08:45:00 Bladder incontinence femaType 2 diabetes mellitusMorbidly obeseHTN (hypertension)HLD (hyperlipidemia)Lumbago with sciaticaGERD (gastroesophageal reflux disease)COPD (chronic obstructive pulmonary disease) Plan of Care Date of Service Plans 2024-06-18 17:25:00 PCP f/u Q6 monthsOrt makayla - Dr. Hilliard start on oxybutynin 5 mg BIDCHW referral placed for assistance with financial forms for bladder therapyPH follow up 07/16/2024 at 9amLast A1C 6.1 (03/2024)continue JardianceFreestyle Lite glucometer rx placed to picker and packer OTCencouraged exercising as tolerateddiscussed eating healthy mealsdrink more waterunable to assess, did not have the correct cuff size, needs XLcontinue losartanlow salt dietchroniccontinue atorvastatinheart healthy dietchroniccontinue meloxicam and gabapentin as neededrecommend Tylenol arthritis and diclofenac gel for PRN usechroniccontinue famotidine and esomeprazoleavoid trigger foodschronic but stablecontinue Trelegy inhaler (rinsing after each use)Continue albuterol inhaler as needed 2025-02-05 08:45:00 Improved since bladd er catheter and flushing. Recommend follow up with urology to further discuss elective procedure. No longer requires medication.Stable. Controlled with Jardiance 25 mg daily. Last A1C 6.1. Follow up with PCP as scheduled in 1-2 months.Reports intentional 25 lb weight loss. Continue diet and exercise.Chronic, slightly elevated due to recent high sodium diet. Continue Losartan/HCTZ daily and avoid high sodium foods.Continue Atorvastatin 20 mg dailyHeart healthy dietProceed with [facility] follow up tomorrow for steroid hip injectionsNo longer taking Gabapentin and TylenolControlled with Famotidine 20 mg dailyReflux precautions: avoid tight clothing, trigger foods and laying down within 2 hours after eating meals.Controlled with Trelegy Ellipta daily and albuterol inhaler as needed. Goals Date Goal 2024-06-19 Drink more water - g oal 60oz a day 2024-06-19 Begin using treadmil l at her facility starting with 10 min of walking and then increasing by 5 min when tolerable. 2024-06-19 PH follow up 024 at 9am Health Concerns Date Concern 2025-02-05 Healthy House Calls is a service that involves a physician or advanced practice provider conducting comprehensive assessments in your patient s home or virtually to address crucial [...] share any relevant findings from the examination. 2025-02-05 She is not feeling w ell today due to overeating food yesterday 2025-02-05 She has not been linda ing any urinary medication after her bladder flushing procedure. She has postponed her bladder incontinence surgery due to her signification low back pain. 2025-02-05 She has started taki ng Benadryl again at bedtime due to pruritus. She states it is related to certain foods: tomatoes, oranges, pickles, etc. 2025-02-05 She does not check h er Blood glucose daily. Her last A1C was 6.1 2025-02-05 She has lost 25 lbs over the last 6 months. She has changed her diet and has an stationary pedal that she uses most days. 2025-02-05 She was hospitalized in late Jun 2024 for spinal infection. She was discharged with IV abx via PICC line x 1 month. She had a follow up MRI and scheduled with [facility] appt tomorrow. She has been following ID. 2025-02-05 She has a f/u appt i february for glaucoma. Currently not on any treatment, per doctor, pressures have been normal x 3-4 years now.
--- OUTSIDE RECORDS SUMMARY | 2025-04-14 10:39 | XMS_ITS | Clinical Summary ---
Author Organization [facility] Address [facility] [place] [address] Care Team Providers Care Master In Chancery Name Role Phone Tracy Olivares MD Primary Care Provider [phone] Nathan Baig MD Unavailable [phone] Allergies Active Allergy Reactions Criticality Noted Date Comments Celecoxib Itching 02/22/2024 Propoxyphene Unknown 07/24/2012 Medications aspirin 81 MG tablet Take 1 tablet (81 mg total) by mouth daily. Active ONETOUCH VERIO test strip 01/19/20 21 Active cetirizine (ZYRTEC) 10 MG tabletIndications:S easonal allergies Take 1 tablet (10 mg total) by mouth daily. 90 tablet 3 10/29/19 23 Active Blood Glucose Monitoring Suppl KitIndications:Type 2 diabetes mellitus with hyperglycemia, without long-term current use of insulin ([facility]) Use daily to check blood sugar. Okay to substitute with whichever one insurance will cover thank you. 1 kit 05/08/20 24 Active Blood Gluc Meter Disp-Strips (BLOOD GLUCOSE METER DISPOSABLE) DeviceIndications:T ype 2 diabetes mellitus with hyperglycemia, without long-term current use of insulin ([facility]) Use daily to check blood sugar. Okay to substitute with whichever brand insurance will cover. 100 each 11 05/08/20 24 Active Blood Glucose Monitoring Suppl (ONE TOUCH ULTRA 2) w/Device KitIndications:Type 2 diabetes mellitus with hyperglycemia, without long-term current use of insulin ([facility]) Check blood sugar twice a day before meals. 1 kit 06/06/20 24 Active Glucose Blood test stripIndications:Ty pe 2 diabetes mellitus with hyperglycemia, without long-term current use of insulin ([facility]) Check blood sugar twice a day before meals. 300 strip 1 06/06/20 24 Active Lancets (ONETOUCH ULTRASOFT) lancetsIndications: Type 2 diabetes mellitus with hyperglycemia, without long-term current use of insulin ([facility]) Check blood sugar twice a day before meals. 100 each 1 06/06/20 24 Active melatonin 3 MG tablet Take 1 tablet (3 mg total) by mouth nightly as needed. Active Senna (SENOKOT) 8.6 MG tablet Take 1 tablet (8.6 mg total) by mouth 2 (two) times daily as needed for Constipation. Active acetaminophen (TYLENOL) 500 MG tablet Take [...] by Active Glucose Blood (FREESTYLE LITE) test stripIndications:Ty pe 2 diabetes mellitus with hyperglycemia, without long-term current use of insulin ([facility]) 1 strip by Other route as needed. Use as instructed 100 strip 3 08/01/20 24 Active Lancets MiscIndications:Typ e 2 diabetes mellitus with hyperglycemia, without long-term current use of insulin ([facility]) Use daily to check blood sugar. Okay to substitute with whichever brand insurance will cover thank you. 100 each 11 08/01/20 24 Active docusate sodium (COLACE) 100 MG capsuleIndications: Constipation, unspecified constipation type Take 1 capsule (100 mg total) by mouth 2 (two) times daily. 60 capsule 1 08/21/20 24 Active ondansetron (ZOFRAN) 4 MG tabletIndications:A cute gastroenteritis Take 1 tablet (4 mg total) by mouth every 8 (eight) hours as needed. 20 tablet 10/02/19 25 Active LINZESS 72 MCG capsule Take 1 capsule (72 mcg total) by mouth daily. 11/06/19 25 Active Cholecalciferol 50 MCG (2000 UT) TabIndications:Samanta min D deficiency Take 1 tablet by mouth daily. 30 tablet 3 02/15/20 25 Active losartan-hydroCHLOR Othiazide (HYZAAR) 100-12.5 MG tabletIndications:E ssential hypertension Take 1 tablet by mouth daily. 90 tablet 3 03/20/20 25 Active gabapentin (NEURONTIN) 300 MG capsuleIndications: Idiopathic peripheral neuropathy Take 1 capsule (300 mg total) by mouth nightly as needed. 90 capsule 1 03/20/20 25 Active Fluticasone-Umeclid in-Vilant (TRELEGY ELLIPTA) 100-62.5-25 MCG/ACT AEROSOL POWDER, BREATH ACTIVATEDIndication s:Pulmonary emphysema, unspecified emphysema type ([facility]) Inhale 1 puff into the lungs daily. 180 each 3 03/20/20 25 Active famotidine (PEPCID) 20 MG tabletIndications:G astroesophageal reflux disease without esophagitis Take one tablet two times daily as needed for heart burn. 180 tablet 1 03/20/20 25 Active esomeprazole (NEXIUM) 40 MG capsuleIndications: Gastroesophageal reflux disease without esophagitis Take 1 capsule (40 mg total) by mouth daily as needed. 90 capsule 1 03/20/20 25 Active empagliflozin (JARDIANCE) 25 MG tabletIndications:T ype 2 diabetes mellitus with hyperglycemia, without long-term current use of insulin ([facility]) Take 1 tablet (25 mg total) by mouth daily. 90 tablet 1 03/20/20 25 Active atorvastatin (LIPITOR) 20 MG tabletIndications:M ixed hyperlipidemia Take 1 tablet (20 mg total) by mouth nightly at bedtime. at bedtime 90 tablet 1 03/20/20 25 Active albuterol sulfate HFA 108 (90 Base) MCG/ACT inhalerIndications: Seasonal allergic rhinitis due to pollen Inhale 2 puffs into the lungs every 4 (four) hours as needed. 18 g 5 03/20/20 25 Active tamsulosin (FLOMAX) 0.4 MG CapIndications:Carmelita re right groin pain Take 1 capsule (0.4 mg total) by mouth daily. 10 capsule 04/05/20 25 Active oxyCODONE-acetamino phen (PERCOCET) 5-325 MG tabletIndications:A cute Pain < 7 Day Supply Take 1 tablet by mouth every 6 (six) hours as needed for Pain. Indications: Acute Pain < 7 Day Supply 15 tablet 04/05/20 Active nystatin (MYCOSTATIN) powderIndications:F ungal infection Apply topically 4 (four) times daily. 60 g 1 04/05/20 Active losartan-hydroCHLOR Othiazide (HYZAAR) 100-12.5 MG tabletIndications:E ssential hypertension Take 1 tablet by mouth daily. 90 tablet 3 11/06/19 25 025 Discontinu ed(Reorder ) mirabegron ER (MYRBETRIQ) 50 MG 24 hr tabletIndications:M ixed stress and urge urinary incontinence Take 1 tablet (50 mg total) by mouth daily. 30 tablet 2 11/15/19 25 Discontinu ed(Therapy completed) albuterol sulfate HFA 108 (90 Base) MCG/ACT inhalerIndications: Seasonal allergic rhinitis due to pollen Inhale 2 puffs into the lungs every 4 (four) hours as needed. 18 g 5 11/15/19 25 025 Discontinu ed(Reorder ) atorvastatin (LIPITOR) 20 MG tabletIndications:M ixed hyperlipidemia Take 1 tablet (20 mg total) by mouth nightly at bedtime. at bedtime 90 tablet 1 11/15/19 25 025 Discontinu ed(Reorder ) esomeprazole (NEXIUM) 40 MG capsuleIndications: Gastroesophageal reflux disease without esophagitis Take 1 capsule (40 mg total) by mouth daily as needed. 90 capsule 1 11/15/19 25 025 Discontinu ed(Reorder ) famotidine (PEPCID) 20 MG tabletIndications:G astroesophageal reflux disease without esophagitis Take one tablet two times daily as needed for heart burn. 180 tablet 1 11/15/19 25 025 Discontinu ed(Reorder ) Fluticasone-Umeclid in-Vilant (TRELEGY ELLIPTA) 100-62.5-25 MCG/ACT AEROSOL POWDER, BREATH ACTIVATEDIndication s:Pulmonary emphysema, unspecified emphysema type (CMS/HCC HHS/HCC) Inhale 1 puff into the lungs daily. 180 each 3 11/15/19 25 025 Discontinu ed(Reorder ) gabapentin (NEURONTIN) 300 MG capsuleIndications: Idiopathic peripheral neuropathy Take 1 capsule (300 mg total) by mouth nightly as needed. 90 capsule 1 11/15/19 25 025 Discontinu ed(Reorder ) empagliflozin (JARDIANCE) 25 MG tabletIndications:T ype 2 diabetes mellitus with hyperglycemia, without long-term current use of insulin ([facility]) Take 1 tablet (25 mg total) by mouth daily. 90 tablet 1 11/15/19 25 025 Discontinu ed(Reorder ) nitrofurantoin, macrocrystal-monohy drate, (MACROBID) 100 MG capsuleIndications: Severe right groin pain,Acute cystitis without hematuria Take 1 capsule (100 mg total) by mouth 2 (two) times daily for 7 days. 14 capsule 04/05/20 25 025 Discontinu ed(Alterna te therapy) amoxicillin-clavula jeanne (AUGMENTIN) 875-125 MG tabletIndications:A cute cystitis without hematuria,Celluliti s of abdominal wall Take 1 tablet (875 mg total) by mouth 2 (two) times daily for 7 days. 14 tablet 04/05/20 25 025 Hospital, Clinic, or Other Facility Administered Medication Ordered Dose Route Frequency Start Date End Date Status ketorolac (TORADOL) injection 60 mgIndications:Severe right groin pain,Right hip pain 60 mg IM Once 04/05/2025 04/05/2025 Ended methylPREDNISolone acetate (DEPO-Medrol) injection 40 mgIndications:Severe right groin pain,Right hip pain 40 mg IM Once 04/05/2025 04/05/2025 Ended Active Problems Problem Noted Date Diagnosed Date Chronic obstructive pulmonar y disease, unspecified COPD type ([facility]) 11/14/2024 Class 3 severe obesity due t o excess calories without serious comorbidity with body mass index (BMI) of 50.0 to 59.9 in adult 11/14/2024 Diabetic polyneuropathy asso ciated with diabetes mellitus due to underlying condition ([facility]) 11/14/2024 Osteomyelitis of lumbar spine ([facility]) 08/21/2024 senior living (current) use of insulin ([facility]) 03/20/2024 Type 2 diabetes mellitus wit h hyperglycemia, without long-term current use of insulin ([facility]) 03/20/2024 Moderate persistent asthma without complication ([facility]) 09/23/2023 Mixed hyperlipidemia 01/05/2022 RLS (restless legs syndrome) 09/10/2021 Mixed hyperglyceridemia 07/10/2021 Prediabetes 07/10/2021 Other specified anemias 07/10/2021 Knee pain 03/03/2021 Current moderate episode of major depressive dis order 01/05/2021 Overview (07/03/2021): On lexapro and stable. [...] hyperglycemia, without long-term current use of insulin ([facility]) 01/05/2022 04/02/2022 Pulmonary emphysema ([facility]) 04/17/2021 09/23/2023 Overview (04/27/2021): On [...] Routine general medical exam ination at a [facility] 04/20/2012 01/05/2021 Encounters Date Type Department Care Team Description 04/12/2025 Telephone [address] [address] [address] [place] [address] Tracy Olivares MD Follow Up Call 04/05/2025 9:40 AM CDT Office Visit [address] [place] [address] Tracy Olivares MD Follow Up (Acute - right hip and pelvis pain. SX started about 2 weeks ago) 04/05/2025 Results Follow-Up [address] [place] [address] Tracy Olivares MD XR HIP LUCINA 2V+PELVIS, URINALYSIS, AUTO, COMPLETE, URINE BACTERIA CULTURE, Additional followed-up results: 3 04/05/2025 Travel 03/22/2025 [facility] [address] [place] [address] Tracy Olivares MD COMPREHENSIVE METABOLIC PANEL, SED RATE, ERYTHROCYTE (ESR), C-REACTIVE PROTEIN, Additional followed-up results: 2 03/22/2025 [facility] [address] [address] [facility] [address] [place], [place] [id number] Tracy Olivares MD Medication Information 03/20/2025 10:20 AM CDT Office [facility] [place] [id number] [place] [address] Tracy Olivares MD Follow Up (Chronic medical issues); Hypertension; Hyperlipidemia; GERD; Diabetes; Back Pain 03/20/2025 Travel 02/14/2025 Telephone [facility] [place] [address] [place] [address] Tracy Olivares MD Medication 02/05/2025 Scan [facility] INFO SRVCS Scanned, [facility] from Last 3 Months Immunizations Immunization Administration Dates Next Due Flucelvax 6 Months+ (Prefill ed Syringe) 06/05/2019 Fluzone High Dose (IIV, triv alent, 0.5mL) 07/10/2024 Fluzone High Dose - >Age 65 (Prefilled [...] 23) 03/03/2021, 6,05/01/2016 Pneumococcal (Prevnar 13) 04/02/2022 Pneumococcal (Prevnar 20) 07/10/2024 Tdap (Adacel) 07/06/2021 Family History Medical History [...] Answer Date Recorded Patient Health Questionnaire-2 Score 2 11/14/2024 Comments No Sex and Gender Information Value Date Recorded Sex Assigned at Female 11/14/2024 10:21 AM [employer] Legal Sex Female 8:25 PM CDT Gender Identity Female 11/14/2024 10:21 AM [employer] TE[employer]BER Sexual Orientation Straight 11/14/2024 10 :21 AM [employer]CE TE[employer] MEMBER Last Filed Vital Signs Vital Sign Reading Time Taken Comments Blood Pressure 139/81 04/05/2025 9:44 AM CDT Pulse 77 04/05/2025 9:44 AM CDT Temperature 36.1 C (97 F) 04/05/2025 9:44 AM CDT Respiratory Rate 18 04/05/2025 9:44 AM CDT Oxygen Saturation 100% 04/05/2025 9:44 AM CDT Inhaled Oxygen Concentration - - Weight 118.8 kg (261 lb 12.8 oz) 04/05/2025 9:44 AM CDT Height 157.5 cm (5' 2) 04/05/2025 9:44 AM CDT Body Mass Index 47.88 04/05/2025 9:44 AM CDT Plan of Treatment Upcoming Encounters Date Type Department Care Team (Late st Contact Info) Description 05/29/2025 11:00 AM CDT Office Visit [facility] - [address] [place] [address] Nathan Baig MD [address] [place] [id number] 07/24/2025 10:40 AM [employer]CE TEAM [employer]BER Office Visit [facility] [place] [address] [facility] [address] [place] [address] Tracy Olivares MD [address] [facility] [address] [place] [address] Health Maintenance Due Date Last Done Comments Kidney Health Evaluation 1955 Zoster Vaccines (1 of 2) 2005 RSV Immunization or 60+ Years (1 - Risk 60-74 years 1-dose series) 2015 Annual Medicare Wellness Visit 09/17/2022 09/16/2021 COVID-19 Vaccine ( season) 2024 06/08/2023, 06/08/2023, 04/28/2022, Additional history exists Diabetes: Retinopathy Eye Exam 02/02/2025 02/02/2023, 01/19/2022 Hemoglobin A1C 06/08/2025 12/06/2024, 03/12, 01/07/2023, Additional history exists Lipid Panel 12/06/2025 12/06/2024, 03/12, 01/07/2023, Additional history exists Mammogram Screening 05/10/2026 05/10/2024, 02/02/2023, 01/14/2022, Additional history exists Colorectal Cancer Screening Colonoscopy (10 Years) 05/26/2030 05/26/2020 DTaP, Tdap and Td Vaccines (2 - Td or Tdap) 07/06/2031 07/06/2021 Hepatitis C Completed 03/03/2021 Dexa Scan (General) Completed 03/17/2021 Pneumococcal Vaccine: 50+ Years Completed 07/10/2024, 04/02/2022, 03/03/2021, Additional history exists PHQ-2 (Physician [place]) Completed 11/14/2024 Meningococcal B Vaccine Aged Out No l onger eligible based on patient's age to complete this topic Meningococcal Vaccine Aged Out No rolando laura eligible based on patient's age to complete this topic RSV Immunizations Under 20 Months Aged Out No longer eligible based on patient's age to complete this topic Procedures Procedure Name Priority Date/Time Associated Diagnosis Comments XR HIP LUCINA 2V+PELVIS Routine 04/05/2025 11:11 AM CDT Severe right groin pain Right hip pain URINE BACTERIA CULTURE Routine 10:13 AM CDT Severe right groin pain C-REACTIVE PROTEIN Routine 04/05/2025 10 :13 AM CDT Drug therapy COMPREHENSIVE METABOLIC PANEL Routine 04/05/2025 10:13 AM CDT Drug therapy CBC W/DIFF AUTOMATED Routine 04/05/2025 10:13 AM CDT Drug therapy COLLECTION VENOUS BLOOD VENIPUNCTURE Routine 04/05/2025 10:10 AM CDT Drug therapy URINALYSIS, AUTO, COMPLETE Routine 04/05/2025 Severe right groin pain CBC W/DIFF AUTOMATED Routine 03/20/2025 10:56 AM CDT Drug therapy SED RATE, ERYTHROCYTE (ESR) Routine 03/20/2025 10:56 AM CDT Drug therapy C-REACTIVE PROTEIN Routine 03/20/2025 10 :56 AM CDT Drug therapy SED RATE, ERYTHROCYTE (ESR) Routine 03/20/2025 10:56 AM CDT Drug therapy COMPREHENSIVE METABOLIC PANEL Routine 03/20/2025 10:56 AM CDT Drug therapy COLLECTION VENOUS BLOOD VENIPUNCTURE Routine 03/20/2025 10:51 AM CDT Drug therapy LIPID PANEL Routine 12/06/2024 11:44 AM CDT HEMOGLOBIN, GLYCOSYLATED Routine 12/06/2024 11:44 AM CDT MAMMOGRAM GENERIC (SCAN ORDER) 05/10/2024 DIABETIC RETINOPATHY EXAM (NEGATIVE)(SCAN ORDER) Routine 02/02/2023 BONE DENSITY/DEXA Routine 03/17/2021 12: 00 AM CDT Menopause HEPATITIS C ANTIBODY Routine 03/03/2021 11:09 AM CDT Encounter for hepatitis C screening test for low risk patient COLONOSCOPY GENERIC (SCAN ORDER) 05/26/2020 from Last 3 Months or Most Recently Relevant to Health Maintenance Results * XR HIP LUCINA 2V+PELVIS (04/05/2025 11:11 AM CDT) Anatomical Region Laterality Modality Hip, Pelvis Radiographic Zeynep ging 04/05/2025 3:20 PM CDT Impressions 04/05/2025 3:22 PM CDT IMPRESSION: 1. No acute abnormality identified. 2. No significant arthritic change. Ordered By: TRACY OLIVARES Interpreted By: Lebron Forbes MD, 04/05/2025 3:20 PM Narrative 04/05/2025 3:22 PM CDT [facility] [place] [id number] Examination: XR HIP LUCINA 2V+PELVIS Exam time: 04/05/2025 10:56 AM Clinical history: Chronic bilateral hip pain Comparison: 08/22/2024 pelvis and bilateral hips Technique: AP view of the pelvis and each hip joint. Small [id number] AP and lateral images of each hip joint. Findings: Sacroiliac joints and pubic symphysis are normal in width. No definitive evidence of significant degenerative change involving either sacroiliac joint. Chronic appearing enthesophytes involving each iliac crest. No evidence of fracture or focal bone abnormality throughout the pelvis. Hip joint spaces appear maintained. No evidence of fracture or focal bone abnormality involving either acetabulum or proximal femur. No definitive evidence of significant hypertrophic degenerative changes involving either hip joint. Procedure Note Lebron Forbes MD - 04/05/2025 [facility] - [address] [address] Examination: XR HIP LUCINA 2V+PELVIS Exam time: 04/05/2025 10:56 AM Clinical history: Chronic bilateral hip pain Comparison: 08/22/2024 pelvis and bilateral hips Technique: AP view of the pelvis and each hip joint. Small [id number] and lateral images of each hip joint. Findings: Sacroiliac joints and pubic symphysis are normal in width. Nodefinitive evidence of significant degenerative change involving eithersacroiliac joint. Chronic appearing enthesophytes involving each iliaccrest. No evidence of fracture or focal bone abnormality throughout thepelvis. Hip joint spaces appear maintained. No evidence of fracture or focal boneabnormality involving either acetabulum or proximal femur. No definitiveevidence of significant hypertrophic degenerative changes involving eitherhip joint. IMPRESSION: 1. No acute abnormality identified. 2. No significant arthritic change. Ordered By: TRACY OLIVARES Interpreted By: Lebron Forbes MD, 04/05/2025 3:20 PM Tracy Olivares MD GENERAL IMAGING Final Result * URINE BACTERIA CULTURE (04/05/2025 10:13 AM CDT) CULTURE RESULT [facility] Comment: CULTURE, URINE, ROUTINE Micro Number: [id number] Test Status: Final Specimen Source: Urine Specimen Quality: Adequate Result: Mixed genital peter isolated. These superficial bacteria are not indicative of a urinary tract infection. No further organism identification is warranted on this specimen. If clinically indicated, recollect clean-catch, mid-stream urine and transfer immediately to Urine Culture Transport Tube. URINE SPECIMEN OBTAINED BY CLEAN CATCH PROCEDURE / Unknown 04/05/2025 10:13 AM CDT 04/06/2025 6:20 AM CDT Narrative Resulting Agency Comment Performing Organization Information: Site ID: [place] Name: [facility] Address: [address] [place] [address] Director: Mahin Mckeon MD Tracy Olivares MD MICROBIOLOGY - GENERAL ORDERABLE S Final Result [facility] [place] [facility] [address] [place] [address], [place] * (ABNORMAL) COMPREHENSIVE METABOLIC PANEL (04/05/2025 10:13 AM CDT) Only the most recent of2 resultswithin the time period is included. GLUCOSE 110(H) 65 - 99 mg/dL [facility] Comment: Fasting reference interval For someone without known diabetes, a glucose value between 100 and 125 mg/dL is consistent with prediabetes and should be confirmed with a follow-up test. BUN 13 7 - 25 mg/dL [facility] CREATININE S/P/B 0.76 0.50 - 1.05 mg/dL [facility] GFR ESTIMATE 85 > OR = 60 mL/min/1. 73m2 [facility] BUN CREATININE RATIO SEE NOTE: (calc) [facility] Comment: Not Reported: BUN and Creatinine are within reference range. SODIUM S/P/B 138 135 - 146 mmol/L [facility] POTASSIUM S/P/B 4.0 3.5 - 5.3 mmol/L [facility] CHLORIDE S/P/B 101 98 - 110 mmol/L [facility] [place] CO2 29 20 - 32 mmol/L [facility] CALCIUM S/P/B 9.7 8.6 - 10.4 mg/dL [facility] TOTAL PROTEIN S/P/B 7.0 6.1 - 8.1 g/dL [facility] [place] ALBUMIN S/P/B 3.9 3.6 - 5.1 g/dL [facility] [place] GLOBULIN 3.1 1.9 - 3.7 g/dL (calc) [facility] ALBUMIN/GLOBULI N RATIO 1.3 1.0 - 2.5 (calc) [facility] BILIRUBIN TOTAL S/P/B 0.6 0.2 - 1.2 mg/dL [facility] ALKALINE PHOSPHATASE S/P/B 149 37 - 153 U/L [facility] AST 12 10 - 35 U/L [facility] ALT 9 6 - 29 U/L [facility] 04/05/2025 10:1 3 AM CDT 04/06/2025 6:20 AM CDT Narrative Resulting Agency Comment Performing Organization Information: Site ID: [id number] Name: [facility] Address: [address] [place] [id number] Director: Mahin Mckeon MD Tracy Olivares MD LABORATORY Final Result Performing Organization Address [facility] de Phone Number [place] [facility] [place] [address] [address], * (ABNORMAL) C-REACTIVE PROTEIN (04/05/2025 10:13 AM CDT) Only the most recent of2 resultswithin the time period is included. Pathologist [facility] C-REACTIVE PROTEIN 32.8(H) <8.0 mg/L [facility] 04/05/2025 10:1 3 AM CDT 04/06/2025 6:20 AM CDT Narrative Resulting Agency Comment Performing Organization Information: Site ID: [place] Name: [facility] Address: [address] [place] [id number] Director: Mahin Mckeon MD Tracy Olivares MD LABORATORY Final Result Performing Organization Address [facility] de Phone Number [facility] [id number] [place] [address] * CBC W/DIFF AUTOMATED (04/05/2025 10:13 AM CDT) Only the most recent of2 resultswithin the time period is included. Pathologist [facility] WBC 6.6 3.8 - 10.8 Thousand/u L [place] [facility] RBC 4.40 3.80 - 5.10 Million/uL [facility] HGB 13.0 11.7 - 15.5 g/dL [place] [facility] HCT 40.6 35.0 - 45.0 % [facility] MCV 92.3 80.0 - 100.0 fL [facility] MCH 29.5 27.0 - 33.0 pg [place] [facility] MCHC 32.0 32.0 - 36.0 g/dL [facility] Comment: For adults, a slight decrease in the calculated MCHC value (in the range of 30 to 32 g/dL) is most likely not clinically significant; however, it should be interpreted with caution in correlation with other red cell parameters and the patient's clinical condition. RDW 13.1 11.0 - 15.0 % [facility] PLT 303 140 - 400 Thousand/u L [facility] MPV 11.2 7.5 - 12.5 fL [facility] ABS. NEUTROPHILS 4,231 1,500 - 7,800 cells/uL [facility] ABS. LYMPHOCYTES 1,610 850 - 3,900 cells/uL [facility] ABS. MONOCYTES 594 200 - 950 cells/uL [facility] ABS. EOSINOPHILS 132 15 - 500 cells/uL [facility] ABS. BASOPHILS 33 0 - 200 cells/uL [facility] SEG NEUTROPHILS 64.1 % [facility] LYMPHOCYTES 24.4 % [email or web address] [place] MONOCYTES 9.0 % [facility] EOSINOPHILS 2.0 % [facility] BASOPHILS 0.5 % [email or web address] [place] 04/05/2025 10:1 3 AM CDT 04/06/2025 6:20 AM CDT Narrative Resulting Agency Comment Performing Organization Information: Site ID: [place] Name: [facility] Address: [id number] [place] [address] [place] [address] Director: Mahin Mckeon MD Tracy Olivares MD LABORATORY Final Result [facility]IL[facility] DEEPTI [address] [place] [address], QM * (ABNORMAL) URINALYSIS, AUTO, COMPLETE (04/05/2025) COLOR (U) YELLOW YELLOW MG-[address], [facility] TRANSPARENCY CLEAR CLEAR MG-[address], [facility] GLUCOSE (U) >=1000 mg/dl(A) NEGATIVE MG/DL MG-[address], [facility] BILIRUBIN (U) NEGATIVE NEGATIVE MG-[address], [facility] KETONES MG/DL (U) NEGATIVE NEGATIVE MG/DL MG-[address], [facility] SPECIFIC GRAVITY (U) 1.015 1.001 - 1.035 MG-[address], [facility] BLOOD (U) NEGATIVE NEGATIVE MG-[address], [facility] U PH 6.0 5.0 - 9.0 MG-[address], [facility] PROTEIN (U) NEGATIVE NEGATIVE mg/dL MG-[address], [facility] UROBILINOGEN 0.2 0.2 - 1.0 EU/dL = mg/dL MG-[address], [facility] NITRITES NEGATIVE NEGATIVE MG/DL MG-[address], [facility] LEUKOCYTES (U) NEGATIVE NEGATIVE MG-[address], [facility] URINE SPECIMEN OBTAINED BY CLEAN CATCH PROCEDURE / Unknown 04/05/2025 Tracy Olivares MD URINE ORDERABLES Final Result Performing Organization Address City/[facility]/ZIP Co de Phone Number MG-[address], [facility] [address] [place] [address], * SED RATE, ERYTHROCYTE (ESR) (03/20/2025 10:56 AM CDT) Only the most recent of2 resultswithin the time period is included. Pathologist [facility] SED RATE TNP mm/h [facility] Comment: TEST NOT PERFORMED Duplicate test. 03/20/2025 10:5 6 AM CDT 03/22/2025 4:40 AM CDT Narrative Resulting Agency Comment Performing Organization Information: Site ID: [place] Name: [facility] Address: [address] [place] [address] Director: Mahin Mckeon MD Tracy Olivares MD LABORATORY Final Result Performing Organization Address City/[facility]/ZIP Co de Phone Number [facility] - [place] ORD[facility] [address] [place], [place] [address] * (ABNORMAL) HEMOGLOBIN, GLYCOSYLATED (12/06/2024 11:44 AM CDT) Pathologist [facility] HGB A1C 6.1(H) <5.7 % of total Hgb [facility] [place] Comment: For someone without known diabetes, a [...] A1c for diagnosis of diabetes for children. 12/06/2024 11:4 4 AM CDT 12/06/2024 11:46 AM CDT Narrative [facility] - [place] - 12/07/2024 4:09 AM CDT FASTING:YES FASTING: YES Resulting Agency Comment Performing Organization Information: Site ID: [place] [facility]: [facility] Address: [facility] [place] [address] Director: Mahin Mckoen Tracy Olivares MD LABORATORY Final Result [facility] - [place] [email or web address] [place], [place] [id number] [place] [id number], * LIPID PANEL (12/06/2024 11:44 AM CDT) [facility] CHOLESTEROL 129 <200 mg/dL [place] [place] HDL 66 > OR = 50 mg/dL [place] [place] TRIGLYCERIDES 75 <150 mg/dL [place] [place] LDL (CALCULATED) 47 mg/dL (calc) [place] [place] Comment: Reference range: <100 Desirable range <100 mg/dL for primary prevention; <70 mg/dL for patients with CHD or diabetic patients with > or = 2 CHD risk factors. LDL-C is now calculated using the Go calculation, which is a validated novel method providing better accuracy than the Friedewald equation in the estimation of LDL-C. Buddy ANAND et al. PORTER. 2013;310(19): 7905-6399 (http://education.SocialThreader/faq/JQQ997) CHOL/HDL RATIO 2.0 <5.0 (calc) [place] [place] NON HDL CHOLESTEROL 63 <130 mg/dL (calc) [place] [place] Comment: For patients with diabetes plus 1 major ASCVD risk factor, treating to a non-HDL-C goal of <100 mg/dL (LDL-C of <70 mg/dL) is considered a therapeutic option. 12/06/2024 11:4 4 AM CDT 12/06/2024 11:46 AM CDT Narrative [facility] [place] [facility] - 12/07/2024 4:09 AM CDT FASTING:YES FASTING: YES Resulting Agency Comment Performing Organization Information: Site ID: Name: [facility] Address: [facility] [place] [address] Director: Mahin Mckeon Tracy Olivares MD LABORATORY Final Result [facility] - [place] [facility] [address], * MAMMOGRAM GENERIC (SCAN ORDER) (05/10/2024) Anatomical Region Laterality Modality Other 05/10/2024 [facility] Scanned SCANNING Final Resu lt * DIABETIC RETINOPATHY EXAM (NEGATIVE)(SCAN) (02/02/2023) [facility] Scanned SCANNING Final Resu lt Performing Organization Address [facility] Co de Phone Number [facility] * BONE DENSITY/DEXA (03/17/2021 12:00 AM CDT) Anatomical Region Laterality Modality Bone Bone Density 03/17/2021 Tracy Olivares MD DEXA Final Result * HEPATITIS C ANTIBODY (03/03/2021 11:09 AM CDT) HEPATITIS C AB NON-REACTI VE NON-REACT PATRIA 03/04/2021 6:57 PM CDT [facility] Comment: ANTIBODIES TO HCV NOT DETECTED. DOES NOT EXCLUDE THE POSSIBILITY OF EXPOSURE TO HCV. 03/03/2021 11:0 9 AM CDT Tracy Olivares MD LABORATORY Final Result [facility] [address] [place] [address], [id number] * COLONOSCOPY GENERIC (05/26/2020) 05/26/2020 Narrative 05/26/2020 Ordered by an unspecified provider. us Documents Scanned SCANNING Final Result from Last 3 Months or Most Recently Relevant to Health Maintenance Insurance [employer] Care Teams Master In Chancery Relationship Specialty Start Date End Date Tracy Olivares MD [address] [facility] [address] [place] [address] PCP - General INTERNAL MEDICINE 01/02/21 Nathan Baig MD [address] [address] Consulting Physician Internal Medicine Pulmonary Disease 09/16/21
--- OUTSIDE RECORDS SUMMARY | 2025-04-14 10:39 | XMS_ITS | Encounter Summary ---
Author Organization [facility] Address [address] [place] [address] Care Team Providers Care Compliance Reviewer Name Role Phone Tracy Olivares MD Primary Care Provider [phone] Nathan Baig MD Unavailable [phone] Encounter Details Date Type Department Care Team (Latest Contact Info) Description 03/22/2025 Results Follow-Up [facility] Medical Group Multispecialty Care - [place] [address] [address] [place] [address] Tracy Olivares MD [address] [place] [address] [address] [place] [address] COMPREHENSIVE METABOLIC PANEL, SED RATE, ERYTHROCYTE (ESR), C-REACTIVE PROTEIN, Additional followed-up results: 2 Social History Tobacco Use Types Packs/Day Years [...] Sex Assigned at Female 11/14/2024 10:21 AM PORTFOLIO ADMINISTRATOR Legal Sex Female 8:25 PM CDT Gender Identity Female 11/14/2024 10:21 AM PORTFOLIO ADMINISTRATOR Sexual Orientation Straight 11/14/2024 10 :21 AM PORTFOLIO ADMINISTRATOR documented as of this encounter Plan of Treatment Upcoming Encounters Date Type Department Care Team (Late st Contact Info) Description 05/29/2025 11:00 AM CDT Office Visit [facility] Pulmonology Specialty Clinic - [address] [address] Nathan Baig MD [address] [address] 07/24/2025 10:40 AM PORTFOLIO ADMINISTRATOR Office Visit [facility] Multispecialty Care - [place] [address] [address] [place] [address] Tracy Olivares MD [address] [place] [address] documented as of this encounter Visit Diagnoses Not on filedocumented in this encounter Additional Health Concerns Assessment Noted Time PHQ-9 Depression Total Score: 2 09/14/19 24 11:30 AM PORTFOLIO ADMINISTRATOR documented as of this encounter Care Teams Compliance Reviewer Relationship Specialty Start Date End Date Tracy Olivares MD [address] [place] [address] PCP - General INTERNAL MEDICINE 01/02/21 Nathan Baig MD 3 [facility] [address] [place] [address] Consulting Physician Internal Medicine Pulmonary Disease 09/16/21 documented as of this encounter
--- OUTSIDE RECORDS SUMMARY | 2025-04-14 10:39 | XMS_ITS | Encounter Summary ---
Author Organization [facility] Address [address] [place] [address] Care Team Providers Care Tip Stitcher Name Role Phone Tracy Olivares MD Primary Care Provider [phone] Nathan Baig MD Unavailable [phone] Marisel Mancini RN Unavailable [phone] Encounter Details Date Type Department Care Team (Latest Contact Info) Description 02/11/2021 Shape Pharmaceuticalshart Message Enc [facility] Medical Group Multispecialty Care - [place] [address] [place] [address] [address] [place] [address] Tracy Olivares MD [address] [facility] [address] [place] [address] medication refilled. Social History Tobacco Use Types [...] Sex Assigned at Female 11/14/2024 10:21 AM STEAM SERVICE INSPECTOR Legal Sex Female 8:25 PM CDT Gender Identity Female 11/14/2024 10:21 AM STEAM SERVICE INSPECTOR Sexual Orientation Straight 11/14/2024 10 :21 AM STEAM SERVICE INSPECTOR COVID-19 Exposure Response Date Recorded In the last month, have you been in contact with someone who was confirmed or suspected to have Coronavirus / COVID-19? No / Unsure 02/06/2021 1:55 PM CDT documented as of this encounter Plan of Treatment Upcoming Encounters Date Type Department Care Team (Late st Contact Info) Description 05/29/2025 11:00 AM CDT Office Visit [facility] Medical [facility] Pulmonology Specialty Clinic - [place] [address] [address] Nathan Baig MD [address] [address] 07/24/2025 10:40 AM STEAM SERVICE INSPECTOR Office Visit [facility] Multispecialty Care - [place] [address] [address] [place] [address] Tracy Olivares MD [facility] [address] [address] documented as of this encounter Visit Diagnoses [...] documented as of this encounter Care Teams Tip Stitcher Relationship Specialty Start Date End Date Tracy Olivares MD [address] [place] [address] PCP - General INTERNAL MEDICINE 01/02/21 Nathan Baig MD [address] [id number] Consulting Physician Internal Medicine Pulmonary Disease 09/16/21 Marisel Mancini, RN [address] [place] [address] Corporate Quality Engineer (Ambulatory) REGISTERED NURSE 06/28/24 08/07/24 documented as of this encounter
--- OUTSIDE RECORDS SUMMARY | 2025-04-14 10:39 | XMS_ITS | Encounter Summary ---
Author Organization [facility] Address [address] [place] [address] Care Team Providers Care Filenet P8 Developer Name Role Phone Tracy Olivares MD Primary Care Provider [phone] Nathan Baig MD Unavailable [phone] Marisel Mancini RN Unavailable [phone] Encounter Details Date Type Department Care Team (Late st Contact Info) Description 03/14/2024 MyChart Message Enc [facility] Medical Group Multispecialty Care - [place] [address] [place] [address] Alesia Rosario, GLORIA [address] [place] [address] call Social History Tobacco Use [...] Sex Assigned at Female 11/14/2024 10:21 AM GRINDER WATCH PARTS Legal Sex Female 8:25 PM CDT Gender Identity Female 11/14/2024 10:21 AM GRINDER WATCH PARTS Sexual Orientation Straight 11/14/2024 10 :21 AM GRINDER WATCH PARTS documented as of this encounter Plan of Treatment Upcoming Encounters Date Type Department Care Team (Late st Contact Info) Description 05/29/2025 11:00 AM CDT Office Visit [facility] Pulmonology Specialty Clinic - [address] [address] Nathan Baig MD [address] [address] 07/24/2025 10:40 AM GRINDER WATCH PARTS Office Visit [facility] Multispecialty Care - [place] [address] [address] [place] [address] Tracy Olivares MD [facility] [address] [address] documented as of this encounter Visit Diagnoses Not on filedocumented in this encounter Additional Health Concerns Assessment Noted Time PHQ-9 Depression Total Score: 2 09/14/19 24 11:30 AM GRINDER WATCH PARTS documented as of this encounter Care Teams Filenet P8 Developer Relationship Specialty Start Date End Date Tracy Olivares MD [address] [place] [address] PCP - General INTERNAL MEDICINE 01/02/21 Nathan Baig MD [address] [address] Consulting Physician Internal Medicine Pulmonary Disease 09/16/21 Marisel Mancini, RN [address] [place] [address] Translator And Interpreter (Ambulatory) REGISTERED NURSE 06/28/24 08/07/24 documented as of this encounter
--- OUTSIDE RECORDS SUMMARY | 2025-04-14 12:53 | XMS_ITS | Encounter Summary ---
Author Organization [facility] Address [address] [place] [address] Care Team Providers Care Circle Saw Operator Name Role Phone Tracy Olivares MD Primary Care Provider [phone] Nathan Baig MD Unavailable [phone] Marisel Mancini RN Unavailable [phone] Encounter Details Date Type Department Care Team (Late st Contact Info) Description 02/08/2023 [employer] Message Enc [facility] Medical Group Multispecialty Care - [address] [place] [address] [employer] [facility], [facility] Provider Mammogram results Social History Tobacco Use [...] Sex Assigned at Female 11/14/2024 10:21 AM ELECTRICAL TESTS SUPERVISOR Legal Sex Female 8:25 PM CDT Gender Identity Female 11/14/2024 10:21 AM ELECTRICAL TESTS SUPERVISOR Sexual Orientation Straight 11/14/2024 10 :21 AM ELECTRICAL TESTS SUPERVISOR COVID-19 Exposure Response Date Recorded In the last 10 days, have yo u been in contact with someone who was confirmed or suspected to have Coronavirus/COVID-19? No / Unsure 01/24/2023 10:26 AM CDT documented as of this encounter Plan of Treatment Upcoming Encounters Date Type Department Care Team (Late st Contact Info) Description 05/29/2025 11:00 AM CDT Office Visit [facility] Medical [facility] Pulmonology Specialty Clinic - [address] [place] [address] [address] Nathan Baig MD [address] [address] 07/24/2025 10:40 AM ELECTRICAL TESTS SUPERVISOR Office Visit [facility] Multispecialty Care - [place] [address] [address] [place] [address] Tracy Olivares MD [address] [place] [address] documented as of this encounter Visit Diagnoses Not on filedocumented in this encounter Additional Health Concerns Assessment Noted Time PHQ-9 Depression Total Score: 11 023 1:30 PM CDT documented as of this encounter Care Teams Circle Saw Operator Relationship Specialty Start Date End Date Tracy Olivares MD [address] [place] [address] PCP - General INTERNAL MEDICINE 01/02/21 Nathan Baig MD [address] [address] Consulting Physician Internal Medicine Pulmonary Disease 09/16/21 Marisel Mancini, RN [address] [place] [address] Sharepoint Net Developer (Ambulatory) REGISTERED NURSE 06/28/24 08/07/24 documented as of this encounter
--- OUTSIDE RECORDS SUMMARY | 2025-04-14 12:53 | XMS_ITS | Encounter Summary ---
Author Organization [facility] Address [address] [place] [address] Care Team Providers Care Chief Business Officer Name Role Phone Tracy Olivares MD Primary Care Provider [phone] Nathan Baig MD Unavailable [phone] Marisel Mancini RN Unavailable [phone] Encounter Details Date Type Department Care Team (Late st Contact Info) Description 04/04/2023 Therapy Plan [facility] Physical Therapy [address] [place] [address] Ly Collado, [place] [address] Social History Tobacco Use Types Packs/Day Years [...] Sex Assigned at Female 11/14/2024 10:21 AM SENIOR CAPITAL MARKETS SPECIALIST Legal Sex Female 8:25 PM CDT Gender Identity Female 11/14/2024 10:21 AM SENIOR CAPITAL MARKETS SPECIALIST Sexual Orientation Straight 11/14/2024 10 :21 AM SENIOR CAPITAL MARKETS SPECIALIST documented as of this encounter Plan of Treatment Upcoming Encounters Date Type Department Care Team (Late st Contact Info) Description 05/29/2025 11:00 AM CDT Office Visit [facility] Pulmonology Specialty Clinic - [address] [address] Nathan Baig MD 3 [facility] [address] [place] [address] 07/24/2025 10:40 AM SENIOR CAPITAL MARKETS SPECIALIST Office Visit [facility] Multispecialty Care - [place] [address] [address] [place] [address] Tracy Olivares MD [address] [place] [address] documented as of this encounter Visit Diagnoses Not on filedocumented in this encounter Additional Health Concerns Assessment Noted Time PHQ-9 Depression Total Score: 11 023 1:30 PM CDT documented as of this encounter Care Teams Chief Business Officer Relationship Specialty Start Date End Date Tracy Olivares MD [address] [place] [address] PCP - General INTERNAL MEDICINE 01/02/21 Nathan Baig MD 3 [facility] [address] [place] [address] Consulting Physician Internal Medicine Pulmonary Disease 09/16/21 Marisel Mancini, RN [address] [place], [place] [address] Payroll Clerk (Ambulatory) REGISTERED NURSE 06/28/24 08/07/24 documented as of this encounter
--- OUTSIDE RECORDS SUMMARY | 2025-04-14 12:53 | XMS_ITS | Encounter Summary ---
Author Organization [facility] Address [facility] [place] [address] Care Team Providers Care Risk Management Specialist Name Role Phone Tracy Olivares MD Primary Care Provider [phone] Nathan Baig MD Unavailable [phone] Marisel Mancini RN Unavailable [phone] Encounter Details Date Type Department Care Team (Late st Contact Info) Description 03/09/2023 MyChart Message Enc [facility] Medical Group - [facility] [address] [place], [place] [address] [employer], [facility] Provider Air Quality Message Social [...] Sex Assigned at Female 11/14/2024 10:21 AM SATURATION EQUIPMENT OPERATOR Legal Sex Female 8:25 PM CDT Gender Identity Female 11/14/2024 10:21 AM SATURATION EQUIPMENT OPERATOR Sexual Orientation Straight 11/14/2024 10 :21 AM SATURATION EQUIPMENT OPERATOR COVID-19 Exposure Response Date Recorded In the last 10 days, have yo u been in contact with someone who was confirmed or suspected to have Coronavirus/COVID-19? No / Unsure 02/14/2023 1:38 PM CDT documented as of this encounter Plan of Treatment Upcoming Encounters Date Type Department Care Team (Late st Contact Info) Description 05/29/2025 11:00 AM CDT Office Visit [facility] Medical [facility] Pulmonology Specialty Clinic - [address] [address] Nathan Baig MD 3 [facility] [address] [place] [address] 07/24/2025 10:40 AM SATURATION EQUIPMENT OPERATOR Office Visit [facility] Multispecialty Care - [place] [address] [address] [place] [address] Tracy Olivares MD [address] [place] [address] documented as of this encounter Visit Diagnoses Not on filedocumented in this encounter Additional Health Concerns Assessment Noted Time PHQ-9 Depression Total Score: 11 023 1:30 PM CDT documented as of this encounter Care Teams Risk Management Specialist Relationship Specialty Start Date End Date Tracy Olivares MD [address] [place] [address] PCP - General INTERNAL MEDICINE 01/02/21 Nathan Baig MD 3 [facility] [address] [place] [address] Consulting Physician Internal Medicine Pulmonary Disease 09/16/21 Marisel Mancini, RN [address] [place], [place] [address] Floor Press Operator (Ambulatory) REGISTERED NURSE 06/28/24 08/07/24 documented as of this encounter
--- OUTSIDE RECORDS SUMMARY | 2025-04-14 12:54 | XMS_ITS | Clinical Summary ---
Author Organization [facility] Medical Office Building B Address [address] [place] [address] Care Team Providers Care Food Sales Clerk Name Role Phone Omid Douglass MD Primary Care Provider [phone] Nathan Baig MD Unavailable [phone] Tracy Olivares MD Unavailable Allergies Active Allergy [...] 06/27/2024 Assessment & Plan (07/16/2024 1:40 PM CREDIT CARD SPECIALIST): BP stable. Previously on losartan 100mg, hydrochlorothiazide [...] (Completed) Assessment & Plan (07/23/2024 1:41 PM CREDIT CARD SPECIALIST): L4-L5 Osteomyelitis/discitis with epidural phlegmon. S/p IR [...] patches. Assessment & Plan (07/16/2024 1:36 PM CREDIT CARD SPECIALIST): L4-L5 Osteomyelitis/discitis with epidural phlegmon. S/p IR [...] well controlled. Continue Tyl 1000mg BID, PRN Jefferson q8h, Increase Gabapentin to 300mg TID, Schedule Flexeril TID, & start Lidoderm patch. Assessment & Plan (07/14/2024 2:58 PM CDT): Subacute, currently stable. Continue cefepime 2 g IV every 12 hours, cyclobenzaprine 10 mg t.i.d. p.r.n. spasm, gabapentin and Jefferson as scripted. Consult physical and occupational therapy [...] sciatica Assessment & Plan (07/16/2024 1:39 PM CREDIT CARD SPECIALIST): Increased, SEE ABOVE Social History Tobacco Use [...] on file Legal Sex Female 12:03 AM CREDIT CARD SPECIALIST Gender Identity Not on file Sexual Orientation Not on file Obstetrics History Last Filed Vital Signs Vital Sign Reading Time Taken Comments Blood Pressure 168/103 10/15/2024 8:45 AM CREDIT CARD SPECIALIST Pulse 95 10/15/2024 8:45 AM CREDIT CARD SPECIALIST Temperature 36.4 C (97.6 F) 10/15/2024 8:45 AM CREDIT CARD SPECIALIST Respiratory Rate 18 07/31/2024 11:32 AM CREDIT CARD SPECIALIST Oxygen Saturation 99% 10/15/2024 8:45 AM CREDIT CARD SPECIALIST Inhaled Oxygen Concentration - - Weight 124 kg (273 lb 6.4 oz) 10/15/2024 8:45 AM CREDIT CARD SPECIALIST Height 167.6 cm (5' 5.98) 10/15/2024 8:45 AM CS T Body Mass Index 44.15 10/15/2024 8:45 AM CREDIT CARD SPECIALIST Plan of Treatment Health Maintenance Due Date [...] Diagnosis Comments EGFR Routine 10/15/2024 9:51 AM CREDIT CARD SPECIALIST Osteomyelitis of lumbar spine (HCC) from Last 3 Months or Most Recently Relevant to Health Maintenance Results * eGFR (10/15/2024 9:51 AM CREDIT CARD SPECIALIST) eGFR 81 >=60 mL/min/1. 73 m2 Comment: [...] last reviewed 2021. Blood 10/15/2024 9:51 AM CREDIT CARD SPECIALIST 10/15/2024 12:55 PM CREDIT CARD SPECIALIST Mia Sanchez MD LAB BLOOD ORDERABLES Final Result Performing Organization Address City/State/[facility] Co de Phone Number [facility] Department [place] [address] from Last 3 Months or Most Recently Relevant to Health Maintenance Insurance [address] [place] [id number] [place] [address] [place] [employer] Advance Directives For more information, please contact: [phone] * Full Code (Latest Code Status on File) Date Activated Date Inactivated Comments 07/30/2024 11:54 PM 07/31/2024 4:45 PM Care Teams Food Sales Clerk Relationship Specialty Start Date End Date Omid Douglass MD [facility] [place] [address] PCP - General 12/15/11 Nathan Baig MD [address] [address] Pulmonary Disease 08/15/24 Tracy Olivares MD [address] [facility] [address] [place] [address] Internal Medicine 08/15/24
--- OUTSIDE RECORDS SUMMARY | 2025-04-14 12:54 | XMS_ITS | Encounter Summary ---
Author Organization [facility] Address [address] [place] [address] Care Team Providers Care Roll Hauler Name Role Phone Tracy Olivares MD Primary Care Provider [phone] Nathan Baig MD Unavailable [phone] Marisel Mancini RN Unavailable [phone] Encounter Details Date Type Department Care Team (Late st Contact Info) Description 02/08/2024 [email or web address] Message Enc [facility] Multispecialty Care - [place] [address] [place] [address] Stephanie, [facility] Provider Xray results Social History Tobacco Use [...] Sex Assigned at Female 11/14/2024 10:21 AM DAIRY INSPECTOR Legal Sex Female 8:25 PM CDT Gender Identity Female 11/14/2024 10:21 AM DAIRY INSPECTOR Sexual Orientation Straight 11/14/2024 10 :21 AM DAIRY INSPECTOR documented as of this encounter Plan of Treatment Upcoming Encounters Date Type Department Care Team (Late st Contact Info) Description 05/29/2025 11:00 AM CDT Office Visit [facility] Medical [facility] - [place] [address] [address] [facility] [address] [place] [address] Nathan Baig MD [address] [address] 07/24/2025 10:40 AM DAIRY INSPECTOR Office Visit [facility] Medical Group Multispecialty Care - [place] [address] [address] [place] [address] Tracy Olivares MD [facility] [address] documented as of this encounter Visit Diagnoses Not on filedocumented in this encounter Additional Health Concerns Assessment Noted Time PHQ-9 Depression Total Score: 2 09/14/19 24 11:30 AM DAIRY INSPECTOR documented as of this encounter Care Teams Roll Hauler Relationship Specialty Start Date End Date Tracy Olivares MD [address] [place] [address] PCP - General INTERNAL MEDICINE 01/02/21 Nathan Baig MD [address] [address] Consulting Physician Internal Medicine Pulmonary Disease 09/16/21 Marisel Mancini, RN [address] [place] [address] Chain Offbearer (Ambulatory) REGISTERED NURSE 06/28/24 08/07/24 documented as of this encounter
--- OUTSIDE RECORDS SUMMARY | 2025-04-14 12:54 | XMS_ITS | Encounter Summary ---
Author Organization [facility] Address [address] [place] [address] Care Team Providers Care Spray Machine Tender Name Role Phone Tracy Olivares MD Primary Care Provider [phone] Nathan Baig MD Unavailable [phone] Marisel Mancini RN Unavailable [phone] Encounter Details Date Type Department Care Team (Late st Contact Info) Description 05/10/2022 Ebook Glue Message Enc [facility] Medical Group Multispecialty Care - [address] [place] [address] [place], [facility] Provider Lab Test Social History Tobacco [...] Sex Assigned at Female 11/14/2024 10:21 AM LIQUID NATURAL GAS PLANT OPERATOR Legal Sex Female 8:25 PM CDT Gender Identity Female 11/14/2024 10:21 AM LIQUID NATURAL GAS PLANT OPERATOR Sexual Orientation Straight 11/14/2024 10 :21 AM LIQUID NATURAL GAS PLANT OPERATOR COVID-19 Exposure Response Date Recorded In [...] [facility] [place] [facility] - [address] [address] Nathan Baig MD [address] [address] 07/24/2025 10:40 AM LIQUID NATURAL GAS PLANT OPERATOR Office Visit [facility] Multispecialty Care - [place] [address] [address] [place] [address] Tracy Olivares MD [address] [place] [address] documented as of this encounter Visit Diagnoses Not on filedocumented in this encounter Additional Health Concerns Infection Onset Date Last Indicated Resolved Time COVID-19 Rule Out 05/20/2022 05/20/2022 05/20/2022 10:50 AM CDT COVID-19 Rule Out 05/20/2022 05/20/2022 05/21/2022 1:20 AM CDT Assessment Noted Time PHQ-9 Depression Total Score: 5 01/06/20 10:48 AM CDT documented as of this encounter Care Teams Spray Machine Tender Relationship Specialty Start Date End Date Tracy Olivares MD [address] [place] [address] PCP - General INTERNAL MEDICINE 01/02/21 Nathan Baig MD [address] [address] Consulting Physician Internal Medicine Pulmonary Disease 09/16/21 Marisel Mancini RN [address] [place] [address] Office Inspector (Ambulatory) REGISTERED NURSE 06/28/24 08/07/24 documented as of this encounter
--- OUTSIDE RECORDS SUMMARY | 2025-04-14 12:54 | XMS_ITS | Encounter Summary ---
Author Organization [facility] Address [address] [place] [address] Care Team Providers Care Flower Shop Laborer/Designer Name Role Phone Tracy Olivares MD Primary Care Provider [phone] Nathan Baig MD Unavailable [phone] Encounter Details Date Type Department Care Team (Latest Contact Info) Description 03/22/2025 Results Follow-Up [facility] Medical Group Multispecialty Care - [place] [address] [address] [place] [address] Tracy Olivares MD [address] [place] [address] [address] [place] [address] COMPREHENSIVE METABOLIC PANEL, SED RATE, [...] Sex Assigned at Female 11/14/2024 10:21 AM WIRING MECHANIC Legal Sex Female 8:25 PM CDT Gender Identity Female 11/14/2024 10:21 AM WIRING MECHANIC Sexual Orientation Straight 11/14/2024 10 :21 AM WIRING MECHANIC documented as of this encounter Plan of Treatment Upcoming Encounters Date Type Department Care Team (Late st Contact Info) Description 05/29/2025 11:00 AM CDT Office Visit [facility] Pul[facility] Specialty Clinic - [address] [address] Nathan Baig MD [address] [address] 07/24/2025 10:40 AM WIRING MECHANIC Office Visit [facility] Multispecialty Care - [place] [address] [address] [place] [address] Tracy Olivares MD [address] [place] [address] documented as of this encounter Visit Diagnoses Not on filedocumented in this encounter Additional Health Concerns Assessment Noted Time PHQ-9 Depression Total Score: 2 09/14/19 24 11:30 AM WIRING MECHANIC documented as of this encounter Care Teams Flower Shop Laborer/Designer Relationship Specialty Start Date End Date Tracy Olivares MD [address] [place] [address] PCP - General INTERNAL MEDICINE 01/02/21 Nathan Baig MD 3 [facility] [address] [place] [address] Consulting Physician Internal Medicine Pulmonary Disease 09/16/21 documented as of this encounter
--- OUTSIDE RECORDS SUMMARY | 2025-04-14 12:54 | XMS_ITS | Clinical Summary ---
Author Organization [facility] Address [facility] [place] [address] Care Team Providers Care Receiving Tank Operator Name Role Phone Tracy Olivares MD Primary Care Provider [phone] Nathan Baig MD Unavailable [phone] Allergies Active Allergy Reactions Criticality Noted [...] without long-term current use of insulin ([facility]) Use daily to check blood sugar. Okay to substitute with whichever one insurance will cover thank you. 1 kit 05/08/20 24 Active Blood Gluc Meter Disp-Strips (BLOOD GLUCOSE METER DISPOSABLE) DeviceIndications:T ype 2 diabetes mellitus with hyperglycemia, without long-term current use of insulin ([facility]) Use daily to check blood sugar. Okay to substitute with whichever brand insurance will cover. 100 each 11 05/08/20 24 Active Blood Glucose Monitoring Suppl (ONE TOUCH ULTRA 2) w/Device KitIndications:Type 2 diabetes mellitus with hyperglycemia, without long-term current use of insulin ([facility]) Check blood sugar twice a day before meals. 1 kit 06/06/20 24 Active Glucose Blood test stripIndications:Ty pe 2 diabetes mellitus with hyperglycemia, without long-term current use of insulin ([facility]) Check blood sugar twice a day before meals. 300 strip 1 06/06/20 24 Active Lancets (ONETOUCH ULTRASOFT) lancetsIndications: Type 2 diabetes mellitus with hyperglycemia, without long-term current use of insulin ([facility]) Check blood sugar [...] without long-term current use of insulin ([facility]) 1 strip by Other route as needed. Use as instructed 100 strip 3 08/01/20 24 Active Lancets MiscIndications:Typ e 2 diabetes mellitus with hyperglycemia, without long-term current use of insulin ([facility]) [...] BREATH ACTIVATEDIndication s:Pulmonary emphysema, unspecified emphysema type ([facility]) [...] without long-term current use of insulin ([facility]) Take 1 tablet [...] hyperglycemia, without long-term current use of insulin ([facility]) Take 1 tablet (25 [...] obstructive pulmonar y disease, unspecified COPD type ([facility]) 11/14/2024 Class 3 severe obesity due t o excess calories without serious comorbidity with body mass index (BMI) of 50.0 to 59.9 in adult 11/14/2024 Diabetic polyneuropathy asso ciated with diabetes mellitus due to underlying condition ([facility]) 11/14/2024 Osteomyelitis of lumbar spine ([facility]) 08/21/2024 group home (current) use of insulin ([facility]/ [facility]) 03/20/2024 Type 2 diabetes mellitus wit h hyperglycemia, without long-term current use of insulin ([facility]) 03/20/2024 Moderate persistent asthma without complication ([facility]) 09/23/2023 Mixed hyperlipidemia 01/05/2022 RLS (restless legs [...] hyperglycemia, without long-term current use of insulin ([facility]) 01/05/2022 04/02/2022 Pulmonary emphysema ([facility]) 04/17/2021 09/23/2023 Overview (04/27/2021): [...] Routine general medical exam ination at a [facility] facility 04/20/2012 01/05/2021 Encounters Date Type Department Care Team Description 04/12/2025 Telephone [place] [address] [address] [place] [address] Tracy Olivares MD Follow Up Call 04/05/2025 9:40 AM CDT Office Visit [address] [place] [address] Tracy Olivares MD Follow Up (Acute - right hip and pelvis pain. SX started about 2 weeks ago) 04/05/2025 Results Follow-Up [address] [place] [address] Tracy Olivares MD XR HIP LUCINA 2V+PELVIS, URINALYSIS, AUTO, COMPLETE, URINE BACTERIA CULTURE, Additional followed-up results: 3 04/05/2025 Travel 03/22/2025 [facility] [address] [place] [address] Tracy Olivares MD COMPREHENSIVE METABOLIC PANEL, SED RATE, ERYTHROCYTE (ESR), C-REACTIVE PROTEIN, Additional followed-up results: 2 03/22/2025 [facility] [place] [address] [facility] [address] [place], [place] [id number] Tracy Olivares MD Medication Information 03/20/2025 10:20 AM CDT Office Visit [facility] [place] [address] [place] [address] Tracy Olivares MD Follow Up (Chronic medical issues); Hypertension; Hyperlipidemia; GERD; Diabetes; Back Pain 03/20/2025 Travel 02/14/2025 Telephone [facility] [place] [address] [place] [address] Tracy Olivares MD Medication 02/05/2025 Scan MG [...] Sex Assigned at Female 11/14/2024 10:21 AM STONE ENGRAVER Legal Sex Female 8:25 PM CDT Gender Identity Female 11/14/2024 10:21 AM STONE ENGRAVER Sexual Orientation Straight 11/14/2024 10 :21 AM STONE ENGRAVER Last Filed Vital Signs Vital Sign Reading [...] Description 05/29/2025 11:00 AM CDT Office Visit [facility] Medical Group Pul[facility]ology Specialty [facility] - [address] [place] [address] Nathan Baig MD [address] [place] [address] 07/24/2025 10:40 AM STONE ENGRAVER Office Visit [facility] Medical [facility] - [place] [address] [facility] [address] [place] [address] Tracy Olivares MD [address] [facility] [address] [place] [address] Health Maintenance Due Date Last Done Comments [...] 04/02/2022, 03/03/2021, Additional history exists PHQ-2 (Physician [place]) Completed 11/14/2024 Meningococcal B Vaccine Aged Out [...] 3:20 PM Narrative 04/05/2025 3:22 PM CDT [facility] [place] [id number] Examination: XR HIP LUCINA 2V+PELVIS Exam time: 04/05/2025 10:56 AM Clinical history: Chronic bilateral hip pain Comparison: 08/22/2024 pelvis and bilateral hips Technique: AP view of the pelvis and each hip joint. Small [id number] AP and lateral images of each hip [...] Procedure Note Lebron Forbes MD - 04/05/2025 [facility] Internal [facility] - [address] [address] Examination: XR HIP LUCINA 2V+PELVIS Exam time: 04/05/2025 10:56 AM Clinical history: Chronic bilateral hip pain Comparison: 08/22/2024 pelvis and bilateral hips Technique: AP view of the pelvis and each hip joint. Small [id number] and lateral images of each hip joint. [...] CULTURE (04/05/2025 10:13 AM CDT) CULTURE RESULT [facility] Comment: CULTURE, URINE, ROUTINE Micro Number: [id number] Test Status: Final Specimen Source: Urine Specimen [...] Agency Comment Performing Organization Information: Site ID: [id number] Name: [employer] Address: [address] [place] [address] Director: Mahin Mckeon MD Tracy Olivares MD MICROBIOLOGY - GENERAL ORDERABLE S Final Result [facility] - [place] [facility]DERS [employer] [facility] [address] [place] [address], [place] * (ABNORMAL) COMPREHENSIVE METABOLIC PANEL (04/05/2025 10:13 AM CDT) Only the most recent of2 resultswithin the time period is included. GLUCOSE 110(H) 65 - 99 mg/dL [facility] Comment: Fasting reference interval For someone without known diabetes, a glucose value between 100 and 125 mg/dL is consistent with prediabetes and should be confirmed with a follow-up test. BUN 13 7 - 25 mg/dL [facility] CREATININE S/P/B 0.76 0.50 - 1.05 mg/dL [facility] GFR ESTIMATE 85 > OR = 60 mL/min/1. 73m2 [facility] BUN CREATININE RATIO SEE NOTE: (calc) [facility] Comment: Not Reported: BUN and Creatinine are within reference range. SODIUM S/P/B 138 135 - 146 mmol/L [facility] POTASSIUM S/P/B 4.0 3.5 - 5.3 mmol/L [facility] CHLORIDE S/P/B 101 98 - 110 mmol/L [facility] [place] CO2 29 20 - 32 mmol/L [facility] CALCIUM S/P/B 9.7 8.6 - 10.4 mg/dL [facility] TOTAL PROTEIN S/P/B 7.0 6.1 - 8.1 g/dL [facility] [place] ALBUMIN S/P/B 3.9 3.6 - 5.1 g/dL [facility] [place] GLOBULIN 3.1 1.9 - 3.7 g/dL (calc) [facility] ALBUMIN/GLOBULI N RATIO 1.3 1.0 - 2.5 (calc) [facility] BILIRUBIN TOTAL S/P/B 0.6 0.2 - 1.2 mg/dL [facility] ALKALINE PHOSPHATASE S/P/B 149 37 - 153 U/L [facility] AST 12 10 - 35 U/L [facility] ALT 9 6 - 29 U/L [facility] 04/05/2025 10:1 3 AM CDT 04/06/2025 6:20 AM CDT Narrative Resulting Agency Comment Performing Organization Information: Site ID: [id number] Name: [employer] Address: [id number] [place] [address] Director: Mahin Mckeon MD Tracy Olivares MD LABORATORY Final Result Performing Organization Address [facility] de Phone Number [employer] DEEPTI Robert [facility] [employer] [address] [address], * (ABNORMAL) C-REACTIVE PROTEIN (04/05/2025 10:13 AM CDT) Only the most recent of2 resultswithin the time period is included. Pathologist [facility] C-REACTIVE PROTEIN 32.8(H) <8.0 mg/L [facility] 04/05/2025 10:1 3 AM CDT 04/06/2025 6:20 AM CDT Narrative Resulting Agency Comment Performing Organization Information: Site ID: [place] Name: [facility] Address: [address] [place] [id number] Director: Mahin Mckeon MD Tracy Olivares MD LABORATORY Final Result Performing Organization Address [facility] de Phone Number [facility] [employer] [id number] [place] [address] * CBC W/DIFF AUTOMATED (04/05/2025 10:13 AM CDT) Only the most recent of2 resultswithin the time period is included. Pathologist [facility] WBC 6.6 3.8 - 10.8 Thousand/u L [employer] [facility] RBC 4.40 3.80 - 5.10 Million/uL [facility] HGB 13.0 11.7 - 15.5 g/dL [employer] [facility] HCT 40.6 35.0 - 45.0 % [facility] MCV 92.3 80.0 - 100.0 fL [facility] MCH 29.5 27.0 - 33.[address] [facility] MCHC 32.0 32.0 - 36.0 g/dL [facility] Comment: For adults, a slight [...] T [facility] [place] LYMPHOCYTES 24.4 % [facility] [employer] [place] MONOCYTES 9.0 % [facility] [place] EOSINOPHILS 2.0 % [facility] [place] BASOPHILS 0.5 % [facility] [employer] [place] 04/05/2025 10:1 3 AM CDT 04/06/2025 6:20 AM CDT Narrative Resulting Agency Comment Performing Organization Information: Site ID: [place] Name: [facility] Address: [id number] [place] [address] [place] [address] Director: Mahin Mckeon MD Tracy Olivares MD LABORATORY Final Result ANILA CABAN [facility] DEEPTI [address] [place] [address], [place] * (ABNORMAL) URINALYSIS, AUTO, COMPLETE (04/05/2025) COLOR (U) YELLOW YELLOW MG-[address], [place] TRANSPARENCY CLEAR CLEAR MG-[address], [place] GLUCOSE (U) >=1000 mg/dl(A) NEGATIVE MG/DL MG-[address], [place] BILIRUBIN (U) NEGATIVE NEGATIVE MG-[address], [place] KETONES MG/DL (U) NEGATIVE NEGATIVE MG/DL MG-[address], [place] SPECIFIC GRAVITY (U) 1.015 1.001 - 1.035 MG[address], [place] BLOOD (U) NEGATIVE NEGATIVE MG-[address], [place] U PH 6.0 5.0 - 9.0 MG[address], [place] PROTEIN (U) NEGATIVE NEGATIVE mg/dL MG-[address], [place] UROBILINOGEN 0.2 0.2 - 1.0 EU/dL = mg/dL MG-[address], [place] NITRITES NEGATIVE NEGATIVE MG/DL MG-[address], [place] LEUKOCYTES (U) NEGATIVE NEGATIVE MG-[address], [place] URINE SPECIMEN OBTAINED BY CLEAN CATCH PROCEDURE / Unknown 04/05/2025 Tracy Olivares MD URINE ORDERABLES Final Result Performing Organization Address City/[facility]/ZIP Co de Phone Number MG-[address], [place] [address] [place] [address], * SED RATE, ERYTHROCYTE (ESR) (03/20/2025 10:56 AM CDT) Only the most recent of2 resultswithin the time period is included. Pathologist [facility] SED RATE TNP mm/h [facility] Comment: TEST NOT PERFORMED Duplicate test. 03/20/2025 10:5 6 AM CDT 03/22/2025 4:40 AM CDT Narrative Resulting Agency Comment Performing Organization Information: Site ID: [place] Name: [employer] Address: [address] [place] [address] Director: Mahin Mckeon MD Tracy Olivares MD LABORATORY Final Result Performing Organization Address City/[facility]/ZIP Co de Phone Number [facility] - TYRONE ORDERS [facility] [address] [place], [place] [address] * (ABNORMAL) HEMOGLOBIN, GLYCOSYLATED (12/06/2024 11:44 AM CDT) Pathologist [facility] HGB A1C 6.1(H) <5.7 % of total Hgb [facility] Comment: For someone without known diabetes, [...] Performing Organization Information: Site ID: [place] Name: [facility] Address: [facility] [place] [address] Director: Mahin Mckeon Tracy Olivares MD LABORATORY Final Result [employer] [facility] - TYRONE ORDERS [facility] [employer] [place], [place] [address] [phone], * LIPID PANEL (12/06/2024 11:44 AM CDT) [facility] CHOLESTEROL 129 <200 mg/dL [place] HDL 66 > OR = 50 mg/dL [place] TRIGLYCERIDES 75 <150 mg/dL [place] LDL (CALCULATED) 47 mg/dL (calc) [place] Comment: Reference range: <100 Desirable range <100 mg/dL for primary prevention; <70 mg/dL for patients with CHD or diabetic patients with > or = 2 CHD risk factors. LDL-C is now calculated using the Go calculation, which is a validated novel method providing better accuracy than the Friedewald equation in the estimation of LDL-C. Buddy ANAND et al. PORTER. 2013;310(19): 1987-4327 (http://education.Erydel/faq/BAQ097) CHOL/HDL RATIO 2.0 <5.0 (calc) [place] NON HDL CHOLESTEROL 63 <130 mg/dL (calc) [place] Comment: For patients with diabetes plus 1 major ASCVD risk factor, treating to a non-HDL-C goal of <100 mg/dL (LDL-C of <70 mg/dL) is considered a therapeutic option. 12/06/2024 11:4 4 AM CDT 12/06/2024 11:46 AM CDT Narrative [facility] - [place] ORDERS - 12/07/2024 4:09 AM CDT FASTING:YES FASTING: YES Resulting Agency Comment Performing Organization Information: Site ID: Name: [facility] Address: [facility] [place] [address] Director: Mahin Mckeon Tracy Olivares MD LABORATORY Final Result [employer] [facility] - TYRONE ORDERS Alter-[address] [address], * MAMMOGRAM GENERIC (SCAN ORDER) (05/10/2024) Anatomical Region Laterality Modality Other 05/10/2024 [facility] Scanned SCANNING Final Resu lt * DIABETIC RETINOPATHY EXAM (NEGATIVE)(SCAN) (02/02/2023) [facility] Scanned SCANNING Final Resu lt Performing Organization Address [facility] Co de Phone Number [facility] ONBASE * BONE DENSITY/DEXA (03/17/2021 12:00 AM CDT) Anatomical Region Laterality Modality Bone Bone Density 03/17/2021 Tracy Olivares MD DEXA Final Result * HEPATITIS C ANTIBODY (03/03/2021 11:09 AM CDT) HEPATITIS C AB NON-REACTI VE NON-REACT PATRIA 03/04/2021 6:57 PM CDT [facility] Comment: ANTIBODIES TO HCV NOT DETECTED. DOES NOT EXCLUDE THE POSSIBILITY OF EXPOSURE TO HCV. 03/03/2021 11:0 9 AM CDT Tracy Olivares MD LABORATORY Final Result [facility] [address] [place] [address], [id number] * COLONOSCOPY GENERIC (05/26/2020) 05/26/2020 Narrative 05/26/2020 Ordered by an unspecified provider. us Documents Scanned SCANNING Final Result from Last 3 Months or Most Recently Relevant to Health Maintenance Insurance [employer] Care Teams Receiving Tank Operator Relationship Specialty Start Date End Date Tracy Olivares MD [address] [facility] [address] [place] [address] PCP - General INTERNAL MEDICINE 01/02/21 Nathan Baig MD [address] [address] Consulting Physician Internal Medicine Pulmonary Disease 09/16/21
--- OUTSIDE RECORDS SUMMARY | 2025-04-14 12:54 | XMS_ITS | Encounter Summary ---
Author Organization [facility] Address [address] [place] [address] Care Team Providers Care Fur Finisher Tailor Name Role Phone Tracy Olivares MD Primary Care Provider [phone] Nathan Baig MD Unavailable [phone] Marisel Mancini RN Unavailable [phone] Encounter Details Date Type Department Care Team (Late st Contact Info) Description 03/29/2022 [employer] (Closed) Message Enc [facility] Medical Group Multispecialty Care - [address] [place] [address] [employer], [facility] Provider test results Social History [...] Sex Assigned at Female 11/14/2024 10:21 AM MUSICAL INSTRUMENT MAKER OR REPAIRER Legal Sex Female 8:25 PM CDT Gender Identity Female 11/14/2024 10:21 AM MUSICAL INSTRUMENT MAKER OR REPAIRER Sexual Orientation Straight 11/14/2024 10 :21 AM MUSICAL INSTRUMENT MAKER OR REPAIRER COVID-19 Exposure Response Date Recorded In the last 10 days, have yo u been in contact with someone who was confirmed or suspected to have Coronavirus/COVID-19? No / Unsure 03/24/2022 2:23 PM CDT documented as of this encounter Plan of Treatment Upcoming Encounters Date Type Department Care Team (Late st Contact Info) Description 05/29/2025 11:00 AM CDT Office Visit [facility] Pulmonology Specialty Clinic - [address] [address] Nathan Baig MD [address] [address] 07/24/2025 10:40 AM MUSICAL INSTRUMENT MAKER OR REPAIRER Office Visit [facility] Multispecialty Care [place] [address] [address] [place] [address] Tracy Olivares MD [address] [place] [address] documented as of this encounter Visit Diagnoses Not on filedocumented in this encounter Additional Health Concerns Infection Onset Date Last Indicated Resolved Time COVID-19 Rule Out 05/20/2022 05/20/2022 05/20/2022 10:50 AM CDT COVID-19 Rule Out 05/20/2022 05/20/2022 05/21/2022 1:20 AM CDT Assessment Noted Time PHQ-9 Depression Total Score: 5 01/06/20 22 10:48 AM CDT documented as of this encounter Care Teams Fur Finisher Tailor Relationship Specialty Start Date End Date Tracy Olivares MD [address] [place] [address] PCP - General INTERNAL MEDICINE 01/02/21 Nathan Baig MD [address] [address] Consulting Physician Internal Medicine Pulmonary Disease 09/16/21 Marisel Mancini RN [address] [place] [address] Tacking Stitch Remover (Ambulatory) REGISTERED NURSE 06/28/24 08/07/24 documented as of this encounter
--- OUTSIDE RECORDS SUMMARY | 2025-04-14 12:54 | XMS_ITS ---
Author Name Karina SHIRLEY, MRS. Schreiber npal Address [address] [place], [place] [address] [address] Phone [phone] Organization [facility]) Care Team Providers Care Racking Machine Operator Name Role Phone Karina Gilbert Unavailable [phone] Robin Thornton Unavailable [phone] [facility] Tier 1 RN (STL), Arlette Lopez navailjhony Unavailable Prim[facility] Home CHW (STL), Amara Lorenzo Unavailable Unavailable VINICIUS PA Unavailable [phone] Reason for Referral Not Available Allergies, adverse [...] bedtime as needed 2024-06-18 No Data Available Muzook[employer] blood glucose monitoring system 0 Use as directed 2024-06-18 No Data Available Albuterol Sulfate HFA 108 (90 Base) MCG/ACT Aerosol Solution Inhalation INHALE 2 PUFFS BY MOUTH EVERY 6 HOURS NEEDED FOR WHEEZING OR SHORTNESS OF BREATH 2024-06-18 No Data Available Linzess 72 MCG Cap TAKE [address] [place] [facility] EVERY DAY 2024-10-22 No Data Available FREESTYLE [...] at least 75 minutes total time on [facility] [place] 06/18/2024 Type 2 diabetes ethel [...] at least 30 minutes total time on [employer] [place] 02/05/2025 Type 2 diabetes ethel itus [...] least 30 minutes total time on [facility] [place] 02/05/2025 Type 2 diabetes ethel itus without complications Home visit for evaluation and management of established patient requiring medically appropriate examination and low level of medical decision making. If using time, at least 30 minutes total time on [facility] [place] 02/05/2025 Morbid (severe) obes ity due to excess calories Vital Signs Date of Collection Vitals 2024-06-18 17:25:00 Height - 168.91 cmWe ight - 125.19 kgBody Mass Index (BMI) - 43.88 kg/l0Qmmqd Rate - 91.0 /minBody Temperature - 36.22 [...] least 75 minutes total time on encounte [address] 2024-06-19 No Data Available No Data Availa ble Home visit for evaluation and management of established patient requiring medically appropriate examination and low level of medical decision making. If using time, at least 30 [place] [address] 2025-02-05 No Data Available No Data Availa [...] (03/2024)continue [employer] Lite glucometer rx placed to rock picker OTCencouraged exercising as tolerateddiscussed eating healthy [...]
--- OUTSIDE RECORDS SUMMARY | 2025-04-14 12:54 | XMS_ITS | Encounter Summary ---
Author Organization [facility] Address [address] [place] [address] Care Team Providers Care Front Office Developer Name Role Phone Tracy Olivares MD Primary Care Provider [phone] Nathan Baig MD Unavailable [phone] Marisel Mancini RN Unavailable [phone] Encounter Details Date Type Department Care Team (Late st Contact Info) Description 01/11/2024 [employer] Message Enc [facility] Multispecialty Care - [place] [address] [facility] [address] [place] [address] Stephanie, [facility] Provider Weight Watchers Social History Tobacco Use [...] Sex Assigned at Female 11/14/2024 10:21 AM DRYWALL FINISHER Legal Sex Female 8:25 PM CDT Gender Identity Female 11/14/2024 10:21 AM DRYWALL FINISHER Sexual Orientation Straight 11/14/2024 10 :21 AM DRYWALL FINISHER documented as of this encounter Plan of Treatment Upcoming Encounters Date Type Department Care Team (Late st Contact Info) Description 05/29/2025 11:00 AM CDT Office Visit [facility] Medical [facility]ology Specialty [facility] - [place] [address] [facility] [address] [place] [address] Nathan Baig MD [address] [address] 07/24/2025 10:40 AM DRYWALL FINISHER Office Visit [facility] Medical [facility] Multispecialty Care - [place] [address] [address] [place] [address] Tracy Olivares MD [facility] [address] documented as of this encounter Visit Diagnoses Not on filedocumented in this encounter Additional Health Concerns Assessment Noted Time PHQ-9 Depression Total Score: 2 09/14/19 24 11:30 AM DRYWALL FINISHER documented as of this encounter Care Teams Front Office Developer Relationship Specialty Start Date End Date Tracy Olivares MD [address] [place] [address] PCP - General INTERNAL MEDICINE 01/02/21 Nathan Baig MD [address] [address] Consulting Physician Internal Medicine Pulmonary Disease 09/16/21 Marisel Mancini, RN [address] [place] [address] Vp Medical (Ambulatory) REGISTERED NURSE 06/28/24 08/07/24 documented as of this encounter
--- OUTSIDE RECORDS SUMMARY | 2025-04-14 12:54 | XMS_ITS | Encounter Summary ---
Author Organization [facility] Address [address] [place] [address] Care Team Providers Care Armament Mechanic Name Role Phone Tracy Olivares MD Primary Care Provider [phone] Nathan Baig MD Unavailable [phone] Marisel Mancini RN Unavailable [phone] Encounter Details Date Type Department Care Team (Late st Contact Info) Description 01/11/2023 [employer] Message Enc [facility] Medical Group Multispecialty Care - [address] [place] [address] Attracta, [facility] Provider lab results Social History [...] Sex Assigned at Female 11/14/2024 10:21 AM AVID EDITOR Legal Sex Female 8:25 PM CDT Gender Identity Female 11/14/2024 10:21 AM AVID EDITOR Sexual Orientation Straight 11/14/2024 10 :21 AM AVID EDITOR COVID-19 Exposure Response Date Recorded In the last 10 days, have yo u been in contact with someone who was confirmed or suspected to have Coronavirus/COVID-19? No / Unsure 01/07/2023 10:56 AM CDT documented as of this encounter Plan of Treatment Upcoming Encounters Date Type Department Care Team (Late st Contact Info) Description 05/29/2025 11:00 AM CDT Office Visit [facility] Medical [facility] Pulmonology Specialty Clinic - [address] [address] Nathan Baig MD [address] [address] 07/24/2025 10:40 AM AVID EDITOR Office Visit [facility] Multispecialty Care [place] [address] [address] [place] [address] Tracy Olivares MD [address] [place] [address] documented as of this encounter Visit Diagnoses Not on filedocumented in this encounter Additional Health Concerns Assessment Noted Time PHQ-9 Depression Total Score: 11 023 1:30 PM CDT documented as of this encounter Care Teams Armament Mechanic Relationship Specialty Start Date End Date Tracy Olivares MD [address] [place] [address] PCP - General INTERNAL MEDICINE 01/02/21 Nathan Baig MD [address] [address] Consulting Physician Internal Medicine Pulmonary Disease 09/16/21 Marisel Mancini, RN [address] [place] [address] House Cleaner (Ambulatory) REGISTERED NURSE 06/28/24 08/07/24 documented as of this encounter
--- OUTSIDE RECORDS SUMMARY | 2025-04-14 12:54 | XMS_ITS | Encounter Summary ---
Author Organization [facility] Address [address] [place] [address] Care Team Providers Care Windows Application Developer Name Role Phone Tracy Olivares MD Primary Care Provider [phone] Nathan Baig MD Unavailable [phone] Marisel Mancini RN Unavailable [phone] Encounter Details Date Type Department Care Team (Latest Contact Info) Description 12/16/2023 [employer] Message Enc [facility] Multispecialty Care - [place] [address] [facility] [address] [place] [address] Stephanie, [facility] Provider referral to rheumatology Social History [...] Sex Assigned at Female 11/14/2024 10:21 AM NURSING TEACHER Legal Sex Female 8:25 PM CDT Gender Identity Female 11/14/2024 10:21 AM NURSING TEACHER Sexual Orientation Straight 11/14/2024 10 :21 AM NURSING TEACHER documented as of this encounter Plan of Treatment Upcoming Encounters Date Type Department Care Team (Late st Contact Info) Description 05/29/2025 11:00 AM CDT Office Visit [facility] Medical [facility] Pulmonology Specialty Clinic - [place] [address] [facility] [address] [place] [address] Nathan Baig MD [address] [address] 07/24/2025 10:40 AM NURSING TEACHER Office Visit [facility] Medical Group Multispecialty Care - [place] [address] [address] [place] [address] Tracy Olivares MD [address] [place] [address] documented as of this encounter Visit Diagnoses Not on filedocumented in this encounter Additional Health Concerns Assessment Noted Time PHQ-9 Depression Total Score: 2 09/14/19 24 11:30 AM NURSING TEACHER documented as of this encounter Care Teams Windows Application Developer Relationship Specialty Start Date End Date Tracy Olivares MD [address] [place] [address] PCP - General INTERNAL MEDICINE 01/02/21 Nathan Baig MD [address] [address] Consulting Physician Internal Medicine Pulmonary Disease 09/16/21 Marisel Mancini, RN [address] [place] [address] Machine Cloth Trimmer (Ambulatory) REGISTERED NURSE 06/28/24 08/07/24 documented as of this encounter
--- OUTSIDE RECORDS SUMMARY | 2025-04-14 12:54 | XMS_ITS | Encounter Summary ---
Author Organization [facility] Address [address] [place] [address] Care Team Providers Care Director Power Name Role Phone Tracy Olivares MD Primary Care Provider [phone] Nathan Baig MD Unavailable [phone] Marisel Mancini RN Unavailable [phone] Encounter Details Date Type Department Care Team (Latest Contact Info) Description 02/11/2021 [employer] Message Enc [facility] Medical Group Multispecialty Care - [place] [address] [place] [address] [address] [place] [address] Tracy Olivares MD [address] [facility] [address] [place] [address] medication refilled. Social History Tobacco [...] Sex Assigned at Female 11/14/2024 10:21 AM PALLET RECTIFIER Legal Sex Female 8:25 PM CDT Gender Identity Female 11/14/2024 10:21 AM PALLET RECTIFIER Sexual Orientation Straight 11/14/2024 10 :21 AM PALLET RECTIFIER COVID-19 Exposure Response Date Recorded In the last month, have you been in contact with someone who was confirmed or suspected to have Coronavirus / COVID-19? No / Unsure 02/06/2021 1:55 PM CDT documented as of this encounter Plan of Treatment Upcoming Encounters Date Type Department Care Team (Late st Contact Info) Description 05/29/2025 11:00 AM CDT Office Visit [facility] Medical [facility] Pulmonology Specialty Clinic - [place] [address] [address] Nathan Baig MD [address] [address] 07/24/2025 10:40 AM PALLET RECTIFIER Office Visit [facility] Multispecialty Care [place] [address] [address] [place] [address] Tracy Olivares MD Count includes the [facility] [address] documented as of this encounter Visit Diagnoses [...] as of this encounter Care Teams Director Power Relationship Specialty Start Date End Date Tracy Olivares MD [address] [place] [address] PCP - General INTERNAL MEDICINE 01/02/21 Nathan Baig MD [address] [id number] Consulting Physician Internal Medicine Pulmonary Disease 09/16/21 Marisel Mancini, RN [address] [place] [address] Routeman (Ambulatory) REGISTERED NURSE 06/28/24 08/07/24 documented as of this encounter
--- OUTSIDE RECORDS SUMMARY | 2025-04-14 12:54 | XMS_ITS | Clinical Summary ---
Author Organization [facility] Address [address] [place] [address] Phone Care Team Providers Care Chief Controller Station Name Role Phone Tracy Olivares MD Primary Care Provider [phone] Allergies Active Allergy Reactions Criticality Noted Date [...] PNEUM OCOCCAL CONJUGATE VACCINE 20-VALENT (PCV20), POLYSACCHARIDE VQF911 CONJUGATE, ADJUVANT 0.5 ML (PF) IM 07/10/2024 [...] Comments Blood Pressure 122/82 10/04/2024 10:05 AM ETHNOARCHAEOLOGY PROFESSOR Pulse 62 10/04/2024 10:05 AM ETHNOARCHAEOLOGY PROFESSOR Temperature 36.8 C (98.2 F) 07/10/2024 11:59 AM CDT Respiratory Rate 18 07/10/2024 11:59 AM CDT Oxygen Saturation 96% 10/04/2024 10:05 AM ETHNOARCHAEOLOGY PROFESSOR Inhaled Oxygen Concentration - - Weight 121.6 kg (268 lb) 10/04/2024 10:05 AM ETHNOARCHAEOLOGY PROFESSOR Height 167.6 cm (5' 6) 10/04/2024 10:05 AM ETHNOARCHAEOLOGY PROFESSOR Body Mass Index 43.26 10/04/2024 10:05 AM ETHNOARCHAEOLOGY PROFESSOR Plan of Treatment Health Maintenance Due Date [...] , 04/02/2022, 03/03/2021, Additional history exists Insurance [facility] PPO MCR Advance Directives For more information, please contact: [phone] * Full Code (Latest Code Status on File) Date Activated Date Inactivated Comments 06/28/2024 11:06 AM 07/10/2024 3:01 PM * Full Code Date Activated Date Inactivated Comments 06/27/2024 6:03 AM 06/28/2024 11:06 AM * Default Full Code - Needs Discussion Date Activated Date Inactivated Comments 06/27/2024 1:09 AM 06/27/2024 6:03 AM Care Teams Chief Controller Station Relationship Specialty Start Date End Date Tracy Olivares MD [address] [facility] 100 [place] [address] PCP - General Internal Medicine 07/02/24
--- OUTSIDE RECORDS SUMMARY | 2025-04-14 12:54 | XMS_ITS | Encounter Summary ---
Author Organization [facility] Address [address] [place] [address] Care Team Providers Care Printed Circuit Layout Taper Name Role Phone Tracy Olivares MD Primary Care Provider [phone] Nathan Baig MD Unavailable [phone] Marisel Mancini RN Unavailable [phone] Encounter Details Date Type Department Care Team (Late st Contact Info) Description 03/14/2024 MyChart Message Enc [facility] Multispecialty Care - [place] [address] [place] [address] Alesia Rosario, GLORIA [address] [place] [address] call Social History Tobacco Use [...] Sex Assigned at Female 11/14/2024 10:21 AM PLUMBING DESIGNER Legal Sex Female 8:25 PM CDT Gender Identity Female 11/14/2024 10:21 AM PLUMBING DESIGNER Sexual Orientation Straight 11/14/2024 10 :21 AM PLUMBING DESIGNER documented as of this encounter Plan of Treatment Upcoming Encounters Date Type Department Care Team (Late st Contact Info) Description 05/29/2025 11:00 AM CDT Office Visit [facility] Pulmonology Specialty Clinic - [address] [address] Nathan Baig MD [address] [address] 07/24/2025 10:40 AM PLUMBING DESIGNER Office Visit [facility] Multispecialty Care [place] [address] [address] [place] [address] Tracy Olivares MD [facility] [address] [address] documented as of this encounter Visit Diagnoses Not on filedocumented in this encounter Additional Health Concerns Assessment Noted Time PHQ-9 Depression Total Score: 2 09/14/19 24 11:30 AM PLUMBING DESIGNER documented as of this encounter Care Teams Printed Circuit Layout Taper Relationship Specialty Start Date End Date Tracy Olivares MD [address] [place] [address] PCP - General INTERNAL MEDICINE 01/02/21 Nathan Baig MD [address] [address] Consulting Physician Internal Medicine Pulmonary Disease 09/16/21 Marisel Mancini, RN [address] [place] [address] Cert Pharmacy Tech (Ambulatory) REGISTERED NURSE 06/28/24 08/07/24 documented as of this encounter
--- OUTSIDE RECORDS SUMMARY | 2025-04-14 12:54 | XMS_ITS | Referral Summary ---
Author Organization [facility] Address [address] [place] [address] Care Team Providers Care Engine Head Repairer Name Role Phone Omid Douglass MD Primary Care Provider [phone] Nathan Baig MD Unavailable [phone] Tracy Olivares MD Unavailable Allergies Active Allergy [...] 06/27/2024 Assessment & Plan (07/16/2024 1:40 PM PACKAGER): BP stable. Previously on losartan 100mg, hydrochlorothiazide [...] (Completed) Assessment & Plan (07/23/2024 1:41 PM PACKAGER): L4-L5 Osteomyelitis/discitis with epidural phlegmon. S/p IR [...] patches. Assessment & Plan (07/16/2024 1:36 PM PACKAGER): L4-L5 Osteomyelitis/discitis with epidural phlegmon. S/p IR [...] well controlled. Continue Tyl 1000mg BID, PRN [place] q8h, Increase Gabapentin to 300mg TID, Schedule Flexeril TID, & start Lidoderm patch. Assessment & Plan (07/14/2024 2:58 PM CDT): Subacute, currently stable. Continue cefepime 2 g IV every 12 hours, cyclobenzaprine 10 mg t.i.d. p.r.n. spasm, gabapentin and [place] as scripted. Consult physical and occupational therapy [...] sciatica Assessment & Plan (07/16/2024 1:39 PM PACKAGER): Increased, SEE ABOVE Social History Tobacco Use [...] on file Legal Sex Female 12:03 AM PACKAGER Gender Identity Not on file Sexual Orientation Not on file Last Filed Vital Signs Vital Sign Reading Time Taken Comments Blood Pressure 168/103 10/15/2024 8:45 AM PACKAGER Pulse 95 10/15/2024 8:45 AM PACKAGER Temperature 36.4 C (97.6 F) 10/15/2024 8:45 AM PACKAGER Respiratory Rate 18 07/31/2024 11:32 AM PACKAGER Oxygen Saturation 99% 10/15/2024 8:45 AM PACKAGER Inhaled Oxygen Concentration - - Weight 124 kg (273 lb 6.4 oz) 10/15/2024 8:45 AM PACKAGER Height 167.6 cm (5' 5.98) 10/15/2024 8:45 AM CS T Body Mass Index 44.15 10/15/2024 8:45 AM PACKAGER Plan of Treatment Not on file Procedures Procedure Name Priority Date/Time Associated Diagnosis Comments EGFR Routine 10/15/2024 9:51 AM PACKAGER Osteomyelitis of lumbar spine (HCC) from Last 3 Months or Most Recently Relevant to Health Maintenance Results * eGFR (10/15/2024 9:51 AM PACKAGER) eGFR 81 >=60 mL/min/1. 73 m2 Comment: [...] last reviewed 2021. Blood 10/15/2024 9:51 AM PACKAGER 10/15/2024 12:55 PM PACKAGER us Mia Sanchez MD LAB BLOOD ORDERABLES Final Result [facility] Department [place] [address] from Last 3 Months or Most Recently Relevant to Health Maintenance Insurance [employer] PPO [employer] P[employer] Advance Directives For more information, please contact: [phone] * Full Code (Latest Code Status on File) Date Activated Date Inactivated Comments 07/30/2024 11:54 PM 07/31/2024 4:45 PM Care Teams Engine Head Repairer Relationship Specialty Start Date End Date Omid Douglass MD [facility] [place] [address] PCP - General 12/15/11 Nathan Baig MD 3 [facility] [address] [place] [address] Pulmonary Disease 08/15/24 Tracy Olivares MD [address] [facility] [address] [place] [address] Internal Medicine 08/15/24
--- NOTE | 2025-04-14 13:43 | ED_ITS ---
HPI - General Adult General Chief complaint: Unspecified Stated complaint: GROIN PAIN Time Seen by Provider: 04/14/25 12:35 History of Present Illness HPI narrative: 69-year-old female present to the emergency department for evaluation for worsening right groin pain. Patient does have history of prolapse but states she is not currently prolapsed. Patient denies any burning with urination. Patient denies any falls or injuries. Patient does have pain at her right thigh that has been worsening over the last few weeks. Patient denies any falls or injuries Related Data Home Medications ?Medication ?Instructions ?Recorded ?Confirmed ?Last Taken ?Type aspirin 81 mg tablet,delayed 81 mg PO DAILY 10/29/19 12/28/24 Unknown History release fluticasone fur. 100 mcg-umeclid 100 inh inhalation DAILY 01/06/21 12/28/24 Unknown History 62.5 mcg-vilant 25 mcg inhalat.powder (Trelegy Ellipta) losartan 100 12.5 tablet PO DAILY 01/06/21 12/28/24 Unknown History mg-hydrochlorothiazide 12.5 mg tablet albuterol sulfate 90 mcg/actuation 2 puff inhalation PRN 05/16/21 12/28/24 Unknown History aerosol inhaler atorvastatin 20 mg tablet 20 mg PO DAILY 08/23/23 12/28/24 Unknown History cholecalciferol (vitamin D3) 50 50 mcg PO DAILY 08/23/23 12/28/24 Unknown History mcg (2,000 unit) capsule azelastine 137 mcg (0.1 %) nasal 137 mcg intranasal Q12H 12/15/23 12/28/24 Unkn own History spray empagliflozin 25 mg tablet 25 mg PO DAILY 12/15/23 12/28/24 Unknown History (Jardiance) fluticasone propionate 50 1 spray intranasal DAILY 12/15/23 12/28/24 Unknown H istory mcg/actuation nasal spray,suspension (Children's Flonase Allergy Relief) gabapentin 300 mg capsule 300 mg PO BID 02/28/24 12/28/24 Unknown History esomeprazole magnesium 40 mg mg 11/23/24 Unknown History capsule,delayed release hydrocodone 5 mg-acetaminophen 325 1 tablet PO PRN 11/23/24 12/28/24 Unknown History mg tablet mirabegron 50 mg tablet,extended 50 mg PO Q24H 11/23/24 12/28/24 Unknown History release 24 hr Allergies Allergy/AdvReac Type Severity Reaction Status Date / Time meloxicam Allergy Intermediate Itching Verified 12/28/24 08:38 celecoxib (From Celebrex) Allergy Mild itching Verified 12/28/24 08:38 Review of Systems Review of Systems: All systems reviewed & are unremarkable except as noted in HPI and below PMFSH Past Medical History Medical History Constipation Sciatica Arthritis, lumbar spine Colon cancer screening Epigastric pain FAISAL treated with BiPAP Shingles Anemia Depression Anxiety DM (diabetes mellitus) Bilateral carpal tunnel syndrome DDD (degenerative disc disease) Arthritis Endometriosis IBS (irritable bowel syndrome) History of rectal polyps GERD (gastroesophageal reflux disease) Bronchitis Asthma Emphysema, unspecified H/O: HTN (hypertension) History of irregular heartbeat MVP (mitral valve prolapse) Surgical History Surgical History History of local excision of skin lesion History of bilateral carpal tunnel release History of oophorectomy Rt. History of dilation and curettage History of hysterectomy Hx of tubal ligation History of cholecystectomy History of appendectomy Family History Family History Father Malignant neoplasm of prostate Mother Hypertension Diabetes mellitus Sibling Family history of elevated blood lipids Family history of diabetes mellitus in first degree relative Father Family history of diabetes mellitus in first degree relative Patient's father is Other Family history of malignant neoplasm of cervix Family history of malignant neoplasm of male breast Social History Social History Social History: the patient is . The patient initially had 5 children but 1 14 hours after due to placenta abruption. The patient is disabled. She desires to have her daughter is a durable power director [employer]. She would like to be a full code. The patient used marijuana in the past but does not anymore and she used to smoke cigarettes as well but quit. She does not use any alcohol or illicit drugs. Smoking packs per day: 2 Smoking cigarettes per day: 40.0 Years smoked: 15 Smoking pack-years: 30.00 Smoking status: Former smoker Tobacco type: cigarettes Second hand tobacco smoke exposure: Yes Smoking end date: 09/12/83 Alcohol intake: never Substance use: former Substance use type: does not use Do You Feel Safe in your Home?: Yes Lack of Transportation: No Lack of Food: Never True Current Housing: I Have Housing Concerned About Future Housing: No Difficulty Paying Gas/Electric Bills: No Difficulty Paying for Meds: YES Currently Unemployed: No Education: Decline to Answer Difficulty w/ Childcare or Family Care: No Living arrangements: alone Occupation/Education: retired Gender identity (if verbalized by the patient): Female Sexual Orientation (if Verbalized by the Patient): Straight or Heterosexual Spiritual care concerns: No Exam Narrative: APPEARANCE: Well appearing, no pain, no distress, well-nourished. HEAD: normocephalic, atraumatic. EYES: PERRLA/EOMI, conjunctivae clear. NOSE: Normal no drainage EARS:TMS clear with good light reflex. THROAT: Pharynx clear, no exudate. NECK: Supple. No adenopathy, no masses. RESPIRATORY: Airway patent, respirations nonlabored. Clear to auscultation bilaterally, no rales, rhonchi, wheezing. CARDIOVASCULAR: Regular rate and rhythm without murmurs rubs or gallops. ABDOMINAL: Soft, nontender, nondistended, normal bowel sounds MUSCULOSKELETAL: Tenderness to her proximal right thigh NEURO: Alert. Cranial nerves II through XII intact. Good gait. Good coordination SKIN: Warm, dry. Normal Color Course Vital Signs Vital signs: Vital Signs Temperature 97.6 F 04/14/25 15:45 Pulse Rate 64 04/14/25 15:45 Respiratory Rate 18 04/14/25 15:45 Blood Pressure 155/88 H 04/14/25 15:45 Pulse Oximetry 99 04/14/25 15:45 Temperature 97.6 F 04/14/25 15:45 Pulse Rate 64 04/14/25 15:45 Respiratory Rate 18 04/14/25 15:45 Blood Pressure 155/88 H 04/14/25 15:45 Pulse Oximetry 99 04/14/25 15:45 Medical Decision Making [facility] Narrative Medical decision making narrative: 69-year-old female presents emergency department for evaluation for right hip pain. Patient does have a large lipoma of the right hip. Patient will be referred to surgery as outpatient. Differential Diagnosis Differential Diagnosis: Lipoma, abscess, muscular strain Vital Signs Vital Signs: Vital Signs Temperature 97.6 F 04/14/25 15:45 Pulse Rate 64 04/14/25 15:45 Respiratory Rate 18 04/14/25 15:45 Blood Pressure 155/88 H 04/14/25 15:45 Pulse Oximetry 99 04/14/25 15:45 Temperature 97.6 F 04/14/25 15:45 Pulse Rate 64 04/14/25 15:45 Respiratory Rate 18 04/14/25 15:45 Blood Pressure 155/88 H 04/14/25 15:45 Pulse Oximetry 99 04/14/25 15:45 Imaging Data Radiologist's impression: Impressions Abdomen/Pelvis CT 04/14/25 15:19 IMPRESSION: Trace pericardial effusion. Polypoid centimeters lipoma in the proximal right hip, recommend surgical referral for potential excision based on size. Discharge Plan Discharge Clinical Impression: Lipoma of right thigh Patient Disposition: Home Condition: Stable Instructions: Antibiotic Form, Lipoma (ED) Additional Instructions: Have close follow-up with surgery as outpatient for evaluation of the lipoma in your right thigh. Patient Language: German Prescriptions: No Action aspirin 81 mg Tablet,Delayed Release (Dr/Ec) 81 mg PO DAILY albuterol sulfate 90 mcg/actuation HFA aerosol inhaler 2 puff INHALATION PRN atorvastatin 20 mg tablet 20 mg PO DAILY cholecalciferol (vitamin D3) 50 mcg (2,000 unit) capsule 50 mcg PO DAILY hydrocodone-acetaminophen 5-325 mg tablet 1 tablet PO PRN esomeprazole magnesium 40 mg capsule,delayed release(DR/EC) mirabegron 50 mg tablet extended release 24 hr 50 mg PO Q24H benzonatate 100 mg capsule 100 mg PO BID PRN (Reason: cough) Qty: 14 0RF fluticasone propionate [Flonase Allergy Relief] 50 mcg/actuation spray,suspension 1 spray intranasal DAILY Qty: 16 0RF Rx Instructions: administer into each nostril Linzess 72 mcg capsule 72 mcg PO DAILY 30 Days Qty: 30 5RF famotidine 20 mg tablet 60 mg PO DAILY 30 Days Qty: 90 11RF Rx Instructions: take one tablet in the morning and two tablets in the evening azelastine 137 mcg (0.1 %) aerosol,spray 137 mcg intranasal Q12H Patient Comments: takes prn Rx Instructions: administer into each nostril fluticasone propionate [Children's Flonase Allergy Rlf] 50 mcg/actuation spray,suspension 1 spray intranasal DAILY Rx Instructions: administer into each nostril Jardiance 25 mg tablet 25 mg PO DAILY gabapentin 300 mg capsule 300 mg PO BID Patient Comments: takes prn acetaminophen 500 mg capsule 500 mg PO Q6H PRN (Reason: pain) Qty: 20 0RF losartan-hydrochlorothiazide 100-12.5 mg tablet 12.5 tablet PO DAILY Trelegy Ellipta 100-62.5-25 mcg blister with device 100 inh INHALATION DAILY Follow-up/Referrals: Elise,MD Tracy [Primary Care Provider] - Lebron Christopher MD [Physician] -
[2025-04-14 15:45] VITALS: BP 155/88; PULSE 64; RESP 18; TEMP 36.4; O2SAT 99
== END 2025-04-14 15:55 | disposition home or self-care (01) ==
PROVIDERS: Emergency Provider Emergency Medicine; PCP Internal Medicine
DX: D17.23 Benign lipomatous neoplasm of skin and subcutaneous tissue of right leg (principal); G47.33 Obstructive sleep apnea (adult) (pediatric); E11.9 Type 2 diabetes mellitus without complications; K21.9 Gastro-esophageal reflux disease without esophagitis; J45.909 Unspecified asthma, uncomplicated; I10 Essential (primary) hypertension; Z87.891 Personal history of nicotine dependence
CPT/HCPCS: 74176; 99284

== ENCOUNTER 2025-05-16 09:48 | Outpatient (CLI) | payer OTHER, MEDICAID, SELFPAY ==
--- NOTE | ~2025-05-16 | MM_ITS ---
EXAMINATION: screening [facility] BI w gunjan HISTORY: Screening TECHNIQUE: Craniocaudal and mediolateral oblique 3-D tomosynthesis images were obtained and synthetic 2-D images were generated. CAD analysis was submitted and interpreted. COMPARISON: Mammograms from 05/10/2024 and 08/25/2021 BREAST PARENCHYMAL COMPOSITION: Not Dense: The breasts are almost entirely fatty. FINDINGS: There is no evidence of suspicious mass, or architectural distortion to suggest malignancy in either breast. The study is limited due to patient positioning. Indeterminate calcifications in the upper-outer quadrant of the left breast, middle depth. IMPRESSION: 1. Indeterminate calcifications in the upper outer quadrant of the left breast. The study is incomplete. A diagnostic left breast mammogram is recommended. 2. No mammographic evidence for malignancy in the right breast. BI-RADS Category 0: Incomplete-need additional imaging evaluation Reviewed, dictated, and finalized at Location A. Reviewed, dictated and finalized at location Q.
== END 2025-05-16 09:49 | disposition home or self-care (01) ==
LOC: MICIMG 09:49
PROVIDERS: PCP Internal Medicine; Visit Provider Internal Medicine
DX: Z12.31 Encounter for screening mammogram for malignant neoplasm of breast (principal); R92.8 Other abnormal and inconclusive findings on diagnostic imaging of breast
CPT/HCPCS: 77063; 77067

== ENCOUNTER 2025-06-27 08:35 | Outpatient (CLI) | payer OTHER, MEDICAID, SELFPAY ==
--- NOTE | ~2025-06-27 | MM_ITS ---
EXAMINATION: MM diagnostic amy LT w gunjan HISTORY: Conclusive mammogram TECHNIQUE: Additional images of the left breast]] were performed using full field digital mammography. 3-D tomosynthesis were also obtained and synthetic 2- D images were generated. COMPARISON: Mammograms from 05/16/2025, 05/10/2024 and 02/02/2023 BREAST PARENCHYMAL COMPOSITION: The breasts are extremely dense which lowers the sensitivity of mammography. FINDINGS: MAMMOGRAPHIC FINDINGS: Probably benign grouping of calcifications in the upper outer quadrant of the left breast, middle to posterior depth. IMPRESSION/RECOMMENDATION: 1. Probably benign calcifications in the left breast. A diagnostic left breast mammogram in 6 months is recommended. BI-RADS 3-Probably benign-Short interval follow-up suggested. Reviewed, dictated and finalized at location Q. IMPRESSION/RECOMMENDATION: 1. Probably benign calcifications in the left breast. A diagnostic left breast mammogram in 6 months is recommended. BI-RADS 3-Probably benign-Short interval follow-up suggested.
== END 2025-06-27 08:36 | disposition home or self-care (01) ==
LOC: MICIMG 08:36
PROVIDERS: PCP Internal Medicine; Visit Provider Internal Medicine
DX: R92.8 Other abnormal and inconclusive findings on diagnostic imaging of breast (principal)
CPT/HCPCS: 77061; 77065; G0279

== ENCOUNTER 2025-08-16 10:03 | Outpatient (CLI) | payer OTHER, MEDICAID, SELFPAY ==
--- NOTE | ~2025-08-16 | XR_ITS ---
[id number] 08/16/2025 10:56 Indication: Joint pain Procedure: 2 views right knee Comparison: No prior studies for comparison. Findings: Moderate-severe tricompartment osteoarthritis of the right knee. No fracture, subluxation or dislocation. No significant joint effusion. No foreign bodies. There are loose bodies posterior to the joint space. Impression: 1: Moderate-severe tricompartment osteoarthritis. Reviewed, dictated and finalized at location I. NEY BUILDER HELPER Impression: 1: Moderate-severe tricompartment osteoarthritis.
--- NOTE | ~2025-08-16 | XR_ITS ---
XR shoulder LT min 2V 08/16/2025 10:56 Indication: Left shoulder pain Procedure: 2 views left shoulder Comparison: 12/15/2023 Findings: There is severe left glenohumeral joint osteoarthritis. No fracture, subluxation or dislocation. There is anatomic alignment. No soft tissue abnormality. Impression: 1: Severe left glenohumeral joint osteoarthritis. Reviewed, dictated and finalized at location I. ACUTE CARE REGISTERED NURSE Impression: 1: Severe left glenohumeral joint osteoarthritis.
--- NOTE | ~2025-08-16 | XR_ITS ---
[id number] 08/16/2025 10:56 Indication: Joint pain Procedure: 2 views left knee Comparison: No prior studies for comparison. Findings: Mild tricompartment osteoarthritis. No fracture, subluxation or dislocation. No significant joint effusion. Impression: 1: Mild tricompartment osteoarthritis of the left knee. Reviewed, dictated and finalized at location I. INE BENDER Impression: 1: Mild tricompartment osteoarthritis of the left knee.
--- NOTE | ~2025-08-16 | XR_ITS ---
XR foot RT 2V 08/16/2025 10:55 Indication: Joint pain Procedure: 2 views right foot Comparison: No prior studies for comparison. Findings: There is mild polyarticular osteoarthritis most advanced at the first MTP joint. No fracture, subluxation or dislocation. Lisfranc joint intact. Prominent degenerative calcaneal enthesophyte at the plantar surface. No soft tissue abnormality. No foreign bodies. Impression: 1: Mild polyarticular osteoarthritis. Reviewed, dictated and finalized at location I. OSURGERY RESEARCH DIRECTOR Impression: 1: Mild polyarticular osteoarthritis.
--- NOTE | ~2025-08-16 | XR_ITS ---
EXAMINATION: XR hand RT 2V, XR wrist LT 2V, XR wrist RT 2V, XR hand LT 2V DATE: 08/16/2025 10:55 INDICATION: Multiple joint pain TECHNIQUE: 1. Posteroanterior and lateral views of the left wrist were obtained. 2. Dorsal palmar and lateral views of the left hand were obtained. 3. Posteroanterior and lateral views of the right wrist were obtained. 4. Dorsal palmar and lateral views of the right hand were obtained. COMPARISON: None. FINDINGS: Left hand and wrist: 2 mm ulnar minus variance. Alignment of the left hand and wrist is otherwise normal. No fracture identified. Subtle chondrocalcinosis region of the triangular fibrocartilage complex. Polyarticular osteoarthritis, severe at the first interphalangeal joint, moderate severity at the second and third distal interphalangeal joints and mild at the wrist, triscaphe, first carpometacarpal and remaining interphalangeal joints. No erosions. No focal soft tissue swelling. Right hand and wrist: 3 mm ulnar minus variance. Alignment of the right hand and wrist is otherwise normal. No fracture identified. Polyarticular osteoarthritis, severe at the first interphalangeal joint, moderate severity at the third metacarpophalangeal and second distal interphalangeal joints and mild at the wrist, triscaphe, first carpometacarpal, first metacarpophalangeal and at remaining interphalangeal joints. Erosion at the ulnar styloid process. No focal soft tissue swelling. IMPRESSION: 1. Polyarticular osteoarthritis as detailed above, severe at the bilateral first interphalangeal joints and mild to moderate at many of the remaining joints at the bilateral hands and wrists. 2. Single nonspecific erosion at the right ulnar styloid process. Differential would include an inflammatory arthritis or crystalline arthritis such as gout or calcium pyrophosphate deposition (CPPD) disease. Given the absence of additional periarticular erosions throughout the remainder of the bilateral hands and wrists and the presence of chronic calculus at the right triangular fibrocartilage complex would favor the latter. Reviewed, dictated and finalized at location A. NESS LINE CONTROLLER IMPRESSION: 1. Polyarticular osteoarthritis as detailed above, severe at the bilateral firs t interphalangeal joints and mild to moderate at many of the remaining joints a t the bilateral hands and wrists. 2. Single nonspecific erosion at the right ulnar styloid process. Differential would include an inflammatory arthritis or crystalline arthritis such as gout o r calcium pyrophosphate deposition (CPPD) disease. Given the absence of additio nal periarticular erosions throughout the remainder of the bilateral hands and wrists and the presence of chronic calculus at the right triangular fibrocartil age complex would favor the latter. IMPRESSION: 1. Polyarticular osteoarthritis as detailed above, severe at the bilateral firs t interphalangeal joints and mild to moderate at many of the remaining joints a t the bilateral hands and wrists. 2. Single nonspecific erosion at the right ulnar styloid process. Differential would include an inflammatory arthritis or crystalline arthritis such as gout o r calcium pyrophosphate deposition (CPPD) disease. Given the absence of additio nal periarticular erosions throughout the remainder of the bilateral hands and wrists and the presence of chronic calculus at the right triangular fibrocartil age complex would favor the latter. IMPRESSION: 1. Polyarticular osteoarthritis as detailed above, severe at the bilateral firs t interphalangeal joints and mild to moderate at many of the remaining joints a t the bilateral hands and wrists. 2. Single nonspecific erosion at the right ulnar styloid process. Differential would include an inflammatory arthritis or crystalline arthritis such as gout o r calcium pyrophosphate deposition (CPPD) disease. Given the absence of additio nal periarticular erosions throughout the remainder of the bilateral hands and wrists and the presence of chronic calculus at the right triangular fibrocartil age complex would favor the latter.
--- NOTE | ~2025-08-16 | XR_ITS ---
XR shoulder RT min 2V 08/16/2025 10:56 Indication: Right shoulder pain Procedure: 2 views right shoulder Comparison: 12/10/2023 Findings: Moderate polyarticular osteoarthritis of the shoulder most advanced at the glenohumeral joint. No acute fracture or traumatic malalignment. There is anatomic alignment. No soft tissue abnormality. No foreign body. Impression: 1: Polyarticular osteoarthritis, moderate at the glenohumeral joint. Reviewed, dictated and finalized at location I. A JOB TITLES Impression: 1: Polyarticular osteoarthritis, moderate at the glenohumeral joint.
--- NOTE | ~2025-08-16 | XR_ITS ---
XR foot LT 2V 08/16/2025 10:55 Indication: Joint pain Procedure: 2 views left foot Comparison: No prior studies for comparison. Findings: There is mild polyarticular osteoarthritis. There is prominent degenerative calcaneal enthesophyte at the plantar surface. Lisfranc joint intact. Osteopenia. No fracture, subluxation or dislocation. No soft tissue abnormality. No foreign bodies. Impression: 1: Mild polyarticular osteoarthritis. Reviewed, dictated and finalized at location I. P YARD WORKER Impression: 1: Mild polyarticular osteoarthritis.
== END 2025-08-16 10:04 | disposition home or self-care (01) ==
LOC: MICIMG 10:05
PROVIDERS: PCP Internal Medicine; Visit Provider Internal Medicine Rheumatology
DX: M19.071 Primary osteoarthritis, right ankle and foot (principal); M19.072 Primary osteoarthritis, left ankle and foot; M19.012 Primary osteoarthritis, left shoulder; M19.011 Primary osteoarthritis, right shoulder; M17.0 Bilateral primary osteoarthritis of knee; M19.031 Primary osteoarthritis, right wrist; M19.032 Primary osteoarthritis, left wrist
CPT/HCPCS: 73030; 73100; 73120; 73560; 73620